=== PATIENT | female | born 1955 | race African-American/Black ===

== ENCOUNTER 2016-10-27 20:13 | Emergency (ER) | payer OTHER ==
[2016-10-27 20:29] VITALS: BP 99/58; PULSE 91; TEMP 97.7; BMI 18.1
[2016-10-27] MEDS ORDERED: guaiFENesin/CODEINE 10 ML UNIT-DOSE CUPS PO ONE (21:45)
[2016-10-27] MEDS ORDERED: guaiFENesin/CODEINE 5 ML UNIT-DOSE CUPS PO ONE (21:50)
--- NOTE | 2016-10-27 21:52 | PDOC ---
History of Present Illness - General Chief Complaint: Cold Symptoms Stated Complaint: COUGH/HEADACHE Time Seen by Provider: 10/27/16 21:32 History Source: Patient - History of Present Illness Timing/Duration: reports: other Associated Symptoms: reports: cough, headache. denies: chest pain/soreness, dizziness, earache, facial pain, fever/chills, lightheadedness, muscle aches, nasal congestion, nasal drainage, sore throat, wheezing Past History - Past Medical History Allergies/Adverse Reactions: Allergies Allergy/AdvReac Type Severity Reaction Status Date / Time Penicillins Allergy Unknown Swelling Verified 10/27/16 20:25 [facility] AdvReac Uncoded 10/27/16 20:25 Home Medications: Ambulatory Orders Ritonavir [Norvir] 100 mg PO DAILY 02/09/16 Albuterol 0.083% Nebulizer Olivia [Ventolin 0.083% Nebulizer Soln -] 1 amp NEB Q4H PRN #120 amp 02/12/16 Nebulizer/Compressor [Innospire Deluxe Caitlyn Neb] 1 each MC Q4H #1 each Loratadine [Claritin -] 10 mg PO DAILY #30 tablet 02/14/16 Beclomethasone Dipropionate [Qvar] 1 puff IH BID #1 aer.w.adap 02/26/16 Clotrimazole [Mycelex -] 10 mg PO 5XD #70 [place]ia [place] carmen 02/26/16 Guaifenesin Dm [Robitussin Dm -] 10 ml PO Q4H PRN #120 cup 02/26/16 Inhaler, Assist Devices [Space Chamber Plus] 1 each MC PRN #1 spacer 02/26/16 Diphenhydramine HCl [Benadryl -] 25 mg PO Q6H #20 capsule 03/11/16 Abacavir Sulfate/Lamivudine [Epzicom Tablet] 1 tablet PO DAILY #30 tablet Darunavir Ethanolate [Prezista -] 800 mg PO DAILY #30 tablet 06/26/16 Lactose-Reduced Food [Ensure Liquid] 237 ml PO BID #60 liquid 06/26/16 Ritonavir [Norvir -] 100 mg PO DAILY #30 tab 06/26/16 Tenofovir Disoproxil Fumarate [Viread] 150 mg PO DAILY #30 tablet 06/26/16 Valacyclovir HCl [Valtrex -] 500 mg PO DAILY #30 tablet 06/26/16 Olanzapine [Zyprexa] 5 mg PO DAILY #30 tablet MDD 1 07/24/16 Zolpidem Tartrate [Ambien] 10 mg PO HS #30 tablet MDD 1 07/24/16 Cyproheptadine [Periactin -] 4 mg PO HS #30 tablet 09/26/16 Guaifenesin Dm [Robitussin Dm] 10 ml PO Q4H #1 bottle 09/26/16 Albuterol Sulfate Inhaler - [Ventolin HFA Inhaler -] 1 - 2 inh PO Q4H #1 inhaler 10/27/16 Guaifenesin AC [Robitussin AC -] 5 ml PO Q4H #473 ml MDD 40ml 10/27/16 Ibuprofen [Motrin -] 800 mg PO Q6H #30 tablet 10/27/16 Anemia: Yes Asthma: No Cancer: No Cardiac Disorders: No CVA: No COPD: Yes CHF: No Dementia: No Diabetes: No GI Disorders: Yes (ANOREXIA,ESOPHAGEAL PROBLEM) Disorders: No HTN: Yes Hypercholesterolemia: No HIV: Yes Liver Disease: No Psychiatric Problems: Yes (ANXIETY) Seizures: No Thyroid Disease: No Other medical history: anorexia - Surgical History Abdominal Surgery: Yes (EXPLORATORY) Appendectomy: No Cardiac Surgery: No Cholecystectomy: No Lung Surgery: No Neurologic Surgery: No Orthopedic Surgery: No - Psycho/Social/Smoking Cessation Hx Anxiety: No Suicidal Ideation: No Smoking Status: No Smoking History: Current some day smoker Have you smoked in the past 12 months: Yes Number of Cigarettes Smoked Daily: 1 If you are a former smoker, when did you quit?: Approx. 2 weeks ago. Cigars Per Day: 0 Information on smoking cessation initiated: No 'Breaking Loose' booklet given: 08/06/15 Hx Alcohol Use: No Drug/Substance Use Hx: No Substance Use Type: None Hx Substance Use Treatment: No Respiratory Specific PMHX - Complaint Specific PMHX Pneumonia: No Review of Systems - Review of Systems Constitutional: No: Chills, Fever HEENTM: No: Blurred Vision, Ear Pain, Throat Pain Respiratory: Yes: Cough. No: Shortness of Breath, Wheezing Cardiac (ROS): No: Chest Pain Neurological: Yes: Headache. No: Dizziness *Physical Exam - Vital Signs Last Vital Signs Temp Pulse Resp BP Pulse Ox 97.7 F 91 H 20 99/58 97 10/27/16 20:27 10/27/16 20:27 10/27/16 20:27 10/27/16 20:27 10/27/16 20:27 - Physical Exam Comments: 10/27/16 21:51 chronically ill appearing, thin female General Appearance: Yes: Appropriately Dressed. No: Apparent Distress HEENT: positive: EOMI, Normal Voice. negative: Scleral Icterus (R), Scleral Icterus (L) Neck: positive: Supple. negative: Lymphadenopathy (R), Lymphadenopathy (L) Respiratory/Chest: positive: Lungs Clear, Normal Breath Sounds. negative: Respiratory Distress, Wheezing Cardiovascular: positive: Regular Rate, S1, S2 Integumentary: positive: Dry, Warm Neurologic: positive: Fully Oriented, Alert, Normal Mood/Affect, Motor Strength 5/5 ED Treatment Course - RADIOLOGY Radiology Studies Ordered: Category Date Time Status HEAD CT WITHOUT CONTRAST [CT] Stat CT Scan 10/27/16 21:45 Ordered Medical Decision Making - Medical Decision Making 10/27/16 21:47 61-year-old female, current every day smoker, COPD, HIV/AIDS, non-compliant with antiretroviral therapy, does not remember her last CD4/viral load, anemia, hypertension, pneumonia, sepsis, presenting with cough. Patient reports productive cough 6 weeks. Denies hemoptysis, wheezing, shortness of breath, fever or chills. States she was seen in the ED at [facility] for same several weeks ago and had negative chest x-ray. States symptoms persist but has not taken anything. States that some point she developed severe headache which is now improving. No dizziness, blurry vision, nausea or vomiting. See exam Cough Neg CXR weeks ago VSS w/ clear chest/lungs Possibly viral but given hx, will rpt CXR today -antitussive in ED [place] Improving now Possibly related to cough but given immunocompromised state, will scan head r/o space occupying lesion No e/o meningismus -pain control in ED 10/27/16 21:52 10/27/16 22:47 CT and CXR negative. pt stable for discharge w/ rxs and PMD f/u *DC/Admit/Observation/Transfer Diagnosis at time of Disposition: Cough Headache Qualifiers: Headache type: unspecified Headache chronicity pattern: acute headache Intractability: not intractable Qualified Code(s): R51 - Headache - Discharge Dispostion Disposition: HOME Condition at time of disposition: Improved - Prescriptions Prescriptions: Ibuprofen [Motrin -] 800 mg PO Q6H #30 tablet Guaifenesin AC [Robitussin AC -] 5 ml PO Q4H #473 ml MDD 40ml Albuterol Sulfate Inhaler - [Ventolin HFA Inhaler -] 1 - 2 inh PO Q4H #1 inhaler - Referrals Referrals: Jamila Ivey MD [Primary Care Provider] - - Patient Instructions Printed Discharge Instructions: DI for Viral Upper Respiratory Infection -- Adult Additional Instructions: Take medications as directed and follow-up with your PMD
== END 2016-10-27 22:56 | disposition home or self-care (01) ==
LOC: JERFT 20:13
DX: J06.9 Acute upper respiratory infection, unspecified (principal); B97.89 Other viral agents as the cause of diseases classified elsewhere; R51 Headache; F17.210 Nicotine dependence, cigarettes, uncomplicated; R63.0 Anorexia; Z68.1 Body mass index [BMI] 19.9 or less, adult; J44.9 Chronic obstructive pulmonary disease, unspecified; I10 Essential (primary) hypertension; Z21 Asymptomatic human immunodeficiency virus [HIV] infection status; F41.9 Anxiety disorder, unspecified
CPT/HCPCS: 70450-TC; 71020-TC; 99281-25

== ENCOUNTER 2017-04-18 12:10 | Emergency (ER) | payer OTHER ==
[2017-04-18 12:17] VITALS: BP 107/78; PULSE 116; TEMP 98.1; BMI 16.0
--- NOTE | 2017-04-18 12:39 | PDOC ---
Attending Attestation - Resident Resident Name: Bossman Paez - HPI HPI: 04/18/17 15:33 Pt presents to the ED complaining of worsening of her subacute atraumatic shoulder and neck pain. Recent negative xray. 04/18/17 16:01 - Physicial Exam PE: 04/18/17 15:46 No deformity, full passive ROM with minimal pain, tenderness over the trapezius muscle. - Medical Decision Making 04/18/17 16:00 Pain resolved with IV valium. Patient is now awake with minimal pain. Will discharge home. Patient already has follow up with orthopedics and pain management.
[2017-04-18] MEDS ORDERED: diazePAM CARPU-JECT 10 MG/2 ML DISP.SYRIN IVPUSH ONE (12:46)
--- NOTE | 2017-04-18 12:46 | PDOC ---
History of Present Illness - General Chief Complaint: Pain Stated Complaint: RT SHOULDER PAIN Time Seen by Provider: 04/18/17 12:31 - History of Present Illness Initial Comments: 04/18/17 12:58 Ms. Monroe is a 61 yo f with a significant past medical history of HIV, Annorexia, COPD who presents to the emergency department with a several week history of severe shoulder pain (R). She has previously been seen by her PCP and a neurologist for this problem. She was instructed to make an appointment with orthopedics for f/u as well but has not made the appt yet. The patient denies chest pain, shortness of breath, headache and dizziness. Denies fever, chills, nausea, vomit, diarrhea and constipation. Denies dysuria, frequency, urgency and hematuria. Allergies: Penicillins Past surgical history: Tonsillectomy, cyst removal from breast/ovary, and prior Social history: Occasional EtOH and tobacco use PMD - Jamila Ivey 04/18/17 13:04 Past History - Past Medical History Allergies/Adverse Reactions: Allergies Allergy/AdvReac Type Severity Reaction Status Date / Time Penicillins Allergy Unknown Swelling Verified 04/18/17 12:14 [facility] AdvReac Uncoded 04/18/17 12:14 Home Medications: Ambulatory Orders Nebulizer/Compressor [Innospire [place] Caitlyn Neb] 1 each MC Q4H #1 each Cyproheptadine [Periactin -] 4 mg PO HS #30 tablet 09/26/16 Nystatin Oral Suspension - [Nystatin Oral Susp 088558 Units/5 ML -] 500,000 units PO Q6HPO #1 bottle 12/08/16 Valacyclovir HCl [Valtrex -] 500 mg PO BID tablet 12/08/16 Albuterol Sulfate Inhaler - [Ventolin HFA Inhaler -] 1 - 2 inh PO Q4H #1 inhaler 02/12/17 Abacavir Sulfate/Lamivudine [Epzicom Tablet] 1 tablet PO DAILY #30 tablet Atovaquone 1,500 mg PO DAILY #300 ml 04/16/17 Darunavir Ethanolate [Prezista -] 800 mg PO DAILY #30 tablet 04/16/17 Lactobacillus Acidophilus [Bacid -] 1 tab PO BID #28 tab 04/16/17 Lactose-Reduced Food [Ensure Original] 237 ml PO TID #90 liquid 04/16/17 Lorazepam 1 mg PO BID #30 tablet MDD 2 04/16/17 Mirtazapine [Remeron -] 15 mg PO DAILY #30 tablet 04/16/17 Olanzapine [Zyprexa] 5 mg PO DAILY #30 tablet MDD 1 04/16/17 Ritonavir [Norvir -] 100 mg PO DAILY #30 tab 04/16/17 Tenofovir Disoproxil Fumarate [Viread -] 300 mg NR DAILY #30 tablet 04/16/17 Anemia: Yes COPD: Yes Diabetes: No GI Disorders: Yes (ANOREXIA,ESOPHAGEAL PROBLEM) HTN: Yes HIV: Yes Liver Disease: No Psychiatric Problems: Yes (ANXIETY) - Surgical History Abdominal Surgery: Yes (EXPLORATORY) - Immunization History Immunization Up to Date: Yes - Psycho/Social/Smoking Cessation Hx Anxiety: No Suicidal Ideation: No Smoking Status: No Smoking History: Current some day smoker Have you smoked in the past 12 months: Yes Number of Cigarettes Smoked Daily: 2 If you are a former smoker, when did you quit?: 2 months ago Cigars Per Day: 0 Information on smoking cessation initiated: No 'Breaking Loose' booklet given: 08/06/15 Hx Alcohol Use: No Drug/Substance Use Hx: No Substance Use Type: None Hx Substance Use Treatment: No Review of Systems - Review of Systems Comments:: 04/18/17 12:59 GENERAL/CONSTITUTIONAL: No fever or chills. No weakness. HEAD, EYES, EARS, NOSE AND THROAT: No change in vision. No ear pain or discharge. No sore throat. CARDIOVASCULAR: No chest pain or shortness of breath RESPIRATORY: No cough, wheezing, or hemoptysis. GASTROINTESTINAL: No nausea, vomiting, diarrhea or constipation. GENITOURINARY: No dysuria, frequency, or change in urination. MUSCULOSKELETAL: +Severe pain at R shoulder with movement. SKIN: No rash NEUROLOGIC: No headache, vertigo, loss of consciousness, or change in strength/ sensation. ENDOCRINE: No increased thirst. No abnormal weight change HEMATOLOGIC/LYMPHATIC: No anemia, easy bleeding, or history of blood clots. ALLERGIC/IMMUNOLOGIC: No hives or skin allergy. *Physical Exam - Vital Signs Last Vital Signs Temp Pulse Resp BP Pulse Ox 98.1 F 116 H 18 107/78 100 04/18/17 12:15 04/18/17 12:15 04/18/17 12:15 04/18/17 12:15 04/18/17 12:15 - Physical Exam Comments: 04/18/17 12:59 GENERAL: Awake, alert, and fully oriented, in no acute distress HEAD: No signs of trauma, normocephalic, atraumatic EYES: PERRLA, EOMI, sclera anicteric, conjunctiva clear ENT: Auricles normal inspection, hearing grossly normal, nares patent, oropharynx clear without exudates. Moist mucosa NECK: Normal ROM, supple, no lymphadenopathy, JVD, or masses LUNGS: No distress, speaks full sentences, clear to auscultation bilaterally HEART: Regular rate and rhythm, normal S1 and S2, no murmurs, rubs or gallops, peripheral pulses normal and equal bilaterally. ABDOMEN: Soft, nontender, normoactive bowel sounds. No guarding, no rebound. No masses EXTREMITIES: +Exam limited by pain. Patient would not allow for full range of motion exam. No evidence of trauma. NEUROLOGICAL: Cranial nerves II through XII grossly intact. Normal speech, normal gait, no focal sensorimotor deficits SKIN: Warm, Dry, normal turgor, no rashes or lesions noted. ED Treatment Course - LABORATORY CBC & Chemistry Diagram: 04/18/17 12:49 04/18/17 12:49 Medical Decision Making - Medical Decision Making 04/18/17 13:18 Patient presenting w/ anxiety and pain. Would not allow full exam but has previously had x-ray showing no fracture or abnormality (brought x-ray report in with her). Given 5mg IV valium for pain/anxiety control. 04/18/17 15:26 Patient took several hour nap after valium and reports pain is now gone. Will d/ c to home for outpatient f/u care. *DC/Admit/Observation/Transfer Diagnosis at time of Disposition: Back pain Qualifiers: Back pain location: back pain in other location Chronicity: chronic Qualified Code(s): M54.9 - Dorsalgia, unspecified - Discharge Dispostion Disposition: HOME - Referrals Referrals: Talha Baca MD [Staff Physician] - - Patient Instructions Additional Instructions: Please follow-up with orthopedic surgeon for management of your shoulder pain. Return to ER if any exacerbation of pain, fever, or other concerning symptoms. - Attestations Physician Attestion: 04/18/17 15:24 I, Dr. Bossman Paez, attest that this document has been prepared under my direction and personally reviewed by me in its entirety. I further attest, that it accurately reflects all work, treatment, procedures and medical decision -making performed by me.
[2017-04-18] MEDS ORDERED: diazePAM CARPU-JECT 10 MG/2 ML DISP.SYRIN ONE (13:23)
[2017-04-18 13:52] LABS: MCH 27.7 pg (25.7-33.7); MCHC 32.8 g/dl (32.0-36.0); MEAN CELL VOLUME 84.4 fl (80-96); MEAN PLT VOLUME 8.4 fl (7.5-11.1); PLATELET COUNT 239 K/MM3 (134-434); RDW 15.5 % (11.6-15.6); WHITE BLOOD COUNT 3.9 K/mm3 (4.0-10.0)
[2017-04-18 14:14] LABS: ALBUMIN 3.9 g/dl (3.4-5.0); ANION GAP 11 (8-16); CALCIUM 8.9 mg/dL (8.5-10.1); CO2 25 mmol/L (21-32); CREATININE 1.1 mg/dL (0.55-1.02); GLUCOSE,RANDOM 83 mg/dL (74-106); SGOT/AST 40 U/L (15-37); SGPT/ALT 77 U/L (12-78)
[2017-04-18 14:16] LABS: ALK PHOS 81 U/L (45-117); BILIRUBIN,TOTAL 0.9 mg/dL (0.2-1.0); TOT PROT 8.4 g/dl (6.4-8.2)
[2017-04-18 15:33] LABS: PLATELET ESTIMATE ADEQUATE (NORMAL)
== END 2017-04-18 15:53 | disposition home or self-care (01) ==
LOC: JER 12:10
PROC: 3E033NZ Introduction of Analgesics, Hypnotics, Sedatives into Peripheral Vein, Percutaneous Approach (ICD-10-PCS; principal; 2017-04-18)
DX: M54.9 Dorsalgia, unspecified (principal); F17.210 Nicotine dependence, cigarettes, uncomplicated
CPT/HCPCS: 36415; 80053; 85025; 99282-25

== ENCOUNTER 2017-06-01 08:45 | Inpatient (IN) | payer OTHER ==
[2017-06-01] MEDS ORDERED: DEXTROSE 5%-0.45% SALINE 1,000 ML IV SCH (09:30)
--- NOTE | 2017-06-01 10:01 | PDOC ---
History of Present Illness - General Chief Complaint: Respiratory Stated Complaint: SOB Time Seen by Provider: 06/01/17 09:00 History Source: Patient - History of Present Illness Timing/Duration: other Associated Symptoms: reports: cough, shortness of breath. denies: chest pain, nausea/vomiting Past History - Past Medical History Allergies/Adverse Reactions: Allergies Allergy/AdvReac Type Severity Reaction Status Date / Time Penicillins Allergy Unknown Swelling Verified 06/01/17 09:17 [facility] AdvReac Uncoded 06/01/17 09:17 Home Medications: Ambulatory Orders Cyproheptadine [Periactin -] 4 mg PO HS #30 tablet 09/26/16 Nystatin Oral Suspension - [Nystatin Oral Susp 747483 Units/5 ML -] 500,000 units PO Q6HPO #1 bottle 12/08/16 Valacyclovir HCl [Valtrex -] 500 mg PO BID tablet 12/08/16 Albuterol Sulfate Inhaler - [Ventolin HFA Inhaler -] 1 - 2 inh PO Q4H #1 inhaler 02/12/17 Abacavir Sulfate/Lamivudine [Epzicom Tablet] 1 tablet PO DAILY #30 tablet Atovaquone 1,500 mg PO DAILY #300 ml 04/16/17 Darunavir Ethanolate [Prezista -] 800 mg PO DAILY #30 tablet 04/16/17 Lactobacillus Acidophilus [Bacid -] 1 tab PO BID #28 tab 04/16/17 Lactose-Reduced Food [Ensure Original] 237 ml PO TID #90 liquid 04/16/17 Lorazepam 1 mg PO BID #30 tablet MDD 2 04/16/17 Mirtazapine [Remeron -] 15 mg PO DAILY #30 tablet 04/16/17 Olanzapine [Zyprexa] 5 mg PO DAILY #30 tablet MDD 1 04/16/17 Ritonavir [Norvir -] 100 mg PO DAILY #30 tab 04/16/17 Tenofovir Disoproxil Fumarate [Viread -] 300 mg NR DAILY #30 tablet 04/16/17 Anemia: Yes COPD: Yes Diabetes: No GI Disorders: Yes (ANOREXIA,ESOPHAGEAL PROBLEM) HTN: Yes Liver Disease: No Psychiatric Problems: Yes (ANXIETY) - Surgical History Abdominal Surgery: Yes (EXPLORATORY) - Immunization History Immunization Up to Date: Yes - Suicide/Smoking/Psychosocial Hx Smoking Status: No Smoking History: Never smoked Have you smoked in the past 12 months: Yes Number of Cigarettes Smoked Daily: 2 If you are a former smoker, when did you quit?: 2 months ago Cigars Per Day: 0 Information on smoking cessation initiated: No 'Breaking Loose' booklet given: 08/06/15 Hx Alcohol Use: No Drug/Substance Use Hx: No Substance Use Type: None Hx Substance Use Treatment: No Review of Systems - Review of Systems Constitutional: Yes: Weakness. No: Chills, Fever Respiratory: Yes: Cough, Shortness of Breath. No: Wheezing Cardiac (ROS): No: Chest Pain, Palpitations ABD/GI: No: Nausea, Vomiting, Abdominal cramping *Physical Exam - Vital Signs Last Vital Signs Temp Pulse Resp BP Pulse Ox 99.4 F 102 H 24 102/95 100 06/01/17 08:45 06/01/17 08:45 06/01/17 08:45 06/01/17 08:45 06/01/17 08:45 - Physical Exam Comments: 06/01/17 10:02 cachetic, chronically ill apearing female General Appearance: Yes: Appropriately Dressed HEENT: positive: Normal Voice Neck: positive: Supple Respiratory/Chest: positive: Lungs Clear, Normal Breath Sounds. negative: Respiratory Distress, Wheezing Cardiovascular: positive: S1, S2, Tachycardia Gastrointestinal/Abdominal: positive: Soft. negative: Tender Integumentary: positive: Dry, Warm Neurologic: positive: Fully Oriented, Alert, Normal Mood/Affect ED Treatment Course - LABORATORY CBC & Chemistry Diagram: 06/01/17 10:53 06/01/17 10:53 Medical Decision Making - Medical Decision Making 06/01/17 09:25 62 yo F, h/o HIV/AIDs, non-compliant w/ meds, CD4 81 in 2015, unknown VL, COPD, not on oxygen, lifelong anorexia nervosa, f/u w/ psych, here w/ multiple complaints including worsening sob x 2 weeks and states she's unable to speak in full sentences. Does not feel like her COPD per pt. Does have a cough but no wheezing, f/c. States she has not eaten in approximately one week but does drink Ensure frequently which causes her diarrhea. Complaining of profound weakness at this time. Patient also complaining of multiple stressors at home including recent of mother and states sister currently in ICU after being hit by a car See exam SOB ?COPD vs PNA, less likely ACS as no CP, unlikely PE -ekg -cxr -labs Dehydration M/l combination of HIV and anorexia -IVF -labs 06/01/17 10:03 06/01/17 11:56 06/01/17 11:56 06/01/17 12:18 L hilar infiltrate as per radiology. Will treat w/ levaquin as pen allergic. CXR not c/w PCP, LDH pending. Will admit at this time 06/01/17 12:32 06/01/17 13:26 06/01/17 13:38 Case d/w Dr Contreras and pt admitted *DC/Admit/Observation/Transfer Diagnosis at time of Disposition: Dehydration Pneumonia Qualifiers: Pneumonia type: due to unspecified organism Laterality: unspecified laterality Lung location: unspecified part of lung Qualified Code(s): J18.9 - Pneumonia, unspecified organism - Discharge Dispostion Condition at time of disposition: Fair Admit: Yes
[2017-06-01] MEDS ORDERED: LIDOCAINE HCL 1%, 10 MG/ML (50 mL VIAL) SQ ONE (10:12)
[2017-06-01] MEDS ORDERED: LIDOCAINE HCL/PF 1% SDV 5ML VIAL ONE (10:33)
--- NOTE | 2017-06-01 10:53 | EKG ---
Test Reason : Blood Pressure : / mmHG Vent. Rate : 103 BPM Atrial Rate : 103 BPM P-R Int : 148 ms QRS Dur : 076 ms QT Int : 350 ms P-R-T Axes : 076 085 086 degrees QTc Int : 458 ms SINUS TACHYCARDIA OTHERWISE NORMAL ECG WHEN COMPARED WITH ECG OF 27-NOV-2016 18:00, NONSPECIFIC T WAVE ABNORMALITY NO LONGER EVIDENT IN ANTERIOR LEADS Confirmed by ROBY ARRINGTON MD ([id number]) on 06/01/2017 10:52:35 AM Referred By: Confirmed By:ROBY ARRINGTON MD
[2017-06-01 11:03] LABS: BASOPHIL 0.7 % (0-2.0); MCH 27.2 pg (25.7-33.7); MCHC 32.9 g/dl (32.0-36.0); MEAN CELL VOLUME 82.8 fl (80-96); MEAN PLT VOLUME 8.4 fl (7.5-11.1); NEUTROPHILS 73.4 % (42.8-82.8); PLATELET COUNT 217 K/MM3 (134-434)
[2017-06-01 11:25] LABS: ALBUMIN 3.2 g/dl (3.4-5.0); ANION GAP 6 (8-16); BILIRUBIN,TOTAL 0.6 mg/dL (0.2-1.0); CALCIUM 8.5 mg/dL (8.5-10.1); CO2 28 mmol/L (21-32); GLUCOSE,RANDOM 79 mg/dL (74-106); SGOT/AST 36 U/L (15-37); SGPT/ALT 21 U/L (12-78)
[2017-06-01 11:26] LABS: ALK PHOS 58 U/L (45-117); CPK 37 IU/L (26-192); TROPONIN I < 0.02 ng/ml (0.00-0.05)
[2017-06-01 11:45] LABS: INR 1.07 (0.82-1.09); PROTHROMBIN TIME (PATIENT) 11.8 SEC (9.98-11.88)
[2017-06-01] MEDS ORDERED: LEVOFLOXACIN 750 MG IVPB 150 ML IVPB ONE ×2 (12:31→16:30)
[2017-06-01] MEDS ORDERED: LIDOCAINE HCL 1%, 10 MG/ML (20ML VIAL) ONE (12:37)
[2017-06-01] MEDS ORDERED: cefTRIAXone 1 GM/50 ML BAG (PRE-DOCKED) IVPB SCH (16:30)
--- NOTE | 2017-06-01 16:43 | PN ---
Progress Note (short form) - Note Progress Note: ID consult dictated seen in ED 62 year old female with HIV/AIDS by ernie- last cd4 count of 81, history of anorexia since childhood as well history of cryptosporidium as well, last admitted in November with chronic cough and abnl lfts- sputum with MAC no TB and abnl LFTs- liver biopsy c/w drug induced hepatitis and blood culture negative for MAC- she resumed meds after discharge home adherance with meds is at best intermittent recently lost her mother and her sister was in the ICU (hit by car) she has been crying daily and has not eaten sold food in 5 days- drinks water stopped ensure too last time she weighed her self was 2 weeks ago she was 102 pounds no diarrhea +chills +cough no hemoptysis labs notable for elevated LDH cxray with left perihilar infiltrate AIDS Pneumonia anorexia suggest blood cultures chest ct no contrast r/o PCP rocephin -tolerates cephalosporins although remote history of pen allergy mepron 750 bid legionella urinary antigen sputum culture psychiatry consult Problem List - Problems (1) Pneumonia Code(s): J18.9 - PNEUMONIA, UNSPECIFIED ORGANISM Qualifiers: Pneumonia type: due to unspecified organism Laterality: unspecified laterality Lung location: unspecified part of lung Qualified Code(s): J18.9 - Pneumonia, unspecified organism (2) Anorexia nervosa Code(s): F50.00 - ANOREXIA NERVOSA, UNSPECIFIED (3) AIDS Code(s): B20 - HUMAN IMMUNODEFICIENCY VIRUS [HIV] DISEASE
[2017-06-01] MEDS ORDERED: CEFTRIAXONE 1 GM in DEXTROSE 5%-WATER - 50 ML IVPB SCH (16:45)
--- NOTE | 2017-06-01 18:04 | HP ---
CHIEF COMPLAINT: cough PCP: Dr. Ivey HISTORY OF PRESENT ILLNESS: 62 year old femalw with a past medical history of HIV/AIDS, hx of crytosporidium , COPD, herpes, depression, anorexia, presents to the emergency room with worsening shortness of breath and productive cough with yellow/green non bloody sputum production (filling half cup per day). Patient states that her symptoms started about five days ago, she could not breath any longer which prompted her to come to the ER. She denies fever, chills, sore throat , n, v, abdominal pain , changes in bowel or bladder. Ms. Monroe follows up at [facility] for HIV/ AID, she has not been fully compliant with her medications lately. Her last documented CD4 was 69 (04/23). She has suffered a loss of her sister recently and has been depressed. Patient also states that she has not eaten in five days. Last hospital admission to [facility] was 11/2016 for cough and transaminitis. Work up was negative for TB, blood culture negative for MAC, (MAC in sputum). Liver biopsy indicated drug induced hepatitis. In the ER patient patient was tachypniec, tachycardic, temp 99.4. CXR showing left hilar infiltrate vs left middle lobe mass. LD elevated >700. She was started on rocephin. Recent Travel: no PAST MEDICAL HISTORY: HIV/AIDS, Anorexia, Depression, Herpes, cryptosporidium, COPD PAST SURGICAL HISTORY: Social History: Smoking:former smoker, started at 14 ; quit 5 months ago; number of daily cigs vary Alcohol:no Drugs: no Family History: Allergies Penicillins Allergy (Unknown, Verified 06/01/17 09:17) Swelling MAYONAISE Adverse Reaction (Uncoded 06/01/17 09:17) HOME MEDICATIONS: Home Medications Medication Instructions Recorded Cyproheptadine [Periactin -] 4 mg PO HS #30 tablet 09/26/16 Nystatin Oral Suspension - 500,000 units PO Q6HPO #1 bottle 12/08/16 [Nystatin Oral Susp 921935 Units/5 ML -] Valacyclovir HCl [Valtrex -] 500 mg PO BID tablet 12/08/16 Albuterol Sulfate Inhaler - 1 - 2 inh PO Q4H #1 inhaler 02/12/17 [Ventolin HFA Inhaler -] Abacavir Sulfate/Lamivudine 1 tablet PO DAILY #30 tablet 04/16/17 [Epzicom Tablet] Atovaquone 1,500 mg PO DAILY #300 ml 04/16/17 Darunavir Ethanolate [Prezista -] 800 mg PO DAILY #30 tablet 04/16/17 Lactobacillus Acidophilus [Bacid -] 1 tab PO BID #28 tab 04/16/17 Lactose-Reduced Food [Ensure 237 ml PO TID #90 liquid 04/16/17 Original] Lorazepam 1 mg PO BID #30 tablet MDD 2 04/16/17 Mirtazapine [Remeron -] 15 mg PO DAILY #30 tablet 04/16/17 Olanzapine [Zyprexa] 5 mg PO DAILY #30 tablet MDD 1 04/16/17 Ritonavir [Norvir -] 100 mg PO DAILY #30 tab 04/16/17 Tenofovir Disoproxil Fumarate 300 mg NR DAILY #30 tablet 04/16/17 [Viread -] REVIEW OF SYSTEMS CONSTITUTIONAL: Positive:generalized weakness, malaise, loss of appetite, weight change Absent: fever, chills, diaphoresis, HEENT: Absent: rhinorrhea, nasal congestion, throat pain, throat swelling, difficulty swallowing, mouth swelling, ear pain, eye pain, visual changes CARDIOVASCULAR: Absent: chest pain, syncope, palpitations, irregular heart rate, lightheadedness , peripheral edema RESPIRATORY: Positive:cough, shortness of breath, dyspnea with exertion, Absent: orthopnea, wheezing, stridor, hemoptysis GASTROINTESTINAL: Absent: abdominal pain, abdominal distension, nausea, vomiting, diarrhea, constipation, melena, hematochezia GENITOURINARY: Absent: dysuria, frequency, urgency, hesitancy, hematuria, flank pain, genital pain MUSCULOSKELETAL: Absent: myalgia, arthralgia, joint swelling, back pain, neck pain SKIN: Absent: rash, itching, pallor HEMATOLOGIC/IMMUNOLOGIC: Absent: easy bleeding, easy bruising, lymphadenopathy, frequent infections ENDOCRINE: Absent: unexplained weight gain, unexplained weight loss, heat intolerance, cold intolerance NEUROLOGIC: Absent: headache, focal weakness or paresthesias, dizziness, unsteady gait, seizure, mental status changes, bladder or bowel incontinence PSYCHIATRIC: Positive: depression Absent: anxiety, suicidal or homicidal ideation, hallucinations. PHYSICAL EXAMINATION Vital Signs - 24 hr 06/01/17 06/01/17 14:10 14:58 Temperature 98.3 F Pulse Rate [ 87 86 Apical] Respiratory 18 18 Rate Blood Pressure 98/68 100/62 [Left] O2 Sat by Pulse 98 98 Oximetry (%) GENERAL: Fraile, Awake, alert, and fully oriented, sitting up in bed on @L NC, short of breath with talking HEAD: Normal with no signs of trauma. EYES: Pupils equal, round and reactive to light, extraocular movements intact, sclera anicteric, conjunctiva clear. No lid lag. EARS, NOSE, THROAT: Ears normal, nares patent, oropharynx clear without exudates. Moist mucous membranes. NECK: Normal range of motion, supple without lymphadenopathy, JVD, or masses. LUNGS: Breath sounds equal, + crackles middle and lower left lobe, does no0t clear with cough HEART: Regular rate and rhythm, normal S1 and S2 without murmur, rub or gallop. ABDOMEN: Soft, nontender, not distended, normoactive bowel sounds, no guarding, no rebound, no masses. No hepatomegaly or splenomegaly. MUSCULOSKELETAL: Normal range of motion at all joints. No bony deformities or tenderness. No CVA tenderness. UPPER EXTREMITIES: 2+ pulses, warm, well-perfused. No cyanosis. No clubbing. No peripheral edema. LOWER EXTREMITIES: 2+ pulses, warm, well-perfused. No calf tenderness. No peripheral edema. NEUROLOGICAL: Cranial nerves II-XII intact. Normal speech. Normal gait. PSYCHIATRIC: Cooperative. Good eye contact. Appropriate mood and affect. SKIN: Warm, dry, normal turgor, no rashes or lesions noted, normal capillary refill. ASSESSMENT/PLAN: This is a 62 year old female with a past medical history of HIV/AIDS, non compliant with medications, presents with cough and shortness of breath, admitted for pneumonia. Will also treat prophylactically for PCP due to LDH and low CD4. Chest CT to rule out other etiology including lung mass. #Community acquired pneumonia; r/o PCP: -possible sepsis; admission RR> 22 and systolic <100; will get lactic acid -obtain IV access -IVF -start rocephin -mepron for PCP prophylaxis -CXR showing hilar vs mass; CT scan -ID consulted -consider pulmonary consult #HIV/AIDS: -Continue all HIV home meds after patient has tolerated a regular diet #COPD: -cont 2L NC keep o2 >88 -duonebs prn #normocytic anemia: -iron studies -baseline H/H #elevated lipase, most likely medication induced; trend #Anorexia: -regular diet; cont ensure -nutrition consult -cont zyprexia to assist with appetite #Depression: -cont zyprexia and remeron Problem List - Problem (1) Pneumonia Code(s): J18.9 - PNEUMONIA, UNSPECIFIED ORGANISM Qualifiers: Pneumonia type: due to unspecified organism Laterality: unspecified laterality Lung location: unspecified part of lung Qualified Code(s): J18.9 - Pneumonia, unspecified organism (2) Anemia Code(s): D64.9 - ANEMIA, UNSPECIFIED Qualifiers: Other causes of anemia: chronic disease, other (3) Cough Code(s): R05 - COUGH (4) Herpes Code(s): B00.9 - HERPESVIRAL INFECTION, UNSPECIFIED (5) AIDS Code(s): B20 - HUMAN IMMUNODEFICIENCY VIRUS [HIV] DISEASE (6) Anorexia nervosa Code(s): F50.00 - ANOREXIA NERVOSA, UNSPECIFIED Visit type - Emergency Visit Emergency Visit: Yes ED Registration Date: 06/01/17 Care time: The patient presented to the Emergency Department on the above date and was hospitalized for further evaluation of their emergent condition. - New Patient This patient is new to me today: Yes Date on this admission: 06/01/17 - Critical Care Critical Care patient: No
[2017-06-01 19:01] VITALS: BMI 13.6
[2017-06-01] MEDS ORDERED: FLU VACCINE QUAD 60 MCG/0.5 ML (MDV 17-18) IM ONE (19:01)
[2017-06-01 19:02] LABS: URINE APPEARANCE SLCLOUDY; URINE BILIRUBIN NEGATIVE (NEGATIVE); URINE BLOOD NEGATIVE (NEGATIVE); URINE COLOR DKYELLOW; URINE GLUCOSE (UA) NEGATIVE (NEGATIVE); URINE KETONE TRACE (NEGATIVE); URINE NITRITE NEGATIVE (NEGATIVE); URINE UROBILINOGEN NEGATIVE mg/dL (0.2-1.0)
[2017-06-01 19:05] LABS: URINE LEUK ESTERASE 2+ (NEGATIVE); URINE PROTEIN 1+ (NEGATIVE)
[2017-06-01 19:12] LABS: GRANULAR CASTS 1 /lpf; URINE BACTERIA RARE /hpf (NONE SEEN); URINE MUCUS RARE; URINE RBC 2 /hpf (0-3); URINE WBC 30 /hpf (3-5)
[2017-06-01] MEDS ORDERED: THIAMINE HCL 100 MG TABLET (FP) PO ONE ×2 (19:19→22:00)
[2017-06-01] MEDS ORDERED: ALBUTEROL SO4 2.5/IPRATROPIUM 0.5 INH SOL 3 ML VIAL.NEB. NEB PRN (19:25)
--- NOTE | 2017-06-01 19:37 | PN ---
Teaching Attending Note Name of Resident: Mynor Ortega ATTENDING PHYSICIAN STATEMENT I saw and evaluated the patient. I reviewed the resident's note and discussed the case with the resident. I agree with the resident's findings and plan as documented. SUBJECTIVE: complains of cough x 2-3 weeks , which has gotten worse, with fever and chils. no sputum production . LUQ pain with cough only. no sick contact. intermittently compliant with her meds OBJECTIVE: NAD, MMM, thin, AAOx3 ad pleasant CV : RRR, no MRG Lungs: crackles at L middle and lower lung lopez Ext: no edema , or erythema . no rash Abd : soft, mildly tender LUQ , no rebound tenderness or guarding , NL BS . 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 She was found to have L sided PNA 1- CAP with sepsis : - cont ceftriaxone - atovaquone - appreciate Dr. tacos Granados. CT of chest - follow blood cx and sputum cx -LDH elevated . follwo CT results - IVF D5NS . give thiamine and chck phos before starting D5NS to avoid refeedig sx 2- Normocytic anemia : previously had evidence of ACD with very elevated ferritin liver Bx was neg for hemochromatosis - repeat iron studies , B12 , folat 3- AIDs: cont meds 4- HLOC
--- NOTE | 2017-06-01 20:02 | HP ---
CHIEF COMPLAINT: Worsening SOB x 2 weeks PCP: Dr. Ivey HISTORY OF PRESENT ILLNESS: 62F w/ hx of HIV/AIDS (non-adherent on HAART therapy, last CD4 of 61 on 04/16, unknown viral load), anorexia nervosa, and COPD presenting with 2 weeks of worsening SOB. Pt reports that she has SOB at baseline, but it began worsening about 2 weeks ago, present at rest. She also endorses a productive cough with thick, yellow/green sputum w/ an associated sore throat and left lower rib pain upon coughing. In addition, she endorses subjective fevers, chills, diaphoresis , generalized weakness leading to an unsteady gait, and decreased PO intake. She denies any preceding viral symptoms, wheezing, chest pain, abdominal pain, n /v/d/c, and dysuria. She states that she has a good appetite, but she only likes ensure, and she has had problems getting it shipped to her apartment. ER course was notable for: (1) tachycardia and tachypnea meeting criteria for sepsis (2) LDH of 704 (3) CXR showing a L hilar infiltrate Recent Travel: PAST MEDICAL HISTORY: HIV/AIDS Anorexia Nervosa Anemia COPD Depression Anxiety PAST SURGICAL HISTORY: tonsillectomy breast cyst excision-benign x 1 Social History: Smoking: denies Alcohol: denies Drugs: denies Family History: Allergies Penicillins Allergy (Unknown, Verified 06/01/17 09:17) Swelling MAYONAISE Adverse Reaction (Uncoded 06/01/17 09:17) HOME MEDICATIONS: Home Medications Medication Instructions Recorded Cyproheptadine [Periactin -] 4 mg PO HS #30 tablet 09/26/16 Nystatin Oral Suspension - 500,000 units PO Q6HPO #1 bottle 12/08/16 [Nystatin Oral Susp 868268 Units/5 ML -] Valacyclovir HCl [Valtrex -] 500 mg PO BID tablet 12/08/16 Albuterol Sulfate Inhaler - 1 - 2 inh PO Q4H #1 inhaler 02/12/17 [Ventolin HFA Inhaler -] Abacavir Sulfate/Lamivudine 1 tablet PO DAILY #30 tablet 04/16/17 [Epzicom Tablet] Atovaquone 1,500 mg PO DAILY #300 ml 04/16/17 Darunavir Ethanolate [Prezista -] 800 mg PO DAILY #30 tablet 04/16/17 Lactobacillus Acidophilus [Bacid -] 1 tab PO BID #28 tab 04/16/17 Lactose-Reduced Food [Ensure 237 ml PO TID #90 liquid 04/16/17 Original] Lorazepam 1 mg PO BID #30 tablet MDD 2 04/16/17 Mirtazapine [Remeron -] 15 mg PO DAILY #30 tablet 04/16/17 Olanzapine [Zyprexa] 5 mg PO DAILY #30 tablet MDD 1 04/16/17 Ritonavir [Norvir -] 100 mg PO DAILY #30 tab 04/16/17 Tenofovir Disoproxil Fumarate 300 mg NR DAILY #30 tablet 04/16/17 [Viread -] REVIEW OF SYSTEMS CONSTITUTIONAL: Absent: malaise, loss of appetite, weight change Present: fever, chills, diaphoresis, generalized weakness HEENT: Absent: rhinorrhea, nasal congestion, throat swelling, difficulty swallowing, mouth swelling, ear pain, eye pain, visual changes Present: throat pain CARDIOVASCULAR: Absent: chest pain, syncope, palpitations, irregular heart rate, lightheadedness , peripheral edema RESPIRATORY: Absent: orthopnea, wheezing, stridor, hemoptysis Present: cough, shortness of breath, dyspnea with exertion, GASTROINTESTINAL: Absent: abdominal pain, abdominal distension, nausea, vomiting, diarrhea, constipation, melena, hematochezia GENITOURINARY: Absent: dysuria, frequency, urgency, hesitancy, hematuria, flank pain, genital pain MUSCULOSKELETAL: Absent: myalgia, arthralgia, joint swelling, back pain, neck pain SKIN: Absent: rash, itching, pallor HEMATOLOGIC/IMMUNOLOGIC: Absent: easy bleeding, easy bruising, lymphadenopathy, frequent infections ENDOCRINE: Absent: unexplained weight gain, unexplained weight loss, heat intolerance, cold intolerance NEUROLOGIC: Absent: headache, focal weakness or paresthesias, dizziness, seizure, mental status changes, bladder or bowel incontinence Present: unsteady gait PSYCHIATRIC: Absent: suicidal or homicidal ideation, hallucinations. Present: anxiety, depression PHYSICAL EXAMINATION Vital Signs - 24 hr 06/01/17 06/01/17 06/01/17 14:10 14:58 18:57 Temperature 98.3 F 97.8 F Pulse Rate 87 Pulse Rate [ 87 86 65 Apical] Respiratory 18 18 18 Rate Blood Pressure 98/68 Blood Pressure 98/68 100/62 103/54 [Left] O2 Sat by Pulse 98 98 98 Oximetry (%) GENERAL: middle aged female, emaciated, pleasant, awake, alert, and fully oriented, in no acute distress, coughing. HEAD: Normal with no signs of trauma. EYES: Pupils equal, round and reactive to light, extraocular movements intact, sclera anicteric, conjunctiva clear. No lid lag. EARS, NOSE, THROAT: no thrush NECK: Normal range of motion, supple without lymphadenopathy, JVD, or masses. LUNGS: decreased breath sounds b/l, no wheezing, rales, or rhonchi appreciated HEART: Regular rate and rhythm, normal S1 and S2 without murmur, rub or gallop. ABDOMEN: soft, minimally tender in LUQ upon palpation, ND, no organomegaly MUSCULOSKELETAL: Normal range of motion at all joints. No bony deformities or tenderness. No CVA tenderness. UPPER EXTREMITIES: 2+ pulses, warm, well-perfused. No cyanosis. No clubbing. No peripheral edema. LOWER EXTREMITIES: 2+ pulses, warm, well-perfused. No calf tenderness. No peripheral edema. NEUROLOGICAL: Cranial nerves II-XII intact. Normal speech. gait not observed SKIN: Warm, dry, normal turgor, no rashes or lesions noted, normal capillary refill. Laboratory Tests 06/01/17 06/01/17 06/01/17 10:53 10:53 10:53 WBC 4.0 RBC 3.58 L Hgb 9.7 L D Hct 29.6 L MCV 82.8 MCH 27.2 MCHC 32.9 RDW 14.0 Plt Count 217 MPV 8.4 Neutrophils % 73.4 D Lymphocytes % 7.4 L D Monocytes % 18.5 H Eosinophils % 0.0 D Basophils % 0.7 PT with INR 11.80 INR 1.07 Sodium 134 L Potassium 4.0 Chloride 100 Carbon Dioxide 28 Anion Gap 6 L BUN 16 Creatinine 1.0 Creat Clearance w eGFR 56.37 Random Glucose 79 Calcium 8.5 Total Bilirubin 0.6 D AST 36 ALT 21 D Alkaline Phosphatase 58 D LD Total Creatine Kinase 37 Troponin I < 0.02 Total Protein 8.0 Albumin 3.2 L Lipase 446 H Urine Color Urine Appearance Urine pH Urine Protein Urine Glucose (UA) Urine Ketones Urine Blood Urine Nitrite Urine Bilirubin Urine Urobilinogen Urine RBC Urine WBC Ur Epithelial Cells Urine Bacteria Granular Casts Urine Mucus Blood Type Antibody Screen 06/01/17 06/01/17 06/01/17 10:54 12:35 13:00 WBC RBC Hgb Hct MCV MCH MCHC RDW Plt Count MPV Neutrophils % Lymphocytes % Monocytes % Eosinophils % Basophils % PT with INR INR Sodium Potassium Chloride Carbon Dioxide Anion Gap BUN Creatinine Creat Clearance w eGFR Random Glucose Calcium Total Bilirubin AST ALT Alkaline Phosphatase LD Total 704 H D Cancelled Creatine Kinase Troponin I Total Protein Albumin Lipase Urine Color Urine Appearance Urine pH Urine Protein Urine Glucose (UA) Urine Ketones Urine Blood Urine Nitrite Urine Bilirubin Urine Urobilinogen Urine RBC Urine WBC Ur Epithelial Cells Urine Bacteria Granular Casts Urine Mucus Blood Type O POSITIVE Antibody Screen Negative 06/01/17 18:38 WBC RBC Hgb Hct MCV MCH MCHC RDW Plt Count MPV Neutrophils % Lymphocytes % Monocytes % Eosinophils % Basophils % PT with INR INR Sodium Potassium Chloride Carbon Dioxide Anion Gap BUN Creatinine Creat Clearance w eGFR Random Glucose Calcium Total Bilirubin AST ALT Alkaline Phosphatase LD Total Creatine Kinase Troponin I Total Protein Albumin Lipase Urine Color Dkyellow Urine Appearance Slcloudy Urine pH 5.0 Urine Protein 1+ H Urine Glucose (UA) Negative Urine Ketones Trace H Urine Blood Negative Urine Nitrite Negative Urine Bilirubin Negative Urine Urobilinogen Negative Urine RBC 2 Urine WBC 30 Ur Epithelial Cells Rare Urine Bacteria Rare Granular Casts 1 Urine Mucus Rare Blood Type Antibody Screen CXR: L hilar infiltrate w/ possible consolidation vs. mass in posterior left mid lung ASSESSMENT/PLAN: 62F w/ hx of HIV/AIDS (non-adherent on HAART therapy, last CD4 of 61 on 04/16, unknown viral load), anorexia nervosa, and COPD who presented with 2 weeks of worsening SOB, productive cough, fevers, chills, and weakness, found to have tachypnea, tachycardia, an elevated LDH of 704, and a CXR showing a left hilar infiltrate, admitted for sepsis likely 2/2 CAP. #Sepsis- tachycardia, tachypnea -likely 2/2 CAP. less likely PCP as CXR does not show b/l ground glass opacities -ID on board- Dr. Ivey, appreciated recs -started rocephin, mepron 750mg BID, O2 via NC, duonebs q4h PRN. Administered one dose of thiamine 200mg -f/u CT chest w/o contrast to rule out PCP and clarify consolidation vs. mass in posterior left mid lung -f/u Bcx, Urine legionella -f/u lactic acid -start D5/NS at 50cc/hr if Mg and Ph are wnl #Anorexia Nervosa -regular diet, Ensure -peritoneal dialysis registered nurse consult #AIDS -restart HAART therapy once tolerating regular diet #Anemia -f/u iron studies, B12, folate #Depression/Anxiety -continue home remeron and zyprexa #FEN/PPx -start D5/NS at 50cc/hr if Mg and Ph are wnl -wnl -regular diet -no GI ppx indicated -lovenox 40 Mynor Ortega MD PGY1 Visit type - Emergency Visit Emergency Visit: Yes ED Registration Date: 06/01/17 Care time: The patient presented to the Emergency Department on the above date and was hospitalized for further evaluation of their emergent condition. - New Patient This patient is new to me today: Yes Date on this admission: 06/01/17 - Critical Care Critical Care patient: No
[2017-06-01] MEDS: MIRTAZAPINE 15 MG TABLET (FP) PO SCH (22:03)
[2017-06-01] MEDS: ATOVAQUONE 750 MG/5 ML (UNIT-DOSE PACKAGING) PO SCH (22:03)
[2017-06-01] MEDS: OLANZapine 5 MG TABLET PO SCH (22:12)
[2017-06-01 22:39] LABS: MAGNESIUM 2.4 mg/dL (1.8-2.4); PHOSPHOROUS 2.7 mg/dL (2.5-4.9)
[2017-06-01] MEDS ORDERED: cefTRIAXone SODIUM 1 GM VIAL ONE (22:53)
[2017-06-01] MEDS ORDERED: DEXTROSE 5%-WATER - 50 ML IVPB ONE (22:53)
[2017-06-01] MEDS: CEFTRIAXONE 1 GM in DEXTROSE 5%-WATER - 50 ML IVPB SCH (23:06)
[2017-06-01] MEDS ORDERED: DEXTROSE 5%-NORMAL SALINE 1,000 ML IV SCH (23:45)
[2017-06-02 07:28] LABS: MCH 27.2 pg (25.7-33.7); MCHC 32.5 g/dl (32.0-36.0); MEAN CELL VOLUME 83.5 fl (80-96); MEAN PLT VOLUME 8.5 fl (7.5-11.1); PLATELET COUNT 205 K/MM3 (134-434); RDW 14.1 % (11.6-15.6); WHITE BLOOD COUNT 3.9 K/mm3 (4.0-10.0)
[2017-06-02 08:46] LABS: CALCIUM 8.2 mg/dL (8.5-10.1); CO2 26 mmol/L (21-32); CREATININE 0.8 mg/dL (0.55-1.02); GLUCOSE,RANDOM 100 mg/dL (74-106); MAGNESIUM 2.3 mg/dL (1.8-2.4); PHOSPHOROUS 3.4 mg/dL (2.5-4.9)
[2017-06-02] MEDS ORDERED: PT OWN MED DRAWER 7, Y5N ONE ×6 (08:54→18:15)
[2017-06-02 09:02] LABS: TOTAL CELLS COUNTED 100
--- NOTE | 2017-06-02 09:11 | CONS ---
INFECTIOUS DISEASE CONSULTATION DATE OF CONSULTATION: 06/01/2017 REQUESTING PHYSICIAN: The hospitalist service. HISTORY OF PRESENT ILLNESS: This is a 62-year-old woman I know well from clinic as she has been in intermittent care with me. She is followed at the [facility]. She has a history of HIV, AIDS by T cell (last CD4 count of 81), history of anorexia nervosa since childhood. She has a history of cryptosporidium as well. She was last admitted in November for a prolonged admission with chronic cough and abnormal LFTs. She was in respiratory isolation. Sputums grew MAC. There was no TB. She had abnormal LFTs and had a liver biopsy consistent with drug-induced hepatitis. Blood cultures were negative for MAC at that time as well as the liver cultures as well. She resumed medications after discharge home. Her adherence with medications is , at best, intermittent. I last saw her in April. At which point, she weighed 114 pounds. She was adherent with her medicine, complaining of right shoulder pain which has subsequently resolved. She was to follow up in 2 weeks to have her markers drawn. She did not return. Apparently, she lost her mother who was quite elderly, but it was a very sudden passing away. She became very depressed. As well, her sister was hit by a car. She has been crying daily and has not eaten any solid food in 5 days. She drinks water. She stopped her Ensure as well. Last time she weighed herself was 2 weeks ago, and she was 102 pounds at that time. She has no diarrhea. She has no thrush. She notes chills. Does not know if she has any fever. She has a productive cough. No hemoptysis. ALLERGIES: She is allergic to PENICILLIN but tolerates cephalosporins. PAST MEDICAL HISTORY: Notable for anemia, COPD, hypertension, anorexia. She has a history of blood transfusions in the past. She has had a , tonsillectomy. She had an abnormal Pap smear as well and has had a LEEP procedure in the past. FAMILY HISTORY: Her father from prostate cancer, and her mother is recently . She was in a half-way. MEDICATIONS AT HOME: Include atovaquone 5 mg daily which she has not been taking, Bacid 1 tablet b.i.d., ensure, Epzicom 1 tablet daily, Norvir 1 tablet daily, Prezista 1 tablet daily, Valtrex 500 mg daily, and Viread 300 mg daily. She is also taking Ambien and Remeron which are given to her by the psychiatrist. REVIEW OF SYSTEMS: She reports that she has been crying every day. Her review of systems is notable for the fact that she has cough. No hemoptysis. She has had chills. Does not know if she has had fever. She is not eating; has not had any solid food in 5 days. She denies diarrhea, she denies dysuria, and she has not had any herpes outbreaks. PHYSICAL EXAMINATION: Vital Signs: Her T-max is 99.4. Current temperature is 98.3. Pulse of 86, blood pressure 100/62, respiratory rate is 18, saturating 98% on 2 L. HEENT: She is normocephalic. Her eyes are anicteric. Neck: Supple. Lungs: Bilateral rhonchi. Heart: Regular rate and rhythm. Abdomen: Soft, nontender. Extremities: Without edema. Skin: She has no rash. LABORATORY DATA: White count is 4000. Hemoglobin is 9.7. Platelets are 217. Her INR is 1. BUN is 16 and creatinine 1. Her LFTs are normal. LDH is 704. 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 Labs are notable for an elevated LDH. A chest x-ray has a left perihilar infiltrate. I would suggest we obtain blood cultures, chest CT, no contrast, rule out PCP. Treat her with Rocephin. She tolerates cephalosporins, though she does have a remote history of PENICILLIN allergy. Would add Mepron 750 b.i.d. for PCP. Would obtain a legionella, urine culture, and sputum culture. Would obtain a psychiatry consult as well. Given the recent workup in November for TB, I do not think we need to repeat that at this time. Her problems include pneumonia, acquired immunodeficiency syndrome, and anorexia. Further recommendations to follow. I discussed her management with the admitting resident, . GERDA NEGRO M.D. [id number] [facility] LONG ISLANDVenecai
[2017-06-02 09:42] LABS: ANION GAP 11 (8-16)
[2017-06-02] MEDS ORDERED: cefTRIAXone SODIUM 1 GM VIAL ONE (10:18)
[2017-06-02] MEDS ORDERED: DEXTROSE 5%-WATER - 50 ML IVPB ONE (10:18)
[2017-06-02] MEDS: CEFTRIAXONE 1 GM in DEXTROSE 5%-WATER - 50 ML IVPB SCH (10:22)
[2017-06-02] MEDS: ATOVAQUONE 750 MG/5 ML (UNIT-DOSE PACKAGING) PO SCH ×2 (10:23→18:27)
[2017-06-02] MEDS: ENOXAPARIN NA (PORCINE) 40 MG/0.4 ML DISP.SYRIN SQ SCH (10:24)
[2017-06-02] MEDS: DEXTROSE 5%-NORMAL SALINE 1,000 ML IV SCH ×2 (11:37→14:54)
--- NOTE | 2017-06-02 12:41 | PN ---
Progress Note (short form) - Note Progress Note: ate some fruit and bread still some cough but less Vital Signs Period Temp Pulse Resp BP Sys/Inman Pulse Ox Last 24 Hr 97.8 F-100.2 F 65-103 18-20 96-120/51-68 98-100 cor-rrr lungs clear abd soft,nt ext no edema CBC, BMP 06/02/17 06:00 06/02/17 06:00 Microbiology 06/02/17 10:30 Nasopharyngeal Swab Influenza Types A,B Antigen (JUST[place]) - Final 06/02/17 10:30 Nasopharyngeal Swab - Final blood cultures/sputum culture pending chest ct -LLL pneumonia a/p LLL pneumonia- continue rocephin, add doxycycline for atypical pneumonia, f/u cultures, f/u urinary antigens chest ct not typical for PCP, continue mepron for PCP prophylaxis Aids- wishes to resume meds- will resume in am if tolerating pos well anorexia- continue IVF, consider psych eval Problem List - Problems (1) Pneumonia Code(s): J18.9 - PNEUMONIA, UNSPECIFIED ORGANISM Qualifiers: Pneumonia type: due to unspecified organism Laterality: unspecified laterality Lung location: unspecified part of lung Qualified Code(s): J18.9 - Pneumonia, unspecified organism (2) Anorexia nervosa Code(s): F50.00 - ANOREXIA NERVOSA, UNSPECIFIED (3) AIDS Code(s): B20 - HUMAN IMMUNODEFICIENCY VIRUS [HIV] DISEASE
--- NOTE | 2017-06-02 13:36 | PN ---
Teaching Attending Note Name of Resident: Mynor Ortega ATTENDING PHYSICIAN STATEMENT I saw and evaluated the patient. I reviewed the resident's note and discussed the case with the resident. I agree with the resident's findings and plan as documented. SUBJECTIVE: low grade fever , has no abd pain , nO CP , SOB has improved , cont to have cough OBJECTIVE: NAD, MMM, thin, AAOx3 ad pleasant CV : RRR, no MRG Lungs: crackles at L middle and lower lung lopez Ext: no edema , or erythema . no rash Abd : soft, No TTP , no rebound tenderness or guarding , NL BS . 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 She was found to have L sided PNA 1- CAP with sepsis : Ct chest with LLL infiltrate. - cont ceftriaxone - doxy added - cont Atovaquone - cont IVF 2- Normocytic anemia : previously had evidence of ACD with very elevated ferritin liver Bx was neg for hemochromatosis - iron studies pending 3- AIDs: cont meds 4- AIDS : Resume meds per Dr. Ivey OC
[2017-06-02] MEDS ORDERED: PATIENT'S OWN MEDICATION (NON-FORMULARY) (Abacavir Sulfate/Lamivudine [Epzicom Tablet] 1 T PO SCH (13:45)
[2017-06-02] MEDS ORDERED: DARUNAVIR ETHANOLATE 800 MG TAB PO SCH (13:45)
[2017-06-02] MEDS ORDERED: TENOFOVIR DISOPROXIL FUMARATE 300 MG TABLET NR SCH (13:45)
[2017-06-02] MEDS ORDERED: RITONAVIR 100 MG TABLET PO SCH (13:45)
[2017-06-02] MEDS ORDERED: valACYclovir HCL 500 MG TABLET (FP) PO SCH (13:45)
[2017-06-02 14:07] LABS: FERRITIN 3094.439 ng/ml (6.9-282.5)
[2017-06-02] MEDS: OLANZapine 5 MG TABLET PO SCH (14:31)
[2017-06-02 15:07] LABS: URINE APPEARANCE SLCLOUDY; URINE BILIRUBIN NEGATIVE (NEGATIVE); URINE BLOOD NEGATIVE (NEGATIVE); URINE COLOR YELLOW; URINE GLUCOSE (UA) NEGATIVE (NEGATIVE); URINE KETONE NEGATIVE (NEGATIVE); URINE NITRITE NEGATIVE (NEGATIVE); URINE PROTEIN NEGATIVE (NEGATIVE); URINE UROBILINOGEN NEGATIVE mg/dL (0.2-1.0)
[2017-06-02 15:25] LABS: URINE LEUK ESTERASE 1+ (NEGATIVE)
[2017-06-02 15:27] LABS: GRANULAR CASTS 3 /lpf; URINE MUCUS RARE; URINE RBC 1 /hpf (0-3); URINE WBC 17 /hpf (3-5)
--- NOTE | 2017-06-02 15:31 | PN ---
Physical Exam: SUBJECTIVE: Patient seen and examined. No acute events overnight. Pt reports that breathing has improved, but still endorses a cough. She also had an episode of diarrhea which she attributes to the Ensure that she received in the hospital. She denies chest pain, abdominal pain, n/v/c, and dysuria. OBJECTIVE: Vital Signs Period Temp Pulse Resp BP Sys/Inman Pulse Ox Last 24 Hr 97.8 F-100.2 F 65-103 16-20 96-120/51-64 98-100 GENERAL: middle aged female, emaciated, pleasant, awake, alert, and fully oriented, in no acute distress, coughing. HEAD: Normal with no signs of trauma. EYES: Pupils equal, round and reactive to light, extraocular movements intact, sclera anicteric, conjunctiva clear. No lid lag. EARS, NOSE, THROAT: no thrush, dry mucous membranes NECK: Normal range of motion, supple without lymphadenopathy, JVD, or masses. LUNGS: decreased breath sounds b/l, no wheezing, rales, or rhonchi appreciated HEART: Regular rate and rhythm, normal S1 and S2 without murmur, rub or gallop. ABDOMEN: soft, NT, ND, no organomegaly MUSCULOSKELETAL: Normal range of motion at all joints. No bony deformities or tenderness. No CVA tenderness. UPPER EXTREMITIES: 2+ pulses, warm, well-perfused. No cyanosis. No clubbing. No peripheral edema. LOWER EXTREMITIES: 2+ pulses, warm, well-perfused. No calf tenderness. No peripheral edema. NEUROLOGICAL: Cranial nerves II-XII intact. Normal speech. gait not observed SKIN: Warm, dry, normal turgor, no rashes or lesions noted, normal capillary refill. Laboratory Results - last 24 hr 06/01/17 06/01/17 06/01/17 18:38 21:45 21:45 WBC RBC Hgb Hct MCV MCH MCHC RDW Plt Count MPV Total Counted Neutrophils % Neutrophils % (Manual) Band Neuts % (Manual) Lymphocytes % Lymphocytes % (Manual) Monocytes % (Manual) Sodium Potassium Chloride Carbon Dioxide Anion Gap BUN Creatinine Random Glucose Lactic Acid 0.3 L Calcium Phosphorus 2.7 D Magnesium 2.4 Ferritin Vitamin B12 Serum Folate Urine Color Dkyellow Urine Appearance Slcloudy Urine pH 5.0 Ur Specific [place] 1.020 Urine Protein 1+ H Urine Glucose (UA) Negative Urine Ketones Trace H Urine Blood Negative Urine Nitrite Negative Urine Bilirubin Negative Urine Urobilinogen Negative Urine RBC 2 Urine WBC 30 Ur Epithelial Cells Rare Urine Bacteria Rare Granular Casts 1 Urine Mucus Rare 06/02/17 06/02/17 06/02/17 06:00 06:00 06:00 WBC 3.9 L RBC 3.59 L Hgb 9.7 L Hct 29.9 L MCV 83.5 MCH 27.2 MCHC 32.5 RDW 14.1 Plt Count 205 MPV 8.5 Total Counted 100 Neutrophils % No Result Required. Neutrophils % (Manual) 76 Band Neuts % (Manual) 1 Lymphocytes % No Result Required. Lymphocytes % (Manual) 5 L Monocytes % (Manual) 18 H* Sodium 137 Potassium 3.9 Chloride 100 Carbon Dioxide 26 Anion Gap 11 BUN 13 Creatinine 0.8 Random Glucose 100 D Lactic Acid Calcium 8.2 L Phosphorus 3.4 D Magnesium 2.3 Ferritin 3094.439 H Vitamin B12 581 Serum Folate 24 H Urine Color Urine Appearance Urine pH Ur Specific [place] Urine Protein Urine Glucose (UA) Urine Ketones Urine Blood Urine Nitrite Urine Bilirubin Urine Urobilinogen Urine RBC Urine WBC Ur Epithelial Cells Urine Bacteria Granular Casts Urine Mucus 06/02/17 14:00 WBC RBC Hgb Hct MCV MCH MCHC RDW Plt Count MPV Total Counted Neutrophils % Neutrophils % (Manual) Band Neuts % (Manual) Lymphocytes % Lymphocytes % (Manual) Monocytes % (Manual) Sodium Potassium Chloride Carbon Dioxide Anion Gap BUN Creatinine Random Glucose Lactic Acid Calcium Phosphorus Magnesium Ferritin Vitamin B12 Serum Folate Urine Color Yellow Urine Appearance Slcloudy Urine pH 6.0 Ur Specific [place] Urine Protein Negative Urine Glucose (UA) Negative Urine Ketones Negative Urine Blood Negative Urine Nitrite Negative Urine Bilirubin Negative Urine Urobilinogen Negative Urine RBC Urine WBC Ur Epithelial Cells Urine Bacteria Granular Casts Urine Mucus Active Medications Generic Name Dose Route Start Last Admin Trade Name Freq PRN Reason Stop Dose Admin Albuterol/Ipratropium 1 amp 06/01/17 19:25 Duoneb - NEB Q4H PRN SHORTNESS OF BREATH Atovaquone 750 mg 06/01/17 17:30 06/02/17 10:23 Mepron - PO 750 mg BIDWM SHERI Administration Doxycycline Hyclate 100 mg 06/02/17 18:00 Vibramycin - PO BID@1000,1800 [facility] Enoxaparin Sodium 40 mg 06/02/17 10:00 06/02/17 10:24 Lovenox - SQ 40 mg DAILY SHERI Administration Ceftriaxone Sodium 1 gm/ 50 mls @ 100 mls/hr 06/01/17 23:00 06/02/17 10:22 Dextrose IVPB 100 mls/hr DAILY SHERI Administration Dextrose/Sodium Chloride 1,000 mls @ 72 mls/hr 06/02/17 10:58 06/02/17 14:54 D5-Ns - IV 72 mls/hr ASDIR SHERI Administration Mirtazapine 15 mg 06/01/17 20:30 06/01/17 22:03 Remeron - PO 15 mg HS SHERI Administration Olanzapine 5 mg 06/01/17 20:30 06/02/17 14:31 Zyprexa - PO 5 mg DAILY SHERI Administration CT Chest: Interval consolidation in superior segment of LLL consistent with PNA ASSESSMENT/PLAN: 62F w/ hx of HIV/AIDS (non-adherent on HAART therapy, last CD4 of 61 on 04/16, unknown viral load), anorexia nervosa, and COPD who presented with 2 weeks of worsening SOB, productive cough, fevers, chills, and weakness, found to have tachypnea, tachycardia, an elevated LDH of 704, and a CXR showing a left hilar infiltrate, admitted for sepsis likely 2/2 CAP, being treated with rocephin, mepron, and doxycyline. #Sepsis- tachycardia, tachypnea -likely 2/2 CAP. less likely PCP -ID on board- Dr. Ivey, appreciated recs -continue rocephin, mepron 750mg BID, O2 via NC, duonebs q4h PRN. Administered one dose of thiamine 200mg -started doxycycline 100mg BID -CT Chest: Interval consolidation in superior segment of LLL consistent with PNA -f/u Bcx, sputum cx, Urine legionella #Diarrhea -likely due to abx, continue to monitor. If persistent, order stool cx and c. diff. #Anorexia Nervosa -regular diet, Ensure -registered nurse practitioner consult, f/u recs #AIDS -restart HAART therapy tomorrow morning once tolerating regular diet #Anemia -Ferritin of 3094 (trending up), f/u remainder of iron studies -B12 of 581; folate of 24 #Depression/Anxiety -continue home remeron and zyprexa #FEN/PPx -D5/NS at 72cc/hr -wnl -regular diet and ensure -no GI ppx indicated -lovenox 40 and SCDs Mynor Ortega MD PGY1 Visit type - Emergency Visit Emergency Visit: Yes ED Registration Date: 06/01/17 Care time: The patient presented to the Emergency Department on the above date and was hospitalized for further evaluation of their emergent condition. - New Patient This patient is new to me today: No - Critical Care Critical Care patient: No
[2017-06-02] MEDS: DOXYCYCLINE HYCLATE 100 MG CAPSULE PO SCH (18:23)
[2017-06-02] MEDS: TENOFOVIR DISOPROXIL FUMARATE 300 MG TABLET PO SCH (18:47)
[2017-06-02] MEDS: DARUNAVIR ETHANOLATE 800 MG TAB PO SCH (18:50)
[2017-06-02] MEDS: valACYclovir HCL 500 MG TABLET (FP) PO SCH (18:51)
[2017-06-02] MEDS: ABACAVIR SULFATE 300 MG TABLET PO SCH (20:01)
[2017-06-02] MEDS: RITONAVIR 100 MG TABLET PO SCH (20:01)
[2017-06-02] MEDS: MIRTAZAPINE 15 MG TABLET (FP) PO SCH (21:05)
[2017-06-03] MEDS: DEXTROSE 5%-NORMAL SALINE 1,000 ML IV SCH ×2 (04:55→18:40)
[2017-06-03] MEDS ORDERED: guaiFENesin 200 MG/10 ML 10 ML UNIT-DOSE CUPS PO ONE (05:53)
[2017-06-03 06:11] LABS: TRANSFERRIN 115 mg/dL (200-370)
[2017-06-03 08:07] LABS: SERUM IRON 23 ug/dL (27-139); TOTAL IRON BINDING CAPACITY 139 ug/dL (250-450); UIBC 116 ug/dL (118-369)
--- NOTE | 2017-06-03 08:51 | PN ---
Teaching Attending Note Name of Resident: Mynor Ortega ATTENDING PHYSICIAN STATEMENT I saw and evaluated the patient. I reviewed the resident's note and discussed the case with the resident. I agree with the resident's findings and plan as documented. SUBJECTIVE: Patient feels weak, would like to go to rehab. positive for coughing. OBJECTIVE: Vital Signs Temperature 98.8 F 06/03/17 05:53 Pulse Rate 94 H 06/03/17 05:53 Respiratory Rate 18 06/03/17 05:53 Blood Pressure 95/53 06/03/17 05:53 O2 Sat by Pulse Oximetry (%) 100 06/02/17 21:00 CBCD WBC 3.9 K/mm3 (4.0-10.0) L 06/02/17 06:00 RBC 3.59 M/mm3 (3.60-5.2) L 06/02/17 06:00 Hgb 9.7 GM/dL (10.7-15.3) L 06/02/17 06:00 Hct 29.9 % (32.4-45.2) L 06/02/17 06:00 MCV 83.5 fl (80-96) 06/02/17 06:00 MCHC 32.5 g/dl (32.0-36.0) 06/02/17 06:00 RDW 14.1 % (11.6-15.6) 06/02/17 06:00 Plt Count 205 K/MM3 (134-434) 06/02/17 06:00 MPV 8.5 fl (7.5-11.1) 06/02/17 06:00 CMP Sodium 137 mmol/L (136-145) 06/02/17 06:00 Potassium 3.9 mmol/L (3.5-5.1) 06/02/17 06:00 Chloride 100 mmol/L (98-107) 06/02/17 06:00 Carbon Dioxide 26 mmol/L (21-32) 06/02/17 06:00 Anion Gap 11 (8-16) 06/02/17 06:00 BUN 13 mg/dL (7-18) 06/02/17 06:00 Creatinine 0.8 mg/dL (0.55-1.02) 06/02/17 06:00 Creat Clearance w eGFR 56.37 (>60) 06/01/17 10:53 Random Glucose 100 mg/dL (74-106) D 06/02/17 06:00 Calcium 8.2 mg/dL (8.5-10.1) L 06/02/17 06:00 Total Bilirubin 0.6 mg/dL (0.2-1.0) D 06/01/17 10:53 AST 36 U/L (15-37) 06/01/17 10:53 ALT 21 U/L (12-78) D 06/01/17 10:53 Alkaline Phosphatase 58 U/L (45-117) D 06/01/17 10:53 Total Protein 8.0 g/dl (6.4-8.2) 06/01/17 10:53 Albumin 3.2 g/dl (3.4-5.0) L 06/01/17 10:53 CARDIAC ENZYMES Creatine Kinase 37 IU/L (26-192) 06/01/17 10:53 Troponin I < 0.02 ng/ml (0.00-0.05) 06/01/17 10:53 Current Medications Generic Name Dose Route Start Last Admin Trade Name Freq PRN Reason Stop Dose Admin Abacavir Sulfate 300 mg 06/02/17 17:30 06/02/17 20:01 Ziagen - PO 300 mg DAILY SHERI Administration Albuterol/Ipratropium 1 amp 06/01/17 19:25 Duoneb - NEB Q4H PRN SHORTNESS OF BREATH Atovaquone 750 mg 06/01/17 17:30 06/02/17 18:27 Mepron - PO 750 mg BIDWM SHERI Administration Darunavir 800 mg 06/02/17 17:30 06/02/17 18:50 Prezista - PO 800 mg DAILY SHERI Administration Doxycycline Hyclate 100 mg 06/02/17 18:00 06/02/17 18:23 Vibramycin - PO 100 mg BID@1000,1800 SHERI Administration Enoxaparin Sodium 40 mg 06/02/17 10:00 06/02/17 10:24 Lovenox - SQ 40 mg DAILY SHERI Administration Ceftriaxone Sodium 1 gm/ 50 mls @ 100 mls/hr 06/01/17 23:00 06/02/17 10:22 Dextrose IVPB 100 mls/hr DAILY SHERI Administration Dextrose/Sodium Chloride 1,000 mls @ 72 mls/hr 06/02/17 10:58 06/03/17 04:55 D5-Ns - IV 72 mls/hr ASDIR SHERI Administration Lamivudine 300 mg 06/02/17 18:56 Epivir - PO DAILY SHERI Mirtazapine 15 mg 06/01/17 20:30 06/02/17 21:05 Remeron - PO 15 mg HS SHERI Administration Olanzapine 5 mg 06/01/17 20:30 06/02/17 14:31 Zyprexa - PO 5 mg DAILY SHERI Administration Ritonavir 100 mg 06/02/17 17:30 06/02/17 20:01 Norvir - PO 100 mg DAILY SHERI Administration Tenofovir Disoproxil Fumarate 300 mg 06/02/17 17:30 06/02/17 18:47 Viread - PO 300 mg DAILY@0800 SHERI Administration Valacyclovir HCl 500 mg 06/02/17 17:30 06/02/17 18:51 Valtrex - PO 500 mg DAILY SHERI Administration Home Medications Medication Instructions Recorded Cyproheptadine [Periactin -] 4 mg PO HS #30 tablet 09/26/16 Nystatin Oral Suspension - 500,000 units PO Q6HPO #1 bottle 12/08/16 [Nystatin Oral Susp 030122 Units/5 ML -] Valacyclovir HCl [Valtrex -] 500 mg PO BID tablet 12/08/16 Albuterol Sulfate Inhaler - 1 - 2 inh PO Q4H #1 inhaler 02/12/17 [Ventolin HFA Inhaler -] Abacavir Sulfate/Lamivudine 1 tablet PO DAILY #30 tablet 04/16/17 [Epzicom Tablet] Atovaquone 1,500 mg PO DAILY #300 ml 04/16/17 Darunavir Ethanolate [Prezista -] 800 mg PO DAILY #30 tablet 04/16/17 Lactobacillus Acidophilus [Bacid -] 1 tab PO BID #28 tab 04/16/17 Lactose-Reduced Food [Ensure 237 ml PO TID #90 liquid 04/16/17 Original] Lorazepam 1 mg PO BID #30 tablet MDD 2 04/16/17 Mirtazapine [Remeron -] 15 mg PO DAILY #30 tablet 04/16/17 Olanzapine [Zyprexa] 5 mg PO DAILY #30 tablet MDD 1 04/16/17 Ritonavir [Norvir -] 100 mg PO DAILY #30 tab 04/16/17 Tenofovir Disoproxil Fumarate 300 mg NR DAILY #30 tablet 04/16/17 [Viread -] PE: per resident's note Ct chest with LLL infiltrate. 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 She was found to have L sided PNA. #Acute LLL pneumonia with sepsis : on iv ceftriaxone, doxycyline, Mepron continue as per ID # Aids: continue meds. as per ID. # Normocytic anemia :with elevated ferritin ; liver Bx was neg for hemochromatosis # Hx of ESBL in the sputum on isolation DVT Px: Lovenox sq
[2017-06-03 08:57] LABS: MCH 26.7 pg (25.7-33.7); MEAN CELL VOLUME 83.6 fl (80-96); MEAN PLT VOLUME 8.1 fl (7.5-11.1); PLATELET COUNT 184 K/MM3 (134-434); RDW 14.1 % (11.6-15.6); WHITE BLOOD COUNT 2.3 K/mm3 (4.0-10.0)
[2017-06-03] MEDS ORDERED: PT OWN MED DRAWER 7, Y5N ONE ×2 (09:38→18:19)
[2017-06-03] MEDS ORDERED: cefTRIAXone SODIUM 1 GM VIAL ONE (09:39)
[2017-06-03] MEDS ORDERED: DEXTROSE 5%-WATER - 50 ML IVPB ONE (09:39)
[2017-06-03] MEDS: ENOXAPARIN NA (PORCINE) 40 MG/0.4 ML DISP.SYRIN SQ SCH (09:51)
[2017-06-03] MEDS: DOXYCYCLINE HYCLATE 100 MG CAPSULE PO SCH ×2 (09:52→18:40)
[2017-06-03] MEDS: CEFTRIAXONE 1 GM in DEXTROSE 5%-WATER - 50 ML IVPB SCH (09:52)
[2017-06-03] MEDS: ATOVAQUONE 750 MG/5 ML (UNIT-DOSE PACKAGING) PO SCH ×2 (09:52→18:40)
[2017-06-03] MEDS: RITONAVIR 100 MG TABLET PO SCH (09:52)
[2017-06-03] MEDS: TENOFOVIR DISOPROXIL FUMARATE 300 MG TABLET PO SCH (09:53)
[2017-06-03] MEDS: valACYclovir HCL 500 MG TABLET (FP) PO SCH (09:53)
[2017-06-03] MEDS: ABACAVIR SULFATE 300 MG TABLET PO SCH (09:53)
[2017-06-03] MEDS: lamiVUDine 150 MG TABLET PO SCH (09:54)
[2017-06-03] MEDS: OLANZapine 5 MG TABLET PO SCH (09:54)
[2017-06-03] MEDS: DARUNAVIR ETHANOLATE 800 MG TAB PO SCH (09:54)
[2017-06-03] MEDS ORDERED: valACYclovir HCL 500 MG TABLET (FP) PO SCH (10:00)
[2017-06-03 10:22] LABS: BASOPHIL (MANUAL) 1 % (0-2.0); PLATELET ESTIMATE ADEQUATE (NORMAL); TOTAL CELLS COUNTED 100
--- NOTE | 2017-06-03 14:32 | PN ---
Progress Note (short form) - Note Progress Note: intermittent cough eating now Vital Signs Period Temp Pulse Resp BP Sys/[place]man Pulse Ox Last 24 Hr 98.2 F-100.0 F 89-103 16-18 95-116/53-68 100 cor-rrr lungs bilateral rhonchi abd soft,nt ext no edema CBC, BMP 06/03/17 08:30 06/02/17 06:00 Microbiology 06/02/17 08:30 Sputum - Expectorated Sputum Culture - Preliminary NORMAL RESPIRATORY MILANA 06/01/17 21:45 Blood - Peripheral Venous Blood Culture - Preliminary NO GROWTH OBTAINED AFTER 24 HOURS, INCUBATION TO CONTINUE FOR 4 DAYS. 06/01/17 21:45 Blood - Peripheral Venous Blood Culture - Preliminary NO GROWTH OBTAINED AFTER 24 HOURS, INCUBATION TO CONTINUE FOR 4 DAYS. 06/02/17 14:00 Urine For Antigen Detection Legionella Antigen - Final 06/02/17 14:00 Urine For Antigen Detection Streptococcus pneumoniae Antigen (M - Final 06/02/17 10:30 Nasopharyngeal Swab Influenza Types A,B Antigen ([place]) - Final 06/02/17 10:30 Nasopharyngeal Swab - Final chest ct -LLL pneumonia a/p LLL pneumonia- continue rocephin,and doxycycline for atypical pneumonia, f/u cultures, f/u urinary antigens chest ct not typical for PCP, continue mepron for PCP prophylaxis Aids- on meds anorexia- starting to eat Problem List - Problems (1) Pneumonia Code(s): J18.9 - PNEUMONIA, UNSPECIFIED ORGANISM Qualifiers: Pneumonia type: due to unspecified organism Laterality: unspecified laterality Lung location: unspecified part of lung Qualified Code(s): J18.9 - Pneumonia, unspecified organism (2) Anorexia nervosa Code(s): F50.00 - ANOREXIA NERVOSA, UNSPECIFIED (3) AIDS Code(s): B20 - HUMAN IMMUNODEFICIENCY VIRUS [HIV] DISEASE
--- NOTE | 2017-06-03 16:53 | PN ---
Physical Exam: SUBJECTIVE: Patient seen and examined. Overnight, pt complained of cough, was given cough suppressant with minimal improvement. This am, pt states that breathing is better, but cough is causing her some costochondral chest pain. The sputum is still yellow-green. She denies any more episodes of diarrhea. OBJECTIVE: Vital Signs Period Temp Pulse Resp BP Sys/Inman Pulse Ox Last 24 Hr 98.4 F-100.0 F 84-103 16-18 95-116/50-68 100 GENERAL: middle aged female, emaciated, pleasant, awake, alert, and fully oriented, in no acute distress, coughing. HEAD: Normal with no signs of trauma. EYES: Pupils equal, round and reactive to light, extraocular movements intact, sclera anicteric, conjunctiva clear. No lid lag. EARS, NOSE, THROAT: no thrush NECK: Normal range of motion, supple without lymphadenopathy, JVD, or masses. LUNGS: decreased breath sounds b/l, no wheezing, rales, or rhonchi appreciated HEART: Regular rate and rhythm, normal S1 and S2 without murmur, rub or gallop. ABDOMEN: soft, NT, ND, no organomegaly MUSCULOSKELETAL: Normal range of motion at all joints. No bony deformities or tenderness. No CVA tenderness. UPPER EXTREMITIES: 2+ pulses, warm, well-perfused. No cyanosis. No clubbing. No peripheral edema. LOWER EXTREMITIES: 2+ pulses, warm, well-perfused. No calf tenderness. No peripheral edema. NEUROLOGICAL: Cranial nerves II-XII intact. Normal speech. gait not observed SKIN: Warm, dry, normal turgor, no rashes or lesions noted, normal capillary refill. Laboratory Results - last 24 hr 06/02/17 06/02/17 06/03/17 06:00 14:00 08:30 WBC 2.3 L D RBC 2.99 L Hgb 8.0 L D Hct 25.0 L D MCV 83.6 MCH 26.7 MCHC 32.0 RDW 14.1 Plt Count 184 MPV 8.1 Total Counted 100 Neutrophils % No Result Required. Neutrophils % (Manual) 77 Lymphocytes % No Result Required. Lymphocytes % (Manual) 10 D Monocytes % (Manual) 12 H Basophils % (Manual) 1 Platelet Estimate Adequate Iron 23 L TIBC 139 L Iron Saturation 17 Transferrin 115 L Urine Color Yellow Urine Appearance Slcloudy Urine pH 6.0 Ur Specific [place] 1.010 Urine Protein Negative Urine Glucose (UA) Negative Urine Ketones Negative Urine Blood Negative Urine Nitrite Negative Urine Bilirubin Negative Urine Urobilinogen Negative Urine RBC 1 Urine WBC 17 Ur Epithelial Cells Rare Granular Casts 3 Urine Mucus Rare Active Medications Generic Name Dose Route Start Last Admin Trade Name Freq PRN Reason Stop Dose Admin Abacavir Sulfate 300 mg 06/02/17 17:30 06/03/17 09:53 Ziagen - PO 300 mg DAILY SHERI Administration Albuterol/Ipratropium 1 amp 06/01/17 19:25 Duoneb - NEB Q4H PRN SHORTNESS OF BREATH Atovaquone 750 mg 06/01/17 17:30 06/03/17 09:52 Mepron - PO 750 mg BIDWM SHERI Administration Darunavir 800 mg 06/02/17 17:30 06/03/17 09:54 Prezista - PO 800 mg DAILY SHERI Administration Doxycycline Hyclate 100 mg 06/02/17 18:00 06/03/17 09:52 Vibramycin - PO 100 mg BID@1000,1800 SHERI Administration Enoxaparin Sodium 40 mg 06/02/17 10:00 06/03/17 09:51 Lovenox - SQ 40 mg DAILY SHERI Administration Ceftriaxone Sodium 1 gm/ 50 mls @ 100 mls/hr 06/01/17 23:00 06/03/17 09:52 Dextrose IVPB 100 mls/hr DAILY SHERI Administration Dextrose/Sodium Chloride 1,000 mls @ 72 mls/hr 06/02/17 10:58 06/03/17 04:55 D5-Ns - IV 72 mls/hr ASDIR SHERI Administration Lamivudine 300 mg 06/02/17 18:56 06/03/17 09:54 Epivir - PO 300 mg DAILY SHERI Administration Mirtazapine 15 mg 06/01/17 20:30 06/02/17 21:05 Remeron - PO 15 mg HS SHERI Administration Olanzapine 5 mg 06/01/17 20:30 06/03/17 09:54 Zyprexa - PO 5 mg DAILY SHERI Administration Ritonavir 100 mg 06/02/17 17:30 06/03/17 09:52 Norvir - PO 100 mg DAILY SHERI Administration Tenofovir Disoproxil Fumarate 300 mg 06/02/17 17:30 06/03/17 09:53 Viread - PO 300 mg DAILY@0800 SHERI Administration Valacyclovir HCl 500 mg 06/02/17 17:30 06/03/17 09:53 Valtrex - PO 500 mg DAILY SHERI Administration ASSESSMENT/PLAN: 62F w/ hx of HIV/AIDS (non-adherent on HAART therapy, last CD4 of 61 on 04/16, unknown viral load), anorexia nervosa, and COPD who presented with 2 weeks of worsening SOB, productive cough, fevers, chills, and weakness, found to have tachypnea, tachycardia, an elevated LDH of 704, and a CXR showing a left hilar infiltrate, admitted for sepsis likely 2/2 CAP, being treated with rocephin, mepron, and doxycyline. #Sepsis- tachycardia, tachypnea -likely 2/2 CAP. less likely PCP -CT Chest: Interval consolidation in superior segment of LLL consistent with PNA -ID on board- Dr. Ivey, appreciated recs -continue rocephin, mepron 750mg BID, O2 via NC, duonebs q4h PRN, and doxycycline 100mg BID -Urine legionella and strep pneumo Ag: negative -Sputum cx: prelim result of normal respiratory celena -f/u Bcx, currently no growth to date #Diarrhea -one episode in hospital, none today -possibly due to abx, continue to monitor. If persistent, order stool cx and c. diff. #Anorexia Nervosa -regular diet, Ensure -registered associate consult, recs appreciated #AIDS -HAART therapy restarted this am #Anemia -Ferritin of 3094 (trending up), f/u remainder of iron studies -B12 of 581; folate of 24 #Depression/Anxiety -continue home remeron and zyprexa #FEN/PPx -D5/NS at 72cc/hr -wnl -regular diet and ensure -no GI ppx indicated -lovenox 40 and SCDs Mynor Ortega MD PGY1 Visit type - Emergency Visit Emergency Visit: Yes ED Registration Date: 06/01/17 Care time: The patient presented to the Emergency Department on the above date and was hospitalized for further evaluation of their emergent condition. - New Patient This patient is new to me today: No - Critical Care Critical Care patient: No
[2017-06-03] MEDS: MIRTAZAPINE 15 MG TABLET (FP) PO SCH (21:17)
[2017-06-04 07:52] LABS: MEAN CELL VOLUME 84.5 fl (80-96); MEAN PLT VOLUME 8.2 fl (7.5-11.1); PLATELET COUNT 219 K/MM3 (134-434); RDW 14.2 % (11.6-15.6); WHITE BLOOD COUNT 2.4 K/mm3 (4.0-10.0)
--- NOTE | 2017-06-04 08:38 | PN ---
Progress Note, Physician Chief Complaint: ID Ceftriaxone Doxycycline Mepron bid Couph improved - Current Medication List Current Medications: Active Medications Abacavir Sulfate (Ziagen -) 300 mg PO DAILY [facility] Last Admin: 06/03/17 09:53 Dose: 300 mg Albuterol/Ipratropium (Duoneb -) 1 amp NEB Q4H PRN PRN Reason: SHORTNESS OF BREATH Last Admin: 06/03/17 21:30 Dose: 1 amp Atovaquone (Mepron -) 750 mg PO BIDWM [facility] Last Admin: 06/03/17 18:40 Dose: 750 mg Darunavir (Prezista -) 800 mg PO DAILY [facility] Last Admin: 06/03/17 09:54 Dose: 800 mg Doxycycline Hyclate (Vibramycin -) 100 mg PO BID@1000,1800 [facility] Last Admin: 06/03/17 18:40 Dose: 100 mg Enoxaparin Sodium (Lovenox -) 40 mg SQ DAILY [facility] Last Admin: 06/03/17 09:51 Dose: 40 mg Ceftriaxone Sodium 1 gm/ (Dextrose) 50 mls @ 100 mls/hr IVPB DAILY [facility] Last Admin: 06/03/17 09:52 Dose: 100 mls/hr Dextrose/Sodium Chloride (D5-Ns -) 1,000 mls @ 72 mls/hr IV ASDIR [facility] Last Admin: 06/03/17 18:40 Dose: 72 mls/hr Lamivudine (Epivir -) 300 mg PO DAILY [facility] Last Admin: 06/03/17 09:54 Dose: 300 mg Mirtazapine (Remeron -) 15 mg PO HS [facility] Last Admin: 06/03/17 21:17 Dose: 15 mg Olanzapine (Zyprexa -) 5 mg PO DAILY [facility] Last Admin: 06/03/17 09:54 Dose: 5 mg Ritonavir (Norvir -) 100 mg PO DAILY [facility] Last Admin: 06/03/17 09:52 Dose: 100 mg Tenofovir Disoproxil Fumarate (Viread -) 300 mg PO DAILY@0800 [facility] Last Admin: 06/03/17 09:53 Dose: 300 mg Valacyclovir HCl (Valtrex -) 500 mg PO DAILY [facility] Last Admin: 06/03/17 09:53 Dose: 500 mg - Objective Vital Signs: Vital Signs Temperature 98.1 F 06/04/17 06:00 Pulse Rate 88 06/04/17 06:00 Respiratory Rate 18 06/04/17 06:00 Blood Pressure 98/64 06/04/17 06:00 O2 Sat by Pulse Oximetry (%) 100 06/03/17 21:00 Cardiovascular: Yes: S1, S2 Respiratory: Yes: WNL, Regular, CTA Bilaterally Gastrointestinal: Yes: Soft Labs: CBC, BMP 06/04/17 06:30 06/02/17 06:00 INR, PTT INR 1.07 (0.82-1.09) 06/01/17 10:53 Assessment/Plan Laboratory Tests 06/04/17 06:30 WBC 2.4 L Hgb 8.6 L Plt Count 219 Assessment AIDS with PNA unspecified History of STEW ? PCP Plan Continue current therapy Add chemo Elias MD
[2017-06-04] MEDS ORDERED: PT OWN MED DRAWER 7, Y5N ONE ×2 (09:46→18:21)
[2017-06-04] MEDS ORDERED: cefTRIAXone SODIUM 1 GM VIAL ONE (09:46)
[2017-06-04] MEDS ORDERED: DEXTROSE 5%-WATER - 50 ML IVPB ONE (09:46)
[2017-06-04] MEDS: CEFTRIAXONE 1 GM in DEXTROSE 5%-WATER - 50 ML IVPB SCH (09:55)
[2017-06-04] MEDS: DARUNAVIR ETHANOLATE 800 MG TAB PO SCH (09:56)
[2017-06-04] MEDS: ABACAVIR SULFATE 300 MG TABLET PO SCH (09:57)
[2017-06-04] MEDS: ENOXAPARIN NA (PORCINE) 40 MG/0.4 ML DISP.SYRIN SQ SCH (09:57)
[2017-06-04] MEDS: RITONAVIR 100 MG TABLET PO SCH (09:57)
[2017-06-04] MEDS: ATOVAQUONE 750 MG/5 ML (UNIT-DOSE PACKAGING) PO SCH ×2 (09:57→18:27)
[2017-06-04] MEDS: TENOFOVIR DISOPROXIL FUMARATE 300 MG TABLET PO SCH (09:57)
[2017-06-04] MEDS: valACYclovir HCL 500 MG TABLET (FP) PO SCH (09:57)
[2017-06-04] MEDS: lamiVUDine 150 MG TABLET PO SCH (09:58)
[2017-06-04] MEDS: DEXTROSE 5%-NORMAL SALINE 1,000 ML IV SCH ×3 (09:58→23:58)
[2017-06-04] MEDS: OLANZapine 5 MG TABLET PO SCH (09:58)
[2017-06-04 10:01] LABS: PLATELET ESTIMATE ADEQUATE (NORMAL); TOTAL CELLS COUNTED 100
[2017-06-04] MEDS: FLUCONAZOLE 100 MG TABLET (UD) PO SCH (11:23)
[2017-06-04] MEDS: DOXYCYCLINE HYCLATE 100 MG CAPSULE PO SCH ×2 (11:23→18:27)
[2017-06-04] MEDS: NYSTATIN 500,000 UNITS/5 ML SUSPENSION PO SCH ×3 (11:23→23:54)
[2017-06-04] MEDS: guaiFENesin 600 MG TABLET.ER (FP) PO SCH ×2 (11:23→22:38)
--- NOTE | 2017-06-04 15:04 | PN ---
Physical Exam: SUBJECTIVE: Patient seen and examined. Pt complaining of cough and odynophagia. Denies any further episodes of diarrhea. No change in SOB. OBJECTIVE: Vital Signs Period Temp Pulse Resp BP Sys/Inman Pulse Ox Last 24 Hr 97.7 F-98.8 F 82-95 16-20 95-120/50-65 100 GENERAL: middle aged female, emaciated, pleasant, awake, alert, and fully oriented, in no acute distress, coughing. HEAD: Normal with no signs of trauma. EYES: Pupils equal, round and reactive to light, extraocular movements intact, sclera anicteric, conjunctiva clear. No lid lag. EARS, NOSE, THROAT: thrush present posterior cheeks and tonsils NECK: Normal range of motion, supple without lymphadenopathy, JVD, or masses. LUNGS: rales over LLL HEART: Regular rate and rhythm, normal S1 and S2 without murmur, rub or gallop. ABDOMEN: soft, NT, ND, no organomegaly MUSCULOSKELETAL: Normal range of motion at all joints. No bony deformities or tenderness. No CVA tenderness. UPPER EXTREMITIES: 2+ pulses, warm, well-perfused. No cyanosis. No clubbing. No peripheral edema. LOWER EXTREMITIES: 2+ pulses, warm, well-perfused. No calf tenderness. No peripheral edema. NEUROLOGICAL: Cranial nerves II-XII intact. Normal speech. gait not observed SKIN: Warm, dry, normal turgor, no rashes or lesions noted, normal capillary refill. Laboratory Results - last 24 hr 06/04/17 06:30 WBC 2.4 L RBC 3.16 L Hgb 8.6 L Hct 26.8 L MCV 84.5 MCH 27.0 MCHC 32.0 RDW 14.2 Plt Count 219 MPV 8.2 Total Counted 100 Neutrophils % No Result Required. Neutrophils % (Manual) 69 Band Neuts % (Manual) 1 Lymphocytes % No Result Required. Lymphocytes % (Manual) 10 Monocytes % (Manual) 20 H* Platelet Estimate Adequate Active Medications Generic Name Dose Route Start Last Admin Trade Name Freq PRN Reason Stop Dose Admin Abacavir Sulfate 300 mg 06/02/17 17:30 06/04/17 09:57 Ziagen - PO 300 mg DAILY SHERI Administration Albuterol/Ipratropium 1 amp 06/01/17 19:25 06/03/17 21:30 Duoneb - NEB 1 amp Q4H PRN Administration SHORTNESS OF BREATH Atovaquone 750 mg 06/01/17 17:30 06/04/17 09:57 Mepron - PO 750 mg BIDWM SHERI Administration Darunavir 800 mg 06/02/17 17:30 06/04/17 09:56 Prezista - PO 800 mg DAILY SHERI Administration Doxycycline Hyclate 100 mg 06/04/17 10:00 06/04/17 11:23 Vibramycin - PO 100 mg BID@1000,1800 SHERI Administration Enoxaparin Sodium 40 mg 06/02/17 10:00 06/04/17 09:57 Lovenox - SQ 40 mg DAILY SHERI Administration Fluconazole 100 mg 06/04/17 10:00 06/04/17 11:23 Diflucan - PO 100 mg DAILY SHERI Administration Guaifenesin 1,200 mg 06/04/17 10:45 06/04/17 11:23 Mucinex - PO 1,200 mg BID SHERI Administration Ceftriaxone Sodium 1 gm/ 50 mls @ 100 mls/hr 06/01/17 23:00 06/04/17 09:55 Dextrose IVPB 100 mls/hr DAILY SHERI Administration Dextrose/Sodium Chloride 1,000 mls @ 72 mls/hr 06/02/17 10:58 06/04/17 11:23 D5-Ns - IV Not Given ASDIR SHERI Lamivudine 300 mg 06/02/17 18:56 06/04/17 09:58 Epivir - PO 300 mg DAILY SHERI Administration Mirtazapine 15 mg 06/01/17 20:30 06/03/17 21:17 Remeron - PO 15 mg HS SHERI Administration Nystatin 500,000 units 06/04/17 12:00 06/04/17 11:23 Nystatin Oral Suspension - PO 500,000 units Q6HPO SHERI Administration Olanzapine 5 mg 06/01/17 20:30 06/04/17 09:58 Zyprexa - PO 5 mg DAILY SHERI Administration Ritonavir 100 mg 06/02/17 17:30 06/04/17 09:57 Norvir - PO 100 mg DAILY SHERI Administration Tenofovir Disoproxil Fumarate 300 mg 06/02/17 17:30 06/04/17 09:57 Viread - PO 300 mg DAILY@0800 SHERI Administration Valacyclovir HCl 500 mg 06/02/17 17:30 09/28/17 09:57 Valtrex - PO 500 mg DAILY SHERI Administration ASSESSMENT/PLAN: 62F w/ hx of HIV/AIDS (non-adherent on HAART therapy, last CD4 of 62 on 04/16, unknown viral load), anorexia nervosa, and COPD who presented with 2 weeks of worsening SOB, productive cough, fevers, chills, and weakness, found to have tachypnea, tachycardia, an elevated LDH of 704, and a CXR showing a left hilar infiltrate, admitted for sepsis likely 2/2 CAP, being treated with rocephin, mepron, and doxycyline. #Sepsis- tachycardia, tachypnea -likely 2/2 CAP. less likely PCP -CT Chest: Interval consolidation in superior segment of LLL consistent with PNA -ID on board- Dr. Ivey, appreciated recs -continue rocephin, mepron 750mg BID, O2 via NC, duonebs q4h PRN, and doxycycline 100mg BID -Sputum cx: prelim result of normal respiratory celena -Bcx, currently no growth to date #Odynophagia- likely 2/2 thrush -started diflucan #cough -started guaifenesin #Anorexia Nervosa/ severe protein malnutrition -regular diet, Ensure -registered clinical dietitian consult, recs appreciated #AIDS -continue HAART therapy #Anemia -Ferritin of 3094 (trending up), f/u remainder of iron studies -B12 of 581; folate of 24 #Depression/Anxiety -continue home remeron and zyprexa #FEN/PPx -D5/NS at 72cc/hr -wnl -regular diet and ensure -no GI ppx indicated -lovenox 40 and SCDs #Dispo -pending acceptance to SNF -per ID, to be discharged on levaquin 500mg x 7 days in addition to mepron Mynor Ortega MD PGY1 Visit type - Emergency Visit Emergency Visit: Yes ED Registration Date: 06/01/17 Care time: The patient presented to the Emergency Department on the above date and was hospitalized for further evaluation of their emergent condition. - New Patient This patient is new to me today: No - Critical Care Critical Care patient: No
--- NOTE | 2017-06-04 19:52 | PN ---
Teaching Attending Note Name of Resident: Mynor Ortega ATTENDING PHYSICIAN STATEMENT I saw and evaluated the patient. I reviewed the resident's note and discussed the case with the resident. I agree with the resident's findings and plan as documented. SUBJECTIVE: Patient feels better but continues to feel weak. OBJECTIVE: Vital Signs Temperature 98.4 F 06/04/17 17:38 Pulse Rate 83 06/04/17 17:38 Respiratory Rate 18 06/04/17 17:38 Blood Pressure 105/67 06/04/17 17:38 O2 Sat by Pulse Oximetry (%) 99 06/04/17 09:00 CBCD WBC 2.4 K/mm3 (4.0-10.0) L 06/04/17 06:30 RBC 3.16 M/mm3 (3.60-5.2) L 06/04/17 06:30 Hgb 8.6 GM/dL (10.7-15.3) L 06/04/17 06:30 Hct 26.8 % (32.4-45.2) L 06/04/17 06:30 MCV 84.5 fl (80-96) 06/04/17 06:30 MCHC 32.0 g/dl (32.0-36.0) 06/04/17 06:30 RDW 14.2 % (11.6-15.6) 06/04/17 06:30 Plt Count 219 K/MM3 (134-434) 06/04/17 06:30 MPV 8.2 fl (7.5-11.1) 06/04/17 06:30 CMP Sodium 137 mmol/L (136-145) 06/02/17 06:00 Potassium 3.9 mmol/L (3.5-5.1) 06/02/17 06:00 Chloride 100 mmol/L (98-107) 06/02/17 06:00 Carbon Dioxide 26 mmol/L (21-32) 06/02/17 06:00 Anion Gap 11 (8-16) 06/02/17 06:00 BUN 13 mg/dL (7-18) 06/02/17 06:00 Creatinine 0.8 mg/dL (0.55-1.02) 06/02/17 06:00 Creat Clearance w eGFR 56.37 (>60) 06/01/17 10:53 Random Glucose 100 mg/dL (74-106) D 06/02/17 06:00 Calcium 8.2 mg/dL (8.5-10.1) L 06/02/17 06:00 Total Bilirubin 0.6 mg/dL (0.2-1.0) D 06/01/17 10:53 AST 36 U/L (15-37) 06/01/17 10:53 ALT 21 U/L (12-78) D 06/01/17 10:53 Alkaline Phosphatase 58 U/L (45-117) D 06/01/17 10:53 Total Protein 8.0 g/dl (6.4-8.2) 06/01/17 10:53 Albumin 3.2 g/dl (3.4-5.0) L 06/01/17 10:53 CARDIAC ENZYMES Creatine Kinase 37 IU/L (26-192) 06/01/17 10:53 Troponin I < 0.02 ng/ml (0.00-0.05) 06/01/17 10:53 Current Medications Generic Name Dose Route Start Last Admin Trade Name Freq PRN Reason Stop Dose Admin Abacavir Sulfate 300 mg 06/02/17 17:30 06/04/17 09:57 Ziagen - PO 300 mg DAILY SHERI Administration Albuterol/Ipratropium 1 amp 06/01/17 19:25 06/03/17 21:30 Duoneb - NEB 1 amp Q4H PRN Administration SHORTNESS OF BREATH Atovaquone 750 mg 06/01/17 17:30 06/04/17 18:27 Mepron - PO 750 mg BIDWM SHERI Administration Darunavir 800 mg 06/02/17 17:30 06/04/17 09:56 Prezista - PO 800 mg DAILY SHERI Administration Doxycycline Hyclate 100 mg 06/04/17 10:00 06/04/17 18:27 Vibramycin - PO 100 mg BID@1000,1800 SHERI Administration Enoxaparin Sodium 40 mg 06/02/17 10:00 06/04/17 09:57 Lovenox - SQ 40 mg DAILY SHERI Administration Fluconazole 100 mg 06/04/17 10:00 06/04/17 11:23 Diflucan - PO 100 mg DAILY SHERI Administration Guaifenesin 1,200 mg 06/04/17 10:45 06/04/17 11:23 Mucinex - PO 1,200 mg BID SHERI Administration Ceftriaxone Sodium 1 gm/ 50 mls @ 100 mls/hr 06/01/17 23:00 06/04/17 09:55 Dextrose IVPB 100 mls/hr DAILY SHERI Administration Dextrose/Sodium Chloride 1,000 mls @ 72 mls/hr 06/02/17 10:58 06/04/17 11:23 D5-Ns - IV Not Given ASDIR SHERI Lamivudine 300 mg 06/02/17 18:56 06/04/17 09:58 Epivir - PO 300 mg DAILY SHERI Administration Mirtazapine 15 mg 06/01/17 20:30 06/03/17 21:17 Remeron - PO 15 mg HS SHERI Administration Nystatin 500,000 units 06/04/17 12:00 06/04/17 18:27 Nystatin Oral Suspension - PO 500,000 units Q6HPO SHERI Administration Olanzapine 5 mg 06/01/17 20:30 06/04/17 09:58 Zyprexa - PO 5 mg DAILY SHERI Administration Ritonavir 100 mg 06/02/17 17:30 06/04/17 09:57 Norvir - PO 100 mg DAILY SHERI Administration Tenofovir Disoproxil Fumarate 300 mg 06/02/17 17:30 06/04/17 09:57 Viread - PO 300 mg DAILY@0800 SHERI Administration Valacyclovir HCl 500 mg 06/02/17 17:30 06/04/17 09:57 Valtrex - PO 500 mg DAILY SHERI Administration Home Medications Medication Instructions Recorded Cyproheptadine [Periactin -] 4 mg PO HS #30 tablet 09/26/16 Nystatin Oral Suspension - 500,000 units PO Q6HPO #1 bottle 12/08/16 [Nystatin Oral Susp 399678 Units/5 ML -] Albuterol Sulfate Inhaler - 1 - 2 inh PO Q4H #1 inhaler 02/12/17 [Ventolin HFA Inhaler -] Abacavir Sulfate/Lamivudine 1 tablet PO DAILY #30 tablet 04/16/17 [Epzicom Tablet] Darunavir Ethanolate [Prezista -] 800 mg PO DAILY #30 tablet 04/16/17 Lactobacillus Acidophilus [Bacid -] 1 tab PO BID #28 tab 04/16/17 Lactose-Reduced Food [Ensure 237 ml PO TID #90 liquid 04/16/17 Original] Lorazepam 1 mg PO BID #30 tablet MDD 2 04/16/17 Ritonavir [Norvir -] 100 mg PO DAILY #30 tab 04/16/17 Tenofovir Disoproxil Fumarate 300 mg NR DAILY #30 tablet 04/16/17 [Viread -] Atovaquone 1,500 mg PO BID #300 ml 06/04/17 Fluconazole [Diflucan -] 100 mg PO DAILY #14 tablet 06/04/17 Guaifenesin [Mucinex -] 1,200 mg PO BID PRN #14 tab 06/04/17 Levofloxacin [Levaquin] 500 mg PO DAILY #7 tablet 06/04/17 PE: per resident's note Ct chest with LLL infiltrate. 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 She was found to have L sided PNA. #Acute LLL pneumonia with sepsis : on IV ceftriaxone, doxycyline, Mepron continue current therapy as per ID # Aids: continue meds. as per ID. # Normocytic anemia :with elevated ferritin ; liver Bx was neg for hemochromatosis # Hx of ESBL in the sputum on isolation DVT Px: Lovenox sq possible rehab in am. waiting for placement
[2017-06-04] MEDS: MIRTAZAPINE 15 MG TABLET (FP) PO SCH (22:38)
[2017-06-05] MEDS: NYSTATIN 500,000 UNITS/5 ML SUSPENSION PO SCH ×2 (05:53→12:22)
[2017-06-05] MEDS ORDERED: PT OWN MED DRAWER 7, Y5N ONE (08:31)
--- NOTE | 2017-06-05 08:42 | PN ---
Progress Note, Physician Chief Complaint: ID Still difficult to know if in fact she is improving Still couphing and congested - Current Medication List Current Medications: Active Medications Abacavir Sulfate (Ziagen -) 300 mg PO DAILY [facility] Last Admin: 06/04/17 09:57 Dose: 300 mg Albuterol/Ipratropium (Duoneb -) 1 amp NEB Q4H PRN PRN Reason: SHORTNESS OF BREATH Last Admin: 06/03/17 21:30 Dose: 1 amp Atovaquone (Mepron -) 750 mg PO BIDWM [facility] Last Admin: 06/04/17 18:27 Dose: 750 mg Darunavir (Prezista -) 800 mg PO DAILY [facility] Last Admin: 06/04/17 09:56 Dose: 800 mg Doxycycline Hyclate (Vibramycin -) 100 mg PO BID@1000,1800 [facility] Last Admin: 06/04/17 18:27 Dose: 100 mg Enoxaparin Sodium (Lovenox -) 40 mg SQ DAILY [facility] Last Admin: 06/04/17 09:57 Dose: 40 mg Fluconazole (Diflucan -) 100 mg PO DAILY [facility] Last Admin: 06/04/17 11:23 Dose: 100 mg Guaifenesin (Mucinex -) 1,200 mg PO BID [facility] Last Admin: 06/04/17 22:38 Dose: 1,200 mg Ceftriaxone Sodium 1 gm/ (Dextrose) 50 mls @ 100 mls/hr IVPB DAILY [facility] Last Admin: 06/04/17 09:55 Dose: 100 mls/hr Dextrose/Sodium Chloride (D5-Ns -) 1,000 mls @ 72 mls/hr IV ASDIR [facility] Last Admin: 06/04/17 23:58 Dose: 72 mls/hr Lamivudine (Epivir -) 300 mg PO DAILY [facility] Last Admin: 06/04/17 09:58 Dose: 300 mg Mirtazapine (Remeron -) 15 mg PO HS [facility] Last Admin: 06/04/17 22:38 Dose: 15 mg Nystatin (Nystatin Oral Suspension -) 500,000 units PO Q6HPO [facility] Last Admin: 06/05/17 05:53 Dose: 500,000 units Olanzapine (Zyprexa -) 5 mg PO DAILY [facility] Last Admin: 06/04/17 09:58 Dose: 5 mg Ritonavir (Norvir -) 100 mg PO DAILY [facility] Last Admin: 06/04/17 09:57 Dose: 100 mg Tenofovir Disoproxil Fumarate (Viread -) 300 mg PO DAILY@0800 [facility] Last Admin: 06/04/17 09:57 Dose: 300 mg Valacyclovir HCl (Valtrex -) 500 mg PO DAILY [facility] Last Admin: 06/04/17 09:57 Dose: 500 mg - Objective Vital Signs: Vital Signs Temperature 97.4 F L 06/05/17 05:00 Pulse Rate 62 06/05/17 05:00 Respiratory Rate 18 06/05/17 05:00 Blood Pressure 101/59 06/05/17 05:00 O2 Sat by Pulse Oximetry (%) 98 06/04/17 21:00 Constitutional: Yes: Cachectic, Thin HENT: No: Thrush Cardiovascular: Yes: Regular Rate and Rhythm, S1, S2. No: Murmur Respiratory: Yes: WNL, Regular, CTA Bilaterally, Rhonchi, Other (OCc wheezing) Labs: CBC, BMP 06/04/17 06:30 06/02/17 06:00 INR, PTT INR 1.07 (0.82-1.09) 06/01/17 10:53 Problem List - Problems (1) Pneumonia Code(s): J18.9 - PNEUMONIA, UNSPECIFIED ORGANISM Qualifiers: Pneumonia type: due to unspecified organism Laterality: unspecified laterality Lung location: unspecified part of lung Qualified Code(s): J18.9 - Pneumonia, unspecified organism (2) AIDS Code(s): B20 - HUMAN IMMUNODEFICIENCY VIRUS [HIV] DISEASE (3) COPD exacerbation Code(s): J44.1 - CHRONIC OBSTRUCTIVE PULMONARY DISEASE W (ACUTE) EXACERBATION Assessment/Plan Microbiology 06/02/17 14:00 Urine For Antigen Detection Legionella Antigen - Final 06/02/17 14:00 Urine For Antigen Detection Streptococcus pneumoniae Antigen (M - Final 06/02/17 10:30 Nasopharyngeal Swab Influenza Types A,B Antigen ([place]) - Final 06/02/17 10:30 Nasopharyngeal Swab - Final 06/02/17 08:30 Sputum - Expectorated Gram Stain - Final 06/02/17 08:30 Sputum - Expectorated Sputum Culture - Final NORMAL RESPIRATORY MILANA 06/01/17 21:45 Blood - Peripheral Venous Blood Culture - Preliminary NO GROWTH OBTAINED AFTER 72 HOURS, INCUBATION TO CONTINUE FOR 2 DAYS. 06/01/17 21:45 Blood - Peripheral Venous Blood Culture - Preliminary NO GROWTH OBTAINED AFTER 72 HOURS, INCUBATION TO CONTINUE FOR 2 DAYS. Laboratory Tests 06/01/17 06/01/17 06/02/17 10:53 12:35 06:00 WBC Hgb Hct Plt Count Neutrophils % (Manual) Band Neuts % (Manual) Lymphocytes % (Manual) Monocytes % (Manual) BUN 13 Creatinine 0.8 Total Bilirubin 0.6 D AST 36 ALT 21 D Alkaline Phosphatase 58 D LD Total 704 H D 06/04/17 06:30 WBC 2.4 L Hgb 8.6 L Hct 26.8 L Plt Count 219 Neutrophils % (Manual) 69 Band Neuts % (Manual) 1 Lymphocytes % (Manual) 10 Monocytes % (Manual) 20 H* BUN Creatinine Total Bilirubin AST ALT Alkaline Phosphatase LD Total Assessment AIDS HIV wasting low T cells History of STEW Pneumonia unspecified Elevated LDH ? COPD former heavy smoker Plan Chest xray today prior to discharge Might need bronchoscopy Short course steroids O2 sat off O2 Jada FIELDS
[2017-06-05] MEDS: TENOFOVIR DISOPROXIL FUMARATE 300 MG TABLET PO SCH (08:44)
[2017-06-05] MEDS: ATOVAQUONE 750 MG/5 ML (UNIT-DOSE PACKAGING) PO SCH (08:44)
[2017-06-05] MEDS ORDERED: cefTRIAXone SODIUM 1 GM VIAL ONE (10:07)
[2017-06-05] MEDS ORDERED: DEXTROSE 5%-WATER - 50 ML IVPB ONE (10:08)
[2017-06-05] MEDS: RITONAVIR 100 MG TABLET PO SCH (10:26)
[2017-06-05] MEDS: guaiFENesin 600 MG TABLET.ER (FP) PO SCH (10:26)
[2017-06-05] MEDS: OLANZapine 5 MG TABLET PO SCH (10:26)
[2017-06-05] MEDS: FLUCONAZOLE 100 MG TABLET (UD) PO SCH (10:26)
[2017-06-05] MEDS: valACYclovir HCL 500 MG TABLET (FP) PO SCH (10:27)
[2017-06-05] MEDS: CEFTRIAXONE 1 GM in DEXTROSE 5%-WATER - 50 ML IVPB SCH (10:27)
[2017-06-05] MEDS: DARUNAVIR ETHANOLATE 800 MG TAB PO SCH (10:28)
[2017-06-05] MEDS: ABACAVIR SULFATE 300 MG TABLET PO SCH (10:28)
[2017-06-05] MEDS: ENOXAPARIN NA (PORCINE) 40 MG/0.4 ML DISP.SYRIN SQ SCH (10:28)
[2017-06-05] MEDS: lamiVUDine 150 MG TABLET PO SCH (10:29)
[2017-06-05 12:04] VITALS: BP 98/60; PULSE 68; TEMP 97.8
--- NOTE | 2017-06-05 14:46 | DS ---
Physical Exam: SUBJECTIVE: Patient seen and examined. No acute events overnight. Pt reports that her cough is decreasing, and her odynophagia has improved. OBJECTIVE: Vital Signs Period Temp Pulse Resp BP Sys/[place] Pulse Ox Last 24 Hr 97.2 F-98.6 F 62-84 18-18 97-105/58-68 98 PHYSICAL EXAM GENERAL: The patient is awake, alert, and fully oriented, in no acute distress. HEAD: Normal with no signs of trauma. EYES: PERRL, extraocular movements intact, sclera anicteric, conjunctiva clear. ENT: thrush still present on back of cheeks NECK: Trachea midline, full range of motion, supple. LUNGS: decreased rales over LLL HEART: Regular rate and rhythm, S1, S2 without murmur, rub or gallop. ABDOMEN: Soft, nontender, nondistended, normoactive bowel sounds, no guarding, no rebound, no hepatosplenomegaly, no masses. EXTREMITIES: 2+ pulses, warm, well-perfused, no edema. NEUROLOGICAL: Cranial nerves II through XII grossly intact. Normal speech, gait not observed. PSYCH: Normal mood, normal affect. SKIN: Warm, dry, normal turgor, no rashes or lesions noted. LABS Laboratory Tests 06/01/17 06/01/17 06/01/17 10:53 10:53 10:53 WBC 4.0 RBC 3.58 L Hgb 9.7 L D Hct 29.6 L MCV 82.8 MCH 27.2 MCHC 32.9 RDW 14.0 Plt Count 217 MPV 8.4 Total Counted Neutrophils % 73.4 D Neutrophils % (Manual) Band Neuts % (Manual) Lymphocytes % 7.4 L D Lymphocytes % (Manual) Monocytes % 18.5 H Monocytes % (Manual) Eosinophils % 0.0 D Basophils % 0.7 Basophils % (Manual) Platelet Estimate PT with INR 11.80 INR 1.07 Sodium 134 L Potassium 4.0 Chloride 100 Carbon Dioxide 28 Anion Gap 6 L BUN 16 Creatinine 1.0 Creat Clearance w eGFR 56.37 Random Glucose 79 Lactic Acid Calcium 8.5 Phosphorus Magnesium Iron TIBC Iron Saturation Transferrin Ferritin Total Bilirubin 0.6 D AST 36 ALT 21 D Alkaline Phosphatase 58 D LD Total Creatine Kinase 37 Troponin I < 0.02 Total Protein 8.0 Albumin 3.2 L Lipase 446 H Vitamin B12 Serum Folate Urine Color Urine Appearance Urine pH Ur Specific [place] Urine Protein Urine Glucose (UA) Urine Ketones Urine Blood Urine Nitrite Urine Bilirubin Urine Urobilinogen Urine RBC Urine WBC Ur Epithelial Cells Urine Bacteria Granular Casts Urine Mucus Blood Type Antibody Screen 06/01/17 06/01/17 06/01/17 10:54 12:35 13:00 WBC RBC Hgb Hct MCV MCH MCHC RDW Plt Count MPV Total Counted Neutrophils % Neutrophils % (Manual) Band Neuts % (Manual) Lymphocytes % Lymphocytes % (Manual) Monocytes % Monocytes % (Manual) Eosinophils % Basophils % Basophils % (Manual) Platelet Estimate PT with INR INR Sodium Potassium Chloride Carbon Dioxide Anion Gap BUN Creatinine Creat Clearance w eGFR Random Glucose Lactic Acid Calcium Phosphorus Magnesium Iron TIBC Iron Saturation Transferrin Ferritin Total Bilirubin AST ALT Alkaline Phosphatase LD Total 704 H D Cancelled Creatine Kinase Troponin I Total Protein Albumin Lipase Vitamin B12 Serum Folate Urine Color Urine Appearance Urine pH Ur Specific [place] Urine Protein Urine Glucose (UA) Urine Ketones Urine Blood Urine Nitrite Urine Bilirubin Urine Urobilinogen Urine RBC Urine WBC Ur Epithelial Cells Urine Bacteria Granular Casts Urine Mucus Blood Type O POSITIVE Antibody Screen Negative 06/01/17 06/01/17 06/01/17 18:38 21:45 21:45 WBC RBC Hgb Hct MCV MCH MCHC RDW Plt Count MPV Total Counted Neutrophils % Neutrophils % (Manual) Band Neuts % (Manual) Lymphocytes % Lymphocytes % (Manual) Monocytes % Monocytes % (Manual) Eosinophils % Basophils % Basophils % (Manual) Platelet Estimate PT with INR INR Sodium Potassium Chloride Carbon Dioxide Anion Gap BUN Creatinine Creat Clearance w eGFR Random Glucose Lactic Acid 0.3 L Calcium Phosphorus 2.7 D Magnesium 2.4 Iron TIBC Iron Saturation Transferrin Ferritin Total Bilirubin AST ALT Alkaline Phosphatase LD Total Creatine Kinase Troponin I Total Protein Albumin Lipase Vitamin B12 Serum Folate Urine Color Dkyellow Urine Appearance Slcloudy Urine pH 5.0 Ur Specific [place] 1.020 Urine Protein 1+ H Urine Glucose (UA) Negative Urine Ketones Trace H Urine Blood Negative Urine Nitrite Negative Urine Bilirubin Negative Urine Urobilinogen Negative Urine RBC 2 Urine WBC 30 Ur Epithelial Cells Rare Urine Bacteria Rare Granular Casts 1 Urine Mucus Rare Blood Type Antibody Screen 06/02/17 06/02/17 06/02/17 06:00 06:00 06:00 WBC 3.9 L RBC 3.59 L Hgb 9.7 L Hct 29.9 L MCV 83.5 MCH 27.2 MCHC 32.5 RDW 14.1 Plt Count 205 MPV 8.5 Total Counted 100 Neutrophils % No Result Required. Neutrophils % (Manual) 76 Band Neuts % (Manual) 1 Lymphocytes % No Result Required. Lymphocytes % (Manual) 5 L Monocytes % Monocytes % (Manual) 18 H* Eosinophils % Basophils % Basophils % (Manual) Platelet Estimate PT with INR INR Sodium 137 Potassium 3.9 Chloride 100 Carbon Dioxide 26 Anion Gap 11 BUN 13 Creatinine 0.8 Creat Clearance w eGFR Random Glucose 100 D Lactic Acid Calcium 8.2 L Phosphorus 3.4 D Magnesium 2.3 Iron 23 L TIBC 139 L Iron Saturation 17 Transferrin 115 L Ferritin Total Bilirubin AST ALT Alkaline Phosphatase LD Total Creatine Kinase Troponin I Total Protein Albumin Lipase Vitamin B12 Serum Folate 24 H Urine Color Urine Appearance Urine pH Ur Specific [place] Urine Protein Urine Glucose (UA) Urine Ketones Urine Blood Urine Nitrite Urine Bilirubin Urine Urobilinogen Urine RBC Urine WBC Ur Epithelial Cells Urine Bacteria Granular Casts Urine Mucus Blood Type Antibody Screen 06/02/17 06/02/17 06/03/17 06:00 14:00 08:30 WBC 2.3 L D RBC 2.99 L Hgb 8.0 L D Hct 25.0 L D MCV 83.6 MCH 26.7 MCHC 32.0 RDW 14.1 Plt Count 184 MPV 8.1 Total Counted 100 Neutrophils % No Result Required. Neutrophils % (Manual) 77 Band Neuts % (Manual) Lymphocytes % No Result Required. Lymphocytes % (Manual) 10 D Monocytes % Monocytes % (Manual) 12 H Eosinophils % Basophils % Basophils % (Manual) 1 Platelet Estimate Adequate PT with INR INR Sodium Potassium Chloride Carbon Dioxide Anion Gap BUN Creatinine Creat Clearance w eGFR Random Glucose Lactic Acid Calcium Phosphorus Magnesium Iron TIBC Iron Saturation Transferrin Ferritin 3094.439 H Total Bilirubin AST ALT Alkaline Phosphatase LD Total Creatine Kinase Troponin I Total Protein Albumin Lipase Vitamin B12 581 Serum Folate Urine Color Yellow Urine Appearance Slcloudy Urine pH 6.0 Ur Specific [place] 1.010 Urine Protein Negative Urine Glucose (UA) Negative Urine Ketones Negative Urine Blood Negative Urine Nitrite Negative Urine Bilirubin Negative Urine Urobilinogen Negative Urine RBC 1 Urine WBC 17 Ur Epithelial Cells Rare Urine Bacteria Granular Casts 3 Urine Mucus Rare Blood Type Antibody Screen 06/04/17 06:30 WBC 2.4 L RBC 3.16 L Hgb 8.6 L Hct 26.8 L MCV 84.5 MCH 27.0 MCHC 32.0 RDW 14.2 Plt Count 219 MPV 8.2 Total Counted 100 Neutrophils % No Result Required. Neutrophils % (Manual) 69 Band Neuts % (Manual) 1 Lymphocytes % No Result Required. Lymphocytes % (Manual) 10 Monocytes % Monocytes % (Manual) 20 H* Eosinophils % Basophils % Basophils % (Manual) Platelet Estimate Adequate PT with INR INR Sodium Potassium Chloride Carbon Dioxide Anion Gap BUN Creatinine Creat Clearance w eGFR Random Glucose Lactic Acid Calcium Phosphorus Magnesium Iron TIBC Iron Saturation Transferrin Ferritin Total Bilirubin AST ALT Alkaline Phosphatase LD Total Creatine Kinase Troponin I Total Protein Albumin Lipase Vitamin B12 Serum Folate Urine Color Urine Appearance Urine pH Ur Specific [place] Urine Protein Urine Glucose (UA) Urine Ketones Urine Blood Urine Nitrite Urine Bilirubin Urine Urobilinogen Urine RBC Urine WBC Ur Epithelial Cells Urine Bacteria Granular Casts Urine Mucus Blood Type Antibody Screen CXR on admission: L hilar infiltrate CT chest: interval consolidation in superior segment of LLL consistent w/ PNA HOSPITAL COURSE: Date of Admission:06/01/17 Date of Discharge: 06/05/17 62F w/ hx of HIV/AIDS (last CD4 count of 61 on 04/16, non-adherent to medication regimen), anemia, anorexia nervosa, COPD, anxiety, and depression who presented with worsening SOB and productive cough for 2 weeks, found to have a LLL consolidation on imaging and an elevated LDH, admitted for CAP PNA. She was seen by ID and treated with ceftriaxone, mepron, and doxycycline with a good response. Her home HIV medications were restarted. In the hospital, she was found to have thrush, and was given diflucan w/ relief. Today, pt has improving cough, CXR showing resolving PNA, is afebrile with no leukocytosis, and is stable for discharge to [facility] to finish an antibiotic regimen of levaquin and mepron. Minutes to complete discharge: 38 Discharge Summary Reason For Visit: PNEUMONIA Condition: Stable - Instructions Diet, Activity, Other Instructions: You presented to the hospital with shortness of breath and a productive cough, and you were found to have a pneumonia. You were treated with antibiotics. 1. Follow up with Dr. Ivey within one week to ensure resolution of symptoms. 2. Make sure to continue the course of antibiotics and complete it, or the infection might not be completely eradicated. If you develop any new, worsening, or concerning symptoms such as shortness of breath or chest pain, return to the ED. Referrals: Jamila Ivey MD [Staff Physician] - [facility] - Home Medications Comprehensive Discharge Medication List: Ambulatory Orders Cyproheptadine [Periactin -] 4 mg PO HS #30 tablet 09/26/16 Nystatin Oral Suspension - [Nystatin Oral Susp 405341 Units/5 ML -] 500,000 units PO Q6HPO #1 bottle 12/08/16 Albuterol Sulfate Inhaler - [Ventolin HFA Inhaler -] 1 - 2 inh PO Q4H #1 inhaler 02/12/17 Abacavir Sulfate/Lamivudine [Epzicom Tablet] 1 tablet PO DAILY #30 tablet Darunavir Ethanolate [Prezista -] 800 mg PO DAILY #30 tablet 04/16/17 Lactobacillus Acidophilus [Bacid -] 1 tab PO BID #28 tab 04/16/17 Lactose-Reduced Food [Ensure Original] 237 ml PO TID #90 liquid 04/16/17 Lorazepam 1 mg PO BID #30 tablet MDD 2 04/16/17 Ritonavir [Norvir -] 100 mg PO DAILY #30 tab 04/16/17 Tenofovir Disoproxil Fumarate [Viread -] 300 mg NR DAILY #30 tablet 04/16/17 Atovaquone 1,500 mg PO BID #300 ml 06/04/17 Fluconazole [Diflucan -] 100 mg PO DAILY #14 tablet 06/04/17 Guaifenesin [Mucinex -] 1,200 mg PO BID PRN #14 tab 06/04/17 Levofloxacin [Levaquin] 500 mg PO DAILY #7 tablet 06/04/17 This patient is new to me today: No Emergency Visit: Yes ED Registration Date: 06/01/17 Care time: The patient presented to the Emergency Department on the above date and was hospitalized for further evaluation of their emergent condition. Critical Care patient: No - Discharge Referral Referred to [facility] Med P.C.: No
--- NOTE | 2017-06-05 16:14 | PN ---
Teaching Attending Note Name of Resident: Mynor Ortega ATTENDING PHYSICIAN STATEMENT I saw and evaluated the patient. I reviewed the resident's note and discussed the case with the resident. I agree with the resident's findings and plan as documented. SUBJECTIVE: Patient is feeling better today. continues to cough though. OBJECTIVE: Vital Signs Temperature 97.8 F 06/05/17 09:00 Pulse Rate 68 06/05/17 09:00 Respiratory Rate 18 06/05/17 09:00 Blood Pressure 98/60 06/05/17 09:00 O2 Sat by Pulse Oximetry (%) 98 06/04/17 21:00 CBCD WBC 2.4 K/mm3 (4.0-10.0) L 06/04/17 06:30 RBC 3.16 M/mm3 (3.60-5.2) L 06/04/17 06:30 Hgb 8.6 GM/dL (10.7-15.3) L 06/04/17 06:30 Hct 26.8 % (32.4-45.2) L 06/04/17 06:30 MCV 84.5 fl (80-96) 06/04/17 06:30 MCHC 32.0 g/dl (32.0-36.0) 06/04/17 06:30 RDW 14.2 % (11.6-15.6) 06/04/17 06:30 Plt Count 219 K/MM3 (134-434) 06/04/17 06:30 MPV 8.2 fl (7.5-11.1) 06/04/17 06:30 CMP Sodium 137 mmol/L (136-145) 06/02/17 06:00 Potassium 3.9 mmol/L (3.5-5.1) 06/02/17 06:00 Chloride 100 mmol/L (98-107) 06/02/17 06:00 Carbon Dioxide 26 mmol/L (21-32) 06/02/17 06:00 Anion Gap 11 (8-16) 06/02/17 06:00 BUN 13 mg/dL (7-18) 06/02/17 06:00 Creatinine 0.8 mg/dL (0.55-1.02) 06/02/17 06:00 Creat Clearance w eGFR 56.37 (>60) 06/01/17 10:53 Random Glucose 100 mg/dL (74-106) D 06/02/17 06:00 Calcium 8.2 mg/dL (8.5-10.1) L 06/02/17 06:00 Total Bilirubin 0.6 mg/dL (0.2-1.0) D 06/01/17 10:53 AST 36 U/L (15-37) 06/01/17 10:53 ALT 21 U/L (12-78) D 06/01/17 10:53 Alkaline Phosphatase 58 U/L (45-117) D 06/01/17 10:53 Total Protein 8.0 g/dl (6.4-8.2) 06/01/17 10:53 Albumin 3.2 g/dl (3.4-5.0) L 06/01/17 10:53 CARDIAC ENZYMES Creatine Kinase 37 IU/L (26-192) 06/01/17 10:53 Troponin I < 0.02 ng/ml (0.00-0.05) 06/01/17 10:53 Home Medications Medication Instructions Recorded Cyproheptadine [Periactin -] 4 mg PO HS #30 tablet 09/26/16 Nystatin Oral Suspension - 500,000 units PO Q6HPO #1 bottle 12/08/16 [Nystatin Oral Susp 492874 Units/5 ML -] Albuterol Sulfate Inhaler - 1 - 2 inh PO Q4H #1 inhaler 02/12/17 [Ventolin HFA Inhaler -] Abacavir Sulfate/Lamivudine 1 tablet PO DAILY #30 tablet 04/16/17 [Epzicom Tablet] Darunavir Ethanolate [Prezista -] 800 mg PO DAILY #30 tablet 04/16/17 Lactobacillus Acidophilus [Bacid -] 1 tab PO BID #28 tab 04/16/17 Lactose-Reduced Food [Ensure 237 ml PO TID #90 liquid 04/16/17 Original] Lorazepam 1 mg PO BID #30 tablet MDD 2 04/16/17 Ritonavir [Norvir -] 100 mg PO DAILY #30 tab 04/16/17 Tenofovir Disoproxil Fumarate 300 mg NR DAILY #30 tablet 04/16/17 [Viread -] Atovaquone 1,500 mg PO BID #300 ml 06/04/17 Fluconazole [Diflucan -] 100 mg PO DAILY #14 tablet 06/04/17 Guaifenesin [Mucinex -] 1,200 mg PO BID PRN #14 tab 06/04/17 Levofloxacin [Levaquin] 500 mg PO DAILY #7 tablet 06/04/17 PE: per resident's note Ct chest with LLL infiltrate. repeat CXR improving infltrate ASSESSMENT AND PLAN: 61 y/o lady with AIDS, anorexia nervosa , PTSD, positive MAC in sputum 12/22, ESBL in sputum 12/22 , who presented with fever /chills/ cough . She was found to have L sided PNA. #Acute LLL pneumonia , s/p sepsis : will discharge the patient to rehab on Levaquin x 7 more days as per ID . s/p IV ceftriaxone, doxycyline, Mepron. Repeat cxr improved. # Oral thrush on Diflucan continue 100mg po daily continue # Aids: continue meds. as per IDs recommendation # Normocytic anemia :with elevated ferritin ; liver Bx was neg for hemochromatosis # Hx of ESBL in the sputum on isolation discharge to Rehab.
== END 2017-06-05 13:51 | DRG 974 ==
LOC: JER 08:45 → JERBED 13:36 → J8W 21:31
PROVIDERS: ADMIT Internal Medicine; ATTEND Internal Medicine
DX: B20 Human immunodeficiency virus [HIV] disease (principal); A41.9 Sepsis, unspecified organism; E43 Unspecified severe protein-calorie malnutrition; J18.9 Pneumonia, unspecified organism; Z68.1 Body mass index [BMI] 19.9 or less, adult; F50.00 Anorexia nervosa, unspecified; A07.2 Cryptosporidiosis; K52.1 Toxic gastroenteritis and colitis; B37.0 Candidal stomatitis; R13.19 Other dysphagia; D64.9 Anemia, unspecified; J44.9 Chronic obstructive pulmonary disease, unspecified; I10 Essential (primary) hypertension; F41.8 Other specified anxiety disorders; E86.0 Dehydration; R05 Cough; T36.8X5A Adverse effect of other systemic antibiotics, initial encounter; Y92.89 Other specified places as the place of occurrence of the external cause; Z87.891 Personal history of nicotine dependence
CPT/HCPCS: 36415; 71010-TC; 71020-TC; 71250-TC; 80048; 80053; 81003; 81015; 82607; 82728; 82746; 83540; 83550; 83605; 83615; 83690; 83735; 84100; 84466; 84484; 85025; 85610; 86850; 86900; 86901; 87040; 87070; 87205; 87804; 87899; 90688; 93005; 93010; 94640; 97116-GP; 99284-25; G0008

== ENCOUNTER 2017-08-13 13:23 | Emergency (ER) | payer OTHER ==
[2017-08-13 13:31] VITALS: BMI 23.0
[2017-08-13] MEDS ORDERED: traMADol HCL 50 MG TABLET PO ONE (15:16)
--- NOTE | 2017-08-13 15:25 | PDOC ---
History of Present Illness - History of Present Illness Initial Comments: 08/13/17 15:58 The patient is a 62 year old female, with a significant past medical history of HIV, Anorexia, Anemia, COPD, hypertension, who presents to the emergency department with progressive pain to right foot, ankle and calf for about a week with new onset of swelling to her right ankle and calf last night. The patient was sent by the [facility] for rule out DVT and cellulitis. The patient reports the swelling is somewhat better today compared to yesterday because there is less swelling over the top of her foot. She reports the pain as 7/10, shooting up her right lateral leg to her right knee. She reportedly took Tylenol with minimal relief. The patient denies chest pain, shortness of breath, headache and dizziness. Denies fever, chills, nausea, vomit, diarrhea and constipation. Denies dysuria, frequency, urgency and hematuria. Allergies: Penicillins Past surgical history: Tonsillectomy, cyst removal from breast/ovary, and prior Social history: Occasional EtOH and tobacco use PMD - Jamila Ivey <Hermelinda Truong - Last Filed: 08/13/17 17:13> <Lamont Garces - Last Filed: 08/13/17 17:46> - General Chief Complaint: Edema Stated Complaint: R/O DVT Time Seen by Provider: 08/13/17 13:36 Past History <Hermelinda Truong - Last Filed: 08/13/17 17:13> - Past Medical History Anemia: Yes COPD: No Diabetes: No GI Disorders: Yes (ANOREXIA,ESOPHAGEAL PROBLEM) HTN: Yes Liver Disease: No Psychiatric Problems: Yes (ANXIETY) - Surgical History Abdominal Surgery: Yes (EXPLORATORY) - Immunization History Immunization Up to Date: Yes - Suicide/Smoking/Psychosocial Hx Smoking Status: No Smoking History: Former smoker Have you smoked in the past 12 months: No Number of Cigarettes Smoked Daily: 2 If you are a former smoker, when did you quit?: 2 months ago Cigars Per Day: 0 Information on smoking cessation initiated: No 'Breaking Loose' booklet given: 08/06/15 Hx Alcohol Use: No Drug/Substance Use Hx: No Substance Use Type: None Hx Substance Use Treatment: No <Lamont Garces - Last Filed: 08/13/17 17:46> - Past Medical History Allergies/Adverse Reactions: Allergies Allergy/AdvReac Type Severity Reaction Status Date / Time Penicillins Allergy Unknown Swelling Verified 08/13/17 13:28 [facility] AdvReac Uncoded 08/13/17 13:28 Home Medications: Ambulatory Orders Abacavir Sulfate/Lamivudine [Epzicom Tablet] 1 tablet PO DAILY #30 tablet Darunavir Ethanolate [Prezista -] 800 mg PO DAILY #30 tablet 04/16/17 Lactose-Reduced Food [Ensure Original] 237 ml PO TID #90 liquid 04/16/17 Ritonavir [Norvir -] 100 mg PO DAILY #30 tab 04/16/17 Tenofovir Disoproxil Fumarate [Viread -] 300 mg NR DAILY #30 tablet 04/16/17 Atovaquone 1,500 mg PO BID #300 ml 06/04/17 Albuterol Sulfate Inhaler - [Ventolin HFA Inhaler -] 1 - 2 inh PO Q4H #1 inhaler 08/06/17 Cyproheptadine [Periactin -] 4 mg PO HS #30 tablet 08/06/17 Mirtazapine [Remeron -] 15 mg PO DAILY #30 tablet 08/06/17 Olanzapine [Zyprexa] 2.5 mg PO HS #30 tablet 08/06/17 Zolpidem Tartrate [Ambien] 10 mg PO HS #30 tablet MDD 1 08/06/17 Cephalexin Monohydrate [Keflex -] 500 mg PO Q6H #28 capsule 08/13/17 Tramadol HCl [Ultram -] 50 mg PO Q8H PRN #6 tablet MDD 3 08/13/17 Review of Systems - Review of Systems Constitutional: No: Chills, Fever Respiratory: No: Cough, Shortness of Breath Cardiac (ROS): Yes: Edema. No: Chest Pain, Palpitations Musculoskeletal: Yes: Muscle Pain. No: Joint Pain All Other Systems: Reviewed and Negative <Lamont Garces - Last Filed: 08/13/17 17:46> *Physical Exam - Vital Signs Last Vital Signs Temp Pulse Resp BP Pulse Ox 98.5 F 89 20 102/73 99 08/13/17 13:29 08/13/17 13:29 08/13/17 13:29 08/13/17 13:29 08/13/17 13:29 - Physical Exam Comments: 08/13/17 15:58 GENERAL: The patient is awake, alert, and fully oriented, in no acute distress. HEAD: Normal with no signs of trauma. EYES: Pupils equal, round and reactive to light, extraocular movements intact, sclera anicteric, conjunctiva clear with no pallor. ENT: Ears normal, nares patent, oropharynx clear without exudates. Moist mucous membranes. NECK: Normal range of motion, supple without lymphadenopathy, JVD, or masses. LUNGS: Breath sounds equal, clear to auscultation bilaterally. No wheeze/ crackles. HEART: Regular rate and rhythm, normal S1 and S2 without murmur or rub. ABDOMEN: Soft/nontender/nondistended. BS wnl. No guarding or rebound. No palpable masses. No hepatosplenomegaly. EXTREMITIES: (+) RLE: sts with rubor and ttp, no calf stiffness or cords. NVI without joint effusion, FROM knee/ankle/toes. 2+ distal pulse. LLE also with slight rubor but no ttp or swelling. Remainder of extremities have Normal range of motion, no edema. No clubbing or cyanosis. No cords, erythema, or tenderness. NEUROLOGICAL: Cranial nerves II through XII grossly intact. Normal speech, normal gait. PSYCH: Normal mood, normal affect. SKIN: Warm, Dry, normal turgor, no rashes or lesions noted. <Hermelinda Truong - Last Filed: 08/13/17 17:13> - Vital Signs Last Vital Signs Temp Pulse Resp BP Pulse Ox 98.5 F 89 20 102/73 99 08/13/17 13:29 08/13/17 13:29 08/13/17 13:29 08/13/17 13:29 08/13/17 13:29 <Lamont Garces - Last Filed: 08/13/17 17:46> ED Treatment Course - LABORATORY CBC & Chemistry Diagram: 08/13/17 15:17 08/13/17 15:17 - ADDITIONAL ORDERS Additional order review: 08/13/17 15:17 RBC 3.47 L MCV 87.0 MCHC 33.6 RDW 14.7 MPV 7.6 Neutrophils % 45.3 D Lymphocytes % 38.8 D Monocytes % 13.6 H Eosinophils % 1.7 D Basophils % 0.6 - RADIOLOGY Radiograph Interpretation: EXAM#: TYPE/EXAM: RESULT: [id number] US/DUPLEX VASCUL US-1 LEG Right leg swelling rule out DVT Right lower extremity Doppler venous ultrasound. Grayscale, pulsed Doppler and color Doppler interrogation of the right lower extremity deep venous system was performed. The right common femoral vein, superficial femoral vein, popliteal and posterior tibial vein were identified with a normal phasic waveform, adequate compressibility and adequate response to augmentation. Visualized portion of the greater saphenous and deep femoral vein are patent No Barkley's cyst is identified in the popliteal fossa. Impression: There is no evidence of deep venous thromboses in the right lower extremity. Reported By: Sagrario Esquivel MD 08/13/17 1612 <Hermelinda Truong - Last Filed: 08/13/17 17:13> - LABORATORY CBC & Chemistry Diagram: 08/13/17 15:17 08/13/17 15:17 - RADIOLOGY Radiology Studies Ordered: Category Date Time Status DUPLEX VASCUL US-1 LEG [US] Stat Ultrasound 08/13/17 14:53 Ordered <Lamont Garces - Last Filed: 08/13/17 17:46> Medical Decision Making - Medical Decision Making 08/13/17 16:40 Dr. Ivey was paged via phone answering service requesting a call back for doctor to doctor consult <Hermelinda Truong - Last Filed: 08/13/17 17:13> - Medical Decision Making 08/13/17 15:17 A portion of this note was documented by scribe services under my direction. I have reviewed the details of the note, within reason, and agree with the documentation with the following case summary and management plan written by me. 62-year-old female history of HIV with T-cell count of 61 sent from [facility] complaining of right lower leg pain and swelling since last night. Seen by Dr. Ivey, concern for DVT versus cellulitis. No fevers or chills, no history of DVT, note the symptoms, no recent immobilization or travel. VSS, afrebrile RLE: sts with some rubor and ttp, no calf stiffness or cords. NVI without joint effusion, FROM knee/ankle/toes. 2+ distal pulse. LLE also with slight rubor but no ttp or swelling 62y/o F HIV with swelling and erythema to RLE, dvt v. cellulitis. no PE sxs. labs RLE doppler Pain control reassess, dispo with Dr. Ivey 08/13/17 16:29 no leukocytosis, chem at baseline, no DVT on doppler. 08/13/17 17:[address] Ivey, agrees with d/c plan. Recommend changing from ceftin to keflex (despite pcn allergy, pt has always tolerated cephalosporins well), elevation, f/u in office early next week. Also recommended foot xray, which was ordered and appears normal on my preliminary review. will proceed with d/c plan as outlined with Dr. Ivey. Pt understands return criteria. <Lamont Garces - Last Filed: 08/13/17 17:46> *DC/Admit/Observation/Transfer - Attestations Scribe Attestion: 08/13/17 15:59 Documentation prepared by Hermelinda Truong, acting as medical technologist chemistry for Lamont Garces MD, <Hermelinda Truong - Last Filed: 08/13/17 17:13> <Lamont Garces - Last Filed: 08/13/17 17:46> Diagnosis at time of Disposition: Swelling of right lower extremity Cellulitis Qualifiers: Site of cellulitis: extremity Site of cellulitis of extremity: lower extremity Laterality: right Qualified Code(s): L03.115 - Cellulitis of right lower limb - Discharge Dispostion Disposition: HOME Condition at time of disposition: Stable - Prescriptions Prescriptions: Cephalexin Monohydrate [Keflex -] 500 mg PO Q6H #28 capsule Tramadol HCl [Ultram -] 50 mg PO Q8H PRN #6 tablet MDD 3 PRN Reason: Pain - Referrals Referrals: Jamila Ivey MD [Primary Care Provider] - - Patient Instructions Printed Discharge Instructions: DI for Cellulitis -- Adult Additional Instructions: Activity as tolerated. Stay hydrated. Tylenol 1000 mg every 8 hours as needed for pain. Elevate the affected areas for 20 minutes every 3-4 hours to reduce swelling. Take Tramadol as needed for severe pain. Blood tests and an ultrasound showed no abnormalities and no clot in the veins. The swelling is probably from an infection. We spoke to Dr. Ivey: the plan is to STOP Ceftin and START Keflex (cephalexin), which was prescribed. Continue your other medications as previously prescribed by your physician. You should follow up with Dr. Ivey as soon as possible regarding today's emergency department visit. CALL the office tomorrow, they will follow up with you at that time and likely arrange for a revisit in the office. Return to the emergency department for any new or concerning symptoms, particularly severe swelling or discoloration, intolerable pain, fever/chills, numbness or weakness. - Post Discharge Activity
[2017-08-13 15:37] LABS: BASOPHIL 0.6 % (0-2.0); EOSINOPHIL 1.7 % (0-4.5); MCH 29.2 pg (25.7-33.7); MCHC 33.6 g/dl (32.0-36.0); MEAN PLT VOLUME 7.6 fl (7.5-11.1); NEUTROPHILS 45.3 % (42.8-82.8); PLATELET COUNT 236 K/MM3 (134-434); RDW 14.7 % (11.6-15.6); WHITE BLOOD COUNT 4.6 K/mm3 (4.0-10.0)
[2017-08-13 15:48] LABS: INR 0.99 (0.82-1.09); PROTHROMBIN TIME (PATIENT) 11.2 SEC (9.98-11.88)
[2017-08-13 15:51] LABS: ACTIVATED PTT 30.3 SECONDS (26.9-34.4)
[2017-08-13] MEDS ORDERED: traMADol HCL 50 MG TABLET ONE (15:53)
[2017-08-13 16:01] LABS: ALBUMIN 3.1 g/dl (3.4-5.0); ALK PHOS 119 U/L (45-117); ANION GAP 6 (8-16); BILIRUBIN,TOTAL 0.2 mg/dL (0.2-1.0); CALCIUM 8.9 mg/dL (8.5-10.1); CO2 28 mmol/L (21-32); CREATININE 1.2 mg/dL (0.55-1.02); GLUCOSE,RANDOM 136 mg/dL (74-106); SGOT/AST 30 U/L (15-37); SGPT/ALT 39 U/L (12-78); TOT PROT 7.7 g/dl (6.4-8.2)
[2017-08-13] MEDS ORDERED: CEPHALEXIN MONOHYDRATE 500 MG CAPSULE (UD) PO ONE (17:50)
[2017-08-13] MEDS ORDERED: CEPHALEXIN MONOHYDRATE 250 MG CAPSULE (FP) ONE (17:57)
[2017-08-13 18:05] VITALS: BP 112/82; PULSE 97; TEMP 97.9
== END 2017-08-13 18:05 | disposition home or self-care (01) ==
LOC: JER 13:23
DX: L03.115 Cellulitis of right lower limb (principal); I10 Essential (primary) hypertension; J44.9 Chronic obstructive pulmonary disease, unspecified; Z21 Asymptomatic human immunodeficiency virus [HIV] infection status
CPT/HCPCS: 36415; 73630-TC-RT; 80053; 85025; 85610; 85730; 93971-TC; 99283-25

== ENCOUNTER 2017-09-25 06:29 | Day surgery (SDC) | payer OTHER ==
--- NOTE | 2017-09-23 15:52 | HP ---
[facility] - Chief Complaint Chief Complaint: 62 year old patienr is here to evaluate post menopausal bleeding and high grade cervical lesion. History of Present Illness: This patient recently had postmenopausal bleeding and a sonogram was not conclusive in making a diagnosis and therefore the patient will undergo a D/C with hysteroscopy as well as a LEEP because a recent pap and cervical biopsies revealed a high grade lesion of the cervix uteri. History Source: Patient Limitations to Obtaining History: No Limitations - Past Medical History Allergies/Adverse Reactions: Allergies Allergy/AdvReac Type Severity Reaction Status Date / Time Penicillins Allergy Unknown Swelling Verified 08/13/17 13:28 [facility] AdvReac Uncoded 08/13/17 13:28 [employer]: Yes: Peripheral Neuropathy. No: Alzheimer's, CVA, Dementia, Migraine, Multiple Sclerosis, Parkinson's, Seizure, Syncope, TIA, Vertigo, Other Cardiovascular: No: AFIB, Aneurysm, Aortic Insufficiency, Aortic Stenosis, CAD, CHF, Deep Vein Thrombosis, HTN, Hyperlipdemia, SC, Mitral Insufficiency, Mitral Stenosis, Murmur, Pulmonary Hypertension, Other Pulmonary: Yes: COPD, Pneumonia Gastrointestinal: Yes: Other (Meredith Esophagitis from EGD 06/19/14). No: Ascites, Cancer, Constipation, Crohn's Disease, Diverticulitis, Diverticulosis, Esophageal Varices, Gastritis, GERD, GI Bleed, Hemorrhoids, Hiatal Hernia, Inflamatory Bowel Disease, Irritable Bowel Disease, Pancreatitis, Peptic Ulcer Disease, Ulcerative Colitis Hepatobiliary: No: Cirrhosis, Cholelithiasis, Cholecystitis, Choledocholithiasis , Hepatitis A, Hepatitis B, Hepatitis C, Other Renal/: No: Renal Failure, Renal Inusuff, BPH, Cancer, Hematuria, Hemodialysis , Neurogenic Bladder, Renal Calculi, UTI, Other ...LMP: 01/04/15 ...: No ...: 3 ...Para: 2 Heme/Onc: Yes: Anemia Infectious Disease: Yes: AIDS, HIV, STD's Musculoskeletal: No: Bursitis, Chronic low back pain, Hemiparesis, Hemiplegia, Osteoarthritis, Paraplegia, Other Rheumatology: No: Fibromyalgia, Gout, Lupus, Rheumatoid Arthritis, Sarcoidosis, Vasculitis, Other ENT: No: Allergic Rhinitis, Sinusitis, Other Endocrine: No: Garrard's Disease, [place]'s Disease, Diabetes Insipidus, Diabetes Mellitus, Hyperparathyroidism, Hyperthyroidism, Hypothyroidism, Osteopenia, SIADH, Other Dermatology: No: Basal Cell, Cellulitis, Eczema, Melanoma, Psoriasis, Squamous Cell, Other Additional Medical History: Neuropathy of the feet. anorexia. breast cyst removed. ovarian cyst removed. c/s for twins - Current Medications Current Medications: Home Medications Medication Instructions Recorded Abacavir Sulfate/Lamivudine 1 tablet PO DAILY #30 tablet 08/20/17 [Epzicom Tablet] Albuterol Sulfate Inhaler - 1 - 2 inh PO Q4H #1 inhaler 08/20/17 [Ventolin HFA Inhaler -] Darunavir Ethanolate [Prezista -] 800 mg PO DAILY #30 tablet 08/20/17 Ritonavir [Norvir -] 100 mg PO DAILY #30 tab 08/20/17 Tenofovir Disoproxil Fumarate 300 mg NR DAILY #30 tablet 08/20/17 [Viread -] Cholecalciferol (Vitamin D3) 1,000 unit PO DAILY #30 tab 09/17/17 [Vitamin D3 -] Gabapentin 300 mg PO TID 09/17/17 Tiotropium [place] [Spiriva] PO DAILY 09/17/17 Valacyclovir HCl [Valtrex] 500 mg PO DAILY 09/17/17 Mirtazapine [Remeron -] 15 mg PO DAILY #30 tablet 09/23/17 Olanzapine [Zyprexa] 2.5 mg PO HS #30 tablet 09/23/17 Zolpidem Tartrate [Ambien] 10 mg PO HS #30 tablet MDD 1 09/23/17 [place] Physical Exam - Physical Examination General Appearance: Well Nourished, Well Developed, Alert & Oriented x3 ENT: Clear, No Discharge, No masses Lung: Clear to auscultation Heart: Regular rate & rhythm, Normal S1, Normal S2 Breasts: Soft, Non-Tender, No masses bilaterally Abdomen: Soft, No tenderness, No CVA Extremities: No edema, No tenderness/swelling Pelvic Exam: Within normal limits External Genitalia, Within normal limits Vagina, Within normal limits Cervix, Within normal limits Uterus, Within normal limits [facility] Neurological: Intact, Alert, Oriented Satellite Impression/Plan - Impression/Plan Impression: postmenopausal bleeding. high grade cervical lesion Operative Procedure: Leep. D/C with hysteroscopy Date to be Performed: 09/25/17
[2017-09-24 08:54] VITALS: BMI 23.7
[~2017-09-25 06:29] MED LIST: FERRIC SUBSULFATE 500 ML BOTTLE TP ONE
[2017-09-25 06:58] VITALS: TEMP 97.6
[2017-09-25] MEDS ORDERED: LIDOCAINE HCL/PF 2% SDV 5ML VIAL ONE (07:45)
[2017-09-25] MEDS ORDERED: MIDAZOLAM HCL 2 MG/2 ML SINGLE DOSE VIAL ONE (07:45)
[2017-09-25] MEDS ORDERED: PROPOFOL 20 ML ONE ×2 (07:45)
[2017-09-25] MEDS ORDERED: CLINDAMYCIN PHOSPHATE 600 MG/4 ML VIAL IVPB ONE (08:06)
[2017-09-25] MEDS ORDERED: IODINE/POTASSIUM IODIDE 5%/10% 14 ML BOTTLE NR ONE (08:09)
[2017-09-25] MEDS ORDERED: FERRIC SUBSULFATE 500 ML BOTTLE TP ONE (08:32)
[2017-09-25] MEDS ORDERED: ONDANSETRON 4 MG/2 ML VIAL IVPUSH PRN (08:52)
[2017-09-25] MEDS ORDERED: ACETAMINOPHEN 500 MG TABLET (FP) PO PRN (08:52)
[2017-09-25] MEDS ORDERED: oxyCODONE HCL 5 MG TABLET PO PRN (08:52)
[2017-09-25] MEDS ORDERED: LACTATED RINGERS SOLUTION 1,000 ML IV SCH (09:00)
--- NOTE | 2017-09-25 09:23 | OP ---
DATE OF OPERATION: 09/25/2017 PREOPERATIVE DIAGNOSIS: Postmenopausal bleeding and high-grade lesion of cervix of uterus. POSTOPERATIVE DIAGNOSIS: Postmenopausal bleeding, high-grade lesion of the cervix of the uterus and atrophy of the vaginal and endometrial tissue. OPERATIVE PROCEDURE: Dilation and curettage, endocervical curettage, hysteroscopy, and also loop electrosurgical excision procedure cone biopsy. SURGEON: Talha Jones MD ANESTHESIA: Jo Mccormack MD ESTIMATED BLOOD LOSS: 10 mL. DESCRIPTION OF PROCEDURE: The patient was brought to the operating room, placed in the supine position, given anesthesia by the anesthesiologist, placed in the supine position and then the lithotomy position, prepped and draped in the usual manner. A colposcopy was carried out and the transformation zone was not noted on the cervix. After this was accomplished, the anterior lip of the cervix was grasped with a tenaculum and the uterus was sounded to 2 inches. The cervix was then dilated to allow hysteroscopy. Hysteroscopy was performed and the endometrium appeared atrophic. There were no lesions noted in the endometrial cavity. This was followed by a D&C using a small curet, and the D&C also included an ECC (endocervical curettage). After that was accomplished, the LEEP was then carried out using a 1 x 2 loop at [address] for cautery and cutting. Several swipes of the cervical tissue were removed and sent to Pathology along with the endocervical and endometrial tissue. Hemostasis was achieved using a 5-mm ball electrode. The patient was also noted to have a vaginal tear on the right wall of the vagina which was cauterized as well using the 5-mm electrode. Hemostasis was achieved by using this electrode. The patient was noted to have atrophic vaginal tissue. She was also noted to have a small cystocele. The procedure was then ended by reassuring that there was good hemostasis from the LEEP and from the vaginal right wall bleeding. The hemostasis was achieved with the cautery instrument. After the patient was stable, with good hemostasis, she was transferred to the recovery room in good condition. TALHA JONES M.D. CARLOS/[id number]
[2017-09-25] MEDS ORDERED: ACETAMINOPHEN 325 MG TABLET (FP) ONE (11:36)
[2017-09-25 12:23] VITALS: BP 112/70; PULSE 72
--- NOTE | 2017-09-30 16:31 | PATH ---
Surgical Pathology Report Patient Name: ANIKA ALLEN [facility]. Rec. #: [id number] /Age/Gender: 1955 (Age: 62) / F Account: [id number] Location: [facility] SURGICAL Taken: 09/25/2017 Received: 09/25/2017 Reported: 09/30/2017 Physicians: Benjamín Jones M.D. Specimen(s) Received A: ENDOCERVICAL CURETTINGS AND ENDOMETRIAL CURETTINGS B: CERVIX LEEP CONE BIOPSY Clinical History Postmenopausal bleeding, high grade lesion of cervix Final Diagnosis A. ENDOCERVICAL AND ENDOMETRIAL CURETTINGS, DILATATION AND CURETTAGE: SCANT FRAGMENTS OF DYSPLASTIC SQUAMOUS EPITHELIUM, SEE COMMENT. ATROPHIC ENDOMETRIUM. BENIGN ENDOCERVICAL TISSUE. B. CERVIX, LOOPELECTROSURGICAL EXCISIONPROCEDURE/CONE BIOPSY: CERVICAL SQUAMOUS MUCOSA WITH LOW GRADE SQUAMOUS INTRAEPITHELIAL LESION (LSIL). LSIL FOCALLY EXTENDS TO INKED SURGICAL MARGINS. FOCAL CHRONIC INFLAMMATION, AND PRIOR BIOPSY CHANGES PRESENT. TRANSFORMATION ZONE: ABSENT. Comment: Part A, The fragments are unoriented and detached limiting grading of dysplasia. However, low-grade dysplasia (LSIL) is favored. Part B, Immunohistochemical stains performed at [place], [place] ([id number]) and interpreted at [facility] for p16 shows weak focal staining. Proliferative marker, [id number] was utilized to evaluate this case. Findings discussed with Dr. Jones. Electronically Signed Aleksandra Guzman M.D. Gross Description A. Received in formalin labeled "endocervical and endometrial curettings," is a 0.5 x 0.3 x 0.1 cm aggregate of lackey red soft tissue fragments. The formalin is filtered and the specimen is entirely submitted in one cassette. B. Received in formalin labeled "cervix LEEP cone biopsy," are 6 lackey, irregular, unoriented portions tissue ranging from 0.6 x 0.4 x 0.2 cm to 2.1 x 1.2 x 0.3 cm. Some of the portions display lackey mucosa. The specimens are inked blue, serially sectioned and entirely submitted in 4 cassettes DL09/25/2017 saudi09/25/2017
== END 2017-09-25 12:23 | disposition home or self-care (01) ==
LOC: JASU-SURG 06:29
PROVIDERS: ATTEND Obstetrics & Gynecology
PROC: 0UBC8ZX Excision of Cervix, Via Natural or Artificial Opening Endoscopic, Diagnostic (ICD-10-PCS; principal; 2017-09-25 07:30)
DX: N95.0 Postmenopausal bleeding (principal); N89.3 Dysplasia of vagina, unspecified; N87.0 Mild cervical dysplasia
CPT/HCPCS: 94760

== ENCOUNTER 2017-12-03 09:38 | Emergency (ER) | payer OTHER ==
[2017-12-03 09:50] VITALS: BMI 23.7
[2017-12-03] MEDS ORDERED: methylPREDNISolone NA SUCC 125 MG/2 ML VIAL IVPB ONE (10:43)
[2017-12-03] MEDS ORDERED: ALBUTEROL SO4 2.5/IPRATROPIUM 0.5 INH SOL 3 ML VIAL.NEB. NEB ONE ×2 (10:46→10:57)
--- NOTE | 2017-12-03 10:52 | PDOC ---
History of Present Illness - General Chief Complaint: Shortness of Breath Stated Complaint: WHEEZING, BODY CRAMPS Time Seen by Provider: 12/03/17 10:13 History Source: Patient Exam Limitations: No Limitations - History of Present Illness Initial Comments: 12/03/17 10:39 62-year-old female with history of HIV, asthma, COPD, and neuropathy presents to the ED with complaints of wheezing intimately for the past few weeks associated with a nonproductive cough unrelieved with inhalers. Patient denies fever, chills chest pain, or palpitations. Patient does state also has had some cramping to her lower extremities for the past 4 days in her calves causing her difficulty ambulating. Patient also states has had bouts of diarrhea for the past 2 days despite taking her medication as prescribed. Patient denies abdominal pain, weakness, urinary complaints, or rash. Timing/Duration: getting worse Severity: moderate Associated Symptoms: reports: other Past History - Travel Traveled outside of the country in the last 30 days: No - Past Medical History Allergies/Adverse Reactions: Allergies Allergy/AdvReac Type Severity Reaction Status Date / Time Penicillins Allergy Unknown Swelling Verified 12/03/17 09:46 MAYONAISE AdvReac Uncoded 12/03/17 09:46 Home Medications: Ambulatory Orders Albuterol Sulfate Inhaler - [Ventolin HFA Inhaler -] 1 - 2 inh PO Q4H #1 inhaler 08/20/17 Cholecalciferol (Vitamin D3) [Vitamin D3 -] 1,000 unit PO DAILY #30 tab Gabapentin 300 mg PO TID 09/17/17 Tiotropium Pooler [Spiriva] 1 puff PO DAILY 09/17/17 Abacavir Sulfate/Lamivudine [Epzicom Tablet] 1 tablet PO DAILY #30 tablet Darunavir Ethanolate [Prezista -] 800 mg PO DAILY #30 tablet 10/29/17 Ritonavir [Norvir -] 100 mg PO DAILY #30 tab 10/29/17 Tenofovir Disoproxil Fumarate [Viread -] 300 mg PO DAILY #30 tablet 10/29/17 Valacyclovir HCl [Valtrex] 500 mg PO DAILY #30 tablet 10/29/17 Mirtazapine [Remeron -] 15 mg PO DAILY #30 tablet 11/05/17 Olanzapine [Zyprexa] 2.5 mg PO HS #30 tablet 11/05/17 Zolpidem Tartrate [Ambien] 5 mg PO HS #30 tablet MDD 1 11/05/17 predniSONE [Deltasone -] 40 mg PO DAILY #6 tablet 12/03/17 Anemia: Yes Asthma: No Cancer: No Cardiac Disorders: No CVA: No COPD: Yes CHF: No Dementia: No Diabetes: No GI Disorders: Yes (GERD) Disorders: No HTN: Yes Hypercholesterolemia: No Liver Disease: No Psychiatric Problems: Yes (ANXIETY) Seizures: No Other medical history: ANOREXIA - Surgical History Abdominal Surgery: Yes (EXPLORATORY) - Immunization History Immunization Up to Date: Yes - Suicide/Smoking/Psychosocial Hx Smoking Status: No Smoking History: Current some day smoker Have you smoked in the past 12 months: Yes Number of Cigarettes Smoked Daily: 2 If you are a former smoker, when did you quit?: 2 months ago Cigars Per Day: 0 Information on smoking cessation initiated: No 'Breaking Loose' booklet given: 08/06/15 Hx Alcohol Use: No Drug/Substance Use Hx: No Substance Use Type: None Hx Substance Use Treatment: No Patient Lives Alone: No Review of Systems - Review of Systems Able to Perform ROS?: Yes Constitutional: No: Symptoms Reported HEENTM: No: Symptoms Reported Respiratory: Yes: Cough, Wheezing Cardiac (ROS): No: Symptoms Reported ABD/GI: Yes: Diarrhea. No: Poor Appetite, Poor Fluid Intake : No: Symptoms Reported Musculoskeletal: Yes: Muscle Pain (bilateral calves) Hematologic/Lymphatic: Yes: See HPI *Physical Exam - Vital Signs Last Vital Signs Temp Pulse Resp BP Pulse Ox 97.8 F 108 H 20 135/96 98 12/03/17 09:46 12/03/17 09:46 12/03/17 09:46 12/03/17 09:46 12/03/17 09:46 - Physical Exam General Appearance: Yes: Nourished, Appropriately Dressed. No: Apparent Distress HEENT: positive: TMs Normal, Pharynx Normal. negative: Pale Conjunctivae Neck: positive: Normal Thyroid, Supple Respiratory/Chest: positive: Wheezing (expiratory bilateral). negative: Respiratory Distress, Accessory Muscle Use Cardiovascular: positive: Regular Rhythm, Tachycardia. negative: Murmur Gastrointestinal/Abdominal: positive: Soft. negative: Tenderness Extremity: positive: Normal Capillary Refill, Normal Inspection, Normal Range of Motion, Tender (mild tenderness to bilateral calves. negative Homans). negative: Pedal Edema, Swelling Integumentary: positive: Normal Color, Warm, Moist Neurologic: positive: Motor Strength 5/5 ( ambulatory) ED Treatment Course - LABORATORY CBC & Chemistry Diagram: 12/03/17 10:50 12/03/17 13:10 - RADIOLOGY Radiology Studies Ordered: Category Date Time Status CHEST X-RAY PORTABLE* [RAD] Stat Radiology 12/03/17 10:20 Ordered Medical Decision Making - Medical Decision Making 12/03/17 12:50 Patient here for evaluation of intermittent wheezing for the past few weeks unrelieved with spur removal which she takes for COPD. Patient also complaining of bilateral calf pain which she describes a cramping sensation. Patient also discloses episodic diarrhea for the past few days. Patient on exam had no acute findings for wheezing on expiration bilateral and slightly tachycardic at 106. Patient ordered for Solu-Medrol, DuoNeb 4, chest x-ray, labs and duplex of bilateral lower extremity secondary to history and clinical exam. 12/03/17 12:47 Chest x-ray shows no acute pathology. Patient states wheezing subsided after receiving the DuoNeb. Patient awaiting ultrasound. 12/03/17 13:50 Vascular duplex shows no evidence of deep venous thrombosis in both lower extremity. Small Barkley's cyst in the right and left popliteal fossa is noted. Chemistry redrawn secondary to hemolyzation 12/03/17 13:52 Laboratory Tests 10/29/17 12/03/17 12/03/17 10:00 10:50 13:10 WBC 8.0 D Hgb 13.4 D Hct 39.4 MCV 88.7 RDW 15.9 H Plt Count 353 D MPV 8.2 Neutrophils % 53.5 Sodium 137 134 L Potassium 4.0 Chloride 97 L Carbon Dioxide 20 L Anion Gap 17 H BUN 25 H Creatinine 1.2 H Random Glucose 121 H Magnesium 2.6 H Total Bilirubin 0.5 D AST 37 ALT 44 Alkaline Phosphatase 195 H Total Protein 9.5 H Electrolyte imbalance likely due to diarrhea and poor by mouth intake. Patient ordered for 1 L fluid. 12/03/17 16:43 Patient's lung exam clear to auscultation. Patient states feeling much better. Patient will be discharged home. We'll call patient with urine results. 12/03/17 17:27 Laboratory Tests 12/03/17 16:13 Urine Protein 1+ H Urine Glucose (UA) Negative Urine Ketones 1+ H Urine Blood 1+ H Urine Nitrite Negative Urine Bilirubin Negative Urine Urobilinogen Negative Ur Leukocyte Esterase Trace Urine WBC (Auto) 8 Urine RBC (Auto) None Ur Epithelial Cells Rare Granular Casts 10 Selected Entries 12/03/17 12/03/17 14:13 14:14 Temperature 98.8 F Pulse Rate [ 103 H Radial] Respiratory 18 Rate Blood Pressure 123/79 [Left Arm] O2 Sat by Pulse 98 Oximetry (%) *DC/Admit/Observation/Transfer Diagnosis at time of Disposition: Asthma exacerbation - Discharge Dispostion Disposition: HOME Condition at time of disposition: Good - Prescriptions Prescriptions: predniSONE [Deltasone -] 40 mg PO DAILY #6 tablet - Referrals Referrals: Jamila Ivey MD [Primary Care Provider] - - Patient Instructions Printed Discharge Instructions: DI for Asthma -- Adult Additional Instructions: Please take prednisone as prescribed for the next 3 days starting tomorrow. Please use your inhalers as needed for wheezing. Please drink plenty of fluids and rest. Please also follow-up with your primary care physician or return to ED if symptoms worsen. - Post Discharge Activity
[2017-12-03] MEDS: ALBUTEROL SO4 2.5/IPRATROPIUM 0.5 INH SOL 3 ML VIAL.NEB. NEB SCH ×4 (10:54→11:38)
[2017-12-03] MEDS ORDERED: methylPREDNISolone NA SUCC 125 MG/2 ML VIAL ONE (10:57)
[2017-12-03 11:04] LABS: BASO % 1.1 % (0-2.0); EOS % 0.3 % (0-4.5); HEMATOCRIT 39.4 % (32.4-45.2); HEMOGLOBIN 13.4 GM/dL (10.7-15.3); LYMPH % 34.6 % (8-40); MCH 30.1 pg (25.7-33.7); MEAN CELL VOLUME 88.7 fl (80-96); MEAN PLT VOLUME 8.2 fl (7.5-11.1); MONO % 10.5 % (3.8-10.2); NEUT % 53.5 % (42.8-82.8); PLATELET COUNT 353 K/MM3 (134-434); RBC 4.44 M/mm3 (3.60-5.2); RDW 15.9 % (11.6-15.6)
[2017-12-03 13:49] LABS: ALBUMIN 4.2 g/dl (3.4-5.0); ALK PHOS 195 U/L (45-117); ANION GAP 17 (8-16); BILIRUBIN,TOTAL 0.5 mg/dL (0.2-1.0); BLOOD UREA NITROGEN 25 mg/dL (7-18); CALCIUM 9.1 mg/dL (8.5-10.1); CHLORIDE 97 mmol/L (98-107); CO2 20 mmol/L (21-32); CREATININE 1.2 mg/dL (0.55-1.02); GLUCOSE,RANDOM 121 mg/dL (74-106); MAGNESIUM 2.6 mg/dL (1.8-2.4); SGOT/AST 37 U/L (15-37); SGPT/ALT 44 U/L (12-78); SODIUM 134 mmol/L (136-145); TOT PROT 9.5 g/dl (6.4-8.2)
[2017-12-03] MEDS ORDERED: SODIUM CHLORIDE 1,000 ML IV STA (13:51)
--- NOTE | 2017-12-03 14:12 | EKG ---
Test Reason : Blood Pressure : / mmHG Vent. Rate : 093 BPM Atrial Rate : 093 BPM P-R Int : 154 ms QRS Dur : 076 ms QT Int : 368 ms P-R-T Axes : 064 064 071 degrees QTc Int : 457 ms NORMAL SINUS RHYTHM POSSIBLE LEFT ATRIAL ENLARGEMENT BORDERLINE ECG WHEN COMPARED WITH ECG OF 17-SEP-2017 11:10, NO SIGNIFICANT CHANGE WAS FOUND Confirmed by ISMAEL STRATTON MD ([id number]) on 12/03/2017 2:12:18 PM Referred By: Confirmed By:ISMAEL STRATTON MD
[2017-12-03 14:14] VITALS: BP 123/79; PULSE 103
[2017-12-03 14:15] VITALS: TEMP 98.8
[2017-12-03 16:48] LABS: URINE APPEARANCE CLEAR; URINE BILIRUBIN NEGATIVE (<2.0 mg/dL); URINE BLOOD 1+ (NEGATIVE); URINE COLOR YELLOW; URINE GLUCOSE (UA) NEGATIVE (NEGATIVE); URINE KETONE 1+ (NEGATIVE); URINE LEUK ESTERASE TRACE (NEGATIVE); URINE NITRITE NEGATIVE (NEGATIVE); URINE UROBILINOGEN NEGATIVE mg/dL (0.2-1.0)
[2017-12-03 17:01] LABS: URINE PROTEIN 1+ (NEGATIVE)
[2017-12-03 17:03] LABS: EPI CELLS RARE /HPF (FEW); GRANULAR CASTS 10 /lpf; URINE MUCUS RARE
== END 2017-12-03 16:50 | disposition home or self-care (01) ==
LOC: JER 09:38
PROC: 3E0F7GC Introduction of Other Therapeutic Substance into Respiratory Tract, Via Natural or Artificial Opening (ICD-10-PCS; principal; 2017-12-03)
DX: J45.909 Unspecified asthma, uncomplicated (principal); R25.2 Cramp and spasm; M79.1 Myalgia; R19.7 Diarrhea, unspecified; J44.9 Chronic obstructive pulmonary disease, unspecified; G62.9 Polyneuropathy, unspecified; K21.9 Gastro-esophageal reflux disease without esophagitis; Z87.891 Personal history of nicotine dependence; Z21 Asymptomatic human immunodeficiency virus [HIV] infection status
CPT/HCPCS: 36415; 71045-TC-FY; 80053; 81003; 81015; 83735; 85025; 93005; 93010; 93970-TC; 99284-25; J7030

== ENCOUNTER 2017-12-15 13:50 | Inpatient (IN) | payer OTHER ==
[2017-12-15] MEDS ORDERED: ONDANSETRON 4 MG/2 ML VIAL IVPUSH ONE (15:20)
[2017-12-15] MEDS ORDERED: SODIUM CHLORIDE 1,000 ML IV STA ×2 (15:20→16:37)
--- NOTE | 2017-12-15 15:21 | PDOC ---
History of Present Illness - General Chief Complaint: Vomiting/Diarrhea Stated Complaint: NAUSEA/DIARRHEA Time Seen by Provider: 12/15/17 15:09 - History of Present Illness Initial Comments: 12/15/17 15:29 The patient is a 62 year old female with a history of HIV (CD4 224), HTN, HLD who presents for evaluation of nausea, vomiting, and diarrhea. The patient reports a 4 day history of nausea, diarrhea, and multiple episodes of non- bilious, non-bloody vomiting. She reports continued symptoms as well as associated lightheadedness and generalized weakness prompting her presentation to the ED for evaluation. She reports some subjective fevers at home, but otherwise denies fevers, chills, SOB, chest pain, abdominal pain, or changes with urination. Past History - Past Medical History Allergies/Adverse Reactions: Allergies Allergy/AdvReac Type Severity Reaction Status Date / Time Penicillins Allergy Unknown Swelling Verified 12/15/17 13:55 MAYONAISE AdvReac Uncoded 12/15/17 13:55 Home Medications: Ambulatory Orders Albuterol Sulfate Inhaler - [Ventolin HFA Inhaler -] 1 - 2 inh PO Q4H #1 inhaler 08/20/17 Cholecalciferol (Vitamin D3) [Vitamin D3 -] 1,000 unit PO DAILY #30 tab Abacavir Sulfate/Lamivudine [Epzicom Tablet] 1 tablet PO DAILY #30 tablet Darunavir Ethanolate [Prezista -] 800 mg PO DAILY #30 tablet 10/29/17 Ritonavir [Norvir -] 100 mg PO DAILY #30 tab 10/29/17 Tenofovir Disoproxil Fumarate [Viread -] 300 mg PO DAILY #30 tablet 10/29/17 Valacyclovir HCl [Valtrex] 500 mg PO DAILY #30 tablet 10/29/17 Mirtazapine [Remeron -] 15 mg PO DAILY #30 tablet 11/05/17 Olanzapine [Zyprexa] 2.5 mg PO HS #30 tablet 11/05/17 Zolpidem Tartrate [Ambien] 5 mg PO HS #30 tablet MDD 1 11/05/17 Fluticasone/Vilanterol [Breo Ellipta 100-25 Mcg INH] 1 each IH 12/16/17 Anemia: Yes Asthma: No Cancer: No Cardiac Disorders: No CVA: No COPD: Yes CHF: No DVT: No Dementia: No Diabetes: No GI Disorders: Yes (GERD) Disorders: No HTN: Yes Hypercholesterolemia: No Liver Disease: No Psychiatric Problems: Yes (ANXIETY) Seizures: No - Surgical History Abdominal Surgery: Yes (EXPLORATORY) - Immunization History Immunization Up to Date: Yes - Suicide/Smoking/Psychosocial Hx Smoking Status: No Smoking History: Never smoked Have you smoked in the past 12 months: Yes Number of Cigarettes Smoked Daily: 2 If you are a former smoker, when did you quit?: 2 months ago Cigars Per Day: 0 Information on smoking cessation initiated: No 'Breaking Loose' booklet given: 12/15/17 Hx Alcohol Use: No Drug/Substance Use Hx: No Substance Use Type: None Hx Substance Use Treatment: No Review of Systems - Review of Systems Comments:: 12/15/17 15:32 Constitutional: Chills, Fatigue. No fevers, malaise HEENT: No Rhinorrhea, nasal congestion, visual changes Cardiovascular: Lightheadedness. No chest pain, syncope, palpitations, Respiratory: No Cough, SOB, Hemoptysis, Gastrointestinal: Nausea, Vomiting, Diarrhea. No Abdominal pain, Constipation, Melena Genitourinary: No Dysuria, Frequency, Urgency, Hesitancy, Hematuria, Flank pain Musculoskeletal: No Myalgia, arthralgia Skin: No rashes, itching, bruising, pallor Neurologic: No Headache, Dizziness, Numbness, Weakness, or Tingling Psychiatric: No Hallucinations. No SI or HI *Physical Exam - Vital Signs Last Vital Signs Temp Pulse Resp BP Pulse Ox 97.9 F 102 H 18 95/76 98 12/15/17 13:53 12/15/17 13:53 12/15/17 13:53 12/15/17 13:53 12/15/17 13:53 - Physical Exam Comments: 12/15/17 15:33 General Appearance: Nourished. No Apparent Distress HEENT: EOMI, JOHNNA. No Pharyngeal Erythema, Tonsillar Exudate, Tonsillar Erythema Neck: No Cervical Lymphadenopathy Respiratory/Chest: Lungs Clear, Normal Breath Sounds. No Crackles, Rales, Rhonchi, Wheezing Cardiovascular: Regular Rhythm, Regular Rate. No Murmur, Gallops, Rubs Gastrointestinal/Abdominal: Normal Bowel Sounds, Soft. No Guarding, Rebound, Tenderness Musculoskeletal: No CVA Tenderness Extremity: Normal Capillary Refill Integumentary: Normal Color, Dry, Warm Neurologic: Fully Oriented, Alert, Normal Mood/Affect, Normal Response, ED Treatment Course - LABORATORY CBC & Chemistry Diagram: 12/17/17 07:20 12/17/17 07:20 Medical Decision Making - Medical Decision Making 12/15/17 15:33 The patient is a 62 year old female with a history of HIV (CD4 224), HTN, HLD who presents for evaluation of nausea, vomiting, and diarrhea. Differential includes but is not limited to: Gastroenteritis, Pancreatitis, Bacterial Diarrheal illness, infectious, metabolic derangement. The patient's last CD4 count was 224. Most severe diarrheal illnesses associated with AIDS occur under CD4 counts of 180 making us less concerned given the patient's last CD4 count. However we will discuss the case with Dr. Ivey with ID for further guidance. We will also obtain a cbc, cmp, lipase, mg, phos, ua to evaluate further for possible etiologies. We will treat in the meantime with iv fluids, zofran and continue to monitor and reassess. 12/15/17 19:49 CBC demonstrated a wbc of 1.9. We discussed the case with Dr. Ivey who is concerned for a bacterial gastroenteritis and is recommending admission for stool cultures and iv antibiotics for further management given her leukopenia and symptoms. We will treat the patient with ceftriaxone and flagyl here in the ED and continue to maintain iv fluid hydration. We discussed the case with the hospitalist team who accepted the patient for admission. *DC/Admit/Observation/Transfer Diagnosis at time of Disposition: Leukopenia Qualifiers: Leukopenia type: unspecified Qualified Code(s): D72.819 - Decreased white blood cell count, unspecified Diarrhea Qualifiers: Diarrhea type: unspecified type Qualified Code(s): R19.7 - Diarrhea, unspecified Vomiting Qualifiers: Vomiting type: unspecified Vomiting Intractability: unspecified Nausea presence : unspecified Qualified Code(s): R11.10 - Vomiting, unspecified - Discharge Dispostion Condition at time of disposition: Stable Admit: Yes - Referrals - Patient Instructions - Post Discharge Activity
[2017-12-15 16:22] LABS: HEMATOCRIT 41.2 % (32.4-45.2); HEMOGLOBIN 13.6 GM/dL (10.7-15.3); MCH 29.3 pg (25.7-33.7); MCHC 33.1 g/dl (32.0-36.0); MEAN CELL VOLUME 88.6 fl (80-96); MEAN PLT VOLUME 9.1 fl (7.5-11.1); RBC 4.65 M/mm3 (3.60-5.2); RDW 15.4 % (11.6-15.6)
[2017-12-15] MEDS ORDERED: ONDANSETRON 4 MG/2 ML VIAL ONE (16:39)
[2017-12-15] MEDS ORDERED: CEFTRIAXONE 1 GM in DEXTROSE 5%-WATER - 100 ML IVPB ONE (16:57)
--- NOTE | 2017-12-15 17:04 | PDOC ---
Attending Attestation - Resident Resident Name: Bear Hoskins - ED Attending Attestation I have performed the following: I have examined & evaluated the patient, The case was reviewed & discussed with the resident, I agree w/resident's findings & plan, Exceptions are as noted - HPI HPI: 12/15/17 16:59 62-year-old female with history of hypertension, hyperlipidemia, HIV with undetectable viral load reported CD4 count greater than 500 presents with nausea , vomiting and diarrhea for 5 days. Patient denies sick contacts. Does report that she recently traveled from [place]. Denies bad food. Stated no abdominal pain or fevers report occasional chills. Stated she's been unable to take her HIV medications because of nausea. Stated that she has had numerous loose stools and nausea. - Physicial Exam PE: 12/15/17 16:59 GENERAL: Awake, alert, and fully oriented, in no acute distress. Dry mucous membranes. HEAD: No signs of trauma EYES: PERRLA, EOMI, sclera anicteric, conjunctiva clear ENT: Auricles normal inspection, hearing grossly elliot NECK: Normal ROM, supple LUNGS: Breath sounds equal, clear to auscultation bilaterally. No wheezes, and no crackles HEART: Regular rate and rhythm, normal S1 and S2, no murmurs, rubs or gallops ABDOMEN: Soft, nontender. No guarding, no rebound. No masses EXTREMITIES: Normal range of motion, no edema. No clubbing or cyanosis. No cords, erythema, or tenderness NEUROLOGICAL: Cranial nerves II through XII grossly intact. Normal speech, normal gait SKIN: Warm, Dry, normal turgor, no rashes or lesions noted. - Medical Decision Making 12/15/17 17:00 Vital Signs Temp Pulse Resp BP Pulse Ox 97.9 F 102 H 18 95/76 98 12/15/17 13:53 12/15/17 13:53 12/15/17 13:53 12/15/17 13:53 12/15/17 13:53 CBC, BMP 12/15/17 15:46 Pt noted with WBC 1.9 with gastroenteritis. Given hx of HIV, case discussed with Dr. Ivey. She recommends admission, IVF, and IV antibiotics. Cultures and admission. Heart Score/ECG Review #1 ECG reviewed & interpreted by me at: 19:00 12/15/17 18:56 NSR 90, no std/mikki, normal axis, normal intervals, QTC 455 msec
[2017-12-15] MEDS ORDERED: cefTRIAXone SODIUM 1 GM VIAL ONE (17:35)
[2017-12-15] MEDS ORDERED: CEFTRIAXONE 1 GM/50 ML BAG ONE (17:37)
[2017-12-15 19:34] LABS: PHOSPHOROUS 3.2 mg/dL (2.5-4.9)
[2017-12-15 19:38] LABS: ALBUMIN 2.6 g/dl (3.4-5.0); ALK PHOS 95 U/L (45-117); ANION GAP 9 (8-16); BILIRUBIN,TOTAL 0.1 mg/dL (0.2-1.0); BLOOD UREA NITROGEN 23 mg/dL (7-18); CHLORIDE 106 mmol/L (98-107); CO2 23 mmol/L (21-32); CREATININE 1.3 mg/dL (0.55-1.02); GLUCOSE,RANDOM 88 mg/dL (74-106); POTASSIUM 3.4 mmol/L (3.5-5.1); SGOT/AST 150 U/L (15-37); SGPT/ALT 82 U/L (12-78); SODIUM 138 mmol/L (136-145); TOT PROT 6.2 g/dl (6.4-8.2)
[2017-12-15 19:40] LABS: LIPASE 545 U/L (73-393)
[2017-12-15 19:42] LABS: CALCIUM 6.9 mg/dL (8.5-10.1)
[2017-12-15 19:52] LABS: SMUDGE CELLS FEW
[2017-12-15 19:53] LABS: PLATELET ESTIMATE ADEQUATE
[2017-12-15 19:55] LABS: PLATELET COUNT 147 K/MM3 (134-434)
[2017-12-15 19:56] LABS: WHITE BLOOD COUNT 1.9 K/mm3 (4.0-10.0)
[2017-12-15 21:29] LABS: URINE APPEARANCE CLOUDY; URINE BILIRUBIN NEGATIVE (<2.0 mg/dL); URINE BLOOD 2+ (NEGATIVE); URINE COLOR YELLOW; URINE GLUCOSE (UA) NEGATIVE (NEGATIVE); URINE KETONE TRACE (NEGATIVE); URINE NITRITE NEGATIVE (NEGATIVE); URINE UROBILINOGEN NEGATIVE mg/dL (0.2-1.0)
[2017-12-15 21:43] LABS: URINE LEUK ESTERASE 3+ (NEGATIVE); URINE PROTEIN 3+ (NEGATIVE)
[2017-12-15 21:44] LABS: EPI CELLS FEW /HPF (FEW); URINE BACTERIA FEW /hpf (NONE SEEN); URINE MUCUS RARE
--- NOTE | 2017-12-15 22:37 | PN ---
Teaching Attending Note Name of Resident: Martinez Rivas ATTENDING PHYSICIAN STATEMENT I saw and evaluated the patient. I reviewed the resident's note and discussed the case with the resident. I agree with the resident's findings and plan as documented. SUBJECTIVE: 62 F with pmhx. of HIV (CD 4 224), HTN, HLD, HIV who presents with nausea, vomiting, diarrhea. States this began 4 days ago. Notes she has had some subjective fevers at home. No chest pain, pressure, or shortness of breath. States her nausea, vomiting and diarrhea has now resolved. No chest pain or pressure. Notes she has not been on any recent antibiotics and denies any sick contacts. OBJECTIVE: Physical: VS: Vital Signs Period Temp Pulse Resp BP Sys/Inman Pulse Ox Last 24 Hr 97.9 F 102 18 95/76 98 GEN: NAD, Resting in bed, AA0X3 HEENT: NCAT, PERRL, Throat without erythema or exudates CARD: RRR S1, S2 RESP: CTAB ABD: BSx4, SOFT, Non-distended and non- tender to palpation EXT: - C/C/E CBCD WBC 1.9 K/mm3 (4.0-10.0) L* D 12/15/17 15:46 RBC 4.65 M/mm3 (3.60-5.2) 12/15/17 15:46 Hgb 13.6 GM/dL (10.7-15.3) 12/15/17 15:46 Hct 41.2 % (32.4-45.2) 12/15/17 15:46 MCV 88.6 fl (80-96) 12/15/17 15:46 MCHC 33.1 g/dl (32.0-36.0) 12/15/17 15:46 RDW 15.4 % (11.6-15.6) 12/15/17 15:46 Plt Count 147 K/MM3 (134-434) D 12/15/17 15:46 MPV 9.1 fl (7.5-11.1) D 12/15/17 15:46 CMP Sodium 138 mmol/L (136-145) 12/15/17 18:35 Potassium 3.4 mmol/L (3.5-5.1) L 12/15/17 18:35 Chloride 106 mmol/L (98-107) 12/15/17 18:35 Carbon Dioxide 23 mmol/L (21-32) 12/15/17 18:35 Anion Gap 9 (8-16) 12/15/17 18:35 BUN 23 mg/dL (7-18) H 12/15/17 18:35 Creatinine 1.3 mg/dL (0.55-1.02) H 12/15/17 18:35 Creat Clearance w eGFR 41.64 (>60) 12/15/17 18:35 Random Glucose 88 mg/dL (74-106) 12/15/17 18:35 Calcium 6.9 mg/dL (8.5-10.1) L* 12/15/17 18:35 Total Bilirubin 0.1 mg/dL (0.2-1.0) L D 12/15/17 18:35 AST 150 U/L (15-37) H 12/15/17 18:35 ALT 82 U/L (12-78) H 12/15/17 18:35 Alkaline Phosphatase 95 U/L (45-117) 12/15/17 18:35 Total Protein 6.2 g/dl (6.4-8.2) L 12/15/17 18:35 Albumin 2.6 g/dl (3.4-5.0) L 12/15/17 18:35 anc 817 CC 8.02 ASSESSMENT AND PLAN: 62 F with pmhx. of HIV, HTN, HLD, who presents with vomiting and diarrhea, found to be septic 1.) Sepsis - Most likely due to gastroenteritis/UTI? - Panc cx - Levaquin/Flagyl - If worsening abdominal sx- Suggest Ct abd - IVF - Repeat LA 2.) Transaminitis/Elevated - Hepatitis Panel - Hold HARRT - Possibly medication induces - Hepatic US - Trend 3.) Hypocalcemia - CC 8.02 4.) Hypokalemia - Replete - Check Mg2+ 5.) Neutropenia - Most likely due to infection - Monitor - Percautions 6.) HIV - Hold HAART for now 7.) Dvt Ppx - Scds Place in Obs med-sx
[2017-12-15] MEDS: ACETAMINOPHEN 325 MG TABLET (FP) PO PRN (22:58)
[2017-12-15] MEDS: SODIUM CHLORIDE 1,000 ML IV SCH (23:05)
[2017-12-15] MEDS: GABAPENTIN 300 MG CAPSULE (FP) PO SCH (23:06)
[2017-12-16] MEDS ORDERED: ZOLPIDEM TARTRATE 5 MG TABLET PO PRN ×2 (00:54→22:00)
--- NOTE | 2017-12-16 01:53 | HP ---
CHIEF COMPLAINT: nausea, diarrhea HISTORY OF PRESENT ILLNESS: Patient is a 62 yo F with pmhx of HIV, HTN, HLD, Neuropathy, presented to the ED because of nausea and nonbilious, non bloody diarrhea with chills for the last 4 days. She also complains of lightheadedness and weakness which she says from poor oral intake this past week. She has been off her HIV meds since Thursday because of nausea. She said her last CD4 count in the office was over 500. Patient recently traveled to [place] last month. Patient denies SOB, Ches pain, abdominal pain, dysuria, sick contacts, and fevers. ER course was notable for: (1) 1gm Ceftriaxone, Flagyl (2) IV fluids 2 L NS Bolus Recent Travel: [place] PAST MEDICAL HISTORY: per HPI PAST SURGICAL HISTORY: n/a Social History: Smoking: former smoker quit 1 year ago Alcohol: denies Drugs: denies Family History: Allergies Penicillins Allergy (Unknown, Verified 12/15/17 13:55) Swelling MAYONAISE Adverse Reaction (Uncoded 12/15/17 13:55) HOME MEDICATIONS: Home Medications Medication Instructions Recorded Albuterol Sulfate Inhaler - 1 - 2 inh PO Q4H #1 inhaler 08/20/17 [Ventolin HFA Inhaler -] Cholecalciferol (Vitamin D3) 1,000 unit PO DAILY #30 tab 09/17/17 [Vitamin D3 -] Gabapentin 300 mg PO TID 09/17/17 Tiotropium [place] [Spiriva] 1 puff PO DAILY 09/17/17 Abacavir Sulfate/Lamivudine 1 tablet PO DAILY #30 tablet 10/29/17 [Epzicom Tablet] Darunavir Ethanolate [Prezista -] 800 mg PO DAILY #30 tablet 10/29/17 Ritonavir [Norvir -] 100 mg PO DAILY #30 tab 10/29/17 Tenofovir Disoproxil Fumarate 300 mg PO DAILY #30 tablet 10/29/17 [Viread -] Valacyclovir HCl [Valtrex] 500 mg PO DAILY #30 tablet 10/29/17 Mirtazapine [Remeron -] 15 mg PO DAILY #30 tablet 11/05/17 Olanzapine [Zyprexa] 2.5 mg PO HS #30 tablet 11/05/17 Zolpidem Tartrate [Ambien] 5 mg PO HS #30 tablet MDD 1 11/05/17 REVIEW OF SYSTEMS CONSTITUTIONAL: chills, generalized weakness, loss of appetite Absent: fever, diaphoresis, malaise, weight change HEENT: Absent: rhinorrhea, nasal congestion, throat pain, throat swelling, difficulty swallowing, mouth swelling, ear pain, eye pain, visual changes CARDIOVASCULAR: Absent: chest pain, syncope, palpitations, irregular heart rate, lightheadedness , peripheral edema RESPIRATORY: Absent: cough, shortness of breath, dyspnea with exertion, orthopnea, wheezing, stridor, hemoptysis GASTROINTESTINAL: nausea, vomiting Absent: abdominal pain, abdominal distension, diarrhea, constipation, melena, hematochezia GENITOURINARY: Absent: dysuria, frequency, urgency, hesitancy, hematuria, flank pain, genital pain MUSCULOSKELETAL: Absent: myalgia, arthralgia, joint swelling, back pain, neck pain SKIN: Absent: rash, itching, pallor HEMATOLOGIC/IMMUNOLOGIC: Absent: easy bleeding, easy bruising, lymphadenopathy, frequent infections ENDOCRINE: Absent: unexplained weight gain, unexplained weight loss, heat intolerance, cold intolerance NEUROLOGIC: Absent: headache, focal weakness or paresthesias, dizziness, unsteady gait, seizure, mental status changes, bladder or bowel incontinence PSYCHIATRIC: Absent: anxiety, depression, suicidal or homicidal ideation, hallucinations. PHYSICAL EXAMINATION Vital Signs - 24 hr 12/15/17 13:53 Temperature 97.9 F Pulse Rate 102 H Respiratory 18 Rate Blood Pressure 95/76 O2 Sat by Pulse 98 Oximetry (%) GENERAL: Awake, alert, and fully oriented, in no acute distress. HEAD: Normal with no signs of trauma. EYES: Pupils equal, round and reactive to light, extraocular movements intact, sclera anicteric, conjunctiva clear. EARS, NOSE, THROAT: Ears normal, nares patent, oropharynx clear without exudates. Moist mucous membranes. NECK: Normal range of motion, supple without lymphadenopathy, JVD, or masses. LUNGS: Breath sounds equal, clear to auscultation bilaterally. No wheezes, and no crackles. HEART: Regular rate and rhythm, normal S1 and S2 without murmur, rub or gallop. ABDOMEN: Soft, nontender, not distended, normoactive bowel sounds, no guarding, no rebound, no masses. UPPER EXTREMITIES: 2+ pulses, warm, well-perfused. No cyanosis. No clubbing. No peripheral edema. LOWER EXTREMITIES: 2+ pulses, warm, well-perfused. No calf tenderness. No peripheral edema. PSYCHIATRIC: Cooperative. Good eye contact. Appropriate mood and affect. SKIN: Warm, dry, normal turgor, no rashes or lesions noted, normal capillary refill. Laboratory Results - last 24 hr 12/15/17 12/15/17 12/15/17 15:46 15:46 15:46 WBC 1.9 L* D RBC 4.65 Hgb 13.6 Hct 41.2 MCV 88.6 MCH 29.3 MCHC 33.1 RDW 15.4 Plt Count 147 D MPV 9.1 D Neutrophils % No Result Required. Neutrophils % (Manual) 29.0 L D Band Neutrophils % 14.0 Lymphocytes % No Result Required. Lymphocytes % (Manual) 43.0 H D Monocytes % (Manual) 14 H Smudge Cells Few Platelet Estimate Adequate Platelet Comment No clumping noted Sodium Cancelled Potassium Cancelled Chloride Cancelled Carbon Dioxide Cancelled Anion Gap Cancelled BUN Cancelled Creatinine Cancelled Creat Clearance w eGFR Cancelled Random Glucose Cancelled Lactic Acid Calcium Cancelled Phosphorus Cancelled Magnesium Cancelled Total Bilirubin Cancelled AST Cancelled ALT Cancelled Alkaline Phosphatase Cancelled Total Protein Cancelled Albumin Cancelled Lipase Cancelled Urine Color Urine Appearance Urine pH Ur Specific [place] Urine Protein Urine Glucose (UA) Urine Ketones Urine Blood Urine Nitrite Urine Bilirubin Urine Urobilinogen Ur Leukocyte Esterase Urine WBC (Auto) Urine RBC (Auto) Ur Epithelial Cells Urine Bacteria Urine Mucus 12/15/17 12/15/17 12/15/17 18:35 18:35 20:30 WBC RBC Hgb Hct MCV MCH MCHC RDW Plt Count MPV Neutrophils % Neutrophils % (Manual) Band Neutrophils % Lymphocytes % Lymphocytes % (Manual) Monocytes % (Manual) Smudge Cells Platelet Estimate Platelet Comment Sodium 138 Potassium 3.4 L Chloride 106 Carbon Dioxide 23 Anion Gap 9 BUN 23 H Creatinine 1.3 H Creat Clearance w eGFR 41.64 Random Glucose 88 Lactic Acid 1.1 Calcium 6.9 L* Phosphorus 3.2 Magnesium 2.0 Total Bilirubin 0.1 L D AST 150 H ALT 82 H Alkaline Phosphatase 95 Total Protein 6.2 L Albumin 2.6 L Lipase 545 H Urine Color Urine Appearance Urine pH Ur Specific [place] Urine Protein Urine Glucose (UA) Urine Ketones Urine Blood Urine Nitrite Urine Bilirubin Urine Urobilinogen Ur Leukocyte Esterase Urine WBC (Auto) Urine RBC (Auto) Ur Epithelial Cells Urine Bacteria Urine Mucus 12/15/17 21:15 WBC RBC Hgb Hct MCV MCH MCHC RDW Plt Count MPV Neutrophils % Neutrophils % (Manual) Band Neutrophils % Lymphocytes % Lymphocytes % (Manual) Monocytes % (Manual) Smudge Cells Platelet Estimate Platelet Comment Sodium Potassium Chloride Carbon Dioxide Anion Gap BUN Creatinine Creat Clearance w eGFR Random Glucose Lactic Acid Calcium Phosphorus Magnesium Total Bilirubin AST ALT Alkaline Phosphatase Total Protein Albumin Lipase Urine Color Yellow Urine Appearance Cloudy Urine pH 5.0 Ur Specific [place] 1.017 Urine Protein 3+ H D Urine Glucose (UA) Negative Urine Ketones Trace H Urine Blood 2+ H Urine Nitrite Negative Urine Bilirubin Negative Urine Urobilinogen Negative Ur Leukocyte Esterase 3+ H Urine WBC (Auto) 93 Urine RBC (Auto) 3 Ur Epithelial Cells Few Urine Bacteria Few Urine Mucus Rare ASSESSMENT/PLAN: 62 yo F with pmhx of HIV, HTN, HLD, Neuropathy, presented to the ED because of nausea and nonbilious, non bloody diarrhea with chills. #Sepsis likely secondary to Gastroenteritis/UTI? -afebrile, leukopenic, tachy on admission -Follow up Bcx,Ucx -stool wbc, culture, O&P -Positive U/A, asymptomatic. -Cont. Ceftriaxone/Flagyl -Iv fluids NS @ 100 ml/hour -ID consulted: Dr. Ivey #Transaminitis -Hep Panel -HAART held, possibly medication induced -Liver U/S -FU am labs #FELIZ -likely prerenal. -IV fluids -avoid nephrotoxins -monitor #Neutropenia -likely due to infection -neutropenic precautions #Hypocalcemia -Corrected Ca 8 -FU am labs #HIV -held HAART meds #FEN -NS @ 100ml/hour -replete as needed -clear Liquid diet #DVT PPx -EA Obs Visit type - Emergency Visit Emergency Visit: Yes ED Registration Date: 12/15/17 Care time: The patient presented to the Emergency Department on the above date and was hospitalized for further evaluation of their emergent condition. - New Patient This patient is new to me today: Yes Date on this admission: 12/16/17 - Critical Care Critical Care patient: No Hospitalist Screening - Colonoscopy Questionnaire Colonoscopy Questionnaire: Colonoscopy Questionnaire - Patient: 50 - 75 years old and never had a screening colonoscopy: Unknown History of colon or rectal polyps, or CA: Unknown History of IBD, Crohn's disease or UC: Unknown History of abdominal radiation therapy as a child: Unknown - Relative: 1 with colon or rectal CA, or polyps at age 60 or younger: Unknown Colon or rectal CA diagnosed at age 45 or younger: Unknown Multiple relatives with colon or rectal CA: Unknown - Outcome: Screening Result: Negative Screen
[2017-12-16 06:22] LABS: HEMATOCRIT 34.4 % (32.4-45.2); HEMOGLOBIN 11.3 GM/dL (10.7-15.3); MCH 29.5 pg (25.7-33.7); MEAN CELL VOLUME 89.3 fl (80-96); MEAN PLT VOLUME 8.7 fl (7.5-11.1); PLATELET COUNT 110 K/MM3 (134-434); RBC 3.85 M/mm3 (3.60-5.2); RDW 15.7 % (11.6-15.6)
[2017-12-16] MEDS: GABAPENTIN 300 MG CAPSULE (FP) PO SCH ×2 (06:38→14:27)
[2017-12-16 06:49] LABS: ALBUMIN 2.8 g/dl (3.4-5.0); ANION GAP 9 (8-16); BLOOD UREA NITROGEN 15 mg/dL (7-18); CALCIUM 7.6 mg/dL (8.5-10.1); CHLORIDE 109 mmol/L (98-107); CO2 26 mmol/L (21-32); GLUCOSE,RANDOM 87 mg/dL (74-106); MAGNESIUM 2.2 mg/dL (1.8-2.4); PHOSPHOROUS 3.1 mg/dL (2.5-4.9); POTASSIUM 3.6 mmol/L (3.5-5.1); SGOT/AST 141 U/L (15-37); SGPT/ALT 77 U/L (12-78); SODIUM 144 mmol/L (136-145)
[2017-12-16 06:51] LABS: ALK PHOS 98 U/L (45-117); BILIRUBIN,TOTAL 0.2 mg/dL (0.2-1.0); CREATININE 1.2 mg/dL (0.55-1.02); TOT PROT 6.6 g/dl (6.4-8.2)
[2017-12-16 07:07] LABS: WHITE BLOOD COUNT 1.3 K/mm3 (4.0-10.0)
--- NOTE | 2017-12-16 07:53 | PN ---
Physical Exam: SUBJECTIVE: Patient seen and examined by me this AM - complaining of ab pain in epigastrium and LLQ. Endorses subjective chills, diarrhea, N/V and decreased PO intake over last 3-4 days. Recent travel to [place], but no sick contact. Endorsing proximal leg weakness, difficulty ambulating; multiple bouts of NB diarrhea overnight OBJECTIVE: Vital Signs Intake & Output 12/13/17 12/14/17 12/15/17 12/16/17 23:59 23:59 23:59 23:59 Weight 66.25 kg Period Temp Pulse Resp BP Sys/[place] Pulse Ox Last 24 Hr 97.2 F-97.9 F 80-102 16-20 92-108/54-80 98-99 GENERAL: NAD, A&Ox3 HEAD: Normal with no signs of trauma. EYES: PERRL, extraocular movements intact, sclera anicteric, conjunctiva clear. No ptosis. ENT: Ears normal, nares patent, oropharynx clear without exudates, moist mucous membranes. LUNGS: Breath sounds equal, clear to auscultation bilaterally, no wheezes, no crackles, no accessory muscle use. HEART: Regular rate and rhythm, S1, S2 without murmur, rub or gallop. ABDOMEN: TTP in epigastrium, LLQ. Soft, nondistended, normoactive bowel sounds, occasionaly voluntary guarding, no rebound, no hepatosplenomegaly, no masses. EXTREMITIES: 2+ pulses, warm, well-perfused, no edema. NEUROLOGICAL: Cranial nerves II through XII grossly intact. Normal speech, gait not observed. 2/5 strength on hip flexion BL. All other motor function and sensation intact BL. Can ambulate without support. PSYCH: Normal mood, normal affect. Laboratory Results - last 24 hr CBC, BMP 12/16/17 06:05 12/16/17 06:05 12/15/17 12/15/17 12/15/17 15:46 15:46 15:46 WBC 1.9 L* D RBC 4.65 Hgb 13.6 Hct 41.2 MCV 88.6 MCH 29.3 MCHC 33.1 RDW 15.4 Plt Count 147 D MPV 9.1 D Neutrophils % No Result Required. Neutrophils % (Manual) 29.0 L D Band Neutrophils % 14.0 Lymphocytes % No Result Required. Lymphocytes % (Manual) 43.0 H D Monocytes % (Manual) 14 H Smudge Cells Few Platelet Estimate Adequate Platelet Comment No clumping noted Sodium Cancelled Potassium Cancelled Chloride Cancelled Carbon Dioxide Cancelled Anion Gap Cancelled BUN Cancelled Creatinine Cancelled Creat Clearance w eGFR Cancelled Random Glucose Cancelled Lactic Acid Calcium Cancelled Phosphorus Cancelled Magnesium Cancelled Total Bilirubin Cancelled AST Cancelled ALT Cancelled Alkaline Phosphatase Cancelled Total Protein Cancelled Albumin Cancelled Lipase Cancelled Urine Color Urine Appearance Urine pH Ur Specific [place] Urine Protein Urine Glucose (UA) Urine Ketones Urine Blood Urine Nitrite Urine Bilirubin Urine Urobilinogen Ur Leukocyte Esterase Urine WBC (Auto) Urine RBC (Auto) Ur Epithelial Cells Urine Bacteria Urine Mucus 12/15/17 12/15/17 12/15/17 18:35 18:35 20:30 WBC RBC Hgb Hct MCV MCH MCHC RDW Plt Count MPV Neutrophils % Neutrophils % (Manual) Band Neutrophils % Lymphocytes % Lymphocytes % (Manual) Monocytes % (Manual) Smudge Cells Platelet Estimate Platelet Comment Sodium 138 Potassium 3.4 L Chloride 106 Carbon Dioxide 23 Anion Gap 9 BUN 23 H Creatinine 1.3 H Creat Clearance w eGFR 41.64 Random Glucose 88 Lactic Acid 1.1 Calcium 6.9 L* Phosphorus 3.2 Magnesium 2.0 Total Bilirubin 0.1 L D AST 150 H ALT 82 H Alkaline Phosphatase 95 Total Protein 6.2 L Albumin 2.6 L Lipase 545 H Urine Color Urine Appearance Urine pH Ur Specific [place] Urine Protein Urine Glucose (UA) Urine Ketones Urine Blood Urine Nitrite Urine Bilirubin Urine Urobilinogen Ur Leukocyte Esterase Urine WBC (Auto) Urine RBC (Auto) Ur Epithelial Cells Urine Bacteria Urine Mucus 12/15/17 12/16/17 12/16/17 21:15 06:05 06:05 WBC 1.3 L* D RBC 3.85 Hgb 11.3 D Hct 34.4 D MCV 89.3 MCH 29.5 MCHC 33.0 RDW 15.7 H Plt Count 110 L D MPV 8.7 Neutrophils % No Result Required. Neutrophils % (Manual) Band Neutrophils % Lymphocytes % No Result Required. Lymphocytes % (Manual) Monocytes % (Manual) Smudge Cells Platelet Estimate Platelet Comment Sodium 144 Potassium 3.6 Chloride 109 H Carbon Dioxide 26 Anion Gap 9 BUN 15 Creatinine 1.2 H Creat Clearance w eGFR 45.67 Random Glucose 87 Lactic Acid Calcium 7.6 L Phosphorus 3.1 Magnesium 2.2 Total Bilirubin 0.2 D AST 141 H ALT 77 Alkaline Phosphatase 98 Total Protein 6.6 Albumin 2.8 L Lipase Urine Color Yellow Urine Appearance Cloudy Urine pH 5.0 Ur Specific [place] 1.017 Urine Protein 3+ H D Urine Glucose (UA) Negative Urine Ketones Trace H Urine Blood 2+ H Urine Nitrite Negative Urine Bilirubin Negative Urine Urobilinogen Negative Ur Leukocyte Esterase 3+ H Urine WBC (Auto) 93 Urine RBC (Auto) 3 Ur Epithelial Cells Few Urine Bacteria Few Urine Mucus Rare Active Medications Generic Name Dose Route Start Last Admin Trade Name Freq PRN Reason Stop Dose Admin Acetaminophen 650 mg 12/15/17 22:35 12/15/17 22:58 Tylenol - PO 650 mg Q6H PRN Administration PAIN Cholecalciferol 1,000 unit 12/16/17 10:00 Vitamin D3 - PO DAILY SHERI Gabapentin 300 mg 12/15/17 23:00 12/16/17 06:38 Neurontin - PO 300 mg TID SHERI Administration Sodium Chloride 1,000 mls @ 100 mls/hr 12/15/17 22:45 12/15/17 23:05 Normal Saline - IV 100 mls/hr ASDIR SHERI Administration Ceftriaxone Sodium 1 gm/ 50 mls @ 100 mls/hr 12/16/17 10:00 Dextrose IVPB DAILY SHERI Metronidazole 500 mg in 100 mls @ 100 mls/hr 12/16/17 02:30 12/16/17 02:44 Flagyl 500mg Premixed Ivpb - IVPB 100 mls/hr Q8H-IV SHERI Administration Mirtazapine 15 mg 12/16/17 22:00 Remeron - PO HS SHERI Olanzapine 2.5 mg 12/16/17 22:00 Zyprexa - PO HS SHERI Valacyclovir HCl 500 mg 12/16/17 10:00 Valtrex - PO DAILY SHERI Zolpidem Tartrate 5 mg 12/16/17 00:54 Ambien - PO HS PRN INSOMNIA No micro CXR 12/15 - No acute pathology ASSESSMENT/PLAN: 62 yo F with pmhx of HIV, HTN, HLD, Neuropathy, presented to the ED because of nausea and nonbilious, non bloody diarrhea with chills. #Sepsis likely secondary to Gastroenteritis vs. UTI - afebrile, leukopenic 1.9, tachy on admission -Follow up Bcx, Ucx -stool wbc, culture, O&P. - f/u CMV, crypto, giardia, c diff studies -Positive U/A, asymptomatic -d/c Ceftriaxone/Flagyl given new proximal LE weakness. Started on levaquin -IVFs -ID consulted: Dr. Ivey - Ab/pelvis CT #Proximal LE weakness - started this AM; myopathy vs neuropathy; r/o GBS given diarrheal symptoms - CK elevated at ~400 - Neuro consulted - ESR 40, CRP normal - aldolase pending - Serial neuro exams #Transaminitis - f/u liver u/s -Hep Panel -HAART held - trend LFTs #FELIZ - likely prerenal, secondary to volume depletion -IV fluids -avoid nephrotoxins -monitor #Neutropenia -leukocytes 700; last CD4 500 -neutropenic precautions - consult heme if no improvement #HIV -held HAART meds #FEN -NS @ 100ml/hour -replete as needed -Neutropenic diet #DVT PPx -EA, SCDs Plan discussed with Dr. Bismark Pederson, PGY1 Visit type - Emergency Visit Emergency Visit: Yes ED Registration Date: 12/16/17 Care time: The patient presented to the Emergency Department on the above date and was hospitalized for further evaluation of their emergent condition. - New Patient This patient is new to me today: Yes Date on this admission: 12/17/17 - Critical Care Critical Care patient: No
--- NOTE | 2017-12-16 07:53 | CONSULT ---
Consultation: REQUESTING PROVIDER: CONSULT REQUEST: We have been asked to medically evaluate this patient for nausea, vomiting, diarrhea. HISTORY OF PRESENT ILLNESS: Pt is a 62 y/o F with PMH HIV (states last CD4 count and viral load were "Okay" . Per chart, CD4 250), anorexia nervosa, COPD. Pt has had 4 days of NBNB nausea , watery diarrhea, and chills. She states she has not ingested anything except a little water during this period. She denies sick contacts. She recently travelled to [place] but did not have any unpasteurized dairy. She felt unwell when she arrived back in the [place] with a vomiting illness, which resolved completely prior to the onset of her current symptoms. 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 No CP, SOB. Pt has not taken her HIV meds for 4 days because of nausea. Today, she feels much better than yesterday. She had a BM this morning which was brown and less watery. This afternoon, pt is describing proximal thigh flexion weakness. She has to use her arms to swing her legs over the side of her bed to get up, but states she is able to walk once standing. REVIEW OF SYSTEMS: CONSTITUTIONAL: chills, malaise, loss of appetite Absent: fever, , diaphoresis, generalized weakness,, weight change HEENT: Absent: rhinorrhea, nasal congestion, throat pain, throat swelling, difficulty swallowing, mouth swelling, ear pain, eye pain, visual changes CARDIOVASCULAR: Absent: chest pain, syncope, palpitations, irregular heart rate, lightheadedness , peripheral edema RESPIRATORY: Absent: cough, shortness of breath, dyspnea with exertion, orthopnea, wheezing, stridor, hemoptysis GASTROINTESTINAL:abdominal pain, nausea, vomiting, diarrhea Absent: , abdominal distension, constipation, melena, hematochezia GENITOURINARY: Absent: dysuria, frequency, urgency, hesitancy, hematuria, flank pain, genital pain MUSCULOSKELETAL: Absent: myalgia, arthralgia, joint swelling, back pain, neck pain SKIN: Absent: rash, itching, pallor HEMATOLOGIC/IMMUNOLOGIC: Absent: easy bleeding, easy bruising, lymphadenopathy, frequent infections ENDOCRINE: Absent: unexplained weight gain, unexplained weight loss, heat intolerance, cold intolerance NEUROLOGIC: focal weakness, unsteady gait Absent: headache, paresthesias, dizziness, seizure, mental status changes, bladder or bowel incontinence PSYCHIATRIC: Absent: anxiety, depression, suicidal or homicidal ideation, hallucinations. PHYSICAL EXAMINATION Vital Signs - 24 hr 12/15/17 12/15/17 12/15/17 13:53 14:51 17:49 Temperature 97.9 F Pulse Rate 102 H Pulse Rate [ 87 Left] Respiratory 18 16 Rate Blood Pressure 95/76 107/80 Blood Pressure 100/54 [Right Arm] O2 Sat by Pulse 98 99 Oximetry (%) 12/15/17 12/16/17 22:00 06:53 Temperature 97.2 F L Pulse Rate Pulse Rate [ 84 80 Left] Respiratory 16 20 Rate Blood Pressure Blood Pressure 108/57 92/67 [Right Arm] O2 Sat by Pulse 99 98 Oximetry (%) GENERAL: Awake, alert, and fully oriented, in no acute distress. HEAD: Normal with no signs of trauma. EYES: Pupils equal, round and reactive to light, extraocular movements intact, sclera anicteric, conjunctiva clear. No lid lag. EARS, NOSE, THROAT: oropharynx clear without exudates. Moist mucous membranes. NECK: Normal range of motion, supple without lymphadenopathy, JVD, or masses. LUNGS: Breath sounds equal, clear to auscultation bilaterally. No wheezes, and no crackles. No accessory muscle use. HEART: Regular rate and rhythm, normal S1 and S2 without murmur, rub or gallop. ABDOMEN: Soft, nontender, not distended, hyperactive bowel sounds, no guarding, no rebound, no masses. No hepatomegaly or splenomegaly. MUSCULOSKELETAL: Normal range of motion at all joints. No bony deformities or tenderness. No CVA tenderness. UPPER EXTREMITIES: 2+ pulses, warm, well-perfused. No cyanosis. No clubbing. Cap refill <2 seconds. No peripheral edema. LOWER EXTREMITIES: 2+ pulses, warm, well-perfused. No calf tenderness. No peripheral edema. NEUROLOGICAL: Cranial nerves II-XII intact. Normal speech. Wide based gait. Hip flexion 2/5. PSYCHIATRIC: Cooperative. Good eye contact. Appropriate mood and affect. SKIN: Warm, dry, normal turgor, no rashes or lesions noted. Laboratory Results - last 24 hr 12/15/17 12/15/17 12/15/17 15:46 15:46 15:46 WBC 1.9 L* D RBC 4.65 Hgb 13.6 Hct 41.2 MCV 88.6 MCH 29.3 MCHC 33.1 RDW 15.4 Plt Count 147 D MPV 9.1 D Neutrophils % No Result Required. Neutrophils % (Manual) 29.0 L D Band Neutrophils % 14.0 Lymphocytes % No Result Required. Lymphocytes % (Manual) 43.0 H D Monocytes % (Manual) 14 H Smudge Cells Few Platelet Estimate Adequate Platelet Comment No clumping noted Sodium Cancelled Potassium Cancelled Chloride Cancelled Carbon Dioxide Cancelled Anion Gap Cancelled BUN Cancelled Creatinine Cancelled Creat Clearance w eGFR Cancelled Random Glucose Cancelled Lactic Acid Calcium Cancelled Phosphorus Cancelled Magnesium Cancelled Total Bilirubin Cancelled AST Cancelled ALT Cancelled Alkaline Phosphatase Cancelled Total Protein Cancelled Albumin Cancelled Lipase Cancelled Urine Color Urine Appearance Urine pH Ur Specific [place] Urine Protein Urine Glucose (UA) Urine Ketones Urine Blood Urine Nitrite Urine Bilirubin Urine Urobilinogen Ur Leukocyte Esterase Urine WBC (Auto) Urine RBC (Auto) Ur Epithelial Cells Urine Bacteria Urine Mucus 12/15/17 12/15/17 12/15/17 18:35 18:35 20:30 WBC RBC Hgb Hct MCV MCH MCHC RDW Plt Count MPV Neutrophils % Neutrophils % (Manual) Band Neutrophils % Lymphocytes % Lymphocytes % (Manual) Monocytes % (Manual) Smudge Cells Platelet Estimate Platelet Comment Sodium 138 Potassium 3.4 L Chloride 106 Carbon Dioxide 23 Anion Gap 9 BUN 23 H Creatinine 1.3 H Creat Clearance w eGFR 41.64 Random Glucose 88 Lactic Acid 1.1 Calcium 6.9 L* Phosphorus 3.2 Magnesium 2.0 Total Bilirubin 0.1 L D AST 150 H ALT 82 H Alkaline Phosphatase 95 Total Protein 6.2 L Albumin 2.6 L Lipase 545 H Urine Color Urine Appearance Urine pH Ur Specific [place] Urine Protein Urine Glucose (UA) Urine Ketones Urine Blood Urine Nitrite Urine Bilirubin Urine Urobilinogen Ur Leukocyte Esterase Urine WBC (Auto) Urine RBC (Auto) Ur Epithelial Cells Urine Bacteria Urine Mucus 12/15/17 12/16/17 12/16/17 21:15 06:05 06:05 WBC 1.3 L* D RBC 3.85 Hgb 11.3 D Hct 34.4 D MCV 89.3 MCH 29.5 MCHC 33.0 RDW 15.7 H Plt Count 110 L D MPV 8.7 Neutrophils % No Result Required. Neutrophils % (Manual) Band Neutrophils % Lymphocytes % No Result Required. Lymphocytes % (Manual) Monocytes % (Manual) Smudge Cells Platelet Estimate Platelet Comment Sodium 144 Potassium 3.6 Chloride 109 H Carbon Dioxide 26 Anion Gap 9 BUN 15 Creatinine 1.2 H Creat Clearance w eGFR 45.67 Random Glucose 87 Lactic Acid Calcium 7.6 L Phosphorus 3.1 Magnesium 2.2 Total Bilirubin 0.2 D AST 141 H ALT 77 Alkaline Phosphatase 98 Total Protein 6.6 Albumin 2.8 L Lipase Urine Color Yellow Urine Appearance Cloudy Urine pH 5.0 Ur Specific [place] 1.017 Urine Protein 3+ H D Urine Glucose (UA) Negative Urine Ketones Trace H Urine Blood 2+ H Urine Nitrite Negative Urine Bilirubin Negative Urine Urobilinogen Negative Ur Leukocyte Esterase 3+ H Urine WBC (Auto) 93 Urine RBC (Auto) 3 Ur Epithelial Cells Few Urine Bacteria Few Urine Mucus Rare Active Medications Generic Name Dose Route Start Last Admin Trade Name Freq PRN Reason Stop Dose Admin Acetaminophen 650 mg 12/15/17 22:35 12/15/17 22:58 Tylenol - PO 650 mg Q6H PRN Administration PAIN Cholecalciferol 1,000 unit 12/16/17 10:00 Vitamin D3 - PO DAILY SHERI Gabapentin 300 mg 12/15/17 23:00 12/16/17 06:38 Neurontin - PO 300 mg TID SHERI Administration Sodium Chloride 1,000 mls @ 100 mls/hr 12/15/17 22:45 12/15/17 23:05 Normal Saline - IV 100 mls/hr ASDIR SHERI Administration Ceftriaxone Sodium 1 gm/ 50 mls @ 100 mls/hr 12/16/17 10:00 Dextrose IVPB DAILY SHERI Metronidazole 500 mg in 100 mls @ 100 mls/hr 12/16/17 02:30 12/16/17 02:44 Flagyl 500mg Premixed Ivpb - IVPB 100 mls/hr Q8H-IV SHERI Administration Mirtazapine 15 mg 12/16/17 22:00 Remeron - PO HS SHERI Olanzapine 2.5 mg 12/16/17 22:00 Zyprexa - PO HS SHERI Valacyclovir HCl 500 mg 12/16/17 10:00 Valtrex - PO DAILY SHERI Zolpidem Tartrate 5 mg 12/16/17 00:54 Ambien - PO HS PRN INSOMNIA ASSESSMENT/PLAN: #Gasteroenteritis -4 days duration of n/v/d without improvement -improving on Flagyl, Rocephin, Acyclovir & IV fluids -change to Levaquin -CMV PCR -Giardia/Crypto screen #Weakness -unclear etiology -suggest neuro consult #Neurtopenia -WBC 1.9-> 1.3 (baseline normal) -has been neutropenic in the past Dispo: We will continue to follow the patient. Thank you for this consultative opportunity. Visit type - Emergency Visit Emergency Visit: Yes ED Registration Date: 12/16/17 Care time: The patient presented to the Emergency Department on the above date and was hospitalized for further evaluation of their emergent condition. - New Patient This patient is new to me today: Yes Date on this admission: 12/17/17 - Critical Care Critical Care patient: No
[2017-12-16] MEDS ORDERED: PATIENT'S OWN MEDICATION (NON-FORMULARY) (Abacavir Sulfate/Lamivudine [Epzicom Tablet] 1 T PO SCH (10:00)
[2017-12-16] MEDS ORDERED: TENOFOVIR DISOPROXIL FUMARATE 300 MG TABLET PO SCH (10:00)
[2017-12-16] MEDS ORDERED: RITONAVIR 100 MG TABLET PO SCH (10:00)
[2017-12-16] MEDS ORDERED: ABACAVIR SULFATE 300 MG TABLET PO SCH (10:00)
[2017-12-16] MEDS ORDERED: CEFTRIAXONE 1 GM in DEXTROSE 5%-WATER - 50 ML IVPB SCH (10:00)
[2017-12-16] MEDS ORDERED: lamiVUDine 10 MG/1 ML BULK BOTTLE PO SCH (10:00)
[2017-12-16] MEDS ORDERED: DARUNAVIR ETHANOLATE 800 MG TAB PO SCH (10:00)
[2017-12-16] MEDS: CHOLECALCIFEROL (VITAMIN D3) 1,000 UNIT TABLET (FP) PO SCH (10:55)
[2017-12-16] MEDS: valACYclovir HCL 500 MG TABLET (FP) PO SCH (10:55)
--- NOTE | 2017-12-16 11:05 | EKG ---
Test Reason : Blood Pressure : / mmHG Vent. Rate : 090 BPM Atrial Rate : 090 BPM P-R Int : 192 ms QRS Dur : 074 ms QT Int : 372 ms P-R-T Axes : 072 072 067 degrees QTc Int : 455 ms NORMAL SINUS RHYTHM NORMAL ECG WHEN COMPARED WITH ECG OF 03-DEC-2017 10:54, T WAVE AMPLITUDE HAS DECREASED IN INFERIOR LEADS T WAVE AMPLITUDE HAS DECREASED IN ANTEROLATERAL LEADS Confirmed by MORTEZA FIELDS, DONALD ([id number]) on 12/16/2017 11:05:16 AM Referred By: Confirmed By:DONALD PRO MD
[2017-12-16 11:40] LABS: ANISOCYTOSIS 0; MACROCYTOSIS 0; PLATELET ESTIMATE DECREASED
[2017-12-16] MEDS: SODIUM CHLORIDE 1,000 ML IV SCH ×2 (12:23→23:08)
[2017-12-16] MEDS ORDERED: SODIUM CHLORIDE 1,000 ML IV STA (14:07)
--- NOTE | 2017-12-16 14:29 | PN ---
Teaching Attending Note Name of Resident: Jeff Pederson ATTENDING PHYSICIAN STATEMENT I saw and evaluated the patient. I reviewed the resident's note and discussed the case with the resident. I agree with the resident's findings and plan as documented with exceptions below. SUBJECTIVE: Patient seen and examined. Vague abdominal pain. reports nausea, vomiting and watery diarrhea x 3 days. Decreased PO intake and poor appetite. Positive chills prior to admission. recent travel to [place] but no sick contacts. no recent antibiotics. repors weakness in her thighs and limitation lifting but able to ambulate. OBJECTIVE: Vital Signs Period Temp Pulse Resp BP Sys/[place] Pulse Ox Last 24 Hr 97.2 F 80-87 16-20 92-108/54-80 98-99 Intake & Output 12/13/17 12/14/17 12/15/17 12/16/17 23:59 23:59 23:59 23:59 Weight 146 lb 0.902 oz general: lying in bed in no acute distress Chest: CTAB, no rales or wheezing Abdomen, soft, tenderness in LMQ/LLQ and vague in RMQ/RLQ regions, no voluntary or involuntary guarding or rigidity, positive bowel sounds extremities: no edema, Neuro: AAOx3, facial symmetry, UE power 5/5, LE -decreased flexion bilateral hips, Power at foot 5/5, able to ambulate with support, sensation intact and symmetric to gross touch. Home Medication List Medication Instructions Recorded Confirmed Type Gabapentin 300 mg PO TID 09/17/17 12/15/17 History Tiotropium Whick [Spiriva] 1 puff PO DAILY 09/17/17 12/15/17 History Active Medications Generic Name Dose Route Start Last Admin Trade Name Freq PRN Reason Stop Dose Admin Acetaminophen 650 mg 12/15/17 22:35 12/15/17 22:58 Tylenol - PO 650 mg Q6H PRN Administration PAIN Cholecalciferol 1,000 unit 12/16/17 10:00 12/16/17 10:55 Vitamin D3 - PO 1,000 unit DAILY SHERI Administration Gabapentin 300 mg 12/15/17 23:00 12/16/17 14:27 Neurontin - PO 300 mg TID SHERI Administration Sodium Chloride 1,000 mls @ 100 mls/hr 12/15/17 22:45 12/16/17 12:23 Normal Saline - IV 100 mls/hr ASDIR SHERI Administration Ceftriaxone Sodium 1 gm/ 50 mls @ 100 mls/hr 12/16/17 10:00 12/16/17 12:24 Dextrose IVPB 100 mls/hr DAILY SHERI Administration Metronidazole 500 mg in 100 mls @ 100 mls/hr 12/16/17 02:30 12/16/17 12:04 Flagyl 500mg Premixed Ivpb - IVPB 100 mls/hr Q8H-IV SHERI Administration Sodium Chloride 1,000 mls @ 1,000 mls/hr 12/16/17 14:07 12/16/17 14:26 Normal Saline - IV 12/16/17 15:06 1,000 mls/hr ASDIR STA Administration Mirtazapine 15 mg 12/16/17 22:00 Remeron - PO HS SHERI Olanzapine 2.5 mg 12/16/17 22:00 Zyprexa - PO HS SHERI Valacyclovir HCl 500 mg 12/16/17 10:00 12/16/17 10:55 Valtrex - PO 500 mg DAILY SHERI Administration Zolpidem Tartrate 5 mg 12/16/17 00:54 Ambien - PO HS PRN INSOMNIA Laboratory Results - last 24 hr 12/15/17 12/15/17 12/15/17 15:46 15:46 15:46 WBC 1.9 L* D RBC 4.65 Hgb 13.6 Hct 41.2 MCV 88.6 MCH 29.3 MCHC 33.1 RDW 15.4 Plt Count 147 D MPV 9.1 D Neutrophils % No Result Required. Neutrophils % (Manual) 29.0 L D Band Neutrophils % 14.0 Lymphocytes % No Result Required. Lymphocytes % (Manual) 43.0 H D Monocytes % (Manual) 14 H Eosinophils % (Manual) Basophils % (Manual) Myelocytes % (Man) Promyelocytes % (Man) Blast Cells % (Manual) Nucleated RBC % Metamyelocytes Smudge Cells Few Hypochromia Platelet Estimate Adequate Platelet Comment No clumping noted Polychromasia Poikilocytosis Anisocytosis Microcytosis Macrocytosis ESR Sodium Cancelled Potassium Cancelled Chloride Cancelled Carbon Dioxide Cancelled Anion Gap Cancelled BUN Cancelled Creatinine Cancelled Creat Clearance w eGFR Cancelled Random Glucose Cancelled Lactic Acid Calcium Cancelled Phosphorus Cancelled Magnesium Cancelled Total Bilirubin Cancelled AST Cancelled ALT Cancelled Alkaline Phosphatase Cancelled Creatine Kinase C-Reactive Protein Total Protein Cancelled Albumin Cancelled Lipase Cancelled Urine Color Urine Appearance Urine pH Ur Specific [place] Urine Protein Urine Glucose (UA) Urine Ketones Urine Blood Urine Nitrite Urine Bilirubin Urine Urobilinogen Ur Leukocyte Esterase Urine WBC (Auto) Urine RBC (Auto) Ur Epithelial Cells Urine Bacteria Urine Mucus 12/15/17 12/15/17 12/15/17 18:35 18:35 20:30 WBC RBC Hgb Hct MCV MCH MCHC RDW Plt Count MPV Neutrophils % Neutrophils % (Manual) Band Neutrophils % Lymphocytes % Lymphocytes % (Manual) Monocytes % (Manual) Eosinophils % (Manual) Basophils % (Manual) Myelocytes % (Man) Promyelocytes % (Man) Blast Cells % (Manual) Nucleated RBC % Metamyelocytes Smudge Cells Hypochromia Platelet Estimate Platelet Comment Polychromasia Poikilocytosis Anisocytosis Microcytosis Macrocytosis ESR Sodium 138 Potassium 3.4 L Chloride 106 Carbon Dioxide 23 Anion Gap 9 BUN 23 H Creatinine 1.3 H Creat Clearance w eGFR 41.64 Random Glucose 88 Lactic Acid 1.1 Calcium 6.9 L* Phosphorus 3.2 Magnesium 2.0 Total Bilirubin 0.1 L D AST 150 H ALT 82 H Alkaline Phosphatase 95 Creatine Kinase C-Reactive Protein Total Protein 6.2 L Albumin 2.6 L Lipase 545 H Urine Color Urine Appearance Urine pH Ur Specific [place] Urine Protein Urine Glucose (UA) Urine Ketones Urine Blood Urine Nitrite Urine Bilirubin Urine Urobilinogen Ur Leukocyte Esterase Urine WBC (Auto) Urine RBC (Auto) Ur Epithelial Cells Urine Bacteria Urine Mucus 12/15/17 12/16/17 12/16/17 21:15 06:05 06:05 WBC 1.3 L* D RBC 3.85 Hgb 11.3 D Hct 34.4 D MCV 89.3 MCH 29.5 MCHC 33.0 RDW 15.7 H Plt Count 110 L D MPV 8.7 Neutrophils % No Result Required. Neutrophils % (Manual) 25.8 L Band Neutrophils % 2.0 Lymphocytes % No Result Required. Lymphocytes % (Manual) 53.6 H D Monocytes % (Manual) 17 H* Eosinophils % (Manual) 0.0 Basophils % (Manual) 0.0 Myelocytes % (Man) 0 Promyelocytes % (Man) 0 Blast Cells % (Manual) 0 Nucleated RBC % 0 Metamyelocytes 0 Smudge Cells Hypochromia 0 Platelet Estimate Decreased Platelet Comment Polychromasia 0 Poikilocytosis 0 Anisocytosis 0 Microcytosis 0 Macrocytosis 0 ESR Sodium 144 Potassium 3.6 Chloride 109 H Carbon Dioxide 26 Anion Gap 9 BUN 15 Creatinine 1.2 H Creat Clearance w eGFR 45.67 Random Glucose 87 Lactic Acid Calcium 7.6 L Phosphorus 3.1 Magnesium 2.2 Total Bilirubin 0.2 D AST 141 H ALT 77 Alkaline Phosphatase 98 Creatine Kinase 411 H C-Reactive Protein Total Protein 6.6 Albumin 2.8 L Lipase Urine Color Yellow Urine Appearance Cloudy Urine pH 5.0 Ur Specific [place] 1.017 Urine Protein 3+ H D Urine Glucose (UA) Negative Urine Ketones Trace H Urine Blood 2+ H Urine Nitrite Negative Urine Bilirubin Negative Urine Urobilinogen Negative Ur Leukocyte Esterase 3+ H Urine WBC (Auto) 93 Urine RBC (Auto) 3 Ur Epithelial Cells Few Urine Bacteria Few Urine Mucus Rare 12/16/17 12/16/17 06:05 11:24 WBC RBC Hgb Hct MCV MCH MCHC RDW Plt Count MPV Neutrophils % Neutrophils % (Manual) Band Neutrophils % Lymphocytes % Lymphocytes % (Manual) Monocytes % (Manual) Eosinophils % (Manual) Basophils % (Manual) Myelocytes % (Man) Promyelocytes % (Man) Blast Cells % (Manual) Nucleated RBC % Metamyelocytes Smudge Cells Hypochromia Platelet Estimate Platelet Comment Polychromasia Poikilocytosis Anisocytosis Microcytosis Macrocytosis ESR 40 H Sodium Potassium Chloride Carbon Dioxide Anion Gap BUN Creatinine Creat Clearance w eGFR Random Glucose Lactic Acid Calcium Phosphorus Magnesium Total Bilirubin AST ALT Alkaline Phosphatase Creatine Kinase Cancelled C-Reactive Protein Cancelled Total Protein Albumin Lipase Urine Color Urine Appearance Urine pH Ur Specific [place] Urine Protein Urine Glucose (UA) Urine Ketones Urine Blood Urine Nitrite Urine Bilirubin Urine Urobilinogen Ur Leukocyte Esterase Urine WBC (Auto) Urine RBC (Auto) Ur Epithelial Cells Urine Bacteria Urine Mucus ASSESSMENT AND PLAN: 62 yof with HIV on HAART, HTN, HLD, neuropathy admitted with nausea/vomiting/ diarrhea/abdominal pain, found with leucopenia, abnormal LFTs and now with ? proximal LE muscle weakness. -SIRS with GI symptoms/abnormal LFTs/leucopenia -Nausea/vomiting/diarrhea/abdominal pain, ?gastroenteritis, r/o colitis/ diverticulitis. -Abnormal LFTs, ?Related to above vs HAARt related, no concerns for gall bladder etiology -Leucopenia with severe neutropenia, ?From infection -?Promximal LE muscle weakness -?Lower uncomplicated UTI -HIV on HAART -HTN -HLD -Neuropathy Plan: CT A/AP, ceftriaxone/flagyl. Stool studies including C difficile. Abdominal US noted. clears as tolerated. GI input if fails to improve or pending imaging. Hold HAART, follow up with ID. Neutropenic precautions. Infectious w/u as above. Heme input if fails to improve. Check CPK/ESR/CRP/Aldolase. Neurology input. ?Muscle weakness related to viral process. Able to ambulate with preserved distal muscles power. Neuro checks. olanzapine/mirtazapine/acyclovir per outpatient DVTPPX with SCDs, given downtrending CBC, monitor for now. Dispo pending clinical improvement. PT eval once improved if still weak. Plan discussed with patient in detail, all questions answered.
--- NOTE | 2017-12-16 14:56 | PN ---
Teaching Attending Note Name of Resident: Kingston Hedrick ATTENDING PHYSICIAN STATEMENT I saw and evaluated the patient. I reviewed the resident's note and discussed the case with the resident. I agree with the resident's findings and plan as documented. SUBJECTIVE: vomiting and diarrhea since thursday no fevers nonbloody returned end of November from [place] no unpastuerized foods there no abd pain came last night fevers have resolved started on rocephin and flagyl last night reports that her thighs are weak today, no weakness in her feet or upper extremity OBJECTIVE: Vital Signs Period Temp Pulse Resp BP Sys/[place] Pulse Ox Last 24 Hr 97.2 F 80-87 16-20 92-108/54-67 98-99 cor-rrr lungs clear abd soft,nt ext no edema CBC, BMP 12/16/17 06:05 12/16/17 06:05 blood cultures pending ASSESSMENT AND PLAN: gastroenteritis stool studies just sent-cdiff, wbc and culture would switch to levaquin and d/c rocephin and flagyl maybe flagyl is worsening her neuropathy send cmv pcr add po vancomycin until cdiff is back ?viral with elevated lfts and leukopenia/thrombocytopenia would suggest neurology evaluation for ct scan abd/pelvis as well hiv/aids- tcells above 200 now- hold art until GI symptoms improve anorexia by history Problem List - Problems (1) Acute gastroenteritis Code(s): K52.9 - NONINFECTIVE GASTROENTERITIS AND COLITIS, UNSPECIFIED (2) Leukopenia Code(s): D72.819 - DECREASED WHITE BLOOD CELL COUNT, UNSPECIFIED Qualifiers: Leukopenia type: unspecified Qualified Code(s): D72.819 - Decreased white blood cell count, unspecified (3) HIV (human immunodeficiency virus infection) Code(s): Z21 - ASYMPTOMATIC HUMAN IMMUNODEFICIENCY VIRUS INFECTION STATUS
[2017-12-16 20:45] VITALS: BMI 23.6
[2017-12-16] MEDS ORDERED: MIRTAZAPINE 15 MG TABLET (FP) PO SCH (22:00)
[2017-12-16] MEDS: OLANZapine 2.5 MG TABLET PO SCH (22:59)
[2017-12-16] MEDS: ACETAMINOPHEN 325 MG TABLET (FP) PO PRN (23:07)
--- NOTE | 2017-12-17 05:56 | PN ---
Physical Exam: SUBJECTIVE: Patient seen and examined by me this AM - No overnight events; still with persistent diarrhea, more formed today; Endorsing improving strength in L leg, however states gait is stable; Denies f/c /n/v, cough, SOB, ab pain, back pain, LE edema, new neuro symptoms OBJECTIVE: Vital Signs Intake & Output 12/14/17 12/15/17 12/16/17 12/17/17 23:59 23:59 23:59 23:59 Weight 66.25 kg 76.793 kg Period Temp Pulse Resp BP Sys/Inman Pulse Ox Last 24 Hr 97.2 F-97.4 F 80-93 16-20 92-106/56-67 95-100 GENERAL: Middle aged woman, NAD, A&Ox3 HEAD: Normal with no signs of trauma. EYES: PERRL, extraocular movements intact, sclera anicteric, conjunctiva clear. No ptosis. ENT: Ears normal, nares patent, oropharynx clear without exudates, moist mucous membranes. LUNGS: Breath sounds equal, clear to auscultation bilaterally, no wheezes, no crackles, no accessory muscle use. HEART: Regular rate and rhythm, S1, S2 without murmur, rub or gallop. ABDOMEN: Still with TTP in epigastrium, LLQ, improved. Soft, nondistended, normoactive bowel sounds, voluntary guarding, no rebound, no hepatosplenomegaly , no masses. EXTREMITIES: 2+ pulses, warm, well-perfused, no edema. NEUROLOGICAL: Cranial nerves II through XII grossly intact. Normal speech, gait not observed. 3/5 strength of R hip flexion, 2/5 strength of L hip flexion, 4/5 dorsi/plantarflexion BL. All other motor function and sensation intact BL. Can ambulate without support. PSYCH: Normal mood, normal affect. Laboratory Results - last 24 hr CBC, BMP 12/17/17 07:20 12/16/17 06:05 12/16/17 06:05 12/16/17 12/16/17 12/16/17 06:05 06:05 06:05 WBC 1.3 L* D RBC 3.85 Hgb 11.3 D Hct 34.4 D MCV 89.3 MCH 29.5 MCHC 33.0 RDW 15.7 H Plt Count 110 L D MPV 8.7 Neutrophils % No Result Required. Neutrophils % (Manual) 25.8 L Band Neutrophils % 2.0 Lymphocytes % No Result Required. Lymphocytes % (Manual) 53.6 H D Monocytes % (Manual) 17 H* Eosinophils % (Manual) 0.0 Basophils % (Manual) 0.0 Myelocytes % (Man) 0 Promyelocytes % (Man) 0 Blast Cells % (Manual) 0 Nucleated RBC % 0 Metamyelocytes 0 Hypochromia 0 Platelet Estimate Decreased Polychromasia 0 Poikilocytosis 0 Anisocytosis 0 Microcytosis 0 Macrocytosis 0 ESR Sodium 144 Potassium 3.6 Chloride 109 H Carbon Dioxide 26 Anion Gap 9 BUN 15 Creatinine 1.2 H Creat Clearance w eGFR 45.67 Random Glucose 87 Calcium 7.6 L Phosphorus 3.1 Magnesium 2.2 Total Bilirubin 0.2 D AST 141 H ALT 77 Alkaline Phosphatase 98 Creatine Kinase 411 H Cancelled Creatine Kinase Index 0.4 CK-MB (CK-2) 1.718 C-Reactive Protein < 0.3 Cancelled Total Protein 6.6 Albumin 2.8 L 12/16/17 11:24 WBC RBC Hgb Hct MCV MCH MCHC RDW Plt Count MPV Neutrophils % Neutrophils % (Manual) Band Neutrophils % Lymphocytes % Lymphocytes % (Manual) Monocytes % (Manual) Eosinophils % (Manual) Basophils % (Manual) Myelocytes % (Man) Promyelocytes % (Man) Blast Cells % (Manual) Nucleated RBC % Metamyelocytes Hypochromia Platelet Estimate Polychromasia Poikilocytosis Anisocytosis Microcytosis Macrocytosis ESR 40 H Sodium Potassium Chloride Carbon Dioxide Anion Gap BUN Creatinine Creat Clearance w eGFR Random Glucose Calcium Phosphorus Magnesium Total Bilirubin AST ALT Alkaline Phosphatase Creatine Kinase Creatine Kinase Index CK-MB (CK-2) C-Reactive Protein Total Protein Albumin Active Medications Generic Name Dose Route Start Last Admin Trade Name Freq PRN Reason Stop Dose Admin Acetaminophen 650 mg 12/15/17 22:35 12/16/17 23:07 Tylenol - PO 650 mg Q6H PRN Administration PAIN Cholecalciferol 1,000 unit 12/16/17 10:00 12/16/17 10:55 Vitamin D3 - PO 1,000 unit DAILY SHERI Administration Sodium Chloride 1,000 mls @ 100 mls/hr 12/15/17 22:45 12/16/17 23:08 Normal Saline - IV 100 mls/hr ASDIR SHERI Administration Levofloxacin 750 mg in 150 mls @ 100 mls/hr 12/17/17 10:00 Levaquin 750 Mg Premixed Ivpb - IVPB DAILY SHERI Olanzapine 2.5 mg 12/16/17 22:00 12/16/17 22:59 Zyprexa - PO 2.5 mg HS SHERI Administration Pantoprazole Sodium 40 mg 12/17/17 10:00 Protonix - PO DAILY SHERI Valacyclovir HCl 500 mg 12/16/17 10:00 12/16/17 10:55 Valtrex - PO 500 mg DAILY SHERI Administration Vancomycin HCl 125 mg 12/17/17 06:00 Vancomycin Oral Solution PO Q6HPO SHERI Zolpidem Tartrate 5 mg 12/16/17 00:54 Ambien - PO HS PRN INSOMNIA Microbiology 12/15/17 18:35 Blood - Peripheral Venous Blood Culture - Preliminary NO GROWTH OBTAINED AFTER 24 HOURS, INCUBATION TO CONTINUE FOR 4 DAYS. 12/15/17 18:35 Blood - Peripheral Venous Blood Culture - Preliminary NO GROWTH OBTAINED AFTER 24 HOURS, INCUBATION TO CONTINUE FOR 4 DAYS. CXR 12/15 - No acute pathology Liver U/S 12/16 - IMPRESSION: Mild hepatomegaly with a slightly dense echotexture suggestive of mild fatty infiltration versus hepatocellular disease. Please correlate with liver enzymes. No gallstones are identified. CT ab/pelvis 12/16 - IMPRESSION: Increased fluid content is seen within the length of the colon consistent with the history of diarrheal illness. No CT evidence of acute appendicitis. There is possible mild concentric wall thickening of the length of the second portion of the duodenal sweep could be on the basis of duodenitis (versus being artifactual due to underdistention) . If clinically indicated correlate with endoscopy versus follow-up CT with oral contrast. In comparison to a [address] study interval development of mild focal opacity is seen within the left lower lobe laterally which may be on the basis of atelectasis and/or infiltrate. Correlate clinically. There has been interval resolution of a infiltrate within the left lower lobe posteriorly. ASSESSMENT/PLAN: 62 yo F with pmhx of HIV, HTN, HLD, Neuropathy, presented to the ED because of nausea and nonbilious, non bloody diarrhea with chills. Pt improving with less diarrhea today, full regain of motor function in legs BL. Stool studies pending. #Sepsis likely secondary to Gastroenteritis vs. UTI - afebrile, leukopenic 1.3 today; CT ab/pelvis as noted above - Follow up Bcx, Ucx - f/u stool wbc, culture, O&P. - f/u CMV, crypto, giardia, c diff studies - Positive U/A, asymptomatic - Day 2 levaquin, can be d/c'ed if stool cultures negative - PO vanco d/c'ed per ID recs - IVFs - ID consulted, recs appreciated - Ferritin elevated, likely acute phase reactant #Proximal LE weakness - myopathy vs neuropathy; r/o GBS given diarrheal symptoms ; motor strength much improved today - CK elevated at ~400 - Neuro consulted, awaiting recs - ESR 40, CRP normal - aldolase pending - Serial neuro exams - PT eval #Transaminitis - liver u/s as noted above; - LFTs improving - Hep Panel - HAART held - trend LFTs #FELIZ - likely prerenal, secondary to volume depletion; improved today 1.2 -> 0.9 -IV fluids -avoid nephrotoxins -monitor #Neutropenia -leukocytes 700; last CD4 500 - neutropenic precautions - Heme/onc consulted - consider neupogen? #Hypertriglyceridemia - 374 today - consider full lipid profile #HIV -held HAART meds - continue acyclovir #FEN -NS @ 100ml/hour -replete as needed -Neutropenic diet #DVT PPx -EA, SCDs Plan discussed with Dr. Bismark Pederson, PGY1 Visit type - Emergency Visit Emergency Visit: Yes ED Registration Date: 12/16/17 Care time: The patient presented to the Emergency Department on the above date and was hospitalized for further evaluation of their emergent condition. - New Patient This patient is new to me today: No - Critical Care Critical Care patient: No
[2017-12-17] MEDS: VANCOMYCIN 250 MG/5 ML ORAL SOLUTION PO SCH ×4 (06:43→23:12)
[2017-12-17 08:12] LABS: HEP.C VIRUS AB 0.1 s/co ratio (0.0-0.9)
[2017-12-17 08:22] LABS: BASO % 0.5 % (0-2.0); EOS % 0.7 % (0-4.5); HEMATOCRIT 35.3 % (32.4-45.2); HEMOGLOBIN 11.4 GM/dL (10.7-15.3); LYMPH % 58.1 % (8-40); MCH 28.8 pg (25.7-33.7); MCHC 32.3 g/dl (32.0-36.0); MEAN CELL VOLUME 89.3 fl (80-96); MEAN PLT VOLUME 8.4 fl (7.5-11.1); MONO % 16.1 % (3.8-10.2); NEUT % 24.6 % (42.8-82.8); PLATELET COUNT 112 K/MM3 (134-434); RBC 3.95 M/mm3 (3.60-5.2); RDW 15.6 % (11.6-15.6)
[2017-12-17 08:32] LABS: WHITE BLOOD COUNT 1.3 K/mm3 (4.0-10.0)
--- NOTE | 2017-12-17 08:50 | PN ---
Teaching Attending Note Name of Resident: Jeff Pederson ATTENDING PHYSICIAN STATEMENT I saw and evaluated the patient. I reviewed the resident's note and discussed the case with the resident. I agree with the resident's findings and plan as documented with exceptions below. SUBJECTIVE: Patient seen and examined. Feels better, diarrhea improved. No nausea/vomiting/ fevers. Weakness improved, ambulating to the bathroom OBJECTIVE: Vital Signs Period Temp Pulse Resp BP Sys/Inman Pulse Ox Last 24 Hr 97.4 F-97.6 F 80-93 16-20 97-141/56-65 95-100 Intake & Output 12/14/17 12/15/17 12/16/17 12/17/17 23:59 23:59 23:59 23:59 Intake Total 600 Balance 600 Weight 146 lb 0.902 oz 169 lb 4.8 oz General: ambulating back from bathrom, gait with no concerns Chest: CTAB, no rales or wheezing Abdomen: soft, NT throughout, ND, positive bowel sounds Extremities: no edema Neuro: AAOx3, power right hip 4/5, left hip 4/5, foot 5/5 bilaterally (improved exam). gait normal, ambulating back from bathroom Home Medication List Medication Instructions Recorded Confirmed Type Fluticasone/Vilanterol [Breo 1 each IH 12/16/17 History Ellipta 100-25 Mcg INH] Active Medications Generic Name Dose Route Start Last Admin Trade Name Freq PRN Reason Stop Dose Admin Acetaminophen 650 mg 12/15/17 22:35 12/16/17 23:07 Tylenol - PO 650 mg Q6H PRN Administration PAIN Cholecalciferol 1,000 unit 12/16/17 10:00 12/16/17 10:55 Vitamin D3 - PO 1,000 unit DAILY SHERI Administration Sodium Chloride 1,000 mls @ 100 mls/hr 12/15/17 22:45 12/16/17 23:08 Normal Saline - IV 100 mls/hr ASDIR SHERI Administration Levofloxacin 750 mg in 150 mls @ 100 mls/hr 12/17/17 10:00 Levaquin 750 Mg Premixed Ivpb - IVPB DAILY SHERI Olanzapine 2.5 mg 12/16/17 22:00 12/16/17 22:59 Zyprexa - PO 2.5 mg HS SHERI Administration Pantoprazole Sodium 40 mg 12/17/17 10:00 Protonix - PO DAILY SHERI Valacyclovir HCl 500 mg 12/16/17 10:00 12/16/17 10:55 Valtrex - PO 500 mg DAILY SHERI Administration Vancomycin HCl 125 mg 12/17/17 06:00 12/17/17 06:43 Vancomycin Oral Solution PO 125 mg Q6HPO SHERI Administration Zolpidem Tartrate 5 mg 12/16/17 00:54 Ambien - PO HS PRN INSOMNIA Microbiology 12/15/17 18:35 Blood - Peripheral Venous Blood Culture - Preliminary NO GROWTH OBTAINED AFTER 24 HOURS, INCUBATION TO CONTINUE FOR 4 DAYS. 12/15/17 18:35 Blood - Peripheral Venous Blood Culture - Preliminary NO GROWTH OBTAINED AFTER 24 HOURS, INCUBATION TO CONTINUE FOR 4 DAYS. ASSESSMENT AND PLAN: 62 yof with HIV on HAART, HTN, HLD, neuropathy admitted with nausea/vomiting/ diarrhea/abdominal pain, found with leucopenia, abnormal LFTs and now with ? proximal LE muscle weakness. -SIRS with GI symptoms/abnormal LFTs, ?viral illness -Leucopenia with lymphocytosis/Monocytosis -Nausea/vomiting/diarrhea/abdominal pain, ?gastroenteritis, r/o colitis/ diverticulitis. -Abnormal LFTs, ?Related to above vs HAARt related, no concerns for gall bladder etiology -Leucopenia with severe neutropenia, ?From infection -?Promximal LE muscle weakness -?Lower uncomplicated UTI -HIV on HAART -HTN -HLD -Neuropathy Plan: CT A/P reviewed GI input ID input noted. Levaquin day 2, po vanco day 2, follow up stool studies/c difficile. Clears as tolerated. Persistent leucopenia with predominant lymphocytes/monocytes, Consult hematology. Hold HAART, follow up with ID. CPK/ESR/CRP/Aldolase noted. Follow up Neurology input. ?Muscle weakness related to viral process. exam improved today and ambulating without assist. Continue zyprexa, acyclovir. D/c remeron as discussed with Dr. Ivey to minimize meds and patient not taking. DVTPPX with SCDs, given downtrending CBC, monitor for now. Dispo pending clinical improvement. PT eval once improved if still weak. Plan discussed with patient in detail, all questions answered.
[2017-12-17 08:59] LABS: ALBUMIN 2.7 g/dl (3.4-5.0); ANION GAP 6 (8-16); BILIRUBIN,TOTAL 0.1 mg/dL (0.2-1.0); BLOOD UREA NITROGEN 6 mg/dL (7-18); CALCIUM 7.6 mg/dL (8.5-10.1); CHLORIDE 114 mmol/L (98-107); CO2 25 mmol/L (21-32); CREATININE 0.9 mg/dL (0.55-1.02); GLUCOSE,RANDOM 94 mg/dL (74-106); MAGNESIUM 1.8 mg/dL (1.8-2.4); POTASSIUM 3.7 mmol/L (3.5-5.1); SGOT/AST 108 U/L (15-37); SGPT/ALT 66 U/L (12-78); SODIUM 145 mmol/L (136-145); TOT PROT 6.3 g/dl (6.4-8.2)
[2017-12-17 09:00] LABS: ALK PHOS 89 U/L (45-117); PHOSPHOROUS 2.7 mg/dL (2.5-4.9)
[2017-12-17] MEDS ORDERED: PT OWN MED DRAWER 7, Y5N ONE (09:16)
[2017-12-17] MEDS: PANTOPRAZOLE 40 MG TABLET (FP) PO SCH (09:21)
[2017-12-17] MEDS: CHOLECALCIFEROL (VITAMIN D3) 1,000 UNIT TABLET (FP) PO SCH (09:21)
[2017-12-17] MEDS: valACYclovir HCL 500 MG TABLET (FP) PO SCH (09:21)
[2017-12-17] MEDS: SODIUM CHLORIDE 1,000 ML IV SCH ×3 (09:21→23:10)
[2017-12-17 11:05] LABS: LDH 350 U/L (84-246); TRIGLYCERIDES 374 mg/dL (35-160)
[2017-12-17 11:33] LABS: INR 0.95 (0.82-1.09); PROTHROMBIN TIME (PATIENT) 10.7 SEC (9.98-11.88)
--- NOTE | 2017-12-17 13:31 | MSN ---
Progress Note (SOAP) - Subjective Chief Complaint: diarrhea and nausea History of Present Illness: Uzma Monroe is a 62 year old female with a PMHx of HIV, HTN, hyperlipidemia, and neuropathy who presented with a 4 day hx of nausea w/o vomiting and diarrhea. Patient endorsed lightheadedness and weakness and poor oral intake during this time. Patient had not been taking her HIV meds since the previous week on Thursday due to the nausea. Patient stated she recently travelled to [place]. Patient denied cp, sob, fevers, chills, sick contacts, headaches. Patient was noted to have a WBC of 1.9, AST 150, ALT 82. In the ED, patient was started on Flagyl and ceftriaxone and given 2L of NS bolus. Patient also endorsed leg weakness of her hip flexors and was unable to move her legs. Patient had good knee extension and stated she was able to ambulate well. Patient was admitted and abx changed to Levaquin and Vancomycin as Flagyl has side effects of neuropathy. Patient continued on fluids and is on neutropenic precautions. Abd and pelvic Ct showed increased fluid content within the bowel consistent with diagnosis of diarrhea, mild thickening of the second portion of duodenum. CXr did not show acute changes. Liver US showed mild hepatomegaly with fatty infiltration. Patient was seen and examined at the bedside. Patient stated that her diarrhea improved and she only had 2 episodes this morning which she stated were more formed than her previous stools. Patient stated that she continued to have some weakness in her legs but stated that once she was out of bed she could ambulate well and had good mobility. Patient denied chest pain, sob, abd pain, headaches , blurry vision, double vision, n/v/c, fevers, chills. - Current Medications Current Medications: Active Medications Acetaminophen (Tylenol -) 650 mg PO Q6H PRN PRN Reason: PAIN Last Admin: 12/16/17 23:07 Dose: 650 mg Cholecalciferol (Vitamin D3 -) 1,000 unit PO DAILY [facility] Last Admin: 12/17/17 09:21 Dose: 1,000 unit Sodium Chloride (Normal Saline -) 1,000 mls @ 100 mls/hr IV ASDIR SHERI Last Admin: 12/17/17 09:21 Dose: 100 mls/hr Levofloxacin (Levaquin 750 Mg Premixed Ivpb -) 750 mg in 150 mls @ 100 mls/hr IVPB DAILY [facility] Last Admin: 12/17/17 09:20 Dose: 100 mls/hr Olanzapine (Zyprexa -) 2.5 mg PO HS [facility] Last Admin: 12/16/17 22:59 Dose: 2.5 mg Pantoprazole Sodium (Protonix -) 40 mg PO DAILY [facility] Last Admin: 12/17/17 09:21 Dose: 40 mg Valacyclovir HCl (Valtrex -) 500 mg PO DAILY [facility] Last Admin: 12/17/17 09:21 Dose: 500 mg Vancomycin HCl (Vancomycin Oral Solution) 125 mg PO Q6HPO [facility] Last Admin: 12/17/17 12:03 Dose: 125 mg Zolpidem Tartrate (Ambien -) 5 mg PO HS PRN PRN Reason: INSOMNIA - Objective Vital Signs: Vital Signs Temperature 97.4 F L 12/17/17 08:42 Pulse Rate 89 12/17/17 08:42 Respiratory Rate 20 12/17/17 08:42 Blood Pressure 100/56 12/17/17 08:42 O2 Sat by Pulse Oximetry (%) 95 12/16/17 20:27 Constitutional: Yes: Well Nourished, No Distress, Calm Eyes: Yes: WNL, Conjunctiva Clear, EOM Intact, PERRL HENT: Yes: WNL, Atraumatic, Normocephalic Neck: Yes: WNL, Supple, Trachea Midline Cardiovascular: Yes: WNL, Regular Rate and Rhythm Respiratory: Yes: WNL, Regular, CTA Bilaterally Gastrointestinal: Yes: Normal Bowel Sounds, Soft, Tenderness (mild tenderness in the RUQ and LUQ, no rigidity, no guarding). No: Distention, Tenderness, Rebound ...Rectal Exam: Yes: Deferred Musculoskeletal: Yes: Muscle Pain (right shoulder pain when performing neuromuscular testing) Extremities: Yes: WNL Edema: No Integumentary: Yes: WNL Neurological: Yes: Alert, Oriented, Cran Nerves II-XII Intact, Weakness, Other ( sensation grossly intact to light touch and pinprick. No dysmetria on finger- nose or dysdiadokinesia. Heel to guzman normal on left leg, unable to perform on right leg). No: Facial Droop, Loss of Sensation, Numbness ...Motor Strength: Yes: LUE (5/5 muscle strength), LLE (2/5 muscle strength on hip flexion, 5/5 on knee extension, hip abduction, hip adduction. 4/5 on plantar and dorsiflexion. 2/4 patellar reflex, 1/4 ankle jerk), RUE (5/5 muscle strength), RLE (1/5 muscle strength on hip flexion. 5/5 on knee extension, hip abduction, hip adducton. 4/5 muscle strength on plantar and dorsiflexion. 2/4 patellar reflex, 1/4 on ankle jerk reflex) Psychiatric: Yes: WNL, Alert, Oriented Labs Lab Results: CBC, BMP 12/17/17 07:20 12/17/17 07:20 Problem List - Problems (1) Diarrhea Code(s): R19.7 - DIARRHEA, UNSPECIFIED Qualifiers: Diarrhea type: unspecified type Qualified Code(s): R19.7 - Diarrhea, unspecified (2) Leukopenia Code(s): D72.819 - DECREASED WHITE BLOOD CELL COUNT, UNSPECIFIED Qualifiers: Leukopenia type: unspecified Qualified Code(s): D72.819 - Decreased white blood cell count, unspecified (3) Depression Code(s): F32.9 - MAJOR DEPRESSIVE DISORDER, SINGLE EPISODE, UNSPECIFIED (4) HIV (human immunodeficiency virus infection) Code(s): Z21 - ASYMPTOMATIC HUMAN IMMUNODEFICIENCY VIRUS INFECTION STATUS Assessment/Plan Patient is a 62y/o female with a PMhx of HIV, HTN, hyperlipidemia, neuropathy who presented after a 4 day hx of diarrhea, nausea, lightheadness, weakness and poor oral intake admitted for sepsis secondary to gastroenteritis. Sepsis secondary to Gastroenteritis vs. UTI -afebrile, leukopenic, tachycardic on admission -UA was positive, patient remained asymptomatic -Follow stool wbc, culture, O&P, CMV, crypto, giardia, c diff studies -Follow blood cultures -d/c Ceftriaxone/Flagyl given new proximal LE weakness. Started on levaquin 750 and vancomycin 125 q6h -ID consulted, recs appreciated -Abd/pelvis CT showed increased fluid within the colon consistent with diarrheal illness and mild thickening of the second portion of duodenum -GI consulted, recs appreciated Proximal LE weakness - rule out GBS given diarrheal symptoms - CK elevated at 411 - Neuro consulted, recs appreciated - ESR 40, CRP within normal limits - aldolase pending - Serial neuro exams - Patient improving with greater strength in hip muscles Transaminitis -Liver US showed mild hepatomegaly with fatty infiltrate, no gallstones -Serology negative, HCV, CMV pending -HAART meds held -LFTs trending down, AST 108 ALT 66 on 12/17 Acute Kidney Injury -IV fluids, NS at 100cc/hr -BUN/CRE at 6/0.9 on 12/17 -continue to monitor Neutropenia -leukocytes 700; last CD4 500 -neutropenic precautions -Heme consult, recs appreciated -Granex 300mcg once given as per heme/onc HIV -held HAART meds -valcyclovir continued Insomnia -Ambien 5mg qhs prn Depression -Olanzapine 2.5mg qhs F/E/N -Normal saline 100cc/hour -Neutropenic diet DVT PPx -SCDs Disposition -admitted to med-surg
--- NOTE | 2017-12-17 13:58 | PN ---
Progress Note, Physician Chief Complaint: ID Diarrhea improved NO fever abd pains rash Recent travel to [place] noted - Current Medication List Current Medications: Active Medications Acetaminophen (Tylenol -) 650 mg PO Q6H PRN PRN Reason: PAIN Last Admin: 12/16/17 23:07 Dose: 650 mg Cholecalciferol (Vitamin D3 -) 1,000 unit PO DAILY [facility] Last Admin: 12/17/17 09:21 Dose: 1,000 unit Sodium Chloride (Normal Saline -) 1,000 mls @ 100 mls/hr IV ASDIR [facility] Last Admin: 12/17/17 09:21 Dose: 100 mls/hr Levofloxacin (Levaquin 750 Mg Premixed Ivpb -) 750 mg in 150 mls @ 100 mls/hr IVPB DAILY [facility] Last Admin: 12/17/17 09:20 Dose: 100 mls/hr Olanzapine (Zyprexa -) 2.5 mg PO HS [facility] Last Admin: 12/16/17 22:59 Dose: 2.5 mg Pantoprazole Sodium (Protonix -) 40 mg PO DAILY [facility] Last Admin: 12/17/17 09:21 Dose: 40 mg Valacyclovir HCl (Valtrex -) 500 mg PO DAILY [facility] Last Admin: 12/17/17 09:21 Dose: 500 mg Vancomycin HCl (Vancomycin Oral Solution) 125 mg PO Q6HPO [facility] Last Admin: 12/17/17 12:03 Dose: 125 mg Zolpidem Tartrate (Ambien -) 5 mg PO HS PRN PRN Reason: INSOMNIA - Objective Vital Signs: Vital Signs Temperature 97.4 F L 12/17/17 08:42 Pulse Rate 89 12/17/17 08:42 Respiratory Rate 20 12/17/17 08:42 Blood Pressure 100/56 12/17/17 08:42 O2 Sat by Pulse Oximetry (%) 95 12/16/17 20:27 Constitutional: Yes: No Distress Eyes: Yes: WNL, Conjunctiva Clear HENT: No: Thrush Neck: Yes: WNL, Supple Cardiovascular: Yes: S1, S2 Respiratory: Yes: WNL, Regular, CTA Bilaterally Gastrointestinal: Yes: WNL, Normal Bowel Sounds, Soft. No: Tenderness, Tenderness, Rebound Edema: No Labs: CBC, BMP 12/17/17 07:20 12/17/17 07:20 INR, PTT INR 0.95 (0.82-1.09) 12/17/17 10:57 Assessment/Plan Laboratory Tests 10/29/17 12/17/17 10:00 07:20 WBC 1.3 L* Hgb 11.4 Plt Count 112 L Absolute CD4 [place] 229 L Assessment Gastroenteritis improving Pancytopenia ? viral disease Noro HIV positive doing well Plan Dose of Neupogen ? Hematology consult pending Stop oral vancomycin as I would not expect this to cause pancytopenia Levoflox can be stopped if no enterics ( salmonella) cultured Jada FIELDS
[2017-12-17] MEDS ORDERED: TBO-FILGRASTIM 300 MCG/0.5 ML DISP.SYRINGE SQ ONE (15:00)
--- NOTE | 2017-12-17 15:06 | CONSULT ---
Consult Consult Specialty:: Hematology - History of Present Illness History of Present Illness: 62 yof with HIV on HAART, HTN, HLD, neuropathy admitted with nausea/vomiting/ diarrhea/abdominal pain, found with leucopenia, abnormal LFTs and now with ? proximal LE muscle weakness. hematology consulted for neutropenia. - History Source History Provided By: Patient, Significant Other - Past Medical History SAMPLE TAILOR: Yes: Peripheral Neuropathy. No: Alzheimer's, CVA, Dementia, Migraine, Multiple Sclerosis, Parkinson's, Seizure, Syncope, TIA, Vertigo, Other Pulmonary: Yes: COPD, Pneumonia Gastrointestinal: Yes: Other ([place] Esophagitis from EGD 06/19/14). No: Ascites, Cancer, Constipation, Crohn's Disease, Diverticulitis, Diverticulosis, Esophageal Varices, Gastritis, GERD, GI Bleed, Hemorrhoids, Hiatal Hernia, Inflamatory Bowel Disease, Irritable Bowel Disease, Pancreatitis, Peptic Ulcer Disease, Ulcerative Colitis ...LMP: 01/04/15 Infectious Disease: Yes: AIDS, HIV, STD's Psych: Yes: Other (anorexia) Additional Medical History: Neuropathy of the feet. anorexia. breast cyst removed. ovarian cyst removed. c/s for twins - Past Surgical History Past Surgical History: Yes: Breast Biopsy, , Tonsillectomy - Alcohol/Substance Use Hx Alcohol Use: No History of Substance Use: reports: None - Smoking History Smoking history: Never smoked Have you smoked in the past 12 months: Yes Aproximately how many cigarettes per day: 2 If you are a former smoker, when did you quit?: 2 months ago - Social History Usual Living Arrangement: With Child ADL: Independent Occupation: on disability History of Recent Travel: No Home Medications - Allergies Allergies/Adverse Reactions: Allergies Allergy/AdvReac Type Severity Reaction Status Date / Time Penicillins Allergy Unknown Swelling Verified 12/15/17 13:55 MAYONAISE AdvReac Uncoded 12/15/17 13:55 - Home Medications Home Medications: Ambulatory Orders Albuterol Sulfate Inhaler - [Ventolin HFA Inhaler -] 1 - 2 inh PO Q4H #1 inhaler 08/20/17 Cholecalciferol (Vitamin D3) [Vitamin D3 -] 1,000 unit PO DAILY #30 tab Abacavir Sulfate/Lamivudine [Epzicom Tablet] 1 tablet PO DAILY #30 tablet Darunavir Ethanolate [Prezista -] 800 mg PO DAILY #30 tablet 10/29/17 Ritonavir [Norvir -] 100 mg PO DAILY #30 tab 10/29/17 Tenofovir Disoproxil Fumarate [Viread -] 300 mg PO DAILY #30 tablet 10/29/17 Valacyclovir HCl [Valtrex] 500 mg PO DAILY #30 tablet 10/29/17 Mirtazapine [Remeron -] 15 mg PO DAILY #30 tablet 11/05/17 Olanzapine [Zyprexa] 2.5 mg PO HS #30 tablet 11/05/17 Zolpidem Tartrate [Ambien] 5 mg PO HS #30 tablet MDD 1 11/05/17 Fluticasone/Vilanterol [Breo Ellipta 100-25 Mcg INH] 1 each IH 12/16/17 Family Disease History - Family Disease History Family Disease History: CA: Father ( prostate CA), Other: Mother (alive dementia) Physical Exam Vital Signs: Vital Signs Temperature 97.5 F L 12/17/17 14:58 Pulse Rate 79 12/17/17 14:58 Respiratory Rate 20 12/17/17 14:58 Blood Pressure 107/58 12/17/17 14:58 O2 Sat by Pulse Oximetry (%) 95 12/16/17 20:27 Constitutional: Yes: Well Nourished, No Distress, Calm Eyes: Yes: Conjunctiva Clear HENT: Yes: Atraumatic, Normocephalic Neck: Yes: Supple Cardiovascular: Yes: Regular Rate and Rhythm Respiratory: Yes: Regular, CTA Bilaterally Gastrointestinal: Yes: Normal Bowel Sounds, Soft Extremities: Yes: WNL Edema: No Labs: CBC, BMP 12/17/17 07:20 12/17/17 07:20 Imaging - Results Cat Scan: Report Reviewed Assessment/Plan Neutropenia/Thrombocytopenia likely acute illness related no HLH/ No MAHA /No parasites No Hepatosplenomegaly one dose neupogen, to likely decrease duration of neutropenia
--- NOTE | 2017-12-17 16:56 | CON.NEURO ---
Consult - History of Present Illness History of Present Illness: 62 y/o F with PMH HIV (states last CD4 count and viral load were "Okay". Per chart, CD4 250), anorexia nervosa, COPD. Pt has had 4 days of NBNB nausea, watery diarrhea, and chills. called for LE weakness She denies sick contacts. She recently travelled to [place] but did not have any unpasteurized dairy. She felt unwell when she arrived back in the [place] with a vomiting illness, which resolved completely prior to the onset of her current symptoms. 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 No CP, SOB. Pt has not taken her HIV meds for 4 days because of nausea. feeling better today , able to move legs better - Past Medical History GREETER: Yes: Peripheral Neuropathy. No: Alzheimer's, CVA, Dementia, Migraine, Multiple Sclerosis, Parkinson's, Seizure, Syncope, TIA, Vertigo, Other Pulmonary: Yes: COPD, Pneumonia Gastrointestinal: Yes: Other (Meredith Esophagitis from EGD 06/19/14). No: Ascites, Cancer, Constipation, Crohn's Disease, Diverticulitis, Diverticulosis, Esophageal Varices, Gastritis, GERD, GI Bleed, Hemorrhoids, Hiatal Hernia, Inflamatory Bowel Disease, Irritable Bowel Disease, Pancreatitis, Peptic Ulcer Disease, Ulcerative Colitis ...LMP: 01/04/15 Infectious Disease: Yes: AIDS, HIV, STD's Psych: Yes: Other (anorexia) Additional Medical History: Neuropathy of the feet. anorexia. breast cyst removed. ovarian cyst removed. c/s for twins - Past Surgical History Past Surgical History: Yes: Breast Biopsy, , Tonsillectomy - Alcohol/Substance Use Hx Alcohol Use: No History of Substance Use: reports: None - Smoking History Smoking history: Never smoked Have you smoked in the past 12 months: Yes Aproximately how many cigarettes per day: 2 If you are a former smoker, when did you quit?: 2 months ago - Social History Usual Living Arrangement: With Child ADL: Independent Occupation: on disability History of Recent Travel: No Home Medications - Allergies Allergies/Adverse Reactions: Allergies Allergy/AdvReac Type Severity Reaction Status Date / Time Penicillins Allergy Unknown Swelling Verified 12/15/17 13:55 MAYONAISE AdvReac Uncoded 12/15/17 13:55 - Home Medications Home Medications: Ambulatory Orders Albuterol Sulfate Inhaler - [Ventolin HFA Inhaler -] 1 - 2 inh PO Q4H #1 inhaler 08/20/17 Cholecalciferol (Vitamin D3) [Vitamin D3 -] 1,000 unit PO DAILY #30 tab Abacavir Sulfate/Lamivudine [Epzicom Tablet] 1 tablet PO DAILY #30 tablet Darunavir Ethanolate [Prezista -] 800 mg PO DAILY #30 tablet 10/29/17 Ritonavir [Norvir -] 100 mg PO DAILY #30 tab 10/29/17 Tenofovir Disoproxil Fumarate [Viread -] 300 mg PO DAILY #30 tablet 10/29/17 Valacyclovir HCl [Valtrex] 500 mg PO DAILY #30 tablet 10/29/17 Mirtazapine [Remeron -] 15 mg PO DAILY #30 tablet 11/05/17 Olanzapine [Zyprexa] 2.5 mg PO HS #30 tablet 11/05/17 Zolpidem Tartrate [Ambien] 5 mg PO HS #30 tablet MDD 1 11/05/17 Fluticasone/Vilanterol [Breo Ellipta 100-25 Mcg INH] 1 each IH 12/16/17 Family Disease History - Family Disease History Family Disease History: CA: Father ( prostate CA), Other: Mother (alive dementia) Physical Exam-Neuro Vital Signs: Vital Signs Temperature 97.5 F L 12/17/17 14:58 Pulse Rate 79 12/17/17 14:58 Respiratory Rate 20 12/17/17 14:58 Blood Pressure 107/58 12/17/17 14:58 O2 Sat by Pulse Oximetry (%) 95 12/16/17 20:27 Labs: CBC, BMP 12/17/17 07:20 12/17/17 07:20 INR, PTT INR 0.95 (0.82-1.09) 12/17/17 10:57 - Neuro Exam Level Of Consciousness: Yes: Alert (nonfocal neuro exam, no focal weakness, reflexes symmetric ) Problem List - Problems (1) Weakness generalized Code(s): R53.1 - WEAKNESS (2) Acute gastroenteritis Code(s): K52.9 - NONINFECTIVE GASTROENTERITIS AND COLITIS, UNSPECIFIED (3) Diarrhea Code(s): R19.7 - DIARRHEA, UNSPECIFIED Qualifiers: Diarrhea type: unspecified type Qualified Code(s): R19.7 - Diarrhea, unspecified (4) Vomiting Code(s): R11.10 - VOMITING, UNSPECIFIED Qualifiers: Vomiting type: unspecified Vomiting Intractability: unspecified Nausea presence: unspecified Qualified Code(s): R11.10 - Vomiting, unspecified Assessment/Plan 62 y/o F with PMH HIV (states last CD4 count and viral load were "Okay". Per chart, CD4 250), anorexia nervosa, COPD. Pt has had 4 days of NBNB nausea, watery diarrhea, and chills. called for LE weakness feeling better today , able to move legs better -no signs of a myelopathy, myopathy, or progressive neuropathy or stroke nonfocal exam-likely dehydrated state, no focal neuro deficits neuro sign off Dr Stallings
--- NOTE | 2017-12-17 17:00 | CON.GI ---
Consult Consult Specialty:: GI Reason for Consultation:: diarrhea, abnormal ct findings - History of Present Illness History of Present Illness: chart reviewed, events noted 62F with HIV (CD4 250), COPD, recently returned from [place], admitted with 4 days of poor pointake, weakness, NBNB, nausea, watery diarrhea, and chills, not taken her HIV meds for 4 days because of nausea. Started on Abx, stool and blood infectious studies pending. Clinically improved in the past 2 days. NAD, AAOx3. Comfortable. Pain-free. 2 semi-formed BMs. Denies hematemesis, dysphagia , odynophagia, jaundice, pencil-thin, or ribbon-like stools. Denies melena, hematochezia, weight loss. Last colonoscopy 2-3 years ago normal. 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 No: Alzheimer's, CVA, Dementia, Migraine, Multiple Sclerosis, Parkinson's, Seizure, Syncope, TIA, Vertigo, Other Pulmonary: Yes: COPD, Pneumonia Gastrointestinal: Yes: Other (Meredith Esophagitis from EGD 06/19/14). No: Ascites, Cancer, Constipation, Crohn's Disease, Diverticulitis, Diverticulosis, Esophageal Varices, Gastritis, GERD, GI Bleed, Hemorrhoids, Hiatal Hernia, Inflamatory Bowel Disease, Irritable Bowel Disease, Pancreatitis, Peptic Ulcer Disease, Ulcerative Colitis ...LMP: 01/04/15 Infectious Disease: Yes: AIDS, HIV, STD's Psych: Yes: Other (anorexia) Additional Medical History: Neuropathy of the feet. anorexia. breast cyst removed. ovarian cyst removed. c/s for twins - Past Surgical History Past Surgical History: Yes: Breast Biopsy, , Tonsillectomy - Alcohol/Substance Use Hx Alcohol Use: No History of Substance Use: reports: None - Smoking History Smoking history: Never smoked Have you smoked in the past 12 months: Yes Aproximately how many cigarettes per day: 2 If you are a former smoker, when did you quit?: 2 months ago - Social History Usual Living Arrangement: With Child ADL: Independent Occupation: on disability History of Recent Travel: No Home Medications - Allergies Allergies/Adverse Reactions: Allergies Allergy/AdvReac Type Severity Reaction Status Date / Time Penicillins Allergy Unknown Swelling Verified 12/15/17 13:55 MAYONAISE AdvReac Uncoded 12/15/17 13:55 - Home Medications Home Medications: Ambulatory Orders Albuterol Sulfate Inhaler - [Ventolin HFA Inhaler -] 1 - 2 inh PO Q4H #1 inhaler 08/20/17 Cholecalciferol (Vitamin D3) [Vitamin D3 -] 1,000 unit PO DAILY #30 tab Abacavir Sulfate/Lamivudine [Epzicom Tablet] 1 tablet PO DAILY #30 tablet Darunavir Ethanolate [Prezista -] 800 mg PO DAILY #30 tablet 10/29/17 Ritonavir [Norvir -] 100 mg PO DAILY #30 tab 10/29/17 Tenofovir Disoproxil Fumarate [Viread -] 300 mg PO DAILY #30 tablet 10/29/17 Valacyclovir HCl [Valtrex] 500 mg PO DAILY #30 tablet 10/29/17 Mirtazapine [Remeron -] 15 mg PO DAILY #30 tablet 11/05/17 Olanzapine [Zyprexa] 2.5 mg PO HS #30 tablet 11/05/17 Zolpidem Tartrate [Ambien] 5 mg PO HS #30 tablet MDD 1 11/05/17 Fluticasone/Vilanterol [Breo Ellipta 100-25 Mcg INH] 1 each IH 12/16/17 Family Disease History - Family Disease History Family Disease History: CA: Father ( prostate CA), Other: Mother (alive dementia) Review of Systems Findings/Remarks: as per HPI, H&P Physical Exam-GI Vital Signs: Vital Signs Temperature 97.5 F L 12/17/17 14:58 Pulse Rate 79 12/17/17 14:58 Respiratory Rate 20 12/17/17 14:58 Blood Pressure 107/58 12/17/17 14:58 O2 Sat by Pulse Oximetry (%) 95 12/16/17 20:27 Constitutional: Yes: Well Nourished, No Distress, Calm Eyes: Yes: Conjunctiva Clear HENT: Yes: Atraumatic Neck: Yes: Supple Cardiovascular: Yes: Regular Rate and Rhythm Respiratory: Yes: Regular Gastrointestinal Inspection: No: Ascites, Distention ...Auscultate: Yes: Normoactive Bowel Sounds ...Palpate: Yes: Soft. No: Tenderness Neurological: Yes: Alert, Oriented Labs: CBC, BMP 12/17/17 07:20 12/17/17 07:20 INR, PTT INR 0.95 (0.82-1.09) 12/17/17 10:57 Laboratory Last Values WBC 1.3 K/mm3 (4.0-10.0) L* 12/17/17 07:20 RBC 3.95 M/mm3 (3.60-5.2) 12/17/17 07:20 Hgb 11.4 GM/dL (10.7-15.3) 12/17/17 07:20 Hct 35.3 % (32.4-45.2) 12/17/17 07:20 MCV 89.3 fl (80-96) 12/17/17 07:20 MCH 28.8 pg (25.7-33.7) 12/17/17 07:20 MCHC 32.3 g/dl (32.0-36.0) 12/17/17 07:20 RDW 15.6 % (11.6-15.6) 12/17/17 07:20 Plt Count 112 K/MM3 (134-434) L 12/17/17 07:20 MPV 8.4 fl (7.5-11.1) 12/17/17 07:20 Neutrophils % 24.6 % (42.8-82.8) L D 12/17/17 07:20 Neutrophils % (Manual) 25.8 % (42.8-82.8) L 12/16/17 06:05 Band Neutrophils % 2.0 % 12/16/17 06:05 Lymphocytes % 58.1 % (8-40) H D 12/17/17 07:20 Lymphocytes % (Manual) 53.6 % (8-40) H D 12/16/17 06:05 Monocytes % 16.1 % (3.8-10.2) H 12/17/17 07:20 Monocytes % (Manual) 17 % (3.8-10.2) H* 12/16/17 06:05 Eosinophils % 0.7 % (0-4.5) D 12/17/17 07:20 Eosinophils % (Manual) 0.0 % (0-4.5) 12/16/17 06:05 Basophils % 0.5 % (0-2.0) 12/17/17 07:20 Basophils % (Manual) 0.0 % (0-2.0) 12/16/17 06:05 Myelocytes % (Man) 0 % (0-2) 12/16/17 06:05 Promyelocytes % (Man) 0 % (0-2) 12/16/17 06:05 Blast Cells % (Manual) 0 % (0-0) 12/16/17 06:05 Nucleated RBC % 0 % (0-0) 12/16/17 06:05 Metamyelocytes 0 % (0-2) 12/16/17 06:05 Smudge Cells Few 12/15/17 15:46 Hypochromia 0 12/16/17 06:05 Platelet Estimate Decreased 12/16/17 06:05 Platelet Comment No clumping noted 12/15/17 15:46 Polychromasia 0 12/16/17 06:05 Poikilocytosis 0 12/16/17 06:05 Anisocytosis 0 12/16/17 06:05 Microcytosis 0 12/16/17 06:05 Macrocytosis 0 12/16/17 06:05 ESR 40 mm/hr (0-30) H 12/16/17 11:24 Retic Count 0.24 % (0.5-1.5) L D 12/17/17 07:20 PT with INR 10.70 SEC (9.98-11.88) 12/17/17 10:57 INR 0.95 (0.82-1.09) 12/17/17 10:57 Sodium 145 mmol/L (136-145) 12/17/17 07:20 Potassium 3.7 mmol/L (3.5-5.1) 12/17/17 07:20 Chloride 114 mmol/L (98-107) H 12/17/17 07:20 Carbon Dioxide 25 mmol/L (21-32) 12/17/17 07:20 Anion Gap 6 (8-16) L 12/17/17 07:20 BUN 6 mg/dL (7-18) L 12/17/17 07:20 Creatinine 0.9 mg/dL (0.55-1.02) 12/17/17 07:20 Creat Clearance w eGFR > 60 (>60) 12/17/17 07:20 Random Glucose 94 mg/dL (74-106) 12/17/17 07:20 Lactic Acid 1.1 mmol/L (0.0-2.0) 12/15/17 20:30 Calcium 7.6 mg/dL (8.5-10.1) L 12/17/17 07:20 Phosphorus 2.7 mg/dL (2.5-4.9) 12/17/17 07:20 Magnesium 1.8 mg/dL (1.8-2.4) 12/17/17 07:20 Ferritin 2899.651 ng/ml (6.9-282.5) H 12/17/17 07:20 Total Bilirubin 0.1 mg/dL (0.2-1.0) L D 12/17/17 07:20 AST 108 U/L (15-37) H 12/17/17 07:20 ALT 66 U/L (12-78) 12/17/17 07:20 Alkaline Phosphatase 89 U/L (45-117) 12/17/17 07:20 LD Total 350 U/L (84-246) H 12/17/17 07:20 Creatine Kinase 411 IU/L (26-192) H 12/16/17 06:05 Creatine Kinase Index 0.4 % (0.0-5.0) 12/16/17 06:05 CK-MB (CK-2) 1.718 ng/mL (0.5-3.6) 12/16/17 06:05 C-Reactive Protein < 0.3 MG/DL (0.00-0.3) 12/16/17 06:05 Total Protein 6.3 g/dl (6.4-8.2) L 12/17/17 07:20 Albumin 2.7 g/dl (3.4-5.0) L 12/17/17 07:20 Triglycerides 374 mg/dL (35-160) H 12/17/17 07:20 Lipase 545 U/L (73-393) H 12/15/17 18:35 Aldolase 9.8 U/L (3.3-10.3) 12/16/17 06:05 Urine Color Yellow 12/15/17 21:15 Urine Appearance Cloudy 12/15/17 21:15 Urine pH 5.0 (5.0-8.0) 12/15/17 21:15 Ur Specific Watson 1.017 (1.001-1.035) 12/15/17 21:15 Urine Protein 3+ (NEGATIVE) H D 12/15/17 21:15 Urine Glucose (UA) Negative (NEGATIVE) 12/15/17 21:15 Urine Ketones Trace (NEGATIVE) H 12/15/17 21:15 Urine Blood 2+ (NEGATIVE) H 12/15/17 21:15 Urine Nitrite Negative (NEGATIVE) 12/15/17 21:15 Urine Bilirubin Negative (<2.0 mg/dL) 12/15/17 21:15 Urine Urobilinogen Negative mg/dL (0.2-1.0) 12/15/17 21:15 Ur Leukocyte Esterase 3+ (NEGATIVE) H 12/15/17 21:15 Urine WBC (Auto) 93 /hpf (3-5) 12/15/17 21:15 Urine RBC (Auto) 3 /hpf (0-3) 12/15/17 21:15 Ur Epithelial Cells Few /HPF (FEW) 12/15/17 21:15 Urine Bacteria Few /hpf (NONE SEEN) 12/15/17 21:15 Urine Mucus Rare 12/15/17 21:15 Hepatitis A IgM Ab Negative (Negative) 12/16/17 06:05 Hep Bs Antigen Negative (Negative) 12/16/17 06:05 Hep B Core IgM Ab Negative (Negative) 12/16/17 06:05 Hepatitis C Antibody 0.1 s/co ratio (0.0-0.9) 12/16/17 06:05 Microbiology 12/15/17 14:03 Stool Clostridium difficile Antigen (JUSTINA) - Final 12/15/17 14:03 Stool Clostridium difficile Toxin Assay - Final 12/15/17 18:35 Blood - Peripheral Venous Blood Culture - Preliminary NO GROWTH OBTAINED AFTER 24 HOURS, INCUBATION TO CONTINUE FOR 4 DAYS. 12/15/17 18:35 Blood - Peripheral Venous Blood Culture - Preliminary NO GROWTH OBTAINED AFTER 24 HOURS, INCUBATION TO CONTINUE FOR 4 DAYS. Imaging - Results Cat Scan: Report Reviewed Problem List - Problems (1) Acute gastroenteritis Code(s): K52.9 - NONINFECTIVE GASTROENTERITIS AND COLITIS, UNSPECIFIED Assessment/Plan Acute gastroenteritis ?Viral. Improving. ID assessment noted. Advance diet as tolerated but avoid dairy and high fat diet for now. Will follow. Discussed with the patient
[2017-12-17] MEDS: ACETAMINOPHEN 325 MG TABLET (FP) PO PRN (21:15)
[2017-12-17] MEDS: OLANZapine 2.5 MG TABLET PO SCH (21:15)
--- NOTE | 2017-12-18 06:07 | PN ---
Physical Exam: SUBJECTIVE: Patient seen and examined by me - no overnight events; VSS; OOB w/o assistance; No further episodes of diarrhea overnight; legs with full strength, stable gait today; denies f/c/n/v, [place], chills, cough, sob, ab pain, cp, back pain, LE edema, numbness/weakness in extremities OBJECTIVE: Vital Signs Intake & Output 12/15/17 12/16/17 12/17/17 12/18/17 23:59 23:59 23:59 23:59 Intake Total 2300 1340 Balance 2300 1340 Weight 66.25 kg 76.793 kg Period Temp Pulse Resp BP Sys/Inman Pulse Ox Last 24 Hr 97.4 F-98.4 F 76-89 20-20 100-108/56-68 96 GENERAL: Middle aged woman, NAD, A&Ox3 HEAD: Normal with no signs of trauma. EYES: PERRL, extraocular movements intact, sclera anicteric, conjunctiva clear. No ptosis. ENT: Ears normal, nares patent, oropharynx clear without exudates, moist mucous membranes. LUNGS: Breath sounds equal, clear to auscultation bilaterally, no wheezes, no crackles, no accessory muscle use. HEART: Regular rate and rhythm, S1, S2 without murmur, rub or gallop. ABDOMEN: Slightly distended abdomen, soft, nontender,normoactive bowel sounds, voluntary guarding, no rebound, no hepatosplenomegaly, no masses. EXTREMITIES: 2+ pulses, warm, well-perfused, no edema. NEUROLOGICAL: Cranial nerves II through XII grossly intact. Normal speech, gait not observed. 5/5 strength in all muscle groups, sensation intact diffusely. ambulating well. PSYCH: Normal mood, normal affect. Laboratory Results - last 24 hr CBC, BMP CBC, BMP 12/18/17 07:05 12/17/17 07:20 12/17/17 07:20 12/16/17 12/16/17 12/17/17 06:05 06:05 07:20 WBC 1.3 L* RBC 3.95 Hgb 11.4 Hct 35.3 MCV 89.3 MCH 28.8 MCHC 32.3 RDW 15.6 Plt Count 112 L MPV 8.4 Neutrophils % 24.6 L D Lymphocytes % 58.1 H D Monocytes % 16.1 H Eosinophils % 0.7 D Basophils % 0.5 Retic Count PT with INR INR Sodium Potassium Chloride Carbon Dioxide Anion Gap BUN Creatinine Creat Clearance w eGFR Random Glucose Calcium Phosphorus Magnesium Ferritin Total Bilirubin AST ALT Alkaline Phosphatase LD Total Total Protein Albumin Triglycerides Aldolase 9.8 Hepatitis A IgM Ab Negative Hep Bs Antigen Negative Hep B Core IgM Ab Negative Hepatitis C Antibody 0.1 12/17/17 12/17/17 12/17/17 07:20 07:20 07:20 WBC RBC Hgb Hct MCV MCH MCHC RDW Plt Count MPV Neutrophils % Lymphocytes % Monocytes % Eosinophils % Basophils % Retic Count 0.24 L D PT with INR INR Sodium 145 Potassium 3.7 Chloride 114 H Carbon Dioxide 25 Anion Gap 6 L BUN 6 L Creatinine 0.9 Creat Clearance w eGFR > 60 Random Glucose 94 Calcium 7.6 L Phosphorus 2.7 Magnesium 1.8 Ferritin 2899.651 H Cancelled Total Bilirubin 0.1 L D AST 108 H ALT 66 Alkaline Phosphatase 89 LD Total 350 H Cancelled Total Protein 6.3 L Albumin 2.7 L Triglycerides 374 H Cancelled Aldolase Hepatitis A IgM Ab Hep Bs Antigen Hep B Core IgM Ab Hepatitis C Antibody 12/17/17 10:57 WBC RBC Hgb Hct MCV MCH MCHC RDW Plt Count MPV Neutrophils % Lymphocytes % Monocytes % Eosinophils % Basophils % Retic Count PT with INR 10.70 INR 0.95 Sodium Potassium Chloride Carbon Dioxide Anion Gap BUN Creatinine Creat Clearance w eGFR Random Glucose Calcium Phosphorus Magnesium Ferritin Total Bilirubin AST ALT Alkaline Phosphatase LD Total Total Protein Albumin Triglycerides Aldolase Hepatitis A IgM Ab Hep Bs Antigen Hep B Core IgM Ab Hepatitis C Antibody Active Medications Generic Name Dose Route Start Last Admin Trade Name Mary Kate PRN Reason Stop Dose Admin Acetaminophen 650 mg 12/15/17 22:35 12/17/17 21:15 Tylenol - PO 650 mg Q6H PRN Administration PAIN Cholecalciferol 1,000 unit 12/16/17 10:00 12/17/17 09:21 Vitamin D3 - PO 1,000 unit DAILY SHERI Administration Sodium Chloride 1,000 mls @ 100 mls/hr 12/15/17 22:45 12/17/17 23:10 Normal Saline - IV Not Given ASDIR SHERI Levofloxacin 750 mg in 150 mls @ 100 mls/hr 12/17/17 10:00 12/17/17 09:20 Levaquin 750 Mg Premixed Ivpb - IVPB 100 mls/hr DAILY SHERI Administration Olanzapine 2.5 mg 12/16/17 22:00 12/17/17 21:15 Zyprexa - PO 2.5 mg HS SHERI Administration Pantoprazole Sodium 40 mg 12/17/17 10:00 12/17/17 09:21 Protonix - PO 40 mg DAILY SHERI Administration Valacyclovir HCl 500 mg 12/16/17 10:00 12/17/17 09:21 Valtrex - PO 500 mg DAILY SHERI Administration Vancomycin HCl 125 mg 12/17/17 06:00 12/17/17 23:12 Vancomycin Oral Solution PO 125 mg Q6HPO SHERI Administration Zolpidem Tartrate 5 mg 12/16/17 00:54 12/17/17 21:21 Ambien - PO 5 mg HS PRN Administration INSOMNIA Microbiology 12/15/17 18:35 Blood - Peripheral Venous Blood Culture - Preliminary NO GROWTH OBTAINED AFTER 48 HOURS, INCUBATION TO CONTINUE FOR 3 DAYS. 12/15/17 18:35 Blood - Peripheral Venous Blood Culture - Preliminary NO GROWTH OBTAINED AFTER 48 HOURS, INCUBATION TO CONTINUE FOR 3 DAYS. 12/15/17 14:03 Stool Clostridium difficile Antigen (JUSTINA) - Final 12/15/17 14:03 Stool Clostridium difficile Toxin Assay - Final CXR 12/15 - No acute pathology Liver U/S 12/16 - IMPRESSION: Mild hepatomegaly with a slightly dense echotexture suggestive of mild fatty infiltration versus hepatocellular disease. Please correlate with liver enzymes. No gallstones are identified. CT ab/pelvis 12/16 - IMPRESSION: Increased fluid content is seen within the length of the colon consistent with the history of diarrheal illness. No CT evidence of acute appendicitis. There is possible mild concentric wall thickening of the length of the second portion of the duodenal sweep could be on the basis of duodenitis (versus being artifactual due to underdistention) . If clinically indicated correlate with endoscopy versus follow-up CT with oral contrast. In comparison to a [address] study interval development of mild focal opacity is seen within the left lower lobe laterally which may be on the basis of atelectasis and/or infiltrate. Correlate clinically. There has been interval resolution of a infiltrate within the left lower lobe posteriorly. ASSESSMENT/PLAN: 62 yo F with pmhx of HIV, HTN, HLD, Neuropathy, presented to the ED because of nausea and nonbilious, non bloody diarrhea with chills. Pt improving with less diarrhea today, full regain of motor function in legs BL. Stool studies pending. #Sepsis likely secondary to Gastroenteritis vs. UTI - afebrile, leukopenic 1.3 today; CT ab/pelvis as noted above - Follow up Bcx, Ucx - f/u stool wbc, culture, O&P. - f/u CMV, crypto, giardia, c diff studies - Positive U/A, asymptomatic - Day 2 levaquin, can be d/c'ed if stool cultures negative - PO vanco d/c'ed per ID recs - IVFs - ID consulted, recs appreciated - Ferritin elevated, likely acute phase reactant #Proximal LE weakness - myopathy vs neuropathy; r/o GBS given diarrheal symptoms ; motor strength much improved today - CK elevated at ~400 - Neuro consulted, awaiting recs - ESR 40, CRP normal - aldolase pending - Serial neuro exams - PT eval #Transaminitis - liver u/s as noted above; - LFTs improving - Hep Panel - HAART held - trend LFTs #FELIZ - likely prerenal, secondary to volume depletion; improved today 1.2 -> 0.9 -IV fluids -avoid nephrotoxins -monitor #Neutropenia -leukocytes 700; last CD4 500 - neutropenic precautions - Heme/onc consulted - consider neupogen? #Hypertriglyceridemia - 374 today - consider full lipid profile #HIV -held HAART meds - continue acyclovir #FEN -NS @ 100ml/hour -replete as needed -Neutropenic diet #DVT PPx -EA, SCDs Plan discussed with Dr. Bismark Pederson, PGY1
[2017-12-18] MEDS: VANCOMYCIN 250 MG/5 ML ORAL SOLUTION PO SCH (06:15)
[2017-12-18 08:20] LABS: BASO % 0.3 % (0-2.0); EOS % 0.1 % (0-4.5); HEMATOCRIT 33.1 % (32.4-45.2); HEMOGLOBIN 10.9 GM/dL (10.7-15.3); LYMPH % 13.8 % (8-40); MCH 29.2 pg (25.7-33.7); MCHC 32.9 g/dl (32.0-36.0); MEAN CELL VOLUME 88.9 fl (80-96); MEAN PLT VOLUME 8.7 fl (7.5-11.1); MONO % 4.7 % (3.8-10.2); NEUT % 81.1 % (42.8-82.8); PLATELET COUNT 130 K/MM3 (134-434); RBC 3.73 M/mm3 (3.60-5.2); RDW 15.6 % (11.6-15.6); WHITE BLOOD COUNT 8.1 K/mm3 (4.0-10.0)
[2017-12-18 08:54] LABS: ALBUMIN 2.6 g/dl (3.4-5.0); ANION GAP 8 (8-16); BILIRUBIN,TOTAL 0.3 mg/dL (0.2-1.0); BLOOD UREA NITROGEN 5 mg/dL (7-18); CALCIUM 7.9 mg/dL (8.5-10.1); CHLORIDE 114 mmol/L (98-107); CO2 25 mmol/L (21-32); CREATININE 0.8 mg/dL (0.55-1.02); GLUCOSE,RANDOM 82 mg/dL (74-106); SGPT/ALT 61 U/L (12-78); SODIUM 147 mmol/L (136-145); TOT PROT 6.3 g/dl (6.4-8.2)
[2017-12-18 08:57] LABS: INR 0.96 (0.82-1.09); PROTHROMBIN TIME (PATIENT) 10.9 SEC (9.98-11.88)
[2017-12-18 09:19] LABS: ALK PHOS 76 U/L (45-117)
[2017-12-18 09:21] LABS: LDH 390 U/L (84-246); MAGNESIUM 1.9 mg/dL (1.8-2.4); POTASSIUM 3.8 mmol/L (3.5-5.1); SGOT/AST 99 U/L (15-37)
--- NOTE | 2017-12-18 09:32 | PN ---
Progress Note, Physician History of Present Illness: No events. Had one, lose bm this am. - Current Medication List Current Medications: Active Medications Acetaminophen (Tylenol -) 650 mg PO Q6H PRN PRN Reason: PAIN Last Admin: 12/17/17 21:15 Dose: 650 mg Cholecalciferol (Vitamin D3 -) 1,000 unit PO DAILY [facility] Last Admin: 12/17/17 09:21 Dose: 1,000 unit Sodium Chloride (Normal Saline -) 1,000 mls @ 100 mls/hr IV ASDIR [facility] Last Admin: 12/17/17 23:10 Dose: Not Given Levofloxacin (Levaquin 750 Mg Premixed Ivpb -) 750 mg in 150 mls @ 100 mls/hr IVPB DAILY [facility] Last Admin: 12/17/17 09:20 Dose: 100 mls/hr Olanzapine (Zyprexa -) 2.5 mg PO HS [facility] Last Admin: 12/17/17 21:15 Dose: 2.5 mg Pantoprazole Sodium (Protonix -) 40 mg PO DAILY [facility] Last Admin: 12/17/17 09:21 Dose: 40 mg Valacyclovir HCl (Valtrex -) 500 mg PO DAILY [facility] Last Admin: 12/17/17 09:21 Dose: 500 mg Vancomycin HCl (Vancomycin Oral Solution) 125 mg PO Q6HPO [facility] Last Admin: 12/18/17 06:15 Dose: 125 mg Zolpidem Tartrate (Ambien -) 5 mg PO HS PRN PRN Reason: INSOMNIA Last Admin: 12/17/17 21:21 Dose: 5 mg - Objective Vital Signs: Vital Signs Temperature 97.7 F 12/18/17 06:00 Pulse Rate 83 12/18/17 06:00 Respiratory Rate 20 12/17/17 22:00 Blood Pressure 105/52 12/18/17 06:00 O2 Sat by Pulse Oximetry (%) 96 12/17/17 21:00 Constitutional: Yes: Well Nourished, No Distress, Calm Eyes: Yes: Conjunctiva Clear HENT: Yes: Atraumatic Neck: Yes: Supple Cardiovascular: Yes: Regular Rate and Rhythm Respiratory: Yes: Regular Gastrointestinal: Yes: Normal Bowel Sounds, Soft. No: Ascites, Distention, Melena, Rectal Bleeding, Tenderness, Vomiting Neurological: Yes: Alert, Oriented Labs: CBC, BMP 12/18/17 07:05 12/18/17 07:05 INR, PTT INR 0.96 (0.82-1.09) 12/18/17 07:05 Laboratory Last Values WBC 8.1 K/mm3 (4.0-10.0) D 12/18/17 07:05 RBC 3.73 M/mm3 (3.60-5.2) 12/18/17 07:05 Hgb 10.9 GM/dL (10.7-15.3) 12/18/17 07:05 Hct 33.1 % (32.4-45.2) 12/18/17 07:05 MCV 88.9 fl (80-96) 12/18/17 07:05 MCH 29.2 pg (25.7-33.7) 12/18/17 07:05 MCHC 32.9 g/dl (32.0-36.0) 12/18/17 07:05 RDW 15.6 % (11.6-15.6) 12/18/17 07:05 Plt Count 130 K/MM3 (134-434) L 12/18/17 07:05 MPV 8.7 fl (7.5-11.1) 12/18/17 07:05 Neutrophils % 81.1 % (42.8-82.8) D 12/18/17 07:05 Neutrophils % (Manual) 25.8 % (42.8-82.8) L 12/16/17 06:05 Band Neutrophils % 2.0 % 12/16/17 06:05 Lymphocytes % 13.8 % (8-40) D 12/18/17 07:05 Lymphocytes % (Manual) 53.6 % (8-40) H D 12/16/17 06:05 Monocytes % 4.7 % (3.8-10.2) 12/18/17 07:05 Monocytes % (Manual) 17 % (3.8-10.2) H* 12/16/17 06:05 Eosinophils % 0.1 % (0-4.5) D 12/18/17 07:05 Eosinophils % (Manual) 0.0 % (0-4.5) 12/16/17 06:05 Basophils % 0.3 % (0-2.0) 12/18/17 07:05 Basophils % (Manual) 0.0 % (0-2.0) 12/16/17 06:05 Myelocytes % (Man) 0 % (0-2) 12/16/17 06:05 Promyelocytes % (Man) 0 % (0-2) 12/16/17 06:05 Blast Cells % (Manual) 0 % (0-0) 12/16/17 06:05 Nucleated RBC % 0 % (0-0) 12/16/17 06:05 Metamyelocytes 0 % (0-2) 12/16/17 06:05 Smudge Cells Few 12/15/17 15:46 Hypochromia 0 12/16/17 06:05 Platelet Estimate Decreased 12/16/17 06:05 Platelet Comment No clumping noted 12/15/17 15:46 Polychromasia 0 12/16/17 06:05 Poikilocytosis 0 12/16/17 06:05 Anisocytosis 0 12/16/17 06:05 Microcytosis 0 12/16/17 06:05 Macrocytosis 0 12/16/17 06:05 ESR 40 mm/hr (0-30) H 12/16/17 11:24 Retic Count 0.24 % (0.5-1.5) L D 12/17/17 07:20 PT with INR 10.90 SEC (9.98-11.88) 12/18/17 07:05 INR 0.96 (0.82-1.09) 12/18/17 07:05 Sodium 147 mmol/L (136-145) H 12/18/17 07:05 Potassium 3.8 mmol/L (3.5-5.1) 12/18/17 07:05 Chloride 114 mmol/L (98-107) H 12/18/17 07:05 Carbon Dioxide 25 mmol/L (21-32) 12/18/17 07:05 Anion Gap 8 (8-16) 12/18/17 07:05 BUN 5 mg/dL (7-18) L 12/18/17 07:05 Creatinine 0.8 mg/dL (0.55-1.02) 12/18/17 07:05 Creat Clearance w eGFR > 60 (>60) 12/18/17 07:05 Random Glucose 82 mg/dL (74-106) 12/18/17 07:05 Lactic Acid 1.1 mmol/L (0.0-2.0) 12/15/17 20:30 Calcium 7.9 mg/dL (8.5-10.1) L 12/18/17 07:05 Phosphorus 2.7 mg/dL (2.5-4.9) 12/17/17 07:20 Magnesium 1.9 mg/dL (1.8-2.4) 12/18/17 07:05 Ferritin 2899.651 ng/ml (6.9-282.5) H 12/17/17 07:20 Total Bilirubin 0.3 mg/dL (0.2-1.0) D 12/18/17 07:05 AST 99 U/L (15-37) H 12/18/17 07:05 ALT 61 U/L (12-78) 12/18/17 07:05 Alkaline Phosphatase 76 U/L (45-117) 12/18/17 07:05 LD Total 390 U/L (84-246) H 12/18/17 07:05 Creatine Kinase 411 IU/L (26-192) H 12/16/17 06:05 Creatine Kinase Index 0.4 % (0.0-5.0) 12/16/17 06:05 CK-MB (CK-2) 1.718 ng/mL (0.5-3.6) 12/16/17 06:05 C-Reactive Protein < 0.3 MG/DL (0.00-0.3) 12/16/17 06:05 Total Protein 6.3 g/dl (6.4-8.2) L 12/18/17 07:05 Albumin 2.6 g/dl (3.4-5.0) L 12/18/17 07:05 Triglycerides 374 mg/dL (35-160) H 12/17/17 07:20 Lipase 545 U/L (73-393) H 12/15/17 18:35 Aldolase 9.8 U/L (3.3-10.3) 12/16/17 06:05 Vitamin B12 536 pg/ml (180-914) 12/18/17 07:05 Urine Color Yellow 12/15/17 21:15 Urine Appearance Cloudy 12/15/17 21:15 Urine pH 5.0 (5.0-8.0) 12/15/17 21:15 Ur Specific [place] 1.017 (1.001-1.035) 12/15/17 21:15 Urine Protein 3+ (NEGATIVE) H D 12/15/17 21:15 Urine Glucose (UA) Negative (NEGATIVE) 12/15/17 21:15 Urine Ketones Trace (NEGATIVE) H 12/15/17 21:15 Urine Blood 2+ (NEGATIVE) H 12/15/17 21:15 Urine Nitrite Negative (NEGATIVE) 12/15/17 21:15 Urine Bilirubin Negative (<2.0 mg/dL) 12/15/17 21:15 Urine Urobilinogen Negative mg/dL (0.2-1.0) 12/15/17 21:15 Ur Leukocyte Esterase 3+ (NEGATIVE) H 12/15/17 21:15 Urine WBC (Auto) 93 /hpf (3-5) 12/15/17 21:15 Urine RBC (Auto) 3 /hpf (0-3) 12/15/17 21:15 Ur Epithelial Cells Few /HPF (FEW) 12/15/17 21:15 Urine Bacteria Few /hpf (NONE SEEN) 12/15/17 21:15 Urine Mucus Rare 12/15/17 21:15 Hepatitis A IgM Ab Negative (Negative) 12/16/17 06:05 Hep Bs Antigen Negative (Negative) 12/16/17 06:05 Hep B Core IgM Ab Negative (Negative) 12/16/17 06:05 Hepatitis C Antibody 0.1 s/co ratio (0.0-0.9) 12/16/17 06:05 Microbiology 12/15/17 14:03 Stool Gram Stain - Final 12/15/17 18:35 Blood - Peripheral Venous Blood Culture - Preliminary NO GROWTH OBTAINED AFTER 48 HOURS, INCUBATION TO CONTINUE FOR 3 DAYS. 12/15/17 18:35 Blood - Peripheral Venous Blood Culture - Preliminary NO GROWTH OBTAINED AFTER 48 HOURS, INCUBATION TO CONTINUE FOR 3 DAYS. 12/15/17 14:03 Stool Clostridium difficile Antigen ([facility]) - Final 12/15/17 14:03 Stool Clostridium difficile Toxin Assay - Final Problem List - Problems (1) Acute gastroenteritis Code(s): K52.9 - NONINFECTIVE GASTROENTERITIS AND COLITIS, UNSPECIFIED Assessment/Plan Acute gastroenteritis ?Viral. Improving. ID assessment noted. Advance diet as tolerated but avoid dairy and high fat diet for now. Will continue to follow. Discussed with the patient
[2017-12-18] MEDS: valACYclovir HCL 500 MG TABLET (FP) PO SCH (10:00)
[2017-12-18] MEDS: PANTOPRAZOLE 40 MG TABLET (FP) PO SCH (10:00)
--- NOTE | 2017-12-18 12:46 | PN ---
Progress Note (short form) - Note Progress Note: clinically improved now soft stools tolerating diet no fevers weakness resolved Vital Signs Period Temp Pulse Resp BP Sys/[place]man Pulse Ox Last 24 Hr 97.5 F-98.4 F 76-83 20-20 102-108/52-68 96 cor-rrr lungs clear abd soft,nt ext no edema ambulating well, no upper thigh weakness CBC, BMP 12/18/17 07:05 12/18/17 07:05 Microbiology 12/15/17 14:03 Stool Gram Stain - Final 12/15/17 14:03 Stool Salmonella/Shigella Culture - Preliminary NO ENTERIC PATHOGENS, 24 HOURS, ON PRIMARY PLATES 12/15/17 14:03 Stool Yersinia Culture - Preliminary NO ENTERIC PATHOGENS, 24 HOURS, ON PRIMARY PLATES 12/15/17 14:03 Stool Vibrio Culture - Final NO GROWTH OF VIBRIO SPECIES OBTAINED 12/15/17 14:03 Stool Escherichia coli 0157 Culture - Final NO GROWTH OF E COLI 0157 OBTAINED 12/15/17 18:35 Blood - Peripheral Venous Blood Culture - Preliminary NO GROWTH OBTAINED AFTER 48 HOURS, INCUBATION TO CONTINUE FOR 3 DAYS. 12/15/17 18:35 Blood - Peripheral Venous Blood Culture - Preliminary NO GROWTH OBTAINED AFTER 48 HOURS, INCUBATION TO CONTINUE FOR 3 DAYS. 12/15/17 14:03 Stool Clostridium difficile Antigen ([facility]) - Final 12/15/17 14:03 Stool Clostridium difficile Toxin Assay - Final a/p gastroenteritis to complete 3 days quinolone total can f/u with me next week as outpt instructed to resume HIV meds when she is tolerating her diet please call back if needed
--- NOTE | 2017-12-18 14:08 | PN ---
Teaching Attending Note Name of Resident: Jeff Pederson ATTENDING PHYSICIAN STATEMENT I saw and evaluated the patient. I reviewed the resident's note and discussed the case with the resident. I agree with the resident's findings and plan as documented with exceptions below. SUBJECTIVE: Patient seen and examined. Doing well, no further diarrhea. no fevers/chills, nausea or vomiting. weakness resolved, ambulating well. Tolerating diet well. OBJECTIVE: Vital Signs Period Temp Pulse Resp BP Sys/[place]man Pulse Ox Last 24 Hr 97.5 F-98.4 F 76-83 20-20 102-108/52-68 96 Intake & Output 12/15/17 12/16/17 12/17/17 12/18/17 23:59 23:59 23:59 23:59 Intake Total 2300 1340 Balance 2300 1340 Weight 146 lb 0.902 oz 169 lb 4.8 oz General: ambulating in room in no acute distress Chest: CTAB, no rales or wheezing Abdomen: soft, NT, ND, positive bowel sounds Extremities: no edema LE power 5/5 Home Medication List Medication Instructions Recorded Confirmed Type Fluticasone/Vilanterol [Breo 1 each IH 12/16/17 History Ellipta 100-25 Mcg INH] Active Medications Generic Name Dose Route Start Last Admin Trade Name Freq PRN Reason Stop Dose Admin Acetaminophen 650 mg 12/15/17 22:35 12/17/17 21:15 Tylenol - PO 650 mg Q6H PRN Administration PAIN Cholecalciferol 1,000 unit 12/16/17 10:00 12/17/17 09:21 Vitamin D3 - PO 1,000 unit DAILY [facility] Administration Sodium Chloride 1,000 mls @ 100 mls/hr 12/15/17 22:45 12/17/17 23:10 Normal Saline - IV Not Given ASDIR [facility] Levofloxacin 500 mg 12/19/17 12:15 Levaquin - PO 12/19/17 12:16 ONCE ONE Olanzapine 2.5 mg 12/16/17 22:00 12/17/17 21:15 Zyprexa - PO 2.5 mg HS [facility] Administration Pantoprazole Sodium 40 mg 12/17/17 10:00 12/17/17 09:21 Protonix - PO 40 mg DAILY [facility] Administration Valacyclovir HCl 500 mg 12/16/17 10:00 12/17/17 09:21 Valtrex - PO 500 mg DAILY [facility] Administration Zolpidem Tartrate 5 mg 12/16/17 00:54 12/17/17 21:21 Ambien - PO 5 mg HS PRN Administration INSOMNIA ASSESSMENT AND PLAN: 62 yof with HIV on HAART, HTN, HLD, neuropathy admitted with nausea/vomiting/ diarrhea/abdominal pain, found with leucopenia, abnormal LFTs and now with ? proximal LE muscle weakness. -SIRS with GI symptoms/abnormal LFTs, Likely viral gastroenteritis -Leucopenia with lymphocytosis/Monocytosis, resolved -Nausea/vomiting/diarrhea/abdominal pain, suspect gastroenteritis given self resolution -Abnormal LFTs, ?Related to above vs HAART related, no concerns for gall bladder etiology -Leucopenia with severe neutropenia, ?From infection -?Promximal LE muscle weakness, resolved -?Lower uncomplicated UTI -HIV on HAART -HTN -HLD -Neuropathy Plan: Symptoms resolved. s/p Neupogen, leucopenia resolved. CT A/P reviewed, GI input appreciated. ID input noted. 3 days of levaquin. Stool studies non concerning for a far. Tolerating diet well. HAART resumption outpatient per ID. Continue zyprexa, acyclovir. D/c remeron as discussed with Dr. Ivey to minimize meds and patient not taking. Dispo Ambulating well inhouse. d/c home today after discussion with ID.
--- NOTE | 2017-12-18 14:15 | MSN ---
Progress Note (SOAP) - Subjective Chief Complaint: diarrhea and nausea History of Present Illness: Overnight, patient did not have any acute events. WBC count increased to 8.1. Patient stated that her proximal leg weakness had resolved completely and she did not have any issues with her muscle strength. Patient was seen and examined at the bedside. Patient noted that she had one more bowel movement overnight that was more formed. She denied any further episodes of diarrhea. Patient denied any cp, sob, abd pain, n/v/c, arm/leg pain , headaches, blurry vision, double vision, fevers, chills. - Current Medications Current Medications: Active Medications Acetaminophen (Tylenol -) 650 mg PO Q6H PRN PRN Reason: PAIN Last Admin: 12/17/17 21:15 Dose: 650 mg Cholecalciferol (Vitamin D3 -) 1,000 unit PO DAILY [facility] Last Admin: 12/17/17 09:21 Dose: 1,000 unit Sodium Chloride (Normal Saline -) 1,000 mls @ 100 mls/hr IV ASDIR [facility] Last Admin: 12/17/17 23:10 Dose: Not Given Levofloxacin (Levaquin -) 500 mg PO ONCE ONE Stop: 18 12:16 Olanzapine (Zyprexa -) 2.5 mg PO HS [facility] Last Admin: 12/17/17 21:15 Dose: 2.5 mg Pantoprazole Sodium (Protonix -) 40 mg PO DAILY [facility] Last Admin: 12/17/17 09:21 Dose: 40 mg Valacyclovir HCl (Valtrex -) 500 mg PO DAILY [facility] Last Admin: 12/17/17 09:21 Dose: 500 mg Zolpidem Tartrate (Ambien -) 5 mg PO HS PRN PRN Reason: INSOMNIA Last Admin: 12/17/17 21:21 Dose: 5 mg - Objective Vital Signs: Vital Signs Temperature 97.7 F 12/18/17 06:00 Pulse Rate 83 12/18/17 06:00 Respiratory Rate 20 12/17/17 22:00 Blood Pressure 105/52 12/18/17 06:00 O2 Sat by Pulse Oximetry (%) 96 12/17/17 21:00 Constitutional: Yes: Well Nourished, No Distress, Calm Eyes: Yes: WNL, Conjunctiva Clear, EOM Intact HENT: Yes: WNL, Atraumatic, Normocephalic Neck: Yes: WNL, Supple, Trachea Midline Cardiovascular: Yes: WNL, Regular Rate and Rhythm, S1, S2 Respiratory: Yes: WNL, Regular, CTA Bilaterally Gastrointestinal: Yes: WNL, Normal Bowel Sounds, Soft Musculoskeletal: Yes: WNL Extremities: Yes: WNL Edema: No Integumentary: Yes: WNL Neurological: Yes: WNL, Alert, Oriented ...Motor Strength: Yes: WNL, LUE (5/5 muscle strength), LLE (5/5 muscle strength ), RUE (5/5 muscle strength), RLE (5/5 muscle strength) Psychiatric: Yes: WNL, Alert, Oriented Labs Lab Results: CBC, BMP 12/18/17 07:05 12/18/17 07:05 Problem List - Problems (1) Diarrhea Code(s): R19.7 - DIARRHEA, UNSPECIFIED Qualifiers: Diarrhea type: unspecified type Qualified Code(s): R19.7 - Diarrhea, unspecified (2) Leukopenia Code(s): D72.819 - DECREASED WHITE BLOOD CELL COUNT, UNSPECIFIED Qualifiers: Leukopenia type: unspecified Qualified Code(s): D72.819 - Decreased white blood cell count, unspecified (3) Depression Code(s): F32.9 - MAJOR DEPRESSIVE DISORDER, SINGLE EPISODE, UNSPECIFIED (4) HIV (human immunodeficiency virus infection) Code(s): Z21 - ASYMPTOMATIC HUMAN IMMUNODEFICIENCY VIRUS INFECTION STATUS Assessment/Plan Patient is a 62y/o female with a PMhx of HIV, HTN, hyperlipidemia, neuropathy who presented after a 4 day hx of diarrhea, nausea, lightheadness, weakness and poor oral intake admitted for sepsis secondary to gastroenteritis. Sepsis secondary to Gastroenteritis vs. UTI -afebrile, leukopenic, tachycardic on admission -UA was positive, patient remained asymptomatic -Stool cultures negative -Blood cultures negative -d/c Ceftriaxone/Flagyl given new proximal LE weakness. -Started on levaquin 750 and vancomycin 125 q6h. Vancomycin d/c per ID due to low probability for C diff. -One more dose of Levaquin PO as per ID. -ID consulted, recs appreciated -Abd/pelvis CT showed increased fluid within the colon consistent with diarrheal illness and mild thickening of the second portion of duodenum -GI consulted, recs appreciated. Patient to restart normal diet with limitations to exclude dairy and fatty foods. Proximal LE weakness - rule out GBS given diarrheal symptoms - CK elevated at 411 - Neuro consulted, recs appreciated - ESR 40, CRP within normal limits - aldolase 9.8 within normal limits - Patient improved with normal 5/5 muscle strength throughout Transaminitis -Liver US showed mild hepatomegaly with fatty infiltrate, no gallstones -Serology negative, HCV, CMV pending -HAART meds held -LFTs trending down, AST 108 ALT 66 on 12/17, AST 99 ALT 61 on 12/18 Acute Kidney Injury -IV fluids, NS at 100cc/hr -BUN/CRE at 6/0.9 on 12/17 -continue to monitor Neutropenia -leukocytes 700; last CD4>500 -neutropenic precautions -Heme consult, recs appreciated -Granex 300mcg once given as per heme/onc HIV -held HAART meds -valcyclovir continued -will have outpatient f/u to restart medications Insomnia -Ambien 5mg qhs prn Depression -Olanzapine 2.5mg qhs F/E/N -Normal saline 100cc/hour -Neutropenic diet DVT PPx -SCDs Disposition -stable for discharge home with services
[2017-12-18 14:19] VITALS: BP 107/77; PULSE 88; TEMP 97.6
--- NOTE | 2017-12-18 15:01 | PN ---
Progress Note (short form) - Note Progress Note: feels well today Constitutional: Yes: Well Nourished, No Distress, Calm Eyes: Yes: Conjunctiva Clear HENT: Yes: Atraumatic, Normocephalic Neck: Yes: Supple Cardiovascular: Yes: Regular Rate and Rhythm Respiratory: Yes: Regular Gastrointestinal: Yes: Normal Bowel Sounds, Soft Musculoskeletal: Yes: WNL Extremities: Yes: WNL Edema: No Neurological: Yes: Alert, Oriented Last Vital Signs Temp Pulse Resp BP Pulse Ox 97.6 F 88 20 107/77 96 12/18/17 14:00 12/18/17 14:00 12/18/17 14:00 12/18/17 14:00 12/17/17 21:00 CBC, BMP 12/18/17 07:05 12/18/17 07:05 Current Medications Generic Name Dose Route Start Last Admin Trade Name Freq PRN Reason Stop Dose Admin Acetaminophen 650 mg 12/15/17 22:35 12/17/17 21:15 Tylenol - PO 650 mg Q6H PRN Administration PAIN Cholecalciferol 1,000 unit 12/16/17 10:00 12/17/17 09:21 Vitamin D3 - PO 1,000 unit DAILY [facility] Administration Sodium Chloride 1,000 mls @ 100 mls/hr 12/15/17 22:45 12/17/17 23:10 Normal Saline - IV Not Given ASDIR [facility] Olanzapine 2.5 mg 12/16/17 22:00 12/17/17 21:15 Zyprexa - PO 2.5 mg HS [facility] Administration Pantoprazole Sodium 40 mg 12/17/17 10:00 12/17/17 09:21 Protonix - PO 40 mg DAILY [facility] Administration Valacyclovir HCl 500 mg 12/16/17 10:00 12/17/17 09:21 Valtrex - PO 500 mg DAILY [facility] Administration Zolpidem Tartrate 5 mg 12/16/17 00:54 12/17/17 21:21 Ambien - PO 5 mg HS PRN Administration INSOMNIA Neutropenia/Thrombocytopenia likely acute illness related now improved
--- NOTE | 2017-12-18 16:26 | DS ---
Physical Exam: SUBJECTIVE: Patient seen and examined - no overnight events; VSS; OOB w/o assistance; No further episodes of diarrhea overnight; legs with full strength, stable gait today; denies f/c/n/v, [place], chills, cough, sob, ab pain, cp, back pain, LE edema, numbness/weakness in extremities OBJECTIVE: Vital Signs Intake & Output 12/15/17 12/16/17 12/17/17 12/18/17 23:59 23:59 23:59 23:59 Intake Total 2300 1840 Balance 2300 1840 Weight 66.25 kg 76.793 kg Period Temp Pulse Resp BP Sys/Inman Pulse Ox Last 24 Hr 97.5 F-98.4 F 76-88 20-20 102-108/52-77 96 PHYSICAL EXAM GENERAL: Middle aged woman, NAD, A&Ox3 HEAD: Normal with no signs of trauma. EYES: PERRL, extraocular movements intact, sclera anicteric, conjunctiva clear. No ptosis. ENT: Ears normal, nares patent, oropharynx clear without exudates, moist mucous membranes. LUNGS: Breath sounds equal, clear to auscultation bilaterally, no wheezes, no crackles, no accessory muscle use. HEART: Regular rate and rhythm, S1, S2 without murmur, rub or gallop. ABDOMEN: Slightly distended abdomen, soft, nontender,normoactive bowel sounds, voluntary guarding, no rebound, no hepatosplenomegaly, no masses. EXTREMITIES: 2+ pulses, warm, well-perfused, no edema. NEUROLOGICAL: Cranial nerves II through XII grossly intact. Normal speech, gait not observed. 5/5 strength in all muscle groups, sensation intact diffusely. ambulating well. PSYCH: Normal mood, normal affect. LABS Laboratory Results - last 24 hr CBC, BMP 12/18/17 07:05 12/18/17 07:05 12/16/17 12/16/17 12/18/17 06:05 06:05 07:05 WBC RBC Hgb Hct MCV MCH MCHC RDW Plt Count MPV Neutrophils % Lymphocytes % Monocytes % Eosinophils % Basophils % PT with INR INR Sodium 147 H Potassium 3.8 Chloride 114 H Carbon Dioxide 25 Anion Gap 8 BUN 5 L Creatinine 0.8 Creat Clearance w eGFR > 60 Random Glucose 82 Calcium 7.9 L Magnesium 1.9 Total Bilirubin 0.3 D AST 99 H ALT 61 Alkaline Phosphatase 76 LD Total 390 H Total Protein 6.3 L Albumin 2.6 L Aldolase 9.8 Vitamin B12 536 HCV Quantitation Hcv not detected HCV RNA log copies/mL TNP 12/18/17 12/18/17 07:05 07:05 WBC 8.1 D RBC 3.73 Hgb 10.9 Hct 33.1 MCV 88.9 MCH 29.2 MCHC 32.9 RDW 15.6 Plt Count 130 L MPV 8.7 Neutrophils % 81.1 D Lymphocytes % 13.8 D Monocytes % 4.7 Eosinophils % 0.1 D Basophils % 0.3 PT with INR 10.90 INR 0.96 Sodium Potassium Chloride Carbon Dioxide Anion Gap BUN Creatinine Creat Clearance w eGFR Random Glucose Calcium Magnesium Total Bilirubin AST ALT Alkaline Phosphatase LD Total Total Protein Albumin Aldolase Vitamin B12 HCV Quantitation HCV RNA log copies/mL Microbiology 12/15/17 18:35 Blood - Peripheral Venous Blood Culture - Preliminary NO GROWTH OBTAINED AFTER 48 HOURS, INCUBATION TO CONTINUE FOR 3 DAYS. 12/15/17 18:35 Blood - Peripheral Venous Blood Culture - Preliminary NO GROWTH OBTAINED AFTER 48 HOURS, INCUBATION TO CONTINUE FOR 3 DAYS. 12/15/17 14:03 Stool Clostridium difficile Antigen (JUSTINA) - Final 12/15/17 14:03 Stool Clostridium difficile Toxin Assay - Final CXR 12/15 - No acute pathology Liver U/S 12/16 - IMPRESSION: Mild hepatomegaly with a slightly dense echotexture suggestive of mild fatty infiltration versus hepatocellular disease. Please correlate with liver enzymes. No gallstones are identified. CT ab/pelvis 12/16 - IMPRESSION: Increased fluid content is seen within the length of the colon consistent with the history of diarrheal illness. No CT evidence of acute appendicitis. There is possible mild concentric wall thickening of the length of the second portion of the duodenal sweep could be on the basis of duodenitis (versus being artifactual due to underdistention) . If clinically indicated correlate with endoscopy versus follow-up CT with oral contrast. In comparison to a [address] study interval development of mild focal opacity is seen within the left lower lobe laterally which may be on the basis of atelectasis and/or infiltrate. Correlate clinically. There has been interval resolution of a infiltrate within the left lower lobe posteriorly. Consults: ID - seen by Dr. Uche Neuro - seen by Dr. Stallings [facility] COURSE: Prehospital course: Patient is a 62 yo F with pmhx of HIV, HTN, HLD, Neuropathy, presented to the ED because of nausea and nonbilious, non bloody diarrhea with chills for the last 4 days. She also complains of lightheadedness and weakness which she says from poor oral intake this past week. She has been off her HIV meds since Thursday because of nausea. She said her last CD4 count in the office was over 500. Patient recently traveled to [place] last month. Patient denies SOB, Ches pain, abdominal pain, dysuria, sick contacts, and fevers. ER course was notable for: (1) 1gm Ceftriaxone, Flagyl (2) IV fluids 2 L NS [facility] course: On admission, pt reporting BL proximal leg weakness, in addition to multiple bout of watery, NB diarrhea. Pt afebrile, with stable vitals. Labs on admission notable for leukopenia (wbc 1.2), thrombocytopenia (110) and moderately elevated AST (150) and lipase (545). UA notable for 3+ protein, 2+ blood and 3+ leuk esterase. CXR with no pathology noted. ID consulted. Pancultured. Stool wbc , culture, O&P sent. CMV, cryptosporidium, giardia and c diff studies also sent. Pt initially started on rocephin/flagyl, however converted to levaquin IV , given risk of worsening of neuropathy of prior abx regimen. ESR, CRP and aldolase also sent, with only ESR returning mildly elevated (40). CK slightly elevated 400. Pt placed on neutropenic precautions, continued on IVFs, HIV meds held. Liver U/S ordered given mildly elevated LFTs and CT ab/pelvis ordered, with results noted above. Neuro consulted for proximal LE weakness, however in PM of day 2 of admission, pt with full resolution of LE weakness. Per neuro, likely secondary to dehydration vs. metabolic derangement (hypocalcemia). Hematology also consulted for leukopenia, ordered pt for Granix. GI consulted, suggested likely viral pathology to diarrhea, recommended advancing diet as tolerated. Pt continued to improve symptomatically over course of admission, with resolution of diarrhea on 12/18. Pt cleared for independent ambulation by PT. Pt discharged home with VNS and outpt f/u with PCP Dr. Ivey in one week. Sent out with last dose of levaquin PO on 12/19 to finish 3 day course. No further neurologic work-up was recommended at this time, given resolution of symptoms. Date of Admission:12/16/17 Date of Discharge: 12/18/17 Pt is medically stable and cleared for discharge with outpt f/u with Dr. Ivey in one week. Minutes to complete discharge: 35 Discharge Summary Reason For Visit: DIARRHEA LEUKOPENIA VOMITING DEHYDRATION Current Active Problems Acute gastroenteritis (Acute) Diarrhea (Acute) Vomiting (Acute) Weakness generalized (Acute) Leukopenia (Chronic) Condition: Stable - Instructions Diet, Activity, Other Instructions: During your stay at [facility], you were treated for diarrhea and weakness in your legs. Infectious work-up of your diarrhea suggests a viral gastroenteritis. You diarrhea and leg weakness have since resolved and you are being discharge home with visiting nurse services. Medications: The following medications were started during your stay at [facility]. Please take them as directed below: Levaquin 500mg, take one pill tomorrow (12/19). After this, you have completed the remainder of your antibiotic course. Please continue to take all other medications as previously prescribed. Follow-ups: Please follow-up with your primary care physician in one week for further management of your medications. Please call their office to schedule an appointment. Please follow-up with our infectious disease physician, Dr. Ivey, in one week for further management of your HIV and analysis of your remaining pending cultures. Her contact number has been provided in this packet. Please call her office to make an appointment. Also blood tests including Myeloma studies, CMV DNA PCR, parvovirus, Folate have been pending, please have Dr. Ivey follow up on the results. Please obtain the following lab tests in 3-5 days upon discharge. Please have the results sent to your primary care provider. Complete Blood Count Liver function tests Diet/exercise: You are approved for ambulation without assistance. Please increase your exercise regimen as tolerated. If you note any further weakness or numbness in your legs or worsening unsteadiness in your gait, please return to the hospital. Please return to the hospital if you experience any of the following symptoms: - Worsening, persistent diarrhea - Prolonged fevers/chills - Severe fatigue - Any blood or significant changes in your stool - Any new or concerning symptoms Referrals: Jamila Ivey MD [Primary Care Provider] - 1 Week Disposition: VNS/HOME HEALTH CARE - Home Medications Comprehensive Discharge Medication List: Ambulatory Orders Albuterol Sulfate Inhaler - [Ventolin HFA Inhaler -] 1 - 2 inh PO Q4H #1 inhaler 08/20/17 Cholecalciferol (Vitamin D3) [Vitamin D3 -] 1,000 unit PO DAILY #30 tab Abacavir Sulfate/Lamivudine [Epzicom Tablet] 1 tablet PO DAILY #30 tablet Darunavir Ethanolate [Prezista -] 800 mg PO DAILY #30 tablet 10/29/17 Ritonavir [Norvir -] 100 mg PO DAILY #30 tab 10/29/17 Tenofovir Disoproxil Fumarate [Viread -] 300 mg PO DAILY #30 tablet 10/29/17 Valacyclovir HCl [Valtrex] 500 mg PO DAILY #30 tablet 10/29/17 Mirtazapine [Remeron -] 15 mg PO DAILY #30 tablet 11/05/17 Olanzapine [Zyprexa] 2.5 mg PO HS #30 tablet 11/05/17 Zolpidem Tartrate [Ambien] 5 mg PO HS #30 tablet MDD 1 11/05/17 levoFLOXacin [Levaquin -] 500 mg PO ONCE #1 tablet 12/18/17 This patient is new to me today: No Emergency Visit: Yes ED Registration Date: 12/16/17 Care time: The patient presented to the Emergency Department on the above date and was hospitalized for further evaluation of their emergent condition. Critical Care patient: No - Discharge Referral Referred to [facility] Med P.C.: No
[2017-12-18] MEDS ORDERED: PT OWN MED DRAWER 7, Y5N ONE (16:39)
[2017-12-18] MEDS: CHOLECALCIFEROL (VITAMIN D3) 1,000 UNIT TABLET (FP) PO SCH (16:41)
[2017-12-19 06:06] LABS: SERUM IRON SATURATION 52 % (15-55); TOTAL IRON BINDING CAPACITY 152 ug/dL (250-450); UIBC 73 ug/dL (118-369)
[2017-12-19 16:14] LABS: PARV B19 IGG 2.2 index (0.0-0.8); PARV B19 IGM 0.1 index (0.0-0.8)
--- NOTE | 2017-12-21 11:57 | PATH ---
Surgical Pathology Report Patient Name: ANIKA ALLEN [facility]. Rec. #: [id number] /Age/Gender: 1955 (Age: 62) / F Account: [id number] Location: [address] [place] [address] Taken: 12/18/2017 Received: 12/18/2017 Reported: 12/21/2017 Physicians: Charisse Mckenzie M.D. Specimen(s) Received PERIPHERAL BLOOD Clinical History Pancytopenia, AIDS Final Diagnosis COMPREHENSIVE FLOW PANEL performed and interpreted at [facility] laboratory, [place], [place] ([id number]) shows the following: INTERPRETATION: No atypical flow cytometric findings seen. See [facility] report for details ([id number]). Electronically Signed Aleksandra Guzman M.D. Gross Description Received labelled with the patient's name are 2 green top tubes of peripheral blood which are forwarded to [facility] for ancillary testing. [facility]/12/18/2017 [facility]/12/18/2017
== END 2017-12-18 20:30 | disposition home health service (06) | DRG 391 ==
LOC: JER 13:50 → JERBED 19:59 → OBSVTOIN 12-16 08:35 → J6S 12-16 19:54
PROVIDERS: ADMIT Internal Medicine; ATTEND Hospitalist
DX: A08.4 Viral intestinal infection, unspecified (principal); B20 Human immunodeficiency virus [HIV] disease; N17.9 Acute kidney failure, unspecified; N39.0 Urinary tract infection, site not specified; I10 Essential (primary) hypertension; E78.5 Hyperlipidemia, unspecified; K21.9 Gastro-esophageal reflux disease without esophagitis; J44.9 Chronic obstructive pulmonary disease, unspecified; D72.819 Decreased white blood cell count, unspecified; R19.7 Diarrhea, unspecified; D70.9 Neutropenia, unspecified; E87.6 Hypokalemia; E83.51 Hypocalcemia; R74.0 Nonspecific elevation of levels of transaminase and lactic acid dehydrogenase [LDH]; D69.6 Thrombocytopenia, unspecified; E86.0 Dehydration; R00.0 Tachycardia, unspecified; G47.00 Insomnia, unspecified; F41.8 Other specified anxiety disorders; R63.0 Anorexia; Z68.23 Body mass index [BMI] 23.0-23.9, adult; Z87.891 Personal history of nicotine dependence; Z21 Asymptomatic human immunodeficiency virus [HIV] infection status
CPT/HCPCS: 36415; 71045-TC-FY; 74177-TC; 76705-TC; 80053; 80074; 81003; 81015; 82085; 82550; 82553; 82607; 82728; 82747; 82784; 83540; 83550; 83605; 83615; 83690; 83735; 84100; 84155; 84165; 84478; 85014; 85025; 85044; 85610; 85651; 86140; 86334; 86747; 87040; 87045; 87046; 87086; 87205; 87207; 87324; 87328; 87329; 87449; 87496; 87522; 88300-TC; 93005; 93010; 97116-GP; 97161-GP; 99285-25; G0378; J1447; J7030

== ENCOUNTER 2018-05-18 14:51 | Inpatient (IN) | payer OTHER ==
--- NOTE | 2018-05-18 15:31 | PDOC ---
Rapid Medical Evaluation Time Seen by Provider: 05/18/18 15:24 Medical Evaluation: Allergies Allergy/AdvReac Type Severity Reaction Status Date / Time Penicillins Allergy Unknown Swelling Verified 05/18/18 15:24 MAYONAISE AdvReac Uncoded 05/18/18 15:24 05/18/18 15:25 Pt is a 63 y/o F with PMH of HIV who presents to the ED for fatigue for 2 weeks. Pt states today she feels dizzy and lightheaded. Seen by Dr. Joshi today who recommended coming to the ED Exam: Ambulatory, NAD Orders: Labs, IV insert, ekg Pt to proceed to ED for further evaluation Discharge Disposition - Diagnosis Fatigue - Referrals - Patient Instructions - Post Discharge Activity
[2018-05-18 16:45] LABS: BASO % 0.8 % (0-2.0); EOS % 0.3 % (0-4.5); HEMATOCRIT 32.4 % (32.4-45.2); HEMOGLOBIN 10.5 GM/dL (10.7-15.3); LYMPH % 20.2 % (8-40); MCH 26.4 pg (25.7-33.7); MCHC 32.3 g/dl (32.0-36.0); MEAN CELL VOLUME 81.6 fl (80-96); MEAN PLT VOLUME 9.3 fl (7.5-11.1); MONO % 25.2 % (3.8-10.2); NEUT % 53.5 % (42.8-82.8); PLATELET COUNT 127 K/MM3 (134-434); RBC 3.97 M/mm3 (3.60-5.2); RDW 14.9 % (11.6-15.6)
[2018-05-18] MEDS ORDERED: SODIUM CHLORIDE 1,000 ML IV STA ×2 (16:46→18:51)
[2018-05-18 16:52] LABS: WHITE BLOOD COUNT 1.8 K/mm3 (4.0-10.0)
--- NOTE | 2018-05-18 16:56 | PDOC ---
History of Present Illness - General Chief Complaint: Weakness Stated Complaint: FATIGUE, LOSS OF APPETITE, CHILLS, DIARRHEA Time Seen by Provider: 05/18/18 15:24 - History of Present Illness Initial Comments: 05/18/18 16:59 The patient is a 63 year old female with a significant past medical history of hypertension, hyperlipidemia, asthma, COPD, anemia, anxiety, and HIV who presents to the emergency department with weakness and fatigue for about 3 weeks. The patient reports generalized weakness. Pt states that she has had intermittent diarrhea but denies nausea/vomiting. Denies abdominal pain. Pt admits to anorexia and very poor PO intake for several weeks. She has also neglected to take all of her meds, including her ARVs. Past History - Past Medical History Allergies/Adverse Reactions: Allergies Allergy/AdvReac Type Severity Reaction Status Date / Time Penicillins Allergy Unknown Swelling Verified 05/18/18 15:24 MAYONAISE AdvReac Uncoded 05/18/18 15:24 Home Medications: Ambulatory Orders Albuterol Sulfate Inhaler - [Ventolin HFA Inhaler -] 1 - 2 inh PO Q4H #1 inhaler 08/20/17 Abacavir Sulfate/Lamivudine [Epzicom Tablet] 1 tablet PO DAILY #30 tablet Cholecalciferol (Vitamin D3) [Vitamin D3 -] 1,000 unit PO DAILY #30 tab Darunavir Ethanolate [Prezista -] 800 mg PO DAILY #30 tablet 05/04/18 Ritonavir [Norvir -] 100 mg PO DAILY #30 tab 05/04/18 Tenofovir Disoproxil Fumarate [Viread -] 300 mg PO DAILY #30 tablet 05/04/18 Valacyclovir HCl [Valtrex] 500 mg PO BID #60 tablet 05/04/18 Mirtazapine [Remeron -] 15 mg PO DAILY #30 tablet 05/06/18 Olanzapine [Zyprexa] 2.5 mg PO HS #30 tablet 05/06/18 Zolpidem Tartrate [Ambien] 10 mg PO HS #30 tablet MDD 1 05/06/18 Atovaquone [Mepron -] 750 mg PO BID #210 ml 05/18/18 Anemia: Yes Asthma: No Cancer: No Cardiac Disorders: No CVA: No COPD: No CHF: No DVT: No Dementia: No Diabetes: No GI Disorders: Yes (GERD) Disorders: No HTN: Yes Hypercholesterolemia: No Liver Disease: No Psychiatric Problems: Yes (ANXIETY) Seizures: No - Surgical History Abdominal Surgery: Yes (EXPLORATORY) - Immunization History Immunization Up to Date: Yes - Suicide/Smoking/Psychosocial Hx Smoking Status: No Smoking History: Current some day smoker Have you smoked in the past 12 months: Yes Number of Cigarettes Smoked Daily: 2 If you are a former smoker, when did you quit?: 2 months ago Cigars Per Day: 0 Information on smoking cessation initiated: No 'Breaking Loose' booklet given: 12/15/17 Hx Alcohol Use: No Drug/Substance Use Hx: No Substance Use Type: None Hx Substance Use Treatment: No Review of Systems - Review of Systems Comments:: 05/18/18 17:07 "GENERAL/CONSTITUTIONAL: (+) generalized weakness. No fever HEAD, EYES, EARS, NOSE AND THROAT: No change in vision. No ear pain or discharge. No sore throat. CARDIOVASCULAR: No chest pain RESPIRATORY: No cough, wheezing, or hemoptysis. GASTROINTESTINAL: (+) diarrhea. No vomiting or constipation. GENITOURINARY: No dysuria, frequency, or change in urination. MUSCULOSKELETAL: No joint or muscle swelling or pain. No neck or back pain. SKIN: No rash NEUROLOGIC: No headache, vertigo, loss of consciousness, or change in strength/ sensation. ENDOCRINE: No increased thirst. No abnormal weight change. HEMATOLOGIC/LYMPHATIC: No anemia, easy bleeding, or history of blood clots. ALLERGIC/IMMUNOLOGIC: No hives or skin allergy. " *Physical Exam - Vital Signs Last Vital Signs Temp Pulse Resp BP Pulse Ox 98.6 F 91 H 18 95/57 100 05/18/18 15:24 05/18/18 15:24 05/18/18 15:24 05/18/18 15:24 05/18/18 15:24 - Physical Exam Comments: 05/18/18 17:07 GENERAL: Awake, alert, and fully oriented, in no acute distress. HEAD: No signs of trauma EYES: PERRLA, EOMI, sclera anicteric, conjunctiva clear ENT: Auricles normal inspection, hearing grossly normal, nares patent, oropharynx clear without exudates. Moist mucosa NECK: Nontender, no stepoffs, Normal ROM, supple, no lymphadenopathy, JVD, or masses LUNGS: Breath sounds equal, clear to auscultation bilaterally. No wheezes, and no crackles HEART: Regular rate and rhythm, normal S1 and S2, no murmurs, rubs or gallops ABDOMEN: Soft, nontender, normoactive bowel sounds. No guarding, no rebound. No masses EXTREMITIES: Normal range of motion, no edema. No clubbing or cyanosis. No cords, erythema, or tenderness NEUROLOGICAL: Cranial nerves II through XII intact. 5/5 strength and sensation in all extremities, Normal speech, normal gait, normal cerebellar function SKIN: Warm, Dry, normal turgor, no rashes or lesions noted. ED Treatment Course - LABORATORY CBC & Chemistry Diagram: 05/18/18 16:20 05/18/18 16:20 Medical Decision Making - Medical Decision Making 05/18/18 17:07 63 F with generalized weakness and fatigue in the setting of severe anorexia. Pt cachectic on exam but HD stable. Will evaluate for electrolyte derangements. Will also perform infectious work up as pt is HIV+ not on ARVs. Pt has h/o cryptococcus, will need w/u for opportunistic infections. - Labs, cultures - Stool studies - IVF - Admit 05/18/18 17:43 Labs notable for ANC 1.0 Electrolytes unremarkable. Pt admitted to hospitalist. *DC/Admit/Observation/Transfer Diagnosis at time of Disposition: Fatigue, Neutropenia, HIV (human immunodeficiency virus infection), Anorexia - Discharge Dispostion Decision to Admit order: Yes - Referrals - Patient Instructions - Post Discharge Activity - Attestations Physician Attestion: 05/18/18 17:45 I, Dr. Beka Morrow MD, attest that this document has been prepared under my direction and personally reviewed by me in its entirety. I further attest, that it accurately reflects all work, treatment, procedures and medical decision -making performed by me.
[2018-05-18 17:01] LABS: INR 0.96 (0.83-1.09); PROTHROMBIN TIME (PATIENT) 10.9 SEC (9.7-13.0)
[2018-05-18 17:10] LABS: ALBUMIN 3.3 g/dl (3.4-5.0); ANION GAP 8 MMOL/L (8-16); BLOOD UREA NITROGEN 14 mg/dL (7-18); CHLORIDE 104 mmol/L (98-107); CO2 28 mmol/L (21-32); CREATININE 1.1 mg/dL (0.55-1.02); GLUCOSE,RANDOM 85 mg/dL (74-106); SGPT/ALT 52 U/L (12-78); SODIUM 140 mmol/L (136-145)
[2018-05-18 17:12] LABS: ALK PHOS 102 U/L (45-117); BILIRUBIN,TOTAL 0.3 mg/dL (0.2-1.0); POTASSIUM 4.3 mmol/L (3.5-5.1); SGOT/AST 62 U/L (15-37); TOT PROT 7.7 g/dl (6.4-8.2)
--- NOTE | 2018-05-18 17:59 | PN ---
Teaching Attending Note Name of Resident: Renetta Grady ATTENDING PHYSICIAN STATEMENT I saw and evaluated the patient. I reviewed the resident's note and discussed the case with the resident. I agree with the resident's findings and plan as documented with exceptions below. SUBJECTIVE: 63 yof with PMHx of HIV on HAART (last Cd4 05/04 64), Anorexia nervosa, depression, COPD, prior admission with diarrhea/neutropenia (felt from acute illness), has stopped taking all her meds for last few weeks after reported argument in the family. Has not been eating well, reports some diarrhea every time she eats. Has been followed by Dr. Ivey on 05/04, 05/06, when was agreable to resuming her medications. Seen today with ongoing anorexia, not taking her meds, was sent to the ED. Patient reports having family discord few months ago, has not been eating well, occasionally will have full meals and stopped all ,medications about 4-6 months ago. Reports some diarrhea when she eats, feels its from her intermittent starving. No fevers, cough, dyspnea, abdominal pain, nausea, vomiting, sputum, neck pain, or new concerns. Currently feels well, motivated to eat and take her medications. No SI or HI. OBJECTIVE: Vital Signs Period Temp Pulse Resp BP Sys/Inman Pulse Ox Last 24 Hr 98.6 F 91 18 95/57 100 Intake & Output 05/15/18 05/16/18 05/17/18 05/18/18 23:59 23:59 23:59 23:59 Weight 140 lb GENERAL: Awake, alert, and fully oriented, in no acute distress. HEAD: Normal with no signs of trauma. EYES: Pupils equal, round and reactive to light, extraocular movements intact, sclera anicteric, conjunctiva clear. No lid lag. EARS, NOSE, THROAT: Ears normal, nares patent, oropharynx clear without exudates. mildly dry mucous membrane NECK: Soft, supple, no JVD LUNGS: few bibasilar rales, good air entry bilaterally, no whezing. HEART: S1S2 regular rate rhythm ABDOMEN: Soft, nontender, not distended, normoactive bowel sounds, no guarding, no rebound, no masses. MUSCULOSKELETAL: Normal range of motion at all joints. No bony deformities or tenderness. No CVA tenderness. UPPER EXTREMITIES: 2+ pulses, warm, well-perfused. No cyanosis. No clubbing. No peripheral edema. LOWER EXTREMITIES: 2+ pulses, warm, well-perfused. No calf tenderness. No peripheral edema. NEUROLOGICAL: Cranial nerves II-XII intact. Normal speech. Gait deferred, facial symmetry, speech normal PSYCHIATRIC: Cooperative. Good eye contact. Appropriate mood and affect. SKIN: Warm, dry,decreased skin turgor, no rashes or lesions noted, normal capillary refill. Home Medications Medication Instructions Recorded Albuterol Sulfate Inhaler - 1 - 2 inh PO Q4H #1 inhaler 08/20/17 [Ventolin HFA Inhaler -] Abacavir Sulfate/Lamivudine 1 tablet PO DAILY #30 tablet 05/04/18 [Epzicom Tablet] Cholecalciferol (Vitamin D3) 1,000 unit PO DAILY #30 tab 05/04/18 [Vitamin D3 -] Darunavir Ethanolate [Prezista -] 800 mg PO DAILY #30 tablet 05/04/18 Ritonavir [Norvir -] 100 mg PO DAILY #30 tab 05/04/18 Tenofovir Disoproxil Fumarate 300 mg PO DAILY #30 tablet 05/04/18 [Viread -] Valacyclovir HCl [Valtrex] 500 mg PO BID #60 tablet 05/04/18 Mirtazapine [Remeron -] 15 mg PO DAILY #30 tablet 05/06/18 Olanzapine [Zyprexa] 2.5 mg PO HS #30 tablet 05/06/18 Zolpidem Tartrate [Ambien] 10 mg PO HS #30 tablet MDD 1 05/06/18 Atovaquone [Mepron -] 750 mg PO BID #210 ml 05/18/18 Laboratory Results - last 24 hr 05/18/18 05/18/18 05/18/18 16:20 16:20 16:20 WBC 1.8 L* RBC 3.97 Hgb 10.5 L Hct 32.4 MCV 81.6 MCH 26.4 MCHC 32.3 RDW 14.9 Plt Count 127 L MPV 9.3 Absolute Neuts (auto) 1.0 L Neutrophils % 53.5 D Neutrophils % (Manual) 52.0 Band Neutrophils % 4.0 Lymphocytes % 20.2 D Lymphocytes % (Manual) 30.0 D Monocytes % 25.2 H Monocytes % (Manual) 13 H D Eosinophils % 0.3 Eosinophils % (Manual) 0.0 Basophils % 0.8 Basophils % (Manual) 0.0 Nucleated RBC % 1 H Platelet Estimate Slt decrease Platelet Comment No clumping noted PT with INR 10.90 INR 0.96 Sodium 140 Potassium 4.3 Chloride 104 Carbon Dioxide 28 Anion Gap 8 BUN 14 Creatinine 1.1 H Creat Clearance w eGFR 50.33 Random Glucose 85 Calcium 8.0 L Total Bilirubin 0.3 AST 62 H ALT 52 Alkaline Phosphatase 102 Creatine Kinase Troponin I Total Protein 7.7 Albumin 3.3 L 05/18/18 16:20 WBC RBC Hgb Hct MCV MCH MCHC RDW Plt Count MPV Absolute Neuts (auto) Neutrophils % Neutrophils % (Manual) Band Neutrophils % Lymphocytes % Lymphocytes % (Manual) Monocytes % Monocytes % (Manual) Eosinophils % Eosinophils % (Manual) Basophils % Basophils % (Manual) Nucleated RBC % Platelet Estimate Platelet Comment PT with INR INR Sodium Potassium Chloride Carbon Dioxide Anion Gap BUN Creatinine Creat Clearance w eGFR Random Glucose Calcium Total Bilirubin AST ALT Alkaline Phosphatase Creatine Kinase 92 Troponin I < 0.02 Total Protein Albumin CXR PA/Lateral prelim image review no acute process, await official read ASSESSMENT AND PLAN: 63 yof with PMHx of HIV on HAART (last Cd4 05/04 64), Anorexia nervosa, depression, COPD, prior admission with diarrhea/neutropenia (felt from acute illness), admitted with anorexia, dehydration, stopping all her meds and leucopenia with absolute neutropenia. -Anorexia -Dehydration -Leucopenia with absolute neutropenia, suspect from active HIV virus from stopping her HAART (similar prior history in the setting of non compliance to her HAART) -Diarrhea, suspect refeeding syndrome, similar prior history -HIV -Depression -COPD Plan: Aggressive IVF, nutrition consult. Patient motivated, no active SI/HI. Resume home psych meds. Resume HAART. Continue atovaquone, valcyclovir. Screen for infection, CXR, blood cx, ua/urine cultures and treat accordingly. No focal s/s concerning for infection currently. Hold off on emperic antibiotics currently. Stool studies if recurrent diarrhea. Neutropenic precautions. Trend CBC for now, address G-CSF based on the counts over next 24-[address] Ivey, case discussed in detail, in agreement with plan. dVTPPX heparin PT eval Will likely benefit from short term rehab. Social work consult. Dispo pending clinical improvement. Plan discussed with patient in detail, all questions answered. Patient relays understanding and in agreement. Total admit time 65 min.
[2018-05-18 18:01] LABS: PLATELET ESTIMATE SLT DECREASE
[2018-05-18] MEDS ORDERED: PATIENT'S OWN MEDICATION (NON-FORMULARY) (Abacavir Sulfate/Lamivudine [Epzicom Tablet] 1 T PO SCH (18:42)
[2018-05-18] MEDS ORDERED: ALBUTEROL SO4 8 GM HFA INHALER IH PRN (18:42)
[2018-05-18] MEDS ORDERED: TENOFOVIR DISOPROXIL FUMARATE 300 MG TABLET PO SCH (18:45)
[2018-05-18 19:05] LABS: URINE APPEARANCE CLEAR; URINE BILIRUBIN NEGATIVE (<2.0 mg/dL); URINE COLOR LTYELLOW; URINE GLUCOSE (UA) NEGATIVE (NEGATIVE); URINE KETONE NEGATIVE (NEGATIVE); URINE NITRITE NEGATIVE (NEGATIVE); URINE PROTEIN NEGATIVE (NEGATIVE); URINE UROBILINOGEN NEGATIVE mg/dL (0.2-1.0)
[2018-05-18 19:14] LABS: URINE LEUK ESTERASE 1+ (NEGATIVE)
[2018-05-18 19:16] LABS: EPI CELLS RARE /HPF (FEW); URINE HYALINE CAST 1 /lpf; URINE MUCUS RARE
--- NOTE | 2018-05-18 19:16 | HP ---
CHIEF COMPLAINT:generalized weakness PCP:Dr. Ivey HISTORY OF PRESENT ILLNESS: Patient is a 63 year old female with past medical history of Asthma, COPD, anemia, anxiety and HIV on HAART (since 2004), presented with generalized weakness that started 3 weeks ago. Patient states that she has been progressively feeling weak and fatigued, and had very poor appetite. She reports that she hasn't been taking her medications since about 4 months ago, brought about by problems at home. About this time, she reported to be not eating well, and when she does, she reports some diarrhea. Patient was seen today at Dr. Ivey's office, complaining of dizziness and anorexia. She was noted to be taking her medications, and was sent to the ED. Patient was previously admitted in 12/2017 for sepsis and after which, reported she never took her medications. In 05/04/18, CD4 was 63. Patient denies fevers, cough, dyspnea, abdominal pain, nausea, vomiting, sputum, neck pain. Denies any recent travel or sick contacts. ER course was notable for: (1)WBC 1.8, Hgb 10.5, Plt 127 (2)UA - +1 Leuk est, 1 WBC (3)CXR Recent Travel: denies any recent travel PAST MEDICAL HISTORY: Asthma COPD Anemia Anxiety HIV (2004) PAST SURGICAL HISTORY: Social History: Smokin-6 sticks per week for >40 years Alcohol:occasional EtOH drink Drugs: denies illicit drug use; Used to sniff cocaine - quit 10 years ago Family History: Allergies Penicillins Allergy (Unknown, Verified 05/18/18 15:24) Swelling MAYONAISE Adverse Reaction (Uncoded 05/18/18 15:24) HOME MEDICATIONS: Home Medications Medication Instructions Recorded Albuterol Sulfate Inhaler - 1 - 2 inh PO Q4H #1 inhaler 08/20/17 [Ventolin HFA Inhaler -] Abacavir Sulfate/Lamivudine 1 tablet PO DAILY #30 tablet 05/04/18 [Epzicom Tablet] Cholecalciferol (Vitamin D3) 1,000 unit PO DAILY #30 tab 05/04/18 [Vitamin D3 -] Darunavir Ethanolate [Prezista -] 800 mg PO DAILY #30 tablet 05/04/18 Ritonavir [Norvir -] 100 mg PO DAILY #30 tab 05/04/18 Tenofovir Disoproxil Fumarate 300 mg PO DAILY #30 tablet 05/04/18 [Viread -] Valacyclovir HCl [Valtrex] 500 mg PO BID #60 tablet 05/04/18 Mirtazapine [Remeron -] 15 mg PO DAILY #30 tablet 05/06/18 Olanzapine [Zyprexa] 2.5 mg PO HS #30 tablet 05/06/18 Zolpidem Tartrate [Ambien] 10 mg PO HS #30 tablet MDD 1 05/06/18 Atovaquone [Mepron -] 750 mg PO BID #210 ml 05/18/18 REVIEW OF SYSTEMS CONSTITUTIONAL: generalized weakness, loss of appetite Absent: fever, chills, diaphoresis, malaise, weight change HEENT: Absent: rhinorrhea, nasal congestion, throat pain, throat swelling, difficulty swallowing, mouth swelling, ear pain, eye pain, visual changes CARDIOVASCULAR: Absent: chest pain, syncope, palpitations, irregular heart rate, lightheadedness , peripheral edema RESPIRATORY: Absent: cough, shortness of breath, dyspnea with exertion, orthopnea, wheezing, stridor, hemoptysis GASTROINTESTINAL: diarrhea after eating Absent: abdominal pain, abdominal distension, nausea, vomiting,constipation, melena, hematochezia GENITOURINARY: Absent: dysuria, frequency, urgency, hesitancy, hematuria, flank pain, genital pain MUSCULOSKELETAL: Absent: myalgia, arthralgia, joint swelling, back pain, neck pain SKIN: Absent: rash, itching, pallor HEMATOLOGIC/IMMUNOLOGIC: Absent: easy bleeding, easy bruising, lymphadenopathy, frequent infections ENDOCRINE: Absent: unexplained weight gain, unexplained weight loss, heat intolerance, cold intolerance NEUROLOGIC: Absent: headache, focal weakness or paresthesias, dizziness, unsteady gait, seizure, mental status changes, bladder or bowel incontinence PSYCHIATRIC: Absent: anxiety, depression, suicidal or homicidal ideation, hallucinations. PHYSICAL EXAMINATION Vital Signs - 24 hr 05/18/18 05/18/18 15:24 19:04 Temperature 98.6 F Pulse Rate 91 H Pulse Rate [ 68 Radial] Respiratory 18 18 Rate Blood Pressure 95/57 Blood Pressure 96/66 [Right Arm] O2 Sat by Pulse 100 100 Oximetry (%) GENERAL: Awake, alert, and fully oriented, in no acute distress. HEAD: Normal with no signs of trauma. EYES: PERRLA, EOMI, sclera anicteric, conjunctiva clear. EARS, NOSE, THROAT: Ears normal, nares patent, oropharynx clear without exudates. NECK: Normal range of motion, supple without lymphadenopathy, JVD, or masses. LUNGS: Breath sounds equal, clear to auscultation bilaterally. HEART: Regular rate and rhythm, normal S1 and S2 without murmur, rub or gallop. ABDOMEN: Soft, nontender, not distended, normoactive bowel sounds. MUSCULOSKELETAL: Normal range of motion at all joints. No bony deformities or tenderness. No CVA tenderness. UPPER EXTREMITIES: 2+ pulses, warm, well-perfused. No cyanosis. No clubbing. No peripheral edema. LOWER EXTREMITIES: 2+ pulses, warm, well-perfused. No calf tenderness. No peripheral edema. NEUROLOGICAL: Cranial nerves II-XII intact. Normal speech. Normal gait. PSYCHIATRIC: Cooperative. Good eye contact. Appropriate mood and affect. SKIN: Warm, dry, normal turgor, no rashes or lesions noted, normal capillary refill. Laboratory Results - last 24 hr 05/18/18 05/18/18 05/18/18 16:20 16:20 16:20 WBC 1.8 L* RBC 3.97 Hgb 10.5 L Hct 32.4 MCV 81.6 MCH 26.4 MCHC 32.3 RDW 14.9 Plt Count 127 L MPV 9.3 Absolute Neuts (auto) 1.0 L Neutrophils % 53.5 D Neutrophils % (Manual) 52.0 Band Neutrophils % 4.0 Lymphocytes % 20.2 D Lymphocytes % (Manual) 30.0 D Monocytes % 25.2 H Monocytes % (Manual) 13 H D Eosinophils % 0.3 Eosinophils % (Manual) 0.0 Basophils % 0.8 Basophils % (Manual) 0.0 Nucleated RBC % 1 H Platelet Estimate Slt decrease Platelet Comment No clumping noted PT with INR 10.90 INR 0.96 Sodium 140 Potassium 4.3 Chloride 104 Carbon Dioxide 28 Anion Gap 8 BUN 14 Creatinine 1.1 H Creat Clearance w eGFR 50.33 Random Glucose 85 Calcium 8.0 L Total Bilirubin 0.3 AST 62 H ALT 52 Alkaline Phosphatase 102 Creatine Kinase Troponin I Total Protein 7.7 Albumin 3.3 L 05/18/18 16:20 WBC RBC Hgb Hct MCV MCH MCHC RDW Plt Count MPV Absolute Neuts (auto) Neutrophils % Neutrophils % (Manual) Band Neutrophils % Lymphocytes % Lymphocytes % (Manual) Monocytes % Monocytes % (Manual) Eosinophils % Eosinophils % (Manual) Basophils % Basophils % (Manual) Nucleated RBC % Platelet Estimate Platelet Comment PT with INR INR Sodium Potassium Chloride Carbon Dioxide Anion Gap BUN Creatinine Creat Clearance w eGFR Random Glucose Calcium Total Bilirubin AST ALT Alkaline Phosphatase Creatine Kinase 92 Troponin I < 0.02 Total Protein Albumin CBC, BMP 05/18/18 16:20 ASSESSMENT/PLAN: Patient is a 63 year old female with past medical history of Asthma, COPD, anemia, anxiety and HIV on HAART (since 2004, not taking medications since 4 months ago), presented with generalized weakness and anorexia that started about 3 weeks ago. #Anorexia -patient on Neutropenic diet and dietary nourishment (Ensure) -aggressive IVF hydration -Director Smb Sales consulted. #Dehydration -IV NS @ 100ml/hr #Neutropenia -Neutropenic diet -Neutropenic precautions -CXR and UA done to screen for infection -blood cultures pending -No focal signs of infection -Hold off on empiric antibiotics unless positive with infection. -Will trend CBC #Diarrhea -possibly refeeding syndrome -patient notes diarrhea comes after she eats. -Will order stool culture if with persistent diarrhea #HIV: CD4 (05/04) - 63 -resume HAART. -Dr. Ivey consulted. #Depression -Continue Olanzapine 2.5 mg and Mirtazapine 15mg -Ambien 10mg PRN for insomnia #COPD: not on acute exacerbation -Albuterol inhaler PRN #FEN -IV NS @100ml/hr -electrolytes wnl, routine bmp monitoring -Neutropenic diet; dietary nourishment (Ensure) #Prophylaxis -apply SCDs to both legs -will follow-up with CBC tomorrow #Disposition -admit to med-surg -social work consult. Will benefit from short term rehab. -PT evaluation Visit type - Emergency Visit Emergency Visit: Yes ED Registration Date: 05/18/18 Care time: The patient presented to the Emergency Department on the above date and was hospitalized for further evaluation of their emergent condition. - New Patient This patient is new to me today: Yes Date on this admission: 05/18/18 - Critical Care Critical Care patient: No Hospitalist Screening - Colonoscopy Questionnaire Colonoscopy Questionnaire: Colonoscopy Questionnaire - Patient: 50 - 75 years old and never had a screening colonoscopy: Unknown History of colon or rectal polyps, or CA: Unknown History of IBD, Crohn's disease or UC: Unknown History of abdominal radiation therapy as a child: Unknown - Relative: 1 with colon or rectal CA, or polyps at age 60 or younger: Unknown Colon or rectal CA diagnosed at age 45 or younger: Unknown Multiple relatives with colon or rectal CA: Unknown - Outcome: Screening Result: Negative Screen
[2018-05-18] MEDS: SODIUM CHLORIDE 1,000 ML IV SCH ×2 (19:51→20:59)
[2018-05-18] MEDS: ATOVAQUONE 750 MG/5 ML (UNIT-DOSE PACKAGING) PO SCH (21:00)
[2018-05-18] MEDS: RITONAVIR 100 MG TABLET PO SCH (21:02)
[2018-05-18] MEDS: DARUNAVIR ETHANOLATE 800 MG TAB PO SCH (21:02)
[2018-05-18] MEDS: valACYclovir HCL 500 MG TABLET (FP) PO SCH (21:03)
[2018-05-18] MEDS: OLANZapine 2.5 MG TABLET PO SCH (21:03)
[2018-05-18] MEDS: ABACAVIR SULFATE 300 MG TABLET PO SCH (21:03)
[2018-05-18] MEDS: lamiVUDine 150 MG TABLET PO SCH (21:04)
[2018-05-19] MEDS ORDERED: HEPARIN NA (PORCINE) 5,000 UNITS/ML 1ML VIAL SQ SCH (02:00)
[2018-05-19 07:38] LABS: BASO % 0.7 % (0-2.0); EOS % 0.5 % (0-4.5); HEMATOCRIT 29.7 % (32.4-45.2); HEMOGLOBIN 9.4 GM/dL (10.7-15.3); LYMPH % 35.5 % (8-40); MCH 26.1 pg (25.7-33.7); MCHC 31.7 g/dl (32.0-36.0); MEAN CELL VOLUME 82.2 fl (80-96); MEAN PLT VOLUME 8.8 fl (7.5-11.1); MONO % 36.1 % (3.8-10.2); NEUT % 27.2 % (42.8-82.8); PLATELET COUNT 107 K/MM3 (134-434); RBC 3.62 M/mm3 (3.60-5.2); RDW 14.6 % (11.6-15.6)
[2018-05-19 07:47] LABS: WHITE BLOOD COUNT 1.4 K/mm3 (4.0-10.0)
--- NOTE | 2018-05-19 08:30 | PN ---
Teaching Attending Note Name of Resident: Renetta Grady ATTENDING PHYSICIAN STATEMENT I saw and evaluated the patient. I reviewed the resident's note and discussed the case with the resident. I agree with the resident's findings and plan as documented with exceptions below. SUBJECTIVE: Patient seen and examined. eating better, no diarrhea inhouse. No new complaints. OBJECTIVE: Vital Signs Period Temp Pulse Resp BP Sys/Inman Pulse Ox Last 24 Hr 97.7 F-98.6 F 66-91 18-20 95-111/57-71 99-100 Intake & Output 05/16/18 05/17/18 05/18/18 05/19/18 23:59 23:59 23:59 23:59 Intake Total 240 800 Balance 240 800 Weight 144 lb 3.2 oz General: lying in bed in no acute distress chest: CTAB, no rales or wheezing Abdomen: soft, NT, ND, positive bowel sounds Extremities: no edema Active Medications Abacavir Sulfate (Ziagen -) 600 mg PO DAILY [facility] Last Admin: 05/18/18 21:03 Dose: 600 mg Albuterol Sulfate (Ventolin Hfa Inhaler -) 2 puff IH Q4H PRN PRN Reason: SHORTNESS OF BREATH Atovaquone (Mepron -) 750 mg PO BIDWM [facility] Last Admin: 05/18/18 21:00 Dose: 750 mg Cholecalciferol (Vitamin D3 -) 1,000 unit PO DAILY SHERI Darunavir (Prezista -) 800 mg PO DAILY SHERI Last Admin: 05/18/18 21:02 Dose: 800 mg Sodium Chloride (Normal Saline -) 1,000 mls @ 100 mls/hr IV ASDIR SHERI Last Admin: 05/18/18 20:59 Dose: 100 mls/hr Lamivudine (Epivir -) 300 mg PO DAILY SHERI Last Admin: 05/18/18 21:04 Dose: 300 mg Mirtazapine (Remeron -) 15 mg PO HS SHERI Olanzapine (Zyprexa -) 2.5 mg PO HS [facility] Last Admin: 05/18/18 21:03 Dose: 2.5 mg Ritonavir (Norvir -) 100 mg PO DAILY [facility] Last Admin: 05/18/18 21:02 Dose: 100 mg Tbo-Filgrastim (Granix -) 300 mcg SQ ONCE ONE Stop: 05/19/18 08:30 Valacyclovir HCl (Valtrex -) 500 mg PO BID SHERI Last Admin: 05/18/18 21:03 Dose: 500 mg Zolpidem Tartrate (Ambien -) 10 mg PO HS PRN PRN Reason: INSOMNIA CXr noted ASSESSMENT AND PLAN: 63 yof with PMHx of HIV on HAART (last Cd4 05/04 63), Anorexia nervosa, depression, COPD, prior admission with diarrhea/neutropenia (felt from acute illness), admitted with anorexia, dehydration, stopping all her meds and leucopenia with absolute neutropenia. -Anorexia -Dehydration -Leucopenia with absolute neutropenia, suspect from active HIV virus from stopping her HAART (similar prior history in the setting of non compliance to her HAART) -Diarrhea, suspect refeeding syndrome, similar prior history -HIV -Depression -COPD Plan: IVF, nutrition consult. Patient motivated, no active SI/HI. Continue home psych meds, HAART, atovaquone, valcyclovir. No clinical evidence of infection currently. Granix 300 mg subq x 1. Stool studies if recurrent diarrhea. Neutropenic precautions. Trend CBC. ID consult Dr. Ivey dVTPPX heparin PT eval Will likely benefit from short term rehab. Social work consult. Dispo in 24 hours if no new concerns and continues to improve. Plan discussed with patient in detail, all questions answered. Patient relays understanding and in agreement.
[2018-05-19] MEDS ORDERED: PT OWN MED DRAWER 7, Y5N ONE ×2 (08:33→11:47)
[2018-05-19 08:35] LABS: CHLORIDE 112 mmol/L (98-107); POTASSIUM 4.2 mmol/L (3.5-5.1); SODIUM 145 mmol/L (136-145)
[2018-05-19] MEDS ORDERED: TBO-FILGRASTIM 300 MCG/0.5 ML DISP.SYRINGE SQ ONE (08:45)
[2018-05-19 08:46] LABS: ALBUMIN 2.9 g/dl (3.4-5.0); ALK PHOS 89 U/L (45-117); ANION GAP 6 MMOL/L (8-16); BILIRUBIN,TOTAL 0.4 mg/dL (0.2-1.0); BLOOD UREA NITROGEN 11 mg/dL (7-18); CALCIUM 7.6 mg/dL (8.5-10.1); CO2 27 mmol/L (21-32); GLUCOSE,RANDOM 82 mg/dL (74-106); MAGNESIUM 2.4 mg/dL (1.8-2.4); SGOT/AST 49 U/L (15-37); SGPT/ALT 43 U/L (12-78); TOT PROT 6.8 g/dl (6.4-8.2)
[2018-05-19] MEDS: ATOVAQUONE 750 MG/5 ML (UNIT-DOSE PACKAGING) PO SCH ×2 (09:09→18:23)
[2018-05-19] MEDS: valACYclovir HCL 500 MG TABLET (FP) PO SCH ×2 (09:10→21:32)
[2018-05-19] MEDS: lamiVUDine 150 MG TABLET PO SCH (09:10)
[2018-05-19] MEDS: RITONAVIR 100 MG TABLET PO SCH (09:10)
[2018-05-19] MEDS: ABACAVIR SULFATE 300 MG TABLET PO SCH (09:10)
[2018-05-19] MEDS: DARUNAVIR ETHANOLATE 800 MG TAB PO SCH (09:11)
[2018-05-19] MEDS: CHOLECALCIFEROL (VITAMIN D3) 1,000 UNIT TABLET (FP) PO SCH (10:03)
--- NOTE | 2018-05-19 10:47 | PN ---
Progress Note (short form) - Note Progress Note: ID consult dictated sent from [facility] yesterday still dizzy-requiring assistance to ambulate not eating at all (nothing since admission) no fevers no diarrhea no thrush leukopenia noted- d/w hematology- will send flow cytometry today continue ivf requesting periactin for appetite stimulant add ensure AIDS- noncompliant with meds severe anorexia neutropenia- developing pancytopenia- suspect hiv related, consider heme evaluation check ldh f/u cultures continue IVF continue ensure Problem List - Problems (1) AIDS Code(s): B20 - HUMAN IMMUNODEFICIENCY VIRUS [HIV] DISEASE (2) Anorexia Code(s): R63.0 - ANOREXIA (3) Neutropenia Code(s): D70.9 - NEUTROPENIA, UNSPECIFIED
--- NOTE | 2018-05-19 11:49 | EKG ---
Test Reason : Blood Pressure : / mmHG Vent. Rate : 087 BPM Atrial Rate : 087 BPM P-R Int : 186 ms QRS Dur : 074 ms QT Int : 404 ms P-R-T Axes : 052 060 066 degrees QTc Int : 486 ms NORMAL SINUS RHYTHM NORMAL ECG WHEN COMPARED WITH ECG OF 15-DEC-2017 18:55, NO SIGNIFICANT CHANGE WAS FOUND Confirmed by DONALD PRO MD ([id number]) on 05/19/2018 11:49:42 AM Referred By: Confirmed By:DONALD PRO MD
--- NOTE | 2018-05-19 12:53 | PN ---
Physical Exam: SUBJECTIVE: Patient seen and examined at bedside this morning. She reports not eating all night and this morning. OBJECTIVE: Vital Signs Period Temp Pulse Resp BP Sys/Inman Pulse Ox Last 24 Hr 97.7 F-98.6 F 66-91 18-20 95-111/57-71 99-100 GENERAL: The patient is awake, alert, and fully oriented, lying in bed in no acute distress. HEAD: Normal with no signs of trauma. NECK: Trachea midline, full range of motion, supple. LUNGS: Breath sounds equal, clear to auscultation bilaterally. HEART: Regular rate and rhythm, S1, S2 without murmur, rub or gallop. ABDOMEN: Soft, nontender, nondistended, normoactive bowel sounds. EXTREMITIES: 2+ pulses, warm, well-perfused, no edema. NEUROLOGICAL: Cranial nerves II through XII grossly intact. Normal speech, gait not observed. PSYCH: Appropriate mood and affect. SKIN: Warm, dry, normal turgor, no rashes or lesions noted Laboratory Results - last 24 hr 05/18/18 05/18/18 05/18/18 16:20 16:20 16:20 WBC 1.8 L* RBC 3.97 Hgb 10.5 L Hct 32.4 MCV 81.6 MCH 26.4 MCHC 32.3 RDW 14.9 Plt Count 127 L MPV 9.3 Absolute Neuts (auto) 1.0 L Total Counted Neutrophils % 53.5 D Neutrophils % (Manual) 52.0 Band Neutrophils % 4.0 Lymphocytes % 20.2 D Lymphocytes % (Manual) 30.0 D Monocytes % 25.2 H Monocytes % (Manual) 13 H D Eosinophils % 0.3 Eosinophils % (Manual) 0.0 Basophils % 0.8 Basophils % (Manual) 0.0 Nucleated RBC % 1 H Platelet Estimate Slt decrease Platelet Comment No clumping noted PT with INR 10.90 INR 0.96 Sodium 140 Potassium 4.3 Chloride 104 Carbon Dioxide 28 Anion Gap 8 BUN 14 Creatinine 1.1 H Creat Clearance w eGFR 50.33 Random Glucose 85 Calcium 8.0 L Phosphorus Magnesium Total Bilirubin 0.3 AST 62 H ALT 52 Alkaline Phosphatase 102 Creatine Kinase Troponin I Total Protein 7.7 Albumin 3.3 L Urine Color Urine Appearance Urine pH Ur Specific Cylinder Urine Protein Urine Glucose (UA) Urine Ketones Urine Blood Urine Nitrite Urine Bilirubin Urine Urobilinogen Ur Leukocyte Esterase Urine WBC (Auto) Urine RBC (Auto) Ur Epithelial Cells Hyaline Casts Urine Mucus 05/18/18 05/18/18 05/18/18 16:20 18:55 18:55 WBC RBC Hgb Hct MCV MCH MCHC RDW Plt Count MPV Absolute Neuts (auto) Total Counted Neutrophils % Neutrophils % (Manual) Band Neutrophils % Lymphocytes % Lymphocytes % (Manual) Monocytes % Monocytes % (Manual) Eosinophils % Eosinophils % (Manual) Basophils % Basophils % (Manual) Nucleated RBC % Platelet Estimate Platelet Comment PT with INR INR Sodium Potassium Chloride Carbon Dioxide Anion Gap BUN Creatinine Creat Clearance w eGFR Random Glucose Calcium Phosphorus Magnesium 2.5 H Total Bilirubin AST ALT Alkaline Phosphatase Creatine Kinase 92 Troponin I < 0.02 Total Protein Albumin Urine Color Ltyellow Urine Appearance Clear Urine pH 6.0 Ur Specific Cylinder 1.009 Urine Protein Negative Urine Glucose (UA) Negative Urine Ketones Negative Urine Blood Negative Urine Nitrite Negative Urine Bilirubin Negative Urine Urobilinogen Negative Ur Leukocyte Esterase 1+ H D Urine WBC (Auto) 1 Urine RBC (Auto) None Ur Epithelial Cells Rare Hyaline Casts 1 Urine Mucus Rare 05/18/18 05/19/18 05/19/18 18:55 07:00 07:00 WBC 1.4 L* RBC 3.62 Hgb 9.4 L Hct 29.7 L MCV 82.2 MCH 26.1 MCHC 31.7 L RDW 14.6 Plt Count 107 L MPV 8.8 Absolute Neuts (auto) 0.4 L Total Counted 100 Neutrophils % 27.2 L D Neutrophils % (Manual) 30.0 L Band Neutrophils % 1.0 Lymphocytes % 35.5 D Lymphocytes % (Manual) 40.0 D Monocytes % 36.1 H Monocytes % (Manual) 25 H D Eosinophils % 0.5 Eosinophils % (Manual) 1.0 D Basophils % 0.7 Basophils % (Manual) Nucleated RBC % 0 Platelet Estimate Platelet Comment PT with INR INR Sodium 145 Potassium 4.2 Chloride 112 H Carbon Dioxide 27 Anion Gap 6 L BUN 11 Creatinine 1.0 Creat Clearance w eGFR 56.18 Random Glucose 82 Calcium 7.6 L Phosphorus 2.9 4.0 Magnesium 2.4 Total Bilirubin 0.4 AST 49 H ALT 43 Alkaline Phosphatase 89 D Creatine Kinase Troponin I Total Protein 6.8 Albumin 2.9 L Urine Color Urine Appearance Urine pH Ur Specific Cylinder Urine Protein Urine Glucose (UA) Urine Ketones Urine Blood Urine Nitrite Urine Bilirubin Urine Urobilinogen Ur Leukocyte Esterase Urine WBC (Auto) Urine RBC (Auto) Ur Epithelial Cells Hyaline Casts Urine Mucus CBC, BMP 05/19/18 07:00 05/19/18 07:00 Active Medications Generic Name Dose Route Start Last Admin Trade Name Freq PRN Reason Stop Dose Admin Abacavir Sulfate 600 mg 05/18/18 20:00 05/19/18 09:10 Ziagen - PO 600 mg DAILY SHERI Administration Albuterol Sulfate 2 puff 05/18/18 18:42 Ventolin Hfa Inhaler - IH Q4H PRN SHORTNESS OF BREATH Atovaquone 750 mg 05/18/18 19:00 05/19/18 09:09 Mepron - PO 750 mg BIDWM SHERI Administration Cholecalciferol 1,000 unit 05/19/18 10:00 05/19/18 10:03 Vitamin D3 - PO 1,000 unit DAILY SHERI Administration Darunavir 800 mg 05/18/18 20:00 05/19/18 09:11 Prezista - PO 800 mg DAILY SHERI Administration Sodium Chloride 1,000 mls @ 100 mls/hr 05/18/18 18:52 05/18/18 20:59 Normal Saline - IV 100 mls/hr ASDIR SHERI Administration Lamivudine 300 mg 05/18/18 20:00 05/19/18 09:10 Epivir - PO 300 mg DAILY SHERI Administration Mirtazapine 15 mg 05/19/18 22:00 Remeron - PO HS SHERI Olanzapine 2.5 mg 05/18/18 22:00 05/18/18 21:03 Zyprexa - PO 2.5 mg HS SHERI Administration Ritonavir 100 mg 05/18/18 20:00 05/19/18 09:10 Norvir - PO 100 mg DAILY SHERI Administration Valacyclovir HCl 500 mg 05/18/18 22:00 05/19/18 09:10 Valtrex - PO 500 mg BID SHERI Administration Zolpidem Tartrate 10 mg 05/18/18 22:00 Ambien - PO HS PRN INSOMNIA ASSESSMENT/PLAN: Patient is a 63 year old female with past medical history of Asthma, COPD, anemia, anxiety and HIV on HAART (since 2004, not taking medications since 4 months ago), presented with generalized weakness and anorexia that started about 3 weeks ago. #Anorexia -patient reported not eating all night. -Neutropenic diet and dietary nourishment (Ensure) -aggressive IVF hydration -Potash Flaker consulted. #Dehydration -IV NS @ 100ml/hr #Neutropenia -WBC today 1.4 with ANC of 0.4 -Tbo-Filgrastim (Granix) 300mcg given once. Will monitor CBC. -Neutropenic diet -Neutropenic precautions -CXR and UA done to screen for infection - normal -blood cultures pending -urine and stool cultures pending -No focal signs of infection -Hold off on empiric antibiotics unless positive with infection. -Will trend CBC #Diarrhea -possibly refeeding syndrome -patient notes diarrhea comes after she eats. -Stool culture pending. #HIV: CD4 (05/04) - 64 -resume HAART. -Dr. Ivey consulted. Recommendations appreciated: -Pancytopenia - hematology consulted. Flow cytometry will be sent. -Periactin for appetite stimulation -LDH #Depression -Continue Olanzapine 2.5 mg and Mirtazapine 15mg -Ambien 10mg PRN for insomnia #COPD: not on acute exacerbation -Albuterol inhaler PRN #FEN -IV NS @100ml/hr -electrolytes wnl, routine bmp monitoring -Neutropenic diet; dietary nourishment (Ensure) #Prophylaxis -apply SCDs to both legs -will follow-up with CBC tomorrow #Disposition -admit to med-surg -social work consult. Will benefit from short term rehab. -PT evaluation: patient able to walk 45 feet. Limited by weakness and instability. -PT recommended will be discharged to SNF for further rehab, patient agrees. Visit type - Emergency Visit Emergency Visit: Yes ED Registration Date: 05/18/18 Care time: The patient presented to the Emergency Department on the above date and was hospitalized for further evaluation of their emergent condition. - New Patient This patient is new to me today: Yes Date on this admission: 05/19/18 - Critical Care Critical Care patient: No
[2018-05-19] MEDS: SODIUM CHLORIDE 1,000 ML IV SCH (20:04)
--- NOTE | 2018-05-19 20:18 | CONS ---
DATE OF CONSULTATION: DATE OF DICTATION: 05/19/2018 REQUESTED BY: Hospitalist Service This is a 63-year-old woman who I follow at the [facility]. She has a history of anorexia and HIV disease. She was seen in the clinic yesterday. She came in two weeks ago with complaints of weakness and fatigue. She had been off her medications; she was not eating. She had no vomiting, no abdominal pain. She had intermittent diarrhea when she ate. We made a plan for her to resume her medications. Her labs were checked. She returned yesterday complaining of chronic fatigue and dizziness and overall did not feel well. She had not been eating at all. She was admitted to the hospital for further evaluation. She has diarrhea only when she eats. Usually, after three or four days of not eating, it occurs. It is not bloody. She complains of chronic dizziness and overall fatigue. PAST MEDICAL HISTORY: Notable for asthma, COPD, anemia, anxiety, HIV, including AIDS. Her T-cells were checked at the end of April and were in the 60s. She also has a past history of neuropathy. She is followed by Psychiatry intermittently when she comes to clinic. Her followup has been quite intermittent recently. PAST SURGICAL HISTORY: She has had a workup for abnormal Pap smears and I think she has had a previous D and C. She has had a hysteroscopy and a LEEP procedure with cone biopsy. She is followed by a mc kay machine operator for this. She has had a tonsillectomy as well as section. FAMILY HISTORY: Notable for prostate cancer in her father, who is . Mother with dementia. ALLERGIES: IODINE. CURRENT OUTPATIENT MEDICATIONS: - prezista,norvir viread, epzicom Valtrex. She takes Neurontin p.r.n. She was started on Remeron and Zyprexa by Psychiatry. SOCIAL HISTORY: She sometimes smokes. No substance use. REVIEW OF SYSTEMS: As per HPI. She has no dysuria, no cough, no burning on urination. She has intermittent diarrhea that is non-bloody. It happens only when she eats. PHYSICAL EXAMINATION: GENERAL: She is awake and alert. She is a thin woman in no acute distress. VITALS: She is afebrile. Temperature is 97.8, pulse is 76, blood pressure 100/ 67, respiratory rate 18. Weight is 65 kilos. HEENT: Normocephalic. Eyes are anicteric. She has no thrush. NECK: Supple. LUNGS: Clear to auscultation. HEART: Regular rate and rhythm. ABDOMEN: Soft, nontender. EXTREMITIES: No edema. LABS: White count of 1.4, hemoglobin of 9.4, platelets of 107,000. Chemistries : BUN and creatinine 11 and 1.0, respectively. LFTs are notable for an AST of 49. Most recent T-cells are 63 with a viral load of 649,360. Blood cultures and urine cultures have been sent and are pending. IN SUMMARY: This is a 63-year-old woman with AIDS and severe anorexia, admitted for dehydration. She has leukopenia and is starting to have some elements of pancytopenia, I suspect from her HIV illness. I discussed her case with Hematology. We will send flow cytometry today and continue IVF. She is requesting Periactin for appetite stimulant. We will add Ensure. She has a prior history of cryptosporidium, so we will obtain stools as well. The patient has AIDS with severe anorexia, noncompliant with medications, and neutropenia. We will check an LDH as well. Continue IV fluids. GERDA NEGRO M.D. [id number]
[2018-05-19] MEDS: MIRTAZAPINE 15 MG TABLET (FP) PO SCH (21:32)
[2018-05-19] MEDS: OLANZapine 2.5 MG TABLET PO SCH (21:32)
[2018-05-19] MEDS: ZOLPIDEM TARTRATE 5 MG TABLET PO PRN (22:40)
[2018-05-20] MEDS: SODIUM CHLORIDE 1,000 ML IV SCH (06:31)
--- NOTE | 2018-05-20 07:40 | PN ---
Teaching Attending Note Name of Resident: Renetta Grady ATTENDING PHYSICIAN STATEMENT I saw and evaluated the patient. I reviewed the resident's note and discussed the case with the resident. I agree with the resident's findings and plan as documented with exceptions below. SUBJECTIVE: patient seen and examined, no diarrhea. Tolerating PO. no new complaints. OBJECTIVE: Vital Signs Period Temp Pulse Resp BP Sys/Inman Pulse Ox Last 24 Hr 97.6 F-99.0 F 47-76 12-20 100-149/57-76 Intake & Output 05/17/18 05/18/18 05/19/18 05/20/18 23:59 23:59 23:59 23:59 Intake Total 240 1880 1200 Output Total 750 Balance 240 1130 1200 Weight 144 lb 3.2 oz 144 lb General: sitting in bed in no acute distress Abdomen: soft, NT, ND, positive bowel sounds Active Medications Abacavir Sulfate (Ziagen -) 600 mg PO DAILY [facility] Last Admin: 05/19/18 09:10 Dose: 600 mg Albuterol Sulfate (Ventolin Hfa Inhaler -) 2 puff IH Q4H PRN PRN Reason: SHORTNESS OF BREATH Atovaquone (Mepron -) 750 mg PO BIDWM [facility] Last Admin: 05/19/18 18:23 Dose: 750 mg Cholecalciferol (Vitamin D3 -) 1,000 unit PO DAILY [facility] Last Admin: 05/19/18 10:03 Dose: 1,000 unit Darunavir (Prezista -) 800 mg PO DAILY [facility] Last Admin: 05/19/18 09:11 Dose: 800 mg Heparin Sodium (Porcine) (Heparin -) 5,000 unit SQ TID SHERI Sodium Chloride (Normal Saline -) 1,000 mls @ 100 mls/hr IV ASDIR SHERI Last Admin: 05/20/18 06:31 Dose: 100 mls/hr Lamivudine (Epivir -) 300 mg PO DAILY [facility] Last Admin: 05/19/18 09:10 Dose: 300 mg Mirtazapine (Remeron -) 15 mg PO HS [facility] Last Admin: 05/19/18 21:32 Dose: 15 mg Olanzapine (Zyprexa -) 2.5 mg PO HS [facility] Last Admin: 05/19/18 21:32 Dose: 2.5 mg Ritonavir (Norvir -) 100 mg PO DAILY [facility] Last Admin: 05/19/18 09:10 Dose: 100 mg Valacyclovir HCl (Valtrex -) 500 mg PO BID [facility] Last Admin: 05/19/18 21:32 Dose: 500 mg Zolpidem Tartrate (Ambien -) 10 mg PO HS PRN PRN Reason: INSOMNIA Last Admin: 05/19/18 22:40 Dose: 10 mg Microbiology 05/18/18 21:30 Blood - Peripheral Venous Blood Culture - Preliminary NO GROWTH OBTAINED AFTER 24 HOURS, INCUBATION TO CONTINUE FOR 4 DAYS. 05/18/18 21:00 Blood - Peripheral Venous Blood Culture - Preliminary NO GROWTH OBTAINED AFTER 24 HOURS, INCUBATION TO CONTINUE FOR 4 DAYS. Laboratory Results - last 24 hr 05/19/18 05/20/18 05/20/18 07:00 06:20 06:20 WBC 1.6 L* RBC 4.03 Hgb 10.5 L Hct 33.2 MCV 82.3 MCH 26.0 MCHC 31.5 L RDW 14.5 Plt Count 121 L MPV 8.1 Absolute Neuts (auto) 0.6 L Total Counted 100 Neutrophils % 37.1 L D Neutrophils % (Manual) 30.0 L Band Neutrophils % 1.0 Lymphocytes % 34.8 Lymphocytes % (Manual) 40.0 D Monocytes % 27.1 H Monocytes % (Manual) 25 H D Eosinophils % 0.5 Eosinophils % (Manual) 1.0 D Basophils % 0.5 Nucleated RBC % 0 Sodium 144 Potassium 4.5 Chloride 111 H Carbon Dioxide 28 Anion Gap 5 L BUN 16 Creatinine 0.9 Creat Clearance w eGFR > 60 Random Glucose 91 Calcium 8.1 L Phosphorus 3.9 Magnesium 2.1 Total Bilirubin 0.2 AST 44 H ALT 42 Alkaline Phosphatase 111 D LD Total 239 Total Protein 7.2 Albumin 3.1 L ASSESSMENT AND PLAN: 63 yof with PMHx of HIV on HAART (last Cd4 05/04 63), Anorexia nervosa, depression, COPD, prior admission with diarrhea/neutropenia (felt from acute illness), admitted with anorexia, dehydration, stopping all her meds and leucopenia with absolute neutropenia. -Anorexia -Dehydration -Leucopenia with absolute neutropenia, suspect from active HIV virus from stopping her HAART (similar prior history in the setting of non compliance to her HAART) -Diarrhea, suspect refeeding syndrome, similar prior history -HIV -Depression -COPD Plan: Tolerating diet, Continue ensure. D/c IVF. CBC noted, s/p Granix 300 mcg on 05/18, trend for now. Neutropenic precautions. Patient motivated, no active SI/HI. Continue home psych meds, HAART, atovaquone, valcyclovir. No clinical evidence of infection currently. Stool studies if recurrent diarrhea. ID consult Dr. Ivey appreciated. dVTPPX heparin PT eval Will likely benefit from short term rehab. Social work consult. Dispo in 24 hours if no new concerns and blood counts continue to improve. Plan discussed with patient in detail, all questions answered. Patient relays understanding and in agreement.
[2018-05-20 07:57] LABS: BASO % 0.5 % (0-2.0); EOS % 0.5 % (0-4.5); HEMATOCRIT 33.2 % (32.4-45.2); HEMOGLOBIN 10.5 GM/dL (10.7-15.3); LYMPH % 34.8 % (8-40); MCHC 31.5 g/dl (32.0-36.0); MEAN CELL VOLUME 82.3 fl (80-96); MEAN PLT VOLUME 8.1 fl (7.5-11.1); MONO % 27.1 % (3.8-10.2); NEUT % 37.1 % (42.8-82.8); PLATELET COUNT 121 K/MM3 (134-434); RBC 4.03 M/mm3 (3.60-5.2); RDW 14.5 % (11.6-15.6)
[2018-05-20 08:03] LABS: WHITE BLOOD COUNT 1.6 K/mm3 (4.0-10.0)
[2018-05-20] MEDS ORDERED: PT OWN MED DRAWER 7, Y5N ONE ×3 (09:06→20:30)
[2018-05-20 09:31] LABS: ALBUMIN 3.1 g/dl (3.4-5.0); ALK PHOS 111 U/L (45-117); ANION GAP 5 MMOL/L (8-16); BILIRUBIN,TOTAL 0.2 mg/dL (0.2-1.0); BLOOD UREA NITROGEN 16 mg/dL (7-18); CALCIUM 8.1 mg/dL (8.5-10.1); CHLORIDE 111 mmol/L (98-107); CO2 28 mmol/L (21-32); CREATININE 0.9 mg/dL (0.55-1.02); GLUCOSE,RANDOM 91 mg/dL (74-106); LDH 239 U/L (84-246); MAGNESIUM 2.1 mg/dL (1.8-2.4); PHOSPHOROUS 3.9 mg/dL (2.5-4.9); POTASSIUM 4.5 mmol/L (3.5-5.1); SGOT/AST 44 U/L (15-37); SGPT/ALT 42 U/L (13-61); SODIUM 144 mmol/L (136-145); TOT PROT 7.2 g/dl (6.4-8.2)
[2018-05-20] MEDS: RITONAVIR 100 MG TABLET PO SCH (09:31)
[2018-05-20] MEDS: lamiVUDine 150 MG TABLET PO SCH (09:31)
[2018-05-20] MEDS: valACYclovir HCL 500 MG TABLET (FP) PO SCH ×2 (09:31→20:59)
[2018-05-20] MEDS: ABACAVIR SULFATE 300 MG TABLET PO SCH (09:31)
[2018-05-20] MEDS: ATOVAQUONE 750 MG/5 ML (UNIT-DOSE PACKAGING) PO SCH ×2 (09:31→18:20)
[2018-05-20] MEDS: CHOLECALCIFEROL (VITAMIN D3) 1,000 UNIT TABLET (FP) PO SCH (09:32)
[2018-05-20] MEDS: DARUNAVIR ETHANOLATE 800 MG TAB PO SCH (09:32)
[2018-05-20 12:19] LABS: ANISOCYTOSIS 0; MACROCYTOSIS 0; PLATELET ESTIMATE DECREASED
--- NOTE | 2018-05-20 13:53 | PN ---
Physical Exam: SUBJECTIVE: Patient seen and examined at bedside this morning. No acute events overnight. She has no new complaints. OBJECTIVE: Vital Signs Period Temp Pulse Resp BP Sys/Inman Pulse Ox Last 24 Hr 97.6 F-99.0 F 47-98 12-20 100-149/57-81 GENERAL: The patient is awake, alert, and fully oriented, lying in bed in no acute distress. HEAD: Normal with no signs of trauma. NECK: Trachea midline, full range of motion, supple. LUNGS: Breath sounds equal, clear to auscultation bilaterally. HEART: Regular rate and rhythm, S1, S2 without murmur, rub or gallop. ABDOMEN: Soft, nontender, nondistended, normoactive bowel sounds. EXTREMITIES: 2+ pulses, warm, well-perfused, no edema. NEUROLOGICAL: Cranial nerves II through XII grossly intact. Normal speech, gait not observed. PSYCH: Appropriate mood and affect. SKIN: Warm, dry, normal turgor, no rashes or lesions noted Laboratory Results - last 24 hr 05/20/18 05/20/18 06:20 06:20 WBC 1.6 L* RBC 4.03 Hgb 10.5 L Hct 33.2 MCV 82.3 MCH 26.0 MCHC 31.5 L RDW 14.5 Plt Count 121 L MPV 8.1 Absolute Neuts (auto) 0.6 L Neutrophils % 37.1 L D Neutrophils % (Manual) 42.7 L Band Neutrophils % 0.0 Lymphocytes % 34.8 Lymphocytes % (Manual) 34.1 Monocytes % 27.1 H Monocytes % (Manual) 22 H Eosinophils % 0.5 Eosinophils % (Manual) 0.0 D Basophils % 0.5 Basophils % (Manual) 0.0 Myelocytes % (Man) 0 Promyelocytes % (Man) 0 Blast Cells % (Manual) 0 Nucleated RBC % 0 Metamyelocytes 0 D Hypochromia 0 Platelet Estimate Decreased Polychromasia 0 Poikilocytosis 0 Anisocytosis 0 Microcytosis 0 Macrocytosis 0 Sodium 144 Potassium 4.5 Chloride 111 H Carbon Dioxide 28 Anion Gap 5 L BUN 16 Creatinine 0.9 Creat Clearance w eGFR > 60 Random Glucose 91 Calcium 8.1 L Phosphorus 3.9 Magnesium 2.1 Total Bilirubin 0.2 AST 44 H ALT 42 Alkaline Phosphatase 111 D LD Total 239 Total Protein 7.2 Albumin 3.1 L Active Medications Generic Name Dose Route Start Last Admin Trade Name Freq PRN Reason Stop Dose Admin Abacavir Sulfate 600 mg 05/18/18 20:00 05/20/18 09:31 Ziagen - PO 600 mg DAILY [facility]ERI Administration Albuterol Sulfate 2 puff 05/18/18 18:42 Ventolin Hfa Inhaler - IH Q4H PRN SHORTNESS OF BREATH Atovaquone 750 mg 05/18/18 19:00 05/20/18 09:31 Mepron - PO 750 mg BIDWM SHERI Administration Cholecalciferol 1,000 unit 05/19/18 10:00 05/20/18 09:32 Vitamin D3 - PO 1,000 unit DAILY [facility] Administration Darunavir 800 mg 05/18/18 20:00 05/20/18 09:32 Prezista - PO 800 mg DAILY [facility] Administration Lamivudine 300 mg 05/18/18 20:00 05/20/18 09:31 Epivir - PO 300 mg DAILY [facility] Administration Mirtazapine 15 mg 05/19/18 22:00 05/19/18 21:32 Remeron - PO 15 mg HS SHERI Administration Olanzapine 2.5 mg 05/18/18 22:00 05/19/18 21:32 Zyprexa - PO 2.5 mg HS SHERI Administration Ritonavir 100 mg 05/18/18 20:00 05/20/18 09:31 Norvir - PO 100 mg DAILY [facility] Administration Valacyclovir HCl 500 mg 05/18/18 22:00 05/20/18 09:31 Valtrex - PO 500 mg BID SHERI Administration Zolpidem Tartrate 10 mg 05/18/18 22:00 05/19/18 22:40 Ambien - PO 10 mg HS PRN Administration INSOMNIA ASSESSMENT/PLAN: Patient is a 63 year old female with past medical history of Asthma, COPD, anemia, anxiety and HIV on HAART (since 2004, not taking medications since 4 months ago), presented with generalized weakness and anorexia that started about 3 weeks ago. #Anorexia -patient reported she finished her meals yesterday. -Neutropenic diet and dietary nourishment (Ensure) -[employer] consulted. #Dehydration -IVF discontinued -Encourage increased oral fluid intake. #Neutropenia -WBC today 1.6 from 1.4 yesterday with ANC of 0.6 -Tbo-Filgrastim (Granix) 300mcg given once yesterday. Will monitor CBC. -Neutropenic diet -Neutropenic precautions -CXR and UA done to screen for infection - normal -blood cultures pending -urine and stool cultures pending -No focal signs of infection -Hold off on empiric antibiotics unless positive with infection. -Will trend CBC #Diarrhea -possibly refeeding syndrome -patient notes diarrhea comes after she eats. -She denies diarrhes since admission. -Stool culture pending. #HIV: CD4 (05/04) - 64 -resume HAART. -Dr. Ivey consulted. Recommendations appreciated: -Pancytopenia - hematology consulted. Flow cytometry will be sent. -Periactin for appetite stimulation -LDH #Depression -Continue Olanzapine 2.5 mg and Mirtazapine 15mg -Ambien 10mg PRN for insomnia #COPD: not on acute exacerbation -Albuterol inhaler PRN #FEN -Not on any standing fluids. -electrolytes wnl, routine bmp monitoring -Neutropenic diet; dietary nourishment (Ensure) #Prophylaxis -Heparin 5000 units sq tid #Disposition -admit to med-surg -social work consult. Will benefit from short term rehab. -PT evaluation: patient able to walk 45 feet. Limited by weakness and instability. -PT recommended will be discharged to SNF for further rehab, patient agrees. Visit type - Emergency Visit Emergency Visit: Yes ED Registration Date: 05/18/18 Care time: The patient presented to the Emergency Department on the above date and was hospitalized for further evaluation of their emergent condition. - New Patient This patient is new to me today: Yes Date on this admission: 05/20/18 - Critical Care Critical Care patient: No
[2018-05-20] MEDS ORDERED: HEPARIN NA (PORCINE) 5,000 UNITS/ML 1ML VIAL SQ SCH (14:00)
--- NOTE | 2018-05-20 15:24 | PN ---
Progress Note (short form) - Note Progress Note: feels improved starting to eat no diarrhea Vital Signs Period Temp Pulse Resp BP Sys/Inman Pulse Ox Last 24 Hr 97.6 F-99.0 F 47-98 12-20 108-149/65-81 8 cor-rrr lungs clear abd soft,nt ext no edema CBC, BMP 05/20/18 06:20 05/20/18 06:20 Microbiology 05/18/18 18:55 Urine - Urine Clean Catch Urine Culture - Final Contaminated: Please Repeat 05/18/18 21:30 Blood - Peripheral Venous Blood Culture - Preliminary NO GROWTH OBTAINED AFTER 24 HOURS, INCUBATION TO CONTINUE FOR 4 DAYS. 05/18/18 21:00 Blood - Peripheral Venous Blood Culture - Preliminary NO GROWTH OBTAINED AFTER 24 HOURS, INCUBATION TO CONTINUE FOR 4 DAYS. AIDS- noncompliant with meds severe anorexia neutropenia- suspect hiv related, flow cytometry sent continue art continue ensure consider rehab Problem List - Problems (1) AIDS Code(s): B20 - HUMAN IMMUNODEFICIENCY VIRUS [HIV] DISEASE (2) Anorexia Code(s): R63.0 - ANOREXIA (3) Neutropenia Code(s): D70.9 - NEUTROPENIA, UNSPECIFIED
[2018-05-20] MEDS: HEPARIN NA (PORCINE) 5,000 UNITS/ML 1ML VIAL SQ SCH ×2 (15:26→20:59)
[2018-05-20] MEDS: OLANZapine 2.5 MG TABLET PO SCH (20:59)
[2018-05-20] MEDS: MIRTAZAPINE 15 MG TABLET (FP) PO SCH (20:59)
[2018-05-20] MEDS: ZOLPIDEM TARTRATE 5 MG TABLET PO PRN (21:06)
[2018-05-21] MEDS: HEPARIN NA (PORCINE) 5,000 UNITS/ML 1ML VIAL SQ SCH ×2 (07:46→13:21)
[2018-05-21 08:40] LABS: HEMATOCRIT 34.7 % (32.4-45.2); MCHC 31.7 g/dl (32.0-36.0); MEAN CELL VOLUME 82.1 fl (80-96); MEAN PLT VOLUME 9.6 fl (7.5-11.1); PLATELET COUNT 142 K/MM3 (134-434); RBC 4.22 M/mm3 (3.60-5.2); RDW 14.5 % (11.6-15.6)
[2018-05-21] MEDS ORDERED: PT OWN MED DRAWER 7, Y5N ONE ×2 (08:42→10:36)
[2018-05-21] MEDS: ATOVAQUONE 750 MG/5 ML (UNIT-DOSE PACKAGING) PO SCH (08:49)
[2018-05-21 08:59] LABS: WHITE BLOOD COUNT 1.9 K/mm3 (4.0-10.0)
--- NOTE | 2018-05-21 09:25 | PN ---
Progress Note (short form) - Note Progress Note: feels improved starting to eat no diarrhea Vital Signs Period Temp Pulse Resp BP Sys/Inman Pulse Ox Last 24 Hr 97.4 F-99.0 F 70-98 16-18 80-120/44-81 cor-rrr lungs clear abd soft,nt ext no edema CBC, BMP 05/21/18 08:00 Microbiology 05/18/18 21:30 Blood - Peripheral Venous Blood Culture - Preliminary NO GROWTH OBTAINED AFTER 48 HOURS, INCUBATION TO CONTINUE FOR 3 DAYS. 05/18/18 21:00 Blood - Peripheral Venous Blood Culture - Preliminary NO GROWTH OBTAINED AFTER 48 HOURS, INCUBATION TO CONTINUE FOR 3 DAYS. 05/18/18 18:55 Urine - Urine Clean Catch Urine Culture - Final Contaminated: Please Repeat a/p AIDS- noncompliant with meds severe anorexia neutropenia- suspect hiv related, flow cytometry sent continue art continue ensure consider rehab no objection to transfer to rehab she can f/u at [facility] with me after discharge from the [facility] Problem List - Problems (1) AIDS Code(s): B20 - HUMAN IMMUNODEFICIENCY VIRUS [HIV] DISEASE (2) Anorexia Code(s): R63.0 - ANOREXIA (3) Neutropenia Code(s): D70.9 - NEUTROPENIA, UNSPECIFIED
[2018-05-21] MEDS: ABACAVIR SULFATE 300 MG TABLET PO SCH (10:11)
[2018-05-21] MEDS: CHOLECALCIFEROL (VITAMIN D3) 1,000 UNIT TABLET (FP) PO SCH (10:11)
[2018-05-21] MEDS: lamiVUDine 150 MG TABLET PO SCH (10:11)
[2018-05-21] MEDS: valACYclovir HCL 500 MG TABLET (FP) PO SCH (10:11)
[2018-05-21] MEDS: DARUNAVIR ETHANOLATE 800 MG TAB PO SCH (10:12)
[2018-05-21] MEDS: RITONAVIR 100 MG TABLET PO SCH (10:12)
[2018-05-21 10:21] LABS: ALBUMIN 3.4 g/dl (3.4-5.0); ALK PHOS 111 U/L (45-117); ANION GAP 7 MMOL/L (8-16); BILIRUBIN,TOTAL 0.4 mg/dL (0.2-1.0); BLOOD UREA NITROGEN 21 mg/dL (7-18); CALCIUM 8.6 mg/dL (8.5-10.1); CHLORIDE 106 mmol/L (98-107); CO2 30 mmol/L (21-32); CREATININE 1.1 mg/dL (0.55-1.3); GLUCOSE,RANDOM 86 mg/dL (74-106); MAGNESIUM 2.4 mg/dL (1.8-2.4); POTASSIUM 4.6 mmol/L (3.5-5.1); SGOT/AST 41 U/L (15-37); SGPT/ALT 42 U/L (13-61); SODIUM 143 mmol/L (136-145)
[2018-05-21 11:04] LABS: ANISOCYTOSIS 0; MACROCYTOSIS 0; PLATELET ESTIMATE DECREASED
--- NOTE | 2018-05-21 11:37 | DS ---
Physical Exam: SUBJECTIVE: Patient seen and examined at bedside this morning. No acute events overnight. Patient reports that she is feeling better and has been able to eat. OBJECTIVE: Vital Signs Period Temp Pulse Resp BP Sys/Inman Pulse Ox Last 24 Hr 97.4 F-99.0 F 70-84 18-18 80-118/44-70 PHYSICAL EXAM GENERAL: The patient is awake, alert, and fully oriented, in no acute distress. HEAD: Normal with no signs of trauma. EYES: PERRL, extraocular movements intact, sclera anicteric, conjunctiva clear. ENT: Ears normal, nares patent, oropharynx clear without exudates, moist mucous membranes. NECK: Trachea midline, full range of motion, supple. LUNGS: Breath sounds equal, clear to auscultation bilaterally, no wheezes, no crackles, no accessory muscle use. HEART: Regular rate and rhythm, S1, S2 without murmur, rub or gallop. ABDOMEN: Soft, nontender, nondistended, normoactive bowel sounds, no guarding, no rebound, no hepatosplenomegaly, no masses. EXTREMITIES: 2+ pulses, warm, well-perfused, no edema. NEUROLOGICAL: Cranial nerves II through XII grossly intact. Normal speech, gait not observed. PSYCH: Normal mood, normal affect. SKIN: Warm, dry, normal turgor, no rashes or lesions noted. LABS Laboratory Results - last 24 hr 05/20/18 05/21/18 05/21/18 06:20 08:00 08:00 WBC 1.9 L* RBC 4.22 Hgb 11.0 Hct 34.7 MCV 82.1 MCH 26.0 MCHC 31.7 L RDW 14.5 Plt Count 142 MPV 9.6 D Absolute Neuts (auto) 0.7 L Neutrophils % No Result Required. Neutrophils % (Manual) 42.7 L 48.3 Band Neutrophils % 0.0 0.0 Lymphocytes % No Result Required. Lymphocytes % (Manual) 34.1 34.5 Monocytes % (Manual) 22 H 14 H Eosinophils % (Manual) 0.0 D 0.0 Basophils % (Manual) 0.0 0.0 Myelocytes % (Man) 0 0 Promyelocytes % (Man) 0 0 Blast Cells % (Manual) 0 0 Nucleated RBC % 0 0 Metamyelocytes 0 D 0 Hypochromia 0 0 Platelet Estimate Decreased Decreased Platelet Comment Present Polychromasia 0 0 Poikilocytosis 0 1+ Anisocytosis 0 0 Microcytosis 0 0 Macrocytosis 0 0 Sodium 143 Potassium 4.6 Chloride 106 Carbon Dioxide 30 Anion Gap 7 L BUN 21 H Creatinine 1.1 Creat Clearance w eGFR 50.33 Random Glucose 86 Calcium 8.6 Phosphorus 4.0 Magnesium 2.4 Total Bilirubin 0.4 AST 41 H ALT 42 Alkaline Phosphatase 111 Total Protein 8.0 Albumin 3.4 HOSPITAL COURSE: Date of Admission:05/18/18 Date of Discharge: 05/21/18 Patient is a 63 year old female with past medical history of Asthma, COPD, anemia, anxiety and HIV on HAART (since 2004), presented with generalized weakness that started 3 weeks ago. Patient states that she has been progressively feeling weak and fatigued, and had very poor appetite. She reports that she hasn't been taking her medications since about 4 months ago, brought about by problems at home. About this time, she reported to be not eating well, and when she does, she reports some diarrhea. Patient was seen today at Dr. Ivey's office, complaining of dizziness and anorexia. She was noted to be taking her medications, and was sent to the ED. Patient was previously admitted in 12/2017 for sepsis and after which, reported she never took her medications. In 05/04/18, CD4 was 63. Patient denies fevers, cough, dyspnea, abdominal pain, nausea, vomiting, sputum, neck pain. Denies any recent travel or sick contacts. Patient was admitted for dehydration. She was given IV fluids and put on Neutropenic diet with Ensure. CBC revealed neutropenia. Blood and urine cultures were done and were negative. She was given a medication that would help increase her WBC count. ID and Hematology were consulted. She was put back on her antiviral medications. She reported improvement of her weakness and is able to eat her meals. She will be discharged to SNF for further rehab and regain her strength back with instructions to follow-up with Dr. Ivey at the [facility] after 1 week to discuss flow cytometry report. Minutes to complete discharge: 40 Discharge Summary Reason For Visit: DEHYDRATION Current Active Problems Anorexia (Acute) Fatigue (Acute) Neutropenia (Acute) HIV (human immunodeficiency virus infection) (Chronic) Condition: Improved - Instructions Diet, Activity, Other Instructions: You were admitted because you have been weak and not eating. You have been dehydrated. We gave you IV fluids. We added ensure to your meals which you preferred. Your blood count have been noted to be low. This is because you haven't been taking your medications as prescribed by Dr. Ivey. We also gave you additional medication that would help increase your blood count. You will be discharged to a nursing facility where you can continue with rehab and getting your strength back. Follow up blood test at the SNF: CBC with differential in 23 days with results to Dr. Ivey If you blood counts persistently low, you will need outpatient hematology follow up. Please discuss with Dr. Ivey about the same. Your blood test "Flow Cytometry" has been sent by Dr. Ivey, results of which are currently pending. Please follow up with her for the same. Continue taking all your medications as prescribed. Call 911 or go to the ED if with any worsening weakness, fevers, chills, diarrhea or any new concerns noted. Referrals: Jamila Ivey MD [Staff Physician] - Disposition: RETIREMENT FACILITY - Home Medications Comprehensive Discharge Medication List: Ambulatory Orders Albuterol Sulfate Inhaler - [Ventolin HFA Inhaler -] 1 - 2 inh PO Q4H #1 inhaler 08/20/17 Abacavir Sulfate/Lamivudine [Epzicom Tablet] 1 tablet PO DAILY #30 tablet Cholecalciferol (Vitamin D3) [Vitamin D3 -] 1,000 unit PO DAILY #30 tab Darunavir Ethanolate [Prezista -] 800 mg PO DAILY #30 tablet 05/04/18 Ritonavir [Norvir -] 100 mg PO DAILY #30 tab 05/04/18 Tenofovir Disoproxil Fumarate [Viread -] 300 mg PO DAILY #30 tablet 05/04/18 Valacyclovir HCl [Valtrex] 500 mg PO BID #60 tablet 05/04/18 Mirtazapine [Remeron -] 15 mg PO DAILY #30 tablet 05/06/18 Olanzapine [Zyprexa] 2.5 mg PO HS #30 tablet 05/06/18 Zolpidem Tartrate [Ambien] 10 mg PO HS #30 tablet MDD 1 05/06/18 Atovaquone [Mepron -] 750 mg PO BID #210 ml 05/18/18 This patient is new to me today: Yes Date on this admission: 05/21/18 Emergency Visit: Yes ED Registration Date: 05/18/18 Care time: The patient presented to the Emergency Department on the above date and was hospitalized for further evaluation of their emergent condition. Critical Care patient: No - Discharge Referral Referred to [facility] No
--- NOTE | 2018-05-21 13:14 | PN ---
Teaching Attending Note Name of Resident: Renetta Grady ATTENDING PHYSICIAN STATEMENT I saw and evaluated the patient. I reviewed the resident's note and discussed the case with the resident. I agree with the resident's findings and plan as documented with exceptions below. SUBJECTIVE: Patient seen and examined. no diarrhea. Tolerating diet and ensure well, in better spirits. No other complaints. OBJECTIVE: Vital Signs Period Temp Pulse Resp BP Sys/Inman Pulse Ox Last 24 Hr 97.4 F-99.0 F 70-84 16-18 80-118/44-70 Intake & Output 05/18/18 05/19/18 05/20/18 05/21/18 23:59 23:59 23:59 23:59 Intake Total 240 1880 2580 240 Output Total 750 Balance 240 1130 2580 240 Weight 144 lb 3.2 oz 144 lb General: sitting in bed in no acute distress Abdomen:soft, NT, ND Extremities: no edema Home Medications Medication Instructions Recorded Albuterol Sulfate Inhaler - 1 - 2 inh PO Q4H #1 inhaler 08/20/17 [Ventolin HFA Inhaler -] Abacavir Sulfate/Lamivudine 1 tablet PO DAILY #30 tablet 05/04/18 [Epzicom Tablet] Cholecalciferol (Vitamin D3) 1,000 unit PO DAILY #30 tab 05/04/18 [Vitamin D3 -] Darunavir Ethanolate [Prezista -] 800 mg PO DAILY #30 tablet 05/04/18 Ritonavir [Norvir -] 100 mg PO DAILY #30 tab 05/04/18 Tenofovir Disoproxil Fumarate 300 mg PO DAILY #30 tablet 05/04/18 [Viread -] Valacyclovir HCl [Valtrex] 500 mg PO BID #60 tablet 05/04/18 Mirtazapine [Remeron -] 15 mg PO DAILY #30 tablet 05/06/18 Olanzapine [Zyprexa] 2.5 mg PO HS #30 tablet 05/06/18 Zolpidem Tartrate [Ambien] 10 mg PO HS #30 tablet MDD 1 05/06/18 Atovaquone [Mepron Oral Solution -] 750 mg PO BID #210 ml 05/18/18 Laboratory Results - last 24 hr 05/21/18 05/21/18 08:00 08:00 WBC 1.9 L* RBC 4.22 Hgb 11.0 Hct 34.7 MCV 82.1 MCH 26.0 MCHC 31.7 L RDW 14.5 Plt Count 142 MPV 9.6 D Absolute Neuts (auto) 0.7 L Neutrophils % No Result Required. Neutrophils % (Manual) 48.3 Band Neutrophils % 0.0 Lymphocytes % No Result Required. Lymphocytes % (Manual) 34.5 Monocytes % (Manual) 14 H Eosinophils % (Manual) 0.0 Basophils % (Manual) 0.0 Myelocytes % (Man) 0 Promyelocytes % (Man) 0 Blast Cells % (Manual) 0 Nucleated RBC % 0 Metamyelocytes 0 Hypochromia 0 Platelet Estimate Decreased Platelet Comment Present Polychromasia 0 Poikilocytosis 1+ Anisocytosis 0 Microcytosis 0 Macrocytosis 0 Sodium 143 Potassium 4.6 Chloride 106 Carbon Dioxide 30 Anion Gap 7 L BUN 21 H Creatinine 1.1 Creat Clearance w eGFR 50.33 Random Glucose 86 Calcium 8.6 Phosphorus 4.0 Magnesium 2.4 Total Bilirubin 0.4 AST 41 H ALT 42 Alkaline Phosphatase 111 Total Protein 8.0 Albumin 3.4 ASSESSMENT AND PLAN: 63 yof with PMHx of HIV on HAART (last Cd4 05/04 64), Anorexia nervosa, depression, COPD, prior admission with diarrhea/neutropenia (felt from acute illness), admitted with anorexia, dehydration, stopping all her meds and leucopenia with absolute neutropenia. -Anorexia -Dehydration -Leucopenia with absolute neutropenia, suspect from active HIV virus from stopping her HAART (similar prior history in the setting of non compliance to her HAART) -Diarrhea, suspect refeeding syndrome, similar prior history -HIV -Depression -COPD Plan: tolerating diet well. Asymptomatic. No diarrhea. WBC noted, outpatient CBC monitoring. Discussed with jeannie Yang for dc. Flow cytometry sent, outpatient follow up. D/c to SNF today. Plan discussed with patient in detail, all questions answered. Patient relays understanding and in agreement.
[2018-05-21 14:51] VITALS: BP 92/53; PULSE 77; TEMP 98.4
--- NOTE | 2018-05-25 10:20 | PATH ---
Surgical Pathology Report Patient Name: ANIKA ALLEN Med. Rec. #: [id number] /Age/Gender: 1955 (Age: 63) / F Account: [id number] Location: [facility] MED/SURG Taken: 05/19/2018 Received: 05/19/2018 Reported: 05/25/2018 Physicians: Reba Sofia M.D. Specimen(s) Received PERIPHERAL BLOOD 2 GREEN TOPS Clinical History Leukopenia, pancytopenia, history of HIV Final Diagnosis COMPREHENSIVE FLOW PANEL INTERPRETATION: The monocytic cells are 19% of total events, see comment. Decreased granulocytes. The CD4:CD8 ratio is 0.2:1. There is no evidence of B or T-cell proliferative disorders or increased blasts. COMMENT: Expanded monocytic population was reported in a prior flow cytometric assessment of a peripheral blood sample ([id number], November 2016). The finding is nonspecific. Correlation with relevant clinical and laboratory data is essential. See [facility] report ([id number]) for additional details. Electronically Signed Karthikeyan Rooney M.D. Gross Description Received are 2 green top tubes of blood which are sent to [facility]. /05/19/2018 saudi05/19/2018
== END 2018-05-21 16:25 | DRG 977 ==
LOC: JER 14:51 → JERBED 17:45 → J8W 20:17
PROVIDERS: ADMIT Hospitalist; ATTEND Hospitalist
DX: B20 Human immunodeficiency virus [HIV] disease (principal); R64 Cachexia; F50.00 Anorexia nervosa, unspecified; E86.0 Dehydration; F32.9 Major depressive disorder, single episode, unspecified; I10 Essential (primary) hypertension; E78.5 Hyperlipidemia, unspecified; J44.9 Chronic obstructive pulmonary disease, unspecified; D64.9 Anemia, unspecified; F41.9 Anxiety disorder, unspecified; K21.9 Gastro-esophageal reflux disease without esophagitis; F17.210 Nicotine dependence, cigarettes, uncomplicated; Z68.20 Body mass index [BMI] 20.0-20.9, adult; Z91.14 Patient's other noncompliance with medication regimen; R19.7 Diarrhea, unspecified
CPT/HCPCS: 36415; 71046-TC-FY; 80053; 81003; 81015; 82550; 83615; 83735; 84100; 84484; 85025; 85610; 87040; 87086; 88300-TC; 93005; 93010; 97116-GP; 97161-GP; 99283-25; J1447; J7030

== ENCOUNTER 2018-06-15 11:38 | Inpatient (IN) | payer OTHER ==
--- NOTE | 2018-06-15 12:02 | PDOC ---
History of Present Illness - General Chief Complaint: Lightheaded Stated Complaint: LOW BLOOD PRESSURE Time Seen by Provider: 06/15/18 12:01 History Source: Patient Exam Limitations: No Limitations - History of Present Illness Initial Comments: Pt, with PMH of HIV, HTN, HLD, COPD, anemia, and anorexia, presents from Dr. Ivey's office by EMS, due to hypotension. The pt had BP down to 70s/50s while sitting, and did not improve in Dr. Ivey's office after being observed. The pt states she has been lethargic x1 week, with positional vertigo and cold intolerance, though she did not take her temperature at home. She was discharged from PT/rehab facility last week for anorexia treatment, and was in the facility x3 weeks. She went to the facility after being discharged from [facility] in May for diarrhea and lethargy after non-compliance of her HIV medications. The last CD4 count at [facility] was 63 (April 2018). The pt states she has been taking her medications since her last discharge, and Dr. Ivey stated today that the T cell count increased to over 200. The pt denies any focal complaints at this time, denies nausea/vomiting, diarrhea/constipation, cough, sore throat, abdominal pain, dysuria, hematuria, urinary frequency or urgency, or peripheral swelling. Pt does admit to decreasing PO fluid intake x2 days due to active herpes outbreak and vaginal pain with urinating on open sore. 06/15/18 17:48 Past History - Travel Traveled outside of the country in the last 30 days: No Close contact w/someone who was outside of country & ill: No - Past Medical History Allergies/Adverse Reactions: Allergies Allergy/AdvReac Type Severity Reaction Status Date / Time Penicillins Allergy Unknown Swelling Verified 06/15/18 11:45 MAYONAISE AdvReac Uncoded 06/15/18 11:45 Home Medications: Ambulatory Orders Abacavir Sulfate/Lamivudine [Abacavir-Lamivudine 600-300 mg] 1 each PO DAILY 05/25 Albuterol Sulfate Inhaler - [Ventolin Hfa Inhaler -] 1 - 2 inh PO Q4H 06/15/18 Atovaquone [Mepron Oral Solution -] 750 mg PO ASDIR 06/15/18 Darunavir Ethanolate [Prezista -] 800 mg PO DAILY 06/15/18 Lactobacillus Acidophilus [Probiotic] 0 mg PO DAILY 06/15/18 Mirtazapine 15 mg PO DAILY 06/15/18 Ritonavir 100 mg PO DAILY 06/15/18 Tenofovir Disoproxil Fumarate 300 mg PO DAILY 06/15/18 Valacyclovir HCl [Valtrex -] 500 mg PO BID 06/15/18 Zolpidem Tartrate 10 mg PO HS 06/15/18 Anemia: Yes COPD: Yes DVT: No Diabetes: No GI Disorders: Yes (GERD) HTN: Yes Psychiatric Problems: Yes (ANXIETY) Other medical history: anorexia - Surgical History Abdominal Surgery: Yes (EXPLORATORY) - Immunization History Immunization Up to Date: Yes - Suicide/Smoking/Psychosocial Hx Smoking Status: No Smoking History: Current every day smoker Have you smoked in the past 12 months: Yes Number of Cigarettes Smoked Daily: 10 If you are a former smoker, when did you quit?: 2 months ago Cigars Per Day: 0 Information on smoking cessation initiated: No 'Breaking Loose' booklet given: 12/15/17 Hx Alcohol Use: Yes Drug/Substance Use Hx: No Substance Use Type: None Hx Substance Use Treatment: No Review of Systems - Review of Systems Able to Perform ROS?: Yes Is the patient limited Chilean proficient: No Constitutional: Yes: Chills, Weakness (fatigued and difficulty walking up the stairs x1 week), Weight Stable. No: Diaphoresis, Fever, Loss of Appetite, Night Sweats HEENTM: No: Blurred Vision, Recent change in vision, Throat Pain, Throat Swelling Respiratory: No: Cough, Orthopnea, Shortness of Breath, Wheezing Cardiac (ROS): No: Chest Pain, Edema, Irregular Heart Rate, Lightheadedness, Palpitations, Syncope, Chest Tightness ABD/GI: No: Abdominal Distended, Blood Streaked Bowels, Constipated, Diarrhea, Nausea, Poor Appetite, Poor Fluid Intake, Vomiting, Abdominal cramping : Yes: Burning (vaginal burning with urination due to herpes outbreak), Pain ( vaginal pain, herpes). No: Dysuria, Discharge, Frequency, Hematuria, Urgency Musculoskeletal: Yes: Muscle Weakness (weakness and fatigue with walking up stairs and on exertion). No: Back Pain, Joint Pain Integumentary: No: Bruising, Rash Neurological: Yes: Weakness, Dizziness (positional vertigo with lying back or picking up objects). No: Headache, Numbness, Paresthesia, Seizure, Unsteady Gait, Ataxia Psychiatric: No: Sleep Pattern Change, Change in Appetite Endocrine: Yes: Intolerance to Cold. No: Increased Urine, Change in Weight Hematologic/Lymphatic: Yes: Anemia. No: Blood Clots, Easy Bleeding, Easy Bruising All Other Systems: Reviewed and Negative *Physical Exam - Vital Signs Last Vital Signs Temp Pulse Resp BP Pulse Ox 97.6 F 87 18 103/69 100 06/15/18 11:45 06/15/18 11:45 06/15/18 11:45 06/15/18 11:45 06/15/18 11:45 - Physical Exam General Appearance: Yes: Nourished, Appropriately Dressed, Thin. No: Apparent Distress HEENT: positive: EOMI, JOHNNA, Normal ENT Inspection, Normal Voice, Symmetrical, TMs Normal, Pharynx Normal, Hearing Grossly Normal, Other (dry mucous membranes) . negative: Scleral Icterus (R), Scleral Icterus (L), Pharyngeal Erythema, Tonsillar Exudate, Tonsillar Erythema, Nasal Congestion, Rhinorrhea, Sinus Tenderness, TM Bulging, TM Erythema, Thrush Neck: positive: Trachea midline, Normal Thyroid, Supple. negative: Tender, Rigid, Lymphadenopathy (R), Lymphadenopathy (L) Respiratory/Chest: positive: Decreased Breath Sounds, Rhonchi (coarse breath sounds anteriorly b/l). negative: Chest Tender, Lungs Clear, Normal Breath Sounds, Respiratory Distress, Accessory Muscle Use, Crackles, Wheezing, Dullness Cardiovascular: positive: Regular Rhythm, Regular Rate, S1, S2. negative: Edema , JVD, Murmur Vascular Pulses: Carotid (R): 3+, Carotid (L): 3+ Gastrointestinal/Abdominal: positive: Normal Bowel Sounds, Flat, Soft. negative : Tender, Organomegaly, Pulsatile Mass, Guarding, Rebound, Tenderness Rectal Exam: positive: deferred Lymphatic: negative: Adenopathy, Tenderness Musculoskeletal: positive: Normal Inspection. negative: CVA Tenderness Extremity: positive: Normal Capillary Refill, Normal Inspection, Normal Range of Motion, Pelvis Stable. negative: Tender Integumentary: positive: Normal Color, Dry, Warm. negative: Jaundice, Petechiae , Rash, Ecchymosis Neurologic: positive: appeals manager II-XII NML intact, Fully Oriented, Alert, Normal Mood/ Affect, Normal Response, Motor Strength 5/5. negative: EOM Palsy, Facial Droop , Numbness, Finger to Nose ED Treatment Course - LABORATORY CBC & Chemistry Diagram: 06/15/18 12:24 06/15/18 18:05 Medical Decision Making - Medical Decision Making Pt seen at bedside, also seen by Dr. Garces. Pt was sent by Dr. Ivey's office, due to hypotension. Pt has been lethargic x1 week, with positional vertigo and cold intolerance, was discharged from PT/rehab facility last week for anorexia treatment. Was admitted in May for diarrhea and lethargy. Last CD4 count was 63 (April 2018). Pt denies any focal complaints at this time , denies nausea/vomiting, diarrhea/constipation, cough, sore throat. Pt does admit to decreasing PO fluid intake x2 days due to active herpes outbreak and vaginal pain with urinating on open sore. Work-up for lethargy/vertigo. Ordered CBC, CMP, Mg/Phos (nutritional deficiencies), cardiac profile, ECG, chest x-ray. Providing 1 L NS for fluid resuscitation (possibly hypovolemic due to decreased intake and positional vertigo). Labs sent, pending results. Pt likely to be admitted for further work-up. 06/15/18 13:00 CBC with diff: WBC 2.9, H/H 10.1/31.5, ANC 1.4 (ANC .7 prior visit) 06/15/18 13:07 CMP: K 5.8, Mg 2.6, BUN/Cr at baseline. Trop <.02 ECG was similar to prior, slightly peaked Ts in lateral leads, no QRS widening. Will provide calcium gluconate 1 g, 5 units insulin, and 1 amp D50 to reduce K. Will call for pt admission. 06/15/18 14:[address] Ivey office for admission to determine admitting team. 06/15/18 14:46 Whizzer Hand attempting to reach Dr. Ivey for admission. 06/15/18 15:[address] Ivey, will page admitting team if no response. 06/15/18 15:47 Admitting team seeing pt, placed consult for Dr. Ivey. Pt comfortable and has provided UA sample. 06/15/18 16:25 Chest x-ray clear, no infiltrates. UA showed UTI -- 500 mg Levaquin given to cover (pt penicillin allergic). Pt accepted by admitting team, awaiting bed. 06/15/18 17:06 *DC/Admit/Observation/Transfer Diagnosis at time of Disposition: HIV (human immunodeficiency virus infection), Anorexia nervosa Leukopenia Qualifiers: Leukopenia type: neutropenia Neutropenia type: due to infection Qualified Code( s): D70.3 - Neutropenia due to infection Anemia Qualifiers: Anemia type: unspecified type Qualified Code(s): D64.9 - Anemia, unspecified Fatigue Qualifiers: Fatigue type: unspecified Qualified Code(s): R53.83 - Other fatigue Hypotension Qualifiers: Hypotension type: unspecified hypotension type Qualified Code(s): I95.9 - Hypotension, unspecified - Discharge Dispostion Condition at time of disposition: Stable Decision to Admit order: Yes - Referrals - Patient Instructions - Post Discharge Activity
[2018-06-15] MEDS ORDERED: SODIUM CHLORIDE 1,000 ML IV STA (12:26)
[2018-06-15 13:02] LABS: BASO % 0.6 % (0-2.0); EOS % 0.3 % (0-4.5); HEMATOCRIT 31.5 % (32.4-45.2); HEMOGLOBIN 10.1 GM/dL (10.7-15.3); LYMPH % 28.6 % (8-40); MCHC 32.2 g/dl (32.0-36.0); MEAN CELL VOLUME 84.1 fl (80-96); MEAN PLT VOLUME 8.3 fl (7.5-11.1); MONO % 22.8 % (3.8-10.2); NEUT % 47.7 % (42.8-82.8); PLATELET COUNT 220 K/MM3 (134-434); RBC 3.75 M/mm3 (3.60-5.2); RDW 16.1 % (11.6-15.6); WHITE BLOOD COUNT 2.9 K/mm3 (4.0-10.0)
--- NOTE | 2018-06-15 13:08 | PDOC ---
Attending Attestation - Resident Resident Name: Katherine Matos - ED Attending Attestation I have performed the following: I have examined & evaluated the patient, The case was reviewed & discussed with the resident, I agree w/resident's findings & plan - HPI HPI: 06/15/18 13:05 63-year-old female with history of HIV/AIDS, anemia and anorexia with recent admission about one month ago for generalized weakness and deconditioning in the setting of medication noncompliance, found to be neutropenic at that time and was restarted on medications and discharged to a rehabilitation facility. She was there for 3 weeks and went home about one week ago, where she has had persistent generalized weakness and severe fatigue, had genital herpes outbreak but denies any other focal infectious complaints or cardiopulmonary complaints. She was seen in the [facility] today as follow-up and was noted to be generally weak and hypotensive, referred to the emergency department. - Physicial Exam PE: 06/15/18 13:06 Blood pressure 103/69, vitals are otherwise within normal limits Alert but generally weak appearing, conversant, within Oropharynx is clear, dry mucosa Heart is regular, slight right basilar crackles Abdomen benign Extremities are normal - Medical Decision Making 06/15/18 13:07 63-year-old female with history of HIV/AIDS and recent admission presents with generalized weakness and low blood pressure from [facility], sent for evaluation. Rule out metabolic versus infectious etiology, appears dehydrated. Labs, urinalysis EKG, chest x-ray IV fluids Likely admission Heart Score/ECG Review #1 ECG reviewed & interpreted by me at: 12:39 General ECG Interpretation: Sinus Rhythm, Normal Rate (86), Normal Intervals ( qtc 471), No acute ischemic changes
[2018-06-15 13:13] LABS: INR 0.98 (0.83-1.09); PROTHROMBIN TIME (PATIENT) 11.6 SEC (9.7-13.0)
[2018-06-15 13:16] LABS: ACTIVATED PTT 30.3 SECONDS (25.2-36.5)
[2018-06-15 13:51] LABS: ALBUMIN 3.5 g/dl (3.4-5.0); ALK PHOS 93 U/L (45-117); ANION GAP 0 MMOL/L (8-16); BILIRUBIN,TOTAL 0.4 mg/dL (0.2-1); BLOOD UREA NITROGEN 14 mg/dL (7-18); CALCIUM 9.1 mg/dL (8.5-10.1); CHLORIDE 106 mmol/L (98-107); CO2 29 mmol/L (21-32); CREATININE 1.1 mg/dL (0.55-1.3); GLUCOSE,RANDOM 78 mg/dL (74-106); MAGNESIUM 2.6 mg/dL (1.8-2.4); PHOSPHOROUS 4.8 mg/dL (2.5-4.9); POTASSIUM 5.8 mmol/L (3.5-5.1); SGOT/AST 58 U/L (15-37); SGPT/ALT 31 U/L (13-61); SODIUM 135 mmol/L (136-145); TOT PROT 8.7 g/dl (6.4-8.2)
[2018-06-15] MEDS ORDERED: ACETAMINOPHEN 325 MG TABLET (FP) PO ONE (14:19)
[2018-06-15] MEDS ORDERED: DEXTROSE 50%-WATER - 25 GM/50 ML VIAL IVPUSH ONE (14:35)
[2018-06-15] MEDS ORDERED: CALCIUM GLUCONATE 10% - 1,000 MG/10 ML VIAL IVPUSH ONE (14:35)
[2018-06-15] MEDS ORDERED: INSULIN REGULAR HUMAN 100 UNITS/ML *VIAL IVPUSH ONE (14:36)
[2018-06-15] MEDS ORDERED: ACETAMINOPHEN 325 MG TABLET (FP) ONE (15:45)
[2018-06-15] MEDS ORDERED: CALCIUM GLUCONATE 10% - 1,000 MG/10 ML VIAL ONE (15:46)
[2018-06-15] MEDS ORDERED: DEXTROSE 50%-WATER 25 GM/50 ML DISP.SYRIN ONE (15:46)
[2018-06-15] MEDS ORDERED: INSULIN REGULAR HUMAN 100 UNITS/ML *VIAL ONE (15:46)
[2018-06-15 15:57] LABS: URINE APPEARANCE CLEAR; URINE BILIRUBIN NEGATIVE (<2.0 mg/dL); URINE COLOR LTYELLOW; URINE GLUCOSE (UA) NEGATIVE (NEGATIVE); URINE KETONE NEGATIVE (NEGATIVE); URINE LEUK ESTERASE 2+ (NEGATIVE); URINE NITRITE NEGATIVE (NEGATIVE); URINE PROTEIN NEGATIVE (NEGATIVE); URINE UROBILINOGEN NEGATIVE mg/dL (0.2-1.0)
[2018-06-15 16:52] LABS: EPI CELLS FEW /HPF (FEW)
--- NOTE | 2018-06-15 17:52 | HP ---
Admitting History and Physical - Primary Care Physician PCP: Jamila Balderrama - Admission Chief Complaint: hypotension History of Present Illness: Medical Admitting Resident Note: 63F with history of HIV/AIDs presents to the hospital sent in by Dr. Balderrama for hypotension. Patient has been dizzy and tired for a very long time. She noted decreased food intake but drinks a lot of water. She endorses occasional chills. Per patient Dr. Balderrama checked her BP multiple times and systolic was in the mid 70s-mid 80s. She denies nausea vomiting fever or chest pain. She has been getting more tired and has been having less energy. She endorses gential herpes which she has had outbreaks of for a long time but she is not taking valtrex this time because she doesn't want to take a lot of medications. States her medications are Norvir, Epicom, Viread, Prezista, Zyprexa, remeron, and the patient uses [facility]. SHe was found to have Mild hyperkalemia in the ED. Potassium 5.8 BP 125/86 on my exam negative orthostatics Tired appearing RRR S1 S2 CTAB Soft non tender non distended no edema Dixhallpike maneuver positive on right with a few beats of horizontal nystagmus Negative for orthostatic hypotension Problem list: HIV/AIDs neutropenia Hyperkalemia-likely hemolyzed (reported slightly hemolyzed) genital herpes loss of energy Plan: Place on observation IVF Repeat BMP after 1 liter IVF bolus. ID consult to HAART home meds and to see patient for genital herpes-patient requesting Dr. 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 No: Alzheimer's, CVA, Dementia, Migraine, Multiple Sclerosis, Parkinson's, Seizure, Syncope, TIA, Vertigo, Other Pulmonary: Yes: COPD, Pneumonia Gastrointestinal: Yes: Other (Meredith Esophagitis from EGD 06/19/14). No: Ascites, Cancer, Constipation, Crohn's Disease, Diverticulitis, Diverticulosis, Esophageal Varices, Gastritis, GERD, GI Bleed, Hemorrhoids, Hiatal Hernia, Inflamatory Bowel Disease, Irritable Bowel Disease, Pancreatitis, Peptic Ulcer Disease, Ulcerative Colitis ...LMP: 01/04/15 Heme/Onc: Yes: Anemia Infectious Disease: Yes: AIDS, HIV, STD's Psych: Yes: Other (anorexia) - Past Surgical History Past Surgical History: Yes: Breast Biopsy, , Tonsillectomy - Smoking History Smoking history: Current every day smoker Have you smoked in the past 12 months: Yes Aproximately how many cigarettes per day: 10 If you are a former smoker, when did you quit?: 2 months ago - Alcohol/Substance Use Hx Alcohol Use: Yes History of Substance Use: reports: None - Social History ADL: Independent Occupation: on disability History of Recent Travel: No Home Medications - Allergies Allergies/Adverse Reactions: Allergies Allergy/AdvReac Type Severity Reaction Status Date / Time Penicillins Allergy Unknown Swelling Verified 06/15/18 11:45 [place]ISE AdvReac Uncoded 06/15/18 11:45 - Home Medications Home Medications: Ambulatory Orders Abacavir Sulfate/Lamivudine [Abacavir-Lamivudine 600-300 mg] 1 each PO DAILY 05/25 Albuterol Sulfate Inhaler - [Ventolin Hfa Inhaler -] 1 - 2 inh PO Q4H 06/15/18 Atovaquone [Mepron Oral Solution -] 750 mg PO ASDIR 06/15/18 Darunavir Ethanolate [Prezista -] 800 mg PO DAILY 06/15/18 Lactobacillus Acidophilus [Probiotic] 0 mg PO DAILY 06/15/18 Mirtazapine 15 mg PO DAILY 06/15/18 Ritonavir 100 mg PO DAILY 06/15/18 Tenofovir Disoproxil Fumarate 300 mg PO DAILY 06/15/18 Valacyclovir HCl [Valtrex -] 500 mg PO BID 06/15/18 Zolpidem Tartrate 10 mg PO HS 06/15/18 Family Disease History - Family Disease History Family Disease History: CA: Father ( prostate CA), Other: Mother (alive dementia) Physical Examination Vital Signs: Vital Signs Temperature 97.6 F 06/15/18 11:45 Pulse Rate 86 06/15/18 16:52 Respiratory Rate 16 06/15/18 16:52 Blood Pressure 122/75 06/15/18 16:52 O2 Sat by Pulse Oximetry (%) 99 06/15/18 16:52 Labs: CBC, BMP 06/15/18 12:24 06/15/18 12:24 Visit type - Emergency Visit Emergency Visit: Yes Care time: The patient presented to the Emergency Department on the above date and was hospitalized for further evaluation of their emergent condition. - New Patient This patient is new to me today: Yes Date on this admission: 06/15/18 - Critical Care Critical Care patient: No
--- NOTE | 2018-06-15 17:57 | PN ---
Teaching Attending Note Name of Resident: Nolan Galaviz ATTENDING PHYSICIAN STATEMENT I saw and evaluated the patient. I reviewed the resident's note and discussed the case with the resident. I agree with the resident's findings and plan as documented. SUBJECTIVE: Patient is a 63 y/o AAF with multiple admits; history of issues with HIV, chronic dizziness, etc. Patient actually has no acute complaints when I saw her today in the ER; just chronic dizziness >1 month associated with rotational motion of the room. She denies felicia orthostatic symptoms but admits to aforementioned stereotyped vertiginous sx; denies prior changes, cerebellar signs, etc. Never has been treated for vertigo in the past. She is hemodynamically stable and afebrile. The reason she was sent in was for hypotension but all MAPs >65 in our ER. Negative orthostatic VS. OBJECTIVE: VSS; orthostatics negative Gen: Appears well, awake and alert, NAD HEENT: NC AT EOMI Neuro: (+) R-sided Quan-Halpike, no cerebellar signs, moves all 4 extremities with normal sensorium, CN2-12 grossly intact. GI: Soft, NT ND +BS CV: RRR, no m/g/r Neck: No JVD, trachea midline, moves without tenderness ASSESSMENT AND PLAN: 1) Hypotension: resolved, normal MAPS, continue to monitor. Runs low; hasn't been drinking well so will give 1L NS bolus and observe. 2) Vertigo: (+) R-sided DH, will try meclizine. Can consider Elliot Maneuvers. 3) HIV: Continue home meds, followup with ID Continue all other home meds; please refer to resident note. If BP remain stable and chronic dizziness improved can go ahead and likely DC in AM.
[2018-06-15] MEDS ORDERED: SODIUM CHLORIDE 1,000 ML IV ONE (18:14)
[2018-06-15] MEDS ORDERED: MECLIZINE HCL 25 MG TABLET (FP) PO SCH (18:15)
[2018-06-15] MEDS ORDERED: SODIUM CHLORIDE 1,000 ML IV SCH (18:15)
--- NOTE | 2018-06-15 18:16 | HP ---
CHIEF COMPLAINT:Low blood pressure, generalized weakness PCP: Dr. Ivey HISTORY OF PRESENT ILLNESS: Patient is a 63 year old female with past medical history of Asthma, COPD, anemia, anxiety and HIV on HAART (since 2004), was sent in from [facility] due to low blood pressure. Patient does not know how low her BP was, but as per ED, SBPs was at 70s-80s. Patient was recently admitted for generalized weakness due to anorexia and dehydration. She then went to rehab and stayed there for 3 weeks. Patient left 1 week ago because she does not want to stay there anymore and she has genital herpes that started 4 days ago. Patient reported she had previous episodes of genital herpes, to which she was supposed to be treated prophylactically with Valacyclovir. Patient was not compliant and just takes the medication when she's having the symptoms. Patient reported that since she had the genital lesions, she has not been drinking water to avoid voiding as it causes dysuria. Today, during her follow-up at [facility], she was noted to have low blood pressure and was advised to go to the ED. Otherwise, patient denies fevers, cough, dyspnea, abdominal pain, nausea, vomiting, neck pain. Denies any recent travel or sick contacts. ER course was notable for: (1)HyperK - given Ca gluconate, Insulin and D50 (2)Given 1L NS bolus (3) Recent Travel: denies any recent travel PAST MEDICAL HISTORY: Asthma COPD Anemia Anxiety HIV (2004) PAST SURGICAL HISTORY: Social History: Smokin-6 sticks per week for >40 years Alcohol:occasional EtOH drink Drugs: denies illicit drug use; Used to sniff cocaine - quit 10 years ago Family History: Allergies Penicillins Allergy (Unknown, Verified 05/18/18 15:24) Swelling MAYONAISE Adverse Reaction (Uncoded 05/18/18 15:24) HOME MEDICATIONS: Home Medications Medication Instructions Recorded Abacavir Sulfate/Lamivudine 1 each PO DAILY 06/15/18 [Abacavir-Lamivudine 600-300 mg] Albuterol Sulfate Inhaler - 1 - 2 inh PO Q4H 06/15/18 [Ventolin Hfa Inhaler -] Atovaquone [Mepron Oral Solution -] 750 mg PO ASDIR 06/15/18 Darunavir Ethanolate [Prezista -] 800 mg PO DAILY 06/15/18 Lactobacillus Acidophilus 0 mg PO DAILY 06/15/18 [Probiotic] Mirtazapine 15 mg PO DAILY 06/15/18 Ritonavir 100 mg PO DAILY 06/15/18 Tenofovir Disoproxil Fumarate 300 mg PO DAILY 06/15/18 Valacyclovir HCl [Valtrex -] 500 mg PO BID 06/15/18 Zolpidem Tartrate 10 mg PO HS 06/15/18 REVIEW OF SYSTEMS CONSTITUTIONAL: generalized weakness Absent: fever, chills, diaphoresis, malaise, loss of appetite, weight change HEENT: Absent: rhinorrhea, nasal congestion, throat pain, throat swelling, difficulty swallowing, mouth swelling, ear pain, eye pain, visual changes CARDIOVASCULAR: Absent: chest pain, syncope, palpitations, irregular heart rate, lightheadedness , peripheral edema RESPIRATORY: Absent: cough, shortness of breath, dyspnea with exertion, orthopnea, wheezing, stridor, hemoptysis GASTROINTESTINAL: Absent: abdominal pain, abdominal distension, nausea, vomiting, diarrhea, constipation, melena, hematochezia GENITOURINARY: burning Absent: frequency, urgency, hesitancy, hematuria, flank pain, genital pain MUSCULOSKELETAL: Absent: myalgia, arthralgia, joint swelling, back pain, neck pain SKIN: Absent: rash, itching, pallor HEMATOLOGIC/IMMUNOLOGIC: Absent: easy bleeding, easy bruising, lymphadenopathy, frequent infections ENDOCRINE: Absent: unexplained weight gain, unexplained weight loss, heat intolerance, cold intolerance NEUROLOGIC: Absent: headache, focal weakness or paresthesias, dizziness, unsteady gait, seizure, mental status changes, bladder or bowel incontinence PSYCHIATRIC: Absent: anxiety, depression, suicidal or homicidal ideation, hallucinations. PHYSICAL EXAMINATION Vital Signs - 24 hr 06/15/18 06/15/18 06/15/18 11:45 12:08 15:58 Temperature 97.6 F Pulse Rate 87 Pulse Rate [ 94 H Right Radial] Respiratory 18 20 Rate Blood Pressure 103/69 Blood Pressure 103/72 [Right Arm] O2 Sat by Pulse 100 98 100 Oximetry (%) 06/15/18 06/15/18 16:15 16:52 Temperature Pulse Rate Pulse Rate [ 90 86 Right Radial] Respiratory 16 16 Rate Blood Pressure Blood Pressure 105/75 122/75 [Right Arm] O2 Sat by Pulse 99 99 Oximetry (%) Orthostatics: lying down 111/85, sitting 110/82, standing 97/79 GENERAL: Awake, alert, and fully oriented, in no acute distress. HEAD: Normal with no signs of trauma. EYES: PERRLA, EOMI, sclera anicteric, conjunctiva clear. EARS, NOSE, THROAT: Ears normal, nares patent, oropharynx clear without exudates. NECK: Normal range of motion, supple without lymphadenopathy, JVD, or masses. LUNGS: Breath sounds equal, clear to auscultation bilaterally. HEART: Regular rate and rhythm, normal S1 and S2 without murmur, rub or gallop. ABDOMEN: Soft, nontender, not distended, normoactive bowel sounds. MUSCULOSKELETAL: Normal range of motion at all joints. No bony deformities or tenderness. No CVA tenderness. UPPER EXTREMITIES: 2+ pulses, warm, well-perfused. No cyanosis. No clubbing. No peripheral edema. LOWER EXTREMITIES: 2+ pulses, warm, well-perfused. No calf tenderness. No peripheral edema. NEUROLOGICAL: Cranial nerves II-XII intact. Normal speech. Normal gait. PSYCHIATRIC: Cooperative. Good eye contact. Appropriate mood and affect. SKIN: Warm, dry, normal turgor, no rashes or lesions noted, normal capillary refill. Laboratory Results - last 24 hr 06/15/18 06/15/18 06/15/18 12:24 12:24 12:24 WBC 2.9 L RBC 3.75 Hgb 10.1 L Hct 31.5 L MCV 84.1 MCH 27.0 MCHC 32.2 RDW 16.1 H Plt Count 220 MPV 8.3 Absolute Neuts (auto) 1.4 L Total Counted 100 Neutrophils % 47.7 Neutrophils % (Manual) 47.0 Band Neutrophils % 3.0 Lymphocytes % 28.6 Lymphocytes % (Manual) 31.0 Monocytes % 22.8 H Monocytes % (Manual) 19 H Eosinophils % 0.3 Basophils % 0.6 Nucleated RBC % 0 PT with INR 11.60 INR 0.98 PTT (Actin FS) 30.3 Sodium 135 L Potassium 5.8 H Chloride 106 Carbon Dioxide 29 Anion Gap 0 L BUN 14 Creatinine 1.1 Creat Clearance w eGFR 50.33 Random Glucose 78 Calcium 9.1 Phosphorus 4.8 Magnesium 2.6 H Total Bilirubin 0.4 AST 58 H ALT 31 Alkaline Phosphatase 93 Creatine Kinase 174 Creatine Kinase Index 0.5 CK-MB (CK-2) < 1.0 Troponin I < 0.02 Total Protein 8.7 H Albumin 3.5 Urine Color Urine Appearance Urine pH Ur Specific [place] Urine Protein Urine Glucose (UA) Urine Ketones Urine Blood Urine Nitrite Urine Bilirubin Urine Urobilinogen Ur Leukocyte Esterase Urine WBC (Auto) Urine RBC (Auto) Ur Epithelial Cells 06/15/18 06/15/18 12:24 15:21 WBC RBC Hgb Hct MCV MCH MCHC RDW Plt Count MPV Absolute Neuts (auto) Total Counted Neutrophils % Neutrophils % (Manual) Band Neutrophils % Lymphocytes % Lymphocytes % (Manual) Monocytes % Monocytes % (Manual) Eosinophils % Basophils % Nucleated RBC % PT with INR INR PTT (Actin FS) Sodium Potassium Chloride Carbon Dioxide Anion Gap BUN Creatinine Creat Clearance w eGFR Random Glucose Calcium Phosphorus Magnesium Total Bilirubin AST ALT Alkaline Phosphatase Creatine Kinase Cancelled Creatine Kinase Index CK-MB (CK-2) Troponin I Cancelled Total Protein Albumin Urine Color Ltyellow Urine Appearance Clear Urine pH 6.0 Ur Specific [place] 1.015 Urine Protein Negative Urine Glucose (UA) Negative Urine Ketones Negative Urine Blood Negative Urine Nitrite Negative Urine Bilirubin Negative Urine Urobilinogen Negative Ur Leukocyte Esterase 2+ H Urine WBC (Auto) 15 Urine RBC (Auto) 16 Ur Epithelial Cells Few ASSESSMENT/PLAN: Patient is a 63 year old female with past medical history of Asthma, COPD, anemia, anxiety and HIV on HAART (since 2004), was sent in from [facility] due to low blood pressure. #Low blood pressure: likely 2/2 to dehydration -BP now is stable at 110/80 -Orthostatics done: lying down 111/85, sitting 110/82, standing 97/79 -IV fluid bolus given at the ED -IV NS @100ml/hr x1L and monitor -Meclizine 25mg q6h STA x24h for positional vertigo #Hyperkalemia: K 5.8 -may be inaccurate, blood slightly hemolyzed -Repeat K stat done - 4.5 -Ca gluconate, Insulin/D50 given at the ED -will monitor K #HIV on HAART -Continue HAART tx -ID (Dr. Ivey) consulted. #Genital Herpes -Continue Acyclovir -Dr. Ivey consulted. #Neutropenia -Neutropenic diet -CXR and UA done to screen for infection -urine cultures pending -Will trend CBC #FEN -IV NS @100ml/hr x1L -routine bmp monitoring -neutropenic diet #Prophylaxis -Heparin 5000 unit sq tid #Disposition -admit to obs Visit type - Emergency Visit Emergency Visit: Yes ED Registration Date: 06/15/18 Care time: The patient presented to the Emergency Department on the above date and was hospitalized for further evaluation of their emergent condition. - New Patient This patient is new to me today: Yes Date on this admission: 06/16/18 - Critical Care Critical Care patient: No
[2018-06-15 18:46] LABS: ANION GAP 6 MMOL/L (8-16); BLOOD UREA NITROGEN 16 mg/dL (7-18); CALCIUM 8.7 mg/dL (8.5-10.1); CHLORIDE 109 mmol/L (98-107); CO2 27 mmol/L (21-32); GLUCOSE,RANDOM 89 mg/dL (74-106); POTASSIUM 4.5 mmol/L (3.5-5.1); SODIUM 142 mmol/L (136-145)
[2018-06-15] MEDS: ATOVAQUONE 750 MG/5 ML SUSPENSION PO SCH (21:00)
[2018-06-15] MEDS ORDERED: ZOLPIDEM TARTRATE 5 MG TABLET PO PRN (22:00)
[2018-06-15] MEDS ORDERED: MIRTAZAPINE 15 MG TABLET (FP) PO SCH (22:00)
[2018-06-15] MEDS ORDERED: valACYclovir HCL 500 MG TABLET (FP) ONE (22:36)
[2018-06-15] MEDS ORDERED: MIRTAZAPINE 15 MG TABLET (FP) ONE (22:36)
[2018-06-15] MEDS: valACYclovir HCL 500 MG TABLET (FP) PO SCH (22:40)
[2018-06-16 01:03] VITALS: BMI 20.8
[2018-06-16] MEDS: MECLIZINE HCL 25 MG TABLET (FP) PO SCH ×3 (01:35→11:52)
[2018-06-16] MEDS: HEPARIN NA (PORCINE) 5,000 UNITS/ML 1ML VIAL SQ SCH ×2 (06:47→14:38)
[2018-06-16 07:32] LABS: BASO % 0.4 % (0-2.0); EOS % 0.4 % (0-4.5); HEMATOCRIT 28.9 % (32.4-45.2); HEMOGLOBIN 9.3 GM/dL (10.7-15.3); LYMPH % 31.3 % (8-40); MCH 26.9 pg (25.7-33.7); MCHC 32.1 g/dl (32.0-36.0); MEAN CELL VOLUME 83.9 fl (80-96); MEAN PLT VOLUME 7.9 fl (7.5-11.1); MONO % 23.4 % (3.8-10.2); NEUT % 44.5 % (42.8-82.8); PLATELET COUNT 198 K/MM3 (134-434); RBC 3.45 M/mm3 (3.60-5.2); RDW 15.9 % (11.6-15.6); WHITE BLOOD COUNT 2.1 K/mm3 (4.0-10.0)
[2018-06-16] MEDS ORDERED: PT OWN MED DRAWER 7, Y5N ONE ×2 (07:49→09:14)
[2018-06-16 07:59] LABS: ALK PHOS 89 U/L (45-117); ANION GAP 4 MMOL/L (8-16); BILIRUBIN,TOTAL 0.2 mg/dL (0.2-1); BLOOD UREA NITROGEN 14 mg/dL (7-18); CALCIUM 8.4 mg/dL (8.5-10.1); CHLORIDE 111 mmol/L (98-107); CO2 27 mmol/L (21-32); CREATININE 0.9 mg/dL (0.55-1.3); GLUCOSE,RANDOM 89 mg/dL (74-106); MAGNESIUM 2.4 mg/dL (1.8-2.4); PHOSPHOROUS 5.1 mg/dL (2.5-4.9); POTASSIUM 4.4 mmol/L (3.5-5.1); SGOT/AST 29 U/L (15-37); SGPT/ALT 24 U/L (13-61); SODIUM 142 mmol/L (136-145); TOT PROT 7.4 g/dl (6.4-8.2)
[2018-06-16] MEDS ORDERED: SODIUM CHLORIDE 1,000 ML IV SCH (08:45)
[2018-06-16] MEDS: ATOVAQUONE 750 MG/5 ML SUSPENSION PO SCH (09:23)
[2018-06-16] MEDS: valACYclovir HCL 500 MG TABLET (FP) PO SCH (09:26)
--- NOTE | 2018-06-16 09:54 | EKG ---
Test Reason : Blood Pressure : / mmHG Vent. Rate : 086 BPM Atrial Rate : 086 BPM P-R Int : 164 ms QRS Dur : 080 ms QT Int : 394 ms P-R-T Axes : 056 068 071 degrees QTc Int : 471 ms POOR DATA QUALITY, INTERPRETATION MAY BE ADVERSELY AFFECTED NORMAL SINUS RHYTHM NORMAL ECG WHEN COMPARED WITH ECG OF 18-MAY-2018 16:27, NO SIGNIFICANT CHANGE WAS FOUND Confirmed by MORTEZA FIELDS, DONALD ([id number]) on 06/16/2018 9:54:45 AM Referred By: Confirmed By:DONALD PRO MD
[2018-06-16] MEDS ORDERED: PATIENT'S OWN MEDICATION (NON-FORMULARY) (Abacavir Sulfate/Lamivudine [Abacavir-Lamivudine PO SCH (10:00)
[2018-06-16] MEDS ORDERED: DARUNAVIR ETHANOLATE 800 MG TAB PO SCH (10:00)
[2018-06-16] MEDS ORDERED: lamiVUDine 150 MG TABLET PO SCH (10:00)
[2018-06-16] MEDS ORDERED: ABACAVIR SULFATE 300 MG TABLET PO SCH (10:00)
[2018-06-16] MEDS ORDERED: RITONAVIR 100 MG TABLET PO SCH (10:00)
[2018-06-16] MEDS ORDERED: LACTOBACILLUS ACIDOPHILUS 1 TABLET PO SCH (10:00)
[2018-06-16] MEDS ORDERED: TENOFOVIR DISOPROXIL FUMARATE 300 MG TABLET PO SCH (10:00)
[2018-06-16 11:26] LABS: ANISOCYTOSIS 3+; MACROCYTOSIS 0; OVALOCYTE 1+; PLATELET ESTIMATE NORMAL; TARGET CELLS 1+
--- NOTE | 2018-06-16 11:28 | CON.ID ---
Consult Consult Specialty:: infectious disease Referred by:: [facility] Reason for Consultation:: HIV - History of Present Illness Chief Complaint: lightheadedness History of Present Illness: 63 yo female with aids/anorexia seen in clinic yesterday complained of lightheadedness and was found to have low bp- sbp as low as 75, also chills she had been drinking less fluids due to an ongoing Herpes outbreak-was having localized pain with urination in ED noted to be hyperkalemic as well now reports lightheadedness has resolved eating well no diarrhea no fevers currently has been taking her ART cd4 now over 200! viralload improved but not yet suppressed recent toothache resolved with clindamycin - History Source History Provided By: Patient, Medical Record Limitations to Obtaining History: No Limitations - Past Medical History [employer]: Yes: Peripheral Neuropathy. No: Alzheimer's, CVA, Dementia, Migraine, Multiple Sclerosis, Parkinson's, Seizure, Syncope, TIA, Vertigo, Other Pulmonary: Yes: COPD, Pneumonia Gastrointestinal: Yes: Other (Meredith Esophagitis from EGD 06/19/14). No: Ascites, Cancer, Constipation, Crohn's Disease, Diverticulitis, Diverticulosis, Esophageal Varices, Gastritis, GERD, GI Bleed, Hemorrhoids, Hiatal Hernia, Inflamatory Bowel Disease, Irritable Bowel Disease, Pancreatitis, Peptic Ulcer Disease, Ulcerative Colitis ...LMP: 01/04/15 Infectious Disease: Yes: AIDS, HIV, STD's Psych: Yes: Other (anorexia) Additional Medical History: Neuropathy of the feet. anorexia. breast cyst removed. ovarian cyst removed. c/s for twins - Past Surgical History Past Surgical History: Yes: Breast Biopsy, , Tonsillectomy - Alcohol/Substance Use Hx Alcohol Use: Yes History of Substance Use: reports: None - Smoking History Smoking history: Current every day smoker Have you smoked in the past 12 months: Yes Aproximately how many cigarettes per day: 10 If you are a former smoker, when did you quit?: 2 months ago - Social History Usual Living Arrangement: With Child ADL: Independent Occupation: on disability History of Recent Travel: No Home Medications - Allergies Allergies/Adverse Reactions: Allergies Allergy/AdvReac Type Severity Reaction Status Date / Time Penicillins Allergy Unknown Swelling Verified 06/15/18 11:45 MAYONAISE AdvReac Uncoded 06/15/18 11:45 - Home Medications Home Medications: Ambulatory Orders Abacavir Sulfate/Lamivudine [Abacavir-Lamivudine 600-300 mg] 1 each PO DAILY 05/25 Albuterol Sulfate Inhaler - [Ventolin Hfa Inhaler -] 1 - 2 inh PO Q4H 06/15/18 Atovaquone [Mepron Oral Solution -] 750 mg PO ASDIR 06/15/18 Darunavir Ethanolate [Prezista -] 800 mg PO DAILY 06/15/18 Lactobacillus Acidophilus [Probiotic] 0 mg PO DAILY 06/15/18 Mirtazapine 15 mg PO DAILY 06/15/18 Ritonavir 100 mg PO DAILY 06/15/18 Tenofovir Disoproxil Fumarate 300 mg PO DAILY 06/15/18 Valacyclovir HCl [Valtrex -] 500 mg PO BID 06/15/18 Zolpidem Tartrate 10 mg PO HS 06/15/18 Family Disease History - Family Disease History Family Disease History: CA: Father ( prostate CA), Other: Mother (alive dementia) Review of Systems - Review of Systems Constitutional: reports: Chills Eyes: reports: No Symptoms HENT: reports: No Symptoms. denies: Difficult Swallowing Neck: reports: No Symptoms Cardiovascular: reports: No Symptoms. denies: Chest Pain Respiratory: denies: Cough Gastrointestinal: reports: No Symptoms. denies: Abdominal Pain Genitourinary: reports: No Symptoms Physical Exam Vital Signs: Vital Signs Temperature 97.9 F 06/16/18 06:23 Pulse Rate 69 06/16/18 06:23 Respiratory Rate 20 06/16/18 06:23 Blood Pressure 94/54 L 06/16/18 06:23 O2 Sat by Pulse Oximetry (%) 97 06/16/18 06:00 Constitutional: Yes: Well Nourished, No Distress, Calm Eyes: Yes: Conjunctiva Clear HENT: Yes: Atraumatic, Normocephalic. No: Thrush, Tonsillar Exudate Neck: Yes: Supple, Trachea Midline Cardiovascular: Yes: Regular Rate and Rhythm Respiratory: Yes: Regular, CTA Bilaterally Gastrointestinal: Yes: Normal Bowel Sounds, Soft ...Rectal Exam: Yes: WNL Musculoskeletal: Yes: WNL Extremities: Yes: WNL Edema: No Psychiatric: Yes: Alert, Oriented Labs: CBC, BMP 06/16/18 06:30 06/16/18 06:30 Imaging - Results Chest X-ray: Report Reviewed, Image Reviewed Problem List - Problems (1) Hypotension Assessment/Plan: improved, ?dehydration if she feels well with ambulation can f/u in clinic Code(s): I95.9 - HYPOTENSION, UNSPECIFIED Qualifiers: Hypotension type: unspecified hypotension type (2) AIDS Assessment/Plan: continue ART Code(s): B20 - HUMAN IMMUNODEFICIENCY VIRUS [HIV] DISEASE
--- NOTE | 2018-06-16 14:58 | PN ---
Teaching Attending Note Name of Resident: Renetta Grady ATTENDING PHYSICIAN STATEMENT I saw and evaluated the patient. I reviewed the resident's note and discussed the case with the resident. I agree with the resident's findings and plan as documented with exceptions below. SUBJECTIVE: Patient seen and examined. no further dizziness, feels better. OBJECTIVE: Vital Signs Period Temp Pulse Resp BP Sys/[place] Pulse Ox Last 24 Hr 97.9 F-98.6 F 67-80 16-20 91-120/54-91 97-98 Intake & Output 06/13/18 06/14/18 06/15/18 06/16/18 23:59 23:59 23:59 23:59 Intake Total 475 Balance 475 Weight 149 lb 4 oz General: sitting in bed in no acute distress Chest: CTAB, no rales or wheezing Abdomen:soft, obese, NT Extremities: no edema Laboratory Results - last 24 hr 06/15/18 06/16/18 06/16/18 18:05 06:30 06:30 WBC 2.1 L RBC 3.45 L Hgb 9.3 L Hct 28.9 L MCV 83.9 MCH 26.9 MCHC 32.1 RDW 15.9 H Plt Count 198 MPV 7.9 Absolute Neuts (auto) 1.0 L Neutrophils % 44.5 Neutrophils % (Manual) 45.7 Band Neutrophils % 0.0 Lymphocytes % 31.3 Lymphocytes % (Manual) 31.9 Monocytes % 23.4 H Monocytes % (Manual) 16 H Eosinophils % 0.4 Eosinophils % (Manual) 0.0 Basophils % 0.4 Basophils % (Manual) 1.1 D Myelocytes % (Man) 0 Promyelocytes % (Man) 0 Blast Cells % (Manual) 0 Nucleated RBC % 0 Metamyelocytes 0 Hypochromia 0 Platelet Estimate Normal Polychromasia 0 Poikilocytosis 1+ Anisocytosis 3+ Microcytosis 3+ Macrocytosis 0 Target Cells 1+ Ovalocytes 1+ Sodium 142 142 Potassium 4.5 4.4 Chloride 109 H 111 H Carbon Dioxide 27 27 Anion Gap 6 L 4 L BUN 16 14 Creatinine 1.0 0.9 Creat Clearance w eGFR 56.18 > 60 Random Glucose 89 89 Calcium 8.7 8.4 L Phosphorus 5.1 H Magnesium 2.4 Total Bilirubin 0.2 AST 29 ALT 24 Alkaline Phosphatase 89 Total Protein 7.4 Albumin 3.0 L ASSESSMENT AND PLAN: 63 yof with HIV on HAART, chronic dizziness admitted with hypotension -Hypotension, likely hypovolumia -Acute on chronic dizziness from above -Chronic Leucopenia/Neutropenia -HIV On HAART Plan: BP improved. Patient asymptomatic. Discussed with Dr. Ivey. Ok for dc. Seen by PT. Patient wants to be discharged home with services. Discussed with social work, services arranged. D/c home with services. Plan discussed with patient in detail, all questions answered.
[2018-06-16 15:13] VITALS: BP 114/71; PULSE 80; TEMP 98.5
--- NOTE | 2018-06-16 15:58 | DS ---
Physical Exam: SUBJECTIVE: Patient seen and examined at bedside this morning. No acute events overnight. Patient remained hemodynamically stable and has no new complaints. OBJECTIVE: Vital Signs Period Temp Pulse Resp BP Sys/[place] Pulse Ox Last 24 Hr 97.9 F-98.6 F 67-94 16-20 91-122/54-91 97-100 PHYSICAL EXAM GENERAL: Awake, alert, and fully oriented, in no acute distress. HEAD: Normal with no signs of trauma. EYES: PERRLA, EOMI, sclera anicteric, conjunctiva clear. EARS, NOSE, THROAT: Ears normal, nares patent, oropharynx clear without exudates. NECK: Normal range of motion, supple without lymphadenopathy, JVD, or masses. LUNGS: Breath sounds equal, clear to auscultation bilaterally. HEART: Regular rate and rhythm, normal S1 and S2 without murmur, rub or gallop. ABDOMEN: Soft, nontender, not distended, normoactive bowel sounds. MUSCULOSKELETAL: Normal range of motion at all joints. No bony deformities or tenderness. No CVA tenderness. UPPER EXTREMITIES: 2+ pulses, warm, well-perfused. No cyanosis. No clubbing. No peripheral edema. LOWER EXTREMITIES: 2+ pulses, warm, well-perfused. No calf tenderness. No peripheral edema. NEUROLOGICAL: Cranial nerves II-XII intact. Normal speech. Normal gait. PSYCHIATRIC: Cooperative. Good eye contact. Appropriate mood and affect. SKIN: Warm, dry, normal turgor, no rashes or lesions noted, normal capillary refill. LABS Laboratory Results - last 24 hr 06/15/18 06/15/18 06/16/18 15:21 18:05 06:30 WBC 2.1 L RBC 3.45 L Hgb 9.3 L Hct 28.9 L MCV 83.9 MCH 26.9 MCHC 32.1 RDW 15.9 H Plt Count 198 MPV 7.9 Absolute Neuts (auto) 1.0 L Neutrophils % 44.5 Neutrophils % (Manual) 45.7 Band Neutrophils % 0.0 Lymphocytes % 31.3 Lymphocytes % (Manual) 31.9 Monocytes % 23.4 H Monocytes % (Manual) 16 H Eosinophils % 0.4 Eosinophils % (Manual) 0.0 Basophils % 0.4 Basophils % (Manual) 1.1 D Myelocytes % (Man) 0 Promyelocytes % (Man) 0 Blast Cells % (Manual) 0 Nucleated RBC % 0 Metamyelocytes 0 Hypochromia 0 Platelet Estimate Normal Polychromasia 0 Poikilocytosis 1+ Anisocytosis 3+ Microcytosis 3+ Macrocytosis 0 Target Cells 1+ Ovalocytes 1+ Sodium 142 Potassium 4.5 Chloride 109 H Carbon Dioxide 27 Anion Gap 6 L BUN 16 Creatinine 1.0 Creat Clearance w eGFR 56.18 Random Glucose 89 Calcium 8.7 Phosphorus Magnesium Total Bilirubin AST ALT Alkaline Phosphatase Total Protein Albumin Urine Color Ltyellow Urine Appearance Clear Urine pH 6.0 Ur Specific [place] 1.015 Urine Protein Negative Urine Glucose (UA) Negative Urine Ketones Negative Urine Blood Negative Urine Nitrite Negative Urine Bilirubin Negative Urine Urobilinogen Negative Ur Leukocyte Esterase 2+ H Urine WBC (Auto) 15 Urine RBC (Auto) 16 Ur Epithelial Cells Few 06/16/18 06:30 WBC RBC Hgb Hct MCV MCH MCHC RDW Plt Count MPV Absolute Neuts (auto) Neutrophils % Neutrophils % (Manual) Band Neutrophils % Lymphocytes % Lymphocytes % (Manual) Monocytes % Monocytes % (Manual) Eosinophils % Eosinophils % (Manual) Basophils % Basophils % (Manual) Myelocytes % (Man) Promyelocytes % (Man) Blast Cells % (Manual) Nucleated RBC % Metamyelocytes Hypochromia Platelet Estimate Polychromasia Poikilocytosis Anisocytosis Microcytosis Macrocytosis Target Cells Ovalocytes Sodium 142 Potassium 4.4 Chloride 111 H Carbon Dioxide 27 Anion Gap 4 L BUN 14 Creatinine 0.9 Creat Clearance w eGFR > 60 Random Glucose 89 Calcium 8.4 L Phosphorus 5.1 H Magnesium 2.4 Total Bilirubin 0.2 AST 29 ALT 24 Alkaline Phosphatase 89 Total Protein 7.4 Albumin 3.0 L Urine Color Urine Appearance Urine pH Ur Specific [place] Urine Protein Urine Glucose (UA) Urine Ketones Urine Blood Urine Nitrite Urine Bilirubin Urine Urobilinogen Ur Leukocyte Esterase Urine WBC (Auto) Urine RBC (Auto) Ur Epithelial Cells Imaging CXR - 2 views of the chest reveal clear lungs, normal mediastinum and sharp angles. The bones and soft tissues are intact. Since 05/18/18, there is no change of an adverse nature. HOSPITAL COURSE: Date of Admission:06/15/18 Date of Discharge: 06/16/18 Patient is a 63 year old female with past medical history of Asthma, COPD, anemia, anxiety and HIV on HAART (since 2004), was sent in from [facility] due to low blood pressure, likely secondary to dehydration and poor oral intake. Patient was started on IV fluids. She was also noted to be hyperkalemic and was given Ca gluconate and Insulin/D50. Patient remained hemodynamically stable overnight, with no hypotensive episodes and was discharged home with instructions to follow-up at the [facility] and to drink plenty of water. Minutes to complete discharge: 40 Discharge Summary Reason For Visit: ANOREXIA NERVOSA/HIV/LEUKOPENIA/WEAKNESS Condition: Stable - Instructions Diet, Activity, Other Instructions: You were admitted because you were noted to have low blood pressure during your follow-up at the [facility]. This is probably due to dehydration, because you were not drinking enough water as it causes pain when voiding because of the herpes. You were given IV fluids and your blood pressure improved. You also came in with genital herpes. As instructed by Dr. Ivey, please continue taking the Valtrex even when you don't have the symptoms. Follow-up at the [facility] with Dr. Ivey within 1 week. Drink plenty of water and have a healthy diet. Avoid sudden postural changes in 1 week. Please have follow up Blood work (CBC) with Dr. Ivey in 1 week. Continue all your medications as prescribed. Call 911 or go to the ED if with any worsening fevers, chills, shortness of breath, palpitations, dizziness or any new concerns noted. Referrals: Jamila Ivey MD [Primary Care Provider] - Disposition: VNS/HOME HEALTH CARE - Home Medications Comprehensive Discharge Medication List: Ambulatory Orders Abacavir Sulfate/Lamivudine [Abacavir-Lamivudine 600-300 mg] 1 each PO DAILY 05/25 Albuterol Sulfate Inhaler - [Ventolin HFA Inhaler -] 1 - 2 inh PO Q4H 06/15/18 Atovaquone [Mepron Oral Solution -] 750 mg PO ASDIR 06/15/18 Darunavir Ethanolate [Prezista -] 800 mg PO DAILY 06/15/18 Lactobacillus Acidophilus [Probiotic] 0 mg PO DAILY 06/15/18 Mirtazapine 15 mg PO DAILY 06/15/18 Ritonavir 100 mg PO DAILY 06/15/18 Tenofovir Disoproxil Fumarate 300 mg PO DAILY 06/15/18 Valacyclovir HCl [Valtrex -] 500 mg PO BID 06/15/18 Zolpidem Tartrate 10 mg PO HS 06/15/18 This patient is new to me today: Yes Date on this admission: 06/18/18 Emergency Visit: Yes ED Registration Date: 06/15/18 Care time: The patient presented to the Emergency Department on the above date and was hospitalized for further evaluation of their emergent condition. Critical Care patient: No - Discharge Referral Referred to [facility] No
== END 2018-06-16 15:44 | disposition home health service (06) | DRG 977 ==
LOC: JER 11:38 → JERBED 15:12 → J8W 23:54
PROVIDERS: ADMIT Internal Medicine; ATTEND Hospitalist
DX: D70.3 Neutropenia due to infection (principal); B20 Human immunodeficiency virus [HIV] disease; F50.00 Anorexia nervosa, unspecified; I95.9 Hypotension, unspecified; E78.5 Hyperlipidemia, unspecified; J44.9 Chronic obstructive pulmonary disease, unspecified; D64.9 Anemia, unspecified; I10 Essential (primary) hypertension; Z68.20 Body mass index [BMI] 20.0-20.9, adult; F17.210 Nicotine dependence, cigarettes, uncomplicated; R53.83 Other fatigue; A60.00 Herpesviral infection of urogenital system, unspecified; E87.5 Hyperkalemia; R42 Dizziness and giddiness; F41.9 Anxiety disorder, unspecified; E86.0 Dehydration; E86.1 Hypovolemia
CPT/HCPCS: 36415; 71046-TC-FY; 80048; 80053; 81003; 81015; 82550; 82553; 83735; 84100; 84484; 85025; 85610; 85730; 87086; 93005; 93010; 97116-GP; 97161-GP; 99285-25; J7030

== ENCOUNTER 2018-07-30 11:06 | Inpatient (IN) | payer OTHER ==
[2018-07-30] MEDS ORDERED: SODIUM CHLORIDE 1,800 ML IV ONE (11:40)
--- NOTE | 2018-07-30 11:59 | PDOC ---
*Physical Exam - Vital Signs Last Vital Signs Temp Pulse Resp BP Pulse Ox 97.7 F 92 H 18 96/58 L 100 07/30/18 11:13 07/30/18 11:13 07/30/18 11:13 07/30/18 11:13 07/30/18 11:13 ED Treatment Course - LABORATORY CBC & Chemistry Diagram: 08/03/18 06:00 08/03/18 06:00 Medical Decision Making - Medical Decision Making 07/30/18 11:54 H/o HIV (CD4 252) Generalized weakness Recent admission for dehydration but has not improved Decreased po intake (+) diarrhea (BRB with wiping, also melena) (+) cough (prductive of yellow phlegm) (+) fevers (+) back pain Sepsis order set ordered 07/30/18 12:21 Twelve-lead EKG was performed and reviewed by me. There is normal sinus rhythm with a normal rate. The axis is normal. The intervals are normal. There are no ST or T wave abnormalities. Impression: Normal twelve-lead EKG 07/30/18 12:56 CXR - nml Laboratory Tests 07/30/18 07/30/18 12:03 12:08 VBG pH 7.37 POC VBG pCO2 47.4 POC VBG pO2 27.6 L Mixed VBG HCO3 26.8 H Influenza A (Rapid) Negative Influenza B (Rapid) Negative Pt reports weakness Seen by Dr Ivey Will place on observation *DC/Admit/Observation/Transfer Diagnosis at time of Disposition: Generalized weakness - Discharge Dispostion Condition at time of disposition: Stable - Referrals - Patient Instructions - Post Discharge Activity
--- NOTE | 2018-07-30 12:04 | PDOC ---
History of Present Illness - General Chief Complaint: Pain Stated Complaint: Cold Symptoms Time Seen by Provider: 07/30/18 11:15 History Source: Patient Exam Limitations: No Limitations - History of Present Illness Initial Comments: 63 y/o F hx of anemia, anorexia, COPD, HTN, herpes, HIV (on HAART since 2004) presents with generalized weakness x 2.5 weeks. Mentions loss of appetite and not eating or drinking much for the past few weeks. Also having persistent diarrhea with occasional BRBPR (only noted when wiping); has also noted melena in the past week (is currently not on Iron). Also mentions having productive cough with yellow-green phlegm along with subjective fever (did not check her temperature). Has nausea but denies vomiting due to poor PO intake. Patient was recently discharged on 06/2018 for hypotension (believed to be due to dehydration); patient states she just never felt like she got any better after her recent discharge. Denies rhinorrhea, nasal congestion, sore throat, sob, cp , abd pain, vomiting, urinary complaints. Denies sick contacts. 07/30/18 12:01 Past History - Past Medical History Allergies/Adverse Reactions: Allergies Allergy/AdvReac Type Severity Reaction Status Date / Time Penicillins Allergy Unknown Swelling Verified 07/30/18 11:07 MAYONAISE AdvReac Uncoded 07/30/18 11:07 Home Medications: Ambulatory Orders Abacavir Sulfate/Lamivudine [Abacavir-Lamivudine 600-300 mg] 1 each PO DAILY 05/25 Albuterol Sulfate Inhaler - [Ventolin HFA Inhaler -] 1 - 2 inh PO Q4H 06/15/18 Atovaquone [Mepron Oral Solution -] 750 mg PO ASDIR 06/15/18 Darunavir Ethanolate [Prezista -] 800 mg PO DAILY 06/15/18 Lactobacillus Acidophilus [Probiotic] 0 mg PO DAILY 06/15/18 Mirtazapine 15 mg PO DAILY 06/15/18 Ritonavir 100 mg PO DAILY 06/15/18 Tenofovir Disoproxil Fumarate 300 mg PO DAILY 06/15/18 Valacyclovir HCl [Valtrex -] 500 mg PO BID 06/15/18 Zolpidem Tartrate 10 mg PO HS 06/15/18 Anemia: Yes Asthma: No Cancer: No Cardiac Disorders: No CVA: No COPD: Yes CHF: No DVT: No Dementia: No Diabetes: No GI Disorders: Yes (GERD) Disorders: No HTN: Yes Hypercholesterolemia: No Liver Disease: No Psychiatric Problems: Yes (ANXIETY) Seizures: No - Surgical History Abdominal Surgery: Yes (EXPLORATORY) - Immunization History Immunization Up to Date: Yes - Suicide/Smoking/Psychosocial Hx Smoking Status: No Smoking History: Unknown if ever smoked Have you smoked in the past 12 months: Yes Number of Cigarettes Smoked Daily: 10 If you are a former smoker, when did you quit?: 2 months ago Cigars Per Day: 0 'Breaking Loose' booklet given: 12/15/17 Hx Alcohol Use: Yes Drug/Substance Use Hx: No Substance Use Type: None Hx Substance Use Treatment: No Review of Systems - Review of Systems Comments:: See HPI 07/30/18 12:07 *Physical Exam - Vital Signs Last Vital Signs Temp Pulse Resp BP Pulse Ox 97.7 F 92 H 18 96/58 L 100 07/30/18 11:13 07/30/18 11:13 07/30/18 11:13 07/30/18 11:13 07/30/18 11:13 - Physical Exam General Appearance: Yes: Thin. No: Apparent Distress HEENT: positive: JOHNNA. negative: Muffled/Hoarse voice, Pharyngeal Erythema, Tonsillar Exudate, Tonsillar Erythema, Nasal Congestion, Rhinorrhea, Thrush Respiratory/Chest: positive: Lungs Clear, Normal Breath Sounds. negative: Respiratory Distress, Accessory Muscle Use, Labored Respiration Cardiovascular: positive: Regular Rhythm, Regular Rate, S1, S2. negative: Murmur Gastrointestinal/Abdominal: positive: Tender (Mild TTP along epigastric site), Flat. negative: Distended, Guarding, Rebound, Mass Rectal Exam: positive: other (+Hemorrhoids noted (not thrombosed, not bleeding) , +skin sore along rectal site (no lesions noted), unable to perform guaiac given patient uncomfortable from skin sore site) Extremity: positive: Normal Inspection. 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 negative: Facial Droop, Confused, Disoriented ED Treatment Course - LABORATORY CBC & Chemistry Diagram: 07/30/18 12:08 07/30/18 12:08 - RADIOLOGY Radiology Studies Ordered: Category Date Time Status CHEST X-RAY PORTABLE* [RAD] Stat Radiology 07/30/18 11:40 Ordered Medical Decision Making - Medical Decision Making 63 y/o F hx of anemia, anorexia, COPD, HTN, herpes, HIV (on HAART since 2004) presents with subjective fever, generalized weakness, cough, diarrhea, BRBPR, melena and poor PO intake for past 2-3 weeks. Patient's rectal temp was 99.1. Unable to perform guaiac. Unable to find any recent colonoscopy reports. Given immunosuppressed, sepsis set was ordered. Patient started on 1 L NS IVF bolus. Will get labs, UA, EKG, CXR, influenza swab, stool culture, urine culture, C. diff culture, blood culture, type and screen. Patient likely to be admitted. 07/30/18 12:09 Patient's labs unremarkable Abnormal Lab Results 07/30/18 07/30/18 07/30/18 12:08 12:08 12:08 WBC 2.2 L Absolute Neuts (auto) 1.2 L Monocytes % 19.6 H POC VBG pO2 27.6 L Mixed VBG HCO3 26.8 H Calcium 8.3 L AST 133 H ALT 72 H Total Protein 9.0 H Urine Protein Urine Blood Ur Leukocyte Esterase 07/30/18 14:00 WBC Absolute Neuts (auto) Monocytes % POC VBG pO2 Mixed VBG HCO3 Calcium AST ALT Total Protein Urine Protein 1+ H Urine Blood 1+ H Ur Leukocyte Esterase 2+ H WBC is 2.2, ANC is 1.2 Electrolytes are normal, EKG unremarkable with no ischemic changes Slightly elevated AST noted CXR and UA negative Patient is tolerating liquids here and no episode of diarrhea noted while in ED Case discussed with patient's ID, Dr. Jamila Ivey - endorses patient with poor follow-up as outpatient Patient admitted as observation under Dr. Yarbrough 07/30/18 15:26 07/30/18 15:29 *DC/Admit/Observation/Transfer Diagnosis at time of Disposition: Generalized weakness - Discharge Dispostion Condition at time of disposition: Stable Decision to Admit order: Yes - Referrals Referrals: Jamila Ivey MD [Primary Care Provider] - - Patient Instructions - Post Discharge Activity
[2018-07-30 12:23] LABS: VENOUS PC02 47.4 mmHg (38-52); VENOUS PH 7.37 (7.32-7.42); VENOUS PO2 27.6 mmHg (28-48)
[2018-07-30 13:10] LABS: BASO % 0.8 % (0-2.0); EOS % 0.2 % (0-4.5); HEMATOCRIT 34.4 % (32.4-45.2); LYMPH % 24.6 % (8-40); MCH 26.5 pg (25.7-33.7); MCHC 32.1 g/dl (32.0-36.0); MEAN CELL VOLUME 82.5 fl (80-96); MEAN PLT VOLUME 9.5 fl (7.5-11.1); MONO % 19.6 % (3.8-10.2); NEUT % 54.8 % (42.8-82.8); PLATELET COUNT 119 K/MM3 (134-434); RBC 4.17 M/mm3 (3.60-5.2); RDW 14.2 % (11.6-15.6); WHITE BLOOD COUNT 2.2 K/mm3 (4.0-10.0)
[2018-07-30 13:29] LABS: ALBUMIN 3.7 g/dl (3.4-5.0); ALK PHOS 93 U/L (45-117); ANION GAP 10 MMOL/L (8-16); BILIRUBIN,TOTAL 0.4 mg/dL (0.2-1); BLOOD UREA NITROGEN 13 mg/dL (7-18); CALCIUM 8.3 mg/dL (8.5-10.1); CHLORIDE 103 mmol/L (98-107); CO2 25 mmol/L (21-32); CREATININE 1.2 mg/dL (0.55-1.3); GLUCOSE,RANDOM 88 mg/dL (74-106); POTASSIUM 4.3 mmol/L (3.5-5.1); SGOT/AST 133 U/L (15-37); SGPT/ALT 72 U/L (13-61); SODIUM 138 mmol/L (136-145)
[2018-07-30 13:56] LABS: MAGNESIUM 2.2 mg/dL (1.8-2.4)
[2018-07-30 14:32] LABS: URINE APPEARANCE SLCLOUDY; URINE BILIRUBIN NEGATIVE (<2.0 mg/dL); URINE COLOR YELLOW; URINE GLUCOSE (UA) NEGATIVE (NEGATIVE); URINE KETONE NEGATIVE (NEGATIVE); URINE LEUK ESTERASE 2+ (NEGATIVE); URINE NITRITE NEGATIVE (NEGATIVE); URINE PROTEIN 1+ (NEGATIVE); URINE UROBILINOGEN NEGATIVE mg/dL (0.2-1.0)
[2018-07-30 15:14] LABS: EPI CELLS RARE /HPF (FEW); URINE HYALINE CAST 15 /lpf; URINE MUCUS RARE
--- NOTE | 2018-07-30 16:16 | CON.ID ---
Consult Consult Specialty:: infectious disease Referred by:: ER - dr moreno Reason for Consultation:: HIV positive - History of Present Illness Chief Complaint: not eating for one week due to diarrhea, +blood in stools History of Present Illness: 63 yo female who comes to [facility] history of aids, anorexia nervosa- reports doing poorly for last several weeks. Stopped her HIV meds 3 weeks ago because the meds were making her feel sick had fevers that stopped several days ago +diarrhea every time she eats- +blood in her stools so she stopped eating one week ago has been getting progressively weaker +low back pain no headache, no trouble swallowing no rash last cd4 and viral load from 06/01- 6579 viral load, cd4 252 - History Source History Provided By: Patient - Past Medical History SHOP DIRECTOR: Yes: Peripheral Neuropathy. No: Alzheimer's, CVA, Dementia, Migraine, Multiple Sclerosis, Parkinson's, Seizure, Syncope, TIA, Vertigo, Other Pulmonary: Yes: COPD, Pneumonia Gastrointestinal: Yes: Other (Meredith Esophagitis from EGD 06/19/14). No: Ascites, Cancer, Constipation, Crohn's Disease, Diverticulitis, Diverticulosis, Esophageal Varices, Gastritis, GERD, GI Bleed, Hemorrhoids, Hiatal Hernia, Inflamatory Bowel Disease, Irritable Bowel Disease, Pancreatitis, Peptic Ulcer Disease, Ulcerative Colitis ...LMP: 01/04/15 Infectious Disease: Yes: AIDS, HIV, STD's Psych: Yes: Other (anorexia) Additional Medical History: Neuropathy of the feet. anorexia. breast cyst removed. ovarian cyst removed. c/s for twins - Past Surgical History Past Surgical History: Yes: Breast Biopsy, , Tonsillectomy - Alcohol/Substance Use Hx Alcohol Use: Yes History of Substance Use: reports: None - Smoking History Smoking history: Former smoker Have you smoked in the past 12 months: Yes Aproximately how many cigarettes per day: 10 If you are a former smoker, when did you quit?: 2 months ago - Social History Usual Living Arrangement: With Child ADL: Independent Occupation: on disability History of Recent Travel: Yes ([place] 07/13 to 07/18) Home Medications - Allergies Allergies/Adverse Reactions: Allergies Allergy/AdvReac Type Severity Reaction Status Date / Time Penicillins Allergy Unknown Swelling Verified 07/30/18 11:07 MAYONAISE AdvReac Uncoded 07/30/18 11:07 - Home Medications Home Medications: Ambulatory Orders Abacavir Sulfate/Lamivudine [Abacavir-Lamivudine 600-300 mg] 1 each PO DAILY 05/25 Albuterol Sulfate Inhaler - [Ventolin HFA Inhaler -] 1 - 2 inh PO Q4H 06/15/18 Atovaquone [Mepron Oral Solution -] 750 mg PO ASDIR 06/15/18 Darunavir Ethanolate [Prezista -] 800 mg PO DAILY 06/15/18 Lactobacillus Acidophilus [Probiotic] 0 mg PO DAILY 06/15/18 Mirtazapine 15 mg PO DAILY 06/15/18 Ritonavir 100 mg PO DAILY 06/15/18 Tenofovir Disoproxil Fumarate 300 mg PO DAILY 06/15/18 Valacyclovir HCl [Valtrex -] 500 mg PO BID 06/15/18 Zolpidem Tartrate 10 mg PO HS 06/15/18 Family Disease History - Family Disease History Family Disease History: CA: Father ( prostate CA), Other: Mother (alive dementia) Review of Systems - Review of Systems Constitutional: reports: Lethargy, Loss of Appetite, Unintentional Wgt. Loss, Weakness Eyes: reports: No Symptoms HENT: reports: No Symptoms. denies: Difficult Swallowing Neck: reports: No Symptoms Cardiovascular: reports: No Symptoms. denies: Chest Pain Respiratory: denies: Cough, SOB Gastrointestinal: reports: Diarrhea, Rectal Bleeding. denies: Abdominal Pain Genitourinary: reports: No Symptoms Psychiatric: reports: Depression (denies suicidal ideation) Physical Exam Vital Signs: Vital Signs Temperature 99.1 F 07/30/18 12:16 Pulse Rate 92 H 07/30/18 12:16 Respiratory Rate 18 07/30/18 12:16 Blood Pressure 96/58 L 07/30/18 12:16 O2 Sat by Pulse Oximetry (%) 100 07/30/18 11:13 Constitutional: Yes: Thin HENT: Yes: Atraumatic, Normocephalic, Other (dry oral mucosa). No: Thrush Neck: Yes: Supple Cardiovascular: Yes: Regular Rate and Rhythm Respiratory: Yes: CTA Bilaterally Gastrointestinal: Yes: Normal Bowel Sounds, Soft. No: Tenderness, Epigastrium ...Rectal Exam: Yes: Deferred Extremities: Yes: WNL Edema: No Integumentary: Yes: WNL Neurological: Yes: Alert, Oriented Psychiatric: Yes: Alert, Oriented Labs: CBC, BMP 07/30/18 12:08 07/30/18 12:08 blood/urine culture pending Imaging - Results Chest X-ray: Report Reviewed, Image Reviewed Problem List - Problems (1) Acute gastroenteritis Code(s): K52.9 - NONINFECTIVE GASTROENTERITIS AND COLITIS, UNSPECIFIED (2) Weakness Code(s): R53.1 - WEAKNESS (3) AIDS Code(s): B20 - HUMAN IMMUNODEFICIENCY VIRUS [HIV] DISEASE (4) Dehydration Code(s): E86.0 - DEHYDRATION (5) Blood in stool Code(s): K92.1 - MELENA (6) Anorexia nervosa Code(s): F50.00 - ANOREXIA NERVOSA, UNSPECIFIED Assessment/Plan Hold HIV meds for now-she has not taken for three weeks continue hydration stool for wbc, culture and cryptosporidium (prior history) stool cdiff stool occult blood and anemia/GI work up as needed history of anorexia nervosa
[2018-07-30] MEDS ORDERED: ATOVAQUONE 750 MG PO SCH (16:45)
[2018-07-30] MEDS ORDERED: DEXTROSE 5%-0.45% SALINE 1,000 ML IV SCH (16:45)
[2018-07-30 16:53] LABS: ANISOCYTOSIS 0; MACROCYTOSIS 0; PLATELET ESTIMATE DECREASED
[2018-07-30 19:24] VITALS: BMI 18.8
--- NOTE | 2018-07-30 19:32 | HP ---
CHIEF COMPLAINT: Weakness, loss of appetite, diarrhea PCP: Dr. Ivey HISTORY OF PRESENT ILLNESS: 63 year old female with a PMH significant for HIV (on HAART since 2004), HTN, COPD, Anemia, anorexia, and herpes presented to the ED with several weeks of diarrhea occasional BRBPR (only noted when wiping), loss of appetite, nausea, productie cough withe yellow phlegm and weakness for the past several weeks. She noticed her stool occasionally being dark in color over the past week (not currently on Fe) Patient was recently admitted to [facility] last month for hypotension secondary to dehydration. Denies dizziness, syncope, seizures, SOB , chest pain, palpitations. Upon admission to the ED, rectal temp was 99.1. Work-up was unremarkable: Labs, UA, EKG, CXR. Patient was given a bolus of 1 L NS and temperature returned to normal. Patient reports feeling much better after having received the fluid. Recent Travel: No PAST MEDICAL HISTORY: HIV (on HAART since 2004) HTN COPD Anemia anorexia Herpes PAST SURGICAL HISTORY: Breast biopsy Tonsillectomy LEEP D/c with hysteroscopy Social History: Smokin-6 cigarettes/week for more than 40 years Alcohol: Occasional Drugs: Prior inhaled cocaine use, quite 10 years ago Family History: Father: Prostate Ca, Mother: Dementia Allergies Penicillins Allergy (Unknown, Verified 07/30/18 11:07) Swelling MAYONAISE Adverse Reaction (Uncoded 07/30/18 11:07) HOME MEDICATIONS: Home Medications Medication Instructions Recorded Abacavir Sulfate/Lamivudine 1 each PO DAILY 06/15/18 [Abacavir-Lamivudine 600-300 mg] Albuterol Sulfate Inhaler - 1 - 2 inh PO Q4H 06/15/18 [Ventolin HFA Inhaler -] Atovaquone [Mepron Oral Solution -] 750 mg PO ASDIR 06/15/18 Darunavir Ethanolate [Prezista -] 800 mg PO DAILY 06/15/18 Lactobacillus Acidophilus 0 mg PO DAILY 06/15/18 [Probiotic] Mirtazapine 15 mg PO DAILY 06/15/18 Ritonavir 100 mg PO DAILY 06/15/18 Tenofovir Disoproxil Fumarate 300 mg PO DAILY 06/15/18 Valacyclovir HCl [Valtrex -] 500 mg PO BID 06/15/18 Zolpidem Tartrate 10 mg PO HS 06/15/18 REVIEW OF SYSTEMS CONSTITUTIONAL: Absent: fever, chills, diaphoresis, generalized weakness, malaise, loss of appetite, weight change HEENT: Absent: rhinorrhea, nasal congestion, throat pain, throat swelling, difficulty swallowing, mouth swelling, ear pain, eye pain, visual changes CARDIOVASCULAR: Absent: chest pain, syncope, palpitations, irregular heart rate, lightheadedness , peripheral edema RESPIRATORY: Absent: cough, shortness of breath, dyspnea with exertion, orthopnea, wheezing, stridor, hemoptysis GASTROINTESTINAL: Absent: abdominal pain, abdominal distension, nausea, vomiting, diarrhea, constipation, melena, hematochezia GENITOURINARY: Absent: dysuria, frequency, urgency, hesitancy, hematuria, flank pain, genital pain MUSCULOSKELETAL: Absent: myalgia, arthralgia, joint swelling, back pain, neck pain SKIN: Absent: rash, itching, pallor HEMATOLOGIC/IMMUNOLOGIC: Absent: easy bleeding, easy bruising, lymphadenopathy, frequent infections ENDOCRINE: Absent: unexplained weight gain, unexplained weight loss, heat intolerance, cold intolerance NEUROLOGIC: Absent: headache, focal weakness or paresthesias, dizziness, unsteady gait, seizure, mental status changes, bladder or bowel incontinence PSYCHIATRIC: Absent: anxiety, depression, suicidal or homicidal ideation, hallucinations. PHYSICAL EXAMINATION Vital Signs - 24 hr 07/30/18 07/30/18 07/30/18 11:13 12:16 16:27 Temperature 97.7 F 99.1 F 97.3 F L Pulse Rate 92 H 92 H Pulse Rate [ 72 Right Radial] Respiratory 18 18 Rate Blood Pressure 96/58 L 96/58 L Blood Pressure 96/70 [Right Arm] O2 Sat by Pulse 100 100 Oximetry (%) 07/30/18 18:00 Temperature 98.5 F Pulse Rate 84 Pulse Rate [ Right Radial] Respiratory 18 Rate Blood Pressure 112/74 Blood Pressure [Right Arm] O2 Sat by Pulse 100 Oximetry (%) GENERAL: Awake, alert, and fully oriented, in no acute distress. HEAD: Normal with no signs of trauma. EYES: Pupils equal, round and reactive to light, extraocular movements intact, sclera anicteric, conjunctiva clear. No lid lag. EARS, NOSE, THROAT: Ears normal, nares patent, oropharynx clear without exudates. Moist mucous membranes. NECK: Normal range of motion, supple without lymphadenopathy, JVD, or masses. LUNGS: Breath sounds equal, clear to auscultation bilaterally. No wheezes, and no crackles. No accessory muscle use. HEART: Regular rate and rhythm, normal S1 and S2 without murmur, rub or gallop. ABDOMEN: Soft, nontender, not distended, normoactive bowel sounds, no guarding, no rebound, no masses. No hepatomegaly or splenomegaly. MUSCULOSKELETAL: Normal range of motion at all joints. No bony deformities or tenderness. No CVA tenderness. UPPER EXTREMITIES: 2+ pulses, warm, well-perfused. No cyanosis. No clubbing. No peripheral edema. LOWER EXTREMITIES: 2+ pulses, warm, well-perfused. No calf tenderness. No peripheral edema. NEUROLOGICAL: Cranial nerves II-XII intact. Normal speech. Normal gait. PSYCHIATRIC: Cooperative. Good eye contact. Appropriate mood and affect. SKIN: Warm, dry, normal turgor, no rashes or lesions noted, normal capillary refill. Laboratory Results - last 24 hr 07/30/18 07/30/18 07/30/18 12:03 12:08 12:08 WBC 2.2 L RBC 4.17 Hgb 11.0 Hct 34.4 MCV 82.5 MCH 26.5 MCHC 32.1 RDW 14.2 D Plt Count 119 L D MPV 9.5 D Absolute Neuts (auto) 1.2 L Neutrophils % 54.8 D Neutrophils % (Manual) 47.5 Band Neutrophils % 5.0 Lymphocytes % 24.6 Lymphocytes % (Manual) 18.2 D Monocytes % 19.6 H Monocytes % (Manual) 19 H Eosinophils % 0.2 D Eosinophils % (Manual) 0.0 Basophils % 0.8 Basophils % (Manual) 0.0 Myelocytes % (Man) 0 Promyelocytes % (Man) 0 Blast Cells % (Manual) 0 Nucleated RBC % 0 Metamyelocytes 0 Hypochromia 0 Platelet Estimate Decreased Polychromasia 0 Poikilocytosis 0 Anisocytosis 0 Microcytosis 0 Macrocytosis 0 PT with INR Cancelled INR Cancelled PTT (Actin FS) Cancelled VBG pH POC VBG pCO2 POC VBG pO2 Mixed VBG HCO3 Sodium Potassium Chloride Carbon Dioxide Anion Gap BUN Creatinine Creat Clearance w eGFR Random Glucose Lactic Acid Calcium Magnesium Total Bilirubin AST ALT Alkaline Phosphatase Troponin I Total Protein Albumin Urine Color Urine Appearance Urine pH Ur Specific [place] Urine Protein Urine Glucose (UA) Urine Ketones Urine Blood Urine Nitrite Urine Bilirubin Urine Urobilinogen Ur Leukocyte Esterase Urine WBC (Auto) Urine RBC (Auto) Ur Epithelial Cells Hyaline Casts Urine Mucus Influenza A (Rapid) Negative Influenza B (Rapid) Negative Blood Type Antibody Screen 07/30/18 07/30/18 07/30/18 12:08 12:08 12:08 WBC RBC Hgb Hct MCV MCH MCHC RDW Plt Count MPV Absolute Neuts (auto) Neutrophils % Neutrophils % (Manual) Band Neutrophils % Lymphocytes % Lymphocytes % (Manual) Monocytes % Monocytes % (Manual) Eosinophils % Eosinophils % (Manual) Basophils % Basophils % (Manual) Myelocytes % (Man) Promyelocytes % (Man) Blast Cells % (Manual) Nucleated RBC % Metamyelocytes Hypochromia Platelet Estimate Polychromasia Poikilocytosis Anisocytosis Microcytosis Macrocytosis PT with INR INR PTT (Actin FS) VBG pH 7.37 POC VBG pCO2 47.4 POC VBG pO2 27.6 L Mixed VBG HCO3 26.8 H Sodium 138 Potassium 4.3 Chloride 103 Carbon Dioxide 25 Anion Gap 10 BUN 13 Creatinine 1.2 Creat Clearance w eGFR 45.52 Random Glucose 88 Lactic Acid Calcium 8.3 L Magnesium 2.2 Total Bilirubin 0.4 AST 133 H ALT 72 H Alkaline Phosphatase 93 Troponin I < 0.02 Total Protein 9.0 H Albumin 3.7 Urine Color Urine Appearance Urine pH Ur Specific [place] Urine Protein Urine Glucose (UA) Urine Ketones Urine Blood Urine Nitrite Urine Bilirubin Urine Urobilinogen Ur Leukocyte Esterase Urine WBC (Auto) Urine RBC (Auto) Ur Epithelial Cells Hyaline Casts Urine Mucus Influenza A (Rapid) Influenza B (Rapid) Blood Type O POSITIVE Antibody Screen Negative 07/30/18 07/30/18 12:30 14:00 WBC RBC Hgb Hct MCV MCH MCHC RDW Plt Count MPV Absolute Neuts (auto) Neutrophils % Neutrophils % (Manual) Band Neutrophils % Lymphocytes % Lymphocytes % (Manual) Monocytes % Monocytes % (Manual) Eosinophils % Eosinophils % (Manual) Basophils % Basophils % (Manual) Myelocytes % (Man) Promyelocytes % (Man) Blast Cells % (Manual) Nucleated RBC % Metamyelocytes Hypochromia Platelet Estimate Polychromasia Poikilocytosis Anisocytosis Microcytosis Macrocytosis PT with INR INR PTT (Actin FS) VBG pH POC VBG pCO2 POC VBG pO2 Mixed VBG HCO3 Sodium Potassium Chloride Carbon Dioxide Anion Gap BUN Creatinine Creat Clearance w eGFR Random Glucose Lactic Acid 1.8 Calcium Magnesium Total Bilirubin AST ALT Alkaline Phosphatase Troponin I Total Protein Albumin Urine Color Yellow Urine Appearance Slcloudy Urine pH 6.0 Ur Specific [place] 1.020 Urine Protein 1+ H Urine Glucose (UA) Negative Urine Ketones Negative Urine Blood 1+ H Urine Nitrite Negative Urine Bilirubin Negative Urine Urobilinogen Negative Ur Leukocyte Esterase 2+ H Urine WBC (Auto) 6 Urine RBC (Auto) 1 Ur Epithelial Cells Rare Hyaline Casts 15 Urine Mucus Rare Influenza A (Rapid) Influenza B (Rapid) Blood Type Antibody Screen Imaging CXR: no acute pathology 12 lead ECG: NSR, no ST or T wave abnormalities ASSESSMENT/PLAN: 63 year old female with a PMH significant for HIV (on HAART since 2004), HTN, COPD, Anemia, anorexia, and herpes presented to the ED with several weeks of diarrhea occasional BRBPR (only noted when wiping), loss of appetite, and weakness for the past several weeks. Upon admission to the ED, temperature was 99.1. She was given IV fluids and placed on observation for further GI work up. Gastritis - Stool culture and cryptosporidium pending - C-Dif PCR pending Blood in Stool - H&H stable; 11.0/34.4, monitor - FOB pending HIV - Followed by Dr. Ivey - Hold HIV medications for now as she has not taken in 3 weeks. Loss of appetite - Continue Remeron 15 mg PO QHS Lower Back Pain - Chronic - Patient reports 03/16 pain - Tramadol 50 mg q4h PRN Insomnia - Ambien 10 mg PO QHS PRN FEN - PO intake adequate - Replete as indicated - Regular diet FULL Code Visit type - Emergency Visit Emergency Visit: Yes ED Registration Date: 07/30/18 Care time: The patient presented to the Emergency Department on the above date and was hospitalized for further evaluation of their emergent condition. - New Patient This patient is new to me today: Yes Date on this admission: 07/30/18 - Critical Care Critical Care patient: No
[2018-07-30] MEDS ORDERED: valACYclovir HCL 500 MG TABLET (FP) PO SCH (22:00)
[2018-07-30] MEDS: ZOLPIDEM TARTRATE 5 MG TABLET PO PRN (22:47)
[2018-07-30] MEDS: traMADol HCL 50 MG TABLET PO PRN (22:48)
[2018-07-30] MEDS: MIRTAZAPINE 15 MG TABLET (FP) PO SCH (22:49)
[2018-07-31] MEDS ORDERED: ATOVAQUONE 750 MG/5 ML SUSPENSION PO SCH (08:00)
[2018-07-31 09:04] LABS: HEMATOCRIT 28.5 % (32.4-45.2); HEMOGLOBIN 9.7 GM/dL (10.7-15.3); MCH 27.9 pg (25.7-33.7); MCHC 33.9 g/dl (32.0-36.0); MEAN CELL VOLUME 82.2 fl (80-96); MEAN PLT VOLUME 8.8 fl (7.5-11.1); PLATELET COUNT 109 K/MM3 (134-434); RBC 3.46 M/mm3 (3.60-5.2); RDW 14.5 % (11.6-15.6)
[2018-07-31 09:07] LABS: INR 0.95 (0.83-1.09); PROTHROMBIN TIME (PATIENT) 11.2 SEC (9.7-13.0)
[2018-07-31 09:09] LABS: ACTIVATED PTT 31.1 SECONDS (25.2-36.5); WHITE BLOOD COUNT 1.6 K/mm3 (4.0-10.0)
[2018-07-31 09:27] LABS: ANION GAP 8 MMOL/L (8-16); BLOOD UREA NITROGEN 13 mg/dL (7-18); CALCIUM 8.1 mg/dL (8.5-10.1); CHLORIDE 109 mmol/L (98-107); CO2 26 mmol/L (21-32); CREATININE 0.9 mg/dL (0.55-1.3); GLUCOSE,RANDOM 79 mg/dL (74-106); MAGNESIUM 2.1 mg/dL (1.8-2.4); SODIUM 143 mmol/L (136-145)
[2018-07-31] MEDS ORDERED: PATIENT'S OWN MEDICATION (NON-FORMULARY) (Abacavir Sulfate/Lamivudine [Abacavir-Lamivudine PO SCH (10:00)
[2018-07-31] MEDS ORDERED: TENOFOVIR DISOPROXIL FUMARATE 300 MG TABLET PO SCH (10:00)
[2018-07-31] MEDS ORDERED: DARUNAVIR ETHANOLATE 800 MG TAB PO SCH (10:00)
[2018-07-31] MEDS ORDERED: RITONAVIR 100 MG TABLET PO SCH (10:00)
[2018-07-31] MEDS ORDERED: ABACAVIR SULFATE 300 MG TABLET PO SCH (10:00)
--- NOTE | 2018-07-31 12:05 | EKG ---
Test Reason : Blood Pressure : / mmHG Vent. Rate : 080 BPM Atrial Rate : 080 BPM P-R Int : 166 ms QRS Dur : 082 ms QT Int : 400 ms P-R-T Axes : 061 074 076 degrees QTc Int : 461 ms NORMAL SINUS RHYTHM ST ELEVATIONS IN EARLY REPOLARIZATION PATTERN (NORMAL VARIANT) WHEN COMPARED WITH ECG OF 15-JUN-2018 12:39, NO SIGNIFICANT CHANGE WAS FOUND Confirmed by LORELEI MO MD ([id number]) on 07/31/2018 12:05:27 PM Referred By: Confirmed By:LORELEI MO MD
[2018-07-31 17:56] LABS: HEMATOCRIT 28.2 % (32.4-45.2); HEMOGLOBIN 9.6 GM/dL (10.7-15.3); MCH 27.9 pg (25.7-33.7); MCHC 34.1 g/dl (32.0-36.0); MEAN PLT VOLUME 9.1 fl (7.5-11.1); PLATELET COUNT 112 K/MM3 (134-434); RBC 3.44 M/mm3 (3.60-5.2); RDW 14.8 % (11.6-15.6); WHITE BLOOD COUNT 2.2 K/mm3 (4.0-10.0)
--- NOTE | 2018-07-31 19:53 | PN ---
Physical Exam: SUBJECTIVE: Patient seen and examined, reports she is feeling better than yesterday. She reports she has been eating well. Has not had any diarrhea since admission. OBJECTIVE: Vital Signs Period Temp Pulse Resp BP Sys/Inman Pulse Ox Last 24 Hr 98 F-98.3 F 76-87 18-18 97-110/64-74 99-99 GENERAL: Thin, awake, alert, and fully oriented, in no acute distress. HEAD: Normal with no signs of trauma. EYES: Pupils equal, round and reactive to light, extraocular movements intact, sclera anicteric, conjunctiva clear. No lid lag. EARS, NOSE, THROAT: Ears normal, nares patent, oropharynx clear without exudates. Moist mucous membranes. NECK: Normal range of motion, supple without lymphadenopathy, JVD, or masses. LUNGS: Breath sounds equal, clear to auscultation bilaterally. No wheezes, and no crackles. No accessory muscle use. HEART: Regular rate and rhythm, normal S1 and S2 without murmur, rub or gallop. ABDOMEN: Soft, nontender, not distended, normoactive bowel sounds, no guarding, no rebound, no masses. No hepatomegaly or splenomegaly. MUSCULOSKELETAL: Normal range of motion at all joints. No bony deformities or tenderness. No CVA tenderness. UPPER EXTREMITIES: 2+ pulses, warm, well-perfused. No cyanosis. No clubbing. No peripheral edema. LOWER EXTREMITIES: 2+ pulses, warm, well-perfused. No calf tenderness. No peripheral edema. NEUROLOGICAL: No facial droop, normal speech. Normal gait. PSYCHIATRIC: Cooperative. Good eye contact. Appropriate mood and affect. SKIN: Generalized dryness and scaliness Laboratory Results - last 24 hr 07/31/18 07/31/18 07/31/18 07:40 07:40 07:40 WBC 1.6 L* RBC 3.46 L Hgb 9.7 L Hct 28.5 L D MCV 82.2 MCH 27.9 MCHC 33.9 RDW 14.5 Plt Count 109 L MPV 8.8 PT with INR 11.20 INR 0.95 PTT (Actin FS) 31.1 Sodium 143 Potassium 4.0 Chloride 109 H Carbon Dioxide 26 Anion Gap 8 BUN 13 Creatinine 0.9 Creat Clearance w eGFR > 60 Random Glucose 79 Calcium 8.1 L Magnesium 2.1 Creatine Kinase 60 07/31/18 17:36 WBC 2.2 L RBC 3.44 L Hgb 9.6 L Hct 28.2 L MCV 82.0 MCH 27.9 MCHC 34.1 RDW 14.8 Plt Count 112 L MPV 9.1 PT with INR INR PTT (Actin FS) Sodium Potassium Chloride Carbon Dioxide Anion Gap BUN Creatinine Creat Clearance w eGFR Random Glucose Calcium Magnesium Creatine Kinase Active Medications Generic Name Dose Route Start Last Admin Trade Name Freq PRN Reason Stop Dose Admin Abacavir Sulfate 600 mg 07/31/18 10:00 Ziagen - PO DAILY COUNT INCLUDES THE [facility] Atovaquone 750 mg 07/31/18 08:00 Mepron - PO BIDWM SHERI Darunavir 800 mg 07/31/18 10:00 Prezista - PO DAILY SHERI Lamivudine 300 mg 07/31/18 10:00 Epivir - PO DAILY SHERI Mirtazapine 15 mg 07/30/18 22:00 07/30/18 22:49 Remeron - PO 15 mg HS SHERI Administration Ritonavir 100 mg 07/31/18 10:00 Norvir - PO DAILY COUNT INCLUDES THE [facility] Tenofovir Disoproxil Fumarate 300 mg 07/31/18 10:00 Viread - PO DAILY SHERI Tramadol HCl 50 mg 07/30/18 18:44 07/30/18 22:48 Ultram - PO 50 mg Q4H PRN Administration PAIN LEVEL 6-10 Valacyclovir HCl 500 mg 07/30/18 22:00 07/30/18 22:49 Valtrex - PO 500 mg BID SHERI Administration Zolpidem Tartrate 10 mg 07/30/18 22:00 07/30/18 22:47 Ambien - PO 10 mg HS PRN Administration INSOMNIA Imaging CXR: no acute pathology 12 lead ECG: NSR, no ST or T wave abnormalities ASSESSMENT/PLAN: 63 year old female with a PMH significant for HIV (on HAART since 2004), HTN, COPD, Anemia, anorexia, and herpes presented to the ED with several weeks of diarrhea occasional BRBPR (only noted when wiping), loss of appetite, and weakness for the past several weeks. Upon admission to the ED, temperature was 99.1. She was given IV fluids and placed on observation for further GI work up. Gastritis - No episodes of diarrhea since admission - Stool culture and cryptosporidium pending - C-Dif PCR pending Leukopenia - WBC 1.6 -> 2.2 - Placed on neutropenic precautions then d/shavon once improved - Monitor CBC Blood in Stool - H&H stable; 11.0/34.4 ->9.6/28.2 - FOB pending HIV - Followed by Dr. Ivey - Hold HIV medications for now as she has not taken in 3 weeks. Loss of appetite - Continue Remeron 15 mg PO QHS Lower Back Pain - Chronic - Patient reports 03/16 pain - Tramadol 50 mg q4h PRN Insomnia - Ambien 10 mg PO QHS PRN FEN - PO intake adequate - Replete as indicated - Regular diet FULL Code Visit type - Emergency Visit Emergency Visit: No - New Patient This patient is new to me today: No - Critical Care Critical Care patient: No
[2018-07-31] MEDS: traMADol HCL 50 MG TABLET PO PRN (21:19)
[2018-07-31] MEDS: MIRTAZAPINE 15 MG TABLET (FP) PO SCH (21:19)
[2018-07-31] MEDS: ZOLPIDEM TARTRATE 5 MG TABLET PO PRN (21:19)
[2018-08-01] MEDS ORDERED: PT OWN MED DRAWER 7, Y5N ONE ×2 (06:43→21:21)
[2018-08-01 08:41] LABS: HEMOGLOBIN 9.5 GM/dL (10.7-15.3); MCH 26.2 pg (25.7-33.7); MCHC 31.6 g/dl (32.0-36.0); PLATELET COUNT 119 K/MM3 (134-434); RBC 3.62 M/mm3 (3.60-5.2); RDW 14.9 % (11.6-15.6)
[2018-08-01 08:47] LABS: WHITE BLOOD COUNT 1.9 K/mm3 (4.0-10.0)
[2018-08-01 09:14] LABS: ANION GAP 8 MMOL/L (8-16); BLOOD UREA NITROGEN 12 mg/dL (7-18); CALCIUM 7.8 mg/dL (8.5-10.1); CHLORIDE 104 mmol/L (98-107); CO2 28 mmol/L (21-32); CREATININE 0.9 mg/dL (0.55-1.3); GLUCOSE,RANDOM 82 mg/dL (74-106); POTASSIUM 4.3 mmol/L (3.5-5.1); SODIUM 140 mmol/L (136-145)
--- NOTE | 2018-08-01 13:21 | DS ---
Physical Exam: SUBJECTIVE: Patient seen and examined, she reports she is feeling much better, she has been eating well. Spoke with patient's ID specialist Dr. Ivey who cleared patient for d/c. Patient instructed to call the [facility] for an appointment to be seen this week. OBJECTIVE: Vital Signs Period Temp Pulse Resp BP Sys/Inman Pulse Ox Last 24 Hr 98 F-98.4 F 76-88 17-18 105-110/67-74 99-99 PHYSICAL EXAM GENERAL: Thin, awake, alert, and fully oriented, in no acute distress. HEAD: Normal with no signs of trauma. EYES: Pupils equal, round and reactive to light, extraocular movements intact, sclera anicteric, conjunctiva clear. No lid lag. EARS, NOSE, THROAT: Ears normal, nares patent, oropharynx clear without exudates. Moist mucous membranes. NECK: Normal range of motion, supple without lymphadenopathy, JVD, or masses. LUNGS: Breath sounds equal, clear to auscultation bilaterally. No wheezes, and no crackles. No accessory muscle use. HEART: Regular rate and rhythm, normal S1 and S2 without murmur, rub or gallop. ABDOMEN: Soft, nontender, not distended, normoactive bowel sounds, no guarding, no rebound, no masses. No hepatomegaly or splenomegaly. MUSCULOSKELETAL: Normal range of motion at all joints. No bony deformities or tenderness. No CVA tenderness. UPPER EXTREMITIES: 2+ pulses, warm, well-perfused. No cyanosis. No clubbing. No peripheral edema. LOWER EXTREMITIES: 2+ pulses, warm, well-perfused. No calf tenderness. No peripheral edema. NEUROLOGICAL: No facial droop, normal speech. Normal gait. PSYCHIATRIC: Cooperative. Good eye contact. Appropriate mood and affect. SKIN: Generalized dryness and scaliness LABS Laboratory Results - last 24 hr 07/31/18 08/01/18 08/01/18 17:36 07:20 07:20 WBC 2.2 L 1.9 L* RBC 3.44 L 3.62 Hgb 9.6 L 9.5 L Hct 28.2 L 30.0 L MCV 82.0 83.0 MCH 27.9 26.2 MCHC 34.1 31.6 L RDW 14.8 14.9 Plt Count 112 L 119 L MPV 9.1 8.0 D Sodium 140 Potassium 4.3 Chloride 104 Carbon Dioxide 28 Anion Gap 8 BUN 12 Creatinine 0.9 Creat Clearance w eGFR > 60 Random Glucose 82 Calcium 7.8 L HOSPITAL COURSE: Date of Admission:07/30/18 Date of Discharge: 08/01/18 Imaging CXR: no acute pathology 12 lead ECG: NSR, no ST or T wave abnormalities 63 year old female with a PMH significant for HIV (on HAART since 2004), HTN, COPD, Anemia, anorexia, and herpes presented to the ED with several weeks of diarrhea occasional BRBPR (only noted when wiping), loss of appetite, and weakness for the past several weeks. Upon admission to the ED, temperature was 99.1. She was given IV fluids and placed on observation for further GI work up. Gastritis - No episodes of diarrhea or BM since admission - Unable to obtain stool specimen for culture. Leukopenia - WBC 1.6 -> 2.2 ->1.9 - Placed on neutropenic precautions then d/shavon once improved - Preliminary blood culture negative, UC negative Blood in Stool - H&H stable; 11.0/34.4 ->9.6/28.2 -> 9.5/30 HIV - Held HIV medications as she has not taken in 3 weeks. - Followed by Dr. Ivey who says for now, she will leave it up to the patient if she wants to restart as patient reported the medications were making her sick. Loss of appetite - Continue Remeron 15 mg PO QHS Lower Back Pain - Chronic - Treated with Tramadol 50 mg q4h PRN effective for pain control Insomnia - Ambien 10 mg PO QHS PRN FULL Code Minutes to complete discharge: 25 Discharge Summary Reason For Visit: WEAKNESS Current Active Problems Blood in stool (Acute) Weakness (Acute) Condition: Stable - Instructions Diet, Activity, Other Instructions: Ms. Monroe, You were admitted to [facility] from 07/30/18 - 08/01/18, you were treated for dehydration with IV fluids. Please continue your home medications, including your HIV medications if you feel you can tolerate them. Please call the [facility] at [phone] to make an appointment to be seen by Dr. Ivey this week. Please return to the emergency department with any new or worsening symptoms or concerns. Please follow up with your primary care physician within 72 hours. Dominga Islas @ [facility] [phone] Referrals: Jamila Ivey MD [Primary Care Provider] - Disposition: HOME - Home Medications Comprehensive Discharge Medication List: Ambulatory Orders Abacavir Sulfate/Lamivudine [Abacavir-Lamivudine 600-300 mg] 1 each PO DAILY 05/25 Albuterol Sulfate Inhaler - [Ventolin HFA Inhaler -] 1 - 2 inh PO Q4H 06/15/18 Atovaquone [Mepron Oral Solution -] 750 mg PO ASDIR 06/15/18 Darunavir Ethanolate [Prezista -] 800 mg PO DAILY 06/15/18 Lactobacillus Acidophilus [Probiotic] 0 mg PO DAILY 06/15/18 Mirtazapine 15 mg PO DAILY 06/15/18 Ritonavir 100 mg PO DAILY 06/15/18 Tenofovir Disoproxil Fumarate 300 mg PO DAILY 06/15/18 Valacyclovir HCl [Valtrex -] 500 mg PO BID 06/15/18 Zolpidem Tartrate 10 mg PO HS 06/15/18 Abacavir Sulfate [Ziagen -] 600 mg PO DAILY tablet 08/01/18 Lamivudine [Epivir -] 300 mg PO DAILY tablet 08/01/18
[2018-08-01] MEDS ORDERED: SODIUM CHLORIDE 1,000 ML IV STA (15:36)
--- NOTE | 2018-08-01 18:08 | PN ---
Physical Exam: SUBJECTIVE: Patient seen and examined. Patient reports having a first BM since admission which was not loose and not dark in color. Set to be d/shavon today but had an episode of tachycardia (120, BP 129/73) STAT EKG normal. Given 1 L bolus of fluid. Upon re-assessment, pulse down to 101. Pt. then reported feeling light -headed and dizzy, when she got up to brush her teeth. Will stay one more night. OBJECTIVE: Vital Signs Period Temp Pulse Resp BP Sys/Inman Pulse Ox Last 24 Hr 98.1 F-98.4 F 76-120 17-20 105-129/67-73 99-99 GENERAL: Thin, awake, alert, and fully oriented, in no acute distress. HEAD: Normal with no signs of trauma. EYES: Pupils equal, round and reactive to light, extraocular movements intact, sclera anicteric, conjunctiva clear. No lid lag. EARS, NOSE, THROAT: Ears normal, nares patent, oropharynx clear without exudates. Moist mucous membranes. NECK: Normal range of motion, supple without lymphadenopathy, JVD, or masses. LUNGS: Breath sounds equal, clear to auscultation bilaterally. No wheezes, and no crackles. No accessory muscle use. HEART: Regular rate and rhythm, normal S1 and S2 without murmur, rub or gallop. ABDOMEN: Soft, nontender, not distended, normoactive bowel sounds, no guarding, no rebound, no masses. No hepatomegaly or splenomegaly. MUSCULOSKELETAL: Normal range of motion at all joints. No bony deformities or tenderness. No CVA tenderness. UPPER EXTREMITIES: 2+ pulses, warm, well-perfused. No cyanosis. No clubbing. No peripheral edema. LOWER EXTREMITIES: 2+ pulses, warm, well-perfused. No calf tenderness. No peripheral edema. NEUROLOGICAL: No facial droop, normal speech. Normal gait. PSYCHIATRIC: Cooperative. Good eye contact. Appropriate mood and affect. SKIN: Generalized dryness and scaliness Laboratory Results - last 24 hr 08/01/18 08/01/18 07:20 07:20 WBC 1.9 L* RBC 3.62 Hgb 9.5 L Hct 30.0 L MCV 83.0 MCH 26.2 MCHC 31.6 L RDW 14.9 Plt Count 119 L MPV 8.0 D Sodium 140 Potassium 4.3 Chloride 104 Carbon Dioxide 28 Anion Gap 8 BUN 12 Creatinine 0.9 Creat Clearance w eGFR > 60 Random Glucose 82 Calcium 7.8 L Active Medications Generic Name Dose Route Start Last Admin Trade Name Freq PRN Reason Stop Dose Admin Abacavir Sulfate 600 mg 07/31/18 10:00 Ziagen - PO DAILY [facility] Atovaquone 750 mg 07/31/18 08:00 Mepron - PO BIDWM [facility] Darunavir 800 mg 07/31/18 10:00 Prezista - PO DAILY [facility] Lamivudine 300 mg 07/31/18 10:00 Epivir - PO DAILY SHERI Mirtazapine 15 mg 07/30/18 22:00 07/31/18 21:19 Remeron - PO 15 mg HS SHERI Administration Ritonavir 100 mg 07/31/18 10:00 Norvir - PO DAILY SHERI Tenofovir Disoproxil Fumarate 300 mg 07/31/18 10:00 Viread - PO DAILY SHERI Tramadol HCl 50 mg 07/30/18 18:44 07/31/18 21:19 Ultram - PO 50 mg Q4H PRN Administration PAIN LEVEL 6-10 Valacyclovir HCl 500 mg 07/30/18 22:00 07/30/18 22:49 Valtrex - PO 500 mg BID SHERI Administration Zolpidem Tartrate 10 mg 07/30/18 22:00 07/31/18 21:19 Ambien - PO 10 mg HS PRN Administration INSOMNIA Imaging CXR: no acute pathology 12 lead ECG: NSR, no ST or T wave abnormalities ASSESSMENT/PLAN: 63 year old female with a PMH significant for HIV (on HAART since 2004), HTN, COPD, Anemia, anorexia, and herpes presented to the ED with several weeks of diarrhea occasional BRBPR (only noted when wiping), loss of appetite, and weakness for the past several weeks. Upon admission to the ED, temperature was 99.1. She was given IV fluids and placed on observation for further GI work up. Gastritis - Resolved - No episodes of diarrhea since admission - Regular BM today Leukopenia - WBC 1.6 -> 2.2 ->1.9 - Likely a result of being off HAART for several weeks - Placed on neutropenic precautions then d/shavon once improved - Preliminary blood culture negative, UC negative Blood in Stool - H&H stable; 11.0/34.4 ->9.6/28.2 -> 9.5/30 HIV - Held HIV medications as she has not taken in 3 weeks. - Followed by Dr. Ivey who says for now, she will leave it up to the patient if she wants to restart as patient reported the medications were making her sick. - Patient to f/u with Dr. Ivey this week as OP. Loss of appetite - Continue Remeron 15 mg PO QHS Lower Back Pain - Chronic - Treated with Tramadol 50 mg q4h PRN effective for pain control Insomnia - Ambien 10 mg PO QHS PRN Prophylaxis - DVT: OOB FEN - PO intake adequate - Replete as indicated - Regular diet DISP: Will d/c tomorrow to home if stable. FULL Code Visit type - Emergency Visit Emergency Visit: No - New Patient This patient is new to me today: No - Critical Care Critical Care patient: No
[2018-08-01] MEDS: MIRTAZAPINE 15 MG TABLET (FP) PO SCH (21:24)
[2018-08-01] MEDS: traMADol HCL 50 MG TABLET PO PRN (21:24)
[2018-08-01] MEDS: ZOLPIDEM TARTRATE 5 MG TABLET PO PRN (21:25)
[2018-08-02 07:18] LABS: HEMATOCRIT 28.8 % (32.4-45.2); HEMOGLOBIN 9.2 GM/dL (10.7-15.3); MCH 26.4 pg (25.7-33.7); MCHC 31.9 g/dl (32.0-36.0); PLATELET COUNT 112 K/MM3 (134-434); RBC 3.48 M/mm3 (3.60-5.2); RDW 14.6 % (11.6-15.6)
[2018-08-02 07:55] LABS: ANION GAP 6 MMOL/L (8-16); BLOOD UREA NITROGEN 10 mg/dL (7-18); CALCIUM 8.1 mg/dL (8.5-10.1); CHLORIDE 104 mmol/L (98-107); CO2 29 mmol/L (21-32); CREATININE 0.8 mg/dL (0.55-1.3); GLUCOSE,RANDOM 84 mg/dL (74-106); MAGNESIUM 2.1 mg/dL (1.8-2.4); POTASSIUM 4.2 mmol/L (3.5-5.1); SODIUM 140 mmol/L (136-145)
[2018-08-02 08:00] LABS: WHITE BLOOD COUNT 1.4 K/mm3 (4.0-10.0)
--- NOTE | 2018-08-02 10:58 | EKG ---
Test Reason : Blood Pressure : / mmHG Vent. Rate : 095 BPM Atrial Rate : 095 BPM P-R Int : 164 ms QRS Dur : 076 ms QT Int : 356 ms P-R-T Axes : 077 078 078 degrees QTc Int : 447 ms NORMAL SINUS RHYTHM NORMAL ECG WHEN COMPARED WITH ECG OF 30-JUL-2018 12:12, NO SIGNIFICANT CHANGE WAS FOUND Confirmed by RADHA CHIU MD ([id number]) on 08/02/2018 10:57:25 AM Referred By: Gilberto ROE Confirmed By:RADHA CHIU MD
[2018-08-02] MEDS ORDERED: DARUNAVIR ETHANOLATE 100 MG/ML BULK BOTTLE PO SCH (12:30)
--- NOTE | 2018-08-02 12:39 | PN ---
Progress Note (short form) - Note Progress Note: discharge postponed yesterday-episode of dizziness no fevers no diarrhea no abdominal pain eating lunch Vital Signs Period Temp Pulse Resp BP Sys/Inman Pulse Ox Last 24 Hr 97.9 F-99.3 F 69-120 17-20 90-129/60-73 98-99 cor-rrr lungs clear abd soft,nt ext no edema CBC, BMP 08/02/18 06:30 08/02/18 06:30 Microbiology 07/30/18 12:00 Blood - Peripheral Venous Blood Culture - Preliminary NO GROWTH OBTAINED AFTER 72 HOURS, INCUBATION TO CONTINUE FOR 2 DAYS. 07/30/18 11:51 Blood - Peripheral Venous Blood Culture - Preliminary NO GROWTH OBTAINED AFTER 72 HOURS, INCUBATION TO CONTINUE FOR 2 DAYS. 07/30/18 14:00 Urine - Urine Clean Catch Urine Culture - Final a/p clinically improved she is ready to resume her HIV meds leukopenia is secondary to her HIV will d/w hematology whether she would benefit from Neupogen have asked her to avoid fresh vegetables and fruits until her wbc count improves continue to observe in hospital today hopefully home tomorrow with close outpt f/u at the [facility] [phone] we will discuss alternative meds then- unfortunately she has significant resistance Problem List - Problems (1) Acute gastroenteritis Code(s): K52.9 - NONINFECTIVE GASTROENTERITIS AND COLITIS, UNSPECIFIED (2) Weakness Code(s): R53.1 - WEAKNESS (3) AIDS Code(s): B20 - HUMAN IMMUNODEFICIENCY VIRUS [HIV] DISEASE (4) Dehydration Code(s): E86.0 - DEHYDRATION (5) Blood in stool Code(s): K92.1 - MELENA (6) Anorexia nervosa Code(s): F50.00 - ANOREXIA NERVOSA, UNSPECIFIED
[2018-08-02] MEDS: RITONAVIR 100 MG TABLET PO SCH (15:56)
[2018-08-02] MEDS: TENOFOVIR DISOPROXIL FUMARATE 300 MG TABLET PO SCH (15:57)
[2018-08-02] MEDS: ABACAVIR SULFATE 300 MG TABLET PO SCH (17:52)
--- NOTE | 2018-08-02 18:57 | PN ---
Progress Note, Physician Chief Complaint: Pt reports feeling weak today. Her WBC have downtrended to 1.4. She has been placed on neutropenic precautions. Case reviewed with Dr. Ivey who is her outpt ID specialist. Patient had self d/shavon her ART therapy due to N/V. She has yet to restart meds and as discussed with Dr. Ivey pt will start meds today and be evaluated for d/c home tomorrow/ - Current Medication List Current Medications: Active Medications Abacavir Sulfate (Ziagen -) 600 mg PO DAILY [facility] Last Admin: 08/02/18 17:52 Dose: 600 mg Darunavir (Prezista) 800 mg PO DAILY [facility] Last Admin: 08/02/18 17:52 Dose: 800 mg Lamivudine (Epivir -) 300 mg PO DAILY [facility] Mirtazapine (Remeron -) 15 mg PO HS [facility] Last Admin: 08/01/18 21:24 Dose: 15 mg Ritonavir (Norvir -) 100 mg PO DAILY [facility] Last Admin: 08/02/18 15:56 Dose: 100 mg Tenofovir Disoproxil Fumarate (Viread -) 300 mg PO DAILY [facility] Last Admin: 08/02/18 15:57 Dose: 300 mg Tramadol HCl (Ultram -) 50 mg PO Q4H PRN PRN Reason: PAIN LEVEL 6-10 Last Admin: 08/01/18 21:24 Dose: 50 mg Valacyclovir HCl (Valtrex -) 500 mg PO BID [facility] Zolpidem Tartrate (Ambien -) 10 mg PO HS PRN PRN Reason: INSOMNIA Last Admin: 08/01/18 21:25 Dose: 10 mg - Objective Vital Signs: Vital Signs Temperature 98.6 F 08/02/18 14:46 Pulse Rate 80 08/02/18 14:46 Respiratory Rate 18 08/02/18 16:00 Blood Pressure 98/62 08/02/18 14:46 O2 Sat by Pulse Oximetry (%) 98 08/02/18 16:00 Constitutional: Yes: Well Nourished, No Distress Eyes: Yes: Conjunctiva Clear HENT: Yes: Atraumatic, Normocephalic Neck: Yes: Supple Cardiovascular: Yes: Regular Rate and Rhythm Respiratory: Yes: Regular Gastrointestinal: Yes: Normal Bowel Sounds, Soft Musculoskeletal: Yes: WNL Extremities: Yes: WNL Edema: No Peripheral Pulses WNL: Yes Peripheral Pulses: Left Radial: 2+, Right Radial: 2+, Left Doralis Pedis: 2+, Right Dorsalis Pedis: 2+ Integumentary: Yes: WNL Neurological: Yes: Alert, Oriented ...Motor Strength: WNL Psychiatric: Yes: Alert, Oriented Labs: CBC, BMP 08/02/18 06:30 08/02/18 06:30 INR, PTT INR 0.95 (0.83-1.09) 07/31/18 07:40 Problem List - Problems (1) Insomnia disorder Assessment/Plan: ambien 10mg qhs sleep hygiene measures stressed Code(s): G47.00 - INSOMNIA, UNSPECIFIED (2) Weakness Assessment/Plan: reg diet Code(s): R53.1 - WEAKNESS (3) AIDS Assessment/Plan: restart HIV regimen today -prezista/epivir/norvir -viread 300mg daily PPX: mepron f/u with output ID Dr. Ivey upon discharge Code(s): B20 - HUMAN IMMUNODEFICIENCY VIRUS [HIV] DISEASE (4) Depression Assessment/Plan: continue remeron 15mg daily Code(s): F32.9 - MAJOR DEPRESSIVE DISORDER, SINGLE EPISODE, UNSPECIFIED (5) Prophylactic measure Assessment/Plan: OOB to chair Ambulate daily Code(s): Z29.9 - ENCOUNTER FOR PROPHYLACTIC MEASURES, UNSPECIFIED Impression/Plan Impression/Plan: DISPO: D/c in AM if pt stable and tolerates restarting ART. Full code Visit type - Emergency Visit Emergency Visit: Yes ED Registration Date: 07/30/18 Care time: The patient presented to the Emergency Department on the above date and was hospitalized for further evaluation of their emergent condition. - New Patient This patient is new to me today: Yes Date on this admission: 08/02/18 - Critical Care Critical Care patient: No - Discharge Referral Referred to [facility] Med [facility].C[facility] No
--- NOTE | 2018-08-02 20:24 | CONSULT ---
Consultation: REQUESTING PROVIDER: Esperanza Harry CONSULT REQUEST FOR HEMATOLOGY/ONCOLOGY: We have been asked to medically evaluate this patient for Pancytopenia. HISTORY OF PRESENT ILLNESS: Patient is a 63 year old female with a PMHx of HIV (on HAART), HTN, COPD, Anorexia, who presented to the ED for several weeks of diarrhea with bright red blood when wiping, as well as loss of appetite due to nausea and vomiting. Patient reports she stopped taking her HAART medication due to the worsening nausea and vomiting for the past three weeks. In the ED patient was found to have leukopenic with a WBC of 2.2 and today she was found to have a a level of 1.6. Patient placed on neutropenic precautions and started back on her HAART medications. We were consulted for the ongoing leukopenic and now pancytopenia. Patient otherwise denies any chest pain, palpitations, shortness of breath, headaches, dysuria, hematuria. PMHx: HIV (on HAART since 2004) HTN COPD Anemia anorexia Herpes PSHx: Breast biopsy Tonsillectomy LEEP D/c with hysteroscopy Social Hx: Smokin-6 cigarettes/week for more than 40 years Alcohol: Occasional Drugs: Prior inhaled cocaine use, quite 10 years ago Family Hx Father: Prostate Ca, Mother: Dementia REVIEW OF SYSTEMS: CONSTITUTIONAL: generalized weakness Absent: fever, chills, diaphoresis, malaise, loss of appetite, weight change HEENT: Absent: rhinorrhea, nasal congestion, throat pain, throat swelling, difficulty swallowing, mouth swelling, ear pain, eye pain, visual changes CARDIOVASCULAR: Absent: chest pain, syncope, palpitations, irregular heart rate, lightheadedness , peripheral edema RESPIRATORY: Absent: cough, shortness of breath, dyspnea with exertion, orthopnea, wheezing, stridor, hemoptysis GASTROINTESTINAL: nausea, vomiting, diarrhea Absent: abdominal pain, abdominal distension, constipation, melena, hematochezia GENITOURINARY: Absent: dysuria, frequency, urgency, hesitancy, hematuria, flank pain, genital pain MUSCULOSKELETAL: Absent: myalgia, arthralgia, joint swelling, back pain, neck pain SKIN: Absent: rash, itching, pallor HEMATOLOGIC/IMMUNOLOGIC: Absent: easy bleeding, easy bruising, lymphadenopathy, frequent infections ENDOCRINE: Absent: unexplained weight gain, unexplained weight loss, heat intolerance, cold intolerance NEUROLOGIC: Absent: headache, focal weakness or paresthesias, dizziness, unsteady gait, seizure, mental status changes, bladder or bowel incontinence PSYCHIATRIC: Absent: anxiety, depression, suicidal or homicidal ideation, hallucinations. PHYSICAL EXAMINATION Vital Signs - 24 hr 08/01/18 08/02/18 08/02/18 21:00 00:00 05:00 Temperature 99.3 F 97.9 F Pulse Rate 80 69 Respiratory 17 18 Rate Blood Pressure 114/67 90/60 O2 Sat by Pulse 98 Oximetry (%) 08/02/18 08/02/18 08/02/18 08:00 09:00 14:46 Temperature 98 F 98.6 F Pulse Rate 99 H 80 Respiratory 18 18 18 Rate Blood Pressure 110/68 98/62 O2 Sat by Pulse 98 Oximetry (%) 08/02/18 08/02/18 16:00 18:00 Temperature 98.4 F Pulse Rate 76 Respiratory 18 18 Rate Blood Pressure 103/68 O2 Sat by Pulse 98 Oximetry (%) GENERAL: Awake, alert, and fully oriented, in no acute distress. HEAD: Normal with no signs of trauma. EYES: Pupils equal, round and reactive to light, extraocular movements intact, sclera anicteric, conjunctiva clear. EARS, NOSE, THROAT: Oropharynx clear without exudates. Moist mucous membranes. NECK:(-) lymphadenopathy, JVD, or masses. LUNGS: CTA bilaterally. No accessory muscle use. HEART: RRR, normal S1 and S2 without murmur, rub or gallop. ABDOMEN: Soft, nontender, not distended, normoactive bowel sounds, no guarding, no rebound, no masses. No hepatomegaly or splenomegaly. BREASTS: EXTREMITIES: 2+ pulses, warm, well-perfused. No calf tenderness. No peripheral edema. NEUROLOGICAL: No facial droop. Normal speech. Normal gait. PSYCHIATRIC: Cooperative. Good eye contact. Appropriate mood and affect. SKIN: Warm, dry, normal turgor, no rashes or lesions noted. Laboratory Results - last 24 hr 08/02/18 08/02/18 06:30 06:30 WBC 1.4 L* RBC 3.48 L Hgb 9.2 L Hct 28.8 L MCV 83.0 MCH 26.4 MCHC 31.9 L RDW 14.6 Plt Count 112 L MPV 9.0 D Sodium 140 Potassium 4.2 Chloride 104 Carbon Dioxide 29 Anion Gap 6 L BUN 10 Creatinine 0.8 Creat Clearance w eGFR > 60 Random Glucose 84 Calcium 8.1 L Magnesium 2.1 Active Medications Generic Name Dose Route Start Last Admin Trade Name Freq PRN Reason Stop Dose Admin Abacavir Sulfate 600 mg 08/02/18 12:30 08/02/18 17:52 Ziagen - PO 600 mg DAILY SHERI Administration Darunavir 800 mg 08/02/18 12:30 08/02/18 17:52 Prezista PO 800 mg DAILY SHERI Administration Lamivudine 300 mg 08/03/18 10:00 Epivir - PO DAILY SHERI Mirtazapine 15 mg 07/30/18 22:00 08/01/18 21:24 Remeron - PO 15 mg HS SHERI Administration Ritonavir 100 mg 08/02/18 14:00 08/02/18 15:56 Norvir - PO 100 mg DAILY SHERI Administration Tenofovir Disoproxil Fumarate 300 mg 08/02/18 14:00 08/02/18 15:57 Viread - PO 300 mg DAILY SHERI Administration Tramadol HCl 50 mg 07/30/18 18:44 08/01/18 21:24 Ultram - PO 50 mg Q4H PRN Administration PAIN LEVEL 6-10 Valacyclovir HCl 500 mg 08/02/18 22:00 Valtrex - PO BID SHERI Zolpidem Tartrate 10 mg 07/30/18 22:00 08/01/18 21:25 Ambien - PO 10 mg HS PRN Administration INSOMNIA ASSESSMENT/PLAN: Patient is a 63 year old female who presented for several weeks of diarrhea, nausea, vomiting, anorexia after stopping her HAART medication three weeks ago. Patient was found to be Pancytopenic and consult placed for evaluation Problem List: Leukopenia Pancytopenia Diarrhea Anorexia HIV HTN COPD Anemia anorexia Herpes PLAN: -Patient with history of HIV/AIDS and stopped HAART medication for three weeks, now has diarrhea, likely infectious causing leukopenia. Patient now has pancytopenia. -Will send flow, B12, folate and then a dose of neupogen in the morning. -Monitor CBC Dispo: We will continue to follow the patient. Thank you for this consultative opportunity. Visit type - Emergency Visit Emergency Visit: Yes ED Registration Date: 08/03/18 Care time: The patient presented to the Emergency Department on the above date and was hospitalized for further evaluation of their emergent condition. - New Patient This patient is new to me today: Yes Date on this admission: 08/03/18 - Critical Care Critical Care patient: No
[2018-08-02] MEDS: valACYclovir HCL 500 MG TABLET (FP) PO SCH (21:27)
[2018-08-02] MEDS: MIRTAZAPINE 15 MG TABLET (FP) PO SCH (21:27)
[2018-08-02] MEDS: ZOLPIDEM TARTRATE 5 MG TABLET PO PRN (21:35)
[2018-08-02] MEDS: traMADol HCL 50 MG TABLET PO PRN (21:35)
--- NOTE | 2018-08-02 23:15 | PN ---
Teaching Attending Note Name of Resident: Katt Rivas ATTENDING PHYSICIAN STATEMENT I saw and evaluated the patient. I reviewed the resident's note and discussed the case with the resident. I agree with the resident's findings and plan as documented. ASSESSMENT AND PLAN: 63 y/o patient with HIV/AIDS, comes in with sweats, fevers ,diarrhea,. Leukopenia --? due to advanced AIDS/OIS will check cultures/B!2/folate/TSH/LDH/flow ? CT scans ? check CMV PCR ? AFB/fungal cx Growth factor support --may need neupogen 2/3 times per week
[2018-08-03 07:02] LABS: INR 1.03 (0.83-1.09); PROTHROMBIN TIME (PATIENT) 12.1 SEC (9.7-13.0)
[2018-08-03 07:04] LABS: BASO % 0.4 % (0-2.0); EOS % 0.4 % (0-4.5); HEMATOCRIT 28.5 % (32.4-45.2); HEMOGLOBIN 9.2 GM/dL (10.7-15.3); LYMPH % 25.3 % (8-40); MCH 26.5 pg (25.7-33.7); MCHC 32.4 g/dl (32.0-36.0); MEAN PLT VOLUME 9.2 fl (7.5-11.1); MONO % 29.2 % (3.8-10.2); NEUT % 44.7 % (42.8-82.8); PLATELET COUNT 129 K/MM3 (134-434); RBC 3.47 M/mm3 (3.60-5.2); RDW 14.5 % (11.6-15.6)
[2018-08-03 07:22] LABS: ALK PHOS 89 U/L (45-117); ANION GAP 6 MMOL/L (8-16); BILIRUBIN,TOTAL 0.4 mg/dL (0.2-1); BLOOD UREA NITROGEN 12 mg/dL (7-18); CHLORIDE 99 mmol/L (98-107); CO2 31 mmol/L (21-32); CREATININE 0.8 mg/dL (0.55-1.3); GLUCOSE,RANDOM 86 mg/dL (74-106); POTASSIUM 4.3 mmol/L (3.5-5.1); SGOT/AST 52 U/L (15-37); SGPT/ALT 42 U/L (13-61); SODIUM 135 mmol/L (136-145); TOT PROT 7.2 g/dl (6.4-8.2)
[2018-08-03 08:15] LABS: LDH 213 U/L (84-246); URIC ACID 4.5 mg/dL (2.6-7.2)
[2018-08-03 08:36] LABS: WHITE BLOOD COUNT 1.6 K/mm3 (4.0-10.0)
[2018-08-03] MEDS: valACYclovir HCL 500 MG TABLET (FP) PO SCH ×2 (09:23→22:24)
[2018-08-03] MEDS: TENOFOVIR DISOPROXIL FUMARATE 300 MG TABLET PO SCH (09:23)
[2018-08-03] MEDS: ABACAVIR SULFATE 300 MG TABLET PO SCH (09:24)
[2018-08-03] MEDS: RITONAVIR 100 MG TABLET PO SCH (09:24)
[2018-08-03] MEDS: lamiVUDine 150 MG TABLET PO SCH (09:24)
[2018-08-03] MEDS: DARUNAVIR ETHANOLATE 800 MG TAB PO SCH (09:25)
[2018-08-03] MEDS ORDERED: TBO-FILGRASTIM 300 MCG/0.5 ML DISP.SYRINGE SQ ONE (10:00)
--- NOTE | 2018-08-03 12:05 | PN ---
Physical Exam: SUBJECTIVE: Patient seen and examined OBJECTIVE: Vital Signs Period Temp Pulse Resp BP Sys/Inman Pulse Ox Last 24 Hr 98.1 F-98.6 F 68-94 18-18 94-107/60-68 98-98 GENERAL: The patient is awake, alert, and fully oriented, in no acute distress. HEAD: Normal with no signs of trauma. EYES: PERRL, extraocular movements intact, sclera anicteric, conjunctiva clear. No ptosis. ENT: Ears normal, nares patent, oropharynx clear without exudates, moist mucous membranes. NECK: Trachea midline, full range of motion, supple. LUNGS: Breath sounds equal, clear to auscultation bilaterally, no wheezes, no crackles, no accessory muscle use. HEART: Regular rate and rhythm, S1, S2 without murmur, rub or gallop. ABDOMEN: Soft, nontender, nondistended, normoactive bowel sounds, no guarding, no rebound, no hepatosplenomegaly, no masses. EXTREMITIES: 2+ pulses, warm, well-perfused, no edema. NEUROLOGICAL: Cranial nerves II through XII grossly intact. Normal speech, gait not observed. PSYCH: Normal mood, normal affect. SKIN: Warm, dry, normal turgor, no rashes or lesions noted Laboratory Results - last 24 hr 08/03/18 08/03/18 08/03/18 06:00 06:00 06:00 WBC 1.6 L* RBC 3.47 L Hgb 9.2 L Hct 28.5 L MCV 82.0 MCH 26.5 MCHC 32.4 RDW 14.5 Plt Count 129 L MPV 9.2 Absolute Neuts (auto) 0.7 L Total Counted 100 Neutrophils % 44.7 Neutrophils % (Manual) 43.0 Band Neutrophils % 4.0 Lymphocytes % 25.3 Lymphocytes % (Manual) 26.0 D Monocytes % 29.2 H Monocytes % (Manual) 26 H Eosinophils % 0.4 D Basophils % 0.4 Nucleated RBC % 0 Metamyelocytes 1 D PT with INR 12.10 INR 1.03 Sodium 135 L Potassium 4.3 Chloride 99 Carbon Dioxide 31 Anion Gap 6 L BUN 12 Creatinine 0.8 Creat Clearance w eGFR > 60 Random Glucose 86 Uric Acid 4.5 Calcium 8.0 L Total Bilirubin 0.4 AST 52 H ALT 42 Alkaline Phosphatase 89 LD Total 213 Total Protein 7.2 Albumin 3.0 L Vitamin B12 465 Active Medications Generic Name Dose Route Start Last Admin Trade Name Mary Kate PRN Reason Stop Dose Admin Abacavir Sulfate 600 mg 08/02/18 12:30 08/03/18 09:24 Ziagen - PO 600 mg DAILY SHERI Administration Darunavir 800 mg 08/03/18 10:00 08/03/18 09:25 Prezista - PO 800 mg DAILY SHERI Administration Lamivudine 300 mg 08/03/18 10:00 08/03/18 09:24 Epivir - PO 300 mg DAILY SHERI Administration Mirtazapine 15 mg 07/30/18 22:00 08/02/18 21:27 Remeron - PO 15 mg HS SHERI Administration Ritonavir 100 mg 08/02/18 14:00 08/03/18 09:24 Norvir - PO 100 mg DAILY SHERI Administration Tenofovir Disoproxil Fumarate 300 mg 08/02/18 14:00 08/03/18 09:23 Viread - PO 300 mg DAILY SHERI Administration Tramadol HCl 50 mg 07/30/18 18:44 08/02/18 21:35 Ultram - PO 50 mg Q4H PRN Administration PAIN LEVEL 6-10 Valacyclovir HCl 500 mg 08/02/18 22:00 08/03/18 09:23 Valtrex - PO 500 mg BID SHERI Administration Zolpidem Tartrate 10 mg 07/30/18 22:00 08/02/18 21:35 Ambien - PO 10 mg HS PRN Administration INSOMNIA ASSESSMENT/PLAN:
[2018-08-03] MEDS ORDERED: SODIUM CHLORIDE 500 ML IV STA (14:46)
--- NOTE | 2018-08-03 15:20 | PN ---
Progress Note (short form) - Note Progress Note: PROGRESS NOTE FOR HEMATOLOGY/ONCOLOGY Patient seen and examined by me at bedside Reports had a couple of episodes of loose nonbloody stool Also states she feels dry and dehydrated Otherwise, denies any fever, chills, nausea, vomiting, abdominal pain, chest pain, palpitations, shortness of breath Vital Signs Temperature 98 F 08/03/18 14:24 Pulse Rate 86 08/03/18 14:24 Respiratory Rate 20 08/03/18 14:24 Blood Pressure 93/62 08/03/18 14:24 O2 Sat by Pulse Oximetry (%) 98 08/03/18 08:00 PHYSICAL EXAMINATION: GENERAL: Awake, alert, and fully oriented, in no acute distress. HEAD: Normal with no signs of trauma. EYES: Pupils equal, round and reactive to light, extraocular movements intact, sclera anicteric, conjunctiva clear. ENT: Dry mucous membranes. Oral thrush NECK:(-) lymphadenopathy, JVD, or masses. LUNGS: CTA bilaterally. No accessory muscle use. HEART: RRR, normal S1 and S2 without murmur, rub or gallop. ABDOMEN: Soft, nontender, not distended, normoactive bowel sounds, no guarding, no rebound, no masses. No hepatomegaly or splenomegaly. BREASTS: No masses, discoloration, dimpling or retraction. EXTREMITIES: No peripheral edema. NEUROLOGICAL: No facial droop. Normal speech. Normal gait. PSYCHIATRIC: Cooperative. Good eye contact. Appropriate mood and affect. SKIN: Warm, dry, normal turgor, no rashes or lesions noted. Laboratory Tests 08/03/18 06:00 08/03/18 06:00 08/03/18 08/03/18 08/03/18 06:00 06:00 06:00 Absolute Neuts (auto) 0.7 L PT with INR 12.10 INR 1.03 Uric Acid 4.5 AST 52 H ALT 42 Total Protein 7.2 Albumin 3.0 L Vitamin B12 465 ASSESSMENT/PLAN: Patient is a 63 year old female who presented for several weeks of diarrhea, nausea, vomiting, anorexia after stopping her HAART medication three weeks ago. Patient was found to be Pancytopenic and consult placed for evaluation Problem List: Leukopenia Pancytopenia Diarrhea Anorexia HIV HTN COPD Anemia anorexia Herpes PLAN: -Patient with history of HIV/AIDS and stopped HAART medication for three weeks, now has diarrhea, likely infectious causing leukopenia. Patient now has pancytopenia. -Will check Flow results, B12 wnl, folate pending, uric acid pending -slight Improvement in WBC today but labs were drawn before Granix was given. Will continue to monitor CBC with possible Granix given 1-2 times a week.
--- NOTE | 2018-08-03 15:22 | DS ---
Physical Exam: SUBJECTIVE: Patient seen and examined OBJECTIVE: wbc improved slightly, now 1.6. given granix today. will need to see hematology outpatient. platelets 129, improving patient given 500cc bolus ns, feels dehydrated. encouraged PO intake ambien can cause dizziness, medication has been discontinued PT evaluation -> walked only 10 feet, unsteady gait Vital Signs Period Temp Pulse Resp BP Sys/Inman Pulse Ox Last 24 Hr 98 F-98.6 F 68-98 18-20 93-107/60-68 98-98 PHYSICAL EXAM GENERAL: The patient is awake, alert, and fully oriented, in no acute distress. HEAD: Normal with no signs of trauma. EYES: PERRL, extraocular movements intact, sclera anicteric, conjunctiva clear. ENT: Ears normal, nares patent, oropharynx clear without exudates, moist mucous membranes. NECK: Trachea midline, full range of motion, supple. LUNGS: Breath sounds equal, clear to auscultation bilaterally, no wheezes, no crackles, no accessory muscle use. HEART: Regular rate and rhythm ABDOMEN: Soft, nontender, nondistended, normoactive bowel sounds, no guarding EXTREMITIES: no edema. NEUROLOGICAL: Normal speech, gait not observed. PSYCH: Normal mood, normal affect. SKIN: Warm, dry, normal turgor, no rashes or lesions noted. LABS Laboratory Results - last 24 hr 08/03/18 08/03/18 08/03/18 06:00 06:00 06:00 WBC 1.6 L* RBC 3.47 L Hgb 9.2 L Hct 28.5 L MCV 82.0 MCH 26.5 MCHC 32.4 RDW 14.5 Plt Count 129 L MPV 9.2 Absolute Neuts (auto) 0.7 L Total Counted 100 Neutrophils % 44.7 Neutrophils % (Manual) 43.0 Band Neutrophils % 4.0 Lymphocytes % 25.3 Lymphocytes % (Manual) 26.0 D Monocytes % 29.2 H Monocytes % (Manual) 26 H Eosinophils % 0.4 D Basophils % 0.4 Nucleated RBC % 0 Metamyelocytes 1 D PT with INR 12.10 INR 1.03 Sodium 135 L Potassium 4.3 Chloride 99 Carbon Dioxide 31 Anion Gap 6 L BUN 12 Creatinine 0.8 Creat Clearance w eGFR > 60 Random Glucose 86 Uric Acid 4.5 Calcium 8.0 L Total Bilirubin 0.4 AST 52 H ALT 42 Alkaline Phosphatase 89 LD Total 213 Total Protein 7.2 Albumin 3.0 L Vitamin B12 465 HOSPITAL COURSE: Date of Admission:07/30/18 Date of Discharge: 08/04/18 ASSESSMENT/PLAN: Patient is a 63 year old female with a PMH significant for HIV (on HAART since 2004), HTN, COPD, Anemia, anorexia, and herpes presented to the ED with several weeks of diarrhea occasional BRBPR (only noted when wiping), loss of appetite, and weakness for the past several weeks. Upon admission to the ED, temperature was 99.1. She was given IV fluids and placed on observation. GI: Gastritis, resolved. no further episodes of diarrhea, no nausea or vomiting. tolerating diet. Hematology: Leukopenia. Secondary to being off her HIV meds for several weeks. Given Granix today. WBC 1.6. Patient to follow up outpatient. hmg/hct stable. no further reports of gi bleed. ID: HIV On HAART therapy, to continue outpatient. Neuro: Reports of dizziness with ambulation. stop ambien 10mg. If has insomnia. can give melatonin. fen start on ivf monitor electrolytes low salt diet neutropenic precautions. Patient was up for discharge home today under observation status. However, she is unable to ambulate more than 10 feet with close stand by assistance. Has fallen at home in the past. Patient candidate for STR. SW made aware. full code. Minutes to complete discharge: 60 Discharge Summary Reason For Visit: WEAKNESS Current Active Problems Blood in stool (Acute) Insomnia disorder (Acute) Prophylactic measure (Acute) Weakness (Acute) Condition: Stable - Instructions Diet, Activity, Other Instructions: Ms. Monroe, Andrew were admitted to [facility] from 07/30/18 - 08/03/18, you were treated for dehydration with IV fluids. Your WBC was noted to be low and we have given you a dose of Granix on 08/03/18 that may help increase your WBC. You will need to follow up with Dr. Day ( is manager) within 1 week after discharge for repeat lab work. Please continue to hydrate with at least 8 - 10 glasses of water per day. Please continue your home medications, including your HIV medications if you feel you can tolerate them. Please call the [facility] at [phone] to make an appointment to be seen by Dr. Ivey this week. Please return to the emergency department with any new or worsening symptoms or concerns. Please follow up with your primary care physician within 72 hours. Lucia Stubbs [facility] @ [facility] [phone] Referrals: Jamila Ivey MD [Primary Care Provider] - - Home Medications Comprehensive Discharge Medication List: Ambulatory Orders Abacavir Sulfate/Lamivudine [Abacavir-Lamivudine 600-300 mg] 1 each PO DAILY 05/25 Albuterol Sulfate Inhaler - [Ventolin HFA Inhaler -] 1 - 2 inh PO Q4H 06/15/18 Atovaquone [Mepron Oral Solution -] 750 mg PO ASDIR 06/15/18 Darunavir Ethanolate [Prezista -] 800 mg PO DAILY 06/15/18 Lactobacillus Acidophilus [Probiotic] 0 mg PO DAILY 06/15/18 Mirtazapine 15 mg PO DAILY 06/15/18 Ritonavir 100 mg PO DAILY 06/15/18 Tenofovir Disoproxil Fumarate 300 mg PO DAILY 06/15/18 Valacyclovir HCl [Valtrex -] 500 mg PO BID 06/15/18 Zolpidem Tartrate 10 mg PO HS 06/15/18 Abacavir Sulfate [Ziagen -] 600 mg PO DAILY tablet 08/01/18 Lamivudine [Epivir -] 300 mg PO DAILY tablet 08/01/18 This patient is new to me today: Yes Date on this admission: 08/03/18 Emergency Visit: Yes ED Registration Date: 08/03/18 Care time: The patient presented to the Emergency Department on the above date and was hospitalized for further evaluation of their emergent condition. Critical Care patient: No - Discharge Referral Referred to [facility] No
[2018-08-03] MEDS ORDERED: SODIUM CHLORIDE 1,000 ML IV SCH (16:00)
[2018-08-03] MEDS: NYSTATIN 500,000 UNITS/5 ML SUSPENSION PO SCH ×2 (17:46→23:33)
[2018-08-03] MEDS: traMADol HCL 50 MG TABLET PO PRN (22:24)
[2018-08-03] MEDS: MIRTAZAPINE 15 MG TABLET (FP) PO SCH (22:24)
[2018-08-04] MEDS: NYSTATIN 500,000 UNITS/5 ML SUSPENSION PO SCH ×2 (06:16→14:05)
[2018-08-04] MEDS ORDERED: PT OWN MED DRAWER 7, Y5N ONE (09:04)
[2018-08-04] MEDS: DARUNAVIR ETHANOLATE 800 MG TAB PO SCH (09:24)
[2018-08-04] MEDS: ABACAVIR SULFATE 300 MG TABLET PO SCH (09:24)
[2018-08-04] MEDS: valACYclovir HCL 500 MG TABLET (FP) PO SCH (09:24)
[2018-08-04] MEDS: TENOFOVIR DISOPROXIL FUMARATE 300 MG TABLET PO SCH (09:25)
[2018-08-04] MEDS: lamiVUDine 150 MG TABLET PO SCH (09:25)
[2018-08-04] MEDS: RITONAVIR 100 MG TABLET PO SCH (09:25)
[2018-08-04 10:07] LABS: ALBUMIN 2.9 g/dl (3.4-5.0); ALK PHOS 89 U/L (45-117); ANION GAP 6 MMOL/L (8-16); BILIRUBIN,TOTAL 0.4 mg/dL (0.2-1); BLOOD UREA NITROGEN 11 mg/dL (7-18); CALCIUM 7.9 mg/dL (8.5-10.1); CHLORIDE 106 mmol/L (98-107); CO2 30 mmol/L (21-32); CREATININE 0.9 mg/dL (0.55-1.3); GLUCOSE,RANDOM 84 mg/dL (74-106); POTASSIUM 4.3 mmol/L (3.5-5.1); SGOT/AST 42 U/L (15-37); SGPT/ALT 39 U/L (13-61); SODIUM 141 mmol/L (136-145)
[2018-08-04 12:03] LABS: BASO % 0.2 % (0-2.0); EOS % 0.1 % (0-4.5); HEMATOCRIT 28.1 % (32.4-45.2); HEMOGLOBIN 8.7 GM/dL (10.7-15.3); LYMPH % 5.5 % (8-40); MEAN CELL VOLUME 83.8 fl (80-96); MEAN PLT VOLUME 9.7 fl (7.5-11.1); MONO % 10.1 % (3.8-10.2); NEUT % 84.1 % (42.8-82.8); PLATELET COUNT 121 K/MM3 (134-434); RBC 3.36 M/mm3 (3.60-5.2); RDW 14.6 % (11.6-15.6); WHITE BLOOD COUNT 14.5 K/mm3 (4.0-10.0)
[2018-08-04 13:38] VITALS: BP 96/51; PULSE 88; TEMP 98.5
[2018-08-04 14:11] LABS: URINE APPEARANCE CLEAR; URINE BILIRUBIN NEGATIVE (<2.0 mg/dL); URINE COLOR STRAW; URINE GLUCOSE (UA) NEGATIVE (NEGATIVE); URINE KETONE NEGATIVE (NEGATIVE); URINE LEUK ESTERASE 1+ (NEGATIVE); URINE NITRITE NEGATIVE (NEGATIVE); URINE PROTEIN NEGATIVE (NEGATIVE); URINE UROBILINOGEN NEGATIVE mg/dL (0.2-1.0)
[2018-08-04 14:14] LABS: EPI CELLS RARE /HPF (FEW)
--- NOTE | 2018-08-04 15:03 | PN ---
Physical Exam: SUBJECTIVE: Patient seen and examined at the bedside. was able to ambulate further with PT today. discharge home with walker. OBJECTIVE: wbc improved given granix 08/03 will need to see hematology outpatient. 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 Vital Signs Period Temp Pulse Resp BP Sys/Inman Pulse Ox Last 24 Hr 98.3 F-99.3 F 70-88 18-20 91-117/51-60 98-98 GENERAL: The patient is awake, alert, and fully oriented, in no acute distress, cachectic. HEAD: Normal with no signs of trauma. EYES: PERRL, extraocular movements intact, sclera anicteric, conjunctiva clear. ENT: Ears normal, nares patent, oropharynx clear without exudates, moist mucous membranes. NECK: Trachea midline, full range of motion, supple. LUNGS: Breath sounds equal, clear to auscultation bilaterally, no wheezes, no crackles, no accessory muscle use. HEART: Regular rate and rhythm ABDOMEN: Soft, nontender, nondistended, normoactive bowel sounds, no guarding EXTREMITIES: no edema. NEUROLOGICAL: Normal speech, gait not observed. PSYCH: Normal mood, normal affect. SKIN: Warm, dry, normal turgor, no rashes or lesions noted. Laboratory Results - last 24 hr 08/04/18 08/04/18 08/04/18 06:15 09:05 09:05 WBC 14.5 H RBC 3.36 L Hgb 8.7 L Hct 28.1 L MCV 83.8 MCH 26.0 MCHC 31.0 L RDW 14.6 Plt Count 121 L MPV 9.7 Absolute Neuts (auto) 12.2 H Neutrophils % 84.1 H D Lymphocytes % 5.5 L D Monocytes % 10.1 Eosinophils % 0.1 Basophils % 0.2 Nucleated RBC % 0 Sodium 141 Potassium 4.3 Chloride 106 Carbon Dioxide 30 Anion Gap 6 L BUN 11 Creatinine 0.9 Creat Clearance w eGFR > 60 Random Glucose 84 Calcium 7.9 L Total Bilirubin 0.4 AST 42 H ALT 39 Alkaline Phosphatase 89 Total Protein 7.0 Albumin 2.9 L Urine Color Straw Urine Appearance Clear Urine pH 6.0 Ur Specific [place] 1.006 L Urine Protein Negative Urine Glucose (UA) Negative Urine Ketones Negative Urine Blood Negative Urine Nitrite Negative Urine Bilirubin Negative Urine Urobilinogen Negative Ur Leukocyte Esterase 1+ H Urine WBC (Auto) 3 Urine RBC (Auto) 1 Ur Epithelial Cells Rare Active Medications Generic Name Dose Route Start Last Admin Trade Name Mary Kate PRN Reason Stop Dose Admin Abacavir Sulfate 600 mg 08/02/18 12:30 08/04/18 09:24 Ziagen - PO 600 mg DAILY SHERI Administration Darunavir 800 mg 08/03/18 10:00 08/04/18 09:24 Prezista - PO 800 mg DAILY SHERI Administration Sodium Chloride 1,000 mls @ 75 mls/hr 08/03/18 16:00 08/03/18 17:48 Normal Saline - IV 75 mls/hr ASDIR SHERI Administration Lamivudine 300 mg 08/03/18 10:00 08/04/18 09:25 Epivir - PO 300 mg DAILY SHERI Administration Mirtazapine 15 mg 07/30/18 22:00 08/03/18 22:24 Remeron - PO 15 mg HS SHERI Administration Nystatin 500,000 units 08/03/18 18:00 08/04/18 14:05 Nystatin Oral Suspension - PO Not Given Q6HPO SHERI Ritonavir 100 mg 08/02/18 14:00 08/04/18 09:25 Norvir - PO 100 mg DAILY SHERI Administration Tenofovir Disoproxil Fumarate 300 mg 08/02/18 14:00 08/04/18 09:25 Viread - PO 300 mg DAILY SHERI Administration Tramadol HCl 50 mg 07/30/18 18:44 08/03/18 22:24 Ultram - PO 50 mg Q4H PRN Administration PAIN LEVEL 6-10 Valacyclovir HCl 500 mg 08/02/18 22:00 08/04/18 09:24 Valtrex - PO 500 mg BID SHERI Administration ASSESSMENT/PLAN: Patient is a 63 year old female with a PMH significant for HIV (on HAART since 2004), HTN, COPD, Anemia, anorexia, and herpes presented to the ED with several weeks of diarrhea occasional BRBPR (only noted when wiping), loss of appetite, and weakness for the past several weeks. Upon admission to the ED, temperature was 99.1. She was given IV fluids and placed on observation. GI: Gastritis, resolved. no further episodes of diarrhea, no nausea or vomiting. tolerating diet. Hematology: Leukopenia. Secondary to being off her HIV meds for several weeks. Given Granix 08/03/18, wbc 14 Patient to follow up outpatient. hmg/hct stable. no further reports of gi bleed. ID: HIV On HAART therapy, to continue outpatient. Neuro: Reports of dizziness with ambulation. ambulation improved today, pt walked 50 feet. pt to be discharged home with RW. Visit type - Emergency Visit Emergency Visit: Yes ED Registration Date: 08/03/18 Care time: The patient presented to the Emergency Department on the above date and was hospitalized for further evaluation of their emergent condition. - New Patient This patient is new to me today: No - Critical Care Critical Care patient: No - Discharge Referral Referred to [facility] Med [facility].: No
--- NOTE | 2018-08-04 17:05 | PATH ---
Surgical Pathology Report Patient Name: ANIKA ALLEN Med. Rec. #: [id number] /Age/Gender: 1955 (Age: 63) / F Account: [id number] [facility] Taken: 08/03/2018 Received: 08/03/2018 Reported: 08/04/2018 Physicians: Barb Gill M.D. Specimen(s) Received 2 GREEN TOP TUBES Clinical History HIV positive, leukopenia Final Diagnosis COMPREHENSIVE FLOW PANEL performed and interpreted at [facility] laboratory, [place], [place] ([id number]) shows the following: INTERPRETATION: The monocytic cells are 18% of total events. There is no evidence of B or T-cell proliferative disorders or increased blasts. The CD4:CD8 ratio is 0.3:1. See comment. Comment: The findings do not differ significantly from those described in the prior flow cytometric assessment of a peripheral blood sample on record ([id number], 05/2018). See [facility] report ([id number]) for additional details. Electronically Signed Aleksandra Guzman M.D. Gross Description Received are 2 green top tubes of peripheral blood which are sent to [facility]. DL/08/03/2018 saudi08/03/2018
== END 2018-08-04 17:52 | disposition home or self-care (01) | DRG 808 ==
LOC: JER 11:06 → JERBED 15:30 → INTOOBSV 15:30 → UNDOADMOB 15:30 → JERBED 16:41 → J5S 17:30 → J7W 08-02 22:44 → OBSVTOIN 08-03 16:07
PROVIDERS: ADMIT Internal Medicine; ATTEND Nurse Practitioner Family
DX: D61.818 Other pancytopenia (principal); E43 Unspecified severe protein-calorie malnutrition; B20 Human immunodeficiency virus [HIV] disease; F50.00 Anorexia nervosa, unspecified; K62.5 Hemorrhage of anus and rectum; R64 Cachexia; Z68.1 Body mass index [BMI] 19.9 or less, adult; E86.0 Dehydration; D64.9 Anemia, unspecified; J44.9 Chronic obstructive pulmonary disease, unspecified; I10 Essential (primary) hypertension; Z88.0 Allergy status to penicillin; K52.9 Noninfective gastroenteritis and colitis, unspecified; K29.60 Other gastritis without bleeding; G47.00 Insomnia, unspecified; M54.5 Low back pain; F32.9 Major depressive disorder, single episode, unspecified
CPT/HCPCS: 36415; 71045-TC-FY; 80048; 80053; 81003; 81015; 82550; 82607; 82747; 82803; 83605; 83615; 83735; 84484; 84550; 85014; 85025; 85027; 85610; 85730; 86850; 86900; 86901; 87040; 87086; 87804; 88300-TC; 93005; 93010; 97116-GP; 97162-GP; 99283-25; G0378; J1447; J7030

== ENCOUNTER 2018-09-29 13:14 | Inpatient (IN) | payer OTHER ==
--- NOTE | 2018-09-29 13:30 | PDOC ---
Rapid Medical Evaluation Chief Complaint: Weakness Time Seen by Provider: 09/29/18 13:25 Medical Evaluation: Allergies Allergy/AdvReac Type Severity Reaction Status Date / Time Penicillins Allergy Unknown Swelling Verified 09/29/18 13:24 MAYONAISE AdvReac Uncoded 09/29/18 13:24 09/29/18 13:27 I performed a brief in-person evaluation of this patient. Chief complaint is: Fever, weakness, productive cough, hx HIV Pertinent physical exam findings include: BP 89/54, HR 107 + lorena I have ordered the following: Septic workup Patient will proceed to the ED for further evaluation. Discharge Disposition - Diagnosis Sepsis Qualifiers: Sepsis type: sepsis due to unspecified organism Qualified Code(s): A41.9 - Sepsis, unspecified organism - Referrals - Patient Instructions - Post Discharge Activity
[2018-09-29] MEDS ORDERED: SODIUM CHLORIDE 1,769 ML IV ONE (13:31)
--- NOTE | 2018-09-29 14:11 | PDOC ---
History of Present Illness - General Chief Complaint: Weakness Stated Complaint: WEAKNESS Time Seen by Provider: 09/29/18 13:25 - History of Present Illness Initial Comments: The pt is a 63F w/ a history of HIV/HSV w/ intermittent compliance, COPD, HTN, previous shingles, anorexia, and chronic anemia who presents for evaluation of fevers/chills (Tm 100.6), productive cough, and generalized weakness that has been worsening over the last two weeks. She reports having 2 weeks of waxing/ waning generalized malaise/myalgias that have been overall worsening for 2 weeks. She endorses an associated intemittently productive cough. She also reports concern over polyuria but dark urine. She denies ECHEVERRIA, vision changes, chest pain, current SOB, abdominal pain, N/V/C/D , dysuria, or hematuria. Reports that she has been taking her anti-virals for the last 4 days consistently and she is trying to improve her compliance. 09/29/18 14:10 Past History - Past Medical History Allergies/Adverse Reactions: Allergies Allergy/AdvReac Type Severity Reaction Status Date / Time Penicillins Allergy Severe Swelling Verified 09/29/18 15:28 MAYONAISE AdvReac Uncoded 09/29/18 13:24 Home Medications: Ambulatory Orders Tenofovir Disoproxil Fumarate 300 mg PO DAILY 06/15/18 Abacavir Sulfate/Lamivudine [Abacavir-Lamivudine 600-300 mg] 1 each PO DAILY # 30 tablet 08/17/18 Albuterol Sulfate Inhaler - [Ventolin HFA Inhaler -] 1 - 2 inh PO Q4H #1 inhaler 08/17/18 Darunavir Ethanolate [Prezista -] 800 mg PO DAILY #30 tablet 08/17/18 Lactobacillus Acidophilus [Probiotic] 0 mg PO DAILY #30 capsule 08/17/18 Ritonavir 100 mg PO DAILY #30 tablet 08/17/18 Tenofovir Disoproxil Fumarate [Viread] 300 mg PO DAILY #30 tablet 08/17/18 Valacyclovir HCl [Valtrex -] 500 mg PO BID #60 tablet 08/17/18 Atovaquone [Mepron -] 750 mg PO DAILY@0800 09/29/18 Anemia: Yes Asthma: No Cancer: No Cardiac Disorders: No CVA: No COPD: Yes CHF: No DVT: No Dementia: No Diabetes: No GI Disorders: Yes (GERD, ANOREXIA, LAST EGD 2013) Disorders: No HTN: Yes Hypercholesterolemia: No Liver Disease: No Psychiatric Problems: Yes (ANXIETY) Seizures: No Other medical history: anorexia,neuropathy - Surgical History Abdominal Surgery: Yes (EXPLORATORY) - Immunization History Immunization Up to Date: Yes - Suicide/Smoking/Psychosocial Hx Smoking Status: No Smoking History: Current some day smoker Have you smoked in the past 12 months: Yes Number of Cigarettes Smoked Daily: 2 If you are a former smoker, when did you quit?: 2 months ago Cigars Per Day: 0 Information on smoking cessation initiated: No 'Breaking Loose' booklet given: 12/15/17 Hx Alcohol Use: No Drug/Substance Use Hx: No Substance Use Type: None Hx Substance Use Treatment: No Review of Systems - Review of Systems Able to Perform ROS?: Yes Comments:: GENERAL/CONSTITUTIONAL: +fevers/generalized weakness HEAD, EYES, EARS, NOSE AND THROAT: No change in vision. No ear pain or discharge. No sore throat CARDIOVASCULAR: No chest pain RESPIRATORY: +cough; denies hemoptysis GASTROINTESTINAL: +intermittent diarrhea associated w/ increased PO intake after anorexic periods; No nausea, vomiting, constipation GENITOURINARY: No dysuria or hematuria MUSCULOSKELETAL: No joint or muscle swelling or pain. No neck or back pain SKIN: No rash NEUROLOGIC: No headache, vertigo, loss of consciousness, or change in strength/ sensation ENDOCRINE: No increased thirst. No abnormal weight change HEMATOLOGIC/LYMPHATIC: No anemia, easy bleeding, or history of blood clots ALLERGIC/IMMUNOLOGIC: No hives or skin allergy 09/29/18 14:25 Is the patient limited Mohawk proficient: No *Physical Exam - Vital Signs Last Vital Signs Temp Pulse Resp BP Pulse Ox 99.3 F 107 H 20 89/54 L 100 09/29/18 13:25 09/29/18 13:25 09/29/18 13:25 09/29/18 13:25 09/29/18 13:25 - Physical Exam Comments: GENERAL: Awake, alert, and fully oriented, in no acute distress HEAD: No signs of trauma, normocephalic, atraumatic EYES: PERRLA, EOMI, sclera anicteric, conjunctiva clear ENT: Hearing grossly normal, nares patent, oropharynx clear without exudates. Moist mucosa LUNGS: No distress, speaks full sentences, clear to auscultation bilaterally HEART: Tachycarida w/ regular rhythm, normal S1 and S2, no murmurs appreciated, peripheral pulses normal and equal bilaterally ABDOMEN: Soft, nontender, normoactive bowel sounds. No guarding, no rebound EXTREMITIES : Normal inspection, Normal range of motion, no edema. No clubbing or cyanosis NEUROLOGICAL: Cranial nerves II through XII grossly intact. Normal speech, normal gait, no focal sensorimotor deficits SKIN: Warm, Dry, normal turgor 09/29/18 14:26 Moderate Sedation - Procedure Monitoring Vital Signs: Procedure Monitoring Vital Signs Temperature 99.3 F 09/29/18 13:25 Pulse Rate 107 H 09/29/18 13:25 Respiratory Rate 20 09/29/18 13:25 Blood Pressure 89/54 L 09/29/18 13:25 O2 Sat by Pulse Oximetry (%) 100 09/29/18 13:25 ED Treatment Course - LABORATORY CBC & Chemistry Diagram: 09/29/18 14:00 09/29/18 16:50 Medical Decision Making - Medical Decision Making The pt is a 63F w/ a history of HIV/HSV (w/ intermittent compliance), COPD, HTN , anorexia, and chronic anemia who presents for evaluation of 2 wks of fevers/ malaise, generalized myalgias, and intermittent productive cough. Pt received flu vaccine this year. ED Course CMP, CBC, Lactate, VBG, Blood/Urine Cx, UA, CD4 counts, rapid influenza ECG CXR 2L NS bolus and will continue IVF for sepsis/hypotension/resuscitation 09/29/18 14:26 Rapid flu neg ECG w/ sinus tachycardia, HR 105; Prolonged QTc 544 09/29/18 14:33 Patient w/o acedemia/alkalemia Remainder of labs pending 09/29/18 15:24 Lactate 2.2 -Continue IVF 09/29/18 15:45 CMP reported as hemolyzed by lab, redrawn and sent myself 09/29/18 17:03 ID consulted -Doxycycline, Ceftriaxone, and Acyclovir given CXR w/o evidence of consolidation, PNX, effusion Repeat lactate pending Lytes wnl WBC 2.3 Dispo: Admit 09/29/18 20:11 *DC/Admit/Observation/Transfer Diagnosis at time of Disposition: Fever and chills, Cough Sepsis Qualifiers: Sepsis type: sepsis due to unspecified organism Qualified Code(s): A41.9 - Sepsis, unspecified organism HIV (human immunodeficiency virus infection) Qualifiers: HIV symptom status: unspecified Qualified Code(s): B20 - Human immunodeficiency virus [HIV] disease - Discharge Dispostion Condition at time of disposition: Fair Decision to Admit order: Yes - Referrals - Patient Instructions - Post Discharge Activity
[2018-09-29 14:29] LABS: VENOUS PC02 52.1 mmHg (38-52); VENOUS PH 7.34 (7.32-7.42); VENOUS PO2 24.5 mmHg (28-48)
--- NOTE | 2018-09-29 15:19 | EKG ---
Test Reason : Blood Pressure : / mmHG Vent. Rate : 105 BPM Atrial Rate : 105 BPM P-R Int : 146 ms QRS Dur : 074 ms QT Int : 412 ms P-R-T Axes : 065 085 086 degrees QTc Int : 544 ms POOR DATA QUALITY, INTERPRETATION MAY BE ADVERSELY AFFECTED SINUS TACHYCARDIA PROLONGED QT ABNORMAL ECG WHEN COMPARED WITH ECG OF 01-AUG-2018 15:16, QT HAS LENGTHENED Confirmed by MORTEZA FIELDS, DONALD ([id number]) on 09/29/2018 3:18:34 PM Referred By: Confirmed By:DONALD PRO MD
[2018-09-29 15:29] LABS: BASO % 0.7 % (0-2.0); EOS % 0.2 % (0-4.5); HEMATOCRIT 34.8 % (32.4-45.2); HEMOGLOBIN 11.4 GM/dL (10.7-15.3); LYMPH % 16.9 % (8-40); MCH 27.6 pg (25.7-33.7); MCHC 32.8 g/dl (32.0-36.0); MEAN CELL VOLUME 84.1 fl (80-96); MEAN PLT VOLUME 8.5 fl (7.5-11.1); MONO % 18.6 % (3.8-10.2); NEUT % 63.6 % (42.8-82.8); PLATELET COUNT 149 K/MM3 (134-434); RBC 4.14 M/mm3 (3.60-5.2); RDW 15.4 % (11.6-15.6); WHITE BLOOD COUNT 2.3 K/mm3 (4.0-10.0)
[2018-09-29] MEDS ORDERED: ACETAMINOPHEN 1000 MG/100 ML VIAL (NON FORMULARY) IVPB ONE (15:36)
[2018-09-29] MEDS ORDERED: SODIUM CHLORIDE 1,000 ML IV SCH (15:45)
--- NOTE | 2018-09-29 15:46 | PDOC ---
Attending Attestation - Resident Resident Name: IvanBro ceron - ED Attending Attestation I have performed the following: I have examined & evaluated the patient, The case was reviewed & discussed with the resident, I agree w/resident's findings & plan, Exceptions are as noted - HPI HPI: 09/29/18 15:55 63 F with h/o HIV (noncompliant with meds, unknown CD4/viral load), COPD, HTN, shingles, anorexia, anemia, presenting to ED with fevers, cough, and malaise. Pt states that it started about 2 weeks ago. She endorses fevers with Tmax 100.6 at home. Also states that she has had generalized weakness and body aches. Reports cough. Denies CP/SOB. Denies N/V/D/abdominal pain. Pt notes that she started taking her ARVs 4 days ago but had not been taking them consistently prior to that. - Physicial Exam PE: 09/29/18 16:00 Agree with resident exam - Medical Decision Making 09/29/18 16:01 63 F with fevers, malaise, cough. Noncompliant with ARVs. Last CD4 was approx 250. Will evaluate for sepsis. - Labs, LDH, lactate - cultures - CXR, UA - IVF, abx
[2018-09-29] MEDS ORDERED: ACETAMINOPHEN INJECTION 100 ML IVPB ONE (15:56)
[2018-09-29 17:30] LABS: ALBUMIN 3.1 g/dl (3.4-5.0); ALK PHOS 89 U/L (45-117); ANION GAP 7 MMOL/L (8-16); BILIRUBIN,TOTAL 0.4 mg/dL (0.2-1); BLOOD UREA NITROGEN 11 mg/dL (7-18); CALCIUM 7.5 mg/dL (8.5-10.1); CHLORIDE 106 mmol/L (98-107); CO2 27 mmol/L (21-32); CREATININE 1.1 mg/dL (0.55-1.3); GLUCOSE,RANDOM 106 mg/dL (74-106); POTASSIUM 3.6 mmol/L (3.5-5.1); SGOT/AST 95 U/L (15-37); SGPT/ALT 64 U/L (13-61); SODIUM 141 mmol/L (136-145); TOT PROT 7.6 g/dl (6.4-8.2)
--- NOTE | 2018-09-29 18:23 | HP ---
<Patsy Garvin - Last Filed: 11/11/18 10:40> CHIEF COMPLAINT: " Weak and tired" PCP: Dr. Ivey HISTORY OF PRESENT ILLNESS: Patient is a 63 year old female came in to the ED with the chief complaint of " feeling weak and tired" x few weeks. As per the patient, her symptoms got worse since 2 days hence came in to the ED for further evaluation and treatment. Patient reports she has had productive cough, greenish-yellowish phlegm for the past few weeks. Denies fever, chills, rigors, sweating, shortness of breath, palpitations, abdominal pain, nausea or vomiting. No urinary symptoms. Reports that since the arrival to the ED, has had 3 episodes of diarrhoea, watery, non fowl smelling. In the ED, while talking to her, patient dozed off > 10 times, arousable but very lethargic, answered to questions appropriately. Patient was recently seen by Dr. Ivey at her clinic on 08/17/18 for left sided chest pain after a fall. Patient reports that she had a mechanical fall while cleaning the house. Her last CD4 count in 08/24 was above 200. Patient was admitted at [facility] from 07/30/18-08/04/18 for Diarrhoea ER course was notable for: (1) Febrile 100.4, tachycardic 110, hypotensive 89/54 mmHg, Neutropenia 2.3, lactic acid 2.2 (2) CXR: No acute pathology. EKG: Sinus tachycardia, Qtc 544 (3) IV NS, IV Doxycycline 100mg Recent Travel: Visited [place] in Jul, 2018 for vacation PAST MEDICAL HISTORY: Asthma; COPD; Anemia; Anxiety; HIV (2004), non compliance PAST SURGICAL HISTORY: Tonsillectomy and C-sec Social History: Smoking: Used to smoke 5-6 cigarettes per week for >40 years, quit since 2 months Alcohol: Occasional EtOH drink Drugs: Used to sniff cocaine - quit 10 years ago Family History: Non contributory Allergies Penicillins Allergy (Severe, Verified 09/29/18 15:28) Swelling MAYONAISE Adverse Reaction (Uncoded 09/29/18 13:24) HOME MEDICATIONS: Home Medications Medication Instructions Recorded Tenofovir Disoproxil Fumarate 300 mg PO DAILY 06/15/18 Abacavir Sulfate/Lamivudine 1 each PO DAILY #30 tablet 08/17/18 [Abacavir-Lamivudine 600-300 mg] Albuterol Sulfate Inhaler - 1 - 2 inh PO Q4H #1 inhaler 08/17/18 [Ventolin HFA Inhaler -] Darunavir Ethanolate [Prezista -] 800 mg PO DAILY #30 tablet 08/17/18 Lactobacillus Acidophilus 0 mg PO DAILY #30 capsule 08/17/18 [Probiotic] Ritonavir 100 mg PO DAILY #30 tablet 08/17/18 Tenofovir Disoproxil Fumarate 300 mg PO DAILY #30 tablet 08/17/18 [Viread] Valacyclovir HCl [Valtrex -] 500 mg PO BID #60 tablet 08/17/18 REVIEW OF SYSTEMS CONSTITUTIONAL: Absent: fever, chills, diaphoresis, generalized weakness, malaise, loss of appetite, weight change HEENT: Absent: rhinorrhea, nasal congestion, throat pain, throat swelling, difficulty swallowing, mouth swelling, ear pain, eye pain, visual changes CARDIOVASCULAR: Absent: chest pain, syncope, palpitations, irregular heart rate, lightheadedness , peripheral edema RESPIRATORY: Present: cough, Absent: shortness of breath, dyspnea with exertion, orthopnea, wheezing, stridor , hemoptysis GASTROINTESTINAL: Absent: abdominal pain, abdominal distension, nausea, vomiting, diarrhea, constipation, melena, hematochezia GENITOURINARY: Absent: dysuria, frequency, urgency, hesitancy, hematuria, flank pain, genital pain MUSCULOSKELETAL: Absent: myalgia, arthralgia, joint swelling, back pain, neck pain SKIN: Absent: rash, itching, pallor HEMATOLOGIC/IMMUNOLOGIC: Absent: easy bleeding, easy bruising, lymphadenopathy, frequent infections ENDOCRINE: Absent: unexplained weight gain, unexplained weight loss, heat intolerance, cold intolerance NEUROLOGIC: Absent: headache, focal weakness or paresthesias, dizziness, unsteady gait, seizure, mental status changes, bladder or bowel incontinence PSYCHIATRIC: Absent: anxiety, depression, suicidal or homicidal ideation, hallucinations. PHYSICAL EXAMINATION Vital Signs - 24 hr 09/29/18 09/29/18 09/29/18 13:25 13:31 14:33 Temperature 99.3 F 100.4 F H Pulse Rate 107 H Pulse Rate [ 100 H Left] Respiratory 20 17 Rate Blood Pressure 89/54 L Blood Pressure 102/68 [Right Arm] O2 Sat by Pulse 100 100 Oximetry (%) 09/29/18 14:38 Temperature Pulse Rate Pulse Rate [ Left] Respiratory Rate Blood Pressure Blood Pressure [Right Arm] O2 Sat by Pulse 100 Oximetry (%) GENERAL: Middle aged female, lying in bed comfortably, lethargic, drowsy but arousable, fully oriented, in no acute distress. EYES: EOM intact, no pallor or icterus. NECK: Supple, no JVD. LUNGS: B/L minimal crackles, no wheeze. HEART: Regular rate and rhythm, normal S1 and S2 without murmur, rub or gallop. ABDOMEN: Soft, nontender, no organomegaly. UPPER EXTREMITIES: 2+ pulses, warm, well-perfused. No cyanosis. No clubbing. No peripheral edema. LOWER EXTREMITIES: 2+ pulses, warm, well-perfused. No calf tenderness. No peripheral edema. NEUROLOGICAL: No facial droop. Normal speech. Gait not observed. PSYCHIATRIC: Cooperative. Good eye contact. Appropriate mood and affect. SKIN: Warm, dry, normal turgor, no rashes or lesions noted, normal capillary refill. Laboratory Results - last 24 hr 09/29/18 09/29/18 09/29/18 13:30 14:00 14:18 WBC 2.3 L RBC 4.14 Hgb 11.4 Hct 34.8 MCV 84.1 MCH 27.6 MCHC 32.8 RDW 15.4 Plt Count 149 D MPV 8.5 Absolute Neuts (auto) 1.4 L Neutrophils % 63.6 Lymphocytes % 16.9 Monocytes % 18.6 H Eosinophils % 0.2 D Basophils % 0.7 Nucleated RBC % 0 VBG pH 7.34 POC VBG pCO2 52.1 H POC VBG pO2 24.5 L Mixed VBG HCO3 27.5 H Sodium Potassium Chloride Carbon Dioxide Anion Gap BUN Creatinine Creat Clearance w eGFR Random Glucose Lactic Acid Calcium Total Bilirubin AST ALT Alkaline Phosphatase LD Total Total Protein Albumin Influenza A (Rapid) Negative Influenza B (Rapid) Negative 09/29/18 09/29/18 09/29/18 14:20 14:20 16:50 WBC RBC Hgb Hct MCV MCH MCHC RDW Plt Count MPV Absolute Neuts (auto) Neutrophils % Lymphocytes % Monocytes % Eosinophils % Basophils % Nucleated RBC % VBG pH POC VBG pCO2 POC VBG pO2 Mixed VBG HCO3 Sodium Cancelled Potassium Cancelled Chloride Cancelled Carbon Dioxide Cancelled Anion Gap Cancelled BUN Cancelled Creatinine Cancelled Creat Clearance w eGFR Cancelled Random Glucose Cancelled Lactic Acid 2.2 H* Calcium Cancelled Total Bilirubin Cancelled AST Cancelled ALT Cancelled Alkaline Phosphatase Cancelled LD Total Cancelled 235 Total Protein Cancelled Albumin Cancelled Influenza A (Rapid) Influenza B (Rapid) 09/29/18 16:50 WBC RBC Hgb Hct MCV MCH MCHC RDW Plt Count MPV Absolute Neuts (auto) Neutrophils % Lymphocytes % Monocytes % Eosinophils % Basophils % Nucleated RBC % VBG pH POC VBG pCO2 POC VBG pO2 Mixed VBG HCO3 Sodium 141 Potassium 3.6 Chloride 106 Carbon Dioxide 27 Anion Gap 7 L BUN 11 Creatinine 1.1 Creat Clearance w eGFR 50.33 Random Glucose 106 Lactic Acid Calcium 7.5 L Total Bilirubin 0.4 AST 95 H ALT 64 H Alkaline Phosphatase 89 LD Total Total Protein 7.6 Albumin 3.1 L Influenza A (Rapid) Influenza B (Rapid) Abacavir Sulfate/Lamivudine [Abacavir-Lamivudine 600-300 mg] 1 each PO DAILY 05/25 Albuterol Sulfate Inhaler - [Ventolin HFA Inhaler -] 1 - 2 inh PO Q4H 06/15/18 Atovaquone [Mepron Oral Solution -] 750 mg PO ASDIR 06/15/18 Darunavir Ethanolate [Prezista -] 800 mg PO DAILY 06/15/18 Lactobacillus Acidophilus [Probiotic] 0 mg PO DAILY 06/15/18 Ritonavir 100 mg PO DAILY 06/15/18 Tenofovir Disoproxil Fumarate 300 mg PO DAILY 06/15/18 Valacyclovir HCl [Valtrex -] 500 mg PO BID 06/15/18 ASSESSMENT/PLAN: Patient is a 63 year old female with PMHx of Asthma; COPD; Anemia; Anxiety; HIV (2004), non compliance came in to the ED with the chief complaint of " feeling weak and tired" x few weeks. # SIRS- unknown etiology pt c/o lethargy, productive cough. R/O Pneumonia, other HIV opportunistic infections Febrile 100.4, tachycardic 110, hypotensive 89/54 mmHg, Neutropenia 2.3, lactic acid 2.2--> pending Flu negative, cxr negative Admit to Med-surg.Inpatient IV NS @ 100 mls/hr IV Doxycyline 100mg BID (cannot give Qtc prolonging agents; patient allergic to penicillins so abx choice is limited) Blood cultures/urine cultures pending Trend lactic acid. Abdomen/Pelvis CT stat Dr. Ivey consult requested. # Neutropenia WBC 2.3, was given neupogen last admission. It could be from sepsis vs HAART therapy Repeat in AM # Diarrhoea 3 episodes today. Start Bacid Stool cultures, stool ova, parasites, crypto,giardia ordered # Transaminitis Could be from HAART therapy. Abdomen/Pelvis CT stat # HIV on HAART therapy CD4 count in 08/24 was above 200 Continue Abacavir Sulfate/Lamivudine [Abacavir-Lamivudine 600-300 mg; Tenofovir ; Valtrex; Ritonavir; Prezista CD4 count ordered # Hx of Polysubstance abuse. Urine tox ordered. # Protein calorie malnutrition BMI 16, encourage PO intake # FEN IV NS @ 100mls/hr Electrolytes WNL Regular diet # Prophylaxis For DVT: Heparin 5000 IU sq TID For GI: Not indicated # COde Status: FUll Code # Dispo: Admit to Med/Surg. Duration of stay unknown. Illness, Investigation and Plan of care explained to the patient. She verbalized understanding. Case discussed with Dr. Zayas. Visit type - Emergency Visit Emergency Visit: Yes ED Registration Date: 09/29/18 Care time: The patient presented to the Emergency Department on the above date and was hospitalized for further evaluation of their emergent condition. - New Patient This patient is new to me today: Yes Date on this admission: 09/29/18 - Critical Care Critical Care patient: No <Ortiz Zayas - Last Filed: 11/15/18 21:26> Seen and examined; agree with the above aside from what is supplemented by myself in my own documentation. Reviewed all roberts parts of history and exam with resident team and verified independently.
[2018-09-29] MEDS ORDERED: ACYCLOVIR INJECTION 500 MG in DEXTROSE 5%-WATER - 100 ML IVPB ONE (18:28)
[2018-09-29] MEDS: SODIUM CHLORIDE 1,000 ML IV SCH (18:31)
[2018-09-29] MEDS ORDERED: CEFTRIAXONE 2,000 MG in DEXTROSE 5%-WATER - 50 ML IVPB ONE (18:43)
[2018-09-29] MEDS ORDERED: AZITHROMYCIN 250 MG TABLET PO ONE (18:43)
[2018-09-29] MEDS ORDERED: ALBUTEROL SO4 8 GM HFA INHALER IH PRN (19:03)
[2018-09-29] MEDS ORDERED: DOXYCYCLINE HYCLATE 100 MG VIAL ONE (19:40)
--- NOTE | 2018-09-29 19:40 | PN ---
Teaching Attending Note Name of Resident: Patsy Garvin ATTENDING PHYSICIAN STATEMENT I saw and evaluated the patient. I reviewed the resident's note and discussed the case with the resident. I agree with the resident's findings and plan as documented. SUBJECTIVE: Seen and examined with resident; please refer to their note for further historical information. Patient is known to me from prior admits. She is a 63 y/o AAF presenting to the ER with a CC of malaise/weakness and diarrhea for 1 day; she has been noncompliant with her HAART up until several days ago and recently restarted prior to the diarrheal sx starting. Watery, nonbloody. No felicia abdominal pain. She is febrile and her BP is at baseline which runs chronically low. HR was initally 100. Dr. Pena was called and recommended empiric abx therapy. UA and repeat lactate still pending. Monitoring on the floor. 10 sys ROS done and negative aside from HPI PMH and PSH reviewed FH asked and nonocontributory Social history reviewed Medication list reviewed; pending reconciliation OBJECTIVE: VS, labs, imaging reveiwed NAD, AAO, resting in bed NC AT EOMI PERRLA NT ND somewhat increased BS RRR s1/2 no mgr Lungs CTAB w/ sym exp CN2-12 wnl, no fnd. Negative meningeal signs Normal mood, appropriate affect Labs reviewed; WBC 2.3 with ANC of 1.4; CD4 and viral load pending. Reviewed old CD4 counts; 252 in 05/2018 and >200 in august per the patient. 2.2 LA initially. AST/ALT 95/64 Alb 3.1 UA pending negative flu ASSESSMENT AND PLAN: Patient presents for weakness and 1 day of diarrhea after restarting their HAART medication; she is found to have tachycardia and [id number]-et-vytuxpdd positive lactate to 2.2; she is completely hemodynamically stable at this point with no obvious source for infection with abdominal imaging and stool studies pending. 1) Acute weakness/malaise -Consulting PT; could be related to HIV, medications, underlying occult process , etc. -Hydrated; continue with IVF overnight and treat with empiric abx, continue home meds, address diarrhea, etc. 2) HIV on HAART with intermittent compliance -ID consulted; continue HAART while inpatient. -Checking CD4 and viral load 3) Acute Diarrhea -Followup imaging, stool studies. Empiric abx per ID. -If negative stool studies can give PRN lomotil 4) Positive lactate -Only 2.2 which is easily explained by diarrhea; recheck. 5) SIRS+ on presentation to ER -Completely resolved at this juncture aside from fevers -No obvious source at this point but CT and UA still pending -Can be from diarrhea causing fluid depletion, meds, or occult infection. Check ESR/CRP, followup cultures, on empiric abx per ID 6) Transaminitis -Check hepatitis pannel, FU abd imaging, trend CMP -Consider relation to recently restarted HAART; some agents have been shown in case reports to cause transient LFT elevations. 7) Leukopenia -Noted at 2.3; has been an issue with her in the past. Trend CBC and consider heme consultation in the AM. -Given Granix in the past and has been seen here by Dr. Day
[2018-09-29 20:15] LABS: BASO % 1.1 % (0-2.0); EOS % 0.1 % (0-4.5); HEMOGLOBIN 8.5 GM/dL (10.7-15.3); LYMPH % 15.9 % (8-40); MCH 27.5 pg (25.7-33.7); MCHC 32.8 g/dl (32.0-36.0); MEAN CELL VOLUME 83.8 fl (80-96); MEAN PLT VOLUME 8.9 fl (7.5-11.1); MONO % 25.3 % (3.8-10.2); NEUT % 57.6 % (42.8-82.8); PLATELET COUNT 135 K/MM3 (134-434); RDW 15.2 % (11.6-15.6); WHITE BLOOD COUNT 2.2 K/mm3 (4.0-10.0)
[2018-09-29 20:32] LABS: INR 0.98 (0.83-1.09); PROTHROMBIN TIME (PATIENT) 11.6 SEC (9.7-13.0)
[2018-09-29 20:35] LABS: ACTIVATED PTT 27.5 SECONDS (25.2-36.5)
[2018-09-29] MEDS: DOXYCYCLINE INJECTION 100 MG in DEXTROSE 5%-WATER - 100 ML IVPB SCH (21:10)
[2018-09-29] MEDS ORDERED: DOXYCYCLINE INJECTION 100 MG in DEXTROSE 5%-WATER - 100 ML IVPB SCH (22:00)
[2018-09-29 23:31] LABS: PLATELET ESTIMATE ADEQUATE
[2018-09-30] MEDS: HEPARIN NA (PORCINE) 5,000 UNITS/ML 1ML VIAL SQ SCH ×4 (01:58→22:01)
[2018-09-30] MEDS: valACYclovir HCL 500 MG TABLET (FP) PO SCH ×3 (01:58→22:00)
[2018-09-30 07:47] LABS: BASO % 0.4 % (0-2.0); EOS % 0.1 % (0-4.5); HEMATOCRIT 27.4 % (32.4-45.2); MCH 27.5 pg (25.7-33.7); MCHC 32.7 g/dl (32.0-36.0); MEAN PLT VOLUME 9.2 fl (7.5-11.1); MONO % 32.9 % (3.8-10.2); NEUT % 40.6 % (42.8-82.8); PLATELET COUNT 134 K/MM3 (134-434); RBC 3.27 M/mm3 (3.60-5.2); RDW 15.2 % (11.6-15.6)
[2018-09-30] MEDS ORDERED: ATOVAQUONE 750 MG PO SCH (08:00)
[2018-09-30 08:15] LABS: WHITE BLOOD COUNT 1.4 K/mm3 (4.0-10.0)
[2018-09-30 08:19] LABS: ALBUMIN 2.9 g/dl (3.4-5.0); ALK PHOS 84 U/L (45-117); ANION GAP 6 MMOL/L (8-16); BILIRUBIN,TOTAL 0.3 mg/dL (0.2-1); BLOOD UREA NITROGEN 8 mg/dL (7-18); CALCIUM 7.2 mg/dL (8.5-10.1); CHLORIDE 110 mmol/L (98-107); CO2 27 mmol/L (21-32); GLUCOSE,RANDOM 79 mg/dL (74-106); MAGNESIUM 2.2 mg/dL (1.8-2.4); PHOSPHOROUS 2.9 mg/dL (2.5-4.9); SGOT/AST 74 U/L (15-37); SGPT/ALT 57 U/L (13-61); SODIUM 143 mmol/L (136-145)
[2018-09-30] MEDS ORDERED: PT OWN MED DRAWER 7, Y5N ONE ×3 (08:53→21:36)
[2018-09-30] MEDS ORDERED: PATIENT'S OWN MEDICATION (NON-FORMULARY) (Abacavir Sulfate/Lamivudine [Abacavir-Lamivudine PO SCH (10:00)
[2018-09-30] MEDS: RITONAVIR 100 MG TABLET PO SCH (10:23)
[2018-09-30] MEDS: lamiVUDine 150 MG TABLET PO SCH (10:23)
[2018-09-30] MEDS: ABACAVIR SULFATE 300 MG TABLET PO SCH (10:23)
[2018-09-30] MEDS: DARUNAVIR ETHANOLATE 800 MG TAB PO SCH (10:25)
[2018-09-30] MEDS: LACTOBACILLUS ACIDOPHILUS 1 TABLET PO SCH (10:29)
[2018-09-30] MEDS: TENOFOVIR DISOPROXIL FUMARATE 300 MG TABLET PO SCH (12:19)
[2018-09-30] MEDS: DOXYCYCLINE INJECTION 100 MG in DEXTROSE 5%-WATER - 100 ML IVPB SCH ×2 (12:20→22:00)
--- NOTE | 2018-09-30 13:40 | PN ---
Teaching Attending Note Name of Resident: Arley Alcaraz ATTENDING PHYSICIAN STATEMENT I saw and evaluated the patient. I reviewed the resident's note and discussed the case with the resident. I agree with the resident's findings and plan as documented. SUBJECTIVE: OBJECTIVE: Vital Signs Period Temp Pulse Resp BP Sys/Inman Pulse Ox Last 24 Hr 98.3 F 80-100 17-20 94-102/62-68 98-100 Laboratory Results - last 24 hr 09/29/18 09/29/18 09/29/18 13:30 14:00 14:18 WBC 2.3 L RBC 4.14 Hgb 11.4 Hct 34.8 MCV 84.1 MCH 27.6 MCHC 32.8 RDW 15.4 Plt Count 149 D MPV 8.5 Absolute Neuts (auto) 1.4 L Neutrophils % 63.6 Neutrophils % (Manual) Band Neutrophils % Lymphocytes % 16.9 Lymphocytes % (Manual) Monocytes % 18.6 H Monocytes % (Manual) Eosinophils % 0.2 D Eosinophils % (Manual) Basophils % 0.7 Basophils % (Manual) Nucleated RBC % 0 Platelet Estimate PT with INR INR PTT (Actin FS) VBG pH 7.34 POC VBG pCO2 52.1 H POC VBG pO2 24.5 L Mixed VBG HCO3 27.5 H Sodium Potassium Chloride Carbon Dioxide Anion Gap BUN Creatinine Creat Clearance w eGFR Random Glucose Lactic Acid Calcium Phosphorus Magnesium Total Bilirubin AST ALT Alkaline Phosphatase LD Total C-Reactive Protein Total Protein Albumin Influenza A (Rapid) Negative Influenza B (Rapid) Negative 09/29/18 09/29/18 09/29/18 14:20 14:20 16:50 WBC RBC Hgb Hct MCV MCH MCHC RDW Plt Count MPV Absolute Neuts (auto) Neutrophils % Neutrophils % (Manual) Band Neutrophils % Lymphocytes % Lymphocytes % (Manual) Monocytes % Monocytes % (Manual) Eosinophils % Eosinophils % (Manual) Basophils % Basophils % (Manual) Nucleated RBC % Platelet Estimate PT with INR INR PTT (Actin FS) VBG pH POC VBG pCO2 POC VBG pO2 Mixed VBG HCO3 Sodium Cancelled Potassium Cancelled Chloride Cancelled Carbon Dioxide Cancelled Anion Gap Cancelled BUN Cancelled Creatinine Cancelled Creat Clearance w eGFR Cancelled Random Glucose Cancelled Lactic Acid 2.2 H* Calcium Cancelled Phosphorus Magnesium Total Bilirubin Cancelled AST Cancelled ALT Cancelled Alkaline Phosphatase Cancelled LD Total Cancelled 235 C-Reactive Protein Total Protein Cancelled Albumin Cancelled Influenza A (Rapid) Influenza B (Rapid) 09/29/18 09/29/18 09/29/18 16:50 19:14 20:00 WBC 2.2 L RBC 3.10 L Hgb 8.5 L Hct 26.0 L D MCV 83.8 MCH 27.5 MCHC 32.8 RDW 15.2 Plt Count 135 MPV 8.9 Absolute Neuts (auto) 1.2 L Neutrophils % 57.6 Neutrophils % (Manual) 54.0 Band Neutrophils % 9.0 Lymphocytes % 15.9 Lymphocytes % (Manual) 24.0 Monocytes % 25.3 H Monocytes % (Manual) 11 H Eosinophils % 0.1 Eosinophils % (Manual) 0.0 Basophils % 1.1 Basophils % (Manual) 0.0 Nucleated RBC % 0 Platelet Estimate Adequate PT with INR INR PTT (Actin FS) VBG pH POC VBG pCO2 POC VBG pO2 Mixed VBG HCO3 Sodium 141 Potassium 3.6 Chloride 106 Carbon Dioxide 27 Anion Gap 7 L BUN 11 Creatinine 1.1 Creat Clearance w eGFR 50.33 Random Glucose 106 Lactic Acid 0.8 Calcium 7.5 L Phosphorus Magnesium Total Bilirubin 0.4 AST 95 H ALT 64 H Alkaline Phosphatase 89 LD Total C-Reactive Protein 0.8 H Total Protein 7.6 Albumin 3.1 L Influenza A (Rapid) Influenza B (Rapid) 09/29/18 09/30/18 09/30/18 20:00 05:20 05:20 WBC 1.4 L* RBC 3.27 L Hgb 9.0 L Hct 27.4 L MCV 84.0 MCH 27.5 MCHC 32.7 RDW 15.2 Plt Count 134 MPV 9.2 Absolute Neuts (auto) 0.6 L Neutrophils % 40.6 L D Neutrophils % (Manual) Band Neutrophils % Lymphocytes % 26.0 D Lymphocytes % (Manual) Monocytes % 32.9 H Monocytes % (Manual) Eosinophils % 0.1 Eosinophils % (Manual) Basophils % 0.4 Basophils % (Manual) Nucleated RBC % 1 H Platelet Estimate PT with INR 11.60 INR 0.98 PTT (Actin FS) 27.5 VBG pH POC VBG pCO2 POC VBG pO2 Mixed VBG HCO3 Sodium 143 Potassium 4.0 Chloride 110 H Carbon Dioxide 27 Anion Gap 6 L BUN 8 Creatinine 1.0 Creat Clearance w eGFR 56.18 Random Glucose 79 Lactic Acid Calcium 7.2 L Phosphorus 2.9 Magnesium 2.2 Total Bilirubin 0.3 AST 74 H ALT 57 Alkaline Phosphatase 84 LD Total C-Reactive Protein Total Protein 7.0 Albumin 2.9 L Influenza A (Rapid) Influenza B (Rapid) Current Medications Generic Name Dose Route Start Last Admin Trade Name Freq PRN Reason Stop Dose Admin Abacavir Sulfate 600 mg 09/30/18 10:00 09/30/18 10:23 Ziagen - PO 600 mg DAILY SHERI Administration Albuterol Sulfate 2 puff 09/29/18 19:03 Ventolin Hfa Inhaler - IH Q4H PRN WHEEZING Darunavir 800 mg 09/30/18 10:00 09/30/18 10:25 Prezista - PO 800 mg DAILY SHERI Administration Heparin Sodium (Porcine) 5,000 unit 09/29/18 22:00 09/30/18 07:50 Heparin - SQ Not Given TID SHERI Sodium Chloride 1,000 mls @ 100 mls/hr 09/29/18 18:30 09/29/18 18:31 Normal Saline - IV 100 mls/hr ASDIR SHERI Administration Doxycycline Hyclate 100 mg/ 100 mls @ 100 mls/hr 09/29/18 19:00 09/30/18 12: 20 Dextrose IVPB 100 mls/hr BID SHERI Administration Lactobacillus Acidophilus 1 tab 09/30/18 10:00 09/30/18 10:29 Bacid - PO 1 tab DAILY SHERI Administration Lamivudine 300 mg 09/30/18 10:00 09/30/18 10:23 Epivir - PO 300 mg DAILY SHERI Administration Ritonavir 100 mg 09/30/18 10:00 09/30/18 10:23 Norvir - PO 100 mg DAILY SHERI Administration Tenofovir Disoproxil Fumarate 300 mg 09/30/18 08:00 09/30/18 12:19 Viread - PO 300 mg DAILY@0800 SHERI Administration Valacyclovir HCl 500 mg 09/29/18 22:00 09/30/18 10:24 Valtrex - PO 500 mg BID SHERI Administration ASSESSMENT AND PLAN:
--- NOTE | 2018-09-30 15:35 | PN ---
Physical Exam: SUBJECTIVE: Patient seen and examined at bedside this morning. She endorses generalized weakness, however denies diarrhea overnight. She is tolerating diet without abdominal pain, nausea, vomiting. She denies subjective fevers, or chills. OBJECTIVE: Vital Signs Period Temp Pulse Resp BP Sys/Inman Pulse Ox Last 24 Hr 98.3 F-98.7 F 80-85 18-20 94-116/62-66 98-100 GENERAL: The patient is awake, alert, and fully oriented, in no acute distress. HEAD: Normocephalic, atraumatic. EYES: PERRL, extraocular movements intact, sclera anicteric. ENT: Oropharynx clear without exudates, dry mucous membranes. NECK: Supple without lymphadenopathy, or JVD LUNGS: Good inspiratory effort, clear to auscultation bilaterally. No wheezing, no crackles appreciated. Patient is not using accessory muscles of respiration. HEART: Regular rate and rhythm. S1, S2 auscultated without murmur, rub or gallop. ABDOMEN: Soft, nontender to light and deep palpation X4 quadrants. Normoactive bowel sounds X4 quadrants. No guarding no rebound tenderness. No hepatomegaly palpated. EXTREMITIES: 2+ radial and dorsalis pedis pulses B/L. Warm, well-perfused, no edema bilateral lower extremities. NEUROLOGICAL: Cranial nerves II through XII grossly intact. Normal speech. PSYCH: Normal mood, normal affect upon my encounter today. SKIN: Warm, dry. Laboratory Results - last 24 hr 09/29/18 09/29/18 09/29/18 14:00 14:20 14:20 WBC 2.3 L RBC 4.14 Hgb 11.4 Hct 34.8 MCV 84.1 MCH 27.6 MCHC 32.8 RDW 15.4 Plt Count 149 D MPV 8.5 Absolute Neuts (auto) 1.4 L Total Counted Neutrophils % 63.6 Neutrophils % (Manual) Band Neutrophils % Lymphocytes % 16.9 Lymphocytes % (Manual) Monocytes % 18.6 H Monocytes % (Manual) Eosinophils % 0.2 D Eosinophils % (Manual) Basophils % 0.7 Basophils % (Manual) Nucleated RBC % 0 Hypochromia Platelet Estimate ESR PT with INR INR PTT (Actin FS) Sodium Cancelled Potassium Cancelled Chloride Cancelled Carbon Dioxide Cancelled Anion Gap Cancelled BUN Cancelled Creatinine Cancelled Creat Clearance w eGFR Cancelled Random Glucose Cancelled Lactic Acid 2.2 H* Calcium Cancelled Phosphorus Magnesium Total Bilirubin Cancelled AST Cancelled ALT Cancelled Alkaline Phosphatase Cancelled LD Total Cancelled C-Reactive Protein Total Protein Cancelled Albumin Cancelled 09/29/18 09/29/18 09/29/18 16:50 16:50 19:14 WBC RBC Hgb Hct MCV MCH MCHC RDW Plt Count MPV Absolute Neuts (auto) Total Counted Neutrophils % Neutrophils % (Manual) Band Neutrophils % Lymphocytes % Lymphocytes % (Manual) Monocytes % Monocytes % (Manual) Eosinophils % Eosinophils % (Manual) Basophils % Basophils % (Manual) Nucleated RBC % Hypochromia Platelet Estimate ESR PT with INR INR PTT (Actin FS) Sodium 141 Potassium 3.6 Chloride 106 Carbon Dioxide 27 Anion Gap 7 L BUN 11 Creatinine 1.1 Creat Clearance w eGFR 50.33 Random Glucose 106 Lactic Acid 0.8 Calcium 7.5 L Phosphorus Magnesium Total Bilirubin 0.4 AST 95 H ALT 64 H Alkaline Phosphatase 89 LD Total 235 C-Reactive Protein 0.8 H Total Protein 7.6 Albumin 3.1 L 09/29/18 09/29/18 09/30/18 20:00 20:00 05:20 WBC 2.2 L 1.4 L* RBC 3.10 L 3.27 L Hgb 8.5 L 9.0 L Hct 26.0 L D 27.4 L MCV 83.8 84.0 MCH 27.5 27.5 MCHC 32.8 32.7 RDW 15.2 15.2 Plt Count 135 134 MPV 8.9 9.2 Absolute Neuts (auto) 1.2 L 0.6 L Total Counted 100 Neutrophils % 57.6 40.6 L D Neutrophils % (Manual) 54.0 47.0 Band Neutrophils % 9.0 0.0 Lymphocytes % 15.9 26.0 D Lymphocytes % (Manual) 24.0 32.0 Monocytes % 25.3 H 32.9 H Monocytes % (Manual) 11 H 21 H* Eosinophils % 0.1 0.1 Eosinophils % (Manual) 0.0 0.0 Basophils % 1.1 0.4 Basophils % (Manual) 0.0 0.0 Nucleated RBC % 0 1 H Hypochromia 1+ Platelet Estimate Adequate ESR PT with INR 11.60 INR 0.98 PTT (Actin FS) 27.5 Sodium Potassium Chloride Carbon Dioxide Anion Gap BUN Creatinine Creat Clearance w eGFR Random Glucose Lactic Acid Calcium Phosphorus Magnesium Total Bilirubin AST ALT Alkaline Phosphatase LD Total C-Reactive Protein Total Protein Albumin 09/30/18 09/30/18 05:20 12:55 WBC RBC Hgb Hct MCV MCH MCHC RDW Plt Count MPV Absolute Neuts (auto) Total Counted Neutrophils % Neutrophils % (Manual) Band Neutrophils % Lymphocytes % Lymphocytes % (Manual) Monocytes % Monocytes % (Manual) Eosinophils % Eosinophils % (Manual) Basophils % Basophils % (Manual) Nucleated RBC % Hypochromia Platelet Estimate ESR 50 H PT with INR INR PTT (Actin FS) Sodium 143 Potassium 4.0 Chloride 110 H Carbon Dioxide 27 Anion Gap 6 L BUN 8 Creatinine 1.0 Creat Clearance w eGFR 56.18 Random Glucose 79 Lactic Acid Calcium 7.2 L Phosphorus 2.9 Magnesium 2.2 Total Bilirubin 0.3 AST 74 H ALT 57 Alkaline Phosphatase 84 LD Total C-Reactive Protein Total Protein 7.0 Albumin 2.9 L Active Medications Generic Name Dose Route Start Last Admin Trade Name Freq PRN Reason Stop Dose Admin Abacavir Sulfate 600 mg 09/30/18 10:00 09/30/18 10:23 Ziagen - PO 600 mg DAILY SHERI Administration Albuterol Sulfate 2 puff 09/29/18 19:03 Ventolin Hfa Inhaler - IH Q4H PRN WHEEZING Darunavir 800 mg 09/30/18 10:00 09/30/18 10:25 Prezista - PO 800 mg DAILY SHERI Administration Heparin Sodium (Porcine) 5,000 unit 09/29/18 22:00 09/30/18 14:57 Heparin - SQ 5,000 unit TID SHERI Administration Sodium Chloride 1,000 mls @ 100 mls/hr 09/29/18 18:30 09/29/18 18:31 Normal Saline - IV 100 mls/hr ASDIR SHERI Administration Doxycycline Hyclate 100 mg/ 100 mls @ 100 mls/hr 09/29/18 19:00 09/30/18 12: 20 Dextrose IVPB 100 mls/hr BID SHERI Administration Lactobacillus Acidophilus 1 tab 09/30/18 10:00 09/30/18 10:29 Bacid - PO 1 tab DAILY SHERI Administration Lamivudine 300 mg 09/30/18 10:00 09/30/18 10:23 Epivir - PO 300 mg DAILY SHERI Administration Ritonavir 100 mg 09/30/18 10:00 09/30/18 10:23 Norvir - PO 100 mg DAILY SHERI Administration Tenofovir Disoproxil Fumarate 300 mg 09/30/18 08:00 09/30/18 12:19 Viread - PO 300 mg DAILY@0800 SHERI Administration Valacyclovir HCl 500 mg 09/29/18 22:00 09/30/18 10:24 Valtrex - PO 500 mg BID SHERI Administration ASSESSMENT/PLAN: Patient is a 63 year old female with history of HIV (poorly compliant with HAART ) presents with complaint of generalized weakness and diarrhea for two days prior to admission. Gastroenteritis -Diarrhea, and malaise likely secondary to viral vs. bacterial gastroenteritis. However given her history of HIV with poor HAART compliance, must consider opportunistic infections. -CT abdomen, pelvis shows no acute pathology. -Lactic acid 2.2 -> 0.8 with IV hydration -Influenza swab negative -Doxycycline 100mg IV BID -Bacid 1 tab daily -Follow stool culture -Stool for ova and parasites -Cryptococcus, Giardia antigen -Stool lactoferrin -ID consult (Dr. Ivey) HIV -Poorly compliant with HAART therapy. Will reinstate HAART medications. -Abacavir 600mg PO daily -Lamivudine 300mg PO daily -Tenofovir 300mg PO daily -Ritonavir 100mg PO daily -Darunavir 800md PO daily -Valaciclovir 500mg PO BID -ID consult (Dr. Ivey) Transaminitis -Improving. AST 74, ALT 57, Alkaline phosphatase 84 -CT abdomen, pelvis shows no acute pathology. -Will follow CMP Neutropenia -WBC 1.4 today. Baseline approx 2-3 -May be secondary to HAART therapy. Patient received Neupogen during prior admission. -Hematology consult (Dr. Gill) History of polysubstance abuse -Follow urine toxicology FEN -IV normal saline at 100mL/ hour -Follow CMP -Regular diet Prophylaxis -Heparin 5000u subq TID Disposition -Continue care in medical- surgical floor. Visit type - Emergency Visit Emergency Visit: Yes ED Registration Date: 09/29/18 Care time: The patient presented to the Emergency Department on the above date and was hospitalized for further evaluation of their emergent condition. - New Patient This patient is new to me today: Yes Date on this admission: 09/30/18 - Critical Care Critical Care patient: No - Discharge Referral Referred to [facility] Med [facility] No
--- NOTE | 2018-09-30 16:18 | CONSULT ---
Consult Consult Specialty:: Hematology and Oncology Referred by:: Dr. Payne Reason for Consultation:: Neutropenia - History of Present Illness History of Present Illness: 63 yo F h/o HIV on HAART but poor compliance, asthma, COPD, Anemia, Anxiety admitted to the hospital for diarrhea and weakness. Patient endorses 5 episodes of diarrhea and feeling weak after restarting HAART medications. CT abd was unremarkable during admission. Now patient is having neutropenia which resembles last hospital course. She's been chronically and intermittently neutropenic. Also endorses subjective fever. Denies chest pain, shortness of breath, headache, abd pain, n/v. 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 No: Alzheimer's, CVA, Dementia, Migraine, Multiple Sclerosis, Parkinson's, Seizure, Syncope, TIA, Vertigo, Other Pulmonary: Yes: COPD, Pneumonia Gastrointestinal: Yes: Other ([place]eredith Esophagitis from EGD 06/19/14). No: Ascites, Cancer, Constipation, Crohn's Disease, Diverticulitis, Diverticulosis, Esophageal Varices, Gastritis, GERD, GI Bleed, Hemorrhoids, Hiatal Hernia, Inflamatory Bowel Disease, Irritable Bowel Disease, Pancreatitis, Peptic Ulcer Disease, Ulcerative Colitis ...LMP: 01/04/15 Infectious Disease: Yes: AIDS, HIV, STD's Psych: Yes: Other (anorexia) Additional Medical History: Neuropathy of the feet. anorexia. breast cyst removed. ovarian cyst removed. c/s for twins - Past Surgical History Past Surgical History: Yes: Breast Biopsy, , Tonsillectomy - Alcohol/Substance Use Hx Alcohol Use: No History of Substance Use: reports: None - Smoking History Smoking history: Current some day smoker Have you smoked in the past 12 months: Yes Aproximately how many cigarettes per day: 2 If you are a former smoker, when did you quit?: 2 months ago - Social History Usual Living Arrangement: With Child ADL: Independent Occupation: on disability History of Recent Travel: Yes ([place] 07[place]13 to 07/18) Home Medications - Allergies Allergies/Adverse Reactions: Allergies Allergy/AdvReac Type Severity Reaction Status Date / Time Penicillins Allergy Severe Swelling Verified 09/29/18 15:28 [place] AdvReac Uncoded 09/29/18 13:24 - Home Medications Home Medications: Ambulatory Orders Tenofovir Disoproxil Fumarate 300 mg PO DAILY 06/15/18 Abacavir Sulfate/Lamivudine [Abacavir-Lamivudine 600-300 mg] 1 each PO DAILY # 30 tablet 08/17/18 Albuterol Sulfate Inhaler - [Ventolin HFA Inhaler -] 1 - 2 inh PO Q4H #1 inhaler 08/17/18 Darunavir Ethanolate [Prezista -] 800 mg PO DAILY #30 tablet 08/17/18 Lactobacillus Acidophilus [Probiotic] 0 mg PO DAILY #30 capsule 08/17/18 Ritonavir 100 mg PO DAILY #30 tablet 08/17/18 Tenofovir Disoproxil Fumarate [Viread] 300 mg PO DAILY #30 tablet 08/17/18 Valacyclovir HCl [Valtrex -] 500 mg PO BID #60 tablet 08/17/18 Atovaquone [Mepron -] 750 mg PO DAILY@0800 09/29/18 Family Disease History - Family Disease History Family Disease History: CA: Father ( prostate CA), Other: Mother (alive dementia) Review of Systems - Review of Systems Constitutional: reports: Fever, Lethargy, Loss of Appetite, Weakness Cardiovascular: denies: Chest Pain, Shortness of Breath Gastrointestinal: reports: Diarrhea. denies: Abdominal Pain, Constipation Neurological: reports: No Symptoms Physical Exam Vital Signs: Vital Signs Temperature 98.7 F 09/30/18 14:25 Pulse Rate 80 09/30/18 14:25 Respiratory Rate 18 09/30/18 14:25 Blood Pressure 116/63 09/30/18 14:25 O2 Sat by Pulse Oximetry (%) 98 09/30/18 04:30 Constitutional: Yes: No Distress, Calm, Thin Eyes: Yes: Conjunctiva Clear, EOM Intact Cardiovascular: Yes: Regular Rate and Rhythm, S1, S2. No: Murmur Respiratory: Yes: CTA Bilaterally Gastrointestinal: Yes: Normal Bowel Sounds, Soft. No: Tenderness Edema: No Neurological: Yes: Alert, Oriented Labs: CBC, BMP 09/30/18 05:20 09/30/18 05:20 Imaging - Results Cat Scan: Report Reviewed Assessment/Plan 63 yo F h/o HIV on HAART but poor compliance, asthma, COPD, Anemia, Anxiety admitted to the hospital for diarrhea and weakness now being evaluated for recurrent leukopenia leukopenia and anemia - anc = 560 - sent flow, B12, folate during last admission and neupogen x1 - will send flow, fish and cytogenetics again, and then neupogen x 1 - cont. monitor cbc Hugo Corrales PGY3 Visit type - Emergency Visit Emergency Visit: No - New Patient This patient is new to me today: Yes Date on this admission: 09/30/18 - Critical Care Critical Care patient: No
[2018-09-30 16:24] LABS: URINE APPEARANCE CLEAR; URINE BILIRUBIN NEGATIVE (<2.0 mg/dL); URINE COLOR LTYELLOW; URINE GLUCOSE (UA) NEGATIVE (NEGATIVE); URINE KETONE NEGATIVE (NEGATIVE); URINE LEUK ESTERASE 2+ (NEGATIVE); URINE NITRITE NEGATIVE (NEGATIVE); URINE PROTEIN NEGATIVE (NEGATIVE); URINE UROBILINOGEN NEGATIVE mg/dL (0.2-1.0)
[2018-09-30 16:33] LABS: EPI CELLS FEW /HPF (FEW)
[2018-09-30 16:44] LABS: METHADONE, UR NEGATIVE ng/ml (CUTOFF=300); OPIATES, URI NEGATIVE ng/ml (CUTOFF=300); PHENCYCLIDINE,URINE NEGATIVE ng/ml (CUTOFF=25); URINE AMPHETAMINES NEGATIVE ng/ml (CUTOFF=500); URINE BARBITURATES NEGATIVE ng/ml (CUTOFF=200); URINE BENZODIAZEPINES NEGATIVE ng/ml (CUTOFF=200)
[2018-09-30 16:47] LABS: COCAINE, UR POSITIVE ng/ml (CUTOFF=300)
[2018-09-30] MEDS: SODIUM CHLORIDE 1,000 ML IV SCH ×2 (18:42→19:04)
--- NOTE | 2018-09-30 20:11 | PN ---
Teaching Attending Note Name of Resident: Hugo Corrales ATTENDING PHYSICIAN STATEMENT I saw and evaluated the patient. I reviewed the resident's note and discussed the case with the resident. I agree with the resident's findings and plan as documented. ASSESSMENT AND PLAN: 63 yo F h/o HIV on HAART but poor compliance, asthma, COPD, Anemia, Anxiety admitted to the hospital for diarrhea and weakness now being evaluated for recurrent leukopenia . CD4 65 leukopenia : advanced HIV check AFB/fungal cx check LDH Anemia: chronic disease check retic count
[2018-10-01] MEDS: HEPARIN NA (PORCINE) 5,000 UNITS/ML 1ML VIAL SQ SCH ×3 (06:04→22:09)
[2018-10-01] MEDS: SODIUM CHLORIDE 1,000 ML IV SCH ×2 (06:04→17:18)
[2018-10-01 07:58] LABS: HEMATOCRIT 26.1 % (32.4-45.2); HEMOGLOBIN 8.8 GM/dL (10.7-15.3); MCH 28.8 pg (25.7-33.7); MCHC 33.8 g/dl (32.0-36.0); MEAN CELL VOLUME 85.2 fl (80-96); MEAN PLT VOLUME 8.8 fl (7.5-11.1); PLATELET COUNT 110 K/MM3 (134-434); RBC 3.07 M/mm3 (3.60-5.2); RDW 15.2 % (11.6-15.6)
[2018-10-01 08:20] LABS: WHITE BLOOD COUNT 1.3 K/mm3 (4.0-10.0)
[2018-10-01 08:53] LABS: ALBUMIN 2.7 g/dl (3.4-5.0); ALK PHOS 88 U/L (45-117); ANION GAP 6 MMOL/L (8-16); BILIRUBIN,TOTAL 0.3 mg/dL (0.2-1); BLOOD UREA NITROGEN 6 mg/dL (7-18); CHLORIDE 114 mmol/L (98-107); CO2 25 mmol/L (21-32); CREATININE 0.9 mg/dL (0.55-1.3); GLUCOSE,RANDOM 79 mg/dL (74-106); POTASSIUM 3.9 mmol/L (3.5-5.1); SGOT/AST 103 U/L (15-37); SGPT/ALT 71 U/L (13-61); SODIUM 144 mmol/L (136-145); TOT PROT 6.6 g/dl (6.4-8.2)
[2018-10-01] MEDS ORDERED: PT OWN MED DRAWER 7, Y5N ONE ×2 (09:33→22:07)
[2018-10-01] MEDS: ABACAVIR SULFATE 300 MG TABLET PO SCH (09:55)
[2018-10-01] MEDS: LACTOBACILLUS ACIDOPHILUS 1 TABLET PO SCH (09:55)
[2018-10-01] MEDS: lamiVUDine 150 MG TABLET PO SCH (09:56)
[2018-10-01] MEDS: RITONAVIR 100 MG TABLET PO SCH (09:56)
[2018-10-01] MEDS: valACYclovir HCL 500 MG TABLET (FP) PO SCH ×2 (09:56→22:10)
[2018-10-01] MEDS: DARUNAVIR ETHANOLATE 800 MG TAB PO SCH (09:57)
[2018-10-01] MEDS: TENOFOVIR DISOPROXIL FUMARATE 300 MG TABLET PO SCH (09:57)
[2018-10-01] MEDS: DOXYCYCLINE INJECTION 100 MG in DEXTROSE 5%-WATER - 100 ML IVPB SCH (09:57)
--- NOTE | 2018-10-01 11:10 | PN ---
Physical Exam: SUBJECTIVE: Patient seen and examined at bedside this morning. She endorses one loosely formed, soft bowel movement overnight without melena, or hematochezia. She is tolerating diet without abdominal pain, nausea, vomiting. She denies subjective fevers, or chills. OBJECTIVE: Vital Signs Period Temp Pulse Resp BP Sys/Inman Pulse Ox Last 24 Hr 97.9 F-98.7 F 66-80 18-20 106-126/62-83 95 GENERAL: The patient is awake, alert, and fully oriented, in no acute distress. HEAD: Normocephalic, atraumatic. EYES: PERRL, extraocular movements intact, sclera anicteric. ENT: Oropharynx clear without exudates, dry mucous membranes. NECK: Supple without lymphadenopathy, or JVD LUNGS: Good inspiratory effort, clear to auscultation bilaterally. No wheezing, no crackles appreciated. Patient is not using accessory muscles of respiration. HEART: Regular rate and rhythm. S1, S2 auscultated without murmur, rub or gallop. ABDOMEN: Soft, nontender to light and deep palpation X4 quadrants. Normoactive bowel sounds X4 quadrants. No guarding no rebound tenderness. No hepatomegaly palpated. EXTREMITIES: 2+ radial and dorsalis pedis pulses B/L. Warm, well-perfused, no edema bilateral lower extremities. NEUROLOGICAL: Cranial nerves II through XII grossly intact. Normal speech. PSYCH: Normal mood, normal affect upon my encounter today. SKIN: Warm, dry. Laboratory Results - last 24 hr 09/29/18 09/30/18 09/30/18 20:00 05:20 12:30 WBC 2.1 L RBC Hgb Hct MCV MCH MCHC RDW Plt Count MPV Absolute Lymphs (auto) 0.5 L Total Counted 100 Neutrophils % (Manual) 47.0 Band Neutrophils % 0.0 Lymphocytes % (Manual) 32.0 Monocytes % (Manual) 21 H* Eosinophils % (Manual) 0.0 Basophils % (Manual) 0.0 Lymphocytes 21 Nucleated RBCs TNP Hypochromia 1+ ESR Sodium Potassium Chloride Carbon Dioxide Anion Gap BUN Creatinine Creat Clearance w eGFR Random Glucose Calcium Total Bilirubin AST ALT Alkaline Phosphatase Total Protein Albumin Urine Color Ltyellow Urine Appearance Clear Urine pH 6.0 Ur Specific [place] 1.013 Urine Protein Negative Urine Glucose (UA) Negative Urine Ketones Negative Urine Blood Negative Urine Nitrite Negative Urine Bilirubin Negative Urine Urobilinogen Negative Ur Leukocyte Esterase 2+ H Urine WBC (Auto) 18 Urine RBC (Auto) 1 Ur Epithelial Cells Few Opiates Screen Methadone Screen Barbiturate Screen Phencyclidine Screen Ur Amphetamines Screen MDMA (Ecstasy) Screen Benzodiazepines Screen Cocaine Screen U Marijuana (THC) Screen Absolute CD3 Count 312 L % CD3+ Lymphocytes 62.4 Absolute CD4 [place] 65 L % CD4+ Lymphocyte 13.0 L CD4/CD8 Ratio 0.31 L % CD8+ Lymphocyte 42.5 H Absolute CD8 Count 213 09/30/18 09/30/18 10/01/18 12:30 12:55 06:45 WBC 1.3 L* RBC 3.07 L Hgb 8.8 L Hct 26.1 L MCV 85.2 MCH 28.8 MCHC 33.8 RDW 15.2 Plt Count 110 L MPV 8.8 Absolute Lymphs (auto) Total Counted Neutrophils % (Manual) Band Neutrophils % Lymphocytes % (Manual) Monocytes % (Manual) Eosinophils % (Manual) Basophils % (Manual) Lymphocytes Nucleated RBCs Hypochromia ESR 50 H Sodium Potassium Chloride Carbon Dioxide Anion Gap BUN Creatinine Creat Clearance w eGFR Random Glucose Calcium Total Bilirubin AST ALT Alkaline Phosphatase Total Protein Albumin Urine Color Urine Appearance Urine pH Ur Specific [place] Urine Protein Urine Glucose (UA) Urine Ketones Urine Blood Urine Nitrite Urine Bilirubin Urine Urobilinogen Ur Leukocyte Esterase Urine WBC (Auto) Urine RBC (Auto) Ur Epithelial Cells Opiates Screen Negative Methadone Screen Negative Barbiturate Screen Negative Phencyclidine Screen Negative Ur Amphetamines Screen Negative MDMA (Ecstasy) Screen Negative Benzodiazepines Screen Negative Cocaine Screen Positive A* U Marijuana (THC) Screen Negative Absolute CD3 Count % CD3+ Lymphocytes Absolute CD4 [place] % CD4+ Lymphocyte CD4/CD8 Ratio % CD8+ Lymphocyte Absolute CD8 Count 10/01/18 06:45 WBC RBC Hgb Hct MCV MCH MCHC RDW Plt Count MPV Absolute Lymphs (auto) Total Counted Neutrophils % (Manual) Band Neutrophils % Lymphocytes % (Manual) Monocytes % (Manual) Eosinophils % (Manual) Basophils % (Manual) Lymphocytes Nucleated RBCs Hypochromia ESR Sodium 144 Potassium 3.9 Chloride 114 H Carbon Dioxide 25 Anion Gap 6 L BUN 6 L Creatinine 0.9 Creat Clearance w eGFR > 60 Random Glucose 79 Calcium 7.0 L Total Bilirubin 0.3 AST 103 H ALT 71 H Alkaline Phosphatase 88 Total Protein 6.6 Albumin 2.7 L Urine Color Urine Appearance Urine pH Ur Specific [place] Urine Protein Urine Glucose (UA) Urine Ketones Urine Blood Urine Nitrite Urine Bilirubin Urine Urobilinogen Ur Leukocyte Esterase Urine WBC (Auto) Urine RBC (Auto) Ur Epithelial Cells Opiates Screen Methadone Screen Barbiturate Screen Phencyclidine Screen Ur Amphetamines Screen MDMA (Ecstasy) Screen Benzodiazepines Screen Cocaine Screen U Marijuana (THC) Screen Absolute CD3 Count % CD3+ Lymphocytes Absolute CD4 [place] % CD4+ Lymphocyte CD4/CD8 Ratio % CD8+ Lymphocyte Absolute CD8 Count Active Medications Generic Name Dose Route Start Last Admin Trade Name Freq PRN Reason Stop Dose Admin Abacavir Sulfate 600 mg 09/30/18 10:00 10/01/18 09:55 Ziagen - PO 600 mg DAILY SHERI Administration Albuterol Sulfate 2 puff 09/29/18 19:03 Ventolin Hfa Inhaler - IH Q4H PRN WHEEZING Darunavir 800 mg 09/30/18 10:00 10/01/18 09:57 Prezista - PO 800 mg DAILY SHERI Administration Heparin Sodium (Porcine) 5,000 unit 09/29/18 22:00 10/01/18 06:04 Heparin - SQ Not Given TID SHERI Sodium Chloride 1,000 mls @ 100 mls/hr 09/29/18 18:30 10/01/18 06:04 Normal Saline - IV 100 mls/hr ASDIR SHERI Administration Doxycycline Hyclate 100 mg/ 100 mls @ 100 mls/hr 09/29/18 19:00 10/01/18 09: 57 Dextrose IVPB 100 mls/hr BID SHERI Administration Lactobacillus Acidophilus 1 tab 09/30/18 10:00 10/01/18 09:55 Bacid - PO 1 tab DAILY SHERI Administration Lamivudine 300 mg 09/30/18 10:00 10/01/18 09:56 Epivir - PO 300 mg DAILY SHERI Administration Ritonavir 100 mg 09/30/18 10:00 10/01/18 09:56 Norvir - PO 100 mg DAILY SHERI Administration Tenofovir Disoproxil Fumarate 300 mg 09/30/18 08:00 10/01/18 09:57 Viread - PO 300 mg DAILY@0800 SHERI Administration Valacyclovir HCl 500 mg 09/29/18 22:00 10/01/18 09:56 Valtrex - PO 500 mg BID SHERI Administration ASSESSMENT/PLAN: Patient is a 63 year old female with history of HIV (poorly compliant with HAART ) presents with complaint of generalized weakness and diarrhea for two days prior to admission. Gastroenteritis -Diarrhea, and malaise likely secondary to viral vs. bacterial gastroenteritis. However given her history of HIV with poor HAART compliance, must consider opportunistic infections. -CT abdomen, pelvis shows no acute pathology. -Lactic acid 2.2 -> 0.8 with IV hydration -Influenza swab negative -Doxycycline discontinued with ID recommendation -Begin Atovaquone 1500mg PO daily -Bacid 1 tab daily -Stool presumptive negative for Cryptosporidium, and Giardia antigen -Stool negative for C. difficile -Follow stool culture -Stool for ova and parasites -Stool for Norovirus -Follow Rotvirus Ag, Isospora -Follow stool Lactoferrin -ID consult (Dr. Pena) appreciated. HIV -Poorly compliant with home HAART therapy. Will reinstate HAART medications. -Abacavir 600mg PO daily -Lamivudine 300mg PO daily -Tenofovir 300mg PO daily -Ritonavir 100mg PO daily -Darunavir 800md PO daily -Valaciclovir 500mg PO BID -ID consult (Dr. Pena) appreciated. Transaminitis -AST 103, ALT 71, Alkaline phosphatase 88. No Abdominal tenderness upon exam. -CT abdomen, pelvis shows no acute pathology. -Will follow CMP Neutropenia -WBC 1.3 today. Baseline approx 2-3 -May be secondary to HAART therapy. -Hematology consult (Dr. Gill) appreciated. -Patient received Granix 300mcg IV today. -Follow CMP History of polysubstance abuse -Urine toxicology positive for Cocaine -Counselled patient regarding drug abstinence -Monitor for signs of withdrawal FEN -IV normal saline at 100mL/ hour -Follow CMP -Regular diet Prophylaxis -Heparin 5000u subq TID Disposition -Continue care in medical- surgical floor. Visit type - Emergency Visit Emergency Visit: Yes ED Registration Date: 09/29/18 Care time: The patient presented to the Emergency Department on the above date and was hospitalized for further evaluation of their emergent condition. - New Patient This patient is new to me today: No - Critical Care Critical Care patient: No - Discharge Referral Referred to [facility] Med P.C.: No
[2018-10-01] MEDS ORDERED: TBO-FILGRASTIM 480 MCG/0.8 ML DISP.SYRIN SQ ONE (14:17)
[2018-10-01] MEDS ORDERED: TBO-FILGRASTIM 300 MCG/0.5 ML DISP.SYRINGE SQ ONE (14:44)
--- NOTE | 2018-10-01 14:49 | PN ---
Progress Note, Physician History of Present Illness: patient seen and examined at bedside. still having diarrhea. no other acute event. - Current Medication List Current Medications: Active Medications Abacavir Sulfate (Ziagen -) 600 mg PO DAILY [facility] Last Admin: 10/01/18 09:55 Dose: 600 mg Albuterol Sulfate (Ventolin Hfa Inhaler -) 2 puff IH Q4H PRN PRN Reason: WHEEZING Darunavir (Prezista -) 800 mg PO DAILY [facility] Last Admin: 10/01/18 09:57 Dose: 800 mg Heparin Sodium (Porcine) (Heparin -) 5,000 unit SQ TID [facility] Last Admin: 10/01/18 13:05 Dose: Not Given Sodium Chloride (Normal Saline -) 1,000 mls @ 100 mls/hr IV ASDIR [facility] Last Admin: 10/01/18 06:04 Dose: 100 mls/hr Doxycycline Hyclate 100 mg/ (Dextrose) 100 mls @ 100 mls/hr IVPB BID [facility] Last Admin: 10/01/18 09:57 Dose: 100 mls/hr Lactobacillus Acidophilus (Bacid -) 1 tab PO DAILY [facility] Last Admin: 10/01/18 09:55 Dose: 1 tab Lamivudine (Epivir -) 300 mg PO DAILY [facility] Last Admin: 10/01/18 09:56 Dose: 300 mg Ritonavir (Norvir -) 100 mg PO DAILY [facility] Last Admin: 10/01/18 09:56 Dose: 100 mg Tbo-Filgrastim (Granix -) 300 mcg SQ ONCE ONE Stop: 10/01/18 14:45 Tenofovir Disoproxil Fumarate (Viread -) 300 mg PO DAILY@0800 [facility] Last Admin: 10/01/18 09:57 Dose: 300 mg Valacyclovir HCl (Valtrex -) 500 mg PO BID [facility] Last Admin: 10/01/18 09:56 Dose: 500 mg - Objective Vital Signs: Vital Signs Temperature 98.2 F 10/01/18 09:27 Pulse Rate 66 10/01/18 09:27 Respiratory Rate 20 10/01/18 09:27 Blood Pressure 126/62 10/01/18 09:27 O2 Sat by Pulse Oximetry (%) 98 10/01/18 09:00 Constitutional: Yes: No Distress, Calm, Thin HENT: Yes: Atraumatic, Normocephalic Cardiovascular: Yes: Regular Rate and Rhythm, S1, S2. No: Murmur Respiratory: Yes: CTA Bilaterally Gastrointestinal: Yes: Normal Bowel Sounds, Soft. No: Tenderness Edema: No Neurological: Yes: Alert, Oriented Labs: CBC, BMP 10/01/18 06:45 10/01/18 06:45 INR, PTT INR 0.98 (0.83-1.09) 09/29/18 20:00 Impression/Plan Impression/Plan: 63 yo F h/o HIV on HAART but poor compliance, asthma, COPD, Anemia, Anxiety admitted to the hospital for diarrhea and weakness now being evaluated for recurrent leukopenia leukopenia and anemia - afrebile - gave granix 300mcg once - labs pending - cont. to monitor cbc w/ diff Hugo Corrales PGY3 Visit type - Emergency Visit Emergency Visit: No - New Patient This patient is new to me today: No - Critical Care Critical Care patient: No - Discharge Referral Referred to [facility] Med P.C.: No
[2018-10-01 14:59] VITALS: BMI 18.6
--- NOTE | 2018-10-01 15:09 | PN ---
Progress Note (short form) - Note Progress Note: ID CONSULT DICTATED DIARRHEA R/O ENTERIC PATHOGENS PANCYTOPENIA ? INFILTRATIVE MARROW DISEASE (DMAC, LYMPHOMA) AIDS CD4 66 AWAIT STOOL STUDIES IN ADDITION TO SPECIMENS SENT OBTAIN O&P, ISOSPORA, AFB (MAC),NOROVIRUS, ROTAVIRUS D/C ANTIBIOTICS ART PCP/MAC PROPHYLAXIS
--- NOTE | 2018-10-01 16:08 | PN ---
Teaching Attending Note Name of Resident: Arley Alcaraz ATTENDING PHYSICIAN STATEMENT I saw and evaluated the patient. I reviewed the resident's note and discussed the case with the resident. I agree with the resident's findings and plan as documented. SUBJECTIVE: OBJECTIVE: Vital Signs Period Temp Pulse Resp BP Sys/Inman Pulse Ox Last 24 Hr 97.9 F-98.3 F 66-80 18-20 106-126/59-83 95-98 Laboratory Results - last 24 hr 09/29/18 09/30/18 09/30/18 20:00 12:30 12:30 WBC 2.1 L RBC Hgb Hct MCV MCH MCHC RDW Plt Count MPV Absolute Lymphs (auto) 0.5 L Lymphocytes 21 Nucleated RBCs TNP Sodium Potassium Chloride Carbon Dioxide Anion Gap BUN Creatinine Creat Clearance w eGFR Random Glucose Calcium Total Bilirubin AST ALT Alkaline Phosphatase Total Protein Albumin Urine Color Ltyellow Urine Appearance Clear Urine pH 6.0 Ur Specific [place] 1.013 Urine Protein Negative Urine Glucose (UA) Negative Urine Ketones Negative Urine Blood Negative Urine Nitrite Negative Urine Bilirubin Negative Urine Urobilinogen Negative Ur Leukocyte Esterase 2+ H Urine WBC (Auto) 18 Urine RBC (Auto) 1 Ur Epithelial Cells Few Opiates Screen Negative Methadone Screen Negative Barbiturate Screen Negative Phencyclidine Screen Negative Ur Amphetamines Screen Negative MDMA (Ecstasy) Screen Negative Benzodiazepines Screen Negative Cocaine Screen Positive A* U Marijuana (THC) Screen Negative Absolute CD3 Count 312 L % CD3+ Lymphocytes 62.4 Absolute CD4 [place] 65 L % CD4+ Lymphocyte 13.0 L CD4/CD8 Ratio 0.31 L % CD8+ Lymphocyte 42.5 H Absolute CD8 Count 213 10/01/18 10/01/18 06:45 06:45 WBC 1.3 L* RBC 3.07 L Hgb 8.8 L Hct 26.1 L MCV 85.2 MCH 28.8 MCHC 33.8 RDW 15.2 Plt Count 110 L MPV 8.8 Absolute Lymphs (auto) Lymphocytes Nucleated RBCs Sodium 144 Potassium 3.9 Chloride 114 H Carbon Dioxide 25 Anion Gap 6 L BUN 6 L Creatinine 0.9 Creat Clearance w eGFR > 60 Random Glucose 79 Calcium 7.0 L Total Bilirubin 0.3 AST 103 H ALT 71 H Alkaline Phosphatase 88 Total Protein 6.6 Albumin 2.7 L Urine Color Urine Appearance Urine pH Ur Specific [place] Urine Protein Urine Glucose (UA) Urine Ketones Urine Blood Urine Nitrite Urine Bilirubin Urine Urobilinogen Ur Leukocyte Esterase Urine WBC (Auto) Urine RBC (Auto) Ur Epithelial Cells Opiates Screen Methadone Screen Barbiturate Screen Phencyclidine Screen Ur Amphetamines Screen MDMA (Ecstasy) Screen Benzodiazepines Screen Cocaine Screen U Marijuana (THC) Screen Absolute CD3 Count % CD3+ Lymphocytes Absolute CD4 [place] % CD4+ Lymphocyte CD4/CD8 Ratio % CD8+ Lymphocyte Absolute CD8 Count Current Medications Generic Name Dose Route Start Last Admin Trade Name Freq PRN Reason Stop Dose Admin Abacavir Sulfate 600 mg 09/30/18 10:00 10/01/18 09:55 Ziagen - PO 600 mg DAILY SHERI Administration Albuterol Sulfate 2 puff 09/29/18 19:03 Ventolin Hfa Inhaler - IH Q4H PRN WHEEZING Atovaquone 1,500 mg 10/02/18 08:00 Mepron - PO DAILY@0800 [facility] Darunavir 800 mg 09/30/18 10:00 10/01/18 09:57 Prezista - PO 800 mg DAILY SHERI Administration Heparin Sodium (Porcine) 5,000 unit 09/29/18 22:00 10/01/18 13:05 Heparin - SQ Not Given TID [facility] Sodium Chloride 1,000 mls @ 100 mls/hr 09/29/18 18:30 10/01/18 06:04 Normal Saline - IV 100 mls/hr ASDIR SHERI Administration Lactobacillus Acidophilus 1 tab 09/30/18 10:00 10/01/18 09:55 Bacid - PO 1 tab DAILY SHERI Administration Lamivudine 300 mg 09/30/18 10:00 10/01/18 09:56 Epivir - PO 300 mg DAILY SHERI Administration Ritonavir 100 mg 09/30/18 10:00 10/01/18 09:56 Norvir - PO 100 mg DAILY SHERI Administration Tenofovir Disoproxil Fumarate 300 mg 09/30/18 08:00 10/01/18 09:57 Viread - PO 300 mg DAILY@0800 [facility] Administration Valacyclovir HCl 500 mg 09/29/18 22:00 10/01/18 09:56 Valtrex - PO 500 mg BID SHERI Administration ASSESSMENT AND PLAN:
--- NOTE | 2018-10-01 16:38 | CONS ---
DATE OF CONSULTATION: DATE OF DICTATION: 10/01/2018 HISTORY OF PRESENT ILLNESS: The patient is a 63-year-old female with a history of acquired immunodeficiency syndrome, evaluated for diarrhea, pancytopenia and low-grade fever. The patient attends the [facility]. She has had adherence issues in the past with both medications and clinic followup visits. She reports that over the past two months, she has had progressively worsening generalized weakness, malaise, low-grade fever, intermittent chills and cough. Her symptoms worsened over the two days prior to admission, prompting her visit to the emergency room. In the emergency room, the patient was noted to be febrile, hypotensive and tachycardic. An influenza swab was negative. She complained of non-bloody diarrhea and some abdominal discomfort. A CT scan of the abdomen and pelvis was negative for acute pathology. Her course has been significant for pancytopenia for which she is being evaluated by Hematology. She was empirically treated with antibiotics because of the neutropenia and fever. Her temperatures have remained down and blood cultures are negative. Preliminarily, stool studies, including Clostridium difficile, cryptosporidium and Giardia, are negative. Stool culture is pending. PAST MEDICAL HISTORY: Positive for acquired immunodeficiency syndrome. She has had adherence issues with anti-retroviral therapy. Her most recent viral load from May 2018 was 6580. Her most recent T-cell count from September 2018 was 65. Her past medical history also includes COPD, hypertension and asthma. PAST SURGICAL HISTORY: Status post section. ALLERGIES: PENICILLIN; the patient reports swelling and rash. MEDICATIONS: Epzicom, REZISTA, Norvir, Viread, Valtrex and Mepron. SOCIAL HISTORY: Former smoker. LABORATORY DATA: White count 1.2, absolute neutrophil count approximately 600, hematocrit 26.1, platelet count 110, creatinine 0.9. Liver enzymes: Total bilirubin 0.3, alkaline phosphatase 88, AST 103, ALT 71. A chest x-ray is negative. A urinalysis shows 18 white cells. PHYSICAL EXAMINATION: General: The patient is thin. She is not acutely toxic appearing. Vital Signs: Temperature 98.2, T-max 100.4, blood pressure 126/62, pulse 66 and regular, respirations 20 per minute. HEENT:: Sclerae anicteric. Oropharynx negative. Neck: Supple. Heart: Heart sounds S1, S2. Lungs: Clear. Abdomen: Soft and nontender. Extremities: Negative for edema. IMPRESSION: 1. Diarrhea; rule out enteric pathogens. 2. Pancytopenia, likely on the basis of HIV/AIDS; rule out infiltrative marrow disease (disseminated MAC, lymphoma). 3. Acquired immunodeficiency syndrome with a history of poor adherence. PLAN: 1. Await stool studies. In addition to specimens already sent, will obtain stool for ova and parasites, Isospora, AFB (MAC), norovirus and rotavirus. Would discontinue antibiotics. Continue antiretroviral therapy. 2. Resume PCP and MAC prophylaxis. The patient has received Mepron in the past for her PCP prophylaxis. 3. Hematology evaluation. JONO ROSEN M.D. [id number]
[2018-10-01] MEDS ORDERED: IBUPROFEN 400 MG TABLET (FP) PO PRN (17:08)
--- NOTE | 2018-10-02 00:45 | PN ---
Progress Note (short form) - Note Progress Note: Patient seen and examined Denies any complaints Last Vital Signs Temp Pulse Resp BP Pulse Ox 97.9 F 78 18 124/75 98 10/02/18 09:00 10/02/18 09:00 10/02/18 09:00 10/02/18 09:00 10/01/18 21:00 Cor: RSR, No murmurs, No gallops Lungs: Clear to P&A Abd: Soft, Normal bowel sounds, No organomegaly Ext:No significant edema Labs/MEds reviewed A/P 63 y/o patient with HIV, admitted with diarrhea Leukopenia: suspect marrow failure from advanced AIDS check AFB/fungal cultures Check LDH Growth factor support
[2018-10-02] MEDS: SODIUM CHLORIDE 1,000 ML IV SCH (04:53)
[2018-10-02] MEDS: HEPARIN NA (PORCINE) 5,000 UNITS/ML 1ML VIAL SQ SCH ×3 (05:55→21:39)
[2018-10-02 07:34] LABS: HEMATOCRIT 26.8 % (32.4-45.2); HEMOGLOBIN 9.2 GM/dL (10.7-15.3); MCH 28.6 pg (25.7-33.7); MCHC 34.4 g/dl (32.0-36.0); MEAN CELL VOLUME 83.3 fl (80-96); MEAN PLT VOLUME 8.6 fl (7.5-11.1); PLATELET COUNT 119 K/MM3 (134-434); RBC 3.22 M/mm3 (3.60-5.2); RDW 15.1 % (11.6-15.6)
[2018-10-02 08:05] LABS: ALBUMIN 2.9 g/dl (3.4-5.0); ALK PHOS 96 U/L (45-117); ANION GAP 5 MMOL/L (8-16); BILIRUBIN,TOTAL 0.3 mg/dL (0.2-1); BLOOD UREA NITROGEN 6 mg/dL (7-18); CALCIUM 7.6 mg/dL (8.5-10.1); CHLORIDE 112 mmol/L (98-107); CO2 27 mmol/L (21-32); CREATININE 0.9 mg/dL (0.55-1.3); GLUCOSE,RANDOM 87 mg/dL (74-106); POTASSIUM 3.6 mmol/L (3.5-5.1); SGOT/AST 84 U/L (15-37); SGPT/ALT 76 U/L (13-61); SODIUM 144 mmol/L (136-145); TOT PROT 7.1 g/dl (6.4-8.2)
[2018-10-02] MEDS ORDERED: PT OWN MED DRAWER 7, Y5N ONE (08:07)
[2018-10-02] MEDS: ATOVAQUONE 750 MG/5 ML (UNIT-DOSE PACKAGING) PO SCH (08:47)
[2018-10-02] MEDS: ABACAVIR SULFATE 300 MG TABLET PO SCH (10:03)
[2018-10-02] MEDS: lamiVUDine 150 MG TABLET PO SCH (10:03)
[2018-10-02] MEDS: RITONAVIR 100 MG TABLET PO SCH (10:03)
[2018-10-02] MEDS: LACTOBACILLUS ACIDOPHILUS 1 TABLET PO SCH (10:04)
[2018-10-02] MEDS: TENOFOVIR DISOPROXIL FUMARATE 300 MG TABLET PO SCH (10:04)
[2018-10-02] MEDS: DARUNAVIR ETHANOLATE 800 MG TAB PO SCH (10:04)
[2018-10-02] MEDS: valACYclovir HCL 500 MG TABLET (FP) PO SCH ×2 (10:05→21:39)
--- NOTE | 2018-10-02 14:42 | PN ---
Physical Exam: SUBJECTIVE: Patient seen and examined OBJECTIVE: Vital Signs Period Temp Pulse Resp BP Sys/Inman Pulse Ox Last 24 Hr 97.6 F-98.3 F 70-78 18-20 109-128/59-94 98 GENERAL: The patient is awake, alert, and fully oriented, in no acute distress. HEAD: Normal with no signs of trauma. EYES: PERRL, extraocular movements intact, sclera anicteric, conjunctiva clear. No ptosis. ENT: Ears normal, nares patent, oropharynx clear without exudates, moist mucous membranes. NECK: Trachea midline, full range of motion, supple. LUNGS: Breath sounds equal, clear to auscultation bilaterally, no wheezes, no crackles, no accessory muscle use. HEART: Regular rate and rhythm, S1, S2 without murmur, rub or gallop. ABDOMEN: Soft, nontender, nondistended, normoactive bowel sounds, no guarding, no rebound, no hepatosplenomegaly, no masses. EXTREMITIES: 2+ pulses, warm, well-perfused, no edema. NEUROLOGICAL: Cranial nerves II through XII grossly intact. Normal speech, gait not observed. PSYCH: Normal mood, normal affect. SKIN: Warm, dry, normal turgor, no rashes or lesions noted Laboratory Results - last 24 hr 10/02/18 10/02/18 06:00 06:00 WBC 11.0 H RBC 3.22 L Hgb 9.2 L Hct 26.8 L MCV 83.3 MCH 28.6 MCHC 34.4 RDW 15.1 Plt Count 119 L MPV 8.6 Sodium 144 Potassium 3.6 Chloride 112 H Carbon Dioxide 27 Anion Gap 5 L BUN 6 L Creatinine 0.9 Creat Clearance w eGFR > 60 Random Glucose 87 Calcium 7.6 L Total Bilirubin 0.3 AST 84 H ALT 76 H Alkaline Phosphatase 96 Total Protein 7.1 Albumin 2.9 L Active Medications Generic Name Dose Route Start Last Admin Trade Name Freq PRN Reason Stop Dose Admin Abacavir Sulfate 600 mg 09/30/18 10:00 10/02/18 10:03 Ziagen - PO 600 mg DAILY SHERI Administration Albuterol Sulfate 2 puff 09/29/18 19:03 Ventolin Hfa Inhaler - IH Q4H PRN WHEEZING Atovaquone 1,500 mg 10/02/18 08:00 10/02/18 08:47 Mepron - PO 1,500 mg DAILY@0800 SHERI Administration Darunavir 800 mg 09/30/18 10:00 10/02/18 10:04 Prezista - PO 800 mg DAILY SHERI Administration Heparin Sodium (Porcine) 5,000 unit 09/29/18 22:00 10/02/18 05:55 Heparin - SQ Not Given TID [facility] Sodium Chloride 1,000 mls @ 100 mls/hr 09/29/18 18:30 10/02/18 04:53 Normal Saline - IV 100 mls/hr ASDIR SHERI Administration Ibuprofen 400 mg 10/01/18 17:08 Motrin - PO ONCE PRN PAIN LEVEL 6-10 Lactobacillus Acidophilus 1 tab 09/30/18 10:00 10/02/18 10:04 Bacid - PO 1 tab DAILY SHERI Administration Lamivudine 300 mg 09/30/18 10:00 10/02/18 10:03 Epivir - PO 300 mg DAILY SHERI Administration Ritonavir 100 mg 09/30/18 10:00 10/02/18 10:03 Norvir - PO 100 mg DAILY SHERI Administration Tenofovir Disoproxil Fumarate 300 mg 09/30/18 08:00 10/02/18 10:04 Viread - PO 300 mg DAILY@0800 [facility] Administration Valacyclovir HCl 500 mg 09/29/18 22:00 10/02/18 10:05 Valtrex - PO 500 mg BID SHERI Administration ASSESSMENT/PLAN:
[2018-10-03] MEDS: HEPARIN NA (PORCINE) 5,000 UNITS/ML 1ML VIAL SQ SCH ×3 (05:18→21:13)
[2018-10-03 07:00] LABS: BASO % 0.3 % (0-2.0); HEMATOCRIT 27.7 % (32.4-45.2); HEMOGLOBIN 9.4 GM/dL (10.7-15.3); LYMPH % 6.7 % (8-40); MCH 28.3 pg (25.7-33.7); MCHC 33.9 g/dl (32.0-36.0); MEAN CELL VOLUME 83.5 fl (80-96); MONO % 7.1 % (3.8-10.2); NEUT % 85.9 % (42.8-82.8); PLATELET COUNT 138 K/MM3 (134-434); RBC 3.32 M/mm3 (3.60-5.2); WHITE BLOOD COUNT 12.4 K/mm3 (4.0-10.0)
[2018-10-03 07:16] LABS: ALBUMIN 3.1 g/dl (3.4-5.0); ALK PHOS 102 U/L (45-117); ANION GAP 6 MMOL/L (8-16); BILIRUBIN,TOTAL 0.2 mg/dL (0.2-1); BLOOD UREA NITROGEN 10 mg/dL (7-18); CALCIUM 7.7 mg/dL (8.5-10.1); CHLORIDE 110 mmol/L (98-107); CO2 27 mmol/L (21-32); CREATININE 0.9 mg/dL (0.55-1.3); GLUCOSE,RANDOM 73 mg/dL (74-106); LDH 236 U/L (84-246); POTASSIUM 3.6 mmol/L (3.5-5.1); SGOT/AST 61 U/L (15-37); SGPT/ALT 65 U/L (13-61); SODIUM 143 mmol/L (136-145); TOT PROT 7.5 g/dl (6.4-8.2); URIC ACID 4.4 mg/dL (2.6-7.2)
[2018-10-03] MEDS ORDERED: PT OWN MED DRAWER 7, Y5N ONE ×2 (08:44→17:48)
[2018-10-03] MEDS: ATOVAQUONE 750 MG/5 ML (UNIT-DOSE PACKAGING) PO SCH (08:48)
--- NOTE | 2018-10-03 10:11 | PN ---
Physical Exam: SUBJECTIVE: Patient seen and examined. No acute events overnight. Offers no complaints. Says she wants to go home. OBJECTIVE: Vital Signs Period Temp Pulse Resp BP Sys/Inman Pulse Ox Last 24 Hr 97.8 F-98.2 F 65-88 18-18 94-130/59-91 GENERAL: The patient is awake, alert, and fully oriented, in no acute distress. HEAD: Normocephalic, atraumatic. EYES: PERRL, extraocular movements intact, sclera anicteric. ENT: Oropharynx clear without exudates, dry mucous membranes. NECK: Supple without lymphadenopathy, or JVD LUNGS: Good inspiratory effort, clear to auscultation bilaterally. No wheezing, no crackles appreciated. Patient is not using accessory muscles of respiration. HEART: Regular rate and rhythm. S1, S2 auscultated without murmur, rub or gallop. ABDOMEN: soft, nontender, ND EXTREMITIES: 2+ radial and dorsalis pedis pulses B/L. Warm, well-perfused, no edema bilateral lower extremities. NEUROLOGICAL: Cranial nerves II through XII grossly intact. Normal speech. PSYCH: Normal mood, normal affect upon my encounter today. Laboratory Results - last 24 hr 10/03/18 10/03/18 10/03/18 06:00 06:00 06:00 WBC 12.4 H RBC 3.32 L Hgb 9.4 L Hct 27.7 L MCV 83.5 MCH 28.3 MCHC 33.9 RDW 15.0 Plt Count 138 MPV 8.0 Absolute Neuts (auto) 10.7 H Neutrophils % 85.9 H D Lymphocytes % 6.7 L D Monocytes % 7.1 Eosinophils % 0.0 D Basophils % 0.3 Nucleated RBC % 0 ESR 52 H Sodium 143 Potassium 3.6 Chloride 110 H Carbon Dioxide 27 Anion Gap 6 L BUN 10 Creatinine 0.9 Creat Clearance w eGFR > 60 Random Glucose 73 L Uric Acid 4.4 Calcium 7.7 L Total Bilirubin 0.2 AST 61 H ALT 65 H Alkaline Phosphatase 102 LD Total 236 C-Reactive Protein < 0.3 Total Protein 7.5 Albumin 3.1 L Active Medications Generic Name Dose Route Start Last Admin Trade Name Freq PRN Reason Stop Dose Admin Abacavir Sulfate 600 mg 09/30/18 10:00 10/02/18 10:03 Ziagen - PO 600 mg DAILY SHERI Administration Albuterol Sulfate 2 puff 09/29/18 19:03 Ventolin Hfa Inhaler - IH Q4H PRN WHEEZING Atovaquone 1,500 mg 10/02/18 08:00 10/03/18 08:48 Mepron - PO 1,500 mg DAILY@0800 SHERI Administration Darunavir 800 mg 09/30/18 10:00 10/02/18 10:04 Prezista - PO 800 mg DAILY SHERI Administration Heparin Sodium (Porcine) 5,000 unit 09/29/18 22:00 10/03/18 05:18 Heparin - SQ Not Given TID SHERI Ibuprofen 400 mg 10/01/18 17:08 Motrin - PO ONCE PRN PAIN LEVEL 6-10 Lactobacillus Acidophilus 1 tab 09/30/18 10:00 10/02/18 10:04 Bacid - PO 1 tab DAILY SHERI Administration Lamivudine 300 mg 09/30/18 10:00 10/02/18 10:03 Epivir - PO 300 mg DAILY SHERI Administration Ritonavir 100 mg 09/30/18 10:00 10/02/18 10:03 Norvir - PO 100 mg DAILY SHERI Administration Tenofovir Disoproxil Fumarate 300 mg 09/30/18 08:00 10/02/18 10:04 Viread - PO 300 mg DAILY@0800 SHERI Administration Valacyclovir HCl 500 mg 09/29/18 22:00 10/02/18 21:39 Valtrex - PO 500 mg BID SHERI Administration ASSESSMENT/PLAN: Patient is a 63 year old female with history of HIV (poorly compliant with HAART ) presents with complaint of generalized weakness and diarrhea for two days prior to admission. #Gastroenteritis -Diarrhea, and malaise likely secondary to viral vs. bacterial gastroenteritis. However given her history of HIV with poor HAART compliance, must consider opportunistic infections. -CT abdomen, pelvis shows no acute pathology. -Influenza swab negative -Doxycycline discontinued with ID recommendation -Atovaquone 1500mg PO daily -Bacid 1 tab daily -Stool presumptive negative for Cryptosporidium, and Giardia antigen -Follow stool culture -Stool for ova and parasites -Stool for Norovirus -Follow Rotvirus Ag, Isospora -Follow stool Lactoferrin -ID consult (Dr. Pena) appreciated. #HIV -Poorly compliant with home HAART therapy. Cont. HAART medications. -Abacavir 600mg PO daily -Lamivudine 300mg PO daily -Tenofovir 300mg PO daily -Ritonavir 100mg PO daily -Darunavir 800md PO daily -Valaciclovir 500mg PO BID -ID consult (Dr. Pena) appreciated. #Transaminitis -improving -No Abdominal tenderness upon exam. -CT abdomen, pelvis shows no acute pathology. -Will follow CMP #Neutropenia -improved -WBC 12.4 -May be secondary to HAART therapy. -Hematology consult (Dr. Gill) appreciated. -Patient received Granix 300mcg IV -Follow CMP #History of polysubstance abuse -Urine toxicology positive for Cocaine -Counselled patient regarding drug abstinence -Monitor for signs of withdrawal #FEN -No iv fluids -Follow CMP -Regular diet #Prophylaxis -Heparin 5000u subq TID #Disposition -Continue care in medical- surgical floor. Visit type - Emergency Visit Emergency Visit: Yes ED Registration Date: 09/29/18 Care time: The patient presented to the Emergency Department on the above date and was hospitalized for further evaluation of their emergent condition. - New Patient This patient is new to me today: Yes Date on this admission: 10/03/18 - Critical Care Critical Care patient: No
[2018-10-03] MEDS: LACTOBACILLUS ACIDOPHILUS 1 TABLET PO SCH (10:34)
[2018-10-03] MEDS: ABACAVIR SULFATE 300 MG TABLET PO SCH (10:35)
[2018-10-03] MEDS: valACYclovir HCL 500 MG TABLET (FP) PO SCH ×2 (10:35→21:12)
[2018-10-03] MEDS: RITONAVIR 100 MG TABLET PO SCH (10:35)
[2018-10-03] MEDS: lamiVUDine 150 MG TABLET PO SCH (10:35)
[2018-10-03] MEDS: DARUNAVIR ETHANOLATE 800 MG TAB PO SCH (10:36)
[2018-10-03] MEDS: PROCHLORPERAZINE MALEATE 5 MG TABLET PO PRN (12:29)
[2018-10-03] MEDS: TENOFOVIR DISOPROXIL FUMARATE 300 MG TABLET PO SCH ×2 (15:37→17:49)
--- NOTE | 2018-10-03 17:39 | PN ---
Teaching Attending Note Name of Resident: Martinez Rivas ATTENDING PHYSICIAN STATEMENT I saw and evaluated the patient. I reviewed the resident's note and discussed the case with the resident. I agree with the resident's findings and plan as documented. SUBJECTIVE: OBJECTIVE: Vital Signs Period Temp Pulse Resp BP Sys/Inman Pulse Ox Last 24 Hr 97.8 F-98.2 F 65-81 18-18 94-130/59-91 98 Laboratory Results - last 24 hr 10/03/18 10/03/18 10/03/18 06:00 06:00 06:00 WBC 12.4 H RBC 3.32 L Hgb 9.4 L Hct 27.7 L MCV 83.5 MCH 28.3 MCHC 33.9 RDW 15.0 Plt Count 138 MPV 8.0 Absolute Neuts (auto) 10.7 H Neutrophils % 85.9 H D Lymphocytes % 6.7 L D Monocytes % 7.1 Eosinophils % 0.0 D Basophils % 0.3 Nucleated RBC % 0 ESR 52 H Sodium 143 Potassium 3.6 Chloride 110 H Carbon Dioxide 27 Anion Gap 6 L BUN 10 Creatinine 0.9 Creat Clearance w eGFR > 60 Random Glucose 73 L Uric Acid 4.4 Calcium 7.7 L Total Bilirubin 0.2 AST 61 H ALT 65 H Alkaline Phosphatase 102 LD Total 236 C-Reactive Protein < 0.3 Total Protein 7.5 Albumin 3.1 L Current Medications Generic Name Dose Route Start Last Admin Trade Name Freq PRN Reason Stop Dose Admin Abacavir Sulfate 600 mg 09/30/18 10:00 10/03/18 10:35 Ziagen - PO 600 mg DAILY SHERI Administration Albuterol Sulfate 2 puff 09/29/18 19:03 Ventolin Hfa Inhaler - IH Q4H PRN WHEEZING Atovaquone 1,500 mg 10/02/18 08:00 10/03/18 08:48 Mepron - PO 1,500 mg DAILY@0800 SHERI Administration Darunavir 800 mg 09/30/18 10:00 10/03/18 10:36 Prezista - PO 800 mg DAILY SHERI Administration Heparin Sodium (Porcine) 5,000 unit 09/29/18 22:00 10/03/18 15:37 Heparin - SQ Not Given TID SHERI Ibuprofen 400 mg 10/01/18 17:08 Motrin - PO ONCE PRN PAIN LEVEL 6-10 Lactobacillus Acidophilus 1 tab 09/30/18 10:00 10/03/18 10:34 Bacid - PO 1 tab DAILY SHERI Administration Lamivudine 300 mg 09/30/18 10:00 10/03/18 10:35 Epivir - PO 300 mg DAILY SHERI Administration Prochlorperazine Maleate 5 mg 10/03/18 11:50 10/03/18 12:29 Compazine - PO 5 mg Q4H PRN Administration NAUSEA AND/OR VOMITING Ritonavir 100 mg 09/30/18 10:00 10/03/18 10:35 Norvir - PO 100 mg DAILY SHERI Administration Tenofovir Disoproxil Fumarate 300 mg 09/30/18 08:00 10/03/18 15:37 Viread - PO Not Given DAILY@0800 [facility] Valacyclovir HCl 500 mg 09/29/18 22:00 10/03/18 10:35 Valtrex - PO 500 mg BID SHERI Administration ASSESSMENT AND PLAN:
[2018-10-04] MEDS: HEPARIN NA (PORCINE) 5,000 UNITS/ML 1ML VIAL SQ SCH ×2 (05:07→14:24)
[2018-10-04] MEDS ORDERED: PT OWN MED DRAWER 7, Y5N ONE ×3 (07:48→09:53)
[2018-10-04 08:26] LABS: ALBUMIN 3.4 g/dl (3.4-5.0); ALK PHOS 110 U/L (45-117); ANION GAP 6 MMOL/L (8-16); BILIRUBIN,TOTAL 0.3 mg/dL (0.2-1); BLOOD UREA NITROGEN 12 mg/dL (7-18); CALCIUM 8.4 mg/dL (8.5-10.1); CHLORIDE 107 mmol/L (98-107); CO2 28 mmol/L (21-32); CREATININE 0.9 mg/dL (0.55-1.3); GLUCOSE,RANDOM 85 mg/dL (74-106); POTASSIUM 3.9 mmol/L (3.5-5.1); SGOT/AST 55 U/L (15-37); SGPT/ALT 63 U/L (13-61); SODIUM 142 mmol/L (136-145); TOT PROT 8.2 g/dl (6.4-8.2)
--- NOTE | 2018-10-04 08:26 | PN ---
Teaching Attending Note Name of Resident: Arley Alcaraz ATTENDING PHYSICIAN STATEMENT I saw and evaluated the patient. I reviewed the resident's note and discussed the case with the resident. I agree with the resident's findings and plan as documented. 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 MEDS: Active Medications Abacavir Sulfate (Ziagen -) 600 mg PO DAILY [facility] Last Admin: 10/03/18 10:35 Dose: 600 mg Albuterol Sulfate (Ventolin Hfa Inhaler -) 2 puff IH Q4H PRN PRN Reason: WHEEZING Atovaquone (Mepron -) 1,500 mg PO DAILY@0800 [facility] Last Admin: 10/03/18 08:48 Dose: 1,500 mg Darunavir (Prezista -) 800 mg PO DAILY [facility] Last Admin: 10/03/18 10:36 Dose: 800 mg Heparin Sodium (Porcine) (Heparin -) 5,000 unit SQ TID [facility] Last Admin: 10/04/18 05:07 Dose: Not Given Ibuprofen (Motrin -) 400 mg PO ONCE PRN PRN Reason: PAIN LEVEL 6-10 Lactobacillus Acidophilus (Bacid -) 1 tab PO DAILY [facility] Last Admin: 10/03/18 10:34 Dose: 1 tab Lamivudine (Epivir -) 300 mg PO DAILY [facility] Last Admin: 10/03/18 10:35 Dose: 300 mg Prochlorperazine Maleate (Compazine -) 5 mg PO Q4H PRN PRN Reason: NAUSEA AND/OR VOMITING Last Admin: 10/03/18 12:29 Dose: 5 mg Ritonavir (Norvir -) 100 mg PO DAILY [facility] Last Admin: 10/03/18 10:35 Dose: 100 mg Tenofovir Disoproxil Fumarate (Viread -) 300 mg PO DAILY@0800 [facility] Last Admin: 10/03/18 17:49 Dose: 300 mg Valacyclovir HCl (Valtrex -) 500 mg PO BID [facility] Last Admin: 10/03/18 21:12 Dose: 500 mg Plan; Cont current meds F/U CBC if ID agrees can be Dc Home. Problem List - Problems (1) Diarrhea Code(s): R19.7 - DIARRHEA, UNSPECIFIED Qualifiers: Diarrhea type: unspecified type Qualified Code(s): R19.7 - Diarrhea, unspecified (2) AIDS Code(s): B20 - HUMAN IMMUNODEFICIENCY VIRUS [HIV] DISEASE (3) Sepsis Code(s): A41.9 - SEPSIS, UNSPECIFIED ORGANISM Qualifiers: Sepsis type: sepsis due to unspecified organism Qualified Code(s): A41.9 - Sepsis, unspecified organism (4) Asthma exacerbation Code(s): J45.901 - UNSPECIFIED ASTHMA WITH (ACUTE) EXACERBATION (5) Dehydration Code(s): E86.0 - DEHYDRATION
[2018-10-04 08:28] LABS: BASO % 0.3 % (0-2.0); EOS % 0.1 % (0-4.5); HEMATOCRIT 29.2 % (32.4-45.2); LYMPH % 9.9 % (8-40); MCH 28.6 pg (25.7-33.7); MCHC 34.3 g/dl (32.0-36.0); MEAN CELL VOLUME 83.3 fl (80-96); MEAN PLT VOLUME 8.7 fl (7.5-11.1); MONO % 8.8 % (3.8-10.2); NEUT % 80.9 % (42.8-82.8); PLATELET COUNT 156 K/MM3 (134-434); RBC 3.51 M/mm3 (3.60-5.2); RDW 15.2 % (11.6-15.6); WHITE BLOOD COUNT 8.4 K/mm3 (4.0-10.0)
[2018-10-04] MEDS: ATOVAQUONE 750 MG/5 ML (UNIT-DOSE PACKAGING) PO SCH (08:37)
[2018-10-04] MEDS: TENOFOVIR DISOPROXIL FUMARATE 300 MG TABLET PO SCH (08:37)
[2018-10-04] MEDS: ABACAVIR SULFATE 300 MG TABLET PO SCH (10:14)
[2018-10-04] MEDS: DARUNAVIR ETHANOLATE 800 MG TAB PO SCH (10:14)
[2018-10-04] MEDS: valACYclovir HCL 500 MG TABLET (FP) PO SCH (10:14)
[2018-10-04] MEDS: PROCHLORPERAZINE MALEATE 5 MG TABLET PO PRN (10:14)
[2018-10-04] MEDS: lamiVUDine 150 MG TABLET PO SCH (10:14)
[2018-10-04] MEDS: RITONAVIR 100 MG TABLET PO SCH (10:14)
[2018-10-04] MEDS: LACTOBACILLUS ACIDOPHILUS 1 TABLET PO SCH (10:25)
--- NOTE | 2018-10-04 13:19 | PN ---
Teaching Attending Note Name of Resident: Arley Alcaraz ATTENDING PHYSICIAN STATEMENT I saw and evaluated the patient. I reviewed the resident's note and discussed the case with the resident. I agree with the resident's findings and plan as documented. 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 CBC, BMP 10/04/18 07:10 10/04/18 07:10 Active Medications Abacavir Sulfate (Ziagen -) 600 mg PO DAILY [facility] Last Admin: 10/04/18 10:14 Dose: 600 mg Albuterol Sulfate (Ventolin Hfa Inhaler -) 2 puff IH Q4H PRN PRN Reason: WHEEZING Atovaquone (Mepron -) 1,500 mg PO DAILY@0800 [facility] Last Admin: 10/04/18 08:37 Dose: 1,500 mg Darunavir (Prezista -) 800 mg PO DAILY [facility] Last Admin: 10/04/18 10:14 Dose: 800 mg Heparin Sodium (Porcine) (Heparin -) 5,000 unit SQ TID [facility] Last Admin: 10/04/18 05:07 Dose: Not Given Ibuprofen (Motrin -) 400 mg PO ONCE PRN PRN Reason: PAIN LEVEL 6-10 Lactobacillus Acidophilus (Bacid -) 1 tab PO DAILY [facility] Last Admin: 10/04/18 10:25 Dose: 1 tab Lamivudine (Epivir -) 300 mg PO DAILY [facility] Last Admin: 10/04/18 10:14 Dose: 300 mg Prochlorperazine Maleate (Compazine -) 5 mg PO Q4H PRN PRN Reason: NAUSEA AND/OR VOMITING Last Admin: 10/04/18 10:14 Dose: 5 mg Ritonavir (Norvir -) 100 mg PO DAILY [facility] Last Admin: 10/04/18 10:14 Dose: 100 mg Tenofovir Disoproxil Fumarate (Viread -) 300 mg PO DAILY@0800 [facility] Last Admin: 10/04/18 08:37 Dose: 300 mg Valacyclovir HCl (Valtrex -) 500 mg PO BID [facility] Last Admin: 10/04/18 10:14 Dose: 500 mg ASSESSMENT AND PLAN:
--- NOTE | 2018-10-04 15:06 | DS ---
Physical Exam: SUBJECTIVE: Patient seen and examined at bedside this morning. She denies diarrhea, melena, or hematochezia overnight. She is tolerating diet without abdominal pain, nausea, vomiting. She denies subjective fevers, or chills. OBJECTIVE: Vital Signs Period Temp Pulse Resp BP Sys/Inman Pulse Ox Last 24 Hr 98 F-98.2 F 66-71 18-18 107-108/67-72 PHYSICAL EXAM GENERAL: The patient is awake, alert, and fully oriented, in no acute distress. HEAD: Normocephalic, atraumatic. EYES: PERRL, extraocular movements intact, sclera anicteric. ENT: Oropharynx clear without exudates, dry mucous membranes. NECK: Supple without lymphadenopathy, or JVD LUNGS: Good inspiratory effort, clear to auscultation bilaterally. No wheezing, no crackles appreciated. Patient is not using accessory muscles of respiration. HEART: Regular rate and rhythm. S1, S2 auscultated without murmur, rub or gallop. ABDOMEN: Soft, nontender to light and deep palpation X4 quadrants. Normoactive bowel sounds X4 quadrants. No guarding no rebound tenderness. No hepatomegaly palpated. EXTREMITIES: 2+ radial and dorsalis pedis pulses B/L. Warm, well-perfused, no edema bilateral lower extremities. NEUROLOGICAL: Cranial nerves II through XII grossly intact. Normal speech. PSYCH: Normal mood, normal affect upon my encounter today. SKIN: Warm, dry. LABS Laboratory Results - last 24 hr 10/04/18 10/04/18 07:10 07:10 WBC 8.4 RBC 3.51 L Hgb 10.0 L Hct 29.2 L MCV 83.3 MCH 28.6 MCHC 34.3 RDW 15.2 Plt Count 156 MPV 8.7 Absolute Neuts (auto) 6.8 Neutrophils % 80.9 Lymphocytes % 9.9 D Monocytes % 8.8 Eosinophils % 0.1 D Basophils % 0.3 Nucleated RBC % 0 Sodium 142 Potassium 3.9 Chloride 107 Carbon Dioxide 28 Anion Gap 6 L BUN 12 Creatinine 0.9 Creat Clearance w eGFR > 60 Random Glucose 85 Calcium 8.4 L Total Bilirubin 0.3 AST 55 H ALT 63 H Alkaline Phosphatase 110 Total Protein 8.2 Albumin 3.4 HOSPITAL COURSE: Date of Admission:09/29/18 Date of Discharge: 10/04/18 Patient is a 63 year old female with history of HIV (poorly compliant with HAART ) presents with complaint of generalized weakness and diarrhea for two days prior to admission. CT abdomen, pelvis shows no acute pathology. Patient had lactic acidosis of 2.2 that resolved to 0.8 with IV fluid hydration. Influenza swab negative. Patient was evaluated by infectious disease consult, and reinstated on HAART. Patient was started on Atovaquone, monitored off antibiotics. Stool cultures negative. Diarrhea resolved spontaneously. Neutropenia (chronic) was evaluated by hematology, and patient received Granix. Patient tolerated diet without abdominal pain, nausea, vomiting. Patient was discharged home to continue with HAART valacycolir, atovaquone, and bacid with follow up with primary care physician, and infectious disease. Minutes to complete discharge: 45 Discharge Summary Reason For Visit: FEVER,HIV,SEPSIS,COPD Current Active Problems Cough (Acute) Fever and chills (Acute) Sepsis (Acute) HIV (human immunodeficiency virus infection) (Chronic) Condition: Stable - Instructions Diet, Activity, Other Instructions: You were admitted to hospital with diarrhea. You were evaluated by the infectious disease physician, and treated with antibiotics and antiparasitic medication. You are being discharged home. Continue taking your home medications as directed: Abacavir 600mg daily Lamivudine 300mg dialy Darunavir 800mg daily Ritonavir 100mg daily Tenofovir 300mg daily Valacyclovir 500mg every 12 hours Albuterol inhaler 2 puffs every 4 hours as needed Lactobacillus 1 tablet daily You will begin taking Atovaquone 1500mg daily Follow up with your primary care physician within two- three days of discharge. Follow up with infectious disease physician Dr. Ivey within one week of discharge. Return to the nearest emergency department if you experience worsening symptoms , fevers, chills, shortness of breath, chest pain, palpitations, abdominal pain , nausea, vomiting, diarrhea, blood with bowel movements, dark tarry black stools. Referrals: Jamila Ivey MD [Staff Physician] - Disposition: HOME - Home Medications Comprehensive Discharge Medication List: Ambulatory Orders Albuterol Sulfate Inhaler - [Ventolin HFA Inhaler -] 1 - 2 inh PO Q4H #1 inhaler 08/17/18 Darunavir Ethanolate [Prezista -] 800 mg PO DAILY #30 tablet 08/17/18 Ritonavir 100 mg PO DAILY #30 tablet 08/17/18 Tenofovir Disoproxil Fumarate [Viread -] 300 mg PO DAILY #30 tablet 08/17/18 Valacyclovir HCl [Valtrex -] 500 mg PO BID #60 tablet 08/17/18 Abacavir Sulfate [Ziagen -] 600 mg PO DAILY 30 Days #30 tablet 10/04/18 Atovaquone [Mepron Oral Solution -] 1,500 mg PO DAILY@0800 30 Days #60 ud Lactobacillus Acidophilus [Bacid -] 1 tab PO DAILY 28 Days #28 tab 10/04/18 Lamivudine [Epivir -] 300 mg PO DAILY 30 Days #30 tablet 10/04/18 This patient is new to me today: No Emergency Visit: Yes ED Registration Date: 09/29/18 Care time: The patient presented to the Emergency Department on the above date and was hospitalized for further evaluation of their emergent condition. Critical Care patient: No - Discharge Referral Referred to [facility] Med P.C.: No
[2018-10-04 15:29] VITALS: BP 139/76; PULSE 62; TEMP 97.3
--- NOTE | 2018-10-06 13:00 | PATH ---
Surgical Pathology Report Patient Name: ANIKA ALLEN [facility]. Rec. #: [id number] /Age/Gender: 1955 (Age: 63) / F Account: [id number] Location: [address] [place] [address] Taken: 10/01/2018 Received: 10/04/2018 Reported: 10/06/2018 Physicians: Inderjit Ye M.D. PHYSICIAN EMERGENCY DEPT Specimen(s) Received PERIPHERAL BLOOD IN 4 GREEN 1 LAVENDER TOP TUBES Clinical History Pancytopenia Final Diagnosis COMPREHENSIVE FLOW PANEL performed and interpreted at [place], [place] ([id number]) shows the following: INTERPRETATION: THE MONOCYTIC CELLS ARE 30% OF TOTAL EVENTS, SEE COMMENT. THERE IS NO EVIDENCE OF B OR T-CELL PROLIFERATIVE DISORDERS. NO INCREASE OF MYELOBLASTS. THE CD4:CD8 RATIO IS 0.2:1, SEE COMMENT. Comment: Compared to the prior flow cytometric assessment of a peripheral blood sample on record ([id number], July 2018) the size of the monocytic population is increased and CD4:CD8 ratio is slightly decreased. Correlation with relevant clinical and laboratory data is essential. See [facility] report ([id number]) for additional details. Electronically Signed Karthikeyan Rooney M.D. Addendum Reported: 10/06/2018 Addendum Diagnosis MYELODYSPLASIA FISH PANEL performed and interpreted at [place], [place] ([id number]) shows the following: INTERPRETATION: No evidence of deletion 5q or monosomy 5 is present. No evidence of deletion 7q or monosomy 7 is present. No evidence of trisomy 8 (+8) is present. No evidence of deletion 13q14.2 is present. No evidence of rearrangement of 11q23. No evidence of a deletion of the p53 (17p13) locus. No evidence of deletion 20q12 is present See [facility] report ([id number]) for additional details. Karthikeyan Rooney M.D. Addendum Reported: 10/08/2018 Addendum Diagnosis CYTOGENETIC KARYOTYPE ANALYSIS performed and interpreted at [facility] ([id number]) shows the following: RESULTS: Tissue Culture Failure INTERPRETATION: This unstimulated peripheral blood specimen did not produce any analyzable metaphase cells and, therefore, chromosome analysis is not possible. A bone marrow aspirate, when clinically appropriate, is recommended. See [facility] report for additional details ([id number]). Karthikeyan Rooney M.D. Gross Description Received are 4 green top tubes and 1 lavender top tube of blood which are sent to [facility]. 10/04/2018 saudi10/04/2018
== END 2018-10-04 17:05 | disposition home or self-care (01) | DRG 975 ==
LOC: JER 13:14 → JERBED 14:38 → J5S 09-30 03:30
PROVIDERS: ADMIT Internal Medicine; ATTEND Internal Medicine
DX: A41.9 Sepsis, unspecified organism (principal); E46 Unspecified protein-calorie malnutrition; B20 Human immunodeficiency virus [HIV] disease; Z68.1 Body mass index [BMI] 19.9 or less, adult; E87.2 Acidosis; J44.9 Chronic obstructive pulmonary disease, unspecified; I10 Essential (primary) hypertension; Z91.14 Patient's other noncompliance with medication regimen; F41.9 Anxiety disorder, unspecified; Z88.0 Allergy status to penicillin; R74.0 Nonspecific elevation of levels of transaminase and lactic acid dehydrogenase [LDH]; D72.819 Decreased white blood cell count, unspecified; K52.9 Noninfective gastroenteritis and colitis, unspecified; D63.8 Anemia in other chronic diseases classified elsewhere; F14.10 Cocaine abuse, uncomplicated; E86.0 Dehydration
CPT/HCPCS: 36415; 71045-TC-FY; 74176-TC; 80053; 80307; 81003; 81015; 82803; 83605; 83615; 83631; 83735; 84100; 84550; 85025; 85027; 85610; 85651; 85730; 86140; 86359; 86360; 87040; 87045; 87046; 87086; 87102; 87116; 87177; 87186; 87205; 87207; 87209; 87210; 87324; 87328; 87329; 87425; 87449; 87798; 87804; 88300-TC; 93005; 93010; 99285-25; J0131; J1447; J1644; J7030

== ENCOUNTER 2018-12-03 13:27 | Inpatient (IN) | payer OTHER ==
[2018-12-03] MEDS ORDERED: SODIUM CHLORIDE IV ONE (14:24)
[2018-12-03] MEDS ORDERED: LIDOCAINE VISCOUS 2% ORAL/TOP 20 ML UNIT-DOSE CUP MM ONE (14:53)
--- NOTE | 2018-12-03 14:54 | PDOC ---
History of Present Illness - History of Present Illness Initial Comments: 12/03/18 15:37 The patient is a 63 year old female, with a significant PMH of COPD, HIV/AIDS - CD4 count 69 (non compliant with HAART), adilia stomatitis, chronic leukopenia/ transaminitis who presents to the emergency department from [facility] for evaluation of progressively worsening 2 weeks of sore throat and one day of hemoptysis. The patient states she has been experiencing severe throat pain a/w odynophagia, difficulty swallowing pills. The patient reports a headache and dizziness. She notes history of an endoscopy last year at [facility] where she was diagnosed with reflux. Denies fever, chills, chest pain, SOB, palpitation, weakness, N, V, D, abdominal pain, bladder and bowel problems, leg swelling, No sick contacts or travel. Noncompliant with HAART therapy. Allergies: None Past Medical History: COPD, HIV/AIDS - CD4 count 69 (non compliant with medication), adilia stomatitis Social history: Lives with family. No tobacco, ETOH or drug use. Surgical history: colposcopy/D&C ID: [id number] <Anna Kent - Last Filed: 12/03/18 15:47> - General History Source: Patient Exam Limitations: No Limitations <Marcela Cano - Last Filed: 12/03/18 17:16> - General Chief Complaint: Hemoptysis Stated Complaint: SORE THROAT,COUGHING BLOOD Time Seen by Provider: 12/03/18 14:26 Past History <Anna Kent - Last Filed: 12/03/18 15:47> - Past Medical History Anemia: Yes Asthma: No Cancer: No Cardiac Disorders: No CVA: No COPD: No CHF: No DVT: No Dementia: No Diabetes: No GI Disorders: Yes (GERD, ANOREXIA, LAST EGD 2013) Disorders: No HTN: Yes Hypercholesterolemia: No Liver Disease: No Psychiatric Problems: Yes (ANXIETY) Seizures: No - Surgical History Abdominal Surgery: Yes (EXPLORATORY) - Immunization History Immunization Up to Date: Yes - Suicide/Smoking/Psychosocial Hx Smoking Status: No Smoking History: Former smoker Have you smoked in the past 12 months: No Number of Cigarettes Smoked Daily: 2 If you are a former smoker, when did you quit?: 2 months ago Cigars Per Day: 0 Information on smoking cessation initiated: No 'Breaking Loose' booklet given: 12/15/17 Hx Alcohol Use: No Drug/Substance Use Hx: No Substance Use Type: None Hx Substance Use Treatment: No <Marcela Cano - Last Filed: 12/03/18 17:16> - Past Medical History Allergies/Adverse Reactions: Allergies Allergy/AdvReac Type Severity Reaction Status Date / Time Penicillins Allergy Severe Swelling Verified 12/03/18 14:45 MAYONAISE AdvReac Uncoded 12/03/18 14:36 Home Medications: Ambulatory Orders Albuterol Sulfate Inhaler - [Ventolin HFA Inhaler -] 1 - 2 inh PO Q4H #1 inhaler 08/17/18 Darunavir Ethanolate [Prezista -] 800 mg PO DAILY #30 tablet 08/17/18 Ritonavir 100 mg PO DAILY #30 tablet 08/17/18 Tenofovir Disoproxil Fumarate [Viread -] 300 mg PO DAILY #30 tablet 08/17/18 Valacyclovir HCl [Valtrex -] 500 mg PO BID #60 tablet 08/17/18 Abacavir Sulfate [Ziagen -] 600 mg PO DAILY 30 Days #30 tablet 10/04/18 Atovaquone [Mepron Oral Solution -] 1,500 mg PO DAILY@0800 30 Days #60 ud Lactobacillus Acidophilus [Bacid -] 1 tab PO DAILY 28 Days #28 tab 10/04/18 Lamivudine [Epivir -] 300 mg PO DAILY 30 Days #30 tablet 10/04/18 Review of Systems - Review of Systems Comments:: 12/03/18 15:38 GENERAL/CONSTITUTIONAL: No fever or chills. No weakness. no sweats. HEAD, EYES, EARS, NOSE AND THROAT: (+)sore throat. +Odynophagia, No change in vision or hearing. No ear pain or eye discharge. CARDIOVASCULAR: No chest pain or palpitations, syncope or edema. RESPIRATORY: No SOB, cough, wheezing, (+)hemoptysis. GASTROINTESTINAL No nausea/vomiting. No diarrhea or constipation. No bloody stools. GENITOURINARY: No hematuria, dysuria, frequency, urgency or other changes. MUSCULOSKELETAL: No joint or muscle swelling or pain. No decreased range of motion. No neck or back pain. SKIN: No rash or changes in skin color or lesions. No wounds. NEUROLOGIC: (+)headache and dizziness. alert and oriented appropriately No loss of consciousness, or change in strength/sensation. HEMATOLOGIC/LYMPHATIC: No anemia, easy bruising/bleeding, or history of blood clots. No swollen lymph nodes ALLERGIC/IMMUNOLOGIC: No allergies PSYCH: no anxiety/depression All other systems reviewed and negative, or as documented in HPI. <Anna Kent - Last Filed: 12/03/18 15:47> *Physical Exam - Vital Signs Last Vital Signs Temp Pulse Resp BP Pulse Ox 98.4 F 94 H 18 104/66 97 12/03/18 13:57 12/03/18 13:57 12/03/18 13:57 12/03/18 13:57 12/03/18 13:57 - Physical Exam Comments: 12/03/18 15:38 General: Well appearing, awake and alert, NAD. HEENT: NCAT, PERRL, EOMI, clear conjunctiva, anicteric, dry membranes, clear oropharynx, no oral lesions.. Normal phonation, no thrush, uvula midline Neck: neck supple, FROM Resp: CTAB, normal and even respirations, no respiratory distress CVS: RRR, no murmurs, 2+ peripheral pulses throughout, no peripheral edema Abdomen: soft, NTND, no rebound or guarding. No CVAT. Back: nontender, normal inspection and ROM MSK: no edema, ACEVES x4, ROM intact. No clubbing or cyanosis. normal bulk and tone. Neuro: alert, oriented appropriately; no focal neurologic deficits Skin: warm and well perfused, cap refill <2 sec, normal color, no rash on body <Anna Kent - Last Filed: 12/03/18 15:47> - Vital Signs Last Vital Signs Temp Pulse Resp BP Pulse Ox 98.4 F 94 H 18 104/66 97 12/03/18 13:57 12/03/18 13:57 12/03/18 13:57 12/03/18 13:57 12/03/18 13:57 <Marcela Cano - Last Filed: 12/03/18 17:16> Heart Score/ECG Review #1 ECG reviewed & interpreted by me at: 15:10 General ECG Interpretation: Sinus Rhythm, Normal Rate Compared to previous ECG there are: No significant change 12/03/18 15:45 EKG normal sinus rhythm at 86 bpm, no interval abnormalities, narrow QRS, ST and T wave segments and morphology normal. <Marcela Cano - Last Filed: 12/03/18 17:16> ED Treatment Course - LABORATORY CBC & Chemistry Diagram: 12/03/18 14:55 12/03/18 14:55 - Medications Given in the ED: ED Medications Discontinued Medications Generic Name Dose Route Start Last Admin Trade Name Freq PRN Reason Stop Dose Admin Lidocaine HCl 20 ml 12/03/18 14:53 12/03/18 15:03 Xylocaine 2% Viscous Oral - MM 12/03/18 14:54 20 ml ONCE ONE Administration <DonteAnna - Last Filed: 12/03/18 15:47> - LABORATORY CBC & Chemistry Diagram: 12/03/18 14:55 12/03/18 14:55 - RADIOLOGY Radiology Studies Ordered: Category Date Time Status CHEST X-RAY PORTABLE* [RAD] Stat Radiology 12/03/18 14:24 Ordered Chest X-Ray Result: No Infiltrates, Effusion <Marcela Cano - Last Filed: 12/03/18 17:16> Medical Decision Making - Medical Decision Making 12/03/18 15:41 I, Marcela Cano MD, attest that this document has been prepared under my direction and personally reviewed by me in its entirety. I further attest, that it accurately reflects all work, treatment, procedures and medical decision -making performed by me. See HPI for details Vital signs reviewed, wnl. dDx esophagitis, thrush, dehydration, stricture, infection. Prior notes reviewed, including admissions, discharges and consultations. laboratory results and imaging reviewed, basic labs and lytes wnl, notable for chronic leukopenia and neutropenia. glucose borderline, given fluids with dextrose for supplementation. lactate normal VBG and coags normal. UA_pending CXR_no mass, infiltrate or effusion EKG normal sinus rhythm at 86 bpm, no interval abnormalities, narrow QRS, ST and T wave segments and morphology normal. ED course: no fevers, no systemic sx - however, risk of opportunistic infection , will broadly workup - viscous lidocaine, no relief. maalox in case of reflux sx no e/o oral thrush on exam, will need EGD to eval for esophagitis and delineation of sx. ID cs with Dr Ivey, admitting for further workup admit to medicine for medical management, GI/ID eval, likely scope to eval for source of bleeding, such as esophagitis given AIDS/immunocompromised state. neutropenia precautions bed needed. 12/03/18 17:15 12/03/18 17:16 <Marcela Cano - Last Filed: 12/03/18 17:16> *DC/Admit/Observation/Transfer - Attestations Scribe Attestion: 12/03/18 15:38 Documentation prepared by Anna Kent, acting as medical office specialist for Marcela Cano MD. <Anna Kent - Last Filed: 12/03/18 15:47> - Discharge Dispostion Decision to Admit order: Yes Decision to Admit order Date/Time: 12/03/18 16:19 Decision to Admit Order Category Date Time Status Decision to Admit to Hospital Routine Admission 12/03/18 15:46 Active <Marcela Cano - Last Filed: 12/03/18 17:16> Diagnosis at time of Disposition: HIV (human immunodeficiency virus infection), Odynophagia, Hemoptysis - Discharge Dispostion Condition at time of disposition: Guarded
[2018-12-03] MEDS ORDERED: LIDOCAINE VISCOUS 2% ORAL/TOP 20 ML UNIT-DOSE CUP ONE (14:58)
[2018-12-03] MEDS ORDERED: ACETAMINOPHEN 1000 MG/100 ML VIAL (NON FORMULARY) IVPB ONE (15:33)
[2018-12-03] MEDS ORDERED: MAG HYDROX/AL HYDROX/SIMETH 30 ML UNIT-DOSE CUP PO ONE (15:33)
[2018-12-03 15:40] LABS: VENOUS PC02 56.5 mmHg (41-51); VENOUS PH 7.33 (7.31-7.41); VENOUS PO2 23.1 mmHg (30-40)
[2018-12-03 15:48] LABS: BASO % 0.5 % (0-2.0); HEMATOCRIT 32.9 % (32.4-45.2); HEMOGLOBIN 10.5 GM/dL (10.7-15.3); MCH 27.4 pg (25.7-33.7); MCHC 31.9 g/dl (32.0-36.0); MEAN CELL VOLUME 85.8 fl (80-96); MEAN PLT VOLUME 8.9 fl (7.5-11.1); MONO % 17.9 % (3.8-10.2); NEUT % 55.6 % (42.8-82.8); PLATELET COUNT 224 K/MM3 (134-434); RBC 3.84 M/mm3 (3.60-5.2); RDW 14.8 % (11.6-15.6); WHITE BLOOD COUNT 2.2 K/mm3 (4.0-10.0)
[2018-12-03] MEDS ORDERED: ACETAMINOPHEN INJECTION 100 ML IVPB ONE ×2 (16:05→16:07)
[2018-12-03] MEDS ORDERED: MAG HYDROX/AL HYDROX/SIMETH 30 ML UNIT-DOSE CUP ONE (16:06)
[2018-12-03 16:10] LABS: PROTHROMBIN TIME (PATIENT) 11.8 SEC (9.7-13.0)
[2018-12-03 16:13] LABS: ACTIVATED PTT 34.3 SECONDS (25.2-36.5)
[2018-12-03 16:14] LABS: ALBUMIN 3.6 g/dl (3.4-5.0); ALK PHOS 90 U/L (45-117); ANION GAP 8 MMOL/L (8-16); BILIRUBIN,TOTAL 0.2 mg/dL (0.2-1); BLOOD UREA NITROGEN 13 mg/dL (7-18); CALCIUM 8.1 mg/dL (8.5-10.1); CHLORIDE 102 mmol/L (98-107); CO2 28 mmol/L (21-32); CREATININE 1.1 mg/dL (0.55-1.3); GLUCOSE,RANDOM 73 mg/dL (74-106); POTASSIUM 4.3 mmol/L (3.5-5.1); SGOT/AST 32 U/L (15-37); SGPT/ALT 20 U/L (13-61); SODIUM 138 mmol/L (136-145)
--- NOTE | 2018-12-03 17:17 | PN ---
Teaching Attending Note Name of Resident: Stan Rodriguez ATTENDING PHYSICIAN STATEMENT I saw and evaluated the patient. I reviewed the resident's note and discussed the case with the resident. I agree with the resident's findings and plan as documented. SUBJECTIVE: The patient is a 63 yo female with PMHx of COPD, Anorexia and HIV/AIDS (last CD4 in ) with hx of esophageal candidiasis and GERD who was sent to the ED from the [facility] after she had 4 witnessed episodes of hemoptysis. The patient is c/o having 2 week history of throat pain, cough and odynophagia, and sore throat. OBJECTIVE: Vital Signs Temperature 98.4 F 12/03/18 13:57 Pulse Rate 94 H 12/03/18 13:57 Respiratory Rate 18 12/03/18 13:57 Blood Pressure 104/66 12/03/18 13:57 O2 Sat by Pulse Oximetry (%) 97 12/03/18 13:57 GENERAL: The patient is awake, alert, and fully oriented, in no acute distress. HEAD: Normal with no signs of trauma. EYES: PERRL, extraocular movements intact, bacterial conjunctivitis L>R . purulent discharge of left eye ENT: Ears normal, oropharynx clear without exudates, moist mucous membranes. NECK: Trachea midline, full range of motion, supple. LUNGS: Breath sounds equal, clear to auscultation bilaterally, no wheezes, no crackles, no accessory muscle use. HEART: Regular rate and rhythm, S1, S2 without murmur, rub or gallop. ABDOMEN: Soft, nontender, nondistended, normoactive bowel sounds, no guarding, no rebound, no hepatosplenomegaly, no masses. EXTREMITIES: 2+ pulses, warm, well-perfused, no edema. NEUROLOGICAL: Cranial nerves II through XII grossly intact. Normal speech, gait not observed. PSYCH: Normal mood, normal affect. SKIN: Warm, dry, normal turgor, no rashes or lesions noted CBCD WBC 2.2 K/mm3 (4.0-10.0) L 12/03/18 14:55 RBC 3.84 M/mm3 (3.60-5.2) 12/03/18 14:55 Hgb 10.5 GM/dL (10.7-15.3) L 12/03/18 14:55 Hct 32.9 % (32.4-45.2) 12/03/18 14:55 MCV 85.8 fl (80-96) 12/03/18 14:55 MCHC 31.9 g/dl (32.0-36.0) L 12/03/18 14:55 RDW 14.8 % (11.6-15.6) 12/03/18 14:55 Plt Count 224 K/MM3 (134-434) D 12/03/18 14:55 MPV 8.9 fl (7.5-11.1) 12/03/18 14:55 Sodium 138 mmol/L (136-145) 12/03/18 14:55 Potassium 4.3 mmol/L (3.5-5.1) 12/03/18 14:55 Chloride 102 mmol/L (98-107) 12/03/18 14:55 Carbon Dioxide 28 mmol/L (21-32) 12/03/18 14:55 Anion Gap 8 MMOL/L (8-16) 12/03/18 14:55 BUN 13 mg/dL (7-18) 12/03/18 14:55 Creatinine 1.1 mg/dL (0.55-1.3) 12/03/18 14:55 Creat Clearance w eGFR 50.33 (>60) 12/03/18 14:55 Random Glucose 73 mg/dL (74-106) L 12/03/18 14:55 Calcium 8.1 mg/dL (8.5-10.1) L 12/03/18 14:55 Total Bilirubin 0.2 mg/dL (0.2-1) 12/03/18 14:55 AST 32 U/L (15-37) 12/03/18 14:55 ALT 20 U/L (13-61) 12/03/18 14:55 Alkaline Phosphatase 90 U/L (45-117) 12/03/18 14:55 Total Protein 9.0 g/dl (6.4-8.2) H 12/03/18 14:55 Albumin 3.6 g/dl (3.4-5.0) 12/03/18 14:55 Home Medications Medication Instructions Recorded Albuterol Sulfate Inhaler - 1 - 2 inh PO Q4H #1 inhaler 08/17/18 [Ventolin HFA Inhaler -] Darunavir Ethanolate [Prezista -] 800 mg PO DAILY #30 tablet 08/17/18 Ritonavir 100 mg PO DAILY #30 tablet 08/17/18 Tenofovir Disoproxil Fumarate 300 mg PO DAILY #30 tablet 08/17/18 [Viread -] Valacyclovir HCl [Valtrex -] 500 mg PO BID #60 tablet 08/17/18 Abacavir Sulfate [Ziagen -] 600 mg PO DAILY 30 Days #30 tablet 10/04/18 Atovaquone [Mepron Oral Solution -] 1,500 mg PO DAILY@0800 30 Days #60 10/04/18 ud Lactobacillus Acidophilus [Bacid -] 1 tab PO DAILY 28 Days #28 tab 10/04/18 Lamivudine [Epivir -] 300 mg PO DAILY 30 Days #30 tablet 10/04/18 CXR: no acute pathology ASSESSMENT AND PLAN: The patient is a 63 yo female with PMHx of COPD, Anorexia and HIV/AIDS (last CD4 in ) , esophageal candidiasis and GERD who was sent to the ED from the [facility] after she had 4 witnessed episodes of hemoptysis. # HIV/Aids with complications :throat pain and odynophagia due to esophageal candidiasis: sary start the patient on Nystatin swish and swallow, diflucan oral Id and GI consult. will restart HAART therapy as per ID. #Bacterial conjunctivitis: on ofloxacin 1 drop ou QID # Hemoptysis: Flu swab, rapid step test, urine for legionella ,URI PCR panel #Neutropenia: ANC 1200; mild neutropenia; neutropenic precautions, neutropenic diet DVT Px: Lovenox 40mg SQ daily
[2018-12-03 17:49] LABS: EPI CELLS 2.2 /HPF (0-5); URINE APPEARANCE CLEAR; URINE BACTERIA 45.7 /hpf (NEGATIVE); URINE BILIRUBIN NEGATIVE (NEGATIVE); URINE CASTS 0 /hpf (0-8); URINE COLOR YELLOW; URINE GLUCOSE (UA) NEGATIVE (NEGATIVE); URINE KETONE NEGATIVE (NEGATIVE); URINE LEUK ESTERASE TRACE (NEGATIVE); URINE NITRITE NEGATIVE (NEGATIVE); URINE PROTEIN NEGATIVE (NEGATIVE); URINE RBC 2 /hpf (0-4); URINE UROBILINOGEN 0.2 mg/dL (0.2-1.0); URINE WBC 3 /hpf (0-5)
[2018-12-03] MEDS: DEXTROSE 5%-NORMAL SALINE 1,000 ML IV SCH (17:50)
--- NOTE | 2018-12-03 18:33 | HP ---
CHIEF COMPLAINT: Esophageal pain, Hemoptysis PCP: Dr. Ivey HISTORY OF PRESENT ILLNESS: The patient is a 63 yo f w/ PMH COPD, Anorexia and HIV/AIDS (last CD4 in ) as well as candidiasis stomatitis as well as esophageal candidiasis and GERD who was sent into the ED from the [facility] after she had 4 witnessed episodes of hemoptysis. The patient endorses a 2 week history of throat pain, cough and odynophagia. The patient states that her cough was intermittently productive of yellow sputum. The patient has been nonadherent with her HAART medication and lost to follow up at the [facility]. On interview, the patient' s only complaint was throat pain. Patient denies fevers, chills, chest pain, abdominal pain, diarrhea or vomiting. Patient has one sick child at home with a vial infection. ER course was notable for: (1) viscous lidocaine (2) mylanta (3) tylenol IV Recent Travel: none PAST MEDICAL HISTORY: see HPI PAST SURGICAL HISTORY: none Social History: Smoking: previously smoked 2 cigs per day, quit 2 months ago Alcohol: denies Drugs: denies Family History: non-contributory Allergies Penicillins Allergy (Severe, Verified 12/03/18 14:45) Swelling MAYONAISE Adverse Reaction (Uncoded 12/03/18 14:36) HOME MEDICATIONS: Home Medications Medication Instructions Recorded Albuterol Sulfate Inhaler - 1 - 2 inh PO Q4H #1 inhaler 08/17/18 [Ventolin HFA Inhaler -] Darunavir Ethanolate [Prezista -] 800 mg PO DAILY #30 tablet 08/17/18 Ritonavir 100 mg PO DAILY #30 tablet 08/17/18 Tenofovir Disoproxil Fumarate 300 mg PO DAILY #30 tablet 08/17/18 [Viread -] Valacyclovir HCl [Valtrex -] 500 mg PO BID #60 tablet 08/17/18 Abacavir Sulfate [Ziagen -] 600 mg PO DAILY 30 Days #30 tablet 10/04/18 Atovaquone [Mepron Oral Solution -] 1,500 mg PO DAILY@0800 30 Days #60 10/04/18 ud Lactobacillus Acidophilus [Bacid -] 1 tab PO DAILY 28 Days #28 tab 10/04/18 Lamivudine [Epivir -] 300 mg PO DAILY 30 Days #30 tablet 10/04/18 REVIEW OF SYSTEMS CONSTITUTIONAL: Absent: fever, chills, diaphoresis, generalized weakness, malaise, loss of appetite, weight change HEENT: Absent: rhinorrhea, nasal congestion, throat pain, throat swelling, mouth swelling, ear pain, eye pain, visual changes CARDIOVASCULAR: Absent: chest pain, syncope, palpitations, irregular heart rate, lightheadedness , peripheral edema RESPIRATORY: Absent: cough, shortness of breath, dyspnea with exertion, orthopnea, wheezing, stridor GASTROINTESTINAL: Absent: abdominal pain, abdominal distension, nausea, vomiting, diarrhea, constipation, melena, hematochezia GENITOURINARY: Absent: dysuria, frequency, urgency, hesitancy, hematuria, flank pain, genital pain MUSCULOSKELETAL: Absent: myalgia, arthralgia, joint swelling, back pain, neck pain SKIN: Absent: rash, itching, pallor HEMATOLOGIC/IMMUNOLOGIC: Absent: easy bleeding, easy bruising, lymphadenopathy, frequent infections ENDOCRINE: Absent: unexplained weight gain, unexplained weight loss, heat intolerance, cold intolerance NEUROLOGIC: Absent: headache, focal weakness or paresthesias, dizziness, unsteady gait, seizure, mental status changes, bladder or bowel incontinence PSYCHIATRIC: Absent: anxiety, depression, suicidal or homicidal ideation, hallucinations. PHYSICAL EXAMINATION Vital Signs - 24 hr 12/03/18 12/03/18 13:57 17:43 Temperature 98.4 F Pulse Rate 94 H Pulse Rate [ 84 Apical] Respiratory 18 18 Rate Blood Pressure 104/66 Blood Pressure 132/92 [Left Arm] O2 Sat by Pulse 97 100 Oximetry (%) GENERAL: Awake, alert, and fully oriented, in no acute distress. HEAD: Normal with no signs of trauma. EYES: Pupils equal, round and reactive to light, extraocular movements intact, sclera anicteric, No lid lag. There is purulent drainage at the medial and lateral canthus of the left eye as well as left sided conjunctiva injection. NOSE, THROAT: Ears normal, nares patent, oropharynx clear without exudates. Moist mucous membranes. no oral thrush seen. No erythema seen in the posterior pharynx NECK: Normal range of motion, supple without lymphadenopathy, JVD, or masses. LUNGS: Breath sounds equal, clear to auscultation bilaterally. No wheezes, and no crackles. No accessory muscle use. HEART: Regular rate and rhythm, normal S1 and S2 without murmur, rub or gallop. ABDOMEN: Soft, nontender, not distended, normoactive bowel sounds, no guarding, no rebound, no masses. No hepatomegaly or splenomegaly. LOWER EXTREMITIES: 2+ pulses, warm, well-perfused. No calf tenderness. No peripheral edema. NEUROLOGICAL: Cranial nerves II-X intact. Normal speech. PSYCHIATRIC: Cooperative. Good eye contact. Appropriate mood and affect. SKIN: Warm, dry, normal turgor, no rashes or lesions noted, normal capillary refill. Laboratory Results - last 24 hr 12/03/18 12/03/18 12/03/18 14:55 14:55 14:55 WBC 2.2 L RBC 3.84 Hgb 10.5 L Hct 32.9 MCV 85.8 MCH 27.4 MCHC 31.9 L RDW 14.8 Plt Count 224 D MPV 8.9 Absolute Neuts (auto) 1.2 L Neutrophils % 55.6 D Lymphocytes % 26.0 D Monocytes % 17.9 H D Eosinophils % 0.0 D Basophils % 0.5 Nucleated RBC % 0 PT with INR 11.80 INR 1.00 PTT (Actin FS) 34.3 VBG pH 7.33 POC VBG pCO2 56.5 H POC VBG pO2 23.1 L VBG HCO3 29.1 H VBG O2 Sat (Slime) 29.3 L VBG Base Excess 2.5 H Sodium Potassium Chloride Carbon Dioxide Anion Gap BUN Creatinine Creat Clearance w eGFR Random Glucose Lactic Acid Calcium Total Bilirubin AST ALT Alkaline Phosphatase Total Protein Albumin Urine Color Urine Appearance Urine pH Ur Specific Mammoth Urine Protein Urine Glucose (UA) Urine Ketones Urine Blood Urine Nitrite Urine Bilirubin Urine Urobilinogen Ur Leukocyte Esterase Urine WBC (Auto) Urine RBC (Auto) Urine Casts (Auto) U Epithel Cells (Auto) Urine Bacteria (Auto) 12/03/18 12/03/18 12/03/18 14:55 14:55 17:30 WBC RBC Hgb Hct MCV MCH MCHC RDW Plt Count MPV Absolute Neuts (auto) Neutrophils % Lymphocytes % Monocytes % Eosinophils % Basophils % Nucleated RBC % PT with INR INR PTT (Actin FS) VBG pH POC VBG pCO2 POC VBG pO2 VBG HCO3 VBG O2 Sat (Slime) VBG Base Excess Sodium 138 Potassium 4.3 Chloride 102 Carbon Dioxide 28 Anion Gap 8 BUN 13 Creatinine 1.1 Creat Clearance w eGFR 50.33 Random Glucose 73 L Lactic Acid 1.6 Calcium 8.1 L Total Bilirubin 0.2 AST 32 ALT 20 Alkaline Phosphatase 90 Total Protein 9.0 H Albumin 3.6 Urine Color Yellow Urine Appearance Clear Urine pH 7.0 Ur Specific Mammoth 1.009 L Urine Protein Negative Urine Glucose (UA) Negative Urine Ketones Negative Urine Blood Negative Urine Nitrite Negative Urine Bilirubin Negative Urine Urobilinogen 0.2 Ur Leukocyte Esterase Trace Urine WBC (Auto) 3 Urine RBC (Auto) 2 Urine Casts (Auto) 0 U Epithel Cells (Auto) 2.2 Urine Bacteria (Auto) 45.7 ASSESSMENT/PLAN: The patient is a 63 yo f w/ PMH COPD, Anorexia and HIV/AIDS (last CD4 in ) as well as candidiasis stomatitis as well as esophageal candidiasis and GERD who was sent into the ED from the [facility] after she had 4 witnessed episodes of hemoptysis. #Throat pain and odynophagia 2/2 esophagitis, eitology unclear -With patient's intermittent medication compliance and low CD4 count, CMV and candidial esophagitis must be ruled out -hempotysis may also be caused by chronic cough 2/2 viral infection -will treat empirically with Nystatin swish and swallow as well as PO diflucan -GI consult for EGD -Flu swab, rapid step test -urine for legionella -URI PCR panel #Bacterial conjunctivitis -purulence and injection seen on exam -ofloxacin 1 drop OS QID #HIV/AIDS -case discussed w/ Dr. Ivey. -will restart HAART therapy; patient amenable to restarting treatment -stressed the importance of medication adherence to the patient #Neutropenia -ANC 1200; mild neutropenia -chronic process for the patient -neutropenic precautions #FEN -no fluids indicated -lytes WNL -full liquid diet at the request of the patient #prophy -Lovenox 40mg SQ daily #Dispo -observe on med surg -neutropenic precautions -f/u w/ GI for EGD -Home medications verified with the [facility] Visit type - Emergency Visit Emergency Visit: Yes ED Registration Date: 12/03/18 Care time: The patient presented to the Emergency Department on the above date and was hospitalized for further evaluation of their emergent condition. - New Patient This patient is new to me today: Yes Date on this admission: 12/03/18 - Critical Care Critical Care patient: No
[2018-12-03] MEDS ORDERED: FLUCONAZOLE 100 MG TABLET (UD) PO ONE (18:45)
[2018-12-03] MEDS ORDERED: ALBUTEROL SO4 8 GM HFA INHALER IH PRN (19:01)
[2018-12-03] MEDS ORDERED: ACETAMINOPHEN 325 MG TABLET (FP) PO PRN (19:05)
[2018-12-03] MEDS: LACTOBACILLUS ACIDOPHILUS 1 TABLET PO SCH (20:54)
[2018-12-03] MEDS: RITONAVIR 100 MG TABLET PO SCH (20:55)
[2018-12-03] MEDS: lamiVUDine 150 MG TABLET PO SCH (20:55)
[2018-12-03] MEDS: DARUNAVIR ETHANOLATE 800 MG TAB PO SCH (20:56)
[2018-12-03] MEDS: TENOFOVIR DISOPROXIL FUMARATE 300 MG TABLET PO SCH (20:56)
[2018-12-03] MEDS: ABACAVIR SULFATE 300 MG TABLET PO SCH (20:56)
[2018-12-03] MEDS: LIDOCAINE VISCOUS 2% ORAL/TOP 20 ML UNIT-DOSE CUP MM PRN (21:02)
[2018-12-03] MEDS: HEPARIN NA (PORCINE) 5,000 UNITS/ML 1ML VIAL SQ SCH (21:16)
[2018-12-03] MEDS: OFLOXACIN 0.3% OPHTHALMIC SOLUTION 5 ML BOTTLE OU SCH (21:18)
[2018-12-03] MEDS ORDERED: PT OWN MED DRAWER 7, Y5N ONE (21:55)
[2018-12-03] MEDS ORDERED: OFLOXACIN 0.3% OPHTHALMIC SOLUTION 5 ML BOTTLE OS SCH (22:00)
[2018-12-04] MEDS: NYSTATIN 500,000 UNITS/5 ML SUSPENSION PO SCH ×4 (00:41→18:02)
[2018-12-04] MEDS: HEPARIN NA (PORCINE) 5,000 UNITS/ML 1ML VIAL SQ SCH (05:51)
[2018-12-04 07:32] LABS: BASO % 0.4 % (0-2.0); EOS % 0.1 % (0-4.5); HEMATOCRIT 28.8 % (32.4-45.2); HEMOGLOBIN 9.3 GM/dL (10.7-15.3); LYMPH % 35.4 % (8-40); MCH 27.8 pg (25.7-33.7); MCHC 32.3 g/dl (32.0-36.0); MEAN PLT VOLUME 8.7 fl (7.5-11.1); MONO % 23.9 % (3.8-10.2); NEUT % 40.2 % (42.8-82.8); PLATELET COUNT 180 K/MM3 (134-434); RBC 3.35 M/mm3 (3.60-5.2); RDW 14.6 % (11.6-15.6)
[2018-12-04 07:44] LABS: INR 0.97 (0.83-1.09); PROTHROMBIN TIME (PATIENT) 11.5 SEC (9.7-13.0)
[2018-12-04 07:46] LABS: ACTIVATED PTT 34.1 SECONDS (25.2-36.5)
[2018-12-04 07:58] LABS: WHITE BLOOD COUNT 1.8 K/mm3 (4.0-10.0)
[2018-12-04 08:13] LABS: ALBUMIN 2.8 g/dl (3.4-5.0); ALK PHOS 75 U/L (45-117); ANION GAP 6 MMOL/L (8-16); BILIRUBIN,TOTAL 0.2 mg/dL (0.2-1); BLOOD UREA NITROGEN 9 mg/dL (7-18); CALCIUM 7.5 mg/dL (8.5-10.1); CHLORIDE 112 mmol/L (98-107); CO2 26 mmol/L (21-32); CREATININE 0.9 mg/dL (0.55-1.3); GLUCOSE,RANDOM 84 mg/dL (74-106); MAGNESIUM 2.3 mg/dL (1.8-2.4); POTASSIUM 4.4 mmol/L (3.5-5.1); SGOT/AST 25 U/L (15-37); SGPT/ALT 17 U/L (13-61); SODIUM 144 mmol/L (136-145); TOT PROT 7.2 g/dl (6.4-8.2)
[2018-12-04] MEDS ORDERED: PT OWN MED DRAWER 7, Y5N ONE ×3 (09:24→17:57)
[2018-12-04] MEDS: ACETAMINOPHEN 325 MG TABLET (FP) PO PRN (09:27)
[2018-12-04] MEDS: LACTOBACILLUS ACIDOPHILUS 1 TABLET PO SCH (09:28)
[2018-12-04] MEDS: FLUCONAZOLE 100 MG TABLET (UD) PO SCH (09:28)
[2018-12-04] MEDS: OFLOXACIN 0.3% OPHTHALMIC SOLUTION 5 ML BOTTLE OU SCH ×4 (09:29→21:49)
[2018-12-04] MEDS: ABACAVIR SULFATE 300 MG TABLET PO SCH (09:30)
[2018-12-04] MEDS: lamiVUDine 150 MG TABLET PO SCH (09:30)
[2018-12-04] MEDS: LIDOCAINE VISCOUS 2% ORAL/TOP 20 ML UNIT-DOSE CUP MM PRN (09:31)
[2018-12-04] MEDS: RITONAVIR 100 MG TABLET PO SCH (09:31)
[2018-12-04] MEDS: TENOFOVIR DISOPROXIL FUMARATE 300 MG TABLET PO SCH (09:32)
[2018-12-04] MEDS: DARUNAVIR ETHANOLATE 800 MG TAB PO SCH (09:32)
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
[2018-12-04] MEDS ORDERED: ENOXAPARIN NA (PORCINE) 40 MG/0.4 ML DISP.SYRIN SQ SCH (10:00)
[2018-12-04] MEDS ORDERED: PROCHLORPERAZINE MALEATE 5 MG TABLET PO ONE (11:45)
[2018-12-04] MEDS ORDERED: ONDANSETRON 4 MG TABLET PO PRN (12:10)
--- NOTE | 2018-12-04 13:03 | PN ---
Teaching Attending Note Name of Resident: Evans Clement ATTENDING PHYSICIAN STATEMENT I saw and evaluated the patient. I reviewed the resident's note and discussed the case with the resident. I agree with the resident's findings and plan as documented. SUBJECTIVE: Patient is feeling better , less throat pain on swallowing. OBJECTIVE: Vital Signs Temperature 98.1 F 12/04/18 06:52 Pulse Rate 78 12/04/18 06:52 Respiratory Rate 20 12/04/18 06:52 Blood Pressure 102/63 12/04/18 06:52 O2 Sat by Pulse Oximetry (%) 100 12/03/18 17:43 GENERAL: A&Ox3, no acute distress EYES: PERRLA, EOMI ENT: Moist mucus membranes, no oral thrush. NECK: No JVD LUNGS: CTA, no wheezes HEART: RRR, no murmurs ABDOMEN: Soft, nontender, BS present MUSCULOSKELETAL: No CVA Tenderness EXTREMITIES: 2+ pulses, no edema. NEUROLOGICAL: Cranial nerves II-XII intact. CBCD WBC 1.8 K/mm3 (4.0-10.0) L* 12/04/18 06:00 RBC 3.35 M/mm3 (3.60-5.2) L 12/04/18 06:00 Hgb 9.3 GM/dL (10.7-15.3) L 12/04/18 06:00 Hct 28.8 % (32.4-45.2) L 12/04/18 06:00 MCV 86.0 fl (80-96) 12/04/18 06:00 MCHC 32.3 g/dl (32.0-36.0) 12/04/18 06:00 RDW 14.6 % (11.6-15.6) 12/04/18 06:00 Plt Count 180 K/MM3 (134-434) 12/04/18 06:00 MPV 8.7 fl (7.5-11.1) 12/04/18 06:00 CMP Sodium 144 mmol/L (136-145) 12/04/18 06:00 Potassium 4.4 mmol/L (3.5-5.1) 12/04/18 06:00 Chloride 112 mmol/L (98-107) H 12/04/18 06:00 Carbon Dioxide 26 mmol/L (21-32) 12/04/18 06:00 Anion Gap 6 MMOL/L (8-16) L 12/04/18 06:00 BUN 9 mg/dL (7-18) 12/04/18 06:00 Creatinine 0.9 mg/dL (0.55-1.3) 12/04/18 06:00 Creat Clearance w eGFR 63.44 (>60) 12/04/18 06:00 Random Glucose 84 mg/dL (74-106) 12/04/18 06:00 Calcium 7.5 mg/dL (8.5-10.1) L 12/04/18 06:00 Total Bilirubin 0.2 mg/dL (0.2-1) 12/04/18 06:00 AST 25 U/L (15-37) 12/04/18 06:00 ALT 17 U/L (13-61) 12/04/18 06:00 Alkaline Phosphatase 75 U/L (45-117) 12/04/18 06:00 Total Protein 7.2 g/dl (6.4-8.2) 12/04/18 06:00 Albumin 2.8 g/dl (3.4-5.0) L 12/04/18 06:00 Current Medications Generic Name Dose Route Start Last Admin Trade Name Freq PRN Reason Stop Dose Admin Abacavir Sulfate 600 mg 12/03/18 19:30 12/04/18 09:30 Ziagen - PO 600 mg DAILY SHERI Administration Acetaminophen 650 mg 12/03/18 19:04 12/04/18 09:27 Tylenol - PO 650 mg Q6H PRN Administration FEVER Acetaminophen 650 mg 12/03/18 19:05 Tylenol - PO Q6H PRN PAIN LEVEL 1-5 Albuterol Sulfate 2 puff 12/03/18 19:01 Ventolin Hfa Inhaler - IH Q4H PRN SHORTNESS OF BREATH Darunavir 800 mg 12/03/18 19:30 12/04/18 09:32 Prezista - PO 800 mg DAILY SHERI Administration Enoxaparin Sodium 40 mg 12/04/18 10:00 12/04/18 09:27 Lovenox - SQ 40 mg DAILY SHERI Administration Fluconazole 200 mg 12/04/18 10:00 12/04/18 09:28 Diflucan - PO 200 mg DAILY SHERI Administration Dextrose/Sodium Chloride 1,000 mls @ 100 mls/hr 12/03/18 17:30 12/03/18 17:50 D5-Ns - IV 100 mls/hr ASDIR SHERI Administration Lactobacillus Acidophilus 1 tab 12/03/18 19:15 12/04/18 09:28 Bacid - PO 1 tab DAILY SHERI Administration Lamivudine 300 mg 12/03/18 19:30 12/04/18 09:30 Epivir - PO 300 mg DAILY SHERI Administration Lidocaine HCl 20 ml 12/03/18 19:00 12/04/18 09:31 Xylocaine 2% Viscous Oral - MM 20 ml Q6H PRN Administration SORE THROAT Nystatin 500,000 units 12/04/18 00:00 12/04/18 12:56 Nystatin Oral Suspension - PO 500,000 units Q6HPO SHERI Administration Ofloxacin 1 drop 12/03/18 19:44 12/04/18 09:29 Ocuflox 0.3% Eye Drops - OU 1 drop QID SHERI Administration Ondansetron HCl 4 mg 12/04/18 12:10 12/04/18 12:22 Zofran - PO 4 mg Q8H PRN Administration NAUSEA Ritonavir 100 mg 12/03/18 19:30 12/04/18 09:31 Norvir - PO 100 mg DAILY SHERI Administration Tenofovir Disoproxil Fumarate 300 mg 12/03/18 19:30 12/04/18 09:32 Viread - PO 300 mg DAILY SHERI Administration Home Medications Medication Instructions Recorded Albuterol Sulfate Inhaler - 1 - 2 inh PO Q4H #1 inhaler 08/17/18 [Ventolin HFA Inhaler -] Darunavir Ethanolate [Prezista -] 800 mg PO DAILY #30 tablet 08/17/18 Ritonavir 100 mg PO DAILY #30 tablet 08/17/18 Tenofovir Disoproxil Fumarate 300 mg PO DAILY #30 tablet 08/17/18 [Viread -] Valacyclovir HCl [Valtrex -] 500 mg PO BID #60 tablet 08/17/18 Abacavir Sulfate [Ziagen -] 600 mg PO DAILY 30 Days #30 tablet 10/04/18 Atovaquone [Mepron Oral Solution -] 1,500 mg PO DAILY@0800 30 Days #60 10/04/18 ud Lactobacillus Acidophilus [Bacid -] 1 tab PO DAILY 28 Days #28 tab 10/04/18 Lamivudine [Epivir -] 300 mg PO DAILY 30 Days #30 tablet 10/04/18 CXR: no acute pathology ASSESSMENT AND PLAN: The patient is a 63 yo female with PMHx of COPD, Anorexia and HIV/AIDS (last CD4 in ) , esophageal candidiasis and GERD who was sent to the ED from the [facility] after she had 4 witnessed episodes of hemoptysis. # HIV/Aids with complications :throat pain and odynophagia due to esophageal candidiasis: continue Nystatin swish and swallow, Diflucan oral ID and GI consult. On HAART therapy as per ID. #Bacterial conjunctivitis: improving on ofloxacin 1 drop ou QID # Hemoptysis: r/o TB , quateferon and TB isolation was ordered. AFB ordered #Neutropenia: neutropenic precautions, neutropenic diet DVT Px: Lovenox 40mg SQ daily
--- NOTE | 2018-12-04 13:22 | CON.GI ---
Consult Consult Specialty:: GI - History of Present Illness History of Present Illness: 63 y/o F with history of AIDS was transferred from the [facility] after 4 episodes of hemoptysis and throat pain. She denies nausea, vomiting, dysphagia and odynophagia. 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 No: Alzheimer's, CVA, Dementia, Migraine, Multiple Sclerosis, Parkinson's, Seizure, Syncope, TIA, Vertigo, Other Pulmonary: Yes: COPD, Pneumonia Gastrointestinal: Yes: Other (Meredith Esophagitis from EGD 06/19/14). No: Ascites, Cancer, Constipation, Crohn's Disease, Diverticulitis, Diverticulosis, Esophageal Varices, Gastritis, GERD, GI Bleed, Hemorrhoids, Hiatal Hernia, Inflamatory Bowel Disease, Irritable Bowel Disease, Pancreatitis, Peptic Ulcer Disease, Ulcerative Colitis ...LMP: 01/04/15 Infectious Disease: Yes: AIDS, HIV, STD's Psych: Yes: Other (anorexia) Additional Medical History: Neuropathy of the feet. anorexia. breast cyst removed. ovarian cyst removed. c/s for twins - Past Surgical History Past Surgical History: Yes: Breast Biopsy, , Tonsillectomy - Alcohol/Substance Use Hx Alcohol Use: No History of Substance Use: reports: None - Smoking History Smoking history: Former smoker Have you smoked in the past 12 months: No Aproximately how many cigarettes per day: 2 If you are a former smoker, when did you quit?: 2 months ago - Social History Usual Living Arrangement: With Child ADL: Independent Occupation: on disability History of Recent Travel: Yes ([place] 07/13 to 07/18) Home Medications - Allergies Allergies/Adverse Reactions: Allergies Allergy/AdvReac Type Severity Reaction Status Date / Time Penicillins Allergy Severe Swelling Verified 12/03/18 14:45 MAYONAISE AdvReac Uncoded 12/03/18 14:36 - Home Medications Home Medications: Ambulatory Orders Albuterol Sulfate Inhaler - [Ventolin HFA Inhaler -] 1 - 2 inh PO Q4H #1 inhaler 08/17/18 Darunavir Ethanolate [Prezista -] 800 mg PO DAILY #30 tablet 08/17/18 Ritonavir 100 mg PO DAILY #30 tablet 08/17/18 Tenofovir Disoproxil Fumarate [Viread -] 300 mg PO DAILY #30 tablet 08/17/18 Valacyclovir HCl [Valtrex -] 500 mg PO BID #60 tablet 08/17/18 Abacavir Sulfate [Ziagen -] 600 mg PO DAILY 30 Days #30 tablet 10/04/18 Atovaquone [Mepron Oral Solution -] 1,500 mg PO DAILY@0800 30 Days #60 ud Lactobacillus Acidophilus [Bacid -] 1 tab PO DAILY 28 Days #28 tab 10/04/18 Lamivudine [Epivir -] 300 mg PO DAILY 30 Days #30 tablet 10/04/18 Family Disease History - Family Disease History Family Disease History: CA: Father ( prostate CA), Other: Mother (alive dementia) Physical Exam-GI Vital Signs: Vital Signs Temperature 98.1 F 12/04/18 06:52 Pulse Rate 78 12/04/18 06:52 Respiratory Rate 20 12/04/18 06:52 Blood Pressure 102/63 12/04/18 06:52 O2 Sat by Pulse Oximetry (%) 100 12/03/18 17:43 Constitutional: Yes: Cachectic Eyes: Yes: Conjunctiva Clear HENT: Yes: Atraumatic Neck: Yes: Supple Cardiovascular: Yes: Regular Rate and Rhythm Respiratory: Yes: CTA Bilaterally ...Auscultate: Yes: Normoactive Bowel Sounds ...Palpate: Yes: Soft. No: Firm/Rigid, Guarding, Hepatomegaly, Mass, Pulsatile Mass, Splenomegaly, Tenderness Labs: CBC, BMP 12/04/18 06:00 INR, PTT INR 0.97 (0.83-1.09) 12/04/18 06:00 Problem List - Problems (1) Throat pain Assessment/Plan: R> consider ENT consult no need for repeat EGD at this time in the absence of dysphagia and odynophagia please recall as necessary Code(s): R07.0 - PAIN IN THROAT
[2018-12-04 13:41] LABS: ANISOCYTOSIS 2+; MACROCYTOSIS 0; PLATELET ESTIMATE NORMAL
--- NOTE | 2018-12-04 16:07 | PN ---
Progress Note (short form) - Note Progress Note: ID consult dictated imp/reccd hemopotysis 2 weeks sore throat started having hemoptysis yesterday no fevers cxray clear advanced aids- not taking ART as outpt afb isolation sputum afb -3 afb naat quantiferon chest ct ent evaluation aids- resume ART has not returned to the [facility] for f/u anorexia ?left breast mass- she received a certified letter from [facility] urging f/u of left breast mass- she has not gone for f/u d/w hospitalist Problem List - Problems (1) Hemoptysis Code(s): R04.2 - HEMOPTYSIS (2) Throat pain Code(s): R07.0 - PAIN IN THROAT (3) AIDS Code(s): B20 - HUMAN IMMUNODEFICIENCY VIRUS [HIV] DISEASE (4) Breast mass seen on mammogram Code(s): N63.0 - UNSPECIFIED LUMP IN UNSPECIFIED BREAST
[2018-12-04] MEDS: DEXTROSE 5%-NORMAL SALINE 1,000 ML IV SCH (18:04)
--- NOTE | 2018-12-04 19:58 | CONS ---
DATE OF CONSULTATION: DATE OF DICTATION: 12/04/2018 CONSULTATION REQUESTED BY: Hospitalist Service HISTORY OF PRESENT ILLNESS: The patient is a 63-year-old woman I know well from the [facility]. She goes there for intermittent followup. I have known her for many, many years. I have not seen her in clinic in several months. She was last hospitalized in September 2018 and did not return for any followup until yesterday, when she came to the clinic and saw the nurse practitioner complaining of two weeks of sore throat and some hemoptysis. She was referred to the ER. She has not been adherent to her HIV medications. Her last T-cells in the clinic were 65. She denies any fevers or chills. She has had some discomfort in her upper neck and throat while eating. She does not describe any mid-sternal discomfort. She did note that yesterday and this morning, when she coughs, she has sputum mixed with bright red blood. She had an episode today as well when she blew her nose and had blood. PAST MEDICAL HISTORY: Notable for AIDS. Most recent T-cell count was 65. She has COPD, hypertension, asthma, anorexia. 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 For this, she has received Neupogen p.r.n. in the past. She has a history of peripheral neuropathy. PAST SURGICAL HISTORY: She has had a breast biopsy, a section and a tonsillectomy. 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 SOCIAL HISTORY: She is a former smoker but still smokes intermittently. She lives independently. She has an aide. No recent travel. FAMILY HISTORY: Noncontributory. ALLERGIES: PENICILLIN (causes swelling). HOME MEDICATIONS: Atovaquone, Prezista, Norvir, Viread, Valtrex and Epzicom. REVIEW OF SYSTEMS: She denies any diarrhea or thrush. She notes that her sore throat is somewhat improved this morning. She denies any fevers or chills. PHYSICAL EXAMINATION: General: She is awake and alert, in no acute distress. She is a thin woman, resting comfortably. Vital Signs: She is afebrile with stable vital signs. Temperature 98.1, pulse 73, blood pressure 91/58, respiratory rate 18, weight 63 kg. HEENT: Normocephalic. Her eyes are anicteric. Neck: Supple. She has no thrush or cervical adenopathy. Lungs: Diminished breath sounds at the bases. Heart: Regular rate and rhythm. Abdomen: Soft, nontender. Extremities: No edema. She has no rash. LABORATORY DATA: Notable for a white count of 1.8, hemoglobin 9.3, platelets 180. BUN 9, creatinine 0.9. LFTs are normal. A urinalysis is negative. She had a throat culture done that is pending. Rapid strep is negative. She had an influenza screen that was negative. Blood cultures are negative at 24 hours. In summary, this is a lady with AIDS who is noncompliant with her HIV regimen with hemoptysis that is fairly acute. Would recommend AFB isolation, sputum AFBs, QuantiFERON and a chest CT. Would ask ENT to evaluate, given the two-week history of chronic throat pain. Regarding her AIDS, she can resume her ART. She has not returned to the [facility] for followup after her last discharge. Of note, she mentioned that she had had a mammogram at and received certified mail from them urging her to follow up as there is a question of a left breast mass. She has not followed up to date. GERDA NEGRO M.D. [id number]
[2018-12-05] MEDS: DEXTROSE 5%-NORMAL SALINE 1,000 ML IV SCH ×3 (01:22→21:38)
[2018-12-05] MEDS: NYSTATIN 500,000 UNITS/5 ML SUSPENSION PO SCH ×5 (06:06→23:21)
[2018-12-05] MEDS ORDERED: PT OWN MED DRAWER 7, Y5N ONE ×3 (08:56→16:42)
[2018-12-05] MEDS: LACTOBACILLUS ACIDOPHILUS 1 TABLET PO SCH (09:04)
[2018-12-05] MEDS: FLUCONAZOLE 100 MG TABLET (UD) PO SCH (09:04)
[2018-12-05] MEDS: TENOFOVIR DISOPROXIL FUMARATE 300 MG TABLET PO SCH (09:05)
[2018-12-05] MEDS: ABACAVIR SULFATE 300 MG TABLET PO SCH (09:06)
[2018-12-05] MEDS: RITONAVIR 100 MG TABLET PO SCH (09:06)
[2018-12-05] MEDS: DARUNAVIR ETHANOLATE 800 MG TAB PO SCH (09:06)
[2018-12-05] MEDS: OFLOXACIN 0.3% OPHTHALMIC SOLUTION 5 ML BOTTLE OU SCH ×4 (09:07→21:39)
[2018-12-05] MEDS: lamiVUDine 150 MG TABLET PO SCH (09:07)
[2018-12-05 09:30] LABS: HEMATOCRIT 30.6 % (32.4-45.2); HEMOGLOBIN 9.6 GM/dL (10.7-15.3); MCH 26.6 pg (25.7-33.7); MCHC 31.2 g/dl (32.0-36.0); MEAN CELL VOLUME 85.2 fl (80-96); MEAN PLT VOLUME 8.4 fl (7.5-11.1); PLATELET COUNT 196 K/MM3 (134-434); RBC 3.59 M/mm3 (3.60-5.2); RDW 14.9 % (11.6-15.6); WHITE BLOOD COUNT 2.1 K/mm3 (4.0-10.0)
[2018-12-05 10:05] LABS: ANION GAP 5 MMOL/L (8-16); BLOOD UREA NITROGEN 11 mg/dL (7-18); CALCIUM 7.7 mg/dL (8.5-10.1); CHLORIDE 110 mmol/L (98-107); CO2 27 mmol/L (21-32); CREATININE 0.9 mg/dL (0.55-1.3); GLUCOSE,RANDOM 87 mg/dL (74-106); POTASSIUM 4.3 mmol/L (3.5-5.1); SODIUM 142 mmol/L (136-145)
[2018-12-05 11:22] VITALS: BMI 19.5
[2018-12-05 13:37] LABS: RETICULOCYTES 0.45 % (0.5-1.5)
[2018-12-05] MEDS: BENZOCAINE/MENTH/CETYLPYRD CL 1 EACH LOZENGE MM PRN (14:40)
--- NOTE | 2018-12-05 15:00 | PN ---
Progress Note (short form) - Note Progress Note: Patient is feeling better with no acute distress. sore throat is improving, c/o nasal dryness. Vital Signs Temperature 98.3 F 12/05/18 06:00 Pulse Rate 86 12/05/18 06:00 Respiratory Rate 20 12/05/18 06:00 Blood Pressure 108/75 12/05/18 06:00 O2 Sat by Pulse Oximetry (%) 100 12/04/18 17:00 GENERAL: A&Ox3, no acute distress EYES: PERRLA, EOMI ENT: Moist mucus membranes, tongue is smooth. NECK: No JVD LUNGS: CTA, no wheezes HEART: RRR, no murmurs ABDOMEN: Soft, nontender, BS present MUSCULOSKELETAL: No CVA Tenderness EXTREMITIES: 2+ pulses, no edema. NEUROLOGICAL: Cranial nerves II-XII intact. CBCD WBC 2.1 K/mm3 (4.0-10.0) L 12/05/18 08:45 RBC 3.59 M/mm3 (3.60-5.2) L 12/05/18 08:45 Hgb 9.6 GM/dL (10.7-15.3) L 12/05/18 08:45 Hct 30.6 % (32.4-45.2) L 12/05/18 08:45 MCV 85.2 fl (80-96) 12/05/18 08:45 MCHC 31.2 g/dl (32.0-36.0) L 12/05/18 08:45 RDW 14.9 % (11.6-15.6) 12/05/18 08:45 Plt Count 196 K/MM3 (134-434) 12/05/18 08:45 MPV 8.4 fl (7.5-11.1) 12/05/18 08:45 CMP Sodium 142 mmol/L (136-145) 12/05/18 08:45 Potassium 4.3 mmol/L (3.5-5.1) 12/05/18 08:45 Chloride 110 mmol/L (98-107) H 12/05/18 08:45 Carbon Dioxide 27 mmol/L (21-32) 12/05/18 08:45 Anion Gap 5 MMOL/L (8-16) L 12/05/18 08:45 BUN 11 mg/dL (7-18) 12/05/18 08:45 Creatinine 0.9 mg/dL (0.55-1.3) 12/05/18 08:45 Creat Clearance w eGFR 63.44 (>60) 12/05/18 08:45 Random Glucose 87 mg/dL (74-106) 12/05/18 08:45 Calcium 7.7 mg/dL (8.5-10.1) L 12/05/18 08:45 Total Bilirubin 0.2 mg/dL (0.2-1) 12/04/18 06:00 AST 25 U/L (15-37) 12/04/18 06:00 ALT 17 U/L (13-61) 12/04/18 06:00 Alkaline Phosphatase 75 U/L (45-117) 12/04/18 06:00 Total Protein 7.2 g/dl (6.4-8.2) 12/04/18 06:00 Albumin 2.8 g/dl (3.4-5.0) L 12/04/18 06:00 Current Medications Generic Name Dose Route Start Last Admin Trade Name Freq PRN Reason Stop Dose Admin Abacavir Sulfate 600 mg 12/03/18 19:30 12/05/18 09:06 Ziagen - PO 600 mg DAILY SHERI Administration Acetaminophen 650 mg 12/03/18 19:04 12/04/18 09:27 Tylenol - PO 650 mg Q6H PRN Administration FEVER Acetaminophen 650 mg 12/03/18 19:05 Tylenol - PO Q6H PRN PAIN LEVEL 1-5 Albuterol Sulfate 2 puff 12/03/18 19:01 Ventolin Hfa Inhaler - IH Q4H PRN SHORTNESS OF BREATH Benzocaine/Menthol 1 each 12/05/18 14:19 12/05/18 14:40 Cepacol Lozenge - MM 1 each Q4H PRN Administration SORE THROAT Darunavir 800 mg 12/03/18 19:30 12/05/18 09:06 Prezista - PO 800 mg DAILY SHERI Administration Fluconazole 200 mg 12/04/18 10:00 12/05/18 09:04 Diflucan - PO 200 mg DAILY SHERI Administration Dextrose/Sodium Chloride 1,000 mls @ 100 mls/hr 12/03/18 17:30 12/05/18 09:21 D5-Ns - IV 100 mls/hr ASDIR SHERI Administration Lactobacillus Acidophilus 1 tab 12/03/18 19:15 12/05/18 09:04 Bacid - PO 1 tab DAILY SHERI Administration Lamivudine 300 mg 12/03/18 19:30 12/05/18 09:07 Epivir - PO 300 mg DAILY SHERI Administration Lidocaine HCl 20 ml 12/03/18 19:00 12/04/18 09:31 Xylocaine 2% Viscous Oral - MM 20 ml Q6H PRN Administration SORE THROAT Nystatin 500,000 units 12/04/18 00:00 12/05/18 13:10 Nystatin Oral Suspension - PO 500,000 units Q6HPO SHERI Administration Ofloxacin 1 drop 12/03/18 19:44 12/05/18 13:55 Ocuflox 0.3% Eye Drops - OU 1 drop QID SHERI Administration Ondansetron HCl 4 mg 12/04/18 12:10 12/04/18 12:22 Zofran - PO 4 mg Q8H PRN Administration NAUSEA Ritonavir 100 mg 12/03/18 19:30 12/05/18 09:06 Norvir - PO 100 mg DAILY SHERI Administration Tenofovir Disoproxil Fumarate 300 mg 12/03/18 19:30 12/05/18 09:05 Viread - PO 300 mg DAILY SHERI Administration Valacyclovir HCl 500 mg 12/05/18 22:00 Valtrex - PO BID SHERI Valacyclovir HCl 1,000 mg 12/05/18 14:58 Valtrex - PO 12/05/18 14:59 ONCE ONE Home Medications Medication Instructions Recorded Albuterol Sulfate Inhaler - 1 - 2 inh PO Q4H #1 inhaler 08/17/18 [Ventolin HFA Inhaler -] Darunavir Ethanolate [Prezista -] 800 mg PO DAILY #30 tablet 08/17/18 Ritonavir 100 mg PO DAILY #30 tablet 08/17/18 Tenofovir Disoproxil Fumarate 300 mg PO DAILY #30 tablet 08/17/18 [Viread -] Valacyclovir HCl [Valtrex -] 500 mg PO BID #60 tablet 08/17/18 Abacavir Sulfate [Ziagen -] 600 mg PO DAILY 30 Days #30 tablet 10/04/18 Atovaquone [Mepron Oral Solution -] 1,500 mg PO DAILY@0800 30 Days #60 10/04/18 ud Lactobacillus Acidophilus [Bacid -] 1 tab PO DAILY 28 Days #28 tab 10/04/18 Lamivudine [Epivir -] 300 mg PO DAILY 30 Days #30 tablet 10/04/18 CXR: no acute pathology Microbiology 12/03/18 14:55 Blood - Peripheral Venous Blood Culture - Preliminary NO GROWTH OBTAINED AFTER 48 HOURS, INCUBATION TO CONTINUE FOR 3 DAYS. 12/03/18 14:55 Blood - Peripheral Venous Blood Culture - Preliminary NO GROWTH OBTAINED AFTER 48 HOURS, INCUBATION TO CONTINUE FOR 3 DAYS. 12/05/18 09:28 Sputum - Expectorated Direct Acid Fast Bacilli Smear - Final 12/04/18 16:00 Sputum - Expectorated Direct Acid Fast Bacilli Smear - Final 12/04/18 12:00 Sputum - Expectorated Gram Stain - Final 12/04/18 12:00 Sputum - Expectorated Sputum Culture - Preliminary Pending Organism 12/04/18 03:35 Throat Throat Culture - Final NO BETA HEMOLYTIC STREPTOCOCCI ISOLATED 12/03/18 17:30 Urine - Urine Clean Catch Urine Culture - Final NO GROWTH OBTAINED 12/04/18 12:00 Urine For Antigen Detection Legionella Antigen - Final 12/04/18 12:00 Urine For Antigen Detection Streptococcus pneumoniae Antigen (M - Final ASSESSMENT AND PLAN: The patient is a 63 yo female with PMHx of COPD, Anorexia and HIV/AIDS (last CD4 in ) , esophageal candidiasis and GERD who was [facility] to the ED from [facility] after she had 4 witnessed episodes of hemoptysis. # Advanced Aids with complications :throat pain and odynophagia IMPROVING due to POSSIBLE esophageal candidiasis: will continue the patient, Nystatin swish and swallow, diflucan oral. Hemoptysis is improving, patient is not sure whether it is from her dried up bloody nose or actually having hemoptysis. Will get ENT to evaluate the patient. Id and GI consult appreciated. on ART therapy as per ID. #Bacterial conjunctivitis: on ofloxacin 1 drop Ou QID # Hemoptysis: improved, patient is on isolation for possible TB, afib isolation , sputum afb x3, afb naat, interferon orderd , follow the result, no chest CT since CXr is negative. #Neutropenia: ANC 1200; mild neutropenia; neutropenic precautions, neutropenic diet Follow up as an outpatient with the [facility]. DVT Px: Lovenox will dc since having hemoptysis Visit type - Emergency Visit Emergency Visit: Yes ED Registration Date: 12/06/18 Care time: The patient presented to the Emergency Department on the above date and was hospitalized for further evaluation of their emergent condition. - New Patient This patient is new to me today: No - Critical Care Critical Care patient: No - Discharge Referral Referred to [facility] Med P.C.: No
--- NOTE | 2018-12-05 15:13 | PN ---
Progress Note (short form) - Note Progress Note: intermittent hemoptysis persists no fevers Vital Signs Period Temp Pulse Resp BP Sys/Inman Pulse Ox Last 24 Hr 98.0 F-98.3 F 74-86 18-20 106-130/67-78 100 cor-rrr lungs clear abd soft,nt ext no edema CBC, BMP 12/05/18 08:45 12/05/18 08:45 Microbiology 12/05/18 09:28 Sputum - Expectorated Direct Acid Fast Bacilli Smear - Final 12/04/18 16:00 Sputum - Expectorated Direct Acid Fast Bacilli Smear - Final 12/04/18 12:00 Sputum - Expectorated Gram Stain - Final 12/04/18 12:00 Sputum - Expectorated Sputum Culture - Preliminary Pending Organism 12/04/18 03:35 Throat Throat Culture - Final NO BETA HEMOLYTIC STREPTOCOCCI ISOLATED 12/03/18 17:30 Urine - Urine Clean Catch Urine Culture - Final NO GROWTH OBTAINED 12/03/18 14:55 Blood - Peripheral Venous Blood Culture - Preliminary NO GROWTH OBTAINED AFTER 24 HOURS, INCUBATION TO CONTINUE FOR 4 DAYS. 12/03/18 14:55 Blood - Peripheral Venous Blood Culture - Preliminary NO GROWTH OBTAINED AFTER 24 HOURS, INCUBATION TO CONTINUE FOR 4 DAYS. 12/04/18 12:00 Urine For Antigen Detection Legionella Antigen - Final 12/04/18 12:00 Urine For Antigen Detection Streptococcus pneumoniae Antigen (M - Final imp/reccd hemopotysis 2 weeks sore throat started having hemoptysis yesterday no fevers cxray clear advanced aids- not taking ART as outpt afb isolation sputum afb -3 afb naat quantiferon will hold chest ct as cxray is clear ent evaluation aids- resume ART has not returned to the [facility] for f/u anorexia ?left breast mass- she received a certified letter from [employer] urging f/u of left breast mass- she has not gone for f/u -plans to f[facility] discharge obtain 3rd sputum afb today Problem List - Problems (1) Hemoptysis Code(s): R04.2 - HEMOPTYSIS (2) Throat pain Code(s): R07.0 - PAIN IN THROAT (3) AIDS Code(s): B20 - HUMAN IMMUNODEFICIENCY VIRUS [HIV] DISEASE (4) Breast mass seen on mammogram Code(s): N63.0 - UNSPECIFIED LUMP IN UNSPECIFIED BREAST
[2018-12-05] MEDS ORDERED: valACYclovir HCL 500 MG TABLET (FP) PO ONE (15:30)
[2018-12-05] MEDS: LIDOCAINE VISCOUS 2% ORAL/TOP 20 ML UNIT-DOSE CUP MM PRN (16:45)
[2018-12-05] MEDS: ACETAMINOPHEN 325 MG TABLET (FP) PO PRN (16:45)
[2018-12-05] MEDS: valACYclovir HCL 500 MG TABLET (FP) PO SCH (21:37)
[2018-12-06 06:09] LABS: SERUM IRON SATURATION 33 % (15-55); TOTAL IRON BINDING CAPACITY 183 ug/dL (250-450); UIBC 123 ug/dL (118-369)
[2018-12-06] MEDS: NYSTATIN 500,000 UNITS/5 ML SUSPENSION PO SCH ×3 (06:16→17:25)
[2018-12-06] MEDS ORDERED: PT OWN MED DRAWER 7, Y5N ONE ×4 (10:14→21:38)
[2018-12-06] MEDS: FLUCONAZOLE 100 MG TABLET (UD) PO SCH (10:16)
[2018-12-06] MEDS: LACTOBACILLUS ACIDOPHILUS 1 TABLET PO SCH (10:16)
[2018-12-06] MEDS: DARUNAVIR ETHANOLATE 800 MG TAB PO SCH (10:16)
[2018-12-06] MEDS: RITONAVIR 100 MG TABLET PO SCH (10:17)
[2018-12-06] MEDS: valACYclovir HCL 500 MG TABLET (FP) PO SCH ×2 (10:19→21:47)
[2018-12-06] MEDS: lamiVUDine 150 MG TABLET PO SCH (10:19)
[2018-12-06] MEDS: ABACAVIR SULFATE 300 MG TABLET PO SCH (10:20)
--- NOTE | 2018-12-06 10:20 | EKG ---
Test Reason : Blood Pressure : / mmHG Vent. Rate : 076 BPM Atrial Rate : 076 BPM P-R Int : 182 ms QRS Dur : 088 ms QT Int : 414 ms P-R-T Axes : 067 070 073 degrees QTc Int : 465 ms NORMAL SINUS RHYTHM LIKELY NORMAL ECG WHEN COMPARED WITH ECG OF 03-DEC-2018 15:07, NO SIGNIFICANT CHANGE WAS FOUND Confirmed by RADHA CHIU MD ([id number]) on 12/06/2018 10:20:41 AM Referred By: Confirmed By:RADHA CHIU MD
[2018-12-06] MEDS: TENOFOVIR DISOPROXIL FUMARATE 300 MG TABLET PO SCH (10:22)
[2018-12-06 10:27] LABS: BASO % 0.5 % (0-2.0); EOS % 0.2 % (0-4.5); HEMATOCRIT 32.6 % (32.4-45.2); HEMOGLOBIN 10.1 GM/dL (10.7-15.3); LYMPH % 30.7 % (8-40); MCH 26.6 pg (25.7-33.7); MCHC 31.1 g/dl (32.0-36.0); MEAN CELL VOLUME 85.5 fl (80-96); MEAN PLT VOLUME 8.3 fl (7.5-11.1); MONO % 11.8 % (3.8-10.2); NEUT % 56.8 % (42.8-82.8); PLATELET COUNT 220 K/MM3 (134-434); RBC 3.81 M/mm3 (3.60-5.2)
[2018-12-06] MEDS: OFLOXACIN 0.3% OPHTHALMIC SOLUTION 5 ML BOTTLE OU SCH ×4 (10:32→21:47)
--- NOTE | 2018-12-06 10:59 | EKG ---
Test Reason : Blood Pressure : / mmHG Vent. Rate : 086 BPM Atrial Rate : 086 BPM P-R Int : 170 ms QRS Dur : 072 ms QT Int : 384 ms P-R-T Axes : 052 061 069 degrees QTc Int : 459 ms NORMAL SINUS RHYTHM NORMAL ECG WHEN COMPARED WITH ECG OF 29-SEP-2018 13:53, QT HAS SHORTENED Confirmed by RADHA CHIU MD ([id number]) on 12/06/2018 10:59:33 AM Referred By: Confirmed By:RADHA CHIU MD
--- NOTE | 2018-12-06 12:55 | PN ---
Physical Exam: SUBJECTIVE: Patient seen and examined at bedside. No acute events overnight. Resting in bed comfortably. OBJECTIVE: Vital Signs Period Temp Pulse Resp BP Sys/Inman Pulse Ox Last 24 Hr 98.1 F-98.8 F 76-96 18-20 109-141/60-73 100-100 GENERAL: NAD HEAD: Normal with no signs of trauma. EYES: Sclera Clear ENT: Ears normal, nares patent, oropharynx clear without exudates, moist mucous membranes. NECK: Trachea midline, full range of motion, supple. LUNGS: CTA b/l HEART: RRR nl S1S2 ABDOMEN: soft NDNT EXTREMITIES: No CCE NEUROLOGICAL: Cranial nerves II through XII grossly intact. PSYCH: Normal mood, normal affect. SKIN: No rashes or lesions appreciated Laboratory Results - last 24 hr 12/04/18 12/05/18 12/05/18 10:30 08:45 08:45 WBC 2.5 L RBC Hgb Hct MCV MCH MCHC RDW Plt Count MPV Absolute Neuts (auto) Absolute Lymphs (auto) 0.7 Neutrophils % Lymphocytes % Monocytes % Eosinophils % Basophils % Nucleated RBC % Lymphocytes 25 Nucleated RBCs TNP Retic Count 0.45 L D Iron 60 TIBC 183 L Iron Saturation 33 Absolute CD3 Count 459 L % CD3+ Lymphocytes 65.5 Absolute CD4 [place] 80 L % CD4+ Lymphocyte 11.4 L CD4/CD8 Ratio 0.23 L % CD8+ Lymphocyte 49.4 H Absolute CD8 Count 346 12/06/18 09:25 WBC 2.0 L RBC 3.81 Hgb 10.1 L Hct 32.6 MCV 85.5 MCH 26.6 MCHC 31.1 L RDW 15.0 Plt Count 220 MPV 8.3 Absolute Neuts (auto) 1.1 L Absolute Lymphs (auto) Neutrophils % 56.8 D Lymphocytes % 30.7 Monocytes % 11.8 H Eosinophils % 0.2 D Basophils % 0.5 Nucleated RBC % 0 Lymphocytes Nucleated RBCs Retic Count Iron TIBC Iron Saturation Absolute CD3 Count % CD3+ Lymphocytes Absolute CD4 [place] % CD4+ Lymphocyte CD4/CD8 Ratio % CD8+ Lymphocyte Absolute CD8 Count Active Medications Generic Name Dose Route Start Last Admin Trade Name Freq PRN Reason Stop Dose Admin Abacavir Sulfate 600 mg 12/03/18 19:30 12/06/18 10:20 Ziagen - PO 600 mg DAILY SHERI Administration Acetaminophen 650 mg 12/03/18 19:04 12/05/18 16:45 Tylenol - PO 650 mg Q6H PRN Administration FEVER Acetaminophen 650 mg 12/03/18 19:05 Tylenol - PO Q6H PRN PAIN LEVEL 1-5 Albuterol Sulfate 2 puff 12/03/18 19:01 Ventolin Hfa Inhaler - IH Q4H PRN SHORTNESS OF BREATH Benzocaine/Menthol 1 each 12/05/18 14:19 12/05/18 14:40 Cepacol Lozenge - MM 1 each Q4H PRN Administration SORE THROAT Darunavir 800 mg 12/03/18 19:30 12/06/18 10:16 Prezista - PO 800 mg DAILY SHERI Administration Fluconazole 200 mg 12/04/18 10:00 12/06/18 10:16 Diflucan - PO 200 mg DAILY SHERI Administration Dextrose/Sodium Chloride 1,000 mls @ 100 mls/hr 12/03/18 17:30 12/05/18 21:38 D5-Ns - IV 100 mls/hr ASDIR SHERI Administration Lactobacillus Acidophilus 1 tab 12/03/18 19:15 12/06/18 10:16 Bacid - PO 1 tab DAILY SHERI Administration Lamivudine 300 mg 12/03/18 19:30 12/06/18 10:19 Epivir - PO 300 mg DAILY SHERI Administration Lidocaine HCl 20 ml 12/03/18 19:00 12/05/18 16:45 Xylocaine 2% Viscous Oral - MM 20 ml Q6H PRN Administration SORE THROAT Nystatin 500,000 units 12/04/18 00:00 12/06/18 06:16 Nystatin Oral Suspension - PO 500,000 units Q6HPO SHERI Administration Ofloxacin 1 drop 12/03/18 19:44 12/06/18 10:32 Ocuflox 0.3% Eye Drops - OU 1 drop QID SHERI Administration Ondansetron HCl 4 mg 12/04/18 12:10 12/04/18 12:22 Zofran - PO 4 mg Q8H PRN Administration NAUSEA Ritonavir 100 mg 12/03/18 19:30 12/06/18 10:17 Norvir - PO 100 mg DAILY SHERI Administration Tenofovir Disoproxil Fumarate 300 mg 12/03/18 19:30 12/06/18 10:22 Viread - PO 300 mg DAILY SHERI Administration Valacyclovir HCl 500 mg 12/05/18 22:00 12/06/18 10:19 Valtrex - PO 500 mg BID SHERI Administration ASSESSMENT/PLAN: The patient is a 63 yo f w/ PMH COPD, Anorexia and HIV/AIDS (last CD4 in ) as well as candidiasis stomatitis as well as esophageal candidiasis and GERD who was sent into the ED from the [facility] after she had 4 witnessed episodes of hemoptysis. #Throat pain and odynophagia 2/2 Esophageal candidiasis -will treat empirically with Nystatin swish and swallow as well as PO diflucan -GI on board Dr Hoyos---> no need for EGD at this juncture. ENT eval recommended - rapid step test negative -Infuenza negative, third sputum afb sent today #Bacterial conjunctivitis -ofloxacin 1 drop OS QID #HIV/AIDS - HAART therapy #Neutropenia -ANC 1.1 -neutropenic precautions #FEN -no fluids indicated -lytes WNL -full liquid diet at the request of the patient #prophy -Lovenox 40mg SQ daily #Dispo -med surg - Visit type - Emergency Visit Emergency Visit: Yes ED Registration Date: 12/06/18 Care time: The patient presented to the Emergency Department on the above date and was hospitalized for further evaluation of their emergent condition. - New Patient This patient is new to me today: Yes Date on this admission: 12/06/18 - Critical Care Critical Care patient: No - Discharge Referral Referred to [facility] Med P.C.: No
[2018-12-06 14:20] LABS: ANISOCYTOSIS 2+; MACROCYTOSIS 0; OVALOCYTE 1+; PLATELET ESTIMATE NORMAL; TEAR DROP CELLS 1+
--- NOTE | 2018-12-06 14:38 | PN ---
Progress Note (short form) - Note Progress Note: intermittent hemoptysis resolved no fevers Vital Signs Period Temp Pulse Resp BP Sys/Inman Pulse Ox Last 24 Hr 98.1 F-98.8 F 76-96 18-20 109-141/60-73 100-100 no thrush cor-rrr lungs clear abd soft,nt ext no edema CBC, BMP 12/06/18 09:25 12/05/18 08:45 Microbiology 12/04/18 12:00 Sputum - Expectorated Gram Stain - Final 12/04/18 12:00 Sputum - Expectorated Sputum Culture - Preliminary Pending Organism Pending Organism#2 12/05/18 09:28 Sputum - Expectorated AFB Smear Concentration - Preliminary 12/05/18 09:28 Sputum - Expectorated Direct Acid Fast Bacilli Smear - Final 12/05/18 09:28 Sputum - Expectorated Mycobacterial Culture - Preliminary 12/04/18 16:00 Sputum - Expectorated AFB Smear Concentration - Preliminary 12/04/18 16:00 Sputum - Expectorated Direct Acid Fast Bacilli Smear - Final 12/04/18 16:00 Sputum - Expectorated Mycobacterial Culture - Preliminary 12/03/18 14:55 Blood - Peripheral Venous Blood Culture - Preliminary NO GROWTH OBTAINED AFTER 48 HOURS, INCUBATION TO CONTINUE FOR 3 DAYS. 12/03/18 14:55 Blood - Peripheral Venous Blood Culture - Preliminary NO GROWTH OBTAINED AFTER 48 HOURS, INCUBATION TO CONTINUE FOR 3 DAYS. 12/04/18 03:35 Throat Throat Culture - Final NO BETA HEMOLYTIC STREPTOCOCCI ISOLATED 12/03/18 17:30 Urine - Urine Clean Catch Urine Culture - Final NO GROWTH OBTAINED 12/04/18 12:00 Urine For Antigen Detection Legionella Antigen - Final 12/04/18 12:00 Urine For Antigen Detection Streptococcus pneumoniae Antigen (M - Final imp/reccd hemopotysis 2 weeks sore throat started having hemoptysis yesterday no fevers cxray clear advanced aids- not taking ART as outpt afb isolation sputum afb -3 afb naat quantiferon will hold chest ct as cxray is clear ent evaluation aids- resume ART has not returned to the [facility] for f/u anorexia ?left breast mass- she received a certified letter from [employer] urging f/u of left breast mass- she has not gone for f/u -plans to f/u with [facility] after discharge third sputum afb sent today awaiting ent evaluation hopefully home in am will call TB lab for results in am Problem List - Problems (1) Hemoptysis Code(s): R04.2 - HEMOPTYSIS (2) Throat pain Code(s): R07.0 - PAIN IN THROAT (3) AIDS Code(s): B20 - HUMAN IMMUNODEFICIENCY VIRUS [HIV] DISEASE (4) Breast mass seen on mammogram Code(s): N63.0 - UNSPECIFIED LUMP IN UNSPECIFIED BREAST
[2018-12-06] MEDS: BENZOCAINE/MENTH/CETYLPYRD CL 1 EACH LOZENGE MM PRN (15:20)
[2018-12-06] MEDS: LIDOCAINE VISCOUS 2% ORAL/TOP 20 ML UNIT-DOSE CUP MM PRN (17:25)
[2018-12-06] MEDS: ACETAMINOPHEN 325 MG TABLET (FP) PO PRN (19:15)
--- NOTE | 2018-12-06 21:09 | PN ---
Teaching Attending Note Name of Resident: Kingston Valadez ATTENDING PHYSICIAN STATEMENT I saw and evaluated the patient. I reviewed the resident's note and discussed the case with the resident. I agree with the resident's findings and plan as documented. SUBJECTIVE: Patient is feeling better, no further hemoptysis , sore throat is improving, no fever or chills. OBJECTIVE: Vital Signs Temperature 98.0 F 12/06/18 17:32 Pulse Rate 82 12/06/18 17:32 Respiratory Rate 18 12/06/18 17:32 Blood Pressure 118/77 12/06/18 17:32 O2 Sat by Pulse Oximetry (%) 100 12/06/18 17:00 GENERAL: A&Ox3, no acute distress EYES: PERRLA, EOMI ENT: Moist mucus membranes, smooth tongue NECK: No JVD LUNGS: CTA, no wheezes HEART: RRR, no murmurs ABDOMEN: Soft, nontender, BS present EXTREMITIES: 2+ pulses, no edema. NEUROLOGICAL: Cranial nerves II-XII intact. CBCD WBC 2.0 K/mm3 (4.0-10.0) L 12/06/18 09:25 RBC 3.81 M/mm3 (3.60-5.2) 12/06/18 09:25 Hgb 10.1 GM/dL (10.7-15.3) L 12/06/18 09:25 Hct 32.6 % (32.4-45.2) 12/06/18 09:25 MCV 85.5 fl (80-96) 12/06/18 09:25 MCHC 31.1 g/dl (32.0-36.0) L 12/06/18 09:25 RDW 15.0 % (11.6-15.6) 12/06/18 09:25 Plt Count 220 K/MM3 (134-434) 12/06/18 09:25 MPV 8.3 fl (7.5-11.1) 12/06/18 09:25 CMP Sodium 142 mmol/L (136-145) 12/05/18 08:45 Potassium 4.3 mmol/L (3.5-5.1) 12/05/18 08:45 Chloride 110 mmol/L (98-107) H 12/05/18 08:45 Carbon Dioxide 27 mmol/L (21-32) 12/05/18 08:45 Anion Gap 5 MMOL/L (8-16) L 12/05/18 08:45 BUN 11 mg/dL (7-18) 12/05/18 08:45 Creatinine 0.9 mg/dL (0.55-1.3) 12/05/18 08:45 Creat Clearance w eGFR 63.44 (>60) 12/05/18 08:45 Random Glucose 87 mg/dL (74-106) 12/05/18 08:45 Calcium 7.7 mg/dL (8.5-10.1) L 12/05/18 08:45 Total Bilirubin 0.2 mg/dL (0.2-1) 12/04/18 06:00 AST 25 U/L (15-37) 12/04/18 06:00 ALT 17 U/L (13-61) 12/04/18 06:00 Alkaline Phosphatase 75 U/L (45-117) 12/04/18 06:00 Total Protein 7.2 g/dl (6.4-8.2) 12/04/18 06:00 Albumin 2.8 g/dl (3.4-5.0) L 12/04/18 06:00 Current Medications Generic Name Dose Route Start Last Admin Trade Name Freq PRN Reason Stop Dose Admin Abacavir Sulfate 600 mg 12/03/18 19:30 12/06/18 10:20 Ziagen - PO 600 mg DAILY SHERI Administration Acetaminophen 650 mg 12/03/18 19:04 12/06/18 19:15 Tylenol - PO 650 mg Q6H PRN Administration FEVER Acetaminophen 650 mg 12/03/18 19:05 Tylenol - PO Q6H PRN PAIN LEVEL 1-5 Albuterol Sulfate 2 puff 12/03/18 19:01 Ventolin Hfa Inhaler - IH Q4H PRN SHORTNESS OF BREATH Benzocaine/Menthol 1 each 12/05/18 14:19 12/06/18 15:20 Cepacol Lozenge - MM 1 each Q4H PRN Administration SORE THROAT Darunavir 800 mg 12/03/18 19:30 12/06/18 10:16 Prezista - PO 800 mg DAILY SHERI Administration Fluconazole 200 mg 12/04/18 10:00 12/06/18 10:16 Diflucan - PO 200 mg DAILY SHERI Administration Dextrose/Sodium Chloride 1,000 mls @ 100 mls/hr 12/03/18 17:30 12/05/18 21:38 D5-Ns - IV 100 mls/hr ASDIR SHERI Administration Lactobacillus Acidophilus 1 tab 12/03/18 19:15 12/06/18 10:16 Bacid - PO 1 tab DAILY SEHRI Administration Lamivudine 300 mg 12/03/18 19:30 12/06/18 10:19 Epivir - PO 300 mg DAILY SHERI Administration Lidocaine HCl 20 ml 12/03/18 19:00 12/06/18 17:25 Xylocaine 2% Viscous Oral - MM 20 ml Q6H PRN Administration SORE THROAT Nystatin 500,000 units 12/04/18 00:00 12/06/18 17:25 Nystatin Oral Suspension - PO 500,000 units Q6HPO SHERI Administration Ofloxacin 1 drop 12/03/18 19:44 12/06/18 17:27 Ocuflox 0.3% Eye Drops - OU 1 drop QID SHERI Administration Ondansetron HCl 4 mg 12/04/18 12:10 12/04/18 12:22 Zofran - PO 4 mg Q8H PRN Administration NAUSEA Ritonavir 100 mg 12/03/18 19:30 12/06/18 10:17 Norvir - PO 100 mg DAILY SHERI Administration Tenofovir Disoproxil Fumarate 300 mg 12/03/18 19:30 12/06/18 10:22 Viread - PO 300 mg DAILY SHERI Administration Valacyclovir HCl 500 mg 12/05/18 22:00 12/06/18 10:19 Valtrex - PO 500 mg BID SHERI Administration Home Medications Medication Instructions Recorded Albuterol Sulfate Inhaler - 1 - 2 inh PO Q4H #1 inhaler 08/17/18 [Ventolin HFA Inhaler -] Darunavir Ethanolate [Prezista -] 800 mg PO DAILY #30 tablet 08/17/18 Ritonavir 100 mg PO DAILY #30 tablet 08/17/18 Tenofovir Disoproxil Fumarate 300 mg PO DAILY #30 tablet 08/17/18 [Viread -] Valacyclovir HCl [Valtrex -] 500 mg PO BID #60 tablet 08/17/18 Abacavir Sulfate [Ziagen -] 600 mg PO DAILY 30 Days #30 tablet 10/04/18 Atovaquone [Mepron Oral Solution -] 1,500 mg PO DAILY@0800 30 Days #60 10/04/18 ud Lactobacillus Acidophilus [Bacid -] 1 tab PO DAILY 28 Days #28 tab 10/04/18 Lamivudine [Epivir -] 300 mg PO DAILY 30 Days #30 tablet 10/04/18 CXR: no acute pathology Microbiology 12/03/18 14:55 Blood - Peripheral Venous Blood Culture - Preliminary NO GROWTH OBTAINED AFTER 48 HOURS, INCUBATION TO CONTINUE FOR 3 DAYS. 12/03/18 14:55 Blood - Peripheral Venous Blood Culture - Preliminary NO GROWTH OBTAINED AFTER 48 HOURS, INCUBATION TO CONTINUE FOR 3 DAYS. 12/05/18 09:28 Sputum - Expectorated Direct Acid Fast Bacilli Smear - Final 12/04/18 16:00 Sputum - Expectorated Direct Acid Fast Bacilli Smear - Final 12/04/18 12:00 Sputum - Expectorated Gram Stain - Final 12/04/18 12:00 Sputum - Expectorated Sputum Culture - Preliminary Pending Organism 12/04/18 03:35 Throat Throat Culture - Final NO BETA HEMOLYTIC STREPTOCOCCI ISOLATED 12/03/18 17:30 Urine - Urine Clean Catch Urine Culture - Final NO GROWTH OBTAINED 12/04/18 12:00 Urine For Antigen Detection Legionella Antigen - Final 12/04/18 12:00 Urine For Antigen Detection Streptococcus pneumoniae Antigen (M - Final Laboratory Tests 11/27/16 11/27/16 11/28/16 12:50 12:50 06:30 WBC 2.0 L D 1.6 L RBC Hgb 9.6 L 8.0 L D Hct 30.3 L 25.2 L D Retic Count Hemoglobin A Hemoglobin A2 Hemoglobin C Hemoglobin S Haptoglobin INR PTT (Actin FS) Fibrinogen Iron TIBC Iron Saturation Erythropoietin Ferritin GGT AST 442 H D ALT 245 H D Alkaline Phosphatase 140 H D LD Total Creatine Kinase Vitamin C Folate Folate Hemolysate Vitamin B12 Serum Folate Serum Copper Absolute CD3 Count Absolute CD4 [place] % CD4+ Lymphocyte CD4/CD8 Ratio % CD3+ Lymphocytes % CD8+ Lymphocyte Absolute CD8 Count Hepatitis A IgM Ab Hep A IgM Ab Confirm Hepatitis A Ab Total Hep Bs Antigen Hep Bs Antibody Hep B Core Total Ab Influenza A (Rapid) Influenza B (Rapid) Group A Strep Rapid TB Test (QFT) Mitogen TB Test (QFT) Antigen TB Test (QFT) Hemochromatosis Results 11/28/16 11/28/16 11/28/16 06:30 06:30 08:10 WBC RBC Hgb Hct Retic Count Hemoglobin A Hemoglobin A2 Hemoglobin C Hemoglobin S Haptoglobin INR PTT (Actin FS) Fibrinogen Iron TIBC Iron Saturation Erythropoietin Ferritin GGT AST 335 H D ALT 188 H D Alkaline Phosphatase 122 H LD Total Creatine Kinase Vitamin C Folate Folate Hemolysate Vitamin B12 Serum Folate Serum Copper Absolute CD3 Count Absolute CD4 [place] % CD4+ Lymphocyte CD4/CD8 Ratio % CD3+ Lymphocytes % CD8+ Lymphocyte Absolute CD8 Count Hepatitis A IgM Ab Negative Hep A IgM Ab Confirm Negative Hepatitis A Ab Total Positive H Hep Bs Antigen Negative Negative Hep Bs Antibody Non reactive Hep B Core Total Ab Negative Influenza A (Rapid) Influenza B (Rapid) Group A Strep Rapid TB Test (QFT) Mitogen TB Test (QFT) Antigen TB Test (QFT) Hemochromatosis Results 11/28/16 11/28/16 11/29/16 08:10 08:10 06:00 WBC 1.6 L* RBC Hgb 7.7 L Hct 24.7 L Retic Count Hemoglobin A Hemoglobin A2 Hemoglobin C Hemoglobin S Haptoglobin INR PTT (Actin FS) Fibrinogen Iron TIBC Iron Saturation Erythropoietin Ferritin GGT AST 330 H ALT 185 H Alkaline Phosphatase 112 LD Total 325 H D Creatine Kinase Vitamin C Folate Folate Hemolysate Vitamin B12 Serum Folate Serum Copper Absolute CD3 Count Absolute CD4 [place] % CD4+ Lymphocyte CD4/CD8 Ratio % CD3+ Lymphocytes % CD8+ Lymphocyte Absolute CD8 Count Hepatitis A IgM Ab Hep A IgM Ab Confirm Hepatitis A Ab Total Hep Bs Antigen Hep Bs Antibody Hep B Core Total Ab Influenza A (Rapid) Influenza B (Rapid) Group A Strep Rapid TB Test (QFT) Mitogen TB Test (QFT) Antigen TB Test (QFT) Hemochromatosis Results 11/29/16 11/30/16 11/30/16 06:00 08:30 08:30 WBC 1.8 L* RBC Hgb 8.1 L Hct 25.6 L Retic Count Hemoglobin A Hemoglobin A2 Hemoglobin C Hemoglobin S Haptoglobin INR PTT (Actin FS) Fibrinogen Iron TIBC Iron Saturation Erythropoietin Ferritin GGT AST 292 H 324 H ALT 172 H 207 H D Alkaline Phosphatase 128 H 167 H D LD Total Creatine Kinase Vitamin C Folate Folate Hemolysate Vitamin B12 Serum Folate Serum Copper Absolute CD3 Count Absolute CD4 [place] % CD4+ Lymphocyte CD4/CD8 Ratio % CD3+ Lymphocytes % CD8+ Lymphocyte Absolute CD8 Count Hepatitis A IgM Ab Hep A IgM Ab Confirm Hepatitis A Ab Total Hep Bs Antigen Hep Bs Antibody Hep B Core Total Ab Influenza A (Rapid) Influenza B (Rapid) Group A Strep Rapid TB Test (QFT) Mitogen TB Test (QFT) Antigen TB Test (QFT) Hemochromatosis Results 12/01/16 12/01/16 12/01/16 06:30 06:30 10:00 WBC 2.1 L RBC Hgb 8.4 L Hct 26.2 L Retic Count Hemoglobin A Hemoglobin A2 Hemoglobin C Hemoglobin S Haptoglobin INR PTT (Actin FS) Fibrinogen Iron TIBC Iron Saturation Erythropoietin Ferritin GGT AST 320 H ALT 224 H Alkaline Phosphatase 162 H LD Total Creatine Kinase Vitamin C Folate Folate Hemolysate Vitamin B12 Serum Folate Serum Copper Absolute CD3 Count 322 L Absolute CD4 [place] 81 L % CD4+ Lymphocyte 16.2 L CD4/CD8 Ratio 0.36 L % CD3+ Lymphocytes % CD8+ Lymphocyte 44.6 H Absolute CD8 Count Hepatitis A IgM Ab Hep A IgM Ab Confirm Hepatitis A Ab Total Hep Bs Antigen Hep Bs Antibody Hep B Core Total Ab Influenza A (Rapid) Influenza B (Rapid) Group A Strep Rapid TB Test (QFT) Mitogen TB Test (QFT) Antigen TB Test (QFT) Hemochromatosis Results 12/02/16 12/02/16 12/02/16 06:30 06:30 06:30 WBC 2.4 L RBC Hgb 8.0 L Hct 25.4 L Retic Count Hemoglobin A Hemoglobin A2 Hemoglobin C Hemoglobin S Haptoglobin INR PTT (Actin FS) Fibrinogen Iron 197 H TIBC 242 L Iron Saturation 81 H Erythropoietin Ferritin GGT AST 301 H ALT 231 H Alkaline Phosphatase 142 H LD Total Creatine Kinase Vitamin C Folate Folate Hemolysate Vitamin B12 Serum Folate Serum Copper Absolute CD3 Count Absolute CD4 [place] % CD4+ Lymphocyte CD4/CD8 Ratio % CD3+ Lymphocytes % CD8+ Lymphocyte Absolute CD8 Count Hepatitis A IgM Ab Hep A IgM Ab Confirm Hepatitis A Ab Total Hep Bs Antigen Hep Bs Antibody Hep B Core Total Ab Influenza A (Rapid) Influenza B (Rapid) Group A Strep Rapid TB Test (QFT) Mitogen TB Test (QFT) Antigen TB Test (QFT) Hemochromatosis Results 12/02/16 12/02/16 12/02/16 06:30 06:30 06:30 WBC RBC Hgb Hct Retic Count 1.51 H D Hemoglobin A Hemoglobin A2 Hemoglobin C Hemoglobin S Haptoglobin INR PTT (Actin FS) Fibrinogen Iron TIBC Iron Saturation Erythropoietin Ferritin 1450.419 H GGT AST ALT Alkaline Phosphatase LD Total Creatine Kinase Vitamin C Folate 1063 Folate Hemolysate 271.0 Vitamin B12 Serum Folate Serum Copper Absolute CD3 Count Absolute CD4 [place] % CD4+ Lymphocyte CD4/CD8 Ratio % CD3+ Lymphocytes % CD8+ Lymphocyte Absolute CD8 Count Hepatitis A IgM Ab Hep A IgM Ab Confirm Hepatitis A Ab Total Hep Bs Antigen Hep Bs Antibody Hep B Core Total Ab Influenza A (Rapid) Influenza B (Rapid) Group A Strep Rapid TB Test (QFT) Mitogen TB Test (QFT) Antigen TB Test (QFT) Hemochromatosis Results 12/02/16 12/02/16 12/03/16 06:30 06:30 06:00 WBC 3.0 L RBC 3.20 L Hgb 8.3 L Hct 26.1 L Retic Count Hemoglobin A 97.5 Hemoglobin A2 2.5 Hemoglobin C 0 Hemoglobin S 0 Haptoglobin 84 INR 0.92 PTT (Actin FS) 31.9 Fibrinogen 249.0 Iron TIBC Iron Saturation Erythropoietin Ferritin GGT AST ALT Alkaline Phosphatase LD Total Creatine Kinase Vitamin C Folate Folate Hemolysate Vitamin B12 Serum Folate Serum Copper Absolute CD3 Count Absolute CD4 [place] % CD4+ Lymphocyte CD4/CD8 Ratio % CD3+ Lymphocytes % CD8+ Lymphocyte Absolute CD8 Count Hepatitis A IgM Ab Hep A IgM Ab Confirm Hepatitis A Ab Total Hep Bs Antigen Hep Bs Antibody Hep B Core Total Ab Influenza A (Rapid) Influenza B (Rapid) Group A Strep Rapid TB Test (QFT) Mitogen TB Test (QFT) Antigen TB Test (QFT) Hemochromatosis Results 12/03/16 12/04/16 12/04/16 06:00 06:30 06:30 WBC RBC Hgb Hct Retic Count Hemoglobin A Hemoglobin A2 Hemoglobin C Hemoglobin S Haptoglobin INR PTT (Actin FS) Fibrinogen Iron TIBC Iron Saturation Erythropoietin Ferritin GGT 265 H AST 293 H 289 H ALT 255 H 260 H Alkaline Phosphatase 139 H 140 H LD Total Creatine Kinase Vitamin C Folate Folate Hemolysate Vitamin B12 Serum Folate Serum Copper Absolute CD3 Count Absolute CD4 [place] % CD4+ Lymphocyte CD4/CD8 Ratio % CD3+ Lymphocytes % CD8+ Lymphocyte Absolute CD8 Count Hepatitis A IgM Ab Hep A IgM Ab Confirm Hepatitis A Ab Total Hep Bs Antigen Hep Bs Antibody Hep B Core Total Ab Influenza A (Rapid) Influenza B (Rapid) Group A Strep Rapid TB Test (QFT) Mitogen TB Test (QFT) Antigen TB Test (QFT) Hemochromatosis Results 12/04/16 12/04/16 12/04/16 06:30 06:30 06:30 WBC RBC Hgb Hct Retic Count Hemoglobin A Hemoglobin A2 Hemoglobin C Hemoglobin S Haptoglobin INR PTT (Actin FS) Fibrinogen Iron TIBC Iron Saturation Erythropoietin Ferritin GGT AST ALT Alkaline Phosphatase LD Total Creatine Kinase 20 L Vitamin C Pending Folate Folate Hemolysate Vitamin B12 Serum Folate Serum Copper Pending Absolute CD3 Count Absolute CD4 [place] % CD4+ Lymphocyte CD4/CD8 Ratio % CD3+ Lymphocytes % CD8+ Lymphocyte Absolute CD8 Count Hepatitis A IgM Ab Hep A IgM Ab Confirm Hepatitis A Ab Total Hep Bs Antigen Hep Bs Antibody Hep B Core Total Ab Influenza A (Rapid) Influenza B (Rapid) Group A Strep Rapid TB Test (QFT) Mitogen TB Test (QFT) Antigen TB Test (QFT) Hemochromatosis Results 12/04/16 12/04/16 12/05/16 06:30 08:00 06:05 WBC RBC Hgb Hct Retic Count Hemoglobin A Hemoglobin A2 Hemoglobin C Hemoglobin S Haptoglobin INR PTT (Actin FS) Fibrinogen Iron TIBC Iron Saturation Erythropoietin 21.5 H Ferritin GGT AST 251 H ALT 240 H Alkaline Phosphatase 145 H LD Total Creatine Kinase Vitamin C Folate Folate Hemolysate Vitamin B12 Serum Folate Serum Copper Absolute CD3 Count Absolute CD4 [place] % CD4+ Lymphocyte CD4/CD8 Ratio % CD3+ Lymphocytes % CD8+ Lymphocyte Absolute CD8 Count Hepatitis A IgM Ab Hep A IgM Ab Confirm Hepatitis A Ab Total Hep Bs Antigen Hep Bs Antibody Hep B Core Total Ab Influenza A (Rapid) Influenza B (Rapid) Group A Strep Rapid TB Test (QFT) Mitogen TB Test (QFT) Antigen TB Test (QFT) Hemochromatosis Results Pending 12/06/16 12/04/18 12/04/18 06:00 02:45 09:50 WBC RBC Hgb Hct Retic Count Hemoglobin A Hemoglobin A2 Hemoglobin C Hemoglobin S Haptoglobin INR PTT (Actin FS) Fibrinogen Iron TIBC Iron Saturation Erythropoietin Ferritin GGT AST 200 H D ALT 209 H Alkaline Phosphatase 145 H LD Total Creatine Kinase Vitamin C Folate Folate Hemolysate Vitamin B12 Serum Folate Serum Copper Absolute CD3 Count Absolute CD4 [place] % CD4+ Lymphocyte CD4/CD8 Ratio % CD3+ Lymphocytes % CD8+ Lymphocyte Absolute CD8 Count Hepatitis A IgM Ab Hep A IgM Ab Confirm Hepatitis A Ab Total Hep Bs Antigen Hep Bs Antibody Hep B Core Total Ab Influenza A (Rapid) Negative Influenza B (Rapid) Negative Group A Strep Rapid Negative TB Test (QFT) Mitogen TB Test (QFT) Antigen TB Test (QFT) Hemochromatosis Results 12/04/18 12/05/18 12/05/18 10:30 08:45 08:45 WBC RBC Hgb Hct Retic Count Hemoglobin A Hemoglobin A2 Hemoglobin C Hemoglobin S Haptoglobin INR PTT (Actin FS) Fibrinogen Iron TIBC Iron Saturation Erythropoietin Ferritin GGT AST ALT Alkaline Phosphatase LD Total Creatine Kinase Vitamin C Folate Folate Hemolysate Vitamin B12 303 Serum Folate 10 Serum Copper Absolute CD3 Count 459 L Absolute CD4 [place] 80 L % CD4+ Lymphocyte 11.4 L CD4/CD8 Ratio % CD3+ Lymphocytes 65.5 % CD8+ Lymphocyte 49.4 H Absolute CD8 Count 346 Hepatitis A IgM Ab Hep A IgM Ab Confirm Hepatitis A Ab Total Hep Bs Antigen Hep Bs Antibody Hep B Core Total Ab Influenza A (Rapid) Influenza B (Rapid) Group A Strep Rapid TB Test (QFT) Mitogen 6.03 TB Test (QFT) Antigen 0.02 TB Test (QFT) Negative Hemochromatosis Results ASSESSMENT AND PLAN: The patient is a 63 yo female with PMHx of COPD, Anorexia and HIV/AIDS (last CD4 in ) , esophageal candidiasis and GERD who was sent to the ED from the [facility] after she had 4 witnessed episodes of hemoptysis. # HIV with complications with CD4 count of 80 ; sore throat and odynophagia improving will continue Nystatin swish and swallow, diflucan oral 200mg po continue Id consult appreciated. waiting for ENT recomendation. continue her HIV meds. as per ID. #Bacterial conjunctivitis: on ofloxacin 1 drop OS QID # Hemoptysis: TB was rulled out , by TB quanteferon and sputum AFB/pcr #Neutropenia: improving DVT Px: Lovenox 40mg SQ daily
[2018-12-07] MEDS: NYSTATIN 500,000 UNITS/5 ML SUSPENSION PO SCH ×4 (05:54→18:32)
[2018-12-07] MEDS ORDERED: PT OWN MED DRAWER 7, Y5N ONE ×2 (06:35→09:50)
[2018-12-07 07:02] LABS: HEMATOCRIT 29.6 % (32.4-45.2); HEMOGLOBIN 9.6 GM/dL (10.7-15.3); MCH 27.8 pg (25.7-33.7); MCHC 32.6 g/dl (32.0-36.0); MEAN CELL VOLUME 85.2 fl (80-96); MEAN PLT VOLUME 8.8 fl (7.5-11.1); PLATELET COUNT 227 K/MM3 (134-434); RBC 3.47 M/mm3 (3.60-5.2); RDW 14.6 % (11.6-15.6); WHITE BLOOD COUNT 2.4 K/mm3 (4.0-10.0)
[2018-12-07 07:43] LABS: ANION GAP 5 MMOL/L (8-16); BLOOD UREA NITROGEN 15 mg/dL (7-18); CALCIUM 8.6 mg/dL (8.5-10.1); CHLORIDE 108 mmol/L (98-107); CO2 26 mmol/L (21-32); CREATININE 0.8 mg/dL (0.55-1.3); GLUCOSE,RANDOM 88 mg/dL (74-106); MAGNESIUM 2.4 mg/dL (1.8-2.4); PHOSPHOROUS 3.7 mg/dL (2.5-4.9); POTASSIUM 4.3 mmol/L (3.5-5.1); SODIUM 140 mmol/L (136-145)
--- NOTE | 2018-12-07 08:52 | PN ---
Teaching Attending Note Name of Resident: Kingston Valadez ATTENDING PHYSICIAN STATEMENT I saw and evaluated the patient. I reviewed the resident's note and discussed the case with the resident. I agree with the resident's findings and plan as documented. SUBJECTIVE: OBJECTIVE: Vital Signs Temperature 97.4 F L 12/07/18 06:00 Pulse Rate 64 12/07/18 06:00 Respiratory Rate 20 12/07/18 06:00 Blood Pressure 97/63 12/07/18 06:00 O2 Sat by Pulse Oximetry (%) 100 12/07/18 01:00 GENERAL: A&Ox3, no acute distress EYES: PERRLA, EOMI ENT: Moist mucus membranes NECK: No JVD LUNGS: CTA, no wheezes HEART: RRR, no murmurs ABDOMEN: Soft, nontender, BS present MUSCULOSKELETAL: No CVA Tenderness EXTREMITIES: 2+ pulses, no edema. NEUROLOGICAL: Cranial nerves II-XII intact. CBCD WBC 2.4 K/mm3 (4.0-10.0) L 12/07/18 06:00 RBC 3.47 M/mm3 (3.60-5.2) L 12/07/18 06:00 Hgb 9.6 GM/dL (10.7-15.3) L 12/07/18 06:00 Hct 29.6 % (32.4-45.2) L 12/07/18 06:00 MCV 85.2 fl (80-96) 12/07/18 06:00 MCHC 32.6 g/dl (32.0-36.0) 12/07/18 06:00 RDW 14.6 % (11.6-15.6) 12/07/18 06:00 Plt Count 227 K/MM3 (134-434) 12/07/18 06:00 MPV 8.8 fl (7.5-11.1) 12/07/18 06:00 CMP Sodium 140 mmol/L (136-145) 12/07/18 06:00 Potassium 4.3 mmol/L (3.5-5.1) 12/07/18 06:00 Chloride 108 mmol/L (98-107) H 12/07/18 06:00 Carbon Dioxide 26 mmol/L (21-32) 12/07/18 06:00 Anion Gap 5 MMOL/L (8-16) L 12/07/18 06:00 BUN 15 mg/dL (7-18) 12/07/18 06:00 Creatinine 0.8 mg/dL (0.55-1.3) 12/07/18 06:00 Creat Clearance w eGFR 72.68 (>60) 12/07/18 06:00 Random Glucose 88 mg/dL (74-106) 12/07/18 06:00 Calcium 8.6 mg/dL (8.5-10.1) 12/07/18 06:00 Total Bilirubin 0.2 mg/dL (0.2-1) 12/04/18 06:00 AST 25 U/L (15-37) 12/04/18 06:00 ALT 17 U/L (13-61) 12/04/18 06:00 Alkaline Phosphatase 75 U/L (45-117) 12/04/18 06:00 Total Protein 7.2 g/dl (6.4-8.2) 12/04/18 06:00 Albumin 2.8 g/dl (3.4-5.0) L 12/04/18 06:00 Current Medications Generic Name Dose Route Start Last Admin Trade Name Freq PRN Reason Stop Dose Admin Abacavir Sulfate 600 mg 12/03/18 19:30 12/06/18 10:20 Ziagen - PO 600 mg DAILY SHERI Administration Acetaminophen 650 mg 12/03/18 19:04 12/06/18 19:15 Tylenol - PO 650 mg Q6H PRN Administration FEVER Acetaminophen 650 mg 12/03/18 19:05 Tylenol - PO Q6H PRN PAIN LEVEL 1-5 Albuterol Sulfate 2 puff 12/03/18 19:01 Ventolin Hfa Inhaler - IH Q4H PRN SHORTNESS OF BREATH Benzocaine/Menthol 1 each 12/05/18 14:19 12/06/18 15:20 Cepacol Lozenge - MM 1 each Q4H PRN Administration SORE THROAT Darunavir 800 mg 12/03/18 19:30 12/06/18 10:16 Prezista - PO 800 mg DAILY SHERI Administration Fluconazole 200 mg 12/04/18 10:00 12/06/18 10:16 Diflucan - PO 200 mg DAILY SHERI Administration Dextrose/Sodium Chloride 1,000 mls @ 100 mls/hr 12/03/18 17:30 12/05/18 21:38 D5-Ns - IV 100 mls/hr ASDIR SHERI Administration Lactobacillus Acidophilus 1 tab 12/03/18 19:15 12/06/18 10:16 Bacid - PO 1 tab DAILY SHERI Administration Lamivudine 300 mg 12/03/18 19:30 12/06/18 10:19 Epivir - PO 300 mg DAILY SHERI Administration Lidocaine HCl 20 ml 12/03/18 19:00 12/06/18 17:25 Xylocaine 2% Viscous Oral - MM 20 ml Q6H PRN Administration SORE THROAT Nystatin 500,000 units 12/04/18 00:00 12/07/18 05:54 Nystatin Oral Suspension - PO 500,000 units Q6HPO SHERI Administration Ofloxacin 1 drop 12/03/18 19:44 12/06/18 21:47 Ocuflox 0.3% Eye Drops - OU 1 drop QID SHERI Administration Ondansetron HCl 4 mg 12/04/18 12:10 12/04/18 12:22 Zofran - PO 4 mg Q8H PRN Administration NAUSEA Ritonavir 100 mg 12/03/18 19:30 12/06/18 10:17 Norvir - PO 100 mg DAILY SHERI Administration Tenofovir Disoproxil Fumarate 300 mg 12/03/18 19:30 12/06/18 10:22 Viread - PO 300 mg DAILY SHERI Administration Valacyclovir HCl 500 mg 12/05/18 22:00 12/06/18 21:47 Valtrex - PO 500 mg BID SHERI Administration Home Medications Medication Instructions Recorded Albuterol Sulfate Inhaler - 1 - 2 inh PO Q4H #1 inhaler 08/17/18 [Ventolin HFA Inhaler -] Darunavir Ethanolate [Prezista -] 800 mg PO DAILY #30 tablet 08/17/18 Ritonavir 100 mg PO DAILY #30 tablet 08/17/18 Tenofovir Disoproxil Fumarate 300 mg PO DAILY #30 tablet 08/17/18 [Viread -] Valacyclovir HCl [Valtrex -] 500 mg PO BID #60 tablet 08/17/18 Abacavir Sulfate [Ziagen -] 600 mg PO DAILY 30 Days #30 tablet 10/04/18 Atovaquone [Mepron Oral Solution -] 1,500 mg PO DAILY@0800 30 Days #60 10/04/18 ud Lactobacillus Acidophilus [Bacid -] 1 tab PO DAILY 28 Days #28 tab 10/04/18 Lamivudine [Epivir -] 300 mg PO DAILY 30 Days #30 tablet 10/04/18 Microbiology 12/05/18 09:28 Sputum - Expectorated AFB Smear Concentration - Preliminary 12/05/18 09:28 Sputum - Expectorated Direct Acid Fast Bacilli Smear - Final 12/05/18 09:28 Sputum - Expectorated Mycobacterial Culture - Preliminary 12/04/18 16:00 Sputum - Expectorated AFB Smear Concentration - Preliminary 12/04/18 16:00 Sputum - Expectorated Direct Acid Fast Bacilli Smear - Final 12/04/18 16:00 Sputum - Expectorated Mycobacterial Culture - Preliminary 12/06/18 09:10 Sputum - Expectorated AFB Smear Concentration - Preliminary 12/06/18 09:10 Sputum - Expectorated Mycobacterial Culture - Preliminary 12/03/18 14:55 Blood - Peripheral Venous Blood Culture - Preliminary NO GROWTH OBTAINED AFTER 72 HOURS, INCUBATION TO CONTINUE FOR 2 DAYS. 12/03/18 14:55 Blood - Peripheral Venous Blood Culture - Preliminary NO GROWTH OBTAINED AFTER 72 HOURS, INCUBATION TO CONTINUE FOR 2 DAYS. 12/04/18 12:00 Sputum - Expectorated Gram Stain - Final 12/04/18 12:00 Sputum - Expectorated Sputum Culture - Preliminary Beta Hem Streptococcus Group G Pending Organism#2 12/04/18 03:35 Throat Throat Culture - Final NO BETA HEMOLYTIC STREPTOCOCCI ISOLATED 12/03/18 17:30 Urine - Urine Clean Catch Urine Culture - Final NO GROWTH OBTAINED 12/04/18 12:00 Urine For Antigen Detection Legionella Antigen - Final 12/04/18 12:00 Urine For Antigen Detection Streptococcus pneumoniae Antigen (M - Final ASSESSMENT AND PLAN: The patient is a 63 yo female with PMHx of COPD, Anorexia and HIV/AIDS (last CD4 in ) , esophageal candidiasis and GERD who was [facility] after she had 4 witnessed episodes of hemoptysis. # Aids with CD4 80 , as per ID to start the patient on Bactrim DS every other day for PCP Px. throat pain and odynophagia improving will continue Nystatin swish and swallow, diflucan oral 200mg x 7 more days , will continue ART regimen continue as per ID. #Bacterial conjunctivitis: on ofloxacin 1 drop Ou QID continue 2 more days # Hemoptysis; no further hemoptysis. TB is ruled out by AFB Patient can be discharged home, follow up wit ID at home clinic, follow with ENT as an outpatient for scop, with GI for possible EGD.
[2018-12-07] MEDS: LACTOBACILLUS ACIDOPHILUS 1 TABLET PO SCH (09:51)
[2018-12-07] MEDS: FLUCONAZOLE 100 MG TABLET (UD) PO SCH (09:51)
[2018-12-07] MEDS: valACYclovir HCL 500 MG TABLET (FP) PO SCH (09:52)
[2018-12-07] MEDS: ABACAVIR SULFATE 300 MG TABLET PO SCH (09:52)
[2018-12-07] MEDS: DARUNAVIR ETHANOLATE 800 MG TAB PO SCH (09:53)
[2018-12-07] MEDS: RITONAVIR 100 MG TABLET PO SCH (09:53)
[2018-12-07] MEDS: TENOFOVIR DISOPROXIL FUMARATE 300 MG TABLET PO SCH (09:53)
[2018-12-07] MEDS: lamiVUDine 150 MG TABLET PO SCH (09:54)
[2018-12-07] MEDS: OFLOXACIN 0.3% OPHTHALMIC SOLUTION 5 ML BOTTLE OU SCH ×3 (09:56→18:32)
[2018-12-07 12:06] LABS: ANISOCYTOSIS 1+; MACROCYTOSIS 0; OVALOCYTE 1+; PLATELET ESTIMATE NORMAL
--- NOTE | 2018-12-07 15:54 | PN ---
Progress Note (short form) - Note Progress Note: no further hemoptysis feels well still with throat discomfort but less Vital Signs Period Temp Pulse Resp BP Sys/Inman Pulse Ox Last 24 Hr 97.4 F-98.8 F 64-82 18-20 94-118/52-77 100-100 cor-rrr lungs clear abd soft,nt ext no edema CBC, BMP 12/07/18 06:00 12/07/18 06:00 Microbiology 12/03/18 14:55 Blood - Peripheral Venous Blood Culture - Preliminary NO GROWTH OBTAINED AFTER 96 HOURS, INCUBATION TO CONTINUE FOR 1 DAYS. 12/03/18 14:55 Blood - Peripheral Venous Blood Culture - Preliminary NO GROWTH OBTAINED AFTER 96 HOURS, INCUBATION TO CONTINUE FOR 1 DAYS. 12/04/18 16:00 Sputum - Expectorated AFB Smear Concentration - Final 12/04/18 16:00 Sputum - Expectorated Direct Acid Fast Bacilli Smear - Final 12/04/18 16:00 Sputum - Expectorated Mycobacterial Culture - Preliminary 12/05/18 09:28 Sputum - Expectorated AFB Smear Concentration - Final 12/05/18 09:28 Sputum - Expectorated Direct Acid Fast Bacilli Smear - Final 12/05/18 09:28 Sputum - Expectorated Mycobacterial Culture - Preliminary 12/04/18 12:00 Sputum - Expectorated Gram Stain - Final 12/04/18 12:00 Sputum - Expectorated Sputum Culture - Preliminary Beta Hem Streptococcus Group G Pending Organism#2 12/06/18 09:10 Sputum - Expectorated AFB Smear Concentration - Preliminary 12/06/18 09:10 Sputum - Expectorated Direct Acid Fast Bacilli Smear - Final 12/06/18 09:10 Sputum - Expectorated Mycobacterial Culture - Preliminary 12/04/18 03:35 Throat Throat Culture - Final NO BETA HEMOLYTIC STREPTOCOCCI ISOLATED 12/03/18 17:30 Urine - Urine Clean Catch Urine Culture - Final NO GROWTH OBTAINED 12/04/18 12:00 Urine For Antigen Detection Legionella Antigen - Final 12/04/18 12:00 Urine For Antigen Detection Streptococcus pneumoniae Antigen (M - Final imp/reccd hemoptysis resolved still with hoarse/sore throat- ent eval pending d/c afb isolation-2 sputum afp and pcr are negative likelhood tb low with clear cxray continue diflucan aids- resume ART has not returned to the [facility] for f/u anorexia ?left breast mass- she received a certified letter from [facility] urging f/u of left breast mass- she has not gone for f/u -plans to f/u with [facility] after discharge Problem List - Problems (1) Hemoptysis Code(s): R04.2 - HEMOPTYSIS (2) Throat pain Code(s): R07.0 - PAIN IN THROAT (3) AIDS Code(s): B20 - HUMAN IMMUNODEFICIENCY VIRUS [HIV] DISEASE (4) Breast mass seen on mammogram Code(s): N63.0 - UNSPECIFIED LUMP IN UNSPECIFIED BREAST
[2018-12-07] MEDS: BENZOCAINE/MENTH/CETYLPYRD CL 1 EACH LOZENGE MM PRN (16:45)
[2018-12-07] MEDS ORDERED: SULFAMETHOXAZOLE/TRIMETHOPRIM 800MG/160MG D.S. TABLET PO ONE (16:45)
[2018-12-07 17:05] VITALS: BP 111/63; PULSE 75; TEMP 98.1
--- NOTE | 2018-12-07 17:14 | DS ---
Physical Exam: SUBJECTIVE: Patient seen and examined at bedside. No acute events overnight. OBJECTIVE: Vital Signs Period Temp Pulse Resp BP Sys/Inman Pulse Ox Last 24 Hr 97.4 F-98.8 F 64-82 18-20 94-118/52-77 100-100 PHYSICAL EXAM GENERAL: No acute distress. Pleasant HEAD: Normal with no signs of trauma. EYES: Sclera Clear ENT: No oral thrush appreciated NECK: Trachea midline, full range of motion, supple. LUNGS: CTAB HEART: RRR nl S1S2 ABDOMEN: soft NDNT EXTREMITIES: No CCE NEUROLOGICAL: Cranial nerves II through XII grossly intact. PSYCH: Normal mood, normal affect. SKIN: No rashes or lesions appreciated LABS Laboratory Results - last 24 hr 12/05/18 12/07/18 12/07/18 08:45 06:00 06:00 WBC 2.4 L RBC 3.47 L Hgb 9.6 L Hct 29.6 L MCV 85.2 MCH 27.8 MCHC 32.6 RDW 14.6 Plt Count 227 MPV 8.8 Neutrophils % (Manual) 43.7 Band Neutrophils % 0.0 Lymphocytes % (Manual) 35.0 D Monocytes % (Manual) 19 H D Eosinophils % (Manual) 0.0 Basophils % (Manual) 0.0 Myelocytes % (Man) 0 Promyelocytes % (Man) 0 Blast Cells % (Manual) 0 D Nucleated RBC % 2 H Metamyelocytes 0 Hypochromia 0 Platelet Estimate Normal Polychromasia 1+ Poikilocytosis 1+ Anisocytosis 1+ Microcytosis 1+ Macrocytosis 0 Ovalocytes 1+ Sodium 140 Potassium 4.3 Chloride 108 H Carbon Dioxide 26 Anion Gap 5 L BUN 15 Creatinine 0.8 Creat Clearance w eGFR 72.68 Random Glucose 88 Calcium 8.6 Phosphorus 3.7 Magnesium 2.4 TB Test (QFT) Nil 0.02 TB Test (QFT) Mitogen 6.03 TB Test (QFT) Antigen 0.02 TB Test (QFT) Negative TB Positive Criteria HOSPITAL COURSE: Date of Admission:12/06/18 The patient is a 63 y/o female with PMHx of COPD, Anorexia and HIV/AIDS (last CD4 in ) with hx of esophageal candidiasis and GERD who was sent to [facility] from the [facility] after she had 4 witnessed episodes of hemoptysis. Ptwas placed on Nystatin swish and swallow as well as diflucan. Pt was also restarted on her HAART therapy as she had been noncompliant. Pt was placed on Epivir, Norvir, Prezista, Viread, an Ziagen. Pt was also noted to have purulent drainage at the medial and lateral canthus of her left eye; pt was subsequently placed on ofloxacin eye OS. Flu swab, rapid step test were both negative. Pt was aso noted to be neutropenic with an ANC of 1200; neutropenic precautions were started. Pt's sputum was tested 3 times for AFB which was negative. Quantiferon was also negative GI evaluated pt who did not recommend an EGD for pt as there was absence of dysphagia and odynophagia. ENT consult was recommended. Pt was DC'ed before ENT arrived (pt was given an ENT referral). Pt was discharged back on her HAART therapy as well as Bactrim DS to be taken every other day in addition to Diflucan once a day for 7 more days. Date of Discharge: 12/07/18 Minutes to complete discharge: 35 Discharge Summary Reason For Visit: SWALLOWING PAINFUL, HIV,DEHYDRATION Current Active Problems AIDS (Acute) Breast mass seen on mammogram (Acute) Hemoptysis (Acute) Odynophagia (Acute) Throat pain (Acute) HIV (human immunodeficiency virus infection) (Chronic) Condition: Improved - Instructions Diet, Activity, Other Instructions: You presented to the hospital due to coughing up blood as well as having a very painful throat. This is likely related to your immune system being low. Please follow up with Dr Ivey this week at the [facility]. It is very important for you to routinely follow up with [facility] so that you may be properly treated for your HIV. Please follow up with the ENT doctor (Ear, Nose, and Throat) this week. A referral has been provided for you in your discharge papers. Please take your HIV medication as prescribed. This is very important so that your immunity stays strong and you are able to fight infections. It is important to take your medications all the time as stopping them can cause resistant strains. 1) Ziagen 600 mg DAILY 2) Prezista 800 mg DAILY 3) Ritonovir 100 mg DAILY 4) Viread 300 mg daily Please take the following medications below as prescribed: Diflucan 200 mg DAILY for 1 week. Bactrim DS every other day to help prevent from a lung infection since your immune system is compromised due to your disease. Please follow up with [facility] for your left Breast mass. Please return to the Emergency Department immediately if you begin to experience chest pain, shortness of breath, nausea/vomiting, fever/chills, or any other abnormal symptoms. Referrals: Jamila Ivey MD [Staff Physician] - 1 Week Alec You MD [Staff Physician] - 1 Week Evans Lopez MD [Staff Physician] - 1 Week Disposition: HOME - Home Medications Comprehensive Discharge Medication List: Ambulatory Orders Albuterol Sulfate Inhaler - [Ventolin HFA Inhaler -] 1 - 2 inh PO Q4H #1 inhaler 08/17/18 Lactobacillus Acidophilus [Bacid -] 1 tab PO DAILY 28 Days #28 tab 10/04/18 Lamivudine [Epivir -] 300 mg PO DAILY 30 Days #30 tablet 10/04/18 Abacavir Sulfate [Ziagen -] 600 mg PO DAILY 30 Days #30 tablet 12/07/18 Benzocaine/Menthol [Cepacol Sore Throat Lozenge] 1 each MM Q6H PRN #20 lozenge 12/07/18 Darunavir Ethanolate [Prezista -] 800 mg PO DAILY #30 tablet 12/07/18 Fluconazole [Diflucan -] 200 mg PO DAILY #7 tablet 12/07/18 Ritonavir 100 mg PO DAILY #30 tablet 12/07/18 Sulfamethoxazole/Trimethoprim [Bactrim Ds -] 1 tab PO Q48H #15 tablet 12/07/18 Tenofovir Disoproxil Fumarate [Viread -] 300 mg PO DAILY #30 tablet 12/07/18 Valacyclovir HCl [Valtrex -] 500 mg PO BID #14 tablet 12/07/18 This patient is new to me today: No Emergency Visit: Yes ED Registration Date: 12/06/18 Care time: The patient presented to the Emergency Department on the above date and was hospitalized for further evaluation of their emergent condition. Critical Care patient: No - Discharge Referral Referred to [facility] Med P.C.: No
== END 2018-12-07 19:27 | disposition home or self-care (01) | DRG 975 ==
LOC: JER 13:27 → JERBED 15:46 → J8W 18:33 → OBSVTOIN 12-06 09:19
PROVIDERS: ADMIT Internal Medicine; ATTEND Internal Medicine
DX: B37.81 Candidal esophagitis (principal); R04.2 Hemoptysis; B20 Human immunodeficiency virus [HIV] disease; Z68.1 Body mass index [BMI] 19.9 or less, adult; R64 Cachexia; J02.9 Acute pharyngitis, unspecified; J44.9 Chronic obstructive pulmonary disease, unspecified; D70.9 Neutropenia, unspecified; H10.89 Other conjunctivitis; R63.0 Anorexia; K21.0 Gastro-esophageal reflux disease with esophagitis; D64.9 Anemia, unspecified; E86.0 Dehydration; N63.0 Unspecified lump in unspecified breast; G62.89 Other specified polyneuropathies; Z87.891 Personal history of nicotine dependence; Z91.14 Patient's other noncompliance with medication regimen; Z88.0 Allergy status to penicillin
CPT/HCPCS: 36415; 71045-TC-FY; 80048; 80053; 81003; 82607; 82728; 82746; 82803; 83540; 83550; 83605; 83735; 84100; 85025; 85027; 85044; 85610; 85730; 86359; 86360; 86480; 87040; 87070; 87086; 87116; 87205; 87206; 87556; 87804; 87880; 87899; 93005; 93010; 99285-25; G0378; J0131; J1644; J7030

== ENCOUNTER 2019-03-30 10:24 | Inpatient (IN) | payer OTHER | END 2019-04-02 17:09 | LOC: JER 10:24 → JERBED 12:28 → J8W 19:38 ==

== ENCOUNTER 2019-07-25 09:38 | Inpatient (IN) | payer OTHER ==
--- NOTE | 2019-07-25 09:46 | PDOC ---
Attending Attestation - Resident Resident Name: EribertoKrystle - ED Attending Attestation I have performed the following: I have examined & evaluated the patient, The case was reviewed & discussed with the resident, I agree w/resident's findings & plan, Exceptions are as noted - HPI HPI: 07/25/19 10:41 64yo female with cough/congestion/sob. Pt sent from the [facility] for evaluation of sob. Pt states she recently was dc from the rehab center after completing physical therapy. States she has been at home and over the weekend had increasing sob. Pt denies fevers, but c/o chills. Pt with conversational dyspnea and sob despite 3 duonebs and continous albuterol. Pt denies cp/abd pain /n/v/d. No dysuria. Pt denies all other complaints. - Physicial Exam PE: 07/25/19 10:42 Gen: aaox3, conversational dyspnea, tachypnea, tachy lungs: coarse bs b/l, diffuse wheezing, tachypnea heart: +s1s2 tachy abd: soft, nt/nd +bs ext: no c/c/e, no edema - Critical Care Time Total Critical Care Time: 60 Critical Care Statement: The care of this patient involved high complexity decision making to prevent further life threatening deterioration of the patient 's condition and/or to evaluate & treat vital organ system(s) failure or risk of failure. - Medical Decision Making 07/25/19 10:43 a/p: 64yo female with increasing sob/wheezing -hx of copd/asthma -pt with diffuse wheezing on exam -will give continuous neb, solumedrol, mag -xray shows early infiltrate to lower lobe -will send cultures, labs, ekg, abx -will monitor and reassess -pt will need admission- from [facility], admits to [facility] 07/25/19 12:21 no elevated wbc trop neg flu neg pt with asthma/copd exacerbation and early infiltrate will admit to [facility]- microblog sent 07/25/19 14:05 resident discussed the case with [facility] who accepts pt to service flu neg Heart Score/ECG Review - ECG Intrepretation Comment:: 07/25/19 10:46 sinus tach at 111, incomplete rbbb, q waves septally - new ekg changes from prior ekg November 2018, no acute st/t wave findings
[2019-07-25 09:53] VITALS: BMI 28.5
[2019-07-25] MEDS ORDERED: SODIUM CHLORIDE 0.9% 1000 ML INFUS.BAG IV ONE (09:56)
[2019-07-25] MEDS ORDERED: methylPREDNISolone NA SUCC 125 MG/2 ML VIAL IVPB ONE (09:56)
[2019-07-25] MEDS ORDERED: MAGNESIUM SULF 50% (8.12 MEQ/2 ML-1 GM VIAL) IVPB ONE (09:57)
--- NOTE | 2019-07-25 10:06 | PDOC ---
History of Present Illness - General Chief Complaint: Shortness of Breath Stated Complaint: Shortness of Breath Time Seen by Provider: 07/25/19 09:46 - History of Present Illness Initial Comments: Uzma Monroe is a 64yo woman with a PMH of HIV (CD4 392, viral load 990), COPD who presents from the [facility] with shortness of breath and wheezing since Thursday and tachycardia to 122 today in clinic. Ms Monroe states that she started to feel very short of breath on Thursday. She has been using her albuterol inhaler every 2 hours without improvement. She also used 4x nebulizer treatments at home that she got from a neighbor, also without improvement. She denies any nasal congestion, rhinorrhea, or fever but does endorse a productive cough for several days. Past History - Past Medical History Allergies/Adverse Reactions: Allergies Allergy/AdvReac Type Severity Reaction Status Date / Time Penicillins Allergy Severe Swelling Verified 07/25/19 09:53 [place] AdvReac Uncoded 07/25/19 09:53 Home Medications: Ambulatory Orders Lactobacillus Acidophilus [Bacid -] 1 tab PO DAILY 28 Days #28 tab 10/04/18 Albuterol Sulfate Inhaler - [Ventolin HFA Inhaler -] 1 - 2 inh PO Q4H PRN #1 inhaler 04/02/19 Abacavir Sulfate/Lamivudine [Abacavir-Lamivudine 600-300 mg] 1 each PO DAILY # 30 tablet 07/07/19 Darunavir Ethanolate [Prezista -] 800 mg PO DAILY #30 tablet 07/07/19 Ritonavir 100 mg PO DAILY #30 tablet 07/07/19 Fluticasone/Salmeterol [Airduo Respiclick 113-14 Mcg] IN BID 07/12/19 Pravastatin Sodium 10 mg PO DAILY 07/12/19 Valacyclovir HCl [Valtrex] 500 mg PO BID 07/12/19 Budesonide/Formeterol Fumarate [SYMBICORT 80/4.5mcg -] 2 inh PO BID #1 cannister 07/21/19 Mirtazapine 15 mg PO HS #30 tablet 07/21/19 Zolpidem Tartrate [Ambien] 5 mg PO HS #30 tablet MDD 1 07/21/19 Anemia: Yes Asthma: Yes Cancer: No Cardiac Disorders: No CVA: No COPD: Yes CHF: No DVT: No Dementia: No Diabetes: No GI Disorders: Yes (GERD, ANOREXIA, LAST EGD 2013) Disorders: No HTN: (low BP) Hypercholesterolemia: No Liver Disease: No Psychiatric Problems: Yes (ANXIETY) Seizures: No - Surgical History Abdominal Surgery: Yes (EXPLORATORY) - Immunization History Immunization Up to Date: Yes - Psycho Social/Smoking Cessation Hx Smoking Status: No Smoking History: Never smoked Have you smoked in the past 12 months: No Number of Cigarettes Smoked Daily: 2 If you are a former smoker, when did you quit?: 2 months ago Cigars Per Day: 0 Information on smoking cessation initiated: No 'Breaking Loose' booklet given: 12/15/17 Hx Alcohol Use: No Drug/Substance Use Hx: No Substance Use Type: None Hx Substance Use Treatment: No Review of Systems - Review of Systems Comments:: General: No fevers, no chills, no weight or appetite change, no malaise HEENT: No changes in vision, no changes in hearing, no congestion, no sore throat CV: No chest pain, no palpitations, no LE edema Pulm: See HPI GI: No nausea or vomiting, no change in bowel habits, no melena : No frequency, no urgency, no dysuria Musc: No back pain, no joint swelling, no recent injury Skin: No rash, no lesions, no erythema Endo: No excessive thirst, no heat/cold intolerance Heme: No unusual bruising or bleeding, no swollen glands Neuro: No syncope, no numbness/tingling, no focal weakness Vasc: No claudication Psych: No recent change in mood, no SI or HI *Physical Exam - Vital Signs Last Vital Signs Temp Pulse Resp BP Pulse Ox 97.6 F 122 H 24 H 125/85 100 07/25/19 09:40 07/25/19 09:40 07/25/19 09:40 07/25/19 09:40 07/25/19 09:40 - Physical Exam Comments: General: In mild distress HEENT: Atraumatic, PERRL, EOMI, MMM, voice normal, no rhinorrhea Cards: Tachycardic, regular, no murmur appreciated Pulm: Diffuse wheezing bilaterally Abd: Soft, nontender, nondistended Ext: Atraumatic. No LE edema. ROM intact. WWP Skin: Normal color, no rashes or lesions Neuro: A&Ox3, CN grossly intact, normal speech, motor/sensory grossly intact and symmetric Psych: Mood appropriate to situation ED Treatment Course - LABORATORY CBC & Chemistry Diagram: 07/25/19 11:15 07/25/19 11:15 Medical Decision Making - Critical Care Time Total Critical Care Time (minutes): 60 Critical Care Statement: The care of this patient involved high complexity decision making to prevent further life threatening deterioration of the patient 's condition and/or to evaluate & treat vital organ system(s) failure or risk of failure. - Medical Decision Making 07/25/19 10:06 Uzma Monroe is a 64yo woman with a PMH of HIV (CD4 392, viral load 990), COPD who presents from the [facility] with shortness of breath and wheezing since Thursday and tachycardia to 122 today in clinic. She reports using her albuterol at home every 2 hours as well as several nebulizer treatments without improvement. - Most likely COPD exacerbation, influenza, less likely pneumonia as she has not had fever. Has HIV but CD4 nearly 400, should not be at risk for opportunistic infections - 4x duonebs given prior to being seen, continued diffuse wheezing though sats are 100% currently on RA - Additional continuous albuterol nebs - CBC, CMP, VBG, coags, CXR, trop, EKG, influenza 07/25/19 11:39 - Difficult IV placement; IV placed under ultrasound-guidance by Dr Campoverde and Labs sent - EKG w/ sinus tach, HR 111, normal MT and QRS, long QTc at 110, incomplete RBBB , no t-wave or ST changes appreciated 07/25/19 12:18 - CBC, CMP, VBG without concerning abnormalities - Trop pending - Flu negative - Plan to admit for additional management given continued wheezing, new EKG changes. Microblog to be sent when trop resulted 07/25/19 12:21 - Trop negative - Microblog sent 07/25/19 13:27 - Sign out given to FRANCESCA Myers. Will admit to telemetry on Dr Cheney's service Discussed with Dr Nasreen Wei PGY2 Discharge - Discharge Information Problems reviewed: Yes Clinical Impression/Diagnosis: COPD exacerbation Condition: Stable - Follow up/Referral - Patient Discharge Instructions - Post Discharge Activity
[2019-07-25] MEDS ORDERED: methylPREDNISolone NA SUCC 125 MG/2 ML VIAL ONE (10:12)
[2019-07-25] MEDS ORDERED: MAGNESIUM 1GM/D5W - 1 GM/100 ML IVPB IVPB ONE (10:13)
[2019-07-25] MEDS ORDERED: ALBUTEROL SO4 0.083% IH SOL 2.5 MG/3 ML VIAL.NEB. NEB ONE (10:27)
[2019-07-25] MEDS: ALBUTEROL SO4 0.083% IH SOL 2.5 MG/3 ML VIAL.NEB. NEB SCH ×4 (10:34→17:58)
[2019-07-25 11:03] LABS: VENOUS PC02 47.4 mmHg (38-52); VENOUS PH 7.34 (7.31-7.41)
[2019-07-25 11:04] LABS: VENOUS PO2 < 49 mmHg (28-48)
[2019-07-25 11:41] LABS: BASO % 0.5 % (0-2.0); EOS % 0.9 % (0-4.5); HEMATOCRIT 34.8 % (32.4-45.2); HEMOGLOBIN 11.4 GM/dL (10.7-15.3); LYMPH % 21.6 % (8-40); MCH 31.7 pg (25.7-33.7); MCHC 32.8 g/dl (32.0-36.0); MEAN CELL VOLUME 96.6 fl (80-96); MEAN PLT VOLUME 7.7 fl (7.5-11.1); MONO % 13.6 % (3.8-10.2); NEUT % 63.4 % (42.8-82.8); PLATELET COUNT 221 K/MM3 (134-434); RDW 14.1 % (11.6-15.6); WHITE BLOOD COUNT 5.8 K/mm3 (4.0-10.0)
[2019-07-25 12:10] LABS: ALBUMIN 3.4 g/dl (3.4-5.0); BILIRUBIN,TOTAL 0.3 mg/dL (0.2-1); BLOOD UREA NITROGEN 9.9 mg/dL (7-18); CALCIUM 8.9 mg/dL (8.5-10.1); CREATININE 1.1 mg/dL (0.55-1.3); MAGNESIUM 2.4 mg/dL (1.8-2.4); N-TERMINAL BNP 59.5 pg/ml (5-125); POTASSIUM 4.4 mmol/L (3.5-5.1); TOT PROT 8.4 g/dl (6.4-8.2)
[2019-07-25 12:35] LABS: MACROCYTOSIS 1+; PLATELET ESTIMATE NORMAL
--- NOTE | 2019-07-25 16:56 | HP ---
CHIEF COMPLAINT: cant breathe, dyspnea on exertion PCP: Dr. Ivey HISTORY OF PRESENT ILLNESS: Patient is a 64 year old female with a significant past medical history of HIV ( follows at the [facility] with Dr. Ivey), anorexia and COPD. Patient presents to the ED today from the [facility] with shortness of breath and wheezing since Thursday and tachycardia to 122 today in clinic. She has not been feeling well for a few days and borrowed her friends inhaler without relief. She also used her albuterol at home every 2 hours and no improvement. She denies any nasal congestion, rhinorrhea, or fever but does endorse a productive cough for several days. She states she is compliant with her HIV medications but was unable to recall the dosing/name of the medications. In the ED she was treated with duonebs x 4, was given levaquin 750mg x 1 dose and she states she felt slightly better so long as she did not ambulate. If she ambulates, the shortness of breath returns. She reports receiving her flu shot on . Patient reports that she was recently at [facility] for apx 3 months for weakness. She reports that she became so anorexic and had to go to rehab as she had poor ambulatory status. She gained apx 110 lbs after being in rehab and was noted to have elevated K levels and was following with nephrology (Dr. Perez) as an outpatient. ER course was notable for: (1) duonebs x 4 (2) chest xray with weak inspiration, increased markings of the bases with early atelectasis or infiltrates. (3) flu negative Recent Travel: none PAST MEDICAL HISTORY: PAST SURGICAL HISTORY: Social History: Smokin cigarettes per day Alcohol: none Drugs: none Allergies Penicillins Allergy (Severe, Verified 07/25/19 09:53) Swelling MAYONAISE Adverse Reaction (Uncoded 07/25/19 09:53) HOME MEDICATIONS: Home Medications Medication Instructions Recorded Lactobacillus Acidophilus [Bacid -] 1 tab PO DAILY 28 Days #28 tab 10/04/18 Albuterol Sulfate Inhaler - 1 - 2 inh PO Q4H PRN #1 inhaler 04/02/19 [Ventolin HFA Inhaler -] Abacavir Sulfate/Lamivudine 1 each PO DAILY #30 tablet 07/07/19 [Abacavir-Lamivudine 600-300 mg] Darunavir Ethanolate [Prezista -] 800 mg PO DAILY #30 tablet 07/07/19 Ritonavir 100 mg PO DAILY #30 tablet 07/07/19 Fluticasone/Salmeterol [Airduo IN BID 07/12/19 Respiclick 113-14 Mcg] Pravastatin Sodium 10 mg PO DAILY 07/12/19 Valacyclovir HCl [Valtrex] 500 mg PO BID 07/12/19 Budesonide/Formeterol Fumarate 2 inh PO BID #1 cannister 07/21/19 [SYMBICORT 80/4.5mcg -] Mirtazapine 15 mg PO HS #30 tablet 07/21/19 Zolpidem Tartrate [Ambien] 5 mg PO HS #30 tablet MDD 1 07/21/19 PHYSICAL EXAMINATION Vital Signs - 24 hr 07/25/19 09:40 Temperature 97.6 F Pulse Rate 122 H Respiratory 24 H Rate Blood Pressure 125/85 O2 Sat by Pulse 100 Oximetry (%) GENERAL: Awake, alert, and fully oriented, mild respiratory distress HEAD: Normal with no signs of trauma. EYES: Pupils equal, round and reactive to light, extraocular movements intact, sclera anicteric, conjunctiva clear. No lid lag. EARS, NOSE, THROAT: Ears normal, nares patent, oropharynx clear without exudates. Moist mucous membranes. NECK: Normal range of motion, supple without lymphadenopathy, JVD, or masses. LUNGS: scattered wheezing bilaterally HEART: Regular rate and rhythm ABDOMEN: Soft, nontender, mildly distended MUSCULOSKELETAL: No CVA tenderness. UPPER EXTREMITIES: No clubbing. No peripheral edema. LOWER EXTREMITIES: No peripheral edema. NEUROLOGICAL: Normal speech. PSYCHIATRIC: Cooperative. Good eye contact. Appropriate mood and affect. SKIN: Warm, dry, normal turgor, no rashes or lesions noted, normal capillary refill. Laboratory Results - last 24 hr 07/25/19 07/25/19 07/25/19 10:58 11:15 11:15 WBC RBC Hgb Hct MCV MCH MCHC RDW Plt Count MPV Absolute Neuts (auto) Neutrophils % Neutrophils % (Manual) Band Neutrophils % Lymphocytes % Lymphocytes % (Manual) Monocytes % Monocytes % (Manual) Eosinophils % Eosinophils % (Manual) Basophils % Basophils % (Manual) Myelocytes % (Man) Promyelocytes % (Man) Blast Cells % (Manual) Nucleated RBC % Metamyelocytes Platelet Estimate Macrocytosis PT with INR Cancelled INR Cancelled PTT (Actin FS) Cancelled VBG pH 7.34 POC VBG pCO2 47.4 POC VBG pO2 < 49 H VBG HCO3 24.9 VBG O2 Sat (Slime) 58.1 L VBG Base Excess -0.6 Sodium Potassium Chloride Carbon Dioxide Anion Gap BUN Creatinine Est GFR (CKD-EPI)AfAm Est GFR (CKD-EPI)NonAf Random Glucose Calcium Magnesium Total Bilirubin AST ALT Alkaline Phosphatase Creatine Kinase 277 H Creatine Kinase Index 0.3 CK-MB (CK-2) 1.0 Troponin I < 0.02 B-Natriuretic Peptide Total Protein Albumin Influenza A (Rapid) Influenza B (Rapid) 07/25/19 07/25/19 07/25/19 11:15 11:15 11:30 WBC 5.8 RBC 3.60 Hgb 11.4 Hct 34.8 MCV 96.6 H MCH 31.7 MCHC 32.8 RDW 14.1 Plt Count 221 D MPV 7.7 Absolute Neuts (auto) 3.6 Neutrophils % 63.4 Neutrophils % (Manual) 58.2 Band Neutrophils % 0.0 Lymphocytes % 21.6 D Lymphocytes % (Manual) 12.3 D Monocytes % 13.6 H Monocytes % (Manual) 10 Eosinophils % 0.9 Eosinophils % (Manual) 2.0 D Basophils % 0.5 Basophils % (Manual) 1.0 D Myelocytes % (Man) 1 D Promyelocytes % (Man) 0 Blast Cells % (Manual) 3 H D Nucleated RBC % 0 Metamyelocytes 0 Platelet Estimate Normal Macrocytosis 1+ PT with INR INR PTT (Actin FS) VBG pH POC VBG pCO2 POC VBG pO2 VBG HCO3 VBG O2 Sat (Slime) VBG Base Excess Sodium 141 Potassium 4.4 Chloride 109 H Carbon Dioxide 25 Anion Gap 8 BUN 9.9 Creatinine 1.1 Est GFR (CKD-EPI)AfAm 61.88 Est GFR (CKD-EPI)NonAf 53.39 Random Glucose 97 Calcium 8.9 Magnesium 2.4 Total Bilirubin 0.3 AST 38 H ALT 34 Alkaline Phosphatase 78 Creatine Kinase Creatine Kinase Index CK-MB (CK-2) Troponin I B-Natriuretic Peptide 59.5 Total Protein 8.4 H Albumin 3.4 Influenza A (Rapid) Negative Influenza B (Rapid) Negative ASSESSMENT/PLAN: Family Medical History Family History: Denies Problem List - Problem (1) Acute exacerbation of COPD with asthma Assessment/Plan: Received multiple duonebs in the ED, magnesium and solumedrol 125mg x 1. still with wheezing and shortness of breath at rest. denies chest pain. will trend troponins EKG w/ sinus tach, HR 111, prolonged qtc and incomplete RBBB monitor on tele for acute shortness of breath for continuous pulse ox monitoring schedule duonebs, place on 2 liters of nasal cannula. send for chest cta, will doppler lower ext. urine toxicology pulmonary consulted Code(s): J44.1 - CHRONIC OBSTRUCTIVE PULMONARY DISEASE W (ACUTE) EXACERBATION; J45.901 - UNSPECIFIED ASTHMA WITH (ACUTE) EXACERBATION (2) COPD exacerbation Assessment/Plan: see above Code(s): J44.1 - CHRONIC OBSTRUCTIVE PULMONARY DISEASE W (ACUTE) EXACERBATION (3) Tachycardia Assessment/Plan: monitor on tele. new rbbb on ekg repeat ekg in a.m. Code(s): R00.0 - TACHYCARDIA, UNSPECIFIED (4) Fatigue Assessment/Plan: physical therapy once breathing more stable. Code(s): R53.83 - OTHER FATIGUE Qualifiers: Fatigue type: unspecified Qualified Code(s): R53.83 - Other fatigue (5) Anorexia nervosa without bulimia Assessment/Plan: dietary consult. patient reports weight gain of 110 lbs in 2 months. she was to follow up with endocrinology as an outpatient. Code(s): F50.00 - ANOREXIA NERVOSA, UNSPECIFIED (6) HIV (human immunodeficiency virus infection) Assessment/Plan: continue home medications ID consulted. viral load 990 on 07/07/19 labs Code(s): Z21 - ASYMPTOMATIC HUMAN IMMUNODEFICIENCY VIRUS INFECTION STATUS Qualifiers: HIV symptom status: symptomatic Qualified Code(s): B20 - Human immunodeficiency virus [HIV] disease (7) Prophylactic measure Assessment/Plan: fen tolerating po monitor electrolytes dietary consult low salt diet full code Code(s): Z29.9 - ENCOUNTER FOR PROPHYLACTIC MEASURES, UNSPECIFIED Visit type - Emergency Visit Emergency Visit: Yes ED Registration Date: 07/25/19 Care time: The patient presented to the Emergency Department on the above date and was hospitalized for further evaluation of their emergent condition. - New Patient This patient is new to me today: Yes Date on this admission: 07/25/19 - Critical Care Critical Care patient: No
[2019-07-25] MEDS: ALBUTEROL SO4 2.5/IPRATROPIUM 0.5 INH SOL 3 ML VIAL.NEB. NEB SCH (20:28)
[2019-07-26] MEDS ORDERED: ACETAMINOPHEN 325 MG TABLET (FP) ONE (00:26)
[2019-07-26] MEDS: BUDESONIDE/FORMETEROL FUMARATE 80/4.5 mcg INHALER IH SCH ×3 (00:56→21:14)
[2019-07-26] MEDS: ACETAMINOPHEN 325 MG TABLET (FP) PO PRN ×2 (00:57→16:04)
[2019-07-26] MEDS ORDERED: methylPREDNISolone NA SUCC 40 MG/1 ML VIAL ONE ×2 (03:15→15:13)
[2019-07-26] MEDS: methylPREDNISolone NA SUCC 40 MG/1 ML VIAL IVPUSH SCH ×4 (03:34→21:13)
[2019-07-26] MEDS ORDERED: ALBUTEROL SO4 2.5/IPRATROPIUM 0.5 INH SOL 3 ML VIAL.NEB. NEB ONE (08:40)
--- NOTE | 2019-07-26 09:05 | PN ---
Progress Note, Physician Chief Complaint: States her breathing is better but still is wheezing History of Present Illness: Patient is a 64 year old female with a significant past medical history of HIV ( follows at the [facility] with Dr. Ivey), anorexia and COPD. Patient presents to the ED today from the [facility] with shortness of breath and wheezing since Thursday and tachycardia to 122 today in clinic. She has not been feeling well for a few days and borrowed her friends inhaler without relief. She also used her albuterol at home every 2 hours and no improvement. She denies any nasal congestion, rhinorrhea, or fever but does endorse a productive cough for several days. She states she is compliant with her HIV medications but was unable to recall the dosing/name of the medications. In the ED she was treated with duonebs x 4, was given levaquin 750mg x 1 dose and she states she felt slightly better so long as she did not ambulate. If she ambulates, the shortness of breath returns. She reports receiving her flu shot on . Patient reports that she was recently at [facility] for apx 3 months for weakness. She reports that she became so anorexic and had to go to rehab as she had poor ambulatory status. She gained apx 110 lbs after being in rehab and was noted to have elevated K levels and was following with nephrology (Dr. Perez) as an outpatient. - Current Medication List Current Medications: Active Medications Abacavir Sulfate (Ziagen -) 600 mg PO DAILY [facility] Acetaminophen (Tylenol -) 650 mg PO Q6H PRN PRN Reason: PAIN LEVEL 1-5 Last Admin: 07/26/19 00:57 Dose: 650 mg Albuterol/Ipratropium (Duoneb -) 1 amp NEB RQID [facility] Last Admin: 07/25/19 20:28 Dose: 1 amp Atorvastatin Calcium (Lipitor -) 10 mg PO HS [facility] Budesonide/Formoterol Fumarate (Symbicort 80/4.5mcg -) 2 puff IH BID [facility] Last Admin: 07/26/19 00:56 Dose: 2 puff Darunavir (Prezista -) 800 mg PO DAILY [facility] Lamivudine (Epivir -) 300 mg PO DAILY [facility] Methylprednisolone Sodium Succinate (Solu-Medrol -) 40 mg IVPUSH Q8H-IV [facility]ERI Last Admin: 07/26/19 03:34 Dose: 40 mg Ritonavir (Norvir -) 100 mg PO DAILY [facility] Zolpidem Tartrate (Ambien -) 5 mg PO HS PRN PRN Reason: INSOMNIA - Objective Vital Signs: Vital Signs Temperature 97.9 F 07/25/19 20:35 Pulse Rate 115 H 07/25/19 20:35 Respiratory Rate 22 H 07/25/19 20:35 Blood Pressure 138/90 07/25/19 20:35 O2 Sat by Pulse Oximetry (%) 97 07/25/19 20:35 Constitutional: Yes: Well Nourished, No Distress, Calm Eyes: Yes: WNL, Conjunctiva Clear HENT: Yes: WNL, Atraumatic, Normocephalic Neck: Yes: WNL, Supple, Trachea Midline Cardiovascular: Yes: WNL, Regular Rate and Rhythm Respiratory: Yes: Regular, CTA Bilaterally, Poor Air Entry, Wheezes (to upper airway scattered BL) ...Rectal Exam: Yes: WNL Genitourinary: Yes: WNL Breast(s): Yes: WNL Musculoskeletal: Yes: WNL Extremities: Yes: WNL Edema: No Peripheral Pulses WNL: Yes Peripheral Pulses: Left Radial: 2+, Right Radial: 2+, Left Doralis Pedis: 2+, Right Dorsalis Pedis: 2+, Left Femoral: 2+, Right Femoral: 2+ Integumentary: Yes: WNL Neurological: Yes: WNL, Alert, Oriented ...Motor Strength: WNL Psychiatric: Yes: WNL Labs: CBC, BMP 07/25/19 11:15 07/25/19 11:15 INR, PTT INR Cancelled 07/25/19 11:15 - ....Imaging Cat Scan: Report Reviewed (CTA: no PE) Ultrasound: Report Reviewed (Dopplers: no DVt) Other: Report Reviewed (TTE:nml LV fx, trace TR) Problem List - Problems (1) HIV (human immunodeficiency virus infection) Assessment/Plan: appreciate Heme consultation continue HIV meds Code(s): B20 - HUMAN IMMUNODEFICIENCY VIRUS [HIV] DISEASE (2) Acute exacerbation of COPD with asthma Assessment/Plan: improved with Inhaled BD and steroids c/w duonebs c/w solumedrol 40mg IV q6h appreciate pulmolary consultation PFTs as outpt Supplemental OS to maintain SPO2 >92 smoking cessation counseling Code(s): J44.1 - CHRONIC OBSTRUCTIVE PULMONARY DISEASE W (ACUTE) EXACERBATION; J45.901 - UNSPECIFIED ASTHMA WITH (ACUTE) EXACERBATION (3) Tachycardia Assessment/Plan: HR 110s TTE without acute findings continue to monitor tele monitoring Code(s): R00.0 - TACHYCARDIA, UNSPECIFIED (4) Fatigue Assessment/Plan: chronic fatique PT requested fall precautions Code(s): R53.83 - OTHER FATIGUE Qualifiers: Fatigue type: unspecified Qualified Code(s): R53.83 - Other fatigue (5) Prophylactic measure Assessment/Plan: FEN IVF regular diet montior electrolytes DVT heparin sq Dispo tele monitoring full code discharge planning Code(s): Z29.9 - ENCOUNTER FOR PROPHYLACTIC MEASURES, UNSPECIFIED (6) Anorexia Assessment/Plan: states she had a 100lb weight gain in last year transition advisor request Code(s): R63.0 - ANOREXIA Visit type - Emergency Visit Emergency Visit: Yes ED Registration Date: 07/25/19 Care time: The patient presented to the Emergency Department on the above date and was hospitalized for further evaluation of their emergent condition. - New Patient This patient is new to me today: Yes Date on this admission: 07/26/19 - Critical Care Critical Care patient: No - Discharge Referral Referred to [facility] No
[2019-07-26] MEDS ORDERED: PATIENT'S OWN MEDICATION (NON-FORMULARY) (Abacavir Sulfate/Lamivudine [Abacavir-Lamivudine PO SCH (10:00)
[2019-07-26] MEDS: ABACAVIR SULFATE 300 MG TABLET PO SCH (10:00)
[2019-07-26] MEDS: DARUNAVIR ETHANOLATE 800 MG TAB PO SCH (10:08)
[2019-07-26] MEDS: lamiVUDine 150 MG TABLET PO SCH (10:08)
[2019-07-26] MEDS: RITONAVIR 100 MG TABLET PO SCH (10:08)
--- NOTE | 2019-07-26 10:44 | EKG ---
Test Reason : Blood Pressure : / mmHG Vent. Rate : 111 BPM Atrial Rate : 111 BPM P-R Int : 164 ms QRS Dur : 110 ms QT Int : 358 ms P-R-T Axes : 056 077 033 degrees QTc Int : 486 ms SINUS TACHYCARDIA INCOMPLETE RIGHT BUNDLE BRANCH BLOCK SEPTAL INFARCT (CITED ON OR BEFORE 25-JUL-2019) ABNORMAL ECG Confirmed by MD HOMAR, KAYLYNN ([id number]) on 07/26/2019 10:43:35 AM Referred By: Confirmed By:KAYLYNN GRAF MD
[2019-07-26 12:55] LABS: BASO % 0.4 % (0-2.0); HEMATOCRIT 34.3 % (32.4-45.2); HEMOGLOBIN 11.1 GM/dL (10.7-15.3); LYMPH % 18.5 % (8-40); MCH 31.4 pg (25.7-33.7); MCHC 32.5 g/dl (32.0-36.0); MEAN CELL VOLUME 96.7 fl (80-96); MEAN PLT VOLUME 7.7 fl (7.5-11.1); MONO % 6.4 % (3.8-10.2); NEUT % 74.7 % (42.8-82.8); PLATELET COUNT 244 K/MM3 (134-434); RBC 3.54 M/mm3 (3.60-5.2); RDW 14.2 % (11.6-15.6); WHITE BLOOD COUNT 11.8 K/mm3 (4.0-10.0)
--- NOTE | 2019-07-26 13:30 | PN ---
Progress Note (short form) - Note Progress Note: PULMONARY CONSULTATION DICTATED 07/26/19 IMP DYSPNEA COPD EXACERBATION HIV H/O ANOREXIA SMOKER PLAN IV STEROIDS INHALED BRONCHODILATORS O2 ABX PFTS OUTPATIENT SMOKING CESSATION COUNSELED Problem List - Problems (1) COPD exacerbation Code(s): J44.1 - CHRONIC OBSTRUCTIVE PULMONARY DISEASE W (ACUTE) EXACERBATION (2) HIV (human immunodeficiency virus infection) Code(s): B20 - HUMAN IMMUNODEFICIENCY VIRUS [HIV] DISEASE (3) Anorexia Code(s): R63.0 - ANOREXIA (4) Weight gain Code(s): R63.5 - ABNORMAL WEIGHT GAIN
[2019-07-26 13:33] LABS: ALBUMIN 3.3 g/dl (3.4-5.0); BILIRUBIN,TOTAL 0.2 mg/dL (0.2-1); BLOOD UREA NITROGEN 13.4 mg/dL (7-18); CREATININE 1.1 mg/dL (0.55-1.3); MAGNESIUM 2.4 mg/dL (1.8-2.4); POTASSIUM 4.3 mmol/L (3.5-5.1); TOT PROT 8.6 g/dl (6.4-8.2)
--- NOTE | 2019-07-26 14:50 | CONS ---
PULMONARY CONSULTATION DATE OF CONSULTATION: 07/26/2019 REFERRING PHYSICIAN: Nurse rachael Sauceda. HISTORY OF PRESENT ILLNESS: The patient is a 64-year-old female with past medical history of COPD, tobacco abuse, currently still smoking 2 cigarettes a day, anorexia, HIV, currently followed at [facility], admitted to [facility] on July 25 with complaint of a 2-day history of increasing shortness of breath, cough, bronchospasm, and tachycardia. Patient states that on Thursday, she started developing shortness of breath and wheezing. She denied any fever. Did have some chills. Has a cough which is nonproductive. Apparently, she used her albuterol at home every 2 hours without improvement. She went to the [facility], yesterday ; at which time, she was advised to go to the emergency room. In the ER, she was treated with DuoNeb x4 and Levaquin. She also underwent a CTA of the chest which revealed no evidence of pulmonary emboli, no evidence of acute infiltrates. Patient denies any recent travel. There is no history of occupational exposure to chemicals or fumes. Of note, as stated before, she has a history of COPD, as well as a history of anorexia and she was treated for approximately 6 months. Recently, she has weight gain and she attributes shortness of breath secondary to excessive weight gain. PAST MEDICAL HISTORY: Again includes HIV, COPD, history of anorexia. SOCIAL HISTORY: No occupational exposures. Positive tobacco use. No IVDA. No history of substance abuse. REVIEW OF SYSTEMS: Positive shortness of breath. Positive cough. Positive wheezing. No chest pain. No palpitations. Positive chills. No fever. Positive weight gain of 80 pounds and no lower extremity edema. CURRENT MEDICATIONS: Include Solu-Medrol of 40 q.8, Symbicort 80-4.5, Tylenol, Ziagen, Prezista, Epivir, Norvir, Ambien, DuoNeb, and Lipitor. PHYSICAL EXAMINATION: General: The patient is a well-developed, well-nourished female, awake, alert, currently in no acute distress. Vital Signs: She is currently afebrile. Her blood pressure is 125/72, respiratory rate is 20, O2 saturation is 95% on room air. HEENT: Exam is normocephalic, atraumatic. Neck: Supple. Heart: Regular S1 and S2. Chest: Scattered bilateral wheezes. Abdomen: Soft. Bowel sounds are positive. Extremities: No cyanosis or edema. LABORATORIES: WBC is 11.8, hemoglobin 11.1, hematocrit 34.3, with a platelet count of 244,000. Venous blood gas: 7.34, PCO2 of 47, a PO2 of less than 49, a bicarbonate of 24, and a saturation of 58. Chemistry: BUN is 9, creatinine 1.1. CK is 277. Protein is 8.4. Hemoglobin A1c is 6.4. Chest CT: No infiltrates and no effusions; bibasilar atelectatic changes. IMPRESSION: 1. Dyspnea, secondary to chronic obstructive pulmonary disease with acute exacerbation. 2. History of human immunodeficiency virus. Currently on retroviral therapy. 3. History of anorexia. Treated for 3 months. Currently with significant weight gain. 4. History of tobacco abuse. PLAN: IV steroids. Inhaled bronchodilators. Supplemental O2. Antibiotic therapy. Outpatient PFTs. Smoking-cessation counseled. JOE BELLA M.D. [id number] MTDD
[2019-07-26] MEDS: ALBUTEROL SO4 2.5/IPRATROPIUM 0.5 INH SOL 3 ML VIAL.NEB. NEB SCH ×3 (15:06→21:20)
--- NOTE | 2019-07-26 15:13 | PN ---
Progress Note (short form) - Note Progress Note: ID consult dictated imp/reccd copd exacerbation bronchitis hiv recent weight gain penicillin allergy continue HIV meds add doxycyline for bronchitis steroids nebs per pulmonary I saw her on -plan was for outpt PFTs
--- NOTE | 2019-07-26 16:22 | CONS ---
INFECTIOUS DISEASE CONSULTATION DATE OF CONSULTATION: DATE OF DICTATION: 07/26/2019 REQUESTED BY: The hospitalist service. HISTORY OF PRESENT ILLNESS: This is a 64-year-old woman with HIV that I follow at the [facility]. She was hospitalized in March from the to the . At that time, she had not been taking her medications. She had severe weight loss, leukopenia, and had T cells of 24. She was sent for rehab to a facility in [facility]. I then saw her next on June 23 when the detention sent her to see me in the clinic. At that time, she had had a significant weight gain of 40 kg during that period. She had initially been on Megace and Ensure which were subsequently stopped. She had developed kalemia, as well. She was on Bactrim for PCP prophylaxis. She saw Cardiology and had a normal EKG. She saw Nephrology, and ID, as well as Pulmonary. She had multiple tests there, including a CT of her chest, abdomen, and pelvis that really was not remarkable. 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 So, when I saw her then, we stopped her Bactrim, after getting T cells back that were over 200. After discharge the following week home, she was referred to Renal who subsequently stopped her hydrochlorothiazide and bicarbonate. I saw her on the in clinic; at which time, she was feeling well. We made plans for her to have outpatient PFTs, as she had some mild dyspnea. We asked her to stay off non-steroidals and were planning to refer her to Pain for chronic back pain. As well, she was going to be seen by Endocrine for her weight gain. She did note that when she was at the SNF, she had been visiting the bakery frequently. Otherwise, she was feeling well. She had been on AirDuo RespiClick at the detention and was running out and was switched to Symbicort, also because the AirDuo RespiClick has a drug interaction with her HIV medications. Over the course of the weekend, she developed a nonproductive cough, wheezing, and shortness of breath that started on Thursday. She used her inhaler. She was not able to use her nebulizer. She used her neighbor's nebulizer, but she did not have any medicine for her machine. She stayed home for the weekend. Yesterday, she presented to the clinic; at which time, she was referred to the emergency room. She denies any fevers, but reports she may have had some chills. Since arrival in the hospital, she was noted to have diffuse wheezing, was given steroids and nebulizers. She had a chest CTA that revealed no evidence of PE, no mediastinal masses or lymphadenopathy, the heart was not enlarged, and she had bibasilar atelectasis. The prior report from the detention had revealed a ground-glass opacity that is not reported on the current study. She had duplex of her legs done, as well, that showed no evidence of DVT. She was given one dose of Levaquin, last night. She received influenza vaccine, as well, last week, when I saw her in clinic. This morning, she reports feeling markedly improved; though, she continues to wheeze. There is no recent travel history. She has no sick contacts. PAST MEDICAL HISTORY: Notable for HIV. She has a history of anorexia and COPD. She has had this recent severe weight gain. 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 She has a remote history of C difficile. ALLERGIES: She is allergic to PENICILLIN, as well. SOCIAL HISTORY: She lives with her children here in [place]. She is currently not working. Regarding her smoking status, she apparently smokes 2 cigarettes a day. MEDICATIONS: Include mirtazapine, Valtrex, pravastatin, Symbicort, Ambien, ritonavir, darunavir, and Epzicom. REVIEW OF SYSTEMS: She denies any nausea, vomiting. Reports feeling improved. PHYSICAL EXAMINATION: Vital Signs: Her temperature is 98, pulse is 114, blood pressure is 114/54, respiratory rate is 21. She is saturating 95% on room air. HEENT: She is normocephalic. Her eyes are anicteric. Neck: Supple. Lungs: Have diffuse wheezing throughout. Heart: Regular rate and rhythm. Abdomen: Soft and nontender. Extremities: Without edema. LABORATORY DATA: White count is 11.8, hemoglobin 11.1, platelets are 244. BUN is 13 and creatinine 1.1 with normal LFTs. Urinalysis is notable for 5 white cells. Her T cells are 392 with a viral load of 990. Influenza screen done in the emergency room is negative. Blood cultures after 24 hours are negative. IMAGING: CAT scan findings are as stated. In summary, this is a 64-year-old woman with COPD exacerbation, possible bronchitis, HIV, recent weight gain, in the setting of PENICILLIN allergy. Would continue her HIV medicines. Will add doxycycline for bronchitis, steroids and nebulizers per Pulmonary with plans for outpatient PFTs and Pulmonary followup as an outpatient. Further recommendations to follow. Inderjit ANTONIO/[id number]
--- NOTE | 2019-07-26 17:14 | ECHO ---
Version: 1 Name: ANIKA ALLEN Exam: Adult Echocardiogram Study Date: 07/26/2019, 11:43 AM Age: 64 Years MMode/2D Measurements & Calculations IVSd: 1.14 cm LVIDs: 2.38 cm LVIDd: 3.4 cm LVPWd: 1.36 cm ACS: 1.83 cm Ao root diam: 3.0 cm LVOT diam: 1.94 cm LA dimension: 3.5 cm Doppler Measurements & Calculations MV E max mukesh: 87.1 cm/sec Med E/e': 5.4 MV A max mukesh: 95.3 cm/sec Med Peak E' Mukesh: 16.0 cm/sec MV E/A: 0.91 Lat E/e': 7.4 Lat Peak E' Mukesh: 11.7 cm/sec MR max P.7 mmHg Ao max P.9 mmHg MOOKIE(I,D): 2.34 cm Ao mean P.8 mmHg LV V1 mean: 98.4 cm/sec Ao V2 max: 172.5 cm/sec LV V1 mean P.3 mmHg Left Ventricle Mild LVH. Normal LV function. EF 58%. Right Ventricle The right ventricle is grossly normal size. The right ventricular systolic function is normal. Atria Normal left and right atrial size and function. Mitral Valve The mitral valve is grossly normal. Tricuspid Valve The tricuspid valve is not well visualized, but is grossly normal. There is trace tricuspid regurgit ation. Aortic Valve The aortic valve is normal in structure and function. Pulmonic Valve The pulmonic valve leaflets are thin and pliable; valve motion is normal. Great Vessels The aortic root is normal size. Pericardium/Pleura There is no pericardial effusion. Summary Statements Mild LVH. Normal LV function. EF 58%. The right ventricle is grossly normal size. The right ventricular systolic function is normal. Normal left and right atrial size and function. The mitral valve is grossly normal. The tricuspid valve is not well visualized, but is grossly normal. There is trace tricuspid regurgitation. The aortic valve is normal in structure and function. The pulmonic valve leaflets are thin and pliable; valve motion is normal. The aortic root is normal size. There is no pericardial effusion. MD Bear Orozco 07/26/2019, 5:13 PM Ordering Physician: Osvaldo Klein Performed By: Cee Rm
[2019-07-26 20:27] LABS: COCAINE, UR NEGATIVE ng/ml (CUTOFF=300); METHADONE, UR NEGATIVE ng/ml (CUTOFF=300); OPIATES, URI NEGATIVE ng/ml (CUTOFF=300); PHENCYCLIDINE,URINE NEGATIVE ng/ml (CUTOFF=25); URINE AMPHETAMINES NEGATIVE ng/ml (CUTOFF=500); URINE BARBITURATES NEGATIVE ng/ml (CUTOFF=200); URINE BENZODIAZEPINES NEGATIVE ng/ml (CUTOFF=200)
[2019-07-26] MEDS ORDERED: PT OWN MED DRAWER 7, Y5N ONE (21:09)
[2019-07-26] MEDS: ATORVASTATIN CA 10 MG TABLET (FP) PO SCH (21:13)
[2019-07-26] MEDS: ZOLPIDEM TARTRATE 5 MG TABLET PO PRN (21:13)
[2019-07-26] MEDS ORDERED: DOXYCYCLINE INJECTION 100 MG in DEXTROSE 5%-WATER - 100 ML IVPB SCH (22:00)
[2019-07-26] MEDS ORDERED: DOXYCYCLINE HYCLATE 100 MG VIAL ONE (22:25)
[2019-07-26] MEDS ORDERED: DEXTROSE 5%-WATER 100 ML IVPB ONE (22:25)
[2019-07-26] MEDS: MIRTAZAPINE 15 MG TABLET (FP) PO SCH (22:33)
[2019-07-26] MEDS: DOXYCYCLINE INJECTION 100 MG in DEXTROSE 5%-WATER 100 ML IVPB SCH (22:33)
[2019-07-27] MEDS: methylPREDNISolone NA SUCC 40 MG/1 ML VIAL IVPUSH SCH ×4 (02:43→21:38)
--- NOTE | 2019-07-27 08:26 | PN ---
Progress Note, Physician Chief Complaint: States her breathing is better but still with expiratory wheezing History of Present Illness: Patient is a 64 year old female with a significant past medical history of HIV ( follows at the [facility] with Dr. Ivey), anorexia and COPD. Patient presents to the ED today from the [facility] with shortness of breath and wheezing since Thursday and tachycardia to 122 today in clinic. She has not been feeling well for a few days and borrowed her friends inhaler without relief. She also used her albuterol at home every 2 hours and no improvement. She denies any nasal congestion, rhinorrhea, or fever but does endorse a productive cough for several days. She states she is compliant with her HIV medications but was unable to recall the dosing/name of the medications. In the ED she was treated with duonebs x 4, was given levaquin 750mg x 1 dose and she states she felt slightly better so long as she did not ambulate. If she ambulates, the shortness of breath returns. She reports receiving her flu shot on . Patient reports that she was recently at [facility] for apx 3 months for weakness. She reports that she became so anorexic and had to go to rehab as she had poor ambulatory status. She gained apx 110 lbs after being in rehab and was noted to have elevated K levels and was following with nephrology (Dr. Perez) as an outpatient. - Current Medication List Current Medications: Active Medications Abacavir Sulfate (Ziagen -) 600 mg PO DAILY [facility] Last Admin: 07/26/19 10:00 Dose: 600 mg Acetaminophen (Tylenol -) 650 mg PO Q6H PRN PRN Reason: PAIN LEVEL 1-5 Last Admin: 07/26/19 16:04 Dose: 650 mg Albuterol/Ipratropium (Duoneb -) 1 amp NEB RQID [facility] Last Admin: 07/26/19 21:20 Dose: 1 amp Atorvastatin Calcium (Lipitor -) 10 mg PO HS [facility] Last Admin: 07/26/19 21:13 Dose: 10 mg Budesonide/Formoterol Fumarate (Symbicort 80/4.5mcg -) 2 puff IH BID [facility] Last Admin: 07/26/19 21:14 Dose: 2 puff Darunavir (Prezista -) 800 mg PO DAILY [facility] Last Admin: 07/26/19 10:08 Dose: 800 mg Doxycycline Hyclate 100 mg/ (Dextrose) 100 mls @ 100 mls/hr IVPB BID [facility] Last Admin: 07/26/19 22:33 Dose: 100 mls/hr Lamivudine (Epivir -) 300 mg PO DAILY [facility] Last Admin: 07/26/19 10:08 Dose: 300 mg Methylprednisolone Sodium Succinate (Solu-Medrol -) 40 mg IVPUSH Q6H-IV [facility] Last Admin: 07/27/19 02:43 Dose: 40 mg Mirtazapine (Remeron -) 15 mg PO HS [facility] Last Admin: 07/26/19 22:33 Dose: 15 mg Ritonavir (Norvir -) 100 mg PO DAILY [facility] Last Admin: 07/26/19 10:08 Dose: 100 mg Zolpidem Tartrate (Ambien -) 5 mg PO HS PRN PRN Reason: INSOMNIA Last Admin: 07/26/19 21:13 Dose: 5 mg - Objective Vital Signs: Vital Signs Temperature 98.0 F 07/27/19 06:00 Pulse Rate 90 07/27/19 06:00 Respiratory Rate 18 07/27/19 06:00 Blood Pressure 133/78 07/27/19 06:00 O2 Sat by Pulse Oximetry (%) 98 07/26/19 21:00 Additional Findings/Remarks: Constitutional: Yes: Well Nourished, No Distress, Calm Eyes: Yes: WNL, Conjunctiva Clear HENT: Yes: WNL, Atraumatic, Normocephalic Neck: Yes: WNL, Supple, Trachea Midline Cardiovascular: Yes: WNL, Regular Rate and Rhythm Respiratory: Yes: Regular, CTA Bilaterally, Poor Air Entry, expiratory wheezes L >R ...Rectal Exam: Yes: WNL Genitourinary: Yes: WNL Breast(s): Yes: WNL Musculoskeletal: Yes: WNL Extremities: Yes: WNL Edema: No Peripheral Pulses WNL: Yes Peripheral Pulses: Left Radial: 2+, Right Radial: 2+, Left Doralis Pedis: 2+, Right Dorsalis Pedis: 2+, Left Femoral: 2+, Right Femoral: 2+ Integumentary: Yes: WNL Neurological: Yes: WNL, Alert, Oriented ...Motor Strength: WNL Psychiatric: Yes: WNL Labs: CBC, BMP 07/26/19 12:20 07/26/19 06:00 INR, PTT INR Cancelled 07/25/19 11:15 - ....Imaging Chest X-ray: Image Reviewed Problem List - Problems (1) HIV (human immunodeficiency virus infection) Assessment/Plan: appreciate Heme consultation continue HIV meds-antivirals Code(s): B20 - HUMAN IMMUNODEFICIENCY VIRUS [HIV] DISEASE (2) Acute exacerbation of COPD with asthma Assessment/Plan: cont to improve with Inhaled BD and steroids c/w duonebs-consider changing to xopenex (mild tachycardia) will speak with Pulm since mediations is restricted c/w solumedrol 40mg IV q6h appreciate pulmolary consultation PFTs as outpt Supplemental OS to maintain SPO2 >92, not needed overnight smoking cessation counseling Code(s): J44.1 - CHRONIC OBSTRUCTIVE PULMONARY DISEASE W (ACUTE) EXACERBATION; J45.901 - UNSPECIFIED ASTHMA WITH (ACUTE) EXACERBATION (3) Tachycardia Assessment/Plan: HR 90's TTE without acute findings continue to monitor tele monitoring Code(s): R00.0 - TACHYCARDIA, UNSPECIFIED (4) Fatigue Assessment/Plan: chronic fatique PT requested fall precautions Code(s): R53.83 - OTHER FATIGUE Qualifiers: Fatigue type: unspecified Qualified Code(s): R53.83 - Other fatigue (5) Prophylactic measure Assessment/Plan: FEN adequate PO intake regular diet monitor electrolytes DVT heparin sq Dispo tele monitoring full code discharge planning Code(s): Z29.9 - ENCOUNTER FOR PROPHYLACTIC MEASURES, UNSPECIFIED (6) Anorexia Assessment/Plan: 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 - New Patient This patient is new to me today: No - Critical Care Critical Care patient: No - Discharge Referral Referred to [facility] No
[2019-07-27] MEDS ORDERED: DOXYCYCLINE HYCLATE 100 MG VIAL ONE ×2 (10:26→21:17)
[2019-07-27] MEDS ORDERED: DEXTROSE 5%-WATER 100 ML IVPB ONE ×2 (10:26→21:18)
[2019-07-27] MEDS ORDERED: PT OWN MED DRAWER 7, Y5N ONE ×3 (10:27→20:00)
[2019-07-27] MEDS: DOXYCYCLINE INJECTION 100 MG in DEXTROSE 5%-WATER 100 ML IVPB SCH ×2 (10:45→21:26)
[2019-07-27] MEDS: BUDESONIDE/FORMETEROL FUMARATE 80/4.5 mcg INHALER IH SCH ×2 (10:50→21:29)
[2019-07-27] MEDS: ACETAMINOPHEN 325 MG TABLET (FP) PO PRN ×2 (11:00→16:40)
[2019-07-27] MEDS: DARUNAVIR ETHANOLATE 800 MG TAB PO SCH (11:26)
[2019-07-27] MEDS: RITONAVIR 100 MG TABLET PO SCH (11:26)
[2019-07-27] MEDS: lamiVUDine 150 MG TABLET PO SCH (11:27)
[2019-07-27 11:55] LABS: BASO % 0.4 % (0-2.0); HEMATOCRIT 31.3 % (32.4-45.2); HEMOGLOBIN 10.1 GM/dL (10.7-15.3); LYMPH % 17.2 % (8-40); MCH 30.7 pg (25.7-33.7); MCHC 32.1 g/dl (32.0-36.0); MEAN CELL VOLUME 95.7 fl (80-96); MEAN PLT VOLUME 7.4 fl (7.5-11.1); MONO % 5.9 % (3.8-10.2); NEUT % 76.5 % (42.8-82.8); PLATELET COUNT 254 K/MM3 (134-434); RBC 3.27 M/mm3 (3.60-5.2); RDW 14.3 % (11.6-15.6); WHITE BLOOD COUNT 12.1 K/mm3 (4.0-10.0)
--- NOTE | 2019-07-27 12:11 | PN ---
Progress Note, Physician History of Present Illness: pulmonary alert,less dyspneic,+ cough - Current Medication List Current Medications: Active Medications Abacavir Sulfate (Ziagen -) 600 mg PO DAILY [facility] Last Admin: 07/26/19 10:00 Dose: 600 mg Acetaminophen (Tylenol -) 650 mg PO Q6H PRN PRN Reason: PAIN LEVEL 1-5 Last Admin: 07/27/19 11:00 Dose: 650 mg Albuterol/Ipratropium (Duoneb -) 1 amp NEB RQID [facility] Last Admin: 07/26/19 21:20 Dose: 1 amp Atorvastatin Calcium (Lipitor -) 10 mg PO HS [facility] Last Admin: 07/26/19 21:13 Dose: 10 mg Budesonide/Formoterol Fumarate (Symbicort 80/4.5mcg -) 2 puff IH BID [facility] Last Admin: 07/27/19 10:50 Dose: 2 puff Darunavir (Prezista -) 800 mg PO DAILY [facility] Last Admin: 07/27/19 11:26 Dose: 800 mg Doxycycline Hyclate 100 mg/ (Dextrose) 100 mls @ 100 mls/hr IVPB BID [facility] Last Admin: 07/27/19 10:45 Dose: 100 mls/hr Lamivudine (Epivir -) 300 mg PO DAILY [facility] Last Admin: 07/27/19 11:27 Dose: 300 mg Methylprednisolone Sodium Succinate (Solu-Medrol -) 40 mg IVPUSH Q6H-IV [facility] Last Admin: 07/27/19 10:44 Dose: 40 mg Mirtazapine (Remeron -) 15 mg PO HS [facility] Last Admin: 07/26/19 22:33 Dose: 15 mg Ritonavir (Norvir -) 100 mg PO DAILY [facility] Last Admin: 07/27/19 11:26 Dose: 100 mg Zolpidem Tartrate (Ambien -) 5 mg PO HS PRN PRN Reason: INSOMNIA Last Admin: 07/26/19 21:13 Dose: 5 mg - Objective Vital Signs: Vital Signs Temperature 97.9 F 07/27/19 11:03 Pulse Rate 90 07/27/19 11:03 Respiratory Rate 18 07/27/19 11:03 Blood Pressure 130/95 07/27/19 11:03 O2 Sat by Pulse Oximetry (%) 98 07/26/19 21:00 Constitutional: Yes: Well Nourished, Calm Eyes: Yes: WNL HENT: Yes: WNL Neck: Yes: WNL Cardiovascular: Yes: Regular Rate and Rhythm, S1, S2 Respiratory: Yes: Wheezes (mitzy wheezes) Gastrointestinal: Yes: Normal Bowel Sounds, Soft Extremities: Yes: WNL Edema: No Labs: CBC, BMP 07/27/19 11:35 INR, PTT INR Cancelled 07/25/19 11:15 Problem List - Problems (1) COPD exacerbation Code(s): J44.1 - CHRONIC OBSTRUCTIVE PULMONARY DISEASE W (ACUTE) EXACERBATION (2) HIV (human immunodeficiency virus infection) Code(s): B20 - HUMAN IMMUNODEFICIENCY VIRUS [HIV] DISEASE (3) Anorexia Code(s): R63.0 - ANOREXIA (4) Weight gain Code(s): R63.5 - ABNORMAL WEIGHT GAIN Assessment/Plan IMP DYSPNEA IMPROVING COPD EXACERBATION IMPROVING HIV H/O ANOREXIA SMOKER PLAN IV STEROIDS SAME DOSE INHALED BRONCHODILATORS O2 ABX PFTS OUTPATIENT SMOKING CESSATION COUNSELED Problem List - Problems (1) COPD exacerbation Code(s): J44.1 - CHRONIC OBSTRUCTIVE PULMONARY DISEASE W (ACUTE) EXACERBATION (2) HIV (human immunodeficiency virus infection) Code(s): B20 - HUMAN IMMUNODEFICIENCY VIRUS [HIV] DISEASE (3) Anorexia Code(s): R63.0 - ANOREXIA (4) Weight gain Code(s): R63.5 - ABNORMAL WEIGHT GAIN
[2019-07-27 12:21] LABS: BILIRUBIN,TOTAL 0.2 mg/dL (0.2-1); BLOOD UREA NITROGEN 19.8 mg/dL (7-18); CALCIUM 8.4 mg/dL (8.5-10.1); CREATININE 1.2 mg/dL (0.55-1.3); MAGNESIUM 2.5 mg/dL (1.8-2.4); TOT PROT 7.5 g/dl (6.4-8.2)
[2019-07-27] MEDS ORDERED: LEVALBUTEROL HCL 0.31 MG/3 ML VIAL.NEB IH SCH (14:00)
[2019-07-27] MEDS: ABACAVIR SULFATE 300 MG TABLET PO SCH (16:33)
[2019-07-27] MEDS: LEVALBUTEROL HCL 0.31 MG/3 ML VIAL.NEB IH SCH ×2 (16:35→20:05)
[2019-07-27] MEDS ORDERED: methylPREDNISolone NA SUCC 125 MG/2 ML VIAL IVPUSH ONE (18:30)
[2019-07-27] MEDS ORDERED: guaiFENesin/D-METHORPHAN HB 10 ML UNIT-DOSE CUPS PO PRN (18:30)
[2019-07-27] MEDS ORDERED: SODIUM CHLORIDE FOR INHALATION 3 ML VIAL.NEB IH PRN (18:31)
[2019-07-27] MEDS: MIRTAZAPINE 15 MG TABLET (FP) PO SCH (21:27)
[2019-07-27] MEDS: ATORVASTATIN CA 10 MG TABLET (FP) PO SCH (21:29)
[2019-07-27] MEDS: ZOLPIDEM TARTRATE 5 MG TABLET PO PRN (21:32)
[2019-07-28] MEDS: methylPREDNISolone NA SUCC 40 MG/1 ML VIAL IVPUSH SCH ×4 (02:23→21:13)
[2019-07-28] MEDS ORDERED: PT OWN MED DRAWER 7, Y5N ONE ×3 (05:34→13:34)
[2019-07-28 07:40] LABS: HEMATOCRIT 30.8 % (32.4-45.2); HEMOGLOBIN 10.1 GM/dL (10.7-15.3); LYMPH % 14.4 % (8-40); MCH 31.3 pg (25.7-33.7); MCHC 32.8 g/dl (32.0-36.0); MEAN CELL VOLUME 95.7 fl (80-96); MEAN PLT VOLUME 7.5 fl (7.5-11.1); NEUT % 78.8 % (42.8-82.8); PLATELET COUNT 246 K/MM3 (134-434); RBC 3.22 M/mm3 (3.60-5.2); WHITE BLOOD COUNT 12.1 K/mm3 (4.0-10.0)
[2019-07-28 07:41] LABS: BASO % 0.3 % (0-2.0); MONO % 6.5 % (3.8-10.2)
[2019-07-28] MEDS: LEVALBUTEROL HCL 0.31 MG/3 ML VIAL.NEB IH SCH ×3 (08:00→20:26)
[2019-07-28 08:33] LABS: ALBUMIN 2.8 g/dl (3.4-5.0); BILIRUBIN,TOTAL 1.1 mg/dL (0.2-1); BLOOD UREA NITROGEN 22.3 mg/dL (7-18); CALCIUM 8.3 mg/dL (8.5-10.1); CREATININE 1.1 mg/dL (0.55-1.3); MAGNESIUM 2.2 mg/dL (1.8-2.4); POTASSIUM 3.9 mmol/L (3.5-5.1); TOT PROT 7.2 g/dl (6.4-8.2)
[2019-07-28] MEDS ORDERED: DEXTROSE 5%-WATER 100 ML IVPB ONE ×2 (09:00→21:09)
[2019-07-28] MEDS ORDERED: DOXYCYCLINE HYCLATE 100 MG VIAL ONE ×2 (09:00→21:09)
[2019-07-28 09:02] LABS: ANISOCYTOSIS 0; MACROCYTOSIS 0; PLATELET ESTIMATE NORMAL
[2019-07-28] MEDS: ABACAVIR SULFATE 300 MG TABLET PO SCH (09:13)
[2019-07-28] MEDS: DARUNAVIR ETHANOLATE 800 MG TAB PO SCH (09:13)
[2019-07-28] MEDS: RITONAVIR 100 MG TABLET PO SCH (09:13)
[2019-07-28] MEDS: BUDESONIDE/FORMETEROL FUMARATE 80/4.5 mcg INHALER IH SCH ×2 (09:14→21:14)
[2019-07-28] MEDS: DOXYCYCLINE INJECTION 100 MG in DEXTROSE 5%-WATER 100 ML IVPB SCH ×2 (09:14→21:13)
--- NOTE | 2019-07-28 09:16 | PN ---
Physical Exam: SUBJECTIVE: Patient seen and examined at the bedside. still short of breath at rest with conversational dyspnea. on 2 liters. feels weak. OBJECTIVE: +conversational dyspnea, scattered wheezing, on 2 liters of nc. still feels weak and not improved states she was having shortness of breath even 1 month prior to admission negative for PE repeat trop Patient is a 64 year old female with a significant past medical history of HIV ( follows at the [facility] with Dr. Ivey), anorexia and COPD. Patient presents to the ED today from the [facility] with shortness of breath and wheezing since Thursday and tachycardia to 122 today in clinic. She has not been feeling well for a few days and borrowed her friends inhaler without relief. She also used her albuterol at home every 2 hours and no improvement. She denies any nasal congestion, rhinorrhea, or fever but does endorse a productive cough for several days. She states she is compliant with her HIV medications but was unable to recall the dosing/name of the medications. In the ED she was treated with duonebs x 4, was given levaquin 750mg x 1 dose and she states she felt slightly better so long as she did not ambulate. If she ambulates, the shortness of breath returns. She reports receiving her flu shot on . Patient reports that she was recently at [facility] for apx 3 months for weakness. She reports that she became so anorexic and had to go to rehab as she had poor ambulatory status. She gained apx 110 lbs after being in rehab and was noted to have elevated K levels and was following with nephrology (Dr. Perez) as an outpatient. Vital Signs Period Temp Pulse Resp BP Sys/Inman Pulse Ox Last 24 Hr 97.5 F-98.4 F 90-116 18-19 127-154/86-97 98-98 GENERAL: The patient is awake, alert, and fully oriented, in mild respiratory distress. HEAD: Normal with no signs of trauma. EYES: PERRL, extraocular movements intact, sclera anicteric, conjunctiva clear. No ptosis. ENT: Ears normal, nares patent, oropharynx clear without exudates, moist mucous membranes. NECK: Trachea midline, full range of motion, supple. LUNGS: scattered wheezing, diminished at bases. bibasalar atelectasis on imaging. will order incentive spirometer HEART: tachycardia. LBBB on ekg, episosdes of vtach on monitor. will consult cardiology ABDOMEN: Soft, nontender, nondistended, normoactive bowel sounds, no guarding, no rebound, no hepatosplenomegaly, no masses. EXTREMITIES: no edema. NEUROLOGICAL: Normal speech, gait not observed. PSYCH: Normal mood, normal affect. SKIN: Warm, dry, normal turgor, no rashes or lesions noted Laboratory Results - last 24 hr 07/27/19 07/27/19 07/28/19 11:35 11:35 06:25 WBC 12.1 H 12.1 H RBC 3.27 L 3.22 L Hgb 10.1 L 10.1 L Hct 31.3 L 30.8 L MCV 95.7 95.7 MCH 30.7 31.3 MCHC 32.1 32.8 RDW 14.3 14.0 Plt Count 254 246 MPV 7.4 L 7.5 Absolute Neuts (auto) 9.2 H 9.5 H Neutrophils % 76.5 78.8 Lymphocytes % 17.2 14.4 Monocytes % 5.9 6.5 Eosinophils % 0.0 0.0 Basophils % 0.4 0.3 Nucleated RBC % 0 0 Sodium 141 Potassium 4.0 Chloride 110 H Carbon Dioxide 21 Anion Gap 10 BUN 19.8 H Creatinine 1.2 Est GFR (CKD-EPI)AfAm 55.70 Est GFR (CKD-EPI)NonAf 48.06 Random Glucose 212 H Calcium 8.4 L Magnesium 2.5 H Total Bilirubin 0.2 AST 17 ALT 29 Alkaline Phosphatase 77 Total Protein 7.5 Albumin 3.0 L 07/28/19 06:25 WBC RBC Hgb Hct MCV MCH MCHC RDW Plt Count MPV Absolute Neuts (auto) Neutrophils % Lymphocytes % Monocytes % Eosinophils % Basophils % Nucleated RBC % Sodium 140 Potassium 3.9 Chloride 110 H Carbon Dioxide 23 Anion Gap 7 L BUN 22.3 H Creatinine 1.1 Est GFR (CKD-EPI)AfAm 61.88 Est GFR (CKD-EPI)NonAf 53.39 Random Glucose 163 H Calcium 8.3 L Magnesium 2.2 Total Bilirubin 1.1 H AST 24 ALT 46 Alkaline Phosphatase 83 Total Protein 7.2 Albumin 2.8 L Active Medications Generic Name Dose Route Start Last Admin Trade Name Freq PRN Reason Stop Dose Admin Abacavir Sulfate 600 mg 07/26/19 10:00 07/27/19 16:33 Ziagen - PO 600 mg DAILY [facility] Administration Acetaminophen 650 mg 07/25/19 23:05 07/27/19 16:40 Tylenol - PO 650 mg Q6H PRN Administration PAIN LEVEL 1-5 Atorvastatin Calcium 10 mg 07/26/19 22:00 07/27/19 21:29 Lipitor - PO 10 mg HS [facility] Administration Budesonide/Formoterol Fumarate 2 puff 07/25/19 22:00 07/27/19 21:29 Symbicort 80/4.5mcg - IH 2 puff BID [facility] Administration Darunavir 800 mg 07/26/19 10:00 07/27/19 11:26 Prezista - PO 800 mg DAILY [facility] Administration Guaifenesin 10 ml 07/27/19 18:30 Robitussin Dm - PO Q6H PRN COUGH Doxycycline Hyclate 100 mg/ 100 mls @ 100 mls/hr 07/26/19 22:00 07/27/19 21: 26 Dextrose IVPB 100 mls/hr BID [facility] Administration Insulin Aspart 1 vial 07/28/19 11:00 Novolog Vial Sliding Scale - SQ ACHS [facility] Protocol Lamivudine 300 mg 07/26/19 10:00 07/27/19 11:27 Epivir - PO 300 mg DAILY [facility] Administration Levalbuterol HCl 0.31 mg 07/27/19 14:00 07/28/19 08:00 Xopenex IH 0.31 mg RTID [facility] Administration Methylprednisolone Sodium Succinate 40 mg 07/26/19 15:00 07/28/19 02:23 Solu-Medrol - IVPUSH 40 mg Q6H-IV [facility] Administration Mirtazapine 15 mg 07/26/19 22:00 07/27/19 21:27 Remeron - PO 15 mg HS [facility] Administration Ritonavir 100 mg 07/26/19 10:00 07/27/19 11:26 Norvir - PO 100 mg DAILY [facility] Administration Sodium Chloride 3 ml 07/27/19 18:31 Normal Saline For Inhalation - IH Q6H PRN WHEEZING Zolpidem Tartrate 5 mg 07/25/19 18:34 07/27/19 21:32 Ambien - PO 5 mg HS PRN Administration INSOMNIA ASSESSMENT/PLAN: Problem List - Problems (1) Acute exacerbation of COPD with asthma Assessment/Plan: Received multiple duonebs in the ED, magnesium and solumedrol 125mg x 1. still with wheezing and shortness of breath at rest. denies chest pain. EKG w/ sinus tach, HR 111, prolonged qtc and incomplete RBBB, possible vtach? monitor on tele for acute shortness of breath for continuous pulse ox monitoring on schedule duonebs, on 2 liters of nasal cannula, not home oxygen dependent. CTA negative for PE pulmonary consulted and following Code(s): J44.1 - CHRONIC OBSTRUCTIVE PULMONARY DISEASE W (ACUTE) EXACERBATION; J45.901 - UNSPECIFIED ASTHMA WITH (ACUTE) EXACERBATION (2) COPD exacerbation Assessment/Plan: see above Code(s): J44.1 - CHRONIC OBSTRUCTIVE PULMONARY DISEASE W (ACUTE) EXACERBATION (3) Tachycardia Assessment/Plan: monitor on tele. new rbbb on ekg Code(s): R00.0 - TACHYCARDIA, UNSPECIFIED (4) Fatigue Assessment/Plan: physical therapy once breathing more stable. Code(s): R53.83 - OTHER FATIGUE Qualifiers: Fatigue type: unspecified Qualified Code(s): R53.83 - Other fatigue (5) Anorexia nervosa without bulimia Assessment/Plan: dietary consult. patient reports weight gain of 110 lbs in 2 months. she was to follow up with endocrinology as an outpatient. Code(s): F50.00 - ANOREXIA NERVOSA, UNSPECIFIED (6) HIV (human immunodeficiency virus infection) Assessment/Plan: continue home medications ID consulted. viral load 990 on 07/07/19 labs Code(s): Z21 - ASYMPTOMATIC HUMAN IMMUNODEFICIENCY VIRUS INFECTION STATUS Qualifiers: HIV symptom status: symptomatic Qualified Code(s): B20 - Human immunodeficiency virus [HIV] disease (7) Prophylactic measure Assessment/Plan: fen tolerating po monitor electrolytes dietary consult low salt diet full code Code(s): Z29.9 - ENCOUNTER FOR PROPHYLACTIC MEASURES, UNSPECIFIED Visit type - Emergency Visit Emergency Visit: Yes ED Registration Date: 07/25/19 Care time: The patient presented to the Emergency Department on the above date and was hospitalized for further evaluation of their emergent condition. - New Patient This patient is new to me today: No - Critical Care Critical Care patient: No - Discharge Referral Referred to [facility] No
[2019-07-28] MEDS: lamiVUDine 150 MG TABLET PO SCH (10:32)
--- NOTE | 2019-07-28 10:44 | PN ---
Progress Note, Physician History of Present Illness: pulmonary alert,feeling better,less congested. - Current Medication List Current Medications: Active Medications Abacavir Sulfate (Ziagen -) 600 mg PO DAILY [facility] Last Admin: 07/28/19 09:13 Dose: 600 mg Acetaminophen (Tylenol -) 650 mg PO Q6H PRN PRN Reason: PAIN LEVEL 1-5 Last Admin: 07/27/19 16:40 Dose: 650 mg Atorvastatin Calcium (Lipitor -) 10 mg PO HS [facility] Last Admin: 07/27/19 21:29 Dose: 10 mg Budesonide/Formoterol Fumarate (Symbicort 80/4.5mcg -) 2 puff IH BID [facility] Last Admin: 07/28/19 09:14 Dose: 2 puff Darunavir (Prezista -) 800 mg PO DAILY [facility] Last Admin: 07/28/19 09:13 Dose: 800 mg Guaifenesin (Robitussin Dm -) 10 ml PO Q6H PRN PRN Reason: COUGH Doxycycline Hyclate 100 mg/ (Dextrose) 100 mls @ 100 mls/hr IVPB BID [facility] Last Admin: 07/28/19 09:14 Dose: 100 mls/hr Insulin Aspart (Novolog Vial Sliding Scale -) 1 vial SQ ACHS [facility]; Protocol Lamivudine (Epivir -) 300 mg PO DAILY [facility] Last Admin: 07/28/19 10:32 Dose: 300 mg Levalbuterol HCl (Xopenex) 0.31 mg IH RTID [facility] Last Admin: 07/28/19 08:00 Dose: 0.31 mg Methylprednisolone Sodium Succinate (Solu-Medrol -) 40 mg IVPUSH Q6H-IV [facility] Last Admin: 07/28/19 09:11 Dose: 40 mg Mirtazapine (Remeron -) 15 mg PO HS [facility] Last Admin: 07/27/19 21:27 Dose: 15 mg Ritonavir (Norvir -) 100 mg PO DAILY [facility] Last Admin: 07/28/19 09:13 Dose: 100 mg Sodium Chloride (Normal Saline For Inhalation -) 3 ml IH Q6H PRN PRN Reason: WHEEZING Zolpidem Tartrate (Ambien -) 5 mg PO HS PRN PRN Reason: INSOMNIA Last Admin: 07/27/19 21:32 Dose: 5 mg - Objective Vital Signs: Vital Signs Temperature 97.5 F L 07/28/19 09:07 Pulse Rate 108 H 07/28/19 09:07 Respiratory Rate 19 07/28/19 09:07 Blood Pressure 154/97 07/28/19 09:07 O2 Sat by Pulse Oximetry (%) 98 07/27/19 21:00 Constitutional: Yes: Well Nourished, Calm Eyes: Yes: WNL HENT: Yes: Nasal Congestion Neck: Yes: WNL Cardiovascular: Yes: Regular Rate and Rhythm, S1, S2 Respiratory: Yes: Wheezes (scattered mitzy wheezes) Gastrointestinal: Yes: Normal Bowel Sounds, Soft Extremities: Yes: WNL Edema: No Labs: CBC, BMP 07/28/19 06:25 07/28/19 06:25 INR, PTT INR Cancelled 07/25/19 11:15 Problem List - Problems (1) COPD exacerbation Code(s): J44.1 - CHRONIC OBSTRUCTIVE PULMONARY DISEASE W (ACUTE) EXACERBATION (2) HIV (human immunodeficiency virus infection) Code(s): B20 - HUMAN IMMUNODEFICIENCY VIRUS [HIV] DISEASE (3) Anorexia Code(s): R63.0 - ANOREXIA (4) Weight gain Code(s): R63.5 - ABNORMAL WEIGHT GAIN Assessment/Plan IMP DYSPNEA IMPROVING COPD EXACERBATION IMPROVING HIV H/O ANOREXIA SMOKER PLAN IV STEROIDS SAME DOSE ,START TAPER IN AM INHALED BRONCHODILATORS O2 ABX PFTS OUTPATIENT SMOKING CESSATION COUNSELED Problem List - Problems (1) COPD exacerbation Code(s): J44.1 - CHRONIC OBSTRUCTIVE PULMONARY DISEASE W (ACUTE) EXACERBATION (2) HIV (human immunodeficiency virus infection) Code(s): B20 - HUMAN IMMUNODEFICIENCY VIRUS [HIV] DISEASE (3) Anorexia Code(s): R63.0 - ANOREXIA (4) Weight gain Code(s): R63.5 - ABNORMAL WEIGHT GAIN
--- NOTE | 2019-07-28 12:05 | CON.CARD ---
Cardiology Consult (text) - Consultation Consultation Note: cc: sob hpi: 64 f hx copd, hiv here with sob. Past few days with sob, cough, wheeze, feels like usual copd. No cp palps dizzy loc pnd orthopnea le edema. Getting treated for copd. pmh: per hpi psh: nc social: +smoking fam: no premature cad, scd ros: per hpi; all others nl meds: Home Medications Medication Instructions Recorded Lactobacillus Acidophilus [Bacid -] 1 tab PO DAILY 28 Days #28 tab 10/04/18 Albuterol Sulfate Inhaler - 1 - 2 inh PO Q4H PRN #1 inhaler 04/02/19 [Ventolin HFA Inhaler -] Abacavir Sulfate/Lamivudine 1 each PO DAILY #30 tablet 07/07/19 [Abacavir-Lamivudine 600-300 mg] Darunavir Ethanolate [Prezista -] 800 mg PO DAILY #30 tablet 07/07/19 Ritonavir 100 mg PO DAILY #30 tablet 07/07/19 Fluticasone/Salmeterol [Airduo 1 puff IN BID 07/12/19 Respiclick 113-14 Mcg] Pravastatin Sodium 10 mg PO DAILY 07/12/19 Budesonide/Formeterol Fumarate 2 inh PO BID #1 cannister 07/21/19 [SYMBICORT 80/4.5mcg -] Mirtazapine 15 mg PO HS #30 tablet 07/21/19 Zolpidem Tartrate [Ambien] 5 mg PO HS #30 tablet MDD 1 07/21/19 Mirtazapine 15 mg PO HS 07/25/19 Valacyclovir HCl [Valtrex] 500 mg PO BID 07/25/19 pe: Vital Signs Period Temp Pulse Resp BP Sys/Inman Pulse Ox Last 24 Hr 97.5 F-98.4 F 95-116 18- 127-154/86-97 97-98 nad no jvd rrr s1s2 no mrg bl exp wheeze, nl eff aao3 no le e/c/c abd nt nd pos bs no jaundice diaphoresis pos dp pt no carotid bruits Laboratory Last Values WBC 12.1 K/mm3 (4.0-10.0) H 07/28/19 06:25 RBC 3.22 M/mm3 (3.60-5.2) L 07/28/19 06:25 Hgb 10.1 GM/dL (10.7-15.3) L 07/28/19 06:25 Hct 30.8 % (32.4-45.2) L 07/28/19 06:25 MCV 95.7 fl (80-96) 07/28/19 06:25 MCH 31.3 pg (25.7-33.7) 07/28/19 06:25 MCHC 32.8 g/dl (32.0-36.0) 07/28/19 06:25 RDW 14.0 % (11.6-15.6) 07/28/19 06:25 Plt Count 246 K/MM3 (134-434) 07/28/19 06:25 MPV 7.5 fl (7.5-11.1) 07/28/19 06:25 Absolute Neuts (auto) 9.5 K/mm3 (1.5-8.0) H 07/28/19 06:25 Neutrophils % 78.8 % (42.8-82.8) 07/28/19 06:25 Neutrophils % (Manual) 84.0 % (42.8-82.8) H 07/28/19 06:25 Band Neutrophils % 0.0 % 07/28/19 06:25 Lymphocytes % 14.4 % (8-40) 07/28/19 06:25 Lymphocytes % (Manual) 10.0 % (8-40) 07/28/19 06:25 Monocytes % 6.5 % (3.8-10.2) 07/28/19 06:25 Monocytes % (Manual) 2 % (3.8-10.2) L 07/28/19 06:25 Eosinophils % 0.0 % (0-4.5) 07/28/19 06:25 Eosinophils % (Manual) 0.0 % (0-4.5) D 07/28/19 06:25 Basophils % 0.3 % (0-2.0) 07/28/19 06:25 Basophils % (Manual) 0.0 % (0-2.0) 07/28/19 06:25 Myelocytes % (Man) 0 % (0-2) D 07/28/19 06:25 Promyelocytes % (Man) 0 % (0-2) 07/28/19 06:25 Blast Cells % (Manual) 0 % (0-0) D 07/28/19 06:25 Nucleated RBC % 0 % (0-0) 07/28/19 06:25 Metamyelocytes 0 % (0-2) 07/28/19 06:25 Hypochromia 0 07/28/19 06:25 Platelet Estimate Normal 07/28/19 06:25 Polychromasia 1+ 07/28/19 06:25 Poikilocytosis 0 07/28/19 06:25 Anisocytosis 0 07/28/19 06:25 Microcytosis 0 07/28/19 06:25 Macrocytosis 0 07/28/19 06:25 PT with INR Cancelled 07/25/19 11:15 INR Cancelled 07/25/19 11:15 PTT (Actin FS) Cancelled 07/25/19 11:15 VBG pH 7.34 (7.31-7.41) 07/25/19 10:58 POC VBG pCO2 47.4 mmHg (38-52) 07/25/19 10:58 POC VBG pO2 < 49 mmHg (28-48) H 07/25/19 10:58 VBG HCO3 24.9 mmol/L (23-29) 07/25/19 10:58 VBG O2 Sat (Slime) 58.1 % (70-80) L 07/25/19 10:58 VBG Base Excess -0.6 meq/l (-2-2) 07/25/19 10:58 Sodium 140 mmol/L (136-145) 07/28/19 06:25 Potassium 3.9 mmol/L (3.5-5.1) 07/28/19 06:25 Chloride 110 mmol/L (98-107) H 07/28/19 06:25 Carbon Dioxide 23 mmol/L (21-32) 07/28/19 06:25 Anion Gap 7 MMOL/L (8-16) L 07/28/19 06:25 BUN 22.3 mg/dL (7-18) H 07/28/19 06:25 Creatinine 1.1 mg/dL (0.55-1.3) 07/28/19 06:25 Est GFR (CKD-EPI)AfAm 61.88 07/28/19 06:25 Est GFR (CKD-EPI)NonAf 53.39 07/28/19 06:25 Random Glucose 163 mg/dL (74-106) H 07/28/19 06:25 Hemoglobin A1c % 6.4 % (4.2-6.3) H 07/26/19 12:14 Calcium 8.3 mg/dL (8.5-10.1) L 07/28/19 06:25 Magnesium 2.2 mg/dL (1.8-2.4) 07/28/19 06:25 Total Bilirubin 1.1 mg/dL (0.2-1) H 07/28/19 06:25 AST 24 U/L (15-37) 07/28/19 06:25 ALT 46 U/L (13-61) 07/28/19 06:25 Alkaline Phosphatase 83 U/L (45-117) 07/28/19 06:25 Creatine Kinase 277 U/L (26-192) H 07/25/19 11:15 Creatine Kinase Index 0.3 % (0.0-5.0) 07/25/19 11:15 CK-MB (CK-2) 1.0 ng/mL (0.5-3.6) 07/25/19 11:15 Troponin I < 0.02 ng/ml (0.00-0.05) 07/26/19 12:20 B-Natriuretic Peptide 59.5 pg/ml (5-125) 07/25/19 11:15 Total Protein 7.2 g/dl (6.4-8.2) 07/28/19 06:25 Albumin 2.8 g/dl (3.4-5.0) L 07/28/19 06:25 Triglycerides 81 mg/dL (0-150) 07/26/19 06:00 Cholesterol 157 mg/dL (50-200) 07/26/19 06:00 Total LDL Cholesterol 80 mg/dL (5-100) 07/26/19 06:00 HDL Cholesterol 58 mg/dL (40-60) 07/26/19 06:00 Opiates Screen Negative ng/ml (IZDUBQ=236) 07/26/19 18: Methadone Screen Negative ng/ml (YQRSVL=069) 07/26/19 18:19 Barbiturate Screen Negative ng/ml (LSJVHV=831) 07/26/19 18:19 Phencyclidine Screen Negative ng/ml (CUTOFF=25) 07/26/19 18:19 Ur Amphetamines Screen Negative ng/ml (DSYSOJ=442) 07/26/19 18:19 MDMA (Ecstasy) Screen Negative ng/ml (BLXBYO=285) 07/26/19 18:19 Benzodiazepines Screen Negative ng/ml (PMTFIU=651) 07/26/19 18:19 Cocaine Screen Negative ng/ml (IKLJFZ=562) 07/26/19 18:19 U Marijuana (THC) Screen Negative ng/ml (CUTOFF=50) 07/26/19 18:19 Influenza A (Rapid) Negative (Negative) 07/25/19 11:30 Influenza B (Rapid) Negative (Negative) 07/25/19 11:30 cta chest: no pe, no chf tele: sr/ sinus tachy, artifact ecg: sr, nl intervals, IRBBB, no st changes echo 07/2019: mild lvf, nl lvef, nl rv, no sig valve path a/p: 64 f hx copd, hiv here with sob. sob, copd: -still wheezing, cont treatment per pulm -echo unremarkable -no signs acs sinus tachy: -likely 2/2 to pulm issues -echo benign ?vt: -tele reviewed, artifact present, no vt/vf abnl ecg: -ecg with IRBBB. echo benign. no signs of acute cardiac issues. likely IRBBB related to acute pulm dz.
[2019-07-28] MEDS: INSULIN SLIDING SCALE (NOVOLOG) 1 VIAL SQ SCH ×3 (12:09→22:04)
[2019-07-28] MEDS ORDERED: LEVALBUTEROL HCL 0.63 MG/3 ML VIAL.NEB. IH ONE (14:05)
--- NOTE | 2019-07-28 16:03 | PN ---
Progress Note (short form) - Note Progress Note: becomes tachycardic with walking still wheezing Vital Signs Period Temp Pulse Resp BP Sys/Inman Pulse Ox Last 24 Hr 97.5 F-98.4 F 95-113 - 143-154/86-97 97-98 cor-rrr llungs bilateral wheezing abd soft,nt ext no edema CBC, BMP 07/28/19 06:25 07/28/19 06:25 Microbiology 07/25/19 11:15 Blood - Peripheral Venous Blood Culture - Preliminary NO GROWTH OBTAINED AFTER 72 HOURS, INCUBATION TO CONTINUE FOR 2 DAYS. 07/25/19 11:15 Blood - Peripheral Venous Blood Culture - Preliminary NO GROWTH OBTAINED AFTER 72 HOURS, INCUBATION TO CONTINUE FOR 2 DAYS. 07/26/19 18:19 Urine - Urine Clean Catch Urine Culture - Final NO GROWTH OBTAINED imp/reccd copd exacerbation bronchitis hiv recent weight gain glucose intolerance on steroids penicillin allergy continue HIV meds continue doxycycline- change to po check RSV steroids nebs per pulmonary
[2019-07-28] MEDS: PANTOPRAZOLE 40 MG TABLET (FP) PO SCH (17:07)
[2019-07-28] MEDS: MIRTAZAPINE 15 MG TABLET (FP) PO SCH (21:13)
[2019-07-28] MEDS: ATORVASTATIN CA 10 MG TABLET (FP) PO SCH (21:13)
[2019-07-28] MEDS: ZOLPIDEM TARTRATE 5 MG TABLET PO PRN (22:04)
[2019-07-29] MEDS: methylPREDNISolone NA SUCC 40 MG/1 ML VIAL IVPUSH SCH ×4 (02:16→21:52)
[2019-07-29 06:47] LABS: BASO % 0.1 % (0-2.0); HEMATOCRIT 30.3 % (32.4-45.2); LYMPH % 15.1 % (8-40); MCH 31.4 pg (25.7-33.7); MCHC 33.1 g/dl (32.0-36.0); MEAN PLT VOLUME 7.6 fl (7.5-11.1); MONO % 8.1 % (3.8-10.2); NEUT % 76.7 % (42.8-82.8); PLATELET COUNT 250 K/MM3 (134-434); RBC 3.19 M/mm3 (3.60-5.2); RDW 13.9 % (11.6-15.6); WHITE BLOOD COUNT 12.2 K/mm3 (4.0-10.0)
[2019-07-29] MEDS ORDERED: MAG HYDROX/AL HYDROX/SIMETH 30 ML UNIT-DOSE CUP PO ONE (06:59)
[2019-07-29] MEDS: INSULIN SLIDING SCALE (NOVOLOG) 1 VIAL SQ SCH ×4 (07:06→21:53)
[2019-07-29 07:31] LABS: ALBUMIN 2.8 g/dl (3.4-5.0); BILIRUBIN,TOTAL 0.4 mg/dL (0.2-1); BLOOD UREA NITROGEN 24.3 mg/dL (7-18); CALCIUM 8.2 mg/dL (8.5-10.1); CREATININE 1.2 mg/dL (0.55-1.3); MAGNESIUM 2.3 mg/dL (1.8-2.4); POTASSIUM 3.9 mmol/L (3.5-5.1); TOT PROT 6.9 g/dl (6.4-8.2)
[2019-07-29] MEDS: LEVALBUTEROL HCL 0.31 MG/3 ML VIAL.NEB IH SCH ×4 (08:20→20:47)
[2019-07-29] MEDS ORDERED: DOXYCYCLINE HYCLATE 100 MG VIAL ONE (09:31)
[2019-07-29] MEDS ORDERED: DEXTROSE 5%-WATER 100 ML IVPB ONE (09:31)
[2019-07-29] MEDS: DARUNAVIR ETHANOLATE 800 MG TAB PO SCH (09:40)
[2019-07-29] MEDS: lamiVUDine 150 MG TABLET PO SCH (09:40)
[2019-07-29] MEDS: RITONAVIR 100 MG TABLET PO SCH (09:40)
[2019-07-29] MEDS: BUDESONIDE/FORMETEROL FUMARATE 80/4.5 mcg INHALER IH SCH (09:41)
[2019-07-29] MEDS: PANTOPRAZOLE 40 MG TABLET (FP) PO SCH (09:41)
[2019-07-29] MEDS: ABACAVIR SULFATE 300 MG TABLET PO SCH (09:43)
--- NOTE | 2019-07-29 10:17 | PN ---
Progress Note, Physician Chief Complaint: TELE: Sinus tach NO CP , SOB at baseline, no change No palps - Current Medication List Current Medications: Active Medications Abacavir Sulfate (Ziagen -) 600 mg PO DAILY [facility] Last Admin: 07/29/19 09:43 Dose: 600 mg Acetaminophen (Tylenol -) 650 mg PO Q6H PRN PRN Reason: PAIN LEVEL 1-5 Last Admin: 07/27/19 16:40 Dose: 650 mg Atorvastatin Calcium (Lipitor -) 10 mg PO HS [facility] Last Admin: 07/28/19 21:13 Dose: 10 mg Budesonide/Formoterol Fumarate (Symbicort 80/4.5mcg -) 2 puff IH BID [facility] Last Admin: 07/29/19 09:41 Dose: 2 puff Darunavir (Prezista -) 800 mg PO DAILY [facility] Last Admin: 07/29/19 09:40 Dose: 800 mg Guaifenesin (Robitussin Dm -) 10 ml PO Q6H PRN PRN Reason: COUGH Doxycycline Hyclate 100 mg/ (Dextrose) 100 mls @ 100 mls/hr IVPB BID [facility] Last Admin: 07/28/19 21:13 Dose: 100 mls/hr Insulin Aspart (Novolog Vial Sliding Scale -) 1 vial SQ ACHS [facility]; Protocol Last Admin: 07/29/19 07:06 Dose: Not Given Lamivudine (Epivir -) 300 mg PO DAILY [facility] Last Admin: 07/29/19 09:40 Dose: 300 mg Levalbuterol HCl (Xopenex) 0.31 mg IH RTID [facility] Last Admin: 07/29/19 08:20 Dose: 0.31 mg Methylprednisolone Sodium Succinate (Solu-Medrol -) 40 mg IVPUSH Q6H-IV SHERI Last Admin: 07/29/19 08:33 Dose: 40 mg Mirtazapine (Remeron -) 15 mg PO HS [facility] Last Admin: 07/28/19 21:13 Dose: 15 mg Pantoprazole Sodium (Protonix -) 40 mg PO DAILY [facility] Last Admin: 07/29/19 09:41 Dose: 40 mg Ritonavir (Norvir -) 100 mg PO DAILY [facility] Last Admin: 07/29/19 09:40 Dose: 100 mg Sodium Chloride (Normal Saline For Inhalation -) 3 ml IH Q6H PRN PRN Reason: WHEEZING Zolpidem Tartrate (Ambien -) 5 mg PO HS PRN PRN Reason: INSOMNIA Last Admin: 07/28/19 22:04 Dose: 5 mg - Objective Vital Signs: Vital Signs Temperature 97.7 F 07/29/19 10:00 Pulse Rate 88 07/29/19 10:00 Respiratory Rate 07/29/19 10:00 Blood Pressure 150/76 07/29/19 10:00 O2 Sat by Pulse Oximetry (%) 96 07/28/19 21:00 Constitutional: Yes: No Distress Cardiovascular: Yes: Regular Rate and Rhythm, Tachycardia Respiratory: Yes: Other (mild expiratory wheezing) Gastrointestinal: Yes: Soft Edema: No Neurological: Yes: Alert, Oriented Labs: CBC, BMP 07/29/19 05:35 07/29/19 05:35 INR, PTT INR Cancelled 07/25/19 11:15 - ....Imaging EKG: Image Reviewed Assessment/Plan cta chest: no pe, no chf tele: sr/ sinus tachy, artifact ecg: sr, nl intervals, IRBBB, no st changes echo 07/2019: mild lvf, nl lvef, nl rv, no sig valve path a/p: 64 f hx copd, hiv here with sob. sob, copd: -still wheezing, cont treatment per pulm -echo unremarkable -no signs acs sinus tachy: -likely 2/2 to pulm issues, steroids. -echo benign, CTA negative. -Check TSH ?vt: -tele reviewed, artifact present, no vt/vf abnl ecg: -ecg with IRBBB. echo benign. no signs of acute cardiac issues. likely IRBBB related to acute pulm dz.
[2019-07-29 10:41] LABS: ANISOCYTOSIS 0; MACROCYTOSIS 0; PLATELET ESTIMATE NORMAL
[2019-07-29] MEDS: DOXYCYCLINE INJECTION 100 MG in DEXTROSE 5%-WATER 100 ML IVPB SCH (11:41)
[2019-07-29] MEDS ORDERED: MAG HYDROX/AL HYDROX/SIMETH 30 ML UNIT-DOSE CUP PO PRN (12:13)
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
--- NOTE | 2019-07-29 13:04 | PN ---
Progress Note, Physician History of Present Illness: PULMONARY ALERT,STILL CONGESTED ,COUGH NON-PRODUCTIVE,+ TACHYCARDIC WITH MIN EXERTION - Current Medication List Current Medications: Active Medications Abacavir Sulfate (Ziagen -) 600 mg PO DAILY [facility] Last Admin: 07/29/19 09:43 Dose: 600 mg Acetaminophen (Tylenol -) 650 mg PO Q6H PRN PRN Reason: PAIN LEVEL 1-5 Last Admin: 07/27/19 16:40 Dose: 650 mg Al Hydroxide/Mg Hydroxide (Mylanta Oral Suspension -) 30 ml PO Q6H PRN PRN Reason: DYSPEPSIA Last Admin: 07/29/19 12:47 Dose: 30 ml Atorvastatin Calcium (Lipitor -) 10 mg PO HS [facility] Last Admin: 07/28/19 21:13 Dose: 10 mg Budesonide/Formoterol Fumarate (Symbicort 80/4.5mcg -) 2 puff IH BID [facility] Last Admin: 07/29/19 09:41 Dose: 2 puff Darunavir (Prezista -) 800 mg PO DAILY [facility] Last Admin: 07/29/19 09:40 Dose: 800 mg Guaifenesin (Robitussin Dm -) 10 ml PO Q6H PRN PRN Reason: COUGH Doxycycline Hyclate 100 mg/ (Dextrose) 100 mls @ 100 mls/hr IVPB BID [facility] Last Admin: 07/29/19 11:41 Dose: 100 mls/hr Insulin Aspart (Novolog Vial Sliding Scale -) 1 vial SQ ACHS [facility]; Protocol Last Admin: 07/29/19 12:03 Dose: 6 unit Lamivudine (Epivir -) 300 mg PO DAILY [facility] Last Admin: 07/29/19 09:40 Dose: 300 mg Levalbuterol HCl (Xopenex) 0.31 mg IH RTID [facility] Last Admin: 07/29/19 08:20 Dose: 0.31 mg Methylprednisolone Sodium Succinate (Solu-Medrol -) 40 mg IVPUSH Q6H-IV [facility] Last Admin: 07/29/19 08:33 Dose: 40 mg Mirtazapine (Remeron -) 15 mg PO HS [facility] Last Admin: 07/28/19 21:13 Dose: 15 mg Pantoprazole Sodium (Protonix -) 40 mg PO DAILY [facility] Last Admin: 07/29/19 09:41 Dose: 40 mg Ritonavir (Norvir -) 100 mg PO DAILY [facility] Last Admin: 07/29/19 09:40 Dose: 100 mg Sodium Chloride (Normal Saline For Inhalation -) 3 ml IH Q6H PRN PRN Reason: WHEEZING Zolpidem Tartrate (Ambien -) 5 mg PO HS PRN PRN Reason: INSOMNIA Last Admin: 07/28/19 22:04 Dose: 5 mg - Objective Vital Signs: Vital Signs Temperature 97.7 F 07/29/19 10:00 Pulse Rate 88 07/29/19 10:00 Respiratory Rate 07/29/19 10:00 Blood Pressure 150/76 07/29/19 10:00 O2 Sat by Pulse Oximetry (%) 96 07/28/19 21:00 Constitutional: Yes: Well Nourished, Calm Eyes: Yes: WNL HENT: Yes: WNL Neck: Yes: WNL Cardiovascular: Yes: Regular Rate and Rhythm, S1, S2 Respiratory: Yes: Rhonchi, Wheezes (BILATERAL WHEEZES AND RHONCHI) Gastrointestinal: Yes: Normal Bowel Sounds, Soft Extremities: Yes: WNL Edema: No Labs: CBC, BMP 07/29/19 05:35 07/29/19 05:35 INR, PTT INR Cancelled 07/25/19 11:15 Problem List - Problems (1) COPD exacerbation Code(s): J44.1 - CHRONIC OBSTRUCTIVE PULMONARY DISEASE W (ACUTE) EXACERBATION (2) HIV (human immunodeficiency virus infection) Code(s): B20 - HUMAN IMMUNODEFICIENCY VIRUS [HIV] DISEASE (3) Anorexia Code(s): R63.0 - ANOREXIA (4) Weight gain Code(s): R63.5 - ABNORMAL WEIGHT GAIN Assessment/Plan IMP DYSPNEA IMPROVING COPD EXACERBATION IMPROVING HIV H/O ANOREXIA SMOKER PLAN IV STEROIDS SAME DOSE INHALED BRONCHODILATORS XOPENEX O2 ABX PFTS OUTPATIENT SMOKING CESSATION COUNSELED Problem List - Problems (1) COPD exacerbation Code(s): J44.1 - CHRONIC OBSTRUCTIVE PULMONARY DISEASE W (ACUTE) EXACERBATION (2) HIV (human immunodeficiency virus infection) Code(s): B20 - HUMAN IMMUNODEFICIENCY VIRUS [HIV] DISEASE (3) Anorexia Code(s): R63.0 - ANOREXIA (4) Weight gain Code(s): R63.5 - ABNORMAL WEIGHT GAIN
--- NOTE | 2019-07-29 15:09 | PN ---
Progress Note (short form) - Note Progress Note: becomes tachycardic with walking still wheezing still coughing Vital Signs Period Temp Pulse Resp BP Sys/Inman Pulse Ox Last 24 Hr 97.7 F-98.3 F 88-117 18-20 136-160/76-109 96-97 cor-rrr lungs bilateral rhoncho and wheezing abd soft,nt ext no edema CBC, BMP 07/29/19 05:35 07/29/19 05:35 Microbiology 07/25/19 11:15 Blood - Peripheral Venous Blood Culture - Preliminary NO GROWTH OBTAINED AFTER 96 HOURS, INCUBATION TO CONTINUE FOR 1 DAYS. 07/25/19 11:15 Blood - Peripheral Venous Blood Culture - Preliminary NO GROWTH OBTAINED AFTER 96 HOURS, INCUBATION TO CONTINUE FOR 1 DAYS. 07/26/19 18:19 Urine - Urine Clean Catch Urine Culture - Final NO GROWTH OBTAINED imp/reccd copd exacerbation bronchitis hiv recent weight gain glucose intolerance on steroids tachycardia- d/w pulmonary, switched to xopenex today penicillin allergy continue HIV meds continue doxycycline- change to po check RSV steroids nebs per pulmonary
[2019-07-29] MEDS: amLODIPine BESYLATE 2.5 MG TABLET (FP) PO SCH (15:32)
[2019-07-29] MEDS: TIOTROPIUM BROMIDE 2.5 MCG (SPIRIVA) RESPIMAT INHALER IH SCH (17:16)
[2019-07-29] MEDS: DOXYCYCLINE HYCLATE 100 MG CAPSULE PO SCH (17:17)
[2019-07-29] MEDS: ALBUTEROL SO4 0.083% IH SOL 2.5 MG/3 ML VIAL.NEB. NEB PRN (20:41)
[2019-07-29] MEDS: ZOLPIDEM TARTRATE 5 MG TABLET PO PRN (21:53)
[2019-07-29] MEDS: ATORVASTATIN CA 10 MG TABLET (FP) PO SCH (21:53)
[2019-07-29] MEDS: INSULIN (LEVEMIR) 100 UNITS/ML UNITS SQ SCH (21:53)
[2019-07-29] MEDS: MIRTAZAPINE 15 MG TABLET (FP) PO SCH (21:54)
[2019-07-30] MEDS: methylPREDNISolone NA SUCC 40 MG/1 ML VIAL IVPUSH SCH ×4 (02:42→22:16)
[2019-07-30] MEDS: INSULIN SLIDING SCALE (NOVOLOG) 1 VIAL SQ SCH ×4 (06:47→22:16)
[2019-07-30 07:44] LABS: BASO % 0.3 % (0-2.0); HEMATOCRIT 30.8 % (32.4-45.2); HEMOGLOBIN 10.2 GM/dL (10.7-15.3); LYMPH % 15.8 % (8-40); MCH 31.4 pg (25.7-33.7); MCHC 33.2 g/dl (32.0-36.0); MEAN CELL VOLUME 94.6 fl (80-96); MEAN PLT VOLUME 7.6 fl (7.5-11.1); MONO % 9.2 % (3.8-10.2); NEUT % 74.7 % (42.8-82.8); PLATELET COUNT 249 K/MM3 (134-434); RBC 3.25 M/mm3 (3.60-5.2); RDW 13.8 % (11.6-15.6); WHITE BLOOD COUNT 11.4 K/mm3 (4.0-10.0)
[2019-07-30] MEDS: ALBUTEROL SO4 0.083% IH SOL 2.5 MG/3 ML VIAL.NEB. NEB PRN (08:00)
[2019-07-30 08:12] LABS: ALBUMIN 2.8 g/dl (3.4-5.0); BILIRUBIN,TOTAL 0.5 mg/dL (0.2-1); BLOOD UREA NITROGEN 25.4 mg/dL (7-18); CALCIUM 8.1 mg/dL (8.5-10.1); CREATININE 1.1 mg/dL (0.55-1.3); MAGNESIUM 2.5 mg/dL (1.8-2.4); TOT PROT 6.9 g/dl (6.4-8.2)
[2019-07-30] MEDS: LEVALBUTEROL HCL 0.31 MG/3 ML VIAL.NEB IH SCH (08:45)
[2019-07-30] MEDS ORDERED: PT OWN MED DRAWER 7, Y5N ONE (09:15)
[2019-07-30] MEDS: lamiVUDine 150 MG TABLET PO SCH (09:34)
[2019-07-30] MEDS: PANTOPRAZOLE 40 MG TABLET (FP) PO SCH (09:34)
[2019-07-30] MEDS: DOXYCYCLINE HYCLATE 100 MG CAPSULE PO SCH ×2 (09:34→17:09)
[2019-07-30] MEDS: amLODIPine BESYLATE 2.5 MG TABLET (FP) PO SCH (09:34)
[2019-07-30] MEDS: TIOTROPIUM BROMIDE 2.5 MCG (SPIRIVA) RESPIMAT INHALER IH SCH (09:35)
[2019-07-30] MEDS: RITONAVIR 100 MG TABLET PO SCH (09:35)
[2019-07-30] MEDS: ABACAVIR SULFATE 300 MG TABLET PO SCH (09:36)
[2019-07-30] MEDS: DARUNAVIR ETHANOLATE 800 MG TAB PO SCH (09:36)
[2019-07-30 09:56] LABS: ANISOCYTOSIS 1+; MACROCYTOSIS 0; PLATELET ESTIMATE NORMAL
--- NOTE | 2019-07-30 12:39 | PN ---
Progress Note (short form) - Note Progress Note: s: no chest pain, palps, dizziness, dyspnea Current Medications Abacavir Sulfate (Ziagen -) 600 mg PO DAILY [facility] Last Admin: 07/30/19 09:36 Dose: 600 mg Acetaminophen (Tylenol -) 650 mg PO Q6H PRN PRN Reason: PAIN LEVEL 1-5 Last Admin: 07/27/19 16:40 Dose: 650 mg Al Hydroxide/Mg Hydroxide (Mylanta Oral Suspension -) 30 ml PO Q6H PRN PRN Reason: DYSPEPSIA Last Admin: 07/29/19 12:47 Dose: 30 ml Albuterol Sulfate (Ventolin 0.083% Nebulizer Soln -) 1 amp NEB Q4H PRN PRN Reason: SHORT OF BREATH/WHEEZING Last Admin: 07/30/19 08:00 Dose: 1 amp Amlodipine Besylate (Norvasc -) 2.5 mg PO DAILY [facility] Last Admin: 07/30/19 09:34 Dose: 2.5 mg Atorvastatin Calcium (Lipitor -) 10 mg PO [facility] Last Admin: 07/29/19 21:53 Dose: 10 mg Darunavir (Prezista -) 800 mg PO DAILY [facility] Last Admin: 07/30/19 09:36 Dose: 800 mg Doxycycline Hyclate (Vibramycin -) 100 mg PO BID@1000,1800 [facility] Last Admin: 07/30/19 09:34 Dose: 100 mg Guaifenesin (Robitussin Dm -) 10 ml PO Q6H PRN PRN Reason: COUGH Insulin Aspart (Novolog Vial Sliding Scale -) 1 vial SQ [facility]; Protocol Last Admin: 07/30/19 11:54 Dose: 2 unit Insulin Detemir (Levemir Vial) 5 units SQ [facility] Last Admin: 07/29/19 21:53 Dose: 5 units Lamivudine (Epivir -) 300 mg PO DAILY [facility] Last Admin: 07/30/19 09:34 Dose: 300 mg Levalbuterol HCl (Xopenex) 0.31 mg IH RTID [facility] Last Admin: 07/30/19 08:45 Dose: Not Given Methylprednisolone Sodium Succinate (Solu-Medrol -) 40 mg IVPUSH Q6H-IV [facility] Last Admin: 07/30/19 09:34 Dose: 40 mg Mirtazapine (Remeron -) 15 mg PO HS [facility] Last Admin: 07/29/19 21:54 Dose: 15 mg Pantoprazole Sodium (Protonix -) 40 mg PO DAILY [facility] Last Admin: 07/30/19 09:34 Dose: 40 mg Ritonavir (Norvir -) 100 mg PO DAILY [facility] Last Admin: 07/30/19 09:35 Dose: 100 mg Sodium Chloride (Normal Saline For Inhalation -) 3 ml IH Q6H PRN PRN Reason: WHEEZING Tiotropium [place] (Spiriva Respimat) 2 puff IH DAILY [facility] Last Admin: 07/30/19 09:35 Dose: 2 puff Zolpidem Tartrate (Ambien -) 5 mg PO HS PRN PRN Reason: INSOMNIA Last Admin: 07/29/19 21:53 Dose: 5 mg Vital Signs Period Temp Pulse Resp BP Sys/[place] Pulse Ox Last 24 Hr 97.9 F-98.3 F 84-120 18-20 123-170/82-109 92 Constitutional: Yes: No Distress Cardiovascular: Yes: Regular Rate and Rhythm, Tachycardia Respiratory: Yes: Other (diffuse expiratory wheezes) Gastrointestinal: Yes: Soft Edema: No Neurological: Yes: Alert, Oriented no jaundice, diaphoresis not agitated - ....Imaging EKG: Image Reviewed Assessment/Plan cta chest: no pe, no chf tele: sr/ sinus tachy, artifact ecg: sr, nl intervals, IRBBB, no st changes echo 07/2019: mild lvf, nl lvef, nl rv, no sig valve path a/p: 64 f hx copd, hiv here with sob. sob, copd: -still wheezing, cont treatment per pulm -echo unremarkable -no signs acs sinus tachy: -likely 2/2 to pulm issues, steroids. -echo benign, CTA negative - tsh 0.06 - check free T4 ?vt: -tele reviewed, artifact present, no vt/vf abnl ecg: -ecg with IRBBB. echo benign. no signs of acute cardiac issues. likely IRBBB related to acute pulm dz.
--- NOTE | 2019-07-30 13:23 | PN ---
Progress Note (short form) - Note Progress Note: PULMONARY Still short of breath, cough, chest tightness, wheezing. Vital Signs Period Temp Pulse Resp BP Sys/[place] Pulse Ox Last 24 Hr 97.9 F-98.3 F 84-120 18-20 123-170/82-109 92 Gen: tachypneic with speaking Heart: RRR Lung: bilateral rhonchi, wheezes Abd: soft, nontender Ext: no edema CBC, BMP 07/30/19 06:25 07/30/19 06:25 Active Medications Abacavir Sulfate (Ziagen -) 600 mg PO DAILY [facility] Last Admin: 07/30/19 09:36 Dose: 600 mg Acetaminophen (Tylenol -) 650 mg PO Q6H PRN PRN Reason: PAIN LEVEL 1-5 Last Admin: 07/27/19 16:40 Dose: 650 mg Al Hydroxide/Mg Hydroxide (Mylanta Oral Suspension -) 30 ml PO Q6H PRN PRN Reason: DYSPEPSIA Last Admin: 07/29/19 12:47 Dose: 30 ml Albuterol Sulfate (Ventolin 0.083% Nebulizer Soln -) 1 amp NEB Q4H PRN PRN Reason: SHORT OF BREATH/WHEEZING Last Admin: 07/30/19 08:00 Dose: 1 amp Amlodipine Besylate (Norvasc -) 2.5 mg PO DAILY [facility] Last Admin: 07/30/19 09:34 Dose: 2.5 mg Atorvastatin Calcium (Lipitor -) 10 mg PO HS [facility] Last Admin: 07/29/19 21:53 Dose: 10 mg Darunavir (Prezista -) 800 mg PO DAILY [facility] Last Admin: 07/30/19 09:36 Dose: 800 mg Doxycycline Hyclate (Vibramycin -) 100 mg PO BID@1000,1800 [facility] Last Admin: 07/30/19 09:34 Dose: 100 mg Guaifenesin (Robitussin Dm -) 10 ml PO Q6H PRN PRN Reason: COUGH Insulin Aspart (Novolog Vial Sliding Scale -) 1 vial SQ ACHS [facility]; Protocol Last Admin: 07/30/19 11:54 Dose: 2 unit Insulin Detemir (Levemir Vial) 5 units SQ HS [facility] Last Admin: 07/29/19 21:53 Dose: 5 units Lamivudine (Epivir -) 300 mg PO DAILY [facility] Last Admin: 07/30/19 09:34 Dose: 300 mg Levalbuterol HCl (Xopenex) 0.31 mg IH RTID [facility] Last Admin: 07/30/19 08:45 Dose: Not Given Methylprednisolone Sodium Succinate (Solu-Medrol -) 40 mg IVPUSH Q6H-IV [facility] Last Admin: 07/30/19 09:34 Dose: 40 mg Mirtazapine (Remeron -) 15 mg PO HS [facility] Last Admin: 07/29/19 21:54 Dose: 15 mg Pantoprazole Sodium (Protonix -) 40 mg PO DAILY [facility] Last Admin: 07/30/19 09:34 Dose: 40 mg Ritonavir (Norvir -) 100 mg PO DAILY [facility] Last Admin: 07/30/19 09:35 Dose: 100 mg Sodium Chloride (Normal Saline For Inhalation -) 3 ml IH Q6H PRN PRN Reason: WHEEZING Tiotropium [place] (Spiriva Respimat) 2 puff IH DAILY [facility] Last Admin: 07/30/19 09:35 Dose: 2 puff Zolpidem Tartrate (Ambien -) 5 mg PO HS PRN PRN Reason: INSOMNIA Last Admin: 07/29/19 21:53 Dose: 5 mg A/P Acute COPD Exacerbation Acute Bronchitis HIV Smoker - will increase medrol to 60mg q6h - inhaled bronchodilators standing and PRN - O2 to keep SpO2 >90% - antibiotics - DVT prophylaxis
[2019-07-30] MEDS: LEVALBUTEROL HCL 0.63 MG/3 ML VIAL.NEB. IH SCH ×3 (15:29→20:23)
--- NOTE | 2019-07-30 16:17 | PN ---
Physical Exam: SUBJECTIVE: Patient seen and examined. She says she is still wheezing but she feels less SOB. OBJECTIVE: Vital Signs Period Temp Pulse Resp BP Sys/[place] Pulse Ox Last 24 Hr 98.2 F-98.4 F 84-129 18-20 123-170/80-105 92-96 GENERAL: The patient is awake, alert, and fully oriented, in no acute distress. LUNGS: Breath sounds equal, bilateral rhonchi and wheezes, no crackles, no accessory muscle use. HEART: Regular rhythm, S1, S2, tachycardic without murmur, rub or gallop. ABDOMEN: Soft, nontender, nondistended, normoactive bowel sounds, no guarding, no rebound, no hepatosplenomegaly, no masses. EXTREMITIES: 2+ pulses, warm, well-perfused, no edema. Laboratory Results - last 24 hr 07/29/19 07/29/19 07/29/19 14:30 17:17 21:51 WBC RBC Hgb Hct MCV MCH MCHC RDW Plt Count MPV Absolute Neuts (auto) Neutrophils % Neutrophils % (Manual) Band Neutrophils % Lymphocytes % Lymphocytes % (Manual) Monocytes % Monocytes % (Manual) Eosinophils % Eosinophils % (Manual) Basophils % Basophils % (Manual) Myelocytes % (Man) Promyelocytes % (Man) Blast Cells % (Manual) Nucleated RBC % Metamyelocytes Hypochromia Platelet Estimate Polychromasia Poikilocytosis Anisocytosis Microcytosis Macrocytosis Sodium Potassium Chloride Carbon Dioxide Anion Gap BUN Creatinine Est GFR (CKD-EPI)AfAm Est GFR (CKD-EPI)NonAf POC Glucometer 190 294 Random Glucose Calcium Magnesium Total Bilirubin AST ALT Alkaline Phosphatase Total Protein Albumin TSH RSV Rapid Negative 07/30/19 07/30/19 07/30/19 06:25 06:25 06:36 WBC 11.4 H RBC 3.25 L Hgb 10.2 L Hct 30.8 L MCV 94.6 MCH 31.4 MCHC 33.2 RDW 13.8 Plt Count 249 MPV 7.6 Absolute Neuts (auto) 8.5 H Neutrophils % 74.7 Neutrophils % (Manual) 60.2 Band Neutrophils % 0.0 Lymphocytes % 15.8 Lymphocytes % (Manual) 18.4 D Monocytes % 9.2 Monocytes % (Manual) 9 D Eosinophils % 0.0 Eosinophils % (Manual) 3.0 D Basophils % 0.3 Basophils % (Manual) 0.0 Myelocytes % (Man) 2 D Promyelocytes % (Man) 0 Blast Cells % (Manual) 0 Nucleated RBC % 2 H Metamyelocytes 3 H Hypochromia 0 Platelet Estimate Normal Polychromasia 1+ Poikilocytosis 0 Anisocytosis 1+ Microcytosis 1+ Macrocytosis 0 Sodium 140 Potassium 4.0 Chloride 108 H Carbon Dioxide 26 Anion Gap 6 L BUN 25.4 H Creatinine 1.1 Est GFR (CKD-EPI)AfAm 61.88 Est GFR (CKD-EPI)NonAf 53.39 POC Glucometer 155 Random Glucose 150 H Calcium 8.1 L Magnesium 2.5 H Total Bilirubin 0.5 AST 23 ALT 66 H Alkaline Phosphatase 75 Total Protein 6.9 Albumin 2.8 L TSH 0.06 L RSV Rapid 07/30/19 11:49 WBC RBC Hgb Hct MCV MCH MCHC RDW Plt Count MPV Absolute Neuts (auto) Neutrophils % Neutrophils % (Manual) Band Neutrophils % Lymphocytes % Lymphocytes % (Manual) Monocytes % Monocytes % (Manual) Eosinophils % Eosinophils % (Manual) Basophils % Basophils % (Manual) Myelocytes % (Man) Promyelocytes % (Man) Blast Cells % (Manual) Nucleated RBC % Metamyelocytes Hypochromia Platelet Estimate Polychromasia Poikilocytosis Anisocytosis Microcytosis Macrocytosis Sodium Potassium Chloride Carbon Dioxide Anion Gap BUN Creatinine Est GFR (CKD-EPI)AfAm Est GFR (CKD-EPI)NonAf POC Glucometer 191 Random Glucose Calcium Magnesium Total Bilirubin AST ALT Alkaline Phosphatase Total Protein Albumin TSH RSV Rapid Active Medications Generic Name Dose Route Start Last Admin Trade Name Freq PRN Reason Stop Dose Admin Abacavir Sulfate 600 mg 07/26/19 10:00 07/30/19 09:36 Ziagen - PO 600 mg DAILY [facility] Administration Acetaminophen 650 mg 07/25/19 23:05 07/27/19 16:40 Tylenol - PO 650 mg Q6H PRN Administration PAIN LEVEL 1-5 Al Hydroxide/Mg Hydroxide 30 ml 07/29/19 12:13 07/29/19 12:47 Mylanta Oral Suspension - PO 30 ml Q6H PRN Administration DYSPEPSIA Albuterol Sulfate 1 amp 07/29/19 13:05 07/30/19 08:00 Ventolin 0.083% Nebulizer Soln - NEB 1 amp Q4H PRN Administration SHORT OF BREATH/WHEEZING Amlodipine Besylate 2.5 mg 07/29/19 15:30 07/30/19 09:34 Norvasc - PO 2.5 mg DAILY [facility] Administration Atorvastatin Calcium 10 mg 07/26/19 22:00 07/29/19 21:53 Lipitor - PO 10 mg HS [facility] Administration Budesonide/Formoterol Fumarate 2 puff 07/30/19 13:30 Symbicort 160/4.5mcg - IH BID [facility] Darunavir 800 mg 07/26/19 10:00 07/30/19 09:36 Prezista - PO 800 mg DAILY [facility] Administration Doxycycline Hyclate 100 mg 07/29/19 18:00 07/30/19 09:34 Vibramycin - PO 100 mg BID@1000,1800 [facility] Administration Guaifenesin 10 ml 07/27/19 18:30 Robitussin Dm - PO Q6H PRN COUGH Insulin Aspart 1 vial 07/28/19 11:00 07/30/19 11:54 Novolog Vial Sliding Scale - SQ 2 unit ACHS [facility] Administration Protocol Insulin Detemir 5 units 07/29/19 22:00 07/29/19 21:53 Levemir Vial SQ 5 units HS [facility] Administration Lamivudine 300 mg 07/26/19 10:00 07/30/19 09:34 Epivir - PO 300 mg DAILY [facility] Administration Levalbuterol HCl 0.63 mg 07/30/19 13:30 07/30/19 15:29 Xopenex IH 0.63 mg RTID [facility] Administration Methylprednisolone Sodium Succinate 60 mg 07/30/19 13:23 07/30/19 14:34 Solu-Medrol - IVPUSH 60 mg Q6H-IV [facility] Administration Mirtazapine 15 mg 07/26/19 22:00 07/29/19 21:54 Remeron - PO 15 mg HS [facility] Administration Pantoprazole Sodium 40 mg 07/28/19 16:30 07/30/19 09:34 Protonix - PO 40 mg DAILY [facility] Administration Ritonavir 100 mg 07/26/19 10:00 07/30/19 09:35 Norvir - PO 100 mg DAILY [facility] Administration Sodium Chloride 3 ml 07/27/19 18:31 Normal Saline For Inhalation - IH Q6H PRN WHEEZING Tiotropium [place] 2 puff 07/29/19 13:15 07/30/19 09:35 Spiriva Respimat IH 2 puff DAILY [facility] Administration Zolpidem Tartrate 5 mg 07/28/19 21:26 07/29/19 21:53 Ambien - PO 5 mg HS PRN Administration INSOMNIA ASSESSMENT/PLAN: This is a 64 year old woman with a history of HIV, anorexia, COPD who presented to the ED from the [facility] with shortness of breath. 1. Acute exacerbation of COPD secondary to acute bronchitis - SoluMedrol increased and Xopenex started - Continue Symbicort, Spiriva, albuterol as needed, doxycycline - Oxygen to maintain saturation >90% 2. Hypertension - Continue Norvasc 3. Anorexia nervosa 4. HIV - Continue Prezista, Epivir, Norvir, Ziagen Visit type - Emergency Visit Emergency Visit: Yes ED Registration Date: 07/25/19 Care time: The patient presented to the Emergency Department on the above date and was hospitalized for further evaluation of their emergent condition. - New Patient This patient is new to me today: Yes Date on this admission: 07/30/19 - Critical Care Critical Care patient: No - Discharge Referral Referred to [facility] Med [facility] No
[2019-07-30] MEDS: BUDESONIDE/FORMETEROL FUMARATE 160/4.5 mcg INHALER IH SCH ×2 (17:09→22:17)
[2019-07-30] MEDS: MIRTAZAPINE 15 MG TABLET (FP) PO SCH (22:16)
[2019-07-30] MEDS: ZOLPIDEM TARTRATE 5 MG TABLET PO PRN (22:16)
[2019-07-30] MEDS: ATORVASTATIN CA 10 MG TABLET (FP) PO SCH (22:16)
[2019-07-30] MEDS: INSULIN (LEVEMIR) 100 UNITS/ML UNITS SQ SCH (22:16)
[2019-07-30] MEDS: ACETAMINOPHEN 325 MG TABLET (FP) PO PRN (23:25)
[2019-07-31] MEDS: methylPREDNISolone NA SUCC 40 MG/1 ML VIAL IVPUSH SCH ×4 (03:53→22:12)
[2019-07-31] MEDS: ACETAMINOPHEN 325 MG TABLET (FP) PO PRN ×2 (05:41→23:37)
[2019-07-31] MEDS: INSULIN SLIDING SCALE (NOVOLOG) 1 VIAL SQ SCH ×4 (06:00→22:15)
[2019-07-31 07:52] LABS: BASO % 0.3 % (0-2.0); HEMATOCRIT 29.7 % (32.4-45.2); HEMOGLOBIN 9.9 GM/dL (10.7-15.3); LYMPH % 15.3 % (8-40); MCH 31.7 pg (25.7-33.7); MCHC 33.1 g/dl (32.0-36.0); MEAN CELL VOLUME 95.7 fl (80-96); MEAN PLT VOLUME 7.5 fl (7.5-11.1); MONO % 7.8 % (3.8-10.2); NEUT % 76.6 % (42.8-82.8); PLATELET COUNT 249 K/MM3 (134-434); RBC 3.11 M/mm3 (3.60-5.2); RDW 13.7 % (11.6-15.6); WHITE BLOOD COUNT 9.8 K/mm3 (4.0-10.0)
[2019-07-31] MEDS: LEVALBUTEROL HCL 0.63 MG/3 ML VIAL.NEB. IH SCH ×3 (08:10→19:47)
[2019-07-31 08:17] LABS: ALBUMIN 2.7 g/dl (3.4-5.0); BILIRUBIN,TOTAL 0.4 mg/dL (0.2-1); BLOOD UREA NITROGEN 30.2 mg/dL (7-18); CALCIUM 8.2 mg/dL (8.5-10.1); CREATININE 1.3 mg/dL (0.55-1.3); MAGNESIUM 2.3 mg/dL (1.8-2.4); POTASSIUM 3.9 mmol/L (3.5-5.1); TOT PROT 6.7 g/dl (6.4-8.2)
[2019-07-31] MEDS ORDERED: PT OWN MED DRAWER 7, Y5N ONE ×2 (09:09→10:43)
[2019-07-31 09:30] LABS: MACROCYTOSIS 1+; PLATELET ESTIMATE NORMAL
[2019-07-31] MEDS: amLODIPine BESYLATE 2.5 MG TABLET (FP) PO SCH (09:56)
[2019-07-31] MEDS: PANTOPRAZOLE 40 MG TABLET (FP) PO SCH (09:56)
[2019-07-31] MEDS: DOXYCYCLINE HYCLATE 100 MG CAPSULE PO SCH ×2 (09:56→17:08)
[2019-07-31] MEDS: TIOTROPIUM BROMIDE 2.5 MCG (SPIRIVA) RESPIMAT INHALER IH SCH (09:57)
[2019-07-31] MEDS: BUDESONIDE/FORMETEROL FUMARATE 160/4.5 mcg INHALER IH SCH ×2 (09:57→22:16)
[2019-07-31] MEDS: RITONAVIR 100 MG TABLET PO SCH (10:44)
[2019-07-31] MEDS: lamiVUDine 150 MG TABLET PO SCH (10:44)
[2019-07-31] MEDS: ABACAVIR SULFATE 300 MG TABLET PO SCH (10:44)
[2019-07-31] MEDS: DARUNAVIR ETHANOLATE 800 MG TAB PO SCH (10:45)
--- NOTE | 2019-07-31 11:45 | PN ---
Progress Note (short form) - Note Progress Note: s: no chest pain, palps, dizziness. feels tired, more short of breath today Current Medications Abacavir Sulfate (Ziagen -) 600 mg PO DAILY [facility] Last Admin: 07/31/19 10:44 Dose: 600 mg Acetaminophen (Tylenol -) 650 mg PO Q6H PRN PRN Reason: PAIN LEVEL 1-5 Last Admin: 07/31/19 05:41 Dose: 650 mg Al Hydroxide/Mg Hydroxide (Mylanta Oral Suspension -) 30 ml PO Q6H PRN PRN Reason: DYSPEPSIA Last Admin: 07/29/19 12:47 Dose: 30 ml Albuterol Sulfate (Ventolin 0.083% Nebulizer Soln -) 1 amp NEB Q4H PRN PRN Reason: SHORT OF BREATH/WHEEZING Last Admin: 07/30/19 08:00 Dose: 1 amp Amlodipine Besylate (Norvasc -) 2.5 mg PO DAILY [facility] Last Admin: 07/31/19 09:56 Dose: 2.5 mg Atorvastatin Calcium (Lipitor -) 10 mg PO HS [facility] Last Admin: 07/30/19 22:16 Dose: 10 mg Budesonide/Formoterol Fumarate (Symbicort 160/4.5mcg -) 2 puff IH BID [facility] Last Admin: 07/31/19 09:57 Dose: 2 puff Darunavir (Prezista -) 800 mg PO DAILY [facility] Last Admin: 07/31/19 10:45 Dose: 800 mg Doxycycline Hyclate (Vibramycin -) 100 mg PO BID@1000,1800 [facility] Last Admin: 07/31/19 09:56 Dose: 100 mg Guaifenesin (Robitussin Dm -) 10 ml PO Q6H PRN PRN Reason: COUGH Insulin Aspart (Novolog Vial Sliding Scale -) 1 vial SQ [facility]; Protocol Last Admin: 07/31/19 11:32 Dose: 4 unit Insulin Detemir (Levemir Vial) 5 units SQ HS [facility] Last Admin: 07/30/19 22:16 Dose: 5 units Lamivudine (Epivir -) 300 mg PO DAILY [facility] Last Admin: 07/31/19 10:44 Dose: 300 mg Levalbuterol HCl (Xopenex) 0.63 mg IH RTID [facility] Last Admin: 07/31/19 08:10 Dose: 0.63 mg Methylprednisolone Sodium Succinate (Solu-Medrol -) 60 mg IVPUSH Q6H-IV [facility] Last Admin: 07/31/19 10:34 Dose: 60 mg Mirtazapine (Remeron -) 15 mg PO HS [facility] Last Admin: 07/30/19 22:16 Dose: 15 mg Pantoprazole Sodium (Protonix -) 40 mg PO DAILY [facility] Last Admin: 07/31/19 09:56 Dose: 40 mg Ritonavir (Norvir -) 100 mg PO DAILY [facility] Last Admin: 07/31/19 10:44 Dose: 100 mg Sodium Chloride (Normal Saline For Inhalation -) 3 ml IH Q6H PRN PRN Reason: WHEEZING Tiotropium [place] (Spiriva Respimat) 2 puff IH DAILY [facility] Last Admin: 07/31/19 09:57 Dose: 2 puff Zolpidem Tartrate (Ambien -) 5 mg PO HS PRN PRN Reason: INSOMNIA Last Admin: 07/30/19 22:16 Dose: 5 mg Vital Signs Period Temp Pulse Resp BP Sys/[place] Pulse Ox Last 24 Hr 97.6 F-98.4 F 98-129 18-20 132-157/80-107 94-95 Constitutional: Yes: No Distress Cardiovascular: Yes: Regular Rate and Rhythm, Tachycardia Respiratory: Yes: Other (diffuse expiratory wheezes) Gastrointestinal: Yes: Soft Edema: trace edema Neurological: Yes: Alert, Oriented no jaundice, diaphoresis not agitated - ....Imaging EKG: Image Reviewed Assessment/Plan cta chest: no pe, no chf tele: sr/ sinus tachy, artifact ecg: sr, nl intervals, IRBBB, no st changes echo 07/2019: mild lvf, nl lvef, nl rv, no sig valve path a/p: 64 f hx copd, hiv here with sob. sob, copd: -still wheezing, cont treatment per pulm -echo unremarkable -no signs acs sinus tachy: -likely 2/2 to pulm issues, steroids -echo benign, CTA negative ?vt: -tele reviewed, artifact present, no vt/vf abnl ecg: -ecg with IRBBB. echo benign. no signs of acute cardiac issues. likely IRBBB related to acute pulm dz.
--- NOTE | 2019-07-31 13:37 | PN ---
Progress Note (short form) - Note Progress Note: PULMONARY Still short of breath, cough, chest tightness, wheezing but slightly better than yesterday. Vital Signs Period Temp Pulse Resp BP Sys/[place] Pulse Ox Last 24 Hr 97.6 F-98.4 F 98-129 18-20 132-162/80-107 94-95 Gen: less tachypneic with speaking Heart: RRR Lung: bilateral rhonchi, wheezes Abd: soft, nontender Ext: no edema CBC, BMP 07/31/19 06:20 07/31/19 06:20 Active Medications Abacavir Sulfate (Ziagen -) 600 mg PO DAILY [facility] Last Admin: 07/31/19 10:44 Dose: 600 mg Acetaminophen (Tylenol -) 650 mg PO Q6H PRN PRN Reason: PAIN LEVEL 1-5 Last Admin: 07/31/19 05:41 Dose: 650 mg Al Hydroxide/Mg Hydroxide (Mylanta Oral Suspension -) 30 ml PO Q6H PRN PRN Reason: DYSPEPSIA Last Admin: 07/29/19 12:47 Dose: 30 ml Albuterol Sulfate (Ventolin 0.083% Nebulizer Soln -) 1 amp NEB Q4H PRN PRN Reason: SHORT OF BREATH/WHEEZING Last Admin: 07/30/19 08:00 Dose: 1 amp Amlodipine Besylate (Norvasc -) 2.5 mg PO DAILY [facility] Last Admin: 07/31/19 09:56 Dose: 2.5 mg Atorvastatin Calcium (Lipitor -) 10 mg PO HS [facility] Last Admin: 07/30/19 22:16 Dose: 10 mg Budesonide/Formoterol Fumarate (Symbicort 160/4.5mcg -) 2 puff IH BID [facility] Last Admin: 07/31/19 09:57 Dose: 2 puff Darunavir (Prezista -) 800 mg PO DAILY [facility] Last Admin: 07/31/19 10:45 Dose: 800 mg Doxycycline Hyclate (Vibramycin -) 100 mg PO BID@1000,1800 [facility] Last Admin: 07/31/19 09:56 Dose: 100 mg Guaifenesin (Robitussin Dm -) 10 ml PO Q6H PRN PRN Reason: COUGH Insulin Aspart (Novolog Vial Sliding Scale -) 1 vial SQ ACHS [facility]; Protocol Last Admin: 07/31/19 11:32 Dose: 4 unit Insulin Detemir (Levemir Vial) 5 units SQ HS [facility] Last Admin: 07/30/19 22:16 Dose: 5 units Lamivudine (Epivir -) 300 mg PO DAILY [facility] Last Admin: 07/31/19 10:44 Dose: 300 mg Levalbuterol HCl (Xopenex) 0.63 mg IH RTID [facility] Last Admin: 07/31/19 08:10 Dose: 0.63 mg Methylprednisolone Sodium Succinate (Solu-Medrol -) 60 mg IVPUSH Q6H-IV [facility] Last Admin: 07/31/19 10:34 Dose: 60 mg Mirtazapine (Remeron -) 15 mg PO HS [facility] Last Admin: 07/30/19 22:16 Dose: 15 mg Pantoprazole Sodium (Protonix -) 40 mg PO DAILY [facility] Last Admin: 07/31/19 09:56 Dose: 40 mg Ritonavir (Norvir -) 100 mg PO DAILY [facility] Last Admin: 07/31/19 10:44 Dose: 100 mg Sodium Chloride (Normal Saline For Inhalation -) 3 ml IH Q6H PRN PRN Reason: WHEEZING Tiotropium [place] (Spiriva Respimat) 2 puff IH DAILY [facility] Last Admin: 07/31/19 09:57 Dose: 2 puff Zolpidem Tartrate (Ambien -) 5 mg PO HS PRN PRN Reason: INSOMNIA Last Admin: 07/30/19 22:16 Dose: 5 mg A/P Acute COPD Exacerbation Acute Bronchitis HIV Smoker - continue medrol 60mg q6h - inhaled bronchodilators standing and PRN - O2 to keep SpO2 >90% - antibiotics - DVT prophylaxis
--- NOTE | 2019-07-31 13:40 | PN ---
Physical Exam: SUBJECTIVE: Patient seen and examined. She feels like her breathing is improving. She says her ankles are now swollen. She denies ankle/calf pain. OBJECTIVE: Vital Signs Period Temp Pulse Resp BP Sys/Inman Pulse Ox Last 24 Hr 97.6 F-98.4 F 98-129 18-20 132-162/80-107 94-95 GENERAL: The patient is awake, alert, and fully oriented, in no acute distress. LUNGS: Breath sounds equal, bilateral wheezes, no crackles, no accessory muscle use. HEART: Regular rhythm, S1, S2, tachycardic without murmur, rub or gallop. ABDOMEN: Soft, nontender, nondistended, normoactive bowel sounds, no guarding, no rebound, no hepatosplenomegaly, no masses. EXTREMITIES: 2+ pulses, warm, well-perfused, trace edema of both ankles, no calf tenderness. Laboratory Results - last 24 hr 07/30/19 07/30/19 07/31/19 17:07 22:14 05:02 WBC RBC Hgb Hct MCV MCH MCHC RDW Plt Count MPV Absolute Neuts (auto) Neutrophils % Neutrophils % (Manual) Band Neutrophils % Lymphocytes % Lymphocytes % (Manual) Monocytes % Monocytes % (Manual) Eosinophils % Eosinophils % (Manual) Basophils % Basophils % (Manual) Myelocytes % (Man) Promyelocytes % (Man) Blast Cells % (Manual) Nucleated RBC % Metamyelocytes Platelet Estimate Polychromasia Macrocytosis Sodium Potassium Chloride Carbon Dioxide Anion Gap BUN Creatinine Est GFR (CKD-EPI)AfAm Est GFR (CKD-EPI)NonAf POC Glucometer 230 320 170 Random Glucose Calcium Magnesium Total Bilirubin AST ALT Alkaline Phosphatase Total Protein Albumin Free T4 07/31/19 07/31/19 07/31/19 06:20 06:20 11:00 WBC 9.8 RBC 3.11 L Hgb 9.9 L Hct 29.7 L MCV 95.7 MCH 31.7 MCHC 33.1 RDW 13.7 Plt Count 249 MPV 7.5 Absolute Neuts (auto) 7.5 Neutrophils % 76.6 Neutrophils % (Manual) 70.5 Band Neutrophils % 2.1 Lymphocytes % 15.3 Lymphocytes % (Manual) 12.6 D Monocytes % 7.8 Monocytes % (Manual) 8 Eosinophils % 0.0 Eosinophils % (Manual) 0.0 D Basophils % 0.3 Basophils % (Manual) 0.0 Myelocytes % (Man) 3 H D Promyelocytes % (Man) 0 Blast Cells % (Manual) 0 Nucleated RBC % 3 H Metamyelocytes 0 D Platelet Estimate Normal Polychromasia 1+ Macrocytosis 1+ Sodium 141 Potassium 3.9 Chloride 107 Carbon Dioxide 25 Anion Gap 9 BUN 30.2 H Creatinine 1.3 Est GFR (CKD-EPI)AfAm 50.56 Est GFR (CKD-EPI)NonAf 43.62 POC Glucometer 247 Random Glucose 152 H Calcium 8.2 L Magnesium 2.3 Total Bilirubin 0.4 AST 43 H ALT 110 H Alkaline Phosphatase 78 Total Protein 6.7 Albumin 2.7 L Free T4 0.81 Active Medications Generic Name Dose Route Start Last Admin Trade Name Freq PRN Reason Stop Dose Admin Abacavir Sulfate 600 mg 07/26/19 10:00 07/31/19 10:44 Ziagen - PO 600 mg DAILY SHERI Administration Acetaminophen 650 mg 07/25/19 23:05 07/31/19 05:41 Tylenol - PO 650 mg Q6H PRN Administration PAIN LEVEL 1-5 Al Hydroxide/Mg Hydroxide 30 ml 07/29/19 12:13 07/29/19 12:47 Mylanta Oral Suspension - PO 30 ml Q6H PRN Administration DYSPEPSIA Albuterol Sulfate 1 amp 07/29/19 13:05 07/30/19 08:00 Ventolin 0.083% Nebulizer Soln - NEB 1 amp Q4H PRN Administration SHORT OF BREATH/WHEEZING Amlodipine Besylate 2.5 mg 07/29/19 15:30 07/31/19 09:56 Norvasc - PO 2.5 mg DAILY SHERI Administration Atorvastatin Calcium 10 mg 07/26/19 22:00 07/30/19 22:16 Lipitor - PO 10 mg HS SHERI Administration Budesonide/Formoterol Fumarate 2 puff 07/30/19 13:30 07/31/19 09:57 Symbicort 160/4.5mcg - IH 2 puff BID SHERI Administration Darunavir 800 mg 07/26/19 10:00 07/31/19 10:45 Prezista - PO 800 mg DAILY SHERI Administration Doxycycline Hyclate 100 mg 07/29/19 18:00 07/31/19 09:56 Vibramycin - PO 100 mg BID@1000,1800 SHERI Administration Guaifenesin 10 ml 07/27/19 18:30 Robitussin Dm - PO Q6H PRN COUGH Insulin Aspart 1 vial 07/28/19 11:00 07/31/19 11:32 Novolog Vial Sliding Scale - SQ 4 unit ACHS SHERI Administration Protocol Insulin Detemir 5 units 07/29/19 22:00 07/30/19 22:16 Levemir Vial SQ 5 units HS SHERI Administration Lamivudine 300 mg 07/26/19 10:00 07/31/19 10:44 Epivir - PO 300 mg DAILY SHERI Administration Levalbuterol HCl 0.63 mg 07/30/19 13:30 07/31/19 08:10 Xopenex IH 0.63 mg RTID SHERI Administration Methylprednisolone Sodium Succinate 60 mg 07/30/19 13:23 07/31/19 10:34 Solu-Medrol - IVPUSH 60 mg Q6H-IV SHERI Administration Mirtazapine 15 mg 07/26/19 22:00 07/30/19 22:16 Remeron - PO 15 mg HS SHERI Administration Pantoprazole Sodium 40 mg 07/28/19 16:30 07/31/19 09:56 Protonix - PO 40 mg DAILY SHERI Administration Ritonavir 100 mg 07/26/19 10:00 07/31/19 10:44 Norvir - PO 100 mg DAILY SHERI Administration Sodium Chloride 3 ml 07/27/19 18:31 Normal Saline For Inhalation - IH Q6H PRN WHEEZING Tiotropium [place] 2 puff 07/29/19 13:15 07/31/19 09:57 Spiriva Respimat IH 2 puff DAILY SHERI Administration Zolpidem Tartrate 5 mg 07/28/19 21:26 07/30/19 22:16 Ambien - PO 5 mg HS PRN Administration INSOMNIA ASSESSMENT/PLAN: This is a 64 year old woman with a history of HIV, anorexia, COPD who presented to the ED from the [facility] with shortness of breath. 1. Acute exacerbation of COPD secondary to acute bronchitis - Continue SoluMedrol at same dose - Continue Symbicort, Spiriva, Xopenex, albuterol as needed, doxycycline - Oxygen to maintain saturation >90% 2. Hypertension - Continue Norvasc 3. Anorexia nervosa 4. HIV - Continue Prezista, Epivir, Norvir, Ziagen 5. Ankle swelling - Possible secondary to Norvasc, steroids - Patient does not want imaging at this time Visit type - Emergency Visit Emergency Visit: Yes ED Registration Date: 07/25/19 Care time: The patient presented to the Emergency Department on the above date and was hospitalized for further evaluation of their emergent condition. - New Patient This patient is new to me today: No - Critical Care Critical Care patient: No - Discharge Referral Referred to [facility] Med P.C.: No
[2019-07-31] MEDS: MIRTAZAPINE 15 MG TABLET (FP) PO SCH (22:11)
[2019-07-31] MEDS: ZOLPIDEM TARTRATE 5 MG TABLET PO PRN (22:11)
[2019-07-31] MEDS: ATORVASTATIN CA 10 MG TABLET (FP) PO SCH (22:11)
[2019-07-31] MEDS: INSULIN (LEVEMIR) 100 UNITS/ML UNITS SQ SCH (22:15)
[2019-08-01] MEDS ORDERED: traMADol HCL 50 MG TABLET PO ONE (00:56)
[2019-08-01] MEDS: methylPREDNISolone NA SUCC 40 MG/1 ML VIAL IVPUSH SCH ×4 (04:00→21:07)
[2019-08-01] MEDS: INSULIN SLIDING SCALE (NOVOLOG) 1 VIAL SQ SCH ×4 (06:37→21:08)
[2019-08-01] MEDS: LEVALBUTEROL HCL 0.63 MG/3 ML VIAL.NEB. IH SCH ×3 (07:35→20:28)
[2019-08-01 07:38] LABS: BASO % 0.3 % (0-2.0); HEMATOCRIT 33.4 % (32.4-45.2); HEMOGLOBIN 11.2 GM/dL (10.7-15.3); LYMPH % 11.9 % (8-40); MCHC 33.6 g/dl (32.0-36.0); MEAN CELL VOLUME 95.2 fl (80-96); MEAN PLT VOLUME 7.5 fl (7.5-11.1); MONO % 6.8 % (3.8-10.2); PLATELET COUNT 284 K/MM3 (134-434); RBC 3.51 M/mm3 (3.60-5.2); WHITE BLOOD COUNT 10.5 K/mm3 (4.0-10.0)
[2019-08-01 08:02] LABS: ALBUMIN 3.2 g/dl (3.4-5.0); BILIRUBIN,TOTAL 0.6 mg/dL (0.2-1); BLOOD UREA NITROGEN 27.3 mg/dL (7-18); CREATININE 1.3 mg/dL (0.55-1.3); MAGNESIUM 2.5 mg/dL (1.8-2.4); POTASSIUM 3.7 mmol/L (3.5-5.1); TOT PROT 7.4 g/dl (6.4-8.2)
--- NOTE | 2019-08-01 08:56 | PN ---
Physical Exam: SUBJECTIVE: Patient seen and examined. She complains of leg swelling. OBJECTIVE: Vital Signs Period Temp Pulse Resp BP Sys/Inman Pulse Ox Last 24 Hr 97.6 F-98.4 F 110-123 18-20 150-173/88-100 98 GENERAL: The patient is awake, alert, and fully oriented, in no acute distress. LUNGS: Breath sounds equal, few wheezes, no crackles, no accessory muscle use. HEART: Regular rhythm, S1, S2, tachycardic without murmur, rub or gallop. ABDOMEN: Soft, nontender, nondistended, normoactive bowel sounds, no guarding, no rebound, no hepatosplenomegaly, no masses. EXTREMITIES: 2+ pulses, warm, well-perfused, bilateral trace pedal edema extending to just above ankles. Laboratory Results - last 24 hr 07/31/19 07/31/19 07/31/19 06:20 11:00 16:47 WBC RBC Hgb Hct MCV MCH MCHC RDW Plt Count MPV Absolute Neuts (auto) Neutrophils % Neutrophils % (Manual) 70.5 Band Neutrophils % 2.1 Lymphocytes % Lymphocytes % (Manual) 12.6 D Monocytes % Monocytes % (Manual) 8 Eosinophils % Eosinophils % (Manual) 0.0 D Basophils % Basophils % (Manual) 0.0 Myelocytes % (Man) 3 H D Promyelocytes % (Man) 0 Blast Cells % (Manual) 0 Nucleated RBC % Metamyelocytes 0 D Platelet Estimate Normal Polychromasia 1+ Macrocytosis 1+ Sodium Potassium Chloride Carbon Dioxide Anion Gap BUN Creatinine Est GFR (CKD-EPI)AfAm Est GFR (CKD-EPI)NonAf POC Glucometer 247 328 Random Glucose Calcium Magnesium Total Bilirubin AST ALT Alkaline Phosphatase Total Protein Albumin 07/31/19 08/01/19 08/01/19 22:10 06:15 06:15 WBC 10.5 H RBC 3.51 L Hgb 11.2 Hct 33.4 MCV 95.2 MCH 32.0 MCHC 33.6 RDW 14.0 Plt Count 284 MPV 7.5 Absolute Neuts (auto) 8.5 H Neutrophils % 81.0 Neutrophils % (Manual) Band Neutrophils % Lymphocytes % 11.9 D Lymphocytes % (Manual) Monocytes % 6.8 Monocytes % (Manual) Eosinophils % 0.0 Eosinophils % (Manual) Basophils % 0.3 Basophils % (Manual) Myelocytes % (Man) Promyelocytes % (Man) Blast Cells % (Manual) Nucleated RBC % 3 H Metamyelocytes Platelet Estimate Polychromasia Macrocytosis Sodium 138 Potassium 3.7 Chloride 104 Carbon Dioxide 26 Anion Gap 8 BUN 27.3 H Creatinine 1.3 Est GFR (CKD-EPI)AfAm 50.56 Est GFR (CKD-EPI)NonAf 43.62 POC Glucometer 282 Random Glucose 181 H Calcium 8.0 L Magnesium 2.5 H Total Bilirubin 0.6 AST 69 H ALT 179 H Alkaline Phosphatase 100 Total Protein 7.4 Albumin 3.2 L 08/01/19 06:18 WBC RBC Hgb Hct MCV MCH MCHC RDW Plt Count MPV Absolute Neuts (auto) Neutrophils % Neutrophils % (Manual) Band Neutrophils % Lymphocytes % Lymphocytes % (Manual) Monocytes % Monocytes % (Manual) Eosinophils % Eosinophils % (Manual) Basophils % Basophils % (Manual) Myelocytes % (Man) Promyelocytes % (Man) Blast Cells % (Manual) Nucleated RBC % Metamyelocytes Platelet Estimate Polychromasia Macrocytosis Sodium Potassium Chloride Carbon Dioxide Anion Gap BUN Creatinine Est GFR (CKD-EPI)AfAm Est GFR (CKD-EPI)NonAf POC Glucometer 176 Random Glucose Calcium Magnesium Total Bilirubin AST ALT Alkaline Phosphatase Total Protein Albumin Active Medications Generic Name Dose Route Start Last Admin Trade Name Freq PRN Reason Stop Dose Admin Abacavir Sulfate 600 mg 07/26/19 10:00 07/31/19 10:44 Ziagen - PO 600 mg DAILY SHERI Administration Acetaminophen 650 mg 07/25/19 23:05 07/31/19 23:37 Tylenol - PO 650 mg Q6H PRN Administration PAIN LEVEL 1-5 Al Hydroxide/Mg Hydroxide 30 ml 07/29/19 12:13 07/29/19 12:47 Mylanta Oral Suspension - PO 30 ml Q6H PRN Administration DYSPEPSIA Albuterol Sulfate 1 amp 07/29/19 13:05 07/30/19 08:00 Ventolin 0.083% Nebulizer Soln - NEB 1 amp Q4H PRN Administration SHORT OF BREATH/WHEEZING Amlodipine Besylate 2.5 mg 07/29/19 15:30 07/31/19 09:56 Norvasc - PO 2.5 mg DAILY SHERI Administration Atorvastatin Calcium 10 mg 07/26/19 22:00 07/31/19 22:11 Lipitor - PO 10 mg HS SHERI Administration Budesonide/Formoterol Fumarate 2 puff 07/30/19 13:30 07/31/19 22:16 Symbicort 160/4.5mcg - IH 2 puff BID SHERI Administration Darunavir 800 mg 07/26/19 10:00 07/31/19 10:45 Prezista - PO 800 mg DAILY SHERI Administration Doxycycline Hyclate 100 mg 07/29/19 18:00 07/31/19 17:08 Vibramycin - PO 100 mg BID@1000,1800 SHERI Administration Guaifenesin 10 ml 07/27/19 18:30 Robitussin Dm - PO Q6H PRN COUGH Insulin Aspart 1 vial 07/28/19 11:00 08/01/19 06:37 Novolog Vial Sliding Scale - SQ 2 unit ACHS SHERI Administration Protocol Insulin Detemir 10 units 07/31/19 22:00 07/31/19 22:15 Levemir Vial SQ 10 units HS SHERI Administration Lamivudine 300 mg 07/26/19 10:00 07/31/19 10:44 Epivir - PO 300 mg DAILY SHERI Administration Levalbuterol HCl 0.63 mg 07/30/19 13:30 08/01/19 07:35 Xopenex IH 0.63 mg RTID SHERI Administration Methylprednisolone Sodium Succinate 60 mg 07/30/19 13:23 08/01/19 04:00 Solu-Medrol - IVPUSH 60 mg Q6H-IV SHERI Administration Mirtazapine 15 mg 07/26/19 22:00 07/31/19 22:11 Remeron - PO 15 mg HS SHERI Administration Pantoprazole Sodium 40 mg 07/28/19 16:30 07/31/19 09:56 Protonix - PO 40 mg DAILY SHERI Administration Ritonavir 100 mg 07/26/19 10:00 07/31/19 10:44 Norvir - PO 100 mg DAILY SHERI Administration Sodium Chloride 3 ml 07/27/19 18:31 Normal Saline For Inhalation - IH Q6H PRN WHEEZING Tiotropium [place] 2 puff 07/29/19 13:15 07/31/19 09:57 Spiriva Respimat IH 2 puff DAILY SHERI Administration Zolpidem Tartrate 5 mg 07/28/19 21:26 07/31/19 22:11 Ambien - PO 5 mg HS PRN Administration INSOMNIA ASSESSMENT/PLAN: This is a 64 year old woman with a history of HIV, anorexia, COPD who presented to the ED from the [facility] with shortness of breath. 1. Acute exacerbation of COPD secondary to acute bronchitis - Continue SoluMedrol, Symbicort, Spiriva, Xopenex, albuterol as needed, doxycycline - Oxygen to maintain saturation >90% 2. Pre-diabetes with steroid-induced hyperglycemia - HbA1c 6.4 - Continue Levemir, Novolog sliding scale 3. Hypertension - Continue Norvasc 4. Anorexia nervosa 5. HIV - Continue Prezista, Epivir, Norvir, Ziagen 6. Pedal edema - Possible secondary to Norvasc, steroids - Venous dopplers negative 07/26 and she does not want to have them repeated at this time Visit type - Emergency Visit Emergency Visit: Yes ED Registration Date: 07/25/19 Care time: The patient presented to the Emergency Department on the above date and was hospitalized for further evaluation of their emergent condition. - New Patient This patient is new to me today: No - Critical Care Critical Care patient: No - Discharge Referral Referred to [facility] Med P.C.: No
[2019-08-01] MEDS ORDERED: PT OWN MED DRAWER 7, Y5N ONE ×2 (09:04→17:20)
[2019-08-01] MEDS: amLODIPine BESYLATE 2.5 MG TABLET (FP) PO SCH (09:10)
[2019-08-01] MEDS: lamiVUDine 150 MG TABLET PO SCH (09:10)
[2019-08-01] MEDS: DARUNAVIR ETHANOLATE 800 MG TAB PO SCH (09:10)
[2019-08-01] MEDS: DOXYCYCLINE HYCLATE 100 MG CAPSULE PO SCH ×2 (09:10→17:04)
[2019-08-01] MEDS: PANTOPRAZOLE 40 MG TABLET (FP) PO SCH (09:10)
[2019-08-01] MEDS: RITONAVIR 100 MG TABLET PO SCH (09:10)
[2019-08-01] MEDS: TIOTROPIUM BROMIDE 2.5 MCG (SPIRIVA) RESPIMAT INHALER IH SCH (09:11)
[2019-08-01] MEDS: BUDESONIDE/FORMETEROL FUMARATE 160/4.5 mcg INHALER IH SCH ×2 (09:11→21:07)
[2019-08-01] MEDS: ABACAVIR SULFATE 300 MG TABLET PO SCH (09:11)
--- NOTE | 2019-08-01 09:24 | PN ---
Progress Note, Physician Chief Complaint: sob History of Present Illness: sob only slightly improved feet swollen, uncomfortable. no cp, palp, syncope - Current Medication List Current Medications: Active Medications Abacavir Sulfate (Ziagen -) 600 mg PO DAILY [facility] Last Admin: 08/01/19 09:11 Dose: 600 mg Acetaminophen (Tylenol -) 650 mg PO Q6H PRN PRN Reason: PAIN LEVEL 1-5 Last Admin: 07/31/19 23:37 Dose: 650 mg Al Hydroxide/Mg Hydroxide (Mylanta Oral Suspension -) 30 ml PO Q6H PRN PRN Reason: DYSPEPSIA Last Admin: 07/29/19 12:47 Dose: 30 ml Albuterol Sulfate (Ventolin 0.083% Nebulizer Soln -) 1 amp NEB Q4H PRN PRN Reason: SHORT OF BREATH/WHEEZING Last Admin: 07/30/19 08:00 Dose: 1 amp Amlodipine Besylate (Norvasc -) 2.5 mg PO DAILY [facility] Last Admin: 08/01/19 09:10 Dose: 2.5 mg Atorvastatin Calcium (Lipitor -) 10 mg PO HS [facility] Last Admin: 07/31/19 22:11 Dose: 10 mg Budesonide/Formoterol Fumarate (Symbicort 160/4.5mcg -) 2 puff IH BID [facility] Last Admin: 08/01/19 09:11 Dose: 2 puff Darunavir (Prezista -) 800 mg PO DAILY [facility] Last Admin: 08/01/19 09:10 Dose: 800 mg Doxycycline Hyclate (Vibramycin -) 100 mg PO BID@1000,1800 [facility] Last Admin: 08/01/19 09:10 Dose: 100 mg Guaifenesin (Robitussin Dm -) 10 ml PO Q6H PRN PRN Reason: COUGH Insulin Aspart (Novolog Vial Sliding Scale -) 1 vial SQ ACHS [facility]; Protocol Last Admin: 08/01/19 06:37 Dose: 2 unit Insulin Detemir (Levemir Vial) 10 units SQ HS [facility] Last Admin: 07/31/19 22:15 Dose: 10 units Lamivudine (Epivir -) 300 mg PO DAILY [facility] Last Admin: 08/01/19 09:10 Dose: 300 mg Levalbuterol HCl (Xopenex) 0.63 mg IH RTID [facility] Last Admin: 08/01/19 07:35 Dose: 0.63 mg Methylprednisolone Sodium Succinate (Solu-Medrol -) 60 mg IVPUSH Q6H-IV SHERI Last Admin: 08/01/19 09:07 Dose: 60 mg Mirtazapine (Remeron -) 15 mg PO HS [facility] Last Admin: 07/31/19 22:11 Dose: 15 mg Pantoprazole Sodium (Protonix -) 40 mg PO DAILY [facility] Last Admin: 08/01/19 09:10 Dose: 40 mg Ritonavir (Norvir -) 100 mg PO DAILY [facility] Last Admin: 08/01/19 09:10 Dose: 100 mg Sodium Chloride (Normal Saline For Inhalation -) 3 ml IH Q6H PRN PRN Reason: WHEEZING Tiotropium [place] (Spiriva Respimat) 2 puff IH DAILY [facility] Last Admin: 08/01/19 09:11 Dose: 2 puff Zolpidem Tartrate (Ambien -) 5 mg PO HS PRN PRN Reason: INSOMNIA Last Admin: 07/31/19 22:11 Dose: 5 mg - Objective Vital Signs: Vital Signs Temperature 97.5 F L 08/01/19 09:06 Pulse Rate 111 H 08/01/19 09:06 Respiratory Rate 19 08/01/19 09:06 Blood Pressure 143/86 08/01/19 09:06 O2 Sat by Pulse Oximetry (%) 98 07/31/19 21:00 Constitutional: Yes: Well Nourished, No Distress, Calm Cardiovascular: Yes: Regular Rate and Rhythm, S1, S2. No: Gallop, Murmur Respiratory: Yes: Regular, Wheezes (R > L lung). No: Accessory Muscle Use, Rales Extremities: No: Cold Edema: Yes (1+ ankles) Neurological: Yes: Alert, Oriented Psychiatric: No: Agitated Labs: CBC, BMP 08/01/19 06:15 08/01/19 06:15 INR, PTT INR Cancelled 07/25/19 11:15 Assessment/Plan cta chest: no pe, no chf tele: sr/ sinus tachy, artifact ecg: sr, nl intervals, IRBBB, no st changes echo 07/2019: mild lvf, nl lvef, nl rv, no sig valve path a/p: 64 f hx copd, hiv here with sob. sob, copd: -still wheezing, cont treatment per pulm -echo unremarkable -no signs acs pedal edema: -sec to steroids -start po lasix while on steroids sinus tachy: -likely 2/2 to pulm issues, steroids +/- b-agonists -echo benign, CTA negative abnl ecg: -ecg with IRBBB. echo benign. no signs of acute cardiac issues. likely IRBBB related to acute pulm dz D/C TELE
[2019-08-01 11:29] LABS: ANISOCYTOSIS 1+; MACROCYTOSIS 1+; PLATELET ESTIMATE NORMAL
--- NOTE | 2019-08-01 11:32 | PN ---
Progress Note (short form) - Note Progress Note: OOB to chair. Still with congested cough, chest tightness, and wheezing. Mild improvement from yesterday. No acute events overnight. Intake & Output 07/29/19 07/30/19 07/31/19 08/01/19 23:59 23:59 23:59 23:59 Intake Total 087 236 1658 120 Output Total 100 Balance 691 484 7194 120 Last Vital Signs Temp Pulse Resp BP Pulse Ox 97.5 F L 111 H 19 143/86 97 08/01/19 09:06 08/01/19 09:06 08/01/19 09:06 08/01/19 09:06 08/01/19 09:00 Active Medications Abacavir Sulfate (Ziagen -) 600 mg PO DAILY [facility] Last Admin: 08/01/19 09:11 Dose: 600 mg Acetaminophen (Tylenol -) 650 mg PO Q6H PRN PRN Reason: PAIN LEVEL 1-5 Last Admin: 07/31/19 23:37 Dose: 650 mg Al Hydroxide/Mg Hydroxide (Mylanta Oral Suspension -) 30 ml PO Q6H PRN PRN Reason: DYSPEPSIA Last Admin: 07/29/19 12:47 Dose: 30 ml Albuterol Sulfate (Ventolin 0.083% Nebulizer Soln -) 1 amp NEB Q4H PRN PRN Reason: SHORT OF BREATH/WHEEZING Last Admin: 07/30/19 08:00 Dose: 1 amp Amlodipine Besylate (Norvasc -) 2.5 mg PO DAILY [facility] Last Admin: 08/01/19 09:10 Dose: 2.5 mg Atorvastatin Calcium (Lipitor -) 10 mg PO HS [facility] Last Admin: 07/31/19 22:11 Dose: 10 mg Budesonide/Formoterol Fumarate (Symbicort 160/4.5mcg -) 2 puff IH BID [facility] Last Admin: 08/01/19 09:11 Dose: 2 puff Darunavir (Prezista -) 800 mg PO DAILY [facility] Last Admin: 08/01/19 09:10 Dose: 800 mg Doxycycline Hyclate (Vibramycin -) 100 mg PO BID@1000,1800 [facility] Last Admin: 08/01/19 09:10 Dose: 100 mg Guaifenesin (Robitussin Dm -) 10 ml PO Q6H PRN PRN Reason: COUGH Insulin Aspart (Novolog Vial Sliding Scale -) 1 vial SQ [facility]; Protocol Last Admin: 08/01/19 06:37 Dose: 2 unit Insulin Detemir (Levemir Vial) 10 units SQ HS [facility] Last Admin: 07/31/19 22:15 Dose: 10 units Lamivudine (Epivir -) 300 mg PO DAILY [facility] Last Admin: 08/01/19 09:10 Dose: 300 mg Levalbuterol HCl (Xopenex) 0.63 mg IH RTID [facility] Last Admin: 08/01/19 07:35 Dose: 0.63 mg Methylprednisolone Sodium Succinate (Solu-Medrol -) 60 mg IVPUSH Q6H-IV [facility] Last Admin: 08/01/19 09:07 Dose: 60 mg Mirtazapine (Remeron -) 15 mg PO HS [facility] Last Admin: 07/31/19 22:11 Dose: 15 mg Pantoprazole Sodium (Protonix -) 40 mg PO DAILY [facility] Last Admin: 08/01/19 09:10 Dose: 40 mg Ritonavir (Norvir -) 100 mg PO DAILY [facility] Last Admin: 08/01/19 09:10 Dose: 100 mg Sodium Chloride (Normal Saline For Inhalation -) 3 ml IH Q6H PRN PRN Reason: WHEEZING Tiotropium [place] (Spiriva Respimat) 2 puff IH DAILY [facility] Last Admin: 08/01/19 09:11 Dose: 2 puff Zolpidem Tartrate (Ambien -) 5 mg PO HS PRN PRN Reason: INSOMNIA Last Admin: 07/31/19 22:11 Dose: 5 mg Gen: Awake and alert, mildly tachypneic with speaking Heart: RRR Lung: bilateral rhonchi, wheezes Abd: soft, nontender Ext: no edema Laboratory Results - last 24 hr 07/31/19 07/31/19 08/01/19 16:47 22:10 06:15 WBC 10.5 H RBC 3.51 L Hgb 11.2 Hct 33.4 MCV 95.2 MCH 32.0 MCHC 33.6 RDW 14.0 Plt Count 284 MPV 7.5 Absolute Neuts (auto) 8.5 H Neutrophils % 81.0 Lymphocytes % 11.9 D Monocytes % 6.8 Eosinophils % 0.0 Basophils % 0.3 Nucleated RBC % 3 H Sodium Potassium Chloride Carbon Dioxide Anion Gap BUN Creatinine Est GFR (CKD-EPI)AfAm Est GFR (CKD-EPI)NonAf POC Glucometer 328 282 Random Glucose Calcium Magnesium Total Bilirubin AST ALT Alkaline Phosphatase Total Protein Albumin 08/01/19 08/01/19 06:15 06:18 WBC RBC Hgb Hct MCV MCH MCHC RDW Plt Count MPV Absolute Neuts (auto) Neutrophils % Lymphocytes % Monocytes % Eosinophils % Basophils % Nucleated RBC % Sodium 138 Potassium 3.7 Chloride 104 Carbon Dioxide 26 Anion Gap 8 BUN 27.3 H Creatinine 1.3 Est GFR (CKD-EPI)AfAm 50.56 Est GFR (CKD-EPI)NonAf 43.62 POC Glucometer 176 Random Glucose 181 H Calcium 8.0 L Magnesium 2.5 H Total Bilirubin 0.6 AST 69 H ALT 179 H Alkaline Phosphatase 100 Total Protein 7.4 Albumin 3.2 L A/P Acute COPD Exacerbation Acute Bronchitis HIV Smoker - continue medrol 60mg q6h - inhaled bronchodilators standing and PRN - O2 to keep SpO2 >90% - antibiotics - DVT prophylaxis Dr Brandon
[2019-08-01] MEDS: ACETAMINOPHEN 325 MG TABLET (FP) PO PRN ×2 (11:49→20:36)
[2019-08-01] MEDS: FUROSEMIDE 40 MG TABLET (FP) PO SCH (13:05)
[2019-08-01] MEDS: ATORVASTATIN CA 10 MG TABLET (FP) PO SCH (21:07)
[2019-08-01] MEDS: MIRTAZAPINE 15 MG TABLET (FP) PO SCH (21:07)
[2019-08-01] MEDS: ZOLPIDEM TARTRATE 5 MG TABLET PO PRN (21:07)
[2019-08-01] MEDS: INSULIN (LEVEMIR) 100 UNITS/ML UNITS SQ SCH (21:11)
[2019-08-02] MEDS: methylPREDNISolone NA SUCC 40 MG/1 ML VIAL IVPUSH SCH ×3 (03:04→22:14)
[2019-08-02] MEDS: INSULIN SLIDING SCALE (NOVOLOG) 1 VIAL SQ SCH ×4 (06:21→23:27)
[2019-08-02 07:10] LABS: BASO % 0.2 % (0-2.0); HEMOGLOBIN 10.1 GM/dL (10.7-15.3); LYMPH % 10.8 % (8-40); MCH 32.7 pg (25.7-33.7); MCHC 33.8 g/dl (32.0-36.0); MEAN CELL VOLUME 96.6 fl (80-96); MEAN PLT VOLUME 7.7 fl (7.5-11.1); MONO % 6.7 % (3.8-10.2); NEUT % 82.3 % (42.8-82.8); PLATELET COUNT 236 K/MM3 (134-434); RDW 14.2 % (11.6-15.6); WHITE BLOOD COUNT 8.6 K/mm3 (4.0-10.0)
[2019-08-02 07:36] LABS: ALBUMIN 2.8 g/dl (3.4-5.0); BILIRUBIN,TOTAL 0.6 mg/dL (0.2-1); BLOOD UREA NITROGEN 31.1 mg/dL (7-18); CALCIUM 7.9 mg/dL (8.5-10.1); CREATININE 1.3 mg/dL (0.55-1.3); MAGNESIUM 2.3 mg/dL (1.8-2.4); POTASSIUM 3.5 mmol/L (3.5-5.1); TOT PROT 6.8 g/dl (6.4-8.2)
[2019-08-02] MEDS: LEVALBUTEROL HCL 0.63 MG/3 ML VIAL.NEB. IH SCH ×3 (08:20→20:50)
[2019-08-02] MEDS: amLODIPine BESYLATE 2.5 MG TABLET (FP) PO SCH (09:44)
[2019-08-02] MEDS: FUROSEMIDE 40 MG TABLET (FP) PO SCH (09:44)
[2019-08-02] MEDS: DOXYCYCLINE HYCLATE 100 MG CAPSULE PO SCH ×2 (09:44→17:24)
[2019-08-02] MEDS: PANTOPRAZOLE 40 MG TABLET (FP) PO SCH (09:44)
[2019-08-02] MEDS: RITONAVIR 100 MG TABLET PO SCH (09:46)
[2019-08-02] MEDS: DARUNAVIR ETHANOLATE 800 MG TAB PO SCH (09:47)
[2019-08-02] MEDS: lamiVUDine 150 MG TABLET PO SCH (09:47)
[2019-08-02] MEDS: TIOTROPIUM BROMIDE 2.5 MCG (SPIRIVA) RESPIMAT INHALER IH SCH (09:48)
[2019-08-02] MEDS: BUDESONIDE/FORMETEROL FUMARATE 160/4.5 mcg INHALER IH SCH ×2 (09:49→23:29)
[2019-08-02 10:16] LABS: MACROCYTOSIS 1+; PLATELET ESTIMATE NORMAL
[2019-08-02] MEDS: ABACAVIR SULFATE 300 MG TABLET PO SCH (10:21)
[2019-08-02] MEDS: ACETAMINOPHEN 325 MG TABLET (FP) PO PRN (10:21)
--- NOTE | 2019-08-02 12:48 | PN ---
Progress Note, Physician History of Present Illness: PULMONARY ALERT,FEELING BETTER,LESS CONGESTED,LESS COUGH,+ C/O RLE DISCOMFORT - Current Medication List Current Medications: Active Medications Abacavir Sulfate (Ziagen -) 600 mg PO DAILY [facility] Last Admin: 08/02/19 10:21 Dose: 600 mg Acetaminophen (Tylenol -) 650 mg PO Q6H PRN PRN Reason: PAIN LEVEL 1-5 Last Admin: 08/02/19 10:21 Dose: 650 mg Al Hydroxide/Mg Hydroxide (Mylanta Oral Suspension -) 30 ml PO Q6H PRN PRN Reason: DYSPEPSIA Last Admin: 07/29/19 12:47 Dose: 30 ml Albuterol Sulfate (Ventolin 0.083% Nebulizer Soln -) 1 amp NEB Q4H PRN PRN Reason: SHORT OF BREATH/WHEEZING Last Admin: 07/30/19 08:00 Dose: 1 amp Amlodipine Besylate (Norvasc -) 2.5 mg PO DAILY [facility] Last Admin: 08/02/19 09:44 Dose: 2.5 mg Atorvastatin Calcium (Lipitor -) 10 mg PO HS [facility] Last Admin: 08/01/19 21:07 Dose: 10 mg Budesonide/Formoterol Fumarate (Symbicort 160/4.5mcg -) 2 puff IH BID [facility] Last Admin: 08/02/19 09:49 Dose: 2 puff Darunavir (Prezista -) 800 mg PO DAILY [facility] Last Admin: 08/02/19 09:47 Dose: 800 mg Doxycycline Hyclate (Vibramycin -) 100 mg PO BID@1000,1800 [facility] Last Admin: 08/02/19 09:44 Dose: 100 mg Furosemide (Lasix -) 40 mg PO DAILY [facility] Last Admin: 08/02/19 09:44 Dose: 40 mg Guaifenesin (Robitussin Dm -) 10 ml PO Q6H PRN PRN Reason: COUGH Last Admin: 08/02/19 03:05 Dose: 10 ml Insulin Aspart (Novolog Vial Sliding Scale -) 1 vial SQ [facility]; Protocol Last Admin: 08/02/19 11:32 Dose: 6 units Insulin Detemir (Levemir Vial) 10 units SQ [facility] Last Admin: 08/01/19 21:11 Dose: 10 units Lamivudine (Epivir -) 300 mg PO DAILY [facility] Last Admin: 08/02/19 09:47 Dose: 300 mg Levalbuterol HCl (Xopenex) 0.63 mg IH RTID [facility] Last Admin: 08/02/19 08:20 Dose: 0.63 mg Methylprednisolone Sodium Succinate (Solu-Medrol -) 60 mg IVPUSH Q6H-IV [facility] Last Admin: 08/02/19 09:43 Dose: 60 mg Mirtazapine (Remeron -) 15 mg PO HS [facility] Last Admin: 08/01/19 21:07 Dose: 15 mg Pantoprazole Sodium (Protonix -) 40 mg PO DAILY [facility] Last Admin: 08/02/19 09:44 Dose: 40 mg Ritonavir (Norvir -) 100 mg PO DAILY [facility] Last Admin: 08/02/19 09:46 Dose: 100 mg Sodium Chloride (Normal Saline For Inhalation -) 3 ml IH Q6H PRN PRN Reason: WHEEZING Tiotropium [place] (Spiriva Respimat) 2 puff IH DAILY [facility] Last Admin: 08/02/19 09:48 Dose: 2 puff Zolpidem Tartrate (Ambien -) 5 mg PO HS PRN PRN Reason: INSOMNIA Last Admin: 08/01/19 21:07 Dose: 5 mg - Objective Vital Signs: Vital Signs Temperature 98.0 F 08/02/19 06:00 Pulse Rate 109 H 08/02/19 08:26 Respiratory Rate 18 08/02/19 08:26 Blood Pressure 167/97 08/02/19 08:26 O2 Sat by Pulse Oximetry (%) 95 08/02/19 09:00 Constitutional: Yes: Well Nourished, Calm Eyes: Yes: WNL HENT: Yes: WNL Neck: Yes: WNL Cardiovascular: Yes: Regular Rate and Rhythm, S1, S2 Respiratory: Yes: Wheezes (FEW WHEEZES) Gastrointestinal: Yes: Normal Bowel Sounds, Soft Extremities: Yes: WNL Edema: Yes (R>L) Labs: CBC, BMP 08/02/19 05:35 08/02/19 05:35 INR, PTT INR Cancelled 07/25/19 11:15 Problem List - Problems (1) COPD exacerbation Code(s): J44.1 - CHRONIC OBSTRUCTIVE PULMONARY DISEASE W (ACUTE) EXACERBATION (2) HIV (human immunodeficiency virus infection) Code(s): B20 - HUMAN IMMUNODEFICIENCY VIRUS [HIV] DISEASE (3) Anorexia Code(s): R63.0 - ANOREXIA (4) Weight gain Code(s): R63.5 - ABNORMAL WEIGHT GAIN Assessment/Plan IMP DYSPNEA IMPROVING COPD EXACERBATION IMPROVING HIV H/O ANOREXIA SMOKER PLAN IV STEROIDS TAPER INHALED BRONCHODILATORS XOPENEX O2 ABX PFTS OUTPATIENT SMOKING CESSATION COUNSELED DUPLEX LOWER EXT Problem List - Problems (1) COPD exacerbation Code(s): J44.1 - CHRONIC OBSTRUCTIVE PULMONARY DISEASE W (ACUTE) EXACERBATION (2) HIV (human immunodeficiency virus infection) Code(s): B20 - HUMAN IMMUNODEFICIENCY VIRUS [HIV] DISEASE (3) Anorexia Code(s): R63.0 - ANOREXIA (4) Weight gain Code(s): R63.5 - ABNORMAL WEIGHT GAIN
--- NOTE | 2019-08-02 12:56 | PN ---
Progress Note (short form) - Note Progress Note: s: worsening edema, not much urine output to PO lasix. No chest pain, palps, dyspnea. cough improving Current Medications Abacavir Sulfate (Ziagen -) 600 mg PO DAILY [facility] Last Admin: 08/02/19 10:21 Dose: 600 mg Acetaminophen (Tylenol -) 650 mg PO Q6H PRN PRN Reason: PAIN LEVEL 1-5 Last Admin: 08/02/19 10:21 Dose: 650 mg Al Hydroxide/Mg Hydroxide (Mylanta Oral Suspension -) 30 ml PO Q6H PRN PRN Reason: DYSPEPSIA Last Admin: 07/29/19 12:47 Dose: 30 ml Albuterol Sulfate (Ventolin 0.083% Nebulizer Soln -) 1 amp NEB Q4H PRN PRN Reason: SHORT OF BREATH/WHEEZING Last Admin: 07/30/19 08:00 Dose: 1 amp Amlodipine Besylate (Norvasc -) 2.5 mg PO DAILY [facility] Last Admin: 08/02/19 09:44 Dose: 2.5 mg Atorvastatin Calcium (Lipitor -) 10 mg PO HS [facility] Last Admin: 08/01/19 21:07 Dose: 10 mg Budesonide/Formoterol Fumarate (Symbicort 160/4.5mcg -) 2 puff IH BID [facility] Last Admin: 08/02/19 09:49 Dose: 2 puff Darunavir (Prezista -) 800 mg PO DAILY [facility] Last Admin: 08/02/19 09:47 Dose: 800 mg Doxycycline Hyclate (Vibramycin -) 100 mg PO BID@1000,1800 [facility] Last Admin: 08/02/19 09:44 Dose: 100 mg Furosemide (Lasix Injection -) 40 mg IVPUSH DAILY [facility] Guaifenesin (Robitussin Dm -) 10 ml PO Q6H PRN PRN Reason: COUGH Last Admin: 08/02/19 03:05 Dose: 10 ml Insulin Aspart (Novolog Vial Sliding Scale -) 1 vial SQ [facility]; Protocol Last Admin: 08/02/19 11:32 Dose: 6 units Insulin Detemir (Levemir Vial) 10 units SQ [facility] Last Admin: 08/01/19 21:11 Dose: 10 units Lamivudine (Epivir -) 300 mg PO DAILY [facility] Last Admin: 08/02/19 09:47 Dose: 300 mg Levalbuterol HCl (Xopenex) 0.63 mg IH RTID [facility] Last Admin: 08/02/19 08:20 Dose: 0.63 mg Methylprednisolone Sodium Succinate (Solu-Medrol -) 60 mg IVPUSH Q8H-IV [facility] Mirtazapine (Remeron -) 15 mg PO HS [facility] Last Admin: 08/01/19 21:07 Dose: 15 mg Pantoprazole Sodium (Protonix -) 40 mg PO DAILY [facility] Last Admin: 08/02/19 09:44 Dose: 40 mg Ritonavir (Norvir -) 100 mg PO DAILY [facility] Last Admin: 08/02/19 09:46 Dose: 100 mg Sodium Chloride (Normal Saline For Inhalation -) 3 ml IH Q6H PRN PRN Reason: WHEEZING Tiotropium [place] (Spiriva Respimat) 2 puff IH DAILY [facility] Last Admin: 08/02/19 09:48 Dose: 2 puff Zolpidem Tartrate (Ambien -) 5 mg PO HS PRN PRN Reason: INSOMNIA Last Admin: 08/01/19 21:07 Dose: 5 mg Vital Signs Period Temp Pulse Resp BP Sys/[place] Pulse Ox Last 24 Hr 98.0 F-98.2 F 98-117 18-20 136-168/88-99 95-96 Constitutional: Yes: Well Nourished, No Distress, Calm Cardiovascular: Yes: Regular Rate and Rhythm, S1, S2. No: Gallop, Murmur Respiratory: Yes: Regular, Wheezes (R > L lung). No: Accessory Muscle Use, Rales Extremities: No: Cold Edema: Yes (1+ ankles) Neurological: Yes: Alert, Oriented Psychiatric: No: Agitated Assessment/Plan cta chest: no pe, no chf ecg: sr, nl intervals, IRBBB, no st changes echo 07/2019: mild lvf, nl lvef, nl rv, no sig valve path a/p: 64 f hx copd, hiv here with sob. sob, copd: -still wheezing, cont treatment per pulm -echo unremarkable -no signs acs pedal edema: -sec to steroids -worsening today, not increased urine output with PO lasix - start IV lasix 40 mg daily for now sinus tachy: -likely 2/2 to pulm issues, steroids +/- b-agonists -echo benign, CTA negative abnl ecg: -ecg with IRBBB. echo benign. no signs of acute cardiac issues. likely IRBBB related to acute pulm dz
[2019-08-02] MEDS: FUROSEMIDE 40 MG/4 ML INJECTABLE VIAL IVPUSH SCH (13:59)
--- NOTE | 2019-08-02 15:22 | PN ---
Physical Exam: SUBJECTIVE: Patient seen and examined at the bedside. tolerating room air. no distress. OBJECTIVE: Patient is a 64 year old female with a significant past medical history of HIV ( follows at the [facility] with Dr. Ivey), anorexia and COPD. Patient presents to the ED today from the [facility] with shortness of breath. wheezing and tachycardia since Thursday. She has not been feeling well for a few days and short of breath despite home inhalers. Patient reports that she was recently at [facility] for apx 3 months for weakness. She reports that she became so anorexic and had to go to rehab as she had poor ambulatory status. She gained apx 110 lbs after being in rehab and was noted to have elevated K levels and was following with nephrology (Dr. Perez) as an outpatient. will decrease solumedrol. Vital Signs Period Temp Pulse Resp BP Sys/[place] Pulse Ox Last 24 Hr 97.9 F-98.2 F 98-117 16-20 136-168/85-99 95-96 GENERAL: The patient is awake, alert, and fully oriented, oxygen stable on room air. HEAD: Normal with no signs of trauma. EYES: PERRL, extraocular movements intact, sclera anicteric, conjunctiva clear. No ptosis. ENT: Ears normal, nares patent, oropharynx clear without exudates, moist mucous membranes. NECK: Trachea midline, full range of motion, supple. LUNGS: scattered wheezing, diminished at bases. bibasalar atelectasis on imaging. ordered incentive spirometer HEART: tachycardia ABDOMEN: Soft, nontender, nondistended, normoactive bowel sounds, no guarding, no rebound, no hepatosplenomegaly, no masses. EXTREMITIES: no edema. NEUROLOGICAL: Normal speech, gait not observed. PSYCH: Normal mood, normal affect. SKIN: Warm, dry, normal turgor, no rashes or lesions noted Laboratory Results - last 24 hr 08/01/19 08/01/19 08/02/19 17:02 20:34 05:35 WBC 8.6 RBC 3.10 L Hgb 10.1 L Hct 30.0 L MCV 96.6 H MCH 32.7 MCHC 33.8 RDW 14.2 Plt Count 236 MPV 7.7 Absolute Neuts (auto) 7.1 Neutrophils % 82.3 Neutrophils % (Manual) 80.8 Band Neutrophils % 3.0 Lymphocytes % 10.8 Lymphocytes % (Manual) 4.0 L D Monocytes % 6.7 Monocytes % (Manual) 5 Eosinophils % 0.0 Eosinophils % (Manual) 0.0 Basophils % 0.2 Basophils % (Manual) 0.0 Myelocytes % (Man) 0 D Promyelocytes % (Man) 0 Blast Cells % (Manual) 0 Nucleated RBC % 2 H Metamyelocytes 0 D Platelet Estimate Normal Polychromasia 1+ Macrocytosis 1+ Sodium Potassium Chloride Carbon Dioxide Anion Gap BUN Creatinine Est GFR (CKD-EPI)AfAm Est GFR (CKD-EPI)NonAf POC Glucometer 176 273 Random Glucose Calcium Magnesium Total Bilirubin AST ALT Alkaline Phosphatase Total Protein Albumin 08/02/19 08/02/19 08/02/19 05:35 05:35 11:29 WBC RBC Hgb Hct MCV MCH MCHC RDW Plt Count MPV Absolute Neuts (auto) Neutrophils % Neutrophils % (Manual) Band Neutrophils % Lymphocytes % Lymphocytes % (Manual) Monocytes % Monocytes % (Manual) Eosinophils % Eosinophils % (Manual) Basophils % Basophils % (Manual) Myelocytes % (Man) Promyelocytes % (Man) Blast Cells % (Manual) Nucleated RBC % Metamyelocytes Platelet Estimate Polychromasia Macrocytosis Sodium 137 Potassium 3.5 Chloride 99 Carbon Dioxide 30 Anion Gap 8 BUN 31.1 H Creatinine 1.3 Est GFR (CKD-EPI)AfAm 50.56 Est GFR (CKD-EPI)NonAf 43.62 POC Glucometer 207 252 Random Glucose 188 H Calcium 7.9 L Magnesium 2.3 Total Bilirubin 0.6 AST 67 H ALT 201 H Alkaline Phosphatase 84 Total Protein 6.8 Albumin 2.8 L Active Medications Generic Name Dose Route Start Last Admin Trade Name Freq PRN Reason Stop Dose Admin Abacavir Sulfate 600 mg 07/26/19 10:00 08/02/19 10:21 Ziagen - PO 600 mg DAILY [facility] Administration Acetaminophen 650 mg 07/25/19 23:05 08/02/19 10:21 Tylenol - PO 650 mg Q6H PRN Administration PAIN LEVEL 1-5 Al Hydroxide/Mg Hydroxide 30 ml 07/29/19 12:13 07/29/19 12:47 Mylanta Oral Suspension - PO 30 ml Q6H PRN Administration DYSPEPSIA Albuterol Sulfate 1 amp 07/29/19 13:05 07/30/19 08:00 Ventolin 0.083% Nebulizer Soln - NEB 1 amp Q4H PRN Administration SHORT OF BREATH/WHEEZING Amlodipine Besylate 2.5 mg 07/29/19 15:30 08/02/19 09:44 Norvasc - PO 2.5 mg DAILY [facility] Administration Atorvastatin Calcium 10 mg 07/26/19 22:00 08/01/19 21:07 Lipitor - PO 10 mg HS [facility] Administration Budesonide/Formoterol Fumarate 2 puff 07/30/19 13:30 08/02/19 09:49 Symbicort 160/4.5mcg - IH 2 puff BID [facility] Administration Darunavir 800 mg 07/26/19 10:00 08/02/19 09:47 Prezista - PO 800 mg DAILY [facility] Administration Doxycycline Hyclate 100 mg 07/29/19 18:00 08/02/19 09:44 Vibramycin - PO 100 mg BID@1000,1800 [facility] Administration Furosemide 40 mg 08/02/19 13:00 08/02/19 13:59 Lasix Injection - IVPUSH 40 mg DAILY [facility] Administration Guaifenesin 10 ml 07/27/19 18:30 08/02/19 03:05 Robitussin Dm - PO 10 ml Q6H PRN Administration COUGH Insulin Aspart 1 vial 07/28/19 11:00 08/02/19 11:32 Novolog Vial Sliding Scale - SQ 6 units ACHS [facility] Administration Protocol Insulin Detemir 10 units 07/31/19 22:00 08/01/19 21:11 Levemir Vial SQ 10 units HS [facility] Administration Lamivudine 300 mg 07/26/19 10:00 08/02/19 09:47 Epivir - PO 300 mg DAILY [facility] Administration Levalbuterol HCl 0.63 mg 07/30/19 13:30 08/02/19 15:14 Xopenex IH 0.63 mg RTID [facility] Administration Methylprednisolone Sodium Succinate 40 mg 08/02/19 22:00 Solu-Medrol - IVPUSH BID [facility] Mirtazapine 15 mg 07/26/19 22:00 08/01/19 21:07 Remeron - PO 15 mg HS [facility] Administration Pantoprazole Sodium 40 mg 07/28/19 16:30 08/02/19 09:44 Protonix - PO 40 mg DAILY [facility] Administration Ritonavir 100 mg 07/26/19 10:00 08/02/19 09:46 Norvir - PO 100 mg DAILY [facility] Administration Sodium Chloride 3 ml 07/27/19 18:31 Normal Saline For Inhalation - IH Q6H PRN WHEEZING Tiotropium [place] 2 puff 07/29/19 13:15 08/02/19 09:48 Spiriva Respimat IH 2 puff DAILY [facility] Administration Zolpidem Tartrate 5 mg 07/28/19 21:26 08/01/19 21:07 Ambien - PO 5 mg HS PRN Administration INSOMNIA ASSESSMENT/PLAN: Problem List - Problems (1) Acute exacerbation of COPD with asthma Assessment/Plan: improved, tolerating room air. no acute distress will decrease solumedrol to 40mg bid dosing and monitor Code(s): J44.1 - CHRONIC OBSTRUCTIVE PULMONARY DISEASE W (ACUTE) EXACERBATION; J45.901 - UNSPECIFIED ASTHMA WITH (ACUTE) EXACERBATION (2) COPD exacerbation Assessment/Plan: see above Code(s): J44.1 - CHRONIC OBSTRUCTIVE PULMONARY DISEASE W (ACUTE) EXACERBATION (3) Hypertension Assessment/Plan: stable Code(s): I10 - ESSENTIAL (PRIMARY) HYPERTENSION (4) Tachycardia Assessment/Plan: monitor on tele. new rbbb on ekg Code(s): R00.0 - TACHYCARDIA, UNSPECIFIED (5) Fatigue Assessment/Plan: physical therapy once breathing more stable. Code(s): R53.83 - OTHER FATIGUE Qualifiers: Fatigue type: unspecified Qualified Code(s): R53.83 - Other fatigue (6) Anorexia nervosa without bulimia Assessment/Plan: dietary consult. patient reports weight gain of 110 lbs in 2 months. she was to follow up with endocrinology as an outpatient. Code(s): F50.00 - ANOREXIA NERVOSA, UNSPECIFIED (7) HIV (human immunodeficiency virus infection) Code(s): Z21 - ASYMPTOMATIC HUMAN IMMUNODEFICIENCY VIRUS INFECTION STATUS Qualifiers: HIV symptom status: symptomatic Qualified Code(s): B20 - Human immunodeficiency virus [HIV] disease (8) Prophylactic measure Assessment/Plan: fen tolerating po monitor electrolytes dietary consult low salt diet full code Code(s): Z29.9 - ENCOUNTER FOR PROPHYLACTIC MEASURES, UNSPECIFIED (9) Hyperglycemia Assessment/Plan: a1c 6.4%, borderline. elevated BGMS in the setting of steriod therapy. start on novolog ss to maintain bgms < 180 fasting. on levemir also Code(s): R73.9 - HYPERGLYCEMIA, UNSPECIFIED Visit type - Emergency Visit Emergency Visit: Yes ED Registration Date: 07/25/19 Care time: The patient presented to the Emergency Department on the above date and was hospitalized for further evaluation of their emergent condition. - New Patient This patient is new to me today: No - Critical Care Critical Care patient: No - Discharge Referral Referred to [facility] No
[2019-08-02] MEDS ORDERED: traMADol HCL 50 MG TABLET PO ONE (17:45)
[2019-08-02] MEDS ORDERED: methylPREDNISolone NA SUCC 40 MG/1 ML VIAL IVPUSH SCH (18:00)
[2019-08-02] MEDS ORDERED: NYSTATIN 500,000 UNITS/5 ML SUSPENSION PO ONE (20:51)
[2019-08-02] MEDS: MIRTAZAPINE 15 MG TABLET (FP) PO SCH (22:13)
[2019-08-02] MEDS: ATORVASTATIN CA 10 MG TABLET (FP) PO SCH (22:13)
[2019-08-02] MEDS: ZOLPIDEM TARTRATE 5 MG TABLET PO PRN (22:21)
[2019-08-02] MEDS: INSULIN (LEVEMIR) 100 UNITS/ML UNITS SQ SCH (23:28)
[2019-08-03] MEDS: INSULIN SLIDING SCALE (NOVOLOG) 1 VIAL SQ SCH ×3 (06:32→17:16)
[2019-08-03 06:47] LABS: BASO % 0.1 % (0-2.0); HEMATOCRIT 32.1 % (32.4-45.2); HEMOGLOBIN 10.8 GM/dL (10.7-15.3); LYMPH % 9.3 % (8-40); MCH 32.2 pg (25.7-33.7); MCHC 33.6 g/dl (32.0-36.0); MEAN CELL VOLUME 95.9 fl (80-96); MEAN PLT VOLUME 7.6 fl (7.5-11.1); MONO % 7.6 % (3.8-10.2); RBC 3.35 M/mm3 (3.60-5.2); RDW 14.3 % (11.6-15.6); WHITE BLOOD COUNT 9.6 K/mm3 (4.0-10.0)
[2019-08-03 07:16] LABS: BILIRUBIN,TOTAL 0.8 mg/dL (0.2-1); BLOOD UREA NITROGEN 32.3 mg/dL (7-18); CALCIUM 8.1 mg/dL (8.5-10.1); CREATININE 1.3 mg/dL (0.55-1.3); MAGNESIUM 2.3 mg/dL (1.8-2.4); POTASSIUM 3.5 mmol/L (3.5-5.1)
[2019-08-03] MEDS: NYSTATIN 500,000 UNITS/5 ML SUSPENSION PO SCH ×3 (07:57→17:16)
[2019-08-03] MEDS: ALBUTEROL SO4 0.083% IH SOL 2.5 MG/3 ML VIAL.NEB. NEB PRN (08:00)
[2019-08-03] MEDS: LEVALBUTEROL HCL 0.63 MG/3 ML VIAL.NEB. IH SCH ×2 (08:00→14:00)
[2019-08-03] MEDS ORDERED: PT OWN MED DRAWER 7, Y5N ONE (09:47)
[2019-08-03] MEDS ORDERED: NYSTATIN 500,000 UNITS/5 ML SUSPENSION PO SCH (10:00)
[2019-08-03 10:07] VITALS: TEMP 98.2
[2019-08-03] MEDS: FUROSEMIDE 40 MG/4 ML INJECTABLE VIAL IVPUSH SCH (10:08)
[2019-08-03] MEDS: methylPREDNISolone NA SUCC 40 MG/1 ML VIAL IVPUSH SCH (10:08)
[2019-08-03] MEDS: amLODIPine BESYLATE 2.5 MG TABLET (FP) PO SCH (10:08)
[2019-08-03] MEDS: lamiVUDine 150 MG TABLET PO SCH (10:08)
[2019-08-03] MEDS: PANTOPRAZOLE 40 MG TABLET (FP) PO SCH (10:08)
[2019-08-03] MEDS: DOXYCYCLINE HYCLATE 100 MG CAPSULE PO SCH ×2 (10:08→17:16)
[2019-08-03] MEDS: BUDESONIDE/FORMETEROL FUMARATE 160/4.5 mcg INHALER IH SCH (10:09)
[2019-08-03] MEDS: DARUNAVIR ETHANOLATE 800 MG TAB PO SCH (10:09)
[2019-08-03] MEDS: TIOTROPIUM BROMIDE 2.5 MCG (SPIRIVA) RESPIMAT INHALER IH SCH (10:09)
[2019-08-03] MEDS: RITONAVIR 100 MG TABLET PO SCH (10:09)
[2019-08-03] MEDS: ABACAVIR SULFATE 300 MG TABLET PO SCH (10:10)
--- NOTE | 2019-08-03 11:07 | PN ---
Progress Note (short form) - Note Progress Note: s: edema improving with IV lasix. No chest pain, palps, dyspnea. walked today without sob Current Medications Abacavir Sulfate (Ziagen -) 600 mg PO DAILY [facility] Last Admin: 08/03/19 10:10 Dose: 600 mg Acetaminophen (Tylenol -) 650 mg PO Q6H PRN PRN Reason: PAIN LEVEL 1-5 Last Admin: 08/02/19 10:21 Dose: 650 mg Al Hydroxide/Mg Hydroxide (Mylanta Oral Suspension -) 30 ml PO Q6H PRN PRN Reason: DYSPEPSIA Last Admin: 07/29/19 12:47 Dose: 30 ml Albuterol Sulfate (Ventolin 0.083% Nebulizer Soln -) 1 amp NEB Q4H PRN PRN Reason: SHORT OF BREATH/WHEEZING Last Admin: 08/03/19 08:00 Dose: 1 amp Amlodipine Besylate (Norvasc -) 2.5 mg PO DAILY [facility] Last Admin: 08/03/19 10:08 Dose: 2.5 mg Budesonide/Formoterol Fumarate (Symbicort 160/4.5mcg -) 2 puff IH BID [facility] Last Admin: 08/03/19 10:09 Dose: 2 puff Darunavir (Prezista -) 800 mg PO DAILY [facility] Last Admin: 08/03/19 10:09 Dose: 800 mg Doxycycline Hyclate (Vibramycin -) 100 mg PO BID@1000,1800 [facility] Last Admin: 08/03/19 10:08 Dose: 100 mg Furosemide (Lasix Injection -) 40 mg IVPUSH DAILY [facility] Last Admin: 08/03/19 10:08 Dose: 40 mg Guaifenesin (Robitussin Dm -) 10 ml PO Q6H PRN PRN Reason: COUGH Last Admin: 08/02/19 03:05 Dose: 10 ml Insulin Aspart (Novolog Vial Sliding Scale -) 1 vial SQ ACHS [facility]; Protocol Last Admin: 08/03/19 06:32 Dose: 2 units Insulin Detemir (Levemir Vial) 10 units SQ HS [facility] Last Admin: 08/02/19 23:28 Dose: 10 units Lamivudine (Epivir -) 300 mg PO DAILY [facility] Last Admin: 08/03/19 10:08 Dose: 300 mg Levalbuterol HCl (Xopenex) 0.63 mg IH RTID [facility] Last Admin: 08/03/19 08:00 Dose: Not Given Methylprednisolone Sodium Succinate (Solu-Medrol -) 40 mg IVPUSH BID [facility] Last Admin: 08/03/19 10:08 Dose: 40 mg Mirtazapine (Remeron -) 15 mg PO HS [facility] Last Admin: 08/02/19 22:13 Dose: 15 mg Nystatin (Nystatin Oral Suspension -) 500,000 units PO Q6HPO [facility] Last Admin: 08/03/19 07:57 Dose: Not Given Pantoprazole Sodium (Protonix -) 40 mg PO DAILY [facility] Last Admin: 08/03/19 10:08 Dose: 40 mg Ritonavir (Norvir -) 100 mg PO DAILY [facility] Last Admin: 08/03/19 10:09 Dose: 100 mg Sodium Chloride (Normal Saline For Inhalation -) 3 ml IH Q6H PRN PRN Reason: WHEEZING Tiotropium [place] (Spiriva Respimat) 2 puff IH DAILY [facility] Last Admin: 08/03/19 10:09 Dose: 2 puff Zolpidem Tartrate (Ambien -) 5 mg PO HS PRN PRN Reason: INSOMNIA Last Admin: 08/02/19 22:21 Dose: 5 mg Vital Signs Period Temp Pulse Resp BP Sys/[place] Pulse Ox Last 24 Hr 97.9 F-98.7 F 96-122 16-19 124-161/75-98 93-95 Constitutional: Yes: Well Nourished, No Distress, Calm Cardiovascular: Yes: Regular Rate and Rhythm, S1, S2. No: Gallop, Murmur Respiratory: Yes: Regular, CTAB No: Accessory Muscle Use, Rales Extremities: No: Cold Edema: Yes (1+ pedal) Neurological: Yes: Alert, Oriented Psychiatric: No: Agitated no jaundice, diaphoresis Assessment/Plan cta chest: no pe, no chf ecg: sr, nl intervals, IRBBB, no st changes echo 07/2019: mild lvf, nl lvef, nl rv, no sig valve path a/p: 64 f hx copd, hiv here with sob. sob, copd: -still wheezing, cont treatment per pulm -echo unremarkable -no signs acs pedal edema: -sec to steroids -improving with IV lasix - can change to PO lasix on dc - advised leg elevation, low salt diet and compression stockings sinus tachy: -likely 2/2 to pulm issues, steroids +/- b-agonists -echo benign, CTA negative abnl ecg: -ecg with IRBBB. echo benign. no signs of acute cardiac issues. likely IRBBB related to acute pulm dz
--- NOTE | 2019-08-03 11:09 | PN ---
Progress Note, Physician History of Present Illness: pulmonary alert,comfortable,-resp distress - Current Medication List Current Medications: Active Medications Abacavir Sulfate (Ziagen -) 600 mg PO DAILY [facility] Last Admin: 08/03/19 10:10 Dose: 600 mg Acetaminophen (Tylenol -) 650 mg PO Q6H PRN PRN Reason: PAIN LEVEL 1-5 Last Admin: 08/02/19 10:21 Dose: 650 mg Al Hydroxide/Mg Hydroxide (Mylanta Oral Suspension -) 30 ml PO Q6H PRN PRN Reason: DYSPEPSIA Last Admin: 07/29/19 12:47 Dose: 30 ml Albuterol Sulfate (Ventolin 0.083% Nebulizer Soln -) 1 amp NEB Q4H PRN PRN Reason: SHORT OF BREATH/WHEEZING Last Admin: 08/03/19 08:00 Dose: 1 amp Amlodipine Besylate (Norvasc -) 2.5 mg PO DAILY [facility] Last Admin: 08/03/19 10:08 Dose: 2.5 mg Budesonide/Formoterol Fumarate (Symbicort 160/4.5mcg -) 2 puff IH BID [facility] Last Admin: 08/03/19 10:09 Dose: 2 puff Darunavir (Prezista -) 800 mg PO DAILY [facility] Last Admin: 08/03/19 10:09 Dose: 800 mg Doxycycline Hyclate (Vibramycin -) 100 mg PO BID@1000,1800 [facility] Last Admin: 08/03/19 10:08 Dose: 100 mg Furosemide (Lasix Injection -) 40 mg IVPUSH DAILY [facility] Last Admin: 08/03/19 10:08 Dose: 40 mg Guaifenesin (Robitussin Dm -) 10 ml PO Q6H PRN PRN Reason: COUGH Last Admin: 08/02/19 03:05 Dose: 10 ml Insulin Aspart (Novolog Vial Sliding Scale -) 1 vial SQ ACHS [facility]; Protocol Last Admin: 08/03/19 06:32 Dose: 2 units Insulin Detemir (Levemir Vial) 10 units SQ HS [facility] Last Admin: 08/02/19 23:28 Dose: 10 units Lamivudine (Epivir -) 300 mg PO DAILY [facility] Last Admin: 08/03/19 10:08 Dose: 300 mg Levalbuterol HCl (Xopenex) 0.63 mg IH RTID [facility] Last Admin: 08/03/19 08:00 Dose: Not Given Methylprednisolone Sodium Succinate (Solu-Medrol -) 40 mg IVPUSH BID [facility] Last Admin: 08/03/19 10:08 Dose: 40 mg Mirtazapine (Remeron -) 15 mg PO HS [facility] Last Admin: 08/02/19 22:13 Dose: 15 mg Nystatin (Nystatin Oral Suspension -) 500,000 units PO Q6HPO [facility] Last Admin: 08/03/19 07:57 Dose: Not Given Pantoprazole Sodium (Protonix -) 40 mg PO DAILY [facility] Last Admin: 08/03/19 10:08 Dose: 40 mg Ritonavir (Norvir -) 100 mg PO DAILY [facility] Last Admin: 08/03/19 10:09 Dose: 100 mg Sodium Chloride (Normal Saline For Inhalation -) 3 ml IH Q6H PRN PRN Reason: WHEEZING Tiotropium [place] (Spiriva Respimat) 2 puff IH DAILY [facility] Last Admin: 08/03/19 10:09 Dose: 2 puff Zolpidem Tartrate (Ambien -) 5 mg PO HS PRN PRN Reason: INSOMNIA Last Admin: 08/02/19 22:21 Dose: 5 mg - Objective Vital Signs: Vital Signs Temperature 98.2 F 08/03/19 10:06 Pulse Rate 120 H 08/03/19 10:14 Respiratory Rate 08/03/19 10:06 Blood Pressure 161/75 08/03/19 10:06 O2 Sat by Pulse Oximetry (%) 93 L 08/03/19 10:14 Constitutional: Yes: Well Nourished, Calm Eyes: Yes: WNL HENT: Yes: WNL Neck: Yes: WNL Cardiovascular: Yes: Regular Rate and Rhythm, S1, S2 Respiratory: Yes: CTA Bilaterally Gastrointestinal: Yes: Normal Bowel Sounds, Soft Extremities: Yes: WNL Edema: Yes Labs: CBC, BMP 08/03/19 05:35 08/03/19 05:35 INR, PTT INR Cancelled 07/25/19 11:15 Problem List - Problems (1) COPD exacerbation Code(s): J44.1 - CHRONIC OBSTRUCTIVE PULMONARY DISEASE W (ACUTE) EXACERBATION (2) HIV (human immunodeficiency virus infection) Code(s): B20 - HUMAN IMMUNODEFICIENCY VIRUS [HIV] DISEASE (3) Anorexia Code(s): R63.0 - ANOREXIA (4) Weight gain Code(s): R63.5 - ABNORMAL WEIGHT GAIN Assessment/Plan IMP DYSPNEA IMPROVING COPD EXACERBATION IMPROVING HIV H/O ANOREXIA SMOKER PLAN PREDNISONE 60 MG PO DAILY WITH TAPER OUTPATIENT OV 2 WEEKS INHALED BRONCHODILATORS XOPENEX O2 ABX as per ID PFTS OUTPATIENT SMOKING CESSATION COUNSELED Problem List - Problems (1) COPD exacerbation Code(s): J44.1 - CHRONIC OBSTRUCTIVE PULMONARY DISEASE W (ACUTE) EXACERBATION (2) HIV (human immunodeficiency virus infection) Code(s): B20 - HUMAN IMMUNODEFICIENCY VIRUS [HIV] DISEASE (3) Anorexia Code(s): R63.0 - ANOREXIA (4) Weight gain Code(s): R63.5 - ABNORMAL WEIGHT GAIN
[2019-08-03 11:57] LABS: ANISOCYTOSIS 1+; MACROCYTOSIS 0; PLATELET ESTIMATE NORMAL
[2019-08-03] MEDS: MAG HYDROX/ALH/SMC/DPHA/LIDO 240 ML MOUTHWASH MM SCH ×2 (14:43→17:16)
[2019-08-03 14:52] VITALS: BP 135/102; PULSE 111
--- NOTE | 2019-08-03 16:37 | DS ---
Physical Exam: SUBJECTIVE: Patient seen and examined OBJECTIVE: Vital Signs Period Temp Pulse Resp BP Sys/Inman Pulse Ox Last 24 Hr 98 F-98.7 F 96-122 17-19 124-161/75-102 93-96 PHYSICAL EXAM GENERAL: The patient is awake, alert, and fully oriented, in no acute distress. HEAD: Normal with no signs of trauma. EYES: PERRL, extraocular movements intact, sclera anicteric, conjunctiva clear. ENT: Ears normal, nares patent, oropharynx clear without exudates, moist mucous membranes. NECK: Trachea midline, full range of motion, supple. LUNGS: Breath sounds equal, clear to auscultation bilaterally, no wheezes, no crackles, no accessory muscle use. HEART: Regular rate and rhythm, S1, S2 without murmur, rub or gallop. ABDOMEN: Soft, nontender, nondistended, normoactive bowel sounds, no guarding, no rebound, no hepatosplenomegaly, no masses. EXTREMITIES: 2+ pulses, warm, well-perfused, no edema. NEUROLOGICAL: Cranial nerves II through XII grossly intact. Normal speech, gait not observed. PSYCH: Normal mood, normal affect. SKIN: Warm, dry, normal turgor, no rashes or lesions noted. LABS Laboratory Results - last 24 hr 08/02/19 08/02/19 08/03/19 17:26 23:16 05:35 WBC 9.6 RBC 3.35 L Hgb 10.8 Hct 32.1 L MCV 95.9 MCH 32.2 MCHC 33.6 RDW 14.3 Plt Count MPV 7.6 Absolute Neuts (auto) 8.0 Neutrophils % 83.0 H Neutrophils % (Manual) 83.9 H Band Neutrophils % 1.0 Lymphocytes % 9.3 Lymphocytes % (Manual) 10.1 D Monocytes % 7.6 Monocytes % (Manual) 3 L Eosinophils % 0.0 Eosinophils % (Manual) 0.0 Basophils % 0.1 Basophils % (Manual) 0.0 Myelocytes % (Man) 0 Promyelocytes % (Man) 0 Blast Cells % (Manual) 0 Nucleated RBC % 2 H Metamyelocytes 2 D Hypochromia 0 Platelet Estimate Normal Platelet Comment Present Polychromasia 0 Poikilocytosis 0 Anisocytosis 1+ Microcytosis 1+ Macrocytosis 0 Sodium Potassium Chloride Carbon Dioxide Anion Gap BUN Creatinine Est GFR (CKD-EPI)AfAm Est GFR (CKD-EPI)NonAf POC Glucometer 201 243 Random Glucose Calcium Magnesium Total Bilirubin AST ALT Alkaline Phosphatase Total Protein Albumin 08/03/19 08/03/19 08/03/19 05:35 05:43 11:48 WBC RBC Hgb Hct MCV MCH MCHC RDW Plt Count MPV Absolute Neuts (auto) Neutrophils % Neutrophils % (Manual) Band Neutrophils % Lymphocytes % Lymphocytes % (Manual) Monocytes % Monocytes % (Manual) Eosinophils % Eosinophils % (Manual) Basophils % Basophils % (Manual) Myelocytes % (Man) Promyelocytes % (Man) Blast Cells % (Manual) Nucleated RBC % Metamyelocytes Hypochromia Platelet Estimate Platelet Comment Polychromasia Poikilocytosis Anisocytosis Microcytosis Macrocytosis Sodium 137 Potassium 3.5 Chloride 95 L Carbon Dioxide 32 Anion Gap 10 BUN 32.3 H Creatinine 1.3 Est GFR (CKD-EPI)AfAm 50.56 Est GFR (CKD-EPI)NonAf 43.62 POC Glucometer 168 241 Random Glucose 171 H Calcium 8.1 L Magnesium 2.3 Total Bilirubin 0.8 AST 48 H ALT 195 H Alkaline Phosphatase 82 Total Protein 7.0 Albumin 3.0 L 08/03/19 14:44 WBC RBC Hgb Hct MCV MCH MCHC RDW Plt Count MPV Absolute Neuts (auto) Neutrophils % Neutrophils % (Manual) Band Neutrophils % Lymphocytes % Lymphocytes % (Manual) Monocytes % Monocytes % (Manual) Eosinophils % Eosinophils % (Manual) Basophils % Basophils % (Manual) Myelocytes % (Man) Promyelocytes % (Man) Blast Cells % (Manual) Nucleated RBC % Metamyelocytes Hypochromia Platelet Estimate Platelet Comment Polychromasia Poikilocytosis Anisocytosis Microcytosis Macrocytosis Sodium Potassium Chloride Carbon Dioxide Anion Gap BUN Creatinine Est GFR (CKD-EPI)AfAm Est GFR (CKD-EPI)NonAf POC Glucometer 139 Random Glucose Calcium Magnesium Total Bilirubin AST ALT Alkaline Phosphatase Total Protein Albumin HOSPITAL COURSE: Date of Admission:07/25/19 Date of Discharge: 08/03/19 Discharge Summary Problems reviewed: Yes Reason For Visit: OBSTRUCTIVE CHRONIC BRONCHITTIS W EXACERBATION Current Active Problems COPD exacerbation (Acute) HIV (human immunodeficiency virus infection) (Acute) Hyperglycemia (Acute) Hypertension (Acute) Prophylactic measure (Acute) Condition: Improved - Instructions Diet, Activity, Other Instructions: Mrs Monroe: You were admitted for acute exacerbation of COPD and you were treated with Iv steriods. We will be sending you home on Prednisone. Here are our recommendations: Date: Dose: 08/04/2019 Prednisone 60mg at 8am 08/05/2019 Prednisone 40mg at 8am 08/06/2019 Prednisone 40mg at 8am 08/07/2019 Prednisone 30mg at 8am 08/08/2019 Prednisone 30mg at 8am 08/09/2019 Prednisone 20mg at 8am 08/10/2019 Prednisone 10mg at 8am, this is your last dose While you are on prednisone, please take Protonix 40mg once per day to help your stomach tolerate the Prednisone. You were noted to have a hemaglobin A1c at 6.4%. This puts you at risk for developing diabetes. The best way to prevent this is through excercise and some weight loss (gradually). You can also have your hemaglobin A1c levels evaluated as an outpatient. You also developed elevated liver enzymes, therefore we stopped your Lipitor and Doxycycline. Please have these AST/ALT levels repeated with your primary care doctor to assure that they are improving. We have done a liver ultrasound which shows that your have mild hepatomegaly with fatty infiltration of the liver an a small lesion. You will need follow up and we will refer to you a GI specialist so that you can follow up as an outpatient. thank you for allowing us to care for you. Please call [facility] for an appointment next Thursday. Referrals: Vikram Crouch MD [Staff Physician] - Jamila Ivey MD [Primary Care Provider] - George Toro DO [Staff Physician] - Disposition: HOME - Home Medications Comprehensive Discharge Medication List: Ambulatory Orders Lactobacillus Acidophilus [Bacid -] 1 tab PO DAILY 28 Days #28 tab 10/04/18 Albuterol Sulfate Inhaler - [Ventolin HFA Inhaler -] 1 - 2 inh PO Q4H PRN #1 inhaler 04/02/19 Abacavir Sulfate/Lamivudine [Abacavir-Lamivudine 600-300 mg] 1 each PO DAILY # 30 tablet 07/07/19 Darunavir Ethanolate [Prezista -] 800 mg PO DAILY #30 tablet 07/07/19 Ritonavir 100 mg PO DAILY #30 tablet 07/07/19 Fluticasone/Salmeterol [Airduo Respiclick 113-14 Mcg] 1 puff IN BID 07/12/19 Pravastatin Sodium 10 mg PO DAILY 07/12/19 Budesonide/Formeterol Fumarate [SYMBICORT 80/4.5mcg -] 2 inh PO BID #1 cannister 07/21/19 Mirtazapine 15 mg PO HS #30 tablet 07/21/19 Zolpidem Tartrate [Ambien] 5 mg PO HS #30 tablet MDD 1 07/21/19 Mirtazapine 15 mg PO HS 07/25/19 Valacyclovir HCl [Valtrex] 500 mg PO BID 07/25/19 Problem List - Problems (1) Acute exacerbation of COPD with asthma Code(s): J44.1 - CHRONIC OBSTRUCTIVE PULMONARY DISEASE W (ACUTE) EXACERBATION; J45.901 - UNSPECIFIED ASTHMA WITH (ACUTE) EXACERBATION (2) COPD exacerbation Code(s): J44.1 - CHRONIC OBSTRUCTIVE PULMONARY DISEASE W (ACUTE) EXACERBATION (3) Hypertension Code(s): I10 - ESSENTIAL (PRIMARY) HYPERTENSION (4) Tachycardia Code(s): R00.0 - TACHYCARDIA, UNSPECIFIED (5) Fatigue Code(s): R53.83 - OTHER FATIGUE Qualifiers: Fatigue type: unspecified Qualified Code(s): R53.83 - Other fatigue (6) Anorexia nervosa without bulimia Code(s): F50.00 - ANOREXIA NERVOSA, UNSPECIFIED (7) HIV (human immunodeficiency virus infection) Code(s): Z21 - ASYMPTOMATIC HUMAN IMMUNODEFICIENCY VIRUS INFECTION STATUS Qualifiers: HIV symptom status: symptomatic Qualified Code(s): B20 - Human immunodeficiency virus [HIV] disease (8) Prophylactic measure Code(s): Z29.9 - ENCOUNTER FOR PROPHYLACTIC MEASURES, UNSPECIFIED (9) Hyperglycemia Code(s): R73.9 - HYPERGLYCEMIA, UNSPECIFIED - Discharge Referral Referred to [facility] No
== END 2019-08-03 18:28 | disposition home or self-care (01) | DRG 191 ==
LOC: JER 09:38 → JERBED 11:08 → J4S 07-26 15:30
PROVIDERS: ADMIT Internal Medicine; ATTEND Nurse Practitioner Family
DX: J44.1 Chronic obstructive pulmonary disease with (acute) exacerbation (principal); F50.00 Anorexia nervosa, unspecified; J45.901 Unspecified asthma with (acute) exacerbation; J98.11 Atelectasis; I45.10 Unspecified right bundle-branch block; K21.9 Gastro-esophageal reflux disease without esophagitis; Z68.28 Body mass index [BMI] 28.0-28.9, adult; D64.9 Anemia, unspecified; F41.9 Anxiety disorder, unspecified; R00.0 Tachycardia, unspecified; R53.83 Other fatigue; R63.5 Abnormal weight gain; E74.39 Other disorders of intestinal carbohydrate absorption; I10 Essential (primary) hypertension; F17.210 Nicotine dependence, cigarettes, uncomplicated; R94.31 Abnormal electrocardiogram [ECG] [EKG]; J44.0 Chronic obstructive pulmonary disease with (acute) lower respiratory infection; M25.473 Effusion, unspecified ankle; R73.03 Prediabetes; Z88.0 Allergy status to penicillin; Z21 Asymptomatic human immunodeficiency virus [HIV] infection status
CPT/HCPCS: 36415; 71045-TC-FY; 71275-TC; 76705-TC; 80053; 80061; 80307; 82550; 82553; 82803; 82962; 83036; 83721; 83735; 83880; 84439; 84443; 84484; 85025; 87040; 87086; 87804; 87807; 93005; 93010; 93306-TC; 93970-TC; 94640; 94761; 97116-GP; 97162-GP; 99285-25; G0463-25; J7030

== ENCOUNTER 2019-09-09 13:26 | Inpatient (IN) | payer OTHER ==
[2019-09-09] MEDS ORDERED: SODIUM CHLORIDE 2,694 ML IV ONE (13:44)
--- NOTE | 2019-09-09 14:19 | PDOC ---
History of Present Illness - General Chief Complaint: SIRS, Suspected/Possible Stated Complaint: DIARRHEA Time Seen by Provider: 09/09/19 13:42 History Source: Patient Exam Limitations: No Limitations - History of Present Illness Initial Comments: 09/09/19 14:16 64y F with PMH of HIV (on HAART), COPD, HTN, HLD, HSV presenting to ED for weakness, diarrhea, and sob x2 days. She states that she started to feel weak after she attended [employer] 3d ago. She says she has been having a dry cough and watery diarrhea. She says she is going to the bathroom >10 times per day. Denies bloody or foul smelling stools, recent antibiotic use. She endorses chills and headache. Denies chest pain, fever, abdominal pain, vomiting, body aches, muscle aches, new rashes, sore throat. Most recent CD4 392 06/2019. PMD: Uche PMH: see hpi Meds: see med rec Allergies: PCN Social: denies Past History - Past Medical History Allergies/Adverse Reactions: Allergies Allergy/AdvReac Type Severity Reaction Status Date / Time Penicillins Allergy Severe Swelling Verified 09/09/19 13:32 MAYONAISE AdvReac Uncoded 09/09/19 13:32 Home Medications: Ambulatory Orders Lactobacillus Acidophilus [Bacid -] 1 tab PO DAILY 28 Days #28 tab 10/04/18 Albuterol Sulfate Inhaler - [Ventolin HFA Inhaler -] 1 - 2 inh PO Q4H PRN #1 inhaler 04/02/19 Mirtazapine 15 mg PO HS #30 tablet 07/21/19 Zolpidem Tartrate [Ambien] 5 mg PO HS #30 tablet MDD 1 07/21/19 Albuterol 0.083% Nebulizer Olivia [Ventolin 0.083% Nebulizer Soln -] 1 neb NEB Q6H PRN #120 vial 08/05/19 Valacyclovir HCl [Valtrex] 500 mg PO BID #14 tablet 08/05/19 Budesonide/Formeterol Fumarate [SYMBICORT 80/4.5mcg -] 2 inh PO BID #1 cannister 08/09/19 Levalbuterol HCl [Xopenex] 0.63 mg IH QID #4 box 08/09/19 Levalbuterol Tartrate [Xopenex Hfa] 15 gm IH QID #1 hfa.aer.ad 08/09/19 Nystatin Cream [Mycostatin Cream -] 1 applic TP BID #1 applic 08/09/19 Nystatin Oral Suspension - [Nystatin Oral Susp 693057 Units/5 ML -] 5 ml PO Q6H #200 cup 08/09/19 Levalbuterol HCl 0.63 mg IH QID #2 box 08/12/19 Levalbuterol Tartrate [Levalbuterol Tartrate Hfa] 15 gm IH QID #1 inhaler Tiotropium [place] [Spiriva Respimat] 4 gm IH DAILY #1 mist.inhal 08/18/19 Valacyclovir HCl [Valtrex -] 1,000 mg PO BID #14 tablet 08/18/19 Valacyclovir HCl [Valtrex -] 1,000 mg PO BID #28 tablet 08/23/19 Acetaminophen [Tylenol] 650 mg PO Q6H PRN #100 tablet 08/30/19 Blood Pressure Test Kit [Blood Pressure Kit] 1 each MC BID #1 kit 08/30/19 Gabapentin [Neurontin -] 300 mg PO HS #30 capsule 08/30/19 Abacavir Sulfate/Lamivudine [Abacavir-Lamivudine 600-300 mg] 1 each PO DAILY # 30 tablet 09/06/19 Darunavir Ethanolate [Prezista -] 800 mg PO DAILY #30 tablet 09/06/19 Furosemide [Lasix -] 20 mg PO DAILY #30 tablet 09/06/19 Pravastatin Sodium 10 mg PO DAILY #30 tablet 09/06/19 Ritonavir 100 mg PO DAILY #30 tablet 09/06/19 Anemia: Yes Asthma: Yes Cancer: No Cardiac Disorders: No CVA: No COPD: No CHF: No DVT: No Dementia: No Diabetes: No GI Disorders: Yes (GERD, ANOREXIA, LAST EGD 2013) Disorders: No HTN: (low BP) Hypercholesterolemia: No Liver Disease: No Psychiatric Problems: Yes (ANXIETY) Seizures: No - Surgical History Abdominal Surgery: Yes (EXPLORATORY) - Immunization History Immunization Up to Date: Yes - Psycho Social/Smoking Cessation Hx Smoking Status: No Smoking History: Unknown if ever smoked Have you smoked in the past 12 months: No Number of Cigarettes Smoked Daily: 2 If you are a former smoker, when did you quit?: 2 months ago Cigars Per Day: 0 'Breaking Loose' booklet given: 12/15/17 Hx Alcohol Use: No Drug/Substance Use Hx: No Substance Use Type: None Hx Substance Use Treatment: No Review of Systems - Review of Systems Constitutional: Yes: See HPI HEENTM: No: Symptoms Reported Respiratory: Yes: See HPI Cardiac (ROS): No: Symptoms Reported ABD/GI: Yes: See HPI : No: Symptoms Reported Musculoskeletal: Yes: See HPI Integumentary: No: Symptoms Reported Neurological: No: Symptoms reported *Physical Exam - Vital Signs Last Vital Signs Temp Pulse Resp BP Pulse Ox 98.4 F 127 H 26 H 91/55 L 92 L 09/09/19 13:34 09/09/19 13:34 09/09/19 13:34 09/09/19 13:34 09/09/19 13:34 - Physical Exam General Appearance: Yes: Nourished, Appropriately Dressed, Mild Distress HEENT: positive: EOMI, JOHNNA, Pharynx Normal. negative: Pharyngeal Erythema, Tonsillar Exudate, Tonsillar Erythema, Thrush Neck: positive: Trachea midline, Supple. negative: Lymphadenopathy (R), Lymphadenopathy (L) Respiratory/Chest: positive: Lungs Clear, Normal Breath Sounds, Rapid RR, Wheezing. negative: Chest Tender, Crackles, Rales, Rhonchi, Stridor Cardiovascular: positive: S1, S2, Tachycardia. negative: Edema, JVD, Murmur Vascular Pulses: Dorsalis-Pedis (R): 2+, Doralis-Pedis (L): 2+ Gastrointestinal/Abdominal: positive: Normal Bowel Sounds, Soft. negative: Tender Musculoskeletal: negative: CVA Tenderness, Vertebral Tenderness Extremity: positive: Normal Capillary Refill. negative: Pedal Edema, Swelling, Calf Tenderness Integumentary: positive: Normal Color, Dry, Warm Neurologic: positive: chief of police II-XII NML intact, Fully Oriented, Alert, Normal Mood/ Affect, Normal Response, Motor Strength /5 ED Treatment Course - LABORATORY CBC & Chemistry Diagram: 09/09/19 14:30 09/09/19 14:30 - RADIOLOGY Radiology Studies Ordered: Category Date Time Status CHEST X-RAY PORTABLE* [RAD] Stat Radiology 09/09/19 13:44 Ordered Medical Decision Making - Medical Decision Making 09/09/19 16:38 64yF presenting for diarrhea, chills and weakness, sob. vitals: tachycardic, needing supplemental o2, refusing rectal temp. ddx includes but not limited to flu, cdiff, infectious diarrhea, ekg: sinus tachycardia at 117 bpm. no mikki or depressions. qtc 504. cxr: no infiltrates or consolidations per my read. labs show hyponatremia, hypokalemia and elevated bun/cr likely 2/2 dehydration. will give KCl getting vanc and rocephin per Dr. Uche Dunham for tachypnea and low o2 saturation. cbc wnl. will admit for dehydration, feliz, sob Discharge - Discharge Information Problems reviewed: Yes Clinical Impression/Diagnosis: Flu, Dehydration, FELIZ (acute kidney injury) Condition: Stable - Admission Yes - Follow up/Referral - Patient Discharge Instructions - Post Discharge Activity
[2019-09-09 14:39] LABS: VENOUS BASE EXCESS -4.4 meq/l (-2-2); VENOUS PC02 37.1 mmHg (38-52); VENOUS PH 7.35 (7.31-7.41)
[2019-09-09] MEDS ORDERED: VANCOMYCIN 1 GM in D5W (PRE-DOCKED) 1,000 MG/250 ML IVPB ONE (14:39)
[2019-09-09 14:40] LABS: VENOUS PO2 < 49 mmHg (28-48)
[2019-09-09] MEDS ORDERED: VANCOMYCIN 1 GRAM (PRE-DOCKED) 1,000 MG/250 ML BAG IVPB ONE (14:44)
[2019-09-09 14:58] LABS: ALBUMIN 3.9 g/dl (3.4-5.0); BILIRUBIN,TOTAL 0.2 mg/dL (0.2-1); BLOOD UREA NITROGEN 24.6 mg/dL (7-18); CALCIUM 8.6 mg/dL (8.5-10.1); CREATININE 1.9 mg/dL (0.55-1.3); TOT PROT 8.6 g/dl (6.4-8.2)
[2019-09-09 14:59] LABS: BASO % 0.5 % (0-2.0); EOS % 0.1 % (0-4.5); HEMATOCRIT 38.5 % (32.4-45.2); HEMOGLOBIN 12.5 GM/dL (10.7-15.3); LYMPH % 26.5 % (8-40); MCHC 32.5 g/dl (32.0-36.0); MEAN CELL VOLUME 92.5 fl (80-96); MEAN PLT VOLUME 8.1 fl (7.5-11.1); MONO % 17.4 % (3.8-10.2); NEUT % 55.5 % (42.8-82.8); PLATELET COUNT 217 K/MM3 (134-434); RBC 4.17 M/mm3 (3.60-5.2); RDW 15.4 % (11.6-15.6); WHITE BLOOD COUNT 4.8 K/mm3 (4.0-10.0)
[2019-09-09] MEDS ORDERED: CEFTRIAXONE 1 GM in DEXTROSE 5%-WATER - 100 ML IVPB ONE (15:01)
[2019-09-09] MEDS ORDERED: POTASSIUM CHLORIDE TABS 20 MEQ TABLET.ER (FP) PO ONE ×2 (15:05→16:32)
[2019-09-09] MEDS ORDERED: ALBUTEROL SO4 2.5/IPRATROPIUM 0.5 INH SOL 3 ML VIAL.NEB. NEB ONE ×2 (16:07→16:31)
[2019-09-09] MEDS ORDERED: CEFTRIAXONE 1 GM/50 ML BAG ONE (16:32)
[2019-09-09] MEDS ORDERED: SODIUM CHLORIDE 1,000 ML IV SCH ×2 (17:15→17:20)
[2019-09-09] MEDS ORDERED: OSELTAMIVIR PHOSPHATE 75 MG CAPSULE PO SCH (17:18)
--- NOTE | 2019-09-09 17:29 | HP ---
Hospitalist Medicine Admission 64 y/o F with PMH HIV (on HAART, CD4 390 06/2019), COPD (not on home 02), HTN, HLD, HSV, who presents to the ED c/o weakness and diarrhea that has been occurring over the last three days. Per pt, she went to buddhism before her sx began, and only had eaten grapes. Has had 7-8 loose, watery BM's daily since then. During this time, has endorsed feeling very weak and without an appetite. Is nauseated, but has not vomited, and also has had subjective chills. In the ED , she was started on ceftriaxone and vanco per ID recs; pt follows with Dr. Ivey at the [facility]. Also received bolus of 2L NS. Denies overt SOB, however pt is "unable to really determine" these symptoms. PMH: as above PsxH: tonsillectomy, cyst removal - breast, ovary, meds: as in chart, per pt has not had changes in meds since last visit; endorses still on valtrex 1g BID allergies: NKDA FH: denies SH: lives in [place] with family. smokes "few cigarettes" /day, denies drug or alcohol use. Allergies Penicillins Allergy (Severe, Verified 09/09/19 13:32) Swelling MAYONAISE Adverse Reaction (Uncoded 09/09/19 13:32) HOME MEDICATIONS: Home Medications Medication Instructions Recorded Lactobacillus Acidophilus [Bacid -] 1 tab PO DAILY 28 Days #28 tab 10/04/18 Albuterol Sulfate Inhaler - 1 - 2 inh PO Q4H PRN #1 inhaler 04/02/19 [Ventolin HFA Inhaler -] Mirtazapine 15 mg PO HS #30 tablet 07/21/19 Zolpidem Tartrate [Ambien] 5 mg PO HS #30 tablet MDD 1 07/21/19 Albuterol 0.083% Nebulizer Olivia 1 neb NEB Q6H PRN #120 vial 08/05/19 [Ventolin 0.083% Nebulizer Soln -] Valacyclovir HCl [Valtrex] 500 mg PO BID #14 tablet 08/05/19 Budesonide/Formeterol Fumarate 2 inh PO BID #1 cannister 08/09/19 [SYMBICORT 80/4.5mcg -] Levalbuterol HCl [Xopenex] 0.63 mg IH QID #4 box 08/09/19 Levalbuterol Tartrate [Xopenex Hfa] 15 gm IH QID #1 hfa.aer.ad 08/09/19 Nystatin Cream [Mycostatin Cream -] 1 applic TP BID #1 applic 08/09/19 Nystatin Oral Suspension - 5 ml PO Q6H #200 cup 08/09/19 [Nystatin Oral Susp 910123 Units/5 ML -] Levalbuterol HCl 0.63 mg IH QID #2 box 08/12/19 Levalbuterol Tartrate 15 gm IH QID #1 inhaler 08/12/19 [Levalbuterol Tartrate Hfa] Tiotropium [place] [Spiriva 4 gm IH DAILY #1 mist.inhal 08/18/19 Respimat] Valacyclovir HCl [Valtrex -] 1,000 mg PO BID #14 tablet 08/18/19 Valacyclovir HCl [Valtrex -] 1,000 mg PO BID #28 tablet 08/23/19 Acetaminophen [Tylenol] 650 mg PO Q6H PRN #100 tablet 08/30/19 Blood Pressure Test Kit [Blood 1 each MC BID #1 kit 08/30/19 Pressure Kit] Gabapentin [Neurontin -] 300 mg PO HS #30 capsule 08/30/19 Abacavir Sulfate/Lamivudine 1 each PO DAILY #30 tablet 09/06/19 [Abacavir-Lamivudine 600-300 mg] Darunavir Ethanolate [Prezista -] 800 mg PO DAILY #30 tablet 09/06/19 Furosemide [Lasix -] 20 mg PO DAILY #30 tablet 09/06/19 Pravastatin Sodium 10 mg PO DAILY #30 tablet 09/06/19 Ritonavir 100 mg PO DAILY #30 tablet 09/06/19 PHYSICAL EXAMINATION Vital Signs - 24 hr 09/09/19 09/09/19 09/09/19 13:34 14:40 14:41 Temperature 98.4 F Pulse Rate 127 H Pulse Rate [ 119 H Apical] Respiratory 26 H 18 Rate Blood Pressure 91/55 L Blood Pressure 102/66 [Right Arm] O2 Sat by Pulse 92 L 89 L 98 Oximetry (%) general: pleasant. resting in bed, in NAD. heent: NCAT, PERRLA, dry MM neck: supple cardio: S1, S2 RRR. no r/m/g pulm: +few wheezes. no accessory m usage abdomen: soft, nontender, nondistended LE: trace edema. 2+ pulses neuro: Safety Net Maker 2-12 grossly intact Laboratory Results - last 24 hr 09/09/19 09/09/19 09/09/19 14:30 14:30 14:30 WBC 4.8 RBC 4.17 Hgb 12.5 Hct 38.5 D MCV 92.5 D MCH 30.0 D MCHC 32.5 RDW 15.4 Plt Count 217 D MPV 8.1 Absolute Neuts (auto) 2.7 Neutrophils % 55.5 D Lymphocytes % 26.5 D Monocytes % 17.4 H Eosinophils % 0.1 D Basophils % 0.5 Nucleated RBC % 0 VBG pH POC VBG pCO2 POC VBG pO2 VBG HCO3 VBG O2 Sat (Slime) VBG Base Excess Sodium 132 L Potassium 3.0 L Chloride 100 Carbon Dioxide 20 L Anion Gap 12 BUN 24.6 H Creatinine 1.9 H Est GFR (CKD-EPI)AfAm 31.96 Est GFR (CKD-EPI)NonAf 27.57 Random Glucose 83 Lactic Acid Calcium 8.6 Total Bilirubin 0.2 AST 108 H ALT 76 H Alkaline Phosphatase 100 Troponin I < 0.02 Total Protein 8.6 H Albumin 3.9 09/09/19 09/09/19 14:30 16:03 Lactic Acid 1.3 Influenza A (Rapid) Positive A Influenza B (Rapid) Negative Imaging CXR: without evidence acute abnormality, does not appear to have any effusion or infiltrate. f/u official report EKG: +sinus tach, 117bpm rate. qtc 504ms ASSESSMENT/PLAN: 64 y/o F with PMH HIV (on HAART, CD4 390 06/2019), COPD (not on home 02), HTN, HLD, HSV, who presents to the ED c/o weakness and diarrhea that has been occurring over the last three days. #infectious vs. inflammatory diarrhea -possible also 2/2 flu, as pt fluA+ -f/u stool cx (salmonella, shigella), blood cx -will give gentle IVF, as pt dry -will not send for c. diff as pt not febrile, without white count - however immunocompromised -will c/w vanc, ceftriaxone per ID recs. d/w ED -ID: Dr. Ivey #FluA+ -recent development of sx 2-3 days -will start on tamiflu 30 mg BID (based on cr clearance) x 5 day course (Day1) -c/w IVF, supportive care -iso precautions -caution w/antiemetics as prolonged qtc can give tigan if needed #hx HIV (on HAART, CD4 390 06/2019) -c/w darunavir, ritonavir, abacavir/lamivudine -ID: Dr. Ivey #LE edema -hold lasix for now, as pt dry -can restart tomorrow if vol status improves #COPD -does not currently appear to be in exacerbation -c/w nebs q6h PRN (d/t tachycardia; though possible 2/2 vol depletion) -c/w symbicort -NC 02 as needed, wean to 02 sat> 90% #HSV -still w/ genital lesions -c/w valtrex 1g BID. was to c/w 500mg BID once resolved #FELIZ -likely pre-renal, 2/2 dehydration -c/w gentle IVF; IV NS 75 cc/hr -c/t trend #F/E/N IV NS 75 cc/hr coninue to follow lytes na controlled/ low cholesterol diet #PPX DVT: SCD's #Dispo admit to med-surg Visit type - Emergency Visit Emergency Visit: Yes ED Registration Date: 09/09/19 Care time: The patient presented to the Emergency Department on the above date and was hospitalized for further evaluation of their emergent condition. - New Patient This patient is new to me today: Yes Date on this admission: 09/09/19 - Critical Care Critical Care patient: No
--- NOTE | 2019-09-09 17:48 | PDOC ---
Documentation entered by Bear Veras SCRIBE, acting as scribe for Bella Ybarra MD. Bella Ybarra MD: This documentation has been prepared by the Rito cerda Daniel, SCRIBE, under my direction and personally reviewed by me in its entirety. I confirm that the documentation accurately reflects all work, treatment, procedures, and medical decision making performed by me. Attending Attestation - Resident Resident Name: LoretaLarisa - ED Attending Attestation I have performed the following: I have examined & evaluated the patient, The case was reviewed & discussed with the resident, I agree w/resident's findings & plan, Exceptions are as noted - HPI HPI: 09/09/19 14:34 The patient is a 64 year old female with a past medical history of HIV/AIDS on HAART therapy (most recent CD4 392, reports HAART compliance), COPD, HTN, HLD, and recurrent herpes here today for evaluation of diarrhea and generalized weakness. The patient reports that she has had 3 days of generalized weakness, diarrhea, dry cough, shortness of breath, and chills. She states that she has had more than 10 episodes of non bloody non bilious diarrhea per day. She reports seeing Dr. Ivey the day before her symptoms started and that she felt fine then. Patient denies headache, lightheadedness, stiff neck, focal weakness/numbness. Denies fever. Denies chest pain. Denies nausea, vomiting, abdominal pain. Allergies: penicillins, mayonnaise - Physicial Exam PE: 09/09/19 14:34 Agree with resident exam - Medical Decision Making 09/09/19 17:46 64-year-old female with a history of HIV/AIDS presents the emergency department with diarrhea, weakness, chills, found to be tachycardic, hypotensive, hypoxic and tachypneic. Patient refused a rectal temperature. Septic work-up initiated. Also flu swab was obtained. Patient is possibly tachycardic and hypotensive due to diarrheal illness. She is also flu positive. Patient has been covered empirically with vancomycin and ceftriaxone per Dr. Ivey's recommendation. Patient admitted for further management.
[2019-09-09 18:53] VITALS: BMI 28.0
[2019-09-09] MEDS: OSELTAMIVIR PHOSPHATE 30 MG CAPSULE PO SCH ×2 (19:07→21:42)
[2019-09-09] MEDS ORDERED: valACYclovir HCL 500 MG TABLET (FP) ONE (21:11)
[2019-09-09] MEDS ORDERED: PT OWN MED DRAWER 7, Y5N ONE (21:12)
[2019-09-09] MEDS: ATORVASTATIN CA 10 MG TABLET (FP) PO SCH (21:42)
[2019-09-09] MEDS: MIRTAZAPINE 15 MG TABLET (FP) PO SCH (21:42)
[2019-09-09] MEDS: GABAPENTIN 300 MG CAPSULE PO SCH (21:42)
[2019-09-09] MEDS: valACYclovir HCL 1000 MG TABLET PO SCH (21:43)
[2019-09-09] MEDS: BUDESONIDE/FORMETEROL FUMARATE 80/4.5 mcg INHALER IH SCH (22:26)
--- NOTE | 2019-09-09 22:59 | PN ---
Teaching Attending Note Name of Resident: Gina Marion ATTENDING PHYSICIAN STATEMENT I saw and evaluated the patient. I reviewed the resident's note and discussed the case with the resident. I agree with the resident's findings and plan as documented. 64 y/o F with PMH HIV (on HAART, CD4 390 06/2019), COPD (not on home ), HTN, HLD, HSV, who presents to the ED c/o weakness and diarrhea that has been occurring over the last three days. Patient endorses 7-8 watery BMs per day, resulting in generalized malaise, fatigue and chills. Patient endorses h/o PCP being treated years ago, also had bouts of diarrhea in the past. Currently feels chills, denies CP, LOC, syncope. Endorses cough with some SOB for the past 3-4 days. PE VSS GA AAox3, mild distress, speaks in full sentences HEENT NC/AT, EOMI, no JVD, no oral thrush Chest coarse BS b/l, no accessory muscle use CVS S1, S2+, sinus tachycardia Abd Soft, mildly distended, hyperactive BS+, no guarding Ext No LE edema, no calf tenderness Vital Signs - 24 hr 09/09/19 09/09/19 09/09/19 13:34 14:40 14:41 Temperature 98.4 F Pulse Rate 127 H Pulse Rate [ 119 H Apical] Respiratory 26 H 18 Rate Blood Pressure 91/55 L Blood Pressure 102/66 [Right Arm] O2 Sat by Pulse 92 L 89 L 98 Oximetry (%) 09/09/19 09/09/19 09/09/19 17:51 18:44 18:56 Temperature 98.1 F 9.3 F L Pulse Rate 110 H Pulse Rate [ 111 H Apical] Respiratory 18 22 H Rate Blood Pressure 118/46 L Blood Pressure 115/59 L [Right Arm] O2 Sat by Pulse 100 97 Oximetry (%) 09/09/19 19:50 Temperature 100.2 F H Pulse Rate 122 H Pulse Rate [ Apical] Respiratory 22 H Rate Blood Pressure 124/74 Blood Pressure [Right Arm] O2 Sat by Pulse Oximetry (%) A/P: 64 F h/o HIV on HAART, last CD4 390, COPD, HTN, HLD, HSV presents with severe bouts of diarrhea associated with SOB and dry cough. Persistent diarrhea Likely infectious in origin Send stool WBC, culture, ova/parasites, Crypto/Giardia IgG Aggressive IV hydration, replete electrolytes aggressively ID consult: Dr Ivey FELIZ Likely prerenal from intravascular volume depletion from diarrhea Aggressive IVF, correct electrolytes, trend renal function and chem Hold nephrotoxins, consider holding acyclovir in setting of FELIZ until CRE improves, no signs of acute HSV outbreak HIV on HAART Mild transaminitis, with AST>ALT, ?Etoh history Trend LFTs, resume HAART if LFTs continue to rise DC HAART and consult ID Send new absolute CD4 count, HIV viral load, send LDH as patient has dry cough, increased interstitial markings on CXR, ?PCP PNA, although unlikely in setting of CD4 >200 ID consult: Dr Ivey COPD Not in acute exacerbation Cont. NC O2 to titrate O2 >90% HTN Resume home BP meds as tolerated HLD Hold statin for now in view of transaminitis DVT ppx: Lovenox SC FEN: IVF, chem daily, clear diet as tolerated
[2019-09-10] MEDS: ACETAMINOPHEN 325 MG TABLET (FP) PO PRN (04:06)
[2019-09-10 08:05] LABS: BASO % 0.6 % (0-2.0); EOS % 0.1 % (0-4.5); HEMATOCRIT 33.4 % (32.4-45.2); HEMOGLOBIN 10.8 GM/dL (10.7-15.3); LYMPH % 26.1 % (8-40); MCHC 32.2 g/dl (32.0-36.0); MEAN CELL VOLUME 93.1 fl (80-96); MEAN PLT VOLUME 8.4 fl (7.5-11.1); MONO % 10.3 % (3.8-10.2); NEUT % 62.9 % (42.8-82.8); PLATELET COUNT 187 K/MM3 (134-434); RBC 3.58 M/mm3 (3.60-5.2); RDW 15.6 % (11.6-15.6); WHITE BLOOD COUNT 4.7 K/mm3 (4.0-10.0)
[2019-09-10 08:23] LABS: BLOOD UREA NITROGEN 17.4 mg/dL (7-18); CALCIUM 7.8 mg/dL (8.5-10.1); CREATININE 1.3 mg/dL (0.55-1.3); MAGNESIUM 2.2 mg/dL (1.8-2.4); PHOSPHOROUS 3.9 mg/dL (2.5-4.9); POTASSIUM 3.3 mmol/L (3.5-5.1)
[2019-09-10 08:27] LABS: ALBUMIN 2.9 g/dl (3.4-5.0); BILIRUBIN,DIRECT 0.1 mg/dL (0.0-0.2); BILIRUBIN,TOTAL 0.4 mg/dL (0.2-1); TOT PROT 6.8 g/dl (6.4-8.2)
[2019-09-10] MEDS ORDERED: valACYclovir HCL 500 MG TABLET (FP) ONE (09:26)
[2019-09-10] MEDS ORDERED: PT OWN MED DRAWER 7, Y5N ONE ×3 (09:27→10:20)
[2019-09-10] MEDS: OSELTAMIVIR PHOSPHATE 30 MG CAPSULE PO SCH ×2 (09:29→22:27)
[2019-09-10] MEDS: LACTOBACILLUS ACIDOPHILUS 1 TABLET PO SCH (09:29)
[2019-09-10] MEDS: valACYclovir HCL 1000 MG TABLET PO SCH (09:30)
[2019-09-10] MEDS: BUDESONIDE/FORMETEROL FUMARATE 80/4.5 mcg INHALER IH SCH ×2 (09:31→21:31)
[2019-09-10] MEDS ORDERED: PATIENT'S OWN MEDICATION (NON-FORMULARY) (Abacavir Sulfate/Lamivudine [Abacavir-Lamivudine PO SCH (10:00)
[2019-09-10] MEDS ORDERED: POTASSIUM CHLORIDE TABS 20 MEQ TABLET.ER (FP) PO SCH (10:00)
[2019-09-10] MEDS ORDERED: valACYclovir HCL 500 MG TABLET (FP) PO SCH ×2 (10:19→10:30)
[2019-09-10] MEDS: RITONAVIR 100 MG TABLET PO SCH (10:29)
[2019-09-10] MEDS: lamiVUDine 150 MG TABLET PO SCH (10:29)
[2019-09-10] MEDS: ABACAVIR SULFATE 300 MG TABLET PO SCH (10:30)
[2019-09-10] MEDS: DARUNAVIR ETHANOLATE 800 MG TAB PO SCH (10:30)
[2019-09-10] MEDS ORDERED: KCL 10 MEQ IVPB 10 MEQ/100 ML INFUS.BAG IVPB SCH ×2 (11:30→22:00)
[2019-09-10] MEDS ORDERED: CEFTRIAXONE 1,000 MG in DEXTROSE 5%-WATER - 50 ML IVPB SCH (15:00)
[2019-09-10] MEDS ORDERED: CEFTRIAXONE 1 GM in DEXTROSE 5%-WATER - 50 ML IVPB SCH ×2 (15:02→15:07)
[2019-09-10] MEDS ORDERED: DEXTROSE 5%-WATER - 50 ML IVPB ONE (15:27)
[2019-09-10] MEDS ORDERED: cefTRIAXone SODIUM 1 GM VIAL ONE (15:27)
[2019-09-10] MEDS: CEFTRIAXONE 1 GM in DEXTROSE 5%-WATER - 50 ML IVPB SCH (15:34)
[2019-09-10] MEDS: ALBUTEROL SO4 0.083% IH SOL 2.5 MG/3 ML VIAL.NEB. NEB PRN ×2 (15:48→21:15)
[2019-09-10] MEDS ORDERED: SODIUM CHLORIDE 0.9% 1000 ML INFUS.BAG IV SCH (16:35)
[2019-09-10] MEDS: SODIUM CHLORIDE 1,000 ML IV SCH (18:36)
--- NOTE | 2019-09-10 19:59 | PN ---
Physical Exam: 64 y/o F with PMH HIV (on HAART, CD4 390 06/2019), COPD (not on home ), HTN, HLD, HSV, presents with multiple bouts of secretory diarrhea and URI. Patient found to be Flu +. Awaiting ID evaluation. No new fevers, endorses diarrhea still there but has lessened slightly. PE VSS GA AAox3, comfortable, speaks in full sentences HEENT NC/AT, EOMI, no JVD, no oral thrush Chest coarse BS b/l, no accessory muscle use CVS S1, S2+, NSR Abd Soft, mildly distended, hyperactive BS+, no guarding Ext No LE edema, no calf tenderness A/P: 64 F h/o HIV on HAART, last CD4 390, COPD, HTN, HLD, HSV presents with severe bouts of diarrhea associated with SOB and dry cough. Persistent diarrhea Likely infectious in origin Send stool WBC, culture, ova/parasites, Crypto/Giardia IgG (negative), C. Diff neg. Aggressive IV hydration, replete electrolytes aggressively ID consult: Dr Ivey FELIZ Likely prerenal from intravascular volume depletion from diarrhea Aggressive IVF, correct electrolytes, trend renal function and chem Hold nephrotoxins, consider holding acyclovir in setting of FELIZ until CRE improves HIV on HAART Mild transaminitis, with AST>ALT, ?Etoh history Trend LFTs, resume HAART if LFTs continue to rise DC HAART and consult ID Will Send new absolute CD4 count, HIV viral load, send LDH as patient has dry cough, increased interstitial markings on CXR, ?PCP PNA, although unlikely in setting of CD4 >200 ID consult: Dr Ivey COPD Not in acute exacerbation Cont. NC O2 to titrate O2 >90% HTN Resume home BP meds as tolerated HLD Hold statin for now in view of transaminitis DVT ppx: Lovenox SC FEN: IVF, chem daily, clear diet as tolerated Visit type - Emergency Visit Emergency Visit: Yes ED Registration Date: 09/09/19 Care time: The patient presented to the Emergency Department on the above date and was hospitalized for further evaluation of their emergent condition. - New Patient This patient is new to me today: No - Critical Care Critical Care patient: No - Discharge Referral Referred to [facility] Med P.C.: No
[2019-09-10] MEDS: valACYclovir HCL 500 MG TABLET (FP) PO SCH (21:23)
[2019-09-10] MEDS: ATORVASTATIN CA 10 MG TABLET (FP) PO SCH (21:24)
[2019-09-10] MEDS: GABAPENTIN 300 MG CAPSULE PO SCH (21:24)
[2019-09-10] MEDS: MIRTAZAPINE 15 MG TABLET (FP) PO SCH (21:24)
[2019-09-10] MEDS ORDERED: POTASSIUM CHLORIDE TABS 20 MEQ TABLET.ER (FP) PO ONE (22:00)
[2019-09-10] MEDS ORDERED: POTASSIUM CHLORIDE 20 MEQ PREMIX IVPB 100 ML IVPB SCH (22:00)
--- NOTE | 2019-09-10 23:23 | EKG ---
Test Reason : Blood Pressure : / mmHG Vent. Rate : 117 BPM Atrial Rate : 117 BPM P-R Int : 152 ms QRS Dur : 086 ms QT Int : 362 ms P-R-T Axes : 071 076 068 degrees QTc Int : 504 ms SINUS TACHYCARDIA POSSIBLE LEFT ATRIAL ENLARGEMENT BORDERLINE ECG WHEN COMPARED WITH ECG OF 25-JUL-2019 10:15, INCOMPLETE RIGHT BUNDLE BRANCH BLOCK IS NO LONGER PRESENT Confirmed by RADHA CHIU MD ([id number]) on 09/10/2019 11:22:28 PM Referred By: Confirmed By:RADHA CHIU MD
--- NOTE | 2019-09-10 23:53 | PN ---
Progress Note (short form) - Note Progress Note: ID CONSULT DICTATED ACUTE INFLUENZA ACUTE GASTROENTERITIS DEHYDRATION AIDS TAMIFLU DROPLET PRECAUTIONS STOOL STUDIES HYDRATION CONTINUE EMPIRIC ANTIBIOTICS ART
[2019-09-11 09:21] LABS: BASO % 0.3 % (0-2.0); EOS % 0.7 % (0-4.5); HEMATOCRIT 33.9 % (32.4-45.2); LYMPH % 38.9 % (8-40); MCH 30.1 pg (25.7-33.7); MCHC 32.4 g/dl (32.0-36.0); MEAN PLT VOLUME 8.3 fl (7.5-11.1); MONO % 11.5 % (3.8-10.2); NEUT % 48.6 % (42.8-82.8); PLATELET COUNT 182 K/MM3 (134-434); RBC 3.65 M/mm3 (3.60-5.2); RDW 15.5 % (11.6-15.6)
[2019-09-11 09:27] LABS: BILIRUBIN,DIRECT 0.1 mg/dL (0.0-0.2); BILIRUBIN,TOTAL 0.2 mg/dL (0.2-1); BLOOD UREA NITROGEN 10.6 mg/dL (7-18); CALCIUM 8.3 mg/dL (8.5-10.1); CREATININE 1.1 mg/dL (0.55-1.3); POTASSIUM 3.7 mmol/L (3.5-5.1)
[2019-09-11] MEDS ORDERED: SODIUM CHLORIDE 0.9% 1000 ML INFUS.BAG IV SCH ×2 (10:00)
[2019-09-11] MEDS ORDERED: PT OWN MED DRAWER 7, Y5N ONE (10:32)
[2019-09-11] MEDS ORDERED: DEXTROSE 5%-WATER - 50 ML IVPB ONE (10:32)
[2019-09-11] MEDS ORDERED: cefTRIAXone SODIUM 1 GM VIAL ONE (10:32)
[2019-09-11] MEDS: ENOXAPARIN NA (PORCINE) 40 MG/0.4 ML DISP.SYRIN SQ SCH (10:38)
[2019-09-11] MEDS: valACYclovir HCL 500 MG TABLET (FP) PO SCH ×2 (10:39→21:39)
[2019-09-11] MEDS: LACTOBACILLUS ACIDOPHILUS 1 TABLET PO SCH (10:39)
[2019-09-11] MEDS: OSELTAMIVIR PHOSPHATE 30 MG CAPSULE PO SCH ×2 (10:40→21:39)
[2019-09-11] MEDS: lamiVUDine 150 MG TABLET PO SCH (10:40)
[2019-09-11] MEDS: RITONAVIR 100 MG TABLET PO SCH (10:41)
[2019-09-11] MEDS: DARUNAVIR ETHANOLATE 800 MG TAB PO SCH (10:41)
[2019-09-11] MEDS: ABACAVIR SULFATE 300 MG TABLET PO SCH (10:42)
[2019-09-11] MEDS: CEFTRIAXONE 1 GM in DEXTROSE 5%-WATER - 50 ML IVPB SCH (10:42)
[2019-09-11] MEDS: BUDESONIDE/FORMETEROL FUMARATE 80/4.5 mcg INHALER IH SCH ×2 (10:48→21:40)
[2019-09-11] MEDS: ALBUTEROL SO4 0.083% IH SOL 2.5 MG/3 ML VIAL.NEB. NEB PRN ×2 (11:36→19:06)
[2019-09-11] MEDS: KCL 10 MEQ IVPB 10 MEQ/100 ML INFUS.BAG IVPB SCH (11:37)
--- NOTE | 2019-09-11 19:45 | PN ---
Progress Note, Physician History of Present Illness: AWAKE, WEAK APPEARING IN BED C/O CONTINUED DIARRHEA, GENERALIZED WEAKNESS N0 C/O ABDOMINAL PAIN NO FEVERCHILLS - Current Medication List Current Medications: Active Medications Abacavir Sulfate (Ziagen -) 600 mg PO DAILY [facility] Last Admin: 09/11/19 10:42 Dose: 600 mg Acetaminophen (Tylenol -) 650 mg PO Q6H PRN PRN Reason: FEVER Last Admin: 09/10/19 04:06 Dose: 650 mg Albuterol Sulfate (Ventolin 0.083% Nebulizer Soln -) 1 amp NEB Q6H PRN PRN Reason: WHEEZING Last Admin: 09/11/19 19:06 Dose: 1 amp Atorvastatin Calcium (Lipitor -) 10 mg PO [facility] Last Admin: 09/10/19 21:24 Dose: 10 mg Budesonide/Formoterol Fumarate (Symbicort 80/4.5mcg -) 2 puff IH BID [facility] Last Admin: 09/11/19 10:48 Dose: 2 puff Darunavir (Prezista -) 800 mg PO DAILY [facility] Last Admin: 09/11/19 10:41 Dose: 800 mg Enoxaparin Sodium (Lovenox -) 40 mg SQ DAILY [facility] Last Admin: 09/11/19 10:38 Dose: 40 mg Gabapentin (Neurontin -) 300 mg PO [facility] Last Admin: 09/10/19 21:24 Dose: 300 mg Vancomycin HCl 1,250 mg/ (Dextrose) 250 mls @ 250 mls/2 hr IVPB Q24H [facility]; Protocol Ceftriaxone Sodium 1 gm/ (Dextrose) 50 mls @ 100 mls/hr IVPB DAILY [facility] Last Admin: 09/11/19 10:42 Dose: 100 mls/hr Sodium Chloride (Normal Saline -) 1,000 mls @ 75 mls/hr IV ASDIR [facility] Last Admin: 09/10/19 18:36 Dose: 75 mls/hr Lactobacillus Acidophilus (Bacid -) 1 tab PO DAILY [facility] Last Admin: 09/11/19 10:39 Dose: 1 tab Lamivudine (Epivir -) 300 mg PO DAILY [facility] Last Admin: 09/11/19 10:40 Dose: 300 mg Mirtazapine (Remeron -) 15 mg PO [facility] Last Admin: 09/10/19 21:24 Dose: 15 mg Oseltamivir Phosphate (Tamiflu -) 30 mg PO BID [facility] Stop: 09/14/19 17:44 Last Admin: 09/11/19 10:40 Dose: 30 mg Ritonavir (Norvir -) 100 mg PO DAILY [facility] Last Admin: 09/11/19 10:41 Dose: 100 mg Valacyclovir HCl (Valtrex -) 1,000 mg PO BID [facility] Last Admin: 09/11/19 10:39 Dose: 1,000 mg Zolpidem Tartrate (Ambien -) 5 mg PO PRN PRN Reason: INSOMNIA - Objective Vital Signs: Vital Signs Temperature 98.3 F 09/11/19 17:45 Pulse Rate 103 H 09/11/19 17:45 Respiratory Rate 20 09/11/19 17:45 Blood Pressure 116/74 09/11/19 17:45 O2 Sat by Pulse Oximetry (%) 98 09/11/19 10:00 Constitutional: Yes: No Distress Cardiovascular: Yes: Regular Rate and Rhythm, S1, S2 Respiratory: Yes: Wheezes Gastrointestinal: Yes: Normal Bowel Sounds, Soft Edema: No Labs: CBC, BMP 09/11/19 08:32 09/11/19 08:32 Assessment/Plan ACUTE INFLUENZA A ACUTE GASTROENTERITIS DEHYDRATION AIDS BC, STOOL STUDIES (-) D/C ANTIBIOTICS CONTINUE TAMIFLU
[2019-09-11] MEDS: SODIUM CHLORIDE 1,000 ML IV SCH (19:51)
[2019-09-11] MEDS: ACETAMINOPHEN 325 MG TABLET (FP) PO PRN (19:59)
--- NOTE | 2019-09-11 20:21 | PN ---
Physical Exam: 64 y/o F with PMH HIV (on HAART, CD4 390 06/2019), COPD (not on home 02), HTN, HLD, HSV, presents with multiple bouts of secretory diarrhea and URI. Patient found to be Flu +. Awaiting ID evaluation. No new fevers, endorses diarrhea, no abd. pain, WBC count stable. PE VSS GA AAox3, comfortable, speaks in full sentences HEENT NC/AT, EOMI, no JVD, no oral thrush Chest coarse BS b/l, no accessory muscle use CVS S1, S2+, NSR Abd Soft, mildly distended, hyperactive BS+, no guarding Ext No LE edema, no calf tenderness Vital Signs - 24 hr 09/10/19 09/10/19 09/11/19 21:00 22:00 07:06 Temperature 98.9 F 97.8 F Pulse Rate 110 H 102 H Respiratory 20 20 20 Rate Blood Pressure 106/62 108/55 L O2 Sat by Pulse 97 97 Oximetry (%) 09/11/19 09/11/19 09/11/19 09:00 10:00 14:04 Temperature 98 F 98.3 F Pulse Rate 72 92 H Respiratory 20 18 Rate Blood Pressure 125/76 118/68 O2 Sat by Pulse 98 98 Oximetry (%) 09/11/19 17:45 Temperature 98.3 F Pulse Rate 103 H Respiratory 20 Rate Blood Pressure 116/74 O2 Sat by Pulse Oximetry (%) Laboratory Results - last 24 hr 09/11/19 09/11/19 08:32 08:32 WBC 3.0 L RBC 3.65 Hgb 11.0 Hct 33.9 MCV 93.0 MCH 30.1 MCHC 32.4 RDW 15.5 Plt Count 182 MPV 8.3 Absolute Neuts (auto) 1.5 Neutrophils % 48.6 D Lymphocytes % 38.9 D Monocytes % 11.5 H Eosinophils % 0.7 D Basophils % 0.3 Nucleated RBC % 0 Sodium 141 Potassium 3.7 Chloride 112 H Carbon Dioxide 20 L Anion Gap 10 BUN 10.6 Creatinine 1.1 Est GFR (CKD-EPI)AfAm 61.88 Est GFR (CKD-EPI)NonAf 53.39 Random Glucose 106 Calcium 8.3 L Total Bilirubin 0.2 Direct Bilirubin 0.1 AST 62 H ALT 50 Alkaline Phosphatase 70 Total Protein 7.0 Albumin 3.0 L TSH 3.20 Microbiology 09/09/19 14:17 Blood - Peripheral Venous Blood Culture - Preliminary NO GROWTH OBTAINED AFTER 48 HOURS, INCUBATION TO CONTINUE FOR 3 DAYS. 09/09/19 14:17 Blood - Peripheral Venous Blood Culture - Preliminary NO GROWTH OBTAINED AFTER 48 HOURS, INCUBATION TO CONTINUE FOR 3 DAYS. 09/09/19 15:28 Stool Salmonella/Shigella Culture - Preliminary NO ENTERIC PATHOGENS, 24 HOURS, ON PRIMARY PLATES 09/09/19 15:28 Stool Yersinia Culture - Preliminary NO ENTERIC PATHOGENS, 24 HOURS, ON PRIMARY PLATES 09/09/19 15:28 Stool Vibrio Culture - Final NO GROWTH OF VIBRIO SPECIES OBTAINED 09/09/19 15:28 Stool Escherichia coli 0157 Culture - Final NO GROWTH OF E COLI 0157 OBTAINED 09/10/19 05:43 Stool Gram Stain - Final 09/10/19 05:43 Stool Clostridioides difficile Antigen - Final 09/10/19 05:43 Stool Clostridioides difficile Toxin Assay - Final 09/10/19 05:43 Stool Cryptosporidium Antigen - Final 09/10/19 05:43 Stool Giardia Antigen (JUSTINA) - Final Current Medications Generic Name Dose Route Start Last Admin Trade Name Freq PRN Reason Stop Dose Admin Abacavir Sulfate 600 mg 09/10/19 10:00 09/11/19 10:42 Ziagen - PO 600 mg DAILY [facility] Administration Acetaminophen 650 mg 09/10/19 02:45 09/11/19 19:59 Tylenol - PO 650 mg Q6H PRN Administration FEVER Albuterol Sulfate 1 amp 09/09/19 17:02 09/11/19 19:06 Ventolin 0.083% Nebulizer Soln - NEB 1 amp Q6H PRN Administration WHEEZING Atorvastatin Calcium 10 mg 09/09/19 22:00 09/10/19 21:24 Lipitor - PO 10 mg HS [facility] Administration Budesonide/Formoterol Fumarate 2 puff 09/09/19 22:00 09/11/19 10:48 Symbicort 80/4.5mcg - IH 2 puff BID [facility] Administration Cholestyramine Resin 4 gm 09/11/19 20:15 Questran Packet - PO BID [facility] Darunavir 800 mg 09/10/19 10:00 09/11/19 10:41 Prezista - PO 800 mg DAILY [facility] Administration Enoxaparin Sodium 40 mg 09/11/19 10:00 09/11/19 10:38 Lovenox - SQ 40 mg DAILY [facility] Administration Gabapentin 300 mg 09/09/19 22:00 09/10/19 21:24 Neurontin - PO 300 mg HS [facility] Administration Sodium Chloride 1,000 mls @ 75 mls/hr 09/10/19 16:45 09/11/19 19:51 Normal Saline - IV Not Given ASDIR [facility] Lactobacillus Acidophilus 1 tab 09/10/19 10:00 09/11/19 10:39 Bacid - PO 1 tab DAILY [facility] Administration Lamivudine 300 mg 09/10/19 10:00 09/11/19 10:40 Epivir - PO 300 mg DAILY [facility] Administration Mirtazapine 15 mg 09/09/19 22:00 09/10/19 21:24 Remeron - PO 15 mg HS [facility] Administration Oseltamivir Phosphate 30 mg 09/09/19 17:45 09/11/19 10:40 Tamiflu - PO 09/14/19 17:44 30 mg BID [facility] Administration Ritonavir 100 mg 09/10/19 10:00 09/11/19 10:41 Norvir - PO 100 mg DAILY [facility] Administration Valacyclovir HCl 1,000 mg 09/10/19 22:00 09/11/19 10:39 Valtrex - PO 1,000 mg BID [facility] Administration Zolpidem Tartrate 5 mg 09/09/19 17:02 Ambien - PO HS PRN INSOMNIA A/P: 64 F h/o HIV on HAART, last CD4 390, COPD, HTN, HLD, HSV presents with severe bouts of diarrhea associated with SOB and dry cough. Persistent diarrhea Stool workup negative for growth, neg. C. Diff. Aggressive IV hydration, replete electrolytes aggressively Will cont. Lactobacillus and try cholestyramine/sucrose 4g packet BID to bind to diarrhea and form it and decreased severity ID consult: Dr Ivey FELIZ Likely prerenal from intravascular volume depletion from diarrhea Aggressive IVF, correct electrolytes, trend renal function and chem Hold nephrotoxins, consider holding acyclovir in setting of FELIZ until CRE improves HIV on HAART Mild transaminitis, improving awaiting absolute CD4 count, HIV viral load ID consult: Dr Ivey COPD Not in acute exacerbation Cont. NC O2 to titrate O2 >90% HTN Resume home BP meds as tolerated HLD Hold statin for now in view of transaminitis DVT ppx: Lovenox SC FEN: IVF, chem daily, clear diet as tolerated Visit type - Emergency Visit Emergency Visit: Yes ED Registration Date: 09/09/19 Care time: The patient presented to the Emergency Department on the above date and was hospitalized for further evaluation of their emergent condition. - New Patient This patient is new to me today: No - Critical Care Critical Care patient: No - Discharge Referral Referred to [facility] Med P.C.: No
[2019-09-11] MEDS: CHOLESTYRAMINE/SUCROSE 4 GM PACKET PO SCH ×2 (21:23→21:39)
[2019-09-11] MEDS: ATORVASTATIN CA 10 MG TABLET (FP) PO SCH (21:39)
[2019-09-11] MEDS: GABAPENTIN 300 MG CAPSULE PO SCH (21:39)
[2019-09-11] MEDS: MIRTAZAPINE 15 MG TABLET (FP) PO SCH (21:39)
[2019-09-12] MEDS: ALBUTEROL SO4 0.083% IH SOL 2.5 MG/3 ML VIAL.NEB. NEB PRN ×4 (01:22→21:16)
[2019-09-12] MEDS: SODIUM CHLORIDE 1,000 ML IV SCH (05:37)
[2019-09-12] MEDS: VANCOMYCIN HCL 1,250 MG in DEXTROSE 5%-WATER - 250 ML IVPB SCH (07:10)
[2019-09-12 08:20] LABS: BASO % 0.3 % (0-2.0); EOS % 0.9 % (0-4.5); HEMATOCRIT 31.6 % (32.4-45.2); HEMOGLOBIN 10.3 GM/dL (10.7-15.3); LYMPH % 55.1 % (8-40); MCH 30.1 pg (25.7-33.7); MCHC 32.5 g/dl (32.0-36.0); MEAN CELL VOLUME 92.4 fl (80-96); MEAN PLT VOLUME 8.3 fl (7.5-11.1); MONO % 17.3 % (3.8-10.2); NEUT % 26.4 % (42.8-82.8); PLATELET COUNT 196 K/MM3 (134-434); RBC 3.42 M/mm3 (3.60-5.2); RDW 15.8 % (11.6-15.6); WHITE BLOOD COUNT 2.4 K/mm3 (4.0-10.0)
[2019-09-12 08:25] LABS: BLOOD UREA NITROGEN 4.2 mg/dL (7-18); CALCIUM 8.4 mg/dL (8.5-10.1); CREATININE 0.9 mg/dL (0.55-1.3); POTASSIUM 3.3 mmol/L (3.5-5.1)
[2019-09-12] MEDS ORDERED: PT OWN MED DRAWER 7, Y5N ONE ×2 (09:30→21:09)
[2019-09-12] MEDS: LACTOBACILLUS ACIDOPHILUS 1 TABLET PO SCH (09:36)
[2019-09-12] MEDS: valACYclovir HCL 500 MG TABLET (FP) PO SCH ×2 (09:36→21:56)
[2019-09-12] MEDS: DARUNAVIR ETHANOLATE 800 MG TAB PO SCH (09:37)
[2019-09-12] MEDS: lamiVUDine 150 MG TABLET PO SCH (09:38)
[2019-09-12] MEDS: RITONAVIR 100 MG TABLET PO SCH (09:38)
[2019-09-12] MEDS: ENOXAPARIN NA (PORCINE) 40 MG/0.4 ML DISP.SYRIN SQ SCH (09:38)
[2019-09-12] MEDS: CHOLESTYRAMINE/SUCROSE 4 GM PACKET PO SCH ×2 (09:39→21:56)
[2019-09-12] MEDS: BUDESONIDE/FORMETEROL FUMARATE 80/4.5 mcg INHALER IH SCH ×2 (09:41→21:57)
[2019-09-12] MEDS: OSELTAMIVIR PHOSPHATE 30 MG CAPSULE PO SCH ×2 (09:48→21:56)
[2019-09-12] MEDS: ABACAVIR SULFATE 300 MG TABLET PO SCH (09:49)
[2019-09-12] MEDS: ACETAMINOPHEN 325 MG TABLET (FP) PO PRN (09:53)
[2019-09-12] MEDS ORDERED: POTASSIUM CHLORIDE TABS 20 MEQ TABLET.ER (FP) PO ONE (11:30)
[2019-09-12] MEDS ORDERED: predniSONE 20 MG TABLET (UD) PO ONE (11:30)
--- NOTE | 2019-09-12 12:27 | CONS ---
INFECTIOUS DISEASE CONSULTATION DATE OF CONSULTATION: 09/10/2019 HISTORY: The patient is a 64-year-old female with a history of acquired immunodeficiency syndrome evaluated for acute gastroenteritis and influenza A. She was admitted to the hospital on September 09, 2019, with complaints of generalized weakness, dyspnea, dry cough, chills for approximately 3 days prior to admission. She was evaluated in the emergency room where a rapid influenza swab was performed and was performed for influenza A. She was admitted to the floor. Patient denies any chest pain. No high-grade fever. She denies any ill contacts. She was unaware of anybody with influenza in her family or outside the home. Her diarrhea is reported as multiple episodes, approximately 10 per day, consisting of nonbloody, loose stool. She denies any severe abdominal pain, nausea, or vomiting. PAST MEDICAL HISTORY: Positive for acquired immunodeficiency syndrome. She is status post on antiretroviral therapy. Her last CD4 lymphocyte count was 392. Past medical history also includes COPD, hypertension, hyperlipidemia. PAST SURGICAL HISTORY: Status post tonsillectomy, section. ALLERGIES: PENICILLIN. MEDICATIONS: Include Ziagen, Lipitor, Questran, Prezista, Lovenox, Neurontin, Epivir, Remeron, Tamiflu, Valtrex, Norvir. SOCIAL HISTORY: Positive for tobacco use. SYSTEMS REVIEW: Neurologic: No loss of consciousness, seizure activity, or focal weakness. Cardiac: Negative chest pain or palpitations. Respiratory: As per HPI. Gastrointestinal: As per HPI. Genitourinary: Negative for urinary tract infection. LABORATORY DATA: White count 4.7, hematocrit 33.4, platelets 187, BUN 17, creatinine 1.3. PHYSICAL EXAMINATION: General: On exam, she is weak appearing in bed. Vital Signs: Temperature 98.5, blood pressure 99/64, pulse 100 regular, respirations 20 per minute. HEENT: Sclerae anicteric. Heart: Sounds S1, S2. Lungs: Bilateral rhonchi and scattered wheezing. Abdomen: Soft. Mild, diffuse tenderness. No rebound or rigidity. Extremities: Negative for edema. IMPRESSION: 1. Acute influenza A. 2. Acute gastroenteritis. 3. Dehydration/azotemia. 4. Acquired immunodeficiency syndrome. PLAN: Obtain stool studies. Patient has been empirically started on vancomycin and ceftriaxone. Continue these antibiotics pending cultures. Continue Tamiflu. Influenza isolation. IV fluid hydration. Antiretroviral therapy. Thank you for the kind referral. JONO ROSEN M.D. [id number]
--- NOTE | 2019-09-12 13:11 | PN ---
Progress Note (short form) - Note Progress Note: Hospitalist Medicine C/o mild wheezes. This afternoon, w/ diarrhea Vitals 09/12/19 10:00 Temperature 98.4 F Pulse Rate 109 H Respiratory 20 Rate Blood Pressure 121/61 Physical Exam general: pleasant. resting in bed, in NAD. heent: NCAT, PERRLA, moist MM neck: supple cardio: S1, S2 RRR. no r/m/g pulm: +scattered wheezes. no accessory m usage abdomen: soft, nontender, nondistended LE: 2+ pulses, no edema neuro: [employer] 2-12 grossly intact Laboratory Tests 09/09/19 09/12/19 09/12/19 16:03 07:30 07:30 WBC 2.4 L Hgb 10.3 L Hct 31.6 L Plt Count 196 Sodium 143 Potassium 3.3 L Chloride 115 H Carbon Dioxide 22 Anion Gap 6 L BUN 4.2 L Creatinine 0.9 Calcium 8.4 L Influenza A (Rapid) Positive A Microbiology 09/10/19 05:43 Stool Gram Stain - Final 09/10/19 05:43 Stool Cryptosporidium Antigen - Final 09/10/19 05:43 Stool Giardia Antigen (JUSTINA) - Final 09/10/19 05:43 Stool Clostridioides difficile Antigen - Final 09/10/19 05:43 Stool Clostridioides difficile Toxin Assay - Final 09/09/19 15:28 Stool Escherichia coli 0157 Culture - Final NO GROWTH OF CAMPYLOBACTER SPECIES OBTAINED NO GROWTH OF YERSINIA SPECIES OBTAINED NO GROWTH OF VIBRIO SPECIES OBTAINED NO GROWTH OF E COLI 0157 OBTAINED 09/09/19 15:28 Stool Salmonella/Shigella Culture - Preliminary 09/09/19 15:28 Stool Non Lactose Fermenting Gnb 09/09/19 14:17 Blood - Peripheral Venous Blood Culture - Preliminary NO GROWTH OBTAINED AFTER 48 HOURS, INCUBATION TO CONTINUE FOR 3 DAYS. 09/09/19 14:17 Blood - Peripheral Venous Blood Culture - Preliminary NO GROWTH OBTAINED AFTER 48 HOURS, INCUBATION TO CONTINUE FOR 3 DAYS. Imaging CXR: without evidence acute abnormality, does not appear to have any effusion or infiltrate. f/u official report EKG: +sinus tach, 117bpm rate. qtc 504ms ASSESSMENT/PLAN: 64 y/o F with PMH HIV (on HAART, CD4 390 06/2019), COPD (not on home ), HTN, HLD, HSV, who presents to the ED c/o weakness and diarrhea that has been occurring over the last three days. #infectious vs. inflammatory diarrhea -possible also 2/2 flu, as pt fluA+ -prelim stool cx (+) r/o shigella, salmonella -await final stool cx result -c. diff (-) -off abx -ID: Dr. Ivey #FluA+ -on tamiflu 30 mg BID (based on cr clearance) x 5 day course (to finish 09/14) -c/w IVF, supportive care -iso precautions -caution w/antiemetics as prolonged qtc can give tigan if needed #hx HIV (on HAART, CD4 390 06/2019) -c/w darunavir, ritonavir, abacavir/lamivudine -ID: Dr. Ivey #LE edema -hold lasix for now, as pt dry -can restart if vol status improves #COPD -w/ wheezing will give pred 40mg (Day1), to continue -will send home on pred taper -c/w symbicort, ventolin nebs changed to q4h PRN. tachy improved #HSV -still w/ genital lesions -c/w valtrex 1g BID. was to c/w 500mg BID once resolved #FELIZ - resolved #F/E/N IV NS 75 cc/hr coninue to follow lytes na controlled/ low cholesterol diet #PPX DVT: SCD's #Dispo monitoring on med-surg follow stool studies still w/diarrhea for pre and post as well
--- NOTE | 2019-09-12 14:14 | PN ---
Progress Note (short form) - Note Progress Note: continued diarrhea-nonbloody, no abdominal pain no fevers wheezing feels lousy Vital Signs Period Temp Pulse Resp BP Sys/Inman Pulse Ox Last 24 Hr 97.9 F-98.4 F 103-129 20-20 116-127/61-74 95-98 cor-rrr lungs bilateral wheezing abd soft,nt ext no edema CBC, BMP 09/12/19 07:30 09/12/19 07:30 Microbiology 09/09/19 15:28 Stool Salmonella/Shigella Culture - Preliminary Non Lactose Fermenting Gnb 09/09/19 15:28 Stool Campylobacter Culture - Final NO GROWTH OF CAMPYLOBACTER SPECIES OBTAINED 09/09/19 15:28 Stool Yersinia Culture - Final NO GROWTH OF YERSINIA SPECIES OBTAINED 09/09/19 15:28 Stool Vibrio Culture - Final NO GROWTH OF VIBRIO SPECIES OBTAINED 09/09/19 15:28 Stool Escherichia coli 0157 Culture - Final NO GROWTH OF E COLI 0157 OBTAINED 09/09/19 14:17 Blood - Peripheral Venous Blood Culture - Preliminary NO GROWTH OBTAINED AFTER 48 HOURS, INCUBATION TO CONTINUE FOR 3 DAYS. 09/09/19 14:17 Blood - Peripheral Venous Blood Culture - Preliminary NO GROWTH OBTAINED AFTER 48 HOURS, INCUBATION TO CONTINUE FOR 3 DAYS. 09/10/19 05:43 Stool Gram Stain - Final 09/10/19 05:43 Stool Clostridioides difficile Antigen - Final 09/10/19 05:43 Stool Clostridioides difficile Toxin Assay - Final 09/10/19 05:43 Stool Cryptosporidium Antigen - Final 09/10/19 05:43 Stool Giardia Antigen (JUSTINA) - Final a/p influenza A- on tamiflu gastroenteritis- persistent, continue IVF f/w stool studies hiv- continue art genital HSV- continue valtrex
--- NOTE | 2019-09-12 16:00 | PN ---
Teaching Attending Note Name of Resident: Gina Marion ATTENDING PHYSICIAN STATEMENT I saw and evaluated the patient. I reviewed the resident's note and discussed the case with the resident. I agree with the resident's findings and plan as documented. SUBJECTIVE: Patient continues to have diarrhea. OBJECTIVE: Vital Signs Period Temp Pulse Resp BP Sys/Inman Pulse Ox Last 24 Hr 97.4 F-98.4 F 103-129 20-20 116-127/61-75 95-98 HEART: S1S2, tachycardic LUNGS: Scattered wheezes ABDOMEN: Soft, non-distended, non-tender, normal BS EXTREMITIES: No edema Laboratory Results - last 24 hr 09/10/19 09/12/19 09/12/19 05:43 07:30 07:30 WBC 2.4 L RBC 3.42 L Hgb 10.3 L Hct 31.6 L MCV 92.4 MCH 30.1 MCHC 32.5 RDW 15.8 H Plt Count 196 MPV 8.3 Absolute Neuts (auto) 0.6 L Neutrophils % 26.4 L D Lymphocytes % 55.1 H D Monocytes % 17.3 H Eosinophils % 0.9 Basophils % 0.3 Nucleated RBC % 0 Sodium 143 Potassium 3.3 L Chloride 115 H Carbon Dioxide 22 Anion Gap 6 L BUN 4.2 L Creatinine 0.9 Est GFR (CKD-EPI)AfAm 78.87 Est GFR (CKD-EPI)NonAf 68.05 Random Glucose 100 Calcium 8.4 L Stool Weight TNP Stool Fat, Quant TNP Current Medications Generic Name Dose Route Start Last Admin Trade Name Freq PRN Reason Stop Dose Admin Abacavir Sulfate 600 mg 09/10/19 10:00 09/12/19 09:49 Ziagen - PO 600 mg DAILY SHERI Administration Acetaminophen 650 mg 09/10/19 02:45 09/12/19 09:53 Tylenol - PO 650 mg Q6H PRN Administration FEVER Albuterol Sulfate 1 amp 09/12/19 10:42 09/12/19 12:11 Ventolin 0.083% Nebulizer Soln - NEB 1 amp Q4H PRN Administration WHEEZING Atorvastatin Calcium 10 mg 09/09/19 22:00 09/11/19 21:39 Lipitor - PO 10 mg HS SHERI Administration Budesonide/Formoterol Fumarate 2 puff 09/09/19 22:00 09/12/19 09:41 Symbicort 80/4.5mcg - IH 2 puff BID SHERI Administration Cholestyramine Resin 4 gm 09/11/19 20:15 09/12/19 09:39 Questran Packet - PO 4 gm BID SHERI Administration Darunavir 800 mg 09/10/19 10:00 09/12/19 09:37 Prezista - PO 800 mg DAILY SHERI Administration Enoxaparin Sodium 40 mg 09/11/19 10:00 09/12/19 09:38 Lovenox - SQ 40 mg DAILY SHERI Administration Gabapentin 300 mg 09/09/19 22:00 09/11/19 21:39 Neurontin - PO 300 mg HS SHERI Administration Sodium Chloride 1,000 mls @ 75 mls/hr 09/10/19 16:45 09/12/19 05:37 Normal Saline - IV 75 mls/hr ASDIR SHERI Administration Lactobacillus Acidophilus 1 tab 09/10/19 10:00 09/12/19 09:36 Bacid - PO 1 tab DAILY SHERI Administration Lamivudine 300 mg 09/10/19 10:00 09/12/19 09:38 Epivir - PO 300 mg DAILY SHERI Administration Mirtazapine 15 mg 09/09/19 22:00 09/11/19 21:39 Remeron - PO 15 mg HS SHERI Administration Oseltamivir Phosphate 30 mg 09/09/19 17:45 09/12/19 09:48 Tamiflu - PO 09/14/19 17:44 30 mg BID SHERI Administration Prednisone 40 mg 09/13/19 10:00 Deltasone - PO DAILY SHERI Ritonavir 100 mg 09/10/19 10:00 09/12/19 09:38 Norvir - PO 100 mg DAILY SHERI Administration Valacyclovir HCl 1,000 mg 09/10/19 22:00 09/12/19 09:36 Valtrex - PO 1,000 mg BID SHERI Administration Zolpidem Tartrate 5 mg 09/09/19 17:02 Ambien - PO HS PRN INSOMNIA ASSESSMENT AND PLAN: This is a 64 year old woman with a history of HTN, hyperlipidemia, COPD, HIV, HSV, who presented to the ED with weakness and diarrhea. 1. Infectious gastroenteritis - Stool culture growing gram neg rods - follow up identification - Continue IV fluid 2. Influenza A - Continue Tamiflu (day 3) 3. HIV - Continue Epivir, Prezista, Ziagen, Norvir 4. Acute exacerbation of COPD secondary - Prednisone started - Continue Symbicort 5. HSV - Continue Valtrex 6. Acute kidney injury - Resolved 7. Hypokalemia - Resolved 8. HTN 9. Hyperlipidemia - Continue Questran
[2019-09-12] MEDS: ATORVASTATIN CA 10 MG TABLET (FP) PO SCH (21:55)
[2019-09-12] MEDS: GABAPENTIN 300 MG CAPSULE PO SCH (21:56)
[2019-09-12] MEDS: MIRTAZAPINE 15 MG TABLET (FP) PO SCH (21:56)
[2019-09-12] MEDS: ZOLPIDEM TARTRATE 5 MG TABLET PO PRN (21:56)
[2019-09-13] MEDS: ALBUTEROL SO4 0.083% IH SOL 2.5 MG/3 ML VIAL.NEB. NEB PRN ×3 (07:57→15:23)
[2019-09-13 07:58] LABS: BASO % 0.3 % (0-2.0); HEMATOCRIT 30.4 % (32.4-45.2); LYMPH % 49.1 % (8-40); MEAN CELL VOLUME 91.1 fl (80-96); MEAN PLT VOLUME 8.2 fl (7.5-11.1); MONO % 17.7 % (3.8-10.2); NEUT % 32.9 % (42.8-82.8); PLATELET COUNT 226 K/MM3 (134-434); RBC 3.34 M/mm3 (3.60-5.2); RDW 15.6 % (11.6-15.6); WHITE BLOOD COUNT 3.6 K/mm3 (4.0-10.0)
[2019-09-13] MEDS: SODIUM CHLORIDE 1,000 ML IV SCH ×2 (08:13→17:01)
[2019-09-13 08:18] LABS: BLOOD UREA NITROGEN 8.7 mg/dL (7-18); CALCIUM 8.8 mg/dL (8.5-10.1); CREATININE 0.8 mg/dL (0.55-1.3); MAGNESIUM 1.9 mg/dL (1.8-2.4); PHOSPHOROUS 2.2 mg/dL (2.5-4.9); POTASSIUM 3.6 mmol/L (3.5-5.1)
[2019-09-13] MEDS ORDERED: predniSONE 20 MG TABLET (UD) PO SCH (10:00)
[2019-09-13] MEDS: valACYclovir HCL 500 MG TABLET (FP) PO SCH ×2 (11:36→22:07)
[2019-09-13] MEDS: DARUNAVIR ETHANOLATE 800 MG TAB PO SCH (11:36)
[2019-09-13] MEDS: lamiVUDine 150 MG TABLET PO SCH (11:37)
[2019-09-13] MEDS: LACTOBACILLUS ACIDOPHILUS 1 TABLET PO SCH (11:38)
[2019-09-13] MEDS: RITONAVIR 100 MG TABLET PO SCH (11:39)
[2019-09-13] MEDS: ENOXAPARIN NA (PORCINE) 40 MG/0.4 ML DISP.SYRIN SQ SCH (11:39)
[2019-09-13] MEDS: CHOLESTYRAMINE/SUCROSE 4 GM PACKET PO SCH ×2 (11:39→22:06)
[2019-09-13] MEDS: BUDESONIDE/FORMETEROL FUMARATE 80/4.5 mcg INHALER IH SCH ×2 (11:40→22:07)
[2019-09-13] MEDS: ABACAVIR SULFATE 300 MG TABLET PO SCH (11:41)
--- NOTE | 2019-09-13 14:10 | PN ---
Teaching Attending Note Name of Resident: Gina Marion ATTENDING PHYSICIAN STATEMENT I saw and evaluated the patient. I reviewed the resident's note and discussed the case with the resident. I agree with the resident's findings and plan as documented. SUBJECTIVE: OBJECTIVE: Vital Signs Period Temp Pulse Resp BP Sys/[place]man Pulse Ox Last 24 Hr 97.6 F-98.3 F 85-111 18-20 135-159/83-93 96-98 Laboratory Results - last 24 hr 09/10/19 09/13/19 09/13/19 20:55 07:15 07:15 WBC 4.5 3.6 L RBC 3.34 L Hgb 10.0 L Hct 30.4 L MCV 91.1 MCH 30.0 MCHC 33.0 RDW 15.6 Plt Count 226 MPV 8.2 Absolute Neuts (auto) 1.2 L Absolute Lymphs (auto) 1.9 Neutrophils % 32.9 L D Lymphocytes % 49.1 H Monocytes % 17.7 H Eosinophils % 0.0 D Basophils % 0.3 Nucleated RBC % 0 Lymphocytes 42 Nucleated RBCs TNP Sodium 143 Potassium 3.6 Chloride 113 H Carbon Dioxide 23 Anion Gap 7 L BUN 8.7 Creatinine 0.8 Est GFR (CKD-EPI)AfAm 90.94 Est GFR (CKD-EPI)NonAf 78.46 Random Glucose 108 H Calcium 8.8 Phosphorus 2.2 L Magnesium 1.9 Absolute CD3 Count 1267 % CD3+ Lymphocytes 66.7 Absolute CD4 [place] 238 L % CD4+ Lymphocyte 12.5 L CD4/CD8 Ratio 0.25 L % CD8+ Lymphocyte 49.2 H Absolute CD8 Count 935 H Current Medications Generic Name Dose Route Start Last Admin Trade Name Freq PRN Reason Stop Dose Admin Abacavir Sulfate 600 mg 09/10/19 10:00 09/13/19 11:41 Ziagen - PO 600 mg DAILY SHERI Administration Acetaminophen 650 mg 09/10/19 02:45 09/12/19 09:53 Tylenol - PO 650 mg Q6H PRN Administration FEVER Albuterol Sulfate 1 amp 09/12/19 10:42 09/13/19 11:58 Ventolin 0.083% Nebulizer Soln - NEB 1 amp Q4H PRN Administration WHEEZING Atorvastatin Calcium 10 mg 09/09/19 22:00 09/12/19 21:55 Lipitor - PO 10 mg HS SHERI Administration Budesonide/Formoterol Fumarate 2 puff 09/09/19 22:00 09/13/19 11:40 Symbicort 80/4.5mcg - IH 2 puff BID SHERI Administration Cholestyramine Resin 4 gm 09/11/19 20:15 09/13/19 11:39 Questran Packet - PO 4 gm BID SHERI Administration Darunavir 800 mg 09/10/19 10:00 09/13/19 11:36 Prezista - PO 800 mg DAILY SHERI Administration Enoxaparin Sodium 40 mg 09/11/19 10:00 09/13/19 11:39 Lovenox - SQ Not Given DAILY SHERI Gabapentin 300 mg 09/09/19 22:00 09/12/19 21:56 Neurontin - PO 300 mg HS SHERI Administration Sodium Chloride 1,000 mls @ 75 mls/hr 09/10/19 16:45 09/13/19 08:13 Normal Saline - IV Not Given ASDIR SHERI Lactobacillus Acidophilus 1 tab 09/10/19 10:00 09/13/19 11:38 Bacid - PO 1 tab DAILY SHERI Administration Lamivudine 300 mg 09/10/19 10:00 09/13/19 11:37 Epivir - PO 300 mg DAILY SHERI Administration Mirtazapine 15 mg 09/09/19 22:00 09/12/19 21:56 Remeron - PO 15 mg HS SHERI Administration Oseltamivir Phosphate 30 mg 09/09/19 17:45 09/12/19 21:56 Tamiflu - PO 09/14/19 17:44 30 mg BID SHERI Administration Prednisone 40 mg 09/13/19 10:00 09/13/19 11:35 Deltasone - PO 40 mg DAILY SHERI Administration Ritonavir 100 mg 09/10/19 10:00 09/13/19 11:39 Norvir - PO 100 mg DAILY SHERI Administration Valacyclovir HCl 1,000 mg 09/10/19 22:00 09/13/19 11:36 Valtrex - PO 1,000 mg BID SHERI Administration Zolpidem Tartrate 5 mg 09/09/19 17:02 09/12/19 21:56 Ambien - PO 5 mg HS PRN Administration INSOMNIA ASSESSMENT AND PLAN:
[2019-09-13] MEDS ORDERED: PT OWN MED DRAWER 7, Y5N ONE ×4 (14:29→21:17)
[2019-09-13] MEDS: OSELTAMIVIR PHOSPHATE 30 MG CAPSULE PO SCH ×2 (14:35→22:07)
--- NOTE | 2019-09-13 15:00 | PN ---
Progress Note (short form) - Note Progress Note: diarrhea resolved continues to wheeze Vital Signs Period Temp Pulse Resp BP Sys/Inman Pulse Ox Last 24 Hr 97.6 F-98.3 F 85-114 18-20 121-159/72-93 96-98 cor-rrr lungs -wheezing bilaterally abd-soft, nt ext no edema CBC, BMP 09/13/19 07:15 09/13/19 07:15 Microbiology 09/09/19 14:17 Blood - Peripheral Venous Blood Culture - Preliminary NO GROWTH OBTAINED AFTER 96 HOURS, INCUBATION TO CONTINUE FOR 1 DAYS. 09/09/19 14:17 Blood - Peripheral Venous Blood Culture - Preliminary NO GROWTH OBTAINED AFTER 96 HOURS, INCUBATION TO CONTINUE FOR 1 DAYS. 09/09/19 15:28 Stool Salmonella/Shigella Culture - Final NO GROWTH OF SALMONELLA OR SHIGELLA SPECIES OBTAINED 09/09/19 15:28 Stool Campylobacter Culture - Final NO GROWTH OF CAMPYLOBACTER SPECIES OBTAINED 09/09/19 15:28 Stool Yersinia Culture - Final NO GROWTH OF YERSINIA SPECIES OBTAINED 09/09/19 15:28 Stool Vibrio Culture - Final NO GROWTH OF VIBRIO SPECIES OBTAINED 09/09/19 15:28 Stool Escherichia coli 0157 Culture - Final NO GROWTH OF E COLI 0157 OBTAINED 09/10/19 05:43 Stool Gram Stain - Final 09/10/19 05:43 Stool Clostridioides difficile Antigen - Final 09/10/19 05:43 Stool Clostridioides difficile Toxin Assay - Final 09/10/19 05:43 Stool Cryptosporidium Antigen - Final 09/10/19 05:43 Stool Giardia Antigen (JUSTINA) - Final a/p wheeizing- persistent, on prednisone and nebs influenza A- on tamiflu gastroenteritis- resolved stool studies are negative hiv- continue art genital HSV- continue valtrex
[2019-09-13] MEDS ORDERED: LEVALBUTEROL HCL 0.31 MG/3 ML VIAL.NEB IH SCH (15:33)
[2019-09-13] MEDS ORDERED: methylPREDNISolone NA SUCC 40 MG/1 ML VIAL IVPUSH ONE (15:33)
--- NOTE | 2019-09-13 16:53 | PN ---
Progress Note (short form) - Note Progress Note: Hospitalist Medicine Wants to go home. Diarrhea has resolved, however with persistent wheezing. Per pt, Xopenex has worked well for her in the past. Will give stat medrol 40mg IVP x 1. Vitals 09/13/19 14:00 Temperature 97.9 F Pulse Rate 114 H Respiratory 20 Rate Blood Pressure 121/72 Physical Exam general: pleasant. resting in bed, in NAD. heent: NCAT, PERRLA, moist MM neck: supple cardio: S1, S2 RRR. no r/m/g pulm: +wheezing. no accessory m usage, however w/ HERMAN abdomen: soft, nontender, nondistended LE: 2+ pulses, no edema neuro: Magnetic Doctor 2-12 grossly intact Laboratory Tests 09/13/19 09/13/19 07:15 07:15 WBC 3.6 L Hgb 10.0 L Hct 30.4 L Plt Count 226 Sodium 143 Potassium 3.6 Chloride 113 H Carbon Dioxide 23 Anion Gap 7 L BUN 8.7 Creatinine 0.8 Random Glucose 108 H Calcium 8.8 Phosphorus 2.2 L Magnesium 1.9 Microbiology 09/10/19 05:43 Stool Gram Stain - Final 09/10/19 05:43 Stool Cryptosporidium Antigen - Final 09/10/19 05:43 Stool Giardia Antigen (JUSTINA) - Final 09/10/19 05:43 Stool Clostridioides difficile Antigen - Final 09/10/19 05:43 Stool Clostridioides difficile Toxin Assay - Final 09/09/19 15:28 Stool Salmonella/Shigella Culture - Final 09/09/19 15:28 Stool Escherichia coli 0157 Culture - Final NO GROWTH OF SALMONELLA OR SHIGELLA SPECIES OBTAINED NO GROWTH OF CAMPYLOBACTER SPECIES OBTAINED NO GROWTH OF YERSINIA SPECIES OBTAINED NO GROWTH OF VIBRIO SPECIES OBTAINED NO GROWTH OF E COLI 0157 OBTAINED 09/09/19 14:17 Blood - Peripheral Venous Blood Culture - Preliminary NO GROWTH OBTAINED AFTER 96 HOURS, INCUBATION TO CONTINUE FOR 1 DAYS. 09/09/19 14:17 Blood - Peripheral Venous Blood Culture - Preliminary NO GROWTH OBTAINED AFTER 96 HOURS, INCUBATION TO CONTINUE FOR 1 DAYS. Imaging 09/09/19: CXR: without evidence acute abnormality, does not appear to have any effusion or infiltrate. f/u official report 09/09/19: EKG: +sinus tach, 117bpm rate. qtc 504ms 09/13/19: CXR: slight crowding of markings at R base but no sign of fluid overload ASSESSMENT/PLAN: 64 y/o F with PMH HIV (on HAART, CD4 390 06/2019), COPD (not on home ), HTN, HLD, HSV, who presents to the ED c/o weakness and diarrhea that has been occurring over the last three days. #COPD exacerbation -started on medrol 40mg IVPB q8h, xopenex, atrovent -Pulm: Dr. Brandon #FluA+ -on tamiflu 30 mg BID (based on cr clearance) x 5 day course (to finish 09/14) -c/w IVF, supportive care -iso precautions -caution w/antiemetics as prolonged qtc can give tigan if needed #infectious vs. inflammatory diarrhea - resolved -possible also 2/2 flu, as pt fluA+ -stool cx(-); d/w microbio lab. -c. diff (-) -off abx -ID: Dr. Ivey #hx HIV (on HAART, CD4 390 06/2019) -c/w darunavir, ritonavir, abacavir/lamivudine -ID: Dr. Ivey #LE edema -hold lasix for now, as pt dry -can restart if vol status improves #HSV -still w/ genital lesions -c/w valtrex 1g BID. was to c/w 500mg BID once resolved #FELIZ - resolved #F/E/N IV NS 75 cc/hr continue to follow lytes na controlled/ low cholesterol diet #PPX DVT: SCD's #Dispo monitoring on med-surg qualified for home
--- NOTE | 2019-09-13 16:54 | CON.PULM ---
Consult Consult Specialty:: PULM/CCM Referred by:: Hospitalist Reason for Consultation:: SOB - History of Present Illness Chief Complaint: SOB History of Present Illness: 64 F, active smoker (admits to a "few" a day), HIV (on HAART, CD4 390 06/2019), COPD (not O2 dependent), HTN, HLD, and HSV. Admitted via the ER due to weakness and diarrhea for the last three days. No travel history or sick contacts. No hemoptysis of night sweats. There is no history consistent with OSAS. Found to be Influenza (+). CXR: no acute process - History Source History Provided By: Patient Limitations to Obtaining History: No Limitations - Past Medical History ROVING WINDER: Yes: Peripheral Neuropathy. No: Alzheimer's, CVA, Dementia, Migraine, Multiple Sclerosis, Parkinson's, Seizure, Syncope, TIA, Vertigo, Other Pulmonary: Yes: Bronchitis, COPD, O2 Dependent, Pneumonia. No: Asthma, Cancer, Previously Intubated, Pulmonary Embolus, Pulmonary Fibrosis, Sleep Apnea Gastrointestinal: Yes: Other ([place] Esophagitis from EGD 06/19/14). No: Ascites, Cancer, Constipation, Crohn's Disease, Diverticulitis, Diverticulosis, Esophageal Varices, Gastritis, GERD, GI Bleed, Hemorrhoids, Hiatal Hernia, Inflamatory Bowel Disease, Irritable Bowel Disease, Pancreatitis, Peptic Ulcer Disease, Ulcerative Colitis ...LMP: 01/04/15 ...: No Infectious Disease: Yes: AIDS, HIV, STD's Psych: Yes: Other (anorexia) Additional Medical History: Neuropathy of the feet. anorexia. breast cyst removed. ovarian cyst removed. c/s for twins - Past Surgical History Past Surgical History: Yes: Breast Biopsy, , Tonsillectomy - Alcohol/Substance Use Hx Alcohol Use: No History of Substance Use: reports: None - Smoking History Smoking history: Unknown if ever smoked Have you smoked in the past 12 months: No Aproximately how many cigarettes per day: 2 If you are a former smoker, when did you quit?: 2 months ago - Social History Usual Living Arrangement: With Child ADL: Independent Occupation: on disability History of Recent Travel: Yes ([place] 07/13 to 07/18) Home Medications - Allergies Allergies/Adverse Reactions: Allergies Allergy/AdvReac Type Severity Reaction Status Date / Time Penicillins Allergy Severe Swelling Verified 09/09/19 13:32 [place]ISE AdvReac Uncoded 09/09/19 13:32 - Home Medications Home Medications: Ambulatory Orders Lactobacillus Acidophilus [Bacid -] 1 tab PO DAILY 28 Days #28 tab 10/04/18 Albuterol Sulfate Inhaler - [Ventolin HFA Inhaler -] 1 - 2 inh PO Q4H PRN #1 inhaler 04/02/19 Mirtazapine 15 mg PO HS #30 tablet 07/21/19 Zolpidem Tartrate [Ambien] 5 mg PO HS #30 tablet MDD 1 07/21/19 Albuterol 0.083% Nebulizer [place] [Ventolin 0.083% Nebulizer Soln -] 1 neb NEB Q6H PRN #120 vial 08/05/19 Budesonide/Formeterol Fumarate [SYMBICORT 80/4.5mcg -] 2 inh PO BID #1 cannister 08/09/19 Levalbuterol HCl [Xopenex] 0.63 mg IH QID #4 box 08/09/19 Nystatin Cream [Mycostatin Cream -] 1 applic TP BID #1 applic 08/09/19 Nystatin Oral Suspension - [Nystatin Oral Susp 037022 Units/5 ML -] 5 ml PO Q6H #200 cup 08/09/19 Levalbuterol Tartrate [Levalbuterol Tartrate Hfa] 15 gm IH QID #1 inhaler Tiotropium [place] [Spiriva Respimat] 4 gm IH DAILY #1 mist.inhal 08/18/19 Valacyclovir HCl [Valtrex -] 1,000 mg PO BID #28 tablet 08/23/19 Acetaminophen [Tylenol] 650 mg PO Q6H PRN #100 tablet 08/30/19 Gabapentin [Neurontin -] 300 mg PO HS #30 capsule 08/30/19 Abacavir Sulfate/Lamivudine [Abacavir-Lamivudine 600-300 mg] 1 each PO DAILY # 30 tablet 09/06/19 Darunavir Ethanolate [Prezista -] 800 mg PO DAILY #30 tablet 09/06/19 Furosemide [Lasix -] 20 mg PO DAILY #30 tablet 09/06/19 Pravastatin Sodium 10 mg PO DAILY #30 tablet 09/06/19 Ritonavir 100 mg PO DAILY #30 tablet 09/06/19 Oseltamivir Phosphate [Tamiflu -] 30 mg PO BID #3 capsule 09/13/19 Pantoprazole Sodium [Protonix] 40 mg PO DAILY #30 tablet. 09/13/19 Prednisone 10 mg PO ASDIR #23 tab.ds.pk 09/13/19 Review of Systems - Review of Systems Constitutional: reports: Fever, Lethargy, Malaise. denies: Chills, Night Sweats , Unintentional Wgt. Loss Eyes: reports: No Symptoms HENT: reports: No Symptoms Neck: reports: No Symptoms Cardiovascular: reports: Shortness of Breath. denies: Chest Pain, Edema, Palpitations Respiratory: reports: Cough, SOB, SOB on Exertion, Wheezing. denies: Exercise Intolerance, Hemoptysis, Orthopnea, PND, Snoring Gastrointestinal: reports: Diarrhea, Nausea. denies: Rectal Bleeding, Vomiting Blood Genitourinary: reports: No Symptoms Breasts: reports: No Symptoms Reported Musculoskeletal: reports: No Symptoms Integumentary: reports: No Symptoms Neurological: reports: No Symptoms Endocrine: reports: No Symptoms Hematology/Lymphatic: reports: No Symptoms Psychiatric: reports: No Symptoms Physical Exam Vital Sings: Vital Signs Temperature 97.9 F 09/13/19 14:00 Pulse Rate 114 H 09/13/19 14:00 Respiratory Rate 09/13/19 14:00 Blood Pressure 121/72 09/13/19 14:00 O2 Sat by Pulse Oximetry (%) 98 09/12/19 22:00 Constitutional: Yes: Mild Distress Eyes: Yes: Conjunctiva Clear, EOM Intact HENT: Yes: Atraumatic, Normocephalic Neck: Yes: Trachea Midline Cardiovascular: Yes: Regular Rate and Rhythm Respiratory: Yes: Cough, Diminished, Poor Air Entry, Rhonchi, SOB, SOB on Exertion, Tachypnea, Wheezes. No: Accessory Muscle Use, Rales, Stridor ...Inspection: Yes: WNL ...Clubbing: No Gastrointestinal: Yes: Normal Bowel Sounds, Soft Renal/: Yes: WNL Musculoskeletal: Yes: WNL Extremities: Yes: WNL Edema: No Peripheral Pulses WNL: Yes Integumentary: Yes: WNL Neurological: Yes: WNL, Alert, Oriented ...Motor Strength: WNL Psychiatric: Yes: WNL, Alert, Oriented Labs: CBC, BMP 09/13/19 07:15 09/13/19 07:15 Imaging - Results Chest X-ray: Report Reviewed, Image Reviewed Problem List - Problems (1) Flu Code(s): J11.1 - FLU DUE TO UNIDENTIFIED INFLUENZA VIRUS W OTH RESP MANIFEST (2) Acute gastroenteritis Code(s): K52.9 - NONINFECTIVE GASTROENTERITIS AND COLITIS, UNSPECIFIED (3) COPD exacerbation Code(s): J44.1 - CHRONIC OBSTRUCTIVE PULMONARY DISEASE W (ACUTE) EXACERBATION (4) Cough Code(s): R05 - COUGH (5) Hypertension Code(s): I10 - ESSENTIAL (PRIMARY) HYPERTENSION (6) Neuropathy Code(s): G62.9 - POLYNEUROPATHY, UNSPECIFIED (7) HIV (human immunodeficiency virus infection) Code(s): Z21 - ASYMPTOMATIC HUMAN IMMUNODEFICIENCY VIRUS INFECTION STATUS Qualifiers: HIV symptom status: symptomatic Qualified Code(s): B20 - Human immunodeficiency virus [HIV] disease (8) Nicotine dependence Code(s): F17.200 - NICOTINE DEPENDENCE, UNSPECIFIED, UNCOMPLICATED Assessment/Plan Change to IV Medrol Xopenex with Atrovent ordered Atrovent PRN O2 as needed Smoking cessation discussed PFTs once stable as an outpatient Yearly LDCT Chest (Had a CTA 07/26: no nodules/masses) VTE prophylaxis Tamiflu Will follow Thank you. Dr Brandon
--- NOTE | 2019-09-13 17:39 | PN ---
Teaching Attending Note Name of Resident: Gina Marion ATTENDING PHYSICIAN STATEMENT I saw and evaluated the patient. I reviewed the resident's note and discussed the case with the resident. I agree with the resident's findings and plan as documented. SUBJECTIVE: Diarrhea improved. She now feels like she is wheezing. OBJECTIVE: Vital Signs Period Temp Pulse Resp BP Sys/[place] Pulse Ox Last 24 Hr 97.6 F-98.3 F 85-114 18-20 121-159/72-92 95-98 HEART: S1S2, RRR LUNGS: Diffuse wheezes ABDOMEN: Soft, non-distended, non-tender, normal BS EXTREMITIES: No edema Laboratory Results - last 24 hr 09/13/19 09/13/19 07:15 07:15 WBC 3.6 L RBC 3.34 L Hgb 10.0 L Hct 30.4 L MCV 91.1 MCH 30.0 MCHC 33.0 RDW 15.6 Plt Count 226 MPV 8.2 Absolute Neuts (auto) 1.2 L Neutrophils % 32.9 L D Lymphocytes % 49.1 H Monocytes % 17.7 H Eosinophils % 0.0 D Basophils % 0.3 Nucleated RBC % 0 Sodium 143 Potassium 3.6 Chloride 113 H Carbon Dioxide 23 Anion Gap 7 L BUN 8.7 Creatinine 0.8 Est GFR (CKD-EPI)AfAm 90.94 Est GFR (CKD-EPI)NonAf 78.46 Random Glucose 108 H Calcium 8.8 Phosphorus 2.2 L Magnesium 1.9 Current Medications Generic Name Dose Route Start Last Admin Trade Name Freq PRN Reason Stop Dose Admin Abacavir Sulfate 600 mg 09/10/19 10:00 09/13/19 11:41 Ziagen - PO 600 mg DAILY SHERI Administration Acetaminophen 650 mg 09/10/19 02:45 09/12/19 09:53 Tylenol - PO 650 mg Q6H PRN Administration FEVER Atorvastatin Calcium 10 mg 09/09/19 22:00 09/12/19 21:55 Lipitor - PO 10 mg HS SHERI Administration Budesonide/Formoterol Fumarate 2 puff 09/09/19 22:00 09/13/19 11:40 Symbicort 80/4.5mcg - IH 2 puff BID SHERI Administration Cholestyramine Resin 4 gm 09/11/19 20:15 09/13/19 11:39 Questran Packet - PO 4 gm BID SHERI Administration Darunavir 800 mg 09/10/19 10:00 09/13/19 11:36 Prezista - PO 800 mg DAILY SHERI Administration Enoxaparin Sodium 40 mg 09/11/19 10:00 09/13/19 11:39 Lovenox - SQ Not Given DAILY SHERI Gabapentin 300 mg 09/09/19 22:00 09/12/19 21:56 Neurontin - PO 300 mg HS SHERI Administration Sodium Chloride 1,000 mls @ 75 mls/hr 09/10/19 16:45 09/13/19 17:01 Normal Saline - IV Not Given ASDIR SHERI Ipratropium [place] 1 amp 09/13/19 20:00 Atrovent 0.02% Nebulizer - NEB RTID SHERI Ipratropium [place] 1 amp 09/13/19 16:50 Atrovent 0.02% Nebulizer - NEB Q4H PRN WHEEZING Lactobacillus Acidophilus 1 tab 09/10/19 10:00 09/13/19 11:38 Bacid - PO 1 tab DAILY SHERI Administration Lamivudine 300 mg 09/10/19 10:00 09/13/19 11:37 Epivir - PO 300 mg DAILY SHERI Administration Levalbuterol HCl 0.31 mg 09/13/19 20:00 Xopenex IH RTID SHERI Methylprednisolone Sodium Succinate 40 mg 09/13/19 18:00 Solu-Medrol - IVPUSH Q8H-IV SHERI Mirtazapine 15 mg 09/09/19 22:00 09/12/19 21:56 Remeron - PO 15 mg HS SHERI Administration Oseltamivir Phosphate 30 mg 09/09/19 17:45 09/13/19 14:35 Tamiflu - PO 09/14/19 17:44 30 mg BID SHERI Administration Ritonavir 100 mg 09/10/19 10:00 09/13/19 11:39 Norvir - PO 100 mg DAILY SHERI Administration Valacyclovir HCl 1,000 mg 09/10/19 22:00 09/13/19 11:36 Valtrex - PO 1,000 mg BID SHERI Administration Zolpidem Tartrate 5 mg 09/09/19 17:02 09/12/19 21:56 Ambien - PO 5 mg HS PRN Administration INSOMNIA ASSESSMENT AND PLAN: This is a 64 year old woman with a history of HTN, hyperlipidemia, COPD, HIV, HSV, who presented to the ED with weakness and diarrhea. 1. Infectious gastroenteritis - Stool culture negative - Diarrhea improved 2. Influenza A - Continue Tamiflu (day 4/5) 3. HIV - Continue Epivir, Prezista, Ziagen, Norvir 4. Acute exacerbation of COPD - Prednisone changed to SoluMedrol - Xopenex, Atrovent - Continue Symbicort 5. HSV - Continue Valtrex 6. Acute kidney injury - Resolved 7. Hypokalemia - Resolved 8. HTN 9. Hyperlipidemia - Continue Questran
[2019-09-13] MEDS: IPRATROPIUM BR 0.02% 0.5 MG/2.5 ML VIAL.NEB. NEB PRN (17:55)
[2019-09-13] MEDS: methylPREDNISolone NA SUCC 40 MG/1 ML VIAL IVPUSH SCH (18:41)
[2019-09-13] MEDS: LEVALBUTEROL HCL 0.31 MG/3 ML VIAL.NEB IH SCH (20:30)
[2019-09-13] MEDS: IPRATROPIUM BR 0.02% 0.5 MG/2.5 ML VIAL.NEB. NEB SCH (20:30)
[2019-09-13] MEDS: ATORVASTATIN CA 10 MG TABLET (FP) PO SCH (22:06)
[2019-09-13] MEDS: GABAPENTIN 300 MG CAPSULE PO SCH (22:06)
[2019-09-13] MEDS: MIRTAZAPINE 15 MG TABLET (FP) PO SCH (22:06)
[2019-09-14] MEDS: methylPREDNISolone NA SUCC 40 MG/1 ML VIAL IVPUSH SCH ×3 (02:24→18:35)
[2019-09-14] MEDS: LEVALBUTEROL HCL 0.31 MG/3 ML VIAL.NEB IH SCH ×3 (07:35→20:24)
[2019-09-14] MEDS: IPRATROPIUM BR 0.02% 0.5 MG/2.5 ML VIAL.NEB. NEB SCH ×3 (07:35→20:23)
[2019-09-14] MEDS ORDERED: LEVALBUTEROL HCL 0.31 MG/3 ML VIAL.NEB IH SCH (08:00)
--- NOTE | 2019-09-14 08:11 | PN ---
Progress Note (short form) - Note Progress Note: Feels much better today. Less SOB. No acute events overnight. Intake & Output 09/11/19 09/12/19 09/13/19 09/14/19 23:59 23:59 23:59 23:59 Intake Total 1750 1100 300 0 Balance 1750 1100 300 0 Last Vital Signs Temp Pulse Resp BP Pulse Ox 97.6 F 93 H 20 137/92 96 09/14/19 06:12 09/14/19 06:12 09/14/19 06:12 09/14/19 06:12 09/13/19 22:00 Active Medications Abacavir Sulfate (Ziagen -) 600 mg PO DAILY [facility] Last Admin: 09/13/19 11:41 Dose: 600 mg Acetaminophen (Tylenol -) 650 mg PO Q6H PRN PRN Reason: FEVER Last Admin: 09/12/19 09:53 Dose: 650 mg Atorvastatin Calcium (Lipitor -) 10 mg PO [facility] Last Admin: 09/13/19 22:06 Dose: 10 mg Budesonide/Formoterol Fumarate (Symbicort 80/4.5mcg -) 2 puff IH BID [facility] Last Admin: 09/13/19 22:07 Dose: 2 puff Cholestyramine Resin (Questran Packet -) 4 gm PO BID [facility] Last Admin: 09/13/19 22:06 Dose: 4 gm Darunavir (Prezista -) 800 mg PO DAILY [facility] Last Admin: 09/13/19 11:36 Dose: 800 mg Enoxaparin Sodium (Lovenox -) 40 mg SQ DAILY [facility] Last Admin: 09/13/19 11:39 Dose: Not Given Gabapentin (Neurontin -) 300 mg PO HS [facility] Last Admin: 09/13/19 22:06 Dose: 300 mg Sodium Chloride (Normal Saline -) 1,000 mls @ 75 mls/hr IV ASDIR [facility] Last Admin: 09/13/19 17:01 Dose: Not Given Ipratropium [place] (Atrovent 0.02% Nebulizer -) 1 amp NEB RTID [facility] Last Admin: 09/13/19 20:30 Dose: 1 amp Ipratropium [place] (Atrovent 0.02% Nebulizer -) 1 amp NEB Q4H PRN PRN Reason: WHEEZING Last Admin: 09/13/19 17:55 Dose: 1 amp Lactobacillus Acidophilus (Bacid -) 1 tab PO DAILY [facility] Last Admin: 09/13/19 11:38 Dose: 1 tab Lamivudine (Epivir -) 300 mg PO DAILY [facility] Last Admin: 09/13/19 11:37 Dose: 300 mg Levalbuterol HCl (Xopenex) 0.31 mg IH RTID [facility] Last Admin: 09/13/19 20:30 Dose: 0.31 mg Methylprednisolone Sodium Succinate (Solu-Medrol -) 40 mg IVPUSH Q8H-IV [facility] Last Admin: 09/14/19 02:24 Dose: 40 mg Mirtazapine (Remeron -) 15 mg PO HS [facility] Last Admin: 09/13/19 22:06 Dose: 15 mg Oseltamivir Phosphate (Tamiflu -) 30 mg PO BID [facility] Stop: 09/14/19 17:44 Last Admin: 09/13/19 22:07 Dose: 30 mg Ritonavir (Norvir -) 100 mg PO DAILY [facility] Last Admin: 09/13/19 11:39 Dose: 100 mg Valacyclovir HCl (Valtrex -) 1,000 mg PO BID [facility] Last Admin: 09/13/19 22:07 Dose: 1,000 mg Zolpidem Tartrate (Ambien -) 5 mg PO HS PRN PRN Reason: INSOMNIA Last Admin: 09/12/19 21:56 Dose: 5 mg Constitutional: Yes: NAD Eyes: Yes: Conjunctiva Clear, EOM Intact HENT: Yes: Atraumatic, Normocephalic Neck: Yes: Trachea Midline Cardiovascular: Yes: Regular Rate and Rhythm Respiratory: Yes: Cough, Diminished, Rhonchi, Less wheezes. No: Accessory Muscle Use, Rales, Stridor ...Inspection: Yes: WNL ...Clubbing: No Gastrointestinal: Yes: Normal Bowel Sounds, Soft Renal/: Yes: WNL Musculoskeletal: Yes: WNL Extremities: Yes: WNL Edema: No Peripheral Pulses WNL: Yes Integumentary: Yes: WNL Neurological: Yes: WNL, Alert, Oriented ...Motor Strength: WNL Psychiatric: Yes: WNL, Alert, Oriented Labs: Laboratory Results - last 24 hr 09/10/19 09/13/19 09/13/19 05:45 07:15 07:15 WBC 3.6 L RBC 3.34 L Hgb 10.0 L Hct 30.4 L MCV 91.1 MCH 30.0 MCHC 33.0 RDW 15.6 Plt Count 226 MPV 8.2 Absolute Neuts (auto) 1.2 L Neutrophils % 32.9 L D Lymphocytes % 49.1 H Monocytes % 17.7 H Eosinophils % 0.0 D Basophils % 0.3 Nucleated RBC % 0 Sodium 143 Potassium 3.6 Chloride 113 H Carbon Dioxide 23 Anion Gap 7 L BUN 8.7 Creatinine 0.8 Est GFR (CKD-EPI)AfAm 90.94 Est GFR (CKD-EPI)NonAf 78.46 Random Glucose 108 H Calcium 8.8 Phosphorus 2.2 L Magnesium 1.9 Stool O & P Wet [place] O & P Permanent Slide Final report Problem List - Problems (1) Flu Code(s): J11.1 - FLU DUE TO UNIDENTIFIED INFLUENZA VIRUS W OTH RESP MANIFEST (2) Acute gastroenteritis Code(s): K52.9 - NONINFECTIVE GASTROENTERITIS AND COLITIS, UNSPECIFIED (3) COPD exacerbation Code(s): J44.1 - CHRONIC OBSTRUCTIVE PULMONARY DISEASE W (ACUTE) EXACERBATION (4) Cough Code(s): R05 - COUGH (5) Hypertension Code(s): I10 - ESSENTIAL (PRIMARY) HYPERTENSION (6) Neuropathy Code(s): G62.9 - POLYNEUROPATHY, UNSPECIFIED (7) HIV (human immunodeficiency virus infection) Code(s): Z21 - ASYMPTOMATIC HUMAN IMMUNODEFICIENCY VIRUS INFECTION STATUS Qualifiers: HIV symptom status: symptomatic Qualified Code(s): B20 - Human immunodeficiency virus [HIV] disease (8) Nicotine dependence Code(s): F17.200 - NICOTINE DEPENDENCE, UNSPECIFIED, UNCOMPLICATED Assessment/Plan Medrol Xopenex with Atrovent Atrovent PRN O2 as needed Smoking cessation discussed PFTs once stable as an outpatient Yearly LDCT Chest (Had a CTA 07/26: no nodules/masses) VTE prophylaxis Tamiflu If clinically stable/improved later in the day, there is a potential to change to PO therapy Dr Brandon Problem List - Problems (1) Flu Code(s): J11.1 - FLU DUE TO UNIDENTIFIED INFLUENZA VIRUS W OTH RESP MANIFEST (2) Acute gastroenteritis Code(s): K52.9 - NONINFECTIVE GASTROENTERITIS AND COLITIS, UNSPECIFIED (3) COPD exacerbation Code(s): J44.1 - CHRONIC OBSTRUCTIVE PULMONARY DISEASE W (ACUTE) EXACERBATION (4) Cough Code(s): R05 - COUGH (5) Hypertension Code(s): I10 - ESSENTIAL (PRIMARY) HYPERTENSION (6) Neuropathy Code(s): G62.9 - POLYNEUROPATHY, UNSPECIFIED (7) HIV (human immunodeficiency virus infection) Code(s): Z21 - ASYMPTOMATIC HUMAN IMMUNODEFICIENCY VIRUS INFECTION STATUS Qualifiers: HIV symptom status: symptomatic Qualified Code(s): B20 - Human immunodeficiency virus [HIV] disease (8) Nicotine dependence Code(s): F17.200 - NICOTINE DEPENDENCE, UNSPECIFIED, UNCOMPLICATED
[2019-09-14 08:23] LABS: BASO % 0.4 % (0-2.0); HEMATOCRIT 32.8 % (32.4-45.2); HEMOGLOBIN 10.7 GM/dL (10.7-15.3); LYMPH % 29.8 % (8-40); MCH 30.1 pg (25.7-33.7); MCHC 32.7 g/dl (32.0-36.0); MEAN CELL VOLUME 92.1 fl (80-96); MEAN PLT VOLUME 8.3 fl (7.5-11.1); MONO % 5.8 % (3.8-10.2); PLATELET COUNT 282 K/MM3 (134-434); RBC 3.56 M/mm3 (3.60-5.2); RDW 15.7 % (11.6-15.6); WHITE BLOOD COUNT 4.5 K/mm3 (4.0-10.0)
[2019-09-14 09:20] LABS: BLOOD UREA NITROGEN 11.9 mg/dL (7-18); CALCIUM 8.8 mg/dL (8.5-10.1); MAGNESIUM 2.2 mg/dL (1.8-2.4); PHOSPHOROUS 2.9 mg/dL (2.5-4.9); POTASSIUM 4.3 mmol/L (3.5-5.1)
[2019-09-14] MEDS ORDERED: PT OWN MED DRAWER 7, Y5N ONE (09:22)
--- NOTE | 2019-09-14 11:06 | PN ---
Progress Note (short form) - Note Progress Note: diarrhea resolved wheezing imroved Vital Signs Vital Signs Period Temp Pulse Resp BP Sys/Inman Pulse Ox Last 24 Hr 97.6 F-97.9 F 93-114 20-20 121-144/72-97 96-98 cor-rrr lungs scattered wheeze bilaterally abd soft,nt ext no edema CBC, BMP 09/14/19 07:45 09/14/19 07:45 Microbiology 09/09/19 14:17 Blood - Peripheral Venous Blood Culture - Preliminary NO GROWTH OBTAINED AFTER 96 HOURS, INCUBATION TO CONTINUE FOR 1 DAYS. 09/09/19 14:17 Blood - Peripheral Venous Blood Culture - Preliminary NO GROWTH OBTAINED AFTER 96 HOURS, INCUBATION TO CONTINUE FOR 1 DAYS. 09/09/19 15:28 Stool Salmonella/Shigella Culture - Final NO GROWTH OF SALMONELLA OR SHIGELLA SPECIES OBTAINED 09/09/19 15:28 Stool Campylobacter Culture - Final NO GROWTH OF CAMPYLOBACTER SPECIES OBTAINED 09/09/19 15:28 Stool Yersinia Culture - Final NO GROWTH OF YERSINIA SPECIES OBTAINED 09/09/19 15:28 Stool Vibrio Culture - Final NO GROWTH OF VIBRIO SPECIES OBTAINED 09/09/19 15:28 Stool Escherichia coli 0157 Culture - Final NO GROWTH OF E COLI 0157 OBTAINED 09/10/19 05:43 Stool Gram Stain - Final 09/10/19 05:43 Stool Clostridioides difficile Antigen - Final 09/10/19 05:43 Stool Clostridioides difficile Toxin Assay - Final 09/10/19 05:43 Stool Cryptosporidium Antigen - Final 09/10/19 05:43 Stool Giardia Antigen (JUSTINA) - Final a/p wheeizing- on medrol and nebs, insurance will not cover xopenex- clinic is trying to obtain influenza A- has completed tamiflu, will d/c gastroenteritis- resolved stool studies are negative hiv- continue art genital HSV- continue valtrex d/c per pulmonary she can f[facility]u [facility] with me
[2019-09-14] MEDS: DARUNAVIR ETHANOLATE 800 MG TAB PO SCH (11:14)
[2019-09-14] MEDS: LACTOBACILLUS ACIDOPHILUS 1 TABLET PO SCH (11:14)
[2019-09-14] MEDS: lamiVUDine 150 MG TABLET PO SCH (11:15)
[2019-09-14] MEDS: ENOXAPARIN NA (PORCINE) 40 MG/0.4 ML DISP.SYRIN SQ SCH (11:15)
[2019-09-14] MEDS: CHOLESTYRAMINE/SUCROSE 4 GM PACKET PO SCH ×2 (11:16→22:17)
[2019-09-14] MEDS: RITONAVIR 100 MG TABLET PO SCH (11:16)
[2019-09-14] MEDS: valACYclovir HCL 500 MG TABLET (FP) PO SCH ×2 (11:16→22:16)
[2019-09-14] MEDS: BUDESONIDE/FORMETEROL FUMARATE 80/4.5 mcg INHALER IH SCH ×2 (11:17→22:14)
[2019-09-14] MEDS: ABACAVIR SULFATE 300 MG TABLET PO SCH (11:17)
[2019-09-14] MEDS: OSELTAMIVIR PHOSPHATE 30 MG CAPSULE PO SCH (11:29)
--- NOTE | 2019-09-14 11:36 | PN ---
Teaching Attending Note Name of Resident: Gina Marion ATTENDING PHYSICIAN STATEMENT I saw and evaluated the patient. I reviewed the resident's note and discussed the case with the resident. I agree with the resident's findings and plan as documented. SUBJECTIVE: Patient feels that her breathing is improving. OBJECTIVE: Vital Signs Period Temp Pulse Resp BP Sys/Inman Pulse Ox Last 24 Hr 97.6 F-98.0 F 93-114 20-20 121-153/72-97 96-98 HEART: S1S2, RRR LUNGS: Scattered rhonchi and wheezes ABDOMEN: Soft, non-tender, non-distended, normal BS EXTREMITIES: No edema Laboratory Results - last 24 hr 09/10/19 09/14/19 09/14/19 05:45 07:45 07:45 WBC 4.5 RBC 3.56 L Hgb 10.7 Hct 32.8 MCV 92.1 MCH 30.1 MCHC 32.7 RDW 15.7 H Plt Count 282 D MPV 8.3 Absolute Neuts (auto) 2.9 Neutrophils % 64.0 D Lymphocytes % 29.8 D Monocytes % 5.8 Eosinophils % 0.0 Basophils % 0.4 Nucleated RBC % 0 Sodium 142 Potassium 4.3 Chloride 112 H Carbon Dioxide 20 L Anion Gap 11 BUN 11.9 Creatinine 1.0 Est GFR (CKD-EPI)AfAm 69.44 Est GFR (CKD-EPI)NonAf 59.91 Random Glucose 139 H Calcium 8.8 Phosphorus 2.9 Magnesium 2.2 Stool O & P Wet [place] O & P Permanent Slide Final report Current Medications Generic Name Dose Route Start Last Admin Trade Name Freq PRN Reason Stop Dose Admin Abacavir Sulfate 600 mg 09/10/19 10:00 09/14/19 11:17 Ziagen - PO 600 mg DAILY [facility] Administration Acetaminophen 650 mg 09/10/19 02:45 09/12/19 09:53 Tylenol - PO 650 mg Q6H PRN Administration FEVER Atorvastatin Calcium 10 mg 09/09/19 22:00 09/13/19 22:06 Lipitor - PO 10 mg HS [facility] Administration Budesonide/Formoterol Fumarate 2 puff 09/09/19 22:00 09/14/19 11:17 Symbicort 80/4.5mcg - IH 2 puff BID [facility] Administration Cholestyramine Resin 4 gm 09/11/19 20:15 09/14/19 11:16 Questran Packet - PO 4 gm BID [facility] Administration Darunavir 800 mg 09/10/19 10:00 09/14/19 11:14 Prezista - PO 800 mg DAILY [facility] Administration Enoxaparin Sodium 40 mg 09/11/19 10:00 09/14/19 11:15 Lovenox - SQ Not Given DAILY [facility] Gabapentin 300 mg 09/09/19 22:00 09/13/19 22:06 Neurontin - PO 300 mg HS [facility] Administration Sodium Chloride 1,000 mls @ 75 mls/hr 09/10/19 16:45 09/13/19 17:01 Normal Saline - IV Not Given ASDIR [facility] Ipratropium [place] 1 amp 09/13/19 20:00 09/14/19 07:35 Atrovent 0.02% Nebulizer - NEB 1 amp RTID [facility] Administration Ipratropium [place] 1 amp 09/13/19 16:50 09/13/19 17:55 Atrovent 0.02% Nebulizer - NEB 1 amp Q4H PRN Administration WHEEZING Lactobacillus Acidophilus 1 tab 09/10/19 10:00 09/14/19 11:14 Bacid - PO 1 tab DAILY [facility] Administration Lamivudine 300 mg 09/10/19 10:00 09/14/19 11:15 Epivir - PO 300 mg DAILY [facility] Administration Levalbuterol HCl 0.31 mg 09/13/19 20:00 09/14/19 07:35 Xopenex IH 0.31 mg RTID [facility] Administration Methylprednisolone Sodium Succinate 40 mg 09/13/19 18:00 09/14/19 11:14 Solu-Medrol - IVPUSH 40 mg Q8H-IV [facility] Administration Mirtazapine 15 mg 09/09/19 22:00 09/13/19 22:06 Remeron - PO 15 mg HS [facility] Administration Ritonavir 100 mg 09/10/19 10:00 09/14/19 11:16 Norvir - PO 100 mg DAILY [facility] Administration Valacyclovir HCl 1,000 mg 09/10/19 22:00 09/14/19 11:16 Valtrex - PO 1,000 mg BID [facility] Administration Zolpidem Tartrate 5 mg 09/09/19 17:02 09/12/19 21:56 Ambien - PO 5 mg HS PRN Administration INSOMNIA ASSESSMENT AND PLAN: This is a 64 year old woman with a history of HTN, hyperlipidemia, COPD, HIV, HSV, who presented to the ED with weakness and diarrhea. 1. Infectious gastroenteritis - Resolved - Likely viral - Stool culture negative 2. Influenza A - Completed 5 days of Tamiflu 3. HIV - Continue Epivir, Prezista, Ziagen, Norvir 4. Acute exacerbation of COPD - Continue SoluMedrol, Symbicort, Xopenex, Atrovent 5. HSV - Continue Valtrex 6. Acute kidney injury - Resolved 7. Hypokalemia - Resolved 8. HTN 9. Hyperlipidemia
--- NOTE | 2019-09-14 12:05 | PN ---
Progress Note (short form) - Note Progress Note: Hospitalist Medicine Feels as if her breathing has improved. No more diarrhea. Vitals 09/14/19 10:00 Temperature 98.0 F Pulse Rate 114 H Respiratory 20 Rate Blood Pressure 153/96 Physical Exam general: pleasant. resting in bed, in NAD. heent: NCAT, PERRLA, moist MM neck: supple cardio: S1, S2 RRR. no r/m/g pulm: +few wheezes. however improved. no accessory m usage abdomen: soft, nontender, nondistended LE: 2+ pulses, no edema neuro: J2Ee Java Developer 2-12 grossly intact Laboratory Tests 09/14/19 09/14/19 07:45 07:45 WBC 4.5 Hgb 10.7 Hct 32.8 Plt Count 282 D Sodium 142 Potassium 4.3 Chloride 112 H Carbon Dioxide 20 L Anion Gap 11 BUN 11.9 Creatinine 1.0 Random Glucose 139 H Calcium 8.8 Phosphorus 2.9 Magnesium 2.2 Microbiology 09/10/19 05:43 Stool Gram Stain - Final 09/10/19 05:43 Stool Cryptosporidium Antigen - Final 09/10/19 05:43 Stool Giardia Antigen (JUSTINA) - Final 09/10/19 05:43 Stool Clostridioides difficile Antigen - Final 09/10/19 05:43 Stool Clostridioides difficile Toxin Assay - Final 09/09/19 15:28 Stool Salmonella/Shigella Culture - Final 09/09/19 15:28 Stool Escherichia coli 0157 Culture - Final NO GROWTH OF SALMONELLA OR SHIGELLA SPECIES OBTAINED NO GROWTH OF CAMPYLOBACTER SPECIES OBTAINED NO GROWTH OF YERSINIA SPECIES OBTAINED NO GROWTH OF VIBRIO SPECIES OBTAINED NO GROWTH OF E COLI 0157 OBTAINED 09/09/19 14:17 Blood - Peripheral Venous Blood Culture - Preliminary NO GROWTH OBTAINED AFTER 96 HOURS, INCUBATION TO CONTINUE FOR 1 DAYS. 09/09/19 14:17 Blood - Peripheral Venous Blood Culture - Preliminary NO GROWTH OBTAINED AFTER 96 HOURS, INCUBATION TO CONTINUE FOR 1 DAYS. Imaging 09/09/19: CXR: without evidence acute abnormality, does not appear to have any effusion or infiltrate. f/u official report 09/09/19: EKG: +sinus tach, 117bpm rate. qtc 504ms 09/13/19: CXR: slight crowding of markings at R base but no sign of fluid overload ASSESSMENT/PLAN: 64 y/o F with PMH HIV (on HAART, CD4 390 06/2019), COPD (not on home 02), HTN, HLD, HSV, who presents to the ED c/o weakness and diarrhea that has been occurring over the last three days. #COPD exacerbation -started on medrol 40mg IVPB q8h, xopenex, atrovent -may be able to taper to prednisone PO if sx improved later today -Pulm: Dr. Brandon #FluA+ -completed 5 day course tamiflu 30mg BID -c/w IVF, supportive care -iso precautions -caution w/antiemetics as prolonged qtc can give tigan if needed #infectious vs. inflammatory diarrhea - resolved -possible also 2/2 flu, as pt fluA+ -stool cx(-); d/w microbio lab. -c. diff (-) -off abx -ID: Dr. Ivey; will f/u with as outpatient #hx HIV (on HAART, CD4 390 06/2019) -c/w darunavir, ritonavir, abacavir/lamivudine -ID: Dr. Ivey #LE edema -hold lasix for now, as pt dry -can restart if vol status improves #HSV -still w/ genital lesions -c/w valtrex 1g BID. was to c/w 500mg BID once resolved #FELIZ - resolved #F/E/N IV NS 75 cc/hr continue to follow lytes na controlled/ low cholesterol diet #PPX DVT: SCD's #Dispo monitoring on med-surg may be able to d/c on pred taper if improved later in day
[2019-09-14] MEDS ORDERED: LEVALBUTEROL HCL 0.63 MG/3 ML VIAL.NEB. IH ONE ×2 (15:03→20:14)
[2019-09-14] MEDS: SODIUM CHLORIDE 1,000 ML IV SCH (18:35)
[2019-09-14] MEDS: ZOLPIDEM TARTRATE 5 MG TABLET PO PRN (22:16)
[2019-09-14] MEDS: GABAPENTIN 300 MG CAPSULE PO SCH (22:16)
[2019-09-14] MEDS: MIRTAZAPINE 15 MG TABLET (FP) PO SCH (22:16)
[2019-09-14] MEDS: ATORVASTATIN CA 10 MG TABLET (FP) PO SCH (22:16)
[2019-09-14] MEDS: ACETAMINOPHEN 325 MG TABLET (FP) PO PRN (22:17)
[2019-09-15] MEDS: methylPREDNISolone NA SUCC 40 MG/1 ML VIAL IVPUSH SCH ×3 (01:51→18:00)
[2019-09-15] MEDS: IPRATROPIUM BR 0.02% 0.5 MG/2.5 ML VIAL.NEB. NEB SCH ×3 (08:13→19:55)
[2019-09-15] MEDS: LEVALBUTEROL HCL 0.31 MG/3 ML VIAL.NEB IH SCH ×3 (08:14→19:55)
--- NOTE | 2019-09-15 08:33 | PN ---
Progress Note (short form) - Note Progress Note: Reports feeling better but appears more dyspneic today. Audible wheeze although she just received a BD TX. No acute events overnight. Intake & Output 09/12/19 09/13/19 09/14/19 09/15/19 23:59 23:59 23:59 23:59 Intake Total 1100 300 400 0 Balance 1100 300 400 0 Last Vital Signs Temp Pulse Resp BP Pulse Ox 97.7 F 92 H 20 134/84 96 09/15/19 06:21 09/15/19 06:21 09/15/19 06:21 09/15/19 06:21 09/14/19 09:00 Active Medications Abacavir Sulfate (Ziagen -) 600 mg PO DAILY [facility] Last Admin: 09/14/19 11:17 Dose: 600 mg Atorvastatin Calcium (Lipitor -) 10 mg PO [facility] Last Admin: 09/14/19 22:16 Dose: 10 mg Budesonide/Formoterol Fumarate (Symbicort 80/4.5mcg -) 2 puff IH BID [facility] Last Admin: 09/14/19 22:14 Dose: 2 puff Cholestyramine Resin (Questran Packet -) 4 gm PO BID [facility] Last Admin: 09/14/19 22:17 Dose: Not Given Darunavir (Prezista -) 800 mg PO DAILY [facility] Last Admin: 09/14/19 11:14 Dose: 800 mg Enoxaparin Sodium (Lovenox -) 40 mg SQ DAILY [facility] Last Admin: 09/14/19 11:15 Dose: Not Given Gabapentin (Neurontin -) 300 mg PO [facility] Last Admin: 09/14/19 22:16 Dose: 300 mg Sodium Chloride (Normal Saline -) 1,000 mls @ 75 mls/hr IV ASDIR [facility] Last Admin: 09/14/19 18:35 Dose: Not Given Ipratropium [place] (Atrovent 0.02% Nebulizer -) 1 amp NEB RTID [facility] Last Admin: 09/15/19 08:13 Dose: 1 amp Ipratropium [place] (Atrovent 0.02% Nebulizer -) 1 amp NEB Q4H PRN PRN Reason: WHEEZING Last Admin: 09/13/19 17:55 Dose: 1 amp Lactobacillus Acidophilus (Bacid -) 1 tab PO DAILY [facility] Last Admin: 09/14/19 11:14 Dose: 1 tab Lamivudine (Epivir -) 300 mg PO DAILY [facility] Last Admin: 09/14/19 11:15 Dose: 300 mg Levalbuterol HCl (Xopenex) 0.31 mg IH RTID [facility] Last Admin: 09/15/19 08:14 Dose: 0.31 mg Methylprednisolone Sodium Succinate (Solu-Medrol -) 40 mg IVPUSH Q8H-IV [facility] Last Admin: 09/15/19 01:51 Dose: 40 mg Mirtazapine (Remeron -) 15 mg PO HS [facility] Last Admin: 09/14/19 22:16 Dose: 15 mg Ritonavir (Norvir -) 100 mg PO DAILY [facility] Last Admin: 09/14/19 11:16 Dose: 100 mg Valacyclovir HCl (Valtrex -) 1,000 mg PO BID [facility] Last Admin: 09/14/19 22:16 Dose: 1,000 mg Constitutional: Yes: NAD Eyes: Yes: Conjunctiva Clear, EOM Intact HENT: Yes: Atraumatic, Normocephalic Neck: Yes: Trachea Midline Cardiovascular: Yes: Regular Rate and Rhythm Respiratory: Yes: Cough, Diminished, Rhonchi, Bilateral expiratory wheezes. No : Accessory Muscle Use, Rales, Stridor ...Inspection: Yes: WNL ...Clubbing: No Gastrointestinal: Yes: Normal Bowel Sounds, Soft Renal/: Yes: WNL Musculoskeletal: Yes: WNL Extremities: Yes: WNL Edema: No Peripheral Pulses WNL: Yes Integumentary: Yes: WNL Neurological: Yes: WNL, Alert, Oriented ...Motor Strength: WNL Psychiatric: Yes: WNL, Alert, Oriented Labs: Laboratory Results - last 24 hr 09/11/19 09/14/19 08:32 07:45 Sodium 142 Potassium 4.3 Chloride 112 H Carbon Dioxide 20 L Anion Gap 11 BUN 11.9 Creatinine 1.0 Est GFR (CKD-EPI)AfAm 69.44 Est GFR (CKD-EPI)NonAf 59.91 Random Glucose 139 H Calcium 8.8 Phosphorus 2.9 Magnesium 2.2 HIV-1 RNA (PCR) 96630 HIV-1 RNA (PCR) log10 4.178 Problem List - Problems (1) Flu Code(s): J11.1 - FLU DUE TO UNIDENTIFIED INFLUENZA VIRUS W OTH RESP MANIFEST (2) Acute gastroenteritis Code(s): K52.9 - NONINFECTIVE GASTROENTERITIS AND COLITIS, UNSPECIFIED (3) COPD exacerbation Code(s): J44.1 - CHRONIC OBSTRUCTIVE PULMONARY DISEASE W (ACUTE) EXACERBATION (4) Cough Code(s): R05 - COUGH (5) Hypertension Code(s): I10 - ESSENTIAL (PRIMARY) HYPERTENSION (6) Neuropathy Code(s): G62.9 - POLYNEUROPATHY, UNSPECIFIED (7) HIV (human immunodeficiency virus infection) Code(s): Z21 - ASYMPTOMATIC HUMAN IMMUNODEFICIENCY VIRUS INFECTION STATUS Qualifiers: HIV symptom status: symptomatic Qualified Code(s): B20 - Human immunodeficiency virus [HIV] disease (8) Nicotine dependence Code(s): F17.200 - NICOTINE DEPENDENCE, UNSPECIFIED, UNCOMPLICATED Assessment/Plan Would leave Medrol at current dose : Likely needs another 24 hours of IV therapy Xopenex with Atrovent Atrovent PRN O2 as needed Smoking cessation discussed PFTs once stable as an outpatient Yearly LDCT Chest (Had a CTA 07/26: no nodules/masses) VTE prophylaxis Tamiflu Dr Brandon Problem List - Problems (1) Flu Code(s): J11.1 - FLU DUE TO UNIDENTIFIED INFLUENZA VIRUS W OTH RESP MANIFEST (2) Acute gastroenteritis Code(s): K52.9 - NONINFECTIVE GASTROENTERITIS AND COLITIS, UNSPECIFIED (3) COPD exacerbation Code(s): J44.1 - CHRONIC OBSTRUCTIVE PULMONARY DISEASE W (ACUTE) EXACERBATION (4) Cough Code(s): R05 - COUGH (5) Hypertension Code(s): I10 - ESSENTIAL (PRIMARY) HYPERTENSION (6) Neuropathy Code(s): G62.9 - POLYNEUROPATHY, UNSPECIFIED (7) HIV (human immunodeficiency virus infection) Code(s): Z21 - ASYMPTOMATIC HUMAN IMMUNODEFICIENCY VIRUS INFECTION STATUS Qualifiers: HIV symptom status: symptomatic Qualified Code(s): B20 - Human immunodeficiency virus [HIV] disease (8) Nicotine dependence Code(s): F17.200 - NICOTINE DEPENDENCE, UNSPECIFIED, UNCOMPLICATED
[2019-09-15 08:52] LABS: BASO % 0.2 % (0-2.0); HEMATOCRIT 32.5 % (32.4-45.2); HEMOGLOBIN 10.5 GM/dL (10.7-15.3); LYMPH % 18.7 % (8-40); MCH 29.5 pg (25.7-33.7); MCHC 32.2 g/dl (32.0-36.0); MEAN CELL VOLUME 91.6 fl (80-96); MEAN PLT VOLUME 8.2 fl (7.5-11.1); MONO % 8.6 % (3.8-10.2); NEUT % 72.5 % (42.8-82.8); PLATELET COUNT 393 K/MM3 (134-434); RBC 3.55 M/mm3 (3.60-5.2); RDW 15.8 % (11.6-15.6); WHITE BLOOD COUNT 8.3 K/mm3 (4.0-10.0)
[2019-09-15 09:18] LABS: BLOOD UREA NITROGEN 21.2 mg/dL (7-18); CALCIUM 9.1 mg/dL (8.5-10.1); CREATININE 1.1 mg/dL (0.55-1.3); MAGNESIUM 2.4 mg/dL (1.8-2.4)
[2019-09-15] MEDS ORDERED: PT OWN MED DRAWER 7, Y5N ONE (10:00)
[2019-09-15] MEDS: LACTOBACILLUS ACIDOPHILUS 1 TABLET PO SCH (10:03)
[2019-09-15] MEDS: ENOXAPARIN NA (PORCINE) 40 MG/0.4 ML DISP.SYRIN SQ SCH (10:04)
[2019-09-15] MEDS: valACYclovir HCL 500 MG TABLET (FP) PO SCH ×2 (10:04→21:10)
[2019-09-15] MEDS: CHOLESTYRAMINE/SUCROSE 4 GM PACKET PO SCH ×2 (10:05→21:10)
[2019-09-15] MEDS: RITONAVIR 100 MG TABLET PO SCH (10:05)
[2019-09-15] MEDS: DARUNAVIR ETHANOLATE 800 MG TAB PO SCH (10:05)
[2019-09-15] MEDS: lamiVUDine 150 MG TABLET PO SCH (10:05)
[2019-09-15] MEDS: ABACAVIR SULFATE 300 MG TABLET PO SCH (10:06)
[2019-09-15] MEDS: BUDESONIDE/FORMETEROL FUMARATE 80/4.5 mcg INHALER IH SCH ×2 (10:07→21:10)
--- NOTE | 2019-09-15 15:57 | PN ---
Progress Note (short form) - Note Progress Note: Hospitalist Medicine Still w/ wheezing and HERMAN. Reading for book club Vitals 09/15/19 06:21 Temperature 97.7 F Pulse Rate 92 H Respiratory 20 Rate Blood Pressure 134/84 Physical Exam general: pleasant. resting in bed, in NAD. heent: NCAT, PERRLA, moist MM neck: supple cardio: S1, S2 RRR. no r/m/g pulm: +wheezes. however improved. +HERMAN abdomen: soft, nontender, nondistended LE: 2+ pulses, no edema neuro: Proposal Consultant 2-12 grossly intact Laboratory Tests 09/15/19 09/15/19 08:28 08:28 WBC 8.3 Hgb 10.5 L Hct 32.5 Plt Count 393 D Sodium 143 Potassium 4.0 Chloride 113 H Carbon Dioxide 23 Anion Gap 8 BUN 21.2 H Creatinine 1.1 Random Glucose 146 H Microbiology 09/10/19 05:43 Stool Gram Stain - Final 09/10/19 05:43 Stool Cryptosporidium Antigen - Final 09/10/19 05:43 Stool Giardia Antigen (JUSTINA) - Final 09/10/19 05:43 Stool Clostridioides difficile Antigen - Final 09/10/19 05:43 Stool Clostridioides difficile Toxin Assay - Final 09/09/19 15:28 Stool Salmonella/Shigella Culture - Final 09/09/19 15:28 Stool Escherichia coli 0157 Culture - Final NO GROWTH OF SALMONELLA OR SHIGELLA SPECIES OBTAINED NO GROWTH OF CAMPYLOBACTER SPECIES OBTAINED NO GROWTH OF YERSINIA SPECIES OBTAINED NO GROWTH OF VIBRIO SPECIES OBTAINED NO GROWTH OF E COLI 0157 OBTAINED 09/09/19 14:17 Blood - Peripheral Venous Blood Culture - Preliminary NO GROWTH OBTAINED AFTER 96 HOURS, INCUBATION TO CONTINUE FOR 1 DAYS. 09/09/19 14:17 Blood - Peripheral Venous Blood Culture - Preliminary NO GROWTH OBTAINED AFTER 96 HOURS, INCUBATION TO CONTINUE FOR 1 DAYS. Imaging 09/09/19: CXR: without evidence acute abnormality, does not appear to have any effusion or infiltrate. f/u official report 09/09/19: EKG: +sinus tach, 117bpm rate. qtc 504ms 09/13/19: CXR: slight crowding of markings at R base but no sign of fluid overload ASSESSMENT/PLAN: 64 y/o F with PMH HIV (on HAART, CD4 390 06/2019), COPD (not on home 02), HTN, HLD, HSV, who presents to the ED c/o weakness and diarrhea that has been occurring over the last three days. #COPD exacerbation -on medrol 40mg IVPB q8h, xopenex, atrovent -may be able to taper to prednisone PO tomorrow -Pulm: Dr. Brandon #FluA+ -completed 5 day course tamiflu 30mg BID -iso precautions -caution w/antiemetics as prolonged qtc can give tigan if needed #infectious vs. inflammatory diarrhea - resolved -possible also 2/2 flu, as pt fluA+ -stool cx(-); d/w microbio lab. -c. diff (-) -off abx -ID: Dr. Ivey; will f/u with as outpatient #hx HIV (on HAART, CD4 390 06/2019) -c/w darunavir, ritonavir, abacavir/lamivudine -ID: Dr. Ivey #LE edema -hold lasix for now, as pt dry -can restart if vol status improves #HSV -still w/ genital lesions -c/w valtrex 1g BID. was to c/w 500mg BID once resolved #FELIZ - resolved #F/E/N off IVF continue to follow lytes na controlled/ low cholesterol diet #PPX DVT: SCD's #Dispo monitoring on med-surg may be able to d/c on pred taper tomorrow if improved
[2019-09-15] MEDS: SODIUM CHLORIDE 1,000 ML IV SCH (17:53)
--- NOTE | 2019-09-15 19:03 | PN ---
Teaching Attending Note Name of Resident: Gina Marion ATTENDING PHYSICIAN STATEMENT I saw and evaluated the patient. I reviewed the resident's note and discussed the case with the resident. I agree with the resident's findings and plan as documented. SUBJECTIVE: Seen and examined at bedside. feels more sob today, no cp, palps OBJECTIVE: Vital Signs - 24 hr 09/14/19 09/15/19 09/15/19 22:00 06:21 09:00 Temperature 97.6 F 97.7 F Pulse Rate 84 92 H Respiratory 20 20 20 Rate Blood Pressure 146/92 134/84 O2 Sat by Pulse 95 Oximetry (%) 09/15/19 09/15/19 14:00 16:20 Temperature 97.7 F 97.9 F Pulse Rate 107 H 85 Respiratory 20 20 Rate Blood Pressure 144/85 154/93 O2 Sat by Pulse Oximetry (%) PE: GEN: NAD CVS: s1s2, RRR LUNGS: wheezing bilaterally, unlabored ABDOMEN: soft, ntnd, nabs EXT: no edema Current Medications Generic Name Dose Route Start Last Admin Trade Name Freq PRN Reason Stop Dose Admin Abacavir Sulfate 600 mg 09/10/19 10:00 09/15/19 10:06 Ziagen - PO 600 mg DAILY SHERI Administration Atorvastatin Calcium 10 mg 09/09/19 22:00 09/14/19 22:16 Lipitor - PO 10 mg HS SHERI Administration Budesonide/Formoterol Fumarate 2 puff 09/09/19 22:00 09/15/19 10:07 Symbicort 80/4.5mcg - IH 2 puff BID SHERI Administration Cholestyramine Resin 4 gm 09/11/19 20:15 09/15/19 10:05 Questran Packet - PO Not Given BID SHERI Darunavir 800 mg 09/10/19 10:00 09/15/19 10:05 Prezista - PO 800 mg DAILY SHERI Administration Enoxaparin Sodium 40 mg 09/11/19 10:00 09/15/19 10:04 Lovenox - SQ Not Given DAILY SHERI Gabapentin 300 mg 09/09/19 22:00 09/14/19 22:16 Neurontin - PO 300 mg HS SHERI Administration Sodium Chloride 1,000 mls @ 75 mls/hr 09/10/19 16:45 09/15/19 17:53 Normal Saline - IV Not Given ASDIR SHERI Ipratropium [place] 1 amp 09/13/19 20:00 09/15/19 16:27 Atrovent 0.02% Nebulizer - NEB 1 amp RTID SHERI Administration Ipratropium [place] 1 amp 09/13/19 16:50 09/13/19 17:55 Atrovent 0.02% Nebulizer - NEB 1 amp Q4H PRN Administration WHEEZING Lactobacillus Acidophilus 1 tab 09/10/19 10:00 09/15/19 10:03 Bacid - PO 1 tab DAILY SHERI Administration Lamivudine 300 mg 09/10/19 10:00 09/15/19 10:05 Epivir - PO 300 mg DAILY SHERI Administration Levalbuterol HCl 0.31 mg 09/13/19 20:00 09/15/19 16:27 Xopenex IH 0.31 mg RTID SHERI Administration Methylprednisolone Sodium Succinate 40 mg 09/13/19 18:00 09/15/19 18:00 Solu-Medrol - IVPUSH 40 mg Q8H-IV SHERI Administration Mirtazapine 15 mg 09/09/19 22:00 09/14/19 22:16 Remeron - PO 15 mg HS SHERI Administration Ritonavir 100 mg 09/10/19 10:00 09/15/19 10:05 Norvir - PO 100 mg DAILY SHERI Administration Valacyclovir HCl 1,000 mg 09/10/19 22:00 09/15/19 10:04 Valtrex - PO 1,000 mg BID SHERI Administration Laboratory Results - last 24 hr 09/11/19 09/15/19 09/15/19 08:32 08:28 08:28 WBC 8.3 RBC 3.55 L Hgb 10.5 L Hct 32.5 MCV 91.6 MCH 29.5 MCHC 32.2 RDW 15.8 H Plt Count 393 D MPV 8.2 Absolute Neuts (auto) 6.0 Neutrophils % 72.5 Lymphocytes % 18.7 D Monocytes % 8.6 Eosinophils % 0.0 Basophils % 0.2 Nucleated RBC % 0 Sodium 143 Potassium 4.0 Chloride 113 H Carbon Dioxide 23 Anion Gap 8 BUN 21.2 H Creatinine 1.1 Est GFR (CKD-EPI)AfAm 61.88 Est GFR (CKD-EPI)NonAf 53.39 Random Glucose 146 H Calcium 9.1 Phosphorus 3.0 Magnesium 2.4 HIV-1 RNA (PCR) 76940 HIV-1 RNA (PCR) log10 4.178 imaging reports reviewed ASSESSMENT AND PLAN: 64 year old woman with a history of HTN, hyperlipidemia, COPD, HIV, HSV, who presented to the ED with weakness and diarrhea. 1. Infectious gastroenteritis/Influenza A -resolved, completed rx 2. COPD exacerbation -IV steroids, keep on same dose -inhaled nebs -pulm evla appreciated 3. HIV -continue Epivir, Prezista, Ziagen, Norvir 4. HSV, Continue Valtrex 5. HTN 6. Hyperlipidemia
[2019-09-15] MEDS: MIRTAZAPINE 15 MG TABLET (FP) PO SCH (21:10)
[2019-09-15] MEDS: GABAPENTIN 300 MG CAPSULE PO SCH (21:10)
[2019-09-15] MEDS: ATORVASTATIN CA 10 MG TABLET (FP) PO SCH (21:10)
[2019-09-16] MEDS: methylPREDNISolone NA SUCC 40 MG/1 ML VIAL IVPUSH SCH ×3 (02:10→18:17)
[2019-09-16] MEDS ORDERED: PT OWN MED DRAWER 7, Y5N ONE ×3 (08:03→12:28)
[2019-09-16] MEDS: IPRATROPIUM BR 0.02% 0.5 MG/2.5 ML VIAL.NEB. NEB SCH ×3 (08:10→20:32)
[2019-09-16] MEDS: LEVALBUTEROL HCL 0.31 MG/3 ML VIAL.NEB IH SCH ×3 (08:10→20:32)
--- NOTE | 2019-09-16 09:04 | PN ---
Progress Note (short form) - Note Progress Note: PULMONARY WANTS TO SHOWER STILL WHEEZING VSS/AFEBRILE Constitutional: Yes: NAD Eyes: Yes: Conjunctiva Clear, EOM Intact HENT: Yes: Atraumatic, Normocephalic Neck: Yes: Trachea Midline Cardiovascular: Yes: Regular Rate and Rhythm Respiratory: Yes: Cough, Diminished, Rhonchi, Bilateral expiratory wheezes. No : Accessory Muscle Use, Rales, Stridor ...Inspection: Yes: WNL ...Clubbing: No Gastrointestinal: Yes: Normal Bowel Sounds, Soft Renal/: Yes: WNL Musculoskeletal: Yes: WNL Extremities: Yes: WNL Edema: No Peripheral Pulses WNL: Yes Integumentary: Yes: WNL Neurological: Yes: WNL, Alert, Oriented ...Motor Strength: WNL Psychiatric: Yes: WNL, Alert, Oriented Labs: REVIEWED Problem List - Problems (1) Flu Code(s): J11.1 - FLU DUE TO UNIDENTIFIED INFLUENZA VIRUS W OTH RESP MANIFEST (2) Acute gastroenteritis Code(s): K52.9 - NONINFECTIVE GASTROENTERITIS AND COLITIS, UNSPECIFIED (3) COPD exacerbation Code(s): J44.1 - CHRONIC OBSTRUCTIVE PULMONARY DISEASE W (ACUTE) EXACERBATION (4) Cough Code(s): R05 - COUGH (5) Hypertension Code(s): I10 - ESSENTIAL (PRIMARY) HYPERTENSION (6) Neuropathy Code(s): G62.9 - POLYNEUROPATHY, UNSPECIFIED (7) HIV (human immunodeficiency virus infection) Code(s): Z21 - ASYMPTOMATIC HUMAN IMMUNODEFICIENCY VIRUS INFECTION STATUS Qualifiers: HIV symptom status: symptomatic Qualified Code(s): B20 - Human immunodeficiency virus [HIV] disease (8) Nicotine dependence Code(s): F17.200 - NICOTINE DEPENDENCE, UNSPECIFIED, UNCOMPLICATED Assessment/Plan Medrol at current dose Xopenex with Atrovent Atrovent PRN O2 as needed Smoking cessation discussed PFTs once stable as an outpatient Yearly LDCT Chest (Had a CTA 07/26: no nodules/masses) VTE prophylaxis Tamiflu is completed Fred GARCIA MD
[2019-09-16] MEDS: CHOLESTYRAMINE/SUCROSE 4 GM PACKET PO SCH ×2 (10:35→21:14)
[2019-09-16] MEDS: ENOXAPARIN NA (PORCINE) 40 MG/0.4 ML DISP.SYRIN SQ SCH (10:35)
[2019-09-16] MEDS: RITONAVIR 100 MG TABLET PO SCH (10:36)
[2019-09-16] MEDS: lamiVUDine 150 MG TABLET PO SCH (10:36)
[2019-09-16] MEDS: BUDESONIDE/FORMETEROL FUMARATE 80/4.5 mcg INHALER IH SCH ×2 (10:37→21:18)
[2019-09-16] MEDS: ABACAVIR SULFATE 300 MG TABLET PO SCH (10:37)
[2019-09-16] MEDS: LACTOBACILLUS ACIDOPHILUS 1 TABLET PO SCH (10:40)
[2019-09-16] MEDS: valACYclovir HCL 500 MG TABLET (FP) PO SCH ×2 (10:40→21:14)
[2019-09-16] MEDS ORDERED: LIDOCAINE 5% TOPICAL PATCH TP ONE (11:52)
[2019-09-16] MEDS: DARUNAVIR ETHANOLATE 800 MG TAB PO SCH (14:59)
[2019-09-16] MEDS ORDERED: ACETAMINOPHEN 325 MG TABLET (FP) PO ONE (16:21)
--- NOTE | 2019-09-16 17:16 | PN ---
Progress Note (short form) - Note Progress Note: Hospitalist Medicine Still w/ wheezing. [place] in voice, even when she talks. Vitals 09/16/19 15:00 Temperature 98.7 F Pulse Rate 68 Respiratory 18 Rate Blood Pressure 157/98 Physical Exam general: pleasant. resting in bed, in NAD. heent: NCAT, PERRLA, moist MM neck: supple cardio: S1, S2 RRR. no r/m/g pulm: +wheezes. +HERMAN abdomen: soft, nontender, nondistended LE: 2+ pulses, no edema neuro: Hardware Developer 2-12 grossly intact Laboratory Tests 09/15/19 09/15/19 08:28 08:28 WBC 8.3 Hgb 10.5 L Hct 32.5 Plt Count 393 D Sodium 143 Potassium 4.0 Chloride 113 H Carbon Dioxide 23 Anion Gap 8 BUN 21.2 H Creatinine 1.1 Random Glucose 146 H Microbiology 09/10/19 05:43 Stool Gram Stain - Final 09/10/19 05:43 Stool Cryptosporidium Antigen - Final 09/10/19 05:43 Stool Giardia Antigen (JUSTINA) - Final 09/10/19 05:43 Stool Clostridioides difficile Antigen - Final 09/10/19 05:43 Stool Clostridioides difficile Toxin Assay - Final 09/09/19 15:28 Stool Salmonella/Shigella Culture - Final 09/09/19 15:28 Stool Escherichia coli 0157 Culture - Final NO GROWTH OF SALMONELLA OR SHIGELLA SPECIES OBTAINED NO GROWTH OF CAMPYLOBACTER SPECIES OBTAINED NO GROWTH OF YERSINIA SPECIES OBTAINED NO GROWTH OF VIBRIO SPECIES OBTAINED NO GROWTH OF E COLI 0157 OBTAINED 09/09/19 14:17 Blood - Peripheral Venous Blood Culture - Preliminary NO GROWTH OBTAINED AFTER 96 HOURS, INCUBATION TO CONTINUE FOR 1 DAYS. 09/09/19 14:17 Blood - Peripheral Venous Blood Culture - Preliminary NO GROWTH OBTAINED AFTER 96 HOURS, INCUBATION TO CONTINUE FOR 1 DAYS. Imaging 09/09/19: CXR: without evidence acute abnormality, does not appear to have any effusion or infiltrate. f/u official report 09/09/19: EKG: +sinus tach, 117bpm rate. qtc 504ms 09/13/19: CXR: slight crowding of markings at R base but no sign of fluid overload ASSESSMENT/PLAN: 64 y/o F with PMH HIV (on HAART, CD4 390 06/2019), COPD (not on home 02), HTN, HLD, HSV, who presents to the ED c/o weakness and diarrhea that has been occurring over the last three days. #COPD exacerbation -on medrol 40mg IVPB q8h, xopenex, atrovent -may be able to taper to prednisone PO tomorrow, if less wheezing -Pulm: Dr. Zeng #FluA+ -completed 5 day course tamiflu 30mg BID -iso precautions -caution w/antiemetics as prolonged qtc can give tigan if needed #infectious vs. inflammatory diarrhea - resolved -possible also 2/2 flu, as pt fluA+ -stool cx(-); d/w microbio lab. -c. diff (-) -off abx -ID: Dr. Ivey; will f/u with as outpatient #hx HIV (on HAART, CD4 390 06/2019) -c/w darunavir, ritonavir, abacavir/lamivudine -ID: Dr. Ivey #LE edema -hold lasix for now, as pt dry -can restart if vol status improves #HSV -still w/ genital lesions -c/w valtrex 1g BID. was to c/w 500mg BID once resolved #FELIZ - resolved #F/E/N off IVF continue to follow lytes na controlled/ low cholesterol diet #PPX DVT: SCD's #Dispo monitoring on med-surg may be able to d/c on pred taper tomorrow if improved will also need replacement for xopenex on d/c, as not covered by insurance per pt/long auth process <Gina Marion - Last Filed: 09/16/19 17:16> - Note Progress Note: Seen and examined. Please see resident note for further historical information. I personally verified all the roberts historical formation and exam findings. Personally in pretted imaging and diagnostics and reviewed appropriate results. I reviewed all labs and vital signs are per the resident note and EMR as documented. I agree with the above assessment and plan unless supplemented by myself and the following. <Joan Cooper - Last Filed: 09/16/19 17:48>
[2019-09-16] MEDS: SODIUM CHLORIDE 1,000 ML IV SCH (18:17)
[2019-09-16] MEDS: MIRTAZAPINE 15 MG TABLET (FP) PO SCH (21:14)
[2019-09-16] MEDS: GABAPENTIN 300 MG CAPSULE PO SCH (21:15)
[2019-09-16] MEDS: ATORVASTATIN CA 10 MG TABLET (FP) PO SCH (21:15)
[2019-09-16] MEDS ORDERED: LIDOCAINE PATCH REMOVAL MC ONE (22:00)
[2019-09-17] MEDS: methylPREDNISolone NA SUCC 40 MG/1 ML VIAL IVPUSH SCH ×3 (01:25→18:18)
[2019-09-17] MEDS: IPRATROPIUM BR 0.02% 0.5 MG/2.5 ML VIAL.NEB. NEB SCH ×3 (07:43→20:50)
[2019-09-17] MEDS: LEVALBUTEROL HCL 0.31 MG/3 ML VIAL.NEB IH SCH ×3 (07:43→20:50)
[2019-09-17] MEDS ORDERED: PT OWN MED DRAWER 7, Y5N ONE (09:53)
[2019-09-17] MEDS: valACYclovir HCL 500 MG TABLET (FP) PO SCH ×2 (09:54→21:13)
[2019-09-17] MEDS: LACTOBACILLUS ACIDOPHILUS 1 TABLET PO SCH (09:54)
[2019-09-17] MEDS: ENOXAPARIN NA (PORCINE) 40 MG/0.4 ML DISP.SYRIN SQ SCH (09:55)
[2019-09-17] MEDS: lamiVUDine 150 MG TABLET PO SCH (09:56)
[2019-09-17] MEDS: RITONAVIR 100 MG TABLET PO SCH (09:56)
[2019-09-17] MEDS: DARUNAVIR ETHANOLATE 800 MG TAB PO SCH (09:57)
[2019-09-17] MEDS: BUDESONIDE/FORMETEROL FUMARATE 80/4.5 mcg INHALER IH SCH ×2 (09:57→21:38)
[2019-09-17] MEDS: CHOLESTYRAMINE/SUCROSE 4 GM PACKET PO SCH ×2 (09:57→21:27)
[2019-09-17] MEDS: ABACAVIR SULFATE 300 MG TABLET PO SCH (09:59)
[2019-09-17] MEDS: ACETAMINOPHEN 325 MG TABLET (FP) PO PRN (12:06)
[2019-09-17] MEDS: LIDOCAINE 5% TOPICAL PATCH TP SCH (12:07)
--- NOTE | 2019-09-17 14:34 | PN ---
Progress Note (short form) - Note Progress Note: PULMONARY APPEARS STABLE STILL WHEEZING VSS/AFEBRILE Constitutional: Yes: NAD Eyes: Yes: Conjunctiva Clear, EOM Intact HENT: Yes: Atraumatic, Normocephalic Neck: Yes: Trachea Midline Cardiovascular: Yes: Regular Rate and Rhythm Respiratory: Yes: Cough, Diminished, Rhonchi, Bilateral expiratory wheezes. No : Accessory Muscle Use, Rales, Stridor ...Inspection: Yes: WNL ...Clubbing: No Gastrointestinal: Yes: Normal Bowel Sounds, Soft Renal/: Yes: WNL Musculoskeletal: Yes: WNL Extremities: Yes: WNL Edema: No Peripheral Pulses WNL: Yes Integumentary: Yes: WNL Neurological: Yes: WNL, Alert, Oriented ...Motor Strength: WNL Psychiatric: Yes: WNL, Alert, Oriented Labs: REVIEWED Problem List - Problems (1) Flu Code(s): J11.1 - FLU DUE TO UNIDENTIFIED INFLUENZA VIRUS W OTH RESP MANIFEST (2) Acute gastroenteritis Code(s): K52.9 - NONINFECTIVE GASTROENTERITIS AND COLITIS, UNSPECIFIED (3) COPD exacerbation Code(s): J44.1 - CHRONIC OBSTRUCTIVE PULMONARY DISEASE W (ACUTE) EXACERBATION (4) Cough Code(s): R05 - COUGH (5) Hypertension Code(s): I10 - ESSENTIAL (PRIMARY) HYPERTENSION (6) Neuropathy Code(s): G62.9 - POLYNEUROPATHY, UNSPECIFIED (7) HIV (human immunodeficiency virus infection) Code(s): Z21 - ASYMPTOMATIC HUMAN IMMUNODEFICIENCY VIRUS INFECTION STATUS Qualifiers: HIV symptom status: symptomatic Qualified Code(s): B20 - Human immunodeficiency virus [HIV] disease (8) Nicotine dependence Code(s): F17.200 - NICOTINE DEPENDENCE, UNSPECIFIED, UNCOMPLICATED Assessment/Plan Medrol at current dose Xopenex with Atrovent Atrovent PRN O2 as needed Smoking cessation discussed PFTs once stable as an outpatient Yearly LDCT Chest (Had a CTA 07/26: no nodules/masses) VTE prophylaxis Tamiflu is completed Fred GARCIA MD
[2019-09-17] MEDS ORDERED: KETOROLAC TROMETHAMINE 30 MG/1 ML VIAL IVPUSH ONE (15:27)
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
[2019-09-17] MEDS: SODIUM CHLORIDE 1,000 ML IV SCH (18:17)
[2019-09-17] MEDS ORDERED: METHOCARBAMOL 500 MG TABLET PO ONE (20:29)
[2019-09-17] MEDS: MIRTAZAPINE 15 MG TABLET (FP) PO SCH (21:13)
[2019-09-17] MEDS: ATORVASTATIN CA 10 MG TABLET (FP) PO SCH (21:13)
[2019-09-17] MEDS: GABAPENTIN 300 MG CAPSULE PO SCH (21:13)
[2019-09-17] MEDS: LIDOCAINE PATCH REMOVAL MC SCH (21:13)
[2019-09-17] MEDS ORDERED: LISINOPRIL 5 MG TABLET PO ONE (22:29)
[2019-09-18] MEDS: methylPREDNISolone NA SUCC 40 MG/1 ML VIAL IVPUSH SCH ×2 (01:31→09:32)
[2019-09-18] MEDS: IPRATROPIUM BR 0.02% 0.5 MG/2.5 ML VIAL.NEB. NEB SCH ×2 (08:00→14:15)
[2019-09-18] MEDS: LEVALBUTEROL HCL 0.31 MG/3 ML VIAL.NEB IH SCH ×2 (08:00→14:15)
[2019-09-18] MEDS: LACTOBACILLUS ACIDOPHILUS 1 TABLET PO SCH (09:32)
[2019-09-18] MEDS: valACYclovir HCL 500 MG TABLET (FP) PO SCH ×2 (09:32→21:24)
[2019-09-18] MEDS: LIDOCAINE 5% TOPICAL PATCH TP SCH (09:32)
[2019-09-18] MEDS: DARUNAVIR ETHANOLATE 800 MG TAB PO SCH (09:33)
[2019-09-18] MEDS: RITONAVIR 100 MG TABLET PO SCH (09:33)
[2019-09-18] MEDS: ENOXAPARIN NA (PORCINE) 40 MG/0.4 ML DISP.SYRIN SQ SCH (09:33)
[2019-09-18] MEDS: lamiVUDine 150 MG TABLET PO SCH (09:33)
[2019-09-18] MEDS: BUDESONIDE/FORMETEROL FUMARATE 80/4.5 mcg INHALER IH SCH ×2 (09:34→21:26)
[2019-09-18] MEDS: ABACAVIR SULFATE 300 MG TABLET PO SCH (09:34)
[2019-09-18] MEDS: CHOLESTYRAMINE/SUCROSE 4 GM PACKET PO SCH (09:34)
[2019-09-18 11:02] LABS: BLOOD UREA NITROGEN 22.9 mg/dL (7-18); CALCIUM 8.1 mg/dL (8.5-10.1); CREATININE 1.3 mg/dL (0.55-1.3); POTASSIUM 3.5 mmol/L (3.5-5.1)
--- NOTE | 2019-09-18 12:35 | PN ---
Progress Note (short form) - Note Progress Note: PULMONARY APPEARS STABLE STILL WHEEZING/CONGESTED VSS/AFEBRILE Constitutional: Yes: NAD Eyes: Yes: Conjunctiva Clear, EOM Intact HENT: Yes: Atraumatic, Normocephalic Neck: Yes: Trachea Midline Cardiovascular: Yes: Regular Rate and Rhythm Respiratory: Yes: Cough, Diminished, Rhonchi, Bilateral expiratory wheezes. No : Accessory Muscle Use, Rales, Stridor ...Inspection: Yes: WNL ...Clubbing: No Gastrointestinal: Yes: Normal Bowel Sounds, Soft Renal/: Yes: WNL Musculoskeletal: Yes: WNL Extremities: Yes: WNL Edema: No Peripheral Pulses WNL: Yes Integumentary: Yes: WNL Neurological: Yes: WNL, Alert, Oriented ...Motor Strength: WNL Psychiatric: Yes: WNL, Alert, Oriented Labs: REVIEWED Problem List - Problems (1) Flu Code(s): J11.1 - FLU DUE TO UNIDENTIFIED INFLUENZA VIRUS W OTH RESP MANIFEST (2) Acute gastroenteritis Code(s): K52.9 - NONINFECTIVE GASTROENTERITIS AND COLITIS, UNSPECIFIED (3) COPD exacerbation Code(s): J44.1 - CHRONIC OBSTRUCTIVE PULMONARY DISEASE W (ACUTE) EXACERBATION (4) Cough Code(s): R05 - COUGH (5) Hypertension Code(s): I10 - ESSENTIAL (PRIMARY) HYPERTENSION (6) Neuropathy Code(s): G62.9 - POLYNEUROPATHY, UNSPECIFIED (7) HIV (human immunodeficiency virus infection) Code(s): Z21 - ASYMPTOMATIC HUMAN IMMUNODEFICIENCY VIRUS INFECTION STATUS Qualifiers: HIV symptom status: symptomatic Qualified Code(s): B20 - Human immunodeficiency virus [HIV] disease (8) Nicotine dependence Code(s): F17.200 - NICOTINE DEPENDENCE, UNSPECIFIED, UNCOMPLICATED Assessment/Plan Medrol change to prednisone Xopenex with Atrovent Atrovent PRN O2 as needed Smoking cessation discussed PFTs once stable as an outpatient Yearly LDCT Chest (Had a CTA 07/26: no nodules/masses) VTE prophylaxis Tamiflu is completed Fred GARCIA MD
[2019-09-18] MEDS: METHOCARBAMOL 500 MG TABLET PO PRN ×2 (13:09→21:24)
--- NOTE | 2019-09-18 16:29 | PN ---
Progress Note, Physician Chief Complaint: sob History of Present Illness: seen and examined at bedside. feeling a little better. received muscle relaxer last night which helped shoulder pain tremendously. - Current Medication List Current Medications: Active Medications Abacavir Sulfate (Ziagen -) 600 mg PO DAILY [facility] Last Admin: 09/18/19 09:34 Dose: 600 mg Acetaminophen (Tylenol -) 650 mg PO Q4H PRN PRN Reason: PAIN LEVEL 1-5 Last Admin: 09/17/19 12:06 Dose: 650 mg Atorvastatin Calcium (Lipitor -) 10 mg PO HS [facility] Last Admin: 09/17/19 21:13 Dose: 10 mg Budesonide/Formoterol Fumarate (Symbicort 80/4.5mcg -) 2 puff IH BID [facility] Last Admin: 09/18/19 09:34 Dose: 2 puff Cholestyramine Resin (Questran Packet -) 4 gm PO BID [facility] Last Admin: 09/18/19 09:34 Dose: Not Given Darunavir (Prezista -) 800 mg PO DAILY [facility] Last Admin: 09/18/19 09:33 Dose: 800 mg Enoxaparin Sodium (Lovenox -) 40 mg SQ DAILY [facility] Last Admin: 09/18/19 09:33 Dose: Not Given Gabapentin (Neurontin -) 300 mg PO HS [facility] Last Admin: 09/17/19 21:13 Dose: 300 mg Sodium Chloride (Normal Saline -) 1,000 mls @ 75 mls/hr IV ASDIR [facility] Last Admin: 09/17/19 18:17 Dose: Not Given Ipratropium [place] (Atrovent 0.02% Nebulizer -) 1 amp NEB RTID [facility] Last Admin: 09/18/19 08:00 Dose: 1 amp Ipratropium [place] (Atrovent 0.02% Nebulizer -) 1 amp NEB Q4H PRN PRN Reason: WHEEZING Last Admin: 09/13/19 17:55 Dose: 1 amp Lactobacillus Acidophilus (Bacid -) 1 tab PO DAILY [facility] Last Admin: 09/18/19 09:32 Dose: 1 tab Lamivudine (Epivir -) 300 mg PO DAILY [facility] Last Admin: 09/18/19 09:33 Dose: 300 mg Levalbuterol HCl (Xopenex) 0.31 mg IH RTID [facility] Last Admin: 09/18/19 08:00 Dose: 0.31 mg Lidocaine (Lidoderm Patch -) 1 patch TP DAILY [facility] Last Admin: 09/18/19 09:32 Dose: 1 patch Methocarbamol (Robaxin -) 500 mg PO BID PRN PRN Reason: MUSCLE SPASMS Last Admin: 09/18/19 13:09 Dose: 500 mg Mirtazapine (Remeron -) 15 mg PO HS [facility] Last Admin: 09/17/19 21:13 Dose: 15 mg Miscellaneous (Lidoderm Patch Removal) 1 each MC DAILY@2200 [facility] Last Admin: 09/17/19 21:13 Dose: 1 each Prednisone (Deltasone -) 20 mg PO DAILY [facility] Ritonavir (Norvir -) 100 mg PO DAILY [facility] Last Admin: 09/18/19 09:33 Dose: 100 mg Valacyclovir HCl (Valtrex -) 1,000 mg PO BID [facility] Last Admin: 09/18/19 09:32 Dose: 1,000 mg - Objective Vital Signs: Vital Signs Temperature 98.1 F 09/18/19 13:52 Pulse Rate 107 H 09/18/19 13:52 Respiratory Rate 09/18/19 13:52 Blood Pressure 146/83 09/18/19 13:52 O2 Sat by Pulse Oximetry (%) 96 09/18/19 09:00 Constitutional: Yes: Well Nourished, No Distress, Calm Cardiovascular: Yes: WNL, Regular Rate and Rhythm Respiratory: Yes: Wheezes (bilaterally) Gastrointestinal: Yes: WNL, Normal Bowel Sounds, Soft Musculoskeletal: Yes: WNL Extremities: Yes: WNL Edema: No Labs: CBC, BMP 09/15/19 08:28 09/18/19 09:54 Problem List - Problems (1) FELIZ (acute kidney injury) Code(s): N17.9 - ACUTE KIDNEY FAILURE, UNSPECIFIED (2) Dehydration Code(s): E86.0 - DEHYDRATION (3) Acute exacerbation of COPD with asthma Code(s): J44.1 - CHRONIC OBSTRUCTIVE PULMONARY DISEASE W (ACUTE) EXACERBATION; J45.901 - UNSPECIFIED ASTHMA WITH (ACUTE) EXACERBATION (4) COPD exacerbation Code(s): J44.1 - CHRONIC OBSTRUCTIVE PULMONARY DISEASE W (ACUTE) EXACERBATION Assessment/Plan ASSESSMENT AND PLAN: 64 year old woman with a history of HTN, hyperlipidemia, COPD, HIV, HSV, who presented to the ED with weakness and diarrhea. 1. Infectious gastroenteritis/Influenza A -resolved, completed rx 2. COPD exacerbation -IV steroids, transitioned to PO today -inhaled nebs -pulm eval appreciated -DC in AM if feeling better 3. HIV -continue Epivir, Prezista, Ziagen, Norvir 4. HSV, Continue Valtrex 5. HTN 6. HLD 7. Right shoulder pain, lido patch, muscle relaxant with good relief
[2019-09-18] MEDS: predniSONE 20 MG TABLET (UD) PO SCH (17:17)
[2019-09-18] MEDS: ATORVASTATIN CA 10 MG TABLET (FP) PO SCH (21:25)
[2019-09-18] MEDS: GABAPENTIN 300 MG CAPSULE PO SCH (21:25)
[2019-09-18] MEDS: MIRTAZAPINE 15 MG TABLET (FP) PO SCH (21:25)
[2019-09-18] MEDS ORDERED: PT OWN MED DRAWER 7, Y5N ONE (21:27)
[2019-09-19] MEDS: CHOLESTYRAMINE/SUCROSE 4 GM PACKET PO SCH ×3 (01:12→22:10)
[2019-09-19] MEDS ORDERED: PT OWN MED DRAWER 7, Y5N ONE ×2 (09:48→10:02)
[2019-09-19] MEDS: predniSONE 20 MG TABLET (UD) PO SCH (09:51)
[2019-09-19] MEDS: LACTOBACILLUS ACIDOPHILUS 1 TABLET PO SCH (09:51)
[2019-09-19] MEDS: DARUNAVIR ETHANOLATE 800 MG TAB PO SCH (09:53)
[2019-09-19] MEDS: RITONAVIR 100 MG TABLET PO SCH (09:53)
[2019-09-19] MEDS: lamiVUDine 150 MG TABLET PO SCH (09:53)
[2019-09-19] MEDS: valACYclovir HCL 500 MG TABLET (FP) PO SCH ×2 (09:54→22:09)
[2019-09-19] MEDS: BUDESONIDE/FORMETEROL FUMARATE 80/4.5 mcg INHALER IH SCH ×2 (09:55→22:13)
[2019-09-19] MEDS: ABACAVIR SULFATE 300 MG TABLET PO SCH (09:55)
[2019-09-19] MEDS: LIDOCAINE 5% TOPICAL PATCH TP SCH (09:56)
[2019-09-19] MEDS: ENOXAPARIN NA (PORCINE) 40 MG/0.4 ML DISP.SYRIN SQ SCH (09:56)
[2019-09-19] MEDS: METHOCARBAMOL 500 MG TABLET PO PRN ×2 (10:04→22:09)
--- NOTE | 2019-09-19 10:26 | PN ---
Progress Note (short form) - Note Progress Note: PULMONARY Breathing better today, was able to ambulate hallways. Vital Signs Period Temp Pulse Resp BP Sys/Inman Pulse Ox Last 24 Hr 97.2 F-98.2 F 74-107 20-20 146-163/83-100 95 Gen: mildly tachypneic at rest Heart: RRR Lung: scattered wheezes Abd: soft, nontender Ext: no edema CBC, BMP 09/15/19 08:28 09/18/19 09:54 Active Medications Abacavir Sulfate (Ziagen -) 600 mg PO DAILY [facility] Last Admin: 09/19/19 09:55 Dose: 600 mg Acetaminophen (Tylenol -) 650 mg PO Q4H PRN PRN Reason: PAIN LEVEL 1-5 Last Admin: 09/17/19 12:06 Dose: 650 mg Atorvastatin Calcium (Lipitor -) 10 mg PO [facility] Last Admin: 09/18/19 21:25 Dose: 10 mg Budesonide/Formoterol Fumarate (Symbicort 80/4.5mcg -) 2 puff IH BID [facility] Last Admin: 09/19/19 09:55 Dose: 2 puff Cholestyramine Resin (Questran Packet -) 4 gm PO BID [facility] Last Admin: 09/19/19 09:54 Dose: Not Given Darunavir (Prezista -) 800 mg PO DAILY [facility] Last Admin: 09/19/19 09:53 Dose: 800 mg Enoxaparin Sodium (Lovenox -) 40 mg SQ DAILY [facility] Last Admin: 09/19/19 09:56 Dose: Not Given Gabapentin (Neurontin -) 300 mg PO HS [facility] Last Admin: 09/18/19 21:25 Dose: 300 mg Sodium Chloride (Normal Saline -) 1,000 mls @ 75 mls/hr IV ASDIR [facility] Last Admin: 09/17/19 18:17 Dose: Not Given Ipratropium [place] (Atrovent 0.02% Nebulizer -) 1 amp NEB Q4H PRN PRN Reason: WHEEZING Last Admin: 09/13/19 17:55 Dose: 1 amp Lactobacillus Acidophilus (Bacid -) 1 tab PO DAILY [facility] Last Admin: 09/19/19 09:51 Dose: 1 tab Lamivudine (Epivir -) 300 mg PO DAILY [facility] Last Admin: 09/19/19 09:53 Dose: 300 mg Lidocaine (Lidoderm Patch -) 1 patch TP DAILY [facility] Last Admin: 09/19/19 09:56 Dose: 1 patch Methocarbamol (Robaxin -) 500 mg PO BID PRN PRN Reason: MUSCLE SPASMS Last Admin: 09/19/19 10:04 Dose: 500 mg Mirtazapine (Remeron -) 15 mg PO HS [facility] Last Admin: 09/18/19 21:25 Dose: 15 mg Miscellaneous (Lidoderm Patch Removal) 1 each MC DAILY@2200 [facility] Last Admin: 09/17/19 21:13 Dose: 1 each Prednisone (Deltasone -) 20 mg PO DAILY [facility] Last Admin: 09/19/19 09:51 Dose: 20 mg Ritonavir (Norvir -) 100 mg PO DAILY [facility] Last Admin: 09/19/19 09:53 Dose: 100 mg Valacyclovir HCl (Valtrex -) 1,000 mg PO BID [facility] Last Admin: 09/19/19 09:54 Dose: 1,000 mg A/P Influenza A Acute COPD Exacerbation HIV HTN Hyperlipidemia Anemia - prednisone taper - inhaled bronchodilators - O2 to keep SpO2 >90% - DVT prophylaxis
[2019-09-19] MEDS ORDERED: predniSONE 20 MG TABLET (UD) PO SCH (11:14)
[2019-09-19] MEDS: NYSTATIN 500,000 UNITS/5 ML SUSPENSION PO SCH ×2 (12:00→18:03)
--- NOTE | 2019-09-19 16:02 | PN ---
Physical Exam: SUBJECTIVE: Patient seen and examined. She is coughing and becomes very SOB with minimal exertion. OBJECTIVE: Vital Signs Period Temp Pulse Resp BP Sys/Inman Pulse Ox Last 24 Hr 97.2 F-98.2 F 74-107 20-20 148-182/94-100 95 GENERAL: The patient is awake, alert, and fully oriented, in no acute distress at rest but developed moderate respiratory distress when she went from lying to sitting.. LUNGS: Breath sounds equal, diffuse rhonchi, no wheezes, no accessory muscle use. HEART: Regular rate and rhythm, S1, S2 without murmur, rub or gallop. ABDOMEN: Soft, nontender, nondistended, normoactive bowel sounds, no guarding, no rebound, no hepatosplenomegaly, no masses. EXTREMITIES: 2+ pulses, warm, well-perfused, no edema. Active Medications Generic Name Dose Route Start Last Admin Trade Name Freq PRN Reason Stop Dose Admin Abacavir Sulfate 600 mg 09/10/19 10:00 09/19/19 09:55 Ziagen - PO 600 mg DAILY [facility]I Administration Acetaminophen 650 mg 09/17/19 11:47 09/17/19 12:06 Tylenol - PO 650 mg Q4H PRN Administration PAIN LEVEL 1-5 Atorvastatin Calcium 10 mg 09/09/19 22:00 09/18/19 21:25 Lipitor - PO 10 mg HS [facility]I Administration Budesonide/Formoterol Fumarate 2 puff 09/09/19 22:00 09/19/19 09:55 Symbicort 80/4.5mcg - IH 2 puff BID [facility]I Administration Cholestyramine Resin 4 gm 09/11/19 20:15 09/19/19 09:54 Questran Packet - PO Not Given BID SHERI Darunavir 800 mg 09/10/19 10:00 09/19/19 09:53 Prezista - PO 800 mg DAILY [facility] Administration Enoxaparin Sodium 40 mg 09/11/19 10:00 09/19/19 09:56 Lovenox - SQ Not Given DAILY [facility] Gabapentin 300 mg 09/09/19 22:00 09/18/19 21:25 Neurontin - PO 300 mg HS [facility]I Administration Sodium Chloride 1,000 mls @ 75 mls/hr 09/10/19 16:45 09/17/19 18:17 Normal Saline - IV Not Given ASDIR SHERI Ipratropium [place] 1 amp 09/13/19 16:50 09/13/19 17:55 Atrovent 0.02% Nebulizer - NEB 1 amp Q4H PRN Administration WHEEZING Lactobacillus Acidophilus 1 tab 09/10/19 10:00 09/19/19 09:51 Bacid - PO 1 tab DAILY [facility] Administration Lamivudine 300 mg 09/10/19 10:00 09/19/19 09:53 Epivir - PO 300 mg DAILY [facility] Administration Lidocaine 1 patch 09/17/19 12:00 09/19/19 09:56 Lidoderm Patch - TP 1 patch DAILY [facility] Administration Methocarbamol 500 mg 09/18/19 12:33 09/19/19 10:04 Robaxin - PO 500 mg BID PRN Administration MUSCLE SPASMS Mirtazapine 15 mg 09/09/19 22:00 09/18/19 21:25 Remeron - PO 15 mg HS [facility]I Administration Miscellaneous 1 each 09/17/19 22:00 09/17/19 21:13 Lidoderm Patch Removal MC 1 each DAILY@2200 [facility]I Administration Nystatin 500,000 units 09/19/19 12:00 09/19/19 12:00 Nystatin Oral Suspension - PO 500,000 units Q6HPO [facility]I Administration Prednisone 40 mg 09/19/19 11:14 Deltasone - PO DAILY [facility] Ritonavir 100 mg 09/10/19 10:00 09/19/19 09:53 Norvir - PO 100 mg DAILY [facility] Administration Valacyclovir HCl 1,000 mg 09/10/19 22:00 09/19/19 09:54 Valtrex - PO 1,000 mg BID [facility]I Administration ASSESSMENT/PLAN: This is a 64 year old woman with a history of HTN, hyperlipidemia, COPD, HIV, HSV, who presented to the ED with weakness and diarrhea. 1. Acute exacerbation of COPD - Still SOB with minimal exertion - Continue Prednisone, Symbicort - Consider increasing Prednisone or changing to SoluMedrol if no improvement 2. Viral gastroenteritis - Resolved 3. Influenza A - Completed Tamiflu 4. HIV - Continue Epivir, Prezista, Ziagen, Norvir 5. HSV - Continue Valtrex 6. Acute kidney injury - Resolved 7. Hypokalemia - Resolved 8. HTN - On no meds 9. Hyperlipidemia - Continue Lipitor Visit type - Emergency Visit Emergency Visit: Yes ED Registration Date: 09/09/19 Care time: The patient presented to the Emergency Department on the above date and was hospitalized for further evaluation of their emergent condition. - New Patient This patient is new to me today: No - Critical Care Critical Care patient: No - Discharge Referral Referred to [facility] Med [facility] No
[2019-09-19] MEDS: IPRATROPIUM BR 0.02% 0.5 MG/2.5 ML VIAL.NEB. NEB PRN (19:49)
[2019-09-19] MEDS: ACETAMINOPHEN 325 MG TABLET (FP) PO PRN (22:07)
[2019-09-19] MEDS: MIRTAZAPINE 15 MG TABLET (FP) PO SCH (22:08)
[2019-09-19] MEDS: GABAPENTIN 300 MG CAPSULE PO SCH (22:08)
[2019-09-19] MEDS: ATORVASTATIN CA 10 MG TABLET (FP) PO SCH (22:09)
[2019-09-19] MEDS: LIDOCAINE PATCH REMOVAL MC SCH (22:10)
[2019-09-20] MEDS: NYSTATIN 500,000 UNITS/5 ML SUSPENSION PO SCH ×4 (01:05→18:21)
[2019-09-20 08:30] LABS: HEMATOCRIT 32.3 % (32.4-45.2); HEMOGLOBIN 10.7 GM/dL (10.7-15.3); MCH 30.4 pg (25.7-33.7); MCHC 33.2 g/dl (32.0-36.0); MEAN CELL VOLUME 91.7 fl (80-96); MEAN PLT VOLUME 7.5 fl (7.5-11.1); PLATELET COUNT 343 K/MM3 (134-434); RBC 3.53 M/mm3 (3.60-5.2); RDW 15.7 % (11.6-15.6)
[2019-09-20 09:05] LABS: BLOOD UREA NITROGEN 21.6 mg/dL (7-18); CALCIUM 8.1 mg/dL (8.5-10.1); POTASSIUM 3.2 mmol/L (3.5-5.1)
[2019-09-20] MEDS ORDERED: POTASSIUM CHLORIDE TABS 20 MEQ TABLET.ER (FP) PO ONE (09:30)
--- NOTE | 2019-09-20 09:40 | PN ---
Physical Exam: SUBJECTIVE: Patient seen and examined. Appears tachypneic at rest. Says she has worsening of SOB. Hypertensive overnight. Last BP 162/101. HR 128. O2 Sat 95% on Room air. OBJECTIVE: Vital Signs Period Temp Pulse Resp BP Sys/Inman Pulse Ox Last 24 Hr 98 F-98.2 F 86-102 18-20 147-175/89-105 95 GENERAL: tachypneic at rest EYES: PERRL, extraocular movements intact, sclera anicteric, conjunctiva clear ENT: moist mucous membranes. NECK: supple. LUNGS: decreased breath sounds, no wheezing appreciated. HEART: tachycardic, Regular Rate, no murmurs appreciated ABDOMEN: Soft, nontender, nondistended, normoactive bowel sounds EXTREMITIES: 2+ pulses NEUROLOGICAL: Cranial nerves II through XII grossly intact. Laboratory Results - last 24 hr 09/20/19 09/20/19 07:47 07:47 WBC 7.0 RBC 3.53 L Hgb 10.7 Hct 32.3 L MCV 91.7 MCH 30.4 MCHC 33.2 RDW 15.7 H Plt Count 343 MPV 7.5 Sodium 140 Potassium 3.2 L Chloride 103 Carbon Dioxide 31 Anion Gap 6 L BUN 21.6 H Creatinine 1.0 Est GFR (CKD-EPI)AfAm 69.44 Est GFR (CKD-EPI)NonAf 59.91 Random Glucose 120 H Calcium 8.1 L Active Medications Generic Name Dose Route Start Last Admin Trade Name Freq PRN Reason Stop Dose Admin Abacavir Sulfate 600 mg 09/10/19 10:00 09/19/19 09:55 Ziagen - PO 600 mg DAILY [facility] Administration Acetaminophen 650 mg 09/17/19 11:47 09/19/19 22:07 Tylenol - PO 650 mg Q4H PRN Administration PAIN LEVEL 1-5 Albuterol/Ipratropium 1 amp 09/20/19 12:00 Duoneb - NEB RQID [facility] Amlodipine Besylate 5 mg 09/20/19 10:00 Norvasc - PO DAILY [facility] Atorvastatin Calcium 10 mg 09/09/19 22:00 09/19/19 22:09 Lipitor - PO 10 mg HS [facility]I Administration Budesonide/Formoterol Fumarate 2 puff 09/09/19 22:00 09/19/19 22:13 Symbicort 80/4.5mcg - IH 2 puff BID [facility]I Administration Cholestyramine Resin 4 gm 09/11/19 20:15 09/19/19 22:10 Questran Packet - PO Not Given BID [facility]I Darunavir 800 mg 09/10/19 10:00 09/19/19 09:53 Prezista - PO 800 mg DAILY [facility] Administration Enoxaparin Sodium 40 mg 09/11/19 10:00 09/19/19 09:56 Lovenox - SQ Not Given DAILY [facility] Gabapentin 300 mg 09/09/19 22:00 09/19/19 22:08 Neurontin - PO 300 mg HS [facility] Administration Ipratropium [place] 1 amp 09/13/19 16:50 09/19/19 19:49 Atrovent 0.02% Nebulizer - NEB 1 amp Q4H PRN Administration WHEEZING Lactobacillus Acidophilus 1 tab 09/10/19 10:00 09/19/19 09:51 Bacid - PO 1 tab DAILY [facility] Administration Lamivudine 300 mg 09/10/19 10:00 09/19/19 09:53 Epivir - PO 300 mg DAILY [facility] Administration Lidocaine 1 patch 09/17/19 12:00 09/19/19 09:56 Lidoderm Patch - TP 1 patch DAILY [facility] Administration Methocarbamol 500 mg 09/18/19 12:33 09/19/19 22:09 Robaxin - PO 500 mg BID PRN Administration MUSCLE SPASMS Methylprednisolone Sodium Succinate 40 mg 09/20/19 10:00 Solu-Medrol - IVPUSH Q8H-IV [facility] Mirtazapine 15 mg 09/09/19 22:00 09/19/19 22:08 Remeron - PO 15 mg HS [facility]I Administration Miscellaneous 1 each 09/17/19 22:00 09/19/19 22:10 Lidoderm Patch Removal MC 1 each DAILY@2200 [facility] Administration Nystatin 500,000 units 09/19/19 12:00 09/20/19 05:17 Nystatin Oral Suspension - PO 500,000 units Q6HPO [facility]I Administration Ritonavir 100 mg 09/10/19 10:00 09/19/19 09:53 Norvir - PO 100 mg DAILY [facility] Administration Valacyclovir HCl 1,000 mg 09/10/19 22:00 09/19/19 22:09 Valtrex - PO 1,000 mg BID SH[facility]I Administration ASSESSMENT/PLAN: 64 year old woman with a history of HTN, hyperlipidemia, COPD, HIV, HSV, who presented to the ED with weakness and diarrhea. #COPD exacerbation -worsening shortness of breath -restart IV medrol 40mg q8h -make nebs standing q4h, and albuterol prn -pulm eval appreciated #Infectious gastroenteritis/Influenza A -resolved, completed rx #HIV -continue Epivir, Prezista, Ziagen, Norvir #HSV -Continue Valtrex #HTN -start norvasc 5mg #HLD -lipitor 10 #DVT ppx -lovenox 40 #Right shoulder pain -lido patch, muscle relaxant with good relief Visit type - Emergency Visit Emergency Visit: Yes ED Registration Date: 09/09/19 Care time: The patient presented to the Emergency Department on the above date and was hospitalized for further evaluation of their emergent condition. - New Patient This patient is new to me today: Yes Date on this admission: 09/20/19 - Critical Care Critical Care patient: No ATTENDING PHYSICIAN STATEMENT I saw and evaluated the patient. I reviewed the resident's note and discussed the case with the resident. I agree with the resident's findings and plan as documented. SUBJECTIVE: OBJECTIVE: ASSESSMENT AND PLAN:
[2019-09-20] MEDS: LACTOBACILLUS ACIDOPHILUS 1 TABLET PO SCH (10:03)
[2019-09-20] MEDS: valACYclovir HCL 500 MG TABLET (FP) PO SCH ×2 (10:03→21:58)
[2019-09-20] MEDS: amLODIPine BESYLATE 5 MG TABLET (FP) PO SCH (10:03)
[2019-09-20] MEDS: DARUNAVIR ETHANOLATE 800 MG TAB PO SCH (10:04)
[2019-09-20] MEDS: lamiVUDine 150 MG TABLET PO SCH (10:04)
[2019-09-20] MEDS: LIDOCAINE 5% TOPICAL PATCH TP SCH (10:04)
[2019-09-20] MEDS: RITONAVIR 100 MG TABLET PO SCH (10:05)
[2019-09-20] MEDS: CHOLESTYRAMINE/SUCROSE 4 GM PACKET PO SCH ×2 (10:05→21:58)
[2019-09-20] MEDS: ENOXAPARIN NA (PORCINE) 40 MG/0.4 ML DISP.SYRIN SQ SCH (10:06)
[2019-09-20] MEDS: ABACAVIR SULFATE 300 MG TABLET PO SCH (10:06)
[2019-09-20] MEDS: BUDESONIDE/FORMETEROL FUMARATE 80/4.5 mcg INHALER IH SCH ×2 (10:06→21:58)
[2019-09-20] MEDS: METHOCARBAMOL 500 MG TABLET PO PRN ×2 (10:20→22:04)
[2019-09-20] MEDS ORDERED: ALBUTEROL SO4 0.083% IH SOL 2.5 MG/3 ML VIAL.NEB. NEB PRN (10:24)
--- NOTE | 2019-09-20 10:24 | PN ---
Progress Note (short form) - Note Progress Note: PULMONARY Was breathing better until this AM. More short of breath with cough and wheezing. Vital Signs Period Temp Pulse Resp BP Sys/Inman Pulse Ox Last 24 Hr 98 F-98.2 F 86-102 18-20 147-175/89-105 95 Gen: mildly tachypneic at rest Heart: RRR Lung: scattered wheezes Abd: soft, nontender Ext: no edema CBC, BMP 09/20/19 07:47 09/20/19 07:47 Active Medications Abacavir Sulfate (Ziagen -) 600 mg PO DAILY [facility] Last Admin: 09/20/19 10:06 Dose: 600 mg Acetaminophen (Tylenol -) 650 mg PO Q4H PRN PRN Reason: PAIN LEVEL 1-5 Last Admin: 09/19/19 22:07 Dose: 650 mg Albuterol/Ipratropium (Duoneb -) 1 amp NEB RQID [facility] 234 B[facility]S [facility] Amlodipine Besylate (Norvasc -) 5 mg PO DAILY [facility] 234 [facility]S [facility] Last Admin: 09/20/19 10:03 Dose: 5 mg Atorvastatin Calcium (Lipitor -) 10 mg PO [facility] Last Admin: 09/19/19 22:09 Dose: 10 mg Budesonide/Formoterol Fumarate (Symbicort 80/4.5mcg -) 2 puff IH BID [facility] 234 [facility]S [facility] Last Admin: 09/20/19 10:06 Dose: 2 puff Cholestyramine Resin (Questran Packet -) 4 gm PO BID [facility] 234 [facility]S [facility] Last Admin: 09/20/19 10:05 Dose: Not Given Darunavir (Prezista -) 800 mg PO DAILY [facility] Last Admin: 09/20/19 10:04 Dose: 800 mg Enoxaparin Sodium (Lovenox -) 40 mg SQ DAILY [facility] Last Admin: 09/20/19 10:06 Dose: Not Given Gabapentin (Neurontin -) 300 mg PO [facility] Last Admin: 09/19/19 22:08 Dose: 300 mg Ipratropium [place] (Atrovent 0.02% Nebulizer -) 1 amp NEB Q4H PRN PRN Reason: WHEEZING Last Admin: 09/19/19 19:49 Dose: 1 amp Lactobacillus Acidophilus (Bacid -) 1 tab PO DAILY [facility] 234 [facility]S [facility] Last Admin: 09/20/19 10:03 Dose: 1 tab Lamivudine (Epivir -) 300 mg PO DAILY [facility] Last Admin: 09/20/19 10:04 Dose: 300 mg Lidocaine (Lidoderm Patch -) 1 patch TP DAILY [facility] Last Admin: 09/20/19 10:04 Dose: 1 patch Methocarbamol (Robaxin -) 500 mg PO BID PRN PRN Reason: MUSCLE SPASMS Last Admin: 09/20/19 10:20 Dose: 500 mg Methylprednisolone Sodium Succinate (Solu-Medrol -) 40 mg IVPUSH Q8H-IV [facility] Mirtazapine (Remeron -) 15 mg PO HS [facility] 234 [facility]S [facility] Last Admin: 09/19/19 22:08 Dose: 15 mg Miscellaneous (Lidoderm Patch Removal) 1 each MC DAILY@2200 [facility] 234 B[facility]S [facility] Last Admin: 09/19/19 22:10 Dose: 1 each Nystatin (Nystatin Oral Suspension -) 500,000 units PO Q6HPO [facility] 234 BEDS [facility] Last Admin: 09/20/19 05:17 Dose: 500,000 units Ritonavir (Norvir -) 100 mg PO DAILY [facility]S [facility] Last Admin: 09/20/19 10:05 Dose: 100 mg Valacyclovir HCl (Valtrex -) 1,000 mg PO BID [facility]S [facility] Last Admin: 09/20/19 10:03 Dose: 1,000 mg A/P Influenza A Acute COPD Exacerbation HIV HTN Hyperlipidemia Anemia - continue medrol for another day - inhaled bronchodilators standing and PRN - O2 to keep SpO2 >90% - DVT prophylaxis
[2019-09-20] MEDS: methylPREDNISolone NA SUCC 40 MG/1 ML VIAL IVPUSH SCH ×2 (11:22→18:21)
[2019-09-20] MEDS: ALBUTEROL SO4 2.5/IPRATROPIUM 0.5 INH SOL 3 ML VIAL.NEB. NEB SCH ×3 (12:12→20:35)
--- NOTE | 2019-09-20 17:31 | PN ---
Teaching Attending Note Name of Resident: Martinez Rivas ATTENDING PHYSICIAN STATEMENT I saw and evaluated the patient. I reviewed the resident's note and discussed the case with the resident. I agree with the resident's findings and plan as documented. SUBJECTIVE: Seen and examined at bedside, doesn't feel great today, feels more winded. OBJECTIVE: Vital Signs - 24 hr 09/19/19 09/19/19 09/19/19 19:54 21:00 23:03 Temperature 98.1 F Pulse Rate 102 H 97 H Respiratory 18 Rate Blood Pressure 175/105 H 149/89 O2 Sat by Pulse 95 Oximetry (%) 09/20/19 09/20/19 09/20/19 07:13 09:00 10:00 Temperature 98 F 98.1 F Pulse Rate 89 91 H Respiratory 20 20 20 Rate Blood Pressure 147/97 162/101 H O2 Sat by Pulse 96 Oximetry (%) PE: Constitutional: Yes: Well Nourished, No Distress, Calm Cardiovascular: Yes: WNL, Regular Rate and Rhythm Respiratory: Yes: Wheezes (bilaterally) Gastrointestinal: Yes: WNL, Normal Bowel Sounds, Soft Musculoskeletal: Yes: WNL Extremities: Yes: WNL Edema: No Current Medications Abacavir Sulfate (Ziagen -) 600 mg PO DAILY [facility] Last Admin: 09/20/19 10:06 Dose: 600 mg Acetaminophen (Tylenol -) 650 mg PO Q4H PRN PRN Reason: PAIN LEVEL 1-5 Last Admin: 09/19/19 22:07 Dose: 650 mg Albuterol Sulfate (Ventolin 0.083% Nebulizer Soln -) 1 amp NEB Q4H PRN PRN Reason: SHORT OF BREATH/WHEEZING Albuterol/Ipratropium (Duoneb -) 1 amp NEB RQID [facility] Last Admin: 09/20/19 16:34 Dose: 1 amp Amlodipine Besylate (Norvasc -) 5 mg PO DAILY [facility] Last Admin: 09/20/19 10:03 Dose: 5 mg Atorvastatin Calcium (Lipitor -) 10 mg PO HS [facility] Last Admin: 09/19/19 22:09 Dose: 10 mg Budesonide/Formoterol Fumarate (Symbicort 80/4.5mcg -) 2 puff IH BID [facility] Last Admin: 09/20/19 10:06 Dose: 2 puff Cholestyramine Resin (Questran Packet -) 4 gm PO BID [facility] Last Admin: 09/20/19 10:05 Dose: Not Given Darunavir (Prezista -) 800 mg PO DAILY [facility] Last Admin: 09/20/19 10:04 Dose: 800 mg Enoxaparin Sodium (Lovenox -) 40 mg SQ DAILY [facility] Last Admin: 09/20/19 10:06 Dose: Not Given Gabapentin (Neurontin -) 300 mg PO HS [facility] Last Admin: 09/19/19 22:08 Dose: 300 mg Ipratropium [place] (Atrovent 0.02% Nebulizer -) 1 amp NEB Q4H PRN PRN Reason: WHEEZING Last Admin: 09/19/19 19:49 Dose: 1 amp Lactobacillus Acidophilus (Bacid -) 1 tab PO DAILY [facility] Last Admin: 09/20/19 10:03 Dose: 1 tab Lamivudine (Epivir -) 300 mg PO DAILY [facility] Last Admin: 09/20/19 10:04 Dose: 300 mg Lidocaine (Lidoderm Patch -) 1 patch TP DAILY [facility] Last Admin: 09/20/19 10:04 Dose: 1 patch Methocarbamol (Robaxin -) 500 mg PO BID PRN PRN Reason: MUSCLE SPASMS Last Admin: 09/20/19 10:20 Dose: 500 mg Methylprednisolone Sodium Succinate (Solu-Medrol -) 40 mg IVPUSH Q8H-IV [facility] Last Admin: 09/20/19 11:22 Dose: Not Given Mirtazapine (Remeron -) 15 mg PO [facility] Last Admin: 09/19/19 22:08 Dose: 15 mg Miscellaneous (Lidoderm Patch Removal) 1 each MC DAILY@2200 [facility] Last Admin: 09/19/19 22:10 Dose: 1 each Nystatin (Nystatin Oral Suspension -) 500,000 units PO Q6HPO [facility] Last Admin: 09/20/19 11:34 Dose: Not Given Ritonavir (Norvir -) 100 mg PO DAILY [facility] Last Admin: 09/20/19 10:05 Dose: 100 mg Valacyclovir HCl (Valtrex -) 1,000 mg PO BID [facility] Last Admin: 09/20/19 10:03 Dose: 1,000 mg Laboratory Results - last 24 hr 09/20/19 09/20/19 07:47 07:47 WBC 7.0 RBC 3.53 L Hgb 10.7 Hct 32.3 L MCV 91.7 MCH 30.4 MCHC 33.2 RDW 15.7 H Plt Count 343 MPV 7.5 Sodium 140 Potassium 3.2 L Chloride 103 Carbon Dioxide 31 Anion Gap 6 L BUN 21.6 H Creatinine 1.0 Est GFR (CKD-EPI)AfAm 69.44 Est GFR (CKD-EPI)NonAf 59.91 Random Glucose 120 H Calcium 8.1 L all imaging reports reviewed ASSESSMENT AND PLAN: 64 year old woman with a history of HTN, hyperlipidemia, COPD, HIV, HSV, who presented to the ED with weakness and diarrhea. 1. COPD exacerbation -placed back in IV steroids, no improvement -only getting nebs 1-2 times a day, changed to Q6H STANDING with PRN order as well -CXR with slight congestion -check 2decho -pulm eval appreciated 2. Infectious gastroenteritis/Influenza A -resolved, completed rx 3. HIV -continue Epivir, Prezista, Ziagen, Norvir 4. HSV, Continue Valtrex 5. HTN 6. HLD 7. Right shoulder pain, better with muscle relaxant, needs op followup Problem List - Problems (1) FELIZ (acute kidney injury) Code(s): N17.9 - ACUTE KIDNEY FAILURE, UNSPECIFIED (2) Dehydration Code(s): E86.0 - DEHYDRATION (3) Acute exacerbation of COPD with asthma Code(s): J44.1 - CHRONIC OBSTRUCTIVE PULMONARY DISEASE W (ACUTE) EXACERBATION; J45.901 - UNSPECIFIED ASTHMA WITH (ACUTE) EXACERBATION (4) COPD exacerbation Code(s): J44.1 - CHRONIC OBSTRUCTIVE PULMONARY DISEASE W (ACUTE) EXACERBATION
[2019-09-20] MEDS: GABAPENTIN 300 MG CAPSULE PO SCH (21:58)
[2019-09-20] MEDS: LIDOCAINE PATCH REMOVAL MC SCH (21:58)
[2019-09-20] MEDS: MIRTAZAPINE 15 MG TABLET (FP) PO SCH (21:58)
[2019-09-20] MEDS: ATORVASTATIN CA 10 MG TABLET (FP) PO SCH (21:58)
[2019-09-21] MEDS: NYSTATIN 500,000 UNITS/5 ML SUSPENSION PO SCH ×5 (00:39→23:45)
[2019-09-21] MEDS: methylPREDNISolone NA SUCC 40 MG/1 ML VIAL IVPUSH SCH ×3 (01:45→17:23)
[2019-09-21] MEDS: ALBUTEROL SO4 2.5/IPRATROPIUM 0.5 INH SOL 3 ML VIAL.NEB. NEB SCH ×4 (07:30→20:34)
[2019-09-21 07:59] LABS: BASO % 0.2 % (0-2.0); HEMATOCRIT 33.6 % (32.4-45.2); HEMOGLOBIN 11.1 GM/dL (10.7-15.3); LYMPH % 6.6 % (8-40); MCH 30.6 pg (25.7-33.7); MEAN CELL VOLUME 92.6 fl (80-96); MEAN PLT VOLUME 7.9 fl (7.5-11.1); MONO % 2.6 % (3.8-10.2); NEUT % 90.6 % (42.8-82.8); PLATELET COUNT 323 K/MM3 (134-434); RBC 3.63 M/mm3 (3.60-5.2); RDW 15.7 % (11.6-15.6)
[2019-09-21 08:35] LABS: ALBUMIN 2.9 g/dl (3.4-5.0); BILIRUBIN,TOTAL 0.3 mg/dL (0.2-1); BLOOD UREA NITROGEN 22.1 mg/dL (7-18); CREATININE 1.2 mg/dL (0.55-1.3); POTASSIUM 3.9 mmol/L (3.5-5.1); TOT PROT 6.7 g/dl (6.4-8.2)
[2019-09-21] MEDS: lamiVUDine 150 MG TABLET PO SCH (09:36)
[2019-09-21] MEDS: LACTOBACILLUS ACIDOPHILUS 1 TABLET PO SCH (09:36)
[2019-09-21] MEDS: amLODIPine BESYLATE 5 MG TABLET (FP) PO SCH (09:37)
[2019-09-21] MEDS: RITONAVIR 100 MG TABLET PO SCH (09:37)
[2019-09-21] MEDS: CHOLESTYRAMINE/SUCROSE 4 GM PACKET PO SCH ×3 (09:38→21:23)
[2019-09-21] MEDS: DARUNAVIR ETHANOLATE 800 MG TAB PO SCH (09:38)
[2019-09-21] MEDS: valACYclovir HCL 500 MG TABLET (FP) PO SCH ×2 (09:38→21:20)
[2019-09-21] MEDS: ABACAVIR SULFATE 300 MG TABLET PO SCH (09:39)
[2019-09-21] MEDS: BUDESONIDE/FORMETEROL FUMARATE 80/4.5 mcg INHALER IH SCH ×2 (09:39→21:24)
[2019-09-21] MEDS: ENOXAPARIN NA (PORCINE) 40 MG/0.4 ML DISP.SYRIN SQ SCH ×2 (09:41→09:48)
[2019-09-21] MEDS: LIDOCAINE 5% TOPICAL PATCH TP SCH (09:41)
--- NOTE | 2019-09-21 09:50 | PN ---
Progress Note (short form) - Note Progress Note: PULMONARY Breathing better today. Less cough and wheezing. Vital Signs Period Temp Pulse Resp BP Sys/Inman Pulse Ox Last 24 Hr 97.5 F-98.1 F 91-95 18-20 139-162/91-101 95 Gen: less tachypneic Heart: RRR Lung: scattered wheezes Abd: soft, nontender Ext: no edema CBC, BMP 09/21/19 06:48 09/21/19 06:48 Active Medications Abacavir Sulfate (Ziagen -) 600 mg PO DAILY [facility] Last Admin: 09/21/19 09:39 Dose: 600 mg Acetaminophen (Tylenol -) 650 mg PO Q4H PRN PRN Reason: PAIN LEVEL 1-5 Last Admin: 09/19/19 22:07 Dose: 650 mg Albuterol Sulfate (Ventolin 0.083% Nebulizer Soln -) 1 amp NEB Q4H PRN PRN Reason: SHORT OF BREATH/WHEEZING Albuterol/Ipratropium (Duoneb -) 1 amp NEB RQID [facility] Last Admin: 09/21/19 07:30 Dose: 1 amp Amlodipine Besylate (Norvasc -) 5 mg PO DAILY [facility] Last Admin: 09/21/19 09:37 Dose: 5 mg Atorvastatin Calcium (Lipitor -) 10 mg PO [facility] Last Admin: 09/20/19 21:58 Dose: 10 mg Budesonide/Formoterol Fumarate (Symbicort 80/4.5mcg -) 2 puff IH BID [facility] Last Admin: 09/21/19 09:39 Dose: 2 puff Cholestyramine Resin (Questran Packet -) 4 gm PO BID [facility] Last Admin: 09/21/19 09:48 Dose: Not Given Darunavir (Prezista -) 800 mg PO DAILY [facility] Last Admin: 09/21/19 09:38 Dose: 800 mg Enoxaparin Sodium (Lovenox -) 40 mg SQ DAILY [facility] Last Admin: 09/21/19 09:48 Dose: Not Given Gabapentin (Neurontin -) 300 mg PO HS [facility] Last Admin: 09/20/19 21:58 Dose: 300 mg Ipratropium [place] (Atrovent 0.02% Nebulizer -) 1 amp NEB Q4H PRN PRN Reason: WHEEZING Last Admin: 01/13/20 19:49 Dose: 1 amp Lactobacillus Acidophilus (Bacid -) 1 tab PO DAILY [facility] Last Admin: 09/21/19 09:36 Dose: 1 tab Lamivudine (Epivir -) 300 mg PO DAILY [facility] Last Admin: 09/21/19 09:36 Dose: 300 mg Lidocaine (Lidoderm Patch -) 1 patch TP DAILY [facility] Last Admin: 09/21/19 09:41 Dose: 1 patch Methocarbamol (Robaxin -) 500 mg PO BID PRN PRN Reason: MUSCLE SPASMS Last Admin: 09/20/19 22:04 Dose: 500 mg Methylprednisolone Sodium Succinate (Solu-Medrol -) 40 mg IVPUSH Q8H-IV [facility] Last Admin: 09/21/19 09:40 Dose: 40 mg Mirtazapine (Remeron -) 15 mg PO HS [facility] Last Admin: 09/20/19 21:58 Dose: 15 mg Miscellaneous (Lidoderm Patch Removal) 1 each MC DAILY@2200 [facility] Last Admin: 09/20/19 21:58 Dose: 1 each Nystatin (Nystatin Oral Suspension -) 500,000 units PO Q6HPO [facility] Last Admin: 09/21/19 06:36 Dose: 500,000 units Ritonavir (Norvir -) 100 mg PO DAILY [facility] Last Admin: 09/21/19 09:37 Dose: 100 mg Valacyclovir HCl (Valtrex -) 1,000 mg PO BID [facility] Last Admin: 09/21/19 09:38 Dose: 1,000 mg A/P Influenza A Acute COPD Exacerbation HIV HTN Hyperlipidemia Anemia - can change steroids to PO prednisone 40mg daily and slow taper as outpt q5 days - inhaled bronchodilators standing and PRN - O2 to keep SpO2 >90% - DVT prophylaxis - can d/c home from pulmonary standpoint
[2019-09-21] MEDS ORDERED: AZITHROMYCIN IVPB 500 MG/250 ML BAG IVPB ONE (13:42)
--- NOTE | 2019-09-21 13:42 | PN ---
Physical Exam: SUBJECTIVE: Patient seen and examined. Complains she is still sob but feels better compared to yesterday. OBJECTIVE: Vital Signs Period Temp Pulse Resp BP Sys/Inman Pulse Ox Last 24 Hr 97.5 F-98.1 F 91-120 18-20 139-161/91-100 95-97 GENERAL: dyspneic at rest EYES: PERRL, extraocular movements intact, sclera anicteric, conjunctiva clear ENT: moist mucous membranes. NECK: supple. LUNGS: decreased breath sounds, scattered wheezing (less than yesterday) HEART: RRR, no murmurs appreciated ABDOMEN: Soft, nontender, nondistended, normoactive bowel sounds EXTREMITIES: 2+ pulses Laboratory Results - last 24 hr 09/21/19 09/21/19 06:48 06:48 WBC 7.0 RBC 3.63 Hgb 11.1 Hct 33.6 MCV 92.6 MCH 30.6 MCHC 33.0 RDW 15.7 H Plt Count 323 MPV 7.9 Absolute Neuts (auto) 6.3 Neutrophils % 90.6 H Lymphocytes % 6.6 L D Monocytes % 2.6 L Eosinophils % 0.0 Basophils % 0.2 Nucleated RBC % 1 H Sodium 139 Potassium 3.9 Chloride 105 Carbon Dioxide 27 Anion Gap 7 L BUN 22.1 H Creatinine 1.2 Est GFR (CKD-EPI)AfAm 55.70 Est GFR (CKD-EPI)NonAf 48.06 Random Glucose 291 H Calcium 8.0 L Total Bilirubin 0.3 AST 99 H ALT 187 H Alkaline Phosphatase 142 H Total Protein 6.7 Albumin 2.9 L Active Medications Generic Name Dose Route Start Last Admin Trade Name Brianq PRN Reason Stop Dose Admin Abacavir Sulfate 600 mg 09/10/19 10:00 09/21/19 09:39 Ziagen - PO 600 mg DAILY SHERI Administration Acetaminophen 650 mg 09/17/19 11:47 09/19/19 22:07 Tylenol - PO 650 mg Q4H PRN Administration PAIN LEVEL 1-5 Albuterol Sulfate 1 amp 09/20/19 10:24 Ventolin 0.083% Nebulizer Soln - NEB Q4H PRN SHORT OF BREATH/WHEEZING Albuterol/Ipratropium 1 amp 09/20/19 12:00 09/21/19 11:37 Duoneb - NEB 1 amp RQID SHERI Administration Amlodipine Besylate 5 mg 09/20/19 10:00 09/21/19 09:37 Norvasc - PO 5 mg DAILY SHERI Administration Atorvastatin Calcium 10 mg 09/09/19 22:00 09/20/19 21:58 Lipitor - PO 10 mg HS SHERI Administration Budesonide/Formoterol Fumarate 2 puff 09/09/19 22:00 09/21/19 09:39 Symbicort 80/4.5mcg - IH 2 puff BID SHERI Administration Cholestyramine Resin 4 gm 09/11/19 20:15 09/21/19 09:48 Questran Packet - PO Not Given BID SHERI Darunavir 800 mg 09/10/19 10:00 09/21/19 09:38 Prezista - PO 800 mg DAILY SHERI Administration Enoxaparin Sodium 40 mg 09/11/19 10:00 09/21/19 09:48 Lovenox - SQ Not Given DAILY SHERI Gabapentin 300 mg 09/09/19 22:00 09/20/19 21:58 Neurontin - PO 300 mg HS SHERI Administration Ipratropium [place] 1 amp 09/13/19 16:50 09/19/19 19:49 Atrovent 0.02% Nebulizer - NEB 1 amp Q4H PRN Administration WHEEZING Lactobacillus Acidophilus 1 tab 09/10/19 10:00 09/21/19 09:36 Bacid - PO 1 tab DAILY SHERI Administration Lamivudine 300 mg 09/10/19 10:00 09/21/19 09:36 Epivir - PO 300 mg DAILY SHERI Administration Lidocaine 1 patch 09/17/19 12:00 09/21/19 09:41 Lidoderm Patch - TP 1 patch DAILY SHERI Administration Methocarbamol 500 mg 09/18/19 12:33 09/20/19 22:04 Robaxin - PO 500 mg BID PRN Administration MUSCLE SPASMS Methylprednisolone Sodium Succinate 40 mg 09/20/19 10:00 09/21/19 09:40 Solu-Medrol - IVPUSH 40 mg Q8H-IV SHERI Administration Mirtazapine 15 mg 09/09/19 22:00 09/20/19 21:58 Remeron - PO 15 mg HS SHERI Administration Miscellaneous 1 each 09/17/19 22:00 09/20/19 21:58 Lidoderm Patch Removal MC 1 each DAILY@2200 SHERI Administration Nystatin 500,000 units 09/19/19 12:00 09/21/19 11:39 Nystatin Oral Suspension - PO 500,000 units Q6HPO SHERI Administration Ritonavir 100 mg 09/10/19 10:00 09/21/19 09:37 Norvir - PO 100 mg DAILY SHERI Administration Valacyclovir HCl 1,000 mg 09/10/19 22:00 09/21/19 09:38 Valtrex - PO 1,000 mg BID SHERI Administration ASSESSMENT/PLAN: 64 year old woman with a history of HTN, hyperlipidemia, COPD, HIV, HSV, who presented to the ED with weakness and diarrhea. #COPD exacerbation -patient with some improvement this morning . still complains of SOB -cont IV medrol 40mg q8h. Will likely start taper tomorrow -cont nebs standing q4h, and albuterol prn -pulm eval appreciated -start IV azithromycin. #Infectious gastroenteritis/Influenza A -resolved, completed rx #HIV -continue Epivir, Prezista, Ziagen, Norvir #HSV -Continue Valtrex #HTN -start norvasc 5mg #HLD -lipitor 10 #DVT ppx -lovenox 40 #Right shoulder pain -lido patch, muscle relaxant with good relief dispo: likely discharge in the AM. Visit type - Emergency Visit Emergency Visit: Yes ED Registration Date: 09/09/19 Care time: The patient presented to the Emergency Department on the above date and was hospitalized for further evaluation of their emergent condition. - New Patient This patient is new to me today: Yes Date on this admission: 09/21/19 - Critical Care Critical Care patient: No ATTENDING PHYSICIAN STATEMENT I saw and evaluated the patient. I reviewed the resident's note and discussed the case with the resident. I agree with the resident's findings and plan as documented. SUBJECTIVE: OBJECTIVE: ASSESSMENT AND PLAN:
--- NOTE | 2019-09-21 18:48 | PN ---
Teaching Attending Note Name of Resident: Martinez Rivas ATTENDING PHYSICIAN STATEMENT I saw and evaluated the patient. I reviewed the resident's note and discussed the case with the resident. I agree with the resident's findings and plan as documented. SUBJECTIVE: Seen and examined at bedside, feels better although HERMAN remains. Has 33 steps at home OBJECTIVE: Vital Signs - 24 hr 09/20/19 09/20/19 09/21/19 21:00 22:00 06:00 Temperature 98.1 F 98 F Pulse Rate 92 H 95 H Respiratory 18 20 Rate Blood Pressure 150/93 139/95 O2 Sat by Pulse 95 Oximetry (%) 09/21/19 09/21/19 09/21/19 08:20 11:37 13:00 Temperature 98 F 98.5 F Pulse Rate 97 H 120 H 130 H Respiratory 20 20 Rate Blood Pressure 161/100 129/81 O2 Sat by Pulse 97 Oximetry (%) 09/21/19 17:18 Temperature 97.9 F Pulse Rate 109 H Respiratory 20 Rate Blood Pressure 135/82 O2 Sat by Pulse Oximetry (%) PE: Constitutional: Yes: Well Nourished, No Distress, Calm Cardiovascular: Yes: WNL, Regular Rate and Rhythm Respiratory: Yes: Wheezes (bilaterally), labored breathing after speaking Gastrointestinal: Yes: WNL, Normal Bowel Sounds, Soft Musculoskeletal: Yes: WNL Extremities: Yes: WNL Edema: No Current Medications Abacavir Sulfate (Ziagen -) 600 mg PO DAILY [facility] Last Admin: 09/21/19 09:39 Dose: 600 mg Acetaminophen (Tylenol -) 650 mg PO Q4H PRN PRN Reason: PAIN LEVEL 1-5 Last Admin: 09/19/19 22:07 Dose: 650 mg Albuterol Sulfate (Ventolin 0.083% Nebulizer Soln -) 1 amp NEB Q4H PRN PRN Reason: SHORT OF BREATH/WHEEZING Albuterol/Ipratropium (Duoneb -) 1 amp NEB RQID [facility] Last Admin: 09/21/19 16:45 Dose: 1 amp Amlodipine Besylate (Norvasc -) 5 mg PO DAILY [facility] Last Admin: 09/21/19 09:37 Dose: 5 mg Atorvastatin Calcium (Lipitor -) 10 mg PO HS [facility] Last Admin: 09/20/19 21:58 Dose: 10 mg Budesonide/Formoterol Fumarate (Symbicort 80/4.5mcg -) 2 puff IH BID [facility] Last Admin: 09/21/19 09:39 Dose: 2 puff Cholestyramine Resin (Questran Packet -) 4 gm PO BID [facility] Last Admin: 09/21/19 09:48 Dose: Not Given Darunavir (Prezista -) 800 mg PO DAILY [facility] Last Admin: 09/21/19 09:38 Dose: 800 mg Enoxaparin Sodium (Lovenox -) 40 mg SQ DAILY [facility] Last Admin: 09/21/19 09:48 Dose: Not Given Gabapentin (Neurontin -) 300 mg PO HS [facility] Last Admin: 09/20/19 21:58 Dose: 300 mg Lactobacillus Acidophilus (Bacid -) 1 tab PO DAILY [facility] Last Admin: 09/21/19 09:36 Dose: 1 tab Lamivudine (Epivir -) 300 mg PO DAILY [facility] Last Admin: 09/21/19 09:36 Dose: 300 mg Lidocaine (Lidoderm Patch -) 1 patch TP DAILY [facility] Last Admin: 09/21/19 09:41 Dose: 1 patch Methocarbamol (Robaxin -) 500 mg PO BID PRN PRN Reason: MUSCLE SPASMS Last Admin: 09/20/19 22:04 Dose: 500 mg Methylprednisolone Sodium Succinate (Solu-Medrol -) 40 mg IVPUSH Q8H-IV [facility] Last Admin: 09/21/19 17:23 Dose: 40 mg Mirtazapine (Remeron -) 15 mg PO HS [facility] Last Admin: 09/20/19 21:58 Dose: 15 mg Miscellaneous (Lidoderm Patch Removal) 1 each MC DAILY@2200 [facility] Last Admin: 09/20/19 21:58 Dose: 1 each Nystatin (Nystatin Oral Suspension -) 500,000 units PO Q6HPO [facility] Last Admin: 09/21/19 17:24 Dose: 500,000 units Ritonavir (Norvir -) 100 mg PO DAILY [facility] Last Admin: 09/21/19 09:37 Dose: 100 mg Valacyclovir HCl (Valtrex -) 1,000 mg PO BID [facility] Last Admin: 09/21/19 09:38 Dose: 1,000 mg Laboratory Results - last 24 hr 09/21/19 09/21/19 06:48 06:48 WBC 7.0 RBC 3.63 Hgb 11.1 Hct 33.6 MCV 92.6 MCH 30.6 MCHC 33.0 RDW 15.7 H Plt Count 323 MPV 7.9 Absolute Neuts (auto) 6.3 Neutrophils % 90.6 H Lymphocytes % 6.6 L D Monocytes % 2.6 L Eosinophils % 0.0 Basophils % 0.2 Nucleated RBC % 1 H Sodium 139 Potassium 3.9 Chloride 105 Carbon Dioxide 27 Anion Gap 7 L BUN 22.1 H Creatinine 1.2 Est GFR (CKD-EPI)AfAm 55.70 Est GFR (CKD-EPI)NonAf 48.06 Random Glucose 291 H Calcium 8.0 L Total Bilirubin 0.3 AST 99 H ALT 187 H Alkaline Phosphatase 142 H Total Protein 6.7 Albumin 2.9 L ASSESSMENT AND PLAN: 64 year old woman with a history of HTN, hyperlipidemia, COPD, HIV, HSV, who presented to the ED with weakness and diarrhea. 1. COPD exacerbation -would keep on IV steroids -start azithromycin -standing nebs -not ready for DC yet -pulm eval 2. Infectious gastroenteritis/Influenza A -resolved, completed rx 3. HIV -continue Epivir, Prezista, Ziagen, Norvir 4. HSV, Continue Valtrex 5. HTN 6. HLD 7. Right shoulder pain, better with muscle relaxant, needs op followup Problem List - Problems (1) FELIZ (acute kidney injury) Code(s): N17.9 - ACUTE KIDNEY FAILURE, UNSPECIFIED (2) Dehydration Code(s): E86.0 - DEHYDRATION (3) Acute exacerbation of COPD with asthma Code(s): J44.1 - CHRONIC OBSTRUCTIVE PULMONARY DISEASE W (ACUTE) EXACERBATION; J45.901 - UNSPECIFIED ASTHMA WITH (ACUTE) EXACERBATION (4) COPD exacerbation Code(s): J44.1 - CHRONIC OBSTRUCTIVE PULMONARY DISEASE W (ACUTE) EXACERBATION
[2019-09-21] MEDS ORDERED: PT OWN MED DRAWER 7, Y5N ONE (20:48)
[2019-09-21] MEDS: MIRTAZAPINE 15 MG TABLET (FP) PO SCH (21:21)
[2019-09-21] MEDS: GABAPENTIN 300 MG CAPSULE PO SCH (21:21)
[2019-09-21] MEDS: ATORVASTATIN CA 10 MG TABLET (FP) PO SCH (21:21)
[2019-09-21] MEDS: LIDOCAINE PATCH REMOVAL MC SCH (21:23)
[2019-09-22] MEDS: methylPREDNISolone NA SUCC 40 MG/1 ML VIAL IVPUSH SCH ×2 (01:49→10:06)
[2019-09-22] MEDS: NYSTATIN 500,000 UNITS/5 ML SUSPENSION PO SCH ×2 (05:50→12:08)
[2019-09-22] MEDS: ALBUTEROL SO4 2.5/IPRATROPIUM 0.5 INH SOL 3 ML VIAL.NEB. NEB SCH ×2 (07:49→11:43)
--- NOTE | 2019-09-22 09:21 | DS ---
Physical Exam: SUBJECTIVE: SUBJECTIVE: Patient seen and examined. Offers no complaints at this time. Says her breathing today is much better. OBJECTIVE: Vital Signs Period Temp Pulse Resp BP Sys/Inman Pulse Ox Last 24 Hr 97.9 F-98.5 F 77-130 20-20 129-169/81-95 96-97 PHYSICAL EXAM GENERAL: comfortable, sleeping EYES: PERRL, extraocular movements intact, sclera anicteric, conjunctiva clear ENT: moist mucous membranes. NECK: supple. LUNGS: decreased breath sounds, mild wheezing HEART: RRR, no murmurs appreciated ABDOMEN: Soft, nontender, nondistended, normoactive bowel sounds EXTREMITIES: 2+ pulses LABS HOSPITAL COURSE: Date of Admission:09/09/19 64 year old woman with a history of HTN, hyperlipidemia, COPD, HIV, HSV, who presented to the ED with weakness and diarrhea, and developed COPD exacerbation. #COPD exacerbation -improved -was on IV medrol 40mg q8h. -will discharge on 20 day steroid taper. -was treated with nebs standing q4h, and albuterol prn -pulm eval appreciated -started IV azithromycin. Will discharge on doxycycline because of prolonged QTC for 3 more days. #Infectious gastroenteritis/Influenza A -resolved, completed rx #HIV -continue Epivir, Prezista, Ziagen, Norvir #HSV -Continue Valtrex #HTN -start norvasc 5mg #HLD -lipitor 10 Date of Discharge: 09/22/19 Minutes to complete discharge: 35 Discharge Summary Problems reviewed: Yes Reason For Visit: ACUTE KIDNEY INJURY HIV Current Active Problems FELIZ (acute kidney injury) (Acute) Dehydration (Acute) Flu (Acute) Condition: Stable - Instructions Diet, Activity, Other Instructions: You were in the hospital because you had diarrhea. This was likely a viral gastroenteritis (stomach virus), or may have been from your immunocompromised state or the flu. You were managed with IV fluids, medication for the flu, and steroids for your breathing (COPD). You were also treated for COPD. You will be discharged on a 20 day steroid taper. Please make an appointment with your lung doctor after discharge. Medications Please continue the following medications at home: 1. Prednisone taper for your COPD -Take Prednisone 40mg x 5 day -Prednisone 30mg x 5 days -Prednisone 20mg x 5 days -Prednisone 10mg x 5 days 2. Doxycycline (antibiotic) for 4 more days. Take one pill on the day of discharge (09/22) and 2 pills a day for 3 more days. 3. Take protonix 40mg (1 pill) daily while you are on the steroid. (stomach acid suppressant) 4. You may continue your home medications, including valtrex 1 gram twice a day for your genital lesions. This will be changed to 500mg twice a day by your infectious disease doctor, once the lesions have resolved. Follow up appointments Please follow with the following doctors upon your discharge: -your infectious disease doctor, Dr. Ivey - 1 week to discuss your visit -please continue to f/u with your home pulmonary, cardiology, and neurology doctors Referrals: Vikram Crouch MD [Staff Physician] - 1 Week Jamila Ivey MD [Staff Physician] - 1 Week Disposition: HOME - Home Medications Comprehensive Discharge Medication List: Ambulatory Orders Lactobacillus Acidophilus [Bacid -] 1 tab PO DAILY 28 Days #28 tab 10/04/18 Albuterol Sulfate Inhaler - [Ventolin HFA Inhaler -] 1 - 2 inh PO Q4H PRN #1 inhaler 04/02/19 Mirtazapine 15 mg PO HS #30 tablet 07/21/19 Albuterol 0.083% Nebulizer [place] [Ventolin 0.083% Nebulizer Soln -] 1 neb NEB Q6H PRN #120 vial 08/05/19 Budesonide/Formeterol Fumarate [SYMBICORT 80/4.5mcg -] 2 inh PO BID #1 cannister 08/09/19 Levalbuterol HCl [Xopenex] 0.63 mg IH QID #4 box 08/09/19 Nystatin Cream [Mycostatin Cream -] 1 applic TP BID #1 applic 08/09/19 Nystatin Oral Suspension - [Nystatin Oral Susp 937053 Units/5 ML -] 5 ml PO Q6H #200 cup 08/09/19 Levalbuterol Tartrate [Levalbuterol Tartrate Hfa] 15 gm IH QID #1 inhaler Tiotropium [place] [Spiriva Respimat] 4 gm IH DAILY #1 mist.inhal 08/18/19 Valacyclovir HCl [Valtrex -] 1,000 mg PO BID #28 tablet 08/23/19 Acetaminophen [Tylenol] 650 mg PO Q6H PRN #100 tablet 08/30/19 Gabapentin [Neurontin -] 300 mg PO HS #30 capsule 08/30/19 Abacavir Sulfate/Lamivudine [Abacavir-Lamivudine 600-300 mg] 1 each PO DAILY # 30 tablet 09/06/19 Darunavir Ethanolate [Prezista -] 800 mg PO DAILY #30 tablet 09/06/19 Furosemide [Lasix -] 20 mg PO DAILY #30 tablet 09/06/19 Pravastatin Sodium 10 mg PO DAILY #30 tablet 09/06/19 Ritonavir 100 mg PO DAILY #30 tablet 09/06/19 Pantoprazole Sodium [Protonix] 40 mg PO DAILY #30 tablet. 09/13/19 Amlodipine Besylate [Norvasc -] 5 mg PO DAILY #30 tablet 09/22/19 Doxycycline Hyclate 100 mg PO BID #7 capsule 09/22/19 predniSONE [Deltasone -] See Taper PO ASDIR #50 tab 09/22/19 This patient is new to me today: Yes Date on this admission: 09/22/19 Emergency Visit: Yes ED Registration Date: 09/09/19 Care time: The patient presented to the Emergency Department on the above date and was hospitalized for further evaluation of their emergent condition. Critical Care patient: No - Discharge Referral Referred to [facility] No ATTENDING PHYSICIAN STATEMENT I saw and evaluated the patient. I reviewed the resident's note and discussed the case with the resident. I agree with the resident's findings and plan as documented. SUBJECTIVE: OBJECTIVE: ASSESSMENT AND PLAN:
[2019-09-22] MEDS ORDERED: DOXYCYCLINE INJECTION 100 MG in DEXTROSE 5%-WATER - 100 ML IVPB ONE (10:00)
--- NOTE | 2019-09-22 10:03 | PN ---
Progress Note (short form) - Note Progress Note: PULMONARY Breathing continues to improve. Less cough and wheezing. Vital Signs Period Temp Pulse Resp BP Sys/Inman Pulse Ox Last 24 Hr 97.9 F-98.5 F 77-130 20-20 129-169/81-95 96-97 Gen: less tachypneic Heart: RRR Lung: scattered wheezes Abd: soft, nontender Ext: no edema CBC, BMP 09/21/19 06:48 09/21/19 06:48 Active Medications Abacavir Sulfate (Ziagen -) 600 mg PO DAILY [facility] Last Admin: 09/21/19 09:39 Dose: 600 mg Acetaminophen (Tylenol -) 650 mg PO Q4H PRN PRN Reason: PAIN LEVEL 1-5 Last Admin: 09/19/19 22:07 Dose: 650 mg Albuterol Sulfate (Ventolin 0.083% Nebulizer Soln -) 1 amp NEB Q4H PRN PRN Reason: SHORT OF BREATH/WHEEZING Albuterol/Ipratropium (Duoneb -) 1 amp NEB RQID [facility] Last Admin: 09/22/19 07:49 Dose: 1 amp Amlodipine Besylate (Norvasc -) 5 mg PO DAILY [facility] Last Admin: 09/21/19 09:37 Dose: 5 mg Atorvastatin Calcium (Lipitor -) 10 mg PO HS [facility] Last Admin: 09/21/19 21:21 Dose: 10 mg Budesonide/Formoterol Fumarate (Symbicort 80/4.5mcg -) 2 puff IH BID [facility] Last Admin: 09/21/19 21:24 Dose: 2 puff Cholestyramine Resin (Questran Packet -) 4 gm PO BID [facility] Last Admin: 09/21/19 21:23 Dose: Not Given Darunavir (Prezista -) 800 mg PO DAILY [facility] Last Admin: 09/21/19 09:38 Dose: 800 mg Enoxaparin Sodium (Lovenox -) 40 mg SQ DAILY [facility] Last Admin: 09/21/19 09:48 Dose: Not Given Gabapentin (Neurontin -) 300 mg PO HS [facility] Last Admin: 09/21/19 21:21 Dose: 300 mg Doxycycline Hyclate 100 mg/ (Dextrose) 100 mls @ 50 mls/hr IVPB ONCE ONE Stop: 09/22/19 11:59 Lactobacillus Acidophilus (Bacid -) 1 tab PO DAILY [facility] Last Admin: 09/21/19 09:36 Dose: 1 tab Lamivudine (Epivir -) 300 mg PO DAILY [facility] Last Admin: 09/21/19 09:36 Dose: 300 mg Lidocaine (Lidoderm Patch -) 1 patch TP DAILY [facility] Last Admin: 09/21/19 09:41 Dose: 1 patch Methocarbamol (Robaxin -) 500 mg PO BID PRN PRN Reason: MUSCLE SPASMS Last Admin: 09/20/19 22:04 Dose: 500 mg Methylprednisolone Sodium Succinate (Solu-Medrol -) 40 mg IVPUSH Q8H-IV [facility] Last Admin: 09/22/19 01:49 Dose: 40 mg Mirtazapine (Remeron -) 15 mg PO HS [facility] Last Admin: 09/21/19 21:21 Dose: 15 mg Miscellaneous (Lidoderm Patch Removal) 1 each MC DAILY@2200 [facility] Last Admin: 09/21/19 21:23 Dose: 1 each Nystatin (Nystatin Oral Suspension -) 500,000 units PO Q6HPO [facility] Last Admin: 09/22/19 05:50 Dose: 500,000 units Ritonavir (Norvir -) 100 mg PO DAILY [facility] Last Admin: 09/21/19 09:37 Dose: 100 mg Valacyclovir HCl (Valtrex -) 1,000 mg PO BID [facility] Last Admin: 09/21/19 21:20 Dose: 1,000 mg A/P Influenza A Acute COPD Exacerbation HIV HTN Hyperlipidemia Anemia - can change steroids to PO prednisone 40mg daily and slow taper as outpt q5 days - inhaled bronchodilators standing and PRN - O2 to keep SpO2 >90% - DVT prophylaxis - can d/c home from pulmonary standpoint
[2019-09-22] MEDS: LACTOBACILLUS ACIDOPHILUS 1 TABLET PO SCH (10:06)
[2019-09-22] MEDS: LIDOCAINE 5% TOPICAL PATCH TP SCH (10:06)
[2019-09-22] MEDS: valACYclovir HCL 500 MG TABLET (FP) PO SCH (10:06)
[2019-09-22] MEDS: amLODIPine BESYLATE 5 MG TABLET (FP) PO SCH (10:06)
[2019-09-22] MEDS: CHOLESTYRAMINE/SUCROSE 4 GM PACKET PO SCH (10:07)
[2019-09-22] MEDS ORDERED: PT OWN MED DRAWER 7, Y5N ONE ×2 (10:26→10:28)
[2019-09-22] MEDS: lamiVUDine 150 MG TABLET PO SCH (10:31)
[2019-09-22] MEDS: DARUNAVIR ETHANOLATE 800 MG TAB PO SCH (10:31)
[2019-09-22] MEDS: RITONAVIR 100 MG TABLET PO SCH (10:32)
[2019-09-22] MEDS: ENOXAPARIN NA (PORCINE) 40 MG/0.4 ML DISP.SYRIN SQ SCH (10:32)
[2019-09-22] MEDS: ABACAVIR SULFATE 300 MG TABLET PO SCH (10:33)
[2019-09-22] MEDS: BUDESONIDE/FORMETEROL FUMARATE 80/4.5 mcg INHALER IH SCH (10:34)
--- NOTE | 2019-09-22 11:51 | EKG ---
Test Reason : Blood Pressure : / mmHG Vent. Rate : 102 BPM Atrial Rate : 102 BPM P-R Int : 144 ms QRS Dur : 078 ms QT Int : 364 ms P-R-T Axes : 061 051 062 degrees QTc Int : 474 ms SINUS TACHYCARDIA OTHERWISE NORMAL ECG WHEN COMPARED WITH ECG OF 09-SEP-2019 14:06, NO SIGNIFICANT CHANGE WAS FOUND Confirmed by ISMAEL STRATTON MD ([id number]) on 09/22/2019 11:50:30 AM Referred By: Confirmed By:ISMAEL STRATTON MD
[2019-09-22 12:10] VITALS: BP 134/99; PULSE 92; TEMP 98.1
== END 2019-09-22 14:32 | disposition home or self-care (01) | DRG 866 ==
LOC: JER 13:26 → JERBED 15:47 → J8W 18:19
PROVIDERS: ATTEND Internal Medicine
DX: J10.2 Influenza due to other identified influenza virus with gastrointestinal manifestations (principal); N17.9 Acute kidney failure, unspecified; B20 Human immunodeficiency virus [HIV] disease; J44.1 Chronic obstructive pulmonary disease with (acute) exacerbation; I10 Essential (primary) hypertension; E78.5 Hyperlipidemia, unspecified; R00.0 Tachycardia, unspecified; I95.9 Hypotension, unspecified; R09.02 Hypoxemia; D64.9 Anemia, unspecified; M25.511 Pain in right shoulder; G62.9 Polyneuropathy, unspecified; F17.200 Nicotine dependence, unspecified, uncomplicated; E86.0 Dehydration; R19.7 Diarrhea, unspecified; Z88.0 Allergy status to penicillin; E87.6 Hypokalemia; R63.0 Anorexia; Z68.28 Body mass index [BMI] 28.0-28.9, adult
CPT/HCPCS: 36415; 71045-TC-FY; 71046-TC-FY; 80048; 80053; 80076; 82710; 82803; 83605; 83615; 83735; 84100; 84443; 84484; 85025; 85027; 86359; 86360; 87040; 87045; 87046; 87177; 87186; 87205; 87209; 87324; 87328; 87329; 87449; 87536; 87804; 93005; 93010; 94640; 94761; 97116-GP; 97161-GP; 99285-25; G0463-25

== ENCOUNTER 2019-10-16 17:13 | Inpatient (IN) | payer OTHER ==
--- NOTE | 2019-10-16 18:23 | PDOC ---
History of Present Illness - General Chief Complaint: SIRS, Suspected/Possible Stated Complaint: WEAKNES History Source: Patient Exam Limitations: No Limitations - History of Present Illness Initial Comments: 64 year old woman with a history of HTN, hyperlipidemia, COPD (recently admitted for exacerbation), HIV (recent CD4 104; patient endorses taking prophylactic bactrim and current on her HAART), and HSV presents to the emergency department with fever, SOB, and diarrhea for the past 4 days. Per the patient, she was recently admitted for COPD exacerbation. She denies chest pain , but says there is a "lump" in the center of her chest that feels Per the patient, she denies recent sick contacts and recent travels. She was diagnosed with flu A earlier last month. Per the patient, she denies chest pain, vomiting , headaches, visual changes, dysuria, hematuria, hematochezia, and leg pain/ swelling. Endorses nausea. Allergies: PCN Past History - Past Medical History Allergies/Adverse Reactions: Allergies Allergy/AdvReac Type Severity Reaction Status Date / Time Penicillins Allergy Severe Swelling Verified 10/16/19 17:22 SWENGELNAISE AdvReac Uncoded 10/16/19 17:22 Home Medications: Ambulatory Orders Lactobacillus Acidophilus [Bacid -] 1 tab PO DAILY 28 Days #28 tab 10/04/18 Albuterol Sulfate Inhaler - [Ventolin HFA Inhaler -] 1 - 2 inh PO Q4H PRN #1 inhaler 04/02/19 Levalbuterol Tartrate [Levalbuterol Tartrate Hfa] 15 gm IH QID #1 inhaler Tiotropium Struthers [Spiriva Respimat] 4 gm IH DAILY #1 mist.inhal 08/18/19 Valacyclovir HCl [Valtrex -] 1,000 mg PO BID #28 tablet 08/23/19 Abacavir Sulfate/Lamivudine [Abacavir-Lamivudine 600-300 mg] 1 each PO DAILY # 30 tablet 09/06/19 Darunavir Ethanolate [Prezista -] 800 mg PO DAILY #30 tablet 09/06/19 Ritonavir 100 mg PO DAILY #30 tablet 09/06/19 Ergocalciferol (Vitamin D2) [Vitamin D2] 50,000 unit PO WEEKLY #4 capsule Mirtazapine 15 mg PO HS #30 tablet 09/29/19 Vitamin B Complex [B Complex] 1 each PO DAILY #30 tablet 09/29/19 Zolpidem Tartrate [Ambien] 5 mg PO HS PRN #15 tablet MDD 1 09/29/19 Diclofenac Sodium [Voltaren] 100 gm TP BID #1 gel..gram. 10/06/19 Gabapentin 300 mg PO BID #60 capsule 10/06/19 Methocarbamol [Robaxin -] 500 mg PO BID PRN #15 tablet 10/13/19 Oxycodone HCl/Acetaminophen [Endocet 5-325 Tablet] 1 each PO TID PRN #20 tablet MDD 3 10/13/19 Budesonide/Formeterol Fumarate [SYMBICORT 160/4.5mcg -] 2 puff IH BID 30 Days # 1 inhaler 10/27/19 Guaifenesin [Robitussin -] 10 ml PO Q6H PRN #1 cup 10/27/19 Hydrochlorothiazide [Hctz -] 25 mg PO DAILY #30 tablet 10/27/19 Insulin (Novolog 70/30) [Novolog Mix 70/30 Vial -] 20 units SQ BIDAC 30 Days #2 units 10/27/19 Insulin (Novolog) [Novolog -] 10 units SQ ACHS 30 Days #2 units 10/27/19 Insulin Sliding Scale [Novolog Vial Sliding Scale -] 1 vial SQ ACHS 30 Days #1 units 10/27/19 Isopropyl Alcohol [Alcoh-Wipe] 1 each ACHS #120 towelette 10/27/19 Losartan Potassium [Cozaar -] 100 mg PO DAILY #60 tablet 10/27/19 Miscellaneous Medical Supply [Glucometer Device] 1 each SQ ASDIR #1 kit Miscellaneous Medical Supply [Glucometer Test Strips #100] 1 each SQ ASDIR #1 box 10/27/19 Miscellaneous Medical Supply [Lancets] 1 each SQ ASDIR #1 box 10/27/19 Nystatin Oral Suspension - [Nystatin Oral Susp 618229 Units/5 ML -] 500,000 units PO Q6HPO 30 Days #1 cup 10/27/19 Pantoprazole Sodium [Protonix -] 40 mg PO DAILY #30 tablet.ec 10/27/19 Sulfamethoxazole/Trimethoprim [Bactrim DS -] 1 each PO MoWeFr@1000 #30 tablet Syring-Needl,Disp,Insul,0.3 ml [Insulin Syringe] 1 each [facility] #100 disp.syrin 10/27/19 predniSONE [Deltasone -] 10 mg PO ASDIR #18 tab 10/27/19 predniSONE [Deltasone -] 10 mg PO ASDIR #29 tab 10/27/19 Fluconazole [Diflucan -] 100 mg PO DAILY #7 tablet 11/01/19 Anemia: Yes Asthma: Yes Cancer: No Cardiac Disorders: No CVA: No COPD: No CHF: No DVT: No Dementia: No Diabetes: No GI Disorders: Yes (GERD, ANOREXIA, LAST EGD 2013) Disorders: No HTN: No (low BP) Hypercholesterolemia: No Liver Disease: Yes Psychiatric Problems: Yes (ANXIETY) Seizures: No - Surgical History Abdominal Surgery: Yes (EXPLORATORY) - Immunization History Immunization Up to Date: Yes - Psycho Social/Smoking Cessation Hx Smoking Status: No Smoking History: Never smoked Have you smoked in the past 12 months: No Number of Cigarettes Smoked Daily: 2 If you are a former smoker, when did you quit?: 2 months ago Cigars Per Day: 0 'Breaking Loose' booklet given: 12/15/17 Hx Alcohol Use: Yes (rare - social) Drug/Substance Use Hx: Yes ( none x 3 years ) Substance Use Type: Cocaine, Marijuana Hx Substance Use Treatment: Yes (rehab) Review of Systems - Review of Systems Able to Perform ROS?: Yes Constitutional: Yes: Fever, Weakness. No: Chills, Diaphoresis HEENTM: No: Eye Pain, Ear Pain, Nose Pain, Throat Pain, Mouth Pain Respiratory: Yes: Cough, Shortness of Breath. No: Hemoptysis Cardiac (ROS): No: Chest Pain, Lightheadedness, Palpitations, Chest Tightness ABD/GI: Yes: Nausea. No: Constipated, Diarrhea, Rectal Bleeding, Vomiting, Tarry Stools : No: Burning, Dysuria, Hematuria Musculoskeletal: No: Back Pain, Joint Pain, Neck Pain Integumentary: No: Bruising, Erythema, Rash Neurological: No: Headache, Numbness, Tingling, Tremors Psychiatric: No: Change in Appetite Endocrine: No: Unexplained Weight Loss Hematologic/Lymphatic: No: Anemia *Physical Exam - Vital Signs Last Vital Signs Temp Pulse Resp BP Pulse Ox 98.6 F 127 H 24 H 118/56 L 92 L 10/16/19 17:18 10/16/19 17:59 10/16/19 17:59 10/16/19 17:18 10/16/19 17:59 - Physical Exam General Appearance: Yes: Nourished, Appropriately Dressed. No: Apparent Distress, Intoxicated HEENT: positive: EOMI, JOHNNA, Normal Voice, Symmetrical, Other (dry mucous membranes). negative: Pharynx Normal (thrush scant noted on the lateral aspects of the tongue bilaterally.), Pale Conjunctivae, Scleral Icterus (R), Scleral Icterus (L), Muffled/Hoarse voice Neck: positive: Trachea midline, Supple. negative: Tender, Lymphadenopathy (R) , Lymphadenopathy (L) Respiratory/Chest: positive: Decreased Breath Sounds, Wheezing. negative: Chest Tender, Lungs Clear, Normal Breath Sounds, Respiratory Distress, Accessory Muscle Use Cardiovascular: positive: Regular Rhythm, S1, S2, Tachycardia. negative: Systolic Murmur Gastrointestinal/Abdominal: positive: Normal Bowel Sounds, Flat, Soft. negative : Tender, Distended, Guarding, Rebound Musculoskeletal: positive: Normal Inspection. negative: CVA Tenderness, Vertebral Tenderness Extremity: positive: Normal Capillary Refill, Normal Inspection, Normal Range of Motion. negative: Tender, Swelling, Calf Tenderness Integumentary: positive: Normal Color, Dry, Warm. negative: Rash, Swelling, Ecchymosis Neurologic: positive: Fully Oriented, Alert, Normal Mood/Affect ED Treatment Course - LABORATORY CBC & Chemistry Diagram: 10/26/19 07:10 10/26/19 07:10 Medical Decision Making - Medical Decision Making 64 year old woman with a history of HTN, hyperlipidemia, COPD (recently admitted for exacerbation), HIV (recent CD4 104; patient endorses taking prophylactic bactrim and current on her HAART), and HSV presents to the emergency department with fever, SOB, and diarrhea for the past 4 days. Initial vitals: Initial Vital Signs Temp Pulse Resp BP Pulse Ox 98.6 F 136 H 20 118/56 L 95 10/16/19 17:18 10/16/19 17:18 10/16/19 17:18 10/16/19 17:18 10/16/19 17:18 Work up: patient presents to the emergency department with fever, SOB, and diarrhea for the past 4 days. Concerning for influenza B given that the patient had influenza A 2-3 weeks ago. BEcause of the immunosuppressed status with adilia noted in the oropharynx, concerns for sepsis. Laboratory Tests 10/16/19 10/16/19 10/16/19 18:31 18:35 18:35 WBC 5.1 RBC 4.04 Hgb 12.5 Hct 37.8 MCV 93.3 MCH 30.8 MCHC 33.0 RDW 18.0 H Plt Count 186 D MPV 7.8 Absolute Neuts (auto) 3.1 Neutrophils % 61.3 D Neutrophils % (Manual) 61.0 Band Neutrophils % 9.0 Lymphocytes % 21.8 D Lymphocytes % (Manual) 17.0 D Monocytes % 16.0 H D Monocytes % (Manual) 10 D Eosinophils % 0.1 D Eosinophils % (Manual) 0.0 Basophils % 0.8 D Basophils % (Manual) 0.0 Myelocytes % (Man) 1 D Nucleated RBC % 0 Platelet Estimate Adequate PT with INR 12.00 INR 1.02 PTT (Actin FS) 40.4 H VBG pH POC VBG pCO2 POC VBG pO2 VBG HCO3 VBG O2 Sat (Slime) VBG Base Excess Sodium Potassium Chloride Carbon Dioxide Anion Gap BUN Creatinine Est GFR (CKD-EPI)AfAm Est GFR (CKD-EPI)NonAf Random Glucose Lactic Acid Calcium Total Bilirubin AST ALT Alkaline Phosphatase Troponin I < 0.05 Total Protein Albumin Urine Color Urine Appearance Urine pH Ur Specific [place] Urine Protein Urine Glucose (UA) Urine Ketones Urine Blood Urine Nitrite Urine Bilirubin Urine Urobilinogen Ur Leukocyte Esterase Urine WBC (Auto) Urine RBC (Auto) Urine Casts (Auto) U Pathogenic Cast Auto U Epithel Cells (Auto) Urine Bacteria (Auto) Influenza A (Rapid) Influenza B (Rapid) 10/16/19 10/16/19 10/16/19 18:35 18:35 18:35 WBC RBC Hgb Hct MCV MCH MCHC RDW Plt Count MPV Absolute Neuts (auto) Neutrophils % Neutrophils % (Manual) Band Neutrophils % Lymphocytes % Lymphocytes % (Manual) Monocytes % Monocytes % (Manual) Eosinophils % Eosinophils % (Manual) Basophils % Basophils % (Manual) Myelocytes % (Man) Nucleated RBC % Platelet Estimate PT with INR INR PTT (Actin FS) VBG pH 7.38 POC VBG pCO2 41.8 POC VBG pO2 < 49 H VBG HCO3 24.0 VBG O2 Sat (Slime) 63.2 L VBG Base Excess -0.6 Sodium 137 Potassium 3.3 L Chloride 103 Carbon Dioxide 22 Anion Gap 12 BUN 22.3 H Creatinine 1.5 H Est GFR (CKD-EPI)AfAm 42.53 Est GFR (CKD-EPI)NonAf 36.69 Random Glucose 94 Lactic Acid 1.0 Calcium 8.2 L Total Bilirubin 0.4 AST 55 H ALT 67 H Alkaline Phosphatase 114 Troponin I Total Protein 7.4 Albumin 3.4 Urine Color Urine Appearance Urine pH Ur Specific [place] Urine Protein Urine Glucose (UA) Urine Ketones Urine Blood Urine Nitrite Urine Bilirubin Urine Urobilinogen Ur Leukocyte Esterase Urine WBC (Auto) Urine RBC (Auto) Urine Casts (Auto) U Pathogenic Cast Auto U Epithel Cells (Auto) Urine Bacteria (Auto) Influenza A (Rapid) Influenza B (Rapid) 10/16/19 10/16/19 20:45 21:15 WBC RBC Hgb Hct MCV MCH MCHC RDW Plt Count MPV Absolute Neuts (auto) Neutrophils % Neutrophils % (Manual) Band Neutrophils % Lymphocytes % Lymphocytes % (Manual) Monocytes % Monocytes % (Manual) Eosinophils % Eosinophils % (Manual) Basophils % Basophils % (Manual) Myelocytes % (Man) Nucleated RBC % Platelet Estimate PT with INR INR PTT (Actin FS) VBG pH POC VBG pCO2 POC VBG pO2 VBG HCO3 VBG O2 Sat (Slime) VBG Base Excess Sodium Potassium Chloride Carbon Dioxide Anion Gap BUN Creatinine Est GFR (CKD-EPI)AfAm Est GFR (CKD-EPI)NonAf Random Glucose Lactic Acid Calcium Total Bilirubin AST ALT Alkaline Phosphatase Troponin I Total Protein Albumin Urine Color Yellow Urine Appearance Cloudy Urine pH 5.0 Ur Specific [place] 1.020 Urine Protein 1+ H Urine Glucose (UA) Negative Urine Ketones Trace H Urine Blood Negative Urine Nitrite Negative Urine Bilirubin Negative Urine Urobilinogen 0.2 Ur Leukocyte Esterase Negative Urine WBC (Auto) 5 Urine RBC (Auto) 1 Urine Casts (Auto) 28 U Pathogenic Cast Auto None U Epithel Cells (Auto) 9.5 Urine Bacteria (Auto) 35.1 Influenza A (Rapid) Negative Influenza B (Rapid) Positive A Positive influenza B Patient has negative trop CXR within normal limits without acute infiltrate noted negative leukocytosis. noted to have hypokalemia EKG: sinus tachycardia with q waves noted in V1-V2. Patient has no TWI. No ST elevations or depressions Interventions: 30 cc/kg, tylenol, duoneb, dexamethasone, and potassium chloride Patient to be admitted for sepsis secondary to influenza with continued vitals derangement in the setting of immunospressants. Discharge - Discharge Information Problems reviewed: Yes Clinical Impression/Diagnosis: Severe sepsis Disposition: VNS/HOME HEALTH CARE - Follow up/Referral - Patient Discharge Instructions - Post Discharge Activity
[2019-10-16] MEDS ORDERED: SODIUM CHLORIDE 2,722 ML IV ONE (18:24)
[2019-10-16] MEDS ORDERED: ALBUTEROL SO4 2.5/IPRATROPIUM 0.5 INH SOL 3 ML VIAL.NEB. NEB ONE ×4 (18:28→19:51)
[2019-10-16] MEDS ORDERED: ACETAMINOPHEN 1000 MG/100 ML VIAL (NON FORMULARY) IVPB ONE (18:28)
[2019-10-16] MEDS ORDERED: ACETAMINOPHEN INJECTION 100 ML IVPB ONE (18:48)
[2019-10-16 18:58] LABS: BASO % 0.8 % (0-2.0); EOS % 0.1 % (0-4.5); HEMATOCRIT 37.8 % (32.4-45.2); HEMOGLOBIN 12.5 GM/dL (10.7-15.3); LYMPH % 21.8 % (8-40); MCH 30.8 pg (25.7-33.7); MEAN CELL VOLUME 93.3 fl (80-96); MEAN PLT VOLUME 7.8 fl (7.5-11.1); NEUT % 61.3 % (42.8-82.8); PLATELET COUNT 186 K/MM3 (134-434); RBC 4.04 M/mm3 (3.60-5.2); WHITE BLOOD COUNT 5.1 K/mm3 (4.0-10.0)
[2019-10-16 19:00] LABS: VENOUS PC02 41.8 mmHg (38-52); VENOUS PH 7.38 (7.31-7.41)
[2019-10-16 19:02] LABS: VENOUS PO2 < 49 mmHg (28-48)
[2019-10-16 19:05] LABS: INR 1.02 (0.83-1.09)
[2019-10-16 19:07] LABS: ACTIVATED PTT 40.4 SECONDS (25.2-36.5)
[2019-10-16 19:25] LABS: ALBUMIN 3.4 g/dl (3.4-5.0); BILIRUBIN,TOTAL 0.4 mg/dL (0.2-1); BLOOD UREA NITROGEN 22.3 mg/dL (7-18); CALCIUM 8.2 mg/dL (8.5-10.1); CREATININE 1.5 mg/dL (0.55-1.3); POTASSIUM 3.3 mmol/L (3.5-5.1); TOT PROT 7.4 g/dl (6.4-8.2)
[2019-10-16 19:36] LABS: PLATELET ESTIMATE ADEQUATE
--- NOTE | 2019-10-16 19:38 | PDOC ---
Attending Attestation - Resident Resident Name: QuintenOrtiz - ED Attending Attestation I have performed the following: I have examined & evaluated the patient, The case was reviewed & discussed with the resident, I agree w/resident's findings & plan - HPI HPI: 10/16/19 19:43 Pt is HIV+ and she has a cough and cold and diarrhea that has been ongoing. She feels unwell. She was diagnosed with flu a couple weeks ago. Still ill. Cant seem to shake her illness. 10 episodes of diarrhea. She is A+Ox3 and she feels weakness that is generalized - Physicial Exam PE: 10/17/19 01:07 Agree with resident exam Pt has coarse breath sounds bilat. Pt is afebrile Heart RRR abd +gassy no flank pain no rashes - Medical Decision Making 10/17/19 00:44 Pt is Flu B positive. Pt has normal CBC and chem shows BUN/Cr are slightly elevated. K+ is a bit low. Pt is getting hydration and banana bag. She will be admitted to the hospitalists for IV rx and ID consult and for further evaluation. 10/17/19 01:09 Pt admitted; orders are in from the admit team Pt is stable and feeling well.
[2019-10-16] MEDS ORDERED: FOLIC ACID INJECTION - 1 MG, THIAMINE HCL 100 MG, MULTIVIT INJECTION ADULT 10 ML in SOD... IVPB ONE (19:39)
[2019-10-16] MEDS ORDERED: DEXAMETHASONE SOD PHOSPHATE 10 MG/1 ML VIAL IVPUSH ONE (19:46)
[2019-10-16] MEDS ORDERED: DEXAMETHASONE SOD PHOSPHATE 10 MG/1 ML VIAL ONE (19:51)
[2019-10-16] MEDS ORDERED: POTASSIUM CHLORIDE ORAL LIQUID 20 MEQ/15 ML PO ONE (20:56)
[2019-10-16 21:39] LABS: EPI CELLS 9.5 /HPF (0-5/HPF); HYALINE CASTS 28 /lpf (0-8); URINE APPEARANCE CLOUDY; URINE BACTERIA 35.1 /hpf (NEGATIVE); URINE BILIRUBIN NEGATIVE (NEGATIVE); URINE COLOR YELLOW; URINE GLUCOSE (UA) NEGATIVE (NEGATIVE); URINE KETONE TRACE (NEGATIVE); URINE LEUK ESTERASE NEGATIVE (NEGATIVE); URINE NITRITE NEGATIVE (NEGATIVE); URINE PROTEIN 1+ (NEGATIVE); URINE RBC 1 /hpf (0-4); URINE UROBILINOGEN 0.2 mg/dL (0.2-1.0); URINE WBC 5 /hpf (0-5)
[2019-10-16] MEDS ORDERED: POTASSIUM CHLORIDE ORAL LIQUID 20 MEQ/15 ML ONE (21:54)
[2019-10-16] MEDS ORDERED: ALBUTEROL SO4 0.083% IH SOL 2.5 MG/3 ML VIAL.NEB. NEB PRN ×2 (22:52→22:55)
[2019-10-16] MEDS ORDERED: ALBUTEROL SO4 2.5/IPRATROPIUM 0.5 INH SOL 3 ML VIAL.NEB. NEB PRN (22:55)
[2019-10-16] MEDS ORDERED: AZITHROMYCIN IVPB 500 MG/250 ML BAG IVPB ONE (23:02)
[2019-10-16] MEDS ORDERED: OSELTAMIVIR PHOSPHATE 30 MG CAPSULE PO ONE (23:03)
--- NOTE | 2019-10-17 00:13 | HP ---
CHIEF COMPLAINT: shortness of breath PCP: Dr. Ivey HISTORY OF PRESENT ILLNESS: Uzma Monroe is a 64 year old female with a past medical history of HIV ( CD4 104, viral load 70), HTN, HLD, COPD, GERD presents with a 3 day history of generalized weakness. Patient notes that since she has felt generalized weakness, shortness of breath, dyspnea on exertion, nausea, diarrhea (2 episodes daily), chills. She denies sick contacts and notes she is hyperaware of her surroundings when she leaves her house. States that she has a cough that is non-productive but feels like she has phlegm building up in her chest. She notes she was feelings well prior to that and had recently completed a course of prednisone for a previous COPD exacerbation. She denies chest pain, lightheadedness, dizziness, headaches, fevers, focal weakness, numbness, tingling, dysuria, hematuria, frequency, urgency, melena, hematochezia. ER course was notable for: (1) Tmax 100.4, HR 110-127, RR 24, O2 sat 94 on RA (2) K 3.3, CRE 1.5 (baseline 0.9-1.2) (3) Flu B+ (4) CXR with no acute pathology Recent Travel: denies PAST MEDICAL HISTORY: as above PAST SURGICAL HISTORY: tonsillectomy, cyst removal of breast Social History: Smoking: several cigarettes daily Alcohol: denies Drugs: denies Allergies Penicillins Allergy (Severe, Verified 10/16/19 17:22) Swelling MAYONAISE Adverse Reaction (Uncoded 10/16/19 17:22) HOME MEDICATIONS: Home Medications Medication Instructions Recorded Lactobacillus Acidophilus [Bacid -] 1 tab PO DAILY 28 Days #28 tab 10/04/18 Albuterol Sulfate Inhaler - 1 - 2 inh PO Q4H PRN #1 inhaler 04/02/19 [Ventolin HFA Inhaler -] Albuterol 0.083% Nebulizer Olivia 1 neb NEB Q6H PRN #120 vial 08/05/19 [Ventolin 0.083% Nebulizer Soln -] Budesonide/Formeterol Fumarate 2 inh PO BID #1 cannister 08/09/19 [SYMBICORT 80/4.5mcg -] Levalbuterol HCl [Xopenex] 0.63 mg IH QID #4 box 08/09/19 Levalbuterol Tartrate 15 gm IH QID #1 inhaler 08/12/19 [Levalbuterol Tartrate Hfa] Tiotropium Oriental [Spiriva 4 gm IH DAILY #1 mist.inhal 08/18/19 Respimat] Valacyclovir HCl [Valtrex -] 1,000 mg PO BID #28 tablet 08/23/19 Abacavir Sulfate/Lamivudine 1 each PO DAILY #30 tablet 09/06/19 [Abacavir-Lamivudine 600-300 mg] Darunavir Ethanolate [Prezista -] 800 mg PO DAILY #30 tablet 09/06/19 Ritonavir 100 mg PO DAILY #30 tablet 09/06/19 Ergocalciferol (Vitamin D2) 50,000 unit PO WEEKLY #4 capsule 09/29/19 [Vitamin D2] Mirtazapine 15 mg PO HS #30 tablet 09/29/19 Vitamin B Complex [B Complex] 1 each PO DAILY #30 tablet 09/29/19 Zolpidem Tartrate [Ambien] 5 mg PO HS PRN #15 tablet MDD 1 09/29/19 Diclofenac Sodium [Voltaren] 100 gm TP BID #1 gel..gram. 10/06/19 Gabapentin 300 mg PO BID #60 capsule 10/06/19 Losartan Potassium [Cozaar -] 25 mg PO DAILY #30 tablet 10/06/19 Methocarbamol [Robaxin -] 500 mg PO BID PRN #15 tablet 10/13/19 Oxycodone HCl/Acetaminophen 1 each PO TID PRN #20 tablet MDD 3 10/13/19 [Endocet 5-325 Tablet] REVIEW OF SYSTEMS CONSTITUTIONAL: chills, generalized weakness Absent: fever, diaphoresis, malaise, loss of appetite, weight change HEENT: Absent: rhinorrhea, nasal congestion, throat pain, throat swelling, difficulty swallowing, visual changes CARDIOVASCULAR: Absent: chest pain, syncope, palpitations, irregular heart rate, lightheadedness , peripheral edema RESPIRATORY: cough, shortness of breath, dyspnea with exertion Absent: orthopnea, wheezing, stridor, hemoptysis GASTROINTESTINAL: nausea, diarrhea Absent: abdominal pain, abdominal distension, vomiting, constipation, melena, hematochezia GENITOURINARY: Absent: dysuria, frequency, urgency, hesitancy, hematuria, flank pain MUSCULOSKELETAL: Absent: myalgia, arthralgia, joint swelling, back pain, neck pain SKIN: Absent: rash, itching, pallor HEMATOLOGIC/IMMUNOLOGIC: Absent: easy bleeding, easy bruising, lymphadenopathy, frequent infections ENDOCRINE: Absent: unexplained weight gain, unexplained weight loss, heat intolerance, cold intolerance NEUROLOGIC: Absent: headache, focal weakness or paresthesias, dizziness, unsteady gait, seizure, mental status changes PSYCHIATRIC: Absent: anxiety, depression, suicidal or homicidal ideation, hallucinations. PHYSICAL EXAMINATION Vital Signs - 24 hr 10/16/19 10/16/19 10/16/19 17:18 17:59 18:30 Temperature 98.6 F 100.4 F H Pulse Rate 136 H 130 H Pulse Rate [ 127 H Left Radial] Respiratory 20 24 H 24 H Rate Blood Pressure 118/56 L 117/77 Blood Pressure [Left Arm] O2 Sat by Pulse 95 92 L 93 L Oximetry (%) 10/16/19 10/16/19 19:10 21:57 Temperature 98.0 F Pulse Rate Pulse Rate [ 125 H 110 H Left Radial] Respiratory 24 H 20 Rate Blood Pressure Blood Pressure 116/75 [Left Arm] O2 Sat by Pulse 92 L 94 L Oximetry (%) GENERAL: Awake, alert, and fully oriented, in mild acute distress. HEAD: Normal with no signs of trauma. EYES: Pupils equal, round and reactive to light, extraocular movements intact, sclera anicteric, conjunctiva clear. EARS, NOSE, THROAT: Oropharynx clear without exudates. Dry mucous membranes. NECK: Normal range of motion, supple without lymphadenopathy, JVD. Noted fat pads above clavicles. LUNGS: Profound expiratory wheezes. No crackles noted. HEART: Tachycardic rate and regular rhythm, normal S1 and S2 without murmur, rub. ABDOMEN: Soft, nontender, not distended, normoactive bowel sounds, no guarding, no rebound, no masses. MUSCULOSKELETAL: Normal range of motion at all joints. No bony deformities or tenderness. UPPER EXTREMITIES: 2+ pulses, warm, well-perfused. No cyanosis. No clubbing. No peripheral edema. LOWER EXTREMITIES: 2+ pulses, warm, well-perfused. No calf tenderness. No peripheral edema. NEUROLOGICAL: Cranial nerves II-XII intact. 5/5 muscles strength bilaterally upper and lower extremities. PSYCHIATRIC: Cooperative. Good eye contact. Appropriate mood and affect. SKIN: Warm, dry, normal turgor, no rashes or lesions noted, normal capillary refill. Laboratory Results - last 24 hr 10/16/19 10/16/19 10/16/19 18:31 18:35 18:35 WBC 5.1 RBC 4.04 Hgb 12.5 Hct 37.8 MCV 93.3 MCH 30.8 MCHC 33.0 RDW 18.0 H Plt Count 186 D MPV 7.8 Absolute Neuts (auto) 3.1 Neutrophils % 61.3 D Neutrophils % (Manual) 61.0 Band Neutrophils % 9.0 Lymphocytes % 21.8 D Lymphocytes % (Manual) 17.0 D Monocytes % 16.0 H D Monocytes % (Manual) 10 D Eosinophils % 0.1 D Eosinophils % (Manual) 0.0 Basophils % 0.8 D Basophils % (Manual) 0.0 Myelocytes % (Man) 1 D Nucleated RBC % 0 Platelet Estimate Adequate PT with INR 12.00 INR 1.02 PTT (Actin FS) 40.4 H VBG pH POC VBG pCO2 POC VBG pO2 VBG HCO3 VBG O2 Sat (Slime) VBG Base Excess Sodium Potassium Chloride Carbon Dioxide Anion Gap BUN Creatinine Est GFR (CKD-EPI)AfAm Est GFR (CKD-EPI)NonAf Random Glucose Lactic Acid Calcium Total Bilirubin AST ALT Alkaline Phosphatase Troponin I < 0.05 Total Protein Albumin Urine Color Urine Appearance Urine pH Ur Specific [place] Urine Protein Urine Glucose (UA) Urine Ketones Urine Blood Urine Nitrite Urine Bilirubin Urine Urobilinogen Ur Leukocyte Esterase Urine WBC (Auto) Urine RBC (Auto) Urine Casts (Auto) U Pathogenic Cast Auto U Epithel Cells (Auto) Urine Bacteria (Auto) Influenza A (Rapid) Influenza B (Rapid) 10/16/19 10/16/19 10/16/19 18:35 18:35 18:35 WBC RBC Hgb Hct MCV MCH MCHC RDW Plt Count MPV Absolute Neuts (auto) Neutrophils % Neutrophils % (Manual) Band Neutrophils % Lymphocytes % Lymphocytes % (Manual) Monocytes % Monocytes % (Manual) Eosinophils % Eosinophils % (Manual) Basophils % Basophils % (Manual) Myelocytes % (Man) Nucleated RBC % Platelet Estimate PT with INR INR PTT (Actin FS) VBG pH 7.38 POC VBG pCO2 41.8 POC VBG pO2 < 49 H VBG HCO3 24.0 VBG O2 Sat (Slime) 63.2 L VBG Base Excess -0.6 Sodium 137 Potassium 3.3 L Chloride 103 Carbon Dioxide 22 Anion Gap 12 BUN 22.3 H Creatinine 1.5 H Est GFR (CKD-EPI)AfAm 42.53 Est GFR (CKD-EPI)NonAf 36.69 Random Glucose 94 Lactic Acid 1.0 Calcium 8.2 L Total Bilirubin 0.4 AST 55 H ALT 67 H Alkaline Phosphatase 114 Troponin I Total Protein 7.4 Albumin 3.4 Urine Color Urine Appearance Urine pH Ur Specific [place] Urine Protein Urine Glucose (UA) Urine Ketones Urine Blood Urine Nitrite Urine Bilirubin Urine Urobilinogen Ur Leukocyte Esterase Urine WBC (Auto) Urine RBC (Auto) Urine Casts (Auto) U Pathogenic Cast Auto U Epithel Cells (Auto) Urine Bacteria (Auto) Influenza A (Rapid) Influenza B (Rapid) 10/16/19 10/16/19 20:45 21:15 WBC RBC Hgb Hct MCV MCH MCHC RDW Plt Count MPV Absolute Neuts (auto) Neutrophils % Neutrophils % (Manual) Band Neutrophils % Lymphocytes % Lymphocytes % (Manual) Monocytes % Monocytes % (Manual) Eosinophils % Eosinophils % (Manual) Basophils % Basophils % (Manual) Myelocytes % (Man) Nucleated RBC % Platelet Estimate PT with INR INR PTT (Actin FS) VBG pH POC VBG pCO2 POC VBG pO2 VBG HCO3 VBG O2 Sat (Slime) VBG Base Excess Sodium Potassium Chloride Carbon Dioxide Anion Gap BUN Creatinine Est GFR (CKD-EPI)AfAm Est GFR (CKD-EPI)NonAf Random Glucose Lactic Acid Calcium Total Bilirubin AST ALT Alkaline Phosphatase Troponin I Total Protein Albumin Urine Color Yellow Urine Appearance Cloudy Urine pH 5.0 Ur Specific [place] 1.020 Urine Protein 1+ H Urine Glucose (UA) Negative Urine Ketones Trace H Urine Blood Negative Urine Nitrite Negative Urine Bilirubin Negative Urine Urobilinogen 0.2 Ur Leukocyte Esterase Negative Urine WBC (Auto) 5 Urine RBC (Auto) 1 Urine Casts (Auto) 28 U Pathogenic Cast Auto None U Epithel Cells (Auto) 9.5 Urine Bacteria (Auto) 35.1 Influenza A (Rapid) Negative Influenza B (Rapid) Positive A EKG--> sinus tachycardia, age indeterminate septal infarct, QTc 459 ASSESSMENT/PLAN: Uzma Monroe is a 64 year old female with a past medical history of HIV ( CD4 104, viral load 70), HTN, HLD, COPD, GERD admitted for COPD exacerbation secondary to influenza B. COPD Exacerbation to Influenza B - Flu B + - isolation precautions, droplet precautions - duoneb scheduled and albuterol prn - Solumedrol 40mg q8h, given Decadron in ED - Spiriva daily - azithromycin 500mg once and continue azithromycin 250mg daily - Tamiflu 30mg, reduced for renal function - protonix while on steroids - pulmonary consulted - VBG with no acute retention HIV - continue home medications - Bactrim DS MWF - ID consulted FELIZ - CRE 1.5 (baseline 0.9-1.2) - urine lytes and CRE to calculate FeNA HTN - continue home losartan GERD - on Protonix DVT PPx - heparin 5000 units subq tid FEN - NS 2.5L bolus due to septic vitals - continue to monitor electrolytes and replete as necessary, hypokalemia noted and repleted - Sodium controlled diet Dispo - admit to Med-surg Family Medical History Family History: Denies Visit type - Emergency Visit Emergency Visit: Yes ED Registration Date: 10/16/19 Care time: The patient presented to the Emergency Department on the above date and was hospitalized for further evaluation of their emergent condition. - New Patient This patient is new to me today: Yes Date on this admission: 10/17/19 - Critical Care Critical Care patient: No
[2019-10-17] MEDS ORDERED: AZITHROMYCIN IVPB 500 MG/250 ML BAG IVPB ONE ×2 (01:24→10:21)
[2019-10-17] MEDS ORDERED: HEPARIN NA (PORCINE) 5,000 UNITS/ML 1ML VIAL ONE (06:18)
[2019-10-17] MEDS: HEPARIN NA (PORCINE) 5,000 UNITS/ML 1ML VIAL SQ SCH ×3 (06:19→21:55)
[2019-10-17 08:00] LABS: BASO % 0.3 % (0-2.0); HEMOGLOBIN 11.1 GM/dL (10.7-15.3); LYMPH % 13.6 % (8-40); MCH 30.6 pg (25.7-33.7); MCHC 32.8 g/dl (32.0-36.0); MEAN CELL VOLUME 93.2 fl (80-96); MEAN PLT VOLUME 8.1 fl (7.5-11.1); MONO % 5.3 % (3.8-10.2); NEUT % 80.8 % (42.8-82.8); PLATELET COUNT 176 K/MM3 (134-434); RBC 3.64 M/mm3 (3.60-5.2); WHITE BLOOD COUNT 3.3 K/mm3 (4.0-10.0)
[2019-10-17] MEDS: methylPREDNISolone NA SUCC 40 MG/1 ML VIAL IVPUSH SCH ×3 (08:03→23:28)
[2019-10-17 08:04] LABS: BLOOD UREA NITROGEN 18.1 mg/dL (7-18); CALCIUM 8.1 mg/dL (8.5-10.1); CREATININE 0.9 mg/dL (0.55-1.3); MAGNESIUM 2.1 mg/dL (1.8-2.4); POTASSIUM 4.2 mmol/L (3.5-5.1)
[2019-10-17] MEDS ORDERED: methylPREDNISolone NA SUCC 40 MG/1 ML VIAL ONE (08:04)
--- NOTE | 2019-10-17 09:28 | PN ---
Physical Exam: SUBJECTIVE: Patient seen and examined. She says she is feeling a little better. OBJECTIVE: Vital Signs Period Temp Pulse Resp BP Sys/Inman Pulse Ox Last 24 Hr 98.0 F-100.4 F 94-136 18-24 116-118/56-90 91-95 GENERAL: The patient is awake, alert, and fully oriented, in mild respiratory distress. LUNGS: Breath sounds equal, few wheezes bilaterally, no crackles, no accessory muscle use. HEART: Regular rhythm, tachycardic, S1, S2 without murmur, rub or gallop. ABDOMEN: Soft, nontender, nondistended, normoactive bowel sounds, no guarding, no rebound, no hepatosplenomegaly, no masses. EXTREMITIES: 2+ pulses, warm, well-perfused, no edema. Laboratory Results - last 24 hr 10/16/19 10/16/19 10/16/19 18:31 18:35 18:35 WBC 5.1 RBC 4.04 Hgb 12.5 Hct 37.8 MCV 93.3 MCH 30.8 MCHC 33.0 RDW 18.0 H Plt Count 186 D MPV 7.8 Absolute Neuts (auto) 3.1 Neutrophils % 61.3 D Neutrophils % (Manual) 61.0 Band Neutrophils % 9.0 Lymphocytes % 21.8 D Lymphocytes % (Manual) 17.0 D Monocytes % 16.0 H D Monocytes % (Manual) 10 D Eosinophils % 0.1 D Eosinophils % (Manual) 0.0 Basophils % 0.8 D Basophils % (Manual) 0.0 Myelocytes % (Man) 1 D Nucleated RBC % 0 Platelet Estimate Adequate PT with INR 12.00 INR 1.02 PTT (Actin FS) 40.4 H VBG pH POC VBG pCO2 POC VBG pO2 VBG HCO3 VBG O2 Sat (Slime) VBG Base Excess Sodium Potassium Chloride Carbon Dioxide Anion Gap BUN Creatinine Est GFR (CKD-EPI)AfAm Est GFR (CKD-EPI)NonAf Random Glucose Lactic Acid Calcium Magnesium Total Bilirubin AST ALT Alkaline Phosphatase Troponin I < 0.05 Total Protein Albumin Urine Color Urine Appearance Urine pH Ur Specific [place] Urine Protein Urine Glucose (UA) Urine Ketones Urine Blood Urine Nitrite Urine Bilirubin Urine Urobilinogen Ur Leukocyte Esterase Urine WBC (Auto) Urine RBC (Auto) Urine Casts (Auto) U Pathogenic Cast Auto U Epithel Cells (Auto) Urine Bacteria (Auto) Ur Random Creatinine Ur Random Sodium Ur Random Potassium Ur Random Chloride Influenza A (Rapid) Influenza B (Rapid) 10/16/19 10/16/19 10/16/19 18:35 18:35 18:35 WBC RBC Hgb Hct MCV MCH MCHC RDW Plt Count MPV Absolute Neuts (auto) Neutrophils % Neutrophils % (Manual) Band Neutrophils % Lymphocytes % Lymphocytes % (Manual) Monocytes % Monocytes % (Manual) Eosinophils % Eosinophils % (Manual) Basophils % Basophils % (Manual) Myelocytes % (Man) Nucleated RBC % Platelet Estimate PT with INR INR PTT (Actin FS) VBG pH 7.38 POC VBG pCO2 41.8 POC VBG pO2 < 49 H VBG HCO3 24.0 VBG O2 Sat (Slime) 63.2 L VBG Base Excess -0.6 Sodium 137 Potassium 3.3 L Chloride 103 Carbon Dioxide 22 Anion Gap 12 BUN 22.3 H Creatinine 1.5 H Est GFR (CKD-EPI)AfAm 42.53 Est GFR (CKD-EPI)NonAf 36.69 Random Glucose 94 Lactic Acid 1.0 Calcium 8.2 L Magnesium Total Bilirubin 0.4 AST 55 H ALT 67 H Alkaline Phosphatase 114 Troponin I Total Protein 7.4 Albumin 3.4 Urine Color Urine Appearance Urine pH Ur Specific [place] Urine Protein Urine Glucose (UA) Urine Ketones Urine Blood Urine Nitrite Urine Bilirubin Urine Urobilinogen Ur Leukocyte Esterase Urine WBC (Auto) Urine RBC (Auto) Urine Casts (Auto) U Pathogenic Cast Auto U Epithel Cells (Auto) Urine Bacteria (Auto) Ur Random Creatinine Ur Random Sodium Ur Random Potassium Ur Random Chloride Influenza A (Rapid) Influenza B (Rapid) 10/16/19 10/16/19 10/17/19 20:45 21:15 01:20 WBC RBC Hgb Hct MCV MCH MCHC RDW Plt Count MPV Absolute Neuts (auto) Neutrophils % Neutrophils % (Manual) Band Neutrophils % Lymphocytes % Lymphocytes % (Manual) Monocytes % Monocytes % (Manual) Eosinophils % Eosinophils % (Manual) Basophils % Basophils % (Manual) Myelocytes % (Man) Nucleated RBC % Platelet Estimate PT with INR INR PTT (Actin FS) VBG pH POC VBG pCO2 POC VBG pO2 VBG HCO3 VBG O2 Sat (Slime) VBG Base Excess Sodium Potassium Chloride Carbon Dioxide Anion Gap BUN Creatinine Est GFR (CKD-EPI)AfAm Est GFR (CKD-EPI)NonAf Random Glucose Lactic Acid Calcium Magnesium Total Bilirubin AST ALT Alkaline Phosphatase Troponin I Total Protein Albumin Urine Color Yellow Urine Appearance Cloudy Urine pH 5.0 Ur Specific [place] 1.020 Urine Protein 1+ H Urine Glucose (UA) Negative Urine Ketones Trace H Urine Blood Negative Urine Nitrite Negative Urine Bilirubin Negative Urine Urobilinogen 0.2 Ur Leukocyte Esterase Negative Urine WBC (Auto) 5 Urine RBC (Auto) 1 Urine Casts (Auto) 28 U Pathogenic Cast Auto None U Epithel Cells (Auto) 9.5 Urine Bacteria (Auto) 35.1 Ur Random Creatinine Ur Random Sodium 79 Ur Random Potassium 22.0 L Ur Random Chloride 61 L Influenza A (Rapid) Negative Influenza B (Rapid) Positive A 10/17/19 10/17/19 10/17/19 01:20 06:10 06:10 WBC 3.3 L RBC 3.64 Hgb 11.1 Hct 34.0 MCV 93.2 MCH 30.6 MCHC 32.8 RDW 18.0 H Plt Count 176 MPV 8.1 Absolute Neuts (auto) 2.7 Neutrophils % 80.8 D Neutrophils % (Manual) Band Neutrophils % Lymphocytes % 13.6 D Lymphocytes % (Manual) Monocytes % 5.3 Monocytes % (Manual) Eosinophils % 0.0 D Eosinophils % (Manual) Basophils % 0.3 Basophils % (Manual) Myelocytes % (Man) Nucleated RBC % 0 Platelet Estimate PT with INR INR PTT (Actin FS) VBG pH POC VBG pCO2 POC VBG pO2 VBG HCO3 VBG O2 Sat (Slime) VBG Base Excess Sodium 137 Potassium 4.2 Chloride 108 H Carbon Dioxide 20 L Anion Gap 9 BUN 18.1 H Creatinine 0.9 Est GFR (CKD-EPI)AfAm 78.87 Est GFR (CKD-EPI)NonAf 68.05 Random Glucose 198 H Lactic Acid Calcium 8.1 L Magnesium 2.1 Total Bilirubin AST ALT Alkaline Phosphatase Troponin I Total Protein Albumin Urine Color Urine Appearance Urine pH Ur Specific [place] Urine Protein Urine Glucose (UA) Urine Ketones Urine Blood Urine Nitrite Urine Bilirubin Urine Urobilinogen Ur Leukocyte Esterase Urine WBC (Auto) Urine RBC (Auto) Urine Casts (Auto) U Pathogenic Cast Auto U Epithel Cells (Auto) Urine Bacteria (Auto) Ur Random Creatinine 91.0 Ur Random Sodium Ur Random Potassium Ur Random Chloride Influenza A (Rapid) Influenza B (Rapid) Active Medications Generic Name Dose Route Start Last Admin Trade Name Freq PRN Reason Stop Dose Admin Abacavir Sulfate 600 mg 10/17/19 10:00 Ziagen - PO DAILY [facility] Albuterol Sulfate 1 amp 10/16/19 22:55 Ventolin 0.083% Nebulizer Soln - NEB Q2H PRN WHEEZING Albuterol/Ipratropium 1 amp 10/16/19 22:55 Duoneb - NEB Q4H PRN SHORTNESS OF BREATH Darunavir 800 mg 10/17/19 10:00 Prezista - PO DAILY [facility] Gabapentin 300 mg 10/17/19 10:00 Neurontin - PO BID [facility] Heparin Sodium (Porcine) 5,000 unit 10/17/19 06:00 10/17/19 06:19 Heparin - SQ 5,000 unit TID [facility] Administration Azithromycin 250 mg/ Dextrose 250 mls @ 250 mls/hr 10/17/19 10:00 IVPB DAILY [facility] Lactobacillus Acidophilus 1 tab 10/17/19 10:00 Bacid - PO DAILY [facility] Lamivudine 300 mg 10/17/19 10:00 Epivir - PO DAILY [facility] Losartan Potassium 25 mg 10/17/19 10:00 Cozaar - PO DAILY [facility] Methylprednisolone Sodium Succinate 40 mg 10/17/19 08:00 10/17/19 08:03 Solu-Medrol - IVPUSH 40 mg Q8H SHERI Administration Mirtazapine 15 mg 10/17/19 22:00 Remeron - PO HS [facility] Multivitamins 1 each 10/17/19 10:00 Total B With C - PO DAILY [facility] Oseltamivir Phosphate 30 mg 10/17/19 10:00 Tamiflu - PO 10/22/19 09:59 BID [facility] Pantoprazole Sodium 40 mg 10/17/19 10:00 Protonix - PO DAILY [facility] Ritonavir 100 mg 10/17/19 10:00 Norvir - PO DAILY [facility] Tiotropium [place] 2 puff 10/17/19 10:00 Spiriva Respimat IH DAILY [facility] Trimethoprim/Sulfamethoxazole 1 each 10/17/19 10:00 Bactrim Ds - PO MoWeFr@1000 [facility] Valacyclovir HCl 1,000 mg 10/17/19 10:00 Valtrex - PO BID [facility] Zolpidem Tartrate 5 mg 10/16/19 22:52 Ambien - PO HS PRN INSOMNIA ASSESSMENT/PLAN: This is a 64 year old woman with a history of HTN, hyperlipidemia, COPD, HIV, HSV, GERD who presented to the ED with weakness, chills, SOB, nausea, and diarrhea. 1. Acute exacerbation of COPD secondary to influenza B - Continue SoluMedrol, DuoNeb, Tamiflu - Hold Spiriva - Pulmonary consult 2. Acute kidney injury - Improved 3. Hypokalemia - Improved 4. HTN - Continue Cozaar 5. Hyperlipidemia 6. GERD - Continue Protonix 7. HIV - Continue Norvir, Epivir, Ziagen, Prezista 8. HSV - Continue Valtrex Visit type - Emergency Visit Emergency Visit: Yes ED Registration Date: 10/16/19 Care time: The patient presented to the Emergency Department on the above date and was hospitalized for further evaluation of their emergent condition. - New Patient This patient is new to me today: Yes Date on this admission: 10/17/19 - Critical Care Critical Care patient: No - Discharge Referral Referred to [facility] Med P.C.: No
--- NOTE | 2019-10-17 09:35 | EKG ---
Test Reason : Blood Pressure : / mmHG Vent. Rate : 127 BPM Atrial Rate : 127 BPM P-R Int : 144 ms QRS Dur : 072 ms QT Int : 316 ms P-R-T Axes : 061 062 065 degrees QTc Int : 459 ms SINUS TACHYCARDIA POSSIBLE LEFT ATRIAL ENLARGEMENT Consider SEPTAL INFARCT , AGE UNDETERMINED ABNORMAL ECG WHEN COMPARED WITH ECG OF 22-SEP-2019 09:29, SEPTAL INFARCT IS NOW PRESENT Confirmed by Hoang Nance ([id number]) on 10/17/2019 9:34:49 AM Referred By: Confirmed By:Hoang Nance
[2019-10-17] MEDS ORDERED: AZITHROMYCIN IVPB 250 MG in DEXTROSE 5%-WATER - 250 ML IVPB SCH (10:00)
[2019-10-17] MEDS ORDERED: PATIENT'S OWN MEDICATION (NON-FORMULARY) (Abacavir Sulfate/Lamivudine [Abacavir-Lamivudine PO SCH (10:00)
[2019-10-17] MEDS ORDERED: TIOTROPIUM BROMIDE 2.5 MCG (SPIRIVA) RESPIMAT INHALER IH SCH (10:00)
[2019-10-17] MEDS ORDERED: OSELTAMIVIR PHOSPHATE 30 MG CAPSULE PO SCH (10:00)
[2019-10-17] MEDS: RITONAVIR 100 MG TABLET PO SCH (10:18)
[2019-10-17] MEDS: LOSARTAN POTASSIUM 25 MG TABLET PO SCH (10:18)
[2019-10-17] MEDS: LACTOBACILLUS ACIDOPHILUS 1 TABLET PO SCH (10:18)
[2019-10-17] MEDS: PANTOPRAZOLE 40 MG TABLET PO SCH (10:18)
[2019-10-17] MEDS: GABAPENTIN 300 MG CAPSULE PO SCH ×2 (10:18→21:54)
[2019-10-17] MEDS: SULFAMETHOXAZOLE/TRIMETHOPRIM 800MG/160MG D.S. TABLET PO SCH (10:18)
[2019-10-17] MEDS: DARUNAVIR ETHANOLATE 800 MG TAB PO SCH (10:18)
[2019-10-17] MEDS: ABACAVIR SULFATE 300 MG TABLET PO SCH (10:19)
[2019-10-17] MEDS: VITAMIN B COMPLEX W/C COMBO TABLET (FP) PO SCH (10:19)
[2019-10-17] MEDS: valACYclovir HCL 500 MG TABLET (FP) PO SCH ×2 (10:19→21:54)
[2019-10-17] MEDS ORDERED: ALBUTEROL SO4 0.083% IH SOL 2.5 MG/3 ML VIAL.NEB. NEB PRN (10:41)
--- NOTE | 2019-10-17 10:41 | PN ---
Progress Note (short form) - Note Progress Note: ID consult dictated 64 yo female with HIV well known to me I just saw her after discharge from recent admission 09/09 to 09/22 for influenza and asthma- her admission was prolonged due to persist wheezing and she was discharged on a prolonged prednisone taper she was doing well, I saw her in the halls of clinic on Thursday when she came to see pain management she was well on Thursday- went to her grandson's school for the morning in the after noon she took her new meds- for muscle spasm and back pain- she became weak and had chills she could not get out of bed all weekend except to use the bathroom - nonbloody diarrhea profuse and large amounts no change in her respiratory status in ED she is +influenza B Influenza B tamiflu droplet isolation ?copd exacerbation- reports resp status stable- ?need for steroids pulmonary to see feliz due to influenza and diarrhea- improved diarrhea- may be due to influenza but has low tcells so would check stools studies and cdiff (recent antbiotics) 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
[2019-10-17] MEDS: ALBUTEROL SO4 2.5/IPRATROPIUM 0.5 INH SOL 3 ML VIAL.NEB. NEB SCH ×3 (11:59→23:55)
--- NOTE | 2019-10-17 15:17 | CON.PULM ---
Consult Consult Specialty:: PULM/CCM Referred by:: Hospitalist Reason for Consultation:: SOB - History of Present Illness Chief Complaint: SOB History of Present Illness: 64 F, well known to me. COPD due to smoking history. Admitted recently due to Influenza A and AE of COPD. Readmitted due to progressive SOB and wheezing. Found to have Influenza B. No travel history. No specific sick contact. No hemoptysis or night sweats. CXR: No acute process - History Source History Provided By: Patient Limitations to Obtaining History: No Limitations - Past Medical History HAM TRIMMER: Yes: Peripheral Neuropathy. No: Alzheimer's, CVA, Dementia, Migraine, Multiple Sclerosis, Parkinson's, Seizure, Syncope, TIA, Vertigo, Other Pulmonary: Yes: Bronchitis, COPD, O2 Dependent, Pneumonia. No: Asthma, Cancer, Previously Intubated, Pulmonary Embolus, Pulmonary Fibrosis, Sleep Apnea Gastrointestinal: Yes: Other ([place] Esophagitis from EGD 06/19/14). No: Ascites, Cancer, Constipation, Crohn's Disease, Diverticulitis, Diverticulosis, Esophageal Varices, Gastritis, GERD, GI Bleed, Hemorrhoids, Hiatal Hernia, Inflamatory Bowel Disease, Irritable Bowel Disease, Pancreatitis, Peptic Ulcer Disease, Ulcerative Colitis ...LMP: 01/04/15 Infectious Disease: Yes: AIDS, HIV, STD's Psych: Yes: Other (anorexia) Additional Medical History: Neuropathy of the feet. anorexia. breast cyst removed. ovarian cyst removed. c/s for twins - Past Surgical History Past Surgical History: Yes: Breast Biopsy, , Tonsillectomy - Alcohol/Substance Use Hx Alcohol Use: Yes (rare - social) History of Substance Use: reports: None - Smoking History Smoking history: Never smoked Have you smoked in the past 12 months: No Aproximately how many cigarettes per day: 2 If you are a former smoker, when did you quit?: 2 months ago - Social History Usual Living Arrangement: With Child ADL: Independent Occupation: on disability History of Recent Travel: Yes ([place] 07/13 to 07/18) Home Medications - Allergies Allergies/Adverse Reactions: Allergies Allergy/AdvReac Type Severity Reaction Status Date / Time Penicillins Allergy Severe Swelling Verified 10/16/19 17:22 [place] AdvReac Uncoded 10/16/19 17:22 - Home Medications Home Medications: Ambulatory Orders Lactobacillus Acidophilus [Bacid -] 1 tab PO DAILY 28 Days #28 tab 10/04/18 Albuterol Sulfate Inhaler - [Ventolin HFA Inhaler -] 1 - 2 inh PO Q4H PRN #1 inhaler 04/02/19 Albuterol 0.083% Nebulizer Olivia [Ventolin 0.083% Nebulizer Soln -] 1 neb NEB Q6H PRN #120 vial 08/05/19 Budesonide/Formeterol Fumarate [SYMBICORT 80/4.5mcg -] 2 inh PO BID #1 cannister 08/09/19 Levalbuterol HCl [Xopenex] 0.63 mg IH QID #4 box 08/09/19 Levalbuterol Tartrate [Levalbuterol Tartrate Hfa] 15 gm IH QID #1 inhaler Tiotropium [place] [Spiriva Respimat] 4 gm IH DAILY #1 mist.inhal 08/18/19 Valacyclovir HCl [Valtrex -] 1,000 mg PO BID #28 tablet 08/23/19 Abacavir Sulfate/Lamivudine [Abacavir-Lamivudine 600-300 mg] 1 each PO DAILY # 30 tablet 09/06/19 Darunavir Ethanolate [Prezista -] 800 mg PO DAILY #30 tablet 09/06/19 Ritonavir 100 mg PO DAILY #30 tablet 09/06/19 Ergocalciferol (Vitamin D2) [Vitamin D2] 50,000 unit PO WEEKLY #4 capsule Mirtazapine 15 mg PO HS #30 tablet 09/29/19 Vitamin B Complex [B Complex] 1 each PO DAILY #30 tablet 09/29/19 Zolpidem Tartrate [Ambien] 5 mg PO HS PRN #15 tablet MDD 1 09/29/19 Diclofenac Sodium [Voltaren] 100 gm TP BID #1 gel..gram. 10/06/19 Gabapentin 300 mg PO BID #60 capsule 10/06/19 Losartan Potassium [Cozaar -] 25 mg PO DAILY #30 tablet 10/06/19 Methocarbamol [Robaxin -] 500 mg PO BID PRN #15 tablet 10/13/19 Oxycodone HCl/Acetaminophen [Endocet 5-325 Tablet] 1 each PO TID PRN #20 tablet MDD 3 10/13/19 Review of Systems - Review of Systems Constitutional: reports: Malaise. denies: Chills, Fever, Night Sweats, Unintentional Wgt. Loss Eyes: reports: No Symptoms HENT: reports: No Symptoms Neck: reports: No Symptoms Cardiovascular: reports: Shortness of Breath. denies: Chest Pain, Edema, Palpitations Respiratory: reports: Cough, SOB, SOB on Exertion, Wheezing. denies: Snoring Gastrointestinal: reports: No Symptoms Genitourinary: reports: No Symptoms Breasts: reports: No Symptoms Reported Musculoskeletal: reports: Back Pain Integumentary: reports: No Symptoms Neurological: reports: No Symptoms Endocrine: reports: No Symptoms Hematology/Lymphatic: reports: No Symptoms Psychiatric: reports: No Symptoms Physical Exam Vital Sings: Vital Signs Temperature 97.7 F 10/17/19 14:12 Pulse Rate 76 10/17/19 14:12 Respiratory Rate 20 10/17/19 14:12 Blood Pressure 117/84 10/17/19 14:12 O2 Sat by Pulse Oximetry (%) 96 10/17/19 14:12 Constitutional: Yes: No Distress Eyes: Yes: Conjunctiva Clear, EOM Intact HENT: Yes: Atraumatic, Normocephalic Neck: Yes: Supple, Trachea Midline Cardiovascular: Yes: Regular Rate and Rhythm Respiratory: Yes: Cough, Diminished, Rhonchi, SOB, SOB on Exertion, Tachypnea, Wheezes. No: Accessory Muscle Use, Rales, Stridor ...Inspection: Yes: WNL ...Clubbing: No Gastrointestinal: Yes: Normal Bowel Sounds, Soft Renal/: Yes: WNL Musculoskeletal: Yes: WNL Extremities: Yes: WNL Edema: No Peripheral Pulses WNL: Yes Integumentary: Yes: WNL Neurological: Yes: WNL, Alert, Oriented ...Motor Strength: WNL Psychiatric: Yes: WNL, Alert, Oriented Labs: CBC, BMP 10/17/19 06:10 10/17/19 06:10 Imaging - Results Chest X-ray: Report Reviewed, Image Reviewed Problem List - Problems (1) Influenza B Code(s): J10.1 - FLU DUE TO OTH IDENT INFLUENZA VIRUS W OTH RESP MANIFEST (2) AIDS Code(s): B20 - HUMAN IMMUNODEFICIENCY VIRUS [HIV] DISEASE (3) FELIZ (acute kidney injury) Code(s): N17.9 - ACUTE KIDNEY FAILURE, UNSPECIFIED (4) COPD exacerbation Code(s): J44.1 - CHRONIC OBSTRUCTIVE PULMONARY DISEASE W (ACUTE) EXACERBATION (5) Cough Code(s): R05 - COUGH (6) Diarrhea Code(s): R19.7 - DIARRHEA, UNSPECIFIED Qualifiers: Diarrhea type: unspecified type Qualified Code(s): R19.7 - Diarrhea, unspecified (7) Hypertension Code(s): I10 - ESSENTIAL (PRIMARY) HYPERTENSION (8) COPD (chronic obstructive pulmonary disease) Code(s): J44.9 - CHRONIC OBSTRUCTIVE PULMONARY DISEASE, UNSPECIFIED (9) Peripheral neuropathy Code(s): G62.9 - POLYNEUROPATHY, UNSPECIFIED Assessment/Plan Medrol Supplemental O2 as needed Tamiflu BD TX standing and PRN VTE prophylaxis No smoking was counseled Will follow Thank you. Dr Brandon
--- NOTE | 2019-10-17 18:19 | CONS ---
INFECTIOUS DISEASE CONSULTATION DATE OF CONSULTATION: 10/17/2019 HISTORY: This is a 64-year-old woman with HIV who I know well. She was recently in the hospital from September 19- for influenza A and asthma. Her admission was prolonged due to persistent wheezing, and she was discharged on a prolonged prednisone taper. I have seen her twice as an outpatient since then, and she was doing quite well. I saw her in the [place] of the clinic on when she came to see pain management. She was very happy with her visit. On Thursday, she was well. She went to her grandson's school for the morning. In the afternoon, she took her new medications from the pain management doctor for muscle spasm and pain. She became weak and had chills, which she attributed to the new medications. She could not get out of bed all weekend except to use the bathroom. She had some nonbloody, profuse diarrhea in large amounts. She reports to me no real change in her respiratory status. In the ER, she was screened and is influenza B positive. PAST MEDICAL HISTORY: Notable for HIV. 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 Last CD4 was 104 with a viral load of 40. Hypertension newly diagnosed. She has just been started on Cozaar 25 mg daily. Hyperlipidemia for which her pravastatin had been on hold due to elevated LFTs. She has a history of COPD and GERD. 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 She has a history of pneumonia in the past as well as anorexia nervosa. Of note, lately she has had a weight gain of 50 pounds, which is being investigated. She just saw Endocrine. This occurred after she had a prolonged stay at a rehabilitation facility over the summer. ALLERGIES: She is allergic to PENICILLIN. PAST SURGICAL HISTORY: Notable for tonsillectomy and C section. MEDICATIONS: Her medications as an outpatient include Prezcobix, Norvasc, Epzicom. She was started on Bactrim for low T cells. She has been on Valtrex for HSV suppression. She had a recent severe episode of HSV. She has been started on Endocet and Robaxin by pain management. She is on Symbicort as well as Ventolin and Spiriva. FAMILY HISTORY: She lives with her 2 daughters. She is still smoking. No recent substance use. PHYSICAL EXAMINATION: General: She is awake and alert. Vital Signs: Her temperature is 97.7, pulse of 76, blood pressure is 117/84, respiratory rate of 20, saturating 96% on room air. HEENT: She has no thrush. She is normocephalic. Eyes are anicteric. Neck: Supple. Lungs: Diminished breath sounds at the bases. She has bilateral fat pads on either side of her neck. She has scattered rhonchi but no wheezing on exam. Abdomen: Soft, nontender. Extremities: Without edema. DIAGNOSTIC DATA: White count 3.3, hemoglobin 11.1, platelets are 176, BUN 18, creatinine 0.9. Creatinine was 1.5 on admission. AST of 55, ALT of 67. In summary, this is a 64-year-old woman with influenza B. Continue droplet isolation and Tamiflu. Question COPD exacerbation and need for steroids. Pulmonary to see. FELIZ due to influenza and diarrhea improved. Diarrhea may be due to influenza, but she has low T cells, so we will check stool studies and C. difficile. 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 Would continue her ART and Bactrim for PCP prophylaxis. Further recommendations to follow. GERDA NEGRO M.D. [id number]
[2019-10-17] MEDS ORDERED: PT OWN MED DRAWER 7, Y5N ONE (21:47)
[2019-10-17] MEDS: OSELTAMIVIR PHOSPHATE 75 MG CAPSULE PO SCH (21:54)
[2019-10-17] MEDS: MIRTAZAPINE 15 MG TABLET (FP) PO SCH (21:54)
[2019-10-17] MEDS: ZOLPIDEM TARTRATE 5 MG TABLET PO PRN (22:00)
[2019-10-18] MEDS: HEPARIN NA (PORCINE) 5,000 UNITS/ML 1ML VIAL SQ SCH ×3 (06:09→22:38)
[2019-10-18 07:04] LABS: BASO % 0.4 % (0-2.0); HEMATOCRIT 31.7 % (32.4-45.2); HEMOGLOBIN 10.3 GM/dL (10.7-15.3); LYMPH % 12.7 % (8-40); MCH 30.5 pg (25.7-33.7); MCHC 32.5 g/dl (32.0-36.0); MEAN CELL VOLUME 93.8 fl (80-96); MEAN PLT VOLUME 8.6 fl (7.5-11.1); MONO % 8.1 % (3.8-10.2); NEUT % 78.8 % (42.8-82.8); PLATELET COUNT 184 K/MM3 (134-434); RBC 3.38 M/mm3 (3.60-5.2); RDW 17.9 % (11.6-15.6); WHITE BLOOD COUNT 6.6 K/mm3 (4.0-10.0)
[2019-10-18 07:28] LABS: BLOOD UREA NITROGEN 18.6 mg/dL (7-18); CALCIUM 8.1 mg/dL (8.5-10.1); CREATININE 1.3 mg/dL (0.55-1.3)
--- NOTE | 2019-10-18 07:45 | PN ---
Physical Exam: SUBJECTIVE: Patient seen and examined denies any fever but reports chest pain reproducible and associated with cough , reports hoarseness in her voice diarrhea is better and more formed stool , 3 BM today switch valacyclovir to once daily as pt is taking it daily at home OBJECTIVE: Vital Signs Period Temp Pulse Resp BP Sys/Inman Pulse Ox Last 24 Hr 97.7 F-97.9 F 18-108 20-20 117-158/72-87 96-97 GENERAL:AAO3 , IN NAD on droplet isolation HEAD: NC/At EYES: PERRL, extraocular movements intact, ENT: Ears normal, nares patent, oropharynx clear without exudates, moist mucous membranes. NECK: supple. LUNGS: Breath sounds equal, clear to auscultation bilaterally, some wheezes at the bases , no crackles, no accessory muscle use. HEART: sinus tachy , S1, S2 without murmur, rub or gallop. ABDOMEN: obese,Soft, nontender, nondistended, normoactive bowel sounds, EXTREMITIES: 2+ pulses, warm, well-perfused, no edema. NEUROLOGICAL: no focal deficit Laboratory Results - last 24 hr 10/17/19 10/17/19 10/18/19 06:10 06:10 06:28 WBC 3.3 L 6.6 RBC 3.64 3.38 L Hgb 11.1 10.3 L Hct 34.0 31.7 L MCV 93.2 93.8 MCH 30.6 30.5 MCHC 32.8 32.5 RDW 18.0 H 17.9 H Plt Count 176 184 MPV 8.1 8.6 Absolute Neuts (auto) 2.7 5.2 Neutrophils % 80.8 D 78.8 Lymphocytes % 13.6 D 12.7 Monocytes % 5.3 8.1 Eosinophils % 0.0 D 0.0 Basophils % 0.3 0.4 Nucleated RBC % 0 0 Sodium 137 Potassium 4.2 Chloride 108 H Carbon Dioxide 20 L Anion Gap 9 BUN 18.1 H Creatinine 0.9 Est GFR (CKD-EPI)AfAm 78.87 Est GFR (CKD-EPI)NonAf 68.05 Random Glucose 198 H Calcium 8.1 L Magnesium 2.1 10/18/19 06:28 WBC RBC Hgb Hct MCV MCH MCHC RDW Plt Count MPV Absolute Neuts (auto) Neutrophils % Lymphocytes % Monocytes % Eosinophils % Basophils % Nucleated RBC % Sodium 138 Potassium 4.0 Chloride 110 H Carbon Dioxide 19 L Anion Gap 9 BUN 18.6 H Creatinine 1.3 Est GFR (CKD-EPI)AfAm 50.56 Est GFR (CKD-EPI)NonAf 43.62 Random Glucose 289 H Calcium 8.1 L Magnesium Active Medications Generic Name Dose Route Start Last Admin Trade Name Freq PRN Reason Stop Dose Admin Abacavir Sulfate 600 mg 10/17/19 10:00 10/17/19 10:19 Ziagen - PO 600 mg DAILY SHERI Administration Albuterol Sulfate 1 amp 10/17/19 10:41 Ventolin 0.083% Nebulizer Soln - NEB Q4H PRN WHEEZING Albuterol/Ipratropium 1 amp 10/17/19 12:00 10/17/19 23:55 Duoneb - NEB 1 amp QIDR SHERI Administration Darunavir 800 mg 10/17/19 10:00 10/17/19 10:18 Prezista - PO 800 mg DAILY SHERI Administration Gabapentin 300 mg 10/17/19 10:00 10/17/19 21:54 Neurontin - PO 300 mg BID SHERI Administration Heparin Sodium (Porcine) 5,000 unit 10/17/19 06:00 10/18/19 06:09 Heparin - SQ 5,000 unit TID SHERI Administration Lactobacillus Acidophilus 1 tab 10/17/19 10:00 10/17/19 10:18 Bacid - PO 1 tab DAILY SHERI Administration Lamivudine 300 mg 10/17/19 10:00 10/17/19 10:18 Epivir - PO 300 mg DAILY SHERI Administration Losartan Potassium 25 mg 10/17/19 10:00 10/17/19 10:18 Cozaar - PO 25 mg DAILY SHERI Administration Methylprednisolone Sodium Succinate 40 mg 10/17/19 08:00 10/17/19 23:28 Solu-Medrol - IVPUSH 40 mg Q8H SHERI Administration Mirtazapine 15 mg 10/17/19 22:00 10/17/19 21:54 Remeron - PO 15 mg HS SHERI Administration Multivitamins 1 each 10/17/19 10:00 10/17/19 10:19 Total B With C - PO 1 each DAILY SHERI Administration Oseltamivir Phosphate 75 mg 10/17/19 22:00 10/17/19 21:54 Tamiflu - PO 10/22/19 21:59 75 mg BID SHERI Administration Pantoprazole Sodium 40 mg 10/17/19 10:00 10/17/19 10:18 Protonix - PO 40 mg DAILY SHERI Administration Ritonavir 100 mg 10/17/19 10:00 10/17/19 10:18 Norvir - PO 100 mg DAILY SHERI Administration Trimethoprim/Sulfamethoxazole 1 each 10/17/19 10:00 10/17/19 10:18 Bactrim Ds - PO 1 each MoWeFr@1000 SHERI Administration Valacyclovir HCl 1,000 mg 10/17/19 10:00 10/17/19 21:54 Valtrex - PO 1,000 mg BID SHERI Administration Zolpidem Tartrate 5 mg 10/16/19 22:52 10/17/19 22:00 Ambien - PO 5 mg HS PRN Administration INSOMNIA CBC, BMP 10/18/19 06:28 10/18/19 06:28 ASSESSMENT/PLAN: Uzma Monroe is a 64 year old female with a past medical history of HIV ( CD4 104, viral load 70), HTN, HLD, COPD, GERD admitted for COPD exacerbation secondary to influenza B. # Acute COPD Exacerbation 2/2 Influenza B+ * droplet isolation * Tamiflue renal dose * duoneb and labuterol * pulmonary consulted cont steroids Sulomedrol 40 Q 8hr * Spiriva daily * azithromycin 500mg once and continue azithromycin 250mg daily * PPI as on steroids #HIV * continue home medications * Bactrim DS MWF * ID consulted #FELIZ, resolved , likely pre renal * CRE 1.5 (baseline 0.9-1.2) # cough start Robutossin # Hoarsness in her voce due to flue , cont treatment #HTN * continue home losartan #GERD * cont Protonix #DVT PPx * heparin 5000 units subq tid # Sinys tachy cardia due to flue vs albuterol SE , will give one bolus IV NS and TSH in AM FEN * NS 2.5L bolus due to septic vitals, one more bolus due to tachycardia * continue to monitor electrolytes and replete as necessary, hypokalemia noted and repleted * Sodium controlled diet Dispo, tele Visit type - Emergency Visit Emergency Visit: Yes ED Registration Date: 10/16/19 Care time: The patient presented to the Emergency Department on the above date and was hospitalized for further evaluation of their emergent condition. - New Patient This patient is new to me today: Yes Date on this admission: 10/18/19 - Critical Care Critical Care patient: No - Discharge Referral Referred to [facility] Med [facility] No ATTENDING PHYSICIAN STATEMENT I saw and evaluated the patient. I reviewed the resident's note and discussed the case with the resident. I agree with the resident's findings and plan as documented. SUBJECTIVE: OBJECTIVE: ASSESSMENT AND PLAN:
[2019-10-18] MEDS: methylPREDNISolone NA SUCC 40 MG/1 ML VIAL IVPUSH SCH ×3 (08:12→23:26)
[2019-10-18] MEDS: ALBUTEROL SO4 2.5/IPRATROPIUM 0.5 INH SOL 3 ML VIAL.NEB. NEB SCH ×3 (08:35→17:08)
[2019-10-18] MEDS: DARUNAVIR ETHANOLATE 800 MG TAB PO SCH (09:42)
[2019-10-18] MEDS: ABACAVIR SULFATE 300 MG TABLET PO SCH (09:43)
[2019-10-18] MEDS: OSELTAMIVIR PHOSPHATE 75 MG CAPSULE PO SCH ×2 (09:43→22:38)
[2019-10-18] MEDS: VITAMIN B COMPLEX W/C COMBO TABLET (FP) PO SCH (09:43)
[2019-10-18] MEDS: LACTOBACILLUS ACIDOPHILUS 1 TABLET PO SCH (09:44)
[2019-10-18] MEDS: GABAPENTIN 300 MG CAPSULE PO SCH ×2 (09:44→22:37)
[2019-10-18] MEDS: LOSARTAN POTASSIUM 25 MG TABLET PO SCH (09:45)
[2019-10-18] MEDS: PANTOPRAZOLE 40 MG TABLET PO SCH (09:45)
[2019-10-18] MEDS: RITONAVIR 100 MG TABLET PO SCH (09:46)
[2019-10-18] MEDS: valACYclovir HCL 500 MG TABLET (FP) PO SCH (10:06)
--- NOTE | 2019-10-18 12:56 | PN ---
Teaching Attending Note Name of Resident: Kayden Morris ATTENDING PHYSICIAN STATEMENT I saw and evaluated the patient. I reviewed the resident's note and discussed the case with the resident. I agree with the resident's findings and plan as documented. SUBJECTIVE: Patient reports diarrhea is improving. OBJECTIVE: Vital Signs Period Temp Pulse Resp BP Sys/Inman Pulse Ox Last 24 Hr 97.7 F-98.2 F 76-108 16-20 117-158/78-87 96-97 GENERAL: The patient is awake, alert, and fully oriented, in mild respiratory distress. LUNGS: Breath sounds equal, few wheezes bilaterally, no crackles, no accessory muscle use. HEART: Regular rate and rhythm, S1, S2 without murmur, rub or gallop. ABDOMEN: Soft, nontender, nondistended, normoactive bowel sounds, no guarding, no rebound, no hepatosplenomegaly, no masses. EXTREMITIES: 2+ pulses, warm, well-perfused, no edema. Laboratory Results - last 24 hr 10/18/19 10/18/19 06:28 06:28 WBC 6.6 RBC 3.38 L Hgb 10.3 L Hct 31.7 L MCV 93.8 MCH 30.5 MCHC 32.5 RDW 17.9 H Plt Count 184 MPV 8.6 Absolute Neuts (auto) 5.2 Neutrophils % 78.8 Lymphocytes % 12.7 Monocytes % 8.1 Eosinophils % 0.0 Basophils % 0.4 Nucleated RBC % 0 Sodium 138 Potassium 4.0 Chloride 110 H Carbon Dioxide 19 L Anion Gap 9 BUN 18.6 H Creatinine 1.3 Est GFR (CKD-EPI)AfAm 50.56 Est GFR (CKD-EPI)NonAf 43.62 Random Glucose 289 H Calcium 8.1 L Current Medications Generic Name Dose Route Start Last Admin Trade Name Freq PRN Reason Stop Dose Admin Abacavir Sulfate 600 mg 10/17/19 10:00 10/18/19 09:43 Ziagen - PO 600 mg DAILY SHERI Administration Albuterol Sulfate 1 amp 10/17/19 10:41 Ventolin 0.083% Nebulizer Soln - NEB Q4H PRN WHEEZING Albuterol/Ipratropium 1 amp 10/17/19 12:00 10/18/19 12:21 Duoneb - NEB 1 amp QIDR SHERI Administration Darunavir 800 mg 10/17/19 10:00 10/18/19 09:42 Prezista - PO 800 mg DAILY SHERI Administration Gabapentin 300 mg 10/17/19 10:00 10/18/19 09:44 Neurontin - PO 300 mg BID SHERI Administration Heparin Sodium (Porcine) 5,000 unit 10/17/19 06:00 10/18/19 06:09 Heparin - SQ 5,000 unit TID SHERI Administration Lactobacillus Acidophilus 1 tab 10/17/19 10:00 10/18/19 09:44 Bacid - PO 1 tab DAILY SHERI Administration Lamivudine 300 mg 10/17/19 10:00 10/18/19 10:06 Epivir - PO 300 mg DAILY SHERI Administration Losartan Potassium 25 mg 10/17/19 10:00 10/18/19 09:45 Cozaar - PO 25 mg DAILY SHERI Administration Methylprednisolone Sodium Succinate 40 mg 10/17/19 08:00 10/18/19 08:12 Solu-Medrol - IVPUSH 40 mg Q8H SHERI Administration Mirtazapine 15 mg 10/17/19 22:00 10/17/19 21:54 Remeron - PO 15 mg HS SHERI Administration Multivitamins 1 each 10/17/19 10:00 10/18/19 09:43 Total B With C - PO 1 each DAILY SHERI Administration Oseltamivir Phosphate 75 mg 10/17/19 22:00 10/18/19 09:43 Tamiflu - PO 10/22/19 21:59 75 mg BID SHERI Administration Pantoprazole Sodium 40 mg 10/17/19 10:00 10/18/19 09:45 Protonix - PO Not Given DAILY SHERI Ritonavir 100 mg 10/17/19 10:00 10/18/19 09:46 Norvir - PO 100 mg DAILY SHERI Administration Trimethoprim/Sulfamethoxazole 1 each 10/17/19 10:00 10/17/19 10:18 Bactrim Ds - PO 1 each MoWeFr@1000 SHERI Administration Valacyclovir HCl 1,000 mg 10/19/19 10:00 Valtrex - PO DAILY SHERI Zolpidem Tartrate 5 mg 10/16/19 22:52 10/17/19 22:00 Ambien - PO 5 mg HS PRN Administration INSOMNIA ASSESSMENT AND PLAN: This is a 64 year old woman with a history of HTN, hyperlipidemia, COPD, HIV, HSV, GERD who presented to the ED with weakness, chills, SOB, nausea, and diarrhea. 1. Acute exacerbation of COPD secondary to influenza B - Continue SoluMedrol, DuoNeb, Tamiflu - Spiriva held 2. Acute kidney injury - Improved 3. Hypokalemia - Improved 4. HTN - Continue Cozaar 5. Hyperlipidemia 6. GERD - Continue Protonix 7. HIV - Continue Norvir, Epivir, Ziagen, Prezista 8. HSV - Continue Valtrex
--- NOTE | 2019-10-18 13:03 | PN ---
Progress Note, Physician History of Present Illness: pulmonary alert,c/o sob,cough - Current Medication List Current Medications: Active Medications Abacavir Sulfate (Ziagen -) 600 mg PO DAILY [facility] Last Admin: 10/18/19 09:43 Dose: 600 mg Albuterol Sulfate (Ventolin 0.083% Nebulizer Soln -) 1 amp NEB Q4H PRN PRN Reason: WHEEZING Albuterol/Ipratropium (Duoneb -) 1 amp NEB QIDR [facility] Last Admin: 10/18/19 12:21 Dose: 1 amp Darunavir (Prezista -) 800 mg PO DAILY [facility] Last Admin: 10/18/19 09:42 Dose: 800 mg Gabapentin (Neurontin -) 300 mg PO BID [facility] Last Admin: 10/18/19 09:44 Dose: 300 mg Heparin Sodium (Porcine) (Heparin -) 5,000 unit SQ TID [facility] Last Admin: 10/18/19 06:09 Dose: 5,000 unit Lactobacillus Acidophilus (Bacid -) 1 tab PO DAILY [facility] Last Admin: 10/18/19 09:44 Dose: 1 tab Lamivudine (Epivir -) 300 mg PO DAILY [facility] Last Admin: 10/18/19 10:06 Dose: 300 mg Losartan Potassium (Cozaar -) 25 mg PO DAILY [facility] Last Admin: 10/18/19 09:45 Dose: 25 mg Methylprednisolone Sodium Succinate (Solu-Medrol -) 40 mg IVPUSH Q8H [facility] Last Admin: 10/18/19 08:12 Dose: 40 mg Mirtazapine (Remeron -) 15 mg PO HS [facility] Last Admin: 10/17/19 21:54 Dose: 15 mg Multivitamins (Total B With C -) 1 each PO DAILY [facility] Last Admin: 10/18/19 09:43 Dose: 1 each Oseltamivir Phosphate (Tamiflu -) 75 mg PO BID [facility] Stop: 10/22/19 21:59 Last Admin: 10/18/19 09:43 Dose: 75 mg Pantoprazole Sodium (Protonix -) 40 mg PO DAILY [facility] Last Admin: 10/18/19 09:45 Dose: Not Given Ritonavir (Norvir -) 100 mg PO DAILY [facility] Last Admin: 10/18/19 09:46 Dose: 100 mg Trimethoprim/Sulfamethoxazole (Bactrim Ds -) 1 each PO MoWeFr@1000 [facility] Last Admin: 10/17/19 10:18 Dose: 1 each Valacyclovir HCl (Valtrex -) 1,000 mg PO DAILY [facility] Zolpidem Tartrate (Ambien -) 5 mg PO HS PRN PRN Reason: INSOMNIA Last Admin: 10/17/19 22:00 Dose: 5 mg - Objective Vital Signs: Vital Signs Temperature 98.2 F 10/18/19 08:24 Pulse Rate 95 H 10/18/19 08:24 Respiratory Rate 16 10/18/19 08:24 Blood Pressure 119/78 10/18/19 08:24 O2 Sat by Pulse Oximetry (%) 97 10/18/19 10:00 Constitutional: Yes: Well Nourished, Calm Eyes: Yes: WNL HENT: Yes: WNL Neck: Yes: WNL Cardiovascular: Yes: Regular Rate and Rhythm, S1, S2 Respiratory: Yes: Wheezes (bilateral wheezes) Gastrointestinal: Yes: WNL, Normal Bowel Sounds, Soft Extremities: Yes: WNL Edema: No Labs: CBC, BMP 10/18/19 06:28 10/18/19 06:28 INR, PTT INR 1.02 (0.83-1.09) 10/16/19 18:31 Assessment/Plan Problem List - Problems (1) Influenza B Code(s): J10.1 - FLU DUE TO OTH IDENT INFLUENZA VIRUS W OTH RESP MANIFEST (2) AIDS Code(s): B20 - HUMAN IMMUNODEFICIENCY VIRUS [HIV] DISEASE (3) FELIZ (acute kidney injury) Code(s): N17.9 - ACUTE KIDNEY FAILURE, UNSPECIFIED (4) COPD exacerbation Code(s): J44.1 - CHRONIC OBSTRUCTIVE PULMONARY DISEASE W (ACUTE) EXACERBATION (5) Cough Code(s): R05 - COUGH (6) Diarrhea Code(s): R19.7 - DIARRHEA, UNSPECIFIED Qualifiers: Diarrhea type: unspecified type Qualified Code(s): R19.7 - Diarrhea, unspecified (7) Hypertension Code(s): I10 - ESSENTIAL (PRIMARY) HYPERTENSION (8) COPD (chronic obstructive pulmonary disease) Code(s): J44.9 - CHRONIC OBSTRUCTIVE PULMONARY DISEASE, UNSPECIFIED (9) Peripheral neuropathy Code(s): G62.9 - POLYNEUROPATHY, UNSPECIFIED Assessment/Plan Medrol same dose Supplemental O2 as needed Tamiflu BD TX standing and PRN VTE prophylaxis DR BELLA
[2019-10-18] MEDS: guaiFENesin 200 MG/10 ML 10 ML UNIT-DOSE CUPS PO PRN ×2 (16:38→22:39)
[2019-10-18] MEDS ORDERED: ACETAMINOPHEN 1000 MG/100 ML VIAL (NON FORMULARY) IVPB ONE (18:28)
[2019-10-18] MEDS ORDERED: SODIUM CHLORIDE 1,000 ML IV STA (18:28)
[2019-10-18] MEDS ORDERED: PT OWN MED DRAWER 7, Y5N ONE (22:34)
[2019-10-18] MEDS: MIRTAZAPINE 15 MG TABLET (FP) PO SCH (22:37)
[2019-10-18] MEDS: ZOLPIDEM TARTRATE 5 MG TABLET PO PRN (22:37)
[2019-10-19] MEDS: ALBUTEROL SO4 2.5/IPRATROPIUM 0.5 INH SOL 3 ML VIAL.NEB. NEB SCH ×5 (00:17→20:37)
[2019-10-19] MEDS: HEPARIN NA (PORCINE) 5,000 UNITS/ML 1ML VIAL SQ SCH ×3 (07:35→21:51)
[2019-10-19 07:43] LABS: BASO % 0.4 % (0-2.0); HEMATOCRIT 32.1 % (32.4-45.2); HEMOGLOBIN 10.5 GM/dL (10.7-15.3); LYMPH % 9.8 % (8-40); MCH 30.5 pg (25.7-33.7); MCHC 32.6 g/dl (32.0-36.0); MEAN CELL VOLUME 93.5 fl (80-96); MEAN PLT VOLUME 8.2 fl (7.5-11.1); MONO % 7.5 % (3.8-10.2); NEUT % 82.3 % (42.8-82.8); PLATELET COUNT 207 K/MM3 (134-434); RBC 3.43 M/mm3 (3.60-5.2); RDW 18.4 % (11.6-15.6); WHITE BLOOD COUNT 8.3 K/mm3 (4.0-10.0)
[2019-10-19 08:08] LABS: ALBUMIN 3.1 g/dl (3.4-5.0); BILIRUBIN,TOTAL 0.2 mg/dL (0.2-1); BLOOD UREA NITROGEN 17.7 mg/dL (7-18); CALCIUM 8.8 mg/dL (8.5-10.1); CREATININE 1.2 mg/dL (0.55-1.3); POTASSIUM 4.1 mmol/L (3.5-5.1); TOT PROT 7.1 g/dl (6.4-8.2)
[2019-10-19] MEDS ORDERED: PT OWN MED DRAWER 7, Y5N ONE (09:02)
[2019-10-19] MEDS: SULFAMETHOXAZOLE/TRIMETHOPRIM 800MG/160MG D.S. TABLET PO SCH (09:46)
[2019-10-19] MEDS: valACYclovir HCL 500 MG TABLET (FP) PO SCH (09:46)
[2019-10-19] MEDS: RITONAVIR 100 MG TABLET PO SCH (09:47)
[2019-10-19] MEDS: DARUNAVIR ETHANOLATE 800 MG TAB PO SCH (09:47)
[2019-10-19] MEDS: GABAPENTIN 300 MG CAPSULE PO SCH ×2 (09:47→21:51)
[2019-10-19] MEDS: LOSARTAN POTASSIUM 25 MG TABLET PO SCH (09:47)
[2019-10-19] MEDS: LACTOBACILLUS ACIDOPHILUS 1 TABLET PO SCH (09:47)
[2019-10-19] MEDS: ABACAVIR SULFATE 300 MG TABLET PO SCH (09:49)
[2019-10-19] MEDS: VITAMIN B COMPLEX W/C COMBO TABLET (FP) PO SCH (09:49)
[2019-10-19] MEDS: methylPREDNISolone NA SUCC 40 MG/1 ML VIAL IVPUSH SCH ×2 (09:49→17:43)
[2019-10-19] MEDS: OSELTAMIVIR PHOSPHATE 75 MG CAPSULE PO SCH ×2 (09:49→21:51)
[2019-10-19] MEDS: PANTOPRAZOLE 40 MG TABLET PO SCH (09:49)
[2019-10-19] MEDS: guaiFENesin 200 MG/10 ML 10 ML UNIT-DOSE CUPS PO PRN (09:57)
--- NOTE | 2019-10-19 11:21 | PN ---
Progress Note (short form) - Note Progress Note: conitnues to wheeze diarrhea has resolved Vital Signs Period Temp Pulse Resp BP Sys/Inman Pulse Ox Last 24 Hr 96.8 F-98.2 F 78-118 19-20 113-155/67-87 95 cor-rrr lungs bilateral wheeze/rhonchi abd soft,nt ext no edema CBC, BMP 10/19/19 06:12 10/19/19 06:12 Microbiology 10/16/19 18:35 Blood - Peripheral Venous Blood Culture - Preliminary NO GROWTH OBTAINED AFTER 48 HOURS, INCUBATION TO CONTINUE FOR 3 DAYS. 10/16/19 18:31 Blood - Peripheral Venous Blood Culture - Preliminary NO GROWTH OBTAINED AFTER 48 HOURS, INCUBATION TO CONTINUE FOR 3 DAYS. 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- continue art and bactrim for pcp prophylaxis no signs UTI negative UA, 30k colony count - no need to treat Problem List - Problems (1) Influenza B Code(s): J10.1 - FLU DUE TO OTH IDENT INFLUENZA VIRUS W OTH RESP MANIFEST (2) FELIZ (acute kidney injury) Code(s): N17.9 - ACUTE KIDNEY FAILURE, UNSPECIFIED (3) Diarrhea Code(s): R19.7 - DIARRHEA, UNSPECIFIED Qualifiers: Diarrhea type: unspecified type Qualified Code(s): R19.7 - Diarrhea, unspecified (4) AIDS Code(s): B20 - HUMAN IMMUNODEFICIENCY VIRUS [HIV] DISEASE (5) COPD exacerbation Code(s): J44.1 - CHRONIC OBSTRUCTIVE PULMONARY DISEASE W (ACUTE) EXACERBATION
--- NOTE | 2019-10-19 11:32 | PN ---
Progress Note, Physician History of Present Illness: PULMONARY ALERT,STILL CONGESTED,+ COUGH - Current Medication List Current Medications: Active Medications Abacavir Sulfate (Ziagen -) 600 mg PO DAILY [facility] Last Admin: 10/19/19 09:49 Dose: 600 mg Albuterol Sulfate (Ventolin 0.083% Nebulizer Soln -) 1 amp NEB Q4H PRN PRN Reason: WHEEZING Albuterol/Ipratropium (Duoneb -) 1 amp NEB QIDR [facility] Last Admin: 10/19/19 08:00 Dose: 1 amp Darunavir (Prezista -) 800 mg PO DAILY [facility] Last Admin: 10/19/19 09:47 Dose: 800 mg Gabapentin (Neurontin -) 300 mg PO BID [facility] Last Admin: 10/19/19 09:47 Dose: 300 mg Guaifenesin (Robitussin -) 10 ml PO Q6H PRN PRN Reason: COUGH Last Admin: 10/19/19 09:57 Dose: 10 ml Heparin Sodium (Porcine) (Heparin -) 5,000 unit SQ TID [facility] Last Admin: 10/19/19 07:35 Dose: 5,000 unit Lactobacillus Acidophilus (Bacid -) 1 tab PO DAILY [facility] Last Admin: 10/19/19 09:47 Dose: 1 tab Lamivudine (Epivir -) 300 mg PO DAILY [facility] Last Admin: 10/19/19 09:48 Dose: 300 mg Losartan Potassium (Cozaar -) 25 mg PO DAILY [facility] Last Admin: 10/19/19 09:47 Dose: 25 mg Methylprednisolone Sodium Succinate (Solu-Medrol -) 40 mg IVPUSH Q8H [facility] Last Admin: 10/19/19 09:49 Dose: 40 mg Mirtazapine (Remeron -) 15 mg PO HS [facility] Last Admin: 10/18/19 22:37 Dose: 15 mg Multivitamins (Total B With C -) 1 each PO DAILY [facility] Last Admin: 10/19/19 09:49 Dose: 1 each Oseltamivir Phosphate (Tamiflu -) 75 mg PO BID [facility] Stop: 10/22/19 21:59 Last Admin: 10/19/19 09:49 Dose: 75 mg Pantoprazole Sodium (Protonix -) 40 mg PO DAILY [facility] Last Admin: 10/19/19 09:49 Dose: Not Given Ritonavir (Norvir -) 100 mg PO DAILY [facility] Last Admin: 10/19/19 09:47 Dose: 100 mg Trimethoprim/Sulfamethoxazole (Bactrim Ds -) 1 each PO MoWeFr@1000 [facility] Last Admin: 10/19/19 09:46 Dose: 1 each Valacyclovir HCl (Valtrex -) 1,000 mg PO DAILY [facility] Last Admin: 10/19/19 09:46 Dose: 1,000 mg Zolpidem Tartrate (Ambien -) 5 mg PO PRN PRN Reason: INSOMNIA Last Admin: 10/18/19 22:37 Dose: 5 mg - Objective Vital Signs: Vital Signs Temperature 97.6 F 10/19/19 05:30 Pulse Rate 78 10/19/19 05:30 Respiratory Rate 20 10/19/19 05:30 Blood Pressure 123/70 10/19/19 05:30 O2 Sat by Pulse Oximetry (%) 95 10/18/19 21:00 Constitutional: Yes: Well Nourished, Calm Eyes: Yes: WNL HENT: Yes: WNL Neck: Yes: WNL Cardiovascular: Yes: Regular Rate and Rhythm, S1, S2 Respiratory: Yes: Rhonchi, Wheezes Gastrointestinal: Yes: Normal Bowel Sounds, Soft Extremities: Yes: WNL Edema: No Labs: CBC, BMP 10/19/19 06:12 10/19/19 06:12 Assessment/Plan Problem List - Problems (1) Influenza B Code(s): J10.1 - FLU DUE TO OTH IDENT INFLUENZA VIRUS W OTH RESP MANIFEST (2) AIDS Code(s): B20 - HUMAN IMMUNODEFICIENCY VIRUS [HIV] DISEASE (3) FELIZ (acute kidney injury) Code(s): N17.9 - ACUTE KIDNEY FAILURE, UNSPECIFIED (4) COPD exacerbation Code(s): J44.1 - CHRONIC OBSTRUCTIVE PULMONARY DISEASE W (ACUTE) EXACERBATION (5) Cough Code(s): R05 - COUGH (6) Diarrhea Code(s): R19.7 - DIARRHEA, UNSPECIFIED Qualifiers: Diarrhea type: unspecified type Qualified Code(s): R19.7 - Diarrhea, unspecified (7) Hypertension Code(s): I10 - ESSENTIAL (PRIMARY) HYPERTENSION (8) COPD (chronic obstructive pulmonary disease) Code(s): J44.9 - CHRONIC OBSTRUCTIVE PULMONARY DISEASE, UNSPECIFIED (9) Peripheral neuropathy Code(s): G62.9 - POLYNEUROPATHY, UNSPECIFIED Assessment/Plan continue Medrol same dose Supplemental O2 as needed Tamiflu BD TX standing and PRN VTE prophylaxis DR BELLA
--- NOTE | 2019-10-19 12:51 | PN ---
Physical Exam: SUBJECTIVE: Patient seen and examined no acute events over night denies any fever or chills, chest pain is better , still some congestion TSH is low will repeat as out pt after acute phase order t3 , t4 OBJECTIVE: Vital Signs Period Temp Pulse Resp BP Sys/Inman Pulse Ox Last 24 Hr 96.8 F-98.2 F 78-118 19-20 113-155/67-87 95 GENERAL:AAO3 , IN NAD on droplet isolation HEAD: NC/At EYES: PERRL, extraocular movements intact, ENT: Ears normal, nares patent, oropharynx clear without exudates, moist mucous membranes. NECK: supple. LUNGS: Breath sounds equal, clear to auscultation bilaterally, some wheezes at the bases , no crackles, no accessory muscle use. HEART: sinus tachy , S1, S2 without murmur, rub or gallop. ABDOMEN: obese,Soft, nontender, nondistended, normoactive bowel sounds, EXTREMITIES: 2+ pulses, warm, well-perfused, no edema. NEUROLOGICAL: no focal deficit Laboratory Results - last 24 hr 10/19/19 10/19/19 10/19/19 06:12 06:12 06:12 WBC 8.3 RBC 3.43 L Hgb 10.5 L Hct 32.1 L MCV 93.5 MCH 30.5 MCHC 32.6 RDW 18.4 H Plt Count 207 MPV 8.2 Absolute Neuts (auto) 6.8 Neutrophils % 82.3 Lymphocytes % 9.8 D Monocytes % 7.5 Eosinophils % 0.0 Basophils % 0.4 Nucleated RBC % 0 Sodium 141 Potassium 4.1 Chloride 109 H Carbon Dioxide 21 Anion Gap 11 BUN 17.7 Creatinine 1.2 Est GFR (CKD-EPI)AfAm 55.70 Est GFR (CKD-EPI)NonAf 48.06 Random Glucose 262 H Calcium 8.8 Iron 63 TIBC 219 L Iron Saturation 28 Unsaturated IBC 156 L Ferritin 891.9 H Total Bilirubin 0.2 AST 22 ALT 49 Alkaline Phosphatase 93 Total Protein 7.1 Albumin 3.1 L TSH 0.09 L Free T4 10/19/19 11:27 WBC RBC Hgb Hct MCV MCH MCHC RDW Plt Count MPV Absolute Neuts (auto) Neutrophils % Lymphocytes % Monocytes % Eosinophils % Basophils % Nucleated RBC % Sodium Potassium Chloride Carbon Dioxide Anion Gap BUN Creatinine Est GFR (CKD-EPI)AfAm Est GFR (CKD-EPI)NonAf Random Glucose Calcium Iron TIBC Iron Saturation Unsaturated IBC Ferritin Total Bilirubin AST ALT Alkaline Phosphatase Total Protein Albumin TSH Free T4 0.91 Active Medications Generic Name Dose Route Start Last Admin Trade Name Freq PRN Reason Stop Dose Admin Abacavir Sulfate 600 mg 10/17/19 10:00 10/19/19 09:49 Ziagen - PO 600 mg DAILY SHERI Administration Albuterol Sulfate 1 amp 10/17/19 10:41 Ventolin 0.083% Nebulizer Soln - NEB Q4H PRN WHEEZING Albuterol/Ipratropium 1 amp 10/17/19 12:00 10/19/19 08:00 Duoneb - NEB 1 amp QIDR SHERI Administration Darunavir 800 mg 10/17/19 10:00 10/19/19 09:47 Prezista - PO 800 mg DAILY SHERI Administration Gabapentin 300 mg 10/17/19 10:00 10/19/19 09:47 Neurontin - PO 300 mg BID SHERI Administration Guaifenesin 10 ml 10/18/19 16:02 10/19/19 09:57 Robitussin - PO 10 ml Q6H PRN Administration COUGH Heparin Sodium (Porcine) 5,000 unit 10/17/19 06:00 10/19/19 07:35 Heparin - SQ 5,000 unit TID SHERI Administration Lactobacillus Acidophilus 1 tab 10/17/19 10:00 10/19/19 09:47 Bacid - PO 1 tab DAILY SHERI Administration Lamivudine 300 mg 10/17/19 10:00 10/19/19 09:48 Epivir - PO 300 mg DAILY SHERI Administration Losartan Potassium 25 mg 10/17/19 10:00 10/19/19 09:47 Cozaar - PO 25 mg DAILY SHERI Administration Methylprednisolone Sodium Succinate 40 mg 10/17/19 08:00 10/19/19 09:49 Solu-Medrol - IVPUSH 40 mg Q8H SHERI Administration Mirtazapine 15 mg 10/17/19 22:00 10/18/19 22:37 Remeron - PO 15 mg HS SHERI Administration Multivitamins 1 each 10/17/19 10:00 10/19/19 09:49 Total B With C - PO 1 each DAILY SHERI Administration Oseltamivir Phosphate 75 mg 10/17/19 22:00 10/19/19 09:49 Tamiflu - PO 10/22/19 21:59 75 mg BID SHERI Administration Pantoprazole Sodium 40 mg 10/17/19 10:00 10/19/19 09:49 Protonix - PO Not Given DAILY SHERI Ritonavir 100 mg 10/17/19 10:00 10/19/19 09:47 Norvir - PO 100 mg DAILY SHERI Administration Trimethoprim/Sulfamethoxazole 1 each 10/17/19 10:00 10/19/19 09:46 Bactrim Ds - PO 1 each MoWeFr@1000 SHERI Administration Valacyclovir HCl 1,000 mg 10/19/19 10:00 10/19/19 09:46 Valtrex - PO 1,000 mg DAILY SHERI Administration Zolpidem Tartrate 5 mg 10/16/19 22:52 10/18/19 22:37 Ambien - PO 5 mg HS PRN Administration INSOMNIA CBC, BMP 10/19/19 06:12 10/19/19 06:12 ASSESSMENT/PLAN: Uzma Monroe is a 64 year old female with a past medical history of HIV ( CD4 104, viral load 70), HTN, HLD, COPD, GERD admitted for COPD exacerbation secondary to influenza B. # Acute COPD Exacerbation 2/2 Influenza B+ * droplet isolation * Tamiflue renal dose * duoneb and labuterol * pulmonary consulted cont steroids Sulomedrol 40 Q 8hr * Spiriva daily * azithromycin 500mg once and continue azithromycin 250mg daily * PPI as on steroids #HIV * continue home medications * Bactrim DS MWF * ID consulted #FELIZ, resolved , likely pre renal * CRE 1.5 (baseline 0.9-1.2) # cough start Robutossin # Hoarsness in her voice due to flue , cont treatment #HTN * continue home losartan #GERD * cont Protonix # weight gain , pt reports she gain 100 pound during alst year she needs to folow up with endocrinology as out pt. #DVT PPx * heparin 5000 units subq tid # Sinys tachy cardia due to flue vs albuterol SE * TSH low will repeat as out pt after acute phase * Follow Ft3 , Ft4 # UTI : no signs UTI negative UA, 30k colony count - no need to treat per ID #FEN * NS 2.5L bolus due to septic vitals, * continue to monitor electrolytes and replete as necessary, hypokalemia noted and repleted * Sodium controlled diet Dispo, tele Visit type - Emergency Visit Emergency Visit: Yes ED Registration Date: 10/16/19 Care time: The patient presented to the Emergency Department on the above date and was hospitalized for further evaluation of their emergent condition. - New Patient This patient is new to me today: No - Critical Care Critical Care patient: No ATTENDING PHYSICIAN STATEMENT I saw and evaluated the patient. I reviewed the resident's note and discussed the case with the resident. I agree with the resident's findings and plan as documented. SUBJECTIVE: OBJECTIVE: ASSESSMENT AND PLAN:
--- NOTE | 2019-10-19 18:48 | PN ---
Teaching Attending Note Name of Resident: Kayden Morris ATTENDING PHYSICIAN STATEMENT I saw and evaluated the patient. I reviewed the resident's note and discussed the case with the resident. I agree with the resident's findings and plan as documented. SUBJECTIVE: Patient has no complaints. OBJECTIVE: Vital Signs Period Temp Pulse Resp BP Sys/Inman Pulse Ox Last 24 Hr 97.6 F-98.2 F 78-113 20-20 118-137/59-87 95-95 GENERAL: The patient is awake, alert, and fully oriented, in mild respiratory distress. LUNGS: Breath sounds equal, few wheezes bilaterally, no crackles, no accessory muscle use. HEART: Regular rhythm, tachycardic, S1, S2 without murmur, rub or gallop. ABDOMEN: Soft, nontender, nondistended, normoactive bowel sounds, no guarding, no rebound, no hepatosplenomegaly, no masses. EXTREMITIES: 2+ pulses, warm, well-perfused, no edema. Laboratory Results - last 24 hr 10/19/19 10/19/19 10/19/19 06:12 06:12 06:12 WBC 8.3 RBC 3.43 L Hgb 10.5 L Hct 32.1 L MCV 93.5 MCH 30.5 MCHC 32.6 RDW 18.4 H Plt Count 207 MPV 8.2 Absolute Neuts (auto) 6.8 Neutrophils % 82.3 Lymphocytes % 9.8 D Monocytes % 7.5 Eosinophils % 0.0 Basophils % 0.4 Nucleated RBC % 0 Sodium 141 Potassium 4.1 Chloride 109 H Carbon Dioxide 21 Anion Gap 11 BUN 17.7 Creatinine 1.2 Est GFR (CKD-EPI)AfAm 55.70 Est GFR (CKD-EPI)NonAf 48.06 Random Glucose 262 H Calcium 8.8 Iron 63 TIBC 219 L Iron Saturation 28 Unsaturated IBC 156 L Ferritin 891.9 H Total Bilirubin 0.2 AST 22 ALT 49 Alkaline Phosphatase 93 Total Protein 7.1 Albumin 3.1 L TSH 0.09 L Free T4 10/19/19 11:27 WBC RBC Hgb Hct MCV MCH MCHC RDW Plt Count MPV Absolute Neuts (auto) Neutrophils % Lymphocytes % Monocytes % Eosinophils % Basophils % Nucleated RBC % Sodium Potassium Chloride Carbon Dioxide Anion Gap BUN Creatinine Est GFR (CKD-EPI)AfAm Est GFR (CKD-EPI)NonAf Random Glucose Calcium Iron TIBC Iron Saturation Unsaturated IBC Ferritin Total Bilirubin AST ALT Alkaline Phosphatase Total Protein Albumin TSH Free T4 0.91 Current Medications Generic Name Dose Route Start Last Admin Trade Name Freq PRN Reason Stop Dose Admin Abacavir Sulfate 600 mg 10/17/19 10:00 10/19/19 09:49 Ziagen - PO 600 mg DAILY SHERI Administration Albuterol Sulfate 1 amp 10/17/19 10:41 Ventolin 0.083% Nebulizer Soln - NEB Q4H PRN WHEEZING Albuterol/Ipratropium 1 amp 10/19/19 14:08 10/19/19 15:55 Duoneb - NEB 1 amp RQID SHERI Administration Darunavir 800 mg 10/17/19 10:00 10/19/19 09:47 Prezista - PO 800 mg DAILY SHERI Administration Gabapentin 300 mg 10/17/19 10:00 10/19/19 09:47 Neurontin - PO 300 mg BID SHERI Administration Guaifenesin 10 ml 10/18/19 16:02 10/19/19 09:57 Robitussin - PO 10 ml Q6H PRN Administration COUGH Heparin Sodium (Porcine) 5,000 unit 10/17/19 06:00 10/19/19 14:37 Heparin - SQ 5,000 unit TID SHERI Administration Lactobacillus Acidophilus 1 tab 10/17/19 10:00 10/19/19 09:47 Bacid - PO 1 tab DAILY SHERI Administration Lamivudine 300 mg 10/17/19 10:00 10/19/19 09:48 Epivir - PO 300 mg DAILY SHERI Administration Losartan Potassium 25 mg 10/17/19 10:00 10/19/19 09:47 Cozaar - PO 25 mg DAILY SHERI Administration Methylprednisolone Sodium Succinate 40 mg 10/17/19 08:00 10/19/19 17:43 Solu-Medrol - IVPUSH 40 mg Q8H SHERI Administration Mirtazapine 15 mg 10/17/19 22:00 10/18/19 22:37 Remeron - PO 15 mg HS SHERI Administration Multivitamins 1 each 10/17/19 10:00 10/19/19 09:49 Total B With C - PO 1 each DAILY SHERI Administration Oseltamivir Phosphate 75 mg 10/17/19 22:00 10/19/19 09:49 Tamiflu - PO 10/22/19 21:59 75 mg BID SHERI Administration Pantoprazole Sodium 40 mg 10/17/19 10:00 10/19/19 09:49 Protonix - PO Not Given DAILY SHERI Ritonavir 100 mg 10/17/19 10:00 10/19/19 09:47 Norvir - PO 100 mg DAILY SHERI Administration Trimethoprim/Sulfamethoxazole 1 each 10/17/19 10:00 10/19/19 09:46 Bactrim Ds - PO 1 each MoWeFr@1000 SHERI Administration Valacyclovir HCl 1,000 mg 10/19/19 10:00 10/19/19 09:46 Valtrex - PO 1,000 mg DAILY SHERI Administration Zolpidem Tartrate 5 mg 10/16/19 22:52 10/18/19 22:37 Ambien - PO 5 mg HS PRN Administration INSOMNIA ASSESSMENT AND PLAN: This is a 64 year old woman with a history of HTN, hyperlipidemia, COPD, HIV, HSV, GERD who presented to the ED with weakness, chills, SOB, nausea, and diarrhea. 1. Acute exacerbation of COPD secondary to influenza B - Continue SoluMedrol, DuoNeb, Tamiflu - Spiriva held 2. Acute kidney injury - Improved 3. Hypokalemia - Improved 4. HTN - Continue Cozaar 5. Hyperlipidemia 6. GERD - Continue Protonix 7. HIV - Continue Norvir, Epivir, Ziagen, Prezista 8. HSV - Continue Valtrex
[2019-10-19] MEDS: MIRTAZAPINE 15 MG TABLET (FP) PO SCH (21:51)
[2019-10-19] MEDS: ZOLPIDEM TARTRATE 5 MG TABLET PO PRN (21:57)
[2019-10-20] MEDS: methylPREDNISolone NA SUCC 40 MG/1 ML VIAL IVPUSH SCH ×4 (00:27→22:10)
[2019-10-20] MEDS: HEPARIN NA (PORCINE) 5,000 UNITS/ML 1ML VIAL SQ SCH ×3 (06:01→22:10)
--- NOTE | 2019-10-20 06:09 | PN ---
Physical Exam: SUBJECTIVE: Patient seen and examined no acute events over night denies any fever or chills, chest pain is better , still some congestion increase steroids to Q 6hr TSH is low will repeat as out pt after acute phase order Ft3 1.8 , ft4 0.9 will repeat as out pt BGM 400 this MA will start ISS BP was 150 systolic in Am given her BP earlier OBJECTIVE: Vital Signs Period Temp Pulse Resp BP Sys/Inman Pulse Ox Last 24 Hr 97.5 F-98.4 F 79-116 20-20 118-154/59-99 95-95 GENERAL:AAO3 , IN NAD on droplet isolation HEAD: NC/At EYES: PERRL, extraocular movements intact, ENT: Ears normal, nares patent, oropharynx clear without exudates, moist mucous membranes. NECK: supple. LUNGS: Breath sounds equal, clear to auscultation bilaterally, some wheezes at the bases , no crackles, no accessory muscle use. HEART: sinus tachy , S1, S2 without murmur, rub or gallop. ABDOMEN: obese,Soft, nontender, nondistended, normoactive bowel sounds, EXTREMITIES: 2+ pulses, warm, well-perfused, no edema. NEUROLOGICAL: no focal deficit Laboratory Results - last 24 hr 10/19/19 10/19/19 10/19/19 06:12 06:12 06:12 WBC 8.3 RBC 3.43 L Hgb 10.5 L Hct 32.1 L MCV 93.5 MCH 30.5 MCHC 32.6 RDW 18.4 H Plt Count 207 MPV 8.2 Absolute Neuts (auto) 6.8 Neutrophils % 82.3 Lymphocytes % 9.8 D Monocytes % 7.5 Eosinophils % 0.0 Basophils % 0.4 Nucleated RBC % 0 Sodium 141 Potassium 4.1 Chloride 109 H Carbon Dioxide 21 Anion Gap 11 BUN 17.7 Creatinine 1.2 Est GFR (CKD-EPI)AfAm 55.70 Est GFR (CKD-EPI)NonAf 48.06 Random Glucose 262 H Calcium 8.8 Iron 63 TIBC 219 L Iron Saturation 28 Unsaturated IBC 156 L Ferritin 891.9 H Total Bilirubin 0.2 AST 22 ALT 49 Alkaline Phosphatase 93 Total Protein 7.1 Albumin 3.1 L TSH 0.09 L Free T4 10/19/19 11:27 WBC RBC Hgb Hct MCV MCH MCHC RDW Plt Count MPV Absolute Neuts (auto) Neutrophils % Lymphocytes % Monocytes % Eosinophils % Basophils % Nucleated RBC % Sodium Potassium Chloride Carbon Dioxide Anion Gap BUN Creatinine Est GFR (CKD-EPI)AfAm Est GFR (CKD-EPI)NonAf Random Glucose Calcium Iron TIBC Iron Saturation Unsaturated IBC Ferritin Total Bilirubin AST ALT Alkaline Phosphatase Total Protein Albumin TSH Free T4 0.91 Active Medications Generic Name Dose Route Start Last Admin Trade Name Freq PRN Reason Stop Dose Admin Abacavir Sulfate 600 mg 10/17/19 10:00 10/19/19 09:49 Ziagen - PO 600 mg DAILY SHERI Administration Albuterol Sulfate 1 amp 10/17/19 10:41 Ventolin 0.083% Nebulizer Soln - NEB Q4H PRN WHEEZING Albuterol/Ipratropium 1 amp 10/19/19 14:08 10/19/19 20:37 Duoneb - NEB 1 amp RQID SHERI Administration Darunavir 800 mg 10/17/19 10:00 10/19/19 09:47 Prezista - PO 800 mg DAILY SHERI Administration Gabapentin 300 mg 10/17/19 10:00 10/19/19 21:51 Neurontin - PO 300 mg BID SHERI Administration Guaifenesin 10 ml 10/18/19 16:02 10/19/19 09:57 Robitussin - PO 10 ml Q6H PRN Administration COUGH Heparin Sodium (Porcine) 5,000 unit 10/17/19 06:00 10/20/19 06:01 Heparin - SQ 5,000 unit TID SHERI Administration Lactobacillus Acidophilus 1 tab 10/17/19 10:00 10/19/19 09:47 Bacid - PO 1 tab DAILY SHERI Administration Lamivudine 300 mg 10/17/19 10:00 10/19/19 09:48 Epivir - PO 300 mg DAILY SHERI Administration Losartan Potassium 25 mg 10/17/19 10:00 10/19/19 09:47 Cozaar - PO 25 mg DAILY SHERI Administration Methylprednisolone Sodium Succinate 40 mg 10/17/19 08:00 10/20/19 00:27 Solu-Medrol - IVPUSH 40 mg Q8H SHERI Administration Mirtazapine 15 mg 10/17/19 22:00 10/19/19 21:51 Remeron - PO 15 mg HS SHERI Administration Multivitamins 1 each 10/17/19 10:00 10/19/19 09:49 Total B With C - PO 1 each DAILY SHERI Administration Oseltamivir Phosphate 75 mg 10/17/19 22:00 10/19/19 21:51 Tamiflu - PO 10/22/19 21:59 75 mg BID SHERI Administration Pantoprazole Sodium 40 mg 10/17/19 10:00 10/19/19 09:49 Protonix - PO Not Given DAILY SHERI Ritonavir 100 mg 10/17/19 10:00 10/19/19 09:47 Norvir - PO 100 mg DAILY SHERI Administration Trimethoprim/Sulfamethoxazole 1 each 10/17/19 10:00 10/19/19 09:46 Bactrim Ds - PO 1 each MoWeFr@1000 SHERI Administration Valacyclovir HCl 1,000 mg 10/19/19 10:00 10/19/19 09:46 Valtrex - PO 1,000 mg DAILY SHERI Administration Zolpidem Tartrate 5 mg 10/16/19 22:52 10/19/19 21:57 Ambien - PO 5 mg HS PRN Administration INSOMNIA CBC, BMP 10/20/19 06:35 10/20/19 06:35 ASSESSMENT/PLAN: Uzma Monroe is a 64 year old female with a past medical history of HIV ( CD4 104, viral load 70), HTN, HLD, COPD, GERD admitted for COPD exacerbation secondary to influenza B. # sepsis 2/2 influneza B + , improved * cont ghada flue * cont abx prophylaxis # Acute COPD Exacerbation 2/2 Influenza B+ * droplet isolation * Tamiflue renal dose * duoneb and labuterol * pulmonary consulted increase steroids Sulomedrol to 40 Q 6 hr * Spiriva daily * azithromycin 500mg once and continue azithromycin 250mg daily * PPI as on steroids # Hyperglycemia 2/2 steroids use started on ISS and levimer 5 BID * order A1c #HIV * continue home medications * Bactrim DS MWF * ID consulted #FELIZ, resolved , likely pre renal * CRE 1.5 (baseline 0.9-1.2) # cough start Robutossin # Hoarsness in her voice due to flue , cont treatment #HTN * continue home losartan #GERD * cont Protonix # weight gain , pt reports she gain 100 pound during alst year she needs to folow up with endocrinology as out pt. #DVT PPx * heparin 5000 units subq tid # Sinys tachy cardia due to flue vs albuterol SE * TSH low will repeat as out pt after acute phase * Ft3 , Ft4 noted repeat as out pt # UTI : no signs UTI negative UA, 30k colony count - no need to treat per ID #FEN * NS 2.5L bolus due to septic vitals, * continue to monitor electrolytes and replete as necessary, hypokalemia noted and repleted * Sodium controlled diet Dispo, tele Visit type - Emergency Visit Emergency Visit: Yes ED Registration Date: 10/16/19 Care time: The patient presented to the Emergency Department on the above date and was hospitalized for further evaluation of their emergent condition. - New Patient This patient is new to me today: No - Critical Care Critical Care patient: No - Discharge Referral Referred to [facility] Med [facility].C[facility] No ATTENDING PHYSICIAN STATEMENT I saw and evaluated the patient. I reviewed the resident's note and discussed the case with the resident. I agree with the resident's findings and plan as documented. SUBJECTIVE: OBJECTIVE: ASSESSMENT AND PLAN:
[2019-10-20 06:58] LABS: BASO % 0.6 % (0-2.0); HEMATOCRIT 31.5 % (32.4-45.2); HEMOGLOBIN 10.4 GM/dL (10.7-15.3); LYMPH % 13.3 % (8-40); MCH 30.6 pg (25.7-33.7); MEAN CELL VOLUME 92.9 fl (80-96); MEAN PLT VOLUME 8.3 fl (7.5-11.1); MONO % 8.4 % (3.8-10.2); NEUT % 77.7 % (42.8-82.8); PLATELET COUNT 204 K/MM3 (134-434); RBC 3.39 M/mm3 (3.60-5.2); RDW 18.2 % (11.6-15.6); WHITE BLOOD COUNT 8.8 K/mm3 (4.0-10.0)
[2019-10-20 07:43] LABS: BLOOD UREA NITROGEN 24.5 mg/dL (7-18); CALCIUM 8.6 mg/dL (8.5-10.1); CREATININE 1.4 mg/dL (0.55-1.3); POTASSIUM 3.9 mmol/L (3.5-5.1)
[2019-10-20] MEDS: ALBUTEROL SO4 2.5/IPRATROPIUM 0.5 INH SOL 3 ML VIAL.NEB. NEB SCH (08:00)
[2019-10-20] MEDS ORDERED: PT OWN MED DRAWER 7, Y5N ONE ×2 (08:59→21:47)
[2019-10-20] MEDS ORDERED: ALBUTEROL SO4 2.5/IPRATROPIUM 0.5 INH SOL 3 ML VIAL.NEB. NEB PRN (09:41)
[2019-10-20] MEDS ORDERED: Insulin (LOG) Aspart 100 UNITS/ML VIAL SQ ONE (10:20)
[2019-10-20] MEDS ORDERED: INSULIN (LEVEMIR) 100 UNITS/ML UNITS SQ SCH (10:30)
[2019-10-20] MEDS: LACTOBACILLUS ACIDOPHILUS 1 TABLET PO SCH (10:35)
[2019-10-20] MEDS: VITAMIN B COMPLEX W/C COMBO TABLET (FP) PO SCH (10:35)
[2019-10-20] MEDS: OSELTAMIVIR PHOSPHATE 75 MG CAPSULE PO SCH ×2 (10:35→22:07)
[2019-10-20] MEDS: valACYclovir HCL 500 MG TABLET (FP) PO SCH (10:35)
[2019-10-20] MEDS: DARUNAVIR ETHANOLATE 800 MG TAB PO SCH (10:36)
[2019-10-20] MEDS: GABAPENTIN 300 MG CAPSULE PO SCH ×2 (10:36→22:08)
[2019-10-20] MEDS: RITONAVIR 100 MG TABLET PO SCH (10:37)
[2019-10-20] MEDS: LOSARTAN POTASSIUM 25 MG TABLET PO SCH (10:38)
[2019-10-20] MEDS: INSULIN SLIDING SCALE (NOVOLOG) 1 VIAL SQ SCH ×3 (10:39→22:10)
[2019-10-20] MEDS: PANTOPRAZOLE 40 MG TABLET PO SCH (10:39)
--- NOTE | 2019-10-20 11:09 | PN ---
Progress Note, Physician History of Present Illness: PULMONARY ALERT,C/O INCREASED SOB,CONGESTION - Current Medication List Current Medications: Active Medications Abacavir Sulfate (Ziagen -) 600 mg PO DAILY [facility] Last Admin: 10/19/19 09:49 Dose: 600 mg Albuterol/Ipratropium (Duoneb -) 1 amp NEB Q6H PRN PRN Reason: SHORTNESS OF BREATH Darunavir (Prezista -) 800 mg PO DAILY [facility] Last Admin: 10/20/19 10:36 Dose: 800 mg Fluconazole (Diflucan 40mg/Ml Suspension -) 400 mg PO DAILY [facility] Gabapentin (Neurontin -) 300 mg PO BID [facility] Last Admin: 10/20/19 10:36 Dose: 300 mg Guaifenesin (Robitussin -) 10 ml PO Q6H PRN PRN Reason: COUGH Last Admin: 10/19/19 09:57 Dose: 10 ml Heparin Sodium (Porcine) (Heparin -) 5,000 unit SQ TID [facility] Last Admin: 10/20/19 06:01 Dose: 5,000 unit Insulin Aspart (Novolog Vial Sliding Scale -) 1 vial SQ [facility]; Protocol Last Admin: 10/20/19 10:39 Dose: 10 units Insulin Aspart (Novolog) 10 units SQ NOW ONE Stop: 10/20/19 10:21 Insulin Detemir (Levemir Vial) 5 units SQ BID@0700,2200 [facility] Lactobacillus Acidophilus (Bacid -) 1 tab PO DAILY [facility] Last Admin: 10/20/19 10:35 Dose: 1 tab Lamivudine (Epivir -) 300 mg PO DAILY [facility] Last Admin: 10/20/19 10:38 Dose: 300 mg Levalbuterol HCl (Xopenex) 0.63 mg IH Q8H [facility] Losartan Potassium (Cozaar -) 25 mg PO DAILY [facility] Last Admin: 10/20/19 10:38 Dose: Not Given Methylprednisolone Sodium Succinate (Solu-Medrol -) 40 mg IVPUSH Q8H [facility] Last Admin: 10/20/19 10:35 Dose: 40 mg Mirtazapine (Remeron -) 15 mg PO HS [facility] Last Admin: 10/19/19 21:51 Dose: 15 mg Multivitamins (Total B With C -) 1 each PO DAILY [facility] Last Admin: 10/20/19 10:35 Dose: 1 each Oseltamivir Phosphate (Tamiflu -) 75 mg PO BID [facility] Stop: 10/22/19 21:59 Last Admin: 10/20/19 10:35 Dose: 75 mg Pantoprazole Sodium (Protonix -) 40 mg PO DAILY [facility] Last Admin: 10/20/19 10:39 Dose: Not Given Ritonavir (Norvir -) 100 mg PO DAILY [facility] Last Admin: 10/20/19 10:37 Dose: 100 mg Trimethoprim/Sulfamethoxazole (Bactrim Ds -) 1 each PO MoWeFr@1000 [facility] Last Admin: 10/19/19 09:46 Dose: 1 each Valacyclovir HCl (Valtrex -) 1,000 mg PO DAILY [facility] Last Admin: 10/20/19 10:35 Dose: 1,000 mg Zolpidem Tartrate (Ambien -) 5 mg PO HS PRN PRN Reason: INSOMNIA Last Admin: 10/19/19 21:57 Dose: 5 mg - Objective Vital Signs: Vital Signs Temperature 98.1 F 10/20/19 09:08 Pulse Rate 118 H 10/20/19 09:08 Respiratory Rate 18 10/20/19 09:08 Blood Pressure 150/94 10/20/19 09:08 O2 Sat by Pulse Oximetry (%) 95 10/19/19 21:00 Constitutional: Yes: Well Nourished, Calm Eyes: Yes: WNL HENT: Yes: WNL Neck: Yes: WNL Cardiovascular: Yes: Regular Rate and Rhythm, S1, S2 Respiratory: Yes: Rhonchi, Wheezes (BILATERAL WHEEZES AND RHONCHI) Gastrointestinal: Yes: Normal Bowel Sounds, Soft Extremities: Yes: WNL Edema: No Labs: CBC, BMP 10/20/19 06:35 10/20/19 06:35 INR, PTT INR 1.02 (0.83-1.09) 10/16/19 18:31 Assessment/Plan Problem List - Problems (1) Influenza B Code(s): J10.1 - FLU DUE TO OTH IDENT INFLUENZA VIRUS W OTH RESP MANIFEST (2) AIDS Code(s): B20 - HUMAN IMMUNODEFICIENCY VIRUS [HIV] DISEASE (3) FELIZ (acute kidney injury) Code(s): N17.9 - ACUTE KIDNEY FAILURE, UNSPECIFIED (4) COPD exacerbation Code(s): J44.1 - CHRONIC OBSTRUCTIVE PULMONARY DISEASE W (ACUTE) EXACERBATION (5) Cough Code(s): R05 - COUGH (6) Diarrhea Code(s): R19.7 - DIARRHEA, UNSPECIFIED Qualifiers: Diarrhea type: unspecified type Qualified Code(s): R19.7 - Diarrhea, unspecified (7) Hypertension Code(s): I10 - ESSENTIAL (PRIMARY) HYPERTENSION (8) COPD (chronic obstructive pulmonary disease) Code(s): J44.9 - CHRONIC OBSTRUCTIVE PULMONARY DISEASE, UNSPECIFIED (9) Peripheral neuropathy Code(s): G62.9 - POLYNEUROPATHY, UNSPECIFIED Assessment/Plan Increase Medrol to q6 Supplemental O2 as needed Tamiflu BD TX standing and PRN VTE prophylaxis DR BELLA
[2019-10-20] MEDS ORDERED: FLUCONAZOLE 100 MG TABLET (UD) PO SCH (11:15)
[2019-10-20 11:48] LABS: ANISOCYTOSIS 1+; MACROCYTOSIS 0; PLATELET ESTIMATE NORMAL
[2019-10-20] MEDS ORDERED: ALBUTEROL SO4 2.5/IPRATROPIUM 0.5 INH SOL 3 ML VIAL.NEB. NEB SCH (12:00)
[2019-10-20] MEDS: LEVALBUTEROL HCL 0.63 MG/3 ML VIAL.NEB. IH SCH ×2 (12:00→20:40)
[2019-10-20] MEDS: ABACAVIR SULFATE 300 MG TABLET PO SCH (12:50)
--- NOTE | 2019-10-20 14:01 | PN ---
Teaching Attending Note Name of Resident: Kayden Morris ATTENDING PHYSICIAN STATEMENT I saw and evaluated the patient. I reviewed the resident's note and discussed the case with the resident. I agree with the resident's findings and plan as documented. SUBJECTIVE: Patient seen and examined at bedside, still feels chest tightness but speaking in full sentences, Oral thrush on exam. VS otherwise stable. OBJECTIVE: GENERAL:AAox3, speaking in full sentences, occasional cough, NAD HEAD: NC/At EYES: PERRL, extraocular movements intact, ENT: Ears normal, nares patent, MMM, trace oral thrush on tongue edges NECK: supple. LUNGS: end expiratory wheezes bilaterally, moving air b/l HEART: sinus tachy , S1, S2 without murmur, rub or gallop. ABDOMEN: obese,Soft, nontender, nondistended, normoactive bowel sounds, EXTREMITIES: 2+ pulses, warm, well-perfused, no edema. NEUROLOGICAL: no focal deficit Vital Signs - 24 hr 10/19/19 10/19/19 10/19/19 14:13 18:00 21:00 Temperature 98.0 F 98.4 F Pulse Rate 113 H 116 H Respiratory 20 20 Rate Blood Pressure 118/59 L 141/79 O2 Sat by Pulse 95 Oximetry (%) 10/20/19 10/20/19 10/20/19 00:00 06:00 09:08 Temperature 98.1 F 97.5 F L 98.1 F Pulse Rate 106 H 79 118 H Respiratory 20 20 18 Rate Blood Pressure 139/86 154/99 150/94 O2 Sat by Pulse Oximetry (%) Microbiology 10/16/19 18:35 Blood - Peripheral Venous Blood Culture - Preliminary NO GROWTH OBTAINED AFTER 72 HOURS, INCUBATION TO CONTINUE FOR 2 DAYS. 10/16/19 18:31 Blood - Peripheral Venous Blood Culture - Preliminary NO GROWTH OBTAINED AFTER 72 HOURS, INCUBATION TO CONTINUE FOR 2 DAYS. 10/18/19 10:50 Stool Cryptosporidium Antigen - Final 10/18/19 10:50 Stool Giardia Antigen (JUSTINA) - Final 10/16/19 21:15 Urine - Urine Clean Catch Urine Culture - Final Escherichia Coli Laboratory Results - last 24 hr 10/19/19 10/20/19 10/20/19 11:27 06:35 06:35 WBC 8.8 RBC 3.39 L Hgb 10.4 L Hct 31.5 L MCV 92.9 MCH 30.6 MCHC 33.0 RDW 18.2 H Plt Count 204 MPV 8.3 Absolute Neuts (auto) 6.8 Neutrophils % 77.7 Neutrophils % (Manual) 75.5 Band Neutrophils % 5.1 Lymphocytes % 13.3 D Lymphocytes % (Manual) 15.3 Monocytes % 8.4 Monocytes % (Manual) 1 L D Eosinophils % 0.0 Eosinophils % (Manual) 0.0 Basophils % 0.6 Basophils % (Manual) 0.0 Myelocytes % (Man) 0 D Promyelocytes % (Man) 1 D Blast Cells % (Manual) 0 Nucleated RBC % 2 H Metamyelocytes 0 D Hypochromia 0 Platelet Estimate Normal Polychromasia 1+ Poikilocytosis 0 Basophilic Stippling 1+ Anisocytosis 1+ Microcytosis 1+ Macrocytosis 0 Sodium 138 Potassium 3.9 Chloride 107 Carbon Dioxide 21 Anion Gap 10 BUN 24.5 H Creatinine 1.4 H Est GFR (CKD-EPI)AfAm 46.23 Est GFR (CKD-EPI)NonAf 39.89 POC Glucometer Random Glucose 440 H* Calcium 8.6 Free T3 1.8 L Total T3 73.00 10/20/19 09:07 WBC RBC Hgb Hct MCV MCH MCHC RDW Plt Count MPV Absolute Neuts (auto) Neutrophils % Neutrophils % (Manual) Band Neutrophils % Lymphocytes % Lymphocytes % (Manual) Monocytes % Monocytes % (Manual) Eosinophils % Eosinophils % (Manual) Basophils % Basophils % (Manual) Myelocytes % (Man) Promyelocytes % (Man) Blast Cells % (Manual) Nucleated RBC % Metamyelocytes Hypochromia Platelet Estimate Polychromasia Poikilocytosis Basophilic Stippling Anisocytosis Microcytosis Macrocytosis Sodium Potassium Chloride Carbon Dioxide Anion Gap BUN Creatinine Est GFR (CKD-EPI)AfAm Est GFR (CKD-EPI)NonAf POC Glucometer 470 Random Glucose Calcium Free T3 Total T3 Home Medications Medication Instructions Recorded Lactobacillus Acidophilus [Bacid -] 1 tab PO DAILY 28 Days #28 tab 10/04/18 Albuterol Sulfate Inhaler - 1 - 2 inh PO Q4H PRN #1 inhaler 04/02/19 [Ventolin HFA Inhaler -] Albuterol 0.083% Nebulizer Olivia 1 neb NEB Q6H PRN #120 vial 08/05/19 [Ventolin 0.083% Nebulizer Soln -] Budesonide/Formeterol Fumarate 2 inh PO BID #1 cannister 08/09/19 [SYMBICORT 80/4.5mcg -] Levalbuterol HCl [Xopenex] 0.63 mg IH QID #4 box 08/09/19 Levalbuterol Tartrate 15 gm IH QID #1 inhaler 08/12/19 [Levalbuterol Tartrate Hfa] Tiotropium [place] [Spiriva 4 gm IH DAILY #1 mist.inhal 08/18/19 Respimat] Valacyclovir HCl [Valtrex -] 1,000 mg PO BID #28 tablet 08/23/19 Abacavir Sulfate/Lamivudine 1 each PO DAILY #30 tablet 09/06/19 [Abacavir-Lamivudine 600-300 mg] Darunavir Ethanolate [Prezista -] 800 mg PO DAILY #30 tablet 09/06/19 Ritonavir 100 mg PO DAILY #30 tablet 09/06/19 Ergocalciferol (Vitamin D2) 50,000 unit PO WEEKLY #4 capsule 09/29/19 [Vitamin D2] Mirtazapine 15 mg PO HS #30 tablet 09/29/19 Vitamin B Complex [B Complex] 1 each PO DAILY #30 tablet 09/29/19 Zolpidem Tartrate [Ambien] 5 mg PO HS PRN #15 tablet MDD 1 09/29/19 Diclofenac Sodium [Voltaren] 100 gm TP BID #1 gel..gram. 10/06/19 Gabapentin 300 mg PO BID #60 capsule 10/06/19 Losartan Potassium [Cozaar -] 25 mg PO DAILY #30 tablet 10/06/19 Methocarbamol [Robaxin -] 500 mg PO BID PRN #15 tablet 10/13/19 Oxycodone HCl/Acetaminophen 1 each PO TID PRN #20 tablet MDD 3 10/13/19 [Endocet 5-325 Tablet] Current Medications Generic Name Dose Route Start Last Admin Trade Name Freq PRN Reason Stop Dose Admin Abacavir Sulfate 600 mg 10/17/19 10:00 10/20/19 12:50 Ziagen - PO 600 mg DAILY SHERI Administration Albuterol/Ipratropium 1 amp 10/20/19 09:41 Duoneb - NEB Q6H PRN SHORTNESS OF BREATH Darunavir 800 mg 02/10/20 10:00 10/20/19 10:36 Prezista - PO 800 mg DAILY SHERI Administration Gabapentin 300 mg 10/17/19 10:00 10/20/19 10:36 Neurontin - PO 300 mg BID SHERI Administration Guaifenesin 10 ml 10/18/19 16:02 10/19/19 09:57 Robitussin - PO 10 ml Q6H PRN Administration COUGH Heparin Sodium (Porcine) 5,000 unit 10/17/19 06:00 10/20/19 06:01 Heparin - SQ 5,000 unit TID SHERI Administration Insulin Aspart 1 vial 10/20/19 11:00 10/20/19 10:39 Novolog Vial Sliding Scale - SQ 10 units ACHS SHERI Administration Protocol Insulin Detemir 5 units 10/20/19 10:30 10/20/19 12:49 Levemir Vial SQ 5 units BID@0700,2200 SHERI Administration Lactobacillus Acidophilus 1 tab 10/17/19 10:00 10/20/19 10:35 Bacid - PO 1 tab DAILY SHERI Administration Lamivudine 300 mg 10/17/19 10:00 10/20/19 10:38 Epivir - PO 300 mg DAILY SHERI Administration Levalbuterol HCl 0.63 mg 10/20/19 10:15 Xopenex IH Q8H SHERI Losartan Potassium 25 mg 10/17/19 10:00 10/20/19 10:38 Cozaar - PO Not Given DAILY [facility] Methylprednisolone Sodium Succinate 40 mg 10/20/19 15:00 Solu-Medrol - IVPUSH Q6H-IV SHERI Mirtazapine 15 mg 10/17/19 22:00 10/19/19 21:51 Remeron - PO 15 mg HS SHERI Administration Multivitamins 1 each 10/17/19 10:00 10/20/19 10:35 Total B With C - PO 1 each DAILY SHERI Administration Oseltamivir Phosphate 75 mg 10/17/19 22:00 10/20/19 10:35 Tamiflu - PO 10/22/19 21:59 75 mg BID SHERI Administration Pantoprazole Sodium 40 mg 10/17/19 10:00 10/20/19 10:39 Protonix - PO Not Given DAILY SHERI Ritonavir 100 mg 10/17/19 10:00 10/20/19 10:37 Norvir - PO 100 mg DAILY SHERI Administration Trimethoprim/Sulfamethoxazole 1 each 10/17/19 10:00 10/19/19 09:46 Bactrim Ds - PO 1 each MoWeFr@1000 SHERI Administration Valacyclovir HCl 1,000 mg 10/19/19 10:00 10/20/19 10:35 Valtrex - PO 1,000 mg DAILY SHERI Administration Zolpidem Tartrate 5 mg 10/16/19 22:52 10/19/19 21:57 Ambien - PO 5 mg HS PRN Administration INSOMNIA ASSESSMENT AND PLAN: 64 F HIV on HAART, asthma, HTN, HLD, GERD, COPD not on O2, admitted for COPDE and found to have influenza +. Acute COPDE complicated by influenza B+ cont. droplet isolation cont. Tamiflu renal dose change albuterol to Levalbuterol (less tachycardia and patient takes this med at home feels better when using it) increase Solumedrol to 40mg Q6H Finish Z pack Pulmonary consult: Dr Crouch HIV continue home medications Bactrim DS MWF ID consult: Dr Ivey FELIZ resolved , likely pre renal CRE 1.5 (baseline 0.9-1.2) Acute on chronic cough cough suppressants PRN endorses some hoarseness, and some dysphagia, ?oral thrush with esophageal involvement, will consider starting Oral fluconazole HTN cont. BP meds GERD cont. PPI Abnormal TFTs low TSH, low Ft3, low normal FT4, likely 2/2 Euthyroid sick syndrome in view of recent Flu URI with sepsis, treat underlying cause and repeat TFTs in 6-8 weeks DVT ppx: Heparin SC continue tele monitoring
[2019-10-20] MEDS: MIRTAZAPINE 15 MG TABLET (FP) PO SCH (22:07)
[2019-10-20] MEDS: INSULIN (LEVEMIR) 100 UNITS/ML UNITS SQ SCH (22:09)
[2019-10-20] MEDS: ZOLPIDEM TARTRATE 5 MG TABLET PO PRN (22:18)
[2019-10-21] MEDS: methylPREDNISolone NA SUCC 40 MG/1 ML VIAL IVPUSH SCH ×4 (03:20→21:34)
--- NOTE | 2019-10-21 06:23 | PN ---
Physical Exam: SUBJECTIVE: Patient seen and examined no acute events over night denies any fever or chills, chest pain is better , still some congestion increase steroids to Q 6hr TSH is low will repeat as out pt after acute phase order Ft3 1.8 , ft4 0.9 will repeat as out pt BGM 400 this MA will start ISS and increase levemir to 15 bid oral thrush start nystatin OBJECTIVE: Vital Signs Period Temp Pulse Resp BP Sys/[place] Pulse Ox Last 24 Hr 97.3 F-98.4 F 78-118 18-20 144-152/85-100 94-95 GENERAL:AAO3 , IN NAD on droplet isolation HEAD: NC/At EYES: PERRL, extraocular movements intact, ENT: Ears normal, nares patent, oropharynx clear without exudates, moist mucous membranes. NECK: supple. LUNGS: Breath sounds equal, clear to auscultation bilaterally, some wheezes at the bases , no crackles, no accessory muscle use. HEART: sinus tachy , S1, S2 without murmur, rub or gallop. ABDOMEN: obese,Soft, nontender, nondistended, normoactive bowel sounds, EXTREMITIES: 2+ pulses, warm, well-perfused, no edema. NEUROLOGICAL: no focal deficit Laboratory Results - last 24 hr 10/20/19 10/20/19 10/20/19 06:35 06:35 09:07 WBC 8.8 RBC 3.39 L Hgb 10.4 L Hct 31.5 L MCV 92.9 MCH 30.6 MCHC 33.0 RDW 18.2 H Plt Count 204 MPV 8.3 Absolute Neuts (auto) 6.8 Neutrophils % 77.7 Neutrophils % (Manual) 75.5 Band Neutrophils % 5.1 Lymphocytes % 13.3 D Lymphocytes % (Manual) 15.3 Monocytes % 8.4 Monocytes % (Manual) 1 L D Eosinophils % 0.0 Eosinophils % (Manual) 0.0 Basophils % 0.6 Basophils % (Manual) 0.0 Myelocytes % (Man) 0 D Promyelocytes % (Man) 1 D Blast Cells % (Manual) 0 Nucleated RBC % 2 H Metamyelocytes 0 D Hypochromia 0 Platelet Estimate Normal Polychromasia 1+ Poikilocytosis 0 Basophilic Stippling 1+ Anisocytosis 1+ Microcytosis 1+ Macrocytosis 0 Sodium 138 Potassium 3.9 Chloride 107 Carbon Dioxide 21 Anion Gap 10 BUN 24.5 H Creatinine 1.4 H Est GFR (CKD-EPI)AfAm 46.23 Est GFR (CKD-EPI)NonAf 39.89 POC Glucometer 470 Random Glucose 440 H* Calcium 8.6 10/20/19 10/20/19 17:31 22:06 WBC RBC Hgb Hct MCV MCH MCHC RDW Plt Count MPV Absolute Neuts (auto) Neutrophils % Neutrophils % (Manual) Band Neutrophils % Lymphocytes % Lymphocytes % (Manual) Monocytes % Monocytes % (Manual) Eosinophils % Eosinophils % (Manual) Basophils % Basophils % (Manual) Myelocytes % (Man) Promyelocytes % (Man) Blast Cells % (Manual) Nucleated RBC % Metamyelocytes Hypochromia Platelet Estimate Polychromasia Poikilocytosis Basophilic Stippling Anisocytosis Microcytosis Macrocytosis Sodium Potassium Chloride Carbon Dioxide Anion Gap BUN Creatinine Est GFR (CKD-EPI)AfAm Est GFR (CKD-EPI)NonAf POC Glucometer 480 457 Random Glucose Calcium Active Medications Generic Name Dose Route Start Last Admin Trade Name Freq PRN Reason Stop Dose Admin Abacavir Sulfate 600 mg 10/17/19 10:00 10/20/19 12:50 Ziagen - PO 600 mg DAILY SHERI Administration Albuterol/Ipratropium 1 amp 10/20/19 09:41 Duoneb - NEB Q6H PRN SHORTNESS OF BREATH Darunavir 800 mg 10/17/19 10:00 10/20/19 10:36 Prezista - PO 800 mg DAILY SHERI Administration Gabapentin 300 mg 10/17/19 10:00 10/20/19 22:08 Neurontin - PO 300 mg BID SHERI Administration Guaifenesin 10 ml 10/18/19 16:02 10/19/19 09:57 Robitussin - PO 10 ml Q6H PRN Administration COUGH Heparin Sodium (Porcine) 5,000 unit 10/17/19 06:00 10/20/19 22:10 Heparin - SQ 5,000 unit TID SHERI Administration Insulin Aspart 1 vial 10/20/19 11:00 10/20/19 22:10 Novolog Vial Sliding Scale - SQ 10 units ACHS SHERI Administration Protocol Insulin Detemir 10 units 10/20/19 22:00 10/20/19 22:09 Levemir Vial SQ 10 units 0700,2200 SHERI Administration Lactobacillus Acidophilus 1 tab 10/17/19 10:00 10/20/19 10:35 Bacid - PO 1 tab DAILY SHERI Administration Lamivudine 300 mg 10/17/19 10:00 10/20/19 10:38 Epivir - PO 300 mg DAILY SHERI Administration Levalbuterol HCl 0.63 mg 10/20/19 22:54 Xopenex IH RTID SHERI Losartan Potassium 25 mg 10/17/19 10:00 10/20/19 10:38 Cozaar - PO Not Given DAILY SHERI Methylprednisolone Sodium Succinate 40 mg 10/20/19 15:00 10/21/19 03:20 Solu-Medrol - IVPUSH 40 mg Q6H-IV SHERI Administration Mirtazapine 15 mg 10/17/19 22:00 10/20/19 22:07 Remeron - PO 15 mg HS SHERI Administration Multivitamins 1 each 10/17/19 10:00 10/20/19 10:35 Total B With C - PO 1 each DAILY SHERI Administration Oseltamivir Phosphate 75 mg 10/17/19 22:00 10/20/19 22:07 Tamiflu - PO 10/22/19 21:59 75 mg BID SHERI Administration Pantoprazole Sodium 40 mg 10/17/19 10:00 10/20/19 10:39 Protonix - PO Not Given DAILY SHERI Ritonavir 100 mg 10/17/19 10:00 10/20/19 10:37 Norvir - PO 100 mg DAILY SHERI Administration Trimethoprim/Sulfamethoxazole 1 each 10/17/19 10:00 10/19/19 09:46 Bactrim Ds - PO 1 each MoWeFr@1000 SHERI Administration Valacyclovir HCl 1,000 mg 10/19/19 10:00 10/20/19 10:35 Valtrex - PO 1,000 mg DAILY SHERI Administration Zolpidem Tartrate 5 mg 10/16/19 22:52 10/20/19 22:18 Ambien - PO 5 mg HS PRN Administration INSOMNIA CBC, BMP 10/21/19 06:30 10/21/19 06:30 ASSESSMENT/PLAN: Uzma Monroe is a 64 year old female with a past medical history of HIV ( CD4 104, viral load 70), HTN, HLD, COPD, GERD admitted for COPD exacerbation secondary to influenza B. # sepsis 2/2 influneza B + , improved * cont ghada flue * cont abx prophylaxis # Acute COPD Exacerbation 2/2 Influenza B+ * droplet isolation * Tamiflue renal dose * duoneb and labuterol * pulmonary consulted increase steroids Sulomedrol to 40 Q 6 hr * Spiriva daily * azithromycin 500mg once and continue azithromycin 250mg daily * PPI as on steroids # Hyperglycemia 2/2 steroids use started on ISS and levimer 15 BID * order A1c 7.8 * propably has DM and did not know vs induce by steroids use #HIV * continue home medications * Bactrim DS MWF * ID consulted # oral thrush due to steroids vs HIV start Nystatin #FELIZ, resolved , likely pre renal * CRE 1.5 (baseline 0.9-1.2) # cough start Robutossin # Hoarsness in her voice due to flue , cont treatment #HTN * continue home losartan #GERD * cont Protonix # weight gain , pt reports she gain 100 pound during alst year she needs to folow up with endocrinology as out pt. #DVT PPx * heparin 5000 units subq tid # Sinys tachy cardia due to flue vs albuterol SE * TSH low will repeat as out pt after acute phase * Ft3 , Ft4 noted repeat as out pt # UTI : no signs UTI negative UA, 30k colony count - no need to treat per ID #FEN * NS 2.5L bolus due to septic vitals, * continue to monitor electrolytes and replete as necessary, hypokalemia noted and repleted * Sodium controlled diet Visit type - Emergency Visit Emergency Visit: Yes ED Registration Date: 10/16/19 Care time: The patient presented to the Emergency Department on the above date and was hospitalized for further evaluation of their emergent condition. - New Patient This patient is new to me today: No - Critical Care Critical Care patient: No ATTENDING PHYSICIAN STATEMENT I saw and evaluated the patient. I reviewed the resident's note and discussed the case with the resident. I agree with the resident's findings and plan as documented. SUBJECTIVE: OBJECTIVE: ASSESSMENT AND PLAN:
[2019-10-21] MEDS: INSULIN SLIDING SCALE (NOVOLOG) 1 VIAL SQ SCH ×4 (06:39→21:35)
[2019-10-21] MEDS: INSULIN (LEVEMIR) 100 UNITS/ML UNITS SQ SCH (06:40)
[2019-10-21] MEDS: HEPARIN NA (PORCINE) 5,000 UNITS/ML 1ML VIAL SQ SCH ×3 (06:40→21:34)
[2019-10-21] MEDS: LEVALBUTEROL HCL 0.63 MG/3 ML VIAL.NEB. IH SCH ×3 (08:00→21:34)
[2019-10-21 08:11] LABS: BASO % 0.6 % (0-2.0); HEMATOCRIT 31.5 % (32.4-45.2); HEMOGLOBIN 10.3 GM/dL (10.7-15.3); MCH 30.3 pg (25.7-33.7); MCHC 32.9 g/dl (32.0-36.0); MEAN CELL VOLUME 92.3 fl (80-96); MEAN PLT VOLUME 8.5 fl (7.5-11.1); MONO % 6.6 % (3.8-10.2); NEUT % 74.8 % (42.8-82.8); PLATELET COUNT 235 K/MM3 (134-434); RBC 3.41 M/mm3 (3.60-5.2); RDW 18.2 % (11.6-15.6); WHITE BLOOD COUNT 10.5 K/mm3 (4.0-10.0)
[2019-10-21 08:46] LABS: ALBUMIN 3.2 g/dl (3.4-5.0); BILIRUBIN,TOTAL 0.3 mg/dL (0.2-1); BLOOD UREA NITROGEN 25.3 mg/dL (7-18); CALCIUM 8.9 mg/dL (8.5-10.1); CREATININE 1.3 mg/dL (0.55-1.3); POTASSIUM 3.9 mmol/L (3.5-5.1); TOT PROT 7.2 g/dl (6.4-8.2)
[2019-10-21 09:16] LABS: ANISOCYTOSIS 1+; MACROCYTOSIS 0; OVALOCYTE 1+; PLATELET ESTIMATE NORMAL; TOXIC GRANULATION 2+
[2019-10-21] MEDS ORDERED: PT OWN MED DRAWER 7, Y5N ONE ×2 (09:23→21:27)
[2019-10-21] MEDS: PANTOPRAZOLE 40 MG TABLET PO SCH (10:05)
[2019-10-21] MEDS: SULFAMETHOXAZOLE/TRIMETHOPRIM 800MG/160MG D.S. TABLET PO SCH (10:06)
[2019-10-21] MEDS: LOSARTAN POTASSIUM 25 MG TABLET PO SCH (10:06)
[2019-10-21] MEDS: GABAPENTIN 300 MG CAPSULE PO SCH ×2 (10:06→21:34)
[2019-10-21] MEDS: LACTOBACILLUS ACIDOPHILUS 1 TABLET PO SCH (10:06)
[2019-10-21] MEDS: valACYclovir HCL 500 MG TABLET (FP) PO SCH (10:06)
[2019-10-21] MEDS: OSELTAMIVIR PHOSPHATE 75 MG CAPSULE PO SCH ×2 (10:07→21:34)
[2019-10-21] MEDS: ABACAVIR SULFATE 300 MG TABLET PO SCH (10:08)
[2019-10-21] MEDS: VITAMIN B COMPLEX W/C COMBO TABLET (FP) PO SCH (10:08)
[2019-10-21] MEDS: RITONAVIR 100 MG TABLET PO SCH (10:09)
[2019-10-21] MEDS: DARUNAVIR ETHANOLATE 800 MG TAB PO SCH (10:09)
--- NOTE | 2019-10-21 11:33 | PN ---
Progress Note, Physician History of Present Illness: pulmonary alert,no change, c/o sob,congestion - Current Medication List Current Medications: Active Medications Abacavir Sulfate (Ziagen -) 600 mg PO DAILY [facility] Last Admin: 10/21/19 10:08 Dose: 600 mg Albuterol/Ipratropium (Duoneb -) 1 amp NEB Q6H PRN PRN Reason: SHORTNESS OF BREATH Darunavir (Prezista -) 800 mg PO DAILY [facility] Last Admin: 10/21/19 10:09 Dose: 800 mg Gabapentin (Neurontin -) 300 mg PO BID [facility] Last Admin: 10/21/19 10:06 Dose: 300 mg Guaifenesin (Robitussin -) 10 ml PO Q6H PRN PRN Reason: COUGH Last Admin: 10/19/19 09:57 Dose: 10 ml Heparin Sodium (Porcine) (Heparin -) 5,000 unit SQ TID [facility] Last Admin: 10/21/19 06:40 Dose: 5,000 unit Insulin Aspart (Novolog Vial Sliding Scale -) 1 vial SQ [facility]; Protocol Last Admin: 10/21/19 06:39 Dose: 8 units Insulin Detemir (Levemir Vial) 10 units SQ 0700,2200 [facility] Last Admin: 10/21/19 06:40 Dose: 10 units Lactobacillus Acidophilus (Bacid -) 1 tab PO DAILY [facility] Last Admin: 10/21/19 10:06 Dose: 1 tab Lamivudine (Epivir -) 300 mg PO DAILY [facility] Last Admin: 10/21/19 10:13 Dose: 300 mg Levalbuterol HCl (Xopenex) 0.63 mg IH RTID [facility] Last Admin: 10/21/19 08:00 Dose: 0.63 mg Losartan Potassium (Cozaar -) 25 mg PO DAILY [facility] Last Admin: 10/21/19 10:06 Dose: 25 mg Methylprednisolone Sodium Succinate (Solu-Medrol -) 40 mg IVPUSH Q6H-IV [facility] Last Admin: 10/21/19 10:05 Dose: 40 mg Mirtazapine (Remeron -) 15 mg PO HS [facility] Last Admin: 10/20/19 22:07 Dose: 15 mg Multivitamins (Total B With C -) 1 each PO DAILY [facility] Last Admin: 10/21/19 10:08 Dose: 1 each Oseltamivir Phosphate (Tamiflu -) 75 mg PO BID [facility] Stop: 10/22/19 21:59 Last Admin: 10/21/19 10:07 Dose: 75 mg Pantoprazole Sodium (Protonix -) 40 mg PO DAILY [facility] Last Admin: 10/21/19 10:05 Dose: 40 mg Ritonavir (Norvir -) 100 mg PO DAILY [facility] Last Admin: 10/21/19 10:09 Dose: 100 mg Trimethoprim/Sulfamethoxazole (Bactrim Ds -) 1 each PO MoWeFr@1000 [facility] Last Admin: 10/21/19 10:06 Dose: 1 each Valacyclovir HCl (Valtrex -) 1,000 mg PO DAILY [facility] Last Admin: 10/21/19 10:06 Dose: 1,000 mg Zolpidem Tartrate (Ambien -) 5 mg PO PRN PRN Reason: INSOMNIA Last Admin: 10/20/19 22:18 Dose: 5 mg - Objective Vital Signs: Vital Signs Temperature 98.8 F 10/21/19 09:01 Pulse Rate 110 H 10/21/19 09:01 Respiratory Rate 18 10/21/19 09:01 Blood Pressure 174/103 H 10/21/19 09:01 O2 Sat by Pulse Oximetry (%) 94 L 10/20/19 21:00 Constitutional: Yes: Well Nourished, Calm Eyes: Yes: WNL HENT: Yes: WNL Neck: Yes: WNL Cardiovascular: Yes: Regular Rate and Rhythm, S1, S2 Respiratory: Yes: Rhonchi (mitzy wheezes and rhonchi), Wheezes Gastrointestinal: Yes: Normal Bowel Sounds, Soft Extremities: Yes: WNL Edema: No Labs: CBC, BMP 10/21/19 06:30 10/21/19 06:30 Assessment/Plan Problem List - Problems (1) Influenza B Code(s): J10.1 - FLU DUE TO OTH IDENT INFLUENZA VIRUS W OTH RESP MANIFEST (2) AIDS Code(s): B20 - HUMAN IMMUNODEFICIENCY VIRUS [HIV] DISEASE (3) FELIZ (acute kidney injury) Code(s): N17.9 - ACUTE KIDNEY FAILURE, UNSPECIFIED (4) COPD exacerbation Code(s): J44.1 - CHRONIC OBSTRUCTIVE PULMONARY DISEASE W (ACUTE) EXACERBATION (5) Cough Code(s): R05 - COUGH (6) Diarrhea Code(s): R19.7 - DIARRHEA, UNSPECIFIED Qualifiers: Diarrhea type: unspecified type Qualified Code(s): R19.7 - Diarrhea, unspecified (7) Hypertension Code(s): I10 - ESSENTIAL (PRIMARY) HYPERTENSION (8) COPD (chronic obstructive pulmonary disease) Code(s): J44.9 - CHRONIC OBSTRUCTIVE PULMONARY DISEASE, UNSPECIFIED (9) Peripheral neuropathy Code(s): G62.9 - POLYNEUROPATHY, UNSPECIFIED Assessment/Plan continue Medrol to q6 Supplemental O2 as needed Tamiflu BD TX standing and PRN VTE prophylaxis DR BELLA
--- NOTE | 2019-10-21 11:52 | PN ---
Teaching Attending Note Name of Resident: Kayden Morris ATTENDING PHYSICIAN STATEMENT I saw and evaluated the patient. I reviewed the resident's note and discussed the case with the resident. I agree with the resident's findings and plan as documented. SUBJECTIVE: Patient seen and examined at bedside, still feels chest tightness but speaking in full sentences, Oral thrush on exam. VS otherwise stable. OBJECTIVE: GENERAL:AAox3, speaking in full sentences, occasional cough, NAD HEAD: NC/At EYES: PERRL, extraocular movements intact, ENT: Ears normal, nares patent, MMM, clear oral mucosa NECK: supple. LUNGS: still wheezing b/l, moving air b/l, no stridor HEART: NSR, S1, S2 without murmur, rub or gallop. ABDOMEN: obese,Soft, nontender, nondistended, normoactive bowel sounds, EXTREMITIES: 2+ pulses, warm, well-perfused, no edema. NEUROLOGICAL: no focal deficit Vital Signs - 24 hr 10/20/19 10/20/19 10/20/19 14:28 18:00 21:00 Temperature 98.4 F 97.8 F Pulse Rate 114 H 78 Respiratory 20 19 Rate Blood Pressure 151/92 152/98 O2 Sat by Pulse 94 L Oximetry (%) 10/20/19 10/21/19 10/21/19 22:00 00:00 06:00 Temperature 97.3 F L Pulse Rate 96 H 107 H Respiratory 20 20 Rate Blood Pressure 150/100 144/85 150/100 O2 Sat by Pulse Oximetry (%) 10/21/19 09:01 Temperature 98.8 F Pulse Rate 110 H Respiratory 18 Rate Blood Pressure 174/103 H O2 Sat by Pulse Oximetry (%) Microbiology 10/16/19 18:35 Blood - Peripheral Venous Blood Culture - Preliminary NO GROWTH OBTAINED AFTER 96 HOURS, INCUBATION TO CONTINUE FOR 1 DAYS. 10/16/19 18:31 Blood - Peripheral Venous Blood Culture - Preliminary NO GROWTH OBTAINED AFTER 96 HOURS, INCUBATION TO CONTINUE FOR 1 DAYS. 10/18/19 10:50 Stool Cryptosporidium Antigen - Final 10/18/19 10:50 Stool Giardia Antigen (JUSTINA) - Final 10/16/19 21:15 Urine - Urine Clean Catch Urine Culture - Final Escherichia Coli Laboratory Results - last 24 hr 02/13/20 02/13/20 02/13/20 06:35 17:31 22:06 WBC RBC Hgb Hct MCV MCH MCHC RDW Plt Count MPV Absolute Neuts (auto) Neutrophils % Neutrophils % (Manual) 75.5 Band Neutrophils % 5.1 Lymphocytes % Lymphocytes % (Manual) 15.3 Monocytes % Monocytes % (Manual) 1 L D Eosinophils % Eosinophils % (Manual) 0.0 Basophils % Basophils % (Manual) 0.0 Myelocytes % (Man) 0 D Promyelocytes % (Man) 1 D Blast Cells % (Manual) 0 Nucleated RBC % 2 H Metamyelocytes 0 D Hypochromia 0 Toxic Granulation Platelet Estimate Normal Platelet Comment Polychromasia 1+ Poikilocytosis 0 Basophilic Stippling 1+ Anisocytosis 1+ Microcytosis 1+ Macrocytosis 0 Spherocytes Ovalocytes Acanthocytes (Spur) Sodium Potassium Chloride Carbon Dioxide Anion Gap BUN Creatinine Est GFR (CKD-EPI)AfAm Est GFR (CKD-EPI)NonAf POC Glucometer 480 457 Random Glucose Hemoglobin A1c % Calcium Total Bilirubin AST ALT Alkaline Phosphatase Total Protein Albumin 10/21/19 10/21/19 10/21/19 06:30 06:30 06:30 WBC 10.5 H RBC 3.41 L Hgb 10.3 L Hct 31.5 L MCV 92.3 MCH 30.3 MCHC 32.9 RDW 18.2 H Plt Count 235 MPV 8.5 Absolute Neuts (auto) 7.9 Neutrophils % 74.8 Neutrophils % (Manual) 62.3 Band Neutrophils % 4.1 Lymphocytes % 18.0 D Lymphocytes % (Manual) 18.4 D Monocytes % 6.6 Monocytes % (Manual) 2 L D Eosinophils % 0.0 Eosinophils % (Manual) 0.0 Basophils % 0.6 Basophils % (Manual) 0.0 Myelocytes % (Man) 5 H D Promyelocytes % (Man) 2 D Blast Cells % (Manual) 0 Nucleated RBC % 4 H Metamyelocytes 1 D Hypochromia 0 Toxic Granulation 2+ Platelet Estimate Normal Platelet Comment Present Polychromasia 1+ Poikilocytosis 1+ Basophilic Stippling Anisocytosis 1+ Microcytosis 1+ Macrocytosis 0 Spherocytes 1+ Ovalocytes 1+ Acanthocytes (Spur) 1+ Sodium 138 Potassium 3.9 Chloride 106 Carbon Dioxide 24 Anion Gap 8 BUN 25.3 H Creatinine 1.3 Est GFR (CKD-EPI)AfAm 50.56 Est GFR (CKD-EPI)NonAf 43.62 POC Glucometer Random Glucose 339 H Hemoglobin A1c % 7.8 H Calcium 8.9 Total Bilirubin 0.3 AST 26 ALT 59 Alkaline Phosphatase 121 H Total Protein 7.2 Albumin 3.2 L 10/21/19 06:33 WBC RBC Hgb Hct MCV MCH MCHC RDW Plt Count MPV Absolute Neuts (auto) Neutrophils % Neutrophils % (Manual) Band Neutrophils % Lymphocytes % Lymphocytes % (Manual) Monocytes % Monocytes % (Manual) Eosinophils % Eosinophils % (Manual) Basophils % Basophils % (Manual) Myelocytes % (Man) Promyelocytes % (Man) Blast Cells % (Manual) Nucleated RBC % Metamyelocytes Hypochromia Toxic Granulation Platelet Estimate Platelet Comment Polychromasia Poikilocytosis Basophilic Stippling Anisocytosis Microcytosis Macrocytosis Spherocytes Ovalocytes Acanthocytes (Spur) Sodium Potassium Chloride Carbon Dioxide Anion Gap BUN Creatinine Est GFR (CKD-EPI)AfAm Est GFR (CKD-EPI)NonAf POC Glucometer 326 Random Glucose Hemoglobin A1c % Calcium Total Bilirubin AST ALT Alkaline Phosphatase Total Protein Albumin Current Medications Generic Name Dose Route Start Last Admin Trade Name Freq PRN Reason Stop Dose Admin Abacavir Sulfate 600 mg 10/17/19 10:00 10/21/19 10:08 Ziagen - PO 600 mg DAILY SHERI Administration Albuterol/Ipratropium 1 amp 10/20/19 09:41 Duoneb - NEB Q6H PRN SHORTNESS OF BREATH Darunavir 800 mg 10/17/19 10:00 10/21/19 10:09 Prezista - PO 800 mg DAILY SHERI Administration Gabapentin 300 mg 10/17/19 10:00 10/21/19 10:06 Neurontin - PO 300 mg BID SHERI Administration Guaifenesin 10 ml 10/18/19 16:02 10/19/19 09:57 Robitussin - PO 10 ml Q6H PRN Administration COUGH Heparin Sodium (Porcine) 5,000 unit 10/17/19 06:00 10/21/19 06:40 Heparin - SQ 5,000 unit TID SHERI Administration Insulin Aspart 1 vial 10/20/19 11:00 10/21/19 06:39 Novolog Vial Sliding Scale - SQ 8 units ACHS SHERI Administration Protocol Insulin Aspart 10 units 10/21/19 16:30 Novolog Vial SQ ACHS SHERI Protocol Insulin Detemir 15 units 10/21/19 11:47 Levemir Vial SQ 0700,2200 [facility] Lactobacillus Acidophilus 1 tab 10/17/19 10:00 10/21/19 10:06 Bacid - PO 1 tab DAILY SHERI Administration Lamivudine 300 mg 10/17/19 10:00 10/21/19 10:13 Epivir - PO 300 mg DAILY SHERI Administration Levalbuterol HCl 0.63 mg 10/20/19 22:54 10/21/19 08:00 Xopenex IH 0.63 mg RTID SHERI Administration Losartan Potassium 25 mg 10/17/19 10:00 10/21/19 10:06 Cozaar - PO 25 mg DAILY SHERI Administration Methylprednisolone Sodium Succinate 40 mg 10/20/19 15:00 10/21/19 10:05 Solu-Medrol - IVPUSH 40 mg Q6H-IV SHERI Administration Mirtazapine 15 mg 10/17/19 22:00 10/20/19 22:07 Remeron - PO 15 mg HS SHERI Administration Multivitamins 1 each 10/17/19 10:00 10/21/19 10:08 Total B With C - PO 1 each DAILY SHERI Administration Oseltamivir Phosphate 75 mg 10/17/19 22:00 10/21/19 10:07 Tamiflu - PO 10/22/19 21:59 75 mg BID SHERI Administration Pantoprazole Sodium 40 mg 10/17/19 10:00 10/21/19 10:05 Protonix - PO 40 mg DAILY SHERI Administration Ritonavir 100 mg 10/17/19 10:00 10/21/19 10:09 Norvir - PO 100 mg DAILY SHERI Administration Trimethoprim/Sulfamethoxazole 1 each 10/17/19 10:00 10/21/19 10:06 Bactrim Ds - PO 1 each MoWeFr@1000 SHERI Administration Valacyclovir HCl 1,000 mg 10/19/19 10:00 10/21/19 10:06 Valtrex - PO 1,000 mg DAILY SHERI Administration Zolpidem Tartrate 5 mg 10/16/19 22:52 10/20/19 22:18 Ambien - PO 5 mg HS PRN Administration INSOMNIA ASSESSMENT AND PLAN: 64 F HIV on HAART, asthma, HTN, HLD, GERD, COPD not on O2, admitted for COPDE and found to have influenza +. Acute COPDE complicated by influenza B+ cont. droplet isolation cont. Tamiflu renal dose cont. Levalbuterol (less tachycardia and patient takes this med at home feels better when using it) cont. Solumedrol to 40mg Q6H finished course of abx Pulmonary consult: Dr Crouch New onset T2DM A1c 7.8% ISS with premeal and basal insulin Endo consult: Dr Everett HIV continue home medications Bactrim DS MWF ID consult: Dr Ivey FELIZ resolved , likely pre renal CRE 1.5 (baseline 0.9-1.2) Acute on chronic cough improved, Robitussin PRN HTN cont. BP meds GERD cont. PPI Abnormal TFTs low TSH, low Ft3, low normal FT4, likely 2/2 Euthyroid sick syndrome in view of recent Flu URI with sepsis, treat underlying cause and repeat TFTs in 6-8 weeks Endo evaluation DVT ppx: Heparin SC continue tele monitoring
[2019-10-21 14:11] VITALS: BMI 27.7
--- NOTE | 2019-10-21 14:25 | PN ---
Progress Note (short form) - Note Progress Note: conitnues to wheeze diarrhea resolved Vital Signs Period Temp Pulse Resp BP Sys/Inman Pulse Ox Last 24 Hr 97.3 F-98.8 F 78-115 18-20 144-174/85-106 94-95 +thrush cor-rrr lungs bilateral rhonchi and wheeze abd soft,nt ext trace edema CBC, BMP 10/21/19 06:30 10/21/19 06:30 Microbiology 10/16/19 18:35 Blood - Peripheral Venous Blood Culture - Preliminary NO GROWTH OBTAINED AFTER 96 HOURS, INCUBATION TO CONTINUE FOR 1 DAYS. 10/16/19 18:31 Blood - Peripheral Venous Blood Culture - Preliminary NO GROWTH OBTAINED AFTER 96 HOURS, INCUBATION TO CONTINUE FOR 1 DAYS. 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
[2019-10-21] MEDS: INSULIN (NOVOLOG) ASPART 100 UNITS/ML 10ML VIAL SQ SCH ×2 (17:00→21:35)
[2019-10-21] MEDS: NYSTATIN 500,000 UNITS/5 ML SUSPENSION PO SCH ×2 (17:43→23:02)
[2019-10-21] MEDS: ZOLPIDEM TARTRATE 5 MG TABLET PO PRN (21:34)
[2019-10-21] MEDS: MIRTAZAPINE 15 MG TABLET (FP) PO SCH (21:36)
[2019-10-21] MEDS: guaiFENesin 200 MG/10 ML 10 ML UNIT-DOSE CUPS PO PRN (21:36)
[2019-10-21] MEDS ORDERED: INSULIN (LEVEMIR) 100 UNITS/ML UNITS SQ SCH (22:00)
--- NOTE | 2019-10-22 00:53 | CONSULT ---
Consult Consult Specialty:: endocrine Referred by:: Dr.Joseph Peterson Reason for Consultation:: dmt2 - History of Present Illness Chief Complaint: shortness of breath and weight gain History of Present Illness: 64 year old female with a past medical history of HIV (09/29/19 CD4 104, viral load 70), HTN, HLD, COPD, GERD admitted with weakness, shortness of breath, dyspnea on exertion, nausea, diarrhea, chills. She has had dmt2 but pill controlled has had gradual weight gain,over past several months over 40lbs.since then has had worsening shortness of breath and difficulty breathing. - Past Medical History DIRECTOR MEDICAL: Yes: Peripheral Neuropathy. No: Alzheimer's, CVA, Dementia, Migraine, Multiple Sclerosis, Parkinson's, Seizure, Syncope, TIA, Vertigo, Other Pulmonary: Yes: Bronchitis, COPD, O2 Dependent, Pneumonia. No: Asthma, Cancer, Previously Intubated, Pulmonary Embolus, Pulmonary Fibrosis, Sleep Apnea Gastrointestinal: Yes: Other (Meredith Esophagitis from EGD 06/19/14). No: Ascites, Cancer, Constipation, Crohn's Disease, Diverticulitis, Diverticulosis, Esophageal Varices, Gastritis, GERD, GI Bleed, Hemorrhoids, Hiatal Hernia, Inflamatory Bowel Disease, Irritable Bowel Disease, Pancreatitis, Peptic Ulcer Disease, Ulcerative Colitis ...LMP: 01/04/15 Infectious Disease: Yes: AIDS, HIV, STD's Psych: Yes: Other (anorexia) Additional Medical History: Neuropathy of the feet. anorexia. breast cyst removed. ovarian cyst removed. c/s for twins - Past Surgical History Past Surgical History: Yes: Breast Biopsy, , Tonsillectomy - Alcohol/Substance Use Hx Alcohol Use: Yes (rare - social) History of Substance Use: reports: None - Smoking History Smoking history: Former smoker Have you smoked in the past 12 months: No Aproximately how many cigarettes per day: 2 If you are a former smoker, when did you quit?: 2 months ago - Social History Usual Living Arrangement: With Child ADL: Independent Occupation: on disability History of Recent Travel: Yes ([place] 07/13 to 07/18) Home Medications - Allergies Allergies/Adverse Reactions: Allergies Allergy/AdvReac Type Severity Reaction Status Date / Time Penicillins Allergy Severe Swelling Verified 10/16/19 17:22 MAY[place]ISE AdvReac Uncoded 10/16/19 17:22 - Home Medications Home Medications: Ambulatory Orders Lactobacillus Acidophilus [Bacid -] 1 tab PO DAILY 28 Days #28 tab 10/04/18 Albuterol Sulfate Inhaler - [Ventolin HFA Inhaler -] 1 - 2 inh PO Q4H PRN #1 inhaler 04/02/19 Albuterol 0.083% Nebulizer Olivia [Ventolin 0.083% Nebulizer Soln -] 1 neb NEB Q6H PRN #120 vial 08/05/19 Budesonide/Formeterol Fumarate [SYMBICORT 80/4.5mcg -] 2 inh PO BID #1 cannister 08/09/19 Levalbuterol HCl [Xopenex] 0.63 mg IH QID #4 box 08/09/19 Levalbuterol Tartrate [Levalbuterol Tartrate Hfa] 15 gm IH QID #1 inhaler Tiotropium [place] [Spiriva Respimat] 4 gm IH DAILY #1 mist.inhal 08/18/19 Valacyclovir HCl [Valtrex -] 1,000 mg PO BID #28 tablet 08/23/19 Abacavir Sulfate/Lamivudine [Abacavir-Lamivudine 600-300 mg] 1 each PO DAILY # 30 tablet 09/06/19 Darunavir Ethanolate [Prezista -] 800 mg PO DAILY #30 tablet 09/06/19 Ritonavir 100 mg PO DAILY #30 tablet 09/06/19 Ergocalciferol (Vitamin D2) [Vitamin D2] 50,000 unit PO WEEKLY #4 capsule Mirtazapine 15 mg PO HS #30 tablet 09/29/19 Vitamin B Complex [B Complex] 1 each PO DAILY #30 tablet 09/29/19 Zolpidem Tartrate [Ambien] 5 mg PO HS PRN #15 tablet MDD 1 09/29/19 Diclofenac Sodium [Voltaren] 100 gm TP BID #1 gel..gram. 10/06/19 Gabapentin 300 mg PO BID #60 capsule 10/06/19 Losartan Potassium [Cozaar -] 25 mg PO DAILY #30 tablet 10/06/19 Methocarbamol [Robaxin -] 500 mg PO BID PRN #15 tablet 10/13/19 Oxycodone HCl/Acetaminophen [Endocet 5-325 Tablet] 1 each PO TID PRN #20 tablet MDD 3 10/13/19 Review of Systems - Review of Systems Constitutional: reports: Malaise, Weakness Eyes: reports: Blurred Vision HENT: reports: No Symptoms Neck: reports: Lumps, Swollen Glands, Tenderness Respiratory: reports: Cough, Exercise Intolerance, SOB, SOB on Exertion Gastrointestinal: reports: Bloating, Constipation, Nausea Breasts: reports: No Symptoms Reported Musculoskeletal: reports: Joint Swelling, Muscle Pain, Muscle Cramps, Muscle Weakness Neurological: reports: Numbness Endocrine: reports: Unexplained Weight Gain Physical Exam Vital Signs: Vital Signs Temperature 98.0 F 10/21/19 21:00 Pulse Rate 101 H 10/21/19 21:00 Respiratory Rate 20 10/21/19 21:00 Blood Pressure 169/90 10/21/19 21:00 O2 Sat by Pulse Oximetry (%) 94 L 10/21/19 21:00 Constitutional: Yes: Anxious Eyes: Yes: EOM Intact HENT: Yes: Normocephalic Neck: Yes: Trachea Midline Cardiovascular: Yes: Tachycardia Respiratory: Yes: Cough, SOB on Exertion, Tachypnea, Wheezes Gastrointestinal: Yes: Abdomen, Obese ...Rectal Exam: Yes: Deferred Renal/: Yes: WNL Musculoskeletal: Yes: Muscle Weakness Extremities: Yes: WNL Neurological: Yes: Alert, Oriented Labs: CBC, BMP 10/21/19 06:30 10/21/19 06:30 Problem List - Problems (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 Code(s): E11.618 - TYPE 2 DIABETES MELLITUS WITH OTHER DIABETIC ARTHROPATHY (2) AIDS Code(s): B20 - HUMAN IMMUNODEFICIENCY VIRUS [HIV] DISEASE (3) FELIZ (acute kidney injury) Code(s): N17.9 - ACUTE KIDNEY FAILURE, UNSPECIFIED (4) Abnormal LFTs Code(s): R94.5 - ABNORMAL RESULTS OF LIVER FUNCTION STUDIES (5) Acute exacerbation of COPD with asthma Code(s): J44.1 - CHRONIC OBSTRUCTIVE PULMONARY DISEASE W (ACUTE) EXACERBATION; J45.901 - UNSPECIFIED ASTHMA WITH (ACUTE) EXACERBATION (6) Asthma exacerbation Code(s): J45.901 - UNSPECIFIED ASTHMA WITH (ACUTE) EXACERBATION Assessment/Plan Current Active Problems dmtype2 uncontrolled hyperglycemia morbid obesity excarberbation asthma Influenza B (Acute) Abnormal Lab Results 10/21/19 10/21/19 10/21/19 06:30 06:30 06:30 WBC 10.5 H RBC 3.41 L Hgb 10.3 L Hct 31.5 L RDW 18.2 H Monocytes % (Manual) 2 L D Myelocytes % (Man) 5 H D Nucleated RBC % 4 H BUN 25.3 H Random Glucose 339 H Hemoglobin A1c % 7.8 H Alkaline Phosphatase 121 H Albumin 3.2 L Laboratory Results - last 24 hr 10/21/19 10/21/19 10/21/19 06:30 06:30 06:30 WBC 10.5 H RBC 3.41 L Hgb 10.3 L Hct 31.5 L MCV 92.3 MCH 30.3 MCHC 32.9 RDW 18.2 H Plt Count 235 MPV 8.5 Absolute Neuts (auto) 7.9 Neutrophils % 74.8 Neutrophils % (Manual) 62.3 Band Neutrophils % 4.1 Lymphocytes % 18.0 D Lymphocytes % (Manual) 18.4 D Monocytes % 6.6 Monocytes % (Manual) 2 L D Eosinophils % 0.0 Eosinophils % (Manual) 0.0 Basophils % 0.6 Basophils % (Manual) 0.0 Myelocytes % (Man) 5 H D Promyelocytes % (Man) 2 D Blast Cells % (Manual) 0 Nucleated RBC % 4 H Metamyelocytes 1 D Hypochromia 0 Toxic Granulation 2+ Platelet Estimate Normal Platelet Comment Present Polychromasia 1+ Poikilocytosis 1+ Anisocytosis 1+ Microcytosis 1+ Macrocytosis 0 Spherocytes 1+ Ovalocytes 1+ Acanthocytes (Spur) 1+ Sodium 138 Potassium 3.9 Chloride 106 Carbon Dioxide 24 Anion Gap 8 BUN 25.3 H Creatinine 1.3 Est GFR (CKD-EPI)AfAm 50.56 Est GFR (CKD-EPI)NonAf 43.62 POC Glucometer Random Glucose 339 H Hemoglobin A1c % 7.8 H Calcium 8.9 Total Bilirubin 0.3 AST 26 ALT 59 Alkaline Phosphatase 121 H Total Protein 7.2 Albumin 3.2 L 10/21/19 10/21/19 10/21/19 06:33 11:57 16:56 WBC RBC Hgb Hct MCV MCH MCHC RDW Plt Count MPV Absolute Neuts (auto) Neutrophils % Neutrophils % (Manual) Band Neutrophils % Lymphocytes % Lymphocytes % (Manual) Monocytes % Monocytes % (Manual) Eosinophils % Eosinophils % (Manual) Basophils % Basophils % (Manual) Myelocytes % (Man) Promyelocytes % (Man) Blast Cells % (Manual) Nucleated RBC % Metamyelocytes Hypochromia Toxic Granulation Platelet Estimate Platelet Comment Polychromasia Poikilocytosis Anisocytosis Microcytosis Macrocytosis Spherocytes Ovalocytes Acanthocytes (Spur) Sodium Potassium Chloride Carbon Dioxide Anion Gap BUN Creatinine Est GFR (CKD-EPI)AfAm Est GFR (CKD-EPI)NonAf POC Glucometer 326 495 461 Random Glucose Hemoglobin A1c % Calcium Total Bilirubin AST ALT Alkaline Phosphatase Total Protein Albumin 10/21/19 10/21/19 17:35 21:32 WBC RBC Hgb Hct MCV MCH MCHC RDW Plt Count MPV Absolute Neuts (auto) Neutrophils % Neutrophils % (Manual) Band Neutrophils % Lymphocytes % Lymphocytes % (Manual) Monocytes % Monocytes % (Manual) Eosinophils % Eosinophils % (Manual) Basophils % Basophils % (Manual) Myelocytes % (Man) Promyelocytes % (Man) Blast Cells % (Manual) Nucleated RBC % Metamyelocytes Hypochromia Toxic Granulation Platelet Estimate Platelet Comment Polychromasia Poikilocytosis Anisocytosis Microcytosis Macrocytosis Spherocytes Ovalocytes Acanthocytes (Spur) Sodium Potassium Chloride Carbon Dioxide Anion Gap BUN Creatinine Est GFR (CKD-EPI)AfAm Est GFR (CKD-EPI)NonAf POC Glucometer 469 455 Random Glucose Hemoglobin A1c % Calcium Total Bilirubin AST ALT Alkaline Phosphatase Total Protein Albumin Laboratory Tests 10/19/19 10/19/19 10/21/19 06:12 11:27 06:30 Hemoglobin A1c % 7.8 H TSH 0.09 L Free T4 0.91 imp:/plan dm uncontrolled bgm qid novolog novolog 70/30 while on steroid 35 units bid euhtyroid sick vs nodular gland repeat tft when acute illness improves check thyroid sonogram as outpatient
[2019-10-22] MEDS: methylPREDNISolone NA SUCC 40 MG/1 ML VIAL IVPUSH SCH ×4 (02:10→21:59)
[2019-10-22] MEDS: guaiFENesin 200 MG/10 ML 10 ML UNIT-DOSE CUPS PO PRN ×3 (04:55→17:07)
[2019-10-22] MEDS: HEPARIN NA (PORCINE) 5,000 UNITS/ML 1ML VIAL SQ SCH ×3 (06:42→22:08)
[2019-10-22] MEDS: INSULIN (NOVOLOG MIX 70/30) 100 UNITS/ML MDV SQ SCH ×2 (06:43→17:04)
[2019-10-22] MEDS: NYSTATIN 500,000 UNITS/5 ML SUSPENSION PO SCH ×4 (06:43→23:11)
[2019-10-22] MEDS: INSULIN (LEVEMIR) 100 UNITS/ML UNITS SQ SCH ×2 (06:43→23:00)
[2019-10-22] MEDS: INSULIN SLIDING SCALE (NOVOLOG) 1 VIAL SQ SCH ×4 (06:44→23:00)
[2019-10-22] MEDS: INSULIN (NOVOLOG) ASPART 100 UNITS/ML 10ML VIAL SQ SCH ×4 (06:44→23:00)
[2019-10-22 07:04] LABS: BASO % 0.6 % (0-2.0); EOS % 0.1 % (0-4.5); HEMATOCRIT 31.5 % (32.4-45.2); HEMOGLOBIN 10.4 GM/dL (10.7-15.3); MCH 30.9 pg (25.7-33.7); MEAN CELL VOLUME 93.6 fl (80-96); MEAN PLT VOLUME 8.7 fl (7.5-11.1); MONO % 7.8 % (3.8-10.2); NEUT % 76.5 % (42.8-82.8); PLATELET COUNT 272 K/MM3 (134-434); RBC 3.37 M/mm3 (3.60-5.2); RDW 17.7 % (11.6-15.6); WHITE BLOOD COUNT 8.8 K/mm3 (4.0-10.0)
[2019-10-22 07:37] LABS: BLOOD UREA NITROGEN 24.9 mg/dL (7-18); CALCIUM 8.6 mg/dL (8.5-10.1); CREATININE 1.4 mg/dL (0.55-1.3); POTASSIUM 3.9 mmol/L (3.5-5.1)
[2019-10-22] MEDS: LEVALBUTEROL HCL 0.63 MG/3 ML VIAL.NEB. IH SCH ×3 (08:12→20:26)
[2019-10-22] MEDS ORDERED: PT OWN MED DRAWER 7, Y5N ONE (09:55)
--- NOTE | 2019-10-22 10:18 | PN ---
Teaching Attending Note Name of Resident: Renetta Grady ATTENDING PHYSICIAN STATEMENT I saw and evaluated the patient. I reviewed the resident's note and discussed the case with the resident. I agree with the resident's findings and plan as documented. SUBJECTIVE: OBJECTIVE: Vital Signs Temperature 98.0 F 10/21/19 21:00 Pulse Rate 90 10/22/19 06:00 Respiratory Rate 20 10/22/19 06:00 Blood Pressure 148/93 10/22/19 06:00 O2 Sat by Pulse Oximetry (%) 94 L 10/21/19 21:00 Initial Vital Signs Temp Pulse Resp BP Pulse Ox 98.6 F 136 H 20 118/56 L 95 10/16/19 17:18 10/16/19 17:18 10/16/19 17:18 10/16/19 17:18 10/16/19 17:18 GENERAL: The patient is awake, alert, and fully oriented, in no acute distress. HEAD: Normal with no signs of trauma. EYES: PERRL, extraocular movements intact, sclera anicteric, conjunctiva clear. ENT: Ears normal, oropharynx clear without exudates, moist mucous membranes. NECK: Trachea midline, full range of motion, supple. LUNGS: Breath sounds equal, clear to auscultation bilaterally, no wheezes, no crackles, no accessory muscle use. HEART: Regular rate and rhythm, S1, S2 without murmur, rub or gallop. ABDOMEN: Soft, nontender, nondistended, normoactive bowel sounds, no guarding, no rebound, no hepatosplenomegaly, no masses. EXTREMITIES: 2+ pulses, warm, well-perfused, no edema. NEUROLOGICAL: Cranial nerves II through XII grossly intact. Normal speech, gait not observed. PSYCH: Normal mood, normal affect. SKIN: Warm, dry, normal turgor, no rashes or lesions noted CBCD WBC 8.8 K/mm3 (4.0-10.0) 10/22/19 06:30 RBC 3.37 M/mm3 (3.60-5.2) L 10/22/19 06:30 Hgb 10.4 GM/dL (10.7-15.3) L 10/22/19 06:30 Hct 31.5 % (32.4-45.2) L 10/22/19 06:30 MCV 93.6 fl (80-96) 10/22/19 06:30 MCHC 33.0 g/dl (32.0-36.0) 10/22/19 06:30 RDW 17.7 % (11.6-15.6) H 10/22/19 06:30 Plt Count 272 K/MM3 (134-434) 10/22/19 06:30 MPV 8.7 fl (7.5-11.1) 10/22/19 06:30 CMP Sodium 137 mmol/L (136-145) 10/22/19 06:30 Potassium 3.9 mmol/L (3.5-5.1) 10/22/19 06:30 Chloride 105 mmol/L (98-107) 10/22/19 06:30 Carbon Dioxide 23 mmol/L (21-32) 10/22/19 06:30 Anion Gap 9 MMOL/L (8-16) 10/22/19 06:30 BUN 24.9 mg/dL (7-18) H 10/22/19 06:30 Creatinine 1.4 mg/dL (0.55-1.3) H 10/22/19 06:30 Random Glucose 436 mg/dL (74-106) H* 10/22/19 06:30 Calcium 8.6 mg/dL (8.5-10.1) 10/22/19 06:30 Total Bilirubin 0.3 mg/dL (0.2-1) 10/21/19 06:30 AST 26 U/L (15-37) 10/21/19 06:30 ALT 59 U/L (13-61) 10/21/19 06:30 Alkaline Phosphatase 121 U/L (45-117) H 10/21/19 06:30 Total Protein 7.2 g/dl (6.4-8.2) 10/21/19 06:30 Albumin 3.2 g/dl (3.4-5.0) L 10/21/19 06:30 CARDIAC ENZYMES Troponin I < 0.05 ng/ml (0.00-0.05) 10/16/19 18:35 Current Medications Generic Name Dose Route Start Last Admin Trade Name Freq PRN Reason Stop Dose Admin Abacavir Sulfate 600 mg 10/17/19 10:00 10/21/19 10:08 Ziagen - PO 600 mg DAILY SHERI Administration Albuterol/Ipratropium 1 amp 10/20/19 09:41 10/22/19 04:56 Duoneb - NEB 1 amp Q6H PRN Administration SHORTNESS OF BREATH Darunavir 800 mg 10/17/19 10:00 10/21/19 10:09 Prezista - PO 800 mg DAILY SHERI Administration Gabapentin 300 mg 10/17/19 10:00 10/21/19 21:34 Neurontin - PO 300 mg BID SHERI Administration Guaifenesin 10 ml 10/18/19 16:02 10/22/19 04:55 Robitussin - PO 10 ml Q6H PRN Administration COUGH Heparin Sodium (Porcine) 5,000 unit 10/17/19 06:00 10/22/19 06:42 Heparin - SQ Not Given TID SHERI Insulin Aspart 10 units 10/21/19 16:30 10/22/19 06:44 Novolog Vial SQ 10 units ACHS SHERI Administration Insulin Aspart 1 vial 10/22/19 07:00 10/22/19 06:44 Novolog Vial Sliding Scale - SQ 14 units ACHS SHERI Administration Protocol Insulin Aspart 35 units 10/22/19 07:00 10/22/19 06:43 Novolog Mix 70/30 Vial SQ 35 units BIDAC SHERI Administration Insulin Detemir 20 units 10/22/19 07:00 10/22/19 06:43 Levemir Vial SQ 20 units 0700,2200 SHEIR Administration Lactobacillus Acidophilus 1 tab 10/17/19 10:00 10/21/19 10:06 Bacid - PO 1 tab DAILY SHERI Administration Lamivudine 300 mg 10/22/19 10:00 Epivir - PO DAILY SHERI Levalbuterol HCl 0.63 mg 10/20/19 22:54 10/22/19 08:12 Xopenex IH 0.63 mg RTID SHERI Administration Losartan Potassium 25 mg 10/17/19 10:00 10/21/19 10:06 Cozaar - PO 25 mg DAILY SHERI Administration Methylprednisolone Sodium Succinate 40 mg 10/20/19 15:00 10/22/19 02:10 Solu-Medrol - IVPUSH 40 mg Q6H-IV SHERI Administration Mirtazapine 15 mg 10/17/19 22:00 10/21/19 21:36 Remeron - PO 15 mg HS SHERI Administration Multivitamins 1 each 10/17/19 10:00 10/21/19 10:08 Total B With C - PO 1 each DAILY SHERI Administration Nystatin 500,000 units 10/21/19 18:00 10/22/19 06:43 Nystatin Oral Suspension - PO 500,000 units Q6HPO SHERI Administration Oseltamivir Phosphate 75 mg 10/17/19 22:00 10/21/19 21:34 Tamiflu - PO 10/22/19 21:59 75 mg BID SHERI Administration Pantoprazole Sodium 40 mg 10/17/19 10:00 10/21/19 10:05 Protonix - PO 40 mg DAILY SHERI Administration Ritonavir 100 mg 10/17/19 10:00 10/21/19 10:09 Norvir - PO 100 mg DAILY SHERI Administration Trimethoprim/Sulfamethoxazole 1 each 10/17/19 10:00 10/21/19 10:06 Bactrim Ds - PO 1 each MoWeFr@1000 SHERI Administration Valacyclovir HCl 1,000 mg 10/19/19 10:00 10/21/19 10:06 Valtrex - PO 1,000 mg DAILY SHERI Administration Zolpidem Tartrate 5 mg 10/16/19 22:52 10/21/19 21:34 Ambien - PO 5 mg HS PRN Administration INSOMNIA Home Medications Medication Instructions Recorded Lactobacillus Acidophilus [Bacid -] 1 tab PO DAILY 28 Days #28 tab 10/04/18 Albuterol Sulfate Inhaler - 1 - 2 inh PO Q4H PRN #1 inhaler 04/02/19 [Ventolin HFA Inhaler -] Albuterol 0.083% Nebulizer Olivia 1 neb NEB Q6H PRN #120 vial 08/05/19 [Ventolin 0.083% Nebulizer Soln -] Budesonide/Formeterol Fumarate 2 inh PO BID #1 cannister 08/09/19 [SYMBICORT 80/4.5mcg -] Levalbuterol HCl [Xopenex] 0.63 mg IH QID #4 box 08/09/19 Levalbuterol Tartrate 15 gm IH QID #1 inhaler 08/12/19 [Levalbuterol Tartrate Hfa] Tiotropium [place] [Spiriva 4 gm IH DAILY #1 mist.inhal 08/18/19 Respimat] Valacyclovir HCl [Valtrex -] 1,000 mg PO BID #28 tablet 08/23/19 Abacavir Sulfate/Lamivudine 1 each PO DAILY #30 tablet 09/06/19 [Abacavir-Lamivudine 600-300 mg] Darunavir Ethanolate [Prezista -] 800 mg PO DAILY #30 tablet 09/06/19 Ritonavir 100 mg PO DAILY #30 tablet 09/06/19 Ergocalciferol (Vitamin D2) 50,000 unit PO WEEKLY #4 capsule 09/29/19 [Vitamin D2] Mirtazapine 15 mg PO HS #30 tablet 09/29/19 Vitamin B Complex [B Complex] 1 each PO DAILY #30 tablet 09/29/19 Zolpidem Tartrate [Ambien] 5 mg PO HS PRN #15 tablet MDD 1 09/29/19 Diclofenac Sodium [Voltaren] 100 gm TP BID #1 gel..gram. 10/06/19 Gabapentin 300 mg PO BID #60 capsule 10/06/19 Losartan Potassium [Cozaar -] 25 mg PO DAILY #30 tablet 10/06/19 Methocarbamol [Robaxin -] 500 mg PO BID PRN #15 tablet 10/13/19 Oxycodone HCl/Acetaminophen 1 each PO TID PRN #20 tablet MDD 3 10/13/19 [Endocet 5-325 Tablet] ASSESSMENT AND PLAN: 64 F HIV on HAART, asthma, HTN, HLD, GERD, COPD not on O2, admitted for COPDE and found to have influenza B +. Acute COPDE complicated by influenza B+ cont. droplet isolation cont. Tamiflu renal dose cont. Levalbuterol (less tachycardia and patient takes this med at home feels better when using it) cont. Solumedrol to 40mg Q6H finished course of abx Pulmonary consult: Dr Crouch New onset T2DM A1c 7.8% ISS with premeal and basal insulin Endo consult: Dr Everett HIV continue home medications Bactrim DS MWF ID consult: Dr Ivey FELIZ resolved , likely pre renal CRE 1.5 (baseline 0.9-1.2) Acute on chronic cough improved, Robitussin PRN HTN cont. BP meds GERD cont. PPI Abnormal TFTs low TSH, low Ft3, low normal FT4, likely 2/2 Euthyroid sick syndrome in view of recent Flu URI with sepsis, treat underlying cause and repeat TFTs in 6-8 weeks Endo evaluation DVT ppx: Heparin SC
[2019-10-22] MEDS: OSELTAMIVIR PHOSPHATE 75 MG CAPSULE PO SCH (10:22)
[2019-10-22] MEDS: PANTOPRAZOLE 40 MG TABLET PO SCH (10:23)
[2019-10-22] MEDS: GABAPENTIN 300 MG CAPSULE PO SCH ×2 (10:23→22:09)
[2019-10-22] MEDS: LOSARTAN POTASSIUM 25 MG TABLET PO SCH (10:23)
[2019-10-22] MEDS: ABACAVIR SULFATE 300 MG TABLET PO SCH (10:23)
[2019-10-22] MEDS: valACYclovir HCL 500 MG TABLET (FP) PO SCH (10:23)
[2019-10-22] MEDS: LACTOBACILLUS ACIDOPHILUS 1 TABLET PO SCH (10:24)
[2019-10-22] MEDS: lamiVUDine 150 MG TABLET PO SCH (10:24)
[2019-10-22] MEDS: DARUNAVIR ETHANOLATE 800 MG TAB PO SCH (10:24)
[2019-10-22] MEDS: VITAMIN B COMPLEX W/C COMBO TABLET (FP) PO SCH (10:24)
[2019-10-22] MEDS: RITONAVIR 100 MG TABLET PO SCH (10:24)
[2019-10-22 10:25] LABS: ANISOCYTOSIS 2+; MACROCYTOSIS 0; OVALOCYTE 1+; PLATELET ESTIMATE NORMAL; TEAR DROP CELLS 1+
--- NOTE | 2019-10-22 12:12 | PN ---
Progress Note (short form) - Note Progress Note: Still with cough and wheezing. Feels about the same as yesterday. No hmeoptysis. Intake & Output 10/19/19 10/20/19 10/21/19 10/22/19 23:59 23:59 23:59 23:59 Intake Total 4916 482 9053 120 Output Total 4 1 Balance 4724 450 8778 119 Weight 199 lb Last Vital Signs Temp Pulse Resp BP Pulse Ox 98.0 F 114 H 19 147/108 H 94 L 10/22/19 10:18 10/22/19 10:18 10/22/19 10:18 10/22/19 10:18 10/21/19 21:00 Active Medications Abacavir Sulfate (Ziagen -) 600 mg PO DAILY [facility] Last Admin: 10/22/19 10:23 Dose: 600 mg Albuterol/Ipratropium (Duoneb -) 1 amp NEB Q6H PRN PRN Reason: SHORTNESS OF BREATH Last Admin: 10/22/19 04:56 Dose: 1 amp Darunavir (Prezista -) 800 mg PO DAILY [facility] Last Admin: 10/22/19 10:24 Dose: 800 mg Gabapentin (Neurontin -) 300 mg PO BID [facility] Last Admin: 10/22/19 10:23 Dose: 300 mg Guaifenesin (Robitussin -) 10 ml PO Q6H PRN PRN Reason: COUGH Last Admin: 10/22/19 10:25 Dose: 10 ml Heparin Sodium (Porcine) (Heparin -) 5,000 unit SQ TID [facility] Last Admin: 10/22/19 06:42 Dose: Not Given Insulin Aspart (Novolog Vial) 10 units SQ ACHS [facility] Last Admin: 10/22/19 11:53 Dose: 10 units Insulin Aspart (Novolog Vial Sliding Scale -) 1 vial SQ ACHS [facility]; Protocol Last Admin: 10/22/19 11:53 Dose: 9 units Insulin Aspart (Novolog Mix 70/30 Vial) 35 units SQ BIDAC [facility] Last Admin: 10/22/19 06:43 Dose: 35 units Insulin Detemir (Levemir Vial) 20 units SQ 0700,2200 [facility] Last Admin: 10/22/19 06:43 Dose: 20 units Lactobacillus Acidophilus (Bacid -) 1 tab PO DAILY [facility] Last Admin: 10/22/19 10:24 Dose: 1 tab Lamivudine (Epivir -) 300 mg PO DAILY [facility] Last Admin: 10/22/19 10:24 Dose: 300 mg Levalbuterol HCl (Xopenex) 0.63 mg IH RTID [facility] Last Admin: 10/22/19 08:12 Dose: 0.63 mg Losartan Potassium (Cozaar -) 25 mg PO DAILY [facility] Last Admin: 10/22/19 10:23 Dose: 25 mg Methylprednisolone Sodium Succinate (Solu-Medrol -) 40 mg IVPUSH Q6H-IV [facility] Last Admin: 10/22/19 10:23 Dose: 40 mg Mirtazapine (Remeron -) 15 mg PO HS [facility] Last Admin: 10/21/19 21:36 Dose: 15 mg Multivitamins (Total B With C -) 1 each PO DAILY [facility] Last Admin: 10/22/19 10:24 Dose: 1 each Nystatin (Nystatin Oral Suspension -) 500,000 units PO Q6HPO [facility] Last Admin: 10/22/19 11:55 Dose: 500,000 units Oseltamivir Phosphate (Tamiflu -) 75 mg PO BID [facility] Stop: 10/22/19 21:59 Last Admin: 10/22/19 10:22 Dose: 75 mg Pantoprazole Sodium (Protonix -) 40 mg PO DAILY [facility] Last Admin: 10/22/19 10:23 Dose: 40 mg Ritonavir (Norvir -) 100 mg PO DAILY [facility] Last Admin: 10/22/19 10:24 Dose: 100 mg Trimethoprim/Sulfamethoxazole (Bactrim Ds -) 1 each PO MoWeFr@1000 [facility] Last Admin: 10/21/19 10:06 Dose: 1 each Valacyclovir HCl (Valtrex -) 1,000 mg PO DAILY [facility] Last Admin: 10/22/19 10:23 Dose: 1,000 mg Zolpidem Tartrate (Ambien -) 5 mg PO HS PRN PRN Reason: INSOMNIA Last Admin: 10/21/19 21:34 Dose: 5 mg Constitutional: Yes: Mildly tachypneic at rest Eyes: Yes: WNL HENT: Yes: WNL Neck: Yes: WNL Cardiovascular: Yes: Regular Rate and Rhythm, S1, S2 Respiratory: Yes: Bilateral Rhonchi & Expiratory wheeze Gastrointestinal: Yes: Normal Bowel Sounds, Soft Extremities: Yes: WNL Edema: No Labs: Laboratory Results - last 24 hr 10/21/19 10/21/19 10/21/19 16:56 17:35 21:32 WBC RBC Hgb Hct MCV MCH MCHC RDW Plt Count MPV Absolute Neuts (auto) Neutrophils % Neutrophils % (Manual) Band Neutrophils % Lymphocytes % Lymphocytes % (Manual) Monocytes % Monocytes % (Manual) Eosinophils % Eosinophils % (Manual) Basophils % Basophils % (Manual) Myelocytes % (Man) Promyelocytes % (Man) Blast Cells % (Manual) Nucleated RBC % Metamyelocytes Hypochromia Platelet Estimate Platelet Comment Polychromasia Poikilocytosis Anisocytosis Microcytosis Macrocytosis Spherocytes Tear Drop Cells Ovalocytes Sodium Potassium Chloride Carbon Dioxide Anion Gap BUN Creatinine Est GFR (CKD-EPI)AfAm Est GFR (CKD-EPI)NonAf POC Glucometer 461 469 455 Random Glucose Calcium 10/22/19 10/22/19 10/22/19 06:30 06:30 06:36 WBC 8.8 RBC 3.37 L Hgb 10.4 L Hct 31.5 L MCV 93.6 MCH 30.9 MCHC 33.0 RDW 17.7 H Plt Count 272 MPV 8.7 Absolute Neuts (auto) 6.7 Neutrophils % 76.5 Neutrophils % (Manual) 56.1 Band Neutrophils % 3.1 Lymphocytes % 15.0 Lymphocytes % (Manual) 10.2 D Monocytes % 7.8 Monocytes % (Manual) 8 D Eosinophils % 0.1 D Eosinophils % (Manual) 0.0 Basophils % 0.6 Basophils % (Manual) 0.0 Myelocytes % (Man) 5 H Promyelocytes % (Man) 2 Blast Cells % (Manual) 2 H D Nucleated RBC % 8 H Metamyelocytes 6 H D Hypochromia 0 Platelet Estimate Normal Platelet Comment Present Polychromasia 1+ Poikilocytosis 1+ Anisocytosis 2+ Microcytosis 1+ Macrocytosis 0 Spherocytes 1+ Tear Drop Cells 1+ Ovalocytes 1+ Sodium 137 Potassium 3.9 Chloride 105 Carbon Dioxide 23 Anion Gap 9 BUN 24.9 H Creatinine 1.4 H Est GFR (CKD-EPI)AfAm 46.23 Est GFR (CKD-EPI)NonAf 39.89 POC Glucometer 407 Random Glucose 436 H* Calcium 8.6 10/22/19 11:51 WBC RBC Hgb Hct MCV MCH MCHC RDW Plt Count MPV Absolute Neuts (auto) Neutrophils % Neutrophils % (Manual) Band Neutrophils % Lymphocytes % Lymphocytes % (Manual) Monocytes % Monocytes % (Manual) Eosinophils % Eosinophils % (Manual) Basophils % Basophils % (Manual) Myelocytes % (Man) Promyelocytes % (Man) Blast Cells % (Manual) Nucleated RBC % Metamyelocytes Hypochromia Platelet Estimate Platelet Comment Polychromasia Poikilocytosis Anisocytosis Microcytosis Macrocytosis Spherocytes Tear Drop Cells Ovalocytes Sodium Potassium Chloride Carbon Dioxide Anion Gap BUN Creatinine Est GFR (CKD-EPI)AfAm Est GFR (CKD-EPI)NonAf POC Glucometer 341 Random Glucose Calcium Assessment/Plan Problem List - Problems (1) Influenza B Code(s): J10.1 - FLU DUE TO OTH IDENT INFLUENZA VIRUS W OTH RESP MANIFEST (2) AIDS Code(s): B20 - HUMAN IMMUNODEFICIENCY VIRUS [HIV] DISEASE (3) FELIZ (acute kidney injury) Code(s): N17.9 - ACUTE KIDNEY FAILURE, UNSPECIFIED (4) COPD exacerbation Code(s): J44.1 - CHRONIC OBSTRUCTIVE PULMONARY DISEASE W (ACUTE) EXACERBATION (5) Cough Code(s): R05 - COUGH (6) Diarrhea Code(s): R19.7 - DIARRHEA, UNSPECIFIED Qualifiers: Diarrhea type: unspecified type Qualified Code(s): R19.7 - Diarrhea, unspecified (7) Hypertension Code(s): I10 - ESSENTIAL (PRIMARY) HYPERTENSION (8) COPD (chronic obstructive pulmonary disease) Code(s): J44.9 - CHRONIC OBSTRUCTIVE PULMONARY DISEASE, UNSPECIFIED (9) Peripheral neuropathy Code(s): G62.9 - POLYNEUROPATHY, UNSPECIFIED Assessment/Plan Continue Medrol Q6 Supplemental O2 as needed Tamiflu BD TX standing and PRN VTE prophylaxis Glycemic control while on systemic steroids Dr Brandon Problem List - Problems (1) Influenza B Code(s): J10.1 - FLU DUE TO OTH IDENT INFLUENZA VIRUS W OTH RESP MANIFEST (2) AIDS Code(s): B20 - HUMAN IMMUNODEFICIENCY VIRUS [HIV] DISEASE (3) FELIZ (acute kidney injury) Code(s): N17.9 - ACUTE KIDNEY FAILURE, UNSPECIFIED (4) COPD exacerbation Code(s): J44.1 - CHRONIC OBSTRUCTIVE PULMONARY DISEASE W (ACUTE) EXACERBATION (5) Cough Code(s): R05 - COUGH (6) Diarrhea Code(s): R19.7 - DIARRHEA, UNSPECIFIED Qualifiers: Diarrhea type: unspecified type Qualified Code(s): R19.7 - Diarrhea, unspecified (7) Hypertension Code(s): I10 - ESSENTIAL (PRIMARY) HYPERTENSION (8) COPD (chronic obstructive pulmonary disease) Code(s): J44.9 - CHRONIC OBSTRUCTIVE PULMONARY DISEASE, UNSPECIFIED (9) Peripheral neuropathy Code(s): G62.9 - POLYNEUROPATHY, UNSPECIFIED
[2019-10-22] MEDS ORDERED: ALBUTEROL SO4 2.5/IPRATROPIUM 0.5 INH SOL 3 ML VIAL.NEB. NEB PRN ×2 (12:38→12:46)
[2019-10-22] MEDS ORDERED: ALBUTEROL SO4 0.083% IH SOL 2.5 MG/3 ML VIAL.NEB. NEB PRN (12:42)
--- NOTE | 2019-10-22 13:08 | PN ---
<Renetta Grady - Last Filed: 10/22/19 12:34> Physical Exam: SUBJECTIVE: Patient seen and examined at bedside this morning. No acute events overnight. Patient still reports chest tightness and shortness of breath, but speaks in full sentences. On 3L NC. Otherwise, denies any fevers, chills, headache, chest pain, palpitations, abdominal pain, urinary symptoms. OBJECTIVE: Vital Signs Temperature 98.0 F 10/22/19 10:18 Pulse Rate 114 H 10/22/19 10:18 Respiratory Rate 19 10/22/19 10:18 Blood Pressure 147/108 H 10/22/19 10:18 O2 Sat by Pulse Oximetry (%) 94 L 10/21/19 21:00 GENERAL: The patient is awake, alert, and fully oriented, on 3L NC HEAD: Normal with no signs of trauma. EYES: PERRLA, EOMI, sclera anicteric, conjunctiva clear. ENT: +oral thrush, moist mucous membranes. NECK: Trachea midline, full range of motion, supple. LUNGS: good air entry, +scattered wheezing bilaterally HEART: Tachycardic, S1, S2 without murmur, rub or gallop. ABDOMEN: Soft, nontender, nondistended, normoactive bowel sounds. EXTREMITIES: 2+ pulses, warm, well-perfused, no edema. NEUROLOGICAL: Cranial nerves II through XII grossly intact. Normal speech. PSYCH: Normal mood, normal affect. SKIN: Warm, dry, normal turgor. Laboratory Results - last 24 hr 10/21/19 10/21/19 10/21/19 16:56 17:35 21:32 WBC RBC Hgb Hct MCV MCH MCHC RDW Plt Count MPV Absolute Neuts (auto) Neutrophils % Neutrophils % (Manual) Band Neutrophils % Lymphocytes % Lymphocytes % (Manual) Monocytes % Monocytes % (Manual) Eosinophils % Eosinophils % (Manual) Basophils % Basophils % (Manual) Myelocytes % (Man) Promyelocytes % (Man) Blast Cells % (Manual) Nucleated RBC % Metamyelocytes Hypochromia Platelet Estimate Platelet Comment Polychromasia Poikilocytosis Anisocytosis Microcytosis Macrocytosis Spherocytes Tear Drop Cells Ovalocytes Sodium Potassium Chloride Carbon Dioxide Anion Gap BUN Creatinine Est GFR (CKD-EPI)AfAm Est GFR (CKD-EPI)NonAf POC Glucometer 461 469 455 Random Glucose Calcium 10/22/19 10/22/19 10/22/19 06:30 06:30 06:36 WBC 8.8 RBC 3.37 L Hgb 10.4 L Hct 31.5 L MCV 93.6 MCH 30.9 MCHC 33.0 RDW 17.7 H Plt Count 272 MPV 8.7 Absolute Neuts (auto) 6.7 Neutrophils % 76.5 Neutrophils % (Manual) 56.1 Band Neutrophils % 3.1 Lymphocytes % 15.0 Lymphocytes % (Manual) 10.2 D Monocytes % 7.8 Monocytes % (Manual) 8 D Eosinophils % 0.1 D Eosinophils % (Manual) 0.0 Basophils % 0.6 Basophils % (Manual) 0.0 Myelocytes % (Man) 5 H Promyelocytes % (Man) 2 Blast Cells % (Manual) 2 H D Nucleated RBC % 8 H Metamyelocytes 6 H D Hypochromia 0 Platelet Estimate Normal Platelet Comment Present Polychromasia 1+ Poikilocytosis 1+ Anisocytosis 2+ Microcytosis 1+ Macrocytosis 0 Spherocytes 1+ Tear Drop Cells 1+ Ovalocytes 1+ Sodium 137 Potassium 3.9 Chloride 105 Carbon Dioxide 23 Anion Gap 9 BUN 24.9 H Creatinine 1.4 H Est GFR (CKD-EPI)AfAm 46.23 Est GFR (CKD-EPI)NonAf 39.89 POC Glucometer 407 Random Glucose 436 H* Calcium 8.6 10/22/19 11:51 WBC RBC Hgb Hct MCV MCH MCHC RDW Plt Count MPV Absolute Neuts (auto) Neutrophils % Neutrophils % (Manual) Band Neutrophils % Lymphocytes % Lymphocytes % (Manual) Monocytes % Monocytes % (Manual) Eosinophils % Eosinophils % (Manual) Basophils % Basophils % (Manual) Myelocytes % (Man) Promyelocytes % (Man) Blast Cells % (Manual) Nucleated RBC % Metamyelocytes Hypochromia Platelet Estimate Platelet Comment Polychromasia Poikilocytosis Anisocytosis Microcytosis Macrocytosis Spherocytes Tear Drop Cells Ovalocytes Sodium Potassium Chloride Carbon Dioxide Anion Gap BUN Creatinine Est GFR (CKD-EPI)AfAm Est GFR (CKD-EPI)NonAf POC Glucometer 341 Random Glucose Calcium Active Medications Generic Name Dose Route Start Last Admin Trade Name Freq PRN Reason Stop Dose Admin Abacavir Sulfate 600 mg 10/17/19 10:00 10/22/19 10:23 Ziagen - PO 600 mg DAILY SHERI Administration Albuterol/Ipratropium 1 amp 10/20/19 09:41 10/22/19 04:56 Duoneb - NEB 1 amp Q6H PRN Administration SHORTNESS OF BREATH Darunavir 800 mg 10/17/19 10:00 10/22/19 10:24 Prezista - PO 800 mg DAILY SHERI Administration Gabapentin 300 mg 10/17/19 10:00 10/22/19 10:23 Neurontin - PO 300 mg BID SHERI Administration Guaifenesin 10 ml 10/18/19 16:02 10/22/19 10:25 Robitussin - PO 10 ml Q6H PRN Administration COUGH Heparin Sodium (Porcine) 5,000 unit 10/17/19 06:00 10/22/19 06:42 Heparin - SQ Not Given TID SHERI Insulin Aspart 10 units 10/21/19 16:30 10/22/19 11:53 Novolog Vial SQ 10 units ACHS SHERI Administration Insulin Aspart 1 vial 10/22/19 07:00 10/22/19 11:53 Novolog Vial Sliding Scale - SQ 9 units ACHS SHERI Administration Protocol Insulin Aspart 35 units 10/22/19 07:00 10/22/19 06:43 Novolog Mix 70/30 Vial SQ 35 units BIDAC SHERI Administration Insulin Detemir 20 units 10/22/19 07:00 10/22/19 06:43 Levemir Vial SQ 20 units 0700,2200 SHERI Administration Lactobacillus Acidophilus 1 tab 10/17/19 10:00 10/22/19 10:24 Bacid - PO 1 tab DAILY SHERI Administration Lamivudine 300 mg 10/22/19 10:00 10/22/19 10:24 Epivir - PO 300 mg DAILY SHERI Administration Levalbuterol HCl 0.63 mg 10/20/19 22:54 10/22/19 08:12 Xopenex IH 0.63 mg RTID SHERI Administration Losartan Potassium 25 mg 10/17/19 10:00 10/22/19 10:23 Cozaar - PO 25 mg DAILY SHERI Administration Methylprednisolone Sodium Succinate 40 mg 10/20/19 15:00 10/22/19 10:23 Solu-Medrol - IVPUSH 40 mg Q6H-IV SHERI Administration Mirtazapine 15 mg 10/17/19 22:00 10/21/19 21:36 Remeron - PO 15 mg HS SHERI Administration Multivitamins 1 each 10/17/19 10:00 10/22/19 10:24 Total B With C - PO 1 each DAILY SHERI Administration Nystatin 500,000 units 10/21/19 18:00 10/22/19 11:55 Nystatin Oral Suspension - PO 500,000 units Q6HPO SHERI Administration Oseltamivir Phosphate 75 mg 10/17/19 22:00 10/22/19 10:22 Tamiflu - PO 10/22/19 21:59 75 mg BID SHERI Administration Pantoprazole Sodium 40 mg 10/17/19 10:00 10/22/19 10:23 Protonix - PO 40 mg DAILY SHERI Administration Ritonavir 100 mg 10/17/19 10:00 10/22/19 10:24 Norvir - PO 100 mg DAILY SHERI Administration Trimethoprim/Sulfamethoxazole 1 each 10/17/19 10:00 10/21/19 10:06 Bactrim Ds - PO 1 each MoWeFr@1000 SHERI Administration Valacyclovir HCl 1,000 mg 10/19/19 10:00 10/22/19 10:23 Valtrex - PO 1,000 mg DAILY SHERI Administration Zolpidem Tartrate 5 mg 10/16/19 22:52 10/21/19 21:34 Ambien - PO 5 mg HS PRN Administration INSOMNIA ASSESSMENT/PLAN: Patient is a 64 year old female with a past medical history of HIV (09/29/19 CD4 104, viral load 70), HTN, HLD, COPD, GERD admitted for COPD exacerbation secondary to influenza B. #COPD Exacerbation likely 2/2 Influenza B infection - Flu B + - isolation precautions, droplet precautions - continue bronchodilators standing and prn - Continue IV Solumedrol 40mg q6h - Tamiflu 75mg bid for 5 days, last dose today - protonix while on steroids - Robitussin prn for cough - pulmonology (Dr. Brandon) consulted. recommendations appreciated - ID(Dr Ivey) consulted. REcommendations appreciated. #Newly diagnosed T2DM - A1c 7.8% - Endocrinology (Dr. Everett) consulted. Recommendations appreciated. - BGM ACHS - Insulin novolog 70/30 35u BIDAC while on steroids - Insulin Levemir 20u bid - Insulin sliding scale implemented #HIV - continue home medications - Bactrim DS MWF - Valacyclovir 1000mg daily - ID consulted. #FELIZ, stable - likely pre-renal, will continue monitor #HTN - continue home losartan #GERD - on Protonix #Elevated TSH - low TSH, low Ft3, low normal FT4 - likely 2/2 Euthyroid sick syndrome in view of recent Flu URI with sepsis - Endo consulted. Recs appreciated. - repeat tft when acute illness improves - check thyroid sonogram as outpatient #DVT PPx - heparin 5000 units sq tid #FEN - Not on any standing fluids - continue to monitor electrolytes and replete as necessary - Sodium controlled/ diabetic diet #Dispo - tele monitoring - full code Visit type - Emergency Visit Emergency Visit: Yes ED Registration Date: 10/16/19 Care time: The patient presented to the Emergency Department on the above date and was hospitalized for further evaluation of their emergent condition. - New Patient This patient is new to me today: Yes Date on this admission: 10/22/19 - Critical Care Critical Care patient: No ATTENDING PHYSICIAN STATEMENT I saw and evaluated the patient. I reviewed the resident's note and discussed the case with the resident. I agree with the resident's findings and plan as documented. SUBJECTIVE: OBJECTIVE: ASSESSMENT AND PLAN: <Cee Gutierrez - Last Filed: 10/22/19 17:49> Physical Exam: SUBJECTIVE: Patient seen and examined OBJECTIVE: Vital Signs Period Temp Pulse Resp BP Sys/Inman Pulse Ox Last 24 Hr 98.0 F-98.3 F 90-117 19-20 147-169/90-108 94-94 GENERAL: The patient is awake, alert, and fully oriented, in no acute distress. HEAD: Normal with no signs of trauma. EYES: PERRL, extraocular movements intact, sclera anicteric, conjunctiva clear. No ptosis. ENT: Ears normal, nares patent, oropharynx clear without exudates, moist mucous membranes. NECK: Trachea midline, full range of motion, supple. LUNGS: Breath sounds equal, clear to auscultation bilaterally, no wheezes, no crackles, no accessory muscle use. HEART: Regular rate and rhythm, S1, S2 without murmur, rub or gallop. ABDOMEN: Soft, nontender, nondistended, normoactive bowel sounds, no guarding, no rebound, no hepatosplenomegaly, no masses. EXTREMITIES: 2+ pulses, warm, well-perfused, no edema. NEUROLOGICAL: Cranial nerves II through XII grossly intact. Normal speech, gait not observed. PSYCH: Normal mood, normal affect. SKIN: Warm, dry, normal turgor, no rashes or lesions noted Laboratory Results - last 24 hr 10/21/19 10/21/19 10/22/19 17:35 21:32 06:30 WBC 8.8 RBC 3.37 L Hgb 10.4 L Hct 31.5 L MCV 93.6 MCH 30.9 MCHC 33.0 RDW 17.7 H Plt Count 272 MPV 8.7 Absolute Neuts (auto) 6.7 Neutrophils % 76.5 Neutrophils % (Manual) 56.1 Band Neutrophils % 3.1 Lymphocytes % 15.0 Lymphocytes % (Manual) 10.2 D Monocytes % 7.8 Monocytes % (Manual) 8 D Eosinophils % 0.1 D Eosinophils % (Manual) 0.0 Basophils % 0.6 Basophils % (Manual) 0.0 Myelocytes % (Man) 5 H Promyelocytes % (Man) 2 Blast Cells % (Manual) 2 H D Nucleated RBC % 8 H Metamyelocytes 6 H D Hypochromia 0 Platelet Estimate Normal Platelet Comment Present Polychromasia 1+ Poikilocytosis 1+ Anisocytosis 2+ Microcytosis 1+ Macrocytosis 0 Spherocytes 1+ Tear Drop Cells 1+ Ovalocytes 1+ Sodium Potassium Chloride Carbon Dioxide Anion Gap BUN Creatinine Est GFR (CKD-EPI)AfAm Est GFR (CKD-EPI)NonAf POC Glucometer 469 455 Random Glucose Calcium 10/22/19 10/22/19 10/22/19 06:30 06:36 11:51 WBC RBC Hgb Hct MCV MCH MCHC RDW Plt Count MPV Absolute Neuts (auto) Neutrophils % Neutrophils % (Manual) Band Neutrophils % Lymphocytes % Lymphocytes % (Manual) Monocytes % Monocytes % (Manual) Eosinophils % Eosinophils % (Manual) Basophils % Basophils % (Manual) Myelocytes % (Man) Promyelocytes % (Man) Blast Cells % (Manual) Nucleated RBC % Metamyelocytes Hypochromia Platelet Estimate Platelet Comment Polychromasia Poikilocytosis Anisocytosis Microcytosis Macrocytosis Spherocytes Tear Drop Cells Ovalocytes Sodium 137 Potassium 3.9 Chloride 105 Carbon Dioxide 23 Anion Gap 9 BUN 24.9 H Creatinine 1.4 H Est GFR (CKD-EPI)AfAm 46.23 Est GFR (CKD-EPI)NonAf 39.89 POC Glucometer 407 341 Random Glucose 436 H* Calcium 8.6 10/22/19 17:00 WBC RBC Hgb Hct MCV MCH MCHC RDW Plt Count MPV Absolute Neuts (auto) Neutrophils % Neutrophils % (Manual) Band Neutrophils % Lymphocytes % Lymphocytes % (Manual) Monocytes % Monocytes % (Manual) Eosinophils % Eosinophils % (Manual) Basophils % Basophils % (Manual) Myelocytes % (Man) Promyelocytes % (Man) Blast Cells % (Manual) Nucleated RBC % Metamyelocytes Hypochromia Platelet Estimate Platelet Comment Polychromasia Poikilocytosis Anisocytosis Microcytosis Macrocytosis Spherocytes Tear Drop Cells Ovalocytes Sodium Potassium Chloride Carbon Dioxide Anion Gap BUN Creatinine Est GFR (CKD-EPI)AfAm Est GFR (CKD-EPI)NonAf POC Glucometer 362 Random Glucose Calcium Active Medications Generic Name Dose Route Start Last Admin Trade Name Freq PRN Reason Stop Dose Admin Abacavir Sulfate 600 mg 10/17/19 10:00 10/22/19 10:23 Ziagen - PO 600 mg DAILY SHERI Administration Albuterol/Ipratropium 1 amp 10/22/19 12:46 Duoneb - NEB Q6H PRN SHORTNESS OF BREATH Darunavir 800 mg 10/17/19 10:00 10/22/19 10:24 Prezista - PO 800 mg DAILY SHERI Administration Gabapentin 300 mg 10/17/19 10:00 10/22/19 10:23 Neurontin - PO 300 mg BID SHERI Administration Guaifenesin 10 ml 10/18/19 16:02 10/22/19 17:07 Robitussin - PO 10 ml Q6H PRN Administration COUGH Heparin Sodium (Porcine) 5,000 unit 10/17/19 06:00 10/22/19 14:28 Heparin - SQ Not Given TID SHERI Insulin Aspart 10 units 10/21/19 16:30 10/22/19 17:03 Novolog Vial SQ 10 units ACHS SHERI Administration Insulin Aspart 1 vial 10/22/19 07:00 10/22/19 17:03 Novolog Vial Sliding Scale - SQ 12 units ACHS SHERI Administration Protocol Insulin Aspart 35 units 10/22/19 07:00 10/22/19 17:04 Novolog Mix 70/30 Vial SQ 35 units BIDAC SHERI Administration Insulin Detemir 20 units 10/22/19 07:00 10/22/19 06:43 Levemir Vial SQ 20 units 0700,2200 SHERI Administration Lactobacillus Acidophilus 1 tab 10/17/19 10:00 10/22/19 10:24 Bacid - PO 1 tab DAILY SHERI Administration Lamivudine 300 mg 10/22/19 10:00 10/22/19 10:24 Epivir - PO 300 mg DAILY SHERI Administration Levalbuterol HCl 0.63 mg 10/20/19 22:54 10/22/19 14:49 Xopenex IH 0.63 mg RTID SHERI Administration Losartan Potassium 25 mg 10/17/19 10:00 10/22/19 10:23 Cozaar - PO 25 mg DAILY SHERI Administration Methylprednisolone Sodium Succinate 40 mg 10/20/19 15:00 10/22/19 15:18 Solu-Medrol - IVPUSH 40 mg Q6H-IV SHERI Administration Mirtazapine 15 mg 10/17/19 22:00 10/21/19 21:36 Remeron - PO 15 mg HS SHERI Administration Multivitamins 1 each 10/17/19 10:00 10/22/19 10:24 Total B With C - PO 1 each DAILY SHERI Administration Nystatin 500,000 units 10/21/19 18:00 10/22/19 17:03 Nystatin Oral Suspension - PO 500,000 units Q6HPO SHERI Administration Pantoprazole Sodium 40 mg 10/17/19 10:00 10/22/19 10:23 Protonix - PO 40 mg DAILY SHERI Administration Ritonavir 100 mg 10/17/19 10:00 10/22/19 10:24 Norvir - PO 100 mg DAILY SHERI Administration Trimethoprim/Sulfamethoxazole 1 each 10/17/19 10:00 10/21/19 10:06 Bactrim Ds - PO 1 each MoWeFr@1000 SHERI Administration Valacyclovir HCl 1,000 mg 10/19/19 10:00 10/22/19 10:23 Valtrex - PO 1,000 mg DAILY SHERI Administration Zolpidem Tartrate 5 mg 10/16/19 22:52 10/21/19 21:34 Ambien - PO 5 mg HS PRN Administration INSOMNIA ASSESSMENT/PLAN: ATTENDING PHYSICIAN STATEMENT I saw and evaluated the patient. I reviewed the resident's note and discussed the case with the resident. I agree with the resident's findings and plan as documented. SUBJECTIVE:no significant improvement in breathing. states she tried to walk earlier today and became severely dyspnic requiring supplemental oxygen and has not been able to remove since then. denies CP, fever, chills, N/V/C/D OBJECTIVE: Last Vital Signs Temp Pulse Resp BP Pulse Ox 98.3 F 117 H 20 168/97 94 L 10/22/19 14:22 10/22/19 14:22 10/22/19 14:22 10/22/19 14:10/22/19 10:20 General mild distress, tachypnic on movement CV s1 S2 tachycardic Lungs scattered wheezing. poor inspiratory effort ASSESSMENT AND PLAN: 64yo F wtih PMH HIV on HARRT, asthma, HTN, COPD, DM presenting with acute hypoxic respiratory failure due to COPD exacerbation and influenza B 1. Acute hypoxic respiratory failure due to COPD exacerabation and Influenza B- no significant improvement. completes tamiflu course today. cont with steroids at current dosing, medrol 40mg Q6H. will attempt to titrate down over the next 24H. nebs RTC, prn. pulmonary on board. requiring 3L Via nasal cannula to maintain sats >90%. can d/c droplet precautions 2. hyperglycemia- induced by steroids. cont with iss and levemir. should improve with steroid titration. A1c 7.8 3. Anemia of chronic disease- stable 4. FELIZ- liekly fluctating based on medication and fluid status. no further workup needed. monitor. 5. sick euthyroid syndrome- will need repeat TFT once medically stablized. seen by irvin 6. DVT ppx- hep sq rest of plan per resident
[2019-10-22] MEDS ORDERED: ALBUTEROL SO4 2.5/IPRATROPIUM 0.5 INH SOL 3 ML VIAL.NEB. NEB SCH (16:00)
[2019-10-22] MEDS: MIRTAZAPINE 15 MG TABLET (FP) PO SCH (22:09)
[2019-10-22] MEDS ORDERED: METOPROLOL TARTRATE 5 MG/5 ML VIAL IVPUSH ONE (22:33)
[2019-10-22] MEDS: ZOLPIDEM TARTRATE 5 MG TABLET PO PRN (23:11)
[2019-10-23] MEDS: methylPREDNISolone NA SUCC 40 MG/1 ML VIAL IVPUSH SCH ×4 (03:34→22:27)
[2019-10-23] MEDS: NYSTATIN 500,000 UNITS/5 ML SUSPENSION PO SCH ×4 (06:04→23:16)
[2019-10-23] MEDS: INSULIN (LEVEMIR) 100 UNITS/ML UNITS SQ SCH ×2 (06:05→23:15)
[2019-10-23] MEDS: INSULIN (NOVOLOG MIX 70/30) 100 UNITS/ML MDV SQ SCH ×2 (06:06→16:35)
[2019-10-23] MEDS: INSULIN SLIDING SCALE (NOVOLOG) 1 VIAL SQ SCH ×5 (06:07→23:15)
[2019-10-23] MEDS: INSULIN (NOVOLOG) ASPART 100 UNITS/ML 10ML VIAL SQ SCH ×4 (06:07→23:15)
[2019-10-23] MEDS: HEPARIN NA (PORCINE) 5,000 UNITS/ML 1ML VIAL SQ SCH ×3 (06:12→22:27)
[2019-10-23 07:00] LABS: BASO % 1.1 % (0-2.0); EOS % 2.6 % (0-4.5); LYMPH % 44.7 % (8-40); MCH 28.9 pg (25.7-33.7); MCHC 34.2 g/dl (32.0-36.0); MEAN CELL VOLUME 84.6 fl (80-96); MEAN PLT VOLUME 7.7 fl (7.5-11.1); MONO % 12.4 % (3.8-10.2); NEUT % 39.2 % (42.8-82.8); PLATELET COUNT 305 K/MM3 (134-434); RBC 4.49 M/mm3 (3.60-5.2); RDW 13.8 % (11.6-15.6); WHITE BLOOD COUNT 4.5 K/mm3 (4.0-10.0)
[2019-10-23 08:26] LABS: BLOOD UREA NITROGEN 23.4 mg/dL (7-18); CALCIUM 9.3 mg/dL (8.5-10.1); CREATININE 0.8 mg/dL (0.55-1.3); MAGNESIUM 2.3 mg/dL (1.8-2.4); POTASSIUM 4.5 mmol/L (3.5-5.1)
[2019-10-23] MEDS: LEVALBUTEROL HCL 0.63 MG/3 ML VIAL.NEB. IH SCH ×3 (08:26→20:27)
[2019-10-23] MEDS: PANTOPRAZOLE 40 MG TABLET PO SCH (09:25)
[2019-10-23] MEDS: LACTOBACILLUS ACIDOPHILUS 1 TABLET PO SCH (09:25)
[2019-10-23] MEDS: GABAPENTIN 300 MG CAPSULE PO SCH ×2 (09:25→22:27)
[2019-10-23] MEDS: valACYclovir HCL 500 MG TABLET (FP) PO SCH (09:25)
[2019-10-23] MEDS: LOSARTAN POTASSIUM 25 MG TABLET PO SCH (09:26)
[2019-10-23] MEDS: ABACAVIR SULFATE 300 MG TABLET PO SCH (09:30)
[2019-10-23] MEDS: VITAMIN B COMPLEX W/C COMBO TABLET (FP) PO SCH (09:30)
[2019-10-23] MEDS: RITONAVIR 100 MG TABLET PO SCH (09:30)
[2019-10-23] MEDS: lamiVUDine 150 MG TABLET PO SCH (09:30)
[2019-10-23] MEDS: DARUNAVIR ETHANOLATE 800 MG TAB PO SCH (09:31)
[2019-10-23] MEDS: guaiFENesin 200 MG/10 ML 10 ML UNIT-DOSE CUPS PO PRN (09:33)
[2019-10-23] MEDS: LOSARTAN POTASSIUM 50 MG TABLET (FP) PO SCH (09:34)
--- NOTE | 2019-10-23 12:01 | PN ---
Progress Note (short form) - Note Progress Note: Still with cough and wheezing. Feels about the same as yesterday. No hemoptysis. Intake & Output 10/20/19 10/21/19 10/22/19 10/23/19 23:59 23:59 23:59 23:59 Intake Total 360 1940 1145 140 Output Total 4 1 Balance 360 1936 1144 140 Weight 199 lb Last Vital Signs Temp Pulse Resp BP Pulse Ox 98.1 F 111 H 20 182/113 H 96 10/23/19 10:00 10/23/19 10:00 10/23/19 10:00 10/23/19 10:00 10/22/19 22:00 Active Medications Abacavir Sulfate (Ziagen -) 600 mg PO DAILY [facility] Last Admin: 10/23/19 09:30 Dose: 600 mg Albuterol/Ipratropium (Duoneb -) 1 amp NEB Q6H PRN PRN Reason: SHORTNESS OF BREATH Darunavir (Prezista -) 800 mg PO DAILY [facility] Last Admin: 10/23/19 09:31 Dose: 800 mg Gabapentin (Neurontin -) 300 mg PO BID [facility] Last Admin: 10/23/19 09:25 Dose: 300 mg Guaifenesin (Robitussin -) 10 ml PO Q6H PRN PRN Reason: COUGH Last Admin: 10/23/19 09:33 Dose: 10 ml Heparin Sodium (Porcine) (Heparin -) 5,000 unit SQ TID [facility] Last Admin: 10/23/19 06:12 Dose: Not Given Insulin Aspart (Novolog Vial) [address] [facility] Last Admin: 10/23/19 11:40 Dose: 10 units Insulin Aspart (Novolog Vial Sliding Scale -) 1 vial SQ ACHS [facility]; Protocol Last Admin: 10/23/19 11:41 Dose: 9 units Insulin Aspart (Novolog Mix 70/30 Vial) 35 units SQ BIDAC [facility] Last Admin: 10/23/19 06:06 Dose: 35 units Insulin Detemir (Levemir Vial) 20 units SQ 0700,2200 [facility] Last Admin: 10/23/19 06:05 Dose: 20 units Lactobacillus Acidophilus (Bacid -) 1 tab PO DAILY [facility] Last Admin: 10/23/19 09:25 Dose: 1 tab Lamivudine (Epivir -) 300 mg PO DAILY [facility] Last Admin: 10/23/19 09:30 Dose: 300 mg Levalbuterol HCl (Xopenex) 0.63 mg IH RTID [facility] Last Admin: 10/23/19 08:26 Dose: 0.63 mg Losartan Potassium (Cozaar -) 100 mg PO DAILY [facility] Last Admin: 10/23/19 09:34 Dose: 100 mg Methylprednisolone Sodium Succinate (Solu-Medrol -) 40 mg IVPUSH Q6H-IV [facility] Last Admin: 10/23/19 09:25 Dose: 40 mg Mirtazapine (Remeron -) 15 mg PO HS [facility] Last Admin: 10/22/19 22:09 Dose: 15 mg Multivitamins (Total B With C -) 1 each PO DAILY [facility] Last Admin: 10/23/19 09:30 Dose: 1 each Nystatin (Nystatin Oral Suspension -) 500,000 units PO Q6HPO [facility] Last Admin: 10/23/19 06:04 Dose: 500,000 units Pantoprazole Sodium (Protonix -) 40 mg PO DAILY [facility] Last Admin: 10/23/19 09:25 Dose: 40 mg Ritonavir (Norvir -) 100 mg PO DAILY [facility] Last Admin: 10/23/19 09:30 Dose: 100 mg Trimethoprim/Sulfamethoxazole (Bactrim Ds -) 1 each PO MoWeFr@1000 [facility] Last Admin: 10/21/19 10:06 Dose: 1 each Valacyclovir HCl (Valtrex -) 1,000 mg PO DAILY [facility] Last Admin: 10/23/19 09:25 Dose: 1,000 mg Zolpidem Tartrate (Ambien -) 5 mg PO HS PRN PRN Reason: INSOMNIA Last Admin: 10/22/19 23:11 Dose: 5 mg Constitutional: Yes: Mildly tachypneic at rest Eyes: Yes: WNL HENT: Yes: WNL Neck: Yes: WNL Cardiovascular: Yes: Regular Rate and Rhythm, S1, S2 Respiratory: Yes: Bilateral Rhonchi & Expiratory wheeze Gastrointestinal: Yes: Normal Bowel Sounds, Soft Extremities: Yes: WNL Edema: No Labs: Laboratory Results - last 24 hr 10/22/19 10/22/19 10/22/19 17:00 22:02 22:04 WBC RBC Hgb Hct MCV MCH MCHC RDW Plt Count MPV Absolute Neuts (auto) Neutrophils % Lymphocytes % Monocytes % Eosinophils % Basophils % Nucleated RBC % Sodium Potassium Chloride Carbon Dioxide Anion Gap BUN Creatinine Est GFR (CKD-EPI)AfAm Est GFR (CKD-EPI)NonAf POC Glucometer 362 468 481 Random Glucose Calcium Magnesium TSH 10/23/19 10/23/19 10/23/19 06:03 06:30 06:40 WBC 4.5 RBC 4.49 Hgb 13.0 Hct 38.0 D MCV 84.6 D MCH 28.9 MCHC 34.2 RDW 13.8 D Plt Count 305 MPV 7.7 D Absolute Neuts (auto) 1.8 Neutrophils % 39.2 L D Lymphocytes % 44.7 H D Monocytes % 12.4 H Eosinophils % 2.6 D Basophils % 1.1 Nucleated RBC % 0 Sodium 137 Potassium 4.5 Chloride 103 Carbon Dioxide 27 Anion Gap 7 L BUN 23.4 H Creatinine 0.8 Est GFR (CKD-EPI)AfAm 90.94 Est GFR (CKD-EPI)NonAf 78.46 POC Glucometer 334 Random Glucose 129 H Calcium 9.3 Magnesium 2.3 TSH 0.42 10/23/19 11:39 WBC RBC Hgb Hct MCV MCH MCHC RDW Plt Count MPV Absolute Neuts (auto) Neutrophils % Lymphocytes % Monocytes % Eosinophils % Basophils % Nucleated RBC % Sodium Potassium Chloride Carbon Dioxide Anion Gap BUN Creatinine Est GFR (CKD-EPI)AfAm Est GFR (CKD-EPI)NonAf POC Glucometer 315 Random Glucose Calcium Magnesium TSH Assessment/Plan Problem List - Problems (1) Influenza B Code(s): J10.1 - FLU DUE TO OTH IDENT INFLUENZA VIRUS W OTH RESP MANIFEST (2) AIDS Code(s): B20 - HUMAN IMMUNODEFICIENCY VIRUS [HIV] DISEASE (3) FELIZ (acute kidney injury) Code(s): N17.9 - ACUTE KIDNEY FAILURE, UNSPECIFIED (4) COPD exacerbation Code(s): J44.1 - CHRONIC OBSTRUCTIVE PULMONARY DISEASE W (ACUTE) EXACERBATION (5) Cough Code(s): R05 - COUGH (6) Diarrhea Code(s): R19.7 - DIARRHEA, UNSPECIFIED Qualifiers: Diarrhea type: unspecified type Qualified Code(s): R19.7 - Diarrhea, unspecified (7) Hypertension Code(s): I10 - ESSENTIAL (PRIMARY) HYPERTENSION (8) COPD (chronic obstructive pulmonary disease) Code(s): J44.9 - CHRONIC OBSTRUCTIVE PULMONARY DISEASE, UNSPECIFIED (9) Peripheral neuropathy Code(s): G62.9 - POLYNEUROPATHY, UNSPECIFIED Assessment/Plan Continue Medrol Q6 Supplemental O2 as needed Tamiflu BD TX standing and PRN VTE prophylaxis Glycemic control while on systemic steroids Dr Brandon Problem List - Problems (1) Influenza B Code(s): J10.1 - FLU DUE TO OTH IDENT INFLUENZA VIRUS W OTH RESP MANIFEST (2) AIDS Code(s): B20 - HUMAN IMMUNODEFICIENCY VIRUS [HIV] DISEASE (3) FELIZ (acute kidney injury) Code(s): N17.9 - ACUTE KIDNEY FAILURE, UNSPECIFIED (4) COPD exacerbation Code(s): J44.1 - CHRONIC OBSTRUCTIVE PULMONARY DISEASE W (ACUTE) EXACERBATION (5) Cough Code(s): R05 - COUGH (6) Diarrhea Code(s): R19.7 - DIARRHEA, UNSPECIFIED Qualifiers: Diarrhea type: unspecified type Qualified Code(s): R19.7 - Diarrhea, unspecified (7) Hypertension Code(s): I10 - ESSENTIAL (PRIMARY) HYPERTENSION (8) COPD (chronic obstructive pulmonary disease) Code(s): J44.9 - CHRONIC OBSTRUCTIVE PULMONARY DISEASE, UNSPECIFIED (9) Peripheral neuropathy Code(s): G62.9 - POLYNEUROPATHY, UNSPECIFIED
--- NOTE | 2019-10-23 15:03 | PN ---
Progress Note, Physician History of Present Illness: seen and examined at bedside with her 2 brothers and sister in law present. BP uncontrolled despite increasing losartan from 25mg po daily to 100mg. She denies nausea vomiting fever chills chest pain. Still has shortness of breath. - Current Medication List Current Medications: Active Medications Abacavir Sulfate (Ziagen -) 600 mg PO DAILY [facility] Last Admin: 10/23/19 09:30 Dose: 600 mg Albuterol/Ipratropium (Duoneb -) 1 amp NEB Q6H PRN PRN Reason: SHORTNESS OF BREATH Carvedilol (Coreg -) 6.25 mg PO BID [facility] Darunavir (Prezista -) 800 mg PO DAILY [facility] Last Admin: 10/23/19 09:31 Dose: 800 mg Gabapentin (Neurontin -) 300 mg PO BID [facility] Last Admin: 10/23/19 09:25 Dose: 300 mg Guaifenesin (Robitussin -) 10 ml PO Q6H PRN PRN Reason: COUGH Last Admin: 10/23/19 09:33 Dose: 10 ml Heparin Sodium (Porcine) (Heparin -) 5,000 unit SQ TID [facility] Last Admin: 10/23/19 14:23 Dose: Not Given Insulin Aspart (Novolog Vial) 10 units SQ ACHS [facility] Last Admin: 10/23/19 11:40 Dose: 10 units Insulin Aspart (Novolog Vial Sliding Scale -) 1 vial SQ ACHS [facility]; Protocol Last Admin: 10/23/19 11:41 Dose: 9 units Insulin Aspart (Novolog Mix 70/30 Vial) 35 units SQ BIDAC [facility] Last Admin: 10/23/19 06:06 Dose: 35 units Insulin Detemir (Levemir Vial) 20 units SQ 0700,2200 [facility] Last Admin: 10/23/19 06:05 Dose: 20 units Lactobacillus Acidophilus (Bacid -) 1 tab PO DAILY [facility] Last Admin: 10/23/19 09:25 Dose: 1 tab Lamivudine (Epivir -) 300 mg PO DAILY [facility] Last Admin: 10/23/19 09:30 Dose: 300 mg Levalbuterol HCl (Xopenex) 0.63 mg IH RTID [facility] Last Admin: 10/23/19 14:18 Dose: 0.63 mg Losartan Potassium (Cozaar -) 100 mg PO DAILY [facility] Last Admin: 10/23/19 09:34 Dose: 100 mg Methylprednisolone Sodium Succinate (Solu-Medrol -) 40 mg IVPUSH Q6H-IV [facility] Last Admin: 10/23/19 14:23 Dose: 40 mg Mirtazapine (Remeron -) 15 mg PO HS [facility] Last Admin: 10/22/19 22:09 Dose: 15 mg Multivitamins (Total B With C -) 1 each PO DAILY [facility] Last Admin: 10/23/19 09:30 Dose: 1 each Nystatin (Nystatin Oral Suspension -) 500,000 units PO Q6HPO [facility] Last Admin: 10/23/19 12:33 Dose: 500,000 units Pantoprazole Sodium (Protonix -) 40 mg PO DAILY [facility] Last Admin: 10/23/19 09:25 Dose: 40 mg Ritonavir (Norvir -) 100 mg PO DAILY [facility] Last Admin: 10/23/19 09:30 Dose: 100 mg Trimethoprim/Sulfamethoxazole (Bactrim Ds -) 1 each PO MoWeFr@1000 [facility] Last Admin: 10/21/19 10:06 Dose: 1 each Valacyclovir HCl (Valtrex -) 1,000 mg PO DAILY [facility] Last Admin: 10/23/19 09:25 Dose: 1,000 mg Zolpidem Tartrate (Ambien -) 5 mg PO HS PRN PRN Reason: INSOMNIA Last Admin: 10/22/19 23:11 Dose: 5 mg - Objective Vital Signs: Vital Signs Temperature 98.1 F 10/23/19 14:29 Pulse Rate 102 H 10/23/19 14:29 Respiratory Rate 18 10/23/19 14:29 Blood Pressure 156/102 H 10/23/19 14:29 O2 Sat by Pulse Oximetry (%) 97 10/23/19 09:00 Constitutional: Yes: No Distress, Obese Eyes: Yes: Conjunctiva Clear, EOM Intact HENT: Yes: Atraumatic Neck: Yes: Other (Possible lymphadenopathy. difficult to asssess) Cardiovascular: Yes: Tachycardia. No: Murmur Respiratory: Yes: Rhonchi (bilateral), Wheezes (bilateral) Gastrointestinal: Yes: Normal Bowel Sounds, Soft, Abdomen, Obese Edema: Yes Edema: LLE: Trace, RLE: 1+ Neurological: Yes: Alert, Oriented ...Motor Strength: WNL Psychiatric: Yes: Alert, Oriented Labs: CBC, BMP 10/23/19 06:30 10/23/19 06:40 INR, PTT INR 1.02 (0.83-1.09) 10/16/19 18:31 - ....Imaging Chest X-ray: Report Reviewed, Image Reviewed (from admission) Impression/Plan Impression/Plan: Patient is a 64 year old female with a past medical history of HIV (09/29/19 CD4 104, viral load 70), HTN, HLD, COPD, GERD admitted for COPD exacerbation secondary to influenza B. acute respiratory failure secondary to a combination of COPD Exacerbation likely and Influenza B infection. Possible volume overloaded will get CXR droplet precautions continue bronchodilators standing and prn Continue IV Solumedrol 40mg q6h Tamiflu 75mg bid for 5 days protonix while on steroids Robitussin prn for cough pulmonology (Dr. Brandon) consulted. recommendations appreciated ID(Dr Ivey) consulted. Recommendations appreciated. Newly diagnosed T2DM A1c 7.8% Endo consult noted and appreciated continue current regimen of levemir 20 BID and 70/30 35 units BID 10units of novolog standing premeal plus sliding scale HIV continue HAART Bactrim Valtrex ID consult noted and appreciated FELIZ resolved HTN uncontrolled I increased losartan to 100mg this AM from 25mg and still BP remains uncontrolled in the 160s-180s systolic Will add coreg 6.25mg po BID will get CXR to see if patient needs some diuresis GERD continue Protonix Elevated TSH sick euthryoid vs nodular endo consult noted and appreciated Thyroid US as outpt repeat TFTs as outpt once acute illness resolves PPx DVT: heparin 5000 units sq tid GI: Protonix Deconditioning: she is ambulating Visit type - Emergency Visit Emergency Visit: Yes ED Registration Date: 10/16/19 Care time: The patient presented to the Emergency Department on the above date and was hospitalized for further evaluation of their emergent condition. - New Patient This patient is new to me today: Yes Date on this admission: 10/23/19 - Critical Care Critical Care patient: No
[2019-10-23] MEDS ORDERED: CARVEDILOL 6.25 MG TABLET (FP) PO ONE (15:23)
[2019-10-23] MEDS ORDERED: INSULIN SLIDING SCALE (NOVOLOG) 1 VIAL SQ ONE (16:41)
--- NOTE | 2019-10-23 22:21 | PN ---
Progress Note, Physician Chief Complaint: short of breath and coughing - Current Medication List Current Medications: Active Medications Abacavir Sulfate (Ziagen -) 600 mg PO DAILY [facility] Last Admin: 10/23/19 09:30 Dose: 600 mg Albuterol/Ipratropium (Duoneb -) 1 amp NEB Q6H PRN PRN Reason: SHORTNESS OF BREATH Carvedilol (Coreg -) 6.25 mg PO BID [facility] Darunavir (Prezista -) 800 mg PO DAILY [facility] Last Admin: 10/23/19 09:31 Dose: 800 mg Gabapentin (Neurontin -) 300 mg PO BID [facility] Last Admin: 10/23/19 09:25 Dose: 300 mg Guaifenesin (Robitussin -) 10 ml PO Q6H PRN PRN Reason: COUGH Last Admin: 10/23/19 09:33 Dose: 10 ml Heparin Sodium (Porcine) (Heparin -) 5,000 unit SQ TID [facility] Last Admin: 10/23/19 14:23 Dose: Not Given Insulin Aspart (Novolog Vial) 10 units SQ [facility] Last Admin: 10/23/19 16:36 Dose: 10 units Insulin Aspart (Novolog Vial Sliding Scale -) 1 vial SQ [facility]; Protocol Last Admin: 10/23/19 16:37 Dose: 9 units Insulin Aspart (Novolog Mix 70/30 Vial) 45 units SQ BIDAC [facility] Insulin Detemir (Levemir Vial) 20 units SQ 0700,2200 [facility] Last Admin: 10/23/19 06:05 Dose: 20 units Lactobacillus Acidophilus (Bacid -) 1 tab PO DAILY [facility] Last Admin: 10/23/19 09:25 Dose: 1 tab Lamivudine (Epivir -) 300 mg PO DAILY [facility] Last Admin: 10/23/19 09:30 Dose: 300 mg Levalbuterol HCl (Xopenex) 0.63 mg IH RTID [facility] Last Admin: 10/23/19 20:27 Dose: 0.63 mg Losartan Potassium (Cozaar -) 100 mg PO DAILY [facility] Last Admin: 10/23/19 09:34 Dose: 100 mg Methylprednisolone Sodium Succinate (Solu-Medrol -) 40 mg IVPUSH Q6H-IV [facility] Last Admin: 10/23/19 14:23 Dose: 40 mg Mirtazapine (Remeron -) 15 mg PO HS [facility] Last Admin: 10/22/19 22:09 Dose: 15 mg Multivitamins (Total B With C -) 1 each PO DAILY [facility] Last Admin: 10/23/19 09:30 Dose: 1 each Nystatin (Nystatin Oral Suspension -) 500,000 units PO Q6HPO [facility] Last Admin: 10/23/19 17:11 Dose: 500,000 units Pantoprazole Sodium (Protonix -) 40 mg PO DAILY [facility] Last Admin: 10/23/19 09:25 Dose: 40 mg Ritonavir (Norvir -) 100 mg PO DAILY [facility] Last Admin: 10/23/19 09:30 Dose: 100 mg Trimethoprim/Sulfamethoxazole (Bactrim Ds -) 1 each PO MoWeFr@1000 [facility] Last Admin: 10/21/19 10:06 Dose: 1 each Valacyclovir HCl (Valtrex -) 1,000 mg PO DAILY [facility] Last Admin: 10/23/19 09:25 Dose: 1,000 mg Zolpidem Tartrate (Ambien -) 5 mg PO HS PRN PRN Reason: INSOMNIA Last Admin: 10/22/19 23:11 Dose: 5 mg - Objective Vital Signs: Vital Signs Temperature 98.1 F 10/23/19 18:00 Pulse Rate 100 H 10/23/19 18:00 Respiratory Rate 18 10/23/19 18:00 Blood Pressure 180/110 H 10/23/19 18:00 O2 Sat by Pulse Oximetry (%) 96 10/23/19 20:32 Constitutional: Yes: Anxious Eyes: Yes: EOM Intact HENT: Yes: Normocephalic Neck: Yes: Trachea Midline Cardiovascular: Yes: Tachycardia Respiratory: Yes: On Nasal O2, SOB, Tachypnea Gastrointestinal: Yes: Abdomen, Obese ...Rectal Exam: Yes: Deferred Genitourinary: Yes: WNL Musculoskeletal: Yes: WNL Extremities: Yes: WNL Edema: Yes Edema: RLE: 1+ Neurological: Yes: Alert, Oriented Labs: CBC, BMP 10/23/19 06:30 10/23/19 06:40 INR, PTT INR 1.02 (0.83-1.09) 10/16/19 18:31 Problem List - Problems (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 Code(s): E11.618 - TYPE 2 DIABETES MELLITUS WITH OTHER DIABETIC ARTHROPATHY (2) AIDS Code(s): B20 - HUMAN IMMUNODEFICIENCY VIRUS [HIV] DISEASE (3) FELIZ (acute kidney injury) Code(s): N17.9 - ACUTE KIDNEY FAILURE, UNSPECIFIED (4) Abnormal LFTs Code(s): R94.5 - ABNORMAL RESULTS OF LIVER FUNCTION STUDIES (5) Acute exacerbation of COPD with asthma Code(s): J44.1 - CHRONIC OBSTRUCTIVE PULMONARY DISEASE W (ACUTE) EXACERBATION; J45.901 - UNSPECIFIED ASTHMA WITH (ACUTE) EXACERBATION (6) Asthma exacerbation Code(s): J45.901 - UNSPECIFIED ASTHMA WITH (ACUTE) EXACERBATION Assessment/Plan Current Active Problems Influenza B (Acute) Type 2 diabetes mellitus with other diabetic arthropathy (Acute) Laboratory Results - last 24 hr 10/23/19 10/23/19 10/23/19 06:03 06:30 06:40 WBC 4.5 RBC 4.49 Hgb 13.0 Hct 38.0 D MCV 84.6 D MCH 28.9 MCHC 34.2 RDW 13.8 D Plt Count 305 MPV 7.7 D Absolute Neuts (auto) 1.8 Neutrophils % 39.2 L D Lymphocytes % 44.7 H D Monocytes % 12.4 H Eosinophils % 2.6 D Basophils % 1.1 Nucleated RBC % 0 Sodium 137 Potassium 4.5 Chloride 103 Carbon Dioxide 27 Anion Gap 7 L BUN 23.4 H Creatinine 0.8 Est GFR (CKD-EPI)AfAm 90.94 Est GFR (CKD-EPI)NonAf 78.46 POC Glucometer 334 Random Glucose 129 H Calcium 9.3 Magnesium 2.3 TSH 0.42 10/23/19 10/23/19 11:39 16:32 WBC RBC Hgb Hct MCV MCH MCHC RDW Plt Count MPV Absolute Neuts (auto) Neutrophils % Lymphocytes % Monocytes % Eosinophils % Basophils % Nucleated RBC % Sodium Potassium Chloride Carbon Dioxide Anion Gap BUN Creatinine Est GFR (CKD-EPI)AfAm Est GFR (CKD-EPI)NonAf POC Glucometer 315 332 Random Glucose Calcium Magnesium TSH plan: novolog 70/30 bid doses titrate for high sugars when off iv steroid will lower insulin doses
[2019-10-23] MEDS ORDERED: INSULIN SLIDING SCALE (NOVOLOG) 1 VIAL SQ SCH (22:22)
[2019-10-23] MEDS: CARVEDILOL 6.25 MG TABLET (FP) PO SCH (22:26)
[2019-10-23] MEDS: MIRTAZAPINE 15 MG TABLET (FP) PO SCH (22:27)
[2019-10-23] MEDS: ZOLPIDEM TARTRATE 5 MG TABLET PO PRN (23:16)
[2019-10-24] MEDS: methylPREDNISolone NA SUCC 40 MG/1 ML VIAL IVPUSH SCH ×4 (02:23→21:17)
[2019-10-24] MEDS ORDERED: INSULIN (NOVOLOG) ASPART 100 UNITS/ML 10ML VIAL SQ ONE (02:37)
[2019-10-24] MEDS: INSULIN SLIDING SCALE (NOVOLOG) 1 VIAL SQ SCH ×4 (06:47→21:31)
[2019-10-24] MEDS: HEPARIN NA (PORCINE) 5,000 UNITS/ML 1ML VIAL SQ SCH ×3 (06:47→21:20)
[2019-10-24] MEDS: NYSTATIN 500,000 UNITS/5 ML SUSPENSION PO SCH ×3 (06:47→18:02)
[2019-10-24] MEDS: INSULIN (NOVOLOG) ASPART 100 UNITS/ML 10ML VIAL SQ SCH ×4 (06:47→21:19)
[2019-10-24] MEDS: INSULIN (LEVEMIR) 100 UNITS/ML UNITS SQ SCH ×2 (06:48→21:19)
[2019-10-24] MEDS: INSULIN (NOVOLOG MIX 70/30) 100 UNITS/ML MDV SQ SCH ×2 (06:48→16:57)
[2019-10-24 06:51] LABS: BASO % 0.4 % (0-2.0); HEMATOCRIT 34.7 % (32.4-45.2); HEMOGLOBIN 11.1 GM/dL (10.7-15.3); LYMPH % 11.6 % (8-40); MCH 30.4 pg (25.7-33.7); MCHC 32.1 g/dl (32.0-36.0); MEAN CELL VOLUME 94.7 fl (80-96); MEAN PLT VOLUME 8.4 fl (7.5-11.1); PLATELET COUNT 285 K/MM3 (134-434); RBC 3.66 M/mm3 (3.60-5.2); RDW 17.9 % (11.6-15.6); WHITE BLOOD COUNT 13.4 K/mm3 (4.0-10.0)
[2019-10-24 07:23] LABS: BLOOD UREA NITROGEN 23.7 mg/dL (7-18); CALCIUM 8.4 mg/dL (8.5-10.1); CREATININE 1.3 mg/dL (0.55-1.3); POTASSIUM 3.4 mmol/L (3.5-5.1)
--- NOTE | 2019-10-24 07:32 | PN ---
Physical Exam: SUBJECTIVE: Patient seen and examined no acute events over night denies any fever or chills, chest pain is better , still some congestion increase steroids to Q 6hr OBJECTIVE: Vital Signs Period Temp Pulse Resp BP Sys/Inman Pulse Ox Last 24 Hr 97.5 F-98.1 F 85-111 18-20 137-182/88-113 96-97 GENERAL:AAO3 , IN NAD on droplet isolation HEAD: NC/At EYES: PERRL, extraocular movements intact, ENT: Ears normal, nares patent, oropharynx clear without exudates, moist mucous membranes. NECK: supple. LUNGS: Breath sounds equal, clear to auscultation bilaterally, some wheezes at the bases , no crackles, no accessory muscle use. HEART: sinus tachy , S1, S2 without murmur, rub or gallop. ABDOMEN: obese,Soft, nontender, nondistended, normoactive bowel sounds, EXTREMITIES: 2+ pulses, warm, well-perfused, no edema. NEUROLOGICAL: no focal deficit Laboratory Results - last 24 hr 10/23/19 10/23/19 10/23/19 06:40 11:39 16:32 WBC RBC Hgb Hct MCV MCH MCHC RDW Plt Count MPV Absolute Neuts (auto) Neutrophils % Lymphocytes % Monocytes % Eosinophils % Basophils % Nucleated RBC % Sodium 137 Potassium 4.5 Chloride 103 Carbon Dioxide 27 Anion Gap 7 L BUN 23.4 H Creatinine 0.8 Est GFR (CKD-EPI)AfAm 90.94 Est GFR (CKD-EPI)NonAf 78.46 POC Glucometer 315 332 Random Glucose 129 H Calcium 9.3 Magnesium 2.3 TSH 0.42 10/23/19 10/24/19 10/24/19 22:24 02:28 06:00 WBC RBC Hgb Hct MCV MCH MCHC RDW Plt Count MPV Absolute Neuts (auto) Neutrophils % Lymphocytes % Monocytes % Eosinophils % Basophils % Nucleated RBC % Sodium 139 Potassium 3.4 L Chloride 104 Carbon Dioxide 25 Anion Gap 10 BUN 23.7 H Creatinine 1.3 Est GFR (CKD-EPI)AfAm 50.56 Est GFR (CKD-EPI)NonAf 43.62 POC Glucometer 423 400 Random Glucose 356 H Calcium 8.4 L Magnesium TSH 10/24/19 10/24/19 06:04 06:15 WBC 13.4 H RBC 3.66 Hgb 11.1 Hct 34.7 MCV 94.7 D MCH 30.4 MCHC 32.1 RDW 17.9 H Plt Count 285 MPV 8.4 Absolute Neuts (auto) 11.1 H Neutrophils % 83.0 H D Lymphocytes % 11.6 D Monocytes % 5.0 Eosinophils % 0.0 D Basophils % 0.4 Nucleated RBC % 2 H Sodium Potassium Chloride Carbon Dioxide Anion Gap BUN Creatinine Est GFR (CKD-EPI)AfAm Est GFR (CKD-EPI)NonAf POC Glucometer 314 Random Glucose Calcium Magnesium TSH Active Medications Generic Name Dose Route Start Last Admin Trade Name Freq PRN Reason Stop Dose Admin Abacavir Sulfate 600 mg 10/17/19 10:00 10/23/19 09:30 Ziagen - PO 600 mg DAILY [facility] Administration Albuterol/Ipratropium 1 amp 10/22/19 12:46 Duoneb - NEB Q6H PRN SHORTNESS OF BREATH Carvedilol 6.25 mg 10/23/19 22:00 10/23/19 22:26 Coreg - PO 6.25 mg BID [facility] Administration Darunavir 800 mg 10/17/19 10:00 10/23/19 09:31 Prezista - PO 800 mg DAILY [facility] Administration Gabapentin 300 mg 10/17/19 10:00 10/23/19 22:27 Neurontin - PO 300 mg BID [facility] Administration Guaifenesin 10 ml 10/18/19 16:02 10/23/19 09:33 Robitussin - PO 10 ml Q6H PRN Administration COUGH Heparin Sodium (Porcine) 5,000 unit 10/17/19 06:00 10/24/19 06:47 Heparin - SQ Not Given TID [facility] Insulin Aspart 10 units 10/21/19 16:30 10/24/19 06:47 Novolog Vial SQ 10 units ACHS [facility] Administration Insulin Aspart 45 units 10/24/19 07:00 10/24/19 06:48 Novolog Mix 70/30 Vial SQ 45 units BIDAC [facility] Administration Insulin Aspart 1 vial 10/23/19 23:15 10/24/19 06:47 Novolog Vial Sliding Scale - SQ 12 units ACHS [facility] Administration Protocol Insulin Detemir 20 units 10/22/19 07:00 10/24/19 06:48 Levemir Vial SQ 20 units 0700,2200 [facility] Administration Lactobacillus Acidophilus 1 tab 10/17/19 10:00 10/23/19 09:25 Bacid - PO 1 tab DAILY [facility] Administration Lamivudine 300 mg 10/22/19 10:00 10/23/19 09:30 Epivir - PO 300 mg DAILY [facility] Administration Levalbuterol HCl 0.63 mg 10/20/19 22:54 10/23/19 20:27 Xopenex IH 0.63 mg RTID [facility] Administration Losartan Potassium 100 mg 10/23/19 09:27 10/23/19 09:34 Cozaar - PO 100 mg DAILY [facility] Administration Methylprednisolone Sodium Succinate 40 mg 10/20/19 15:00 10/24/19 02:23 Solu-Medrol - IVPUSH 40 mg Q6H-IV [facility] Administration Mirtazapine 15 mg 10/17/19 22:00 10/23/19 22:27 Remeron - PO 15 mg HS [facility] Administration Multivitamins 1 each 10/17/19 10:00 10/23/19 09:30 Total B With C - PO 1 each DAILY [facility] Administration Nystatin 500,000 units 10/21/19 18:00 10/24/19 06:47 Nystatin Oral Suspension - PO 500,000 units Q6HPO [facility] Administration Pantoprazole Sodium 40 mg 10/17/19 10:00 10/23/19 09:25 Protonix - PO 40 mg DAILY [facility] Administration Ritonavir 100 mg 10/17/19 10:00 10/23/19 09:30 Norvir - PO 100 mg DAILY [facility] Administration Trimethoprim/Sulfamethoxazole 1 each 10/17/19 10:00 10/21/19 10:06 Bactrim Ds - PO 1 each MoWeFr@1000 [facility] Administration Valacyclovir HCl 1,000 mg 10/19/19 10:00 10/23/19 09:25 Valtrex - PO 1,000 mg DAILY [facility] Administration Zolpidem Tartrate 5 mg 10/16/19 22:52 10/23/19 23:16 Ambien - PO 5 mg HS PRN Administration INSOMNIA CBC, BMP 10/24/19 06:15 10/24/19 06:00 ASSESSMENT/PLAN: Uzma Monroe is a 64 year old female with a past medical history of HIV ( CD4 104, viral load 70), HTN, HLD, COPD, GERD admitted for COPD exacerbation secondary to influenza B. # sepsis 2/2 influneza B + , improved * cont ghada flue * cont abx prophylaxis # Acute COPD Exacerbation 2/2 Influenza B+ * droplet isolation * Tamiflue renal dose * duoneb and labuterol * pulmonary consulted increase steroids Sulomedrol to 40 Q 6 hr , switch to PO in Am per pulmonary * Spiriva daily * azithromycin 500mg once and continue azithromycin 250mg daily, completed * PPI as on steroids # type 2 DM , newy diagnosed * exacerbated by steroids use started on ISS and levimer 20 BID and novoloh 70/ 30 45 units BID * A1c 7.8 * endo consulted Dr darling #HIV * continue home medications * Bactrim DS MWF * ID consulted # oral thrush due to steroids vs HIV start Nystatin #FELIZ, resolved , likely pre renal * CRE 1.5 (baseline 0.9-1.2) # cough start Robutossin # Hoarsness in her voice due to flue , cont treatment #HTN * increase losartan to 100 mg daily add BB carvedilol 6.25 BID #GERD * cont Protonix # weight gain , pt reports she gain 100 pound during last year she needs to follow up with endocrinology as out pt.R.O curtis syndrome , morning cortisole #DVT PPx * heparin 5000 units subq tid # Sinys tachy cardia due to flue vs albuterol SE started on BB # euthyrid sick syndrome TSH low will repeat as out pt after acute phase * Ft3 , Ft4 noted repeat as out pt * follow up wit us and endocrinology as out pt # UTI : no signs UTI negative UA, 30k colony count - no need to treat per ID #FEN * NS 2.5L bolus due to septic vitals, * continue to monitor electrolytes and replete as necessary, hypokalemia noted and repleted * Sodium controlled diet # Tele monitor Visit type - Emergency Visit Emergency Visit: Yes ED Registration Date: 10/16/19 Care time: The patient presented to the Emergency Department on the above date and was hospitalized for further evaluation of their emergent condition. - New Patient This patient is new to me today: No - Critical Care Critical Care patient: No - Discharge Referral Referred to [facility] Med [facility].C[facility] No ATTENDING PHYSICIAN STATEMENT I saw and evaluated the patient. I reviewed the resident's note and discussed the case with the resident. I agree with the resident's findings and plan as documented. SUBJECTIVE: OBJECTIVE: ASSESSMENT AND PLAN:
[2019-10-24] MEDS: LEVALBUTEROL HCL 0.63 MG/3 ML VIAL.NEB. IH SCH ×3 (08:34→20:33)
[2019-10-24] MEDS ORDERED: PT OWN MED DRAWER 7, Y5N ONE (09:04)
[2019-10-24] MEDS: SULFAMETHOXAZOLE/TRIMETHOPRIM 800MG/160MG D.S. TABLET PO SCH (09:08)
[2019-10-24] MEDS: PANTOPRAZOLE 40 MG TABLET PO SCH (09:09)
[2019-10-24] MEDS: LOSARTAN POTASSIUM 50 MG TABLET (FP) PO SCH (09:09)
[2019-10-24] MEDS: valACYclovir HCL 500 MG TABLET (FP) PO SCH (09:09)
[2019-10-24] MEDS: CARVEDILOL 6.25 MG TABLET (FP) PO SCH ×2 (09:09→21:17)
[2019-10-24] MEDS: LACTOBACILLUS ACIDOPHILUS 1 TABLET PO SCH (09:09)
[2019-10-24] MEDS: GABAPENTIN 300 MG CAPSULE PO SCH ×2 (09:09→21:17)
[2019-10-24] MEDS: lamiVUDine 150 MG TABLET PO SCH (09:10)
[2019-10-24] MEDS: RITONAVIR 100 MG TABLET PO SCH (09:10)
[2019-10-24] MEDS: ABACAVIR SULFATE 300 MG TABLET PO SCH (09:11)
[2019-10-24] MEDS: VITAMIN B COMPLEX W/C COMBO TABLET (FP) PO SCH (09:11)
[2019-10-24] MEDS: DARUNAVIR ETHANOLATE 800 MG TAB PO SCH (09:11)
[2019-10-24 10:30] LABS: ANISOCYTOSIS 2+; MACROCYTOSIS 0; PLATELET ESTIMATE NORMAL
--- NOTE | 2019-10-24 11:22 | PN ---
Progress Note (short form) - Note Progress Note: Still with cough and wheezing but improved. Feels better than yesterday. No hemoptysis. Laboratory Results - last 24 hr 10/23/19 10/23/19 10/23/19 11:39 16:32 22:24 WBC RBC Hgb Hct MCV MCH MCHC RDW Plt Count MPV Absolute Neuts (auto) Neutrophils % Neutrophils % (Manual) Band Neutrophils % Lymphocytes % Lymphocytes % (Manual) Monocytes % Monocytes % (Manual) Eosinophils % Eosinophils % (Manual) Basophils % Basophils % (Manual) Myelocytes % (Man) Promyelocytes % (Man) Blast Cells % (Manual) Nucleated RBC % Metamyelocytes Hypochromia Platelet Estimate Polychromasia Poikilocytosis Anisocytosis Microcytosis Macrocytosis Sodium Potassium Chloride Carbon Dioxide Anion Gap BUN Creatinine Est GFR (CKD-EPI)AfAm Est GFR (CKD-EPI)NonAf POC Glucometer 315 332 423 Random Glucose Calcium 10/24/19 10/24/19 10/24/19 02:28 06:00 06:04 WBC RBC Hgb Hct MCV MCH MCHC RDW Plt Count MPV Absolute Neuts (auto) Neutrophils % Neutrophils % (Manual) Band Neutrophils % Lymphocytes % Lymphocytes % (Manual) Monocytes % Monocytes % (Manual) Eosinophils % Eosinophils % (Manual) Basophils % Basophils % (Manual) Myelocytes % (Man) Promyelocytes % (Man) Blast Cells % (Manual) Nucleated RBC % Metamyelocytes Hypochromia Platelet Estimate Polychromasia Poikilocytosis Anisocytosis Microcytosis Macrocytosis Sodium 139 Potassium 3.4 L Chloride 104 Carbon Dioxide 25 Anion Gap 10 BUN 23.7 H Creatinine 1.3 Est GFR (CKD-EPI)AfAm 50.56 Est GFR (CKD-EPI)NonAf 43.62 POC Glucometer 400 314 Random Glucose 356 H Calcium 8.4 L 10/24/19 06:15 WBC 13.4 H RBC 3.66 Hgb 11.1 Hct 34.7 MCV 94.7 D MCH 30.4 MCHC 32.1 RDW 17.9 H Plt Count 285 MPV 8.4 Absolute Neuts (auto) 11.1 H Neutrophils % 83.0 H D Neutrophils % (Manual) 75.8 Band Neutrophils % 1.1 Lymphocytes % 11.6 D Lymphocytes % (Manual) 10.5 Monocytes % 5.0 Monocytes % (Manual) 4 Eosinophils % 0.0 D Eosinophils % (Manual) 0.0 Basophils % 0.4 Basophils % (Manual) 0.0 Myelocytes % (Man) 0 D Promyelocytes % (Man) 0 D Blast Cells % (Manual) 0 D Nucleated RBC % 2 H Metamyelocytes 8 H D Hypochromia 0 Platelet Estimate Normal Polychromasia 1+ Poikilocytosis 1+ Anisocytosis 2+ Microcytosis 1+ Macrocytosis 0 Sodium Potassium Chloride Carbon Dioxide Anion Gap BUN Creatinine Est GFR (CKD-EPI)AfAm Est GFR (CKD-EPI)NonAf POC Glucometer Random Glucose Calcium Constitutional: Yes: Less tachypneic at rest Eyes: Yes: WNL HENT: Yes: WNL Neck: Yes: WNL Cardiovascular: Yes: Regular Rate and Rhythm, S1, S2 Respiratory: Yes: Bilateral Rhonchi & Expiratory wheeze Gastrointestinal: Yes: Normal Bowel Sounds, Soft Extremities: Yes: WNL Edema: No Labs: Laboratory Results - last 24 hr 10/23/19 10/23/19 10/23/19 11:39 16:32 22:24 WBC RBC Hgb Hct MCV MCH MCHC RDW Plt Count MPV Absolute Neuts (auto) Neutrophils % Neutrophils % (Manual) Band Neutrophils % Lymphocytes % Lymphocytes % (Manual) Monocytes % Monocytes % (Manual) Eosinophils % Eosinophils % (Manual) Basophils % Basophils % (Manual) Myelocytes % (Man) Promyelocytes % (Man) Blast Cells % (Manual) Nucleated RBC % Metamyelocytes Hypochromia Platelet Estimate Polychromasia Poikilocytosis Anisocytosis Microcytosis Macrocytosis Sodium Potassium Chloride Carbon Dioxide Anion Gap BUN Creatinine Est GFR (CKD-EPI)AfAm Est GFR (CKD-EPI)NonAf POC Glucometer 315 332 423 Random Glucose Calcium 10/24/19 10/24/19 10/24/19 02:28 06:00 06:04 WBC RBC Hgb Hct MCV MCH MCHC RDW Plt Count MPV Absolute Neuts (auto) Neutrophils % Neutrophils % (Manual) Band Neutrophils % Lymphocytes % Lymphocytes % (Manual) Monocytes % Monocytes % (Manual) Eosinophils % Eosinophils % (Manual) Basophils % Basophils % (Manual) Myelocytes % (Man) Promyelocytes % (Man) Blast Cells % (Manual) Nucleated RBC % Metamyelocytes Hypochromia Platelet Estimate Polychromasia Poikilocytosis Anisocytosis Microcytosis Macrocytosis Sodium 139 Potassium 3.4 L Chloride 104 Carbon Dioxide 25 Anion Gap 10 BUN 23.7 H Creatinine 1.3 Est GFR (CKD-EPI)AfAm 50.56 Est GFR (CKD-EPI)NonAf 43.62 POC Glucometer 400 314 Random Glucose 356 H Calcium 8.4 L 10/24/19 06:15 WBC 13.4 H RBC 3.66 Hgb 11.1 Hct 34.7 MCV 94.7 D MCH 30.4 MCHC 32.1 RDW 17.9 H Plt Count 285 MPV 8.4 Absolute Neuts (auto) 11.1 H Neutrophils % 83.0 H D Neutrophils % (Manual) 75.8 Band Neutrophils % 1.1 Lymphocytes % 11.6 D Lymphocytes % (Manual) 10.5 Monocytes % 5.0 Monocytes % (Manual) 4 Eosinophils % 0.0 D Eosinophils % (Manual) 0.0 Basophils % 0.4 Basophils % (Manual) 0.0 Myelocytes % (Man) 0 D Promyelocytes % (Man) 0 D Blast Cells % (Manual) 0 D Nucleated RBC % 2 H Metamyelocytes 8 H D Hypochromia 0 Platelet Estimate Normal Polychromasia 1+ Poikilocytosis 1+ Anisocytosis 2+ Microcytosis 1+ Macrocytosis 0 Sodium Potassium Chloride Carbon Dioxide Anion Gap BUN Creatinine Est GFR (CKD-EPI)AfAm Est GFR (CKD-EPI)NonAf POC Glucometer Random Glucose Calcium Assessment/Plan Problem List - Problems (1) Influenza B Code(s): J10.1 - FLU DUE TO OTH IDENT INFLUENZA VIRUS W OTH RESP MANIFEST (2) AIDS Code(s): B20 - HUMAN IMMUNODEFICIENCY VIRUS [HIV] DISEASE (3) FELIZ (acute kidney injury) Code(s): N17.9 - ACUTE KIDNEY FAILURE, UNSPECIFIED (4) COPD exacerbation Code(s): J44.1 - CHRONIC OBSTRUCTIVE PULMONARY DISEASE W (ACUTE) EXACERBATION (5) Cough Code(s): R05 - COUGH (6) Diarrhea Code(s): R19.7 - DIARRHEA, UNSPECIFIED Qualifiers: Diarrhea type: unspecified type Qualified Code(s): R19.7 - Diarrhea, unspecified (7) Hypertension Code(s): I10 - ESSENTIAL (PRIMARY) HYPERTENSION (8) COPD (chronic obstructive pulmonary disease) Code(s): J44.9 - CHRONIC OBSTRUCTIVE PULMONARY DISEASE, UNSPECIFIED (9) Peripheral neuropathy Code(s): G62.9 - POLYNEUROPATHY, UNSPECIFIED Assessment/Plan Continue Medrol Q6: Can likely change to Prednisone in the AM Supplemental O2 as needed Tamiflu BD TX standing and PRN VTE prophylaxis Glycemic control while on systemic steroids Dr Brandon Problem List - Problems (1) Influenza B Code(s): J10.1 - FLU DUE TO OTH IDENT INFLUENZA VIRUS W OTH RESP MANIFEST (2) AIDS Code(s): B20 - HUMAN IMMUNODEFICIENCY VIRUS [HIV] DISEASE (3) FELIZ (acute kidney injury) Code(s): N17.9 - ACUTE KIDNEY FAILURE, UNSPECIFIED (4) COPD exacerbation Code(s): J44.1 - CHRONIC OBSTRUCTIVE PULMONARY DISEASE W (ACUTE) EXACERBATION (5) Cough Code(s): R05 - COUGH (6) Diarrhea Code(s): R19.7 - DIARRHEA, UNSPECIFIED Qualifiers: Diarrhea type: unspecified type Qualified Code(s): R19.7 - Diarrhea, unspecified (7) Hypertension Code(s): I10 - ESSENTIAL (PRIMARY) HYPERTENSION (8) COPD (chronic obstructive pulmonary disease) Code(s): J44.9 - CHRONIC OBSTRUCTIVE PULMONARY DISEASE, UNSPECIFIED (9) Peripheral neuropathy Code(s): G62.9 - POLYNEUROPATHY, UNSPECIFIED
--- NOTE | 2019-10-24 13:31 | PN ---
Teaching Attending Note Name of Resident: Kayden Morris ATTENDING PHYSICIAN STATEMENT I saw and evaluated the patient. I reviewed the resident's note and discussed the case with the resident. I agree with the resident's findings and plan as documented. SUBJECTIVE: Patient seen and examined at bedside, breathing and SOB improved, still wheezing. VS otherwise stable, no fevers. OBJECTIVE: GENERAL:AAox3, speaking in full sentences, NAD, sitting up in bed HEAD: NC/AT, neck supple EYES: PERRL, extraocular movements intact, ENT: Ears normal, nares patent, MMM, clear oral mucosa LUNGS: scattered wheezing but moving air b/l HEART: NSR, S1, S2 without murmur, rub or gallop. ABDOMEN: obese,Soft, nontender, nondistended, normoactive bowel sounds, EXTREMITIES: 2+ pulses, warm, well-perfused, no edema. NEUROLOGICAL: no focal deficit Vital Signs - 24 hr 10/23/19 10/23/19 10/23/19 14:29 18:00 21:00 Temperature 98.1 F 98.1 F Pulse Rate 102 H 100 H Respiratory 18 18 Rate Blood Pressure 156/102 H 180/110 H O2 Sat by Pulse 96 Oximetry (%) 10/24/19 10/24/19 10/24/19 00:00 06:00 09:00 Temperature 97.9 F 97.5 F L Pulse Rate 85 94 H Respiratory 18 18 Rate Blood Pressure 137/93 149/88 O2 Sat by Pulse 97 Oximetry (%) 10/24/19 09:06 Temperature 98 F Pulse Rate 83 Respiratory 18 Rate Blood Pressure 159/98 O2 Sat by Pulse Oximetry (%) Microbiology 10/16/19 18:35 Blood - Peripheral Venous Blood Culture - Final NO GROWTH AFTER 5 DAYS INCUBATION 10/16/19 18:31 Blood - Peripheral Venous Blood Culture - Final NO GROWTH AFTER 5 DAYS INCUBATION 10/18/19 10:50 Stool Cryptosporidium Antigen - Final 10/18/19 10:50 Stool Giardia Antigen (JUSTINA) - Final 10/16/19 21:15 Urine - Urine Clean Catch Urine Culture - Final Escherichia Coli Laboratory Results - last 24 hr 10/23/19 10/23/19 10/24/19 16:32 22:24 02:28 WBC RBC Hgb Hct MCV MCH MCHC RDW Plt Count MPV Absolute Neuts (auto) Neutrophils % Neutrophils % (Manual) Band Neutrophils % Lymphocytes % Lymphocytes % (Manual) Monocytes % Monocytes % (Manual) Eosinophils % Eosinophils % (Manual) Basophils % Basophils % (Manual) Myelocytes % (Man) Promyelocytes % (Man) Blast Cells % (Manual) Nucleated RBC % Metamyelocytes Hypochromia Platelet Estimate Polychromasia Poikilocytosis Anisocytosis Microcytosis Macrocytosis Sodium Potassium Chloride Carbon Dioxide Anion Gap BUN Creatinine Est GFR (CKD-EPI)AfAm Est GFR (CKD-EPI)NonAf POC Glucometer 332 423 400 Random Glucose Calcium 10/24/19 10/24/19 10/24/19 06:00 06:04 06:15 WBC 13.4 H RBC 3.66 Hgb 11.1 Hct 34.7 MCV 94.7 D MCH 30.4 MCHC 32.1 RDW 17.9 H Plt Count 285 MPV 8.4 Absolute Neuts (auto) 11.1 H Neutrophils % 83.0 H D Neutrophils % (Manual) 75.8 Band Neutrophils % 1.1 Lymphocytes % 11.6 D Lymphocytes % (Manual) 10.5 Monocytes % 5.0 Monocytes % (Manual) 4 Eosinophils % 0.0 D Eosinophils % (Manual) 0.0 Basophils % 0.4 Basophils % (Manual) 0.0 Myelocytes % (Man) 0 D Promyelocytes % (Man) 0 D Blast Cells % (Manual) 0 D Nucleated RBC % 2 H Metamyelocytes 8 H D Hypochromia 0 Platelet Estimate Normal Polychromasia 1+ Poikilocytosis 1+ Anisocytosis 2+ Microcytosis 1+ Macrocytosis 0 Sodium 139 Potassium 3.4 L Chloride 104 Carbon Dioxide 25 Anion Gap 10 BUN 23.7 H Creatinine 1.3 Est GFR (CKD-EPI)AfAm 50.56 Est GFR (CKD-EPI)NonAf 43.62 POC Glucometer 314 Random Glucose 356 H Calcium 8.4 L 10/24/19 10/24/19 11:59 13:12 WBC RBC Hgb Hct MCV MCH MCHC RDW Plt Count MPV Absolute Neuts (auto) Neutrophils % Neutrophils % (Manual) Band Neutrophils % Lymphocytes % Lymphocytes % (Manual) Monocytes % Monocytes % (Manual) Eosinophils % Eosinophils % (Manual) Basophils % Basophils % (Manual) Myelocytes % (Man) Promyelocytes % (Man) Blast Cells % (Manual) Nucleated RBC % Metamyelocytes Hypochromia Platelet Estimate Polychromasia Poikilocytosis Anisocytosis Microcytosis Macrocytosis Sodium Potassium Chloride Carbon Dioxide Anion Gap BUN Creatinine Est GFR (CKD-EPI)AfAm Est GFR (CKD-EPI)NonAf POC Glucometer 179 265 Random Glucose Calcium Current Medications Generic Name Dose Route Start Last Admin Trade Name Freq PRN Reason Stop Dose Admin Abacavir Sulfate 600 mg 10/17/19 10:00 10/24/19 09:11 Ziagen - PO 600 mg DAILY SHERI Administration Albuterol/Ipratropium 1 amp 10/22/19 12:46 Duoneb - NEB Q6H PRN SHORTNESS OF BREATH Carvedilol 6.25 mg 10/23/19 22:00 10/24/19 09:09 Coreg - PO 6.25 mg BID SHERI Administration Darunavir 800 mg 10/17/19 10:00 10/24/19 09:11 Prezista - PO 800 mg DAILY SHERI Administration Gabapentin 300 mg 10/17/19 10:00 10/24/19 09:09 Neurontin - PO 300 mg BID SHERI Administration Guaifenesin 10 ml 10/18/19 16:02 10/23/19 09:33 Robitussin - PO 10 ml Q6H PRN Administration COUGH Heparin Sodium (Porcine) 5,000 unit 10/17/19 06:00 10/24/19 13:19 Heparin - SQ Not Given TID SHERI Insulin Aspart 10 units 10/21/19 16:30 10/24/19 12:03 Novolog Vial SQ 10 units ACHS SHERI Administration Insulin Aspart 45 units 10/24/19 07:00 10/24/19 06:48 Novolog Mix 70/30 Vial SQ 45 units BIDAC SHERI Administration Insulin Aspart 1 vial 10/23/19 23:15 10/24/19 13:15 Novolog Vial Sliding Scale - SQ 10 units ACHS SHERI Administration Protocol Insulin Detemir 20 units 10/22/19 07:00 10/24/19 06:48 Levemir Vial SQ 20 units 0700,2200 SHERI Administration Lactobacillus Acidophilus 1 tab 10/17/19 10:00 10/24/19 09:09 Bacid - PO 1 tab DAILY SHERI Administration Lamivudine 300 mg 10/22/19 10:00 10/24/19 09:10 Epivir - PO 300 mg DAILY SHERI Administration Levalbuterol HCl 0.63 mg 10/20/19 22:54 10/24/19 08:34 Xopenex IH 0.63 mg RTID SHERI Administration Losartan Potassium 100 mg 10/23/19 09:27 10/24/19 09:09 Cozaar - PO 100 mg DAILY SHERI Administration Methylprednisolone Sodium Succinate 40 mg 10/20/19 15:00 10/24/19 08:19 Solu-Medrol - IVPUSH 40 mg Q6H-IV SHERI Administration Mirtazapine 15 mg 10/17/19 22:00 10/23/19 22:27 Remeron - PO 15 mg HS SHERI Administration Multivitamins 1 each 10/17/19 10:00 10/24/19 09:11 Total B With C - PO 1 each DAILY SHERI Administration Nystatin 500,000 units 10/21/19 18:00 10/24/19 13:19 Nystatin Oral Suspension - PO 500,000 units Q6HPO SHERI Administration Pantoprazole Sodium 40 mg 10/17/19 10:00 10/24/19 09:09 Protonix - PO 40 mg DAILY SHERI Administration Ritonavir 100 mg 10/17/19 10:00 10/24/19 09:10 Norvir - PO 100 mg DAILY SHERI Administration Trimethoprim/Sulfamethoxazole 1 each 10/17/19 10:00 10/24/19 09:08 Bactrim Ds - PO 1 each MoWeFr@1000 SHERI Administration Valacyclovir HCl 1,000 mg 10/19/19 10:00 10/24/19 09:09 Valtrex - PO 1,000 mg DAILY SHERI Administration Zolpidem Tartrate 5 mg 10/16/19 22:52 10/23/19 23:16 Ambien - PO 5 mg HS PRN Administration INSOMNIA ASSESSMENT AND PLAN: 64 F HIV on HAART, asthma, HTN, HLD, GERD, COPD not on O2, admitted for COPDE and found to have influenza +. Acute COPD/asthma exacerbation complicated by influenza B+ cont. droplet isolation cont. Tamiflu renal dose cont. Levalbuterol (less tachycardia and patient takes this med at home feels better when using it) cont. Solumedrol to 40mg Q6H finished course of abx Pulmonary consult: Dr Crouch New onset T2DM A1c 7.8% 70/30 insulin 35u BID supplement w/ ISS Endo consult appreciated: Dr Everett HIV continue home medications Bactrim DS MWF ID consult: Dr Ivey FELIZ resolved , likely pre renal avoid nephrotoxins Acute on chronic cough improved, Robitussin PRN HTN cont. BP meds GERD cont. PPI Abnormal TFTs euthyroid sick, v.s. nodular thyroid, repeat TFTs after feeling better as outpatient, thyroid US as outpatient Endo consult appreciated: Dr Everett DVT ppx: Heparin SC continue tele monitoring
[2019-10-24] MEDS ORDERED: POTASSIUM CHLORIDE TABS 20 MEQ TABLET.ER (FP) PO ONE (14:42)
[2019-10-24] MEDS: MIRTAZAPINE 15 MG TABLET (FP) PO SCH (21:18)
[2019-10-24] MEDS: ZOLPIDEM TARTRATE 5 MG TABLET PO PRN (21:25)
[2019-10-25] MEDS: NYSTATIN 500,000 UNITS/5 ML SUSPENSION PO SCH ×5 (00:52→23:05)
[2019-10-25] MEDS: methylPREDNISolone NA SUCC 40 MG/1 ML VIAL IVPUSH SCH ×3 (02:57→10:02)
[2019-10-25] MEDS: INSULIN (LEVEMIR) 100 UNITS/ML UNITS SQ SCH ×2 (07:01→21:32)
[2019-10-25] MEDS: HEPARIN NA (PORCINE) 5,000 UNITS/ML 1ML VIAL SQ SCH ×3 (07:01→21:33)
[2019-10-25] MEDS: INSULIN SLIDING SCALE (NOVOLOG) 1 VIAL SQ SCH ×4 (07:02→21:32)
[2019-10-25] MEDS: INSULIN (NOVOLOG) ASPART 100 UNITS/ML 10ML VIAL SQ SCH ×4 (07:03→21:32)
[2019-10-25] MEDS: INSULIN (NOVOLOG MIX 70/30) 100 UNITS/ML MDV SQ SCH ×2 (07:03→17:21)
[2019-10-25] MEDS ORDERED: INSULIN (NOVOLOG MIX 70/30) 100 UNITS/ML MDV SQ ONE (07:14)
[2019-10-25] MEDS ORDERED: INSULIN SLIDING SCALE (NOVOLOG) 1 VIAL SQ ONE (07:15)
[2019-10-25] MEDS: LEVALBUTEROL HCL 0.63 MG/3 ML VIAL.NEB. IH SCH ×3 (07:20→21:00)
--- NOTE | 2019-10-25 07:30 | PN ---
Physical Exam: SUBJECTIVE: Patient seen and examined no acute events over night denies any fever or chills, chest pain is better , add HCTZ 12.5 for BP control switch to prednisone 60 mg po BID folow up echo OBJECTIVE: Vital Signs Period Temp Pulse Resp BP Sys/Inman Pulse Ox Last 24 Hr 95.5 F-98.7 F 83-99 16-18 127-162/71-107 97-97 GENERAL:AAO3 , IN NAD on droplet isolation HEAD: NC/At EYES: PERRL, extraocular movements intact, ENT: Ears normal, nares patent, oropharynx clear without exudates, moist mucous membranes. NECK: supple. LUNGS: Breath sounds equal, clear to auscultation bilaterally, some wheezes at the bases , no crackles, no accessory muscle use. HEART: sinus tachy , S1, S2 without murmur, rub or gallop. ABDOMEN: obese,Soft, nontender, nondistended, normoactive bowel sounds, EXTREMITIES: 2+ pulses, warm, well-perfused, no edema. NEUROLOGICAL: no focal deficit Laboratory Results - last 24 hr 10/24/19 10/24/19 10/24/19 06:15 11:59 13:12 Neutrophils % (Manual) 75.8 Band Neutrophils % 1.1 Lymphocytes % (Manual) 10.5 Monocytes % (Manual) 4 Eosinophils % (Manual) 0.0 Basophils % (Manual) 0.0 Myelocytes % (Man) 0 D Promyelocytes % (Man) 0 D Blast Cells % (Manual) 0 D Metamyelocytes 8 H D Hypochromia 0 Platelet Estimate Normal Polychromasia 1+ Poikilocytosis 1+ Anisocytosis 2+ Microcytosis 1+ Macrocytosis 0 POC Glucometer 179 265 10/24/19 10/24/19 10/25/19 16:56 21:16 05:59 Neutrophils % (Manual) Band Neutrophils % Lymphocytes % (Manual) Monocytes % (Manual) Eosinophils % (Manual) Basophils % (Manual) Myelocytes % (Man) Promyelocytes % (Man) Blast Cells % (Manual) Metamyelocytes Hypochromia Platelet Estimate Polychromasia Poikilocytosis Anisocytosis Microcytosis Macrocytosis POC Glucometer 366 330 379 Active Medications Generic Name Dose Route Start Last Admin Trade Name Freq PRN Reason Stop Dose Admin Abacavir Sulfate 600 mg 10/17/19 10:00 10/24/19 09:11 Ziagen - PO 600 mg DAILY SHERI Administration Albuterol/Ipratropium 1 amp 10/22/19 12:46 Duoneb - NEB Q6H PRN SHORTNESS OF BREATH Carvedilol 6.25 mg 10/23/19 22:00 10/24/19 21:17 Coreg - PO 6.25 mg BID SHERI Administration Darunavir 800 mg 10/17/19 10:00 10/24/19 09:11 Prezista - PO 800 mg DAILY SHERI Administration Gabapentin 300 mg 10/17/19 10:00 10/24/19 21:17 Neurontin - PO 300 mg BID SHERI Administration Guaifenesin 10 ml 10/18/19 16:02 10/23/19 09:33 Robitussin - PO 10 ml Q6H PRN Administration COUGH Heparin Sodium (Porcine) 5,000 unit 10/17/19 06:00 10/25/19 07:01 Heparin - SQ Not Given TID SHERI Insulin Aspart 10 units 10/21/19 16:30 10/25/19 07:03 Novolog Vial SQ 10 units ACHS SHERI Administration Insulin Aspart 45 units 10/24/19 07:00 10/25/19 07:03 Novolog Mix 70/30 Vial SQ 45 units BIDAC SHERI Administration Insulin Aspart 1 vial 10/23/19 23:15 10/25/19 07:02 Novolog Vial Sliding Scale - SQ 15 units ACHS SHERI Administration Protocol Insulin Detemir 20 units 10/22/19 07:00 10/25/19 07:01 Levemir Vial SQ 20 units 0700,2200 SHERI Administration Lactobacillus Acidophilus 1 tab 10/17/19 10:00 10/24/19 09:09 Bacid - PO 1 tab DAILY SHERI Administration Lamivudine 300 mg 10/22/19 10:00 10/24/19 09:10 Epivir - PO 300 mg DAILY SHERI Administration Levalbuterol HCl 0.63 mg 10/20/19 22:54 10/24/19 20:33 Xopenex IH 0.63 mg RTID SHERI Administration Losartan Potassium 100 mg 10/23/19 09:27 10/24/19 09:09 Cozaar - PO 100 mg DAILY SHERI Administration Methylprednisolone Sodium Succinate 40 mg 10/20/19 15:00 10/25/19 02:57 Solu-Medrol - IVPUSH 40 mg Q6H-IV SHERI Administration Mirtazapine 15 mg 10/17/19 22:00 10/24/19 21:18 Remeron - PO 15 mg HS SHERI Administration Multivitamins 1 each 10/17/19 10:00 10/24/19 09:11 Total B With C - PO 1 each DAILY SHERI Administration Nystatin 500,000 units 10/21/19 18:00 10/25/19 07:01 Nystatin Oral Suspension - PO 500,000 units Q6HPO SHERI Administration Pantoprazole Sodium 40 mg 10/17/19 10:00 10/24/19 09:09 Protonix - PO 40 mg DAILY SHERI Administration Ritonavir 100 mg 10/17/19 10:00 10/24/19 09:10 Norvir - PO 100 mg DAILY SHERI Administration Trimethoprim/Sulfamethoxazole 1 each 10/17/19 10:00 10/24/19 09:08 Bactrim Ds - PO 1 each MoWeFr@1000 SHERI Administration Valacyclovir HCl 1,000 mg 10/19/19 10:00 10/24/19 09:09 Valtrex - PO 1,000 mg DAILY SHERI Administration Zolpidem Tartrate 5 mg 10/16/19 22:52 10/24/19 21:25 Ambien - PO 5 mg HS PRN Administration INSOMNIA ASSESSMENT/PLAN: Uzma Monroe is a 64 year old female with a past medical history of HIV ( CD4 104, viral load 70), HTN, HLD, COPD, GERD admitted for COPD exacerbation secondary to influenza B. # sepsis 2/2 influneza B + , improved * cont ghada flue * cont abx prophylaxis # Acute COPD Exacerbation 2/2 Influenza B+ * droplet isolation * Tamiflue renal dose * duoneb and labuterol * pulmonary consulted increase steroids Sulomedrol to 40 Q 6 hr , switch to PO prednisone 60 BID * Spiriva daily * azithromycin 500mg once and continue azithromycin 250mg daily, completed * PPI as on steroids # type 2 DM , newy diagnosed * exacerbated by steroids use started on ISS and levimer 20 BID and novoloh 70/ 30 45 units BID * A1c 7.8 * endo consulted Dr darling #HIV * continue home medications * Bactrim DS MWF * ID consulted # oral thrush due to steroids vs HIV start Nystatin #FELIZ, resolved , likely pre renal * CRE 1.5 (baseline 0.9-1.2) # cough start Robutossin # Hoarsness in her voice due to flue , cont treatment #HTN * increase losartan to 100 mg daily add BB carvedilol 6.25 BID increased to 12.5 add hctz 12.5 by cardiology follow up echo and BNP #GERD * cont Protonix # weight gain , pt reports she gain 100 pound during last year she needs to follow up with endocrinology as out pt.R.O curtis syndrome , morning cortisole #DVT PPx * heparin 5000 units subq tid # Sinys tachy cardia due to flue vs albuterol SE started on BB # euthyrid sick syndrome TSH low will repeat as out pt after acute phase * Ft3 , Ft4 noted repeat as out pt * follow up wit us and endocrinology as out pt # UTI : no signs UTI negative UA, 30k colony count - no need to treat per ID #FEN * NS 2.5L bolus due to septic vitals, * continue to monitor electrolytes and replete as necessary, hypokalemia noted and repleted * Sodium controlled diet # Tele monitor Visit type - Emergency Visit Emergency Visit: Yes ED Registration Date: 10/16/19 Care time: The patient presented to the Emergency Department on the above date and was hospitalized for further evaluation of their emergent condition. - New Patient This patient is new to me today: No - Critical Care Critical Care patient: No - Discharge Referral Referred to [facility] No ATTENDING PHYSICIAN STATEMENT I saw and evaluated the patient. I reviewed the resident's note and discussed the case with the resident. I agree with the resident's findings and plan as documented. SUBJECTIVE: OBJECTIVE: ASSESSMENT AND PLAN:
[2019-10-25 07:42] LABS: BASO % 0.3 % (0-2.0); HEMATOCRIT 34.1 % (32.4-45.2); HEMOGLOBIN 11.1 GM/dL (10.7-15.3); LYMPH % 8.3 % (8-40); MCH 30.5 pg (25.7-33.7); MCHC 32.7 g/dl (32.0-36.0); MEAN CELL VOLUME 93.3 fl (80-96); MEAN PLT VOLUME 8.1 fl (7.5-11.1); MONO % 4.5 % (3.8-10.2); NEUT % 86.9 % (42.8-82.8); PLATELET COUNT 328 K/MM3 (134-434); RBC 3.66 M/mm3 (3.60-5.2); RDW 18.9 % (11.6-15.6); WHITE BLOOD COUNT 15.6 K/mm3 (4.0-10.0)
--- NOTE | 2019-10-25 08:20 | PN ---
Teaching Attending Note Name of Resident: Kayden Morris ATTENDING PHYSICIAN STATEMENT I saw and evaluated the patient. I reviewed the resident's note and discussed the case with the resident. I agree with the resident's findings and plan as documented. SUBJECTIVE: Patient is still complaint of cough and shortness of breath OBJECTIVE: Vital Signs Temperature 97.9 F 10/25/19 06:00 Pulse Rate 97 H 10/25/19 06:00 Respiratory Rate 16 10/25/19 06:00 Blood Pressure 161/100 10/25/19 06:00 O2 Sat by Pulse Oximetry (%) 97 10/24/19 21:00 General: Middle-aged female, comfortable, not in distress HEENT: mucous membranes moist, no anemia, no jaundice, PERRLA, no nystagmus Neck: No JVD, supple, no bruit, thyroid palpably normal, normal carotid pulsations. Chest: Non-tender, bilateral basal rales and wheezes. CVS: S1-S2 regular no murmur/gallop/rub Abdomen: Non-distended, soft, bowel sounds present. 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: AO X3 , no gross motor sensory deficit CBC, BMP 10/25/19 06:05 Active Medications Abacavir Sulfate (Ziagen -) 600 mg PO DAILY [facility] Last Admin: 10/24/19 09:11 Dose: 600 mg Albuterol/Ipratropium (Duoneb -) 1 amp NEB Q6H PRN PRN Reason: SHORTNESS OF BREATH Carvedilol (Coreg -) 6.25 mg PO BID [facility] Last Admin: 10/24/19 21:17 Dose: 6.25 mg Darunavir (Prezista -) 800 mg PO DAILY [facility] Last Admin: 10/24/19 09:11 Dose: 800 mg Gabapentin (Neurontin -) 300 mg PO BID [facility] Last Admin: 10/24/19 21:17 Dose: 300 mg Guaifenesin (Robitussin -) 10 ml PO Q6H PRN PRN Reason: COUGH Last Admin: 10/23/19 09:33 Dose: 10 ml Heparin Sodium (Porcine) (Heparin -) 5,000 unit SQ TID [facility] Last Admin: 10/25/19 07:01 Dose: Not Given Insulin Aspart (Novolog Vial) 10 units SQ ACHS [facility] Last Admin: 10/25/19 07:03 Dose: 10 units Insulin Aspart (Novolog Mix 70/30 Vial) 45 units SQ BIDAC [facility] Last Admin: 10/25/19 07:03 Dose: 45 units Insulin Aspart (Novolog Vial Sliding Scale -) 1 vial SQ ACHS [facility]; Protocol Last Admin: 10/25/19 07:02 Dose: 15 units Insulin Detemir (Levemir Vial) 20 units SQ 0700,2200 [facility] Last Admin: 10/25/19 07:01 Dose: 20 units Lactobacillus Acidophilus (Bacid -) 1 tab PO DAILY [facility] Last Admin: 10/24/19 09:09 Dose: 1 tab Lamivudine (Epivir -) 300 mg PO DAILY [facility] Last Admin: 10/24/19 09:10 Dose: 300 mg Levalbuterol HCl (Xopenex) 0.63 mg IH RTID [facility] Last Admin: 10/24/19 20:33 Dose: 0.63 mg Losartan Potassium (Cozaar -) 100 mg PO DAILY [facility] Last Admin: 10/24/19 09:09 Dose: 100 mg Methylprednisolone Sodium Succinate (Solu-Medrol -) 40 mg IVPUSH Q6H-IV [facility] Last Admin: 10/25/19 02:57 Dose: 40 mg Mirtazapine (Remeron -) 15 mg PO HS [facility] Last Admin: 10/24/19 21:18 Dose: 15 mg Multivitamins (Total B With C -) 1 each PO DAILY [facility] Last Admin: 10/24/19 09:11 Dose: 1 each Nystatin (Nystatin Oral Suspension -) 500,000 units PO Q6HPO [facility] Last Admin: 10/25/19 07:01 Dose: 500,000 units Pantoprazole Sodium (Protonix -) 40 mg PO DAILY [facility] Last Admin: 10/24/19 09:09 Dose: 40 mg Ritonavir (Norvir -) 100 mg PO DAILY [facility] Last Admin: 10/24/19 09:10 Dose: 100 mg Trimethoprim/Sulfamethoxazole (Bactrim Ds -) 1 each PO MoWeFr@1000 [facility] Last Admin: 10/24/19 09:08 Dose: 1 each Valacyclovir HCl (Valtrex -) 1,000 mg PO DAILY [facility] Last Admin: 10/24/19 09:09 Dose: 1,000 mg Zolpidem Tartrate (Ambien -) 5 mg PO HS PRN PRN Reason: INSOMNIA Last Admin: 10/24/19 21:25 Dose: 5 mg ASSESSMENT AND PLAN: 64 years old female history of HIV on Rawls, CD4 count around 3, on suppressive dose of Valtrex, type 2 diabetes mellitus recurrent Influenza a and B infection, asthma/COPD presented with worsening shortness of breath with hypoxia and influenza B infection, initially on IV steroids, uncontrolled diabetes mellitus due to high-dose corticosteroids 2 days switch to p.o. prednisone. Plan: Asthma/COPD exacerbation due to respiratory tract infection. Problem List - Problems (1) Influenza B Assessment/Plan: Completed Tamiflu Problems reviewed: Yes Code(s): J10.1 - FLU DUE TO OTH IDENT INFLUENZA VIRUS W OTH RESP MANIFEST (2) Sepsis Assessment/Plan: Due to influenza infection improved Problems reviewed: Yes Code(s): A41.9 - SEPSIS, UNSPECIFIED ORGANISM (3) AIDS Assessment/Plan: Continue all HIV medication Problems reviewed: Yes Code(s): B20 - HUMAN IMMUNODEFICIENCY VIRUS [HIV] DISEASE (4) Type 2 diabetes mellitus with other diabetic arthropathy Assessment/Plan: Hypoglycemia due to poor IV steroid dose continue Levemir and correction dose insulin, diabetic diet last hemoglobin A1c was 7.6 Problems reviewed: Yes Code(s): E11.618 - TYPE 2 DIABETES MELLITUS WITH OTHER DIABETIC ARTHROPATHY (5) Hypertension Problems reviewed: Yes Code(s): I10 - ESSENTIAL (PRIMARY) HYPERTENSION (6) Depression Assessment/Plan: Continue all home meds Problems reviewed: Yes Code(s): F32.9 - MAJOR DEPRESSIVE DISORDER, SINGLE EPISODE, UNSPECIFIED (7) Acute exacerbation of COPD with asthma Assessment/Plan: We will switch to p.o. prednisone 40 mg twice daily, continue levalbuterol, add on Spiriva, O2 inhalation. Problems reviewed: Yes Code(s): J44.1 - CHRONIC OBSTRUCTIVE PULMONARY DISEASE W (ACUTE) EXACERBATION; J45.901 - UNSPECIFIED ASTHMA WITH (ACUTE) EXACERBATION
[2019-10-25 08:26] LABS: BILIRUBIN,TOTAL 0.3 mg/dL (0.2-1); BLOOD UREA NITROGEN 29.5 mg/dL (7-18); CALCIUM 8.6 mg/dL (8.5-10.1); CREATININE 1.4 mg/dL (0.55-1.3); POTASSIUM 3.8 mmol/L (3.5-5.1); TOT PROT 6.9 g/dl (6.4-8.2)
[2019-10-25] MEDS ORDERED: CARVEDILOL 6.25 MG TABLET (FP) PO SCH (09:06)
[2019-10-25] MEDS ORDERED: PT OWN MED DRAWER 7, Y5N ONE (09:58)
[2019-10-25] MEDS: GABAPENTIN 300 MG CAPSULE PO SCH ×2 (10:09→21:31)
[2019-10-25] MEDS: LACTOBACILLUS ACIDOPHILUS 1 TABLET PO SCH (10:09)
[2019-10-25] MEDS: LOSARTAN POTASSIUM 50 MG TABLET (FP) PO SCH (10:09)
[2019-10-25] MEDS: PANTOPRAZOLE 40 MG TABLET PO SCH (10:09)
[2019-10-25] MEDS: valACYclovir HCL 500 MG TABLET (FP) PO SCH (10:09)
[2019-10-25] MEDS: ABACAVIR SULFATE 300 MG TABLET PO SCH (10:12)
[2019-10-25] MEDS: VITAMIN B COMPLEX W/C COMBO TABLET (FP) PO SCH (10:13)
[2019-10-25] MEDS: lamiVUDine 150 MG TABLET PO SCH (10:13)
[2019-10-25] MEDS: RITONAVIR 100 MG TABLET PO SCH (10:14)
[2019-10-25] MEDS: DARUNAVIR ETHANOLATE 800 MG TAB PO SCH (10:14)
[2019-10-25 10:20] LABS: ANISOCYTOSIS 1+; MACROCYTOSIS 0; PLATELET ESTIMATE NORMAL
--- NOTE | 2019-10-25 12:01 | PN ---
Progress Note, Physician History of Present Illness: pulmonary alert,still congested,+ cough - Current Medication List Current Medications: Active Medications Abacavir Sulfate (Ziagen -) 600 mg PO DAILY [facility] Last Admin: 10/25/19 10:12 Dose: 600 mg Albuterol/Ipratropium (Duoneb -) 1 amp NEB Q6H PRN PRN Reason: SHORTNESS OF BREATH Carvedilol (Coreg -) 12 mg PO BID [facility] Darunavir (Prezista -) 800 mg PO DAILY [facility] Last Admin: 10/25/19 10:14 Dose: 800 mg Gabapentin (Neurontin -) 300 mg PO BID [facility] Last Admin: 10/25/19 10:09 Dose: 300 mg Guaifenesin (Robitussin -) 10 ml PO Q6H PRN PRN Reason: COUGH Last Admin: 10/23/19 09:33 Dose: 10 ml Heparin Sodium (Porcine) (Heparin -) 5,000 unit SQ TID [facility] Last Admin: 10/25/19 07:01 Dose: Not Given Insulin Aspart (Novolog Vial) [address] [facility] Last Admin: 10/25/19 11:56 Dose: 10 units Insulin Aspart (Novolog Mix 70/30 Vial) 45 units SQ BIDAC [facility] Last Admin: 10/25/19 07:03 Dose: 45 units Insulin Aspart (Novolog Vial Sliding Scale -) [address] [facility]; Protocol Last Admin: 10/25/19 11:56 Dose: 16 units Insulin Detemir (Levemir Vial) 20 units SQ 0700,2200 [facility] Last Admin: 10/25/19 07:01 Dose: 20 units Lactobacillus Acidophilus (Bacid -) 1 tab PO DAILY [facility] Last Admin: 10/25/19 10:09 Dose: 1 tab Lamivudine (Epivir -) 300 mg PO DAILY [facility] Last Admin: 10/25/19 10:13 Dose: 300 mg Levalbuterol HCl (Xopenex) 0.63 mg IH RTID [facility] Last Admin: 10/24/19 20:33 Dose: 0.63 mg Losartan Potassium (Cozaar -) 100 mg PO DAILY [facility] Last Admin: 10/25/19 10:09 Dose: 100 mg Methylprednisolone Sodium Succinate (Solu-Medrol -) 40 mg IVPUSH Q6H-IV [facility] Last Admin: 10/25/19 10:02 Dose: 40 mg Mirtazapine (Remeron -) 15 mg PO HS [facility] Last Admin: 10/24/19 21:18 Dose: 15 mg Multivitamins (Total B With C -) 1 each PO DAILY [facility] Last Admin: 10/25/19 10:13 Dose: 1 each Nystatin (Nystatin Oral Suspension -) 500,000 units PO Q6HPO [facility] Last Admin: 10/25/19 11:59 Dose: 500,000 units Pantoprazole Sodium (Protonix -) 40 mg PO DAILY [facility] Last Admin: 10/25/19 10:09 Dose: 40 mg Ritonavir (Norvir -) 100 mg PO DAILY [facility] Last Admin: 10/25/19 10:14 Dose: 100 mg Trimethoprim/Sulfamethoxazole (Bactrim Ds -) 1 each PO MoWeFr@1000 [facility] Last Admin: 10/24/19 09:08 Dose: 1 each Valacyclovir HCl (Valtrex -) 1,000 mg PO DAILY [facility] Last Admin: 10/25/19 10:09 Dose: 1,000 mg Zolpidem Tartrate (Ambien -) 5 mg PO HS PRN PRN Reason: INSOMNIA Last Admin: 10/24/19 21:25 Dose: 5 mg - Objective Vital Signs: Vital Signs Temperature 98.8 F 10/25/19 09:23 Pulse Rate 101 H 10/25/19 09:23 Respiratory Rate 18 10/25/19 09:23 Blood Pressure 154/95 10/25/19 09:23 O2 Sat by Pulse Oximetry (%) 97 10/24/19 21:00 Constitutional: Yes: Well Nourished, Calm Eyes: Yes: WNL HENT: Yes: WNL Neck: Yes: WNL Cardiovascular: Yes: Regular Rate and Rhythm, S1, S2 Respiratory: Yes: Rhonchi, Wheezes (bilateral wheezes and rhonchi) Gastrointestinal: Yes: Normal Bowel Sounds, Soft Extremities: Yes: WNL Edema: No Labs: CBC, BMP 10/25/19 06:05 10/25/19 06:05 INR, PTT INR 1.02 (0.83-1.09) 10/16/19 18:31 Assessment/Plan Problem List - Problems (1) Influenza B Code(s): J10.1 - FLU DUE TO OTH IDENT INFLUENZA VIRUS W OTH RESP MANIFEST (2) AIDS Code(s): B20 - HUMAN IMMUNODEFICIENCY VIRUS [HIV] DISEASE (3) FELIZ (acute kidney injury) Code(s): N17.9 - ACUTE KIDNEY FAILURE, UNSPECIFIED (4) COPD exacerbation Code(s): J44.1 - CHRONIC OBSTRUCTIVE PULMONARY DISEASE W (ACUTE) EXACERBATION (5) Cough Code(s): R05 - COUGH (6) Diarrhea Code(s): R19.7 - DIARRHEA, UNSPECIFIED Qualifiers: Diarrhea type: unspecified type Qualified Code(s): R19.7 - Diarrhea, unspecified (7) Hypertension Code(s): I10 - ESSENTIAL (PRIMARY) HYPERTENSION (8) COPD (chronic obstructive pulmonary disease) Code(s): J44.9 - CHRONIC OBSTRUCTIVE PULMONARY DISEASE, UNSPECIFIED (9) Peripheral neuropathy Code(s): G62.9 - POLYNEUROPATHY, UNSPECIFIED Assessment/Plan Prednisone 60mg bid Supplemental O2 as needed Tamiflu BD TX standing and PRN VTE prophylaxis DR BELLA
[2019-10-25] MEDS ORDERED: predniSONE 20 MG TABLET (UD) PO SCH (13:00)
[2019-10-25] MEDS: CARVEDILOL 12.5 MG TABLET (FP) PO SCH ×2 (13:32→21:31)
[2019-10-25] MEDS: TIOTROPIUM BROMIDE 2.5 MCG (SPIRIVA) RESPIMAT INHALER IH SCH (13:32)
[2019-10-25] MEDS: predniSONE 20 MG TABLET (UD) PO SCH ×2 (13:46→21:32)
--- NOTE | 2019-10-25 15:07 | CON.CARD ---
Consult Consult Specialty:: Cardiology Referred by:: Dr. Morris Reason for Consultation:: HTN management. - History of Present Illness Chief Complaint: Elevated BP History of Present Illness: 64F with HIV, Influenza B, Anorexia, COPD, HTN admitted with Influenza B. We were asked to see her today for assistance with BP control. ROS: Patient states she was recently diagnosed with HTN and while admitted has had elevated BP requiring medication titration. She continues to cough. Denies CP, palps, syncope. + Mild ankle edema. Losartan has been titrated by primary team and Coreg has been increased today. 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 No: Alzheimer's, CVA, Dementia, Migraine, Multiple Sclerosis, Parkinson's, Seizure, Syncope, TIA, Vertigo, Other Cardio/Vascular: Yes: HTN Pulmonary: Yes: Bronchitis, COPD, O2 Dependent, Pneumonia. No: Asthma, Cancer, Previously Intubated, Pulmonary Embolus, Pulmonary Fibrosis, Sleep Apnea Gastrointestinal: Yes: Other (Meredith Esophagitis from EGD 06/19/14). No: Ascites, Cancer, Constipation, Crohn's Disease, Diverticulitis, Diverticulosis, Esophageal Varices, Gastritis, GERD, GI Bleed, Hemorrhoids, Hiatal Hernia, Inflamatory Bowel Disease, Irritable Bowel Disease, Pancreatitis, Peptic Ulcer Disease, Ulcerative Colitis ...LMP: 01/04/15 Infectious Disease: Yes: AIDS, HIV, STD's Psych: Yes: Other (anorexia) Additional Medical History: Neuropathy of the feet. anorexia. breast cyst removed. ovarian cyst removed. c/s for twins - Past Surgical History Past Surgical History: Yes: Breast Biopsy, , Tonsillectomy - Alcohol/Substance Use Hx Alcohol Use: Yes (rare - social) History of Substance Use: reports: None - Smoking History Smoking history: Former smoker Have you smoked in the past 12 months: No Aproximately how many cigarettes per day: 2 If you are a former smoker, when did you quit?: 2 months ago - Social History Usual Living Arrangement: With Child ADL: Independent Occupation: on disability History of Recent Travel: Yes ([place] 07/13 to 07/18) Home Medications - Allergies Allergies/Adverse Reactions: Allergies Allergy/AdvReac Type Severity Reaction Status Date / Time Penicillins Allergy Severe Swelling Verified 10/16/19 17:22 [place]ISE AdvReac Uncoded 10/16/19 17:22 - Home Medications Home Medications: Ambulatory Orders Lactobacillus Acidophilus [Bacid -] 1 tab PO DAILY 28 Days #28 tab 10/04/18 Albuterol Sulfate Inhaler - [Ventolin HFA Inhaler -] 1 - 2 inh PO Q4H PRN #1 inhaler 04/02/19 Albuterol 0.083% Nebulizer Olivia [Ventolin 0.083% Nebulizer Soln -] 1 neb NEB Q6H PRN #120 vial 08/05/19 Budesonide/Formeterol Fumarate [SYMBICORT 80/4.5mcg -] 2 inh PO BID #1 cannister 08/09/19 Levalbuterol HCl [Xopenex] 0.63 mg IH QID #4 box 08/09/19 Levalbuterol Tartrate [Levalbuterol Tartrate Hfa] 15 gm IH QID #1 inhaler Tiotropium Rena Lara [Spiriva Respimat] 4 gm IH DAILY #1 mist.inhal 08/18/19 Valacyclovir HCl [Valtrex -] 1,000 mg PO BID #28 tablet 08/23/19 Abacavir Sulfate/Lamivudine [Abacavir-Lamivudine 600-300 mg] 1 each PO DAILY # 30 tablet 09/06/19 Darunavir Ethanolate [Prezista -] 800 mg PO DAILY #30 tablet 09/06/19 Ritonavir 100 mg PO DAILY #30 tablet 09/06/19 Ergocalciferol (Vitamin D2) [Vitamin D2] 50,000 unit PO WEEKLY #4 capsule Mirtazapine 15 mg PO HS #30 tablet 09/29/19 Vitamin B Complex [B Complex] 1 each PO DAILY #30 tablet 09/29/19 Zolpidem Tartrate [Ambien] 5 mg PO HS PRN #15 tablet MDD 1 09/29/19 Diclofenac Sodium [Voltaren] 100 gm TP BID #1 gel..gram. 10/06/19 Gabapentin 300 mg PO BID #60 capsule 10/06/19 Losartan Potassium [Cozaar -] 25 mg PO DAILY #30 tablet 10/06/19 Methocarbamol [Robaxin -] 500 mg PO BID PRN #15 tablet 10/13/19 Oxycodone HCl/Acetaminophen [Endocet 5-325 Tablet] 1 each PO TID PRN #20 tablet MDD 3 10/13/19 Family Medical History Family History: Unremarkable (non-contributory to this presentation. ) Review of Systems - Review of Systems Constitutional: reports: No Symptoms Cardiovascular: reports: Edema Respiratory: reports: Cough, SOB Gastrointestinal: reports: No Symptoms Genitourinary: reports: No Symptoms Breasts: reports: No Symptoms Reported Musculoskeletal: reports: No Symptoms Integumentary: reports: No Symptoms Neurological: reports: No Symptoms Endocrine: reports: No Symptoms Hematology/Lymphatic: reports: No Symptoms Psychiatric: reports: No Symptoms - Risk Factors Known Risk Factors: Yes: Diabetes Mellitus (Elevated glucose- likely exacerbated by steroids.), Hypertension Vital Signs: Vital Signs Temperature 98.2 F 10/25/19 14:00 Pulse Rate 108 H 10/25/19 14:00 Respiratory Rate 18 10/25/19 14:00 Blood Pressure 182/116 H 10/25/19 14:00 O2 Sat by Pulse Oximetry (%) 97 10/24/19 21:00 Constitutional: Yes: No Distress, Calm Eyes: Yes: Conjunctiva Clear Respiratory: Yes: Rhonchi, Wheezes Gastrointestinal: Yes: Soft (generally soft, nontender. + bowel sounds.) Cardiovascular: Yes: Regular Rate and Rhythm JVD: No Carotid Bruit: No PMI: Non-Displaced Heart Sounds: Yes: S1, S2 (RRR, no murmurs) Edema: Yes Edema: LLE: 1+ (ankle), RLE: 1+ (ankle) Neurological: Yes: Alert, Oriented - Other Data Labs, Other Data: CBC, BMP 10/25/19 06:05 10/25/19 06:05 INR, PTT INR 1.02 (0.83-1.09) 10/16/19 18:31 Sinus tach 127bpm, cannot r/o old septal [facility] Echo: Report Reviewed (July 2019: LVH, normla LVEF, no sig valve dz) Ejection Fraction %: LVEF > or = 40 % Imaging - Results X-ray: Image Reviewed Assessment/Plan IMP: Chronic HTN Chronic hypertensive heart disease/LVH/ diastolic dysfx Influenza B triggering AECOPD COPD HIV REC: 1. HTN: chronic, now probably exacerbated in setting of steroids -Coreg increased today.Cont Losartan and follow renal function daily. -Will d/w Pulmonary re use of mixed alpha/beta agent (Coreg) -Goal BP < 140/90, if remains above goal can add HCTZ 12.5 mg daily 2. AECOPD triggered by Influenza B: -Rx as per primary team and pulmonary -Steroid taper. -Levalbuterol as needed to minimize tachycardia 3. HIV: -As per primary team 4. Edema: secondary to chronic diastolic dysfx/ hypertensive heart disease -Mild fluid retention possibly due to steroids. -Agree with BNP -Steroid taper -May need addition of diuretic (as noted above) if BP trend remains above goal over next 12-24 hours.
[2019-10-25] MEDS: MIRTAZAPINE 15 MG TABLET (FP) PO SCH (21:31)
[2019-10-25] MEDS: ZOLPIDEM TARTRATE 5 MG TABLET PO PRN (21:32)
[2019-10-26] MEDS: HEPARIN NA (PORCINE) 5,000 UNITS/ML 1ML VIAL SQ SCH ×3 (06:48→21:50)
[2019-10-26] MEDS: INSULIN (NOVOLOG) ASPART 100 UNITS/ML 10ML VIAL SQ SCH ×4 (07:13→22:03)
[2019-10-26] MEDS: INSULIN (LEVEMIR) 100 UNITS/ML UNITS SQ SCH (07:13)
[2019-10-26] MEDS: INSULIN SLIDING SCALE (NOVOLOG) 1 VIAL SQ SCH ×6 (07:13→22:03)
[2019-10-26] MEDS: NYSTATIN 500,000 UNITS/5 ML SUSPENSION PO SCH ×4 (07:14→23:35)
[2019-10-26] MEDS: INSULIN (NOVOLOG MIX 70/30) 100 UNITS/ML MDV SQ SCH ×2 (07:14→16:56)
--- NOTE | 2019-10-26 07:22 | PN ---
Physical Exam: SUBJECTIVE: Patient seen and examined no acute events over night denies any fever or chills, chest pain is better , increase HCTZ to 25 daily, dc BB and cont losartan 100 daily switch to prednisone 40 mg po BID walking in the whol way with no dyspnea OBJECTIVE: Vital Signs Period Temp Pulse Resp BP Sys/Inman Pulse Ox Last 24 Hr 97.9 F-98.8 F 92-108 18-20 149-186/95-116 94-95 GENERAL:AAO3 , IN NAD on droplet isolation HEAD: NC/At EYES: PERRL, extraocular movements intact, ENT: Ears normal, nares patent, oropharynx clear without exudates, moist mucous membranes. NECK: supple. LUNGS: Breath sounds equal, clear to auscultation bilaterally, some wheezes at the bases , no crackles, no accessory muscle use. HEART: sinus tachy , S1, S2 without murmur, rub or gallop. ABDOMEN: obese,Soft, nontender, nondistended, normoactive bowel sounds, EXTREMITIES: 2+ pulses, warm, well-perfused, no edema. NEUROLOGICAL: no focal deficit Laboratory Results - last 24 hr 10/25/19 10/25/19 10/25/19 06:05 06:05 11:54 WBC 15.6 H RBC 3.66 Hgb 11.1 Hct 34.1 MCV 93.3 MCH 30.5 MCHC 32.7 RDW 18.9 H Plt Count 328 MPV 8.1 Absolute Neuts (auto) 13.5 H Neutrophils % 86.9 H Neutrophils % (Manual) 78.0 Band Neutrophils % 7.0 Lymphocytes % 8.3 D Lymphocytes % (Manual) 2.0 L D Monocytes % 4.5 Monocytes % (Manual) 2 L Eosinophils % 0.0 Eosinophils % (Manual) 0.0 Basophils % 0.3 Basophils % (Manual) 0.0 Myelocytes % (Man) 5 H D Promyelocytes % (Man) 0 Blast Cells % (Manual) 0 Nucleated RBC % 3 H Metamyelocytes 4 H D Hypochromia 0 Platelet Estimate Normal Platelet Comment Present Polychromasia 1+ Poikilocytosis 0 Anisocytosis 1+ Microcytosis 1+ Macrocytosis 0 Sodium 138 Potassium 3.8 Chloride 103 Carbon Dioxide 28 Anion Gap 7 L BUN 29.5 H Creatinine 1.4 H Est GFR (CKD-EPI)AfAm 46.23 Est GFR (CKD-EPI)NonAf 39.89 POC Glucometer 425 Random Glucose 446 H* Calcium 8.6 Total Bilirubin 0.3 AST 45 H ALT 110 H Alkaline Phosphatase 146 H Total Protein 6.9 Albumin 3.0 L 10/25/19 10/25/19 10/26/19 17:18 21:31 07:12 WBC RBC Hgb Hct MCV MCH MCHC RDW Plt Count MPV Absolute Neuts (auto) Neutrophils % Neutrophils % (Manual) Band Neutrophils % Lymphocytes % Lymphocytes % (Manual) Monocytes % Monocytes % (Manual) Eosinophils % Eosinophils % (Manual) Basophils % Basophils % (Manual) Myelocytes % (Man) Promyelocytes % (Man) Blast Cells % (Manual) Nucleated RBC % Metamyelocytes Hypochromia Platelet Estimate Platelet Comment Polychromasia Poikilocytosis Anisocytosis Microcytosis Macrocytosis Sodium Potassium Chloride Carbon Dioxide Anion Gap BUN Creatinine Est GFR (CKD-EPI)AfAm Est GFR (CKD-EPI)NonAf POC Glucometer 224 385 203 Random Glucose Calcium Total Bilirubin AST ALT Alkaline Phosphatase Total Protein Albumin Active Medications Generic Name Dose Route Start Last Admin Trade Name Freq PRN Reason Stop Dose Admin Abacavir Sulfate 600 mg 10/17/19 10:00 10/25/19 10:12 Ziagen - PO 600 mg DAILY SHERI Administration Albuterol/Ipratropium 1 amp 10/22/19 12:46 Duoneb - NEB Q6H PRN SHORTNESS OF BREATH Carvedilol 12.5 mg 10/25/19 13:00 10/25/19 21:31 Coreg - PO 12.5 mg BID SHERI Administration Darunavir 800 mg 10/17/19 10:00 10/25/19 10:14 Prezista - PO 800 mg DAILY SHERI Administration Gabapentin 300 mg 10/17/19 10:00 10/25/19 21:31 Neurontin - PO 300 mg BID SHERI Administration Guaifenesin 10 ml 10/18/19 16:02 10/23/19 09:33 Robitussin - PO 10 ml Q6H PRN Administration COUGH Heparin Sodium (Porcine) 5,000 unit 10/17/19 06:00 10/26/19 06:48 Heparin - SQ Not Given TID SHERI Insulin Aspart 10 units 10/21/19 16:30 10/26/19 07:13 Novolog Vial SQ 10 units ACHS SHERI Administration Insulin Aspart 45 units 10/24/19 07:00 10/26/19 07:14 Novolog Mix 70/30 Vial SQ 45 units BIDAC SHERI Administration Insulin Aspart 1 vial 10/23/19 23:15 10/26/19 07:13 Novolog Vial Sliding Scale - SQ 9 units ACHS SHERI Administration Protocol Insulin Detemir 20 units 10/22/19 07:00 10/26/19 07:13 Levemir Vial SQ 20 units 0700,2200 SHERI Administration Lactobacillus Acidophilus 1 tab 10/17/19 10:00 10/25/19 10:09 Bacid - PO 1 tab DAILY SHERI Administration Lamivudine 300 mg 10/22/19 10:00 10/25/19 10:13 Epivir - PO 300 mg DAILY SHERI Administration Levalbuterol HCl 0.63 mg 10/20/19 22:54 10/25/19 21:00 Xopenex IH 0.63 mg RTID SHERI Administration Losartan Potassium 100 mg 10/23/19 09:27 10/25/19 10:09 Cozaar - PO 100 mg DAILY SHERI Administration Mirtazapine 15 mg 10/17/19 22:00 10/25/19 21:31 Remeron - PO 15 mg HS SHERI Administration Multivitamins 1 each 10/17/19 10:00 10/25/19 10:13 Total B With C - PO 1 each DAILY SHERI Administration Nystatin 500,000 units 10/21/19 18:00 10/26/19 07:14 Nystatin Oral Suspension - PO 500,000 units Q6HPO SHERI Administration Pantoprazole Sodium 40 mg 10/17/19 10:00 10/25/19 10:09 Protonix - PO 40 mg DAILY SHERI Administration Prednisone 40 mg 10/25/19 13:45 10/25/19 21:32 Deltasone - PO 40 mg BID SHERI Administration Ritonavir 100 mg 10/17/19 10:00 10/25/19 10:14 Norvir - PO 100 mg DAILY SHERI Administration Tiotropium [place] 2 puff 10/25/19 13:00 10/25/19 13:32 Spiriva Respimat IH Not Given DAILY SHERI Trimethoprim/Sulfamethoxazole 1 each 10/17/19 10:00 10/24/19 09:08 Bactrim Ds - PO 1 each MoWeFr@1000 SHERI Administration Valacyclovir HCl 1,000 mg 10/19/19 10:00 10/25/19 10:09 Valtrex - PO 1,000 mg DAILY SHERI Administration CBC, BMP 10/26/19 07:10 10/26/19 07:10 ASSESSMENT/PLAN: Uzma Monroe is a 64 year old female with a past medical history of HIV ( CD4 104, viral load 70), HTN, HLD, COPD, GERD admitted for COPD exacerbation secondary to influenza B. # sepsis 2/2 influneza B + , improved * ccpleted ghada flue * cont abx prophylaxis # Acute COPD Exacerbation 2/2 Influenza B+ * dc droplet isolation * Tamiflue renal dose , completed * duoneb and labuterol * pulmonary consulted increase steroids Sulomedrol to 40 Q 6 hr , switch to PO prednisone 40 BID * Spiriva daily * azithromycin 500mg once and continue azithromycin 250mg daily, completed * PPI as on steroids # type 2 DM , newy diagnosed * exacerbated by steroids use started on ISS and levimer 20 BID and novoloh 70/ 30 45 units BID * A1c 7.8 * endo consulted Dr darling #HIV * continue home medications * Bactrim DS MWF * ID consulted # oral thrush due to steroids vs HIV start Nystatin , resolved #FELIZ, resolved , likely pre renal * CRE 1.5 (baseline 0.9-1.2) # cough start Robutossin # Hoarsness in her voice due to flue , cont treatment #HTN * increase losartan to 100 mg daily add BB carvedilol 6.25 BID increased to 12.5 add hctz 12.5 by cardiology follow up echo and BNP #GERD * cont Protonix # weight gain , pt reports she gain 100 pound during last year she needs to follow up with endocrinology as out pt.R.O curtis syndrome , morning cortisole #DVT PPx * heparin 5000 units subq tid # Sinys tachy cardia due to flue vs albuterol SE started on BB # euthyrid sick syndrome TSH low will repeat as out pt after acute phase * Ft3 , Ft4 noted repeat as out pt * follow up wit us and endocrinology as out pt # UTI : no signs UTI negative UA, 30k colony count - no need to treat per ID #FEN * NS 2.5L bolus due to septic vitals, * continue to monitor electrolytes and replete as necessary, hypokalemia noted and repleted * Sodium controlled diet # Tele monitor dc in AM with close follow up Visit type - Emergency Visit Emergency Visit: Yes ED Registration Date: 10/16/19 Care time: The patient presented to the Emergency Department on the above date and was hospitalized for further evaluation of their emergent condition. - New Patient This patient is new to me today: No - Critical Care Critical Care patient: No - Discharge Referral Referred to [facility] Med P.C[facility] No ATTENDING PHYSICIAN STATEMENT I saw and evaluated the patient. I reviewed the resident's note and discussed the case with the resident. I agree with the resident's findings and plan as documented. SUBJECTIVE: OBJECTIVE: ASSESSMENT AND PLAN:
[2019-10-26] MEDS: LEVALBUTEROL HCL 0.63 MG/3 ML VIAL.NEB. IH SCH ×3 (07:45→20:05)
[2019-10-26 08:06] LABS: BASO % 0.3 % (0-2.0); HEMATOCRIT 34.2 % (32.4-45.2); HEMOGLOBIN 11.2 GM/dL (10.7-15.3); LYMPH % 10.1 % (8-40); MCH 30.4 pg (25.7-33.7); MCHC 32.7 g/dl (32.0-36.0); MEAN CELL VOLUME 93.2 fl (80-96); MEAN PLT VOLUME 8.1 fl (7.5-11.1); NEUT % 85.6 % (42.8-82.8); PLATELET COUNT 312 K/MM3 (134-434); RBC 3.67 M/mm3 (3.60-5.2); RDW 18.2 % (11.6-15.6)
[2019-10-26 08:41] LABS: BILIRUBIN,TOTAL 0.4 mg/dL (0.2-1); CALCIUM 8.8 mg/dL (8.5-10.1); CREATININE 1.2 mg/dL (0.55-1.3); N-TERMINAL BNP 527.2 pg/ml (5-125); POTASSIUM 3.5 mmol/L (3.5-5.1); TOT PROT 7.1 g/dl (6.4-8.2)
--- NOTE | 2019-10-26 09:57 | PN ---
Teaching Attending Note Name of Resident: Kayden Morris ATTENDING PHYSICIAN STATEMENT I saw and evaluated the patient. I reviewed the resident's note and discussed the case with the resident. I agree with the resident's findings and plan as documented. SUBJECTIVE: OBJECTIVE: Vital Signs Temperature 97.9 F 10/26/19 07:30 Pulse Rate 72 10/26/19 07:30 Respiratory Rate 18 10/26/19 07:30 Blood Pressure 167/81 10/26/19 07:30 O2 Sat by Pulse Oximetry (%) 94 L 10/25/19 21:00 General: Middle-aged female, comfortable, not in distress HEENT: mucous membranes moist, no anemia, no jaundice, PERRLA, no nystagmus Neck: No JVD, supple, no bruit, thyroid palpably normal, normal carotid pulsations. Chest: Non-tender, bilateral basal rales and wheezes. CVS: S1-S2 regular no murmur/gallop/rub Abdomen: Non-distended, soft, bowel sounds present. 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 , no gross motor sensory deficit CBC, BMP 10/26/19 07:10 10/26/19 07:10 Active Medications Abacavir Sulfate (Ziagen -) 600 mg PO DAILY ON LICENSE OF [facility] Last Admin: 10/25/19 10:12 Dose: 600 mg Albuterol/Ipratropium (Duoneb -) 1 amp NEB Q6H PRN PRN Reason: SHORTNESS OF BREATH Carvedilol (Coreg -) 12.5 mg PO BID ON LICENSE OF [facility] Last Admin: 10/25/19 21:31 Dose: 12.5 mg Darunavir (Prezista -) 800 mg PO DAILY ON [facility] OF [facility] Last Admin: 10/25/19 10:14 Dose: 800 mg Furosemide (Lasix -) 40 mg PO DAILY ON [facility] OF [facility] Gabapentin (Neurontin -) 300 mg PO BID ON LICENSE OF [facility] Last Admin: 10/25/19 21:31 Dose: 300 mg Guaifenesin (Robitussin -) 10 ml PO Q6H PRN PRN Reason: COUGH Last Admin: 10/23/19 09:33 Dose: 10 ml Heparin Sodium (Porcine) (Heparin -) 5,000 unit SQ TID ON [facility] OF [facility] Last Admin: 10/26/19 06:48 Dose: Not Given Insulin Aspart (Novolog Vial) 10 units SQ ACHS ON [facility] OF [facility] Last Admin: 10/26/19 07:13 Dose: 10 units Insulin Aspart (Novolog Mix 70/30 Vial) 45 units SQ BIDAC ON [facility] OF [facility] Last Admin: 10/26/19 07:14 Dose: 45 units Insulin Aspart (Novolog Vial Sliding Scale -) 1 vial SQ ACHS ON LICENSE OF [facility]; Protocol Last Admin: 10/26/19 07:13 Dose: 9 units Insulin Detemir (Levemir Vial) 20 units SQ 0700,2200 ON [facility] OF [facility] Last Admin: 10/26/19 07:13 Dose: 20 units Lactobacillus Acidophilus (Bacid -) 1 tab PO DAILY ON [facility] Last Admin: 10/25/19 10:09 Dose: 1 tab Lamivudine (Epivir -) 300 mg PO DAILY [facility] Last Admin: 10/25/19 10:13 Dose: 300 mg Levalbuterol HCl (Xopenex) 0.63 mg IH RTID ON [facility] Last Admin: 10/25/19 21:00 Dose: 0.63 mg Losartan Potassium (Cozaar -) 100 mg PO DAILY ON [facility] Last Admin: 10/25/19 10:09 Dose: 100 mg Mirtazapine (Remeron -) 15 mg PO HS ON [facility] Last Admin: 10/25/19 21:31 Dose: 15 mg Multivitamins (Total B With C -) 1 each PO DAILY ON [facility] Last Admin: 10/25/19 10:13 Dose: 1 each Nystatin (Nystatin Oral Suspension -) 500,000 units PO Q6HPO ON [facility] OF [facility] Last Admin: 10/26/19 07:14 Dose: 500,000 units Pantoprazole Sodium (Protonix -) 40 mg PO DAILY ON [facility] Last Admin: 10/25/19 10:09 Dose: 40 mg Prednisone (Deltasone -) 40 mg PO BID ON [facility] Last Admin: 10/25/19 21:32 Dose: 40 mg Ritonavir (Norvir -) 100 mg PO DAILY ON [facility] Last Admin: 10/25/19 10:14 Dose: 100 mg Tiotropium [place] (Spiriva Respimat) 2 puff IH DAILY ON LICENSE OF [facility] Last Admin: 10/25/19 13:32 Dose: Not Given Trimethoprim/Sulfamethoxazole (Bactrim Ds -) 1 each PO MoWeFr@1000 ON [facility] OF [facility] Last Admin: 10/24/19 09:08 Dose: 1 each Valacyclovir HCl (Valtrex -) 1,000 mg PO DAILY ON [facility] Last Admin: 10/25/19 10:09 Dose: 1,000 mg ASSESSMENT AND PLAN:64 years old female history of HIV on [place], CD4 count around 3, on suppressive dose of Valtrex, type 2 diabetes mellitus recurrent Influenza a and B infection, asthma/COPD presented with worsening shortness of breath with hypoxia and influenza B infection, initially on IV steroids, uncontrolled diabetes mellitus due to high-dose corticosteroids 2 days switch to p.o. prednisone 40 mg yesterday. Plan: 1. Reactive airway disease/asthma exacerbation: Patient significantly improved, Currently not on any injectable medication, incentive spirometry Follow-up pulmonary consult recommendations: Add Spiriva and Symbicort, albuterol MDI as needed every 4 hourly prednisone 40 mg twice daily taper by 10 mg every second day 40 mg 40 mg twice daily for 3 days 30 mg twice daily for 3 20 mg daysTwice daily for 3 days 20 mg daily for 3 days 10 mg daily for 3 days 2. Uncontrolled diabetes mellitus, patient comes with hemoglobin 7.8 but severe hypoglycemia due to high-dose prednisone, now trending normal Levemir 30 units at bedtime Correction dose lispro AC as per sliding scale Add metformin 500 mg twice daily Patient can follow-up with [facility] as outpatient 3. Sick thyroid syndrome: Follow-up with [facility] repeat thyroid panel in few weeks 4. Uncontrolled hypertension continue all medication as recommended by cardiology DC Lasix continue hydrochlorothiazide 5. HIV: Continue heart medications Discharge plan discussed patient and resident Problem List - Problems (1) Influenza B Code(s): J10.1 - FLU DUE TO OTH IDENT INFLUENZA VIRUS W OTH RESP MANIFEST (2) Sepsis Code(s): A41.9 - SEPSIS, UNSPECIFIED ORGANISM (3) AIDS Code(s): B20 - HUMAN IMMUNODEFICIENCY VIRUS [HIV] DISEASE (4) Type 2 diabetes mellitus with other diabetic arthropathy Code(s): E11.618 - TYPE 2 DIABETES MELLITUS WITH OTHER DIABETIC ARTHROPATHY (5) Hypertension Code(s): I10 - ESSENTIAL (PRIMARY) HYPERTENSION (6) Depression Code(s): F32.9 - MAJOR DEPRESSIVE DISORDER, SINGLE EPISODE, UNSPECIFIED (7) Acute exacerbation of COPD with asthma Code(s): J44.1 - CHRONIC OBSTRUCTIVE PULMONARY DISEASE W (ACUTE) EXACERBATION; J45.901 - UNSPECIFIED ASTHMA WITH (ACUTE) EXACERBATION
[2019-10-26] MEDS ORDERED: FUROSEMIDE 40 MG TABLET (FP) PO SCH (10:00)
[2019-10-26] MEDS ORDERED: PT OWN MED DRAWER 7, Y5N ONE (10:24)
[2019-10-26] MEDS: SULFAMETHOXAZOLE/TRIMETHOPRIM 800MG/160MG D.S. TABLET PO SCH (10:49)
[2019-10-26] MEDS: VITAMIN B COMPLEX W/C COMBO TABLET (FP) PO SCH (10:49)
[2019-10-26] MEDS: GABAPENTIN 300 MG CAPSULE PO SCH ×2 (10:49→22:04)
[2019-10-26] MEDS: CARVEDILOL 12.5 MG TABLET (FP) PO SCH (10:49)
[2019-10-26] MEDS: valACYclovir HCL 500 MG TABLET (FP) PO SCH (10:49)
[2019-10-26] MEDS: predniSONE 20 MG TABLET (UD) PO SCH ×2 (10:50→22:04)
[2019-10-26] MEDS: ABACAVIR SULFATE 300 MG TABLET PO SCH (10:50)
[2019-10-26] MEDS: PANTOPRAZOLE 40 MG TABLET PO SCH (10:51)
[2019-10-26] MEDS: LACTOBACILLUS ACIDOPHILUS 1 TABLET PO SCH (10:51)
[2019-10-26] MEDS: lamiVUDine 150 MG TABLET PO SCH (10:52)
[2019-10-26] MEDS: LOSARTAN POTASSIUM 50 MG TABLET (FP) PO SCH (10:52)
[2019-10-26] MEDS: RITONAVIR 100 MG TABLET PO SCH (10:53)
[2019-10-26] MEDS: DARUNAVIR ETHANOLATE 800 MG TAB PO SCH (10:53)
--- NOTE | 2019-10-26 11:15 | PN ---
Progress Note, Physician History of Present Illness: pulmonary alert,still congested,less dyspneic on prednisone - Current Medication List Current Medications: Active Medications Abacavir Sulfate (Ziagen -) 600 mg PO DAILY [facility] Last Admin: 10/26/19 10:50 Dose: 600 mg Albuterol/Ipratropium (Duoneb -) 1 amp NEB Q6H PRN PRN Reason: SHORTNESS OF BREATH Carvedilol (Coreg -) 12.5 mg PO BID [facility] Last Admin: 10/26/19 10:49 Dose: 12.5 mg Darunavir (Prezista -) 800 mg PO DAILY [facility] Last Admin: 10/26/19 10:53 Dose: 800 mg Furosemide (Lasix -) 40 mg PO DAILY [facility] Last Admin: 10/26/19 10:50 Dose: 40 mg Gabapentin (Neurontin -) 300 mg PO BID [facility] Last Admin: 10/26/19 10:49 Dose: 300 mg Guaifenesin (Robitussin -) 10 ml PO Q6H PRN PRN Reason: COUGH Last Admin: 10/23/19 09:33 Dose: 10 ml Heparin Sodium (Porcine) (Heparin -) 5,000 unit SQ TID [facility] Last Admin: 10/26/19 06:48 Dose: Not Given Insulin Aspart (Novolog Vial) 10 units SQ [facility] Last Admin: 10/26/19 07:13 Dose: 10 units Insulin Aspart (Novolog Mix 70/30 Vial) 45 units SQ BIDAC [facility] Last Admin: 10/26/19 07:14 Dose: 45 units Insulin Aspart (Novolog Vial Sliding Scale -) 1 vial SQ [facility]; Protocol Last Admin: 10/26/19 07:13 Dose: 9 units Insulin Detemir (Levemir Vial) 20 units SQ 0700,2200 [facility] Last Admin: 10/26/19 07:13 Dose: 20 units Lactobacillus Acidophilus (Bacid -) 1 tab PO DAILY [facility] Last Admin: 10/26/19 10:51 Dose: 1 tab Lamivudine (Epivir -) 300 mg PO DAILY [facility] Last Admin: 10/26/19 10:52 Dose: 300 mg Levalbuterol HCl (Xopenex) 0.63 mg IH RTID [facility] Last Admin: 10/25/19 21:00 Dose: 0.63 mg Losartan Potassium (Cozaar -) 100 mg PO DAILY [facility] Last Admin: 10/26/19 10:52 Dose: 100 mg Mirtazapine (Remeron -) 15 mg PO HS [facility] Last Admin: 10/25/19 21:31 Dose: 15 mg Multivitamins (Total B With C -) 1 each PO DAILY [facility] Last Admin: 10/26/19 10:49 Dose: 1 each Nystatin (Nystatin Oral Suspension -) 500,000 units PO Q6HPO [facility] Last Admin: 10/26/19 07:14 Dose: 500,000 units Pantoprazole Sodium (Protonix -) 40 mg PO DAILY [facility] Last Admin: 10/26/19 10:51 Dose: 40 mg Prednisone (Deltasone -) 40 mg PO BID [facility] Last Admin: 10/26/19 10:50 Dose: 40 mg Ritonavir (Norvir -) 100 mg PO DAILY [facility] Last Admin: 10/26/19 10:53 Dose: 100 mg Tiotropium [place] (Spiriva Respimat) 2 puff IH DAILY [facility] Last Admin: 10/25/19 13:32 Dose: Not Given Trimethoprim/Sulfamethoxazole (Bactrim Ds -) 1 each PO MoWeFr@1000 [facility] Last Admin: 10/26/19 10:49 Dose: 1 each Valacyclovir HCl (Valtrex -) 1,000 mg PO DAILY [facility] Last Admin: 10/26/19 10:49 Dose: 1,000 mg - Objective Vital Signs: Vital Signs Temperature 97.9 F 10/26/19 07:30 Pulse Rate 72 10/26/19 07:30 Respiratory Rate 18 10/26/19 07:30 Blood Pressure 167/81 10/26/19 07:30 O2 Sat by Pulse Oximetry (%) 94 L 10/25/19 21:00 Constitutional: Yes: Well Nourished, Calm Eyes: Yes: WNL HENT: Yes: WNL Neck: Yes: WNL Cardiovascular: Yes: Regular Rate and Rhythm, S1, S2 Respiratory: Yes: Rhonchi (mitzy wheezes and rhonchi), Wheezes Gastrointestinal: Yes: Normal Bowel Sounds, Soft Extremities: Yes: WNL Edema: No Labs: CBC, BMP 10/26/19 07:10 10/26/19 07:10 INR, PTT INR 1.02 (0.83-1.09) 10/16/19 18:31 Assessment/Plan Problem List - Problems (1) Influenza B Code(s): J10.1 - FLU DUE TO OTH IDENT INFLUENZA VIRUS W OTH RESP MANIFEST (2) AIDS Code(s): B20 - HUMAN IMMUNODEFICIENCY VIRUS [HIV] DISEASE (3) FELIZ (acute kidney injury) Code(s): N17.9 - ACUTE KIDNEY FAILURE, UNSPECIFIED (4) COPD exacerbation Code(s): J44.1 - CHRONIC OBSTRUCTIVE PULMONARY DISEASE W (ACUTE) EXACERBATION (5) Cough Code(s): R05 - COUGH (6) Diarrhea Code(s): R19.7 - DIARRHEA, UNSPECIFIED Qualifiers: Diarrhea type: unspecified type Qualified Code(s): R19.7 - Diarrhea, unspecified (7) Hypertension Code(s): I10 - ESSENTIAL (PRIMARY) HYPERTENSION (8) COPD (chronic obstructive pulmonary disease) Code(s): J44.9 - CHRONIC OBSTRUCTIVE PULMONARY DISEASE, UNSPECIFIED (9) Peripheral neuropathy Code(s): G62.9 - POLYNEUROPATHY, UNSPECIFIED Assessment/Plan Prednisone 40mg bid Supplemental O2 as needed inhaled bronchodilators symbicort 160/4.5 bid spriiva 2 inhalations daily VTE prophylaxis DR BELLA
--- NOTE | 2019-10-26 11:39 | PN ---
Progress Note (short form) - Note Progress Note: s: no chest pain, palps, dizziness, dyspnea Current Medications Abacavir Sulfate (Ziagen -) 600 mg PO DAILY [facility] Last Admin: 10/26/19 10:50 Dose: 600 mg Albuterol/Ipratropium (Duoneb -) 1 amp NEB Q6H PRN PRN Reason: SHORTNESS OF BREATH Darunavir (Prezista -) 800 mg PO DAILY [facility] Last Admin: 10/26/19 10:53 Dose: 800 mg Gabapentin (Neurontin -) 300 mg PO BID [facility] Last Admin: 10/26/19 10:49 Dose: 300 mg Guaifenesin (Robitussin -) 10 ml PO Q6H PRN PRN Reason: COUGH Last Admin: 10/23/19 09:33 Dose: 10 ml Heparin Sodium (Porcine) (Heparin -) 5,000 unit SQ TID [facility] Last Admin: 10/26/19 06:48 Dose: Not Given Hydrochlorothiazide (Hctz -) 25 mg PO DAILY [facility] Insulin Aspart (Novolog Vial) 10 units SQ ACHS [facility] Last Admin: 10/26/19 07:13 Dose: 10 units Insulin Aspart (Novolog Mix 70/30 Vial) 45 units SQ BIDAC [facility] Last Admin: 10/26/19 07:14 Dose: 45 units Insulin Aspart (Novolog Vial Sliding Scale -) 1 vial SQ [facility]; Protocol Last Admin: 10/26/19 07:13 Dose: 9 units Insulin Detemir (Levemir Vial) 20 units SQ 0700,2200 [facility] Last Admin: 10/26/19 07:13 Dose: 20 units Lactobacillus Acidophilus (Bacid -) 1 tab PO DAILY [facility] Last Admin: 10/26/19 10:51 Dose: 1 tab Lamivudine (Epivir -) 300 mg PO DAILY [facility] Last Admin: 10/26/19 10:52 Dose: 300 mg Levalbuterol HCl (Xopenex) 0.63 mg IH RTID [facility] Last Admin: 10/25/19 21:00 Dose: 0.63 mg Losartan Potassium (Cozaar -) 100 mg PO DAILY [facility] Last Admin: 10/26/19 10:52 Dose: 100 mg Mirtazapine (Remeron -) 15 mg PO HS [facility] Last Admin: 10/25/19 21:31 Dose: 15 mg Multivitamins (Total B With C -) 1 each PO DAILY [facility] Last Admin: 10/26/19 10:49 Dose: 1 each Nystatin (Nystatin Oral Suspension -) 500,000 units PO Q6HPO [facility] Last Admin: 10/26/19 07:14 Dose: 500,000 units Pantoprazole Sodium (Protonix -) 40 mg PO DAILY [facility] Last Admin: 10/26/19 10:51 Dose: 40 mg Prednisone (Deltasone -) 40 mg PO BID [facility] Last Admin: 10/26/19 10:50 Dose: 40 mg Ritonavir (Norvir -) 100 mg PO DAILY [facility] Last Admin: 10/26/19 10:53 Dose: 100 mg Tiotropium [place] (Spiriva Respimat) 2 puff IH DAILY [facility] Last Admin: 10/25/19 13:32 Dose: Not Given Trimethoprim/Sulfamethoxazole (Bactrim Ds -) 1 each PO MoWeFr@1000 [facility] Last Admin: 10/26/19 10:49 Dose: 1 each Valacyclovir HCl (Valtrex -) 1,000 mg PO DAILY [facility] Last Admin: 10/26/19 10:49 Dose: 1,000 mg Vital Signs Period Temp Pulse Resp BP Sys/[place] Pulse Ox Last 24 Hr 97.9 F-98.2 F 72-108 18-20 149-186/81-116 94 Constitutional: Yes: No Distress, Calm Eyes: Yes: Conjunctiva Clear Respiratory: Yes: Rhonchi, Wheezes Gastrointestinal: Yes: Soft (generally soft, nontender. + bowel sounds.) Cardiovascular: Yes: Regular Rate and Rhythm JVD: No Carotid Bruit: No PMI: Non-Displaced Heart Sounds: Yes: S1, S2 (RRR, no murmurs) Edema: Yes Edema: trace Neurological: Yes: Alert, Oriented Sinus tach 127bpm, cannot r/o old septal KS Echo: Report Reviewed (July 2019: LVH, normla LVEF, no sig valve dz) Ejection Fraction %: LVEF > or = 40 % Imaging - Results X-ray: Image Reviewed Assessment/Plan IMP: Chronic HTN Chronic hypertensive heart disease/LVH/ diastolic dysfx Influenza B triggering AECOPD COPD HIV REC: 1. HTN: chronic, nexacerbated in setting of steroids - cont losartan 100 mg daily - not improving with coreg and as history of COPD with frequent exacerbations, will dc - given she also has intermittent edema on steroids and BP not at goal, dc lasix ( got one dose today) and start HCTZ 25 mg daily starting tomorrow - she has home BP cuff being sent - plan to log BPs and bring to office, goal BP <140/90 2. AECOPD triggered by Influenza B: -Rx as per primary team and pulmonary -Steroid taper. -Levalbuterol as needed to minimize tachycardia 3. HIV: -As per primary team 4. Edema: secondary to chronic diastolic dysfx/ hypertensive heart disease -Mild fluid retention possibly due to steroids. -Agree with BNP -Steroid taper -received PO lasix today, change to HCTZ as above
[2019-10-26] MEDS: TIOTROPIUM BROMIDE 2.5 MCG (SPIRIVA) RESPIMAT INHALER IH SCH (11:53)
[2019-10-26 12:05] LABS: ANISOCYTOSIS 0; MACROCYTOSIS 0; PLATELET ESTIMATE NORMAL
--- NOTE | 2019-10-26 12:28 | ECHO ---
Version: 1 Name: ANIKA ALLEN Exam: Adult Echocardiogram Study Date: 10/26/2019, 9:57 AM Age: 64 Years MMode/2D Measurements & Calculations IVSd: 0.72 cm LVIDs: 3.1 cm LVIDd: 5.5 cm LVPWd: 0.92 cm ACS: 2.08 cm Ao root diam: 2.6 cm LA dimension: 3.3 cm Doppler Measurements & Calculations MV E max mukesh: 64.8 cm/sec Med E/e': 9.9 MV A max mukesh: 105.5 cm/sec Med Peak E' Mukesh: 6.6 cm/sec MV E/A: 0.61 Lat E/e': 8.6 Lat Peak E' Mukesh: 7.6 cm/sec MR max P.4 mmHg Ao max P.2 mmHg Ao mean P.6 mmHg Ao V2 max: 151.3 cm/sec TR max mukesh: 201.8 cm/sec TR max P.5 mmHg Left Ventricle The left ventricular size, thickness and function are normal. Ejection Fraction = 65-70%. The transm itral spectral Doppler flow pattern is suggestive of impaired LV relaxation. Right Ventricle The right ventricle is not well visualized. The right ventricular systolic function is grossly elliot l. Atria Normal left and right atrial size and function. Mitral Valve The mitral valve is normal in structure and function. Tricuspid Valve The tricuspid valve is not well visualized. There is trace tricuspid regurgitation. Right ventricula r systolic pressure is normal. Aortic Valve There is mild aortic valve thickening. No hemodynamically significant valvular aortic stenosis. Great Vessels The aortic root is normal size. Pericardium/Pleura Trivial pericardial effusion not hemodynamically significant. Summary Statements The left ventricular size, thickness and function are normal. Ejection Fraction = 65-70%. The right ventricle is not well visualized. The right ventricular systolic function is grossly elliot l. Normal left and right atrial size and function. There is mild aortic valve thickening. No hemodynamically significant valvular aortic stenosis. The mitral valve is normal in structure and function. Trivial pericardial effusion not hemodynamically significant MD Yessy Shaikh10/26/2019, 12:28 PM Ordering Physician: Kayden Morris Performed By: Vikki Resendez
--- NOTE | 2019-10-26 12:39 | PN ---
Progress Note (short form) - Note Progress Note: conitnues to wheeze sugars are fluctuating concerned about her weight Vital Signs Period Temp Pulse Resp BP Sys/[place] Pulse Ox Last 24 Hr 97.3 F-98.2 F 72-108 18-20 138-186/81-116 93-94 cor-rrr lungs scattered rhonchi, wheeze abd soft,nt ext trace edema CBC, BMP 10/26/19 07:10 10/26/19 07:10 a/p Influenza B has completed tamiflu copd exacerbation- d/w pulmonary- on prednisone, will need slow taper as outpt hyperglycemia due to steroids-needs diabetic teaching and a better insulin schedule that she can follow at home diarrhea- resolved HIV-AIDS by tcells- continue art and bactrim for pcp prophylaxis- nystatin for thrush Problem List - Problems (1) Influenza B Code(s): J10.1 - FLU DUE TO OTH IDENT INFLUENZA VIRUS W OTH RESP MANIFEST (2) FELIZ (acute kidney injury) Code(s): N17.9 - ACUTE KIDNEY FAILURE, UNSPECIFIED (3) Diarrhea Code(s): R19.7 - DIARRHEA, UNSPECIFIED Qualifiers: Diarrhea type: unspecified type Qualified Code(s): R19.7 - Diarrhea, unspecified (4) AIDS Code(s): B20 - HUMAN IMMUNODEFICIENCY VIRUS [HIV] DISEASE (5) COPD exacerbation Code(s): J44.1 - CHRONIC OBSTRUCTIVE PULMONARY DISEASE W (ACUTE) EXACERBATION
[2019-10-26] MEDS: BUDESONIDE/FORMETEROL FUMARATE 160/4.5 mcg INHALER IH SCH ×2 (14:35→22:05)
[2019-10-26] MEDS ORDERED: INSULIN (NOVOLOG MIX 70/30) 100 UNITS/ML MDV SQ SCH (16:30)
[2019-10-26] MEDS ORDERED: ZOLPIDEM TARTRATE 5 MG TABLET PO ONE (21:34)
[2019-10-26] MEDS: MIRTAZAPINE 15 MG TABLET (FP) PO SCH (22:04)
--- NOTE | 2019-10-26 22:59 | PN ---
Progress Note, Physician Chief Complaint: episodes of hyperglycemia likely diet - Current Medication List Current Medications: Active Medications Abacavir Sulfate (Ziagen -) 600 mg PO DAILY [facility] Last Admin: 10/26/19 10:50 Dose: 600 mg Albuterol/Ipratropium (Duoneb -) 1 amp NEB Q6H PRN PRN Reason: SHORTNESS OF BREATH Budesonide/Formoterol Fumarate (Symbicort 160/4.5mcg -) 2 puff IH BID [facility] Last Admin: 10/26/19 22:05 Dose: 2 puff Darunavir (Prezista -) 800 mg PO DAILY [facility] Last Admin: 10/26/19 10:53 Dose: 800 mg Gabapentin (Neurontin -) 300 mg PO BID [facility] Last Admin: 10/26/19 22:04 Dose: 300 mg Guaifenesin (Robitussin -) 10 ml PO Q6H PRN PRN Reason: COUGH Last Admin: 10/23/19 09:33 Dose: 10 ml Heparin Sodium (Porcine) (Heparin -) 5,000 unit SQ TID [facility] Last Admin: 10/26/19 21:50 Dose: Not Given Hydrochlorothiazide (Hctz -) 25 mg PO DAILY [facility] Insulin Aspart (Novolog Vial) 10 units SQ ACHS [facility] Last Admin: 10/26/19 22:03 Dose: 10 units Insulin Aspart (Novolog Vial Sliding Scale -) 1 vial SQ ACHS [facility]; Protocol Last Admin: 10/26/19 22:03 Dose: 8 unit Insulin Aspart (Novolog Mix 70/30 Vial) 15 units SQ BIDAC [facility] Last Admin: 10/26/19 17:03 Dose: 15 units Lactobacillus Acidophilus (Bacid -) 1 tab PO DAILY [facility] Last Admin: 10/26/19 10:51 Dose: 1 tab Lamivudine (Epivir -) 300 mg PO DAILY [facility] Last Admin: 10/26/19 10:52 Dose: 300 mg Levalbuterol HCl (Xopenex) 0.63 mg IH RTID [facility] Last Admin: 10/26/19 20:05 Dose: 0.63 mg Losartan Potassium (Cozaar -) 100 mg PO DAILY [facility] Last Admin: 10/26/19 10:52 Dose: 100 mg Mirtazapine (Remeron -) 15 mg PO HS [facility] Last Admin: 10/26/19 22:04 Dose: 15 mg Multivitamins (Total B With C -) 1 each PO DAILY [facility] Last Admin: 10/26/19 10:49 Dose: 1 each Nystatin (Nystatin Oral Suspension -) 500,000 units PO Q6HPO [facility] Last Admin: 10/26/19 17:05 Dose: 500,000 units Pantoprazole Sodium (Protonix -) 40 mg PO DAILY [facility] Last Admin: 10/26/19 10:51 Dose: 40 mg Prednisone (Deltasone -) 40 mg PO BID [facility] Last Admin: 10/26/19 22:04 Dose: 40 mg Ritonavir (Norvir -) 100 mg PO DAILY [facility] Last Admin: 10/26/19 10:53 Dose: 100 mg Tiotropium [place] (Spiriva Respimat) 2 puff IH DAILY [facility] Last Admin: 10/26/19 11:53 Dose: Not Given Trimethoprim/Sulfamethoxazole (Bactrim Ds -) 1 each PO MoWeFr@1000 [facility] Last Admin: 10/26/19 10:49 Dose: 1 each Valacyclovir HCl (Valtrex -) 1,000 mg PO DAILY [facility] Last Admin: 10/26/19 10:49 Dose: 1,000 mg - Objective Vital Signs: Vital Signs Temperature 98.2 F 10/26/19 18:00 Pulse Rate 82 10/26/19 18:00 Respiratory Rate 18 10/26/19 18:00 Blood Pressure 142/78 10/26/19 18:00 O2 Sat by Pulse Oximetry (%) 93 L 10/26/19 09:00 Constitutional: Yes: Calm Eyes: Yes: EOM Intact HENT: Yes: Normocephalic Neck: Yes: Trachea Midline Cardiovascular: Yes: Regular Rate and Rhythm Respiratory: Yes: CTA Bilaterally Gastrointestinal: Yes: Normal Bowel Sounds ...Rectal Exam: Yes: Deferred Genitourinary: Yes: WNL Musculoskeletal: Yes: WNL Extremities: Yes: WNL Edema: No Neurological: Yes: Alert, Oriented Labs: CBC, BMP 10/26/19 07:10 10/26/19 07:10 INR, PTT INR 1.02 (0.83-1.09) 10/16/19 18:31 Problem List - Problems (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 Code(s): E11.618 - TYPE 2 DIABETES MELLITUS WITH OTHER DIABETIC ARTHROPATHY (2) AIDS Code(s): B20 - HUMAN IMMUNODEFICIENCY VIRUS [HIV] DISEASE (3) FELIZ (acute kidney injury) Code(s): N17.9 - ACUTE KIDNEY FAILURE, UNSPECIFIED (4) Abnormal LFTs Code(s): R94.5 - ABNORMAL RESULTS OF LIVER FUNCTION STUDIES (5) Acute exacerbation of COPD with asthma Code(s): J44.1 - CHRONIC OBSTRUCTIVE PULMONARY DISEASE W (ACUTE) EXACERBATION; J45.901 - UNSPECIFIED ASTHMA WITH (ACUTE) EXACERBATION (6) Asthma exacerbation Code(s): J45.901 - UNSPECIFIED ASTHMA WITH (ACUTE) EXACERBATION Assessment/Plan Current Active Problems Influenza B (Acute) Sepsis (Acute) Type 2 diabetes mellitus with other diabetic arthropathy (Acute) Laboratory Results - last 24 hr 10/26/19 10/26/19 10/26/19 07:10 07:10 07:12 WBC 17.0 H RBC 3.67 Hgb 11.2 Hct 34.2 MCV 93.2 MCH 30.4 MCHC 32.7 RDW 18.2 H Plt Count 312 MPV 8.1 Absolute Neuts (auto) 14.5 H Neutrophils % 85.6 H Neutrophils % (Manual) 76.0 Band Neutrophils % 0.0 Lymphocytes % 10.1 D Lymphocytes % (Manual) 12.0 D Monocytes % 4.0 Monocytes % (Manual) 4 D Eosinophils % 0.0 Eosinophils % (Manual) 0.0 Basophils % 0.3 Basophils % (Manual) 0.0 Myelocytes % (Man) 2 D Promyelocytes % (Man) 0 Blast Cells % (Manual) 0 Nucleated RBC % 2 H Metamyelocytes 3 H D Hypochromia 0 Platelet Estimate Normal Polychromasia 1+ Poikilocytosis 0 Anisocytosis 0 Microcytosis 0 Macrocytosis 0 Sodium 140 Potassium 3.5 Chloride 105 Carbon Dioxide 27 Anion Gap 8 BUN 24.0 H Creatinine 1.2 Est GFR (CKD-EPI)AfAm 55.70 Est GFR (CKD-EPI)NonAf 48.06 POC Glucometer 203 Random Glucose 210 H Calcium 8.8 Total Bilirubin 0.4 AST 32 ALT 105 H Alkaline Phosphatase 136 H B-Natriuretic Peptide 527.2 H Total Protein 7.1 Albumin 3.0 L 10/26/19 10/26/19 10/26/19 11:51 15:51 21:54 WBC RBC Hgb Hct MCV MCH MCHC RDW Plt Count MPV Absolute Neuts (auto) Neutrophils % Neutrophils % (Manual) Band Neutrophils % Lymphocytes % Lymphocytes % (Manual) Monocytes % Monocytes % (Manual) Eosinophils % Eosinophils % (Manual) Basophils % Basophils % (Manual) Myelocytes % (Man) Promyelocytes % (Man) Blast Cells % (Manual) Nucleated RBC % Metamyelocytes Hypochromia Platelet Estimate Polychromasia Poikilocytosis Anisocytosis Microcytosis Macrocytosis Sodium Potassium Chloride Carbon Dioxide Anion Gap BUN Creatinine Est GFR (CKD-EPI)AfAm Est GFR (CKD-EPI)NonAf POC Glucometer 216 149 320 Random Glucose Calcium Total Bilirubin AST ALT Alkaline Phosphatase B-Natriuretic Peptide Total Protein Albumin plan: reduce insulin doses titrate novolog scale and 70/30 bid doses dc levemir
[2019-10-27] MEDS: INSULIN (NOVOLOG) ASPART 100 UNITS/ML 10ML VIAL SQ SCH ×2 (06:55→11:59)
[2019-10-27] MEDS: HEPARIN NA (PORCINE) 5,000 UNITS/ML 1ML VIAL SQ SCH ×2 (06:55→13:10)
[2019-10-27] MEDS: INSULIN SLIDING SCALE (NOVOLOG) 1 VIAL SQ SCH ×2 (06:56→11:55)
[2019-10-27] MEDS ORDERED: INSULIN (NOVOLOG MIX 70/30) 100 UNITS/ML MDV SQ SCH (07:00)
[2019-10-27] MEDS: NYSTATIN 500,000 UNITS/5 ML SUSPENSION PO SCH ×2 (07:01→13:10)
[2019-10-27] MEDS ORDERED: PT OWN MED DRAWER 7, Y5N ONE (08:54)
[2019-10-27] MEDS: LACTOBACILLUS ACIDOPHILUS 1 TABLET PO SCH (09:08)
[2019-10-27] MEDS: LOSARTAN POTASSIUM 50 MG TABLET (FP) PO SCH (09:08)
[2019-10-27] MEDS: predniSONE 20 MG TABLET (UD) PO SCH (09:10)
[2019-10-27] MEDS: lamiVUDine 150 MG TABLET PO SCH (09:11)
[2019-10-27] MEDS: GABAPENTIN 300 MG CAPSULE PO SCH (09:11)
[2019-10-27] MEDS: RITONAVIR 100 MG TABLET PO SCH (09:11)
[2019-10-27] MEDS: VITAMIN B COMPLEX W/C COMBO TABLET (FP) PO SCH (09:12)
[2019-10-27] MEDS: DARUNAVIR ETHANOLATE 800 MG TAB PO SCH (09:12)
[2019-10-27] MEDS: PANTOPRAZOLE 40 MG TABLET PO SCH (09:12)
[2019-10-27] MEDS: valACYclovir HCL 500 MG TABLET (FP) PO SCH (09:12)
[2019-10-27] MEDS: ABACAVIR SULFATE 300 MG TABLET PO SCH (09:12)
[2019-10-27] MEDS: BUDESONIDE/FORMETEROL FUMARATE 160/4.5 mcg INHALER IH SCH (09:13)
[2019-10-27] MEDS: TIOTROPIUM BROMIDE 2.5 MCG (SPIRIVA) RESPIMAT INHALER IH SCH (09:16)
--- NOTE | 2019-10-27 09:39 | PN ---
Teaching Attending Note Name of Resident: Kayden Morris ATTENDING PHYSICIAN STATEMENT I saw and evaluated the patient. I reviewed the resident's note and discussed the case with the resident. I agree with the resident's findings and plan as documented. SUBJECTIVE: Patient feels comfortable less shortness of breath fingersticks are better controlled. OBJECTIVE: Vital Signs Temperature 97.4 F L 10/26/19 21:00 Pulse Rate 114 H 10/26/19 21:00 Respiratory Rate 22 H 10/26/19 21:00 Blood Pressure 159/84 10/26/19 21:00 O2 Sat by Pulse Oximetry (%) 95 10/26/19 21:00 General: Middle-aged female, comfortable, not in distress HEENT: mucous membranes moist, no anemia, no jaundice, PERRLA, no nystagmus Neck: No JVD, supple, no bruit, thyroid palpably normal, normal carotid pulsations. Chest: Non-tender, bilateral basal rales and wheezes. CVS: S1-S2 regular no murmur/gallop/rub Abdomen: Non-distended, soft, bowel sounds present. Extremities: No edema., No calf tenderness, pulses present BARN HAND: AO X3 , no gross motor sensory deficit CBC, BMP 10/26/19 07:10 10/26/19 07:10 Active Medications Abacavir Sulfate (Ziagen -) 600 mg PO DAILY [facility] Last Admin: 10/27/19 09:12 Dose: 600 mg Albuterol/Ipratropium (Duoneb -) 1 amp NEB Q6H PRN PRN Reason: SHORTNESS OF BREATH Budesonide/Formoterol Fumarate (Symbicort 160/4.5mcg -) 2 puff IH BID [facility] Last Admin: 10/27/19 09:13 Dose: 2 puff Darunavir (Prezista -) 800 mg PO DAILY [facility] Last Admin: 10/27/19 09:12 Dose: 800 mg Gabapentin (Neurontin -) 300 mg PO BID [facility] Last Admin: 10/27/19 09:11 Dose: 300 mg Guaifenesin (Robitussin -) 10 ml PO Q6H PRN PRN Reason: COUGH Last Admin: 10/23/19 09:33 Dose: 10 ml Heparin Sodium (Porcine) (Heparin -) 5,000 unit SQ TID [facility] Last Admin: 10/27/19 13:10 Dose: Not Given Hydrochlorothiazide (Hctz -) 25 mg PO DAILY [facility] Last Admin: 10/27/19 09:11 Dose: 25 mg Insulin Aspart (Novolog Vial) 10 units SQ ACHS [facility] Last Admin: 10/27/19 11:59 Dose: 10 units Insulin Aspart (Novolog Vial Sliding Scale -) 1 vial SQ ACHS [facility]; Protocol Last Admin: 10/27/19 11:55 Dose: 10 unit Insulin Aspart (Novolog Mix 70/30 Vial) 20 units SQ BIDAC [facility] Last Admin: 10/27/19 06:56 Dose: 20 units Lactobacillus Acidophilus (Bacid -) 1 tab PO DAILY [facility] Last Admin: 10/27/19 09:08 Dose: 1 tab Lamivudine (Epivir -) 300 mg PO DAILY [facility] Last Admin: 10/27/19 09:11 Dose: 300 mg Levalbuterol HCl (Xopenex) 0.63 mg IH RTID [facility] Last Admin: 10/27/19 13:00 Dose: 0.63 mg Losartan Potassium (Cozaar -) 100 mg PO DAILY [facility] Last Admin: 10/27/19 09:08 Dose: 100 mg Mirtazapine (Remeron -) 15 mg PO HS [facility] Last Admin: 10/26/19 22:04 Dose: 15 mg Multivitamins (Total B With C -) 1 each PO DAILY [facility] Last Admin: 10/27/19 09:12 Dose: 1 each Nystatin (Nystatin Oral Suspension -) 500,000 units PO Q6HPO [facility] Last Admin: 10/27/19 13:10 Dose: 500,000 units Pantoprazole Sodium (Protonix -) 40 mg PO DAILY [facility] Last Admin: 10/27/19 09:12 Dose: 40 mg Prednisone (Deltasone -) 40 mg PO BID [facility] Last Admin: 10/27/19 09:10 Dose: 40 mg Ritonavir (Norvir -) 100 mg PO DAILY [facility] Last Admin: 10/27/19 09:11 Dose: 100 mg Tiotropium [place] (Spiriva Respimat) 2 puff IH DAILY [facility] Last Admin: 10/27/19 09:16 Dose: Not Given Trimethoprim/Sulfamethoxazole (Bactrim Ds -) 1 each PO MoWeFr@1000 [facility] Last Admin: 10/26/19 10:49 Dose: 1 each Valacyclovir HCl (Valtrex -) 1,000 mg PO DAILY [facility] Last Admin: 10/27/19 09:12 Dose: 1,000 mg ASSESSMENT AND PLAN:64 years old female history of HIV on [place], CD4 count around 276 required PCP prophylaxi, on suppressive dose of Valtrex, type 2 diabetes mellitus recurrent Influenza a and B infection, asthma/COPD presented with worsening shortness of breath with hypoxia and influenza B infection, initially on IV steroids, uncontrolled diabetes mellitus due to high-dose corticosteroids 3 days switch to p.o. prednisone . Plan: Optimize glycemic control patient can be discharged home on prednisone taper as discussed earlier, close follow-up with pulmonary endocrinology , and ID clinic Problem List - Problems (1) Influenza B Assessment/Plan: Completed Tamiflu Code(s): J10.1 - FLU DUE TO OTH IDENT INFLUENZA VIRUS W OTH RESP MANIFEST (2) Sepsis Assessment/Plan: Due to influenza infection improved Problems reviewed: Yes Code(s): A41.9 - SEPSIS, UNSPECIFIED ORGANISM (3) AIDS Assessment/Plan: Continue all HIV medication Code(s): B20 - HUMAN IMMUNODEFICIENCY VIRUS [HIV] DISEASE (4) Type 2 diabetes mellitus with other diabetic arthropathy Assessment/Plan: Worsening glycemic control due to high-dose of prednisone, now improving will optimize glycemic control with insulin, patient is educated to insulin and prednisone tapering will have close follow-up with ID clinic, endocrinology and pulmonary clinic patient last hemoglobin A1c was 7.6 Code(s): E11.618 - TYPE 2 DIABETES MELLITUS WITH OTHER DIABETIC ARTHROPATHY (5) Hypertension Assessment/Plan: Better control once extra dose is decreased continue current medications. Problems reviewed: Yes Code(s): I10 - ESSENTIAL (PRIMARY) HYPERTENSION (6) Depression Assessment/Plan: Continue all home meds Code(s): F32.9 - MAJOR DEPRESSIVE DISORDER, SINGLE EPISODE, UNSPECIFIED (7) Acute exacerbation of COPD with asthma Assessment/Plan: We will switch to p.o. Prednisone tapering, continue levalbuterol, continue Symbicort and Spiriva Code(s): J44.1 - CHRONIC OBSTRUCTIVE PULMONARY DISEASE W (ACUTE) EXACERBATION; J45.901 - UNSPECIFIED ASTHMA WITH (ACUTE) EXACERBATION
[2019-10-27] MEDS: LEVALBUTEROL HCL 0.63 MG/3 ML VIAL.NEB. IH SCH ×2 (09:48→13:00)
[2019-10-27] MEDS ORDERED: HYDROCHLOROTHIAZIDE 25 MG TABLET (FP) PO SCH (10:00)
--- NOTE | 2019-10-27 11:04 | PN ---
Progress Note (short form) - Note Progress Note: s: no chest pain, palps, dizziness; sob slowly improving Current Medications Generic Name Dose Route Start Last Admin Trade Name Freq PRN Reason Stop Dose Admin Abacavir Sulfate 600 mg 10/17/19 10:00 10/27/19 09:12 Ziagen - PO 600 mg DAILY [facility] Administration Albuterol/Ipratropium 1 amp 10/22/19 12:46 Duoneb - NEB Q6H PRN SHORTNESS OF BREATH Budesonide/Formoterol Fumarate 2 puff 10/26/19 12:15 10/27/19 09:13 Symbicort 160/4.5mcg - IH 2 puff BID [facility] Administration Darunavir 800 mg 10/17/19 10:00 10/27/19 09:12 Prezista - PO 800 mg DAILY [facility] Administration Gabapentin 300 mg 10/17/19 10:00 10/27/19 09:11 Neurontin - PO 300 mg BID [facility] Administration Guaifenesin 10 ml 10/18/19 16:02 10/23/19 09:33 Robitussin - PO 10 ml Q6H PRN Administration COUGH Heparin Sodium (Porcine) 5,000 unit 10/17/19 06:00 10/27/19 06:55 Heparin - SQ Not Given TID [facility] Hydrochlorothiazide 25 mg 10/27/19 10:00 10/27/19 09:11 Hctz - PO 25 mg DAILY [facility] Administration Insulin Aspart 10 units 10/21/19 16:30 10/27/19 06:55 Novolog Vial SQ 10 units ACHS [facility] Administration Insulin Aspart 1 vial 10/26/19 16:30 10/27/19 06:56 Novolog Vial Sliding Scale - SQ 8 unit ACHS [facility] Administration Protocol Insulin Aspart 20 units 10/27/19 07:00 10/27/19 06:56 Novolog Mix 70/30 Vial SQ 20 units BIDAC [facility] Administration Lactobacillus Acidophilus 1 tab 10/17/19 10:00 10/27/19 09:08 Bacid - PO 1 tab DAILY [facility] Administration Lamivudine 300 mg 10/22/19 10:00 10/27/19 09:11 Epivir - PO 300 mg DAILY [facility] Administration Levalbuterol HCl 0.63 mg 10/20/19 22:54 10/27/19 09:48 Xopenex IH 0.63 mg RTID [facility] Administration Losartan Potassium 100 mg 10/23/19 09:27 10/27/19 09:08 Cozaar - PO 100 mg DAILY [facility] Administration Mirtazapine 15 mg 10/17/19 22:00 10/26/19 22:04 Remeron - PO 15 mg HS [facility] Administration Multivitamins 1 each 10/17/19 10:00 10/27/19 09:12 Total B With C - PO 1 each DAILY [facility] Administration Nystatin 500,000 units 10/21/19 18:00 10/27/19 07:01 Nystatin Oral Suspension - PO Not Given Q6HPO [facility] Pantoprazole Sodium 40 mg 10/17/19 10:00 10/27/19 09:12 Protonix - PO 40 mg DAILY [facility] Administration Prednisone 40 mg 10/25/19 13:45 10/27/19 09:10 Deltasone - PO 40 mg BID [facility] Administration Ritonavir 100 mg 10/17/19 10:00 10/27/19 09:11 Norvir - PO 100 mg DAILY [facility] Administration Tiotropium [place] 2 puff 10/25/19 13:00 10/27/19 09:16 Spiriva Respimat IH Not Given DAILY [facility] Trimethoprim/Sulfamethoxazole 1 each 10/17/19 10:00 10/26/19 10:49 Bactrim Ds - PO 1 each MoWeFr@1000 [facility] Administration Valacyclovir HCl 1,000 mg 10/19/19 10:00 10/27/19 09:12 Valtrex - PO 1,000 mg DAILY [facility] Administration Vital Signs Period Temp Pulse Resp BP Sys/[place] Pulse Ox Last 24 Hr 97.4 F-98.2 F 82-114 18-22 111-159/78-84 95 Constitutional: Yes: No Distress, Calm Eyes: Yes: Conjunctiva Clear Respiratory: Yes: Rhonchi, Wheezes Gastrointestinal: Yes: Soft (generally soft, nontender. + bowel sounds.) Cardiovascular: Yes: Regular Rate and Rhythm JVD: No Carotid Bruit: No PMI: Non-Displaced Heart Sounds: Yes: S1, S2 (RRR, no murmurs) Edema: Yes Edema: trace Neurological: Yes: Alert, Oriented CBC, BMP 10/26/19 07:10 10/26/19 07:10 Sinus tach 127bpm, cannot r/o old septal [facility] Echo: Report Reviewed (July 2019: LVH, normla LVEF, no sig valve dz) Ejection Fraction %: LVEF > or = 40 % Imaging - Results X-ray: Image Reviewed Assessment/Plan IMP: Chronic HTN Chronic hypertensive heart disease/LVH/ diastolic dysfx Influenza B triggering AECOPD COPD HIV REC: 1. HTN: chronic, nexacerbated in setting of steroids - cont losartan 100 mg daily - not improving with coreg and as history of COPD with frequent exacerbations, will dc - given she also has intermittent edema on steroids and BP not at goal, dc'd lasix and started hctz - she has home BP cuff being sent - plan to log BPs and bring to office, goal BP <140/90 2. AECOPD triggered by Influenza B: -Rx as per primary team and pulmonary -Steroid taper. -Levalbuterol as needed to minimize tachycardia 3. HIV: -As per primary team 4. Edema: secondary to chronic diastolic dysfx/ hypertensive heart disease -Mild fluid retention possibly due to steroids. -Agree with BNP -Steroid taper -cont hctz cardiac menezes stable
--- NOTE | 2019-10-27 11:08 | PN ---
Progress Note, Physician History of Present Illness: PULMONARY ALERT,FEELING BETTER,SOB IMPROVING,LESS CONGESTION - Current Medication List Current Medications: Active Medications Abacavir Sulfate (Ziagen -) 600 mg PO DAILY [facility] Last Admin: 10/27/19 09:12 Dose: 600 mg Albuterol/Ipratropium (Duoneb -) 1 amp NEB Q6H PRN PRN Reason: SHORTNESS OF BREATH Budesonide/Formoterol Fumarate (Symbicort 160/4.5mcg -) 2 puff IH BID [facility] Last Admin: 10/27/19 09:13 Dose: 2 puff Darunavir (Prezista -) 800 mg PO DAILY [facility] Last Admin: 10/27/19 09:12 Dose: 800 mg Gabapentin (Neurontin -) 300 mg PO BID [facility] Last Admin: 10/27/19 09:11 Dose: 300 mg Guaifenesin (Robitussin -) 10 ml PO Q6H PRN PRN Reason: COUGH Last Admin: 10/23/19 09:33 Dose: 10 ml Heparin Sodium (Porcine) (Heparin -) 5,000 unit SQ TID [facility] Last Admin: 10/27/19 06:55 Dose: Not Given Hydrochlorothiazide (Hctz -) 25 mg PO DAILY [facility] Last Admin: 10/27/19 09:11 Dose: 25 mg Insulin Aspart (Novolog Vial) 10 units SQ [facility] Last Admin: 10/27/19 06:55 Dose: 10 units Insulin Aspart (Novolog Vial Sliding Scale -) 1 vial SQ ACHS [facility]; Protocol Last Admin: 10/27/19 06:56 Dose: 8 unit Insulin Aspart (Novolog Mix 70/30 Vial) 20 units SQ BIDAC [facility] Last Admin: 10/27/19 06:56 Dose: 20 units Lactobacillus Acidophilus (Bacid -) 1 tab PO DAILY [facility] Last Admin: 10/27/19 09:08 Dose: 1 tab Lamivudine (Epivir -) 300 mg PO DAILY [facility] Last Admin: 10/27/19 09:11 Dose: 300 mg Levalbuterol HCl (Xopenex) 0.63 mg IH RTID [facility] Last Admin: 10/27/19 09:48 Dose: 0.63 mg Losartan Potassium (Cozaar -) 100 mg PO DAILY [facility] Last Admin: 10/27/19 09:08 Dose: 100 mg Mirtazapine (Remeron -) 15 mg PO HS [facility] Last Admin: 10/26/19 22:04 Dose: 15 mg Multivitamins (Total B With C -) 1 each PO DAILY [facility] Last Admin: 10/27/19 09:12 Dose: 1 each Nystatin (Nystatin Oral Suspension -) 500,000 units PO Q6HPO [facility] Last Admin: 10/27/19 07:01 Dose: Not Given Pantoprazole Sodium (Protonix -) 40 mg PO DAILY [facility] Last Admin: 10/27/19 09:12 Dose: 40 mg Prednisone (Deltasone -) 40 mg PO BID [facility] Last Admin: 10/27/19 09:10 Dose: 40 mg Ritonavir (Norvir -) 100 mg PO DAILY [facility] Last Admin: 10/27/19 09:11 Dose: 100 mg Tiotropium [place] (Spiriva Respimat) 2 puff IH DAILY [facility] Last Admin: 10/27/19 09:16 Dose: Not Given Trimethoprim/Sulfamethoxazole (Bactrim Ds -) 1 each PO MoWeFr@1000 [facility] Last Admin: 10/26/19 10:49 Dose: 1 each Valacyclovir HCl (Valtrex -) 1,000 mg PO DAILY [facility] Last Admin: 10/27/19 09:12 Dose: 1,000 mg - Objective Vital Signs: Vital Signs Temperature 98 F 10/27/19 10:00 Pulse Rate 118 H 10/27/19 10:00 Respiratory Rate 20 10/27/19 10:00 Blood Pressure 130/90 10/27/19 10:00 O2 Sat by Pulse Oximetry (%) 95 10/26/19 21:00 Constitutional: Yes: Well Nourished, Calm Eyes: Yes: WNL HENT: Yes: WNL Neck: Yes: WNL Cardiovascular: Yes: Regular Rate and Rhythm, S1, S2 Respiratory: Yes: Wheezes (LESS WHEEZES BILATERALLY) Gastrointestinal: Yes: Normal Bowel Sounds, Soft Extremities: Yes: WNL Edema: No Labs: Assessment/Plan Problem List - Problems (1) Influenza B Code(s): J10.1 - FLU DUE TO OTH IDENT INFLUENZA VIRUS W OTH RESP MANIFEST (2) AIDS Code(s): B20 - HUMAN IMMUNODEFICIENCY VIRUS [HIV] DISEASE (3) FELIZ (acute kidney injury) Code(s): N17.9 - ACUTE KIDNEY FAILURE, UNSPECIFIED (4) COPD exacerbation Code(s): J44.1 - CHRONIC OBSTRUCTIVE PULMONARY DISEASE W (ACUTE) EXACERBATION (5) Cough Code(s): R05 - COUGH (6) Diarrhea Code(s): R19.7 - DIARRHEA, UNSPECIFIED Qualifiers: Diarrhea type: unspecified type Qualified Code(s): R19.7 - Diarrhea, unspecified (7) Hypertension Code(s): I10 - ESSENTIAL (PRIMARY) HYPERTENSION (8) COPD (chronic obstructive pulmonary disease) Code(s): J44.9 - CHRONIC OBSTRUCTIVE PULMONARY DISEASE, UNSPECIFIED (9) Peripheral neuropathy Code(s): G62.9 - POLYNEUROPATHY, UNSPECIFIED Assessment/Plan Prednisone 40mg bid taper as outpatient Supplemental O2 as needed inhaled bronchodilators symbicort 160/4.5 bid spriiva 2 inhalations daily VTE prophylaxis DR BELLA
--- NOTE | 2019-10-27 13:25 | DS ---
Physical Exam: SUBJECTIVE: Patient seen and examined at bed side , breathing improved , stable to dc home with insulin and bp meds and prednisone taper OBJECTIVE: Vital Signs Period Temp Pulse Resp BP Sys/Inman Pulse Ox Last 24 Hr 97.4 F-98.2 F 82-118 18-22 130-159/78-90 94-95 PHYSICAL EXAM GENERAL:AAO3 , IN NAD HEAD: NC/At EYES: PERRL, extraocular movements intact, ENT: Ears normal, nares patent, oropharynx clear without exudates, moist mucous membranes. NECK: supple. LUNGS: Breath sounds equal, clear to auscultation bilaterally, some wheezes at the bases , no crackles, no accessory muscle use. HEART: sinus tachy , S1, S2 without murmur, rub or gallop. ABDOMEN: obese,Soft, nontender, nondistended, normoactive bowel sounds, EXTREMITIES: 2+ pulses, warm, well-perfused, no edema. NEUROLOGICAL: no focal deficit LABS Laboratory Results - last 24 hr 10/25/19 10/26/19 10/26/19 06:05 15:51 21:54 POC Glucometer 149 320 Cortisol AM Sample 7.5 10/27/19 10/27/19 06:54 11:52 POC Glucometer 341 437 Cortisol AM Sample HOSPITAL COURSE: Date of Admission:10/16/19 Date of Discharge: 10/27/19 Uzma Monroe is a 64 year old female with a past medical history of HIV ( CD4 104, viral load 70), HTN, HLD, COPD, GERD admitted for COPD exacerbation secondary to influenza B. # sepsis 2/2 influneza B + , improved * ccpleted ghada flue * cont abx prophylaxis Bactirim for 30 days more # Acute COPD Exacerbation 2/2 Influenza B+ * dc droplet isolation * Tamiflue renal dose , completed * duoneb and labuterol , spiriva and symbicort on DC * pulmonary consulted increase steroids Sulomedrol to 40 Q 6 hr , switch to PO prednisone 40 BID taper to 30 BID for 3 days and then 20 BID for 3 days and then 20 daily for 3 days and then 10 daily for 3 days * Spiriva and symbicort * azithromycin 500mg once and continue azithromycin 250mg daily, completed * PPI as on steroids # type 2 DM , newy diagnosed * exacerbated by steroids use started on ISS and novolog 20 BID and novolog 70 /30 10 ACHS units * A1c 7.8 * endo consulted Dr darling , follow up out pt with dr Guzmán or mumtaz #HIV * continue home medications * Bactrim DS MWF * ID consulted # oral thrush due to steroids vs HIV start Nystatin , resolved #FELIZ, resolved , likely pre renal * CRE 1.5 (baseline 0.9-1.2) # cough start Robutossin # Hoarsness in her voice due to flue , cont treatment #HTN * increase losartan to 100 mg daily [id number] daily b #GERD * cont Protonix # weight gain , pt reports she gain 100 pound during last year she needs to follow up with endocrinology as out pt.R.O curtis syndrome , morning cortisol am normal. #DVT PPx * heparin 5000 units subq tid # Sinys tachy cardia due to flue vs albuterol SE started on BB # euthyrid sick syndrome TSH low will repeat as out pt after acute phase * Ft3 , Ft4 noted repeat as out pt * follow up wit us and endocrinology as out pt # UTI : no signs UTI negative UA, 30k colony count - no need to treat per ID dc in [facility] with close follow up with pulmonary fr PFT and sleep study endocrinology for TFt and DM , cardiology and PMD for hTN, diet eduation and DM edcation with VNS Minutes to complete discharge: 50 Discharge Summary Problems reviewed: Yes Reason For Visit: INFLUENZA DUE TO INFLUENZA VIRUS TYPE B Current Active Problems Thyroid function study abnormality (Acute) COPD (chronic obstructive pulmonary disease) (Chronic) HIV (human immunodeficiency virus infection) (Chronic) Murmur, cardiac (Chronic) Type 2 diabetes mellitus with other diabetic arthropathy (Chronic) Condition: Improved - Instructions Diet, Activity, Other Instructions: you presented to the hospital due to difficutly breathing due to copd and your were found to have influenza B positive , you completed course of tamiflue and antibiotics and your symkptoms has improved You blood sugar was also elevated due to steroids use and you will be send home with Insulin regime please measure your blood sugar in the morning and before each meal and bring records to you primary and endocrinology Ehcedcs97/30 20 units twice daily Novolog 70/30 10 units before each meals and insulin sliding scale as following you blood pressure also was high during hospitalization your losartan increased to 100 mg daily you started on water bill called hydrochlorthiazide 25 mg daily please take it as prescribed please measure your blood pressure daily and bring records to your primary and cardiology visit \ please take prednisone taper as following 40 mg twice daily for 1 more day 30 mg twice daily for 3 20 mg days Twice daily for 3 days 20 mg daily for 3 days 10 mg daily for 3 days Please resume other home meds as before admission your thyroid function was abnormal during hospitalization you need to repeat the thyroids level as out patient after 4 weeks from discharged Please follow up with the following doctors: your primary care physician within one week Dr ivey infectious disease doctor within one week Dr Crouch Pulmonary doctor within [address] Arielle quiñones per your request as endocrinology for diabetes and thyroid and weight gain Dr Tellez cardiology for blood pressure if you develop fever , chills , chest pain , shortness of breath , please return to emergency room Referrals: Vikram Crouch MD [Staff Physician] - 1 Week Francy Bravo MD [Primary Care Provider] - 1 Week Jamila Ivey MD [Staff Physician] - 1 Week Nell Tellez MD [Staff Physician] - 1 Week Clarke Guzmán MD [Staff Physician] - 1 Week Disposition: VNS/HOME HEALTH CARE - Home Medications Comprehensive Discharge Medication List: Ambulatory Orders Lactobacillus Acidophilus [Bacid -] 1 tab PO DAILY 28 Days #28 tab 10/04/18 Albuterol Sulfate Inhaler - [Ventolin HFA Inhaler -] 1 - 2 inh PO Q4H PRN #1 inhaler 04/02/19 Levalbuterol Tartrate [Levalbuterol Tartrate Hfa] 15 gm IH QID #1 inhaler Tiotropium [place] [Spiriva Respimat] 4 gm IH DAILY #1 mist.inhal 08/18/19 Valacyclovir HCl [Valtrex -] 1,000 mg PO BID #28 tablet 08/23/19 Abacavir Sulfate/Lamivudine [Abacavir-Lamivudine 600-300 mg] 1 each PO DAILY # 30 tablet 09/06/19 Darunavir Ethanolate [Prezista -] 800 mg PO DAILY #30 tablet 09/06/19 Ritonavir 100 mg PO DAILY #30 tablet 09/06/19 Ergocalciferol (Vitamin D2) [Vitamin D2] 50,000 unit PO WEEKLY #4 capsule Mirtazapine 15 mg PO HS #30 tablet 09/29/19 Vitamin B Complex [B Complex] 1 each PO DAILY #30 tablet 09/29/19 Zolpidem Tartrate [Ambien] 5 mg PO HS PRN #15 tablet MDD 1 09/29/19 Diclofenac Sodium [Voltaren] 100 gm TP BID #1 gel..gram. 10/06/19 Gabapentin 300 mg PO BID #60 capsule 10/06/19 Methocarbamol [Robaxin -] 500 mg PO BID PRN #15 tablet 10/13/19 Oxycodone HCl/Acetaminophen [Endocet 5-325 Tablet] 1 each PO TID PRN #20 tablet MDD 3 10/13/19 Budesonide/Formeterol Fumarate [SYMBICORT 160/4.5mcg -] 2 puff IH BID 30 Days # 1 inhaler 10/27/19 Guaifenesin [Robitussin -] 10 ml PO Q6H PRN #1 cup 10/27/19 Hydrochlorothiazide [Hctz -] 25 mg PO DAILY #30 tablet 10/27/19 Insulin (Novolog 70/30) [Novolog Mix 70/30 Vial -] 20 units SQ BIDAC 30 Days #2 units 10/27/19 Insulin (Novolog) [Novolog -] 10 units SQ ACHS 30 Days #2 units 10/27/19 Insulin Sliding Scale [Novolog Vial Sliding Scale -] 1 vial SQ ACHS 30 Days #1 units 10/27/19 Losartan Potassium [Cozaar -] 100 mg PO DAILY #60 tablet 10/27/19 Miscellaneous Medical Supply [Glucometer Device] 1 each SQ ASDIR #1 kit Miscellaneous Medical Supply [Glucometer Test Strips #100] 1 each SQ ASDIR #1 box 10/27/19 Miscellaneous Medical Supply [Lancets] 1 each SQ ASDIR #1 box 10/27/19 Nystatin Oral Suspension - [Nystatin Oral Susp 394048 Units/5 ML -] 500,000 units PO Q6HPO 30 Days #1 cup 10/27/19 Pantoprazole Sodium [Protonix -] 40 mg PO DAILY #30 tablet.ec 10/27/19 Sulfamethoxazole/Trimethoprim [Bactrim DS -] 1 each PO MoWeFr@1000 #30 tablet predniSONE [Deltasone -] 10 mg PO ASDIR #18 tab 10/27/19 predniSONE [Deltasone -] 10 mg PO ASDIR #29 tab 10/27/19 This patient is new to me today: No Emergency Visit: Yes ED Registration Date: 10/16/19 Care time: The patient presented to the Emergency Department on the above date and was hospitalized for further evaluation of their emergent condition. Critical Care patient: No - Discharge Referral Referred to [facility] Med P.C.: No ATTENDING PHYSICIAN STATEMENT I saw and evaluated the patient. I reviewed the resident's note and discussed the case with the resident. I agree with the resident's findings and plan as documented. SUBJECTIVE: OBJECTIVE: ASSESSMENT AND PLAN:
[2019-10-27 15:01] VITALS: BP 143/83; PULSE 110; TEMP 98
== END 2019-10-27 15:49 | disposition home health service (06) | DRG 975 ==
LOC: JER 17:13 → JERBED 22:25 → J4S 10-17 20:12
PROVIDERS: ADMIT Internal Medicine; ATTEND Internal Medicine
PROC: 8E0ZXY6 Isolation (ICD-10-PCS; principal; 2019-10-16)
DX: A41.9 Sepsis, unspecified organism (principal); B20 Human immunodeficiency virus [HIV] disease; N17.9 Acute kidney failure, unspecified; J44.1 Chronic obstructive pulmonary disease with (acute) exacerbation; B37.0 Candidal stomatitis; J45.901 Unspecified asthma with (acute) exacerbation; I50.30 Unspecified diastolic (congestive) heart failure; B00.9 Herpesviral infection, unspecified; J10.1 Influenza due to other identified influenza virus with other respiratory manifestations; E87.6 Hypokalemia; E11.65 Type 2 diabetes mellitus with hyperglycemia; E78.5 Hyperlipidemia, unspecified; R19.7 Diarrhea, unspecified; E66.01 Morbid (severe) obesity due to excess calories; Z88.0 Allergy status to penicillin; K21.9 Gastro-esophageal reflux disease without esophagitis; I11.0 Hypertensive heart disease with heart failure; Z68.27 Body mass index [BMI] 27.0-27.9, adult; F32.9 Major depressive disorder, single episode, unspecified; G62.9 Polyneuropathy, unspecified
CPT/HCPCS: 36415; 71045-TC-FY; 80048; 80053; 80307; 81003; 82436; 82533; 82565; 82728; 82803; 82962; 83036; 83540; 83550; 83605; 83735; 83880; 84133; 84300; 84439; 84443; 84480; 84481; 84484; 85025; 85610; 85730; 87040; 87086; 87186; 87328; 87329; 87804; 93005; 93010; 93306-TC; 94640; 97116-GP; 97161-GP; 99285-25; G0463-25; J0131; J1100; J1644; J7030

== ENCOUNTER 2020-04-05 14:26 | Inpatient (IN) | payer OTHER ==
--- NOTE | 2020-04-05 14:45 | PDOC ---
History of Present Illness - General Chief Complaint: Respiratory Stated Complaint: CHILLS/FEVER History Source: Patient Exam Limitations: No Limitations - History of Present Illness Initial Comments: 04/05/20 14:51 64yo F with PMHx of HIV (last CD4 count 254 on 02/14/20, adherent on HAART), HTN, HLD, DM w 1wk fevers (max 102), chills, generalized fatigue, poor PO appetite and 1d diarrhea. No known covid exposure. Denies cough, n/v, chest/ABD pain, dysuria. Past History - Medical History Allergies/Adverse Reactions: Allergies Allergy/AdvReac Type Severity Reaction Status Date / Time Penicillins Allergy Severe Swelling Verified 04/05/20 14:43 [place] AdvReac Uncoded 04/05/20 14:43 Home Medications: Ambulatory Orders Umeclidinium [place] [Incruse Ellipta] 62.5 mcg IH DAILY 01/03/20 Pyridoxine HCl (B-6) [Vitamin B6 -] 25 mg PO BID #56 tablet 01/06/20 Diclofenac Sodium [Voltaren] 100 gm TP TID PRN 01/12/20 Ergocalciferol (Vitamin D2) [Vitamin D2] 2,000 unit PO DAILY #30 tablet 01/12/20 Methocarbamol [Robaxin -] 500 mg PO BID PRN #60 tablet 01/12/20 Vitamin B Complex [B Complex] 1 each PO DAILY #30 tablet 02/14/20 Oxycodone HCl/Acetaminophen [Endocet 5-325 Tablet] 1 each PO BID PRN #60 tablet MDD 2 03/13/20 Abacavir Sulfate/Lamivudine [Abacavir-Lamivudine 600-300 mg] 1 each PO DAILY #30 tablet 03/29/20 Bupropion HCl [Bupropion HCl ER] 200 mg PO AM #30 tab.er.12h 03/29/20 Darunavir Ethanolate [Prezista -] 800 mg PO DAILY #30 tablet 03/29/20 Gabapentin [Neurontin -] 300 mg PO Q12H #60 cap 03/29/20 Ritonavir [Norvir -] 100 mg PO DAILY #30 tab 03/29/20 Valacyclovir HCl [Valtrex -] 500 mg PO BID #60 tablet 03/29/20 Zolpidem Tartrate [Ambien] 10 mg PO HS #30 tablet MDD 1 03/29/20 Anemia: Yes Asthma: Yes Cancer: No Cardiac Disorders: No CVA: No COPD: No CHF: No DVT: No Dementia: No Diabetes: No GI Disorders: Yes (GERD, Anorexia) Disorders: No (H/o abnormal PAP Smear) HTN: No Hypercholesterolemia: No Liver Disease: Yes (Fatty Liver Disease) Psychiatric Problems: Yes (Anxiety, Depression, Insomnia) Seizures: No - Surgical History Abdominal Surgery: Yes (EXPLORATORY) - Immunization History Immunization Up to Date: Yes - Psycho-Social/Smoking History Smoking Status: No Smoking History: Unknown if ever smoked Have you smoked in the past 12 months: Yes Number of Cigarettes Smoked Daily: 0 If you are a former smoker, when did you quit?: 10 months ago Cigars Per Day: 0 'Breaking Loose' booklet given: 12/29/19 Review of Systems - Review of Systems Constitutional: Yes: Chills, Fever HEENTM: No: Eye Pain, Nose Congestion Respiratory: Yes: Cough. No: Shortness of Breath Cardiac (ROS): No: Chest Pain, Palpitations ABD/GI: Yes: Diarrhea. No: Constipated, Nausea, Vomiting : No: Burning, Dysuria Musculoskeletal: No: Back Pain, Joint Pain Integumentary: No: Bruising, Flushing Neurological: No: Headache, Seizure Psychiatric: No: Anxiety, Depression Endocrine: No: Intolerance to Cold, Intolerance to Heat Hematologic/Lymphatic: No: Anemia, Blood Clots *Physical Exam - Vital Signs Last Vital Signs Temp Pulse Resp BP Pulse Ox 100.7 F H 101 H 18 96/63 92 L 04/05/20 14:37 04/05/20 14:37 04/05/20 14:37 04/05/20 14:37 04/05/20 14:37 - Physical Exam General Appearance: Yes: Nourished, Appropriately Dressed, Mild Distress HEENT: positive: EOMI, JOHNNA, Normal Voice, Hearing Grossly Normal. negative: Scleral Icterus (R), Scleral Icterus (L) Respiratory/Chest: positive: Normal Breath Sounds, Crackles (mitzy bases). negative: Chest Tender, Respiratory Distress, Rhonchi, Stridor, Wheezing Cardiovascular: positive: Regular Rhythm, S1, S2, Tachycardia. negative: Murmur Gastrointestinal/Abdominal: positive: Normal Bowel Sounds, Flat, Soft. negative: Tender, Organomegaly Extremity: positive: Delayed Capillary Refill Integumentary: positive: Normal Color, Dry, Warm Neurologic: positive: Fully Oriented, Alert, Normal Mood/Affect, Normal Response, Responsive ED Treatment Course - LABORATORY CBC & Chemistry Diagram: 04/05/20 14:47 04/05/20 14:47 Medical Decision Making - Medical Decision Making 04/05/20 15:05 EKG - sinus rhythm w PAC, RBBB, HR 99, QTc 546, no ST changes CXR - no acute pathology WBC 3.1 (wnl), Cr 1.6 --- 64yo F with PMHx of HIV (last CD4 count 254 on 02/14/20, adherent on HAART), HTN, HLD, DM w 1wk fevers (max 102), chills, generalized fatigue, poor PO appetite and 1d diarrhea. Sepsis likely d/t covid PNA (crackles lungs, leukopenic). Also has FELIZ Cr 1.6 (from 0.8) Given 30mL/kg NS, vanc, meropenem, tylenol Admit m/s acute respiratory failure requiring O2, suspected covid, FELIZ - pending UA PCP [facility]ly [facility] Discharge - Discharge Information Problems reviewed: Yes Clinical Impression/Diagnosis: Suspected COVID-19 virus infection, FELIZ (acute kidney injury) Acute respiratory failure Qualifiers: Respiratory failure complication: hypoxia Qualified Code(s): J96.01 - Acute respiratory failure with hypoxia Condition: Improved - Follow up/Referral - Patient Discharge Instructions - Post Discharge Activity
[2020-04-05] MEDS ORDERED: SODIUM CHLORIDE 2,177 ML IV ONE (15:00)
[2020-04-05] MEDS ORDERED: VANCOMYCIN 1 GM in D5W (PRE-DOCKED) 1,000 MG/250 ML IVPB ONE (15:02)
[2020-04-05] MEDS ORDERED: MEROPENEM 1 GM in DEXTROSE 5%-WATER 100 ML IVPB ONE (15:02)
[2020-04-05] MEDS ORDERED: ACETAMINOPHEN 1000 MG/100 ML VIAL (NON FORMULARY) IVPB ONE (15:06)
[2020-04-05] MEDS ORDERED: ACETAMINOPHEN INJECTION 100 ML IVPB ONE (15:09)
[2020-04-05] MEDS ORDERED: MEROPENEM 1 GM VIAL (RESTRICTED TO ID) IVPB ONE (15:09)
[2020-04-05] MEDS ORDERED: VANCOMYCIN 1 GRAM (PRE-DOCKED) 1,000 MG/250 ML BAG IVPB ONE (15:10)
[2020-04-05 15:40] LABS: BASO % 0.9 % (0-2.0); EOS % 0.1 % (0-4.5); HEMATOCRIT 39.8 % (32.4-45.2); HEMOGLOBIN 12.7 GM/dL (10.7-15.3); LYMPH % 37.9 % (8-40); MCH 26.8 pg (25.7-33.7); MCHC 31.9 g/dl (32.0-36.0); MEAN PLT VOLUME 8.8 fl (7.5-11.1); MONO % 13.6 % (3.8-10.2); NEUT % 47.5 % (42.8-82.8); PLATELET COUNT 201 K/MM3 (134-434); RBC 4.74 M/mm3 (3.60-5.2); RDW 14.4 % (11.6-15.6); WHITE BLOOD COUNT 3.2 K/mm3 (4.0-10.0)
[2020-04-05 15:46] LABS: INR 1.13 (0.83-1.09); PROTHROMBIN TIME (PATIENT) 13.4 SEC (9.7-13.0)
[2020-04-05 15:49] LABS: ACTIVATED PTT 36.1 SECONDS (25.2-36.5)
[2020-04-05 16:20] LABS: ALBUMIN 3.5 g/dl (3.4-5.0); ALK PHOS 79 U/L (45-117); ANION GAP 9 MMOL/L (8-16); BILIRUBIN,TOTAL 0.6 mg/dL (0.2-1); BLOOD UREA NITROGEN 13.8 mg/dL (7-18); CALCIUM 8.3 mg/dL (8.5-10.1); CHLORIDE 98 mmol/L (98-107); CO2 24 mmol/L (21-32); CREATININE 1.6 mg/dL (0.55-1.3); GLUCOSE,RANDOM 78 mg/dL (74-106); LDH 548 U/L (84-246); POTASSIUM 4.2 mmol/L (3.5-5.1); SGOT/AST 79 U/L (15-37); SGPT/ALT 28 U/L (13-61); SODIUM 131 mmol/L (136-145); TOT PROT 8.7 g/dl (6.4-8.2)
[2020-04-05 16:23] LABS: ERYTHROCYTE SEDIMENTATION RATE 81 mm/hr (0-30)
--- NOTE | 2020-04-05 17:52 | PN ---
Teaching Attending Note Name of Resident: Shanice Gao ATTENDING PHYSICIAN STATEMENT I saw and evaluated the patient. I reviewed the resident's note and discussed the case with the resident. I agree with the resident's findings and plan as documented. HPI 61-year-old female with past medical history of HIV CD4 counts 254 adherent on HAART, HTN, HLD, DM who presents to the ED for evaluation of fevers, chills, myalgias, fatigue for the last week. Patient states she started having fevers this weekend. Fevers have been as high as 102.6. She also reports decreased appetite that is chronic but has been worse in the last few days. This morning she began having diarrhea, multiple episodes that were watery and associated with incontinence. The patient has been isolating at home but does have a daughter in her 20s who goes out to work regularly. In the ED, patient noted to have fever of 100.7 with a pulse of 101 and O2 saturation of 92% on room air which improved 100% on 2 L. Labs significant for white count of 3.2, ESR of 81, ferritin of 808, LDH 547, all of which have been at similar levels on previous admissions. Patient also had creatinine of 1.6. Chest x-ray was clear. Patient admitted for rule out COVID and severe sepsis with FELIZ. OBJECTIVE: Last Vital Signs Temp Pulse Resp BP Pulse Ox 100.7 F H 101 H 18 96/63 100 04/05/20 14:37 04/05/20 14:37 04/05/20 14:37 04/05/20 14:37 04/05/20 14:40 PE: Per resident note Labs/Imaging: reviewed ASSESSMENT AND PLAN: 61-year-old female with past medical history of HIV CD4 counts 254 adherent on HAART, HTN, HLD, DM who presents to the ED for evaluation of fevers, chills, myalgias, fatigue for the last week. Patient admitted for rule out COVID and severe sepsis with FELIZ. #Fevers, chills, myalgias, diarrhea, hypoxia Symptoms and labs are consistent with COVID, however, inflammatory markers have been similarly elevated multiple times this year for this patient. Follow-up d-dimer Follow-up COVID tests Hold anticoagulation and steroids for now pending test results Vanco meropenem given in ED Dr. Ivey notified: We will see patient tomorrow Continue meropenem for now Follow-up UA, urine culture, C. difficile, stool studies Oxygen #HIV Continue home HAART Continue valacyclovir ID consulted
--- NOTE | 2020-04-05 18:37 | PDOC ---
Documentation entered by Scott Washington SCRIBE, acting as scribe for Bella Ybarra MD. Bella Ybarra MD: This documentation has been prepared by the zaida, Scott Washington SCRIBE, under my direction and personally reviewed by me in its entirety. I confirm that the documentation accurately reflects all work, treatment, procedures, and medical decision making performed by me. Attending Attestation - Resident Resident Name: Leonardo Kim - ED Attending Attestation I have performed the following: I have examined & evaluated the patient, The case was reviewed & discussed with the resident, I agree w/resident's findings & plan, Exceptions are as noted - HPI HPI: 04/05/20 16:33 The patient is a 64 year old female with a significant past medical history of HIV ( CD4 count 254 on 02/14/20, adherent on HAART), HTN, HLD, and DM who presents to the ED for evaluation of fever that began one week ago (Tmax:102). She endorses chills, fatigue, and decreased appetite associated with these fevers. The patient also notes diarrhea that began yesterday. The patient denies chest/abdominal pain and shortness of breath. Denies nausea, vomiting and/or any GI symptoms. Denies any symptoms. Denies any other sympto ms. Allergies: penicillins, mayonnaise - Physicial Exam PE: 04/05/20 15:08 Agree with resident exam - Medical Decision Making 04/05/20 16:45 64 year old female with a significant past medical history of HIV (CD4 count 254), HTN, HLD, and DM who presents to the ED for evaluation of fever, chills, fatigue, and decreased appetite, and diarrhea. On arrival to the ED, pt is febrile, hypoxic and tachycardic Sepsis w/u initiated CXR read as clear but pt with crackles on exam, also hypoxic requiring 3L NC concerning for PNA vs COVID Pt covered empirically with vanc/lorraine Pt admitted to hospitalist for further mgmt Case discussed in detail with admitting physician including history, physical exam and ancillary studies. Admitting physician has assumed care for the patient, will follow all pending diagnostics and will complete the evaluation and treatment. Discharge - Discharge Information Problems reviewed: Yes Clinical Impression/Diagnosis: Suspected COVID-19 virus infection, FELIZ (acute kidney injury) Acute respiratory failure Qualifiers: Respiratory failure complication: hypoxia Qualified Code(s): J96.01 - Acute respiratory failure with hypoxia Condition: Improved - Follow up/Referral - Patient Discharge Instructions - Post Discharge Activity
[2020-04-05] MEDS ORDERED: DEXAMETHASONE SOD PHOSPHATE 4 MG/1 ML VIAL IM ONE (18:52)
--- NOTE | 2020-04-05 19:07 | HP ---
CHIEF COMPLAINT: fever, chills, fatigue, diarrhea PCP: Dr. Baker- [facility] Dr. Tellez- hydrogen treater Dr. Crouch- pulmnologist HISTORY OF PRESENT ILLNESS: Pt is 64 YO F PMH HTN, DM, HIV (CD4 count 254 on 02/14/20, adherent on HAART) p/w a productive cough beginning 2 weeks ago with yellow sputum; denies blood. The cough has since improved, but then had one week of chills and objective fever (102.7 Fever at home). This morning, the pt had 4 watery, non-bloody BM and was incontinent. Pt endorses chronic loss of appetite with an unintentional loss of 40 lbs within 3 months. However, her appetite has been worse this past week. Denies sick contacts. Denies recent travel, and denies recent travel for the daughter, whom she lives with. The daughter goes out to work though. Reported her symptoms to her physician, Dr. Ivey, who told her to go the ED for her worsening symptoms. Pt had Past admissions for similar symptoms this year for diarrhea, fever, fatigue, generalized. Last colonoscopy was 12-13 yrs ago ER course was notable for: (1) Tmax 100.7F, BP 96/63, PUlse of 101, 92% O2 on admission, but 100% on 2 L NC (2) CRP, ferritin, LDH, ESR elevated (3) Na+ 131, WBC 3.2, AST 79 (4) s/p Vanc, meropenem, 2 L NS, ofirmev (5) CXR: no acute process Recent Travel: denies PAST MEDICAL HISTORY: HTN, HLD, DM, HIV, COPD PAST SURGICAL HISTORY: tonsillectomy, 1 Social History: Smokin cigarettes/day for 50 yrs Alcohol: denies Drugs: denies Allergies Penicillins Allergy (Severe, Verified 04/05/20 14:43) Swelling MAYONAISE Adverse Reaction (Uncoded 04/05/20 14:43) HOME MEDICATIONS: Home Medications Medication Instructions Recorded Umeclidinium [place] [Incruse 62.5 mcg IH DAILY 01/03/20 Ellipta] Pyridoxine HCl (B-6) [Vitamin B6 -] 25 mg PO BID #56 tablet 01/06/20 Diclofenac Sodium [Voltaren] 100 gm TP TID PRN 01/12/20 Ergocalciferol (Vitamin D2) 2,000 unit PO DAILY #30 tablet 01/12/20 [Vitamin D2] Methocarbamol [Robaxin -] 500 mg PO BID PRN #60 tablet 01/12/20 Vitamin B Complex [B Complex] 1 each PO DAILY #30 tablet 02/14/20 Oxycodone HCl/Acetaminophen 1 each PO BID PRN #60 tablet MDD 2 03/13/20 [Endocet 5-325 Tablet] Abacavir Sulfate/Lamivudine 1 each PO DAILY #30 tablet 03/29/20 [Abacavir-Lamivudine 600-300 mg] Bupropion HCl [Bupropion HCl ER] 200 mg PO AM #30 tab.er.12h 03/29/20 Darunavir Ethanolate [Prezista -] 800 mg PO DAILY #30 tablet 03/29/20 Gabapentin [Neurontin -] 300 mg PO Q12H #60 cap 03/29/20 Ritonavir [Norvir -] 100 mg PO DAILY #30 tab 03/29/20 Valacyclovir HCl [Valtrex -] 500 mg PO BID #60 tablet 03/29/20 Zolpidem Tartrate [Ambien] 10 mg PO HS #30 tablet MDD 1 03/29/20 REVIEW OF SYSTEMS CONSTITUTIONAL: loss of appetite, endorses unintentional loss of 40 lbs within 3 months, fever, chills Absent: diaphoresis, generalized weakness, malaise, HEENT: Absent: rhinorrhea, nasal congestion, throat pain, throat swelling, difficulty swallowing, mouth swelling, ear pain, eye pain, visual changes CARDIOVASCULAR: Absent: chest pain, syncope, palpitations, irregular heart rate, lightheadedness, peripheral edema RESPIRATORY: Absent: cough, shortness of breath, dyspnea with exertion, orthopnea, wheezing, stridor, hemoptysis GASTROINTESTINAL:diarrhea Absent: abdominal pain, abdominal distension, nausea, vomiting, constipation, melena, hematochezia GENITOURINARY: Absent: dysuria, frequency, urgency, hesitancy, hematuria, flank pain, genital pain MUSCULOSKELETAL: Absent: myalgia, arthralgia, joint swelling, back pain, neck pain SKIN: Absent: rash, itching, pallor HEMATOLOGIC/IMMUNOLOGIC: Absent: easy bleeding, easy bruising, lymphadenopathy, frequent infections ENDOCRINE: Absent: unexplained weight gain, unexplained weight loss, heat intolerance, cold intolerance NEUROLOGIC: Absent: headache, focal weakness or paresthesias, dizziness, unsteady gait, seizure, mental status changes, bladder incontinence PSYCHIATRIC: Absent: anxiety, depression, suicidal or homicidal ideation, hallucinations. PHYSICAL EXAMINATION Vital Signs - 24 hr 04/05/20 04/05/20 14:37 14:40 Temperature 100.7 F H Pulse Rate 101 H Respiratory 18 Rate Blood Pressure 96/63 O2 Sat by Pulse 92 L 100 Oximetry (%) GENERAL: Awake, alert, and fully oriented, pt was upset to be in the hospital again for symptoms similar to her previous admissions this year HEAD: Normal with no signs of trauma. EYES: Pupils equal, round and reactive to light, extraocular movements intact, No lid lag. EARS, NOSE, THROAT: Ears normal, nares patent, oropharynx clear without exudates. Moist mucous membranes. LUNGS: wheezing diffusely b/l. crackles on L lower lung base. No accessory muscle use. HEART: Regular rate and rhythm, normal S1 and S2 without murmur, rub or gallop. ABDOMEN: Soft, nontender, not distended, normoactive bowel sounds, MUSCULOSKELETAL: Normal range of motion at all joints. No bony deformities or tenderness. No CVA tenderness. UPPER EXTREMITIES: 2+ pulses, warm, well-perfused. No cyanosis. No clubbing. No peripheral edema. LOWER EXTREMITIES: 2+ pulses, warm, well-perfused. No calf tenderness. No peripheral edema. NEUROLOGICAL: Cranial nerves II-XII intact. Normal speech. strength 5/5 b/l UE & LE. Decreased sensation to palpation on Plantar and dorsal aspect of feet. PSYCHIATRIC: Cooperative. Good eye contact. Appropriate mood and affect. Laboratory Results - last 24 hr 04/05/20 04/05/20 04/05/20 14:47 14:47 14:47 WBC 3.2 L RBC 4.74 Hgb 12.7 Hct 39.8 MCV 84.0 MCH 26.8 MCHC 31.9 L RDW 14.4 D Plt Count 201 D MPV 8.8 Absolute Neuts (auto) 1.5 Neutrophils % 47.5 Lymphocytes % 37.9 Monocytes % 13.6 H Eosinophils % 0.1 D Basophils % 0.9 Nucleated RBC % 0 ESR 81 H PT with INR 13.40 H INR 1.13 H PTT (Actin FS) 36.1 Sodium 131 L Potassium 4.2 Chloride 98 Carbon Dioxide 24 Anion Gap 9 BUN 13.8 Creatinine 1.6 H Est GFR (CKD-EPI)AfAm 39.34 Est GFR (CKD-EPI)NonAf 33.94 Random Glucose 78 Lactic Acid Calcium 8.3 L Ferritin 808.5 H Total Bilirubin 0.6 AST 79 H ALT 28 Alkaline Phosphatase 79 LD Total 548 H Troponin I < 0.02 C-Reactive Protein 1.7 H Total Protein 8.7 H Albumin 3.5 04/05/20 14:47 WBC RBC Hgb Hct MCV MCH MCHC RDW Plt Count MPV Absolute Neuts (auto) Neutrophils % Lymphocytes % Monocytes % Eosinophils % Basophils % Nucleated RBC % ESR PT with INR INR PTT (Actin FS) Sodium Potassium Chloride Carbon Dioxide Anion Gap BUN Creatinine Est GFR (CKD-EPI)AfAm Est GFR (CKD-EPI)NonAf Random Glucose Lactic Acid 1.1 Calcium Ferritin Total Bilirubin AST ALT Alkaline Phosphatase LD Total Troponin I C-Reactive Protein Total Protein Albumin CT Chest w/o contrast: trace b/l pleural effusions associated w/ mild bibasilar compressive atelectasis. Mild b/l apical parenchymal scarring unchanged from CT in 01/17/2020 and 07/26/2019. Mild b/l upper lobe centrilobular emphysema seen again. CTAP w/o contrast: similar to CT exam of 12/30/19. Mildly increased fluid within the colon and several mild to distal small bowel loops. Mild colonic diverticulosis. Diffuse fatty infiltration of the liver with resultant hepatomegaly ASSESSMENT/PLAN: Pt is 64 YO F PMH HTN, DM, HIV (CD4 count 254 on 02/14/20, adherent on HAART) p/w fever, chills, generalized weakness, diarrhea. #Sepsis 2/2 unknown etiology -f/u COVID -f/u blood cx -f/u UA -legionella antigen ordered -ordered sputum cx -ID C/s for Dr. Ievy -Chest CT w/o contrast & CTAP w/o contrast ordered -c/w meropenem (renally dosed) -D dimer ordered -6 mg IV ONCE dexamethasone for COPD and/or COVID 19 (audible wheezing on exam) -stool cx, c diff, stool wbc count ordered no IVF. avoid capillary leak syndrome associated with COVID #Acute hypoxic respiratory failure -supplemental O2 -ABG #DM Hgb 7.8 ISS BGM #HIV #COPD #HTN #DVT PPX 30 mg SQ DAILY #FEN -no IVF. avoid capillary leak syndrome associated with COVID -monitor lytes -soft diet #DISPO ED Visit type - Emergency Visit Emergency Visit: Yes ED Registration Date: 04/05/20 Care time: The patient presented to the Emergency Department on the above date and was hospitalized for further evaluation of their emergent condition. - New Patient This patient is new to me today: Yes Date on this admission: 04/05/20 - Critical Care Critical Care patient: No ATTENDING PHYSICIAN STATEMENT I saw and evaluated the patient. I reviewed the resident's note and discussed the case with the resident. I agree with the resident's findings and plan as documented. SUBJECTIVE: OBJECTIVE: ASSESSMENT AND PLAN:
[2020-04-05 19:19] LABS: ARTERIAL BLD GAS O2 SATURATION 57.7 mmHg (95-98); ARTERIAL BLOOD GAS BASE EXCESS -3.6 mmol/L (-2-2)
[2020-04-05 19:21] LABS: ARTERIAL BLOOD GAS PO2 32.3 mmHg (80-100)
[2020-04-05] MEDS ORDERED: DEXAMETHASONE SOD PHOSPHATE 10 MG/1 ML VIAL ONE (20:25)
[2020-04-05] MEDS: INSULIN SLIDING SCALE (NOVOLOG) 1 VIAL SQ SCH (22:46)
[2020-04-06] MEDS: ALBUTEROL SO4 HFA INHALER IH SCH ×4 (00:30→18:27)
[2020-04-06] MEDS ORDERED: MEROPENEM 1 GM VIAL (RESTRICTED TO ID) IVPB ONE ×2 (02:06→11:34)
[2020-04-06] MEDS ORDERED: DEXTROSE 5%-WATER 100 ML IVPB ONE ×2 (02:06→11:34)
[2020-04-06] MEDS: MEROPENEM 1 GM in DEXTROSE 5%-WATER 100 ML IVPB SCH ×3 (02:10→14:54)
[2020-04-06] MEDS: INSULIN SLIDING SCALE (NOVOLOG) 1 VIAL SQ SCH ×4 (07:23→21:59)
[2020-04-06 08:41] LABS: ALBUMIN 3.2 g/dl (3.4-5.0); BILIRUBIN,TOTAL 0.4 mg/dL (0.2-1); BLOOD UREA NITROGEN 13.6 mg/dL (7-18); CALCIUM 8.3 mg/dL (8.5-10.1); CREATININE 1.1 mg/dL (0.55-1.3); MAGNESIUM 2.3 mg/dL (1.8-2.4); PHOSPHOROUS 3.7 mg/dL (2.5-4.9); POTASSIUM 3.5 mmol/L (3.5-5.1)
[2020-04-06 08:55] LABS: BASO % 1.6 % (0-2.0); EOS % 0.1 % (0-4.5); HEMATOCRIT 37.1 % (32.4-45.2); HEMOGLOBIN 11.9 GM/dL (10.7-15.3); MCH 26.8 pg (25.7-33.7); MCHC 32.2 g/dl (32.0-36.0); MEAN CELL VOLUME 83.2 fl (80-96); MEAN PLT VOLUME 8.7 fl (7.5-11.1); MONO % 12.9 % (3.8-10.2); NEUT % 55.4 % (42.8-82.8); PLATELET COUNT 180 K/MM3 (134-434); RBC 4.45 M/mm3 (3.60-5.2); RDW 14.1 % (11.6-15.6)
[2020-04-06 09:10] LABS: WHITE BLOOD COUNT 1.5 K/mm3 (4.0-10.0)
[2020-04-06] MEDS: SODIUM CHLORIDE 1,000 ML IV SCH (11:07)
[2020-04-06] MEDS ORDERED: PT OWN MED DRAWER 7, Y5N ONE ×2 (11:35→15:07)
[2020-04-06 12:03] LABS: ANISOCYTOSIS 0; MACROCYTOSIS 0
[2020-04-06] MEDS: ENOXAPARIN NA (PORCINE) 30 MG/0.3 ML DISP.SYRIN SQ SCH (12:28)
--- NOTE | 2020-04-06 12:57 | EKG ---
Test Reason : Blood Pressure : / mmHG Vent. Rate : 099 BPM Atrial Rate : 099 BPM P-R Int : 174 ms QRS Dur : 126 ms QT Int : 426 ms P-R-T Axes : 058 082 065 degrees QTc Int : 546 ms SINUS RHYTHM WITH PREMATURE ATRIAL COMPLEXES RIGHT BUNDLE BRANCH BLOCK ABNORMAL ECG WHEN COMPARED WITH ECG OF 17-JAN-2020 11:01, PREMATURE ATRIAL COMPLEXES ARE NOW PRESENT RIGHT BUNDLE BRANCH BLOCK IS NOW PRESENT Confirmed by JONO CAPPS MD ([id number]) on 04/06/2020 12:57:38 PM Referred By: Confirmed By:JONO CAPPS MD
--- NOTE | 2020-04-06 13:24 | PN ---
Progress Note (short form) - Note Progress Note: ID consult dictated imp/reccd 64 yo female with HIV admitted with 3 days of fever and chills- started on Thursday developed diarrhea profuse with incontinence yesterday no abdominal pain +cough +HSV outbreak started on Thursday pen allergy ct scans noted fevers diarrhea hsv cough-copd neutropenia HIV covid negative f/u cultures cefepime/flagyl add po valtrex can resume hiv meds resume symbicort and spiriva for copd exacerbation neuropathy- please resume gabapentin f/u cbc and labs renal function improved with hydration she is scheduled for colonoscopy next Thursday with dr Chawla neutropenic precautions d/w hospitalist Problem List - Problems (1) Fever Code(s): R50.9 - FEVER, UNSPECIFIED Qualifiers: Fever type: unspecified Qualified Code(s): R50.9 - Fever, unspecified (2) Diarrhea Code(s): R19.7 - DIARRHEA, UNSPECIFIED Qualifiers: Diarrhea type: unspecified type Qualified Code(s): R19.7 - Diarrhea, unspecified (3) Neutropenia Code(s): D70.9 - NEUTROPENIA, UNSPECIFIED (4) Recurrent genital HSV (herpes simplex virus) infection Code(s): A60.00 - HERPESVIRAL INFECTION OF UROGENITAL SYSTEM, UNSPECIFIED (5) HIV (human immunodeficiency virus infection) Code(s): Z21 - ASYMPTOMATIC HUMAN IMMUNODEFICIENCY VIRUS INFECTION STATUS Qualifiers: HIV symptom status: symptomatic Qualified Code(s): B20 - Human immunodeficiency virus [HIV] disease (6) COPD (chronic obstructive pulmonary disease) Code(s): J44.9 - CHRONIC OBSTRUCTIVE PULMONARY DISEASE, UNSPECIFIED
[2020-04-06 13:33] LABS: PLATELET ESTIMATE ADEQUATE
[2020-04-06] MEDS ORDERED: valACYclovir HCL 1000 MG TABLET PO SCH ×2 (13:45→14:00)
[2020-04-06] MEDS ORDERED: ACYCLOVIR 1000 MG (50MG/ML) VIAL IVPB SCH (13:45)
[2020-04-06] MEDS: BUDESONIDE/FORMETEROL FUMARATE 160/4.5 mcg INHALER IH SCH ×2 (15:16→21:59)
[2020-04-06] MEDS: valACYclovir HCL 500 MG TABLET (FP) PO SCH ×2 (15:16→21:57)
[2020-04-06] MEDS: TIOTROPIUM BROMIDE 2.5 MCG (SPIRIVA) RESPIMAT INHALER IH SCH (15:16)
--- NOTE | 2020-04-06 16:50 | PN ---
Physical Exam: SUBJECTIVE: Patient seen and examined. No complaints. Denies cough & chills. Endorses diarrhea overnight. Fecal incontinence. Denies blood in stool. OBJECTIVE: Vital Signs Period Temp Pulse Resp BP Sys/Inman Pulse Ox Last 24 Hr 98.0 F-98.8 F 78-95 18-18 99-112/65-72 95-100 GENERAL: The patient is awake, alert, and fully oriented, in no acute distress. HEENT: Normal with no signs of trauma. No ptosis. MMM LUNGS: minimal wheezes in upper lobes, no crackles, no accessory muscle use. HEART: Regular rate and rhythm, S1, S2 without murmur, rub or gallop. ABDOMEN: Soft, nontender, nondistended, normoactive bowel sounds, no guarding, no rebound EXTREMITIES: 2+ pulses, warm, well-perfused, no edema. Decreased sensation to palpation on Plantar and dorsal aspect of feet. NEUROLOGICAL: Normal speech, gait not observed. PSYCH: Normal mood, normal affect. Laboratory Results - last 24 hr 04/05/20 04/05/20 04/05/20 14:47 14:47 15:00 WBC RBC Hgb Hct MCV MCH MCHC RDW Plt Count MPV Absolute Neuts (auto) Neutrophils % Neutrophils % (Manual) Band Neutrophils % Lymphocytes % Lymphocytes % (Manual) Monocytes % Monocytes % (Manual) Eosinophils % Eosinophils % (Manual) Basophils % Basophils % (Manual) Myelocytes % (Man) Promyelocytes % (Man) Blast Cells % (Manual) Nucleated RBC % Metamyelocytes Hypochromia Platelet Estimate Polychromasia Poikilocytosis Anisocytosis Microcytosis Macrocytosis D-Dimer 3788 H Anticoagulation Therapy No Result Required. Puncture Site No Result Required. Patient Temperature No Result Required. ABG pH 7.330 L ABG pCO2 43.30 ABG pO2 32.3 L* ABG HCO3 22.3 ABG O2 Sat (Measured) 57.7 L ABG O2 Content No Result Required. ABG Base Excess -3.6 L Abdulaziz Test No Result Required. Patient On Oxygen No Result Required. O2 Delivery Device No Result Required. Oxygen Flow Rate No Result Required. Vent Mode No Result Required. Vent Rate No Result Required. Mechanical Rate No Result Required. PEEP No Result Required. Pressure Support Vent No Result Required. Sodium Potassium Chloride Carbon Dioxide Anion Gap BUN Creatinine Est GFR (CKD-EPI)AfAm Est GFR (CKD-EPI)NonAf POC Glucometer Random Glucose Calcium Phosphorus Magnesium Total Bilirubin AST ALT Alkaline Phosphatase C-Reactive Protein 1.7 H Total Protein Albumin COVID-19 (MONTY) 04/05/20 04/05/20 04/06/20 17:20 22:29 06:49 WBC RBC Hgb Hct MCV MCH MCHC RDW Plt Count MPV Absolute Neuts (auto) Neutrophils % Neutrophils % (Manual) Band Neutrophils % Lymphocytes % Lymphocytes % (Manual) Monocytes % Monocytes % (Manual) Eosinophils % Eosinophils % (Manual) Basophils % Basophils % (Manual) Myelocytes % (Man) Promyelocytes % (Man) Blast Cells % (Manual) Nucleated RBC % Metamyelocytes Hypochromia Platelet Estimate Polychromasia Poikilocytosis Anisocytosis Microcytosis Macrocytosis D-Dimer Anticoagulation Therapy Puncture Site Patient Temperature ABG pH ABG pCO2 ABG pO2 ABG HCO3 ABG O2 Sat (Measured) ABG O2 Content ABG Base Excess Abdulaziz Test Patient On Oxygen O2 Delivery Device Oxygen Flow Rate Vent Mode Vent Rate Mechanical Rate PEEP Pressure Support Vent Sodium Potassium Chloride Carbon Dioxide Anion Gap BUN Creatinine Est GFR (CKD-EPI)AfAm Est GFR (CKD-EPI)NonAf POC Glucometer 95 104 Random Glucose Calcium Phosphorus Magnesium Total Bilirubin AST ALT Alkaline Phosphatase C-Reactive Protein Total Protein Albumin COVID-19 (MONTY) Not detected 04/06/20 04/06/20 07:46 07:46 WBC 1.5 L* RBC 4.45 Hgb 11.9 Hct 37.1 MCV 83.2 MCH 26.8 MCHC 32.2 RDW 14.1 Plt Count 180 MPV 8.7 Absolute Neuts (auto) 0.8 L Neutrophils % 55.4 Neutrophils % (Manual) 60.8 Band Neutrophils % 3.9 Lymphocytes % 30.0 D Lymphocytes % (Manual) 23.5 Monocytes % 12.9 H Monocytes % (Manual) 9 Eosinophils % 0.1 Eosinophils % (Manual) 0.0 Basophils % 1.6 Basophils % (Manual) 0.0 Myelocytes % (Man) 0 Promyelocytes % (Man) 0 Blast Cells % (Manual) 0 Nucleated RBC % 0 Metamyelocytes 0 Hypochromia 0 Platelet Estimate Adequate Polychromasia 0 Poikilocytosis 0 Anisocytosis 0 Microcytosis 0 Macrocytosis 0 D-Dimer Anticoagulation Therapy Puncture Site Patient Temperature ABG pH ABG pCO2 ABG pO2 ABG HCO3 ABG O2 Sat (Measured) ABG O2 Content ABG Base Excess Abdulaziz Test Patient On Oxygen O2 Delivery Device Oxygen Flow Rate Vent Mode Vent Rate Mechanical Rate PEEP Pressure Support Vent Sodium 136 Potassium 3.5 Chloride 105 Carbon Dioxide 24 Anion Gap 7 L BUN 13.6 Creatinine 1.1 Est GFR (CKD-EPI)AfAm 61.88 Est GFR (CKD-EPI)NonAf 53.39 POC Glucometer Random Glucose 101 Calcium 8.3 L Phosphorus 3.7 Magnesium 2.3 Total Bilirubin 0.4 AST 82 H ALT 36 Alkaline Phosphatase 74 C-Reactive Protein Total Protein 8.0 Albumin 3.2 L COVID-19 (MONTY) Active Medications Generic Name Dose Route Start Last Admin Trade Name Freq PRN Reason Stop Dose Admin Abacavir Sulfate 600 mg 04/07/20 10:00 Ziagen - PO DAILY SHERI Albuterol Sulfate 2 puff 04/06/20 00:00 04/06/20 12:38 Ventolin Hfa Inhaler - IH 2 puff Q6HPO SHERI Administration Albuterol/Ipratropium 1 amp 04/06/20 13:32 Duoneb - NEB Q6H PRN SHORTNESS OF BREATH Budesonide/Formoterol Fumarate 2 puff 04/06/20 13:45 04/06/20 15:16 Symbicort 160/4.5mcg - IH 2 puff BID SHERI Administration Darunavir 800 mg 04/07/20 10:00 Prezista - PO DAILY SHERI Enoxaparin Sodium 30 mg 04/06/20 10:00 04/06/20 12:28 Lovenox - SQ Not Given DAILY SHERI Sodium Chloride 1,000 mls @ 125 mls/hr 04/06/20 08:15 04/06/20 11:07 Normal Saline - IV 125 mls/hr ASDIR SHERI Administration Cefepime HCl 1 gm/ Dextrose 50 mls @ 100 mls/hr 04/06/20 18:00 IVPB Q8H-IV SHERI Protocol Metronidazole 500 mg in 100 mls @ 100 mls/hr 04/06/20 14:00 04/06/20 16:22 Flagyl 500mg Premixed Ivpb - IVPB 100 mls/hr Q8H-IV SHERI Administration Insulin Aspart 1 vial 04/05/20 22:00 04/06/20 12:39 Novolog Vial Sliding Scale - SQ Not Given ACHS [facility] Protocol Lamivudine 300 mg 04/07/20 10:00 Epivir - PO DAILY SHERI Ritonavir 100 mg 04/07/20 10:00 Norvir - PO DAILY [facility] Tiotropium [place] 2 puff 04/06/20 13:45 04/06/20 15:16 Spiriva Respimat IH 2 puff DAILY SHERI Administration Valacyclovir HCl 1,000 mg 04/06/20 14:00 04/06/20 15:16 Valtrex - PO 1,000 mg BID SHERI Administration ASSESSMENT/PLAN: Pt is 64 YO F PMH HTN, DM, HIV (CD4 count 254 on 02/14/20, adherent on HAART) p/w fever, chills, generalized weakness, diarrhea. Admitted for sepsis. #Sepsis 2/2 unknown etiology -COVID negative. blood cx negative -f/u UA, sputum cx,influenza A & B, AFB culture/smear -s/p vanc, meropenem in ED -ID c/s appreciated. empiric cefepime 1 gm Q8H & metronidazole 500 mg Q8H -CTA no PE; vascular studies: no DVT -CTAP no contrast: increased fluid within colon. f/u stool culture, stool WBCs, legionella antigen, crypto/giardia antigen, #FELIZ 2/2 dehydration -c/w NS @125 ml/hr -improved. Cr downtrended from 1.6 to 1.1 today #COPD -s/p 6 mg IV ONCE dexamethasone -symbicort BID and spiriva DAILY for copd exacerbation -duoneb Q6H PRN #HIV -c/w neutropenic precautions -ID c/s appreciated. -Lamivudine 300 mg PO Daily -ritnovair 100 mg PO Daily -Darunavir 800 mg PO daily -HSV: c/w Valacyclovir #Neuropathy 300 ng gabapentin PO BID #DM Hgb 7.8 ISS BGM #HTN #DVT PPX 30 mg SQ DAILY (renally dosed) #FEN - NS @125 ml/hr -monitor lytes. Hyponatremia resolved. -neutropenic diet #DISPO maintain med surg Visit type - Emergency Visit Emergency Visit: Yes ED Registration Date: 04/05/20 Care time: The patient presented to the Emergency Department on the above date and was hospitalized for further evaluation of their emergent condition. - New Patient This patient is new to me today: No - Critical Care Critical Care patient: No ATTENDING PHYSICIAN STATEMENT I saw and evaluated the patient. I reviewed the resident's note and discussed the case with the resident. I agree with the resident's findings and plan as documented. SUBJECTIVE: OBJECTIVE: ASSESSMENT AND PLAN:
--- NOTE | 2020-04-06 17:10 | CONS ---
DATE OF CONSULTATION: DATE OF DICTATION: 04/06/2020 INFECTIOUS DISEASE CONSULTATION HISTORY OF PRESENT ILLNESS: This is a 64-year-old woman who I know well from clinic. She has a history of HIV. She most recently in February has had history of intermittent adherence with her medications, has been taking them faithfully recently. Most recent T-cells done in February were 254. She called the clinic on Thursday with complaints of fever. Fever started on Thursday, was high as 102 at home. She had been having chills. She was advised to go to the ER. She also noted a cough. She stayed home. She called the clinic on Thursday. She stayed at home until yesterday afternoon when she developed profuse diarrhea, and she came to the ER. She denies any abdominal pain. She denies any chest pain. She does note she has a cough and occasional wheeze. There is no swelling of her legs, but she notes worsening of her peripheral neuropathy and has been taking gabapentin. In the emergency room she had a CAT scan of her chest, abdomen, and pelvis that showed no acute changes. CAT scan of the abdomen and pelvis was consistent with possible diarrheal illness. She was given vancomycin and meropenem and admitted. She has continued to have profuse diarrhea. She has no vomiting. The diarrhea is not bloody. She has been taking Tylenol at home. Her cough she reports is improving, was worse last week and is now better. She had a COVID test in the ER and it is negative. She just returned from a chest CTA to rule out PE, and it was negative as well. ALLERGIES: She is allergic to PENICILLIN but tolerates cephalosporins. PAST MEDICAL HISTORY: Notable for anorexia for which she has been hospitalized in the past. She has a history as well of COPD. She has had influenza A and B before. She had an unexplained weight gain that resolved. She had gained about 80 pounds, and she has recently lost about 40 or 50 of them. Her past medical history is notable for hypertension which is resolved with weight loss, hyperlipidemia which has improved, diabetes which resolved with stopping steroids, HIV for which she has intermittent adherence, COPD. She has had influenza twice, but influenza A and influenza B this past winter, and her surgical history is notable for tonsillectomy and . She has a history as well of GERD, remote history of cryptosporidium diarrhea. She has a history of pneumonia in the past. She has been on Norvir, Prezista, Epzicom as an outpatient. She uses Symbicort and Spiriva as well, and she is using Neurontin, gabapentin, and Percocet p.r.n. for her leg pain. She is followed by pain management in the clinic. And she was planning to follow up with the neurologist. MEDICATION: Her medications at home include Ambien, vitamin B, Valtrex. She has a history of Ellipta, ritonavir, pyridoxine, oxycodone, Robaxin, Neurontin, vitamin D, Voltaren, Prezista, bupropion and abacavir , Epzicom 1 tablet daily. She has not been taking her HIV medications in the last 2 days. She had a recent admission in January which was also noted for diarrhea, for which this is now her 4th admission. Recent stool workups have all been negative. She was referred to Dr. Ruiz for outpatient evaluation, and she is scheduled for colonoscopy next week. 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 Her stool workup from her last admission in January was unremarkable. SOCIAL HISTORY: She resides with her daughter, who is well. She has no sick contacts. There has been no travel. PHYSICAL EXAMINATION: Vital Signs: Her T-max is 100.7, current temperature is 98.1, pulse of 95, blood pressure 101/71, respiratory rate 18, saturating 98% on room air. HEENT: Normocephalic. Eyes are anicteric. She has no thrush. Neck: Supple. Lungs: Scattered rhonchi. Heart: Regular rate and rhythm. Abdomen: Soft, nontender. Extremities: Without edema. Genitourinary: She has perirectal HSV lesions. CAT scan of the chest shows interval develop of trace bilateral pleural effusions. Mild bilateral apical parenchymal scarring unchanged from February 23. She has got some mild emphysema. CAT scan of the abdomen and pelvis was notable for somewhat increased fluid within the colon and several mid to distal small bowel loops. Her labs are notable for a white count on admission of 3.2, today is 1.5 with an ANC of 800, hemoglobin 11.9, platelets are 180. BUN and creatinine on admission were 13 and 1.6, today are 13 and 1.1. LFTs: AST of 82, otherwise normal. LDH was 548 on admission. CRP of 1.7. Urinalysis is negative. Stool occult blood was not done. COVID PCR was negative. Blood cultures at 24 hours are unremarkable. IMPRESSION: In summary, this is a 64-year-old woman admitted from home with fever, diarrhea, another genital herpes simplex virus outbreak, cough, neutropenia, and human immunodeficiency virus COVID negative. Followup cultures. Would treat her with cefepime and Flagyl, add p.o. Valtrex. Can resume her HIV medicine Norvir, Prezista, Epzicom. Would resume her Symbicort and Spiriva for her COPD exacerbation. As well please resume gabapentin for her neuropathy. Follow up CBC and labs. Her renal function appears to be improving with hydration. Stool studies need to be sent as well. GERDA NEGRO M.D. [id number]
--- NOTE | 2020-04-06 17:23 | PN ---
Teaching Attending Note Name of Resident: David Lopez ATTENDING PHYSICIAN STATEMENT I saw and evaluated the patient. I reviewed the resident's note and discussed the case with the resident. I agree with the resident's findings and plan as documented. SUBJECTIVE: Emotional, tearful, no physical complaints. No further fevers. Cough last week, subsiding now. Diarrhea +. No melena/hematochezia. OBJECTIVE: Tmax 100.7. Hemodynamically Stable. Last Vital Signs Temp Pulse Resp BP Pulse Ox 98.1 F 95 H 18 101/71 98 04/06/20 09:50 04/06/20 09:50 04/06/20 09:50 04/06/20 09:50 04/06/20 09:50 HEENT - Atraumatic, Normocephalic. Heart - S1, S2, RRR Lungs - clear to auscultation Abdomen - soft, non-tender. Bowel Sounds normal. Extremities - no edema, no calf tenderness. Neuro - AAO x 3. Tone/Power normal all extremities. Laboratory Results - last 24 hr 04/05/20 04/05/20 04/05/20 14:47 15:00 17:20 WBC RBC Hgb Hct MCV MCH MCHC RDW Plt Count MPV Absolute Neuts (auto) Neutrophils % Neutrophils % (Manual) Band Neutrophils % Lymphocytes % Lymphocytes % (Manual) Monocytes % Monocytes % (Manual) Eosinophils % Eosinophils % (Manual) Basophils % Basophils % (Manual) Myelocytes % (Man) Promyelocytes % (Man) Blast Cells % (Manual) Nucleated RBC % Metamyelocytes Hypochromia Platelet Estimate Polychromasia Poikilocytosis Anisocytosis Microcytosis Macrocytosis D-Dimer 3788 H Anticoagulation Therapy No Result Required. Puncture Site No Result Required. Patient Temperature No Result Required. ABG pH 7.330 L ABG pCO2 43.30 ABG pO2 32.3 L* ABG HCO3 22.3 ABG O2 Sat (Measured) 57.7 L ABG O2 Content No Result Required. ABG Base Excess -3.6 L Abdulaziz Test No Result Required. Patient On Oxygen No Result Required. O2 Delivery Device No Result Required. Oxygen Flow Rate No Result Required. Vent Mode No Result Required. Vent Rate No Result Required. Mechanical Rate No Result Required. PEEP No Result Required. Pressure Support Vent No Result Required. Sodium Potassium Chloride Carbon Dioxide Anion Gap BUN Creatinine Est GFR (CKD-EPI)AfAm Est GFR (CKD-EPI)NonAf POC Glucometer Random Glucose Calcium Phosphorus Magnesium Total Bilirubin AST ALT Alkaline Phosphatase Total Protein Albumin COVID-19 ([facility]) Not detected 04/05/20 04/06/20 04/06/20 22:29 06:49 07:46 WBC 1.5 L* RBC 4.45 Hgb 11.9 Hct 37.1 MCV 83.2 MCH 26.8 MCHC 32.2 RDW 14.1 Plt Count 180 MPV 8.7 Absolute Neuts (auto) 0.8 L Neutrophils % 55.4 Neutrophils % (Manual) 60.8 Band Neutrophils % 3.9 Lymphocytes % 30.0 D Lymphocytes % (Manual) 23.5 Monocytes % 12.9 H Monocytes % (Manual) 9 Eosinophils % 0.1 Eosinophils % (Manual) 0.0 Basophils % 1.6 Basophils % (Manual) 0.0 Myelocytes % (Man) 0 Promyelocytes % (Man) 0 Blast Cells % (Manual) 0 Nucleated RBC % 0 Metamyelocytes 0 Hypochromia 0 Platelet Estimate Adequate Polychromasia 0 Poikilocytosis 0 Anisocytosis 0 Microcytosis 0 Macrocytosis 0 D-Dimer Anticoagulation Therapy Puncture Site Patient Temperature ABG pH ABG pCO2 ABG pO2 ABG HCO3 ABG O2 Sat (Measured) ABG O2 Content ABG Base Excess Abdulaziz Test Patient On Oxygen O2 Delivery Device Oxygen Flow Rate Vent Mode Vent Rate Mechanical Rate PEEP Pressure Support Vent Sodium Potassium Chloride Carbon Dioxide Anion Gap BUN Creatinine Est GFR (CKD-EPI)AfAm Est GFR (CKD-EPI)NonAf POC Glucometer 95 104 Random Glucose Calcium Phosphorus Magnesium Total Bilirubin AST ALT Alkaline Phosphatase Total Protein Albumin COVID-19 ([facility]) 04/06/20 07:46 WBC RBC Hgb Hct MCV MCH MCHC RDW Plt Count MPV Absolute Neuts (auto) Neutrophils % Neutrophils % (Manual) Band Neutrophils % Lymphocytes % Lymphocytes % (Manual) Monocytes % Monocytes % (Manual) Eosinophils % Eosinophils % (Manual) Basophils % Basophils % (Manual) Myelocytes % (Man) Promyelocytes % (Man) Blast Cells % (Manual) Nucleated RBC % Metamyelocytes Hypochromia Platelet Estimate Polychromasia Poikilocytosis Anisocytosis Microcytosis Macrocytosis D-Dimer Anticoagulation Therapy Puncture Site Patient Temperature ABG pH ABG pCO2 ABG pO2 ABG HCO3 ABG O2 Sat (Measured) ABG O2 Content ABG Base Excess Abdulaziz Test Patient On Oxygen O2 Delivery Device Oxygen Flow Rate Vent Mode Vent Rate Mechanical Rate PEEP Pressure Support Vent Sodium 136 Potassium 3.5 Chloride 105 Carbon Dioxide 24 Anion Gap 7 L BUN 13.6 Creatinine 1.1 Est GFR (CKD-EPI)AfAm 61.88 Est GFR (CKD-EPI)NonAf 53.39 POC Glucometer Random Glucose 101 Calcium 8.3 L Phosphorus 3.7 Magnesium 2.3 Total Bilirubin 0.4 AST 82 H ALT 36 Alkaline Phosphatase 74 Total Protein 8.0 Albumin 3.2 L COVID-19 ([facility]) Current Medications Generic Name Dose Route Start Last Admin Trade Name Freq PRN Reason Stop Dose Admin Abacavir Sulfate 600 mg 04/07/20 10:00 Ziagen - PO DAILY SHERI Albuterol Sulfate 2 puff 04/06/20 00:00 04/06/20 12:38 Ventolin Hfa Inhaler - IH 2 puff Q6HPO SHERI Administration Albuterol/Ipratropium 1 amp 04/06/20 13:32 Duoneb - NEB Q6H PRN SHORTNESS OF BREATH Budesonide/Formoterol Fumarate 2 puff 04/06/20 13:45 04/06/20 15:16 Symbicort 160/4.5mcg - IH 2 puff BID SHERI Administration Darunavir 800 mg 04/07/20 10:00 Prezista - PO DAILY SHERI Enoxaparin Sodium 30 mg 04/06/20 10:00 04/06/20 12:28 Lovenox - SQ Not Given DAILY SHERI Sodium Chloride 1,000 mls @ 125 mls/hr 04/06/20 08:15 04/06/20 11:07 Normal Saline - IV 125 mls/hr ASDIR SHERI Administration Cefepime HCl 1 gm/ Dextrose 50 mls @ 100 mls/hr 04/06/20 18:00 IVPB Q8H-IV SHERI Protocol Metronidazole 500 mg in 100 mls @ 100 mls/hr 04/06/20 14:00 04/06/20 17:15 Flagyl 500mg Premixed Ivpb - IVPB Not Given Q8H-IV SHERI Insulin Aspart 1 vial 04/05/20 22:00 04/06/20 17:04 Novolog Vial Sliding Scale - SQ Not Given ACHS SHERI Protocol Lamivudine 300 mg 04/07/20 10:00 Epivir - PO DAILY SHERI Ritonavir 100 mg 04/07/20 10:00 Norvir - PO DAILY SHERI Tiotropium [place] 2 puff 04/06/20 13:45 04/06/20 15:16 Spiriva Respimat IH 2 puff DAILY SHERI Administration Valacyclovir HCl 1,000 mg 04/06/20 14:00 04/06/20 15:16 Valtrex - PO 1,000 mg BID SHERI Administration Home Medications Medication Instructions Recorded Umeclidinium [place] [Incruse 62.5 mcg IH DAILY 01/03/20 Ellipta] Pyridoxine HCl (B-6) [Vitamin B6 -] 25 mg PO BID #56 tablet 01/06/20 Ergocalciferol (Vitamin D2) 2,000 unit PO DAILY #30 tablet 01/12/20 [Vitamin D2] Vitamin B Complex [B Complex] 1 each PO DAILY #30 tablet 02/14/20 Oxycodone HCl/Acetaminophen 1 each PO BID PRN #60 tablet MDD 2 03/13/20 [Endocet 5-325 Tablet] Abacavir Sulfate/Lamivudine 1 each PO DAILY #30 tablet 03/29/20 [Abacavir-Lamivudine 600-300 mg] Bupropion HCl [Bupropion HCl ER] 200 mg PO AM #30 tab.er.12h 03/29/20 Darunavir Ethanolate [Prezista -] 800 mg PO DAILY #30 tablet 03/29/20 Gabapentin [Neurontin -] 300 mg PO Q12H #60 cap 03/29/20 Ritonavir [Norvir -] 100 mg PO DAILY #30 tab 03/29/20 Valacyclovir HCl [Valtrex -] 500 mg PO BID #60 tablet 03/29/20 Zolpidem Tartrate [Ambien] 10 mg PO HS #30 tablet MDD 1 03/29/20 ASSESSMENT AND PLAN: 61 year old female with history of HIV (last CD4 count 254, on HAART), HTN, HLD, DM 2, presents with fevers, chills, myalgias, fatigue for 1 week, with 1 day history of watery diarrhea. 1. Febrile Illness, etiology unclear with associated Neutropenia CXR/CT Chest - no consolidation Urine Cx requested, not sent. Blood Cx pending COVID PCR negative Flu swab requested Diarrheal illness with dilated fluid filled bowel loops on CT - Stool for Cx and Cdiff requested. Vanco/Meropenem given in ED - currently neutropenic, to continue empiric Cefepime and Flagyl ID following. 2. HIV on HAART - resumed by ID. Hx HSV with current outbreak - on Valacyclovir 3. Elevated DDIMER - appears chronic CTA Chest - no PE Duplex LEs - no DVT. 4. FELIZ sec to dehydration - resolved with IV hydration. 5. Hx Neuropathy - normally on Gabapentin. 6. COPD - resumed on Spiriva and Symbicort with DuoNebs PRN Advised against Prednisone by ID due to prior general adverse effects DVT Px - Lovenox SQ
[2020-04-06] MEDS ORDERED: ACETAMINOPHEN 325 MG TABLET (FP) PO PRN (17:29)
[2020-04-06] MEDS ORDERED: CEFEPIME HCL 1 GM VIAL (RESTRICTED TO ID) ONE (17:40)
[2020-04-06] MEDS ORDERED: DEXTROSE 5%-WATER - 50 ML IVPB ONE (17:41)
[2020-04-06] MEDS ORDERED: oxyCODONE HCL 5 MG TABLET PO PRN (17:45)
[2020-04-06] MEDS: CEFEPIME 1 GM in DEXTROSE 5%-WATER - 50 ML IVPB SCH (18:26)
[2020-04-06] MEDS: PYRIDOXINE HCL (B-6) 50 MG TABLET (FP) PO SCH (21:56)
[2020-04-06] MEDS: VITAMIN B COMPLEX W/C COMBO TABLET (FP) PO SCH (21:57)
[2020-04-06] MEDS: GABAPENTIN 300 MG CAPSULE PO SCH (21:57)
[2020-04-06] MEDS: ZOLPIDEM TARTRATE 5 MG TABLET PO PRN (22:29)
[2020-04-07] MEDS ORDERED: DEXTROSE 5%-WATER - 50 ML IVPB ONE ×3 (00:52→17:06)
[2020-04-07] MEDS ORDERED: CEFEPIME HCL 1 GM VIAL (RESTRICTED TO ID) ONE ×3 (00:52→17:06)
[2020-04-07] MEDS: CEFEPIME 1 GM in DEXTROSE 5%-WATER - 50 ML IVPB SCH ×3 (00:59→17:50)
[2020-04-07] MEDS: ALBUTEROL SO4 HFA INHALER IH SCH ×4 (05:40→17:53)
[2020-04-07] MEDS: INSULIN SLIDING SCALE (NOVOLOG) 1 VIAL SQ SCH ×4 (06:00→21:25)
[2020-04-07 09:33] LABS: BASO % 0.6 % (0-2.0); EOS % 0.3 % (0-4.5); HEMATOCRIT 37.5 % (32.4-45.2); HEMOGLOBIN 12.2 GM/dL (10.7-15.3); LYMPH % 59.3 % (8-40); MCH 27.5 pg (25.7-33.7); MCHC 32.4 g/dl (32.0-36.0); MEAN CELL VOLUME 84.9 fl (80-96); MONO % 9.7 % (3.8-10.2); NEUT % 30.1 % (42.8-82.8); PLATELET COUNT 178 K/MM3 (134-434); RBC 4.42 M/mm3 (3.60-5.2); RDW 14.4 % (11.6-15.6); WHITE BLOOD COUNT 2.1 K/mm3 (4.0-10.0)
[2020-04-07] MEDS ORDERED: PT OWN MED DRAWER 7, Y5N ONE ×2 (09:39→10:06)
[2020-04-07] MEDS: ENOXAPARIN NA (PORCINE) 30 MG/0.3 ML DISP.SYRIN SQ SCH ×2 (09:45→10:00)
[2020-04-07] MEDS: SODIUM CHLORIDE 1,000 ML IV SCH (09:46)
[2020-04-07] MEDS: valACYclovir HCL 500 MG TABLET (FP) PO SCH ×2 (09:48→21:25)
[2020-04-07] MEDS: GABAPENTIN 300 MG CAPSULE PO SCH ×2 (09:48→21:25)
[2020-04-07] MEDS: CHOLECALCIFEROL (VIT D3) 1,000 UNIT (25 MCG) TABLET PO SCH (09:48)
[2020-04-07] MEDS: VITAMIN B COMPLEX W/C COMBO TABLET (FP) PO SCH (09:49)
[2020-04-07] MEDS: PYRIDOXINE HCL (B-6) 50 MG TABLET (FP) PO SCH ×2 (09:50→21:26)
[2020-04-07] MEDS: buPROPion HCL 100 MG TABLET PO SCH (09:50)
[2020-04-07] MEDS: ABACAVIR SULFATE 300 MG TABLET PO SCH (09:50)
[2020-04-07] MEDS: DARUNAVIR ETHANOLATE 800 MG TAB PO SCH (09:53)
[2020-04-07] MEDS: RITONAVIR 100 MG TABLET PO SCH (09:54)
[2020-04-07] MEDS: BUDESONIDE/FORMETEROL FUMARATE 160/4.5 mcg INHALER IH SCH ×2 (10:02→21:21)
[2020-04-07] MEDS: TIOTROPIUM BROMIDE 2.5 MCG (SPIRIVA) RESPIMAT INHALER IH SCH (10:02)
[2020-04-07 10:08] LABS: POTASSIUM 3.4 mmol/L (3.5-5.1)
[2020-04-07 10:24] LABS: ALBUMIN 3.4 g/dl (3.4-5.0); BLOOD UREA NITROGEN 10.9 mg/dL (7-18); CALCIUM 8.6 mg/dL (8.5-10.1); CREATININE 1.1 mg/dL (0.55-1.3); MAGNESIUM 2.3 mg/dL (1.8-2.4); PHOSPHOROUS 2.8 mg/dL (2.5-4.9); TOT PROT 8.1 g/dl (6.4-8.2)
[2020-04-07 10:28] LABS: BILIRUBIN,TOTAL 0.6 mg/dL (0.2-1)
[2020-04-07] MEDS: ALBUTEROL SO4 2.5/IPRATROPIUM 0.5 INH SOL 3 ML VIAL.NEB. NEB PRN (11:38)
[2020-04-07] MEDS ORDERED: POTASSIUM CHLORIDE TABS 20 MEQ TABLET.ER (FP) PO SCH (12:15)
--- NOTE | 2020-04-07 14:07 | PN ---
Teaching Attending Note Name of Resident: Christian Almeida ATTENDING PHYSICIAN STATEMENT I saw and evaluated the patient. I reviewed the resident's note and discussed the case with the resident. I agree with the resident's findings and plan as documented. SUBJECTIVE: Diarrhea overnight and thia AM. Cough +. No melena/hematochezia. No further fever. OBJECTIVE: Fever resolved, Hemodynamically Stable. Last Vital Signs Temp Pulse Resp BP Pulse Ox 97.6 F 66 18 96/54 L 98 04/07/20 09:14 04/07/20 09:14 04/07/20 09:14 04/07/20 09:14 04/07/20 09:14 Heart - S1, S2, RRR Lungs - mild expiratory wheeze Abdomen - soft, non-tender. Bowel Sounds normal. Extremities - no edema, no calf tenderness. Neuro - AAO x 3. Tone/Power normal all extremities. Laboratory Results - last 24 hr 04/07/20 04/07/20 08:37 08:37 WBC 2.1 L RBC 4.42 Hgb 12.2 Hct 37.5 MCV 84.9 MCH 27.5 MCHC 32.4 RDW 14.4 Plt Count 178 MPV 9.0 Absolute Neuts (auto) 0.6 L Neutrophils % 30.1 L D Lymphocytes % 59.3 H D Monocytes % 9.7 Eosinophils % 0.3 D Basophils % 0.6 Nucleated RBC % 0 Sodium 142 Potassium 3.4 L Chloride 110 H Carbon Dioxide 26 Anion Gap 6 L BUN 10.9 Creatinine 1.1 Est GFR (CKD-EPI)AfAm 61.88 Est GFR (CKD-EPI)NonAf 53.39 Random Glucose 109 H Calcium 8.6 Phosphorus 2.8 Magnesium 2.3 Total Bilirubin 0.6 AST 78 H ALT 36 Alkaline Phosphatase 71 Total Protein 8.1 Albumin 3.4 Current Medications Generic Name Dose Route Start Last Admin Trade Name Freq PRN Reason Stop Dose Admin Abacavir Sulfate 600 mg 04/07/20 10:00 04/07/20 09:50 Ziagen - PO 600 mg DAILY SHERI Administration Acetaminophen 325 mg 04/06/20 17:29 Tylenol - PO BID PRN PAIN LEVEL 6-10 Albuterol Sulfate 2 puff 04/06/20 00:00 04/07/20 11:39 Ventolin Hfa Inhaler - IH 2 puff Q6HPO SHERI Administration Albuterol/Ipratropium 1 amp 04/06/20 13:32 04/07/20 11:38 Duoneb - NEB 1 amp Q6H PRN Administration SHORTNESS OF BREATH Budesonide/Formoterol Fumarate 2 puff 04/06/20 13:45 04/07/20 10:02 Symbicort 160/4.5mcg - IH 2 puff BID SHERI Administration Bupropion HCl 200 mg 04/07/20 10:00 04/07/20 09:50 Wellbutrin - PO 200 mg DAILY SHERI Administration Cholecalciferol 2,000 unit 04/07/20 10:00 04/07/20 09:48 Vitamin D3 - PO 2,000 unit DAILY SHERI Administration Darunavir 800 mg 04/07/20 10:00 04/07/20 09:53 Prezista - PO 800 mg DAILY SHERI Administration Enoxaparin Sodium 30 mg 04/06/20 10:00 04/07/20 10:00 Lovenox - SQ Not Given DAILY SHERI Gabapentin 300 mg 04/06/20 22:00 04/07/20 09:48 Neurontin - PO 300 mg BID SHERI Administration Cefepime HCl 1 gm/ Dextrose 50 mls @ 100 mls/hr 04/06/20 18:00 04/07/20 09:55 IVPB 100 mls/hr Q8H-IV SHERI Administration Protocol Metronidazole 500 mg in 100 mls @ 100 mls/hr 04/06/20 14:00 04/07/20 09:45 Flagyl 500mg Premixed Ivpb - IVPB 100 mls/hr Q8H-IV SHERI Administration Insulin Aspart 1 vial 04/05/20 22:00 04/07/20 11:26 Novolog Vial Sliding Scale - SQ Not Given ACHS SHERI Protocol Lamivudine 300 mg 04/07/20 10:00 04/07/20 09:53 Epivir - PO 300 mg DAILY SHERI Administration Multivitamins 1 each 04/06/20 17:30 04/07/20 09:49 Total B With C - PO 1 each DAILY SHERI Administration Oxycodone HCl 5 mg 04/06/20 17:45 Roxicodone - PO BID PRN PAIN LEVEL 6-10 Potassium Chloride 40 meq 04/07/20 12:15 04/07/20 13:24 K-Dur - PO 04/07/20 18:16 Not Given Q6H SHERI Pyridoxine HCl 25 mg 04/06/20 22:00 04/07/20 09:50 Vitamin B6 - PO 25 mg BID SHERI Administration Ritonavir 100 mg 04/07/20 10:00 04/07/20 09:54 Norvir - PO 100 mg DAILY SHERI Administration Tiotropium [place] 2 puff 04/06/20 13:45 04/07/20 10:02 Spiriva Respimat IH 2 puff DAILY SHERI Administration Valacyclovir HCl 1,000 mg 04/06/20 14:00 04/07/20 09:48 Valtrex - PO 1,000 mg BID SHERI Administration Zolpidem Tartrate 10 mg 04/06/20 22:00 04/06/20 22:29 Ambien - PO 10 mg HS PRN Administration INSOMNIA Home Medications Medication Instructions Recorded Umeclidinium [place] [Incruse 62.5 mcg IH DAILY 01/03/20 Ellipta] Pyridoxine HCl (B-6) [Vitamin B6 -] 25 mg PO BID #56 tablet 01/06/20 Ergocalciferol (Vitamin D2) 2,000 unit PO DAILY #30 tablet 01/12/20 [Vitamin D2] Vitamin B Complex [B Complex] 1 each PO DAILY #30 tablet 02/14/20 Oxycodone HCl/Acetaminophen 1 each PO BID PRN #60 tablet MDD 2 03/13/20 [Endocet 5-325 Tablet] Abacavir Sulfate/Lamivudine 1 each PO DAILY #30 tablet 03/29/20 [Abacavir-Lamivudine 600-300 mg] Bupropion HCl [Bupropion HCl ER] 200 mg PO AM #30 tab.er.12h 03/29/20 Darunavir Ethanolate [Prezista -] 800 mg PO DAILY #30 tablet 03/29/20 Gabapentin [Neurontin -] 300 mg PO Q12H #60 cap 03/29/20 Ritonavir [Norvir -] 100 mg PO DAILY #30 tab 03/29/20 Valacyclovir HCl [Valtrex -] 500 mg PO BID #60 tablet 03/29/20 Zolpidem Tartrate [Ambien] 10 mg PO HS #30 tablet MDD 1 03/29/20 ASSESSMENT AND PLAN: 61 year old female with history of HIV (last CD4 count 254, on HAART), HTN, HLD, DM 2, presents with fevers, chills, myalgias, fatigue for 1 week, with 1 day history of watery diarrhea. 1. Febrile Illness, etiology unclear with associated Neutropenia CXR/CT Chest - no consolidation Urine Cx pending Blood Cx negative COVID PCR negative Flu swab requested Diarrheal illness with dilated fluid filled bowel loops on CT - Stool Cdiff negative. Stool giardia/crypto negative. Vanco/Meropenem given in ED - currently neutropenic, to continue empiric Cefepime and Flagyl ID following. 2. HIV on HAART - resumed by ID. Hx HSV with current outbreak - on Valacyclovir 3. Elevated DDIMER - appears chronic CTA Chest - no PE Duplex LEs - no DVT. 4. FELIZ sec to dehydration - resolved with IV hydration. 5. Hx Neuropathy - normally on Gabapentin. 6. COPD - resumed on Spiriva and Symbicort with standing DuoNebs. Advised against Prednisone by ID due to prior general adverse effects 7. Hypokalemia - repleted. DVT Px - Lovenox SQ
[2020-04-07] MEDS ORDERED: TRIMETHOBENZAMIDE HCL 300 MG CAPSULE PO ONE (14:37)
[2020-04-07] MEDS: KCL 10 MEQ IVPB 10 MEQ/100 ML INFUS.BAG IVPB SCH ×2 (15:06→20:26)
--- NOTE | 2020-04-07 18:44 | PN ---
Progress Note, Physician History of Present Illness: C/O DIARRHEA, GENERALIZED WEAKNESS AFEBRILE - Current Medication List Current Medications: Active Medications Abacavir Sulfate (Ziagen -) 600 mg PO DAILY [facility] Last Admin: 04/07/20 09:50 Dose: 600 mg Documented by: Acetaminophen (Tylenol -) 325 mg PO BID PRN PRN Reason: PAIN LEVEL 6-10 Albuterol Sulfate (Ventolin Hfa Inhaler -) 2 puff IH Q6HPO [facility] Last Admin: 04/07/20 17:53 Dose: 2 puff Documented by: Albuterol/Ipratropium (Duoneb -) 1 amp NEB Q6H PRN PRN Reason: SHORTNESS OF BREATH Last Admin: 04/07/20 11:38 Dose: 1 amp Documented by: Budesonide/Formoterol Fumarate (Symbicort 160/4.5mcg -) 2 puff IH BID [facility] Last Admin: 04/07/20 10:02 Dose: 2 puff Documented by: Bupropion HCl (Wellbutrin -) 200 mg PO DAILY [facility] Last Admin: 04/07/20 09:50 Dose: 200 mg Documented by: Cholecalciferol (Vitamin D3 -) 2,000 unit PO DAILY [facility] Last Admin: 04/07/20 09:48 Dose: 2,000 unit Documented by: Darunavir (Prezista -) 800 mg PO DAILY [facility] Last Admin: 04/07/20 09:53 Dose: 800 mg Documented by: Enoxaparin Sodium (Lovenox -) 30 mg SQ DAILY [facility] Last Admin: 04/07/20 10:00 Dose: Not Given Documented by: Gabapentin (Neurontin -) 300 mg PO BID [facility] Last Admin: 04/07/20 09:48 Dose: 300 mg Documented by: Cefepime HCl 1 gm/ Dextrose 50 mls @ 100 mls/hr IVPB Q8H-IV [facility]; Protocol Last Admin: 04/07/20 17:50 Dose: 100 mls/hr Documented by: Metronidazole (Flagyl 500mg Premixed Ivpb -) 500 mg in 100 mls @ 100 mls/hr IVPB Q8H-IV [facility] Last Admin: 04/07/20 18:19 Dose: 100 mls/hr Documented by: Insulin Aspart (Novolog Vial Sliding Scale -) 1 vial SQ ACHS [facility]; Protocol Last Admin: 04/07/20 17:51 Dose: Not Given Documented by: Lamivudine (Epivir -) 300 mg PO DAILY [facility] Last Admin: 04/07/20 09:53 Dose: 300 mg Documented by: Multivitamins (Total B With C -) 1 each PO DAILY [facility] Last Admin: 04/07/20 09:49 Dose: 1 each Documented by: Oxycodone HCl (Roxicodone -) 5 mg PO BID PRN PRN Reason: PAIN LEVEL 6-10 Pyridoxine HCl (Vitamin B6 -) 25 mg PO BID [facility] Last Admin: 04/07/20 09:50 Dose: 25 mg Documented by: Ritonavir (Norvir -) 100 mg PO DAILY [facility] Last Admin: 04/07/20 09:54 Dose: 100 mg Documented by: Tiotropium [place] (Spiriva Respimat) 2 puff IH DAILY [facility] Last Admin: 04/07/20 10:02 Dose: 2 puff Documented by: Valacyclovir HCl (Valtrex -) 1,000 mg PO BID [facility] Last Admin: 04/07/20 09:48 Dose: 1,000 mg Documented by: Zolpidem Tartrate (Ambien -) 10 mg PO HS PRN PRN Reason: INSOMNIA Last Admin: 04/06/20 22:29 Dose: 10 mg Documented by: - Objective Vital Signs: Vital Signs Temperature 97.6 F 04/07/20 09:14 Pulse Rate 66 04/07/20 09:14 Respiratory Rate 18 04/07/20 09:14 Blood Pressure 96/54 L 04/07/20 09:14 O2 Sat by Pulse Oximetry (%) 98 04/07/20 09:14 Constitutional: Yes: No Distress Eyes: Yes: Conjunctiva Clear Cardiovascular: Yes: Regular Rate and Rhythm, S1, S2 Respiratory: Yes: CTA Bilaterally Gastrointestinal: Yes: Normal Bowel Sounds, Soft Labs: CBC, BMP 04/07/20 08:37 04/07/20 08:37 INR, PTT INR 1.13 (0.83-1.09) H 04/05/20 14:47 Assessment/Plan DIARRHEA NEUTROPENIA HIV+ CONTINUE CEFEPIME/FLAGYL
--- NOTE | 2020-04-07 20:06 | PN ---
Physical Exam: SUBJECTIVE: Patient seen and examined O/N: had diarrhea x4 in evening then x2 in AM Denies abd pain, has some nausea and dizziness. Has mild appetite. Denies vomiting. Thinks that she feels better overall from yesterday. Denies pain at her groin from her genital herpes outbreak OBJECTIVE: Vital Signs Period Temp Pulse Resp BP Sys/[place] Pulse Ox Last 24 Hr 97.6 F-98.6 F 60-66 18-20 96-100/54-58 95-98 GENERAL: The patient is awake, alert, and fully oriented, in no acute distress. HEENT: Normal with no signs of trauma. No ptosis. MMM LUNGS: CTABL, no accessory muscle use. HEART: Regular rate and rhythm, S1, S2 without murmur, rub or gallop. ABDOMEN: Soft, nontender, nondistended, normoactive bowel sounds, no guarding, no rebound EXTREMITIES: 2+ pulses, warm, well-perfused, no edema. NEUROLOGICAL: Normal speech, gait not observed. PSYCH: Normal mood, normal affect. Laboratory Results - last 24 hr 04/07/20 04/07/20 08:37 08:37 WBC 2.1 L RBC 4.42 Hgb 12.2 Hct 37.5 MCV 84.9 MCH 27.5 MCHC 32.4 RDW 14.4 Plt Count 178 MPV 9.0 Absolute Neuts (auto) 0.6 L Neutrophils % 30.1 L D Lymphocytes % 59.3 H D Monocytes % 9.7 Eosinophils % 0.3 D Basophils % 0.6 Nucleated RBC % 0 Sodium 142 Potassium 3.4 L Chloride 110 H Carbon Dioxide 26 Anion Gap 6 L BUN 10.9 Creatinine 1.1 Est GFR (CKD-EPI)AfAm 61.88 Est GFR (CKD-EPI)NonAf 53.39 Random Glucose 109 H Calcium 8.6 Phosphorus 2.8 Magnesium 2.3 Total Bilirubin 0.6 AST 78 H ALT 36 Alkaline Phosphatase 71 Total Protein 8.1 Albumin 3.4 Active Medications Generic Name Dose Route Start Last Admin Trade Name Freq PRN Reason Stop Dose Admin Abacavir Sulfate 600 mg 04/07/20 10:00 04/07/20 09:50 Ziagen - PO 600 mg DAILY SHERI Administration Acetaminophen 325 mg 04/06/20 17:29 Tylenol - PO BID PRN PAIN LEVEL 6-10 Albuterol Sulfate 2 puff 04/06/20 00:00 04/07/20 17:53 Ventolin Hfa Inhaler - IH 2 puff Q6HPO SHERI Administration Albuterol/Ipratropium 1 amp 04/06/20 13:32 04/07/20 11:38 Duoneb - NEB 1 amp Q6H PRN Administration SHORTNESS OF BREATH Budesonide/Formoterol Fumarate 2 puff 04/06/20 13:45 04/07/20 10:02 Symbicort 160/4.5mcg - IH 2 puff BID SHERI Administration Bupropion HCl 200 mg 04/07/20 10:00 04/07/20 09:50 Wellbutrin - PO 200 mg DAILY SHERI Administration Cholecalciferol 2,000 unit 04/07/20 10:00 04/07/20 09:48 Vitamin D3 - PO 2,000 unit DAILY SHERI Administration Darunavir 800 mg 04/07/20 10:00 04/07/20 09:53 Prezista - PO 800 mg DAILY SHERI Administration Enoxaparin Sodium 30 mg 04/06/20 10:00 04/07/20 10:00 Lovenox - SQ Not Given DAILY SHERI Gabapentin 300 mg 04/06/20 22:00 04/07/20 09:48 Neurontin - PO 300 mg BID SHERI Administration Cefepime HCl 1 gm/ Dextrose 50 mls @ 100 mls/hr 04/06/20 18:00 04/07/20 17:50 IVPB 100 mls/hr Q8H-IV SHERI Administration Protocol Metronidazole 500 mg in 100 mls @ 100 mls/hr 04/06/20 14:00 04/07/20 18:19 Flagyl 500mg Premixed Ivpb - IVPB 100 mls/hr Q8H-IV SHERI Administration Insulin Aspart 1 vial 04/05/20 22:00 04/07/20 17:51 Novolog Vial Sliding Scale - SQ Not Given ACHS SHERI Protocol Lamivudine 300 mg 04/07/20 10:00 04/07/20 09:53 Epivir - PO 300 mg DAILY SHERI Administration Multivitamins 1 each 04/06/20 17:30 04/07/20 09:49 Total B With C - PO 1 each DAILY SHERI Administration Oxycodone HCl 5 mg 04/06/20 17:45 Roxicodone - PO BID PRN PAIN LEVEL 6-10 Pyridoxine HCl 25 mg 04/06/20 22:00 04/07/20 09:50 Vitamin B6 - PO 25 mg BID SHERI Administration Ritonavir 100 mg 04/07/20 10:00 04/07/20 09:54 Norvir - PO 100 mg DAILY SHERI Administration Tiotropium [place] 2 puff 04/06/20 13:45 04/07/20 10:02 Spiriva Respimat IH 2 puff DAILY SHERI Administration Valacyclovir HCl 1,000 mg 04/06/20 14:00 04/07/20 09:48 Valtrex - PO 1,000 mg BID SHERI Administration Zolpidem Tartrate 10 mg 04/06/20 22:00 04/06/20 22:29 Ambien - PO 10 mg HS PRN Administration INSOMNIA ASSESSMENT/PLAN: 64 YO F PMH HTN, DM, HIV (CD4 count 254 on 02/14/20, adherent on HAART) p/w fever, chills, generalized weakness, diarrhea. On admission, had fever 100.7F, HR 101. Admitted for sepsis. Elevated Ddimer(3788) prompted w/u to r/o PE and DVT. Neg CTA, neg BLE duplex. #Sepsis 2/2 unknown etiology > CTAP no contrast: increased fluid within colon > COVID negative. blood cx negative -f/u UA, sputum cx, stool culture, stool WBCs, legionella antigen, crypto/gi ardia antigen, influenza A & B, AFB culture/smear -ID consulted(Adi): --abx regimen: cefepime 1 gm Q8H & metronidazole 500 mg Q8H #elevated D-dimer --chronic in nature, of unknown etiol ---PE and DVT r/o'd -CTA no PE; -vascular studies: no DVT #FELIZ on CKD 2/2 Hypovolemia from Diarrhea -c/w NS @125 ml/hr -improved. Cr downtrended from 1.6 to 1.1 #COPD -s/p 6 mg IV ONCE dexamethasone -symbicort BID and spiriva DAILY for copd exacerbation -duoneb Q6H PRN #HIV -c/w neutropenic precautions -ID c/s appreciated. -Lamivudine 300 mg PO Daily -ritnovair 100 mg PO Daily -Darunavir 800 mg PO daily #genital herpes outbreak - cw valtrex #Neuropathy 300 ng gabapentin PO BID #DM Hgb 7.8 ISS BGM #DVT PPX 30 mg SQ DAILY (renally dosed) #FEN -no IF -monitor lytes. Hyponatremia resolved. -neutropenic diet #DISPO maintain med surg Visit type - Emergency Visit Emergency Visit: No - New Patient This patient is new to me today: No - Critical Care Critical Care patient: No ATTENDING PHYSICIAN STATEMENT I saw and evaluated the patient. I reviewed the resident's note and discussed the case with the resident. I agree with the resident's findings and plan as documented. SUBJECTIVE: OBJECTIVE: ASSESSMENT AND PLAN:
[2020-04-08] MEDS: KCL 10 MEQ IVPB 10 MEQ/100 ML INFUS.BAG IVPB SCH
[2020-04-08] MEDS ORDERED: CEFEPIME HCL 1 GM VIAL (RESTRICTED TO ID) ONE ×3 (02:41→16:51)
[2020-04-08] MEDS ORDERED: DEXTROSE 5%-WATER - 50 ML IVPB ONE ×3 (02:41→16:52)
[2020-04-08] MEDS: CEFEPIME 1 GM in DEXTROSE 5%-WATER - 50 ML IVPB SCH ×4 (02:58→17:06)
[2020-04-08] MEDS: INSULIN SLIDING SCALE (NOVOLOG) 1 VIAL SQ SCH ×4 (06:39→22:38)
[2020-04-08] MEDS: ALBUTEROL SO4 HFA INHALER IH SCH ×4 (06:48→17:06)
[2020-04-08] MEDS ORDERED: PT OWN MED DRAWER 7, Y5N ONE (08:49)
[2020-04-08] MEDS: ENOXAPARIN NA (PORCINE) 30 MG/0.3 ML DISP.SYRIN SQ SCH (09:10)
[2020-04-08] MEDS: GABAPENTIN 300 MG CAPSULE PO SCH ×2 (09:11→22:53)
[2020-04-08] MEDS: valACYclovir HCL 500 MG TABLET (FP) PO SCH ×2 (09:11→22:53)
[2020-04-08] MEDS: CHOLECALCIFEROL (VIT D3) 1,000 UNIT (25 MCG) TABLET PO SCH (09:11)
[2020-04-08] MEDS: VITAMIN B COMPLEX W/C COMBO TABLET (FP) PO SCH (09:12)
[2020-04-08] MEDS: PYRIDOXINE HCL (B-6) 50 MG TABLET (FP) PO SCH (09:12)
[2020-04-08] MEDS: ABACAVIR SULFATE 300 MG TABLET PO SCH (09:13)
[2020-04-08] MEDS: buPROPion HCL 100 MG TABLET PO SCH (09:13)
[2020-04-08] MEDS: DARUNAVIR ETHANOLATE 800 MG TAB PO SCH (09:14)
[2020-04-08] MEDS: TIOTROPIUM BROMIDE 2.5 MCG (SPIRIVA) RESPIMAT INHALER IH SCH (09:14)
[2020-04-08] MEDS: BUDESONIDE/FORMETEROL FUMARATE 160/4.5 mcg INHALER IH SCH ×2 (09:14→22:53)
[2020-04-08] MEDS: RITONAVIR 100 MG TABLET PO SCH (09:14)
[2020-04-08 10:01] LABS: ALBUMIN 3.2 g/dl (3.4-5.0); BLOOD UREA NITROGEN 7.4 mg/dL (7-18); CALCIUM 8.5 mg/dL (8.5-10.1); MAGNESIUM 2.1 mg/dL (1.8-2.4); POTASSIUM 3.2 mmol/L (3.5-5.1)
[2020-04-08 10:05] LABS: CREATININE 0.9 mg/dL (0.55-1.3); PHOSPHOROUS 2.8 mg/dL (2.5-4.9); TOT PROT 7.5 g/dl (6.4-8.2)
[2020-04-08 10:25] LABS: BILIRUBIN,TOTAL 0.3 mg/dL (0.2-1)
[2020-04-08 13:07] LABS: BASO % 0.5 % (0-2.0); EOS % 0.6 % (0-4.5); HEMOGLOBIN 10.9 GM/dL (10.7-15.3); LYMPH % 48.7 % (8-40); MCHC 32.2 g/dl (32.0-36.0); MEAN PLT VOLUME 8.9 fl (7.5-11.1); MONO % 14.8 % (3.8-10.2); NEUT % 35.4 % (42.8-82.8); PLATELET COUNT 178 K/MM3 (134-434); RBC 4.05 M/mm3 (3.60-5.2); RDW 14.4 % (11.6-15.6); WHITE BLOOD COUNT 2.5 K/mm3 (4.0-10.0)
[2020-04-08 13:44] LABS: ANISOCYTOSIS 1+; PLATELET ESTIMATE NORMAL
--- NOTE | 2020-04-08 14:49 | PN ---
Progress Note (short form) - Note Progress Note: SUBJECTIVE: Diarrhea improving but still loose/frequent. No melena/hematochezia. No further fever. OBJECTIVE: Fever resolved, Hemodynamically Stable. Last Vital Signs Temp Pulse Resp BP Pulse Ox 97.7 F 80 18 103/63 98 04/08/20 14:20 04/08/20 14:20 04/08/20 14:20 04/08/20 14:20 04/08/20 14:20 Heart - S1, S2, RRR Lungs - clear to auscultation. Abdomen - soft, non-tender. Bowel Sounds normal. Extremities - no edema, no calf tenderness. Neuro - AAO x 3. Tone/Power normal all extremities. Laboratory Results - last 24 hr 04/08/20 04/08/20 08:52 12:16 WBC 2.5 L RBC 4.05 Hgb 10.9 Hct 34.0 MCV 84.0 MCH 27.0 MCHC 32.2 RDW 14.4 Plt Count 178 MPV 8.9 Absolute Neuts (auto) 0.9 L Neutrophils % 35.4 L Neutrophils % (Manual) 27.4 L Band Neutrophils % 1.0 Lymphocytes % 48.7 H Lymphocytes % (Manual) 55.8 H D Monocytes % 14.8 H Monocytes % (Manual) 12 H Eosinophils % 0.6 D Eosinophils % (Manual) 2.1 D Basophils % 0.5 Basophils % (Manual) 0.0 Myelocytes % (Man) 0 Promyelocytes % (Man) 0 Blast Cells % (Manual) 0 Nucleated RBC % 0 Metamyelocytes 0 Hypochromia 0 Platelet Estimate Normal Polychromasia 0 Poikilocytosis 0 Anisocytosis 1+ Microcytosis 1+ Sodium 142 Potassium 3.2 L Chloride 112 H Carbon Dioxide 22 Anion Gap 8 BUN 7.4 Creatinine 0.9 Est GFR (CKD-EPI)AfAm 78.87 Est GFR (CKD-EPI)NonAf 68.05 Random Glucose 109 H Calcium 8.5 Phosphorus 2.8 Magnesium 2.1 Total Bilirubin 0.3 AST 59 H ALT 30 Alkaline Phosphatase 63 Total Protein 7.5 Albumin 3.2 L Current Medications Generic Name Dose Route Start Last Admin Trade Name Freq PRN Reason Stop Dose Admin Abacavir Sulfate 600 mg 04/07/20 10:00 04/08/20 09:13 Ziagen - PO 600 mg DAILY SHERI Administration Acetaminophen 325 mg 04/06/20 17:29 Tylenol - PO BID PRN PAIN LEVEL 6-10 Albuterol Sulfate 2 puff 04/06/20 00:00 04/08/20 11:21 Ventolin Hfa Inhaler - IH 2 puff Q6HPO SHERI Administration Albuterol/Ipratropium 1 amp 04/06/20 13:32 04/07/20 11:38 Duoneb - NEB 1 amp Q6H PRN Administration SHORTNESS OF BREATH Budesonide/Formoterol Fumarate 2 puff 04/06/20 13:45 04/08/20 09:14 Symbicort 160/4.5mcg - IH 2 puff BID SHERI Administration Bupropion HCl 200 mg 04/07/20 10:00 04/08/20 09:13 Wellbutrin - PO 200 mg DAILY SHERI Administration Cholecalciferol 2,000 unit 04/07/20 10:00 04/08/20 09:11 Vitamin D3 - PO 2,000 unit DAILY SHERI Administration Darunavir 800 mg 04/07/20 10:00 04/08/20 09:14 Prezista - PO 800 mg DAILY SHERI Administration Enoxaparin Sodium 30 mg 04/06/20 10:00 04/08/20 09:10 Lovenox - SQ Not Given DAILY SHERI Gabapentin 300 mg 04/06/20 22:00 04/08/20 09:11 Neurontin - PO 300 mg BID SHERI Administration Cefepime HCl 1 gm/ Dextrose 50 mls @ 100 mls/hr 04/06/20 18:00 04/08/20 10:46 IVPB 100 mls/hr Q8H-IV SHERI Administration Protocol Metronidazole 500 mg in 100 mls @ 100 mls/hr 04/06/20 14:00 04/08/20 10:46 Flagyl 500mg Premixed Ivpb - IVPB 100 mls/hr Q8H-IV SHERI Administration Insulin Aspart 1 vial 04/05/20 22:00 04/08/20 11:21 Novolog Vial Sliding Scale - SQ Not Given ACHS SHERI Protocol Lamivudine 300 mg 04/07/20 10:00 04/08/20 09:21 Epivir - PO Not Given DAILY SHERI Multivitamins 1 each 04/06/20 17:30 04/08/20 09:12 Total B With C - PO 1 each DAILY SHERI Administration Oxycodone HCl 5 mg 04/06/20 17:45 Roxicodone - PO BID PRN PAIN LEVEL 6-10 Potassium Chloride 40 meq 04/08/20 14:46 K-Dur - PO 04/10/20 14:45 BID SHERI Pyridoxine HCl 25 mg 04/06/20 22:00 04/08/20 09:12 Vitamin B6 - PO 25 mg BID SHERI Administration Ritonavir 100 mg 04/07/20 10:00 04/08/20 09:14 Norvir - PO 100 mg DAILY SHERI Administration Tiotropium [place] 2 puff 04/06/20 13:45 04/08/20 09:14 Spiriva Respimat IH 2 puff DAILY SHERI Administration Valacyclovir HCl 1,000 mg 04/06/20 14:00 04/08/20 09:11 Valtrex - PO 1,000 mg BID SHERI Administration Zolpidem Tartrate 10 mg 04/06/20 22:00 04/06/20 22:29 Ambien - PO 10 mg HS PRN Administration INSOMNIA Home Medications Medication Instructions Recorded Umeclidinium [place] [Incruse 62.5 mcg IH DAILY 01/03/20 Ellipta] Pyridoxine HCl (B-6) [Vitamin B6 -] 25 mg PO BID #56 tablet 01/06/20 Ergocalciferol (Vitamin D2) 2,000 unit PO DAILY #30 tablet 01/12/20 [Vitamin D2] Vitamin B Complex [B Complex] 1 each PO DAILY #30 tablet 02/14/20 Oxycodone HCl/Acetaminophen 1 each PO BID PRN #60 tablet MDD 2 03/13/20 [Endocet 5-325 Tablet] Abacavir Sulfate/Lamivudine 1 each PO DAILY #30 tablet 03/29/20 [Abacavir-Lamivudine 600-300 mg] Bupropion HCl [Bupropion HCl ER] 200 mg PO AM #30 tab.er.12h 03/29/20 Darunavir Ethanolate [Prezista -] 800 mg PO DAILY #30 tablet 03/29/20 Gabapentin [Neurontin -] 300 mg PO Q12H #60 cap 03/29/20 Ritonavir [Norvir -] 100 mg PO DAILY #30 tab 03/29/20 Valacyclovir HCl [Valtrex -] 500 mg PO BID #60 tablet 07/23/20 Zolpidem Tartrate [Ambien] 10 mg PO HS #30 tablet MDD 1 03/29/20 ASSESSMENT AND PLAN: 61 year old female with history of HIV (last CD4 count 254, on HAART), HTN, HLD, DM 2, presents with fevers, chills, myalgias, fatigue for 1 week, with 1 day history of watery diarrhea. 1. Febrile Illness, etiology unclear with associated Neutropenia CXR/CT Chest - no consolidation Urine Cx pending Blood Cx negative COVID PCR negative Flu swab requested Diarrheal illness with dilated fluid filled bowel loops on CT - Stool Cdiff negative. Stool giardia/crypto negative. Vanco/Meropenem given in ED - currently neutropenic, to continue empiric Cefepime and Flagyl pending further ID eval. Neutropenia improving. 2. HIV on HAART - resumed by ID. Hx HSV with current outbreak - on Valacyclovir 3. Elevated DDIMER - appears chronic CTA Chest - no PE Duplex LEs - no DVT. 4. FELIZ sec to dehydration - resolved with IV hydration. 5. Hx Neuropathy - normally on Gabapentin. 6. COPD - resumed on Spiriva and Symbicort with standing DuoNebs. Advised against Prednisone by ID due to prior general adverse effects 7. Hypokalemia - repleted. DVT Px - Lovenox SQ Visit type - Emergency Visit Emergency Visit: Yes ED Registration Date: 04/05/20 Care time: The patient presented to the Emergency Department on the above date and was hospitalized for further evaluation of their emergent condition. - New Patient This patient is new to me today: No - Critical Care Critical Care patient: No - Discharge Referral Referred to [facility] No
[2020-04-08] MEDS: POTASSIUM CHLORIDE TABS 20 MEQ TABLET.ER (FP) PO SCH ×2 (15:01→23:05)
--- NOTE | 2020-04-08 17:47 | PN ---
Progress Note, Physician History of Present Illness: FEELING BETTER TEMPS REMAIN DOWN AFEBRILE DIARRHEA, GENERALIZED WEAKNESS IMPROVED AFEBRILE WBC IMPROVED - Current Medication List Current Medications: Active Medications Abacavir Sulfate (Ziagen -) 600 mg PO DAILY [facility] Last Admin: 04/08/20 09:13 Dose: 600 mg Documented by: Acetaminophen (Tylenol -) 325 mg PO BID PRN PRN Reason: PAIN LEVEL 6-10 Albuterol Sulfate (Ventolin Hfa Inhaler -) 2 puff IH Q6HPO [facility] Last Admin: 04/08/20 17:06 Dose: Not Given Documented by: Albuterol/Ipratropium (Duoneb -) 1 amp NEB Q6H PRN PRN Reason: SHORTNESS OF BREATH Last Admin: 04/07/20 11:38 Dose: 1 amp Documented by: Budesonide/Formoterol Fumarate (Symbicort 160/4.5mcg -) 2 puff IH BID [facility] Last Admin: 04/08/20 09:14 Dose: 2 puff Documented by: Bupropion HCl (Wellbutrin -) 200 mg PO DAILY [facility] Last Admin: 04/08/20 09:13 Dose: 200 mg Documented by: Cholecalciferol (Vitamin D3 -) 2,000 unit PO DAILY [facility] Last Admin: 04/08/20 09:11 Dose: 2,000 unit Documented by: Darunavir (Prezista -) 800 mg PO DAILY [facility] Last Admin: 04/08/20 09:14 Dose: 800 mg Documented by: Enoxaparin Sodium (Lovenox -) 30 mg SQ DAILY [facility] Last Admin: 04/08/20 09:10 Dose: Not Given Documented by: Gabapentin (Neurontin -) 300 mg PO BID [facility] Last Admin: 04/08/20 09:11 Dose: 300 mg Documented by: Cefepime HCl 1 gm/ Dextrose 50 mls @ 100 mls/hr IVPB Q8H-IV [facility]; Protocol Last Admin: 04/08/20 17:06 Dose: 100 mls/hr Documented by: Metronidazole (Flagyl 500mg Premixed Ivpb -) 500 mg in 100 mls @ 100 mls/hr IVPB Q8H-IV [facility] Last Admin: 04/08/20 17:06 Dose: 100 mls/hr Documented by: Insulin Aspart (Novolog Vial Sliding Scale -) 1 vial SQ ACHS [facility]; Protocol Last Admin: 04/08/20 15:29 Dose: Not Given Documented by: Lamivudine (Epivir -) 300 mg PO DAILY [facility] Last Admin: 04/08/20 09:21 Dose: Not Given Documented by: Multivitamins (Total B With C -) 1 each PO DAILY [facility] Last Admin: 04/08/20 09:12 Dose: 1 each Documented by: Oxycodone HCl (Roxicodone -) 5 mg PO BID PRN PRN Reason: PAIN LEVEL 6-10 Potassium Chloride (K-Dur -) 40 meq PO BID [facility] Stop: 04/08/20 22:01 Last Admin: 04/08/20 15:01 Dose: 40 meq Documented by: Pyridoxine HCl (Vitamin B6 -) 25 mg PO BID [facility] Last Admin: 04/08/20 09:12 Dose: 25 mg Documented by: Ritonavir (Norvir -) 100 mg PO DAILY [facility] Last Admin: 04/08/20 09:14 Dose: 100 mg Documented by: Tiotropium [place] (Spiriva Respimat) 2 puff IH DAILY [facility] Last Admin: 04/08/20 09:14 Dose: 2 puff Documented by: Valacyclovir HCl (Valtrex -) 1,000 mg PO BID [facility] Last Admin: 04/08/20 09:11 Dose: 1,000 mg Documented by: Zolpidem Tartrate (Ambien -) 10 mg PO HS PRN PRN Reason: INSOMNIA Last Admin: 04/06/20 22:29 Dose: 10 mg Documented by: - Objective Vital Signs: Vital Signs Temperature 97.7 F 04/08/20 14:20 Pulse Rate 80 04/08/20 14:20 Respiratory Rate 18 04/08/20 14:20 Blood Pressure 103/63 04/08/20 14:20 O2 Sat by Pulse Oximetry (%) 98 04/08/20 14:20 Constitutional: Yes: No Distress Eyes: Yes: Conjunctiva Clear Cardiovascular: Yes: Regular Rate and Rhythm, S1, S2 Respiratory: Yes: CTA Bilaterally Gastrointestinal: Yes: Normal Bowel Sounds, Soft Labs: CBC, BMP 04/08/20 12:16 04/08/20 08:52 INR, PTT INR 1.13 (0.83-1.09) H 04/05/20 14:47 Assessment/Plan DIARRHEA IMPROVED NEUTROPENIA HIV+ CONTINUE CEFEPIME/FLAGYL
[2020-04-08] MEDS: ZOLPIDEM TARTRATE 5 MG TABLET PO PRN (22:53)
[2020-04-08] MEDS: ALBUTEROL SO4 2.5/IPRATROPIUM 0.5 INH SOL 3 ML VIAL.NEB. NEB PRN (23:09)
[2020-04-09] MEDS: PYRIDOXINE HCL (B-6) 50 MG TABLET (FP) PO SCH ×3 (00:07→21:23)
[2020-04-09] MEDS: ALBUTEROL SO4 HFA INHALER IH SCH ×4 (00:07→18:54)
[2020-04-09] MEDS ORDERED: DEXTROSE 5%-WATER - 50 ML IVPB ONE ×2 (03:21→09:12)
[2020-04-09] MEDS ORDERED: CEFEPIME HCL 1 GM VIAL (RESTRICTED TO ID) ONE ×2 (03:21→09:12)
[2020-04-09] MEDS: CEFEPIME 1 GM in DEXTROSE 5%-WATER - 50 ML IVPB SCH ×2 (03:23→09:15)
[2020-04-09] MEDS: INSULIN SLIDING SCALE (NOVOLOG) 1 VIAL SQ SCH ×4 (06:56→21:24)
[2020-04-09] MEDS: valACYclovir HCL 500 MG TABLET (FP) PO SCH ×2 (09:13→21:23)
[2020-04-09] MEDS: GABAPENTIN 300 MG CAPSULE PO SCH ×2 (09:13→21:23)
[2020-04-09] MEDS: ENOXAPARIN NA (PORCINE) 30 MG/0.3 ML DISP.SYRIN SQ SCH (09:16)
[2020-04-09] MEDS: BUDESONIDE/FORMETEROL FUMARATE 160/4.5 mcg INHALER IH SCH ×2 (09:19→21:24)
[2020-04-09] MEDS: TIOTROPIUM BROMIDE 2.5 MCG (SPIRIVA) RESPIMAT INHALER IH SCH (09:19)
[2020-04-09] MEDS ORDERED: PT OWN MED DRAWER 7, Y5N ONE (09:20)
[2020-04-09] MEDS: buPROPion HCL 100 MG TABLET PO SCH (09:21)
[2020-04-09] MEDS: VITAMIN B COMPLEX W/C COMBO TABLET (FP) PO SCH (09:22)
[2020-04-09] MEDS: DARUNAVIR ETHANOLATE 800 MG TAB PO SCH (09:24)
[2020-04-09] MEDS: RITONAVIR 100 MG TABLET PO SCH (09:25)
[2020-04-09] MEDS: CHOLECALCIFEROL (VIT D3) 1,000 UNIT (25 MCG) TABLET PO SCH (09:25)
[2020-04-09] MEDS: ABACAVIR SULFATE 300 MG TABLET PO SCH (09:25)
[2020-04-09] MEDS: ALBUTEROL SO4 2.5/IPRATROPIUM 0.5 INH SOL 3 ML VIAL.NEB. NEB PRN ×2 (09:39→20:52)
[2020-04-09 11:33] LABS: BASO % 0.3 % (0-2.0); EOS % 0.7 % (0-4.5); HEMATOCRIT 33.7 % (32.4-45.2); HEMOGLOBIN 10.8 GM/dL (10.7-15.3); LYMPH % 61.8 % (8-40); MCH 26.9 pg (25.7-33.7); MEAN PLT VOLUME 8.9 fl (7.5-11.1); MONO % 13.3 % (3.8-10.2); NEUT % 23.9 % (42.8-82.8); PLATELET COUNT 182 K/MM3 (134-434); RBC 4.01 M/mm3 (3.60-5.2); RDW 14.8 % (11.6-15.6); WHITE BLOOD COUNT 2.8 K/mm3 (4.0-10.0)
[2020-04-09 12:07] LABS: CALCIUM 8.5 mg/dL (8.5-10.1); CREATININE 0.9 mg/dL (0.55-1.3)
[2020-04-09 12:46] LABS: ANISOCYTOSIS 0; MACROCYTOSIS 0; PLATELET ESTIMATE NORMAL
--- NOTE | 2020-04-09 12:58 | PN ---
Progress Note (short form) - Note Progress Note: explosive diarrhea all over the bathroom this am no fevers since admission cultures are negative still some wheezing Vital Signs Period Temp Pulse Resp BP Sys/[place] Pulse Ox Last 24 Hr 97.3 F-98.0 F 70-78 18-20 100-123/58-85 95-100 cor-rrr llungs scattered wheeze abd soft,nt ext no edema CBC, BMP 04/09/20 10:21 04/09/20 10:21 Microbiology 04/06/20 16:00 Stool Gram Stain - Final 04/06/20 16:00 Stool Salmonella/Shigella Culture - Final NO GROWTH OF SALMONELLA OR SHIGELLA SPECIES OBTAINED 04/06/20 16:00 Stool Campylobacter Culture - Final NO GROWTH OF CAMPYLOBACTER SPECIES OBTAINED 04/06/20 16:00 Stool Yersinia Culture - Final NO GROWTH OF YERSINIA SPECIES OBTAINED 04/06/20 16:00 Stool Vibrio Culture - Final NO GROWTH OF VIBRIO SPECIES OBTAINED 04/06/20 16:00 Stool Escherichia coli 0157 Culture - Final NO GROWTH OF E COLI 0157 OBTAINED 04/06/20 16:00 Stool AFB Smear Concentration - Preliminary 04/06/20 16:00 Stool Mycobacterial Culture - Preliminary 04/05/20 14:47 Blood - Peripheral Venous Blood Culture - Preliminary NO GROWTH OBTAINED AFTER 72 HOURS, INCUBATION TO CONTINUE FOR 2 DAYS. 04/05/20 14:47 Blood - Peripheral Venous Blood Culture - Preliminary NO GROWTH OBTAINED AFTER 72 HOURS, INCUBATION TO CONTINUE FOR 2 DAYS. 04/06/20 17:29 Urine - Urine Clean Catch Urine Culture - Final NO GROWTH OBTAINED 04/05/20 16:00 Stool Clostridioides difficile Antigen - Final 04/05/20 16:00 Stool Clostridioides difficile Toxin Assay - Final 04/06/20 16:00 Stool Cryptosporidium Antigen - Final 04/06/20 16:00 Stool Giardia Antigen ([place]) - Final a/p fevers-resolved, d/c antibiotics diarrhea- persistent, GI eval? hsv-on valtrex cough-copd neutropenia-imrproving HIV-continue art hypokalemia-agreeable to po KCL covid negative neutropenic precautions d/w hospitalist Problem List - Problems (1) Fever Code(s): R50.9 - FEVER, UNSPECIFIED Qualifiers: Fever type: unspecified Qualified Code(s): R50.9 - Fever, unspecified (2) Diarrhea Code(s): R19.7 - DIARRHEA, UNSPECIFIED Qualifiers: Diarrhea type: unspecified type Qualified Code(s): R19.7 - Diarrhea, unspecified (3) Neutropenia Code(s): D70.9 - NEUTROPENIA, UNSPECIFIED (4) Recurrent genital HSV (herpes simplex virus) infection Code(s): A60.00 - HERPESVIRAL INFECTION OF UROGENITAL SYSTEM, UNSPECIFIED (5) HIV (human immunodeficiency virus infection) Code(s): Z21 - ASYMPTOMATIC HUMAN IMMUNODEFICIENCY VIRUS INFECTION STATUS Qualifiers: HIV symptom status: symptomatic Qualified Code(s): B20 - Human immun odeficiency virus [HIV] disease (6) COPD (chronic obstructive pulmonary disease) Code(s): J44.9 - CHRONIC OBSTRUCTIVE PULMONARY DISEASE, UNSPECIFIED
[2020-04-09] MEDS: POTASSIUM CHLORIDE ORAL LIQUID 20 MEQ/15 ML PO SCH ×2 (13:37→21:24)
--- NOTE | 2020-04-09 16:25 | PN ---
Teaching Attending Note Name of Resident: David Lopez ATTENDING PHYSICIAN STATEMENT I saw and evaluated the patient. I reviewed the resident's note and discussed the case with the resident. I agree with the resident's findings and plan as documented. SUBJECTIVE: Explosive Diarrheal epsiode this AM. No abdominal pain/nausea/vomiting/melena/hematochezia. No further fever. OBJECTIVE: Fever resolved, Hemodynamically Stable. Last Vital Signs Temp Pulse Resp BP Pulse Ox 98.3 F 77 20 120/75 100 04/09/20 14:38 04/09/20 14:38 04/09/20 14:38 04/09/20 14:38 04/09/20 10:00 Heart - S1, S2, RRR Lungs - some scattered wheeze. Abdomen - soft, non-tender. Bowel Sounds normal. Extremities - no edema, no calf tenderness. Neuro - AAO x 3. Tone/Power normal all extremities. Laboratory Results - last 24 hr 04/09/20 04/09/20 10:21 10:21 WBC 2.8 L RBC 4.01 Hgb 10.8 Hct 33.7 MCV 84.0 MCH 26.9 MCHC 32.0 RDW 14.8 Plt Count 182 MPV 8.9 Absolute Neuts (auto) 0.7 L Neutrophils % 23.9 L D Neutrophils % (Manual) 29.8 L Band Neutrophils % 3.2 Lymphocytes % 61.8 H D Lymphocytes % (Manual) 44.7 H Monocytes % 13.3 H Monocytes % (Manual) 11 H Eosinophils % 0.7 Eosinophils % (Manual) 0.0 D Basophils % 0.3 Basophils % (Manual) 1.1 D Myelocytes % (Man) 0 Promyelocytes % (Man) 0 Blast Cells % (Manual) 0 Nucleated RBC % 0 Metamyelocytes 0 Hypochromia 0 Platelet Estimate Normal Polychromasia 0 Poikilocytosis 0 Anisocytosis 0 Microcytosis 0 Macrocytosis 0 Sodium 144 Potassium 3.0 L Chloride 112 H Carbon Dioxide 23 Anion Gap 10 BUN 4.0 L Creatinine 0.9 Est GFR (CKD-EPI)AfAm 78.87 Est GFR (CKD-EPI)NonAf 68.05 Random Glucose 108 H Calcium 8.5 Current Medications Generic Name Dose Route Start Last Admin Trade Name Freq PRN Reason Stop Dose Admin Abacavir Sulfate 600 mg 04/07/20 10:00 04/09/20 09:25 Ziagen - PO 600 mg DAILY SHERI Administration Acetaminophen 325 mg 04/06/20 17:29 Tylenol - PO BID PRN PAIN LEVEL 6-10 Albuterol Sulfate 2 puff 04/06/20 00:00 04/09/20 12:46 Ventolin Hfa Inhaler - IH 2 puff Q6HPO SHERI Administration Albuterol/Ipratropium 1 amp 04/06/20 13:32 04/09/20 09:39 Duoneb - NEB 1 amp Q6H PRN Administration SHORTNESS OF BREATH Budesonide/Formoterol Fumarate 2 puff 04/06/20 13:45 04/09/20 09:19 Symbicort 160/4.5mcg - IH 2 puff BID SHERI Administration Bupropion HCl 200 mg 04/07/20 10:00 04/09/20 09:21 Wellbutrin - PO 200 mg DAILY SHERI Administration Cholecalciferol 2,000 unit 04/07/20 10:00 04/09/20 09:25 Vitamin D3 - PO 2,000 unit DAILY SHERI Administration Darunavir 800 mg 04/07/20 10:00 04/09/20 09:24 Prezista - PO 800 mg DAILY SHERI Administration Enoxaparin Sodium 30 mg 04/06/20 10:00 04/09/20 09:16 Lovenox - SQ Not Given DAILY SHERI Gabapentin 300 mg 04/06/20 22:00 04/09/20 09:13 Neurontin - PO 300 mg BID SHERI Administration Insulin Aspart 1 vial 04/05/20 22:00 04/09/20 10:22 Novolog Vial Sliding Scale - SQ Not Given ACHS [facility] Protocol Lamivudine 300 mg 04/07/20 10:00 04/09/20 09:25 Epivir - PO 300 mg DAILY SHERI Administration Multivitamins 1 each 04/06/20 17:30 04/09/20 09:22 Total B With C - PO 1 each DAILY SHERI Administration Oxycodone HCl 5 mg 04/06/20 17:45 Roxicodone - PO BID PRN PAIN LEVEL 6-10 Potassium Chloride 40 meq 04/09/20 13:45 04/09/20 13:37 Potassium Chloride Oral Liquid PO 40 meq BID SHERI Administration Pyridoxine HCl 25 mg 04/06/20 22:00 08/03/20 09:22 Vitamin B6 - PO 25 mg BID SHERI Administration Ritonavir 100 mg 04/07/20 10:00 04/09/20 09:25 Norvir - PO 100 mg DAILY SHERI Administration Tiotropium [place] 2 puff 04/06/20 13:45 04/09/20 09:19 Spiriva Respimat IH 2 puff DAILY SHERI Administration Valacyclovir HCl 1,000 mg 04/06/20 14:00 04/09/20 09:13 Valtrex - PO 1,000 mg BID SHERI Administration Zolpidem Tartrate 10 mg 04/06/20 22:00 04/08/20 22:53 Ambien - PO 10 mg HS PRN Administration INSOMNIA Home Medications Medication Instructions Recorded Umeclidinium [place] [Incruse 62.5 mcg IH DAILY 01/03/20 Ellipta] Pyridoxine HCl (B-6) [Vitamin B6 -] 25 mg PO BID #56 tablet 01/06/20 Ergocalciferol (Vitamin D2) 2,000 unit PO DAILY #30 tablet 01/12/20 [Vitamin D2] Vitamin B Complex [B Complex] 1 each PO DAILY #30 tablet 02/14/20 Oxycodone HCl/Acetaminophen 1 each PO BID PRN #60 tablet MDD 2 03/13/20 [Endocet 5-325 Tablet] Abacavir Sulfate/Lamivudine 1 each PO DAILY #30 tablet 03/29/20 [Abacavir-Lamivudine 600-300 mg] Bupropion HCl [Bupropion HCl ER] 200 mg PO AM #30 tab.er.12h 03/29/20 Darunavir Ethanolate [Prezista -] 800 mg PO DAILY #30 tablet 03/29/20 Gabapentin [Neurontin -] 300 mg PO Q12H #60 cap 03/29/20 Ritonavir [Norvir -] 100 mg PO DAILY #30 tab 03/29/20 Valacyclovir HCl [Valtrex -] 500 mg PO BID #60 tablet 03/29/20 Zolpidem Tartrate [Ambien] 10 mg PO HS #30 tablet MDD 1 03/29/20 Darunavir Ethanolate [Prezista] 800 mg PO DAILY 04/09/20 Methocarbamol [Robaxin -] 500 mg PO BID 04/09/20 ASSESSMENT AND PLAN: 61 year old female with history of HIV (last CD4 count 254, on HAART), HTN, HLD, DM 2, presents with fevers, chills, myalgias, fatigue for 1 week, with 1 day history of watery diarrhea. 1. Febrile Illness, etiology unclear with associated Neutropenia - fever resolved, neutropenia improving. CXR/CT Chest - no consolidation Urine Cx negative Blood Cx negative COVID PCR negative Diarrheal illness with dilated fluid filled bowel loops on CT - Stool Cdiff negative. Stool giardia/crypto negative. Vanco/Meropenem given in ED - currently neutropenic, received 3 days empiric Cefepime and Flagyl - now stopped as per ID.. GI consult for intractable diarrhea. 2. HIV on HAART - resumed by ID. Hx HSV with current outbreak - on Valacyclovir 3. Elevated DDIMER - appears chronic CTA Chest - no PE Duplex LEs - no DVT. 4. FELIZ sec to dehydration - resolved with IV hydration. 5. Hx Neuropathy - normally on Gabapentin. 6. COPD - resumed on Spiriva and Symbicort with standing DuoNebs. Advised against Prednisone by ID due to prior general adverse effects 7. Hypokalemia - recurrent, repleted. DVT Px - Lovenox SQ
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
[2020-04-09] MEDS: ZOLPIDEM TARTRATE 5 MG TABLET PO PRN (21:22)
--- NOTE | 2020-04-09 22:17 | PN ---
Physical Exam: SUBJECTIVE: Patient seen and examined. No complaints. Denies cough & chills. Denies diarrhea overnight. Endorses Fecal incontinence resolved. Explosive Diarrhea in late AM. Denies blood in stool. OBJECTIVE: Vital Signs Period Temp Pulse Resp BP Sys/Inman Pulse Ox Last 24 Hr 97.3 F-98.3 F 70-81 18-20 100-136/58-90 97-100 GENERAL: The patient is awake, alert, and fully oriented, in no acute distress. HEENT: Normal with no signs of trauma. No ptosis. MMM LUNGS: mild wheezing, no crackles, no accessory muscle use. HEART: Regular rate and rhythm, S1, S2 without murmur, rub or gallop. ABDOMEN: Soft, nontender, nondistended, normoactive bowel sounds, no guarding, no rebound EXTREMITIES: 2+ pulses, warm, well-perfused, no edema. Decreased sensation to palpation on Plantar and dorsal aspect of feet. NEUROLOGICAL: Normal speech, gait not observed. PSYCH: Normal mood, normal affect. Laboratory Results - last 24 hr 04/09/20 04/09/20 10:21 10:21 WBC 2.8 L RBC 4.01 Hgb 10.8 Hct 33.7 MCV 84.0 MCH 26.9 MCHC 32.0 RDW 14.8 Plt Count 182 MPV 8.9 Absolute Neuts (auto) 0.7 L Neutrophils % 23.9 L D Neutrophils % (Manual) 29.8 L Band Neutrophils % 3.2 Lymphocytes % 61.8 H D Lymphocytes % (Manual) 44.7 H Monocytes % 13.3 H Monocytes % (Manual) 11 H Eosinophils % 0.7 Eosinophils % (Manual) 0.0 D Basophils % 0.3 Basophils % (Manual) 1.1 D Myelocytes % (Man) 0 Promyelocytes % (Man) 0 Blast Cells % (Manual) 0 Nucleated RBC % 0 Metamyelocytes 0 Hypochromia 0 Platelet Estimate Normal Polychromasia 0 Poikilocytosis 0 Anisocytosis 0 Microcytosis 0 Macrocytosis 0 Sodium 144 Potassium 3.0 L Chloride 112 H Carbon Dioxide 23 Anion Gap 10 BUN 4.0 L Creatinine 0.9 Est GFR (CKD-EPI)AfAm 78.87 Est GFR (CKD-EPI)NonAf 68.05 Random Glucose 108 H Calcium 8.5 Active Medications Generic Name Dose Route Start Last Admin Trade Name Freq PRN Reason Stop Dose Admin Abacavir Sulfate 600 mg 04/07/20 10:00 04/09/20 09:25 Ziagen - PO 600 mg DAILY SHERI Administration Acetaminophen 325 mg 04/06/20 17:29 Tylenol - PO BID PRN PAIN LEVEL 6-10 Albuterol Sulfate 2 puff 04/06/20 00:00 04/09/20 18:54 Ventolin Hfa Inhaler - IH 2 puff Q6HPO SHERI Administration Albuterol/Ipratropium 1 amp 04/06/20 13:32 04/09/20 20:52 Duoneb - NEB 1 amp Q6H PRN Administration SHORTNESS OF BREATH Bisacodyl 20 mg 04/10/20 18:00 Dulcolax - PO 04/10/20 18:01 ONCE ONE Budesonide/Formoterol Fumarate 2 puff 04/06/20 13:45 04/09/20 21:24 Symbicort 160/4.5mcg - IH 2 puff BID SHERI Administration Bupropion HCl 200 mg 04/07/20 10:00 04/09/20 09:21 Wellbutrin - PO 200 mg DAILY SHERI Administration Cholecalciferol 2,000 unit 04/07/20 10:00 04/09/20 09:25 Vitamin D3 - PO 2,000 unit DAILY SHERI Administration Darunavir 800 mg 04/07/20 10:00 04/09/20 09:24 Prezista - PO 800 mg DAILY SHERI Administration Gabapentin 300 mg 04/06/20 22:00 04/09/20 21:23 Neurontin - PO 300 mg BID SHERI Administration Insulin Aspart 1 vial 04/05/20 22:00 04/09/20 21:24 Novolog Vial Sliding Scale - SQ Not Given ACHS [facility] Protocol Lamivudine 300 mg 04/07/20 10:00 04/09/20 09:25 Epivir - PO 300 mg DAILY SHERI Administration Multivitamins 1 each 04/06/20 17:30 04/09/20 09:22 Total B With C - PO 1 each DAILY SHERI Administration Polyethylene Glycol/Electrolytes 4,000 ml 04/10/20 09:00 Golytely Solution - PO 04/10/20 09:01 ONCE ONE Pyridoxine HCl 25 mg 04/06/20 22:00 04/09/20 21:23 Vitamin B6 - PO 25 mg BID SHERI Administration Ritonavir 100 mg 04/07/20 10:00 04/09/20 09:25 Norvir - PO 100 mg DAILY SHERI Administration Tiotropium [place] 2 puff 04/06/20 13:45 04/09/20 09:19 Spiriva Respimat IH 2 puff DAILY SHERI Administration Valacyclovir HCl 1,000 mg 04/06/20 14:00 04/09/20 21:23 Valtrex - PO 1,000 mg BID SHERI Administration ASSESSMENT/PLAN: Pt is 64 YO F PMH HTN, DM, HIV (CD4 count 254 on 02/14/20, adherent on HAART) p/w fever, chills, generalized weakness, diarrhea. Admitted for sepsis. #Sepsis 2/2 unknown etiology -COVID negative. blood cx negative, stool cx negative. crypto/giardia antigen negative -f/u UA, sputum cx,influenza A & Br -s/p vanc, meropenem in ED. d/c cefepime 1 gm Q8H & metronidazole 500 mg Q8H as per ID -CTA no PE; vascular studies: no DVT -CTAP no contrast: increased fluid within colon. legionella antigen, #Diarrhea -GI was consulted for her intractable diarrhea. -GI c/s appreciated. suggested that pt's episodes of N/V explosive diarrhea maybe 2/2 fecal impaction from gabapentin use. Colonoscopy was offered to pt for 04/11 conditional on her WBC & respiratory condition to r/o IBD, malignancy, & opportunistic infection -EGD will be repeated 2/2 PMH kitty's metaplasia on biopsy #FELIZ 2/2 dehydration -Resolved. improved w/ IVF. Cr 1.6 on admission. #COPD -s/p 6 mg IV ONCE dexamethasone -symbicort BID and spiriva DAILY for copd exacerbation -duoneb Q6H PRN #HIV -c/w neutropenic precautions -ID c/s appreciated. -Lamivudine 300 mg PO Daily -ritnovair 100 mg PO Daily -Darunavir 800 mg PO daily -HSV: c/w Valacyclovir #Neuropathy 300 ng gabapentin PO BID #DM Hgb 7.8 ISS BGM #HTN #DVT PPX 30 mg SQ DAILY (renally dosed) #FEN - NS @125 ml/hr -monitor lytes. Hyponatremia resolved. -neutropenic diet #DISPO maintain med surg Visit type - Emergency Visit Emergency Visit: Yes ED Registration Date: 04/05/20 Care time: The patient presented to the Emergency Department on the above date and was hospitalized for further evaluation of their emergent condition. - New Patient This patient is new to me today: No - Critical Care Critical Care patient: No ATTENDING PHYSICIAN STATEMENT I saw and evaluated the patient. I reviewed the resident's note and discussed the case with the resident. I agree with the resident's findings and plan as documented. SUBJECTIVE: OBJECTIVE: ASSESSMENT AND PLAN:
[2020-04-10] MEDS: ALBUTEROL SO4 HFA INHALER IH SCH ×4 (01:00→17:37)
[2020-04-10] MEDS: INSULIN SLIDING SCALE (NOVOLOG) 1 VIAL SQ SCH ×4 (06:02→21:56)
[2020-04-10 08:09] LABS: BASO % 0.6 % (0-2.0); EOS % 1.4 % (0-4.5); HEMATOCRIT 33.2 % (32.4-45.2); HEMOGLOBIN 10.7 GM/dL (10.7-15.3); LYMPH % 65.8 % (8-40); MCH 26.7 pg (25.7-33.7); MCHC 32.2 g/dl (32.0-36.0); MEAN PLT VOLUME 8.8 fl (7.5-11.1); MONO % 15.1 % (3.8-10.2); NEUT % 17.1 % (42.8-82.8); PLATELET COUNT 215 K/MM3 (134-434); RDW 14.8 % (11.6-15.6); WHITE BLOOD COUNT 3.3 K/mm3 (4.0-10.0)
[2020-04-10] MEDS: ALBUTEROL SO4 2.5/IPRATROPIUM 0.5 INH SOL 3 ML VIAL.NEB. NEB PRN ×2 (08:13→14:13)
[2020-04-10 08:36] LABS: ALBUMIN 3.2 g/dl (3.4-5.0); BILIRUBIN,TOTAL 0.4 mg/dL (0.2-1); BLOOD UREA NITROGEN 3.6 mg/dL (7-18); CALCIUM 8.3 mg/dL (8.5-10.1); CREATININE 0.8 mg/dL (0.55-1.3); POTASSIUM 3.8 mmol/L (3.5-5.1); TOT PROT 7.2 g/dl (6.4-8.2)
[2020-04-10] MEDS ORDERED: PEG 3350/NA SULF BICARB CL/KCL 4000 ML SOLN.RECON PO ONE (09:00)
[2020-04-10 10:10] LABS: ANISOCYTOSIS 0; MACROCYTOSIS 0; OVALOCYTE 1+; PLATELET ESTIMATE NORMAL
[2020-04-10] MEDS ORDERED: PT OWN MED DRAWER 7, Y5N ONE (10:23)
[2020-04-10] MEDS: valACYclovir HCL 500 MG TABLET (FP) PO SCH ×2 (10:32→21:31)
[2020-04-10] MEDS: CHOLECALCIFEROL (VIT D3) 1,000 UNIT (25 MCG) TABLET PO SCH (10:32)
[2020-04-10] MEDS: GABAPENTIN 300 MG CAPSULE PO SCH ×2 (10:32→21:31)
[2020-04-10] MEDS: lamiVUDine 150 MG TABLET PO SCH (10:32)
[2020-04-10] MEDS: DARUNAVIR ETHANOLATE 800 MG TAB PO SCH (10:32)
[2020-04-10] MEDS: PYRIDOXINE HCL (B-6) 50 MG TABLET (FP) PO SCH ×2 (10:33→21:31)
[2020-04-10] MEDS: VITAMIN B COMPLEX W/C COMBO TABLET (FP) PO SCH (10:33)
[2020-04-10] MEDS: RITONAVIR 100 MG TABLET PO SCH (10:33)
[2020-04-10] MEDS: buPROPion HCL 100 MG TABLET PO SCH (10:34)
[2020-04-10] MEDS: ABACAVIR SULFATE 300 MG TABLET PO SCH (10:34)
[2020-04-10] MEDS: BUDESONIDE/FORMETEROL FUMARATE 160/4.5 mcg INHALER IH SCH ×2 (10:38→21:33)
[2020-04-10] MEDS: TIOTROPIUM BROMIDE 2.5 MCG (SPIRIVA) RESPIMAT INHALER IH SCH (10:38)
[2020-04-10] MEDS ORDERED: D5-1/2NS+20 MEQ KCL - 20 MEQ/1,000 ML INFUS.BAG IV SCH (12:45)
--- NOTE | 2020-04-10 15:41 | PN ---
Teaching Attending Note Name of Resident: David Lopez ATTENDING PHYSICIAN STATEMENT I saw and evaluated the patient. I reviewed the resident's note and discussed the case with the resident. I agree with the resident's findings and plan as documented. SUBJECTIVE: Over the last 24 hours seen and examined at bedside. Patient has had no diarrhea over the past 24 hours. Hemodynamically stable.Pending colonoscopy tomorrow if medically stable OBJECTIVE: Last Vital Signs Temp Pulse Resp BP Pulse Ox 98.5 F 81 18 120/73 96 04/10/20 14:42 04/10/20 14:42 04/10/20 14:42 04/10/20 14:42 04/10/20 10:00 PE: Per resident note Labs/Imaging; reviewed ASSESSMENT AND PLAN: 61 year old female with history of HIV (last CD4 count 254, on HAART), HTN, HLD, DM 2, presents with fevers, chills, myalgias, fatigue for 1 week, with 1 day history of watery diarrhea. # Febrile Illness, etiology unclear with associated Neutropenia - fever resolved, neutropenia improving. CXR/CT Chest - no consolidation Urine Cx negative Blood Cx negative COVID PCR negative Diarrheal illness with dilated fluid filled bowel loops on CT - Stool Cdiff negative. Stool giardia/crypto negative. Vanco/Meropenem given in ED - received 3 days empiric Cefepime and Flagyl - now stopped as per ID.. GI consult for intractable diarrhea. #Hypernatremia -started on D5 1/2 NS # HIV on HAART - resumed by ID. Hx HSV with current outbreak - on Valacyclovir # Elevated DDIMER - appears chronic CTA Chest - no PE Duplex LEs - no DVT. # FELIZ sec to dehydration - resolved with IV hydration. # Hx Neuropathy - normally on Gabapentin. # COPD - resumed on Spiriva and Symbicort with standing DuoNebs. Advised against Prednisone by ID due to prior general adverse effects # Hypokalemia - recurrent, repleted. DVT Px - Lovenox SQ
--- NOTE | 2020-04-10 16:06 | PN ---
Progress Note (short form) - Note Progress Note: stil with diarrhea Vital Signs Period Temp Pulse Resp BP Sys/Inman Pulse Ox Last 24 Hr 97.5 F-98.5 F 71-93 18-20 114-136/73-90 95-100 cor-rrr lungs decreased bs at bases no wheezing abd soft,nt ext no edema CBC, BMP 04/10/20 06:45 04/10/20 06:45 Microbiology 04/05/20 14:47 Blood - Peripheral Venous Blood Culture - Final NO GROWTH AFTER 5 DAYS INCUBATION 04/05/20 14:47 Blood - Peripheral Venous Blood Culture - Final NO GROWTH AFTER 5 DAYS INCUBATION 04/06/20 16:00 Stool Gram Stain - Final 04/06/20 16:00 Stool Salmonella/Shigella Culture - Final NO GROWTH OF SALMONELLA OR SHIGELLA SPECIES OBTAINED 04/06/20 16:00 Stool Campylobacter Culture - Final NO GROWTH OF CAMPYLOBACTER SPECIES OBTAINED 04/06/20 16:00 Stool Yersinia Culture - Final NO GROWTH OF YERSINIA SPECIES OBTAINED 04/06/20 16:00 Stool Vibrio Culture - Final NO GROWTH OF VIBRIO SPECIES OBTAINED 04/06/20 16:00 Stool Escherichia coli 0157 Culture - Final NO GROWTH OF E COLI 0157 OBTAINED 04/06/20 16:00 Stool AFB Smear Concentration - Preliminary 04/06/20 16:00 Stool Mycobacterial Culture - Preliminary 04/06/20 17:29 Urine - Urine Clean Catch Urine Culture - Final NO GROWTH OBTAINED 04/05/20 16:00 Stool Clostridioides difficile Antigen - Final 04/05/20 16:00 Stool Clostridioides difficile Toxin Assay - Final 04/06/20 16:00 Stool Cryptosporidium Antigen - Final 04/06/20 16:00 Stool Giardia Antigen (JUSTINA) - Final a/p fevers-resolved diarrhea- persistent, endoscopy planned if anc improves over 1000 hsv-on valtrex cough-copd neutropenia-would ask hematology to see -she has had persistent neutropenia for last 6 months -?bone marrow HIV-continue art hypokalemia-agreeable to po KCL as need covid negative neutropenic precautions d/w hospitalist Problem List - Problems (1) Fever Code(s): R50.9 - FEVER, UNSPECIFIED Qualifiers: Fever type: unspecified Qualified Code(s): R50.9 - Fever, unspecified (2) Diarrhea Code(s): R19.7 - DIARRHEA, UNSPECIFIED Qualifiers: Diarrhea type: unspecified type Qualified Code(s): R19.7 - Diarrhea, u nspecified (3) Neutropenia Code(s): D70.9 - NEUTROPENIA, UNSPECIFIED (4) Recurrent genital HSV (herpes simplex virus) infection Code(s): A60.00 - HERPESVIRAL INFECTION OF UROGENITAL SYSTEM, UNSPECIFIED (5) HIV (human immunodeficiency virus infection) Code(s): Z21 - ASYMPTOMATIC HUMAN IMMUNODEFICIENCY VIRUS INFECTION STATUS Qualifiers: HIV symptom status: symptomatic Qualified Code(s): B20 - Human immunodeficiency virus [HIV] disease (6) COPD (chronic obstructive pulmonary disease) Code(s): J44.9 - CHRONIC OBSTRUCTIVE PULMONARY DISEASE, UNSPECIFIED
--- NOTE | 2020-04-10 16:58 | PN ---
Physical Exam: SUBJECTIVE: No overnight events. Patient seen and examined. No diarrhea overnight. Denies N/V. OBJECTIVE: Vital Signs Period Temp Pulse Resp BP Sys/Inman Pulse Ox Last 24 Hr 97.5 F-98.5 F 71-93 18-20 114-136/73-90 95-100 GENERAL: The patient is awake, alert, and fully oriented, in no acute distress. HEENT: Normal with no signs of trauma. No ptosis. MMM LUNGS: mild wheezing, no crackles, no accessory muscle use. HEART: Regular rate and rhythm, S1, S2 without murmur, rub or gallop. ABDOMEN: Soft, nontender, nondistended, normoactive bowel sounds, no guarding, no rebound EXTREMITIES: 2+ pulses, warm, well-perfused, no edema. Decreased sensation to palpation on Plantar and dorsal aspect of feet. NEUROLOGICAL: Normal speech, gait not observed. PSYCH: Normal mood, normal affect. Laboratory Results - last 24 hr 04/10/20 04/10/20 06:45 06:45 WBC 3.3 L RBC 4.00 Hgb 10.7 Hct 33.2 MCV 83.0 MCH 26.7 MCHC 32.2 RDW 14.8 Plt Count 215 MPV 8.8 Absolute Neuts (auto) 0.6 L Neutrophils % 17.1 L D Neutrophils % (Manual) 21.0 L Band Neutrophils % 0.0 Lymphocytes % 65.8 H Lymphocytes % (Manual) 56.0 H D Monocytes % 15.1 H Monocytes % (Manual) 16 H Eosinophils % 1.4 D Eosinophils % (Manual) 1.0 D Basophils % 0.6 Basophils % (Manual) 0.0 Myelocytes % (Man) 0 Promyelocytes % (Man) 0 Blast Cells % (Manual) 1 H D Nucleated RBC % 0 Metamyelocytes 0 Hypochromia 0 Platelet Estimate Normal Polychromasia 0 Poikilocytosis 0 Anisocytosis 0 Microcytosis 0 Macrocytosis 0 Ovalocytes 1+ Sodium 147 H Potassium 3.8 Chloride 116 H Carbon Dioxide 22 Anion Gap 10 BUN 3.6 L Creatinine 0.8 Est GFR (CKD-EPI)AfAm 90.94 Est GFR (CKD-EPI)NonAf 78.46 Random Glucose 89 Calcium 8.3 L Phosphorus 3.0 Magnesium 2.0 Total Bilirubin 0.4 AST 60 H ALT 34 Alkaline Phosphatase 65 Total Protein 7.2 Albumin 3.2 L Active Medications Generic Name Dose Route Start Last Admin Trade Name Freq PRN Reason Stop Dose Admin Abacavir Sulfate 600 mg 04/07/20 10:00 04/10/20 10:34 Ziagen - PO 600 mg DAILY SHERI Administration Acetaminophen 325 mg 04/06/20 17:29 Tylenol - PO BID PRN PAIN LEVEL 6-10 Albuterol Sulfate 2 puff 04/06/20 00:00 04/10/20 12:30 Ventolin Hfa Inhaler - IH 2 puff Q6HPO SHERI Administration Albuterol/Ipratropium 1 amp 04/06/20 13:32 04/10/20 14:13 Duoneb - NEB 1 amp Q6H PRN Administration SHORTNESS OF BREATH Bisacodyl 20 mg 04/12/20 18:00 Dulcolax - PO 04/12/20 18:01 ONCE ONE Budesonide/Formoterol Fumarate 2 puff 04/06/20 13:45 04/10/20 10:38 Symbicort 160/4.5mcg - IH 2 puff BID SHERI Administration Bupropion HCl 200 mg 04/07/20 10:00 04/10/20 10:34 Wellbutrin - PO 200 mg DAILY SHERI Administration Cholecalciferol 2,000 unit 04/07/20 10:00 04/10/20 10:32 Vitamin D3 - PO 2,000 unit DAILY SHERI Administration Darunavir 800 mg 04/07/20 10:00 04/10/20 10:32 Prezista - PO 800 mg DAILY SHERI Administration Gabapentin 300 mg 04/06/20 22:00 04/10/20 10:32 Neurontin - PO 300 mg BID SHERI Administration Potassium Chloride/Dextrose/Sod Cl 20 meq in 1,000 mls @ 100 mls/hr 04/10/20 12:45 04/10/20 14:29 D5-1/2ns+20 Meq Kcl - IV 04/11/20 00:44 100 mls/hr ASDIR SHERI Administration Insulin Aspart 1 vial 04/05/20 22:00 04/10/20 16:54 Novolog Vial Sliding Scale - SQ Not Given ACHS SHERI Protocol Lamivudine 300 mg 04/10/20 10:00 04/10/20 10:32 Epivir - PO 300 mg DAILY SHERI Administration Multivitamins 1 each 04/06/20 17:30 04/10/20 10:33 Total B With C - PO 1 each DAILY SHERI Administration Polyethylene Glycol/Electrolytes 4,000 ml 04/12/20 09:00 Golytely Solution - PO 04/12/20 09:01 ONCE ONE Pyridoxine HCl 25 mg 04/06/20 22:00 04/10/20 10:33 Vitamin B6 - PO 25 mg BID SHERI Administration Ritonavir 100 mg 04/07/20 10:00 04/10/20 10:33 Norvir - PO 100 mg DAILY SHERI Administration Tiotropium [place] 2 puff 04/06/20 13:45 04/10/20 10:38 Spiriva Respimat IH 2 puff DAILY SHERI Administration Valacyclovir HCl 1,000 mg 04/06/20 14:00 04/10/20 10:32 Valtrex - PO 1,000 mg BID SHERI Administration ASSESSMENT/PLAN: Pt is 64 YO F PMH HTN, DM, HIV (CD4 count 254 on 02/14/20, adherent on HAART) p/w fever, chills, generalized weakness, diarrhea. Admitted for sepsis. #Sepsis 2/2 unknown etiology -COVID negative. blood cx negative, stool cx negative. crypto/giardia antigen negative. legionella antigen, -f/u UA, sputum cx,influenza A & Br -s/p vanc, meropenem in ED. s/p cefepime 1 gm Q8H & metronidazole 500 mg Q8H as per ID -CTA no PE; vascular studies: no DVT -CTAP no contrast: increased fluid within colon. #Diarrhea -GI c/s appreciated. intractible diarrhea. suggested that pt's episodes of N/V explosive diarrhea maybe 2/2 fecal impaction from gabapentin use. -Dr. Almeida discussed with GI (Dr. Ruvalcaba) that colonoscopy is planned for inpatient on Thursday04/13/20. 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 improved w/ IVF. Cr 1.6 on admission. -D5 1/2 NS @100 ml/hr for 12 hrs #COPD -s/p 6 mg IV ONCE dexamethasone -symbicort BID and spiriva DAILY for copd exacerbation -duoneb Q6H PRN #HIV -c/w neutropenic precautions -ID c/s appreciated. -Lamivudine 300 mg PO Daily -ritnovair 100 mg PO Daily -Darunavir 800 mg PO daily -HSV: c/w Valacyclovir #Neuropathy 300 ng gabapentin PO BID #DM Hgb 7.8 ISS BGM #HTN #DVT PPX 30 mg SQ DAILY (renally dosed) #FEN -D5 1/2 NS @100 ml/hr for 12 hrs -monitor lytes. Hyponatremia resolved. -neutropenic diet #DISPO maintain med surg Visit type - Emergency Visit Emergency Visit: Yes ED Registration Date: 04/05/20 Care time: The patient presented to the Emergency Department on the above date and was hospitalized for further evaluation of their emergent condition. - New Patient This patient is new to me today: No - Critical Care Critical Care patient: No ATTENDING PHYSICIAN STATEMENT I saw and evaluated the patient. I reviewed the resident's note and discussed the case with the resident. I agree with the resident's findings and plan as documented. SUBJECTIVE: OBJECTIVE: ASSESSMENT AND PLAN:
[2020-04-10] MEDS ORDERED: BISACODYL 5 MG TABLET.DR (FP) PO ONE (18:00)
--- NOTE | 2020-04-10 19:54 | PN.GI ---
GI Progress Note Subjective: GI NOte: Prep for EGD and colonoscopy cancelled due to persistent neutropenia. Have rescheduled for Thursday to allow for adequate recovery. Had only 1 episode of diarrhea but it is described as watery - Objective Vital Signs: Vital Signs Temperature 97.6 F 04/10/20 18:00 Pulse Rate 85 04/10/20 18:00 Respiratory Rate 18 04/10/20 18:00 Blood Pressure 131/94 04/10/20 18:00 O2 Sat by Pulse Oximetry (%) 96 04/10/20 10:00 Laboratory Tests 04/05/20 04/06/20 04/10/20 14:47 07:46 06:45 WBC 3.3 L Neutrophils % (Manual) 21.0 L Ferritin 808.5 H AST 82 H Albumin 04/10/20 06:45 WBC Neutrophils % (Manual) Ferritin AST 60 H Albumin 3.2 L Constitutional: Calm ...Auscultate: Yes: Hypoactive Bowel Sounds ...Palpate: Yes: Soft, Other (nontender) Labs: CBC, BMP 04/10/20 06:45 04/10/20 06:45 INR, PTT INR 1.13 (0.83-1.09) H 04/05/20 14:47 Assessment/Plan Impression: - Paroxysmal episodes of N/V and explosive diarrhea reflect paroxysmal diarrhea due to fecal impaction associated with gabapentin. Opportunistic infections, IBD and malignancy need to be excluded. 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 This will also serve as screening for varices. - Chronic hepatitis with grade 1-2 fibrosis may be a combination of previous regular alcohol usage, DURÁN and DILI - Diverticulosis - Past h/o HP gastritis and candidal esophagitis Plan: -- EGD and colonoscopy postponed until 04/13 if her neutrophil count is adequate. Problem List - Problems (1) Diarrhea Code(s): R19.7 - DIARRHEA, UNSPECIFIED Qualifiers: Diarrhea type: unspecified type Qualified Code(s): R19.7 - Diarrhea, unspecified (2) Weight loss Code(s): R63.4 - ABNORMAL WEIGHT LOSS (3) Chronic hepatitis Code(s): K73.9 - CHRONIC HEPATITIS, UNSPECIFIED (4) Post traumatic stress disorder (PTSD) Code(s): F43.10 - POST-TRAUMATIC STRESS DISORDER, UNSPECIFIED (5) Diverticulosis Code(s): K57.90 - DVRTCLOS OF INTEST, PART UNSP, W/O PERF OR ABSCESS W/O BLEED (6) Fatty liver Code(s): K76.0 - FATTY (CHANGE OF) LIVER, NOT ELSEWHERE CLASSIFIED (7) Fever Code(s): R50.9 - FEVER, UNSPECIFIED Qualifiers: Fever type: unspecified Qualified Code(s): R50.9 - Fever, unspecified (8) GERD (gastroesophageal reflux disease) Code(s): K21.9 - GASTRO-ESOPHAGEAL REFLUX DISEASE WITHOUT ESOPHAGITIS (9) Anorexia nervosa without bulimia Code(s): F50.00 - ANOREXIA NERVOSA, UNSPECIFIED (10) COPD (chronic obstructive pulmonary disease) Code(s): J44.9 - CHRONIC OBSTRUCTIVE PULMONARY DISEASE, UNSPECIFIED (11) HIV (human immunodeficiency virus infection) Code(s): Z21 - ASYMPTOMATIC HUMAN IMMUNODEFICIENCY VIRUS INFECTION STATUS Qualifiers: HIV symptom status: symptomatic Qualified Code(s): B20 - Human immunodeficiency virus [HIV] disease (12) Peripheral neuropathy Code(s): G62.9 - POLYNEUROPATHY, UNSPECIFIED (13) 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
[2020-04-10] MEDS: ZOLPIDEM TARTRATE 5 MG TABLET PO PRN (22:00)
[2020-04-11] MEDS: ALBUTEROL SO4 HFA INHALER IH SCH ×4 (00:45→17:07)
[2020-04-11] MEDS: INSULIN SLIDING SCALE (NOVOLOG) 1 VIAL SQ SCH ×4 (06:06→21:36)
[2020-04-11 07:09] LABS: BASO % 0.6 % (0-2.0); EOS % 1.3 % (0-4.5); HEMATOCRIT 36.2 % (32.4-45.2); HEMOGLOBIN 11.6 GM/dL (10.7-15.3); LYMPH % 60.1 % (8-40); MCH 26.9 pg (25.7-33.7); MCHC 32.2 g/dl (32.0-36.0); MEAN CELL VOLUME 83.7 fl (80-96); MEAN PLT VOLUME 8.3 fl (7.5-11.1); MONO % 15.3 % (3.8-10.2); NEUT % 22.7 % (42.8-82.8); PLATELET COUNT 264 K/MM3 (134-434); RBC 4.32 M/mm3 (3.60-5.2); RDW 14.9 % (11.6-15.6); WHITE BLOOD COUNT 3.5 K/mm3 (4.0-10.0)
[2020-04-11 07:45] LABS: ALBUMIN 3.4 g/dl (3.4-5.0); BILIRUBIN,TOTAL 0.4 mg/dL (0.2-1); BLOOD UREA NITROGEN 4.1 mg/dL (7-18); CALCIUM 8.9 mg/dL (8.5-10.1); CREATININE 0.8 mg/dL (0.55-1.3); MAGNESIUM 2.1 mg/dL (1.8-2.4); PHOSPHOROUS 3.4 mg/dL (2.5-4.9); POTASSIUM 4.1 mmol/L (3.5-5.1); TOT PROT 7.8 g/dl (6.4-8.2)
[2020-04-11] MEDS: ALBUTEROL SO4 2.5/IPRATROPIUM 0.5 INH SOL 3 ML VIAL.NEB. NEB PRN ×2 (08:08→15:04)
[2020-04-11 09:00] LABS: ANISOCYTOSIS 0; MACROCYTOSIS 0; PLATELET ESTIMATE NORMAL
[2020-04-11] MEDS ORDERED: PT OWN MED DRAWER 7, Y5N ONE ×4 (09:11→21:06)
[2020-04-11] MEDS: VITAMIN B COMPLEX W/C COMBO TABLET (FP) PO SCH (09:41)
[2020-04-11] MEDS: buPROPion HCL 100 MG TABLET PO SCH (09:41)
[2020-04-11] MEDS: DARUNAVIR ETHANOLATE 800 MG TAB PO SCH (09:41)
[2020-04-11] MEDS: valACYclovir HCL 500 MG TABLET (FP) PO SCH ×2 (09:41→21:36)
[2020-04-11] MEDS: CHOLECALCIFEROL (VIT D3) 1,000 UNIT (25 MCG) TABLET PO SCH (09:41)
[2020-04-11] MEDS: RITONAVIR 100 MG TABLET PO SCH (09:42)
[2020-04-11] MEDS: GABAPENTIN 300 MG CAPSULE PO SCH ×2 (09:42→21:37)
[2020-04-11] MEDS: PYRIDOXINE HCL (B-6) 50 MG TABLET (FP) PO SCH ×2 (09:42→21:36)
[2020-04-11] MEDS: ABACAVIR SULFATE 300 MG TABLET PO SCH (09:42)
[2020-04-11] MEDS: lamiVUDine 150 MG TABLET PO SCH (09:42)
[2020-04-11] MEDS: TIOTROPIUM BROMIDE 2.5 MCG (SPIRIVA) RESPIMAT INHALER IH SCH (09:45)
[2020-04-11] MEDS: BUDESONIDE/FORMETEROL FUMARATE 160/4.5 mcg INHALER IH SCH ×2 (09:45→22:00)
[2020-04-11 10:13] LABS: TRANSGLUTAMINASE IGA < 2 U/mL (0-3)
--- NOTE | 2020-04-11 10:13 | PN.GI ---
GI Progress Note Subjective: GI NOte: Today her stool had form. Neutrophils almost 800K. COVID 19 negative. Has no new complaints. Wheezing has resolved - Objective Vital Signs: Vital Signs Temperature 98.0 F 04/11/20 05:51 Pulse Rate 76 04/11/20 05:51 Respiratory Rate 18 04/11/20 05:51 Blood Pressure 108/68 04/11/20 05:51 O2 Sat by Pulse Oximetry (%) 97 04/11/20 05:51 Laboratory Tests 04/10/20 09:00 COVID-19 ([facility]) Not detected Microbiology 04/06/20 16:00 Stool Gram Stain - Final 04/06/20 16:00 Stool Escherichia coli 0157 Culture - Final NO GROWTH OF SALMONELLA OR SHIGELLA SPECIES OBTAINED NO GROWTH OF CAMPYLOBACTER SPECIES OBTAINED NO GROWTH OF YERSINIA SPECIES OBTAINED NO GROWTH OF VIBRIO SPECIES OBTAINED NO GROWTH OF E COLI 0157 OBTAINED 04/06/20 16:00 Stool Cryptosporidium Antigen - Final 04/06/20 16:00 Stool Giardia Antigen ([facility]) - Final 04/05/20 16:00 Stool Clostridioides difficile Antigen - Final 04/05/20 16:00 Stool Clostridioides difficile Toxin Assay - Final Constitutional: Calm Eyes: Yes: Conjunctiva Clear Respiratory: Yes: CTA Bilaterally ...Auscultate: Yes: Hypoactive Bowel Sounds ...Palpate: Yes: Soft, Other (nontender) Labs: CBC, BMP 04/11/20 07:00 04/11/20 07:00 INR, PTT INR 1.13 (0.83-1.09) H 04/05/20 14:47 Assessment/Plan Impression: - Paroxysmal episodes of N/V and explosive diarrhea ? paroxysmal diarrhea vs opportunistc organism, IBD and malignancy. 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 This will also serve as screening for varices. 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 Problem List - Problems (1) Diarrhea Code(s): R19.7 - DIARRHEA, UNSPECIFIED Qualifiers: Diarrhea type: unspecified type Qualified Code(s): R19.7 - Diarrhea, unspecified (2) Weight loss Code(s): R63.4 - ABNORMAL WEIGHT LOSS (3) Chronic hepatitis Code(s): K73.9 - CHRONIC HEPATITIS, UNSPECIFIED (4) Post traumatic stress disorder (PTSD) Code(s): F43.10 - POST-TRAUMATIC STRESS DISORDER, UNSPECIFIED (5) Diverticulosis Code(s): K57.90 - DVRTCLOS OF INTEST, PART UNSP, W/O PERF OR ABSCESS W/O BLEED (6) Fatty liver Code(s): K76.0 - FATTY (CHANGE OF) LIVER, NOT ELSEWHERE CLASSIFIED (7) Fever Code(s): R50.9 - FEVER, UNSPECIFIED Qualifiers: Fever type: unspecified Qualified Code(s): R50.9 - Fever, unspecified (8) GERD (gastroesophageal reflux disease) Code(s): K21.9 - GASTRO-ESOPHAGEAL REFLUX DISEASE WITHOUT ESOPHAGITIS (9) Anorexia nervosa without bulimia Code(s): F50.00 - ANOREXIA NERVOSA, UNSPECIFIED (10) COPD (chronic obstructive pulmonary disease) Code(s): J44.9 - CHRONIC OBSTRUCTIVE PULMONARY DISEASE, UNSPECIFIED (11) HIV (human immunodeficiency virus infection) Code(s): Z21 - ASYMPTOMATIC HUMAN IMMUNODEFICIENCY VIRUS INFECTION STATUS Qualifiers: HIV symptom status: symptomatic Qualified Code(s): B20 - Human immunodeficiency virus [HIV] disease (12) Peripheral neuropathy Code(s): G62.9 - POLYNEUROPATHY, UNSPECIFIED (13) 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
--- NOTE | 2020-04-11 11:30 | PN ---
Progress Note (short form) - Note Progress Note: diarrhea improved neuropathy improved concerned about number of pills she is taking Vital Signs Period Temp Pulse Resp BP Sys/Inman Pulse Ox Last 24 Hr 97.6 F-98.5 F 6-85 18-18 108-131/68-94 96-98 cor-rrr lungs scattered wheeze (improved) abd soft,nt ext no edema CBC, BMP 04/11/20 07:00 04/11/20 07:00 Microbiology 04/05/20 14:47 Blood - Peripheral Venous Blood Culture - Final NO GROWTH AFTER 5 DAYS INCUBATION 04/05/20 14:47 Blood - Peripheral Venous Blood Culture - Final NO GROWTH AFTER 5 DAYS INCUBATION 04/06/20 16:00 Stool Gram Stain - Final 04/06/20 16:00 Stool Salmonella/Shigella Culture - Final NO GROWTH OF SALMONELLA OR SHIGELLA SPECIES OBTAINED 04/06/20 16:00 Stool Campylobacter Culture - Final NO GROWTH OF CAMPYLOBACTER SPECIES OBTAINED 04/06/20 16:00 Stool Yersinia Culture - Final NO GROWTH OF YERSINIA SPECIES OBTAINED 04/06/20 16:00 Stool Vibrio Culture - Final NO GROWTH OF VIBRIO SPECIES OBTAINED 04/06/20 16:00 Stool Escherichia coli 0157 Culture - Final NO GROWTH OF E COLI 0157 OBTAINED 04/06/20 16:00 Stool AFB Smear Concentration - Preliminary 04/06/20 16:00 Stool Mycobacterial Culture - Preliminary 04/06/20 17:29 Urine - Urine Clean Catch Urine Culture - Final NO GROWTH OBTAINED 04/05/20 16:00 Stool Clostridioides difficile Antigen - Final 04/05/20 16:00 Stool Clostridioides difficile Toxin Assay - Final 04/06/20 16:00 Stool Cryptosporidium Antigen - Final 04/06/20 16:00 Stool Giardia Antigen ([facility]) - Final a/p fevers-resolved diarrhea- improved today, endoscopy planned if anc improves over 1000 hsv-on valtrex cough-copd neutropenia-no neupogen pending hematology evaluation HIV-continue art hypokalemia-agreeable to po KCL as need covid negative neutropenic precautions medlist reviewed- pillburden due to lack of coformulation of HAART in the hospital Problem List - Problems (1) Fever Code(s): R50.9 - FEVER, UNSPECIFIED Qualifiers: Fever type: unspecified Qualified Code(s): R50.9 - Fever, unspecified (2) Diarrhea Code(s): R19.7 - DIARRHEA, UNSPECIFIED Qualifiers: Diarrhea type: unspecified type Qualified Code(s): R19.7 - Diarrhea, unspecified (3) Neutropenia Code(s): D70.9 - NEUTROPENIA, UNSPECIFIED (4) Recurrent genital HSV (herpes simplex virus) infection Code(s): A60.00 - HERPESVIRAL INFECTION OF UROGENITAL SYSTEM, UNSPECIFIED (5) HIV (human immunodeficiency virus infection) Code(s): Z21 - ASYMPTOMATIC HUMAN IMMUNODEFICIENCY VIRUS INFECTION STATUS Qualifiers: HIV symptom status: symptomatic Qualified Code(s): B20 - Human immunodeficiency virus [HIV] disease (6) COPD (chronic obstructive pulmonary disease) Code(s): J44.9 - CHRONIC OBSTRUCTIVE PULMONARY DISEASE, UNSPECIFIED
--- NOTE | 2020-04-11 12:47 | CONSULT ---
Consultation: REQUESTING PROVIDER: Dr. Chavez CONSULT REQUEST: We have been asked to medically evaluate this patient for Neutropenia. HISTORY OF PRESENT ILLNESS: Pt. is a 64 y.o. F w/ PMHx. of HIV(diagnosed in 2004, CD4:254 02/14/20), HTN, HLD, DM, COPD, GERD( ddx. w/ Nava's Esophagus?), Hx. of Anorexia nervosa, PTSD and Depression presents from home with fever associated with nausea and diarrhea. Pt. states that at home she has been having fevers to 102. Pt. states her diarrhea started on morning prior to admission but has been intermittent for months to years. (Pt. endorses frustration at having the 4th hospitalization in the last 6 months). Pt. states that over the last year she has been adherent to her medication regimen however per chart review did not take her medications for the 2 days prior to admission. Pt. endorses Pap Smear within the last 1.5 years that was ultimately normal, priors had been normal. Pt. states she had a mammogram at the same time (@ [facility]) but is unsure of the results, in the past she had to have bilateral cysts removed. Per chart review last colonoscopy was in 2011 and was limited because of poor bowel prep. Pt. endorses 40 lb. weight loss of over the last 9 months but states last year when she went to a SNF for rehab she gained 100 pounds and developed DM. Since that time Pt. has lost 40 lbs. unintentionally and states that with the weight loss the diabetes went away. Pt. endorses both food and liquid sometimes getting stuck in her throat. Pt. denies blood in her stool or urine, night sweats or vomiting. Pt. quit smoking last year but has smoked 1/4- 1/2 PPD on average for 50 years. Pt. endorses family history of prostate CA in her father, and both brothers. One of her brothers also has Gastric CA as well. REVIEW OF SYSTEMS: As above PHYSICAL EXAMINATION Vital Signs - 24 hr 04/10/20 04/10/20 04/10/20 14:42 18:00 21:00 Temperature 98.5 F 97.6 F Pulse Rate 81 85 Respiratory 18 18 18 Rate Blood Pressure 120/73 131/94 O2 Sat by Pulse 96 Oximetry (%) 04/11/20 04/11/20 05:51 09:00 Temperature 98.0 F 97.7 F Pulse Rate 76 6 L Respiratory 18 18 Rate Blood Pressure 108/68 120/78 O2 Sat by Pulse 97 98 Oximetry (%) GENERAL: Awake, alert, and fully oriented, in no acute distress. HEAD: Normal with no signs of trauma. EYES: Sclera anicteric, conjunctiva clear. EARS, NOSE, THROAT: Moist mucous membranes. LUNGS: Breath sounds equal, clear to auscultation bilaterally. No wheezes. No accessory muscle use. HEART: Regular rate and rhythm, normal S1 and S2 without murmur, rub or gallop. ABDOMEN: Soft, nontender, not distended, normoactive bowel sounds, no guarding, no rebound, no masses. No hepatomegaly or splenomegaly. MUSCULOSKELETAL: Normal range of motion at all joints. No bony deformities or tenderness. No CVA tenderness. UPPER EXTREMITIES: 2+ radial pulses, warm, well-perfused. No peripheral edema. LOWER EXTREMITIES: 2+ dorsal pedal pulses, warm, well-perfused. No calf tenderness. No peripheral edema. NEUROLOGICAL: No focal deficits. Normal speech. Normal gait. PSYCHIATRIC: Cooperative. Good eye contact. Appropriate mood and affect. SKIN: Warm, dry, normal turgor, no rashes or lesions noted. Laboratory Results - last 24 hr 04/10/20 04/10/20 04/11/20 06:45 09:00 07:00 WBC 3.5 L RBC 4.32 Hgb 11.6 Hct 36.2 MCV 83.7 MCH 26.9 MCHC 32.2 RDW 14.9 Plt Count 264 D MPV 8.3 Absolute Neuts (auto) 0.8 L Neutrophils % 22.7 L D Neutrophils % (Manual) 23.5 L Band Neutrophils % 0.0 Lymphocytes % 60.1 H Lymphocytes % (Manual) 53.1 H Monocytes % 15.3 H Monocytes % (Manual) 12 H Eosinophils % 1.3 Eosinophils % (Manual) 0.0 D Basophils % 0.6 Basophils % (Manual) 0.0 Myelocytes % (Man) 0 Promyelocytes % (Man) 0 Blast Cells % (Manual) 0 D Nucleated RBC % 0 Metamyelocytes 0 Hypochromia 0 Platelet Estimate Normal Polychromasia 0 Poikilocytosis 0 Anisocytosis 0 Microcytosis 0 Macrocytosis 0 Sodium Potassium Chloride Carbon Dioxide Anion Gap BUN Creatinine Est GFR (CKD-EPI)AfAm Est GFR (CKD-EPI)NonAf Random Glucose Calcium Phosphorus Magnesium Total Bilirubin AST ALT Alkaline Phosphatase Total Protein Albumin Tiss Transglutamin IgA < 2 COVID-19 ([facility]) Not detected 04/11/20 07:00 WBC RBC Hgb Hct MCV MCH MCHC RDW Plt Count MPV Absolute Neuts (auto) Neutrophils % Neutrophils % (Manual) Band Neutrophils % Lymphocytes % Lymphocytes % (Manual) Monocytes % Monocytes % (Manual) Eosinophils % Eosinophils % (Manual) Basophils % Basophils % (Manual) Myelocytes % (Man) Promyelocytes % (Man) Blast Cells % (Manual) Nucleated RBC % Metamyelocytes Hypochromia Platelet Estimate Polychromasia Poikilocytosis Anisocytosis Microcytosis Macrocytosis Sodium 143 Potassium 4.1 Chloride 112 H Carbon Dioxide 25 Anion Gap 6 L BUN 4.1 L Creatinine 0.8 Est GFR (CKD-EPI)AfAm 90.94 Est GFR (CKD-EPI)NonAf 78.46 Random Glucose 96 Calcium 8.9 Phosphorus 3.4 Magnesium 2.1 Total Bilirubin 0.4 AST 55 H ALT 37 Alkaline Phosphatase 78 Total Protein 7.8 Albumin 3.4 Tiss Transglutamin IgA COVID-19 ([facility]) Active Medications Generic Name Dose Route Start Last Admin Trade Name Freq PRN Reason Stop Dose Admin Abacavir Sulfate 600 mg 04/07/20 10:00 04/11/20 09:42 Ziagen - PO 600 mg DAILY SHERI Administration Acetaminophen 325 mg 04/06/20 17:29 Tylenol - PO BID PRN PAIN LEVEL 6-10 Albuterol Sulfate 2 puff 04/06/20 00:00 04/11/20 11:39 Ventolin Hfa Inhaler - IH 2 puff Q6HPO SHERI Administration Albuterol/Ipratropium 1 amp 04/06/20 13:32 04/11/20 08:08 Duoneb - NEB 1 amp Q6H PRN Administration SHORTNESS OF BREATH Bisacodyl 20 mg 04/12/20 18:00 Dulcolax - PO 04/12/20 18:01 ONCE ONE Budesonide/Formoterol Fumarate 2 puff 04/06/20 13:45 04/11/20 09:45 Symbicort 160/4.5mcg - IH 2 puff BID SHERI Administration Bupropion HCl 200 mg 04/07/20 10:00 04/11/20 09:41 Wellbutrin - PO 200 mg DAILY SHERI Administration Cholecalciferol 2,000 unit 04/07/20 10:00 04/11/20 09:41 Vitamin D3 - PO 2,000 unit DAILY SHERI Administration Darunavir 800 mg 04/07/20 10:00 04/11/20 09:41 Prezista - PO 800 mg DAILY SHERI Administration Gabapentin 300 mg 04/06/20 22:00 04/11/20 09:42 Neurontin - PO 300 mg BID SHERI Administration Insulin Aspart 1 vial 04/05/20 22:00 04/11/20 11:38 Novolog Vial Sliding Scale - SQ Not Given ACHS [facility] Protocol Lamivudine 300 mg 04/10/20 10:00 04/11/20 09:42 Epivir - PO 300 mg DAILY SHERI Administration Multivitamins 1 each 04/06/20 17:30 04/11/20 09:41 Total B With C - PO 1 each DAILY SHERI Administration Polyethylene Glycol/Electrolytes 4,000 ml 04/12/20 09:00 Golytely Solution - PO 04/12/20 09:01 ONCE ONE Pyridoxine HCl 25 mg 04/06/20 22:00 04/11/20 09:42 Vitamin B6 - PO 25 mg BID SHERI Administration Ritonavir 100 mg 04/07/20 10:00 04/11/20 09:42 Norvir - PO 100 mg DAILY SHERI Administration Tiotropium [place] 2 puff 04/06/20 13:45 04/11/20 09:45 Spiriva Respimat IH 2 puff DAILY SHERI Administration Valacyclovir HCl 1,000 mg 04/06/20 14:00 04/11/20 09:41 Valtrex - PO 1,000 mg BID SHERI Administration Zolpidem Tartrate 10 mg 04/10/20 21:41 04/10/20 22:00 Ambien - PO 10 mg HS PRN Administration INSOMNIA ASSESSMENT/PLAN: Pt. is a 64 y.o. F w/ PMHx. of HIV(diagnosed in 2004, CD4:254 02/14/20), HTN, HLD, DM, COPD, GERD( ddx. w/ Nava's Esophagus?), Hx. of Anorexia nervosa, PTSD and Depression presents from home with fever associated with nausea and diarrhea. #Neutropenia On day of admission Pt. was febrile to 100.7 but at that time had ANC of 1,500. The next day ANC dropped to 0.8 and has been around that level since. Pt. was seen in December by Heme/Onc for pancytopenia and was given Neuopogen. At that time Pt. was having a diarrheal illness as well. 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 MAC is known to cause pancytopenia and did have that time during the last hospitalization. Stool studies including AFB have been negative thus far. At this time viral or atypical bacterial oppurtunistic infections are high on the differential as Pt. has had such infections in the past. Malignancy is also possible given family history and weight loss. Will order bone marrow biopsy to evaluate for infiltrating malignancy Will evaluate for Neupogen this admission f/u EGD and colonoscopy results with biopsy Dispo: We will continue to follow the patient. Thank you for this consultative opportunity. Visit type - Emergency Visit Emergency Visit: Yes ED Registration Date: 04/05/20 Care time: The patient presented to the Emergency Department on the above date and was hospitalized for further evaluation of their emergent condition. - New Patient This patient is new to me today: Yes Date on this admission: 04/11/20 - Critical Care Critical Care patient: No ATTENDING PHYSICIAN STATEMENT I saw and evaluated the patient. I reviewed the resident's note and discussed the case with the resident. I agree with the resident's findings and plan as documented. SUBJECTIVE: OBJECTIVE: ASSESSMENT AND PLAN:
--- NOTE | 2020-04-11 15:38 | PN ---
Teaching Attending Note Name of Resident: David Lopez ATTENDING PHYSICIAN STATEMENT I saw and evaluated the patient. I reviewed the resident's note and discussed the case with the resident. I agree with the resident's findings and plan as documented. SUBJECTIVE: Over the last 24 hours seen and examined at bedside. Patient has had no diarrhea over the past 24 hours. Hemodynamically stable.Pending colonoscopy tomorrow if medically stable OBJECTIVE: Last Vital Signs Temp Pulse Resp BP Pulse Ox 98.0 F 87 18 138/84 98 04/11/20 14:54 04/11/20 14:54 04/11/20 14:54 04/11/20 14:54 04/11/20 09:00 PE: Per resident note Labs/Imaging; reviewed ASSESSMENT AND PLAN: 61 year old female with history of HIV (last CD4 count 254, on HAART), HTN, HLD, DM 2, presents with fevers, chills, myalgias, fatigue for 1 week, with 1 day history of watery diarrhea. # Febrile Illness, etiology unclear with associated Neutropenia - fever resolved, neutropenia improving. CXR/CT Chest - no consolidation Urine Cx negative Blood Cx negative COVID PCR negative Diarrheal illness with dilated fluid filled bowel loops on CT - Stool Cdiff negative. Stool giardia/crypto negative. Vanco/Meropenem given in ED - received 3 days empiric Cefepime and Flagyl - now stopped as per ID.. GI consult for intractable diarrhea. #Diarrhea Pt has had multiple episodes this year pending endoscopy/cscope. Currently delayed as pt's ANC <1000 planned for thursday pending increase in ANC #Hypernatremia -started on D5 09/08 NS # HIV on HAART - resumed by ID. Hx HSV with current outbreak - on Valacyclovir # Elevated DDIMER - appears chronic CTA Chest - no PE Duplex LEs - no DVT. # FELIZ sec to dehydration - resolved with IV hydration. # Hx Neuropathy - normally on Gabapentin. # COPD - resumed on Spiriva and Symbicort with standing DuoNebs. Advised against Prednisone by ID due to prior general adverse effects # Hypokalemia - recurrent, repleted. DVT Px - Lovenox SQ
--- NOTE | 2020-04-11 17:35 | PN ---
Physical Exam: SUBJECTIVE: No overnight events. Patient seen and examined. 2 BM that were reported to be "a little watery," but "not explosive diarrhea." Denies cough and SOB. Pt breathing on room air. OBJECTIVE: Vital Signs Period Temp Pulse Resp BP Sys/[place] Pulse Ox Last 24 Hr 97.6 F-98.0 F 6-87 18-18 108-138/68-94 96-98 GENERAL: The patient is awake, alert, and fully oriented, in no acute distress. HEENT: Normal with no signs of trauma. No ptosis. MMM LUNGS: mild wheezing, no crackles, no accessory muscle use. HEART: Regular rate and rhythm, S1, S2 without murmur, rub or gallop. ABDOMEN: Soft, nontender, nondistended, normoactive bowel sounds, no guarding, no rebound EXTREMITIES: 2+ pulses, warm, well-perfused, no edema. Decreased sensation to palpation on Plantar and dorsal aspect of feet. NEUROLOGICAL: Normal speech, gait not observed. PSYCH: Normal mood, normal affect. Laboratory Results - last 24 hr 04/10/20 04/10/20 04/11/20 06:45 09:00 07:00 WBC 3.5 L RBC 4.32 Hgb 11.6 Hct 36.2 MCV 83.7 MCH 26.9 MCHC 32.2 RDW 14.9 Plt Count 264 D MPV 8.3 Absolute Neuts (auto) 0.8 L Neutrophils % 22.7 L D Neutrophils % (Manual) 23.5 L Band Neutrophils % 0.0 Lymphocytes % 60.1 H Lymphocytes % (Manual) 53.1 H Monocytes % 15.3 H Monocytes % (Manual) 12 H Eosinophils % 1.3 Eosinophils % (Manual) 0.0 D Basophils % 0.6 Basophils % (Manual) 0.0 Myelocytes % (Man) 0 Promyelocytes % (Man) 0 Blast Cells % (Manual) 0 D Nucleated RBC % 0 Metamyelocytes 0 Hypochromia 0 Platelet Estimate Normal Polychromasia 0 Poikilocytosis 0 Anisocytosis 0 Microcytosis 0 Macrocytosis 0 Retic Count Sodium Potassium Chloride Carbon Dioxide Anion Gap BUN Creatinine Est GFR (CKD-EPI)AfAm Est GFR (CKD-EPI)NonAf Random Glucose Calcium Phosphorus Magnesium Total Bilirubin AST ALT Alkaline Phosphatase Total Protein Albumin Tiss Transglutamin IgA < 2 COVID-19 ([facility]) Not detected 08/05/20 08/05/20 07:00 07:00 WBC RBC Hgb Hct MCV MCH MCHC RDW Plt Count MPV Absolute Neuts (auto) Neutrophils % Neutrophils % (Manual) Band Neutrophils % Lymphocytes % Lymphocytes % (Manual) Monocytes % Monocytes % (Manual) Eosinophils % Eosinophils % (Manual) Basophils % Basophils % (Manual) Myelocytes % (Man) Promyelocytes % (Man) Blast Cells % (Manual) Nucleated RBC % Metamyelocytes Hypochromia Platelet Estimate Polychromasia Poikilocytosis Anisocytosis Microcytosis Macrocytosis Retic Count 0.84 D Sodium 143 Potassium 4.1 Chloride 112 H Carbon Dioxide 25 Anion Gap 6 L BUN 4.1 L Creatinine 0.8 Est GFR (CKD-EPI)AfAm 90.94 Est GFR (CKD-EPI)NonAf 78.46 Random Glucose 96 Calcium 8.9 Phosphorus 3.4 Magnesium 2.1 Total Bilirubin 0.4 AST 55 H ALT 37 Alkaline Phosphatase 78 Total Protein 7.8 Albumin 3.4 Tiss Transglutamin IgA COVID-19 ([facility]) Active Medications Generic Name Dose Route Start Last Admin Trade Name Freq PRN Reason Stop Dose Admin Abacavir Sulfate 600 mg 04/07/20 10:00 04/11/20 09:42 Ziagen - PO 600 mg DAILY SHERI Administration Acetaminophen 325 mg 04/06/20 17:29 Tylenol - PO BID PRN PAIN LEVEL 6-10 Albuterol Sulfate 2 puff 04/06/20 00:00 04/11/20 17:07 Ventolin Hfa Inhaler - IH 2 puff Q6HPO SHERI Administration Albuterol/Ipratropium 1 amp 04/11/20 14:05 04/11/20 15:04 Duoneb - NEB 1 amp Q6H PRN Administration SHORTNESS OF BREATH Bisacodyl 20 mg 04/12/20 18:00 Dulcolax - PO 04/12/20 18:01 ONCE ONE Budesonide/Formoterol Fumarate 2 puff 04/06/20 13:45 04/11/20 09:45 Symbicort 160/4.5mcg - IH 2 puff BID SHERI Administration Bupropion HCl 200 mg 04/07/20 10:00 04/11/20 09:41 Wellbutrin - PO 200 mg DAILY SHERI Administration Cholecalciferol 2,000 unit 04/07/20 10:00 04/11/20 09:41 Vitamin D3 - PO 2,000 unit DAILY SHERI Administration Darunavir 800 mg 04/07/20 10:00 04/11/20 09:41 Prezista - PO 800 mg DAILY SHERI Administration Gabapentin 300 mg 04/06/20 22:00 04/11/20 09:42 Neurontin - PO 300 mg BID SHERI Administration Insulin Aspart 1 vial 04/05/20 22:00 04/11/20 15:54 Novolog Vial Sliding Scale - SQ Not Given ACHS [facility] Protocol Lamivudine 300 mg 04/10/20 10:00 04/11/20 09:42 Epivir - PO 300 mg DAILY SHERI Administration Multivitamins 1 each 04/06/20 17:30 04/11/20 09:41 Total B With C - PO 1 each DAILY SHERI Administration Polyethylene Glycol/Electrolytes 4,000 ml 04/12/20 09:00 Golytely Solution - PO 04/12/20 09:01 ONCE ONE Pyridoxine HCl 25 mg 04/06/20 22:00 04/11/20 09:42 Vitamin B6 - PO 25 mg BID SHERI Administration Ritonavir 100 mg 04/07/20 10:00 04/11/20 09:42 Norvir - PO 100 mg DAILY SHERI Administration Valacyclovir HCl 1,000 mg 04/06/20 14:00 04/11/20 09:41 Valtrex - PO 1,000 mg BID SHERI Administration Zolpidem Tartrate 10 mg 04/10/20 21:41 04/10/20 22:00 Ambien - PO 10 mg HS PRN Administration INSOMNIA ASSESSMENT/PLAN: Pt is 64 YO F PMH HTN, DM, HIV (CD4 count 254 on 02/14/20, adherent on HAART) p/w fever, chills, generalized weakness, diarrhea. Admitted for sepsis. #Sepsis 2/2 unknown etiology -COVID negative. blood cx negative, stool cx negative. crypto/giardia antigen negative. legionella antigen, -f/u UA, sputum cx,influenza A & Br -s/p vanc, meropenem in ED. s/p cefepime 1 gm Q8H & metronidazole 500 mg Q8H as per ID -CTA no PE; vascular studies: no DVT -CTAP no contrast: increased fluid within colon. #Diarrhea -ID c/s appreciated. GI c/s appreciated. 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 Will order bone biopsy. Will also evaluate for neupogen #FELIZ 2/2 dehydration -Resolved. improved w/ IVF. Cr 1.6 on admission. #COPD -s/p 6 mg IV ONCE dexamethasone -symbicort BID DAILY for copd exacerbation -duoneb Q6H PRN #HIV -c/w neutropenic precautions -ID c/s appreciated. -Lamivudine 300 mg PO Daily -ritnovair 100 mg PO Daily -Darunavir 800 mg PO daily -HSV: c/w Valacyclovir #Neuropathy 300 ng gabapentin PO BID #DM Hgb 7.8 ISS BGM #HTN #DVT PPX 30 mg SQ DAILY (renally dosed) #FEN -no IVF -monitor lytes. Hyponatremia resolved. -neutropenic diet #DISPO maintain med surg Visit type - Emergency Visit Emergency Visit: Yes ED Registration Date: 04/05/20 Care time: The patient presented to the Emergency Department on the above date and was hospitalized for further evaluation of their emergent condition. - New Patient This patient is new to me today: No - Critical Care Critical Care patient: No ATTENDING PHYSICIAN STATEMENT I saw and evaluated the patient. I reviewed the resident's note and discussed the case with the resident. I agree with the resident's findings and plan as documented. SUBJECTIVE: OBJECTIVE: ASSESSMENT AND PLAN:
[2020-04-11 19:07] LABS: TRANSGLUTAMINASE IGG < 2 U/mL (0-5)
--- NOTE | 2020-04-11 19:32 | PN ---
Teaching Attending Note Name of Resident: Mahesh Evans ATTENDING PHYSICIAN STATEMENT I saw and evaluated the patient. I reviewed the resident's note and discussed the case with the resident. I agree with the resident's findings and plan as documented. ASSESSMENT AND PLAN: Pt. is a 64 y.o. F w/ PMHx. of HIV(diagnosed in 2004, CD4:254 02/14/20), HTN, HLD, DM, COPD, GERD( ddx. w/ Nava's Esophagus?), Hx. of Anorexia nervosa, PTSD and Depression presents from home with fever associated with nausea and diarrhea. /similar episodes on several occasions over the last [address] c/a/p w/o contrast --04/05 -- mild emphysema, mild b/l apical scarring, b/l small effusions, diffuse hepatic steatosis, fluid in the colon and distal small bowel loops CTA 04/06 of chect : no pe ANC 0.8/wbc 3.5/plts nl/hgb 11.8/LDH 548/cr/-nl/AST 41/, remainder LFTs nl relative lymphocytosis will schedule bone marrow aspirate/biopsy r/o opportunistic infections, lymphoma will consider neupogen after GI w/u will follow
[2020-04-11] MEDS: ZOLPIDEM TARTRATE 5 MG TABLET PO PRN (21:38)
[2020-04-12] MEDS: ALBUTEROL SO4 HFA INHALER IH SCH ×4 (05:50→17:13)
[2020-04-12] MEDS: INSULIN SLIDING SCALE (NOVOLOG) 1 VIAL SQ SCH ×4 (06:11→23:00)
[2020-04-12] MEDS: ALBUTEROL SO4 2.5/IPRATROPIUM 0.5 INH SOL 3 ML VIAL.NEB. NEB PRN (07:52)
[2020-04-12 08:14] LABS: BASO % 0.3 % (0-2.0); EOS % 1.2 % (0-4.5); HEMOGLOBIN 11.9 GM/dL (10.7-15.3); LYMPH % 53.8 % (8-40); MCH 27.3 pg (25.7-33.7); MCHC 32.1 g/dl (32.0-36.0); MEAN CELL VOLUME 85.3 fl (80-96); MEAN PLT VOLUME 8.6 fl (7.5-11.1); MONO % 17.5 % (3.8-10.2); NEUT % 27.2 % (42.8-82.8); PLATELET COUNT 292 K/MM3 (134-434); RBC 4.34 M/mm3 (3.60-5.2); RDW 14.8 % (11.6-15.6); WHITE BLOOD COUNT 3.8 K/mm3 (4.0-10.0)
[2020-04-12 08:39] LABS: ALBUMIN 3.4 g/dl (3.4-5.0); BILIRUBIN,TOTAL 0.3 mg/dL (0.2-1); BLOOD UREA NITROGEN 5.2 mg/dL (7-18); CALCIUM 8.7 mg/dL (8.5-10.1); CREATININE 0.8 mg/dL (0.55-1.3); MAGNESIUM 2.2 mg/dL (1.8-2.4); PHOSPHOROUS 3.7 mg/dL (2.5-4.9); POTASSIUM 4.1 mmol/L (3.5-5.1); TOT PROT 7.6 g/dl (6.4-8.2)
[2020-04-12] MEDS ORDERED: PEG 3350/NA SULF BICARB CL/KCL 4000 ML SOLN.RECON PO ONE (09:00)
[2020-04-12] MEDS ORDERED: PT OWN MED DRAWER 7, Y5N ONE ×2 (10:55→12:11)
[2020-04-12] MEDS: GABAPENTIN 300 MG CAPSULE PO SCH ×2 (10:58→23:00)
[2020-04-12] MEDS: CHOLECALCIFEROL (VIT D3) 1,000 UNIT (25 MCG) TABLET PO SCH (10:58)
[2020-04-12] MEDS: VITAMIN B COMPLEX W/C COMBO TABLET (FP) PO SCH (10:59)
[2020-04-12] MEDS: valACYclovir HCL 500 MG TABLET (FP) PO SCH ×2 (10:59→23:00)
[2020-04-12] MEDS: PYRIDOXINE HCL (B-6) 50 MG TABLET (FP) PO SCH ×2 (10:59→23:00)
[2020-04-12] MEDS: buPROPion HCL 100 MG TABLET PO SCH (11:00)
[2020-04-12] MEDS: DARUNAVIR ETHANOLATE 800 MG TAB PO SCH (11:05)
[2020-04-12] MEDS: lamiVUDine 150 MG TABLET PO SCH (11:05)
[2020-04-12] MEDS: ABACAVIR SULFATE 300 MG TABLET PO SCH (11:05)
[2020-04-12] MEDS: RITONAVIR 100 MG TABLET PO SCH (11:05)
--- NOTE | 2020-04-12 11:56 | PN ---
Physical Exam: SUBJECTIVE: Patient seen and examined. Pt. states she feels well and denies any acute complaints. No acute events overnight. OBJECTIVE: Vital Signs Period Temp Pulse Resp BP Sys/Inman Pulse Ox Last 24 Hr 97.5 F-98.5 F 80-87 18-18 132-147/79-89 97-98 GENERAL: Awake, alert, and fully oriented, in no acute distress. HEAD: Normal with no signs of trauma. EYES: Sclera anicteric, conjunctiva clear. EARS, NOSE, THROAT: Moist mucous membranes. LUNGS: Faint crackles. No wheezes. No accessory muscle use. HEART: Regular rate and rhythm, normal S1 and S2 without murmur, rub or gallop. MUSCULOSKELETAL: Normal range of motion at all joints. No bony deformities or tenderness. No CVA tenderness. UPPER EXTREMITIES: 2+ radial pulses, warm, well-perfused. No peripheral edema. LOWER EXTREMITIES: 2+ dorsal pedal pulses, warm, well-perfused. No calf tenderness. No peripheral edema. NEUROLOGICAL: No focal deficits. Normal speech. PSYCHIATRIC: Cooperative. Good eye contact. Appropriate mood and affect. SKIN: Warm, dry, normal turgor, no rashes or lesions noted. Laboratory Results - last 24 hr 04/10/20 04/11/20 04/12/20 06:45 07:00 07:20 WBC 3.8 L RBC 4.34 Hgb 11.9 Hct 37.0 MCV 85.3 MCH 27.3 MCHC 32.1 RDW 14.8 Plt Count 292 MPV 8.6 Absolute Neuts (auto) 1.0 L Neutrophils % 27.2 L Lymphocytes % 53.8 H Monocytes % 17.5 H Eosinophils % 1.2 Basophils % 0.3 Nucleated RBC % 0 Retic Count 0.84 D Sodium Potassium Chloride Carbon Dioxide Anion Gap BUN Creatinine Est GFR (CKD-EPI)AfAm Est GFR (CKD-EPI)NonAf Random Glucose Calcium Phosphorus Magnesium Total Bilirubin AST ALT Alkaline Phosphatase Total Protein Albumin Tiss Transglutamin IgG < 2 04/12/20 07:20 WBC RBC Hgb Hct MCV MCH MCHC RDW Plt Count MPV Absolute Neuts (auto) Neutrophils % Lymphocytes % Monocytes % Eosinophils % Basophils % Nucleated RBC % Retic Count Sodium 145 Potassium 4.1 Chloride 115 H Carbon Dioxide 20 L Anion Gap 11 BUN 5.2 L Creatinine 0.8 Est GFR (CKD-EPI)AfAm 90.94 Est GFR (CKD-EPI)NonAf 78.46 Random Glucose 83 Calcium 8.7 Phosphorus 3.7 Magnesium 2.2 Total Bilirubin 0.3 AST 41 H ALT 35 Alkaline Phosphatase 77 Total Protein 7.6 Albumin 3.4 Tiss Transglutamin IgG Active Medications Generic Name Dose Route Start Last Admin Trade Name Freq PRN Reason Stop Dose Admin Abacavir Sulfate 600 mg 04/07/20 10:00 04/12/20 11:05 Ziagen - PO 600 mg DAILY SHERI Administration Acetaminophen 325 mg 04/06/20 17:29 Tylenol - PO BID PRN PAIN LEVEL 6-10 Albuterol Sulfate 2 puff 04/06/20 00:00 04/12/20 05:50 Ventolin Hfa Inhaler - IH Not Given Q6HPO SHERI Albuterol/Ipratropium 1 amp 04/11/20 14:05 04/12/20 07:52 Duoneb - NEB 1 amp Q6H PRN Administration SHORTNESS OF BREATH Bisacodyl 20 mg 04/12/20 18:00 Dulcolax - PO 04/12/20 18:01 ONCE ONE Budesonide/Formoterol Fumarate 2 puff 04/06/20 13:45 04/11/20 22:00 Symbicort 160/4.5mcg - IH 2 puff BID SHERI Administration Bupropion HCl 200 mg 04/07/20 10:00 04/12/20 11:00 Wellbutrin - PO 200 mg DAILY SHERI Administration Cholecalciferol 2,000 unit 04/07/20 10:00 04/12/20 10:58 Vitamin D3 - PO 2,000 unit DAILY SHERI Administration Darunavir 800 mg 04/07/20 10:00 04/12/20 11:05 Prezista - PO 800 mg DAILY SHERI Administration Gabapentin 300 mg 04/06/20 22:00 04/12/20 10:58 Neurontin - PO 300 mg BID SHERI Administration Insulin Aspart 1 vial 04/05/20 22:00 04/12/20 11:27 Novolog Vial Sliding Scale - SQ Not Given ACHS [facility] Protocol Lamivudine 300 mg 04/10/20 10:00 04/12/20 11:05 Epivir - PO 300 mg DAILY SHERI Administration Multivitamins 1 each 04/06/20 17:30 04/12/20 10:59 Total B With C - PO 1 each DAILY SHERI Administration Pyridoxine HCl 25 mg 04/06/20 22:00 04/12/20 10:59 Vitamin B6 - PO 25 mg BID SHERI Administration Ritonavir 100 mg 04/07/20 10:00 04/12/20 11:05 Norvir - PO 100 mg DAILY SHERI Administration Valacyclovir HCl 1,000 mg 04/06/20 14:00 04/12/20 10:59 Valtrex - PO 1,000 mg BID SHERI Administration Zolpidem Tartrate 10 mg 04/10/20 21:41 04/11/20 21:38 Ambien - PO 10 mg HS PRN Administration INSOMNIA ASSESSMENT/PLAN: Pt. is a 64 y.o. F w/ PMHx. of HIV(diagnosed in 2004, CD4:254 02/14/20), HTN, HLD, DM, COPD, GERD( ddx. w/ Nava's Esophagus?), Hx. of Anorexia nervosa, PTSD and Depression presents from home with fever associated with nausea and diarrhea. #Neutropenia On day of admission Pt. was febrile to 100.7 but at that time had ANC of 1,500. The next day ANC dropped to 0.8 and has been around that level since. Pt. was seen in December by Heme/Onc for pancytopenia and was given Neuopogen. At that time Pt. was having a diarrheal illness as well. 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 MAC is known to cause pancytopenia and did have that time during the last hospitalization. Stool studies including AFB have been negative thus far. At this time viral or atypical bacterial oppurtunistic infections are high on the differential as Pt. has had such infections in the past. Malignancy is also possible given family history and weight loss. Will order bone marrow biopsy to evaluate for infiltrating malignancy Will evaluate for Neupogen this admission f/u EGD and colonoscopy results with biopsy Dispo: We will continue to follow the patient. Thank you for this consultative opportunity. ATTENDING PHYSICIAN STATEMENT I saw and evaluated the patient. I reviewed the resident's note and discussed the case with the resident. I agree with the resident's findings and plan as documented. SUBJECTIVE: OBJECTIVE: ASSESSMENT AND PLAN:
[2020-04-12] MEDS: BUDESONIDE/FORMETEROL FUMARATE 160/4.5 mcg INHALER IH SCH ×2 (12:21→23:00)
[2020-04-12] MEDS ORDERED: MAGNESIUM CITRATE 300 ML BOTTLE PO PRN (16:36)
--- NOTE | 2020-04-12 16:49 | PN ---
Teaching Attending Note Name of Resident: David Lopez ATTENDING PHYSICIAN STATEMENT I saw and evaluated the patient. I reviewed the resident's note and discussed the case with the resident. I agree with the resident's findings and plan as documented. SUBJECTIVE: Seen and examined at bedside. Patient in good spirits. Plan for bone marrow biopsy today. ANC is now 1. If hold steady cleared for colonoscopy tomorrow OBJECTIVE: Last Vital Signs Temp Pulse Resp BP Pulse Ox 97.9 F 96 H 15 146/88 98 04/12/20 14:47 04/12/20 15:16 04/12/20 15:16 04/12/20 15:16 04/12/20 15:16 PE: Per resident note Labs/Imaging; reviewed ASSESSMENT AND PLAN: 61 year old female with history of HIV (last CD4 count 254, on HAART), HTN, HLD, DM 2, presents with fevers, chills, myalgias, fatigue for 1 week, with 1 day history of watery diarrhea. # Febrile Illness, etiology unclear with associated Neutropenia - fever resolved, neutropenia improving. CXR/CT Chest - no consolidation Urine Cx negative Blood Cx negative COVID PCR negative Diarrheal illness with dilated fluid filled bowel loops on CT - Stool Cdiff negative. Stool giardia/crypto negative. Vanco/Meropenem given in ED - received 3 days empiric Cefepime and Flagyl - now stopped as per ID.. GI consult for intractable diarrhea. #Neutropenia with elevated lymphocyte percentage -heme on board: appreciate recs -bone marrow biopsy today #Diarrhea Pt has had multiple episodes this year pending endoscopy/cscope. Currently delayed as pt's ANC <1000 planned for thursday pending increase in ANC #Hypernatremia -started on D5 09/08 NS # HIV on HAART - resumed by ID. Hx HSV with current outbreak - on Valacyclovir # Elevated DDIMER - appears chronic CTA Chest - no PE Duplex LEs - no DVT. # FELIZ sec to dehydration - resolved with IV hydration. # Hx Neuropathy - normally on Gabapentin. # COPD - resumed on Spiriva and Symbicort with standing DuoNebs. Advised against Prednisone by ID due to prior general adverse effects # Hypokalemia - recurrent, repleted. DVT Px - Lovenox SQ
[2020-04-12] MEDS ORDERED: BISACODYL 5 MG TABLET.DR (FP) PO ONE (18:00)
--- NOTE | 2020-04-12 18:16 | PN ---
Physical Exam: SUBJECTIVE: No overnight events. Patient seen and examined. Endorses 1 non- watery, non-bloody bowel movement. Endorses feeling better OBJECTIVE: Vital Signs Period Temp Pulse Resp BP Sys/Inman Pulse Ox Last 24 Hr 97.5 F-98 F 71-96 15-18 114-157/73-102 96-100 GENERAL: The patient is awake, alert, and fully oriented, in no acute distress. HEENT: Normal with no signs of trauma. No ptosis. MMM LUNGS: mild wheezing, no crackles, no accessory muscle use. HEART: Regular rate and rhythm, S1, S2 without murmur, rub or gallop. ABDOMEN: Soft, nontender, nondistended, normoactive bowel sounds, no guarding, no rebound EXTREMITIES: 2+ pulses, warm, well-perfused, no edema. Decreased sensation to palpation on Plantar and dorsal aspect of feet. NEUROLOGICAL: Normal speech, gait not observed. PSYCH: Normal mood, normal affect. Laboratory Results - last 24 hr 04/10/20 04/12/20 04/12/20 06:45 07:20 07:20 WBC 3.8 L RBC 4.34 Hgb 11.9 Hct 37.0 MCV 85.3 MCH 27.3 MCHC 32.1 RDW 14.8 Plt Count 292 MPV 8.6 Absolute Neuts (auto) 1.0 L Neutrophils % 27.2 L Lymphocytes % 53.8 H Monocytes % 17.5 H Eosinophils % 1.2 Basophils % 0.3 Nucleated RBC % 0 Sodium 145 Potassium 4.1 Chloride 115 H Carbon Dioxide 20 L Anion Gap 11 BUN 5.2 L Creatinine 0.8 Est GFR (CKD-EPI)AfAm 90.94 Est GFR (CKD-EPI)NonAf 78.46 Random Glucose 83 Calcium 8.7 Phosphorus 3.7 Magnesium 2.2 Total Bilirubin 0.3 AST 41 H ALT 35 Alkaline Phosphatase 77 Total Protein 7.6 Albumin 3.4 Tiss Transglutamin IgG < 2 Active Medications Generic Name Dose Route Start Last Admin Trade Name Freq PRN Reason Stop Dose Admin Abacavir Sulfate 600 mg 04/07/20 10:00 04/12/20 11:05 Ziagen - PO 600 mg DAILY SHERI Administration Acetaminophen 325 mg 04/06/20 17:29 Tylenol - PO BID PRN PAIN LEVEL 6-10 Albuterol Sulfate 2 puff 04/06/20 00:00 04/12/20 17:13 Ventolin Hfa Inhaler - IH 2 puff Q6HPO SHERI Administration Albuterol/Ipratropium 1 amp 04/11/20 14:05 04/12/20 07:52 Duoneb - NEB 1 amp Q6H PRN Administration SHORTNESS OF BREATH Budesonide/Formoterol Fumarate 2 puff 04/06/20 13:45 04/12/20 12:21 Symbicort 160/4.5mcg - IH 2 puff BID SHERI Administration Bupropion HCl 200 mg 04/07/20 10:00 04/12/20 11:00 Wellbutrin - PO 200 mg DAILY SHERI Administration Cholecalciferol 2,000 unit 04/07/20 10:00 04/12/20 10:58 Vitamin D3 - PO 2,000 unit DAILY SHERI Administration Darunavir 800 mg 04/07/20 10:00 04/12/20 11:05 Prezista - PO 800 mg DAILY SHERI Administration Gabapentin 300 mg 04/06/20 22:00 04/12/20 10:58 Neurontin - PO 300 mg BID SHERI Administration Insulin Aspart 1 vial 04/05/20 22:00 04/12/20 16:00 Novolog Vial Sliding Scale - SQ Not Given ACHS [facility]ERI Protocol Lamivudine 300 mg 04/10/20 10:00 04/12/20 11:05 Epivir - PO 300 mg DAILY SHERI Administration Magnesium Citrate 300 ml 04/12/20 16:36 Citroma - PO ONCE PRN CONSTIPATION Multivitamins 1 each 04/06/20 17:30 04/12/20 10:59 Total B With C - PO 1 each DAILY SHERI Administration Pyridoxine HCl 25 mg 04/06/20 22:00 04/12/20 10:59 Vitamin B6 - PO 25 mg BID SHERI Administration Ritonavir 100 mg 04/07/20 10:00 04/12/20 11:05 Norvir - PO 100 mg DAILY SHERI Administration Valacyclovir HCl 1,000 mg 04/06/20 14:00 04/12/20 10:59 Valtrex - PO 1,000 mg BID SHERI Administration Zolpidem Tartrate 10 mg 04/10/20 21:41 04/11/20 21:38 Ambien - PO 10 mg HS PRN Administration INSOMNIA ASSESSMENT/PLAN: Pt is 64 YO F PMH HTN, DM, HIV (CD4 count 254 on 02/14/20, adherent on HAART) p/w fever, chills, generalized weakness, diarrhea. Admitted for sepsis. #Sepsis 2/2 unknown etiology -COVID negative. blood cx negative, stool cx negative. crypto/giardia antigen negative. legionella antigen, -f/u UA, sputum cx,influenza A & Br -s/p vanc, meropenem in ED. s/p cefepime 1 gm Q8H & metronidazole 500 mg Q8H as per ID -CTA no PE; vascular studies: no DVT -CTAP no contrast: increased fluid within colon. #Diarrhea -ID c/s appreciated. GI c/s appreciated. ANC is >1000. Colonoscopy tomorrow. NPO at midnight. 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 Bone biopsy performed today. Will also evaluate for neupogen #FELIZ 2/2 dehydration -Resolved. improved w/ IVF. Cr 1.6 on admission. #COPD -s/p 6 mg IV ONCE dexamethasone -symbicort BID DAILY for copd exacerbation -duoneb Q6H PRN #HIV -c/w neutropenic precautions -ID c/s appreciated. -Lamivudine 300 mg PO Daily -ritnovair 100 mg PO Daily -Darunavir 800 mg PO daily -HSV: c/w Valacyclovir #Neuropathy 300 ng gabapentin PO BID #DM Hgb 7.8 ISS BGM #HTN #DVT PPX 30 mg SQ DAILY (renally dosed) #FEN -no IVF -monitor lytes. Hyponatremia resolved. -NPO at midnight. #DISPO maintain med surg Visit type - Emergency Visit Emergency Visit: Yes ED Registration Date: 04/05/20 Care time: The patient presented to the Emergency Department on the above date and was hospitalized for further evaluation of their emergent condition. - New Patient This patient is new to me today: No - Critical Care Critical Care patient: No ATTENDING PHYSICIAN STATEMENT I saw and evaluated the patient. I reviewed the resident's note and discussed the case with the resident. I agree with the resident's findings and plan as documented. SUBJECTIVE: OBJECTIVE: ASSESSMENT AND PLAN:
--- NOTE | 2020-04-12 19:07 | PN.GI ---
GI Progress Note Subjective: GI NOte: Absolute neutrophil count is over 1K so will proceed with endoscopies if prep can be done. It was delayed by the bone biopsy and the fentanyl will inhibit bowel evacuation. The nausea has passed and Uzma is drinking Golytely as best as she can - Objective Vital Signs: Vital Signs Temperature 97.9 F 04/12/20 14:47 Pulse Rate 96 H 04/12/20 15:16 Respiratory Rate 15 04/12/20 15:16 Blood Pressure 146/88 04/12/20 15:16 O2 Sat by Pulse Oximetry (%) 98 04/12/20 15:16 Constitutional: Calm ...Auscultate: Yes: Normoactive Bowel Sounds ...Palpate: Yes: Soft, Other (nontender) Labs: CBC, BMP 04/12/20 07:20 04/12/20 07:20 INR, PTT INR 1.13 (0.83-1.09) H 04/05/20 14:47 Assessment/Plan Impression: - Paroxysmal episodes of N/V and explosive diarrhea ? paroxysmal diarrhea vs opportunistic organism, IBD and malignancy. 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 This will also serve as screening for varices. - Chronic hepatitis with grade 1-2 fibrosis may be a combination of previous regular alcohol usage, DURÁN and DILI - Diverticulosis - Past h/o HP gastritis and candidal esophagitis Plan: -- Prep in progerss for EGD and colonoscopy tomorrow Problem List - Problems (1) Diarrhea Code(s): R19.7 - DIARRHEA, UNSPECIFIED Qualifiers: Diarrhea type: unspecified type Qualified Code(s): R19.7 - Diarrhea, unspecified (2) Weight loss Code(s): R63.4 - ABNORMAL WEIGHT LOSS (3) Chronic hepatitis Code(s): K73.9 - CHRONIC HEPATITIS, UNSPECIFIED (4) Post traumatic stress disorder (PTSD) Code(s): F43.10 - POST-TRAUMATIC STRESS DISORDER, UNSPECIFIED (5) Diverticulosis Code(s): K57.90 - DVRTCLOS OF INTEST, PART UNSP, W/O PERF OR ABSCESS W/O BLEED (6) Fatty liver Code(s): K76.0 - FATTY (CHANGE OF) LIVER, NOT ELSEWHERE CLASSIFIED (7) Fever Code(s): R50.9 - FEVER, UNSPECIFIED Qualifiers: Fever type: unspecified Qualified Code(s): R50.9 - Fever, unspecified (8) GERD (gastroesophageal reflux disease) Code(s): K21.9 - GASTRO-ESOPHAGEAL REFLUX DISEASE WITHOUT ESOPHAGITIS (9) Anorexia nervosa without bulimia Code(s): F50.00 - ANOREXIA NERVOSA, UNSPECIFIED (10) COPD (chronic obstructive pulmonary disease) Code(s): J44.9 - CHRONIC OBSTRUCTIVE PULMONARY DISEASE, UNSPECIFIED (11) HIV (human immunodeficiency virus infection) Code(s): Z21 - ASYMPTOMATIC HUMAN IMMUNODEFICIENCY VIRUS INFECTION STATUS Qualifiers: HIV symptom status: symptomatic Qualified Code(s): B20 - Human immunodeficiency virus [HIV] disease (12) Peripheral neuropathy Code(s): G62.9 - POLYNEUROPATHY, UNSPECIFIED (13) 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
[2020-04-13] MEDS: ALBUTEROL SO4 HFA INHALER IH SCH ×3 (01:00→14:39)
[2020-04-13] MEDS: INSULIN SLIDING SCALE (NOVOLOG) 1 VIAL SQ SCH ×3 (06:07→16:52)
[2020-04-13 07:42] LABS: BASO % 0.3 % (0-2.0); HEMOGLOBIN 11.1 GM/dL (10.7-15.3); LYMPH % 52.8 % (8-40); MCH 27.5 pg (25.7-33.7); MCHC 32.7 g/dl (32.0-36.0); MEAN CELL VOLUME 84.1 fl (80-96); MEAN PLT VOLUME 8.5 fl (7.5-11.1); MONO % 15.6 % (3.8-10.2); NEUT % 30.3 % (42.8-82.8); PLATELET COUNT 335 K/MM3 (134-434); RBC 4.04 M/mm3 (3.60-5.2); RDW 14.7 % (11.6-15.6); WHITE BLOOD COUNT 4.5 K/mm3 (4.0-10.0)
[2020-04-13 08:00] LABS: ALBUMIN 3.3 g/dl (3.4-5.0); BILIRUBIN,TOTAL 0.7 mg/dL (0.2-1); BLOOD UREA NITROGEN 5.4 mg/dL (7-18); CALCIUM 8.9 mg/dL (8.5-10.1); CREATININE 0.8 mg/dL (0.55-1.3); PHOSPHOROUS 3.5 mg/dL (2.5-4.9); POTASSIUM 3.7 mmol/L (3.5-5.1); TOT PROT 7.3 g/dl (6.4-8.2)
--- NOTE | 2020-04-13 10:10 | PN ---
Physical Exam: SUBJECTIVE: Patient seen and examined. Pt. endorses nausea, vomiting and diarrhea from drinking the golytely. Pt. states she vomited half of whatever she drank. Pt. endorses watery diarrhea that is not clear. Pt. denies any blood in the emesis or stool and denies fevers. OBJECTIVE: Vital Signs Period Temp Pulse Resp BP Sys/Inman Pulse Ox Last 24 Hr 97.6 F-98.7 F 63-121 15-18 104-157/58-102 96-100 GENERAL: Awake, alert, and fully oriented, in no acute distress. HEAD: Normal with no signs of trauma. EYES: Sclera anicteric, conjunctiva clear. EARS, NOSE, THROAT: Moist mucous membranes. LUNGS: Faint crackles. No wheezes. No accessory muscle use. HEART: Regular rate and rhythm, normal S1 and S2 without murmur, rub or gallop. MUSCULOSKELETAL: Normal range of motion at all joints. No bony deformities or tenderness. No CVA tenderness. UPPER EXTREMITIES: 2+ radial pulses, warm, well-perfused. No peripheral edema. LOWER EXTREMITIES: 2+ dorsal pedal pulses, warm, well-perfused. No calf tenderness. No peripheral edema. NEUROLOGICAL: No focal deficits. Normal speech. PSYCHIATRIC: Cooperative. Good eye contact. Appropriate mood and affect. SKIN: Warm, dry, normal turgor, no rashes or lesions noted. Laboratory Results - last 24 hr 04/13/20 04/13/20 06:50 06:50 WBC 4.5 RBC 4.04 Hgb 11.1 Hct 34.0 MCV 84.1 MCH 27.5 MCHC 32.7 RDW 14.7 Plt Count 335 MPV 8.5 Absolute Neuts (auto) 1.4 L Neutrophils % 30.3 L Lymphocytes % 52.8 H Monocytes % 15.6 H Eosinophils % 1.0 Basophils % 0.3 Nucleated RBC % 0 Sodium 143 Potassium 3.7 Chloride 110 H Carbon Dioxide 28 Anion Gap 5 L BUN 5.4 L Creatinine 0.8 Est GFR (CKD-EPI)AfAm 90.94 Est GFR (CKD-EPI)NonAf 78.46 Random Glucose 89 Calcium 8.9 Phosphorus 3.5 Magnesium 2.0 Total Bilirubin 0.7 AST 33 ALT 31 Alkaline Phosphatase 83 Total Protein 7.3 Albumin 3.3 L Active Medications Generic Name Dose Route Start Last Admin Trade Name Freq PRN Reason Stop Dose Admin Abacavir Sulfate 600 mg 04/07/20 10:00 04/12/20 11:05 Ziagen - PO 600 mg DAILY SHERI Administration Acetaminophen 325 mg 04/06/20 17:29 Tylenol - PO BID PRN PAIN LEVEL 6-10 Albuterol Sulfate 2 puff 04/06/20 00:00 04/13/20 06:07 Ventolin Hfa Inhaler - IH Not Given Q6HPO SHERI Albuterol/Ipratropium 1 amp 04/11/20 14:05 04/12/20 07:52 Duoneb - NEB 1 amp Q6H PRN Administration SHORTNESS OF BREATH Budesonide/Formoterol Fumarate 2 puff 04/06/20 13:45 04/12/20 23:00 Symbicort 160/4.5mcg - IH Not Given BID [facility] Bupropion HCl 200 mg 04/07/20 10:00 04/12/20 11:00 Wellbutrin - PO 200 mg DAILY [facility] Administration Cholecalciferol 2,000 unit 04/07/20 10:00 04/12/20 10:58 Vitamin D3 - PO 2,000 unit DAILY [facility] Administration Darunavir 800 mg 04/07/20 10:00 04/12/20 11:05 Prezista - PO 800 mg DAILY [facility] Administration Gabapentin 300 mg 04/06/20 22:00 04/12/20 23:00 Neurontin - PO Not Given BID [facility] Insulin Aspart 1 vial 04/05/20 22:00 04/13/20 06:07 Novolog Vial Sliding Scale - SQ Not Given ACHS [facility] Protocol Lamivudine 300 mg 04/10/20 10:00 04/12/20 11:05 Epivir - PO 300 mg DAILY SHERI Administration Magnesium Citrate 300 ml 04/12/20 16:36 Citroma - PO ONCE PRN CONSTIPATION Multivitamins 1 each 04/06/20 17:30 04/12/20 10:59 Total B With C - PO 1 each DAILY [facility] Administration Pyridoxine HCl 25 mg 04/06/20 22:00 04/12/20 23:00 Vitamin B6 - PO Not Given BID [facility] Ritonavir 100 mg 04/07/20 10:00 04/12/20 11:05 Norvir - PO 100 mg DAILY [facility] Administration Sodium Phosphate 133 ml 04/13/20 10:15 Fleet Adult Rectal Enema - [place] 04/13/20 12:16 Q2H SHERI Valacyclovir HCl 1,000 mg 04/06/20 14:00 04/12/20 23:00 Valtrex - PO Not Given BID SHERI Zolpidem Tartrate 10 mg 04/10/20 21:41 04/11/20 21:38 Ambien - PO 10 mg HS PRN Administration INSOMNIA ASSESSMENT/PLAN: Pt. is a 64 y.o. F w/ PMHx. of HIV(diagnosed in 2004, CD4:254 02/14/20), HTN, HLD, DM, COPD, GERD( ddx. w/ Nava's Esophagus?), Hx. of Anorexia nervosa, PTSD and Depression presents from home with fever associated with nausea and diarrhea. #Neutropenia On day of admission Pt. was febrile to 100.7 but at that time had ANC of 1,500. The next day ANC dropped to 0.8 and has been around that level since. Neutrophil count has since recovered without any intervention, today ANC is 1,400 Pt. was seen in December by Heme/Onc for pancytopenia and was given Neuopogen. At that time Pt. was having a diarrheal illness as well. 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 MAC is known to cause pancytopenia and did have that time during the last hospitalization. Stool studies including AFB have been negative thus far. Malignancy is possible given family history and weight loss. Will order bone marrow biopsy to evaluate for infiltrating malignancy Will evaluate for Neupogen this admission f/u EGD and colonoscopy results with biopsy Dispo: We will continue to follow the patient. Thank you for this consultative opportunity. ATTENDING PHYSICIAN STATEMENT I saw and evaluated the patient. I reviewed the resident's note and discussed the case with the resident. I agree with the resident's findings and plan as documented. SUBJECTIVE: OBJECTIVE: ASSESSMENT AND PLAN:
[2020-04-13 10:50] VITALS: BMI 24.1
[2020-04-13] MEDS: BUDESONIDE/FORMETEROL FUMARATE 160/4.5 mcg INHALER IH SCH (11:00)
[2020-04-13] MEDS: SODIUM PHOSPHATE/NA BIPHOS 133 ML ENEMA RC SCH ×2 (11:00→11:05)
--- NOTE | 2020-04-13 13:58 | PN.GI ---
GI Progress Note Subjective: GI Procedures NOte: Please see scanned EGD and colonoscopy reports. There was no gross evidence of colitis, enteritis, celiac disease, varices or Victor's mucosa. Candidal esophagitis was noted and brushings were taken to confirm this. Two small rectal polyps were removed. I have no GI objections to discharge. - Objective Vital Signs: Vital Signs Temperature 96.7 F L 04/13/20 12:47 Pulse Rate 65 04/13/20 13:51 Respiratory Rate 20 04/13/20 13:51 Blood Pressure 143/83 04/13/20 13:51 O2 Sat by Pulse Oximetry (%) 99 04/13/20 13:51 Labs: CBC, BMP 04/13/20 06:50 04/13/20 06:50 INR, PTT INR 1.13 (0.83-1.09) H 04/05/20 14:47 Problem List - Problems (1) Diarrhea Code(s): R19.7 - DIARRHEA, UNSPECIFIED Qualifiers: Diarrhea type: unspecified type Qualified Code(s): R19.7 - Diarrhea, unspec ified (2) Weight loss Code(s): R63.4 - ABNORMAL WEIGHT LOSS (3) Chronic hepatitis Code(s): K73.9 - CHRONIC HEPATITIS, UNSPECIFIED (4) Post traumatic stress disorder (PTSD) Code(s): F43.10 - POST-TRAUMATIC STRESS DISORDER, UNSPECIFIED (5) Diverticulosis Code(s): K57.90 - DVRTCLOS OF INTEST, PART UNSP, W/O PERF OR ABSCESS W/O BLEED (6) Fatty liver Code(s): K76.0 - FATTY (CHANGE OF) LIVER, NOT ELSEWHERE CLASSIFIED (7) Fever Code(s): R50.9 - FEVER, UNSPECIFIED Qualifiers: Fever type: unspecified Qualified Code(s): R50.9 - Fever, unspecified (8) GERD (gastroesophageal reflux disease) Code(s): K21.9 - GASTRO-ESOPHAGEAL REFLUX DISEASE WITHOUT ESOPHAGITIS (9) Anorexia nervosa without bulimia Code(s): F50.00 - ANOREXIA NERVOSA, UNSPECIFIED (10) COPD (chronic obstructive pulmonary disease) Code(s): J44.9 - CHRONIC OBSTRUCTIVE PULMONARY DISEASE, UNSPECIFIED (11) HIV (human immunodeficiency virus infection) Code(s): Z21 - ASYMPTOMATIC HUMAN IMMUNODEFICIENCY VIRUS INFECTION STATUS Qualifiers: HIV symptom status: symptomatic Qualified Code(s): B20 - Human immu nodeficiency virus [HIV] disease (12) Peripheral neuropathy Code(s): G62.9 - POLYNEUROPATHY, UNSPECIFIED (13) 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
[2020-04-13] MEDS: GABAPENTIN 300 MG CAPSULE PO SCH (14:32)
[2020-04-13] MEDS: lamiVUDine 150 MG TABLET PO SCH (14:32)
[2020-04-13] MEDS: VITAMIN B COMPLEX W/C COMBO TABLET (FP) PO SCH (14:38)
[2020-04-13] MEDS: RITONAVIR 100 MG TABLET PO SCH (14:38)
[2020-04-13] MEDS: DARUNAVIR ETHANOLATE 800 MG TAB PO SCH (14:38)
[2020-04-13] MEDS: valACYclovir HCL 500 MG TABLET (FP) PO SCH (14:39)
[2020-04-13] MEDS: CHOLECALCIFEROL (VIT D3) 1,000 UNIT (25 MCG) TABLET PO SCH (14:39)
[2020-04-13] MEDS: ABACAVIR SULFATE 300 MG TABLET PO SCH (14:39)
[2020-04-13] MEDS: buPROPion HCL 100 MG TABLET PO SCH (14:39)
[2020-04-13] MEDS: PYRIDOXINE HCL (B-6) 50 MG TABLET (FP) PO SCH (14:39)
--- NOTE | 2020-04-13 14:41 | PN ---
Progress Note (short form) - Note Progress Note: s/p endoscopy today adilia esophagitis noted, 2 rectal polyps s/p BM biopsy yesterday Vital Signs Period Temp Pulse Resp BP Sys/Inman Pulse Ox Last 24 Hr 96.7 F-98.7 F 61-121 15-20 104-157/58-102 96-100 cor-rrr lungs clear abd soft,nt ext no edema CBC, BMP 04/13/20 06:50 04/13/20 06:50 Microbiology 04/05/20 14:47 Blood - Peripheral Venous Blood Culture - Final NO GROWTH AFTER 5 DAYS INCUBATION 04/05/20 14:47 Blood - Peripheral Venous Blood Culture - Final NO GROWTH AFTER 5 DAYS INCUBATION 04/06/20 16:00 Stool Gram Stain - Final 04/06/20 16:00 Stool Salmonella/Shigella Culture - Final NO GROWTH OF SALMONELLA OR SHIGELLA SPECIES OBTAINED 04/06/20 16:00 Stool Campylobacter Culture - Final NO GROWTH OF CAMPYLOBACTER SPECIES OBTAINED 04/06/20 16:00 Stool Yersinia Culture - Final NO GROWTH OF YERSINIA SPECIES OBTAINED 04/06/20 16:00 Stool Vibrio Culture - Final NO GROWTH OF VIBRIO SPECIES OBTAINED 04/06/20 16:00 Stool Escherichia coli 0157 Culture - Final NO GROWTH OF E COLI 0157 OBTAINED 04/06/20 16:00 Stool AFB Smear Concentration - Preliminary 04/06/20 16:00 Stool Mycobacterial Culture - Preliminary 04/06/20 17:29 Urine - Urine Clean Catch Urine Culture - Final NO GROWTH OBTAINED 04/05/20 16:00 Stool Clostridioides difficile Antigen - Final 04/05/20 16:00 Stool Clostridioides difficile Toxin Assay - Final 04/06/20 16:00 Stool Cryptosporidium Antigen - Final 04/06/20 16:00 Stool Giardia Antigen (JUSTINA) - Final a/p s/p endoscopy- start diflucan for adilia esophagitis 200 mg today then 100 mg po daily for 10 days will d/w GI hsv-continue valtrex 500 bid for suppression copd- continue inhalers neutropenia-resolved, s/p bm biopsy HIV-continue art covid negative no objection to d/c home today can f/u with me in one week at the [facility] Problem List - Problems (1) Fever Code(s): R50.9 - FEVER, UNSPECIFIED Qualifiers: Fever type: unspecified Qualified Code(s): R50.9 - Fever, unspecified (2) Diarrhea Code(s): R19.7 - DIARRHEA, UNSPECIFIED Qualifiers: Diarrhea type: unspecified type Qualified Code(s): R19.7 - Diarrhea, unspecified (3) Neutropenia Code(s): D70.9 - NEUTROPENIA, UNSPECIFIED (4) Recurrent genital HSV (herpes simplex virus) infection Code(s): A60.00 - HERPESVIRAL INFECTION OF UROGENITAL SYSTEM, UNSPECIFIED (5) HIV (human immunodeficiency virus infection) Code(s): Z21 - ASYMPTOMATIC HUMAN IMMUNODEFICIENCY VIRUS INFECTION STATUS Qualifiers: HIV symptom status: symptomatic Qualified Code(s): B20 - Human immunodeficiency virus [HIV] disease (6) COPD (chronic obstructive pulmonary disease) Code(s): J44.9 - CHRONIC OBSTRUCTIVE PULMONARY DISEASE, UNSPECIFIED
[2020-04-13 15:22] VITALS: BP 145/102; PULSE 78; TEMP 97.5
--- NOTE | 2020-04-14 12:30 | DS ---
Physical Exam: SUBJECTIVE: No overnight events. Patient seen and examined. Endorses 1 non- watery, non-bloody bowel movement. Endorses feeling better OBJECTIVE: Vital Signs Period Temp Pulse Resp BP Sys/Inman Pulse Ox Last 24 Hr 96.7 F-97.5 F 61-78 16-20 136-145/79-102 95-100 PHYSICAL EXAM GENERAL: The patient is awake, alert, and fully oriented, in no acute distress. HEENT: Normal with no signs of trauma. No ptosis. MMM LUNGS: mild wheezing, no crackles, no accessory muscle use. HEART: Regular rate and rhythm, S1, S2 without murmur, rub or gallop. ABDOMEN: Soft, nontender, nondistended, normoactive bowel sounds, no guarding, no rebound EXTREMITIES: 2+ pulses, warm, well-perfused, no edema. Decreased sensation to palpation on Plantar and dorsal aspect of feet. NEUROLOGICAL: Normal speech, gait not observed. PSYCH: Normal mood, normal affect.. LABS Laboratory Last Values WBC 4.5 K/mm3 (4.0-10.0) 04/13/20 06:50 RBC 4.04 M/mm3 (3.60-5.2) 04/13/20 06:50 Hgb 11.1 GM/dL (10.7-15.3) 04/13/20 06:50 Hct 34.0 % (32.4-45.2) 04/13/20 06:50 MCV 84.1 fl (80-96) 04/13/20 06:50 MCH 27.5 pg (25.7-33.7) 04/13/20 06:50 MCHC 32.7 g/dl (32.0-36.0) 04/13/20 06:50 RDW 14.7 % (11.6-15.6) 04/13/20 06:50 Plt Count 335 K/MM3 (134-434) 04/13/20 06:50 MPV 8.5 fl (7.5-11.1) 04/13/20 06:50 Absolute Neuts (auto) 1.4 K/mm3 (1.5-8.0) L 04/13/20 06:50 Neutrophils % 30.3 % (42.8-82.8) L 04/13/20 06:50 Neutrophils % (Manual) 23.5 % (42.8-82.8) L 04/11/20 07:00 Band Neutrophils % 0.0 % 04/11/20 07:00 Lymphocytes % 52.8 % (8-40) H 04/13/20 06:50 Lymphocytes % (Manual) 53.1 % (8-40) H 04/11/20 07:00 Monocytes % 15.6 % (3.8-10.2) H 04/13/20 06:50 Monocytes % (Manual) 12 % (3.8-10.2) H 04/11/20 07:00 Eosinophils % 1.0 % (0-4.5) 04/13/20 06:50 Eosinophils % (Manual) 0.0 % (0-4.5) D 04/11/20 07:00 Basophils % 0.3 % (0-2.0) 04/13/20 06:50 Basophils % (Manual) 0.0 % (0-2.0) 04/11/20 07:00 Myelocytes % (Man) 0 % (0-2) 04/11/20 07:00 Promyelocytes % (Man) 0 % (0-2) 04/11/20 07:00 Blast Cells % (Manual) 0 % (0-0) D 04/11/20 07:00 Nucleated RBC % 0 % (0-0) 04/13/20 06:50 Metamyelocytes 0 % (0-2) 04/11/20 07:00 Hypochromia 0 04/11/20 07:00 Platelet Estimate Normal 04/11/20 07:00 Polychromasia 0 04/11/20 07:00 Poikilocytosis 0 04/11/20 07:00 Anisocytosis 0 04/11/20 07:00 Microcytosis 0 04/11/20 07:00 Macrocytosis 0 04/11/20 07:00 Ovalocytes 1+ 04/10/20 06:45 ESR 81 mm/hr (0-30) H 04/05/20 14:47 Retic Count 0.84 % (0.5-1.5) D 04/11/20 07:00 PT with INR 13.40 SEC (9.7-13.0) H 04/05/20 14:47 INR 1.13 (0.83-1.09) H 04/05/20 14:47 PTT (Actin FS) 36.1 SECONDS (25.2-36.5) 04/05/20 14:47 D-Dimer 3788 ng/ml (0-500) H 04/05/20 15:00 Anticoagulation Therapy No Result Required. 04/05/20 14:47 Puncture Site No Result Required. 04/05/20 14:47 Patient Temperature No Result Required. 04/05/20 14:47 ABG pH 7.330 (7.350-7.450) L 04/05/20 14:47 ABG pCO2 43.30 mmHg (35-45) 04/05/20 14:47 ABG pO2 32.3 mmHg (80-100) L* 04/05/20 14:47 ABG HCO3 22.3 mmol/L (22-27) 04/05/20 14:47 ABG O2 Sat (Measured) 57.7 mmHg (95-98) L 04/05/20 14:47 ABG O2 Content No Result Required. 04/05/20 14:47 ABG Base Excess -3.6 mmol/L (-2-2) L 04/05/20 14:47 Abdulaziz Test No Result Required. 04/05/20 14:47 Patient On Oxygen No Result Required. 04/05/20 14:47 O2 Delivery Device No Result Required. 04/05/20 14:47 Oxygen Flow Rate No Result Required. 04/05/20 14:47 Vent Mode No Result Required. 04/05/20 14:47 Vent Rate No Result Required. 04/05/20 14:47 Mechanical Rate No Result Required. 04/05/20 14:47 PEEP No Result Required. 04/05/20 14:47 Pressure Support Vent No Result Required. 04/05/20 14:47 Sodium 143 mmol/L (136-145) 04/13/20 06:50 Potassium 3.7 mmol/L (3.5-5.1) 04/13/20 06:50 Chloride 110 mmol/L (98-107) H 04/13/20 06:50 Carbon Dioxide 28 mmol/L (21-32) 04/13/20 06:50 Anion Gap 5 MMOL/L (8-16) L 04/13/20 06:50 BUN 5.4 mg/dL (7-18) L 04/13/20 06:50 Creatinine 0.8 mg/dL (0.55-1.3) 04/13/20 06:50 Est GFR (CKD-EPI)AfAm 90.94 04/13/20 06:50 Est GFR (CKD-EPI)NonAf 78.46 04/13/20 06:50 POC Glucometer 104 UNITS (80-120) 04/06/20 06:49 Random Glucose 89 mg/dL (74-106) 04/13/20 06:50 Lactic Acid 1.1 mmol/L (0.4-2.0) 04/05/20 14:47 Calcium 8.9 mg/dL (8.5-10.1) 04/13/20 06:50 Phosphorus 3.5 mg/dL (2.5-4.9) 04/13/20 06:50 Magnesium 2.0 mg/dL (1.8-2.4) 04/13/20 06:50 Ferritin 808.5 ng/ml (8-388) H 04/05/20 14:47 Total Bilirubin 0.7 mg/dL (0.2-1) 04/13/20 06:50 AST 33 U/L (15-37) 04/13/20 06:50 ALT 31 U/L (13-61) 04/13/20 06:50 Alkaline Phosphatase 83 U/L (45-117) 04/13/20 06:50 LD Total 548 U/L (84-246) H 04/05/20 14:47 Troponin I < 0.02 ng/ml (0.00-0.05) 04/05/20 14:47 C-Reactive Protein 1.7 MG/DL (0.00-0.3) H 04/05/20 14:47 Total Protein 7.3 g/dl (6.4-8.2) 04/13/20 06:50 Albumin 3.3 g/dl (3.4-5.0) L 04/13/20 06:50 Tiss Transglutamin IgG < 2 U/mL (0-5) 04/10/20 06:45 Tiss Transglutamin IgA < 2 U/mL (0-3) 04/10/20 06:45 COVID-19 ([facility]ONTY) Not detected (Not Detected) 04/10/20 09:00 HOSPITAL COURSE: Pt is 64 YO F PMH HTN, DM, HIV (CD4 count 254 on 02/14/20, adherent on HAART) p/w fever, chills, generalized weakness, diarrhea. Admitted for sepsis 2/2 unknown etiology. -COVID negative. blood cx negative, stool cx negative. Negative for crypto/giardia antigen negative. legionella antigen. S/p vanc, meropenem in ED. Given cefepime 1 gm Q8H & metronidazole 500 mg Q8H. CTA no PE; vascular studies: no DVT. CTAP no contrast: increased fluid within colon. Pt underwent colonoscopy and was advised to follow-up pathology results outpt. CBC w/ diff showed increased lymphocyte percentage, resulting in bone biopsy being performed. Pt's symptoms improved. Stable for discharge. Date of Admission:04/05/20 Date of Discharge: 04/14/20 Minutes to complete discharge: 43 Discharge Summary Problems reviewed: Yes Reason For Visit: ACUTE KIDNEY INJURY SUSPECTED COVID ACUTE RESP PAULY Condition: Stable - Instructions Diet, Activity, Other Instructions: You came in with fever, chills, generalized weakness, diarrhea. You were found to be negative for COVID. Culture of your blood and stool were negative for bacteria or other signs of infection. Imaging of your abdomen showed increased fluid within your colon. You underwent a colonoscopy and an endoscopy to evaluate your upper and lower intestines. There is a possible fungal infection in your esophagus. You will be given anti-fungal medication for this. Two polyps were removed from your rectum. There was no obvious source of your diarrhea. It could be that you had stool impaction, with liquid stool flowing around the impaction. Please follow-up with your marketing and outreach coordinator for the pathology results. You were found to have decreased white blood cells. However, a particular type of white blood cell called lymphocytes were found to be elevated. You underwent a bone biopsy for further evaluation. You white blood cell count improved. Please follow-up with your oncologist for results of the bone biopsy. Your symptoms of diarrhea improved. You were determined to be stable for discharge. MEDICATIONS: -Please START taking: --Miralax 17g, daily --Fluconazole[DIFLUCAN]: --take 200mg(2tablets) on the first day --take 100 mg once a day for the next ten days --Ventolin[Albuterol] neubilizer treatments, take 1 ampule every 4-5hours as needed for wheezing, chest tightness. Please continue with other home medications as prescribed. Please maintain a high fiber diet FOLLOW-UP Please follow-up with your primary care physician, Dr. Ivey, in one week at the [facility] to discuss this recent hospitalization and for general health maintenance. Please call the office on Thursday(04/16/20) to arrange an appointment. Please follow-up with you marketing and outreach coordinator, Dr. Ruvalcaba, to discuss the pathology results of your colonoscopy & endoscopy. Please follow-up with your oncologist, Dr. Barb Gill,to discuss your bone biopsy results. ADDITIONAL INFORMATION Please call 911 or come directly to the emergency department if you experience shortness of breath, unusual bleeding, loss of alertness/awareness, loss of function, chest pain, unusual headache, vision change, difficulty speaking, numbness, tingling, or any alarming symptoms. Referrals: Jamila Ivey MD [Primary Care Provider] - Ras Ruvalcaba MD [Staff Physician] - Barb Gill MD [Staff Physician] - Disposition: HOME - Home Medications Comprehensive Discharge Medication List: Ambulatory Orders Umeclidinium [place] [Incruse Ellipta] 62.5 mcg IH DAILY 01/03/20 Pyridoxine HCl (B-6) [Vitamin B6 -] 25 mg PO BID #56 tablet 01/06/20 Ergocalciferol (Vitamin D2) [Vitamin D2] 2,000 unit PO DAILY #30 tablet 01/12/20 Vitamin B Complex [B Complex] 1 each PO DAILY #30 tablet 02/14/20 Oxycodone HCl/Acetaminophen [Endocet 5-325 Tablet] 1 each PO BID PRN #60 tablet MDD 2 03/13/20 Abacavir Sulfate/Lamivudine [Abacavir-Lamivudine 600-300 mg] 1 each PO DAILY #30 tablet 03/29/20 Bupropion HCl [Bupropion HCl ER] 200 mg PO AM #30 tab.er.12h 03/29/20 Darunavir Ethanolate [Prezista -] 800 mg PO DAILY #30 tablet 03/29/20 Gabapentin [Neurontin -] 300 mg PO Q12H #60 cap 03/29/20 Ritonavir [Norvir -] 100 mg PO DAILY #30 tab 03/29/20 Valacyclovir HCl [Valtrex -] 500 mg PO BID #60 tablet 03/29/20 Zolpidem Tartrate [Ambien] 10 mg PO HS #30 tablet MDD 1 03/29/20 Darunavir Ethanolate [Prezista] 800 mg PO DAILY 04/09/20 Albuterol 0.083% Nebulizer Olivia [Ventolin 0.083% Nebulizer Soln -] 1 neb NEB Q6H PRN #30 vial 04/13/20 Fluconazole [Diflucan -] 100 mg PO DAILY #12 tablet 04/13/20 Polyethylene Glycol 3350 [Miralax (For Bowel Prep) -] 17 gm PO DAILY #2 bottle 04/13/20 This patient is new to me today: No Emergency Visit: Yes ED Registration Date: 04/05/20 Care time: The patient presented to the Emergency Department on the above date and was hospitalized for further evaluation of their emergent condition. Critical Care patient: No - Discharge Referral Referred to [facility] Med P.C.: No ATTENDING PHYSICIAN STATEMENT I saw and evaluated the patient. I reviewed the resident's note and discussed the case with the resident. I agree with the resident's findings and plan as documented. SUBJECTIVE: OBJECTIVE: ASSESSMENT AND PLAN:
--- NOTE | 2020-04-16 17:10 | PATH ---
Cytology Non-Gynecological Report Patient Name: ANIKA ALLEN Med. Rec. #: [id number] /Age/Gender: 1955 (Age: 64) / F Account: [id number] Location: [address] [place] [address]/[facility] Taken: 04/13/2020 Received: 04/13/2020 Reported: 04/16/2020 Physicians: Agustin Chavez M.D. Specimen(s) Received ESOPHAGEAL BRUSHING Clinical History Meredith esophagitis Final Diagnosis ESOPHAGEAL BRUSHING FOR CYTOLOGY: SATISFACTORY FOR EVALUATION. SQUAMOUS CELLS WITH ACUTE INFLAMMATION AND REACTIVE CELLULAR CHANGES. MEREDITH SPECIES. SCATTERED SQUAMOUS CELLS WITH REACTIVE CELLULAR CHANGES NOTED. NEUTROPHILS PRESENT. FUNGAL FORMS MORPHOLOGICALLY CONSISTENT WITH MEREDITH SPECIES PRESENT. Comment: See concurrent biopsy ([id number]). Electronically Signed Aleksandra Guzman M.D. Gross Description Received one slide fixed in 95% alcohol which was Pap stained
--- NOTE | 2020-04-16 17:33 | PATH ---
Surgical Pathology Report Patient Name: ANIKA ALLEN [facility]. Rec. #: [id number] /Age/Gender: 1955 (Age: 64) / F Account: [id number] Location: [address] [place] [address]/[facility] Taken: 04/13/2020 Received: 04/13/2020 Reported: 04/16/2020 Physicians: Inderjit Rodarte M.D. Specimen(s) Received A: SECOND PORTION DUODENUM AND DUODENAL BULB B: ANTRUM C: GE JUNCTION D: CECUM E: ILEUM F: SIGMOID G: RECTAL POLYP Clinical History Surveillance varices, history of Nava's surveillance, colon screening, unexplained diarrhea rule out colitis Final Diagnosis A. DUODENUM, SECOND PORTION AND DUODENAL BULB, BIOPSY: DUODENAL MUCOSA WITH MILD CHRONIC DUODENITIS AND PRESERVED VILLOUS ARCHITECTURE. B. STOMACH, ANTRUM, BIOPSY: GASTRIC ANTRAL MUCOSA WITH SEVERE CHRONIC ACTIVE GASTRITIS. IMMUNOHISTOCHEMICAL STAIN FOR H. PYLORI IS POSITIVE (MANY). C. GE JUNCTION, BIOPSY: SQUAMOUS MUCOSA WITH CHANGES OF MILD REFLUX TYPE ESOPHAGITIS. NO COLUMNAR MUCOSA, INTESTINAL METAPLASIA, OR DYSPLASIA IDENTIFIED. D. CECUM, BIOPSY: COLONIC MUCOSA WITH SMALL LYMPHOID AGGREGATES. E. ILEUM, BIOPSY: SMALL BOWEL MUCOSA WITHOUT SIGNIFICANT PATHOLOGIC FINDINGS. F. SIGMOID, BIOPSY: COLONIC MUCOSA WITH SMALL LYMPHOID AGGREGATE AND MILD LAMINA PROPRIA HEMORRHAGE. G. RECTAL POLYP, BIOPSY: HYPERPLASTIC POLYP. Comment: See concurrent esophageal brushing cytology ([id number]). Positive and negative controls (internal if applicable) show appropriate results. Electronically Signed Aleksandra Guzman M.D. Gross Description A. Received in formalin, labeled "biopsy second portion of duodenum and duodenal bulb" are 3 lackey, irregular portions of soft tissue ranging from 0.4-0.6 cm. in greatest dimension. The specimens are submitted in toto in one cassette. B. Received in formalin, labeled "biopsy antrum" are 3 lackey, irregular portions of soft tissue averaging 0.2 cm. in greatest dimension. The specimens are submitted in toto in one cassette. C. Received in formalin, labeled "biopsy GE junction" are 2 lackey, irregular portions of soft tissue averaging 0.5 cm. in greatest dimension. The specimens are submitted in toto in one cassette. D. Received in formalin, labeled "biopsy cecum" are 2 lackey, irregular portions of soft tissue measuring 0.3 and 0.5 cm. in greatest dimension. The specimens are submitted in toto in one cassette. E. Received in formalin, labeled "biopsy ileum" are 3 lackey, irregular portions of soft tissue ranging from 0.3-0.5 cm. in greatest dimension. The specimens are submitted in toto in one cassette. F. Received in formalin, labeled "biopsy sigmoid" are 2 lackey, irregular portions of soft tissue measuring 0.2 and 1.1 cm. in greatest dimension. The specimens are submitted in toto in one cassette. G. Received in formalin, labeled "biopsy rectal polyp" are 2 lackey, irregular portions of soft tissue measuring 0.2 and 0.3 cm. in greatest dimension. The specimens are submitted in toto in one cassette. 04/13/2020 [facility]04/13/2020
--- NOTE | 2020-04-23 17:36 | PATH ---
Surgical Pathology Report Patient Name: ANIKA ALLEN [facility]. Rec. #: [id number] /Age/Gender: 1955 (Age: 64) / F Account: [id number] Location: [address] [place] [address] Taken: 04/12/2020 Received: 04/12/2020 Reported: 04/24/2020 Physicians: Inderjit Gamez MD Specimen(s) Received A: BONE MARROW BIOPSY B: BONE MARROW CLOT C: BONE MARROW ASPIRATION SMEARS D: BONE MARROW BLOOD Clinical History Neutropenia, Eval for infiltrating malignancy HIV, Leukopenia, FUO Rule out lymphoma, rule out STEW, Fungal/mycobacterial Final Diagnosis A-D. BONE MARROW, CORE, CLOT, ASPIRATE, SMEARS, BIOPSY: NORMOCELLULAR MARROW WITH MATURING TRILINEAGE HEMATOPOIESIS. NO EVIDENCE OF AN INVOLVEMENT BY LYMPHOMA AND GRANULOMA. SPECIAL STAINS FOR AFB AND GMS ARE NEGATIVE PLASMA CELLS (<5%) ARE POLYTYPIC. NORMAL KARYOTYPIC ANALYSIS. COMMENT: Flow cytometry does not show evidence for an increased blast population, abnormal myeloid maturation, lymphoproliferative disorder or a plasma cell dyscrasia. Correlation with relevant clinical and laboratory findings is recommended. This case was sent to Dr. Molly Pickering from [facility], [place], [place] ([id number]) the diagnosis above reflects her opinion. FLOW CYTOMETRY ANALYSIS performed and interpreted at [facility] ([id number]) shows the following: INTERPRETATION: In the sample analyzed, there is no evidence for abnormal myeloid maturation or an increased blast population. There is no evidence for a lymphoproliferative disorder or plasma cell dyscrasia. CHROMOSOME ANALYSIS performed and interpreted at [facility], [place], [place] (Specimen #: [id number]) shows the following: RESULTS: 46, XX [20] Female karyotype See [facility] report for additional details. Electronically Signed Aleksandra Guzman M.D. Gross Description A. Received in formalin labeled "bone marrow biopsy," is a 0.5 cm in length x 0.1 cm in diameter lackey, cylindrical portion of bone. The specimen is submitted in toto in one cassette, following decalcification. B. Received in formalin labeled "bone marrow biopsy," is a 2.7 x 2.6 x 0.3 cm aggregate of red-brown blood clot. The formalin is filtered and the specimen is entirely submitted in one cassette. C. Received are 10 bone marrow aspiration smear slides. D. Received are 2 green top tubes and 2 lavender top tubes of blood which are sent to [facility]. 04/13/2020 [facility]04/13/2020
== END 2020-04-13 18:42 | disposition home or self-care (01) | DRG 682 ==
LOC: JER 14:26 → JERBED 17:33 → J6S 22:15
PROVIDERS: ADMIT Internal Medicine; ATTEND Internal Medicine
PROC: 07DR3ZX Extraction of Iliac Bone Marrow, Percutaneous Approach, Diagnostic (ICD-10-PCS; principal; 2020-04-12)
PROC: 0DBP8ZX Excision of Rectum, Via Natural or Artificial Opening Endoscopic, Diagnostic (ICD-10-PCS; 2020-04-12)
PROC: 0DBH8ZX Excision of Cecum, Via Natural or Artificial Opening Endoscopic, Diagnostic (ICD-10-PCS; 2020-04-12)
PROC: 0DBN8ZX Excision of Sigmoid Colon, Via Natural or Artificial Opening Endoscopic, Diagnostic (ICD-10-PCS; 2020-04-12)
PROC: 0DBB8ZX Excision of Ileum, Via Natural or Artificial Opening Endoscopic, Diagnostic (ICD-10-PCS; 2020-04-12)
PROC: 0DB98ZX Excision of Duodenum, Via Natural or Artificial Opening Endoscopic, Diagnostic (ICD-10-PCS; 2020-04-12)
PROC: 0DB78ZX Excision of Stomach, Pylorus, Via Natural or Artificial Opening Endoscopic, Diagnostic (ICD-10-PCS; 2020-04-12)
PROC: 0DB58ZX Excision of Esophagus, Via Natural or Artificial Opening Endoscopic, Diagnostic (ICD-10-PCS; 2020-04-12)
DX: N17.9 Acute kidney failure, unspecified (principal); J96.01 Acute respiratory failure with hypoxia; E87.0 Hyperosmolality and hypernatremia; B37.81 Candidal esophagitis; I10 Essential (primary) hypertension; E78.5 Hyperlipidemia, unspecified; E11.9 Type 2 diabetes mellitus without complications; Z21 Asymptomatic human immunodeficiency virus [HIV] infection status; K21.9 Gastro-esophageal reflux disease without esophagitis; R63.0 Anorexia; Z68.24 Body mass index [BMI] 24.0-24.9, adult; F41.8 Other specified anxiety disorders; G47.00 Insomnia, unspecified; K76.0 Fatty (change of) liver, not elsewhere classified; D64.9 Anemia, unspecified; R50.9 Fever, unspecified; M79.10 Myalgia, unspecified site; J44.9 Chronic obstructive pulmonary disease, unspecified; Z88.1 Allergy status to other antibiotic agents; D70.9 Neutropenia, unspecified; R19.7 Diarrhea, unspecified; E86.0 Dehydration; G62.9 Polyneuropathy, unspecified; E87.6 Hypokalemia; K57.90 Diverticulosis of intestine, part unspecified, without perforation or abscess without bleeding; F43.10 Post-traumatic stress disorder, unspecified; K73.9 Chronic hepatitis, unspecified; K22.70 Barrett's esophagus without dysplasia; K62.1 Rectal polyp
CPT/HCPCS: 20225; 36415; 36600; 71045-TC-FY; 71250-TC; 71275-TC; 74176-TC; 80048; 80053; 82728; 82803; 82962; 83516; 83605; 83615; 83735; 84100; 84484; 85025; 85044; 85379; 85610; 85651; 85730; 86140; 87040; 87045; 87046; 87086; 87116; 87205; 87206; 87324; 87328; 87329; 87449; 88104; 88300-TC; 88305-TC; 88311-TC; 88313-TC; 93005; 93010; 93970-TC; 94640; 97116-GP; 97161-GP; 99285-25; J0131; Q9967; U0003

== ENCOUNTER 2020-10-20 17:22 | Inpatient (IN) | payer OTHER ==
[2020-10-20 18:03] VITALS: BMI 18.8
[2020-10-20] MEDS ORDERED: LACTATED RINGERS SOLUTION 1000 ML INFUS.BAG IV ONE (18:51)
[2020-10-20] MEDS ORDERED: SODIUM CHLORIDE 0.9% 1000 ML INFUS.BAG IV ONE ×2 (18:53→19:34)
[2020-10-20 19:31] LABS: BASO % 1.3 % (0-2.0); EOS % 0.8 % (0-4.5); HEMATOCRIT 36.4 % (32.4-45.2); LYMPH % 16.3 % (8-40); MCH 27.6 pg (25.7-33.7); MCHC 32.9 g/dl (32.0-36.0); MEAN CELL VOLUME 84.1 fl (80-96); MEAN PLT VOLUME 10.5 fl (7.5-11.1); MONO % 12.6 % (3.8-10.2); RBC 4.33 M/mm3 (3.60-5.2); RDW 15.4 % (11.6-15.6); WHITE BLOOD COUNT 3.7 K/mm3 (4.0-10.0)
[2020-10-20 19:41] LABS: INR 1.1 (0.83-1.09); PROTHROMBIN TIME (PATIENT) 13.3 SEC (9.7-13.0)
[2020-10-20 19:44] LABS: ACTIVATED PTT 39.1 SECONDS (25.2-36.5)
[2020-10-20 19:46] LABS: CHLORIDE 99 mmol/L (98-107); POTASSIUM 4.9 mmol/L (3.5-5.1); SODIUM 132 mmol/L (136-145)
[2020-10-20 19:48] LABS: CALCIUM 8.4 mg/dL (8.5-10.1)
[2020-10-20 19:49] LABS: ALBUMIN 3.5 g/dl (3.4-5.0); ANION GAP 7 MMOL/L (8-16); BLOOD UREA NITROGEN 18.2 mg/dL (7-18); CO2 27 mmol/L (21-32); GLUCOSE,RANDOM 83 mg/dL (74-106); MAGNESIUM 1.6 mg/dL (1.8-2.4)
[2020-10-20 19:52] LABS: CREATININE 1.1 mg/dL (0.55-1.3); SGOT/AST 330 U/L (15-37); SGPT/ALT 118 U/L (13-61)
[2020-10-20 19:54] LABS: BILIRUBIN,TOTAL 0.4 mg/dL (0.2-1); TOT PROT 8.6 g/dl (6.4-8.2)
[2020-10-20 19:55] LABS: ALK PHOS 124 U/L (45-117)
[2020-10-20 19:55] LABS: VENOUS BASE EXCESS -1.2 mmol/L (-2-2); VENOUS O2 SATURATION 40.5 % (70-80); VENOUS PCO2 41.5 mmHg (38-52); VENOUS PH 7.378 (7.310-7.410)
[2020-10-20] MEDS ORDERED: MAGNESIUM SULF 50% (8.12 MEQ/2 ML-1 GM VIAL) IVPB ONE (20:32)
[2020-10-20] MEDS ORDERED: MAGNESIUM 1GM/D5W - 1 GM/100 ML IVPB IVPB ONE (20:41)
[2020-10-20 20:58] LABS: POTASSIUM 4.9 mmol/L (3.5-5.1)
[2020-10-20 21:29] LABS: ANISOCYTOSIS 1+; MACROCYTOSIS 0; OVALOCYTE 1+; PLATELET ESTIMATE DECREASED
[2020-10-20 21:38] LABS: PLATELET COUNT 90 K/MM3 (134-434)
[2020-10-21] MEDS: SODIUM CHLORIDE 1,000 ML IV SCH (06:47)
[2020-10-21] MEDS: INSULIN SLIDING SCALE (NOVOLOG) 1 VIAL SQ SCH ×4 (07:59→22:00)
[2020-10-21 08:04] LABS: BASO % 0.7 % (0-2.0); HEMATOCRIT 31.8 % (32.4-45.2); HEMOGLOBIN 10.6 GM/dL (10.7-15.3); LYMPH % 17.7 % (8-40); MCH 27.3 pg (25.7-33.7); MCHC 33.4 g/dl (32.0-36.0); MEAN CELL VOLUME 81.8 fl (80-96); MEAN PLT VOLUME 10.4 fl (7.5-11.1); MONO % 15.7 % (3.8-10.2); NEUT % 65.9 % (42.8-82.8); PLATELET COUNT 68 K/MM3 (134-434); RBC 3.89 M/mm3 (3.60-5.2); RDW 15.2 % (11.6-15.6)
[2020-10-21 08:19] LABS: POTASSIUM 3.9 mmol/L (3.5-5.1)
[2020-10-21] MEDS ORDERED: ENOXAPARIN NA (PORCINE) 40 MG/0.4 ML DISP.SYRIN SQ ONE (08:19)
[2020-10-21 08:32] LABS: BLOOD UREA NITROGEN 16.3 mg/dL (7-18)
[2020-10-21 08:33] LABS: ALBUMIN 3.1 g/dl (3.4-5.0); MAGNESIUM 1.9 mg/dL (1.8-2.4)
[2020-10-21 08:34] LABS: WHITE BLOOD COUNT 1.8 K/mm3 (4.0-10.0)
[2020-10-21 08:35] LABS: CREATININE 0.8 mg/dL (0.55-1.3); PHOSPHOROUS 2.9 mg/dL (2.5-4.9)
[2020-10-21 08:36] LABS: BILIRUBIN,TOTAL 0.5 mg/dL (0.2-1); TOT PROT 7.6 g/dl (6.4-8.2)
[2020-10-21 08:43] LABS: EPI CELLS 6 /uL (0-25.1); HYALINE CASTS 3 /uL (0-3.1); PH,URINE 5.5 (5.0-8.0); URINE APPEARANCE CLOUDY; URINE BACTERIA 193 /uL (0-1359); URINE BILIRUBIN NEGATIVE (NEGATIVE); URINE COLOR YELLOW; URINE GLUCOSE (UA) NEGATIVE (NEGATIVE); URINE KETONE TRACE (NEGATIVE); URINE LEUK ESTERASE 1+ (NEGATIVE); URINE NITRITE NEGATIVE (NEGATIVE); URINE PROTEIN 1+ (NEGATIVE); URINE UROBILINOGEN 0.2 mg/dL (0.2-1.0); URINE WBC 191 /uL (0-25.8)
[2020-10-21 09:21] LABS: ANISOCYTOSIS 2+; MACROCYTOSIS 0; PLATELET ESTIMATE DECREASED
[2020-10-21] MEDS: ENOXAPARIN NA (PORCINE) 40 MG/0.4 ML DISP.SYRIN SQ SCH (10:00)
[2020-10-21 22:01] VITALS: BP 102/67; PULSE 105; TEMP 98
[2020-10-22] MEDS: INSULIN SLIDING SCALE (NOVOLOG) 1 VIAL SQ SCH ×2 (06:15→14:14)
[2020-10-22] MEDS: SODIUM CHLORIDE 1,000 ML IV SCH (06:15)
[2020-10-22] MEDS ORDERED: ACETAMINOPHEN 325 MG TABLET (FP) PO PRN (10:09)
[2020-10-22] MEDS ORDERED: ALBUTEROL SO4 HFA INHALER IH PRN (10:11)
[2020-10-22] MEDS ORDERED: PYRIDOXINE HCL (B-6) 50 MG TABLET (FP) PO SCH (10:15)
[2020-10-22] MEDS ORDERED: oxyCODONE HCL 5 MG TABLET PO PRN (10:39)
[2020-10-22] MEDS: ENOXAPARIN NA (PORCINE) 40 MG/0.4 ML DISP.SYRIN SQ SCH (11:00)
[2020-10-22] MEDS ORDERED: GABAPENTIN 100 MG CAPSULE ONE (11:37)
[2020-10-22] MEDS ORDERED: ENOXAPARIN NA (PORCINE) 40 MG/0.4 ML DISP.SYRIN SQ ONE (11:38)
[2020-10-22] MEDS ORDERED: INSULIN SLIDING SCALE (NOVOLOG) 1 VIAL SQ SCH (11:42)
[2020-10-22] MEDS ORDERED: PRAMIPEXOLE DIHYDROCHLORIDE 0.125 MG TABLET PO SCH (14:00)
[2020-10-22] MEDS ORDERED: GABAPENTIN 300 MG CAPSULE PO SCH (14:00)
[2020-10-22 19:07] LABS: HEP B CORE AB, TOT Negative (Negative)
== END 2020-10-22 16:49 | disposition left against medical advice (07) | DRG 975 ==
LOC: JER 17:22 → JERBED 22:44
PROVIDERS: ADMIT Internal Medicine
DX: J18.9 Pneumonia, unspecified organism (principal); F50.00 Anorexia nervosa, unspecified; B20 Human immunodeficiency virus [HIV] disease; Z68.1 Body mass index [BMI] 19.9 or less, adult; E87.1 Hypo-osmolality and hyponatremia; I10 Essential (primary) hypertension; E78.5 Hyperlipidemia, unspecified; E11.9 Type 2 diabetes mellitus without complications; K21.9 Gastro-esophageal reflux disease without esophagitis; F43.10 Post-traumatic stress disorder, unspecified; K76.0 Fatty (change of) liver, not elsewhere classified; G47.00 Insomnia, unspecified; I95.9 Hypotension, unspecified; F41.8 Other specified anxiety disorders; E86.0 Dehydration; E83.42 Hypomagnesemia; D72.819 Decreased white blood cell count, unspecified; D69.6 Thrombocytopenia, unspecified; R62.7 Adult failure to thrive; R94.5 Abnormal results of liver function studies; J44.9 Chronic obstructive pulmonary disease, unspecified; Z88.0 Allergy status to penicillin; Z91.14 Patient's other noncompliance with medication regimen
CPT/HCPCS: 36415; 71045-TC-FY; 71250-TC; 74176-TC; 80053; 81003; 82550; 82728; 82803; 82962; 83605; 83615; 83735; 84100; 84132; 84443; 84484; 85025; 85610; 85730; 86140; 86359; 86360; 86704; 86706; 86707; 86708; 86709; 86803; 87040; 87086; 87340; 87536; 87804; 87899; 93005; 93010; 99285-25; C9803; U0003

== ENCOUNTER 2020-10-25 10:30 | Inpatient (IN) | payer OTHER ==
[2020-10-25] MEDS ORDERED: SODIUM CHLORIDE 1,742 ML IV ONE (11:40)
[2020-10-25 13:23] LABS: BASO % 0.5 % (0-2.0); EOS % 0.2 % (0-4.5); HEMATOCRIT 30.8 % (32.4-45.2); HEMOGLOBIN 10.1 GM/dL (10.7-15.3); LYMPH % 41.2 % (8-40); MCH 27.2 pg (25.7-33.7); MCHC 32.6 g/dl (32.0-36.0); MEAN CELL VOLUME 83.4 fl (80-96); MEAN PLT VOLUME 10.9 fl (7.5-11.1); NEUT % 29.1 % (42.8-82.8); PLATELET COUNT 82 K/MM3 (134-434); RBC 3.69 M/mm3 (3.60-5.2); RDW 15.6 % (11.6-15.6)
[2020-10-25 13:30] LABS: VENOUS BASE EXCESS 0.5 mmol/L (-2-2); VENOUS O2 SATURATION 17.4 % (70-80); VENOUS PCO2 51.5 mmHg (38-52); VENOUS PH 7.336 (7.310-7.410)
[2020-10-25 13:34] LABS: INR 1.06 (0.83-1.09)
[2020-10-25 13:37] LABS: ACTIVATED PTT 37.5 SECONDS (25.2-36.5)
[2020-10-25 13:43] LABS: CHLORIDE 106 mmol/L (98-107); POTASSIUM 3.8 mmol/L (3.5-5.1); SODIUM 142 mmol/L (136-145)
[2020-10-25 13:46] LABS: CALCIUM 7.8 mg/dL (8.5-10.1)
[2020-10-25 13:47] LABS: ALBUMIN 3.2 g/dl (3.4-5.0); ANION GAP 10 MMOL/L (8-16); BLOOD UREA NITROGEN 13.8 mg/dL (7-18); CO2 26 mmol/L (21-32); GLUCOSE,RANDOM 71 mg/dL (74-106); MAGNESIUM 1.6 mg/dL (1.8-2.4)
[2020-10-25 13:50] LABS: BILIRUBIN,DIRECT 0.2 mg/dL (0.0-0.2); CREATININE 1.3 mg/dL (0.55-1.3); SGOT/AST 339 U/L (15-37); SGPT/ALT 131 U/L (13-61)
[2020-10-25 13:52] LABS: BILIRUBIN,TOTAL 0.7 mg/dL (0.2-1); TOT PROT 7.7 g/dl (6.4-8.2)
[2020-10-25 13:53] LABS: ALK PHOS 116 U/L (45-117); LDH 664 U/L (84-246)
[2020-10-25 14:52] LABS: ANISOCYTOSIS 1+; MACROCYTOSIS 0; OVALOCYTE 1+; PLATELET ESTIMATE DECREASED
[2020-10-25] MEDS ORDERED: NYSTATIN 500,000 UNITS/5 ML SUSPENSION PO ONE (16:30)
[2020-10-25] MEDS: SODIUM CHLORIDE 1,000 ML IV SCH (16:59)
[2020-10-25] MEDS ORDERED: ALBUTEROL SO4 HFA INHALER IH PRN (17:12)
[2020-10-25] MEDS: GABAPENTIN 300 MG CAPSULE PO SCH (22:48)
[2020-10-25] MEDS: valACYclovir HCL 500 MG TABLET (FP) PO SCH (22:48)
[2020-10-25] MEDS: PRAMIPEXOLE DIHYDROCHLORIDE 0.125 MG TABLET PO SCH (22:48)
[2020-10-25] MEDS: PYRIDOXINE HCL (B-6) 50 MG TABLET (FP) PO SCH (22:49)
[2020-10-25] MEDS ORDERED: PT OWN MED DRAWER 7, Y5N ONE (23:34)
[2020-10-26] MEDS ORDERED: MAGNESIUM SULF 50% (8.12 MEQ/2 ML-1 GM VIAL) IVPB ONE (05:02)
[2020-10-26] MEDS: SODIUM CHLORIDE 1,000 ML IV SCH (05:21)
[2020-10-26] MEDS ORDERED: PT OWN MED DRAWER 7, Y5N ONE ×4 (05:27→22:29)
[2020-10-26] MEDS: PRAMIPEXOLE DIHYDROCHLORIDE 0.125 MG TABLET PO SCH ×3 (05:34→22:31)
[2020-10-26] MEDS: GABAPENTIN 300 MG CAPSULE PO SCH ×3 (05:34→22:31)
[2020-10-26] MEDS ORDERED: FLU VACCINE (FLULAVAL) PF 60 MCG/0.5 ML SYRINGE 2020-2021 IM ONE (06:45)
[2020-10-26 08:18] LABS: POTASSIUM 3.5 mmol/L (3.5-5.1)
[2020-10-26 08:21] LABS: BLOOD UREA NITROGEN 9.2 mg/dL (7-18); CALCIUM 7.1 mg/dL (8.5-10.1); MAGNESIUM 1.6 mg/dL (1.8-2.4)
[2020-10-26 08:24] LABS: CREATININE 0.8 mg/dL (0.55-1.3); PHOSPHOROUS 2.8 mg/dL (2.5-4.9)
[2020-10-26 08:25] LABS: BILIRUBIN,TOTAL 0.6 mg/dL (0.2-1)
[2020-10-26 08:28] LABS: ALBUMIN 2.4 g/dl (3.4-5.0)
[2020-10-26 09:04] LABS: BASO % 0.7 % (0-2.0); EOS % 0.5 % (0-4.5); HEMATOCRIT 26.3 % (32.4-45.2); HEMOGLOBIN 8.8 GM/dL (10.7-15.3); LYMPH % 35.3 % (8-40); MCH 27.6 pg (25.7-33.7); MCHC 33.6 g/dl (32.0-36.0); MEAN CELL VOLUME 82.4 fl (80-96); MONO % 39.9 % (3.8-10.2); NEUT % 23.6 % (42.8-82.8); PLATELET COUNT 63 K/MM3 (134-434); RDW 15.4 % (11.6-15.6)
[2020-10-26 09:09] LABS: WHITE BLOOD COUNT 0.9 K/mm3 (4.0-10.0)
[2020-10-26] MEDS ORDERED: PATIENT'S OWN MEDICATION (NON-FORMULARY) (Abacavir Sulfate/Lamivudine [Abacavir-Lamivudine PO SCH (10:00)
[2020-10-26 10:46] LABS: ANISOCYTOSIS 1+; MACROCYTOSIS 0; OVALOCYTE 1+; PLATELET ESTIMATE DECREASED
[2020-10-26] MEDS ORDERED: CEFTRIAXONE 1 GM in DEXTROSE 5%-WATER - 50 ML IVPB SCH (11:00)
[2020-10-26] MEDS ORDERED: CEFEPIME HCL/D5W 1 GM/50 ML BAG IVPB SCH (11:00)
[2020-10-26] MEDS: PYRIDOXINE HCL (B-6) 50 MG TABLET (FP) PO SCH ×2 (11:36→22:30)
[2020-10-26] MEDS: CHOLECALCIFEROL (VIT D3) 1,000 UNIT (25 MCG) TABLET PO SCH (11:37)
[2020-10-26] MEDS: valACYclovir HCL 500 MG TABLET (FP) PO SCH ×2 (11:37→22:31)
[2020-10-26] MEDS: ENOXAPARIN NA (PORCINE) 40 MG/0.4 ML DISP.SYRIN SQ SCH ×2 (11:39→11:53)
[2020-10-26] MEDS ORDERED: CEFEPIME HCL 1 GM VIAL (RESTRICTED TO ID) ONE ×2 (14:10→15:20)
[2020-10-26] MEDS ORDERED: DEXTROSE 5%-WATER 100 ML IVPB ONE ×2 (14:10→15:20)
[2020-10-26] MEDS: DARUNAVIR 800 MG/COBICISTAT 150MG TABLET PO SCH (14:14)
[2020-10-26] MEDS: ATOVAQUONE 750 MG/5 ML (UNIT-DOSE PACKAGING) PO SCH (14:15)
[2020-10-26] MEDS: VITAMIN B COMPLEX W/C COMBO TABLET (FP) PO SCH (14:15)
[2020-10-26] MEDS: TIOTROPIUM BROMIDE 2.5 MCG (SPIRIVA) RESPIMAT INHALER IH SCH (14:16)
[2020-10-26] MEDS: ABACAVIR SULFATE 300 MG TABLET PO SCH (14:16)
[2020-10-26] MEDS: FLUCONAZOLE 100 MG TABLET (UD) PO SCH (14:17)
[2020-10-26] MEDS: CEFEPIME 1 GM in DEXTROSE 5%-WATER 1 GM/100 ML BAG IVPB SCH ×2 (14:17→17:20)
[2020-10-27] MEDS ORDERED: DEXTROSE 5%-WATER 100 ML IVPB ONE ×3 (01:43→18:11)
[2020-10-27] MEDS ORDERED: CEFEPIME HCL 1 GM VIAL (RESTRICTED TO ID) ONE ×3 (01:43→18:10)
[2020-10-27] MEDS: CEFEPIME 1 GM in DEXTROSE 5%-WATER 1 GM/100 ML BAG IVPB SCH ×3 (01:46→18:18)
[2020-10-27] MEDS: GABAPENTIN 300 MG CAPSULE PO SCH ×3 (05:25→22:11)
[2020-10-27] MEDS: PRAMIPEXOLE DIHYDROCHLORIDE 0.125 MG TABLET PO SCH ×3 (05:25→22:11)
[2020-10-27 08:08] LABS: BASO % 0.3 % (0-2.0); HEMATOCRIT 26.6 % (32.4-45.2); HEMOGLOBIN 8.7 GM/dL (10.7-15.3); MCH 27.2 pg (25.7-33.7); MCHC 32.8 g/dl (32.0-36.0); MEAN PLT VOLUME 9.4 fl (7.5-11.1); MONO % 33.5 % (3.8-10.2); NEUT % 27.2 % (42.8-82.8); PLATELET COUNT 74 K/MM3 (134-434)
[2020-10-27 08:17] LABS: POTASSIUM 3.3 mmol/L (3.5-5.1)
[2020-10-27 08:21] LABS: CALCIUM 7.7 mg/dL (8.5-10.1)
[2020-10-27 08:22] LABS: ALBUMIN 2.6 g/dl (3.4-5.0); BLOOD UREA NITROGEN 5.8 mg/dL (7-18)
[2020-10-27 08:25] LABS: CREATININE 0.9 mg/dL (0.55-1.3)
[2020-10-27 08:27] LABS: BILIRUBIN,TOTAL 0.5 mg/dL (0.2-1); TOT PROT 6.4 g/dl (6.4-8.2)
[2020-10-27] MEDS: SODIUM CHLORIDE 1,000 ML IV SCH (08:29)
[2020-10-27] MEDS ORDERED: POTASSIUM CHLORIDE TABS 20 MEQ TABLET.ER (FP) PO ONE (08:57)
[2020-10-27] MEDS: ENOXAPARIN NA (PORCINE) 40 MG/0.4 ML DISP.SYRIN SQ SCH (10:21)
[2020-10-27] MEDS: ATOVAQUONE 750 MG/5 ML (UNIT-DOSE PACKAGING) PO SCH (10:22)
[2020-10-27] MEDS: valACYclovir HCL 500 MG TABLET (FP) PO SCH ×2 (10:22→22:11)
[2020-10-27] MEDS: CHOLECALCIFEROL (VIT D3) 1,000 UNIT (25 MCG) TABLET PO SCH (10:22)
[2020-10-27] MEDS: PYRIDOXINE HCL (B-6) 50 MG TABLET (FP) PO SCH ×2 (10:22→22:11)
[2020-10-27] MEDS: VITAMIN B COMPLEX W/C COMBO TABLET (FP) PO SCH (10:22)
[2020-10-27] MEDS: FLUCONAZOLE 100 MG TABLET (UD) PO SCH (10:23)
[2020-10-27] MEDS: lamiVUDine 150 MG TABLET PO SCH (10:23)
[2020-10-27] MEDS: ABACAVIR SULFATE 300 MG TABLET PO SCH (10:23)
[2020-10-27] MEDS: DARUNAVIR 800 MG/COBICISTAT 150MG TABLET PO SCH (10:23)
[2020-10-27] MEDS: TIOTROPIUM BROMIDE 2.5 MCG (SPIRIVA) RESPIMAT INHALER IH SCH (10:29)
[2020-10-27] MEDS ORDERED: THIAMINE HCL 200 MG/2 ML VIAL IVPB ONE (12:30)
[2020-10-27 13:12] LABS: MAGNESIUM 1.5 mg/dL (1.8-2.4)
[2020-10-27] MEDS: TBO-FILGRASTIM 300 MCG/0.5 ML DISP.SYRINGE SQ SCH (13:41)
[2020-10-27 16:05] LABS: WHITE BLOOD COUNT 0.9 K/mm3 (4.0-10.0)
[2020-10-27 16:38] LABS: ANISOCYTOSIS 2+; MACROCYTOSIS 0; OVALOCYTE 1+
[2020-10-27] MEDS ORDERED: MAGNESIUM CL 64 MG TABLET.SA PO ONE (17:00)
[2020-10-27 17:15] VITALS: BMI 18.1
[2020-10-27] MEDS ORDERED: PT OWN MED DRAWER 7, Y5N ONE (20:22)
[2020-10-28] MEDS: CEFEPIME 1 GM in DEXTROSE 5%-WATER 1 GM/100 ML BAG IVPB SCH ×2 (05:08→10:35)
[2020-10-28] MEDS ORDERED: PT OWN MED DRAWER 7, Y5N ONE ×3 (06:14→21:02)
[2020-10-28] MEDS: GABAPENTIN 300 MG CAPSULE PO SCH ×2 (06:17→15:57)
[2020-10-28] MEDS: PRAMIPEXOLE DIHYDROCHLORIDE 0.125 MG TABLET PO SCH ×3 (06:17→21:28)
[2020-10-28] MEDS: FLUCONAZOLE 100 MG TABLET (UD) PO SCH (10:47)
[2020-10-28] MEDS: DARUNAVIR 800 MG/COBICISTAT 150MG TABLET PO SCH (10:47)
[2020-10-28] MEDS: ABACAVIR SULFATE 300 MG TABLET PO SCH (10:47)
[2020-10-28] MEDS: VITAMIN B COMPLEX W/C COMBO TABLET (FP) PO SCH (10:47)
[2020-10-28] MEDS: lamiVUDine 150 MG TABLET PO SCH (10:47)
[2020-10-28] MEDS: valACYclovir HCL 500 MG TABLET (FP) PO SCH ×2 (10:47→21:27)
[2020-10-28] MEDS: ATOVAQUONE 750 MG/5 ML (UNIT-DOSE PACKAGING) PO SCH (10:47)
[2020-10-28] MEDS: PYRIDOXINE HCL (B-6) 50 MG TABLET (FP) PO SCH ×2 (10:47→21:28)
[2020-10-28] MEDS: CHOLECALCIFEROL (VIT D3) 1,000 UNIT (25 MCG) TABLET PO SCH (10:48)
[2020-10-28] MEDS: ENOXAPARIN NA (PORCINE) 40 MG/0.4 ML DISP.SYRIN SQ SCH (10:49)
[2020-10-28] MEDS: TIOTROPIUM BROMIDE 2.5 MCG (SPIRIVA) RESPIMAT INHALER IH SCH (10:50)
[2020-10-28] MEDS: TBO-FILGRASTIM 300 MCG/0.5 ML DISP.SYRINGE SQ SCH (15:57)
[2020-10-28 18:33] LABS: POTASSIUM 3.6 mmol/L (3.5-5.1)
[2020-10-28 18:36] LABS: ALBUMIN 2.8 g/dl (3.4-5.0); CALCIUM 8.5 mg/dL (8.5-10.1)
[2020-10-28 18:37] LABS: BLOOD UREA NITROGEN 10.7 mg/dL (7-18)
[2020-10-28 18:39] LABS: CREATININE 0.8 mg/dL (0.55-1.3)
[2020-10-28 18:41] LABS: BILIRUBIN,TOTAL 0.4 mg/dL (0.2-1); TOT PROT 6.9 g/dl (6.4-8.2)
[2020-10-28 18:56] LABS: BASO % 0.3 % (0-2.0); EOS % 0.2 % (0-4.5); HEMATOCRIT 29.9 % (32.4-45.2); HEMOGLOBIN 9.6 GM/dL (10.7-15.3); LYMPH % 7.1 % (8-40); MCH 26.5 pg (25.7-33.7); MEAN CELL VOLUME 82.9 fl (80-96); MEAN PLT VOLUME 9.5 fl (7.5-11.1); NEUT % 86.4 % (42.8-82.8); PLATELET COUNT 85 K/MM3 (134-434); RBC 3.61 M/mm3 (3.60-5.2); RDW 15.2 % (11.6-15.6); WHITE BLOOD COUNT 11.1 K/mm3 (4.0-10.0)
[2020-10-28] MEDS ORDERED: PROCHLORPERAZINE MALEATE 5 MG TABLET PO ONE (20:57)
[2020-10-29] MEDS ORDERED: PT OWN MED DRAWER 7, Y5N ONE ×4 (05:32→22:03)
[2020-10-29] MEDS: PRAMIPEXOLE DIHYDROCHLORIDE 0.125 MG TABLET PO SCH ×3 (06:13→22:05)
[2020-10-29 08:49] LABS: HEMATOCRIT 28.9 % (32.4-45.2); HEMOGLOBIN 9.5 GM/dL (10.7-15.3); MCH 27.2 pg (25.7-33.7); MEAN CELL VOLUME 82.3 fl (80-96); MEAN PLT VOLUME 8.9 fl (7.5-11.1); PLATELET COUNT 96 K/MM3 (134-434); RBC 3.51 M/mm3 (3.60-5.2); RDW 15.5 % (11.6-15.6); WHITE BLOOD COUNT 17.8 K/mm3 (4.0-10.0)
[2020-10-29] MEDS: ATOVAQUONE 750 MG/5 ML (UNIT-DOSE PACKAGING) PO SCH (08:49)
[2020-10-29 09:01] LABS: POTASSIUM 3.6 mmol/L (3.5-5.1)
[2020-10-29 09:14] LABS: BLOOD UREA NITROGEN 11.3 mg/dL (7-18)
[2020-10-29 09:16] LABS: CALCIUM 8.8 mg/dL (8.5-10.1)
[2020-10-29] MEDS: lamiVUDine 150 MG TABLET PO SCH (09:16)
[2020-10-29] MEDS: FLUCONAZOLE 100 MG TABLET (UD) PO SCH (09:16)
[2020-10-29] MEDS: DARUNAVIR 800 MG/COBICISTAT 150MG TABLET PO SCH (09:17)
[2020-10-29] MEDS: CHOLECALCIFEROL (VIT D3) 1,000 UNIT (25 MCG) TABLET PO SCH (09:17)
[2020-10-29] MEDS: TIOTROPIUM BROMIDE 2.5 MCG (SPIRIVA) RESPIMAT INHALER IH SCH (09:17)
[2020-10-29] MEDS: GABAPENTIN 100 MG CAPSULE PO SCH ×2 (09:17→22:05)
[2020-10-29] MEDS: valACYclovir HCL 500 MG TABLET (FP) PO SCH ×2 (09:17→22:05)
[2020-10-29] MEDS: VITAMIN B COMPLEX W/C COMBO TABLET (FP) PO SCH (09:17)
[2020-10-29] MEDS: ENOXAPARIN NA (PORCINE) 40 MG/0.4 ML DISP.SYRIN SQ SCH (09:17)
[2020-10-29] MEDS: PYRIDOXINE HCL (B-6) 50 MG TABLET (FP) PO SCH ×2 (09:17→22:05)
[2020-10-29] MEDS: ABACAVIR SULFATE 300 MG TABLET PO SCH (09:17)
[2020-10-29] MEDS: TBO-FILGRASTIM 300 MCG/0.5 ML DISP.SYRINGE SQ SCH (12:23)
[2020-10-29] MEDS ORDERED: POTASSIUM CHLORIDE ORAL LIQUID 20 MEQ/15 ML PO ONE (18:22)
[2020-10-30] MEDS: PRAMIPEXOLE DIHYDROCHLORIDE 0.125 MG TABLET PO SCH ×2 (05:50→15:23)
[2020-10-30 08:48] LABS: BASO % 0.3 % (0-2.0); EOS % 0.3 % (0-4.5); HEMATOCRIT 27.1 % (32.4-45.2); HEMOGLOBIN 8.9 GM/dL (10.7-15.3); LYMPH % 8.9 % (8-40); MCH 26.9 pg (25.7-33.7); MCHC 32.7 g/dl (32.0-36.0); MEAN CELL VOLUME 82.2 fl (80-96); MEAN PLT VOLUME 8.6 fl (7.5-11.1); MONO % 7.8 % (3.8-10.2); NEUT % 82.7 % (42.8-82.8); PLATELET COUNT 110 K/MM3 (134-434); RDW 15.6 % (11.6-15.6); WHITE BLOOD COUNT 17.8 K/mm3 (4.0-10.0)
[2020-10-30 09:09] LABS: POTASSIUM 3.6 mmol/L (3.5-5.1)
[2020-10-30 09:13] LABS: BLOOD UREA NITROGEN 14.5 mg/dL (7-18)
[2020-10-30 09:14] LABS: CALCIUM 8.8 mg/dL (8.5-10.1); MAGNESIUM 1.5 mg/dL (1.8-2.4)
[2020-10-30 09:17] LABS: CREATININE 0.8 mg/dL (0.55-1.3)
[2020-10-30 09:18] LABS: BILIRUBIN,TOTAL 0.4 mg/dL (0.2-1); TOT PROT 7.2 g/dl (6.4-8.2)
[2020-10-30 09:29] VITALS: TEMP 98
[2020-10-30] MEDS: lamiVUDine 150 MG TABLET PO SCH (11:03)
[2020-10-30] MEDS: ATOVAQUONE 750 MG/5 ML (UNIT-DOSE PACKAGING) PO SCH (11:03)
[2020-10-30] MEDS: ABACAVIR SULFATE 300 MG TABLET PO SCH (11:03)
[2020-10-30] MEDS: DARUNAVIR 800 MG/COBICISTAT 150MG TABLET PO SCH (11:03)
[2020-10-30] MEDS: FLUCONAZOLE 100 MG TABLET (UD) PO SCH (11:04)
[2020-10-30] MEDS: PYRIDOXINE HCL (B-6) 50 MG TABLET (FP) PO SCH (11:04)
[2020-10-30] MEDS: VITAMIN B COMPLEX W/C COMBO TABLET (FP) PO SCH (11:05)
[2020-10-30] MEDS: TIOTROPIUM BROMIDE 2.5 MCG (SPIRIVA) RESPIMAT INHALER IH SCH (11:06)
[2020-10-30] MEDS: GABAPENTIN 100 MG CAPSULE PO SCH (11:06)
[2020-10-30] MEDS: valACYclovir HCL 500 MG TABLET (FP) PO SCH (11:06)
[2020-10-30] MEDS: ENOXAPARIN NA (PORCINE) 40 MG/0.4 ML DISP.SYRIN SQ SCH ×2 (11:06→11:41)
[2020-10-30] MEDS: CHOLECALCIFEROL (VIT D3) 1,000 UNIT (25 MCG) TABLET PO SCH (11:07)
[2020-10-30] MEDS ORDERED: MAGNESIUM OXIDE 400 MG TABLET (FP) GT ONE ×2 (14:25→14:31)
[2020-10-30 15:25] VITALS: BP 109/73; PULSE 91
== END 2020-10-30 18:30 | disposition home or self-care (01) | DRG 974 ==
LOC: JER 10:30 → JERBED 14:00 → J8W 20:14
PROVIDERS: ADMIT Internal Medicine; ATTEND Internal Medicine
DX: J18.9 Pneumonia, unspecified organism (principal); E43 Unspecified severe protein-calorie malnutrition; B20 Human immunodeficiency virus [HIV] disease; Z68.1 Body mass index [BMI] 19.9 or less, adult; R64 Cachexia; E87.2 Acidosis; B37.0 Candidal stomatitis; J44.9 Chronic obstructive pulmonary disease, unspecified; K21.9 Gastro-esophageal reflux disease without esophagitis; K76.0 Fatty (change of) liver, not elsewhere classified; F41.8 Other specified anxiety disorders; E78.5 Hyperlipidemia, unspecified; R62.7 Adult failure to thrive; I10 Essential (primary) hypertension; E83.42 Hypomagnesemia; G62.9 Polyneuropathy, unspecified; R94.5 Abnormal results of liver function studies; F50.9 Eating disorder, unspecified; G89.29 Other chronic pain; F39 Unspecified mood [affective] disorder; B37.9 Candidiasis, unspecified; Z88.0 Allergy status to penicillin; I95.9 Hypotension, unspecified
CPT/HCPCS: 36415; 71045-TC-FY; 80048; 80053; 82248; 82550; 82607; 82728; 82747; 82803; 83540; 83550; 83605; 83615; 83735; 84100; 84439; 84484; 85014; 85025; 85027; 85610; 85730; 86140; 87040; 87070; 87116; 87205; 87497; 87799; 87804; 93005; 93010; 97116-GP; 97161-GP; 99285-25; C9803; G0008; G0463-25; J1447; Q2036; U0003

== ENCOUNTER 2020-12-19 09:28 | Inpatient (IN) | payer OTHER ==
[2020-12-19] MEDS ORDERED: SODIUM CHLORIDE 1,497 ML IV ONE (10:54)
[2020-12-19] MEDS ORDERED: LIDOCAINE 5% TOPICAL PATCH TP ONE ×2 (11:05→23:30)
[2020-12-19] MEDS ORDERED: ACETAMINOPHEN 500 MG TABLET (FP) PO ONE ×2 (11:05→18:58)
[2020-12-19] MEDS ORDERED: ACETAMINOPHEN 325 MG TABLET (FP) ONE ×2 (11:21→19:04)
[2020-12-19] MEDS ORDERED: LIDOCAINE 5% TOPICAL PATCH ONE ×2 (11:21→23:18)
[2020-12-19] MEDS ORDERED: PIPERACILLIN/TAZOB 3.375 GM 3.375 GM in DEXTROSE 5%-WATER - 50 ML IVPB ONE (14:27)
[2020-12-19] MEDS ORDERED: valACYclovir HCL 1000 MG TABLET PO ONE (14:27)
[2020-12-19] MEDS ORDERED: VANCOMYCIN 1 GM PREMIX - 1 GM/200 ML BAG IVPB ONE (14:27)
[2020-12-19] MEDS ORDERED: CEFEPIME HCL/D5W 1 GM/50 ML BAG IVPB ONE (14:33)
[2020-12-19 14:42] LABS: BASO % 0.8 % (0-2.0); EOS % 0.9 % (0-4.5); HEMATOCRIT 25.4 % (32.4-45.2); HEMOGLOBIN 8.1 GM/dL (10.7-15.3); LYMPH % 20.4 % (8-40); MCH 25.4 pg (25.7-33.7); MCHC 31.9 g/dl (32.0-36.0); MEAN CELL VOLUME 79.7 fl (80-96); MEAN PLT VOLUME 9.2 fl (7.5-11.1); MONO % 19.9 % (3.8-10.2); PLATELET COUNT 86 K/MM3 (134-434); RBC 3.18 M/mm3 (3.60-5.2); RDW 16.7 % (11.6-15.6)
[2020-12-19 14:47] LABS: INR 0.93 (0.83-1.09); PROTHROMBIN TIME (PATIENT) 11.5 SEC (9.7-13.0); WHITE BLOOD COUNT 1.3 K/mm3 (4.0-10.0)
[2020-12-19 14:49] LABS: ACTIVATED PTT 37.2 SECONDS (25.2-36.5)
[2020-12-19 14:58] LABS: CHLORIDE 106 mmol/L (98-107); SODIUM 139 mmol/L (136-145)
[2020-12-19 14:59] LABS: MAGNESIUM 2.5 mg/dL (1.8-2.4)
[2020-12-19] MEDS ORDERED: CEFEPIME 2 GM/100 ML BAG IVPB ONE (15:00)
[2020-12-19] MEDS ORDERED: valACYclovir HCL 500 MG TABLET (FP) ONE (15:00)
[2020-12-19] MEDS ORDERED: VANCOMYCIN 1 GRAM (PRE-DOCKED) 1,000 MG/250 ML BAG IVPB ONE (15:01)
[2020-12-19 15:03] LABS: CALCIUM 7.5 mg/dL (8.5-10.1); PHOSPHOROUS 3.4 mg/dL (2.5-4.9)
[2020-12-19 15:04] LABS: ALBUMIN 2.8 g/dl (3.4-5.0); ANION GAP 10 MMOL/L (8-16); CO2 23 mmol/L (21-32); GLUCOSE,RANDOM 72 mg/dL (74-106)
[2020-12-19 15:07] LABS: CREATININE 1.3 mg/dL (0.55-1.3); SGOT/AST 295 U/L (15-37); SGPT/ALT 94 U/L (13-61)
[2020-12-19 15:08] LABS: BILIRUBIN,TOTAL 0.4 mg/dL (0.2-1)
[2020-12-19 15:10] LABS: ALK PHOS 94 U/L (45-117)
[2020-12-19 15:24] LABS: ANISOCYTOSIS 0; HELMET CELLS 0; HOWELL-JOLLY BODIES 0; MACROCYTOSIS 0; OVALOCYTE 0; PLATELET ESTIMATE DECREASED; ROULEAU 0; SICKELED CELLS 0; TARGET CELLS 0; TEAR DROP CELLS 0; TOXIC GRANULATION 0
[2020-12-19] MEDS ORDERED: ACYCLOVIR 1000 MG (50MG/ML) VIAL IVPB SCH ×2 (18:30→18:45)
[2020-12-19] MEDS ORDERED: ALBUTEROL SO4 2.5/IPRATROPIUM 0.5 INH SOL 3 ML VIAL.NEB. NEB PRN (18:45)
[2020-12-19] MEDS: SODIUM CHLORIDE 1,000 ML IV SCH (18:50)
[2020-12-19] MEDS: MULTIVITAMINS (DAILY MVI) TABLET (FP) PO SCH (18:51)
[2020-12-19] MEDS ORDERED: MULTIVITAMINS (DAILY MVI) TABLET (FP) ONE (18:53)
[2020-12-19] MEDS: ACYCLOVIR INJECTION 500 MG in SODIUM CHLORIDE 100 ML IVPB SCH (20:00)
[2020-12-19] MEDS ORDERED: GABAPENTIN 100 MG CAPSULE ONE (21:05)
[2020-12-19] MEDS: GABAPENTIN 300 MG CAPSULE PO SCH (21:13)
[2020-12-19] MEDS ORDERED: LIDOCAINE PATCH REMOVAL MC ONE (22:00)
[2020-12-19] MEDS ORDERED: LIDOCAINE PATCH REMOVAL MC SCH (22:00)
[2020-12-19] MEDS ORDERED: SODIUM CHLORIDE 250 ML IV STA (23:03)
[2020-12-19 23:58] LABS: EPI CELLS 11 /uL (0-25.1); HYALINE CASTS 2 /uL (0-3.1); PH,URINE 5.5 (5.0-8.0); URINE APPEARANCE CLOUDY; URINE BACTERIA 2080 /uL (0-1359); URINE BILIRUBIN NEGATIVE (NEGATIVE); URINE COLOR DK YELLOW; URINE GLUCOSE (UA) NEGATIVE (NEGATIVE); URINE KETONE TRACE (NEGATIVE); URINE LEUK ESTERASE 3+ (NEGATIVE); URINE NITRITE NEGATIVE (NEGATIVE); URINE PROTEIN 1+ (NEGATIVE); URINE WBC 194 /uL (0-25.8)
[2020-12-20] MEDS: ACYCLOVIR INJECTION 500 MG in SODIUM CHLORIDE 100 ML IVPB SCH (06:03)
[2020-12-20] MEDS: GABAPENTIN 300 MG CAPSULE PO SCH ×3 (06:03→21:01)
[2020-12-20 08:57] LABS: HEMATOCRIT 25.2 % (32.4-45.2); HEMOGLOBIN 8.3 GM/dL (10.7-15.3); MCH 26.2 pg (25.7-33.7); MCHC 33.1 g/dl (32.0-36.0); MEAN CELL VOLUME 79.3 fl (80-96); MEAN PLT VOLUME 9.5 fl (7.5-11.1); PLATELET COUNT 80 K/MM3 (134-434); RBC 3.18 M/mm3 (3.60-5.2); RDW 16.5 % (11.6-15.6)
[2020-12-20 09:06] LABS: WHITE BLOOD COUNT 1.7 K/mm3 (4.0-10.0)
[2020-12-20 09:07] LABS: ALBUMIN 2.7 g/dl (3.4-5.0); BLOOD UREA NITROGEN 31.4 mg/dL (7-18); CALCIUM 7.8 mg/dL (8.5-10.1); MAGNESIUM 2.4 mg/dL (1.8-2.4)
[2020-12-20 09:10] LABS: PHOSPHOROUS 3.1 mg/dL (2.5-4.9)
[2020-12-20 09:12] LABS: BILIRUBIN,TOTAL 0.4 mg/dL (0.2-1); TOT PROT 6.7 g/dl (6.4-8.2)
[2020-12-20] MEDS ORDERED: LIDOCAINE 5% TOPICAL PATCH TP SCH (10:00)
[2020-12-20] MEDS: CHOLECALCIFEROL (VIT D3) 1,000 UNIT (25 MCG) TABLET PO SCH (10:25)
[2020-12-20] MEDS: MULTIVITAMINS (DAILY MVI) TABLET (FP) PO SCH (10:25)
[2020-12-20] MEDS: PYRIDOXINE HCL (B-6) 100 MG TABLET PO SCH (10:25)
[2020-12-20] MEDS ORDERED: DOCUSATE SODIUM 100 MG CAPSULE (FP) PO PRN (10:27)
[2020-12-20] MEDS ORDERED: THIAMINE HCL 200 MG/2 ML VIAL IVPB ONE (10:30)
[2020-12-20] MEDS ORDERED: LIDOCAINE PATCH REMOVAL MC SCH ×2 (11:30→22:00)
[2020-12-20] MEDS: oxyCODONE HCL 5 MG TABLET PO PRN ×2 (11:34→21:02)
[2020-12-20] MEDS: HEPARIN NA (PORCINE) 5,000 UNITS/ML 1ML VIAL SQ SCH ×3 (14:19→21:06)
[2020-12-20] MEDS ORDERED: LORATADINE 10 MG TABLET PO ONE (16:33)
[2020-12-20] MEDS: ACYCLOVIR INJECTION 500 MG in DEXTROSE 5%-WATER - 100 ML IVPB SCH (17:23)
[2020-12-20] MEDS ORDERED: ACYCLOVIR INJECTION 500 MG in DEXTROSE 5%-WATER - 100 ML IVPB SCH (18:00)
[2020-12-20] MEDS: SODIUM CHLORIDE 1,000 ML IV SCH (19:07)
[2020-12-20] MEDS: LIDOCAINE 5% TOPICAL PATCH TP SCH (23:55)
[2020-12-21] MEDS: oxyCODONE HCL 5 MG TABLET PO PRN ×4 (05:04→21:04)
[2020-12-21] MEDS: GABAPENTIN 300 MG CAPSULE PO SCH ×3 (05:04→21:04)
[2020-12-21] MEDS: HEPARIN NA (PORCINE) 5,000 UNITS/ML 1ML VIAL SQ SCH ×3 (05:07→21:09)
[2020-12-21] MEDS: ACYCLOVIR INJECTION 500 MG in DEXTROSE 5%-WATER - 100 ML IVPB SCH ×2 (05:07→18:42)
[2020-12-21] MEDS: SODIUM CHLORIDE 1,000 ML IV SCH ×2 (07:00→23:37)
[2020-12-21 09:28] LABS: BASO % 0.8 % (0-2.0); EOS % 0.8 % (0-4.5); HEMATOCRIT 24.9 % (32.4-45.2); LYMPH % 14.8 % (8-40); MCHC 32.2 g/dl (32.0-36.0); MEAN CELL VOLUME 80.8 fl (80-96); MEAN PLT VOLUME 9.9 fl (7.5-11.1); MONO % 22.1 % (3.8-10.2); NEUT % 61.5 % (42.8-82.8); PLATELET COUNT 84 K/MM3 (134-434); RBC 3.08 M/mm3 (3.60-5.2); RDW 16.8 % (11.6-15.6); WHITE BLOOD COUNT 2.5 K/mm3 (4.0-10.0)
[2020-12-21] MEDS: LIDOCAINE 5% TOPICAL PATCH TP SCH (10:12)
[2020-12-21] MEDS: MULTIVITAMINS (DAILY MVI) TABLET (FP) PO SCH (10:13)
[2020-12-21] MEDS: CHOLECALCIFEROL (VIT D3) 1,000 UNIT (25 MCG) TABLET PO SCH (10:13)
[2020-12-21] MEDS: PYRIDOXINE HCL (B-6) 100 MG TABLET PO SCH (10:13)
[2020-12-21] MEDS: ATOVAQUONE 750 MG/5 ML (UNIT-DOSE PACKAGING) PO SCH (10:14)
[2020-12-21 10:21] LABS: ALBUMIN 2.5 g/dl (3.4-5.0); BILIRUBIN,TOTAL 0.3 mg/dL (0.2-1); BLOOD UREA NITROGEN 22.2 mg/dL (7-18); CALCIUM 8.2 mg/dL (8.5-10.1); CREATININE 0.8 mg/dL (0.55-1.3); MAGNESIUM 2.1 mg/dL (1.8-2.4); PHOSPHOROUS 2.9 mg/dL (2.5-4.9); TOT PROT 6.5 g/dl (6.4-8.2)
[2020-12-21 10:50] LABS: ANISOCYTOSIS 1+; MACROCYTOSIS 0; PLATELET ESTIMATE DECREASED
[2020-12-21] MEDS ORDERED: LORATADINE 10 MG TABLET PO ONE (15:41)
[2020-12-21] MEDS ORDERED: PT OWN MED DRAWER 7, Y5N ONE (17:25)
[2020-12-22] MEDS: ACYCLOVIR INJECTION 500 MG in DEXTROSE 5%-WATER - 100 ML IVPB SCH ×3 (05:41→21:49)
[2020-12-22] MEDS: GABAPENTIN 300 MG CAPSULE PO SCH ×3 (05:41→21:56)
[2020-12-22] MEDS: HEPARIN NA (PORCINE) 5,000 UNITS/ML 1ML VIAL SQ SCH ×4 (05:42→21:47)
[2020-12-22] MEDS: oxyCODONE HCL 5 MG TABLET PO PRN ×3 (06:28→19:55)
[2020-12-22] MEDS: PYRIDOXINE HCL (B-6) 100 MG TABLET PO SCH (09:25)
[2020-12-22] MEDS: ATOVAQUONE 750 MG/5 ML (UNIT-DOSE PACKAGING) PO SCH (09:25)
[2020-12-22] MEDS: CHOLECALCIFEROL (VIT D3) 1,000 UNIT (25 MCG) TABLET PO SCH (09:26)
[2020-12-22] MEDS: MULTIVITAMINS (DAILY MVI) TABLET (FP) PO SCH (09:26)
[2020-12-22 09:43] LABS: BASO % 0.5 % (0-2.0); EOS % 0.2 % (0-4.5); HEMATOCRIT 23.3 % (32.4-45.2); HEMOGLOBIN 7.3 GM/dL (10.7-15.3); LYMPH % 17.6 % (8-40); MCH 25.9 pg (25.7-33.7); MCHC 31.4 g/dl (32.0-36.0); MEAN CELL VOLUME 82.5 fl (80-96); MEAN PLT VOLUME 10.3 fl (7.5-11.1); MONO % 17.8 % (3.8-10.2); NEUT % 63.9 % (42.8-82.8); PLATELET COUNT 90 K/MM3 (134-434); RBC 2.82 M/mm3 (3.60-5.2); RDW 17.6 % (11.6-15.6); WHITE BLOOD COUNT 2.1 K/mm3 (4.0-10.0)
[2020-12-22 10:25] LABS: ALBUMIN 2.4 g/dl (3.4-5.0)
[2020-12-22 10:26] LABS: BLOOD UREA NITROGEN 15.8 mg/dL (7-18); CALCIUM 7.9 mg/dL (8.5-10.1); MAGNESIUM 1.8 mg/dL (1.8-2.4)
[2020-12-22 10:28] LABS: CREATININE 0.7 mg/dL (0.55-1.3); PHOSPHOROUS 2.9 mg/dL (2.5-4.9)
[2020-12-22 10:29] LABS: BILIRUBIN,TOTAL 0.4 mg/dL (0.2-1); TOT PROT 6.4 g/dl (6.4-8.2)
[2020-12-22] MEDS: SODIUM CHLORIDE 1,000 ML IV SCH (10:43)
[2020-12-22] MEDS: THIAMINE HCL 200 MG/2 ML VIAL IVPB SCH ×2 (10:55→18:30)
[2020-12-22 11:26] LABS: ANISOCYTOSIS 1+; MACROCYTOSIS 1+; OVALOCYTE 1+; PLATELET ESTIMATE DECREASED
[2020-12-22] MEDS: LIDOCAINE HCL/PF 1% SDV 5ML VIAL INF ONE ×2 (15:25→15:39)
[2020-12-22 17:26] LABS: CSF APPEARANCE CLEAR; CSF COLOR COLORLESS; CSF WBC 0
[2020-12-22 17:45] LABS: BF GLUCOSE (CSF ONLY) 55 mg/dL (40-70)
[2020-12-22] MEDS ORDERED: LORazepam 2 MG/ML SDV VIAL IVPUSH ONE (18:44)
[2020-12-22] MEDS: GABAPENTIN 100 MG CAPSULE PO SCH (21:58)
[2020-12-23] MEDS: THIAMINE HCL 200 MG/2 ML VIAL IVPB SCH ×2 (03:13→09:26)
[2020-12-23] MEDS: GABAPENTIN 100 MG CAPSULE PO SCH ×3 (05:27→23:11)
[2020-12-23] MEDS: HEPARIN NA (PORCINE) 5,000 UNITS/ML 1ML VIAL SQ SCH (05:27)
[2020-12-23] MEDS: ACYCLOVIR INJECTION 500 MG in DEXTROSE 5%-WATER - 100 ML IVPB SCH ×3 (05:28→23:11)
[2020-12-23 08:09] LABS: BASO % 0.4 % (0-2.0); EOS % 0.3 % (0-4.5); HEMATOCRIT 20.4 % (32.4-45.2); LYMPH % 12.9 % (8-40); MCH 25.8 pg (25.7-33.7); MCHC 31.8 g/dl (32.0-36.0); MEAN CELL VOLUME 81.2 fl (80-96); MEAN PLT VOLUME 10.6 fl (7.5-11.1); MONO % 25.7 % (3.8-10.2); NEUT % 60.7 % (42.8-82.8); PLATELET COUNT 64 K/MM3 (134-434); RBC 2.51 M/mm3 (3.60-5.2); RDW 16.9 % (11.6-15.6)
[2020-12-23 08:39] LABS: WHITE BLOOD COUNT 1.4 K/mm3 (4.0-10.0)
[2020-12-23 08:40] LABS: HEMOGLOBIN 6.5 GM/dL (10.7-15.3)
[2020-12-23] MEDS ORDERED: PT OWN MED DRAWER 7, Y5N ONE (09:02)
[2020-12-23] MEDS: MULTIVITAMINS (DAILY MVI) TABLET (FP) PO SCH (09:26)
[2020-12-23] MEDS: CHOLECALCIFEROL (VIT D3) 1,000 UNIT (25 MCG) TABLET PO SCH (09:26)
[2020-12-23] MEDS: PYRIDOXINE HCL (B-6) 50 MG TABLET (FP) PO SCH (09:26)
[2020-12-23] MEDS: oxyCODONE HCL 5 MG TABLET PO PRN (09:27)
[2020-12-23] MEDS ORDERED: SODIUM CHLORIDE 500 ML IV STA ×2 (09:28→12:06)
[2020-12-23 10:16] LABS: ANISOCYTOSIS 1+; MACROCYTOSIS 1+; OVALOCYTE 1+; PLATELET ESTIMATE DECREASED
[2020-12-23] MEDS: ATOVAQUONE 750 MG/5 ML (UNIT-DOSE PACKAGING) PO SCH (10:24)
[2020-12-23] MEDS: SODIUM CHLORIDE 1,000 ML IV SCH ×2 (10:24→14:31)
[2020-12-23] MEDS ORDERED: ACETAMINOPHEN 1000 MG/100 ML VIAL (NON FORMULARY) IVPB ONE (14:52)
[2020-12-23] MEDS ORDERED: SODIUM CHLORIDE 1,000 ML IV SCH ×2 (16:20→19:29)
[2020-12-23 16:39] LABS: INR 1.02 (0.83-1.09); PROTHROMBIN TIME (PATIENT) 12.5 SEC (9.7-13.0)
[2020-12-23 16:42] LABS: ACTIVATED PTT 63.9 SECONDS (25.2-36.5)
[2020-12-23 17:13] LABS: ALBUMIN 1.8 g/dl (3.4-5.0); ALK PHOS 132 U/L (45-117); ANION GAP 5 MMOL/L (8-16); BILIRUBIN,TOTAL 0.2 mg/dL (0.2-1); BLOOD UREA NITROGEN 23.1 mg/dL (7-18); CALCIUM 6.7 mg/dL (8.5-10.1); CHLORIDE 116 mmol/L (98-107); CO2 25 mmol/L (21-32); CREATININE 0.7 mg/dL (0.55-1.3); GLUCOSE,RANDOM 92 mg/dL (74-106); MAGNESIUM 1.5 mg/dL (1.8-2.4); PHOSPHOROUS 3.1 mg/dL (2.5-4.9); SGOT/AST 297 U/L (15-37); SGPT/ALT 73 U/L (13-61); SODIUM 146 mmol/L (136-145); TOT PROT 4.6 g/dl (6.4-8.2)
[2020-12-23] MEDS ORDERED: MAGNESIUM SULF 50% (8.12 MEQ/2 ML-1 GM VIAL) IVPB ONE (17:16)
[2020-12-23] MEDS ORDERED: CALCIUM GLUCONATE 10% - 1,000 MG/10 ML VIAL IVPB ONE (17:17)
[2020-12-23] MEDS: VANCOMYCIN 750 MG in DEXTROSE 5%-WATER - 250 ML IVPB SCH (17:42)
[2020-12-23 19:46] LABS: BASO % 0.3 % (0-2.0); EOS % 0.2 % (0-4.5); HEMATOCRIT 18.1 % (32.4-45.2); LYMPH % 18.4 % (8-40); MCH 26.7 pg (25.7-33.7); MCHC 32.7 g/dl (32.0-36.0); MEAN CELL VOLUME 81.6 fl (80-96); MEAN PLT VOLUME 10.2 fl (7.5-11.1); MONO % 17.4 % (3.8-10.2); NEUT % 63.7 % (42.8-82.8); PLATELET COUNT 44 K/MM3 (134-434); RBC 2.22 M/mm3 (3.60-5.2); RDW 16.5 % (11.6-15.6)
[2020-12-23 20:02] LABS: HEMOGLOBIN 5.9 GM/dL (10.7-15.3); WHITE BLOOD COUNT 1.2 K/mm3 (4.0-10.0)
[2020-12-23 21:09] LABS: ANISOCYTOSIS 1+; MACROCYTOSIS 1+; PLATELET ESTIMATE DECREASED
[2020-12-23] MEDS: MUPIROCIN 2% TOPICAL OINTMENT FOR DECOLONIZATION NS SCH (22:49)
[2020-12-23] MEDS: CHLORHEXIDINE GLUCONATE 4% CLEANSER FOR DECOLONIZATION TP SCH (22:49)
[2020-12-23] MEDS ORDERED: MAGNESIUM SULF 50% (8.12 MEQ/2 ML-1 GM VIAL) ONE (22:52)
[2020-12-23] MEDS: PANTOPRAZOLE SODIUM 40 MG VIAL IVPUSH SCH (23:11)
[2020-12-24] MEDS: THIAMINE HCL 200 MG/2 ML VIAL IVPB SCH ×4 (01:42→18:11)
[2020-12-24 01:45] LABS: BASO % 0.4 % (0-2.0); EOS % 0.1 % (0-4.5); HEMATOCRIT 24.9 % (32.4-45.2); HEMOGLOBIN 8.2 GM/dL (10.7-15.3); LYMPH % 18.1 % (8-40); MCHC 32.9 g/dl (32.0-36.0); MEAN CELL VOLUME 85.2 fl (80-96); MEAN PLT VOLUME 10.4 fl (7.5-11.1); NEUT % 68.4 % (42.8-82.8); PLATELET COUNT 40 K/MM3 (134-434); RBC 2.92 M/mm3 (3.60-5.2); RDW 16.3 % (11.6-15.6)
[2020-12-24 01:53] LABS: WHITE BLOOD COUNT 1.3 K/mm3 (4.0-10.0)
[2020-12-24 02:03] LABS: ALBUMIN 1.6 g/dl (3.4-5.0); BLOOD UREA NITROGEN 28.6 mg/dL (7-18); CALCIUM 7.4 mg/dL (8.5-10.1)
[2020-12-24] MEDS ORDERED: DEXTROSE 5%-WATER 100 ML IVPB ONE ×3 (02:03→18:02)
[2020-12-24] MEDS ORDERED: CEFEPIME HCL 1 GM VIAL (RESTRICTED TO ID) ONE ×3 (02:03→18:02)
[2020-12-24] MEDS: CEFEPIME 1 GM in DEXTROSE 5%-WATER 1 GM/100 ML BAG IVPB SCH ×3 (02:05→18:11)
[2020-12-24] MEDS: LACTATED RINGERS SOLUTION 1,000 ML/1,000 ML INFUS.BAG IV SCH (02:06)
[2020-12-24 02:07] LABS: CREATININE 0.8 mg/dL (0.55-1.3)
[2020-12-24 02:08] LABS: BILIRUBIN,TOTAL 0.2 mg/dL (0.2-1); TOT PROT 4.5 g/dl (6.4-8.2)
[2020-12-24] MEDS: GABAPENTIN 100 MG CAPSULE PO SCH ×3 (05:54→21:05)
[2020-12-24] MEDS: ACYCLOVIR INJECTION 500 MG in DEXTROSE 5%-WATER - 100 ML IVPB SCH ×3 (05:57→20:40)
[2020-12-24 06:52] LABS: CALCIUM 7.4 mg/dL (8.5-10.1)
[2020-12-24 06:56] LABS: CREATININE 0.7 mg/dL (0.55-1.3)
[2020-12-24 07:10] LABS: HEMATOCRIT 26.3 % (32.4-45.2); MCH 28.6 pg (25.7-33.7); MCHC 34.1 g/dl (32.0-36.0); MEAN CELL VOLUME 83.8 fl (80-96); MEAN PLT VOLUME 9.4 fl (7.5-11.1); PLATELET COUNT 48 K/MM3 (134-434); RBC 3.14 M/mm3 (3.60-5.2); RDW 16.1 % (11.6-15.6); RETICULOCYTES 0.85 % (0.5-1.5)
[2020-12-24 07:13] LABS: WHITE BLOOD COUNT 1.7 K/mm3 (4.0-10.0)
[2020-12-24] MEDS ORDERED: PT OWN MED DRAWER 7, Y5N ONE ×2 (09:41→12:49)
[2020-12-24] MEDS: PANTOPRAZOLE SODIUM 40 MG VIAL IVPUSH SCH ×2 (10:42→21:05)
[2020-12-24] MEDS: ATOVAQUONE 750 MG/5 ML (UNIT-DOSE PACKAGING) PO SCH (10:42)
[2020-12-24] MEDS: MULTIVITAMINS (DAILY MVI) TABLET (FP) PO SCH (10:44)
[2020-12-24] MEDS: CHOLECALCIFEROL (VIT D3) 1,000 UNIT (25 MCG) TABLET PO SCH (10:45)
[2020-12-24] MEDS: PYRIDOXINE HCL (B-6) 50 MG TABLET (FP) PO SCH (10:45)
[2020-12-24] MEDS: MUPIROCIN 2% TOPICAL OINTMENT FOR DECOLONIZATION NS SCH ×2 (10:46→21:06)
[2020-12-24] MEDS: CEFEPIME HCL/D5W 1 GM/50 ML BAG IVPB SCH (12:42)
[2020-12-24] MEDS: VANCOMYCIN 750 MG in DEXTROSE 5%-WATER - 250 ML IVPB SCH (14:59)
[2020-12-24 18:09] LABS: BASO % 0.6 % (0-2.0); EOS % 0.4 % (0-4.5); HEMATOCRIT 25.6 % (32.4-45.2); HEMOGLOBIN 8.5 GM/dL (10.7-15.3); LYMPH % 18.3 % (8-40); MCH 28.1 pg (25.7-33.7); MCHC 33.2 g/dl (32.0-36.0); MEAN CELL VOLUME 84.6 fl (80-96); MEAN PLT VOLUME 10.2 fl (7.5-11.1); MONO % 15.5 % (3.8-10.2); NEUT % 65.2 % (42.8-82.8); PLATELET COUNT 50 K/MM3 (134-434); RBC 3.02 M/mm3 (3.60-5.2)
[2020-12-24] MEDS ORDERED: ACETAMINOPHEN 325 MG TABLET (FP) PO ONE (18:30)
[2020-12-24] MEDS ORDERED: oxyCODONE HCL 5 MG TABLET PO ONE (18:30)
[2020-12-24 19:36] LABS: ANISOCYTOSIS 2+; MACROCYTOSIS 0; OVALOCYTE 1+; PLATELET ESTIMATE DECREASED
[2020-12-24] MEDS: CHLORHEXIDINE GLUCONATE 4% CLEANSER FOR DECOLONIZATION TP SCH (21:06)
[2020-12-25] MEDS ORDERED: DEXTROSE 5%-WATER 100 ML IVPB ONE ×3 (02:21→17:02)
[2020-12-25] MEDS ORDERED: CEFEPIME HCL 1 GM VIAL (RESTRICTED TO ID) ONE ×3 (02:21→17:02)
[2020-12-25] MEDS: CEFEPIME 1 GM in DEXTROSE 5%-WATER 1 GM/100 ML BAG IVPB SCH ×3 (02:22→17:17)
[2020-12-25] MEDS: THIAMINE HCL 200 MG/2 ML VIAL IVPB SCH ×3 (02:39→17:17)
[2020-12-25] MEDS ORDERED: PT OWN MED DRAWER 7, Y5N ONE ×5 (05:59→21:41)
[2020-12-25] MEDS: LACTATED RINGERS SOLUTION 1,000 ML/1,000 ML INFUS.BAG IV SCH (06:01)
[2020-12-25] MEDS: GABAPENTIN 100 MG CAPSULE PO SCH ×3 (06:24→21:43)
[2020-12-25] MEDS: ACYCLOVIR INJECTION 500 MG in DEXTROSE 5%-WATER - 100 ML IVPB SCH ×3 (06:24→21:45)
[2020-12-25 07:09] LABS: BASO % 0.6 % (0-2.0); EOS % 0.3 % (0-4.5); HEMATOCRIT 25.1 % (32.4-45.2); HEMOGLOBIN 8.6 GM/dL (10.7-15.3); LYMPH % 23.9 % (8-40); MCH 28.5 pg (25.7-33.7); MCHC 34.4 g/dl (32.0-36.0); MEAN CELL VOLUME 82.8 fl (80-96); MEAN PLT VOLUME 8.8 fl (7.5-11.1); MONO % 19.2 % (3.8-10.2); PLATELET COUNT 46 K/MM3 (134-434); RBC 3.03 M/mm3 (3.60-5.2); RDW 16.3 % (11.6-15.6)
[2020-12-25 07:16] LABS: INR 0.89 (0.83-1.09); PROTHROMBIN TIME (PATIENT) 10.8 SEC (9.7-13.0)
[2020-12-25 07:18] LABS: ACTIVATED PTT 39.6 SECONDS (25.2-36.5)
[2020-12-25 07:25] LABS: ALBUMIN 1.6 g/dl (3.4-5.0); BLOOD UREA NITROGEN 20.5 mg/dL (7-18); CALCIUM 7.1 mg/dL (8.5-10.1)
[2020-12-25 07:26] LABS: MAGNESIUM 1.7 mg/dL (1.8-2.4)
[2020-12-25 07:28] LABS: CREATININE 0.7 mg/dL (0.55-1.3)
[2020-12-25 07:30] LABS: BILIRUBIN,TOTAL 0.3 mg/dL (0.2-1); TOT PROT 4.6 g/dl (6.4-8.2); WHITE BLOOD COUNT 1.9 K/mm3 (4.0-10.0)
[2020-12-25] MEDS ORDERED: MAGNESIUM SULF 50% (8.12 MEQ/2 ML-1 GM VIAL) IVPB ONE (08:45)
[2020-12-25 08:53] LABS: ANISOCYTOSIS 0; HELMET CELLS 0; HOWELL-JOLLY BODIES 0; MACROCYTOSIS 0; OVALOCYTE 0; PLATELET ESTIMATE DECREASED; ROULEAU 0; SICKELED CELLS 0; TARGET CELLS 0; TEAR DROP CELLS 0; TOXIC GRANULATION 0
[2020-12-25] MEDS ORDERED: oxyCODONE HCL 5 MG TABLET PO ONE ×2 (09:34→22:45)
[2020-12-25] MEDS: MUPIROCIN 2% TOPICAL OINTMENT FOR DECOLONIZATION NS SCH ×2 (09:35→21:47)
[2020-12-25] MEDS: MULTIVITAMINS (DAILY MVI) TABLET (FP) PO SCH (09:36)
[2020-12-25] MEDS: ATOVAQUONE 750 MG/5 ML (UNIT-DOSE PACKAGING) PO SCH (09:36)
[2020-12-25] MEDS: CHOLECALCIFEROL (VIT D3) 1,000 UNIT (25 MCG) TABLET PO SCH (09:36)
[2020-12-25] MEDS: PANTOPRAZOLE SODIUM 40 MG VIAL IVPUSH SCH (09:36)
[2020-12-25] MEDS: PYRIDOXINE HCL (B-6) 50 MG TABLET (FP) PO SCH (09:47)
[2020-12-25] MEDS ORDERED: LACTATED RINGERS SOLUTION 1000 ML INFUS.BAG IV ONE (10:22)
[2020-12-25] MEDS: VANCOMYCIN 750 MG in DEXTROSE 5%-WATER - 250 ML IVPB SCH (14:18)
[2020-12-25] MEDS: oxyCODONE HCL 5 MG TABLET PO PRN (18:11)
[2020-12-25 18:19] LABS: WHITE BLOOD COUNT 1.9 K/mm3 (4.0-10.0)
[2020-12-25] MEDS: CHLORHEXIDINE GLUCONATE 4% CLEANSER FOR DECOLONIZATION TP SCH (21:47)
[2020-12-25] MEDS ORDERED: ACETAMINOPHEN 325 MG TABLET (FP) PO ONE (22:45)
[2020-12-26] MEDS ORDERED: CEFEPIME HCL 1 GM VIAL (RESTRICTED TO ID) ONE ×3 (02:31→15:51)
[2020-12-26] MEDS ORDERED: DEXTROSE 5%-WATER 100 ML IVPB ONE ×3 (02:31→15:52)
[2020-12-26] MEDS: CEFEPIME 1 GM in DEXTROSE 5%-WATER 1 GM/100 ML BAG IVPB SCH ×3 (02:34→17:15)
[2020-12-26] MEDS: THIAMINE HCL 200 MG/2 ML VIAL IVPB SCH ×3 (03:32→17:15)
[2020-12-26] MEDS: oxyCODONE HCL 5 MG TABLET PO PRN (04:27)
[2020-12-26] MEDS ORDERED: ACETAMINOPHEN 325 MG TABLET (FP) PO ONE (04:30)
[2020-12-26] MEDS: ACYCLOVIR INJECTION 500 MG in DEXTROSE 5%-WATER - 100 ML IVPB SCH ×3 (05:48→21:21)
[2020-12-26] MEDS: GABAPENTIN 100 MG CAPSULE PO SCH ×3 (06:19→21:21)
[2020-12-26 07:18] LABS: BASO % 0.2 % (0-2.0); EOS % 0.1 % (0-4.5); HEMATOCRIT 25.3 % (32.4-45.2); HEMOGLOBIN 8.6 GM/dL (10.7-15.3); LYMPH % 11.5 % (8-40); MCH 28.4 pg (25.7-33.7); MEAN CELL VOLUME 83.8 fl (80-96); MEAN PLT VOLUME 9.5 fl (7.5-11.1); MONO % 13.5 % (3.8-10.2); NEUT % 74.7 % (42.8-82.8); PLATELET COUNT 60 K/MM3 (134-434); RBC 3.02 M/mm3 (3.60-5.2); RDW 16.8 % (11.6-15.6)
[2020-12-26 07:40] LABS: ALBUMIN 1.6 g/dl (3.4-5.0); BLOOD UREA NITROGEN 15.6 mg/dL (7-18)
[2020-12-26 07:41] LABS: CALCIUM 7.4 mg/dL (8.5-10.1); MAGNESIUM 1.7 mg/dL (1.8-2.4)
[2020-12-26 07:42] LABS: BILIRUBIN,TOTAL 0.3 mg/dL (0.2-1); TOT PROT 4.7 g/dl (6.4-8.2)
[2020-12-26 07:43] LABS: CREATININE 0.8 mg/dL (0.55-1.3)
[2020-12-26 07:44] LABS: PHOSPHOROUS 2.5 mg/dL (2.5-4.9)
[2020-12-26] MEDS ORDERED: POTASSIUM CHLORIDE TABS 20 MEQ TABLET.ER (FP) PO ONE (08:30)
[2020-12-26] MEDS ORDERED: MAGNESIUM 2GM/50ML STERILE WATER IVPB IVPB ONE (08:30)
[2020-12-26] MEDS ORDERED: PT OWN MED DRAWER 7, Y5N ONE ×4 (09:06→21:18)
[2020-12-26] MEDS: CHOLECALCIFEROL (VIT D3) 1,000 UNIT (25 MCG) TABLET PO SCH (09:14)
[2020-12-26] MEDS: MULTIVITAMINS (DAILY MVI) TABLET (FP) PO SCH (09:14)
[2020-12-26] MEDS: MUPIROCIN 2% TOPICAL OINTMENT FOR DECOLONIZATION NS SCH ×2 (09:15→21:22)
[2020-12-26] MEDS: LACTATED RINGERS SOLUTION 1,000 ML/1,000 ML INFUS.BAG IV SCH (09:15)
[2020-12-26] MEDS: PYRIDOXINE HCL (B-6) 50 MG TABLET (FP) PO SCH (10:55)
[2020-12-26] MEDS: ATOVAQUONE 750 MG/5 ML (UNIT-DOSE PACKAGING) PO SCH (14:27)
[2020-12-26] MEDS ORDERED: oxyCODONE HCL 5 MG TABLET PO ONE (17:06)
[2020-12-26] MEDS ORDERED: METOPROLOL TARTRATE 5 MG/5 ML VIAL IVPUSH ONE ×2 (18:30→21:09)
[2020-12-26] MEDS ORDERED: METOPROLOL TARTRATE 5 MG/5 ML VIAL ONE (18:35)
[2020-12-26] MEDS ORDERED: LACTATED RINGERS SOLUTION 1,000 ML/1,000 ML INFUS.BAG IV SCH (19:22)
[2020-12-26] MEDS ORDERED: LACTATED RINGERS SOLUTION 1,000 ML/1,000 ML INFUS.BAG IV STA (21:09)
[2020-12-26] MEDS ORDERED: LACTATED RINGERS SOLUTION 1,000 ML/1,000 ML INFUS.BAG IV ONE (21:11)
[2020-12-26] MEDS: CHLORHEXIDINE GLUCONATE 4% CLEANSER FOR DECOLONIZATION TP SCH (21:22)
[2020-12-26] MEDS ORDERED: METOPROLOL TARTRATE 5 MG/5 ML VIAL IVPUSH PRN (23:17)
[2020-12-27] MEDS ORDERED: PT OWN MED DRAWER 7, Y5N ONE ×2 (00:54→17:16)
[2020-12-27] MEDS ORDERED: KETOROLAC TROMETHAMINE 30 MG/1 ML VIAL IM ONE (02:04)
[2020-12-27] MEDS ORDERED: IBUPROFEN 800 MG/8 ML IJ IVPB ONE (02:11)
[2020-12-27] MEDS: THIAMINE HCL 200 MG/2 ML VIAL IVPB SCH ×3 (02:41→19:11)
[2020-12-27] MEDS ORDERED: DEXTROSE 5%-WATER 100 ML IVPB ONE ×3 (02:49→17:16)
[2020-12-27] MEDS ORDERED: CEFEPIME HCL 1 GM VIAL (RESTRICTED TO ID) ONE ×3 (02:49→17:16)
[2020-12-27] MEDS: CEFEPIME 1 GM in DEXTROSE 5%-WATER 1 GM/100 ML BAG IVPB SCH ×3 (02:50→18:36)
[2020-12-27] MEDS: ACYCLOVIR INJECTION 500 MG in DEXTROSE 5%-WATER - 100 ML IVPB SCH ×2 (04:55→17:21)
[2020-12-27] MEDS: GABAPENTIN 100 MG CAPSULE PO SCH ×3 (05:28→23:46)
[2020-12-27 05:59] LABS: BASO % 0.5 % (0-2.0); HEMATOCRIT 22.6 % (32.4-45.2); HEMOGLOBIN 7.7 GM/dL (10.7-15.3); LYMPH % 9.5 % (8-40); MCH 28.6 pg (25.7-33.7); MCHC 33.9 g/dl (32.0-36.0); MEAN CELL VOLUME 84.4 fl (80-96); MEAN PLT VOLUME 9.5 fl (7.5-11.1); PLATELET COUNT 51 K/MM3 (134-434); RBC 2.68 M/mm3 (3.60-5.2); RDW 17.2 % (11.6-15.6); WHITE BLOOD COUNT 2.1 K/mm3 (4.0-10.0)
[2020-12-27 06:07] LABS: INR 0.92 (0.83-1.09); PROTHROMBIN TIME (PATIENT) 11.2 SEC (9.7-13.0)
[2020-12-27 06:09] LABS: ACTIVATED PTT 40.8 SECONDS (25.2-36.5)
[2020-12-27 06:17] LABS: CHLORIDE 110 mmol/L (98-107); SODIUM 140 mmol/L (136-145)
[2020-12-27 06:18] LABS: ALBUMIN 1.4 g/dl (3.4-5.0)
[2020-12-27 06:19] LABS: ANION GAP 7 MMOL/L (8-16); BLOOD UREA NITROGEN 16.7 mg/dL (7-18); CO2 24 mmol/L (21-32); GLUCOSE,RANDOM 90 mg/dL (74-106); MAGNESIUM 1.9 mg/dL (1.8-2.4)
[2020-12-27 06:22] LABS: CREATININE 1.2 mg/dL (0.55-1.3); SGOT/AST 493 U/L (15-37); SGPT/ALT 109 U/L (13-61)
[2020-12-27 06:23] LABS: PHOSPHOROUS 2.6 mg/dL (2.5-4.9)
[2020-12-27 06:24] LABS: BILIRUBIN,TOTAL 0.4 mg/dL (0.2-1); TOT PROT 4.3 g/dl (6.4-8.2)
[2020-12-27 06:32] LABS: ALK PHOS 364 U/L (45-117); CALCIUM 6.6 mg/dL (8.5-10.1)
[2020-12-27] MEDS ORDERED: LACTATED RINGERS SOLUTION 1,000 ML/1,000 ML INFUS.BAG IV STA (08:08)
[2020-12-27] MEDS ORDERED: METOPROLOL TARTRATE 5 MG/5 ML VIAL IVPUSH PRN (08:08)
[2020-12-27] MEDS: CHOLECALCIFEROL (VIT D3) 1,000 UNIT (25 MCG) TABLET PO SCH (10:00)
[2020-12-27] MEDS: PYRIDOXINE HCL (B-6) 50 MG TABLET (FP) PO SCH (10:00)
[2020-12-27] MEDS: MULTIVITAMINS (DAILY MVI) TABLET (FP) PO SCH (10:01)
[2020-12-27] MEDS: ATOVAQUONE 750 MG/5 ML (UNIT-DOSE PACKAGING) PO SCH ×2 (10:16→17:56)
[2020-12-27 12:04] LABS: LDH 673 U/L (84-246)
[2020-12-27] MEDS: LACTATED RINGERS SOLUTION 1,000 ML/1,000 ML INFUS.BAG IV SCH (12:54)
[2020-12-27] MEDS ORDERED: ACYCLOVIR INJECTION 500 MG in DEXTROSE 5%-WATER - 100 ML IVPB SCH (13:00)
[2020-12-27 16:51] LABS: LIPASE 224 U/L (73-393)
[2020-12-27] MEDS ORDERED: ACYCLOVIR 1000 MG (50MG/ML) VIAL IVPB SCH (17:00)
[2020-12-27 18:32] LABS: BASO % 0.5 % (0-2.0); EOS % 0.1 % (0-4.5); HEMATOCRIT 22.4 % (32.4-45.2); HEMOGLOBIN 7.4 GM/dL (10.7-15.3); LYMPH % 17.7 % (8-40); MEAN CELL VOLUME 84.8 fl (80-96); MEAN PLT VOLUME 10.5 fl (7.5-11.1); MONO % 10.9 % (3.8-10.2); NEUT % 70.8 % (42.8-82.8); PLATELET COUNT 43 K/MM3 (134-434); RBC 2.64 M/mm3 (3.60-5.2); RDW 17.5 % (11.6-15.6)
[2020-12-27 18:47] LABS: WHITE BLOOD COUNT 1.3 K/mm3 (4.0-10.0)
[2020-12-27 20:27] LABS: ANISOCYTOSIS 2+; MACROCYTOSIS 0; OVALOCYTE 1+; PLATELET ESTIMATE DECREASED
[2020-12-28] MEDS ORDERED: CEFEPIME HCL 1 GM VIAL (RESTRICTED TO ID) ONE ×3 (00:55→12:35)
[2020-12-28] MEDS ORDERED: DEXTROSE 5%-WATER 100 ML IVPB ONE ×3 (00:55→12:35)
[2020-12-28] MEDS: CEFEPIME 1 GM in DEXTROSE 5%-WATER 1 GM/100 ML BAG IVPB SCH ×3 (01:11→18:28)
[2020-12-28] MEDS: THIAMINE HCL 200 MG/2 ML VIAL IVPB SCH ×3 (03:21→18:28)
[2020-12-28] MEDS ORDERED: PT OWN MED DRAWER 7, Y5N ONE ×2 (06:34→16:30)
[2020-12-28] MEDS: GABAPENTIN 100 MG CAPSULE PO SCH ×3 (06:35→20:59)
[2020-12-28] MEDS: ACYCLOVIR INJECTION 500 MG in DEXTROSE 5%-WATER - 100 ML IVPB SCH ×2 (06:35→16:30)
[2020-12-28 07:55] LABS: BASO % 0.4 % (0-2.0); HEMATOCRIT 25.3 % (32.4-45.2); HEMOGLOBIN 8.6 GM/dL (10.7-15.3); LYMPH % 20.1 % (8-40); MCH 28.8 pg (25.7-33.7); MCHC 33.8 g/dl (32.0-36.0); MEAN CELL VOLUME 85.3 fl (80-96); MEAN PLT VOLUME 10.1 fl (7.5-11.1); MONO % 14.4 % (3.8-10.2); NEUT % 65.1 % (42.8-82.8); PLATELET COUNT 40 K/MM3 (134-434); RBC 2.97 M/mm3 (3.60-5.2)
[2020-12-28 07:57] LABS: INR 0.83 (0.83-1.09); PROTHROMBIN TIME (PATIENT) 10.3 SEC (9.7-13.0)
[2020-12-28 08:00] LABS: ACTIVATED PTT 37.7 SECONDS (25.2-36.5)
[2020-12-28] MEDS ORDERED: ATOVAQUONE 750 MG/5 ML (UNIT-DOSE PACKAGING) PO SCH (08:00)
[2020-12-28 08:11] LABS: CHLORIDE 114 mmol/L (98-107); SODIUM 143 mmol/L (136-145)
[2020-12-28 08:14] LABS: BLOOD UREA NITROGEN 25.7 mg/dL (7-18)
[2020-12-28 08:15] LABS: ALBUMIN 1.3 g/dl (3.4-5.0); ANION GAP 6 MMOL/L (8-16); CO2 24 mmol/L (21-32); GLUCOSE,RANDOM 73 mg/dL (74-106)
[2020-12-28 08:18] LABS: PHOSPHOROUS 2.7 mg/dL (2.5-4.9); SGOT/AST 719 U/L (15-37); SGPT/ALT 163 U/L (13-61)
[2020-12-28 08:19] LABS: BILIRUBIN,TOTAL 0.4 mg/dL (0.2-1); TOT PROT 4.3 g/dl (6.4-8.2)
[2020-12-28 08:22] LABS: ALK PHOS 432 U/L (45-117); CALCIUM 6.9 mg/dL (8.5-10.1)
[2020-12-28 08:43] LABS: WHITE BLOOD COUNT 1.7 K/mm3 (4.0-10.0)
[2020-12-28] MEDS: ATOVAQUONE 750 MG/5 ML (UNIT-DOSE PACKAGING) PO SCH ×2 (09:46→16:31)
[2020-12-28] MEDS: LACTATED RINGERS SOLUTION 1,000 ML/1,000 ML INFUS.BAG IV SCH (09:47)
[2020-12-28] MEDS: CHOLECALCIFEROL (VIT D3) 1,000 UNIT (25 MCG) TABLET PO SCH (09:57)
[2020-12-28] MEDS: PYRIDOXINE HCL (B-6) 50 MG TABLET (FP) PO SCH (09:57)
[2020-12-28] MEDS: MULTIVITAMINS (DAILY MVI) TABLET (FP) PO SCH (09:58)
[2020-12-28] MEDS ORDERED: guaiFENesin/D-METHORPHAN HB 10 ML UNIT-DOSE CUPS PO PRN (10:49)
[2020-12-28 11:39] LABS: ANISOCYTOSIS 1+; MACROCYTOSIS 0; PLATELET ESTIMATE DECREASED
[2020-12-28] MEDS: ALBUTEROL SO4 2.5/IPRATROPIUM 0.5 INH SOL 3 ML VIAL.NEB. NEB SCH ×2 (14:00→20:10)
[2020-12-29] MEDS ORDERED: PT OWN MED DRAWER 7, Y5N ONE (01:33)
[2020-12-29] MEDS ORDERED: CEFEPIME HCL 1 GM VIAL (RESTRICTED TO ID) ONE ×3 (01:34→14:08)
[2020-12-29] MEDS ORDERED: DEXTROSE 5%-WATER 100 ML IVPB ONE ×3 (01:34→14:08)
[2020-12-29] MEDS: CEFEPIME 1 GM in DEXTROSE 5%-WATER 1 GM/100 ML BAG IVPB SCH ×4 (01:53→17:08)
[2020-12-29] MEDS: THIAMINE HCL 200 MG/2 ML VIAL IVPB SCH ×3 (03:20→17:08)
[2020-12-29] MEDS: ACYCLOVIR INJECTION 500 MG in DEXTROSE 5%-WATER - 100 ML IVPB SCH ×2 (06:29→17:08)
[2020-12-29] MEDS: GABAPENTIN 100 MG CAPSULE PO SCH ×2 (06:29→14:24)
[2020-12-29 08:24] LABS: BASO % 0.4 % (0-2.0); HEMATOCRIT 18.9 % (32.4-45.2); LYMPH % 34.2 % (8-40); MCH 28.8 pg (25.7-33.7); MCHC 33.9 g/dl (32.0-36.0); MEAN CELL VOLUME 84.8 fl (80-96); MEAN PLT VOLUME 8.7 fl (7.5-11.1); MONO % 18.5 % (3.8-10.2); NEUT % 46.9 % (42.8-82.8); PLATELET COUNT 50 K/MM3 (134-434); RBC 2.22 M/mm3 (3.60-5.2); RDW 17.2 % (11.6-15.6)
[2020-12-29 08:31] LABS: INR 0.91 (0.83-1.09); PROTHROMBIN TIME (PATIENT) 11.2 SEC (9.7-13.0)
[2020-12-29 08:45] LABS: CHLORIDE 115 mmol/L (98-107); SODIUM 145 mmol/L (136-145)
[2020-12-29] MEDS: ALBUTEROL SO4 2.5/IPRATROPIUM 0.5 INH SOL 3 ML VIAL.NEB. NEB SCH ×2 (08:46→16:37)
[2020-12-29 08:57] LABS: ANION GAP 6 MMOL/L (8-16); BLOOD UREA NITROGEN 39.9 mg/dL (7-18); CO2 24 mmol/L (21-32); GLUCOSE,RANDOM 77 mg/dL (74-106); MAGNESIUM 1.9 mg/dL (1.8-2.4)
[2020-12-29 08:58] LABS: HEMOGLOBIN 6.4 GM/dL (10.7-15.3); WHITE BLOOD COUNT 1.3 K/mm3 (4.0-10.0)
[2020-12-29 09:00] LABS: ALBUMIN 1.2 g/dl (3.4-5.0); PHOSPHOROUS 2.8 mg/dL (2.5-4.9)
[2020-12-29 09:01] LABS: SGOT/AST 764 U/L (15-37)
[2020-12-29 09:02] LABS: ALK PHOS 405 U/L (45-117); TOT PROT 3.8 g/dl (6.4-8.2)
[2020-12-29 09:03] LABS: SGPT/ALT 185 U/L (13-61)
[2020-12-29 09:05] LABS: BILIRUBIN,TOTAL 0.2 mg/dL (0.2-1)
[2020-12-29 09:07] LABS: CALCIUM 6.9 mg/dL (8.5-10.1)
[2020-12-29] MEDS: ATOVAQUONE 750 MG/5 ML (UNIT-DOSE PACKAGING) PO SCH ×2 (09:33→17:08)
[2020-12-29] MEDS: LACTATED RINGERS SOLUTION 1,000 ML/1,000 ML INFUS.BAG IV SCH ×2 (09:37→21:10)
[2020-12-29] MEDS: CHOLECALCIFEROL (VIT D3) 1,000 UNIT (25 MCG) TABLET PO SCH (09:38)
[2020-12-29] MEDS: PYRIDOXINE HCL (B-6) 50 MG TABLET (FP) PO SCH (09:38)
[2020-12-29] MEDS: MULTIVITAMINS (DAILY MVI) TABLET (FP) PO SCH (09:38)
[2020-12-29] MEDS ORDERED: FUROSEMIDE 40 MG/4 ML INJECTABLE VIAL IVPUSH SCH ×2 (09:45→20:44)
[2020-12-29] MEDS ORDERED: LIDOCAINE HCL 2% JELLY (5 ML/TUBE) TP SCH (12:15)
[2020-12-29 12:46] LABS: ANISOCYTOSIS 1+; MACROCYTOSIS 1+; PLATELET ESTIMATE DECREASED
[2020-12-29] MEDS ORDERED: PANTOPRAZOLE SODIUM 80 MG in SODIUM CHLORIDE 100 ML IVPB SCH (17:00)
[2020-12-29 20:28] LABS: HEMATOCRIT 23.2 % (32.4-45.2); HEMOGLOBIN 7.8 GM/dL (10.7-15.3); MCH 29.2 pg (25.7-33.7); MCHC 33.7 g/dl (32.0-36.0); MEAN CELL VOLUME 86.6 fl (80-96); MEAN PLT VOLUME 9.2 fl (7.5-11.1); PLATELET COUNT 60 K/MM3 (134-434); RBC 2.68 M/mm3 (3.60-5.2); RDW 18.3 % (11.6-15.6); WHITE BLOOD COUNT 2.2 K/mm3 (4.0-10.0)
[2020-12-29] MEDS ORDERED: guaiFENesin/D-METHORPHAN HB 10 ML UNIT-DOSE CUPS PO PRN (20:44)
[2020-12-29] MEDS ORDERED: METOPROLOL TARTRATE 5 MG/5 ML VIAL IVPUSH PRN (20:44)
[2020-12-29] MEDS: MUPIROCIN 2% TOPICAL OINTMENT FOR DECOLONIZATION NS SCH (21:10)
[2020-12-29] MEDS: GABAPENTIN 300 MG CAPSULE PO SCH (21:10)
[2020-12-29] MEDS: CHLORHEXIDINE GLUCONATE 4% CLEANSER FOR DECOLONIZATION TP SCH (21:10)
[2020-12-29] MEDS ORDERED: CHLORHEXIDINE GLUCONATE 4% CLEANSER FOR DECOLONIZATION TP SCH (22:00)
[2020-12-29] MEDS ORDERED: MUPIROCIN 2% TOPICAL OINTMENT FOR DECOLONIZATION NS SCH (22:00)
[2020-12-30] MEDS ORDERED: DEXTROSE 5%-WATER 100 ML IVPB ONE ×3 (01:07→17:16)
[2020-12-30] MEDS ORDERED: CEFEPIME HCL 1 GM VIAL (RESTRICTED TO ID) ONE ×3 (01:07→17:16)
[2020-12-30] MEDS: CEFEPIME 1 GM in DEXTROSE 5%-WATER 1 GM/100 ML BAG IVPB SCH ×3 (01:16→17:33)
[2020-12-30] MEDS: THIAMINE HCL 200 MG/2 ML VIAL IVPB SCH ×3 (01:17→17:34)
[2020-12-30 01:19] LABS: HEMATOCRIT 20.5 % (32.4-45.2); MCH 29.2 pg (25.7-33.7); MEAN CELL VOLUME 85.9 fl (80-96); PLATELET COUNT 81 K/MM3 (134-434); RBC 2.38 M/mm3 (3.60-5.2); RDW 18.6 % (11.6-15.6); WHITE BLOOD COUNT 2.1 K/mm3 (4.0-10.0)
[2020-12-30] MEDS: PANTOPRAZOLE SODIUM 80 MG in SODIUM CHLORIDE 100 ML IVPB SCH ×2 (03:00→14:00)
[2020-12-30] MEDS: ACYCLOVIR INJECTION 500 MG in DEXTROSE 5%-WATER - 100 ML IVPB SCH ×2 (04:52→17:33)
[2020-12-30] MEDS: GABAPENTIN 300 MG CAPSULE PO SCH ×3 (05:00→21:16)
[2020-12-30 07:01] LABS: HEMATOCRIT 19.5 % (32.4-45.2); MCH 29.4 pg (25.7-33.7); MCHC 34.7 g/dl (32.0-36.0); MEAN CELL VOLUME 84.9 fl (80-96); MEAN PLT VOLUME 8.3 fl (7.5-11.1); PLATELET COUNT 70 K/MM3 (134-434); RBC 2.29 M/mm3 (3.60-5.2); RDW 18.8 % (11.6-15.6)
[2020-12-30 07:05] LABS: HEMOGLOBIN 6.7 GM/dL (10.7-15.3); INR 0.91 (0.83-1.09); PROTHROMBIN TIME (PATIENT) 11.2 SEC (9.7-13.0); WHITE BLOOD COUNT 1.8 K/mm3 (4.0-10.0)
[2020-12-30 07:07] LABS: ACTIVATED PTT 31.9 SECONDS (25.2-36.5)
[2020-12-30 07:15] LABS: ALBUMIN 1.4 g/dl (3.4-5.0); BLOOD UREA NITROGEN 41.8 mg/dL (7-18)
[2020-12-30 07:17] LABS: BILIRUBIN,DIRECT 0.2 mg/dL (0.0-0.2); CREATININE 1.1 mg/dL (0.55-1.3)
[2020-12-30 07:19] LABS: BILIRUBIN,TOTAL 0.4 mg/dL (0.2-1)
[2020-12-30] MEDS: ALBUTEROL SO4 2.5/IPRATROPIUM 0.5 INH SOL 3 ML VIAL.NEB. NEB SCH ×3 (07:55→20:49)
[2020-12-30] MEDS: ATOVAQUONE 750 MG/5 ML (UNIT-DOSE PACKAGING) PO SCH ×2 (09:04→17:33)
[2020-12-30] MEDS: MUPIROCIN 2% TOPICAL OINTMENT FOR DECOLONIZATION NS SCH ×2 (09:05→21:16)
[2020-12-30] MEDS: MULTIVITAMINS (DAILY MVI) TABLET (FP) PO SCH (09:07)
[2020-12-30] MEDS: PYRIDOXINE HCL (B-6) 50 MG TABLET (FP) PO SCH (09:08)
[2020-12-30] MEDS: CHOLECALCIFEROL (VIT D3) 1,000 UNIT (25 MCG) TABLET PO SCH (09:12)
[2020-12-30] MEDS ORDERED: HYDROmorphone HCl 2 MG/ML VIAL ONE (10:37)
[2020-12-30] MEDS: HYDROmorphone HCl 2 MG/ML VIAL IVPUSH PRN ×3 (10:40→18:34)
[2020-12-30 13:04] LABS: HEMATOCRIT 23.1 % (32.4-45.2); MCH 28.6 pg (25.7-33.7); MCHC 34.8 g/dl (32.0-36.0); MEAN CELL VOLUME 82.1 fl (80-96); MEAN PLT VOLUME 8.9 fl (7.5-11.1); PLATELET COUNT 69 K/MM3 (134-434); RBC 2.81 M/mm3 (3.60-5.2); RDW 20.7 % (11.6-15.6)
[2020-12-30] MEDS ORDERED: PT OWN MED DRAWER 7, Y5N ONE ×2 (13:29→17:18)
[2020-12-30] MEDS: LIDOCAINE HCL 2% JELLY (5 ML/TUBE) TP SCH (15:17)
[2020-12-30] MEDS: LACTATED RINGERS SOLUTION 1,000 ML/1,000 ML INFUS.BAG IV SCH ×2 (16:00→21:16)
[2020-12-30 21:15] LABS: BASO % 0.2 % (0-2.0); EOS % 0.1 % (0-4.5); HEMATOCRIT 23.9 % (32.4-45.2); LYMPH % 16.3 % (8-40); MCH 27.8 pg (25.7-33.7); MCHC 33.6 g/dl (32.0-36.0); MEAN CELL VOLUME 82.8 fl (80-96); MEAN PLT VOLUME 8.5 fl (7.5-11.1); MONO % 15.5 % (3.8-10.2); NEUT % 67.9 % (42.8-82.8); PLATELET COUNT 66 K/MM3 (134-434); RBC 2.88 M/mm3 (3.60-5.2); WHITE BLOOD COUNT 2.1 K/mm3 (4.0-10.0)
[2020-12-30] MEDS: CHLORHEXIDINE GLUCONATE 4% CLEANSER FOR DECOLONIZATION TP SCH (21:16)
[2020-12-30 22:01] LABS: ANISOCYTOSIS 2+; MACROCYTOSIS 1+; PLATELET ESTIMATE DECREASED
[2020-12-31] MEDS: PANTOPRAZOLE SODIUM 80 MG in SODIUM CHLORIDE 100 ML IVPB SCH ×3 (00:15→20:00)
[2020-12-31] MEDS ORDERED: CEFEPIME HCL 1 GM VIAL (RESTRICTED TO ID) ONE ×4 (00:21→23:38)
[2020-12-31] MEDS ORDERED: DEXTROSE 5%-WATER 100 ML IVPB ONE ×4 (00:21→23:38)
[2020-12-31] MEDS: CEFEPIME 1 GM in DEXTROSE 5%-WATER 1 GM/100 ML BAG IVPB SCH ×3 (01:18→17:52)
[2020-12-31] MEDS: THIAMINE HCL 200 MG/2 ML VIAL IVPB SCH ×3 (01:18→17:34)
[2020-12-31] MEDS: ACYCLOVIR INJECTION 500 MG in DEXTROSE 5%-WATER - 100 ML IVPB SCH ×2 (04:27→16:38)
[2020-12-31] MEDS: GABAPENTIN 300 MG CAPSULE PO SCH ×3 (05:10→21:30)
[2020-12-31 07:29] LABS: BASO % 0.4 % (0-2.0); HEMATOCRIT 23.1 % (32.4-45.2); HEMOGLOBIN 7.8 GM/dL (10.7-15.3); LYMPH % 13.4 % (8-40); MCH 28.2 pg (25.7-33.7); MCHC 33.8 g/dl (32.0-36.0); MEAN CELL VOLUME 83.4 fl (80-96); MEAN PLT VOLUME 8.8 fl (7.5-11.1); NEUT % 68.2 % (42.8-82.8); PLATELET COUNT 68 K/MM3 (134-434); RBC 2.77 M/mm3 (3.60-5.2); RDW 21.5 % (11.6-15.6); WHITE BLOOD COUNT 2.2 K/mm3 (4.0-10.0)
[2020-12-31] MEDS: ALBUTEROL SO4 2.5/IPRATROPIUM 0.5 INH SOL 3 ML VIAL.NEB. NEB SCH ×3 (07:45→20:22)
[2020-12-31 07:46] LABS: ALBUMIN 1.4 g/dl (3.4-5.0); BLOOD UREA NITROGEN 28.5 mg/dL (7-18)
[2020-12-31 07:47] LABS: CALCIUM 7.3 mg/dL (8.5-10.1); MAGNESIUM 1.8 mg/dL (1.8-2.4)
[2020-12-31 07:49] LABS: AMYLASE 158 U/L (25-115); LIPASE 258 U/L (73-393)
[2020-12-31 07:50] LABS: BILIRUBIN,DIRECT 0.2 mg/dL (0.0-0.2); CREATININE 1.1 mg/dL (0.55-1.3)
[2020-12-31 07:51] LABS: PHOSPHOROUS 2.7 mg/dL (2.5-4.9)
[2020-12-31 07:52] LABS: BILIRUBIN,TOTAL 0.4 mg/dL (0.2-1); TOT PROT 4.4 g/dl (6.4-8.2)
[2020-12-31] MEDS ORDERED: PT OWN MED DRAWER 7, Y5N ONE ×2 (08:47→09:15)
[2020-12-31] MEDS: ATOVAQUONE 750 MG/5 ML (UNIT-DOSE PACKAGING) PO SCH ×2 (10:42→17:52)
[2020-12-31] MEDS: MUPIROCIN 2% TOPICAL OINTMENT FOR DECOLONIZATION NS SCH ×2 (10:43→21:26)
[2020-12-31] MEDS: PYRIDOXINE HCL (B-6) 50 MG TABLET (FP) PO SCH (10:43)
[2020-12-31] MEDS: CHOLECALCIFEROL (VIT D3) 1,000 UNIT (25 MCG) TABLET PO SCH (10:43)
[2020-12-31] MEDS: MULTIVITAMINS (DAILY MVI) TABLET (FP) PO SCH (10:43)
[2020-12-31] MEDS: LIDOCAINE HCL 2% JELLY (5 ML/TUBE) TP SCH (13:38)
[2020-12-31 15:11] LABS: HEMATOCRIT 23.5 % (32.4-45.2); MCH 28.3 pg (25.7-33.7); MCHC 34.1 g/dl (32.0-36.0); MEAN CELL VOLUME 83.1 fl (80-96); MEAN PLT VOLUME 8.5 fl (7.5-11.1); PLATELET COUNT 70 K/MM3 (134-434); RBC 2.83 M/mm3 (3.60-5.2); RDW 21.2 % (11.6-15.6); WHITE BLOOD COUNT 2.2 K/mm3 (4.0-10.0)
[2020-12-31 21:12] LABS: BASO % 0.4 % (0-2.0); EOS % 0.1 % (0-4.5); HEMATOCRIT 22.6 % (32.4-45.2); HEMOGLOBIN 7.6 GM/dL (10.7-15.3); LYMPH % 17.3 % (8-40); MCHC 33.7 g/dl (32.0-36.0); MEAN CELL VOLUME 83.1 fl (80-96); MEAN PLT VOLUME 8.3 fl (7.5-11.1); NEUT % 61.2 % (42.8-82.8); PLATELET COUNT 75 K/MM3 (134-434); RBC 2.72 M/mm3 (3.60-5.2); RDW 21.7 % (11.6-15.6); WHITE BLOOD COUNT 2.2 K/mm3 (4.0-10.0)
[2020-12-31] MEDS: LACTATED RINGERS SOLUTION 1,000 ML/1,000 ML INFUS.BAG IV SCH (21:26)
[2020-12-31] MEDS: CHLORHEXIDINE GLUCONATE 4% CLEANSER FOR DECOLONIZATION TP SCH (21:26)
[2020-12-31] MEDS: HYDROmorphone HCl 2 MG/ML VIAL IVPUSH PRN (21:30)
[2020-12-31 22:46] LABS: ANISOCYTOSIS 3+; MACROCYTOSIS 0; OVALOCYTE 1+; PLATELET ESTIMATE DECREASED
[2021-01-01] MEDS: CEFEPIME 1 GM in DEXTROSE 5%-WATER 1 GM/100 ML BAG IVPB SCH ×3 (01:02→18:15)
[2021-01-01] MEDS: THIAMINE HCL 200 MG/2 ML VIAL IVPB SCH ×3 (01:03→18:15)
[2021-01-01] MEDS: ACYCLOVIR INJECTION 500 MG in DEXTROSE 5%-WATER - 100 ML IVPB SCH ×2 (06:04→18:15)
[2021-01-01] MEDS: GABAPENTIN 300 MG CAPSULE PO SCH ×3 (06:04→21:13)
[2021-01-01] MEDS: PANTOPRAZOLE SODIUM 80 MG in SODIUM CHLORIDE 100 ML IVPB SCH ×3 (06:05→19:00)
[2021-01-01 07:02] LABS: HEMATOCRIT 23.2 % (32.4-45.2); HEMOGLOBIN 7.9 GM/dL (10.7-15.3); MCH 28.4 pg (25.7-33.7); MCHC 33.9 g/dl (32.0-36.0); MEAN CELL VOLUME 83.7 fl (80-96); MEAN PLT VOLUME 8.6 fl (7.5-11.1); PLATELET COUNT 70 K/MM3 (134-434); RBC 2.78 M/mm3 (3.60-5.2); RDW 21.6 % (11.6-15.6)
[2021-01-01 07:09] LABS: WHITE BLOOD COUNT 1.7 K/mm3 (4.0-10.0)
[2021-01-01 07:25] LABS: CALCIUM 7.1 mg/dL (8.5-10.1)
[2021-01-01 07:26] LABS: ALBUMIN 1.5 g/dl (3.4-5.0); BLOOD UREA NITROGEN 20.4 mg/dL (7-18)
[2021-01-01 07:29] LABS: BILIRUBIN,DIRECT 0.2 mg/dL (0.0-0.2); CREATININE 0.9 mg/dL (0.55-1.3)
[2021-01-01 07:31] LABS: BILIRUBIN,TOTAL 0.4 mg/dL (0.2-1); TOT PROT 4.4 g/dl (6.4-8.2)
[2021-01-01] MEDS: ALBUTEROL SO4 2.5/IPRATROPIUM 0.5 INH SOL 3 ML VIAL.NEB. NEB SCH ×3 (07:55→20:25)
[2021-01-01] MEDS ORDERED: CEFEPIME HCL 1 GM VIAL (RESTRICTED TO ID) ONE ×2 (08:56→18:11)
[2021-01-01] MEDS ORDERED: PT OWN MED DRAWER 7, Y5N ONE ×4 (08:56→18:11)
[2021-01-01] MEDS ORDERED: DEXTROSE 5%-WATER 100 ML IVPB ONE ×2 (08:56→18:11)
[2021-01-01] MEDS: ATOVAQUONE 750 MG/5 ML (UNIT-DOSE PACKAGING) PO SCH ×2 (09:00→18:16)
[2021-01-01] MEDS: PYRIDOXINE HCL (B-6) 50 MG TABLET (FP) PO SCH (09:04)
[2021-01-01] MEDS: MULTIVITAMINS (DAILY MVI) TABLET (FP) PO SCH (09:04)
[2021-01-01] MEDS: CHOLECALCIFEROL (VIT D3) 1,000 UNIT (25 MCG) TABLET PO SCH (09:04)
[2021-01-01] MEDS: MUPIROCIN 2% TOPICAL OINTMENT FOR DECOLONIZATION NS SCH (09:05)
[2021-01-01] MEDS: LIDOCAINE HCL 2% JELLY (5 ML/TUBE) TP SCH (11:30)
[2021-01-01] MEDS ORDERED: LORazepam 2 MG/ML SDV VIAL IVPUSH ONE (13:48)
[2021-01-01] MEDS: HYDROmorphone HCl 2 MG/ML VIAL IVPUSH PRN (13:49)
[2021-01-01] MEDS ORDERED: LORazepam 2 MG/ML SDV VIAL ONE (13:54)
[2021-01-01] MEDS ORDERED: HYDROmorphone HCl 2 MG/ML VIAL IVPUSH PRN (19:40)
[2021-01-01] MEDS ORDERED: METOPROLOL TARTRATE 5 MG/5 ML VIAL IVPUSH PRN (19:40)
[2021-01-01] MEDS ORDERED: guaiFENesin/D-METHORPHAN HB 10 ML UNIT-DOSE CUPS PO PRN (19:40)
[2021-01-01] MEDS ORDERED: METOPROLOL TARTRATE 5 MG/5 ML VIAL IVPB PRN (19:58)
[2021-01-01] MEDS: LACTATED RINGERS SOLUTION 1,000 ML/1,000 ML INFUS.BAG IV SCH (20:00)
[2021-01-02] MEDS ORDERED: PANTOPRAZOLE SODIUM 80 MG in SODIUM CHLORIDE 100 ML IVPB SCH (01:00)
[2021-01-02] MEDS ORDERED: CEFEPIME HCL 1 GM VIAL (RESTRICTED TO ID) ONE ×3 (01:07→17:11)
[2021-01-02] MEDS ORDERED: DEXTROSE 5%-WATER 100 ML IVPB ONE ×3 (01:07→17:11)
[2021-01-02] MEDS: CEFEPIME 1 GM in DEXTROSE 5%-WATER 1 GM/100 ML BAG IVPB SCH ×3 (01:15→17:21)
[2021-01-02] MEDS: ACYCLOVIR INJECTION 500 MG in DEXTROSE 5%-WATER - 100 ML IVPB SCH ×3 (02:09→18:02)
[2021-01-02] MEDS: THIAMINE HCL 200 MG/2 ML VIAL IVPB SCH ×2 (02:21→13:41)
[2021-01-02] MEDS: GABAPENTIN 300 MG CAPSULE PO SCH ×3 (06:05→21:14)
[2021-01-02] MEDS: PANTOPRAZOLE SODIUM 80 MG in SODIUM CHLORIDE 100 ML IVPB SCH ×2 (06:05→17:21)
[2021-01-02 08:34] LABS: HEMOGLOBIN 7.8 GM/dL (10.7-15.3); MCH 28.3 pg (25.7-33.7); MCHC 33.8 g/dl (32.0-36.0); MEAN CELL VOLUME 83.9 fl (80-96); MEAN PLT VOLUME 8.5 fl (7.5-11.1); PLATELET COUNT 69 K/MM3 (134-434); RBC 2.74 M/mm3 (3.60-5.2); RDW 21.6 % (11.6-15.6)
[2021-01-02 08:39] LABS: INR 0.87 (0.83-1.09); PROTHROMBIN TIME (PATIENT) 10.8 SEC (9.7-13.0)
[2021-01-02 09:05] LABS: ALBUMIN 1.4 g/dl (3.4-5.0); BLOOD UREA NITROGEN 17.6 mg/dL (7-18); CALCIUM 7.5 mg/dL (8.5-10.1)
[2021-01-02 09:08] LABS: CREATININE 0.8 mg/dL (0.55-1.3)
[2021-01-02 09:10] LABS: BILIRUBIN,TOTAL 0.4 mg/dL (0.2-1); TOT PROT 4.3 g/dl (6.4-8.2)
[2021-01-02] MEDS: ATOVAQUONE 750 MG/5 ML (UNIT-DOSE PACKAGING) PO SCH ×2 (10:42→17:04)
[2021-01-02] MEDS: MULTIVITAMINS (DAILY MVI) TABLET (FP) PO SCH (10:42)
[2021-01-02] MEDS: CHOLECALCIFEROL (VIT D3) 1,000 UNIT (25 MCG) TABLET PO SCH (10:42)
[2021-01-02] MEDS: PYRIDOXINE HCL (B-6) 50 MG TABLET (FP) PO SCH (10:43)
[2021-01-02] MEDS: LIDOCAINE HCL 2% JELLY (5 ML/TUBE) TP SCH (13:42)
[2021-01-02] MEDS: ALBUTEROL SO4 2.5/IPRATROPIUM 0.5 INH SOL 3 ML VIAL.NEB. NEB SCH ×2 (14:29→20:35)
[2021-01-02] MEDS ORDERED: PT OWN MED DRAWER 7, Y5N ONE (17:11)
[2021-01-02] MEDS: LACTATED RINGERS SOLUTION 1,000 ML/1,000 ML INFUS.BAG IV SCH (19:50)
[2021-01-03] MEDS ORDERED: CEFEPIME HCL 1 GM VIAL (RESTRICTED TO ID) ONE ×3 (00:36→16:55)
[2021-01-03] MEDS ORDERED: DEXTROSE 5%-WATER 100 ML IVPB ONE ×3 (00:36→16:55)
[2021-01-03] MEDS ORDERED: PT OWN MED DRAWER 7, Y5N ONE ×4 (00:39→16:55)
[2021-01-03] MEDS: CEFEPIME 1 GM in DEXTROSE 5%-WATER 1 GM/100 ML BAG IVPB SCH ×3 (01:05→16:59)
[2021-01-03] MEDS: ACYCLOVIR INJECTION 500 MG in DEXTROSE 5%-WATER - 100 ML IVPB SCH ×3 (01:27→18:07)
[2021-01-03] MEDS: GABAPENTIN 300 MG CAPSULE PO SCH ×3 (06:16→21:26)
[2021-01-03] MEDS: ALBUTEROL SO4 2.5/IPRATROPIUM 0.5 INH SOL 3 ML VIAL.NEB. NEB SCH ×3 (07:40→19:55)
[2021-01-03 08:49] LABS: BASO % 0.3 % (0-2.0); HEMOGLOBIN 8.7 GM/dL (10.7-15.3); LYMPH % 18.9 % (8-40); MCH 28.1 pg (25.7-33.7); MCHC 33.2 g/dl (32.0-36.0); MEAN CELL VOLUME 84.4 fl (80-96); MEAN PLT VOLUME 8.5 fl (7.5-11.1); MONO % 25.5 % (3.8-10.2); NEUT % 55.3 % (42.8-82.8); PLATELET COUNT 85 K/MM3 (134-434); RBC 3.08 M/mm3 (3.60-5.2); RDW 22.5 % (11.6-15.6); WHITE BLOOD COUNT 2.4 K/mm3 (4.0-10.0)
[2021-01-03] MEDS: MULTIVITAMINS (DAILY MVI) TABLET (FP) PO SCH (09:16)
[2021-01-03] MEDS: THIAMINE HCL 100 MG TABLET (FP) PO SCH (09:16)
[2021-01-03] MEDS: CHOLECALCIFEROL (VIT D3) 1,000 UNIT (25 MCG) TABLET PO SCH (09:16)
[2021-01-03] MEDS: ATOVAQUONE 750 MG/5 ML (UNIT-DOSE PACKAGING) PO SCH ×2 (09:17→17:01)
[2021-01-03] MEDS: PYRIDOXINE HCL (B-6) 50 MG TABLET (FP) PO SCH (09:17)
[2021-01-03 09:53] LABS: CALCIUM 7.6 mg/dL (8.5-10.1)
[2021-01-03 09:54] LABS: ALBUMIN 1.6 g/dl (3.4-5.0); BLOOD UREA NITROGEN 15.3 mg/dL (7-18); MAGNESIUM 1.5 mg/dL (1.8-2.4)
[2021-01-03 09:57] LABS: BILIRUBIN,TOTAL 0.3 mg/dL (0.2-1); CREATININE 0.8 mg/dL (0.55-1.3); PHOSPHOROUS 2.2 mg/dL (2.5-4.9); TOT PROT 4.7 g/dl (6.4-8.2)
[2021-01-03] MEDS: LIDOCAINE HCL 2% JELLY (5 ML/TUBE) TP SCH (11:04)
[2021-01-03 11:20] LABS: ANISOCYTOSIS 1+; MACROCYTOSIS 1+; PLATELET ESTIMATE DECREASED
[2021-01-03] MEDS ORDERED: NAPH,MB-DB/K PH,MBDB POWDER PACKET PO ONE (13:39)
[2021-01-03] MEDS ORDERED: MAGNESIUM SULF 50% (8.12 MEQ/2 ML-1 GM VIAL) IVPB ONE (13:39)
[2021-01-03] MEDS ORDERED: ALBUTEROL SO4 HFA INHALER IH PRN (15:15)
[2021-01-03] MEDS: LACTATED RINGERS SOLUTION 1,000 ML/1,000 ML INFUS.BAG IV SCH ×2 (16:59→20:15)
[2021-01-04] MEDS ORDERED: DEXTROSE 5%-WATER 100 ML IVPB ONE ×3 (00:57→17:02)
[2021-01-04] MEDS ORDERED: CEFEPIME HCL 1 GM VIAL (RESTRICTED TO ID) ONE ×3 (00:57→17:02)
[2021-01-04] MEDS: CEFEPIME 1 GM in DEXTROSE 5%-WATER 1 GM/100 ML BAG IVPB SCH ×3 (01:00→17:21)
[2021-01-04 06:06] LABS: HEP B CORE AB, TOT Negative (Negative)
[2021-01-04] MEDS: GABAPENTIN 300 MG CAPSULE PO SCH ×3 (06:15→21:48)
[2021-01-04] MEDS: ALBUTEROL SO4 2.5/IPRATROPIUM 0.5 INH SOL 3 ML VIAL.NEB. NEB SCH ×3 (08:10→20:10)
[2021-01-04] MEDS ORDERED: PT OWN MED DRAWER 7, Y5N ONE ×3 (08:13→16:34)
[2021-01-04] MEDS: ATOVAQUONE 750 MG/5 ML (UNIT-DOSE PACKAGING) PO SCH ×2 (08:28→17:21)
[2021-01-04 08:40] LABS: BASO % 0.5 % (0-2.0); EOS % 0.1 % (0-4.5); HEMATOCRIT 26.2 % (32.4-45.2); HEMOGLOBIN 8.7 GM/dL (10.7-15.3); LYMPH % 18.3 % (8-40); MCH 28.2 pg (25.7-33.7); MCHC 33.4 g/dl (32.0-36.0); MEAN CELL VOLUME 84.5 fl (80-96); MEAN PLT VOLUME 8.6 fl (7.5-11.1); MONO % 24.8 % (3.8-10.2); NEUT % 56.3 % (42.8-82.8); PLATELET COUNT 85 K/MM3 (134-434); RDW 22.1 % (11.6-15.6); WHITE BLOOD COUNT 2.1 K/mm3 (4.0-10.0)
[2021-01-04 09:01] LABS: CALCIUM 7.3 mg/dL (8.5-10.1)
[2021-01-04 09:02] LABS: ALBUMIN 1.5 g/dl (3.4-5.0)
[2021-01-04 09:05] LABS: BLOOD UREA NITROGEN 10.7 mg/dL (7-18)
[2021-01-04 09:06] LABS: BILIRUBIN,TOTAL 0.3 mg/dL (0.2-1); CREATININE 0.7 mg/dL (0.55-1.3); PHOSPHOROUS 2.4 mg/dL (2.5-4.9); TOT PROT 4.8 g/dl (6.4-8.2)
[2021-01-04 09:55] LABS: ANISOCYTOSIS 1+; MACROCYTOSIS 0; PLATELET ESTIMATE DECREASED
[2021-01-04] MEDS: valACYclovir HCL 500 MG TABLET (FP) PO SCH ×2 (09:59→21:48)
[2021-01-04] MEDS: MULTIVITAMINS (DAILY MVI) TABLET (FP) PO SCH (09:59)
[2021-01-04] MEDS: CHOLECALCIFEROL (VIT D3) 1,000 UNIT (25 MCG) TABLET PO SCH (09:59)
[2021-01-04] MEDS: PYRIDOXINE HCL (B-6) 50 MG TABLET (FP) PO SCH (09:59)
[2021-01-04] MEDS: LIDOCAINE HCL 2% JELLY (5 ML/TUBE) TP SCH (10:00)
[2021-01-04] MEDS: THIAMINE HCL 100 MG TABLET (FP) PO SCH (10:00)
[2021-01-04] MEDS ORDERED: NAPH,MB-DB/K PH,MBDB POWDER PACKET PO ONE (11:51)
[2021-01-05] MEDS ORDERED: DEXTROSE 5%-WATER 100 ML IVPB ONE ×2 (02:34→09:37)
[2021-01-05] MEDS ORDERED: CEFEPIME HCL 1 GM VIAL (RESTRICTED TO ID) ONE ×2 (02:34→09:37)
[2021-01-05] MEDS: CEFEPIME 1 GM in DEXTROSE 5%-WATER 1 GM/100 ML BAG IVPB SCH ×2 (02:37→10:04)
[2021-01-05] MEDS: GABAPENTIN 300 MG CAPSULE PO SCH ×3 (05:36→23:01)
[2021-01-05] MEDS: ALBUTEROL SO4 2.5/IPRATROPIUM 0.5 INH SOL 3 ML VIAL.NEB. NEB SCH ×3 (07:40→20:40)
[2021-01-05 08:34] LABS: BASO % 0.7 % (0-2.0); EOS % 0.1 % (0-4.5); HEMATOCRIT 24.5 % (32.4-45.2); HEMOGLOBIN 8.3 GM/dL (10.7-15.3); LYMPH % 17.8 % (8-40); MCH 28.3 pg (25.7-33.7); MCHC 33.6 g/dl (32.0-36.0); MEAN CELL VOLUME 84.1 fl (80-96); MEAN PLT VOLUME 8.7 fl (7.5-11.1); MONO % 21.2 % (3.8-10.2); NEUT % 60.2 % (42.8-82.8); PLATELET COUNT 103 K/MM3 (134-434); RBC 2.92 M/mm3 (3.60-5.2); RDW 21.7 % (11.6-15.6); WHITE BLOOD COUNT 2.5 K/mm3 (4.0-10.0)
[2021-01-05 08:38] LABS: CHLORIDE 109 mmol/L (98-107); SODIUM 143 mmol/L (136-145)
[2021-01-05 08:49] LABS: ALBUMIN 1.5 g/dl (3.4-5.0); ANION GAP 4 MMOL/L (8-16); BLOOD UREA NITROGEN 11.4 mg/dL (7-18); CO2 30 mmol/L (21-32); GLUCOSE,RANDOM 86 mg/dL (74-106); MAGNESIUM 1.4 mg/dL (1.8-2.4)
[2021-01-05 08:52] LABS: CREATININE 0.7 mg/dL (0.55-1.3); PHOSPHOROUS 2.4 mg/dL (2.5-4.9); SGOT/AST 205 U/L (15-37); SGPT/ALT 87 U/L (13-61)
[2021-01-05 08:54] LABS: BILIRUBIN,TOTAL 0.4 mg/dL (0.2-1); TOT PROT 4.9 g/dl (6.4-8.2)
[2021-01-05 08:55] LABS: ALK PHOS 282 U/L (45-117)
[2021-01-05 08:57] LABS: CALCIUM 6.8 mg/dL (8.5-10.1)
[2021-01-05] MEDS ORDERED: PT OWN MED DRAWER 7, Y5N ONE ×2 (09:37→16:46)
[2021-01-05] MEDS: ATOVAQUONE 750 MG/5 ML (UNIT-DOSE PACKAGING) PO SCH ×2 (10:07→16:50)
[2021-01-05] MEDS: PYRIDOXINE HCL (B-6) 50 MG TABLET (FP) PO SCH (10:08)
[2021-01-05] MEDS: THIAMINE HCL 100 MG TABLET (FP) PO SCH (10:08)
[2021-01-05] MEDS: valACYclovir HCL 500 MG TABLET (FP) PO SCH ×2 (10:08→23:01)
[2021-01-05] MEDS: MULTIVITAMINS (DAILY MVI) TABLET (FP) PO SCH (10:09)
[2021-01-05] MEDS: CHOLECALCIFEROL (VIT D3) 1,000 UNIT (25 MCG) TABLET PO SCH (10:09)
[2021-01-05] MEDS ORDERED: POTASSIUM CHLORIDE TABS 20 MEQ TABLET.ER (FP) PO ONE (10:12)
[2021-01-05] MEDS ORDERED: NAPH,MB-DB/K PH,MBDB POWDER PACKET PO ONE (10:17)
[2021-01-05] MEDS ORDERED: MAGNESIUM SULF 50% (8.12 MEQ/2 ML-1 GM VIAL) IVPB ONE (10:17)
[2021-01-05] MEDS: guaiFENesin 600 MG TABLET.ER (FP) PO SCH ×2 (11:36→23:01)
[2021-01-05 11:56] LABS: ANISOCYTOSIS 2+; MACROCYTOSIS 0; PLATELET ESTIMATE DECREASED
[2021-01-05] MEDS: LIDOCAINE HCL 2% JELLY (5 ML/TUBE) TP SCH (15:10)
[2021-01-05 19:23] VITALS: BMI 20.2
[2021-01-05] MEDS: LACTOBACILLUS ACIDOPHILUS 1 TABLET PO SCH (23:01)
[2021-01-06] MEDS: GABAPENTIN 300 MG CAPSULE PO SCH ×3 (05:37→22:09)
[2021-01-06 06:10] LABS: BASO % 0.6 % (0-2.0); HEMATOCRIT 23.5 % (32.4-45.2); HEMOGLOBIN 7.9 GM/dL (10.7-15.3); LYMPH % 19.4 % (8-40); MCH 28.4 pg (25.7-33.7); MCHC 33.8 g/dl (32.0-36.0); MEAN CELL VOLUME 83.9 fl (80-96); MEAN PLT VOLUME 8.3 fl (7.5-11.1); MONO % 18.2 % (3.8-10.2); NEUT % 61.8 % (42.8-82.8); PLATELET COUNT 105 K/MM3 (134-434); RDW 21.9 % (11.6-15.6); WHITE BLOOD COUNT 2.6 K/mm3 (4.0-10.0)
[2021-01-06 06:49] LABS: ALBUMIN 1.6 g/dl (3.4-5.0); BILIRUBIN,TOTAL 0.2 mg/dL (0.2-1); BLOOD UREA NITROGEN 12.9 mg/dL (7-18); CALCIUM 7.1 mg/dL (8.5-10.1); CREATININE 0.7 mg/dL (0.55-1.3); MAGNESIUM 1.7 mg/dL (1.8-2.4); PHOSPHOROUS 2.5 mg/dL (2.5-4.9); TOT PROT 5.2 g/dl (6.4-8.2)
[2021-01-06] MEDS: ALBUTEROL SO4 2.5/IPRATROPIUM 0.5 INH SOL 3 ML VIAL.NEB. NEB SCH (08:25)
[2021-01-06 09:35] LABS: ANISOCYTOSIS 1+; MACROCYTOSIS 0; PLATELET ESTIMATE DECREASED
[2021-01-06] MEDS ORDERED: PT OWN MED DRAWER 7, Y5N ONE (10:31)
[2021-01-06] MEDS: guaiFENesin 600 MG TABLET.ER (FP) PO SCH ×2 (10:38→22:09)
[2021-01-06] MEDS: PYRIDOXINE HCL (B-6) 50 MG TABLET (FP) PO SCH (10:38)
[2021-01-06] MEDS: MULTIVITAMINS (DAILY MVI) TABLET (FP) PO SCH (10:38)
[2021-01-06] MEDS: ATOVAQUONE 750 MG/5 ML (UNIT-DOSE PACKAGING) PO SCH ×2 (10:38→16:33)
[2021-01-06] MEDS: LIDOCAINE HCL 2% JELLY (5 ML/TUBE) TP SCH (10:38)
[2021-01-06] MEDS: CHOLECALCIFEROL (VIT D3) 1,000 UNIT (25 MCG) TABLET PO SCH (10:38)
[2021-01-06] MEDS: THIAMINE HCL 100 MG TABLET (FP) PO SCH (10:38)
[2021-01-06] MEDS: LACTOBACILLUS ACIDOPHILUS 1 TABLET PO SCH ×2 (10:38→22:09)
[2021-01-06] MEDS: valACYclovir HCL 500 MG TABLET (FP) PO SCH ×2 (10:38→22:09)
[2021-01-06] MEDS: ASCORBIC ACID 500 MG TABLET (FP) PO SCH (10:38)
[2021-01-06] MEDS ORDERED: MAGNESIUM OXIDE 400 MG TABLET (FP) PO ONE (11:46)
[2021-01-07] MEDS: GABAPENTIN 300 MG CAPSULE PO SCH ×3 (06:49→21:32)
[2021-01-07 08:45] LABS: HEMATOCRIT 23.7 % (32.4-45.2); MCH 28.6 pg (25.7-33.7); MCHC 33.8 g/dl (32.0-36.0); MEAN CELL VOLUME 84.7 fl (80-96); MEAN PLT VOLUME 8.8 fl (7.5-11.1); PLATELET COUNT 120 K/MM3 (134-434); RBC 2.79 M/mm3 (3.60-5.2); WHITE BLOOD COUNT 2.9 K/mm3 (4.0-10.0)
[2021-01-07] MEDS ORDERED: PT OWN MED DRAWER 7, Y5N ONE ×2 (09:19→17:46)
[2021-01-07] MEDS: LACTOBACILLUS ACIDOPHILUS 1 TABLET PO SCH ×2 (09:54→21:32)
[2021-01-07] MEDS: THIAMINE HCL 100 MG TABLET (FP) PO SCH (09:54)
[2021-01-07] MEDS: ATOVAQUONE 750 MG/5 ML (UNIT-DOSE PACKAGING) PO SCH ×2 (09:54→17:48)
[2021-01-07] MEDS: CHOLECALCIFEROL (VIT D3) 1,000 UNIT (25 MCG) TABLET PO SCH (09:55)
[2021-01-07] MEDS: LIDOCAINE HCL 2% JELLY (5 ML/TUBE) TP SCH (09:55)
[2021-01-07] MEDS: valACYclovir HCL 500 MG TABLET (FP) PO SCH ×2 (09:55→21:32)
[2021-01-07] MEDS: ASCORBIC ACID 500 MG TABLET (FP) PO SCH (09:55)
[2021-01-07] MEDS: MULTIVITAMINS (DAILY MVI) TABLET (FP) PO SCH (09:55)
[2021-01-07] MEDS: guaiFENesin 600 MG TABLET.ER (FP) PO SCH ×2 (09:55→21:32)
[2021-01-07] MEDS: PYRIDOXINE HCL (B-6) 50 MG TABLET (FP) PO SCH (09:55)
[2021-01-07] MEDS: oxyCODONE HCL 5 MG TABLET PO PRN (09:55)
[2021-01-07] MEDS ORDERED: ALBUTEROL SO4 0.083% IH SOL 2.5 MG/3 ML VIAL.NEB. NEB PRN (10:23)
[2021-01-07 10:38] LABS: BLOOD UREA NITROGEN 11.4 mg/dL (7-18)
[2021-01-07 10:41] LABS: CREATININE 0.6 mg/dL (0.55-1.3)
[2021-01-07 10:43] LABS: CALCIUM 7.2 mg/dL (8.5-10.1); MAGNESIUM 1.4 mg/dL (1.8-2.4)
[2021-01-07 10:50] LABS: ALBUMIN 1.7 g/dl (3.4-5.0)
[2021-01-07 10:54] LABS: BILIRUBIN,DIRECT 0.1 mg/dL (0.0-0.2)
[2021-01-07 10:55] LABS: BILIRUBIN,TOTAL 0.4 mg/dL (0.2-1); TOT PROT 5.6 g/dl (6.4-8.2)
[2021-01-07] MEDS ORDERED: MAGNESIUM OXIDE 400 MG TABLET (FP) PO ONE (11:32)
[2021-01-07] MEDS: NYSTATIN 500,000 UNITS/5 ML SUSPENSION PO SCH ×2 (12:25→17:48)
[2021-01-07] MEDS: ALBUTEROL SO4 2.5/IPRATROPIUM 0.5 INH SOL 3 ML VIAL.NEB. NEB SCH ×3 (12:55→20:45)
[2021-01-07] MEDS ORDERED: METOPROLOL TARTRATE 25 MG TABLET (FP) PO ONE (13:55)
[2021-01-08] MEDS: NYSTATIN 500,000 UNITS/5 ML SUSPENSION PO SCH ×4 (00:05→18:52)
[2021-01-08] MEDS: oxyCODONE HCL 5 MG TABLET PO PRN (02:49)
[2021-01-08] MEDS: GABAPENTIN 300 MG CAPSULE PO SCH ×3 (06:37→21:01)
[2021-01-08] MEDS: ALBUTEROL SO4 2.5/IPRATROPIUM 0.5 INH SOL 3 ML VIAL.NEB. NEB SCH ×3 (08:15→20:05)
[2021-01-08 08:29] LABS: BASO % 0.6 % (0-2.0); HEMATOCRIT 23.3 % (32.4-45.2); HEMOGLOBIN 7.8 GM/dL (10.7-15.3); LYMPH % 26.3 % (8-40); MCH 28.5 pg (25.7-33.7); MCHC 33.4 g/dl (32.0-36.0); MEAN CELL VOLUME 85.5 fl (80-96); MEAN PLT VOLUME 8.9 fl (7.5-11.1); MONO % 15.1 % (3.8-10.2); PLATELET COUNT 119 K/MM3 (134-434); RBC 2.72 M/mm3 (3.60-5.2); RDW 21.6 % (11.6-15.6); WHITE BLOOD COUNT 2.5 K/mm3 (4.0-10.0)
[2021-01-08 08:46] LABS: ALBUMIN 1.8 g/dl (3.4-5.0)
[2021-01-08 08:47] LABS: BLOOD UREA NITROGEN 13.3 mg/dL (7-18); MAGNESIUM 1.4 mg/dL (1.8-2.4)
[2021-01-08 08:50] LABS: CREATININE 0.6 mg/dL (0.55-1.3); PHOSPHOROUS 3.4 mg/dL (2.5-4.9)
[2021-01-08 08:51] LABS: BILIRUBIN,TOTAL 0.3 mg/dL (0.2-1); TOT PROT 5.8 g/dl (6.4-8.2)
[2021-01-08] MEDS ORDERED: PT OWN MED DRAWER 7, Y5N ONE ×2 (09:47→18:51)
[2021-01-08] MEDS: PYRIDOXINE HCL (B-6) 50 MG TABLET (FP) PO SCH (09:50)
[2021-01-08] MEDS: valACYclovir HCL 500 MG TABLET (FP) PO SCH ×2 (09:50→21:01)
[2021-01-08] MEDS: THIAMINE HCL 100 MG TABLET (FP) PO SCH (09:50)
[2021-01-08] MEDS: LIDOCAINE HCL 2% JELLY (5 ML/TUBE) TP SCH (09:50)
[2021-01-08] MEDS: LACTOBACILLUS ACIDOPHILUS 1 TABLET PO SCH ×2 (09:50→21:01)
[2021-01-08] MEDS: ATOVAQUONE 750 MG/5 ML (UNIT-DOSE PACKAGING) PO SCH ×2 (09:50→18:52)
[2021-01-08] MEDS: guaiFENesin 600 MG TABLET.ER (FP) PO SCH ×2 (09:50→21:01)
[2021-01-08] MEDS: CHOLECALCIFEROL (VIT D3) 1,000 UNIT (25 MCG) TABLET PO SCH (09:50)
[2021-01-08] MEDS: ASCORBIC ACID 500 MG TABLET (FP) PO SCH (09:50)
[2021-01-08] MEDS: MULTIVITAMINS (DAILY MVI) TABLET (FP) PO SCH (09:50)
[2021-01-08] MEDS ORDERED: SODIUM CHLORIDE 250 ML IV STA (10:08)
[2021-01-08] MEDS ORDERED: SODIUM CHLORIDE 1,000 ML IV SCH (10:15)
[2021-01-08 10:36] LABS: ANISOCYTOSIS 1+; MACROCYTOSIS 0; PLATELET ESTIMATE DECREASED; ROULEAU 1+
[2021-01-08] MEDS ORDERED: oxyCODONE HCL 5 MG TABLET PO ONE (13:27)
[2021-01-09] MEDS: NYSTATIN 500,000 UNITS/5 ML SUSPENSION PO SCH ×4 (00:03→17:46)
[2021-01-09] MEDS ORDERED: IBUPROFEN 600 MG TABLET (FP) PO ONE (04:14)
[2021-01-09] MEDS: GABAPENTIN 300 MG CAPSULE PO SCH ×3 (05:44→22:24)
[2021-01-09] MEDS: ALBUTEROL SO4 2.5/IPRATROPIUM 0.5 INH SOL 3 ML VIAL.NEB. NEB SCH ×4 (08:00→20:56)
[2021-01-09] MEDS ORDERED: FUROSEMIDE 40 MG/4 ML INJECTABLE VIAL IVPUSH ONE (08:00)
[2021-01-09] MEDS ORDERED: PT OWN MED DRAWER 7, Y5N ONE ×2 (09:03→17:04)
[2021-01-09 09:21] LABS: BASO % 0.5 % (0-2.0); HEMATOCRIT 21.7 % (32.4-45.2); HEMOGLOBIN 7.2 GM/dL (10.7-15.3); LYMPH % 23.9 % (8-40); MCH 28.4 pg (25.7-33.7); MCHC 33.2 g/dl (32.0-36.0); MEAN CELL VOLUME 85.4 fl (80-96); MEAN PLT VOLUME 8.3 fl (7.5-11.1); MONO % 19.6 % (3.8-10.2); PLATELET COUNT 123 K/MM3 (134-434); RBC 2.54 M/mm3 (3.60-5.2); RDW 21.7 % (11.6-15.6)
[2021-01-09] MEDS: ATOVAQUONE 750 MG/5 ML (UNIT-DOSE PACKAGING) PO SCH ×2 (09:27→17:47)
[2021-01-09] MEDS: THIAMINE HCL 100 MG TABLET (FP) PO SCH (09:27)
[2021-01-09] MEDS: MULTIVITAMINS (DAILY MVI) TABLET (FP) PO SCH (09:27)
[2021-01-09] MEDS: LACTOBACILLUS ACIDOPHILUS 1 TABLET PO SCH ×2 (09:27→22:23)
[2021-01-09] MEDS: valACYclovir HCL 500 MG TABLET (FP) PO SCH ×2 (09:27→22:24)
[2021-01-09] MEDS: guaiFENesin 600 MG TABLET.ER (FP) PO SCH ×2 (09:27→22:24)
[2021-01-09] MEDS: CHOLECALCIFEROL (VIT D3) 1,000 UNIT (25 MCG) TABLET PO SCH (09:27)
[2021-01-09] MEDS: ASCORBIC ACID 500 MG TABLET (FP) PO SCH (09:27)
[2021-01-09] MEDS: DARUNAVIR 800 MG/COBICISTAT 150MG TABLET PO SCH (09:28)
[2021-01-09] MEDS: ABACAVIR SULFATE 300 MG TABLET PO SCH (09:29)
[2021-01-09] MEDS: LIDOCAINE HCL 2% JELLY (5 ML/TUBE) TP SCH (09:29)
[2021-01-09] MEDS: PYRIDOXINE HCL (B-6) 50 MG TABLET (FP) PO SCH (09:29)
[2021-01-09 09:49] LABS: CHLORIDE 107 mmol/L (98-107); SODIUM 142 mmol/L (136-145)
[2021-01-09 09:52] LABS: ALBUMIN 1.8 g/dl (3.4-5.0); ANION GAP 6 MMOL/L (8-16); BLOOD UREA NITROGEN 12.7 mg/dL (7-18); CO2 29 mmol/L (21-32); GLUCOSE,RANDOM 66 mg/dL (74-106)
[2021-01-09 09:54] LABS: MAGNESIUM 1.4 mg/dL (1.8-2.4)
[2021-01-09 09:55] LABS: CREATININE 0.7 mg/dL (0.55-1.3); PHOSPHOROUS 3.5 mg/dL (2.5-4.9); SGOT/AST 124 U/L (15-37); SGPT/ALT 55 U/L (13-61)
[2021-01-09 09:56] LABS: BILIRUBIN,TOTAL 0.4 mg/dL (0.2-1); TOT PROT 5.7 g/dl (6.4-8.2)
[2021-01-09 10:12] LABS: ALK PHOS 197 U/L (45-117); CALCIUM 6.8 mg/dL (8.5-10.1)
[2021-01-09 11:27] LABS: ANISOCYTOSIS 2+; MACROCYTOSIS 0; OVALOCYTE 1+; PLATELET ESTIMATE DECREASED
[2021-01-09] MEDS ORDERED: oxyCODONE HCL 5 MG TABLET PO ONE ×2 (13:21→22:12)
[2021-01-09] MEDS: FUROSEMIDE 40 MG/4 ML INJECTABLE VIAL IVPUSH SCH ×2 (17:47→22:24)
[2021-01-10] MEDS: GABAPENTIN 300 MG CAPSULE PO SCH ×2 (05:41→14:36)
[2021-01-10] MEDS: NYSTATIN 500,000 UNITS/5 ML SUSPENSION PO SCH ×4 (05:41→18:51)
[2021-01-10] MEDS: ALBUTEROL SO4 2.5/IPRATROPIUM 0.5 INH SOL 3 ML VIAL.NEB. NEB SCH ×4 (07:38→20:25)
[2021-01-10 08:25] LABS: BASO % 0.6 % (0-2.0); HEMATOCRIT 27.1 % (32.4-45.2); HEMOGLOBIN 9.3 GM/dL (10.7-15.3); LYMPH % 24.4 % (8-40); MCHC 34.2 g/dl (32.0-36.0); MEAN CELL VOLUME 84.7 fl (80-96); MEAN PLT VOLUME 8.7 fl (7.5-11.1); MONO % 21.2 % (3.8-10.2); NEUT % 53.8 % (42.8-82.8); PLATELET COUNT 148 K/MM3 (134-434); RDW 19.6 % (11.6-15.6); WHITE BLOOD COUNT 2.5 K/mm3 (4.0-10.0)
[2021-01-10 08:58] LABS: BLOOD UREA NITROGEN 14.6 mg/dL (7-18); MAGNESIUM 1.4 mg/dL (1.8-2.4)
[2021-01-10 09:00] LABS: PHOSPHOROUS 3.7 mg/dL (2.5-4.9)
[2021-01-10 09:01] LABS: CREATININE 0.8 mg/dL (0.55-1.3)
[2021-01-10 09:02] LABS: BILIRUBIN,TOTAL 0.4 mg/dL (0.2-1); TOT PROT 6.4 g/dl (6.4-8.2)
[2021-01-10] MEDS ORDERED: PT OWN MED DRAWER 7, Y5N ONE (09:49)
[2021-01-10] MEDS: ATOVAQUONE 750 MG/5 ML (UNIT-DOSE PACKAGING) PO SCH ×2 (10:13→18:51)
[2021-01-10] MEDS: valACYclovir HCL 500 MG TABLET (FP) PO SCH (10:14)
[2021-01-10] MEDS: DARUNAVIR 800 MG/COBICISTAT 150MG TABLET PO SCH (10:14)
[2021-01-10] MEDS: MULTIVITAMINS (DAILY MVI) TABLET (FP) PO SCH (10:14)
[2021-01-10] MEDS: LACTOBACILLUS ACIDOPHILUS 1 TABLET PO SCH (10:14)
[2021-01-10] MEDS: guaiFENesin 600 MG TABLET.ER (FP) PO SCH (10:14)
[2021-01-10] MEDS: ASCORBIC ACID 500 MG TABLET (FP) PO SCH (10:14)
[2021-01-10] MEDS: THIAMINE HCL 100 MG TABLET (FP) PO SCH (10:14)
[2021-01-10] MEDS: CHOLECALCIFEROL (VIT D3) 1,000 UNIT (25 MCG) TABLET PO SCH (10:14)
[2021-01-10] MEDS: ABACAVIR SULFATE 300 MG TABLET PO SCH (10:15)
[2021-01-10] MEDS: PYRIDOXINE HCL (B-6) 50 MG TABLET (FP) PO SCH (10:15)
[2021-01-10] MEDS: LIDOCAINE HCL 2% JELLY (5 ML/TUBE) TP SCH (10:15)
[2021-01-10 12:30] LABS: ANISOCYTOSIS 1+; MACROCYTOSIS 0; OVALOCYTE 1+; PLATELET ESTIMATE DECREASED
[2021-01-10 14:39] VITALS: BP 93/60; PULSE 138; TEMP 98.1
== END 2021-01-10 20:57 | DRG 97 ==
LOC: JER 09:28 → JERBED 16:33 → J7W 12-20 00:17 → J4S 12-23 11:30 → JICU 12-23 19:51 → J4W 12-27 04:00 → JICU 12-29 19:26 → J6S 01-02 00:53
PROVIDERS: ADMIT Internal Medicine; ATTEND Internal Medicine
PROC: 009U3ZX Drainage of Spinal Canal, Percutaneous Approach, Diagnostic (ICD-10-PCS; principal; 2020-12-22)
PROC: 05HM33Z Insertion of Infusion Device into Right Internal Jugular Vein, Percutaneous Approach (ICD-10-PCS; 2020-12-23)
PROC: B543ZZA Ultrasonography of Right Jugular Veins, Guidance (ICD-10-PCS; 2020-12-23)
PROC: 30233N1 Transfusion of Nonautologous Red Blood Cells into Peripheral Vein, Percutaneous Approach (ICD-10-PCS; 2020-12-23)
PROC: 30233R1 Transfusion of Nonautologous Platelets into Peripheral Vein, Percutaneous Approach (ICD-10-PCS; 2020-12-29)
PROC: 05HN33Z Insertion of Infusion Device into Left Internal Jugular Vein, Percutaneous Approach (ICD-10-PCS; 2021-01-01)
PROC: B544ZZA Ultrasonography of Left Jugular Veins, Guidance (ICD-10-PCS; 2021-01-01)
DX: B01.11 Varicella encephalitis and encephalomyelitis (principal); K85.90 Acute pancreatitis without necrosis or infection, unspecified; G93.41 Metabolic encephalopathy; E43 Unspecified severe protein-calorie malnutrition; J18.9 Pneumonia, unspecified organism; F50.00 Anorexia nervosa, unspecified; M62.82 Rhabdomyolysis; D62 Acute posthemorrhagic anemia; B20 Human immunodeficiency virus [HIV] disease; N17.9 Acute kidney failure, unspecified; R64 Cachexia; J44.9 Chronic obstructive pulmonary disease, unspecified; I10 Essential (primary) hypertension; E78.5 Hyperlipidemia, unspecified; K21.9 Gastro-esophageal reflux disease without esophagitis; F41.8 Other specified anxiety disorders; Z68.20 Body mass index [BMI] 20.0-20.9, adult; R74.01 Elevation of levels of liver transaminase levels; G47.00 Insomnia, unspecified; K76.0 Fatty (change of) liver, not elsewhere classified; R94.31 Abnormal electrocardiogram [ECG] [EKG]; G62.9 Polyneuropathy, unspecified; E86.0 Dehydration; D69.6 Thrombocytopenia, unspecified; R09.02 Hypoxemia; I95.9 Hypotension, unspecified; R00.0 Tachycardia, unspecified; F43.10 Post-traumatic stress disorder, unspecified; R94.5 Abnormal results of liver function studies; L89.142 Pressure ulcer of left lower back, stage 2; Z91.14 Patient's other noncompliance with medication regimen; E83.42 Hypomagnesemia; B37.9 Candidiasis, unspecified
CPT/HCPCS: 36415; 36430; 70450-TC; 70553-TC; 71045-TC-FY; 71250-TC; 71275-TC; 74176-TC; 74181-TC; 80048; 80053; 80076; 81003; 82140; 82150; 82272; 82533; 82550; 82553; 82607; 82728; 82746; 82945; 82962; 82977; 83010; 83540; 83550; 83605; 83615; 83690; 83735; 84100; 84157; 84443; 84484; 85025; 85027; 85045; 85379; 85384; 85397; 85610; 85730; 86022; 86140; 86359; 86360; 86480; 86704; 86706; 86707; 86708; 86709; 86803; 86850; 86880; 86900; 86901; 86922; 87040; 87070; 87086; 87116; 87205; 87340; 87449; 87497; 87529; 87798; 87799; 87899; 93005; 93010; 93306-TC; 93970-TC; 94010; 94640; 97116-GP; 97162-GP; 99285-25; A9579; C9803; J0131; J1644; P9034; P9058; Q9967; U0003; U0005

== ENCOUNTER 2021-04-16 18:23 | Inpatient (IN) | payer OTHER ==
[2021-04-16] MEDS ORDERED: SODIUM CHLORIDE 1,000 ML IV STA (19:33)
[2021-04-16] MEDS ORDERED: ACETAMINOPHEN 1000 MG/100 ML VIAL (NON FORMULARY) IVPB ONE (19:34)
[2021-04-16] MEDS ORDERED: ACETAMINOPHEN INJECTION 100 ML IVPB ONE (20:31)
[2021-04-16 21:05] LABS: ALBUMIN 3.6 g/dl (3.4-5.0); BLOOD UREA NITROGEN 11.1 mg/dL (7-18); CALCIUM 8.4 mg/dL (8.5-10.1); MAGNESIUM 1.9 mg/dL (1.8-2.4)
[2021-04-16 21:08] LABS: CREATININE 1.3 mg/dL (0.55-1.3); PHOSPHOROUS 3.3 mg/dL (2.5-4.9)
[2021-04-16 21:10] LABS: BILIRUBIN,TOTAL 0.2 mg/dL (0.2-1)
[2021-04-16] MEDS ORDERED: GABAPENTIN 300 MG CAPSULE PO ONE (22:02)
[2021-04-16] MEDS ORDERED: GABAPENTIN 100 MG CAPSULE ONE (22:04)
[2021-04-16 22:26] LABS: BASO % 1.2 % (0-2.0); EOS % 0.7 % (0-4.5); HEMATOCRIT 30.8 % (32.4-45.2); HEMOGLOBIN 10.5 GM/dL (10.7-15.3); LYMPH % 36.2 % (8-40); MCH 30.2 pg (25.7-33.7); MCHC 34.1 g/dl (32.0-36.0); MEAN CELL VOLUME 88.7 fl (80-96); MEAN PLT VOLUME 7.4 fl (7.5-11.1); NEUT % 40.9 % (42.8-82.8); PLATELET COUNT 177 10^3/uL (134-434); RBC 3.47 M/mm3 (3.60-5.2); RDW 13.2 % (11.6-15.6); WHITE BLOOD COUNT 3.1 K/mm3 (4.0-10.0)
[2021-04-16] MEDS ORDERED: morphine CARPU-JECT 4 MG/1 ML DISP.SYRIN IVPUSH ONE (23:22)
[2021-04-16] MEDS ORDERED: DEXTROSE 5%-0.45% SALINE 1,000 ML IV SCH (23:30)
[2021-04-16 23:38] LABS: PLATELET ESTIMATE ADEQUATE
[2021-04-16] MEDS ORDERED: morphine SULFATE 4 MG/ML VIAL ONE (23:43)
[2021-04-17] MEDS ORDERED: ACETAMINOPHEN 325 MG TABLET (FP) PO PRN ×2 (03:32→19:44)
[2021-04-17] MEDS: SODIUM CHLORIDE 1,000 ML IV SCH ×2 (04:39→22:25)
[2021-04-17 05:48] LABS: URINE APPEARANCE CLEAR; URINE BILIRUBIN NEGATIVE (NEGATIVE); URINE COLOR YELLOW; URINE GLUCOSE (UA) NEGATIVE (NEGATIVE); URINE KETONE NEGATIVE (NEGATIVE); URINE LEUK ESTERASE NEGATIVE (NEGATIVE); URINE NITRITE NEGATIVE (NEGATIVE); URINE PROTEIN TRACE (NEGATIVE); URINE UROBILINOGEN 0.2 mg/dL (0.2-1.0)
[2021-04-17] MEDS: INSULIN (NOVOLOG) ASPART 100 UNITS/ML 10ML VIAL SQ SCH ×3 (07:45→16:50)
[2021-04-17] MEDS ORDERED: ENOXAPARIN NA (PORCINE) 40 MG/0.4 ML DISP.SYRIN SQ ONE (11:32)
[2021-04-17] MEDS ORDERED: ACETAMINOPHEN 325 MG TABLET (FP) ONE ×2 (11:32→19:56)
[2021-04-17] MEDS: ENOXAPARIN NA (PORCINE) 40 MG/0.4 ML DISP.SYRIN SQ SCH ×2 (11:33→11:37)
[2021-04-17] MEDS ORDERED: ALBUTEROL SO4 0.083% IH SOL 2.5 MG/3 ML VIAL.NEB. NEB PRN (11:43)
[2021-04-17] MEDS ORDERED: ALBUTEROL SO4 HFA INHALER IH PRN (11:43)
[2021-04-17] MEDS ORDERED: [UNRECOGNIZED DRUG - OTHER] OU SCH (11:45)
[2021-04-17] MEDS ORDERED: PATIENT'S OWN MEDICATION (NON-FORMULARY) (Multivit-Min/Iron/Folic/Lutein [Centrum Silver W PO SCH (11:45)
[2021-04-17] MEDS ORDERED: GLYCERIN OU SCH (11:45)
[2021-04-17] MEDS ORDERED: PROPYLENE GLYCOL OU SCH (11:45)
[2021-04-17] MEDS: LIDOCAINE 5% TOPICAL PATCH TP SCH (11:52)
[2021-04-17] MEDS ORDERED: PATIENT'S OWN MEDICATION (NON-FORMULARY) (Abacavir Sulfate/Lamivudine [Abacavir-Lamivudine PO SCH (12:00)
[2021-04-17] MEDS ORDERED: GABAPENTIN 100 MG CAPSULE ONE (14:50)
[2021-04-17] MEDS ORDERED: PT OWN MED DRAWER 7, Y5N ONE (14:51)
[2021-04-17] MEDS: UMECLIDINIUM/VILANTEROL (ANORO) 62.5/25 MCG INHALER IH SCH (14:52)
[2021-04-17] MEDS: DARUNAVIR 800 MG/COBICISTAT 150MG TABLET PO SCH (14:53)
[2021-04-17] MEDS: VITAMIN B COMPLEX W/C COMBO TABLET (FP) PO SCH (14:53)
[2021-04-17] MEDS: GABAPENTIN 400 MG CAPSULE PO SCH ×2 (14:54→21:49)
[2021-04-17] MEDS: ABACAVIR SULFATE 300 MG TABLET PO SCH (14:54)
[2021-04-17] MEDS: MULTIVITAMINS (DAILY MVI) TABLET (FP) PO SCH (15:00)
[2021-04-17] MEDS ORDERED: MULTIVITAMINS (DAILY MVI) TABLET (FP) ONE (15:00)
[2021-04-17] MEDS: ATOVAQUONE 750 MG/5 ML (UNIT-DOSE PACKAGING) PO SCH (17:57)
[2021-04-17] MEDS: valACYclovir HCL 500 MG TABLET (FP) PO SCH (21:49)
[2021-04-17] MEDS: MIRTAZAPINE 15 MG TABLET (FP) PO SCH (21:49)
[2021-04-17] MEDS: rOPINIRole HCL 0.25 MG TABLET PO SCH (21:50)
[2021-04-17] MEDS: LACTOBACILLUS ACIDOPHILUS 1 TABLET PO SCH (21:50)
[2021-04-17] MEDS: LIDOCAINE PATCH REMOVAL MC SCH (22:03)
[2021-04-18] MEDS: SODIUM CHLORIDE 1,000 ML IV SCH ×2 (04:55→11:31)
[2021-04-18] MEDS: GABAPENTIN 400 MG CAPSULE PO SCH ×3 (05:57→22:20)
[2021-04-18] MEDS: INSULIN (NOVOLOG) ASPART 100 UNITS/ML 10ML VIAL SQ SCH ×3 (06:00→16:59)
[2021-04-18 07:46] LABS: BASO % 0.4 % (0-2.0); EOS % 0.6 % (0-4.5); HEMATOCRIT 33.2 % (32.4-45.2); HEMOGLOBIN 11.1 GM/dL (10.7-15.3); LYMPH % 42.3 % (8-40); MCH 29.8 pg (25.7-33.7); MCHC 33.4 g/dl (32.0-36.0); MEAN CELL VOLUME 89.3 fl (80-96); MEAN PLT VOLUME 7.9 fl (7.5-11.1); MONO % 17.2 % (3.8-10.2); NEUT % 39.5 % (42.8-82.8); PLATELET COUNT 155 10^3/uL (134-434); RBC 3.72 M/mm3 (3.60-5.2); RDW 13.5 % (11.6-15.6); WHITE BLOOD COUNT 2.9 K/mm3 (4.0-10.0)
[2021-04-18 08:13] LABS: BLOOD UREA NITROGEN 9.5 mg/dL (7-18)
[2021-04-18 08:14] LABS: CALCIUM 7.9 mg/dL (8.5-10.1); MAGNESIUM 1.9 mg/dL (1.8-2.4)
[2021-04-18 08:17] LABS: CREATININE 1.1 mg/dL (0.55-1.3); PHOSPHOROUS 4.1 mg/dL (2.5-4.9)
[2021-04-18 09:04] LABS: PLATELET ESTIMATE ADEQUATE
[2021-04-18] MEDS ORDERED: PT OWN MED DRAWER 7, Y5N ONE ×5 (11:18→18:24)
[2021-04-18] MEDS: lamiVUDine 150 MG TABLET PO SCH (11:23)
[2021-04-18] MEDS: valACYclovir HCL 500 MG TABLET (FP) PO SCH ×2 (11:24→22:21)
[2021-04-18] MEDS: DARUNAVIR 800 MG/COBICISTAT 150MG TABLET PO SCH (11:24)
[2021-04-18] MEDS: ABACAVIR SULFATE 300 MG TABLET PO SCH (11:24)
[2021-04-18] MEDS: MULTIVITAMINS (DAILY MVI) TABLET (FP) PO SCH (11:24)
[2021-04-18] MEDS: rOPINIRole HCL 0.25 MG TABLET PO SCH ×2 (11:25→22:20)
[2021-04-18] MEDS: LACTOBACILLUS ACIDOPHILUS 1 TABLET PO SCH ×2 (11:25→22:20)
[2021-04-18] MEDS: ENOXAPARIN NA (PORCINE) 40 MG/0.4 ML DISP.SYRIN SQ SCH (11:25)
[2021-04-18] MEDS: LIDOCAINE 5% TOPICAL PATCH TP SCH (11:25)
[2021-04-18] MEDS: VITAMIN B COMPLEX W/C COMBO TABLET (FP) PO SCH (11:25)
[2021-04-18] MEDS: ATOVAQUONE 750 MG/5 ML (UNIT-DOSE PACKAGING) PO SCH ×2 (11:26→18:25)
[2021-04-18] MEDS: UMECLIDINIUM/VILANTEROL (ANORO) 62.5/25 MCG INHALER IH SCH (11:35)
[2021-04-18 11:54] VITALS: BMI 18.6
[2021-04-18] MEDS: ONDANSETRON *ODT* 4 MG TABLET SL PRN ×2 (15:07→22:20)
[2021-04-18] MEDS: BANATROL PLUS POWDER PACKET PO SCH ×2 (15:09→22:19)
[2021-04-18] MEDS: MIRTAZAPINE 15 MG TABLET (FP) PO SCH (22:20)
[2021-04-18] MEDS: LIDOCAINE PATCH REMOVAL MC SCH (22:20)
[2021-04-19] MEDS: BANATROL PLUS POWDER PACKET PO SCH ×2 (06:04→14:09)
[2021-04-19] MEDS: GABAPENTIN 400 MG CAPSULE PO SCH ×2 (06:04→14:08)
[2021-04-19] MEDS: INSULIN (NOVOLOG) ASPART 100 UNITS/ML 10ML VIAL SQ SCH ×3 (06:09→17:32)
[2021-04-19] MEDS ORDERED: PT OWN MED DRAWER 7, Y5N ONE ×6 (08:43→14:02)
[2021-04-19 09:09] LABS: BASO % 0.6 % (0-2.0); EOS % 0.8 % (0-4.5); HEMATOCRIT 32.4 % (32.4-45.2); HEMOGLOBIN 10.9 GM/dL (10.7-15.3); LYMPH % 55.4 % (8-40); MCH 30.3 pg (25.7-33.7); MCHC 33.8 g/dl (32.0-36.0); MEAN CELL VOLUME 89.7 fl (80-96); MEAN PLT VOLUME 8.4 fl (7.5-11.1); NEUT % 29.2 % (42.8-82.8); PLATELET COUNT 156 10^3/uL (134-434); RBC 3.61 M/mm3 (3.60-5.2); RDW 13.7 % (11.6-15.6); WHITE BLOOD COUNT 2.2 K/mm3 (4.0-10.0)
[2021-04-19 09:31] LABS: CALCIUM 8.2 mg/dL (8.5-10.1)
[2021-04-19 09:32] LABS: ALBUMIN 3.1 g/dl (3.4-5.0); BLOOD UREA NITROGEN 4.8 mg/dL (7-18)
[2021-04-19 09:35] LABS: PHOSPHOROUS 3.7 mg/dL (2.5-4.9)
[2021-04-19 09:36] LABS: BILIRUBIN,TOTAL 0.2 mg/dL (0.2-1); TOT PROT 7.8 g/dl (6.4-8.2)
[2021-04-19] MEDS: ATOVAQUONE 750 MG/5 ML (UNIT-DOSE PACKAGING) PO SCH (09:41)
[2021-04-19] MEDS: LIDOCAINE 5% TOPICAL PATCH TP SCH (10:16)
[2021-04-19] MEDS: MULTIVITAMINS (DAILY MVI) TABLET (FP) PO SCH (10:16)
[2021-04-19] MEDS: valACYclovir HCL 500 MG TABLET (FP) PO SCH (10:16)
[2021-04-19] MEDS: LACTOBACILLUS ACIDOPHILUS 1 TABLET PO SCH (10:16)
[2021-04-19] MEDS ORDERED: LOPERAMIDE HCL 2 MG CAPSULE PO ONE (10:17)
[2021-04-19] MEDS: ABACAVIR SULFATE 300 MG TABLET PO SCH (10:17)
[2021-04-19] MEDS: DARUNAVIR 800 MG/COBICISTAT 150MG TABLET PO SCH (10:17)
[2021-04-19] MEDS: lamiVUDine 150 MG TABLET PO SCH (10:17)
[2021-04-19] MEDS: rOPINIRole HCL 0.25 MG TABLET PO SCH (10:18)
[2021-04-19] MEDS: VITAMIN B COMPLEX W/C COMBO TABLET (FP) PO SCH (10:18)
[2021-04-19] MEDS: ENOXAPARIN NA (PORCINE) 40 MG/0.4 ML DISP.SYRIN SQ SCH (10:18)
[2021-04-19] MEDS: UMECLIDINIUM/VILANTEROL (ANORO) 62.5/25 MCG INHALER IH SCH (10:19)
[2021-04-19 11:48] LABS: ANISOCYTOSIS 1+; MACROCYTOSIS 0; PLATELET ESTIMATE NORMAL; TEAR DROP CELLS 1+
[2021-04-19 15:38] VITALS: BP 108/63; PULSE 65; TEMP 97.8
== END 2021-04-19 17:05 | disposition home or self-care (01) | DRG 392 ==
LOC: JER 18:23 → JERBED 23:45 → J8W 04-17 20:37
PROVIDERS: ADMIT Internal Medicine; ATTEND Internal Medicine
DX: K52.9 Noninfective gastroenteritis and colitis, unspecified (principal); Z68.1 Body mass index [BMI] 19.9 or less, adult; F50.00 Anorexia nervosa, unspecified; I10 Essential (primary) hypertension; E78.5 Hyperlipidemia, unspecified; K21.9 Gastro-esophageal reflux disease without esophagitis; J44.9 Chronic obstructive pulmonary disease, unspecified; Z21 Asymptomatic human immunodeficiency virus [HIV] infection status; F43.10 Post-traumatic stress disorder, unspecified; E86.0 Dehydration; K76.0 Fatty (change of) liver, not elsewhere classified; F41.8 Other specified anxiety disorders; G47.00 Insomnia, unspecified; Z88.0 Allergy status to penicillin; G62.9 Polyneuropathy, unspecified; R63.4 Abnormal weight loss; Z99.81 Dependence on supplemental oxygen
CPT/HCPCS: 36415; 74177-TC; 80048; 80053; 81003; 82962; 83605; 83735; 84100; 84484; 85025; 86359; 86360; 87015; 87045; 87046; 87177; 87205; 87207; 87209; 87324; 87328; 87329; 87449; 93005; 93010; 99285-25; C9803; J0131; Q0162; Q9967; U0003; U0005

== ENCOUNTER 2021-06-24 13:52 | Inpatient (IN) | payer OTHER ==
[2021-06-24] MEDS ORDERED: MECLIZINE HCL 25 MG TABLET (FP) PO ONE (15:12)
[2021-06-24] MEDS ORDERED: SODIUM CHLORIDE 0.9% 1000 ML INFUS.BAG IV ONE (15:12)
[2021-06-24] MEDS ORDERED: ACETAMINOPHEN 1000 MG/100 ML VIAL IVPB ONE (15:18)
[2021-06-24] MEDS ORDERED: ACETAMINOPHEN INJECTION 100 ML IVPB ONE (15:37)
[2021-06-24] MEDS ORDERED: MECLIZINE HCL 25 MG TABLET (FP) ONE ×2 (15:37→22:18)
[2021-06-24] MEDS ORDERED: ACETAMINOPHEN 500 MG TABLET (FP) PO ONE ×2 (15:53→16:08)
[2021-06-24] MEDS ORDERED: ACETAMINOPHEN 325 MG TABLET (FP) ONE (15:54)
[2021-06-24 16:30] LABS: HEMATOCRIT 29.5 % (32.4-45.2); HEMOGLOBIN 9.8 GM/dL (10.7-15.3); MCH 27.7 pg (25.7-33.7); MCHC 33.4 g/dl (32.0-36.0); MEAN CELL VOLUME 82.9 fl (80-96); MEAN PLT VOLUME 8.5 fl (7.5-11.1); PLATELET COUNT 190 10^3/uL (134-434); RBC 3.55 M/mm3 (3.60-5.2); RDW 14.2 % (11.6-15.6); WHITE BLOOD COUNT 2.7 K/mm3 (4.0-10.0)
[2021-06-24 16:39] LABS: INR 1.09 (0.83-1.09); PROTHROMBIN TIME (PATIENT) 12.8 SEC (9.7-13.0)
[2021-06-24 16:41] LABS: ACTIVATED PTT 32.9 SECONDS (25.2-36.5)
[2021-06-24 17:00] LABS: CHLORIDE 103 mmol/L (98-107); SODIUM 136 mmol/L (136-145)
[2021-06-24 17:04] LABS: ALBUMIN 2.7 g/dl (3.4-5.0); ANION GAP 7 MMOL/L (8-16); BLOOD UREA NITROGEN 9.4 mg/dL (7-18); CALCIUM 8.2 mg/dL (8.5-10.1); CO2 26 mmol/L (21-32); GLUCOSE,RANDOM 91 mg/dL (74-106); LIPASE 162 U/L (73-393)
[2021-06-24 17:07] LABS: CREATININE 0.8 mg/dL (0.55-1.3); SGOT/AST 42 U/L (15-37); SGPT/ALT 19 U/L (13-61)
[2021-06-24 17:08] LABS: BILIRUBIN,TOTAL 0.4 mg/dL (0.2-1)
[2021-06-24 17:09] LABS: TOT PROT 8.2 g/dl (6.4-8.2)
[2021-06-24 17:10] LABS: ALK PHOS 79 U/L (45-117)
[2021-06-24 18:19] LABS: ANISOCYTOSIS 1+; MACROCYTOSIS 0; OVALOCYTE 1+; PLATELET ESTIMATE NORMAL
[2021-06-24] MEDS ORDERED: FAMOTIDINE 20 MG TABLET PO ONE (18:34)
[2021-06-24] MEDS ORDERED: MAG HYDROX/AL HYDROX/SIMETH -MYLANTA- ORAL SUSPENSION PO ONE (18:34)
[2021-06-24] MEDS ORDERED: MAG HYDROX/AL HYDROX/SIMETH 30 ML UNIT-DOSE CUP ONE (19:17)
[2021-06-24] MEDS ORDERED: FAMOTIDINE 20 MG TABLET ONE (19:17)
[2021-06-24 21:09] LABS: IRON SERUM 23 ug/dL (50-175)
[2021-06-24 21:10] LABS: TOTAL IRON BINDING CAPACITY 132 ug/dL (250-450)
[2021-06-24 21:19] LABS: RETICULOCYTES 0.82 % (0.5-1.5)
[2021-06-24] MEDS ORDERED: SODIUM CHLORIDE 1,000 ML IV SCH (21:30)
[2021-06-24 21:41] LABS: MAGNESIUM 1.7 mg/dL (1.8-2.4)
[2021-06-24 21:44] LABS: PHOSPHOROUS 3.3 mg/dL (2.5-4.9)
[2021-06-24] MEDS ORDERED: valACYclovir HCL 500 MG TABLET (FP) ONE (22:19)
[2021-06-24] MEDS ORDERED: MIRTAZAPINE 15 MG TABLET (FP) ONE (22:19)
[2021-06-24] MEDS: MIRTAZAPINE 15 MG TABLET (FP) PO SCH (22:23)
[2021-06-24] MEDS: MECLIZINE HCL 25 MG TABLET (FP) PO SCH (22:23)
[2021-06-24] MEDS: valACYclovir HCL 500 MG TABLET (FP) PO SCH (22:24)
[2021-06-24] MEDS: INSULIN SLIDING SCALE (NOVOLOG) 1 VIAL SQ SCH (23:27)
[2021-06-25] MEDS ORDERED: MAGNESIUM SULF 50% (8.12 MEQ/2 ML-1 GM VIAL) IVPB ONE (01:30)
[2021-06-25] MEDS: MECLIZINE HCL 25 MG TABLET (FP) PO SCH ×3 (06:45→21:42)
[2021-06-25] MEDS: INSULIN SLIDING SCALE (NOVOLOG) 1 VIAL SQ SCH ×4 (06:50→21:42)
[2021-06-25 09:11] LABS: HEMATOCRIT 28.9 % (32.4-45.2); HEMOGLOBIN 9.6 GM/dL (10.7-15.3); MCH 27.9 pg (25.7-33.7); MCHC 33.4 g/dl (32.0-36.0); MEAN CELL VOLUME 83.7 fl (80-96); MEAN PLT VOLUME 8.4 fl (7.5-11.1); PLATELET COUNT 166 10^3/uL (134-434); RBC 3.45 M/mm3 (3.60-5.2); RDW 14.2 % (11.6-15.6)
[2021-06-25] MEDS: valACYclovir HCL 500 MG TABLET (FP) PO SCH (09:25)
[2021-06-25 09:30] LABS: WHITE BLOOD COUNT 1.6 K/mm3 (4.0-10.0)
[2021-06-25 09:57] LABS: PHOSPHOROUS 3.4 mg/dL (2.5-4.9)
[2021-06-25] MEDS ORDERED: SULFAMETHOXAZOLE/TRIMETHOPRIM 800MG/160MG D.S. TABLET PO SCH (10:00)
[2021-06-25] MEDS ORDERED: ENOXAPARIN NA (PORCINE) 30 MG/0.3 ML DISP.SYRIN SQ SCH (10:00)
[2021-06-25 10:01] LABS: ALBUMIN 2.4 g/dl (3.4-5.0); BLOOD UREA NITROGEN 8.9 mg/dL (7-18); CALCIUM 8.3 mg/dL (8.5-10.1); MAGNESIUM 1.9 mg/dL (1.8-2.4)
[2021-06-25 10:04] LABS: CREATININE 0.8 mg/dL (0.55-1.3)
[2021-06-25 10:05] LABS: BILIRUBIN,TOTAL 0.3 mg/dL (0.2-1)
[2021-06-25 10:06] LABS: TOT PROT 7.4 g/dl (6.4-8.2)
[2021-06-25 11:53] LABS: ANISOCYTOSIS 0; MACROCYTOSIS 0; PLATELET ESTIMATE NORMAL
[2021-06-25 13:09] LABS: EPI CELLS 8 /uL (0-25.1); HYALINE CASTS 1 /uL (0-3.1); URINE APPEARANCE CLEAR; URINE BACTERIA 40 /uL (0-1359); URINE BILIRUBIN NEGATIVE (NEGATIVE); URINE COLOR YELLOW; URINE GLUCOSE (UA) NEGATIVE (NEGATIVE); URINE KETONE NEGATIVE (NEGATIVE); URINE LEUK ESTERASE TRACE (NEGATIVE); URINE NITRITE NEGATIVE (NEGATIVE); URINE PROTEIN 1+ (NEGATIVE); URINE RBC 17 /uL (0-23.9); URINE UROBILINOGEN 0.2 mg/dL (0.2-1.0); URINE WBC 65 /uL (0-25.8)
[2021-06-25] MEDS ORDERED: ACETAMINOPHEN 325 MG TABLET (FP) PO PRN (19:48)
[2021-06-25] MEDS ORDERED: valACYclovir HCL 500 MG TABLET (FP) ONE (21:35)
[2021-06-25] MEDS: NAPH,MB-DB/K PH,MBDB POWDER PACKET PO SCH (21:43)
[2021-06-25] MEDS: valACYclovir HCL 1000 MG TABLET PO SCH (21:43)
[2021-06-25] MEDS: MIRTAZAPINE 15 MG TABLET (FP) PO SCH (21:43)
[2021-06-26] MEDS: MECLIZINE HCL 25 MG TABLET (FP) PO SCH ×3 (06:15→21:35)
[2021-06-26] MEDS: INSULIN SLIDING SCALE (NOVOLOG) 1 VIAL SQ SCH ×4 (06:15→21:35)
[2021-06-26 08:40] LABS: HEMATOCRIT 26.2 % (32.4-45.2); HEMOGLOBIN 8.6 GM/dL (10.7-15.3); MCH 27.3 pg (25.7-33.7); MCHC 32.7 g/dl (32.0-36.0); MEAN CELL VOLUME 83.4 fl (80-96); MEAN PLT VOLUME 8.2 fl (7.5-11.1); PLATELET COUNT 168 10^3/uL (134-434); RBC 3.14 M/mm3 (3.60-5.2); RDW 14.6 % (11.6-15.6)
[2021-06-26 09:02] LABS: BLOOD UREA NITROGEN 9.9 mg/dL (7-18)
[2021-06-26 09:03] LABS: MAGNESIUM 1.5 mg/dL (1.8-2.4); WHITE BLOOD COUNT 1.4 K/mm3 (4.0-10.0)
[2021-06-26 09:05] LABS: CREATININE 0.8 mg/dL (0.55-1.3); PHOSPHOROUS 3.4 mg/dL (2.5-4.9)
[2021-06-26] MEDS ORDERED: valACYclovir HCL 500 MG TABLET (FP) ONE ×2 (10:04→21:29)
[2021-06-26] MEDS ORDERED: PT OWN MED DRAWER 7, Y5N ONE (10:04)
[2021-06-26] MEDS: NAPH,MB-DB/K PH,MBDB POWDER PACKET PO SCH (10:11)
[2021-06-26] MEDS: DARUNAVIR 800 MG/COBICISTAT 150MG TABLET PO SCH (10:12)
[2021-06-26] MEDS: valACYclovir HCL 1000 MG TABLET PO SCH ×2 (10:12→21:36)
[2021-06-26] MEDS: ABACAVIR SULFATE 300 MG TABLET PO SCH (10:13)
[2021-06-26] MEDS ORDERED: MAGNESIUM SULF 50% (8.12 MEQ/2 ML-1 GM VIAL) IVPB ONE (10:25)
[2021-06-26 18:42] VITALS: BMI 17.1
[2021-06-26] MEDS: MIRTAZAPINE 15 MG TABLET (FP) PO SCH (21:35)
[2021-06-27] MEDS: MECLIZINE HCL 25 MG TABLET (FP) PO SCH ×3 (06:44→22:25)
[2021-06-27] MEDS: INSULIN SLIDING SCALE (NOVOLOG) 1 VIAL SQ SCH ×4 (06:45→22:25)
[2021-06-27 08:42] LABS: HEMATOCRIT 26.3 % (32.4-45.2); HEMOGLOBIN 8.6 GM/dL (10.7-15.3); MCH 27.2 pg (25.7-33.7); MCHC 32.8 g/dl (32.0-36.0); MEAN CELL VOLUME 83.1 fl (80-96); MEAN PLT VOLUME 8.4 fl (7.5-11.1); PLATELET COUNT 178 10^3/uL (134-434); RBC 3.17 M/mm3 (3.60-5.2); RDW 14.5 % (11.6-15.6)
[2021-06-27 09:04] LABS: WHITE BLOOD COUNT 1.4 K/mm3 (4.0-10.0)
[2021-06-27 09:09] LABS: CALCIUM 8.1 mg/dL (8.5-10.1)
[2021-06-27 09:10] LABS: ALBUMIN 2.3 g/dl (3.4-5.0); BLOOD UREA NITROGEN 9.9 mg/dL (7-18)
[2021-06-27 09:11] LABS: BILIRUBIN,TOTAL 0.2 mg/dL (0.2-1)
[2021-06-27 09:13] LABS: CREATININE 0.8 mg/dL (0.55-1.3)
[2021-06-27] MEDS ORDERED: MULTIVITAMINS THER W-MINERALS COMBO TABLET (FP) PO SCH (10:00)
[2021-06-27] MEDS ORDERED: valACYclovir HCL 500 MG TABLET (FP) ONE ×2 (10:05→22:20)
[2021-06-27] MEDS ORDERED: PT OWN MED DRAWER 7, Y5N ONE (10:05)
[2021-06-27] MEDS: valACYclovir HCL 1000 MG TABLET PO SCH ×2 (10:09→22:24)
[2021-06-27] MEDS: MULTIVITAMINS THER W-MINERALS COMBO TABLET (FP) PO SCH (10:09)
[2021-06-27] MEDS: DARUNAVIR 800 MG/COBICISTAT 150MG TABLET PO SCH (11:34)
[2021-06-27] MEDS: ABACAVIR SULFATE 300 MG TABLET PO SCH (11:34)
[2021-06-27] MEDS: MIRTAZAPINE 15 MG TABLET (FP) PO SCH (22:25)
[2021-06-28] MEDS: MECLIZINE HCL 25 MG TABLET (FP) PO SCH ×2 (06:22→14:12)
[2021-06-28] MEDS: INSULIN SLIDING SCALE (NOVOLOG) 1 VIAL SQ SCH ×3 (06:24→16:31)
[2021-06-28] MEDS ORDERED: ATOVAQUONE 750 MG/5 ML (UNIT-DOSE PACKAGING) PO SCH (08:00)
[2021-06-28 08:34] LABS: HEMATOCRIT 25.7 % (32.4-45.2); HEMOGLOBIN 8.5 GM/dL (10.7-15.3); MCH 27.1 pg (25.7-33.7); MEAN CELL VOLUME 82.1 fl (80-96); MEAN PLT VOLUME 8.1 fl (7.5-11.1); PLATELET COUNT 170 10^3/uL (134-434); RBC 3.13 M/mm3 (3.60-5.2); RDW 14.3 % (11.6-15.6)
[2021-06-28] MEDS ORDERED: PT OWN MED DRAWER 7, Y5N ONE ×2 (08:34→09:28)
[2021-06-28 08:42] LABS: WHITE BLOOD COUNT 1.7 K/mm3 (4.0-10.0)
[2021-06-28 09:08] LABS: CALCIUM 8.5 mg/dL (8.5-10.1)
[2021-06-28 09:09] LABS: BLOOD UREA NITROGEN 15.5 mg/dL (7-18); MAGNESIUM 1.7 mg/dL (1.8-2.4)
[2021-06-28 09:11] LABS: CREATININE 0.8 mg/dL (0.55-1.3)
[2021-06-28 09:12] LABS: PHOSPHOROUS 3.4 mg/dL (2.5-4.9)
[2021-06-28] MEDS ORDERED: valACYclovir HCL 500 MG TABLET (FP) ONE (09:27)
[2021-06-28] MEDS: MULTIVITAMINS THER W-MINERALS COMBO TABLET (FP) PO SCH (09:33)
[2021-06-28] MEDS: ABACAVIR SULFATE 300 MG TABLET PO SCH (09:33)
[2021-06-28] MEDS: valACYclovir HCL 1000 MG TABLET PO SCH (09:33)
[2021-06-28] MEDS: DARUNAVIR 800 MG/COBICISTAT 150MG TABLET PO SCH (09:33)
[2021-06-28 10:00] VITALS: BP 100/57; PULSE 82; TEMP 98.4
[2021-06-28] MEDS ORDERED: SULFAMETHOXAZOLE/TRIMETHOPRIM 800MG/160MG D.S. TABLET PO SCH (10:00)
[2021-06-28] MEDS ORDERED: MAGNESIUM OXIDE 400 MG TABLET (FP) PO ONE (11:32)
[2021-06-28 12:01] LABS: ANISOCYTOSIS 1+; MACROCYTOSIS 0; OVALOCYTE 1+; PLATELET ESTIMATE NORMAL; TEAR DROP CELLS 1+
[2021-06-28] MEDS ORDERED: TBO-FILGRASTIM 300 MCG/0.5 ML DISP.SYRINGE SQ ONE (15:34)
[2021-06-28] MEDS ORDERED: DRONABINOL 2.5 MG CAPSULE PO SCH (17:00)
== END 2021-06-28 17:46 | disposition home or self-care (01) | DRG 974 ==
LOC: JER 13:52 → JERBED 19:27 → J6S 06-25 00:53
PROVIDERS: ADMIT Internal Medicine; ATTEND Internal Medicine
DX: J18.9 Pneumonia, unspecified organism (principal); E43 Unspecified severe protein-calorie malnutrition; B20 Human immunodeficiency virus [HIV] disease; Z68.1 Body mass index [BMI] 19.9 or less, adult; F50.00 Anorexia nervosa, unspecified; M87.859 Other osteonecrosis, unspecified femur; R64 Cachexia; D50.9 Iron deficiency anemia, unspecified; I10 Essential (primary) hypertension; F32.A Depression, unspecified; E78.5 Hyperlipidemia, unspecified; J44.9 Chronic obstructive pulmonary disease, unspecified; R29.6 Repeated falls; D72.829 Elevated white blood cell count, unspecified; M54.9 Dorsalgia, unspecified; E11.40 Type 2 diabetes mellitus with diabetic neuropathy, unspecified; R42 Dizziness and giddiness; K21.9 Gastro-esophageal reflux disease without esophagitis; F43.10 Post-traumatic stress disorder, unspecified; R00.0 Tachycardia, unspecified; Y92.098 Other place in other non-institutional residence as the place of occurrence of the external cause; K44.9 Diaphragmatic hernia without obstruction or gangrene; D63.8 Anemia in other chronic diseases classified elsewhere; M50.321 Other cervical disc degeneration at C4-C5 level; M54.12 Radiculopathy, cervical region; W17.89XA Other fall from one level to another, initial encounter; Z88.0 Allergy status to penicillin; Z91.14 Patient's other noncompliance with medication regimen
CPT/HCPCS: 36415; 70450-TC; 70551-TC; 71045-TC-FY; 72125-TC; 74177-TC; 80048; 80053; 81003; 82550; 82728; 82962; 83540; 83550; 83690; 83735; 84100; 84484; 85025; 85027; 85045; 85610; 85730; 86850; 86900; 86901; 87086; 87899; 93005; 93010; 97116-GP; 97162-GP; 99285-25; C9803; J1447; Q9967; U0003; U0005

== ENCOUNTER 2021-08-27 17:15 | Emergency (ER) | payer OTHER ==
[2021-08-27 18:06] VITALS: BP 111/70; PULSE 100; TEMP 97.2; BMI 16.2
[2021-08-27 20:33] LABS: LYMPH % 25.8 % (8-40); MCH 25.8 pg (25.7-33.7); MCHC 32.1 g/dl (32.0-36.0); MEAN CELL VOLUME 80.3 fl (80-96); MEAN PLT VOLUME 8.7 fl (7.5-11.1); NEUT % 48.2 % (42.8-82.8); PLATELET COUNT 105 10^3/uL (134-434); RBC 3.11 M/mm3 (3.60-5.2); RDW 16.8 % (11.6-15.6)
[2021-08-27 20:34] LABS: BASO % 0.3 % (0-2.0); EOS % 0.2 % (0-4.5); MONO % 25.5 % (3.8-10.2)
[2021-08-27 20:37] LABS: CALCIUM 7.9 mg/dL (8.5-10.1); PROTHROMBIN TIME (PATIENT) 11.2 SEC (9.7-13.0)
[2021-08-27 20:38] LABS: ALBUMIN 2.3 g/dl (3.4-5.0); BLOOD UREA NITROGEN 9.4 mg/dL (7-18); MAGNESIUM 1.8 mg/dL (1.8-2.4)
[2021-08-27 20:40] LABS: ACTIVATED PTT 30.8 SECONDS (25.2-36.5)
[2021-08-27 20:41] LABS: CREATININE 0.8 mg/dL (0.55-1.3)
[2021-08-27 20:43] LABS: BILIRUBIN,TOTAL 0.3 mg/dL (0.2-1); TOT PROT 6.8 g/dl (6.4-8.2)
[2021-08-27 20:54] LABS: WHITE BLOOD COUNT 1.8 K/mm3 (4.0-10.0)
[2021-08-27] MEDS ORDERED: POTASSIUM CHLORIDE TABS 20 MEQ TABLET.ER (FP) PO ONE ×2 (20:57→21:37)
[2021-08-27 21:46] LABS: ANISOCYTOSIS 2+; MACROCYTOSIS 0; OVALOCYTE 2+; PLATELET ESTIMATE DECREASED; TEAR DROP CELLS 1+
== END 2021-08-27 23:23 | disposition home or self-care (01) ==
LOC: JER 17:15
DX: D70.9 Neutropenia, unspecified (principal)
CPT/HCPCS: 36415; 71045-TC-FY; 80053; 82272; 82550; 83735; 84484; 85025; 85610; 85730; 86850; 86900; 86901; 93005; 93010; 99285-25; C9803; U0003; U0005

== ENCOUNTER 2021-10-31 21:41 | Inpatient (IN) | payer OTHER ==
[2021-10-31] MEDS ORDERED: SODIUM CHLORIDE 0.9% 500 ML INFUS.BAG IV ONE (22:33)
[2021-10-31 23:22] LABS: BASO % 0.3 % (0-2.0); HEMATOCRIT 26.2 % (32.4-45.2); HEMOGLOBIN 8.7 GM/dL (10.7-15.3); MCH 25.9 pg (25.7-33.7); MCHC 33.3 g/dl (32.0-36.0); MEAN CELL VOLUME 77.8 fl (80-96); MEAN PLT VOLUME 8.6 fl (7.5-11.1); MONO % 13.7 % (3.8-10.2); PLATELET COUNT 137 10^3/uL (134-434); RBC 3.37 M/mm3 (3.60-5.2); RDW 16.2 % (11.6-15.6); WHITE BLOOD COUNT 2.3 K/mm3 (4.0-10.0)
[2021-10-31 23:44] LABS: ALBUMIN 2.6 g/dl (3.4-5.0); BLOOD UREA NITROGEN 8.5 mg/dL (7-18); MAGNESIUM 2.1 mg/dL (1.8-2.4)
[2021-10-31 23:47] LABS: BILIRUBIN,TOTAL 0.5 mg/dL (0.2-1); CREATININE 0.8 mg/dL (0.55-1.3); PHOSPHOROUS 2.6 mg/dL (2.5-4.9); TOT PROT 8.1 g/dl (6.4-8.2)
[2021-11-01] MEDS ORDERED: POTASSIUM CHLORIDE ORAL LIQUID 20 MEQ/15 ML ONE (03:38)
[2021-11-01] MEDS: POTASSIUM CHLORIDE ORAL LIQUID 20 MEQ/15 ML PO SCH ×2 (03:49→15:33)
[2021-11-01] MEDS: SODIUM CHLORIDE 1,000 ML IV SCH ×2 (06:09→06:12)
[2021-11-01] MEDS: NYSTATIN 500,000 UNITS/5 ML SUSPENSION PO SCH ×2 (06:17→12:52)
[2021-11-01] MEDS: ENOXAPARIN NA (PORCINE) 40 MG/0.4 ML DISP.SYRIN SQ SCH (10:11)
[2021-11-01 12:42] LABS: HEMATOCRIT 25.9 % (32.4-45.2); HEMOGLOBIN 8.1 GM/dL (10.7-15.3); MCH 24.9 pg (25.7-33.7); MCHC 31.4 g/dl (32.0-36.0); MEAN CELL VOLUME 79.2 fl (80-96); MEAN PLT VOLUME 8.9 fl (7.5-11.1); PLATELET COUNT 100 10^3/uL (134-434); RBC 3.27 M/mm3 (3.60-5.2); RDW 16.2 % (11.6-15.6)
[2021-11-01 12:56] LABS: CALCIUM 8.1 mg/dL (8.5-10.1)
[2021-11-01 12:58] LABS: ALBUMIN 2.2 g/dl (3.4-5.0); BLOOD UREA NITROGEN 9.1 mg/dL (7-18); MAGNESIUM 1.8 mg/dL (1.8-2.4)
[2021-11-01 13:01] LABS: CREATININE 0.8 mg/dL (0.55-1.3); PHOSPHOROUS 1.9 mg/dL (2.5-4.9)
[2021-11-01 13:02] LABS: BILIRUBIN,TOTAL 0.2 mg/dL (0.2-1); TOT PROT 6.7 g/dl (6.4-8.2)
[2021-11-01] MEDS ORDERED: NAPH,MB-DB/K PH,MBDB POWDER PACKET PO ONE (13:35)
[2021-11-01] MEDS: GABAPENTIN 400 MG CAPSULE PO SCH ×2 (15:32→21:10)
[2021-11-01] MEDS: FLUCONAZOLE 100 MG TABLET (UD) PO SCH (16:20)
[2021-11-01] MEDS: valACYclovir HCL 500 MG TABLET (FP) PO SCH (21:10)
[2021-11-01] MEDS: ACETAMINOPHEN 325 MG TABLET (FP) PO PRN (21:10)
[2021-11-02] MEDS: GABAPENTIN 400 MG CAPSULE PO SCH ×3 (06:07→21:20)
[2021-11-02] MEDS: valACYclovir HCL 500 MG TABLET (FP) PO SCH (09:42)
[2021-11-02] MEDS: FLUCONAZOLE 100 MG TABLET (UD) PO SCH (09:43)
[2021-11-02] MEDS: CHOLESTYRAMINE/ASPARTAME 4 GM PACKET PO SCH (09:45)
[2021-11-02 10:00] LABS: HEMOGLOBIN 7.4 GM/dL (10.7-15.3); MCH 25.5 pg (25.7-33.7); MCHC 32.2 g/dl (32.0-36.0); MEAN CELL VOLUME 79.2 fl (80-96); MEAN PLT VOLUME 8.5 fl (7.5-11.1); PLATELET COUNT 93 10^3/uL (134-434); RDW 15.8 % (11.6-15.6); WHITE BLOOD COUNT 2.1 K/mm3 (4.0-10.0)
[2021-11-02] MEDS: ENOXAPARIN NA (PORCINE) 40 MG/0.4 ML DISP.SYRIN SQ SCH (10:02)
[2021-11-02 10:25] LABS: BLOOD UREA NITROGEN 15.4 mg/dL (7-18); CALCIUM 8.3 mg/dL (8.5-10.1)
[2021-11-02 10:26] LABS: ALBUMIN 2.2 g/dl (3.4-5.0); MAGNESIUM 1.7 mg/dL (1.8-2.4)
[2021-11-02 10:30] LABS: BILIRUBIN,TOTAL 0.2 mg/dL (0.2-1); CREATININE 0.8 mg/dL (0.55-1.3); PHOSPHOROUS 1.8 mg/dL (2.5-4.9); TOT PROT 6.4 g/dl (6.4-8.2)
[2021-11-02] MEDS: NYSTATIN 500,000 UNITS/5 ML SUSPENSION PO SCH ×3 (12:13→23:34)
[2021-11-02] MEDS: SODIUM CHLORIDE 1,000 ML IV SCH (17:10)
[2021-11-02] MEDS: SODIUM CHLORIDE IVPB SCH (17:11)
[2021-11-02] MEDS: ACETAMINOPHEN 325 MG TABLET (FP) PO PRN (17:11)
[2021-11-02] MEDS: ACYCLOVIR IVPB SCH (17:11)
[2021-11-02] MEDS ORDERED: CEFEPIME 1 GM in DEXTROSE 5%-WATER 100 ML IVPB SCH (19:00)
[2021-11-02] MEDS ORDERED: DEXTROSE 5%-WATER 100 ML IVPB ONE (19:28)
[2021-11-02] MEDS ORDERED: CEFEPIME HCL 1 GM VIAL (RESTRICTED TO ID) ONE (19:28)
[2021-11-02] MEDS ORDERED: SODIUM CHLORIDE 1,000 ML IV STA (22:39)
[2021-11-03] MEDS: SODIUM CHLORIDE IVPB SCH ×3 (01:57→17:02)
[2021-11-03] MEDS: ACYCLOVIR IVPB SCH ×3 (01:57→17:02)
[2021-11-03] MEDS ORDERED: SODIUM CHLORIDE 500 ML IV STA (02:18)
[2021-11-03] MEDS: SODIUM CHLORIDE 1,000 ML IV SCH (04:20)
[2021-11-03] MEDS ORDERED: DEXTROSE 5%-WATER 100 ML IVPB ONE ×3 (05:14→20:33)
[2021-11-03] MEDS ORDERED: CEFEPIME HCL 1 GM VIAL (RESTRICTED TO ID) ONE ×3 (05:14→20:33)
[2021-11-03] MEDS: CEFEPIME 1 GM in DEXTROSE 5%-WATER 100 ML IVPB SCH ×3 (05:26→22:04)
[2021-11-03] MEDS: GABAPENTIN 400 MG CAPSULE PO SCH ×4 (05:28→22:04)
[2021-11-03] MEDS: NYSTATIN 500,000 UNITS/5 ML SUSPENSION PO SCH ×3 (05:33→17:02)
[2021-11-03] MEDS: ATOVAQUONE 750 MG/5 ML (UNIT-DOSE PACKAGING) PO SCH (08:30)
[2021-11-03] MEDS: CHOLESTYRAMINE/ASPARTAME 4 GM PACKET PO SCH (09:48)
[2021-11-03] MEDS: ENOXAPARIN NA (PORCINE) 40 MG/0.4 ML DISP.SYRIN SQ SCH (09:48)
[2021-11-03] MEDS ORDERED: BENZOCAINE/MENTH/CETYLPYRD CL 1 EACH LOZENGE MM PRN (10:19)
[2021-11-03] MEDS: FLUCONAZOLE 100 MG/NS 50 ML IVPB SCH (12:08)
[2021-11-03 12:30] LABS: MCH 25.5 pg (25.7-33.7); MEAN CELL VOLUME 79.7 fl (80-96); MEAN PLT VOLUME 8.2 fl (7.5-11.1); PLATELET COUNT 80 10^3/uL (134-434); RBC 2.76 M/mm3 (3.60-5.2); WHITE BLOOD COUNT 2.1 K/mm3 (4.0-10.0)
[2021-11-03 12:48] LABS: CHLORIDE 104 mmol/L (98-107); SODIUM 139 mmol/L (136-145)
[2021-11-03 12:50] LABS: ANION GAP 3 MMOL/L (8-16); CALCIUM 7.8 mg/dL (8.5-10.1); CO2 32 mmol/L (21-32); GLUCOSE,RANDOM 91 mg/dL (74-106); MAGNESIUM 1.6 mg/dL (1.8-2.4)
[2021-11-03 12:53] LABS: CREATININE 0.6 mg/dL (0.55-1.3)
[2021-11-03 12:54] LABS: PHOSPHOROUS 0.8 mg/dL (2.5-4.9)
[2021-11-03] MEDS: NAPH,MB-DB/K PH,MBDB POWDER PACKET PO SCH ×2 (13:38→22:06)
[2021-11-03] MEDS ORDERED: SODIUM PHOSPHATE - 30 MM in DEXTROSE 5%-WATER - 500 ML IVPB ONE (14:00)
[2021-11-03] MEDS ORDERED: MAGNESIUM OXIDE 400 MG TABLET (FP) PO ONE ×2 (18:25→22:15)
[2021-11-03] MEDS: ACETAMINOPHEN 325 MG TABLET (FP) PO PRN (22:32)
[2021-11-04] MEDS: NYSTATIN 500,000 UNITS/5 ML SUSPENSION PO SCH ×4 (00:12→17:31)
[2021-11-04] MEDS: SODIUM CHLORIDE IVPB SCH ×3 (02:06→17:31)
[2021-11-04] MEDS: ACYCLOVIR IVPB SCH ×3 (02:06→17:31)
[2021-11-04] MEDS ORDERED: CEFEPIME HCL 1 GM VIAL (RESTRICTED TO ID) ONE ×3 (02:57→21:32)
[2021-11-04] MEDS ORDERED: DEXTROSE 5%-WATER 100 ML IVPB ONE ×3 (02:57→21:32)
[2021-11-04] MEDS: GABAPENTIN 400 MG CAPSULE PO SCH ×4 (03:56→21:34)
[2021-11-04] MEDS: CEFEPIME 1 GM in DEXTROSE 5%-WATER 100 ML IVPB SCH ×3 (05:11→21:35)
[2021-11-04] MEDS ORDERED: SODIUM CHLORIDE 1,000 ML IV STA (05:50)
[2021-11-04] MEDS: NAPH,MB-DB/K PH,MBDB POWDER PACKET PO SCH ×2 (05:59→15:30)
[2021-11-04] MEDS ORDERED: SODIUM CHLORIDE 500 ML IV STA (07:43)
[2021-11-04] MEDS: ATOVAQUONE 750 MG/5 ML (UNIT-DOSE PACKAGING) PO SCH (08:35)
[2021-11-04] MEDS: ENOXAPARIN NA (PORCINE) 40 MG/0.4 ML DISP.SYRIN SQ SCH (10:57)
[2021-11-04] MEDS: FLUCONAZOLE 100 MG/NS 50 ML IVPB SCH (10:59)
[2021-11-04 11:17] LABS: HEMATOCRIT 20.5 % (32.4-45.2); MCH 24.9 pg (25.7-33.7); MCHC 31.1 g/dl (32.0-36.0); MEAN CELL VOLUME 80.2 fl (80-96); MEAN PLT VOLUME 8.9 fl (7.5-11.1); PLATELET COUNT 96 10^3/uL (134-434); RBC 2.56 M/mm3 (3.60-5.2); RDW 15.9 % (11.6-15.6)
[2021-11-04 11:23] LABS: WHITE BLOOD COUNT 1.5 K/mm3 (4.0-10.0)
[2021-11-04 11:25] LABS: HEMOGLOBIN 6.4 GM/dL (10.7-15.3)
[2021-11-04 11:26] LABS: ALBUMIN 1.8 g/dl (3.4-5.0); BLOOD UREA NITROGEN 17.2 mg/dL (7-18); CALCIUM 7.3 mg/dL (8.5-10.1)
[2021-11-04 11:28] LABS: MAGNESIUM 1.7 mg/dL (1.8-2.4)
[2021-11-04 11:29] LABS: CREATININE 0.6 mg/dL (0.55-1.3); PHOSPHOROUS 2.9 mg/dL (2.5-4.9)
[2021-11-04 11:31] LABS: BILIRUBIN,TOTAL 0.2 mg/dL (0.2-1); TOT PROT 5.6 g/dl (6.4-8.2)
[2021-11-04] MEDS: SODIUM CHLORIDE 1,000 ML IV SCH (12:12)
[2021-11-04] MEDS ORDERED: SODIUM CHLORIDE 1,000 ML IV SCH ×3 (13:30→15:40)
[2021-11-04] MEDS ORDERED: MAGNESIUM OXIDE 400 MG TABLET (FP) PO ONE (15:34)
[2021-11-04 15:51] VITALS: BMI 14.2
[2021-11-04] MEDS: ACETAMINOPHEN 325 MG TABLET (FP) PO PRN (18:40)
[2021-11-05 00:20] LABS: HEMOGLOBIN 7.9 GM/dL (10.7-15.3); MCH 26.5 pg (25.7-33.7); MCHC 32.8 g/dl (32.0-36.0); MEAN CELL VOLUME 80.6 fl (80-96); MEAN PLT VOLUME 8.7 fl (7.5-11.1); PLATELET COUNT 105 10^3/uL (134-434); RBC 2.98 M/mm3 (3.60-5.2); RDW 16.2 % (11.6-15.6)
[2021-11-05] MEDS: NYSTATIN 500,000 UNITS/5 ML SUSPENSION PO SCH ×4 (00:23→18:00)
[2021-11-05] MEDS: SODIUM CHLORIDE IVPB SCH ×3 (01:25→18:00)
[2021-11-05] MEDS: ACYCLOVIR IVPB SCH ×3 (01:25→18:00)
[2021-11-05] MEDS ORDERED: CEFEPIME HCL 1 GM VIAL (RESTRICTED TO ID) ONE ×3 (05:14→21:20)
[2021-11-05] MEDS ORDERED: DEXTROSE 5%-WATER 100 ML IVPB ONE ×3 (05:14→21:20)
[2021-11-05] MEDS: GABAPENTIN 400 MG CAPSULE PO SCH ×3 (05:19→21:22)
[2021-11-05] MEDS: CEFEPIME 1 GM in DEXTROSE 5%-WATER 100 ML IVPB SCH ×3 (05:19→21:22)
[2021-11-05] MEDS: ATOVAQUONE 750 MG/5 ML (UNIT-DOSE PACKAGING) PO SCH (09:37)
[2021-11-05] MEDS: ENOXAPARIN NA (PORCINE) 40 MG/0.4 ML DISP.SYRIN SQ SCH (09:37)
[2021-11-05] MEDS: FLUCONAZOLE 100 MG/NS 50 ML IVPB SCH (09:38)
[2021-11-05 10:24] LABS: HEMATOCRIT 25.5 % (32.4-45.2); HEMOGLOBIN 8.2 GM/dL (10.7-15.3); MCH 26.1 pg (25.7-33.7); MCHC 32.1 g/dl (32.0-36.0); MEAN CELL VOLUME 81.3 fl (80-96); MEAN PLT VOLUME 8.4 fl (7.5-11.1); PLATELET COUNT 108 10^3/uL (134-434); RBC 3.13 M/mm3 (3.60-5.2); RDW 15.6 % (11.6-15.6)
[2021-11-05 10:33] LABS: WHITE BLOOD COUNT 1.6 K/mm3 (4.0-10.0)
[2021-11-05 10:41] LABS: CALCIUM 7.5 mg/dL (8.5-10.1)
[2021-11-05 10:42] LABS: BLOOD UREA NITROGEN 15.5 mg/dL (7-18)
[2021-11-05 10:45] LABS: CREATININE 0.6 mg/dL (0.55-1.3)
[2021-11-05 10:46] LABS: BILIRUBIN,TOTAL 0.2 mg/dL (0.2-1); TOT PROT 5.8 g/dl (6.4-8.2)
[2021-11-05] MEDS: SODIUM CHLORIDE 1,000 ML IV SCH (14:56)
[2021-11-05] MEDS: ABACAVIR SULFATE 300 MG TABLET PO SCH (21:36)
[2021-11-05] MEDS: DARUNAVIR 800 MG/COBICISTAT 150MG TABLET PO SCH (21:37)
[2021-11-06] MEDS: NYSTATIN 500,000 UNITS/5 ML SUSPENSION PO SCH ×5 (00:10→23:51)
[2021-11-06] MEDS: ACYCLOVIR IVPB SCH ×3 (01:03→19:17)
[2021-11-06] MEDS: SODIUM CHLORIDE IVPB SCH ×3 (01:03→19:17)
[2021-11-06] MEDS ORDERED: CEFEPIME HCL 1 GM VIAL (RESTRICTED TO ID) ONE ×3 (05:05→21:34)
[2021-11-06] MEDS ORDERED: DEXTROSE 5%-WATER 100 ML IVPB ONE ×3 (05:05→21:35)
[2021-11-06] MEDS: GABAPENTIN 400 MG CAPSULE PO SCH ×3 (05:09→21:43)
[2021-11-06] MEDS: CEFEPIME 1 GM in DEXTROSE 5%-WATER 100 ML IVPB SCH ×3 (05:09→21:43)
[2021-11-06 10:03] LABS: HEMATOCRIT 23.2 % (32.4-45.2); HEMOGLOBIN 7.5 GM/dL (10.7-15.3); MCH 26.5 pg (25.7-33.7); MCHC 32.5 g/dl (32.0-36.0); MEAN CELL VOLUME 81.5 fl (80-96); MEAN PLT VOLUME 7.9 fl (7.5-11.1); PLATELET COUNT 114 10^3/uL (134-434); RBC 2.84 M/mm3 (3.60-5.2); RDW 16.3 % (11.6-15.6)
[2021-11-06 10:08] LABS: WHITE BLOOD COUNT 1.4 K/mm3 (4.0-10.0)
[2021-11-06 11:02] LABS: BILIRUBIN,TOTAL 0.6 mg/dL (0.2-1)
[2021-11-06 11:04] LABS: ALBUMIN 1.8 g/dl (3.4-5.0); CALCIUM 7.3 mg/dL (8.5-10.1); CREATININE 0.6 mg/dL (0.55-1.3); MAGNESIUM 1.9 mg/dL (1.8-2.4); PHOSPHOROUS 2.9 mg/dL (2.5-4.9); TOT PROT 5.5 g/dl (6.4-8.2)
[2021-11-06] MEDS: ENOXAPARIN NA (PORCINE) 40 MG/0.4 ML DISP.SYRIN SQ SCH (11:07)
[2021-11-06] MEDS: ATOVAQUONE 750 MG/5 ML (UNIT-DOSE PACKAGING) PO SCH (12:07)
[2021-11-06] MEDS: lamiVUDine 150 MG TABLET PO SCH (12:08)
[2021-11-06] MEDS: DARUNAVIR 800 MG/COBICISTAT 150MG TABLET PO SCH (12:08)
[2021-11-06] MEDS: ABACAVIR SULFATE 300 MG TABLET PO SCH (12:08)
[2021-11-06] MEDS: FLUCONAZOLE 100 MG/NS 50 ML IVPB SCH (12:09)
[2021-11-06] MEDS: ACETAMINOPHEN 325 MG TABLET (FP) PO PRN (14:39)
[2021-11-06] MEDS: SODIUM CHLORIDE 1,000 ML IV SCH (14:43)
[2021-11-07] MEDS: ACYCLOVIR IVPB SCH ×3 (02:59→17:23)
[2021-11-07] MEDS: SODIUM CHLORIDE IVPB SCH ×3 (02:59→17:23)
[2021-11-07] MEDS: NYSTATIN 500,000 UNITS/5 ML SUSPENSION PO SCH ×3 (06:01→17:23)
[2021-11-07] MEDS: GABAPENTIN 400 MG CAPSULE PO SCH ×3 (06:01→21:11)
[2021-11-07] MEDS: DARUNAVIR 800 MG/COBICISTAT 150MG TABLET PO SCH (11:47)
[2021-11-07] MEDS: ATOVAQUONE 750 MG/5 ML (UNIT-DOSE PACKAGING) PO SCH (11:48)
[2021-11-07] MEDS: ABACAVIR SULFATE 300 MG TABLET PO SCH (11:48)
[2021-11-07] MEDS: lamiVUDine 150 MG TABLET PO SCH (11:50)
[2021-11-07] MEDS: ENOXAPARIN NA (PORCINE) 40 MG/0.4 ML DISP.SYRIN SQ SCH (11:55)
[2021-11-07 12:53] LABS: EPI CELLS 6 /uL (0-25.1); HYALINE CASTS 0 /uL (0-3.1); URINE APPEARANCE CLEAR; URINE BACTERIA 8 /uL (0-1359); URINE BILIRUBIN NEGATIVE (NEGATIVE); URINE COLOR YELLOW; URINE GLUCOSE (UA) NEGATIVE (NEGATIVE); URINE KETONE NEGATIVE (NEGATIVE); URINE LEUK ESTERASE NEGATIVE (NEGATIVE); URINE NITRITE NEGATIVE (NEGATIVE); URINE PROTEIN 1+ (NEGATIVE); URINE RBC 23 /uL (0-23.9); URINE UROBILINOGEN 0.2 mg/dL (0.2-1.0); URINE WBC 11 /uL (0-25.8)
[2021-11-07 13:12] LABS: HEMATOCRIT 22.9 % (32.4-45.2); HEMOGLOBIN 7.4 GM/dL (10.7-15.3); MCH 26.4 pg (25.7-33.7); MCHC 32.5 g/dl (32.0-36.0); MEAN CELL VOLUME 81.3 fl (80-96); MEAN PLT VOLUME 8.1 fl (7.5-11.1); PLATELET COUNT 124 10^3/uL (134-434); RBC 2.81 M/mm3 (3.60-5.2); RDW 16.6 % (11.6-15.6)
[2021-11-07 13:32] LABS: CALCIUM 7.6 mg/dL (8.5-10.1)
[2021-11-07 13:33] LABS: ALBUMIN 1.9 g/dl (3.4-5.0); BLOOD UREA NITROGEN 18.6 mg/dL (7-18); MAGNESIUM 1.9 mg/dL (1.8-2.4)
[2021-11-07 13:35] LABS: WHITE BLOOD COUNT 1.3 K/mm3 (4.0-10.0)
[2021-11-07 13:36] LABS: CREATININE 0.6 mg/dL (0.55-1.3); PHOSPHOROUS 2.8 mg/dL (2.5-4.9)
[2021-11-07 13:37] LABS: BILIRUBIN,TOTAL 0.2 mg/dL (0.2-1)
[2021-11-07 13:38] LABS: TOT PROT 5.9 g/dl (6.4-8.2)
[2021-11-07] MEDS ORDERED: CEFEPIME HCL 1 GM VIAL (RESTRICTED TO ID) ONE ×2 (14:10→21:03)
[2021-11-07] MEDS ORDERED: DEXTROSE 5%-WATER 100 ML IVPB ONE ×2 (14:10→21:03)
[2021-11-07] MEDS: ACETAMINOPHEN 325 MG TABLET (FP) PO PRN (14:14)
[2021-11-07] MEDS: CEFEPIME 1 GM in DEXTROSE 5%-WATER 100 ML IVPB SCH ×3 (14:16→21:24)
[2021-11-07] MEDS: SODIUM CHLORIDE 1,000 ML IV SCH (14:55)
[2021-11-07] MEDS: FLUCONAZOLE 100 MG/NS 50 ML IVPB SCH (16:20)
[2021-11-07 19:58] LABS: ANISOCYTOSIS 2+; MACROCYTOSIS 0; OVALOCYTE 2+; TEAR DROP CELLS 1+
[2021-11-08] MEDS: ACYCLOVIR IVPB SCH ×3 (01:00→17:23)
[2021-11-08] MEDS: NYSTATIN 500,000 UNITS/5 ML SUSPENSION PO SCH ×5 (01:00→23:31)
[2021-11-08] MEDS: SODIUM CHLORIDE IVPB SCH ×3 (01:00→17:23)
[2021-11-08] MEDS: GABAPENTIN 400 MG CAPSULE PO SCH ×3 (05:41→20:59)
[2021-11-08] MEDS ORDERED: CEFEPIME HCL 1 GM VIAL (RESTRICTED TO ID) ONE ×3 (06:11→20:32)
[2021-11-08] MEDS ORDERED: DEXTROSE 5%-WATER 100 ML IVPB ONE ×3 (06:12→20:32)
[2021-11-08] MEDS: CEFEPIME 1 GM in DEXTROSE 5%-WATER 100 ML IVPB SCH ×3 (06:15→20:59)
[2021-11-08] MEDS ORDERED: SODIUM CHLORIDE 500 ML IV STA (09:02)
[2021-11-08] MEDS: SODIUM CHLORIDE 1,000 ML IV SCH ×2 (09:26→13:53)
[2021-11-08] MEDS: ATOVAQUONE 750 MG/5 ML (UNIT-DOSE PACKAGING) PO SCH (09:39)
[2021-11-08] MEDS: DARUNAVIR 800 MG/COBICISTAT 150MG TABLET PO SCH (09:40)
[2021-11-08] MEDS: lamiVUDine 150 MG TABLET PO SCH (09:40)
[2021-11-08] MEDS: ABACAVIR SULFATE 300 MG TABLET PO SCH (09:41)
[2021-11-08 12:07] LABS: HEMATOCRIT 21.4 % (32.4-45.2); MCH 26.5 pg (25.7-33.7); MCHC 32.5 g/dl (32.0-36.0); MEAN CELL VOLUME 81.7 fl (80-96); RBC 2.62 M/mm3 (3.60-5.2); RDW 16.7 % (11.6-15.6)
[2021-11-08 12:08] LABS: MEAN PLT VOLUME 7.9 fl (7.5-11.1); PLATELET COUNT 124 10^3/uL (134-434)
[2021-11-08 12:29] LABS: ALBUMIN 1.9 g/dl (3.4-5.0)
[2021-11-08 12:30] LABS: CALCIUM 7.4 mg/dL (8.5-10.1); WHITE BLOOD COUNT 1.6 K/mm3 (4.0-10.0)
[2021-11-08 12:31] LABS: BLOOD UREA NITROGEN 21.8 mg/dL (7-18)
[2021-11-08 12:34] LABS: CREATININE 0.6 mg/dL (0.55-1.3)
[2021-11-08 12:35] LABS: BILIRUBIN,TOTAL 0.2 mg/dL (0.2-1); TOT PROT 5.6 g/dl (6.4-8.2)
[2021-11-08] MEDS: FLUCONAZOLE 100 MG/NS 50 ML IVPB SCH (12:42)
[2021-11-08 13:08] LABS: ANISOCYTOSIS 2+; MACROCYTOSIS 0
[2021-11-08] MEDS ORDERED: EPOETIN ALFA-EPBX 20,000 UNIT/ML VIAL SQ SCH (18:15)
[2021-11-08] MEDS: ACETAMINOPHEN 325 MG TABLET (FP) PO PRN (20:59)
[2021-11-08] MEDS: HEPARIN NA (PORCINE) 5,000 UNITS/ML 1ML VIAL SQ SCH (20:59)
[2021-11-09] MEDS: SODIUM CHLORIDE IVPB SCH ×2 (01:03→12:39)
[2021-11-09] MEDS: ACYCLOVIR IVPB SCH ×2 (01:03→12:39)
[2021-11-09] MEDS ORDERED: CEFEPIME HCL 1 GM VIAL (RESTRICTED TO ID) ONE ×3 (05:26→21:20)
[2021-11-09] MEDS ORDERED: DEXTROSE 5%-WATER 100 ML IVPB ONE ×3 (05:27→21:21)
[2021-11-09] MEDS: SODIUM CHLORIDE 1,000 ML IV SCH ×2 (05:29→13:58)
[2021-11-09] MEDS: GABAPENTIN 400 MG CAPSULE PO SCH ×3 (05:29→21:28)
[2021-11-09] MEDS: NYSTATIN 500,000 UNITS/5 ML SUSPENSION PO SCH ×3 (05:29→18:58)
[2021-11-09] MEDS: CEFEPIME 1 GM in DEXTROSE 5%-WATER 100 ML IVPB SCH ×3 (05:30→21:28)
[2021-11-09] MEDS: HEPARIN NA (PORCINE) 5,000 UNITS/ML 1ML VIAL SQ SCH ×3 (05:30→21:27)
[2021-11-09 09:00] LABS: HEMATOCRIT 22.6 % (32.4-45.2); HEMOGLOBIN 7.2 GM/dL (10.7-15.3); MCH 26.1 pg (25.7-33.7); MCHC 31.7 g/dl (32.0-36.0); MEAN CELL VOLUME 82.4 fl (80-96); PLATELET COUNT 151 10^3/uL (134-434); RBC 2.74 M/mm3 (3.60-5.2); RDW 16.7 % (11.6-15.6)
[2021-11-09 09:18] LABS: WHITE BLOOD COUNT 1.4 K/mm3 (4.0-10.0)
[2021-11-09 09:29] LABS: BLOOD UREA NITROGEN 23.1 mg/dL (7-18); CALCIUM 7.7 mg/dL (8.5-10.1); MAGNESIUM 2.1 mg/dL (1.8-2.4)
[2021-11-09 09:32] LABS: CREATININE 0.5 mg/dL (0.55-1.3); PHOSPHOROUS 3.6 mg/dL (2.5-4.9)
[2021-11-09 09:34] LABS: BILIRUBIN,TOTAL 0.2 mg/dL (0.2-1)
[2021-11-09 10:52] LABS: ANISOCYTOSIS 0; HELMET CELLS 0; HOWELL-JOLLY BODIES 0; MACROCYTOSIS 0; OVALOCYTE 0; ROULEAU 0; SICKELED CELLS 0; TARGET CELLS 0; TEAR DROP CELLS 0; TOXIC GRANULATION 0
[2021-11-09] MEDS: DARUNAVIR 800 MG/COBICISTAT 150MG TABLET PO SCH (11:38)
[2021-11-09] MEDS: lamiVUDine 150 MG TABLET PO SCH (11:38)
[2021-11-09] MEDS: ATOVAQUONE 750 MG/5 ML (UNIT-DOSE PACKAGING) PO SCH (11:38)
[2021-11-09] MEDS: ABACAVIR SULFATE 300 MG TABLET PO SCH (11:39)
[2021-11-09] MEDS: FLUCONAZOLE 100 MG/NS 50 ML IVPB SCH (12:38)
[2021-11-09] MEDS ORDERED: TBO-FILGRASTIM 300 MCG/0.5 ML DISP.SYRINGE SQ ONE (15:16)
[2021-11-09] MEDS: ACETAMINOPHEN 325 MG TABLET (FP) PO PRN (21:28)
[2021-11-10] MEDS: NYSTATIN 500,000 UNITS/5 ML SUSPENSION PO SCH ×5 (00:29→23:57)
[2021-11-10] MEDS: SODIUM CHLORIDE 1,000 ML IV SCH ×2 (03:36→21:38)
[2021-11-10] MEDS ORDERED: CEFEPIME HCL 1 GM VIAL (RESTRICTED TO ID) ONE ×3 (05:10→21:02)
[2021-11-10] MEDS ORDERED: DEXTROSE 5%-WATER 100 ML IVPB ONE ×3 (05:10→21:02)
[2021-11-10] MEDS: GABAPENTIN 400 MG CAPSULE PO SCH ×3 (05:23→21:38)
[2021-11-10] MEDS: CEFEPIME 1 GM in DEXTROSE 5%-WATER 100 ML IVPB SCH ×3 (05:23→23:34)
[2021-11-10] MEDS: HEPARIN NA (PORCINE) 5,000 UNITS/ML 1ML VIAL SQ SCH ×3 (05:23→21:37)
[2021-11-10 08:01] LABS: BASO % 0.2 % (0-2.0); HEMATOCRIT 22.8 % (32.4-45.2); HEMOGLOBIN 7.6 GM/dL (10.7-15.3); LYMPH % 9.3 % (8-40); MCH 27.3 pg (25.7-33.7); MCHC 33.6 g/dl (32.0-36.0); MEAN CELL VOLUME 81.2 fl (80-96); MEAN PLT VOLUME 8.2 fl (7.5-11.1); NEUT % 80.5 % (42.8-82.8); PLATELET COUNT 194 10^3/uL (134-434); RDW 17.1 % (11.6-15.6); WHITE BLOOD COUNT 9.6 K/mm3 (4.0-10.0)
[2021-11-10 08:46] LABS: ALBUMIN 2.1 g/dl (3.4-5.0); BLOOD UREA NITROGEN 21.1 mg/dL (7-18); MAGNESIUM 2.1 mg/dL (1.8-2.4)
[2021-11-10 08:49] LABS: CREATININE 0.5 mg/dL (0.55-1.3); PHOSPHOROUS 3.8 mg/dL (2.5-4.9)
[2021-11-10 08:51] LABS: BILIRUBIN,TOTAL 0.2 mg/dL (0.2-1); TOT PROT 6.5 g/dl (6.4-8.2)
[2021-11-10] MEDS: DARUNAVIR 800 MG/COBICISTAT 150MG TABLET PO SCH (09:36)
[2021-11-10] MEDS: ABACAVIR SULFATE 300 MG TABLET PO SCH (09:36)
[2021-11-10] MEDS: lamiVUDine 150 MG TABLET PO SCH (09:37)
[2021-11-10] MEDS: ATOVAQUONE 750 MG/5 ML (UNIT-DOSE PACKAGING) PO SCH (09:37)
[2021-11-10] MEDS: FLUCONAZOLE 100 MG/NS 50 ML IVPB SCH (11:39)
[2021-11-10] MEDS: LACTATED RINGERS SOLUTION 1,000 ML/1,000 ML INFUS.BAG IV SCH (17:12)
[2021-11-11] MEDS: CEFEPIME 1 GM in DEXTROSE 5%-WATER 100 ML IVPB SCH ×2 (05:47→13:32)
[2021-11-11] MEDS: HEPARIN NA (PORCINE) 5,000 UNITS/ML 1ML VIAL SQ SCH ×4 (05:47→23:14)
[2021-11-11] MEDS: GABAPENTIN 400 MG CAPSULE PO SCH ×3 (05:52→23:08)
[2021-11-11] MEDS: NYSTATIN 500,000 UNITS/5 ML SUSPENSION PO SCH ×3 (05:52→17:50)
[2021-11-11 09:33] LABS: BASO % 0.2 % (0-2.0); HEMATOCRIT 22.7 % (32.4-45.2); HEMOGLOBIN 7.3 GM/dL (10.7-15.3); LYMPH % 8.5 % (8-40); MCH 26.3 pg (25.7-33.7); MEAN CELL VOLUME 82.1 fl (80-96); MEAN PLT VOLUME 8.2 fl (7.5-11.1); MONO % 11.2 % (3.8-10.2); NEUT % 80.1 % (42.8-82.8); PLATELET COUNT 231 10^3/uL (134-434); RBC 2.76 M/mm3 (3.60-5.2); RDW 16.8 % (11.6-15.6); WHITE BLOOD COUNT 11.3 K/mm3 (4.0-10.0)
[2021-11-11 09:55] LABS: CALCIUM 8.1 mg/dL (8.5-10.1); CREATININE 0.6 mg/dL (0.55-1.3)
[2021-11-11 09:56] LABS: ALBUMIN 2.2 g/dl (3.4-5.0); BLOOD UREA NITROGEN 26.6 mg/dL (7-18)
[2021-11-11 09:57] LABS: BILIRUBIN,TOTAL 0.2 mg/dL (0.2-1); TOT PROT 6.7 g/dl (6.4-8.2)
[2021-11-11] MEDS: ABACAVIR SULFATE 300 MG TABLET PO SCH (10:38)
[2021-11-11] MEDS: DARUNAVIR 800 MG/COBICISTAT 150MG TABLET PO SCH (10:42)
[2021-11-11] MEDS: ATOVAQUONE 750 MG/5 ML (UNIT-DOSE PACKAGING) PO SCH (10:42)
[2021-11-11] MEDS: lamiVUDine 150 MG TABLET PO SCH (10:42)
[2021-11-11] MEDS: LACTATED RINGERS SOLUTION 1,000 ML/1,000 ML INFUS.BAG IV SCH (11:45)
[2021-11-11] MEDS: FLUCONAZOLE 100 MG/NS 50 ML IVPB SCH (11:46)
[2021-11-11] MEDS ORDERED: DEXTROSE 5%-WATER 100 ML IVPB ONE (13:16)
[2021-11-11] MEDS ORDERED: CEFEPIME HCL 1 GM VIAL (RESTRICTED TO ID) ONE (13:16)
[2021-11-11] MEDS: SODIUM ZIRCONIUM CYCLOSILICATE (LOKELMA) 5 GM PACKET PO SCH (13:33)
[2021-11-11] MEDS: SODIUM CHLORIDE 1,000 ML IV SCH (13:35)
[2021-11-11] MEDS: valACYclovir HCL 500 MG TABLET (FP) PO SCH (23:08)
[2021-11-12] MEDS: NYSTATIN 500,000 UNITS/5 ML SUSPENSION PO SCH ×3 (00:36→12:03)
[2021-11-12] MEDS: GABAPENTIN 400 MG CAPSULE PO SCH ×2 (07:06→15:28)
[2021-11-12] MEDS: HEPARIN NA (PORCINE) 5,000 UNITS/ML 1ML VIAL SQ SCH ×2 (07:06→15:28)
[2021-11-12] MEDS: SODIUM ZIRCONIUM CYCLOSILICATE (LOKELMA) 5 GM PACKET PO SCH ×2 (09:18→09:47)
[2021-11-12] MEDS: DARUNAVIR 800 MG/COBICISTAT 150MG TABLET PO SCH (09:19)
[2021-11-12] MEDS: valACYclovir HCL 500 MG TABLET (FP) PO SCH (09:19)
[2021-11-12] MEDS: ATOVAQUONE 750 MG/5 ML (UNIT-DOSE PACKAGING) PO SCH (09:19)
[2021-11-12] MEDS: lamiVUDine 150 MG TABLET PO SCH (09:20)
[2021-11-12] MEDS: ABACAVIR SULFATE 300 MG TABLET PO SCH (09:20)
[2021-11-12] MEDS ORDERED: FLUCONAZOLE 100 MG TABLET (UD) PO SCH (10:00)
[2021-11-12 10:19] LABS: HEMATOCRIT 21.1 % (32.4-45.2); HEMOGLOBIN 7.1 GM/dL (10.7-15.3); MCH 27.4 pg (25.7-33.7); MCHC 33.4 g/dl (32.0-36.0); MEAN CELL VOLUME 82.1 fl (80-96); MEAN PLT VOLUME 7.8 fl (7.5-11.1); PLATELET COUNT 247 10^3/uL (134-434); RBC 2.57 M/mm3 (3.60-5.2); RDW 16.7 % (11.6-15.6); WHITE BLOOD COUNT 9.7 K/mm3 (4.0-10.0)
[2021-11-12 10:26] LABS: INR 0.94 (0.83-1.09); PROTHROMBIN TIME (PATIENT) 10.8 SEC (9.7-13.0)
[2021-11-12 10:53] LABS: ALBUMIN 2.3 g/dl (3.4-5.0); BLOOD UREA NITROGEN 25.4 mg/dL (7-18); CALCIUM 7.9 mg/dL (8.5-10.1)
[2021-11-12 10:56] LABS: CREATININE 0.7 mg/dL (0.55-1.3)
[2021-11-12 10:57] LABS: BILIRUBIN,TOTAL 0.3 mg/dL (0.2-1); TOT PROT 6.8 g/dl (6.4-8.2)
[2021-11-12] MEDS: SODIUM CHLORIDE 1,000 ML IV SCH (12:04)
[2021-11-12 13:07] LABS: SARS-CoV-2 NAA Not Detected (Not Detected)
[2021-11-12 14:35] VITALS: BP 86/53; PULSE 110; TEMP 98.8
== END 2021-11-12 17:14 | DRG 974 ==
LOC: JER 21:41 → JERBED 22:29 → J5S 11-01 05:15
PROVIDERS: ADMIT Internal Medicine; ATTEND Internal Medicine
DX: B37.81 Candidal esophagitis (principal); E43 Unspecified severe protein-calorie malnutrition; B20 Human immunodeficiency virus [HIV] disease; Z68.1 Body mass index [BMI] 19.9 or less, adult; F50.00 Anorexia nervosa, unspecified; R64 Cachexia; R62.7 Adult failure to thrive; I10 Essential (primary) hypertension; E78.5 Hyperlipidemia, unspecified; E11.9 Type 2 diabetes mellitus without complications; J44.9 Chronic obstructive pulmonary disease, unspecified; K21.9 Gastro-esophageal reflux disease without esophagitis; D70.8 Other neutropenia; F17.210 Nicotine dependence, cigarettes, uncomplicated; R19.7 Diarrhea, unspecified; R50.81 Fever presenting with conditions classified elsewhere; D64.9 Anemia, unspecified; G62.9 Polyneuropathy, unspecified; K76.0 Fatty (change of) liver, not elsewhere classified; G47.00 Insomnia, unspecified; F41.8 Other specified anxiety disorders; K44.9 Diaphragmatic hernia without obstruction or gangrene; A60.00 Herpesviral infection of urogenital system, unspecified; R13.10 Dysphagia, unspecified; D35.00 Benign neoplasm of unspecified adrenal gland; R50.9 Fever, unspecified; F43.10 Post-traumatic stress disorder, unspecified; K57.90 Diverticulosis of intestine, part unspecified, without perforation or abscess without bleeding; E87.5 Hyperkalemia; Z91.14 Patient's other noncompliance with medication regimen; Z88.0 Allergy status to penicillin
CPT/HCPCS: 36415; 36430; 70553-TC; 71045-TC-FY; 74220-TC-FY; 80048; 80053; 81003; 82550; 82607; 82728; 83540; 83550; 83615; 83735; 84100; 84439; 84443; 84484; 85025; 85027; 85610; 86850; 86900; 86901; 86922; 87015; 87040; 87045; 87046; 87086; 87116; 87177; 87186; 87205; 87207; 87209; 87324; 87328; 87329; 87449; 87497; 87899; 93005; 93010; 97116-GP; 97161-GP; 99285-25; A9579; C9803; J1447; J1644; P9058; U0003; U0005

== ENCOUNTER 2022-03-04 18:39 | Inpatient (IN) | payer OTHER ==
[2022-03-04] MEDS ORDERED: SODIUM CHLORIDE 1,000 ML IV STA (22:06)
[2022-03-05 00:17] LABS: HEMATOCRIT 34.3 % (32.4-45.2); HEMOGLOBIN 11.2 GM/dL (10.7-15.3); MCH 29.5 pg (25.7-33.7); MCHC 32.6 g/dl (32.0-36.0); MEAN CELL VOLUME 90.4 fl (80-96); MEAN PLT VOLUME 8.3 fl (7.5-11.1); PLATELET COUNT 155 10^3/uL (134-434); RDW 16.1 % (11.6-15.6)
[2022-03-05 00:36] LABS: CHLORIDE 99 mmol/L (98-107); SODIUM 133 mmol/L (136-145)
[2022-03-05 00:38] LABS: CALCIUM 9.4 mg/dL (8.5-10.1)
[2022-03-05 00:39] LABS: ALBUMIN 3.6 g/dl (3.4-5.0); ANION GAP 11 MMOL/L (8-16); BLOOD UREA NITROGEN 36.5 mg/dL (7-18); CO2 24 mmol/L (21-32); GLUCOSE,RANDOM 78 mg/dL (74-106); INR 1.14 (0.83-1.09); PROTHROMBIN TIME (PATIENT) 13.1 SEC (9.7-13.0); WHITE BLOOD COUNT 1.6 K/mm3 (4.0-10.0)
[2022-03-05 00:42] LABS: ACTIVATED PTT 37.2 SECONDS (25.2-36.5); CREATININE 1.6 mg/dL (0.55-1.3); SGOT/AST 148 U/L (15-37); SGPT/ALT 83 U/L (13-61)
[2022-03-05 00:43] LABS: TOT PROT 9.9 g/dl (6.4-8.2)
[2022-03-05 00:44] LABS: BILIRUBIN,TOTAL 0.3 mg/dL (0.2-1)
[2022-03-05 00:45] LABS: ALK PHOS 142 U/L (45-117)
[2022-03-05 03:42] LABS: ANISOCYTOSIS 1+; MACROCYTOSIS 1+
[2022-03-05] MEDS: SODIUM CHLORIDE 1,000 ML IV SCH ×3 (06:49→21:59)
[2022-03-05] MEDS ORDERED: oxyCODONE HCL 5 MG TABLET ONE ×2 (07:44→15:07)
[2022-03-05] MEDS: oxyCODONE HCL 5 MG TABLET PO PRN ×3 (07:46→21:12)
[2022-03-05 08:42] LABS: ALBUMIN 3.2 g/dl (3.4-5.0); BLOOD UREA NITROGEN 31.7 mg/dL (7-18); MAGNESIUM 1.6 mg/dL (1.8-2.4)
[2022-03-05 08:45] LABS: CREATININE 1.3 mg/dL (0.55-1.3); PHOSPHOROUS 3.9 mg/dL (2.5-4.9)
[2022-03-05 08:46] LABS: TOT PROT 8.9 g/dl (6.4-8.2)
[2022-03-05 08:47] LABS: BILIRUBIN,TOTAL 0.3 mg/dL (0.2-1)
[2022-03-05] MEDS ORDERED: MAGNESIUM SULF 50% (8.12 MEQ/2 ML-1 GM VIAL) IVPB ONE (09:45)
[2022-03-05] MEDS ORDERED: VANCOMYCIN 1 GM in D5W (PRE-DOCKED) 1,000 MG/250 ML IVPB SCH (10:00)
[2022-03-05] MEDS ORDERED: VANCOMYCIN 1 GRAM (PRE-DOCKED) 1,000 MG/250 ML BAG IVPB SCH (10:00)
[2022-03-05] MEDS ORDERED: PATIENT'S OWN MEDICATION (NON-FORMULARY) (Abacavir Sulfate/Lamivudine [Abacavir-Lamivudine PO SCH (10:00)
[2022-03-05] MEDS ORDERED: VANCOMYCIN 1 GRAM (PRE-DOCKED) 1,000 MG/250 ML BAG IVPB ONE (10:14)
[2022-03-05] MEDS ORDERED: MAGNESIUM SULFATE IN WATER 2 GM/50 ML IVPB IVPB ONE ×2 (10:15→16:15)
[2022-03-05] MEDS: DARUNAVIR 800 MG/COBICISTAT 150MG TABLET PO SCH (10:30)
[2022-03-05] MEDS: ABACAVIR SULFATE 300 MG TABLET PO SCH (10:30)
[2022-03-05] MEDS: lamiVUDine 150 MG TABLET PO SCH (10:30)
[2022-03-05 11:26] LABS: EOS % 0.1 % (0-4.5); HEMATOCRIT 33.5 % (32.4-45.2); HEMOGLOBIN 10.8 GM/dL (10.7-15.3); LYMPH % 45.8 % (8-40); MCH 29.6 pg (25.7-33.7); MCHC 32.3 g/dl (32.0-36.0); MEAN CELL VOLUME 91.8 fl (80-96); MEAN PLT VOLUME 8.2 fl (7.5-11.1); MONO % 12.7 % (3.8-10.2); NEUT % 40.4 % (42.8-82.8); PLATELET COUNT 135 10^3/uL (134-434); RBC 3.64 M/mm3 (3.60-5.2); RDW 16.7 % (11.6-15.6)
[2022-03-05 11:30] LABS: WHITE BLOOD COUNT 1.3 K/mm3 (4.0-10.0)
[2022-03-05 11:32] LABS: INR 1.1 (0.83-1.09); PROTHROMBIN TIME (PATIENT) 12.7 SEC (9.7-13.0)
[2022-03-05 11:34] LABS: ACTIVATED PTT 39.8 SECONDS (25.2-36.5)
[2022-03-05] MEDS: VANCOMYCIN 1 GRAM (PRE-DOCKED) 1,000 MG/250 ML BAG IVPB SCH (11:36)
[2022-03-05 13:01] LABS: ANISOCYTOSIS 1+; MACROCYTOSIS 0
[2022-03-05] MEDS ORDERED: MAGNESIUM OXIDE 400 MG TABLET (FP) PO ONE (16:03)
[2022-03-05 16:53] VITALS: BMI 22.0
[2022-03-05] MEDS ORDERED: oxyCODONE HCL 5 MG TABLET PO ONE (20:20)
[2022-03-05] MEDS: MELATONIN 5 MG TABLETS PO SCH (21:14)
[2022-03-05] MEDS: MINERAL OIL/PET HY-PHL TOPICAL OINTMENT 454 GM JAR TP SCH (21:15)
[2022-03-06] MEDS ORDERED: ACETAMINOPHEN 500 MG TABLET (FP) PO ONE (00:28)
[2022-03-06] MEDS: oxyCODONE HCL 5 MG TABLET PO PRN ×3 (02:17→20:41)
[2022-03-06] MEDS: SODIUM CHLORIDE 1,000 ML IV SCH ×3 (07:55→11:39)
[2022-03-06 08:18] LABS: HEMATOCRIT 32.5 % (32.4-45.2); HEMOGLOBIN 10.4 GM/dL (10.7-15.3); MCH 29.3 pg (25.7-33.7); MCHC 32.1 g/dl (32.0-36.0); MEAN CELL VOLUME 91.3 fl (80-96); MEAN PLT VOLUME 8.3 fl (7.5-11.1); RBC 3.56 M/mm3 (3.60-5.2)
[2022-03-06 08:52] LABS: ALBUMIN 2.9 g/dl (3.4-5.0); BILIRUBIN,TOTAL 0.3 mg/dL (0.2-1); CALCIUM 8.5 mg/dL (8.5-10.1); CREATININE 1.3 mg/dL (0.55-1.3); MAGNESIUM 2.3 mg/dL (1.8-2.4); TOT PROT 7.9 g/dl (6.4-8.2)
[2022-03-06 08:57] LABS: WHITE BLOOD COUNT 1.8 K/mm3 (4.0-10.0)
[2022-03-06] MEDS: ABACAVIR SULFATE 300 MG TABLET PO SCH (10:03)
[2022-03-06] MEDS: DARUNAVIR 800 MG/COBICISTAT 150MG TABLET PO SCH (10:03)
[2022-03-06] MEDS: lamiVUDine 150 MG TABLET PO SCH (10:05)
[2022-03-06] MEDS: MINERAL OIL/PET HY-PHL TOPICAL OINTMENT 454 GM JAR TP SCH ×2 (10:07→22:09)
[2022-03-06] MEDS: VANCOMYCIN 1 GRAM (PRE-DOCKED) 1,000 MG/250 ML BAG IVPB SCH (11:32)
[2022-03-06 11:57] LABS: PLATELET COUNT 102 10^3/uL (134-434)
[2022-03-06 19:22] LABS: URIC ACID 11.2 mg/dL (2.6-7.2)
[2022-03-06] MEDS: MELATONIN 5 MG TABLETS PO SCH (22:08)
[2022-03-06] MEDS: HEPARIN NA (PORCINE) 5,000 UNITS/ML 1ML VIAL SQ SCH (22:09)
[2022-03-07] MEDS ORDERED: predniSONE 20 MG TABLET (UD) PO ONE (00:07)
[2022-03-07] MEDS: SODIUM CHLORIDE 1,000 ML IV SCH (01:12)
[2022-03-07] MEDS: oxyCODONE HCL 5 MG TABLET PO PRN ×3 (05:39→22:37)
[2022-03-07] MEDS: HEPARIN NA (PORCINE) 5,000 UNITS/ML 1ML VIAL SQ SCH ×4 (05:40→22:38)
[2022-03-07] MEDS: COD LIVER OIL/ZINC OXIDE PASTE 56 GM TUBE TP PRN (05:55)
[2022-03-07 07:16] LABS: HEMOGLOBIN 10.3 GM/dL (10.7-15.3); MCH 29.2 pg (25.7-33.7); MCHC 32.3 g/dl (32.0-36.0); MEAN CELL VOLUME 90.6 fl (80-96); MEAN PLT VOLUME 8.5 fl (7.5-11.1); PLATELET COUNT 112 10^3/uL (134-434); RBC 3.53 M/mm3 (3.60-5.2); RDW 16.5 % (11.6-15.6)
[2022-03-07 07:32] LABS: ALBUMIN 2.8 g/dl (3.4-5.0)
[2022-03-07 07:33] LABS: BLOOD UREA NITROGEN 23.8 mg/dL (7-18)
[2022-03-07 07:34] LABS: CALCIUM 8.2 mg/dL (8.5-10.1)
[2022-03-07 07:35] LABS: CREATININE 1.2 mg/dL (0.55-1.3)
[2022-03-07 07:37] LABS: BILIRUBIN,TOTAL 0.2 mg/dL (0.2-1)
[2022-03-07 07:43] LABS: WHITE BLOOD COUNT 1.4 K/mm3 (4.0-10.0)
[2022-03-07 10:16] LABS: ANISOCYTOSIS 1+; MACROCYTOSIS 0; OVALOCYTE 2+; TEAR DROP CELLS 1+
[2022-03-07] MEDS: MINERAL OIL/PET HY-PHL TOPICAL OINTMENT 454 GM JAR TP SCH ×2 (10:50→22:39)
[2022-03-07] MEDS: lamiVUDine 150 MG TABLET PO SCH (10:51)
[2022-03-07] MEDS: DARUNAVIR 800 MG/COBICISTAT 150MG TABLET PO SCH (10:51)
[2022-03-07] MEDS: ABACAVIR SULFATE 300 MG TABLET PO SCH (10:51)
[2022-03-07] MEDS: GABAPENTIN 400 MG CAPSULE PO SCH ×2 (14:03→22:37)
[2022-03-07] MEDS: VANCOMYCIN 1 GRAM (PRE-DOCKED) 1,000 MG/250 ML BAG IVPB SCH (14:03)
[2022-03-07] MEDS: MELATONIN 5 MG TABLETS PO SCH (22:38)
[2022-03-08] MEDS: COD LIVER OIL/ZINC OXIDE PASTE 56 GM TUBE TP PRN (01:20)
[2022-03-08] MEDS: GABAPENTIN 400 MG CAPSULE PO SCH ×4 (06:03→21:42)
[2022-03-08] MEDS: HEPARIN NA (PORCINE) 5,000 UNITS/ML 1ML VIAL SQ SCH ×3 (06:05→21:43)
[2022-03-08] MEDS ORDERED: TRIAMCINOLONE ACET 40MG/1ML VIAL IM ONE (06:56)
[2022-03-08] MEDS ORDERED: LIDOCAINE HCL 2% (20ML MULTI-DOSE VIAL) INF ONE (06:57)
[2022-03-08] MEDS: oxyCODONE HCL 5 MG TABLET PO PRN (07:14)
[2022-03-08 08:52] LABS: HEMATOCRIT 33.1 % (32.4-45.2); HEMOGLOBIN 10.8 GM/dL (10.7-15.3); MCHC 32.5 g/dl (32.0-36.0); MEAN CELL VOLUME 89.3 fl (80-96); MEAN PLT VOLUME 7.9 fl (7.5-11.1); PLATELET COUNT 133 10^3/uL (134-434); RBC 3.71 M/mm3 (3.60-5.2); RDW 16.6 % (11.6-15.6)
[2022-03-08 09:07] LABS: CALCIUM 8.9 mg/dL (8.5-10.1)
[2022-03-08 09:08] LABS: ALBUMIN 3.2 g/dl (3.4-5.0); BLOOD UREA NITROGEN 22.5 mg/dL (7-18)
[2022-03-08 09:12] LABS: BILIRUBIN,TOTAL 0.3 mg/dL (0.2-1); TOT PROT 8.7 g/dl (6.4-8.2)
[2022-03-08 09:17] LABS: WHITE BLOOD COUNT 1.5 K/mm3 (4.0-10.0)
[2022-03-08] MEDS: MINERAL OIL/PET HY-PHL TOPICAL OINTMENT 454 GM JAR TP SCH ×2 (09:57→21:43)
[2022-03-08] MEDS: lamiVUDine 150 MG TABLET PO SCH (09:57)
[2022-03-08] MEDS: DARUNAVIR 800 MG/COBICISTAT 150MG TABLET PO SCH (09:57)
[2022-03-08] MEDS: ABACAVIR SULFATE 300 MG TABLET PO SCH (09:57)
[2022-03-08 10:38] LABS: ANISOCYTOSIS 1+; MACROCYTOSIS 0; PLATELET ESTIMATE NORMAL
[2022-03-08] MEDS: VANCOMYCIN 1 GRAM (PRE-DOCKED) 1,000 MG/250 ML BAG IVPB SCH (13:22)
[2022-03-08 16:52] LABS: EPI CELLS 5 /uL (0-25.1); HYALINE CASTS 0 /uL (0-3.1); URINE APPEARANCE CLEAR; URINE BACTERIA 6 /uL (0-1359); URINE BILIRUBIN NEGATIVE (NEGATIVE); URINE COLOR YELLOW; URINE GLUCOSE (UA) NEGATIVE (NEGATIVE); URINE KETONE NEGATIVE (NEGATIVE); URINE LEUK ESTERASE NEGATIVE (NEGATIVE); URINE NITRITE NEGATIVE (NEGATIVE); URINE PROTEIN 1+ (NEGATIVE); URINE RBC 32 /uL (0-23.9); URINE UROBILINOGEN 0.2 mg/dL (0.2-1.0); URINE WBC 6 /uL (0-25.8)
[2022-03-08] MEDS: MELATONIN 5 MG TABLETS PO SCH (21:42)
[2022-03-09] MEDS: oxyCODONE HCL 5 MG TABLET PO PRN ×3 (01:38→21:15)
[2022-03-09] MEDS: GABAPENTIN 400 MG CAPSULE PO SCH ×3 (06:15→21:15)
[2022-03-09] MEDS: HEPARIN NA (PORCINE) 5,000 UNITS/ML 1ML VIAL SQ SCH ×3 (06:15→21:20)
[2022-03-09] MEDS: lamiVUDine 150 MG TABLET PO SCH (09:53)
[2022-03-09] MEDS: DARUNAVIR 800 MG/COBICISTAT 150MG TABLET PO SCH (09:54)
[2022-03-09] MEDS: ABACAVIR SULFATE 300 MG TABLET PO SCH (09:54)
[2022-03-09] MEDS: MINERAL OIL/PET HY-PHL TOPICAL OINTMENT 454 GM JAR TP SCH ×2 (09:55→21:16)
[2022-03-09 10:06] LABS: RBC 3.68 M/mm3 (3.60-5.2)
[2022-03-09 10:07] LABS: HEMOGLOBIN 10.8 GM/dL (10.7-15.3); MCH 29.5 pg (25.7-33.7); MCHC 32.8 g/dl (32.0-36.0); MEAN CELL VOLUME 89.8 fl (80-96); MEAN PLT VOLUME 8.6 fl (7.5-11.1); PLATELET COUNT 153 10^3/uL (134-434); RDW 16.6 % (11.6-15.6)
[2022-03-09 10:36] LABS: CALCIUM 9.3 mg/dL (8.5-10.1)
[2022-03-09 10:37] LABS: ALBUMIN 3.2 g/dl (3.4-5.0); BLOOD UREA NITROGEN 34.6 mg/dL (7-18)
[2022-03-09 10:42] LABS: BILIRUBIN,TOTAL 0.3 mg/dL (0.2-1); TOT PROT 8.8 g/dl (6.4-8.2)
[2022-03-09 10:57] LABS: WHITE BLOOD COUNT 1.7 K/mm3 (4.0-10.0)
[2022-03-09 11:24] LABS: ANISOCYTOSIS 1+; MACROCYTOSIS 0; PLATELET ESTIMATE DECREASED
[2022-03-09] MEDS: VANCOMYCIN 1 GRAM (PRE-DOCKED) 1,000 MG/250 ML BAG IVPB SCH (13:15)
[2022-03-09] MEDS: predniSONE 20 MG TABLET (UD) PO SCH (21:15)
[2022-03-09] MEDS: MELATONIN 5 MG TABLETS PO SCH (21:15)
[2022-03-10] MEDS: HEPARIN NA (PORCINE) 5,000 UNITS/ML 1ML VIAL SQ SCH ×3 (05:34→21:47)
[2022-03-10] MEDS: GABAPENTIN 400 MG CAPSULE PO SCH ×3 (05:35→21:45)
[2022-03-10] MEDS: oxyCODONE HCL 5 MG TABLET PO PRN ×3 (05:38→21:44)
[2022-03-10 09:46] LABS: HEMATOCRIT 32.9 % (32.4-45.2); HEMOGLOBIN 10.9 GM/dL (10.7-15.3); MCH 29.8 pg (25.7-33.7); MCHC 33.1 g/dl (32.0-36.0); MEAN CELL VOLUME 89.9 fl (80-96); MEAN PLT VOLUME 8.6 fl (7.5-11.1); PLATELET COUNT 191 10^3/uL (134-434); RBC 3.66 M/mm3 (3.60-5.2); RDW 16.6 % (11.6-15.6); WHITE BLOOD COUNT 2.8 K/mm3 (4.0-10.0)
[2022-03-10 10:11] LABS: CALCIUM 8.9 mg/dL (8.5-10.1)
[2022-03-10 10:12] LABS: ALBUMIN 3.2 g/dl (3.4-5.0); BLOOD UREA NITROGEN 40.6 mg/dL (7-18)
[2022-03-10 10:17] LABS: BILIRUBIN,TOTAL 0.4 mg/dL (0.2-1); TOT PROT 8.8 g/dl (6.4-8.2)
[2022-03-10] MEDS: MINERAL OIL/PET HY-PHL TOPICAL OINTMENT 454 GM JAR TP SCH ×2 (10:38→21:43)
[2022-03-10] MEDS: ABACAVIR SULFATE 300 MG TABLET PO SCH (10:39)
[2022-03-10] MEDS: predniSONE 20 MG TABLET (UD) PO SCH (10:39)
[2022-03-10] MEDS: DARUNAVIR 800 MG/COBICISTAT 150MG TABLET PO SCH (10:39)
[2022-03-10 11:17] LABS: ANISOCYTOSIS 0; HELMET CELLS 0; HOWELL-JOLLY BODIES 0; MACROCYTOSIS 0; OVALOCYTE 0; ROULEAU 0; SICKELED CELLS 0; TARGET CELLS 0; TEAR DROP CELLS 0; TOXIC GRANULATION 0
[2022-03-10] MEDS: lamiVUDine 150 MG TABLET PO SCH (12:32)
[2022-03-10] MEDS: VANCOMYCIN 1 GRAM (PRE-DOCKED) 1,000 MG/250 ML BAG IVPB SCH (12:32)
[2022-03-10] MEDS ORDERED: COLCHICINE 0.6 MG CAP PO ONE ×2 (16:50→18:00)
[2022-03-10] MEDS: MELATONIN 5 MG TABLETS PO SCH (21:44)
[2022-03-11] MEDS: GABAPENTIN 400 MG CAPSULE PO SCH ×2 (06:11→13:55)
[2022-03-11] MEDS: HEPARIN NA (PORCINE) 5,000 UNITS/ML 1ML VIAL SQ SCH ×3 (06:11→21:49)
[2022-03-11] MEDS: oxyCODONE HCL 5 MG TABLET PO PRN (06:18)
[2022-03-11] MEDS: lamiVUDine 150 MG TABLET PO SCH (11:32)
[2022-03-11] MEDS: DARUNAVIR 800 MG/COBICISTAT 150MG TABLET PO SCH (11:32)
[2022-03-11] MEDS: MINERAL OIL/PET HY-PHL TOPICAL OINTMENT 454 GM JAR TP SCH ×2 (11:33→21:49)
[2022-03-11] MEDS: ABACAVIR SULFATE 300 MG TABLET PO SCH (11:33)
[2022-03-11] MEDS: predniSONE 20 MG TABLET (UD) PO SCH (11:33)
[2022-03-11] MEDS: VANCOMYCIN 1 GRAM (PRE-DOCKED) 1,000 MG/250 ML BAG IVPB SCH ×2 (11:35→15:27)
[2022-03-11] MEDS: COD LIVER OIL/ZINC OXIDE PASTE 56 GM TUBE TP PRN (21:48)
[2022-03-11] MEDS: GABAPENTIN 300 MG CAPSULE PO SCH (21:49)
[2022-03-11] MEDS: MELATONIN 5 MG TABLETS PO SCH (21:49)
[2022-03-12] MEDS: oxyCODONE HCL 5 MG TABLET PO PRN ×2 (00:48→09:37)
[2022-03-12] MEDS: GABAPENTIN 300 MG CAPSULE PO SCH ×3 (06:19→22:01)
[2022-03-12] MEDS: HEPARIN NA (PORCINE) 5,000 UNITS/ML 1ML VIAL SQ SCH ×3 (06:19→22:02)
[2022-03-12 08:53] LABS: HEMATOCRIT 34.4 % (32.4-45.2); HEMOGLOBIN 11.3 GM/dL (10.7-15.3); MCH 29.5 pg (25.7-33.7); MCHC 32.7 g/dl (32.0-36.0); MEAN CELL VOLUME 90.1 fl (80-96); MEAN PLT VOLUME 8.4 fl (7.5-11.1); PLATELET COUNT 259 10^3/uL (134-434); RBC 3.82 M/mm3 (3.60-5.2); RDW 16.5 % (11.6-15.6); WHITE BLOOD COUNT 4.7 K/mm3 (4.0-10.0)
[2022-03-12 09:14] LABS: CALCIUM 8.4 mg/dL (8.5-10.1)
[2022-03-12 09:17] LABS: TOT PROT 8.4 g/dl (6.4-8.2)
[2022-03-12 09:19] LABS: BILIRUBIN,TOTAL 0.3 mg/dL (0.2-1)
[2022-03-12] MEDS: predniSONE 20 MG TABLET (UD) PO SCH (09:36)
[2022-03-12] MEDS: DARUNAVIR 800 MG/COBICISTAT 150MG TABLET PO SCH (09:36)
[2022-03-12] MEDS: lamiVUDine 150 MG TABLET PO SCH (09:36)
[2022-03-12] MEDS: MINERAL OIL/PET HY-PHL TOPICAL OINTMENT 454 GM JAR TP SCH ×2 (09:36→22:02)
[2022-03-12] MEDS: ABACAVIR SULFATE 300 MG TABLET PO SCH (16:59)
[2022-03-12] MEDS: MELATONIN 5 MG TABLETS PO SCH (22:01)
[2022-03-13] MEDS: oxyCODONE HCL 5 MG TABLET PO PRN ×3 (05:56→21:20)
[2022-03-13] MEDS: GABAPENTIN 300 MG CAPSULE PO SCH ×3 (05:57→21:19)
[2022-03-13] MEDS: HEPARIN NA (PORCINE) 5,000 UNITS/ML 1ML VIAL SQ SCH ×3 (05:58→21:19)
[2022-03-13 08:32] LABS: HEMATOCRIT 34.8 % (32.4-45.2); HEMOGLOBIN 11.4 GM/dL (10.7-15.3); MCH 29.6 pg (25.7-33.7); MCHC 32.9 g/dl (32.0-36.0); MEAN CELL VOLUME 89.9 fl (80-96); MEAN PLT VOLUME 8.1 fl (7.5-11.1); PLATELET COUNT 285 10^3/uL (134-434); RBC 3.87 M/mm3 (3.60-5.2); RDW 16.8 % (11.6-15.6); WHITE BLOOD COUNT 7.1 K/mm3 (4.0-10.0)
[2022-03-13 08:52] LABS: CALCIUM 8.8 mg/dL (8.5-10.1)
[2022-03-13 08:53] LABS: ALBUMIN 3.1 g/dl (3.4-5.0)
[2022-03-13 08:57] LABS: BILIRUBIN,TOTAL 0.3 mg/dL (0.2-1); TOT PROT 8.3 g/dl (6.4-8.2)
[2022-03-13] MEDS: DARUNAVIR 800 MG/COBICISTAT 150MG TABLET PO SCH (10:37)
[2022-03-13] MEDS: predniSONE 20 MG TABLET (UD) PO SCH (10:37)
[2022-03-13] MEDS: MINERAL OIL/PET HY-PHL TOPICAL OINTMENT 454 GM JAR TP SCH ×2 (10:37→21:18)
[2022-03-13] MEDS: lamiVUDine 150 MG TABLET PO SCH (10:38)
[2022-03-13] MEDS: ABACAVIR SULFATE 300 MG TABLET PO SCH (10:39)
[2022-03-13] MEDS: MELATONIN 5 MG TABLETS PO SCH (21:20)
[2022-03-14] MEDS: oxyCODONE HCL 5 MG TABLET PO PRN ×3 (01:58→21:53)
[2022-03-14] MEDS: HEPARIN NA (PORCINE) 5,000 UNITS/ML 1ML VIAL SQ SCH ×3 (05:49→21:53)
[2022-03-14] MEDS: GABAPENTIN 300 MG CAPSULE PO SCH ×3 (05:55→21:53)
[2022-03-14] MEDS: predniSONE 20 MG TABLET (UD) PO SCH (10:01)
[2022-03-14] MEDS: MINERAL OIL/PET HY-PHL TOPICAL OINTMENT 454 GM JAR TP SCH ×3 (10:01→21:57)
[2022-03-14] MEDS: DARUNAVIR 800 MG/COBICISTAT 150MG TABLET PO SCH (10:02)
[2022-03-14] MEDS: ABACAVIR SULFATE 300 MG TABLET PO SCH (10:02)
[2022-03-14] MEDS: lamiVUDine 150 MG TABLET PO SCH (10:02)
[2022-03-14 11:04] LABS: HEMATOCRIT 35.1 % (32.4-45.2); HEMOGLOBIN 11.5 GM/dL (10.7-15.3); MCH 29.5 pg (25.7-33.7); MCHC 32.6 g/dl (32.0-36.0); MEAN CELL VOLUME 90.5 fl (80-96); MEAN PLT VOLUME 8.3 fl (7.5-11.1); PLATELET COUNT 302 10^3/uL (134-434); RBC 3.88 M/mm3 (3.60-5.2); RDW 16.6 % (11.6-15.6); WHITE BLOOD COUNT 8.9 K/mm3 (4.0-10.0)
[2022-03-14 11:28] LABS: ALBUMIN 3.2 g/dl (3.4-5.0); BLOOD UREA NITROGEN 35.2 mg/dL (7-18); CALCIUM 8.8 mg/dL (8.5-10.1)
[2022-03-14 11:33] LABS: BILIRUBIN,TOTAL 0.2 mg/dL (0.2-1); TOT PROT 8.2 g/dl (6.4-8.2)
[2022-03-14] MEDS: MELATONIN 5 MG TABLETS PO SCH (21:53)
[2022-03-14] MEDS: NYSTATIN 500,000 UNITS/5 ML SUSPENSION PO SCH (23:13)
[2022-03-14] MEDS: BENZOCAINE/MENTH/CETYLPYRD CL 1 EACH LOZENGE MM PRN (23:13)
[2022-03-15] MEDS: HEPARIN NA (PORCINE) 5,000 UNITS/ML 1ML VIAL SQ SCH (05:50)
[2022-03-15] MEDS: GABAPENTIN 300 MG CAPSULE PO SCH (05:50)
[2022-03-15] MEDS: NYSTATIN 500,000 UNITS/5 ML SUSPENSION PO SCH (05:50)
[2022-03-15] MEDS: BENZOCAINE/MENTH/CETYLPYRD CL 1 EACH LOZENGE MM PRN ×2 (05:51→09:07)
[2022-03-15] MEDS: predniSONE 20 MG TABLET (UD) PO SCH (09:07)
[2022-03-15] MEDS: DARUNAVIR 800 MG/COBICISTAT 150MG TABLET PO SCH (09:07)
[2022-03-15] MEDS: oxyCODONE HCL 5 MG TABLET PO PRN (09:08)
[2022-03-15] MEDS: ABACAVIR SULFATE 300 MG TABLET PO SCH (09:08)
[2022-03-15] MEDS: lamiVUDine 150 MG TABLET PO SCH (09:08)
[2022-03-15] MEDS: MINERAL OIL/PET HY-PHL TOPICAL OINTMENT 454 GM JAR TP SCH (09:09)
[2022-03-15] MEDS: COD LIVER OIL/ZINC OXIDE PASTE 56 GM TUBE TP PRN (09:09)
[2022-03-15 09:13] VITALS: BP 136/80; PULSE 81; TEMP 98.1
== END 2022-03-15 09:20 | DRG 602 ==
LOC: JER 18:39 → JERBED 03-05 01:06 → J7W 03-05 15:34
PROVIDERS: ADMIT Hospitalist; ATTEND Internal Medicine
PROC: 0S9C3ZZ Drainage of Right Knee Joint, Percutaneous Approach (ICD-10-PCS; principal; 2022-03-08)
DX: L03.116 Cellulitis of left lower limb (principal); E43 Unspecified severe protein-calorie malnutrition; B20 Human immunodeficiency virus [HIV] disease; B37.0 Candidal stomatitis; F50.00 Anorexia nervosa, unspecified; N17.9 Acute kidney failure, unspecified; K92.1 Melena; M1A.9XX0 Chronic gout, unspecified, without tophus (tophi); I10 Essential (primary) hypertension; E78.5 Hyperlipidemia, unspecified; J44.9 Chronic obstructive pulmonary disease, unspecified; K21.9 Gastro-esophageal reflux disease without esophagitis; L89.322 Pressure ulcer of left buttock, stage 2; F19.10 Other psychoactive substance abuse, uncomplicated; G57.93 Unspecified mononeuropathy of bilateral lower limbs; L89.312 Pressure ulcer of right buttock, stage 2; Z68.22 Body mass index [BMI] 22.0-22.9, adult; R19.7 Diarrhea, unspecified; R74.01 Elevation of levels of liver transaminase levels; Z91.19 Patient's noncompliance with other medical treatment and regimen; D70.9 Neutropenia, unspecified; Z88.0 Allergy status to penicillin
CPT/HCPCS: 36415; 70450-TC; 71045-TC-FY; 73610-TC-LT-FY; 73630-TC-LT; 76705-TC; 80053; 80307; 81003; 82272; 82550; 82553; 83605; 83735; 84100; 84484; 84550; 85025; 85027; 85610; 85730; 86705; 86850; 86900; 86901; 87040; 87045; 87046; 87086; 87186; 87324; 87340; 87449; 87517; 93005; 93010; 97116-GP; 97162-GP; 99285-25; C9803-CS; G0480; J1644; U0003; U0005

== ENCOUNTER 2022-04-22 12:34 | Inpatient (IN) | payer OTHER ==
[2022-04-22] MEDS ORDERED: LACTATED RINGERS SOLUTION 1,000 ML/1,000 ML INFUS.BAG IV STA (13:24)
[2022-04-22] MEDS ORDERED: ACETAMINOPHEN 1000 MG/100 ML BAG IVPB ONE (13:24)
[2022-04-22] MEDS ORDERED: ONDANSETRON 4 MG/2 ML VIAL IVPUSH ONE (13:24)
[2022-04-22] MEDS ORDERED: ONDANSETRON 4 MG/2 ML VIAL ONE (13:41)
[2022-04-22 14:45] LABS: BASO % 1.2 % (0-2.0); EOS % 0.1 % (0-4.5); HEMATOCRIT 33.1 % (32.4-45.2); HEMOGLOBIN 10.9 GM/dL (10.7-15.3); LYMPH % 45.8 % (8-40); MCH 29.8 pg (25.7-33.7); MCHC 32.9 g/dl (32.0-36.0); MEAN CELL VOLUME 90.6 fl (80-96); MEAN PLT VOLUME 7.9 fl (7.5-11.1); MONO % 14.4 % (3.8-10.2); NEUT % 38.5 % (42.8-82.8); PLATELET COUNT 184 10^3/uL (134-434); RBC 3.65 M/mm3 (3.60-5.2); RDW 16.2 % (11.6-15.6); WHITE BLOOD COUNT 2.2 K/mm3 (4.0-10.0)
[2022-04-22 15:08] LABS: CHLORIDE 99 mmol/L (98-107); SODIUM 132 mmol/L (136-145)
[2022-04-22 15:11] LABS: ALBUMIN 2.7 g/dl (3.4-5.0); BLOOD UREA NITROGEN 10.4 mg/dL (7-18); CO2 27 mmol/L (21-32); GLUCOSE,RANDOM 68 mg/dL (74-106); LIPASE 172 U/L (73-393)
[2022-04-22 15:14] LABS: SGOT/AST 114 U/L (15-37)
[2022-04-22] MEDS ORDERED: CEFEPIME HCL/D5W 2 GM/50 ML BAG IVPB ONE (15:14)
[2022-04-22 15:15] LABS: BILIRUBIN,TOTAL 0.4 mg/dL (0.2-1); TOT PROT 8.1 g/dl (6.4-8.2)
[2022-04-22 15:18] LABS: ALK PHOS 93 U/L (45-117); ANION GAP 6 MMOL/L (8-16); CALCIUM 7.8 mg/dL (8.5-10.1); SGPT/ALT 25 U/L (13-61)
[2022-04-22] MEDS ORDERED: CEFEPIME 2 GM/100 ML BAG IVPB ONE (15:25)
[2022-04-22 18:36] LABS: EPI CELLS >36 /uL (0-25.1); HYALINE CASTS 6 /uL (0-3.1); PH,URINE 5.5 (5.0-8.0); URINE APPEARANCE CLOUDY; URINE BACTERIA 98 /uL (0-1359); URINE BILIRUBIN NEGATIVE (NEGATIVE); URINE COLOR DK YELLOW; URINE GLUCOSE (UA) NEGATIVE (NEGATIVE); URINE KETONE TRACE (NEGATIVE); URINE LEUK ESTERASE 1+ (NEGATIVE); URINE NITRITE NEGATIVE (NEGATIVE); URINE PROTEIN 2+ (NEGATIVE); URINE RBC 19 /uL (0-23.9); URINE UROBILINOGEN 0.2 mg/dL (0.2-1.0); URINE WBC 125 /uL (0-25.8)
[2022-04-22] MEDS ORDERED: MAG HYDROX/AL HYDROX/SIMETH 30 ML UNIT-DOSE CUP PO PRN (18:43)
[2022-04-22 19:49] LABS: CALCIUM 7.7 mg/dL (8.5-10.1)
[2022-04-22 19:50] LABS: BLOOD UREA NITROGEN 11.5 mg/dL (7-18)
[2022-04-22 19:53] LABS: CREATININE 0.9 mg/dL (0.55-1.3)
[2022-04-22] MEDS: GABAPENTIN 300 MG CAPSULE PO SCH (23:19)
[2022-04-22] MEDS: CEFEPIME 2 GM in DEXTROSE 5%-WATER 2 GM/100 ML BAG IVPB SCH (23:19)
[2022-04-22] MEDS: MIRTAZAPINE 15 MG TABLET (FP) PO SCH (23:19)
[2022-04-22] MEDS: SODIUM CHLORIDE 1,000 ML IV SCH (23:27)
[2022-04-23 01:54] VITALS: BMI 20.2
[2022-04-23] MEDS ORDERED: CEFEPIME HCL 1 GM VIAL (RESTRICTED TO ID) ONE ×2 (06:07→06:08)
[2022-04-23] MEDS: LEVOTHYROXINE NA 25 MCG TABLET (FP) PO SCH (06:50)
[2022-04-23] MEDS: GABAPENTIN 300 MG CAPSULE PO SCH ×3 (06:50→21:49)
[2022-04-23] MEDS ORDERED: CEFEPIME HCL 2 GM VIAL (RESTRICTED TO ID) ONE (06:54)
[2022-04-23] MEDS: CEFEPIME 2 GM in DEXTROSE 5%-WATER 2 GM/100 ML BAG IVPB SCH ×2 (06:59→13:50)
[2022-04-23 08:39] LABS: BASO % 0.5 % (0-2.0); EOS % 0.4 % (0-4.5); HEMATOCRIT 32.1 % (32.4-45.2); HEMOGLOBIN 10.4 GM/dL (10.7-15.3); LYMPH % 28.5 % (8-40); MCH 29.8 pg (25.7-33.7); MCHC 32.4 g/dl (32.0-36.0); MEAN CELL VOLUME 91.9 fl (80-96); MEAN PLT VOLUME 7.7 fl (7.5-11.1); MONO % 9.6 % (3.8-10.2); PLATELET COUNT 144 10^3/uL (134-434); RBC 3.49 M/mm3 (3.60-5.2); RDW 16.2 % (11.6-15.6); WHITE BLOOD COUNT 2.9 K/mm3 (4.0-10.0)
[2022-04-23 09:03] LABS: PHOSPHOROUS 2.8 mg/dL (2.5-4.9)
[2022-04-23 09:04] LABS: BILIRUBIN,TOTAL 0.3 mg/dL (0.2-1); TOT PROT 6.6 g/dl (6.4-8.2)
[2022-04-23 09:05] LABS: ALBUMIN 2.5 g/dl (3.4-5.0); BLOOD UREA NITROGEN 8.6 mg/dL (7-18)
[2022-04-23 09:06] LABS: CREATININE 0.7 mg/dL (0.55-1.3)
[2022-04-23 09:08] LABS: CALCIUM 7.4 mg/dL (8.5-10.1); MAGNESIUM 1.5 mg/dL (1.8-2.4)
[2022-04-23] MEDS ORDERED: PATIENT'S OWN MEDICATION (NON-FORMULARY) (Abacavir Sulfate/Lamivudine [Abacavir-Lamivudine PO SCH (10:00)
[2022-04-23] MEDS: PANTOPRAZOLE 40 MG TABLET PO SCH (11:01)
[2022-04-23] MEDS: ENOXAPARIN NA (PORCINE) 40 MG/0.4 ML DISP.SYRIN SQ SCH ×2 (11:01→11:08)
[2022-04-23] MEDS: VANCOMYCIN 250 MG/5 ML ORAL SOLUTION PO SCH ×2 (11:02→17:34)
[2022-04-23] MEDS: ABACAVIR SULFATE 300 MG TABLET PO SCH (13:52)
[2022-04-23] MEDS: DARUNAVIR 800 MG/COBICISTAT 150MG TABLET PO SCH (13:53)
[2022-04-23] MEDS: lamiVUDine 150 MG TABLET PO SCH (13:54)
[2022-04-23] MEDS: SODIUM CHLORIDE 1,000 ML IV SCH ×2 (13:58→21:57)
[2022-04-23] MEDS ORDERED: SODIUM CHLORIDE 500 ML IV STA (17:58)
[2022-04-23] MEDS ORDERED: MAGNESIUM SULF 50% (8.12 MEQ/2 ML-1 GM VIAL) IVPB ONE (18:09)
[2022-04-23] MEDS: MIRTAZAPINE 15 MG TABLET (FP) PO SCH (21:50)
[2022-04-24] MEDS: VANCOMYCIN 250 MG/5 ML ORAL SOLUTION PO SCH ×5 (00:05→23:41)
[2022-04-24] MEDS: GABAPENTIN 300 MG CAPSULE PO SCH ×3 (06:23→21:41)
[2022-04-24] MEDS: SODIUM CHLORIDE 1,000 ML IV SCH ×4 (06:23→23:19)
[2022-04-24] MEDS: LEVOTHYROXINE NA 25 MCG TABLET (FP) PO SCH (06:26)
[2022-04-24] MEDS: CEFEPIME HCL/D5W 2 GM/50 ML BAG IVPB SCH ×2 (07:12→07:50)
[2022-04-24 07:33] LABS: CHLORIDE 113 mmol/L (98-107); SODIUM 144 mmol/L (136-145)
[2022-04-24 07:41] LABS: ALBUMIN 2.2 g/dl (3.4-5.0); GLUCOSE,RANDOM 80 mg/dL (74-106)
[2022-04-24 07:42] LABS: ANION GAP 5 MMOL/L (8-16); BLOOD UREA NITROGEN 7.8 mg/dL (7-18); CO2 25 mmol/L (21-32); CREATININE 0.8 mg/dL (0.55-1.3); SGPT/ALT 21 U/L (13-61)
[2022-04-24 07:43] LABS: BILIRUBIN,TOTAL 0.2 mg/dL (0.2-1); TOT PROT 5.9 g/dl (6.4-8.2)
[2022-04-24 07:44] LABS: ALK PHOS 74 U/L (45-117); SGOT/AST 51 U/L (15-37)
[2022-04-24 08:03] LABS: BASO % 0.2 % (0-2.0); HEMATOCRIT 30.8 % (32.4-45.2); HEMOGLOBIN 10.1 GM/dL (10.7-15.3); LYMPH % 44.2 % (8-40); MCH 29.8 pg (25.7-33.7); MCHC 32.8 g/dl (32.0-36.0); MEAN CELL VOLUME 90.6 fl (80-96); MONO % 13.2 % (3.8-10.2); NEUT % 41.4 % (42.8-82.8); PLATELET COUNT 138 10^3/uL (134-434); RDW 16.1 % (11.6-15.6); WHITE BLOOD COUNT 2.2 K/mm3 (4.0-10.0)
[2022-04-24 08:09] LABS: CALCIUM 6.9 mg/dL (8.5-10.1)
[2022-04-24 09:48] LABS: ANISOCYTOSIS 0; MACROCYTOSIS 0
[2022-04-24] MEDS: PANTOPRAZOLE 40 MG TABLET PO SCH (11:08)
[2022-04-24] MEDS: ENOXAPARIN NA (PORCINE) 40 MG/0.4 ML DISP.SYRIN SQ SCH ×2 (11:08→11:46)
[2022-04-24] MEDS: ABACAVIR SULFATE 300 MG TABLET PO SCH (11:09)
[2022-04-24] MEDS: DARUNAVIR 800 MG/COBICISTAT 150MG TABLET PO SCH (11:09)
[2022-04-24] MEDS: lamiVUDine 150 MG TABLET PO SCH (11:10)
[2022-04-24] MEDS: CALCIUM (OYSTER SHELL) 500 MG TABLET (FP) PO SCH ×2 (11:13→21:41)
[2022-04-24] MEDS: BANATROL PLUS POWDER PACKET PO SCH ×2 (16:17→21:41)
[2022-04-24] MEDS: valACYclovir HCL 500 MG TABLET (FP) PO SCH (21:41)
[2022-04-24] MEDS: MIRTAZAPINE 15 MG TABLET (FP) PO SCH (21:41)
[2022-04-24] MEDS: ACETAMINOPHEN 325 MG TABLET (FP) PO PRN (23:40)
[2022-04-25] MEDS: VANCOMYCIN 250 MG/5 ML ORAL SOLUTION PO SCH ×4 (06:25→23:20)
[2022-04-25] MEDS: BANATROL PLUS POWDER PACKET PO SCH ×3 (06:25→23:15)
[2022-04-25] MEDS: GABAPENTIN 300 MG CAPSULE PO SCH ×3 (06:25→23:15)
[2022-04-25] MEDS: LEVOTHYROXINE NA 25 MCG TABLET (FP) PO SCH (06:25)
[2022-04-25 09:03] LABS: BASO % 0.8 % (0-2.0); EOS % 2.1 % (0-4.5); HEMATOCRIT 30.3 % (32.4-45.2); LYMPH % 59.9 % (8-40); MCH 29.6 pg (25.7-33.7); MEAN CELL VOLUME 89.8 fl (80-96); MEAN PLT VOLUME 7.7 fl (7.5-11.1); MONO % 14.9 % (3.8-10.2); NEUT % 22.3 % (42.8-82.8); PLATELET COUNT 156 10^3/uL (134-434); RBC 3.38 M/mm3 (3.60-5.2); RDW 16.4 % (11.6-15.6); WHITE BLOOD COUNT 2.1 K/mm3 (4.0-10.0)
[2022-04-25 09:20] LABS: ALBUMIN 2.3 g/dl (3.4-5.0); BLOOD UREA NITROGEN 5.5 mg/dL (7-18); CALCIUM 7.5 mg/dL (8.5-10.1); MAGNESIUM 1.6 mg/dL (1.8-2.4)
[2022-04-25 09:23] LABS: CREATININE 0.7 mg/dL (0.55-1.3)
[2022-04-25 09:24] LABS: BILIRUBIN,TOTAL 0.2 mg/dL (0.2-1); TOT PROT 6.2 g/dl (6.4-8.2)
[2022-04-25] MEDS: SODIUM CHLORIDE 1,000 ML IV SCH ×2 (09:41→20:50)
[2022-04-25] MEDS: PANTOPRAZOLE 40 MG TABLET PO SCH (09:43)
[2022-04-25] MEDS: DARUNAVIR 800 MG/COBICISTAT 150MG TABLET PO SCH (09:43)
[2022-04-25] MEDS: CALCIUM (OYSTER SHELL) 500 MG TABLET (FP) PO SCH ×2 (09:43→23:16)
[2022-04-25] MEDS: valACYclovir HCL 500 MG TABLET (FP) PO SCH ×2 (09:43→23:16)
[2022-04-25] MEDS: ENOXAPARIN NA (PORCINE) 40 MG/0.4 ML DISP.SYRIN SQ SCH ×2 (09:43→09:55)
[2022-04-25] MEDS: lamiVUDine 150 MG TABLET PO SCH (09:44)
[2022-04-25] MEDS: ABACAVIR SULFATE 300 MG TABLET PO SCH (09:45)
[2022-04-25] MEDS: MIRTAZAPINE 15 MG TABLET (FP) PO SCH (23:16)
[2022-04-26] MEDS: SODIUM CHLORIDE 1,000 ML IV SCH ×3 (06:46→19:23)
[2022-04-26] MEDS: BANATROL PLUS POWDER PACKET PO SCH ×6 (07:07→22:57)
[2022-04-26] MEDS: VANCOMYCIN 250 MG/5 ML ORAL SOLUTION PO SCH ×4 (07:07→23:06)
[2022-04-26] MEDS: GABAPENTIN 300 MG CAPSULE PO SCH ×3 (07:07→22:57)
[2022-04-26] MEDS: LEVOTHYROXINE NA 25 MCG TABLET (FP) PO SCH (07:07)
[2022-04-26 09:34] LABS: HEMATOCRIT 30.6 % (32.4-45.2); HEMOGLOBIN 9.9 GM/dL (10.7-15.3); MCH 29.5 pg (25.7-33.7); MCHC 32.3 g/dl (32.0-36.0); MEAN CELL VOLUME 91.2 fl (80-96); MEAN PLT VOLUME 7.7 fl (7.5-11.1); PLATELET COUNT 208 10^3/uL (134-434); RBC 3.35 M/mm3 (3.60-5.2); RDW 16.3 % (11.6-15.6); WHITE BLOOD COUNT 3.3 K/mm3 (4.0-10.0)
[2022-04-26 09:46] LABS: CHLORIDE 114 mmol/L (98-107); SODIUM 147 mmol/L (136-145)
[2022-04-26 09:52] LABS: ALBUMIN 2.4 g/dl (3.4-5.0); ANION GAP 5 MMOL/L (8-16); BLOOD UREA NITROGEN 5.4 mg/dL (7-18); CALCIUM 7.5 mg/dL (8.5-10.1); CO2 28 mmol/L (21-32); GLUCOSE,RANDOM 87 mg/dL (74-106); MAGNESIUM 1.3 mg/dL (1.8-2.4)
[2022-04-26 09:54] LABS: CREATININE 0.7 mg/dL (0.55-1.3); SGPT/ALT 23 U/L (13-61)
[2022-04-26 09:55] LABS: SGOT/AST 48 U/L (15-37)
[2022-04-26 09:56] LABS: BILIRUBIN,TOTAL 0.2 mg/dL (0.2-1); TOT PROT 6.4 g/dl (6.4-8.2)
[2022-04-26 09:57] LABS: ALK PHOS 82 U/L (45-117)
[2022-04-26] MEDS: ENOXAPARIN NA (PORCINE) 40 MG/0.4 ML DISP.SYRIN SQ SCH ×2 (10:51→19:20)
[2022-04-26] MEDS: CALCIUM (OYSTER SHELL) 500 MG TABLET (FP) PO SCH ×2 (10:51→22:57)
[2022-04-26] MEDS: PANTOPRAZOLE 40 MG TABLET PO SCH (10:51)
[2022-04-26] MEDS: valACYclovir HCL 500 MG TABLET (FP) PO SCH ×2 (10:51→22:57)
[2022-04-26] MEDS: DARUNAVIR 800 MG/COBICISTAT 150MG TABLET PO SCH (10:52)
[2022-04-26] MEDS: lamiVUDine 150 MG TABLET PO SCH (10:53)
[2022-04-26] MEDS: ABACAVIR SULFATE 300 MG TABLET PO SCH (10:53)
[2022-04-26 11:17] LABS: ANISOCYTOSIS 0; HELMET CELLS 0; HOWELL-JOLLY BODIES 0; MACROCYTOSIS 0; OVALOCYTE 0; ROULEAU 0; SICKELED CELLS 0; TARGET CELLS 0; TEAR DROP CELLS 0; TOXIC GRANULATION 0
[2022-04-26] MEDS ORDERED: POTASSIUM CHLORIDE TABS 20 MEQ TABLET.ER (FP) PO ONE (11:27)
[2022-04-26] MEDS: MIRTAZAPINE 15 MG TABLET (FP) PO SCH (22:57)
[2022-04-27] MEDS: BANATROL PLUS POWDER PACKET PO SCH ×3 (06:43→23:29)
[2022-04-27] MEDS: LEVOTHYROXINE NA 25 MCG TABLET (FP) PO SCH (06:43)
[2022-04-27] MEDS: VANCOMYCIN 250 MG/5 ML ORAL SOLUTION PO SCH ×4 (06:43→23:30)
[2022-04-27] MEDS: GABAPENTIN 300 MG CAPSULE PO SCH ×3 (06:43→23:30)
[2022-04-27] MEDS: SODIUM CHLORIDE 1,000 ML IV SCH ×3 (07:46→16:41)
[2022-04-27 08:31] LABS: BASO % 0.4 % (0-2.0); EOS % 1.2 % (0-4.5); HEMATOCRIT 30.3 % (32.4-45.2); LYMPH % 62.7 % (8-40); MCH 29.4 pg (25.7-33.7); MEAN CELL VOLUME 89.1 fl (80-96); MEAN PLT VOLUME 7.4 fl (7.5-11.1); MONO % 15.9 % (3.8-10.2); NEUT % 19.8 % (42.8-82.8); PLATELET COUNT 245 10^3/uL (134-434); RDW 16.2 % (11.6-15.6); WHITE BLOOD COUNT 3.1 K/mm3 (4.0-10.0)
[2022-04-27 08:46] LABS: CHLORIDE 111 mmol/L (98-107); SODIUM 146 mmol/L (136-145)
[2022-04-27 08:52] LABS: CALCIUM 7.4 mg/dL (8.5-10.1)
[2022-04-27 08:53] LABS: ALBUMIN 2.5 g/dl (3.4-5.0); ANION GAP 7 MMOL/L (8-16); BLOOD UREA NITROGEN 3.9 mg/dL (7-18); CO2 28 mmol/L (21-32); GLUCOSE,RANDOM 96 mg/dL (74-106); MAGNESIUM 1.2 mg/dL (1.8-2.4)
[2022-04-27 08:56] LABS: CREATININE 0.7 mg/dL (0.55-1.3); SGOT/AST 37 U/L (15-37); SGPT/ALT 22 U/L (13-61)
[2022-04-27 08:58] LABS: BILIRUBIN,TOTAL 0.3 mg/dL (0.2-1); TOT PROT 6.4 g/dl (6.4-8.2)
[2022-04-27 08:59] LABS: ALK PHOS 83 U/L (45-117)
[2022-04-27 10:21] LABS: ANISOCYTOSIS 0; HELMET CELLS 0; HOWELL-JOLLY BODIES 0; MACROCYTOSIS 0; OVALOCYTE 0; ROULEAU 0; SICKELED CELLS 0; TARGET CELLS 0; TEAR DROP CELLS 0; TOXIC GRANULATION 0
[2022-04-27] MEDS: ENOXAPARIN NA (PORCINE) 40 MG/0.4 ML DISP.SYRIN SQ SCH (11:13)
[2022-04-27] MEDS: ABACAVIR SULFATE 300 MG TABLET PO SCH (11:14)
[2022-04-27] MEDS: PANTOPRAZOLE 40 MG TABLET PO SCH (11:14)
[2022-04-27] MEDS: valACYclovir HCL 500 MG TABLET (FP) PO SCH ×2 (11:14→23:30)
[2022-04-27] MEDS: lamiVUDine 150 MG TABLET PO SCH (11:15)
[2022-04-27] MEDS: DARUNAVIR 800 MG/COBICISTAT 150MG TABLET PO SCH (11:15)
[2022-04-27] MEDS: CALCIUM (OYSTER SHELL) 500 MG TABLET (FP) PO SCH ×2 (11:16→23:30)
[2022-04-27] MEDS ORDERED: POTASSIUM CHLORIDE TABS 20 MEQ TABLET.ER (FP) PO ONE (12:12)
[2022-04-27] MEDS ORDERED: MAGNESIUM SULF 50% (8.12 MEQ/2 ML-1 GM VIAL) IVPB ONE (16:12)
[2022-04-27] MEDS: ACETAMINOPHEN 325 MG TABLET (FP) PO PRN (18:04)
[2022-04-27] MEDS: NYSTATIN 500,000 UNITS/5 ML SUSPENSION PO SCH ×2 (18:04→23:30)
[2022-04-27] MEDS: POTASSIUM CHLORIDE TABS 20 MEQ TABLET.ER (FP) PO SCH (23:30)
[2022-04-27] MEDS: MIRTAZAPINE 15 MG TABLET (FP) PO SCH (23:30)
[2022-04-28] MEDS: BANATROL PLUS POWDER PACKET PO SCH ×3 (06:44→22:33)
[2022-04-28] MEDS: VANCOMYCIN 250 MG/5 ML ORAL SOLUTION PO SCH ×4 (06:45→23:26)
[2022-04-28] MEDS: GABAPENTIN 300 MG CAPSULE PO SCH ×3 (06:45→22:33)
[2022-04-28] MEDS: NYSTATIN 500,000 UNITS/5 ML SUSPENSION PO SCH ×4 (06:45→23:26)
[2022-04-28] MEDS: LEVOTHYROXINE NA 25 MCG TABLET (FP) PO SCH (06:48)
[2022-04-28] MEDS: SODIUM CHLORIDE 1,000 ML IV SCH ×2 (07:09→19:40)
[2022-04-28 10:36] LABS: CHLORIDE 113 mmol/L (98-107); SODIUM 146 mmol/L (136-145)
[2022-04-28 10:42] LABS: CALCIUM 8.1 mg/dL (8.5-10.1)
[2022-04-28 10:43] LABS: ALBUMIN 2.6 g/dl (3.4-5.0); ANION GAP 4 MMOL/L (8-16); BLOOD UREA NITROGEN 8.1 mg/dL (7-18); CO2 30 mmol/L (21-32); GLUCOSE,RANDOM 97 mg/dL (74-106)
[2022-04-28 10:44] LABS: CREATININE 0.7 mg/dL (0.55-1.3); SGPT/ALT 22 U/L (13-61)
[2022-04-28 10:46] LABS: BILIRUBIN,TOTAL 0.2 mg/dL (0.2-1); SGOT/AST 36 U/L (15-37); TOT PROT 6.9 g/dl (6.4-8.2)
[2022-04-28 10:51] LABS: ALK PHOS 116 U/L (45-117)
[2022-04-28] MEDS: ENOXAPARIN NA (PORCINE) 40 MG/0.4 ML DISP.SYRIN SQ SCH (11:14)
[2022-04-28] MEDS: lamiVUDine 150 MG TABLET PO SCH (11:14)
[2022-04-28] MEDS: DARUNAVIR 800 MG/COBICISTAT 150MG TABLET PO SCH (11:14)
[2022-04-28] MEDS: valACYclovir HCL 500 MG TABLET (FP) PO SCH ×2 (11:15→22:33)
[2022-04-28] MEDS: CALCIUM (OYSTER SHELL) 500 MG TABLET (FP) PO SCH ×2 (11:15→22:33)
[2022-04-28] MEDS: POTASSIUM CHLORIDE TABS 20 MEQ TABLET.ER (FP) PO SCH ×2 (11:15→22:33)
[2022-04-28] MEDS: PANTOPRAZOLE 40 MG TABLET PO SCH (11:15)
[2022-04-28] MEDS: ABACAVIR SULFATE 300 MG TABLET PO SCH (11:16)
[2022-04-28] MEDS: MIRTAZAPINE 15 MG TABLET (FP) PO SCH (22:33)
[2022-04-29] MEDS: SODIUM CHLORIDE 1,000 ML IV SCH (00:52)
[2022-04-29] MEDS: VANCOMYCIN 250 MG/5 ML ORAL SOLUTION PO SCH ×4 (06:45→23:18)
[2022-04-29] MEDS: GABAPENTIN 300 MG CAPSULE PO SCH ×3 (06:45→23:17)
[2022-04-29] MEDS: BANATROL PLUS POWDER PACKET PO SCH ×3 (06:45→23:17)
[2022-04-29] MEDS: NYSTATIN 500,000 UNITS/5 ML SUSPENSION PO SCH ×4 (06:45→23:18)
[2022-04-29] MEDS: LEVOTHYROXINE NA 25 MCG TABLET (FP) PO SCH (06:46)
[2022-04-29 09:36] LABS: HEMATOCRIT 31.4 % (32.4-45.2); HEMOGLOBIN 10.3 GM/dL (10.7-15.3); MCH 29.8 pg (25.7-33.7); MCHC 32.7 g/dl (32.0-36.0); MEAN CELL VOLUME 91.3 fl (80-96); MEAN PLT VOLUME 7.7 fl (7.5-11.1); PLATELET COUNT 368 10^3/uL (134-434); RBC 3.44 M/mm3 (3.60-5.2); WHITE BLOOD COUNT 5.1 K/mm3 (4.0-10.0)
[2022-04-29 09:56] LABS: CHLORIDE 113 mmol/L (98-107); SODIUM 145 mmol/L (136-145)
[2022-04-29 10:00] LABS: ALBUMIN 2.6 g/dl (3.4-5.0); ANION GAP 1 MMOL/L (8-16); BLOOD UREA NITROGEN 8.6 mg/dL (7-18); CO2 30 mmol/L (21-32); GLUCOSE,RANDOM 85 mg/dL (74-106)
[2022-04-29 10:01] LABS: CALCIUM 8.5 mg/dL (8.5-10.1); MAGNESIUM 1.8 mg/dL (1.8-2.4)
[2022-04-29 10:03] LABS: CREATININE 0.6 mg/dL (0.55-1.3); SGPT/ALT 20 U/L (13-61)
[2022-04-29 10:04] LABS: SGOT/AST 25 U/L (15-37)
[2022-04-29 10:05] LABS: BILIRUBIN,TOTAL 0.3 mg/dL (0.2-1); TOT PROT 6.6 g/dl (6.4-8.2)
[2022-04-29 10:06] LABS: ALK PHOS 106 U/L (45-117)
[2022-04-29 10:51] LABS: ANISOCYTOSIS 0; HELMET CELLS 0; HOWELL-JOLLY BODIES 0; MACROCYTOSIS 0; OVALOCYTE 0; ROULEAU 0; SICKELED CELLS 0; TARGET CELLS 0; TEAR DROP CELLS 0; TOXIC GRANULATION 0
[2022-04-29] MEDS: valACYclovir HCL 500 MG TABLET (FP) PO SCH ×2 (11:27→23:17)
[2022-04-29] MEDS: PANTOPRAZOLE 40 MG TABLET PO SCH (11:27)
[2022-04-29] MEDS: CALCIUM (OYSTER SHELL) 500 MG TABLET (FP) PO SCH ×2 (11:27→23:17)
[2022-04-29] MEDS: ENOXAPARIN NA (PORCINE) 40 MG/0.4 ML DISP.SYRIN SQ SCH (11:27)
[2022-04-29] MEDS: POTASSIUM CHLORIDE TABS 20 MEQ TABLET.ER (FP) PO SCH ×3 (11:28→23:18)
[2022-04-29] MEDS: ABACAVIR SULFATE 300 MG TABLET PO SCH (11:29)
[2022-04-29] MEDS: lamiVUDine 150 MG TABLET PO SCH (11:29)
[2022-04-29] MEDS: DARUNAVIR 800 MG/COBICISTAT 150MG TABLET PO SCH (11:29)
[2022-04-29] MEDS: MIRTAZAPINE 15 MG TABLET (FP) PO SCH (23:17)
[2022-04-30] MEDS: BANATROL PLUS POWDER PACKET PO SCH (06:20)
[2022-04-30] MEDS: GABAPENTIN 300 MG CAPSULE PO SCH (06:20)
[2022-04-30] MEDS: NYSTATIN 500,000 UNITS/5 ML SUSPENSION PO SCH (06:20)
[2022-04-30] MEDS: VANCOMYCIN 250 MG/5 ML ORAL SOLUTION PO SCH (06:20)
[2022-04-30] MEDS: LEVOTHYROXINE NA 25 MCG TABLET (FP) PO SCH (06:20)
[2022-04-30 07:13] VITALS: TEMP 97.8
[2022-04-30 09:46] LABS: HEMATOCRIT 33.9 % (32.4-45.2); HEMOGLOBIN 10.8 GM/dL (10.7-15.3); MCH 29.2 pg (25.7-33.7); MCHC 31.7 g/dl (32.0-36.0); MEAN CELL VOLUME 92.1 fl (80-96); MEAN PLT VOLUME 7.7 fl (7.5-11.1); PLATELET COUNT 388 10^3/uL (134-434); RBC 3.68 M/mm3 (3.60-5.2); RDW 16.5 % (11.6-15.6); WHITE BLOOD COUNT 5.7 K/mm3 (4.0-10.0)
[2022-04-30 10:10] LABS: CHLORIDE 110 mmol/L (98-107); SODIUM 145 mmol/L (136-145)
[2022-04-30 10:15] LABS: ALBUMIN 2.7 g/dl (3.4-5.0); ANION GAP 5 MMOL/L (8-16); BLOOD UREA NITROGEN 10.2 mg/dL (7-18); CALCIUM 8.8 mg/dL (8.5-10.1); CO2 30 mmol/L (21-32); GLUCOSE,RANDOM 93 mg/dL (74-106)
[2022-04-30 10:18] LABS: CREATININE 0.7 mg/dL (0.55-1.3); SGOT/AST 25 U/L (15-37); SGPT/ALT 19 U/L (13-61)
[2022-04-30 10:20] LABS: BILIRUBIN,TOTAL 0.3 mg/dL (0.2-1)
[2022-04-30 10:21] LABS: ALK PHOS 110 U/L (45-117)
[2022-04-30] MEDS: ENOXAPARIN NA (PORCINE) 40 MG/0.4 ML DISP.SYRIN SQ SCH (10:21)
[2022-04-30] MEDS: DARUNAVIR 800 MG/COBICISTAT 150MG TABLET PO SCH (10:21)
[2022-04-30] MEDS: CALCIUM (OYSTER SHELL) 500 MG TABLET (FP) PO SCH (10:21)
[2022-04-30] MEDS: PANTOPRAZOLE 40 MG TABLET PO SCH (10:21)
[2022-04-30] MEDS: valACYclovir HCL 500 MG TABLET (FP) PO SCH (10:21)
[2022-04-30] MEDS: ABACAVIR SULFATE 300 MG TABLET PO SCH (10:22)
[2022-04-30] MEDS: lamiVUDine 150 MG TABLET PO SCH (10:22)
[2022-04-30 10:43] VITALS: BP 133/75; PULSE 93; RESP 16
[2022-04-30] MEDS: POTASSIUM CHLORIDE TABS 20 MEQ TABLET.ER (FP) PO SCH (10:43)
[2022-04-30 11:03] LABS: ANISOCYTOSIS 0; MACROCYTOSIS 0
== END 2022-04-30 11:20 | disposition home health service (06) | DRG 371 ==
LOC: JER 12:34 → JERBED 13:29 → J7W 22:02
PROVIDERS: ADMIT Internal Medicine; ATTEND Nurse Practitioner Acute Care
DX: A04.72 Enterocolitis due to Clostridium difficile, not specified as recurrent (principal); U07.1 COVID-19; B20 Human immunodeficiency virus [HIV] disease; F50.00 Anorexia nervosa, unspecified; B37.0 Candidal stomatitis; K21.9 Gastro-esophageal reflux disease without esophagitis; J44.9 Chronic obstructive pulmonary disease, unspecified; G62.9 Polyneuropathy, unspecified; M10.9 Gout, unspecified; Z68.20 Body mass index [BMI] 20.0-20.9, adult; F32.A Depression, unspecified; K76.0 Fatty (change of) liver, not elsewhere classified; F41.8 Other specified anxiety disorders; G47.00 Insomnia, unspecified; E87.5 Hyperkalemia; D70.9 Neutropenia, unspecified; E03.9 Hypothyroidism, unspecified; R91.8 Other nonspecific abnormal finding of lung field; A60.00 Herpesviral infection of urogenital system, unspecified
CPT/HCPCS: 36415; 71045-TC-FY; 74018-TC-FY; 80048; 80053; 81003; 82728; 82962; 83605; 83690; 83735; 84100; 84443; 84484; 85025; 86140; 87040; 87045; 87046; 87086; 87186; 87324; 87328; 87329; 87449; 93005; 93010; 97116-GP; 97161-GP; 99285-25; C9803-CS; U0003; U0005

== ENCOUNTER 2022-12-10 16:31 | Observation (INO) | payer OTHER ==
[2022-12-10 17:38] LABS: BASO % 0.4 % (0-2.0); EOS % 3.8 % (0-4.5); HEMATOCRIT 35.8 % (32.4-45.2); HEMOGLOBIN 11.9 GM/dL (10.7-15.3); LYMPH % 43.5 % (8-40); MCH 29.3 pg (25.7-33.7); MCHC 33.1 g/dl (32.0-36.0); MEAN CELL VOLUME 88.5 fl (80-96); MONO % 10.4 % (3.8-10.2); NEUT % 41.9 % (42.8-82.8); PLATELET COUNT 271 10^3/uL (134-434); RBC 4.04 M/mm3 (3.60-5.2); RDW 15.9 % (11.6-15.6); WHITE BLOOD COUNT 6.9 K/mm3 (4.0-10.0)
[2022-12-10 17:47] LABS: INR 1.07 (0.83-1.09); PROTHROMBIN TIME (PATIENT) 12.4 SEC (9.7-13.0)
[2022-12-10 17:50] LABS: ACTIVATED PTT 36.8 SECONDS (25.2-36.5)
[2022-12-10 18:04] LABS: ALBUMIN 3.7 g/dl (3.4-5.0); CALCIUM 9.5 mg/dL (8.5-10.1); MAGNESIUM 2.2 mg/dL (1.8-2.4)
[2022-12-10] MEDS ORDERED: ALBUTEROL SO4 2.5/IPRATROPIUM 0.5 INH SOL 3 ML VIAL.NEB. NEB ONE ×2 (18:07→18:43)
[2022-12-10] MEDS ORDERED: methylPREDNISolone NA SUCC 125 MG/2 ML VIAL IVPB ONE (18:07)
[2022-12-10 18:09] LABS: BILIRUBIN,TOTAL 0.4 mg/dL (0.2-1)
[2022-12-10] MEDS ORDERED: CEFTRIAXONE 1 GM in DEXTROSE 5%-WATER - 100 ML IVPB ONE (18:32)
[2022-12-10] MEDS ORDERED: CEFTRIAXONE 1 GM/50 ML BAG ONE (18:43)
[2022-12-10] MEDS ORDERED: methylPREDNISolone NA SUCC 125 MG/2 ML VIAL ONE (18:43)
[2022-12-10] MEDS ORDERED: ACETAMINOPHEN 325 MG TABLET (FP) PO PRN (20:05)
[2022-12-10] MEDS ORDERED: ALBUTEROL SO4 2.5/IPRATROPIUM 0.5 INH SOL 3 ML VIAL.NEB. NEB PRN (20:09)
[2022-12-10 20:42] LABS: EPI CELLS 25 /uL (0-25.1); HYALINE CASTS 0 /uL (0-3.1); PH,URINE 5.5 (5.0-8.0); URINE APPEARANCE CLEAR; URINE BACTERIA 82 /uL (0-1359); URINE BILIRUBIN NEGATIVE (NEGATIVE); URINE COLOR YELLOW; URINE GLUCOSE (UA) NEGATIVE (NEGATIVE); URINE KETONE NEGATIVE (NEGATIVE); URINE LEUK ESTERASE 2+ (NEGATIVE); URINE NITRITE NEGATIVE (NEGATIVE); URINE PROTEIN NEGATIVE (NEGATIVE); URINE RBC 76 /uL (0-23.9); URINE WBC 83 /uL (0-25.8)
[2022-12-11] MEDS ORDERED: LORATADINE 10 MG TABLET PO PRN (00:12)
[2022-12-11] MEDS ORDERED: guaiFENesin 200 MG/10 ML 10 ML UNIT-DOSE CUPS PO PRN (00:12)
[2022-12-11] MEDS ORDERED: ALBUTEROL SO4 0.083% IH SOL 2.5 MG/3 ML VIAL.NEB. NEB SCH (00:15)
[2022-12-11] MEDS ORDERED: GABAPENTIN 300 MG CAPSULE PO ONE (00:15)
[2022-12-11] MEDS ORDERED: valACYclovir HCL 500 MG TABLET (FP) PO ONE (00:16)
[2022-12-11] MEDS: oxyCODONE HCL 5 MG TABLET PO PRN ×3 (00:34→18:38)
[2022-12-11] MEDS ORDERED: MELATONIN 5 MG TABLETS PO PRN (01:02)
[2022-12-11] MEDS ORDERED: methylPREDNISolone NA SUCC 40 MG/1 ML VIAL ONE ×2 (01:07→09:39)
[2022-12-11] MEDS: methylPREDNISolone NA SUCC 40 MG/1 ML VIAL IVPUSH SCH ×3 (01:11→18:27)
[2022-12-11] MEDS ORDERED: GABAPENTIN 300 MG CAPSULE ONE ×3 (06:49→13:56)
[2022-12-11 07:27] LABS: BASO % 0.1 % (0-2.0); EOS % 0.1 % (0-4.5); HEMOGLOBIN 10.6 GM/dL (10.7-15.3); LYMPH % 19.4 % (8-40); MCH 29.2 pg (25.7-33.7); MCHC 33.2 g/dl (32.0-36.0); MEAN CELL VOLUME 88.1 fl (80-96); MEAN PLT VOLUME 8.1 fl (7.5-11.1); MONO % 1.9 % (3.8-10.2); NEUT % 78.5 % (42.8-82.8); PLATELET COUNT 244 10^3/uL (134-434); RBC 3.63 M/mm3 (3.60-5.2); RDW 15.5 % (11.6-15.6); WHITE BLOOD COUNT 4.8 K/mm3 (4.0-10.0)
[2022-12-11 07:46] LABS: CALCIUM 9.2 mg/dL (8.5-10.1)
[2022-12-11 07:47] LABS: BLOOD UREA NITROGEN 21.4 mg/dL (7-18)
[2022-12-11] MEDS ORDERED: CITALOPRAM HYDROBROMIDE 10 MG TABLET ONE (09:37)
[2022-12-11] MEDS ORDERED: ACETAMINOPHEN 325 MG TABLET (FP) ONE (09:37)
[2022-12-11] MEDS ORDERED: HEPARIN NA (PORCINE) 5,000 UNITS/ML 1ML VIAL ONE (09:38)
[2022-12-11] MEDS ORDERED: oxyCODONE HCL 5 MG TABLET ONE (09:38)
[2022-12-11] MEDS ORDERED: CEFTRIAXONE 1 GM/50 ML BAG ONE (09:39)
[2022-12-11] MEDS: GABAPENTIN 300 MG CAPSULE PO SCH ×3 (09:54→21:51)
[2022-12-11] MEDS: CITALOPRAM HYDROBROMIDE 20 MG TABLET PO SCH (09:54)
[2022-12-11] MEDS: HEPARIN NA (PORCINE) 5,000 UNITS/ML 1ML VIAL SQ SCH ×2 (09:54→21:52)
[2022-12-11] MEDS: DARUNAVIR 800 MG/COBICISTAT 150MG TABLET PO SCH (09:55)
[2022-12-11] MEDS: BUDESONIDE/FORMETEROL FUMARATE 80/4.5 mcg INHALER IH SCH ×2 (09:55→22:02)
[2022-12-11] MEDS: VITAMIN B COMPLEX W/C COMBO TABLET (FP) PO SCH (09:56)
[2022-12-11] MEDS ORDERED: PATIENT'S OWN MEDICATION (NON-FORMULARY) (Abacavir Sulfate/Lamivudine [Abacavir-Lamivudine PO SCH (10:00)
[2022-12-11] MEDS ORDERED: ERGOCALCIFEROL (VIT D2) 50,000 UNIT (1.25 MG) CAPSULE PO SCH (10:00)
[2022-12-11] MEDS ORDERED: ALBUTEROL SO4 2.5/IPRATROPIUM 0.5 INH SOL 3 ML VIAL.NEB. NEB ONE (11:18)
[2022-12-11] MEDS: valACYclovir HCL 500 MG TABLET (FP) PO SCH ×2 (11:25→21:51)
[2022-12-11] MEDS: CEFTRIAXONE 1 GM in DEXTROSE 5%-WATER - 50 ML IVPB SCH (13:50)
[2022-12-11] MEDS: ABACAVIR SULFATE 300 MG TABLET PO SCH (13:51)
[2022-12-11 15:17] VITALS: BMI 21.3
[2022-12-11 19:59] VITALS: RESP 18
[2022-12-12] MEDS: methylPREDNISolone NA SUCC 40 MG/1 ML VIAL IVPUSH SCH ×2 (01:12→14:37)
[2022-12-12] MEDS: oxyCODONE HCL 5 MG TABLET PO PRN ×2 (02:30→14:50)
[2022-12-12] MEDS: CITALOPRAM HYDROBROMIDE 20 MG TABLET PO SCH (06:26)
[2022-12-12] MEDS: GABAPENTIN 300 MG CAPSULE PO SCH ×2 (06:27→14:37)
[2022-12-12] MEDS ORDERED: INSULIN (LEVEMIR) 100 UNITS/ML UNITS SQ ONE (06:47)
[2022-12-12 08:54] VITALS: BP 98/65; PULSE 61; TEMP 97.8
[2022-12-12 09:09] LABS: CALCIUM 8.5 mg/dL (8.5-10.1)
[2022-12-12 09:10] LABS: MAGNESIUM 2.2 mg/dL (1.8-2.4)
[2022-12-12 09:13] LABS: CREATININE 1.3 mg/dL (0.55-1.3); PHOSPHOROUS 4.7 mg/dL (2.5-4.9)
[2022-12-12] MEDS ORDERED: REGADENOSON 0.4 MG/5 ML PRE-FILLED SYRINGE IVPUSH ONE ×2 (10:15→11:33)
[2022-12-12] MEDS: HEPARIN NA (PORCINE) 5,000 UNITS/ML 1ML VIAL SQ SCH ×2 (14:37→14:59)
[2022-12-12] MEDS: CEFTRIAXONE 1 GM in DEXTROSE 5%-WATER - 50 ML IVPB SCH (14:37)
[2022-12-12] MEDS: VITAMIN B COMPLEX W/C COMBO TABLET (FP) PO SCH (14:38)
[2022-12-12] MEDS: ABACAVIR SULFATE 300 MG TABLET PO SCH (14:38)
[2022-12-12] MEDS: DARUNAVIR 800 MG/COBICISTAT 150MG TABLET PO SCH (14:39)
[2022-12-12] MEDS: BUDESONIDE/FORMETEROL FUMARATE 80/4.5 mcg INHALER IH SCH (14:40)
== END 2022-12-12 16:16 | disposition home or self-care (01) ==
LOC: JER 16:31 → JERBED 18:30 → J4S 12-11 15:30
PROVIDERS: ADMIT Internal Medicine; ATTEND Internal Medicine
PROC: 3E0F7GC Introduction of Other Therapeutic Substance into Respiratory Tract, Via Natural or Artificial Opening (ICD-10-PCS; principal; 2022-12-10)
PROC: 3E03329 Introduction of Other Anti-infective into Peripheral Vein, Percutaneous Approach (ICD-10-PCS; 2022-12-10)
DX: J44.1 Chronic obstructive pulmonary disease with (acute) exacerbation (principal); K21.9 Gastro-esophageal reflux disease without esophagitis; R63.0 Anorexia; E78.5 Hyperlipidemia, unspecified; K76.0 Fatty (change of) liver, not elsewhere classified; F41.8 Other specified anxiety disorders; G47.00 Insomnia, unspecified; F51.05 Insomnia due to other mental disorder; Z88.0 Allergy status to penicillin
CPT/HCPCS: 0241U-QW; 36415; 71045-TC-FY; 71275-TC; 78452-TC; 80048; 80053; 81003; 83735; 83880; 84100; 84443; 84484; 85025; 85379; 85610; 85730; 86850; 86900; 86901; 87086; 93005; 93010; 93017; 93306-TC; 94640; 96361; 96365; 96375; 96376; 99285-25; A9502; G0378; J1644; J2785; Q9967

== ENCOUNTER 2023-01-12 08:34 | Inpatient (IN) | payer OTHER ==
[2023-01-12 08:53] VITALS: BMI 26.9
[2023-01-12] MEDS ORDERED: methylPREDNISolone NA SUCC 125 MG/2 ML VIAL IVPUSH ONE (09:18)
[2023-01-12] MEDS: ALBUTEROL SO4 2.5/IPRATROPIUM 0.5 INH SOL 3 ML VIAL.NEB. NEB SCH ×5 (09:26→20:10)
[2023-01-12] MEDS ORDERED: methylPREDNISolone NA SUCC 125 MG/2 ML VIAL ONE (09:30)
[2023-01-12] MEDS ORDERED: ALBUTEROL SO4 2.5/IPRATROPIUM 0.5 INH SOL 3 ML VIAL.NEB. NEB ONE (10:02)
[2023-01-12 11:39] LABS: VENOUS O2 SATURATION 29.9 % (70-80); VENOUS PCO2 56.7 mmHg (38-52); VENOUS PH 7.259 (7.310-7.410)
[2023-01-12 11:56] LABS: POTASSIUM 3.7 mmol/L (3.5-5.1)
[2023-01-12 12:00] LABS: ALBUMIN 3.2 g/dl (3.4-5.0); BLOOD UREA NITROGEN 24.7 mg/dL (7-18); CALCIUM 9.2 mg/dL (8.5-10.1); MAGNESIUM 2.1 mg/dL (1.8-2.4)
[2023-01-12 12:03] LABS: CREATININE 1.2 mg/dL (0.55-1.3)
[2023-01-12 12:04] LABS: TOT PROT 7.8 g/dl (6.4-8.2)
[2023-01-12 12:05] LABS: BILIRUBIN,TOTAL 0.6 mg/dL (0.2-1)
[2023-01-12 12:08] LABS: BASO % 0.1 % (0-2.0); EOS % 0.5 % (0-4.5); HEMATOCRIT 35.3 % (32.4-45.2); HEMOGLOBIN 11.5 GM/dL (10.7-15.3); LYMPH % 31.2 % (8-40); MCH 29.7 pg (25.7-33.7); MCHC 32.5 g/dl (32.0-36.0); MEAN CELL VOLUME 91.2 fl (80-96); MONO % 9.1 % (3.8-10.2); NEUT % 59.1 % (42.8-82.8); PLATELET COUNT 270 10^3/uL (134-434); RBC 3.87 M/mm3 (3.60-5.2); RDW 16.7 % (11.6-15.6); WHITE BLOOD COUNT 11.1 K/mm3 (4.0-10.0)
[2023-01-12] MEDS ORDERED: CEFTRIAXONE 1,000 MG in DEXTROSE 5%-WATER - 50 ML IVPB ONE (12:18)
[2023-01-12] MEDS ORDERED: CEFTRIAXONE 1 GM/50 ML BAG ONE (12:23)
[2023-01-12] MEDS ORDERED: ALBUTEROL SO4 HFA INHALER IH PRN (13:35)
[2023-01-12] MEDS ORDERED: ALBUTEROL SO4 2.5/IPRATROPIUM 0.5 INH SOL 3 ML VIAL.NEB. NEB PRN (13:38)
[2023-01-12] MEDS ORDERED: ACETAMINOPHEN 325 MG TABLET (FP) PO PRN (13:40)
[2023-01-12] MEDS ORDERED: MAGNESIUM SULF 50% (8.12 MEQ/2 ML-1 GM VIAL) IVPB ONE (13:43)
[2023-01-12] MEDS ORDERED: [UNRECOGNIZED DRUG - OTHER] MC SCH (13:45)
[2023-01-12] MEDS: GABAPENTIN 300 MG CAPSULE PO SCH ×2 (15:35→21:19)
[2023-01-12] MEDS ORDERED: MAGNESIUM SULFATE IN WATER 2 GM/50 ML IVPB IVPB ONE (15:38)
[2023-01-12] MEDS: methylPREDNISolone NA SUCC 40 MG/1 ML VIAL IVPUSH SCH ×2 (15:38→21:21)
[2023-01-12] MEDS ORDERED: GABAPENTIN 300 MG CAPSULE ONE (15:38)
[2023-01-12] MEDS: HEPARIN NA (PORCINE) 5,000 UNITS/ML 1ML VIAL SQ SCH (21:16)
[2023-01-12] MEDS: LIDOCAINE PATCH REMOVAL MC SCH (21:17)
[2023-01-12] MEDS: valACYclovir HCL 500 MG TABLET (FP) PO SCH (21:19)
[2023-01-12] MEDS: guaiFENesin 200 MG/10 ML 10 ML UNIT-DOSE CUPS PO PRN (21:21)
[2023-01-13] MEDS: methylPREDNISolone NA SUCC 40 MG/1 ML VIAL IVPUSH SCH ×3 (02:46→16:14)
[2023-01-13] MEDS: CITALOPRAM HYDROBROMIDE 20 MG TABLET PO SCH (06:20)
[2023-01-13] MEDS: GABAPENTIN 300 MG CAPSULE PO SCH ×3 (06:20→21:30)
[2023-01-13] MEDS: ALBUTEROL SO4 2.5/IPRATROPIUM 0.5 INH SOL 3 ML VIAL.NEB. NEB SCH ×4 (07:35→19:54)
[2023-01-13 08:41] LABS: BASO % 0.2 % (0-2.0); HEMATOCRIT 33.9 % (32.4-45.2); HEMOGLOBIN 11.2 GM/dL (10.7-15.3); LYMPH % 15.7 % (8-40); MCH 29.8 pg (25.7-33.7); MEAN CELL VOLUME 90.3 fl (80-96); MEAN PLT VOLUME 7.9 fl (7.5-11.1); MONO % 3.1 % (3.8-10.2); PLATELET COUNT 282 10^3/uL (134-434); RBC 3.76 M/mm3 (3.60-5.2); WHITE BLOOD COUNT 13.1 K/mm3 (4.0-10.0)
[2023-01-13 09:02] LABS: POTASSIUM 4.4 mmol/L (3.5-5.1)
[2023-01-13] MEDS: HEPARIN NA (PORCINE) 5,000 UNITS/ML 1ML VIAL SQ SCH ×3 (09:09→21:30)
[2023-01-13 09:12] LABS: BLOOD UREA NITROGEN 25.7 mg/dL (7-18)
[2023-01-13] MEDS: FAMOTIDINE 20 MG TABLET PO SCH (09:14)
[2023-01-13] MEDS: valACYclovir HCL 500 MG TABLET (FP) PO SCH ×2 (09:14→21:30)
[2023-01-13 09:15] LABS: CREATININE 1.3 mg/dL (0.55-1.3)
[2023-01-13] MEDS: LACTOBACILLUS ACIDOPHILUS 1 TABLET PO SCH (09:15)
[2023-01-13 09:16] LABS: BILIRUBIN,TOTAL 0.2 mg/dL (0.2-1); TOT PROT 7.3 g/dl (6.4-8.2)
[2023-01-13] MEDS: VITAMIN B COMPLEX W/C COMBO TABLET (FP) PO SCH (09:16)
[2023-01-13] MEDS: DARUNAVIR 800 MG/COBICISTAT 150MG TABLET PO SCH (09:17)
[2023-01-13] MEDS: ABACAVIR SULFATE 300 MG TABLET PO SCH (09:17)
[2023-01-13] MEDS: lamiVUDine 150 MG TABLET PO SCH (09:20)
[2023-01-13] MEDS: LORATADINE 10 MG TABLET PO SCH (09:30)
[2023-01-13] MEDS ORDERED: PATIENT'S OWN MEDICATION (NON-FORMULARY) (Abacavir Sulfate/Lamivudine [Abacavir-Lamivudine PO SCH (10:00)
[2023-01-13] MEDS ORDERED: methylPREDNISolone NA SUCC 40 MG/1 ML VIAL IVPUSH SCH (10:45)
[2023-01-13] MEDS: LIDOCAINE 5% TOPICAL PATCH TP SCH (13:34)
[2023-01-13] MEDS: guaiFENesin 200 MG/10 ML 10 ML UNIT-DOSE CUPS PO PRN (19:30)
[2023-01-13] MEDS: LIDOCAINE PATCH REMOVAL MC SCH (21:34)
[2023-01-14] MEDS: methylPREDNISolone NA SUCC 40 MG/1 ML VIAL IVPUSH SCH ×3 (01:21→17:25)
[2023-01-14] MEDS: CITALOPRAM HYDROBROMIDE 20 MG TABLET PO SCH (06:00)
[2023-01-14] MEDS: GABAPENTIN 300 MG CAPSULE PO SCH ×3 (06:00→21:20)
[2023-01-14] MEDS: ALBUTEROL SO4 2.5/IPRATROPIUM 0.5 INH SOL 3 ML VIAL.NEB. NEB SCH ×4 (07:33→19:59)
[2023-01-14] MEDS: guaiFENesin 200 MG/10 ML 10 ML UNIT-DOSE CUPS PO PRN (09:32)
[2023-01-14] MEDS: valACYclovir HCL 500 MG TABLET (FP) PO SCH ×2 (09:32→21:20)
[2023-01-14] MEDS: LORATADINE 10 MG TABLET PO SCH (09:32)
[2023-01-14] MEDS: LACTOBACILLUS ACIDOPHILUS 1 TABLET PO SCH (09:32)
[2023-01-14] MEDS: lamiVUDine 150 MG TABLET PO SCH (09:32)
[2023-01-14] MEDS: DARUNAVIR 800 MG/COBICISTAT 150MG TABLET PO SCH (09:32)
[2023-01-14] MEDS: FAMOTIDINE 20 MG TABLET PO SCH (09:32)
[2023-01-14] MEDS: VITAMIN B COMPLEX W/C COMBO TABLET (FP) PO SCH (09:32)
[2023-01-14] MEDS: HEPARIN NA (PORCINE) 5,000 UNITS/ML 1ML VIAL SQ SCH ×4 (09:32→21:27)
[2023-01-14] MEDS: ABACAVIR SULFATE 300 MG TABLET PO SCH (09:33)
[2023-01-14] MEDS: LIDOCAINE 5% TOPICAL PATCH TP SCH (09:33)
[2023-01-14 11:20] LABS: HEMATOCRIT 32.6 % (32.4-45.2); HEMOGLOBIN 10.5 GM/dL (10.7-15.3); MCH 29.3 pg (25.7-33.7); MCHC 32.3 g/dl (32.0-36.0); MEAN CELL VOLUME 90.7 fl (80-96); MEAN PLT VOLUME 7.5 fl (7.5-11.1); PLATELET COUNT 271 10^3/uL (134-434); RBC 3.59 M/mm3 (3.60-5.2); RDW 17.3 % (11.6-15.6); WHITE BLOOD COUNT 14.1 K/mm3 (4.0-10.0)
[2023-01-14 12:04] LABS: POTASSIUM 3.7 mmol/L (3.5-5.1)
[2023-01-14 12:09] LABS: CALCIUM 8.2 mg/dL (8.5-10.1)
[2023-01-14 12:10] LABS: BLOOD UREA NITROGEN 23.9 mg/dL (7-18); MAGNESIUM 1.9 mg/dL (1.8-2.4)
[2023-01-14 12:13] LABS: CREATININE 1.2 mg/dL (0.55-1.3)
[2023-01-14] MEDS: LIDOCAINE PATCH REMOVAL MC SCH (21:21)
[2023-01-15] MEDS: methylPREDNISolone NA SUCC 40 MG/1 ML VIAL IVPUSH SCH ×2 (00:55→09:07)
[2023-01-15] MEDS: GABAPENTIN 300 MG CAPSULE PO SCH (06:23)
[2023-01-15] MEDS: CITALOPRAM HYDROBROMIDE 20 MG TABLET PO SCH (06:23)
[2023-01-15] MEDS: ALBUTEROL SO4 2.5/IPRATROPIUM 0.5 INH SOL 3 ML VIAL.NEB. NEB SCH ×3 (07:25→16:33)
[2023-01-15 09:45] LABS: HEMATOCRIT 32.5 % (32.4-45.2); HEMOGLOBIN 10.5 GM/dL (10.7-15.3); MCH 29.7 pg (25.7-33.7); MCHC 32.4 g/dl (32.0-36.0); MEAN CELL VOLUME 91.7 fl (80-96); MEAN PLT VOLUME 8.1 fl (7.5-11.1); PLATELET COUNT 245 10^3/uL (134-434); RBC 3.54 M/mm3 (3.60-5.2); RDW 17.2 % (11.6-15.6); WHITE BLOOD COUNT 11.3 K/mm3 (4.0-10.0)
[2023-01-15 10:06] LABS: POTASSIUM 3.6 mmol/L (3.5-5.1)
[2023-01-15] MEDS: ABACAVIR SULFATE 300 MG TABLET PO SCH (10:07)
[2023-01-15] MEDS: FAMOTIDINE 20 MG TABLET PO SCH (10:07)
[2023-01-15] MEDS: LORATADINE 10 MG TABLET PO SCH (10:07)
[2023-01-15] MEDS: HEPARIN NA (PORCINE) 5,000 UNITS/ML 1ML VIAL SQ SCH (10:07)
[2023-01-15] MEDS: LACTOBACILLUS ACIDOPHILUS 1 TABLET PO SCH (10:07)
[2023-01-15] MEDS: valACYclovir HCL 500 MG TABLET (FP) PO SCH (10:07)
[2023-01-15] MEDS: LIDOCAINE 5% TOPICAL PATCH TP SCH (10:08)
[2023-01-15] MEDS: VITAMIN B COMPLEX W/C COMBO TABLET (FP) PO SCH (10:08)
[2023-01-15] MEDS: DARUNAVIR 800 MG/COBICISTAT 150MG TABLET PO SCH (10:08)
[2023-01-15] MEDS: lamiVUDine 150 MG TABLET PO SCH (10:08)
[2023-01-15 10:09] LABS: BLOOD UREA NITROGEN 30.9 mg/dL (7-18); MAGNESIUM 1.9 mg/dL (1.8-2.4)
[2023-01-15 10:13] LABS: CREATININE 1.4 mg/dL (0.55-1.3); PHOSPHOROUS 3.5 mg/dL (2.5-4.9)
[2023-01-15 13:03] VITALS: BP 128/88; PULSE 76; RESP 18; TEMP 98.9
== END 2023-01-15 16:00 | disposition home or self-care (01) | DRG 191 ==
LOC: JER 08:34 → JERBED 12:29 → OBSVTOIN 13:40 → J6S 15:58
PROVIDERS: ADMIT Internal Medicine; ATTEND Internal Medicine
DX: J44.1 Chronic obstructive pulmonary disease with (acute) exacerbation (principal); B20 Human immunodeficiency virus [HIV] disease; E78.5 Hyperlipidemia, unspecified; K21.9 Gastro-esophageal reflux disease without esophagitis; K44.9 Diaphragmatic hernia without obstruction or gangrene; G62.89 Other specified polyneuropathies; I10 Essential (primary) hypertension; D64.9 Anemia, unspecified; K22.70 Barrett's esophagus without dysplasia; F43.10 Post-traumatic stress disorder, unspecified; R63.0 Anorexia; Z68.26 Body mass index [BMI] 26.0-26.9, adult; R91.8 Other nonspecific abnormal finding of lung field; M54.12 Radiculopathy, cervical region; F32.A Depression, unspecified
CPT/HCPCS: 0241U-QW; 36415; 71046-TC-FY; 80048; 80053; 82803; 83735; 84100; 84484; 85025; 85027; 87633; 93005; 93010; 94010; 94640; 94761; 97010-GP; 97110-GP; 99285-25; G0378; J1644

== ENCOUNTER 2023-02-20 17:04 | Inpatient (IN) | payer OTHER ==
[2023-02-20] MEDS ORDERED: methylPREDNISolone NA SUCC 125 MG/2 ML VIAL IVPB ONE (17:52)
[2023-02-20] MEDS ORDERED: ALBUTEROL SO4 2.5/IPRATROPIUM 0.5 INH SOL 3 ML VIAL.NEB. NEB ONE (18:08)
[2023-02-20] MEDS: ALBUTEROL SO4 2.5/IPRATROPIUM 0.5 INH SOL 3 ML VIAL.NEB. NEB SCH ×3 (18:12→18:57)
[2023-02-20] MEDS ORDERED: methylPREDNISolone NA SUCC 125 MG/2 ML VIAL ONE (19:12)
[2023-02-20 20:02] LABS: VENOUS BASE EXCESS -5.7 mmol/L (-2-2); VENOUS PCO2 46.2 mmHg (38-52); VENOUS PH 7.277 (7.310-7.410)
[2023-02-20 20:09] LABS: HEMATOCRIT 33.6 % (32.4-45.2); HEMOGLOBIN 10.9 GM/dL (10.7-15.3); MCHC 32.5 g/dl (32.0-36.0); MEAN CELL VOLUME 92.3 fl (80-96); MEAN PLT VOLUME 9.2 fl (7.5-11.1); PLATELET COUNT 315 10^3/uL (134-434); RBC 3.64 M/mm3 (3.60-5.2); RDW 17.7 % (11.6-15.6); WHITE BLOOD COUNT 24.1 K/mm3 (4.0-10.0)
[2023-02-20 20:27] LABS: CHLORIDE 104 mmol/L (98-107); SODIUM 138 mmol/L (136-145)
[2023-02-20 20:29] LABS: CALCIUM 9.3 mg/dL (8.5-10.1)
[2023-02-20 20:30] LABS: ALBUMIN 3.1 g/dl (3.4-5.0); BLOOD UREA NITROGEN 35.7 mg/dL (7-18); CO2 22 mmol/L (21-32); GLUCOSE,RANDOM 123 mg/dL (74-106); MAGNESIUM 2.1 mg/dL (1.8-2.4)
[2023-02-20 20:33] LABS: SGOT/AST 74 U/L (15-37); SGPT/ALT 20 U/L (13-61)
[2023-02-20 20:34] LABS: BILIRUBIN,TOTAL 0.6 mg/dL (0.2-1)
[2023-02-20 20:35] LABS: TOT PROT 8.8 g/dl (6.4-8.2)
[2023-02-20 20:36] LABS: ALK PHOS 162 U/L (45-117)
[2023-02-20 20:37] LABS: ANION GAP 11 MMOL/L (8-16); POTASSIUM 6.9 mmol/L (3.5-5.1)
[2023-02-20 20:38] LABS: N-TERMINAL BNP 167.7 pg/ml (5-125)
[2023-02-20] MEDS ORDERED: SODIUM CHLORIDE 0.9% 500 ML INFUS.BAG IV ONE (20:55)
[2023-02-20] MEDS ORDERED: oxyCODONE HCL 5 MG TABLET PO ONE (22:28)
[2023-02-20] MEDS ORDERED: ACETAMINOPHEN 325 MG TABLET (FP) PO ONE (22:29)
[2023-02-20] MEDS ORDERED: BACLOFEN 10 MG TABLET (FP) PO ONE (22:30)
[2023-02-20] MEDS ORDERED: GABAPENTIN 300 MG CAPSULE PO ONE (22:30)
[2023-02-20] MEDS ORDERED: GABAPENTIN 300 MG CAPSULE ONE (22:39)
[2023-02-20] MEDS ORDERED: BACLOFEN 10 MG TABLET (FP) ONE (22:39)
[2023-02-20] MEDS ORDERED: oxyCODONE HCL 5 MG TABLET ONE (22:39)
[2023-02-20] MEDS ORDERED: ACETAMINOPHEN 325 MG TABLET (FP) ONE (22:39)
[2023-02-20] MEDS ORDERED: SODIUM CHLORIDE 1,000 ML IV SCH (23:15)
[2023-02-21] MEDS: methylPREDNISolone NA SUCC 40 MG/1 ML VIAL IVPUSH SCH ×3 (03:29→17:48)
[2023-02-21] MEDS ORDERED: methylPREDNISolone NA SUCC 40 MG/1 ML VIAL ONE ×2 (03:31→08:15)
[2023-02-21] MEDS ORDERED: HEPARIN NA (PORCINE) 5,000 UNITS/ML 1ML VIAL SQ SCH (06:00)
[2023-02-21] MEDS ORDERED: HEPARIN NA (PORCINE) 5,000 UNITS/ML 1ML VIAL ONE (06:17)
[2023-02-21 06:38] LABS: EPI CELLS 12 /uL (0-25.1); HYALINE CASTS 1 /uL (0-3.1); URINE APPEARANCE CLEAR; URINE BACTERIA 108 /uL (0-1359); URINE BILIRUBIN NEGATIVE (NEGATIVE); URINE COLOR YELLOW; URINE GLUCOSE (UA) NEGATIVE (NEGATIVE); URINE KETONE NEGATIVE (NEGATIVE); URINE LEUK ESTERASE TRACE (NEGATIVE); URINE NITRITE NEGATIVE (NEGATIVE); URINE PROTEIN 1+ (NEGATIVE); URINE UROBILINOGEN 0.2 mg/dL (0.2-1.0); URINE WBC 24 /uL (0-25.8)
[2023-02-21] MEDS ORDERED: ALBUTEROL SO4 2.5/IPRATROPIUM 0.5 INH SOL 3 ML VIAL.NEB. NEB ONE ×2 (07:46→10:46)
[2023-02-21 08:03] LABS: BASO % 0.3 % (0-2.0); HEMATOCRIT 31.9 % (32.4-45.2); HEMOGLOBIN 10.2 GM/dL (10.7-15.3); MCHC 31.8 g/dl (32.0-36.0); MEAN CELL VOLUME 94.2 fl (80-96); MEAN PLT VOLUME 8.5 fl (7.5-11.1); MONO % 3.6 % (3.8-10.2); NEUT % 88.1 % (42.8-82.8); PLATELET COUNT 275 10^3/uL (134-434); RBC 3.39 M/mm3 (3.60-5.2)
[2023-02-21] MEDS: INSULIN SLIDING SCALE (NOVOLOG) 1 VIAL SQ SCH ×4 (08:03→22:17)
[2023-02-21] MEDS: ALBUTEROL SO4 2.5/IPRATROPIUM 0.5 INH SOL 3 ML VIAL.NEB. NEB SCH ×5 (08:05→20:21)
[2023-02-21 08:22] LABS: POTASSIUM 5.1 mmol/L (3.5-5.1)
[2023-02-21 08:25] LABS: ALBUMIN 2.9 g/dl (3.4-5.0); BLOOD UREA NITROGEN 33.2 mg/dL (7-18); CALCIUM 9.1 mg/dL (8.5-10.1); MAGNESIUM 2.4 mg/dL (1.8-2.4)
[2023-02-21 08:27] LABS: PHOSPHOROUS 3.4 mg/dL (2.5-4.9)
[2023-02-21 08:28] LABS: CREATININE 1.6 mg/dL (0.55-1.3)
[2023-02-21 08:29] LABS: BILIRUBIN,TOTAL 0.2 mg/dL (0.2-1)
[2023-02-21] MEDS ORDERED: BACLOFEN 10 MG TABLET (FP) PO PRN (09:42)
[2023-02-21] MEDS ORDERED: PATIENT'S OWN MEDICATION (NON-FORMULARY) (Oxycodone Hcl/Acetaminophen [Oxycodone-Acetamino PO PRN (09:42)
[2023-02-21] MEDS ORDERED: BUDESONIDE/FORMETEROL FUMARATE 80/4.5 mcg INHALER IH SCH (10:00)
[2023-02-21] MEDS ORDERED: ACETAMINOPHEN 325 MG TABLET (FP) PO PRN (10:30)
[2023-02-21] MEDS ORDERED: oxyCODONE HCL 5 MG TABLET PO PRN (10:30)
[2023-02-21] MEDS ORDERED: CITALOPRAM HYDROBROMIDE 10 MG TABLET ONE (10:46)
[2023-02-21] MEDS: CITALOPRAM HYDROBROMIDE 20 MG TABLET PO SCH ×2 (11:06→11:13)
[2023-02-21] MEDS ORDERED: BACLOFEN 10 MG TABLET (FP) ONE (11:19)
[2023-02-21] MEDS ORDERED: oxyCODONE HCL 5 MG TABLET ONE (11:20)
[2023-02-21] MEDS ORDERED: DARUNAVIR 800 MG/COBICISTAT 150MG TABLET PO SCH ×2 (11:30→14:30)
[2023-02-21 14:42] VITALS: BMI 22.8
[2023-02-21] MEDS: ABACAVIR SULFATE 300 MG TABLET PO SCH (14:57)
[2023-02-21] MEDS: lamiVUDine 150 MG TABLET PO SCH (14:57)
[2023-02-21] MEDS: HEPARIN NA (PORCINE) 5,000 UNITS/ML 1ML VIAL SQ SCH ×2 (15:10→22:22)
[2023-02-21 16:06] LABS: URINE RBC 80.3 /uL (0-23.9)
[2023-02-21] MEDS: oxyCODONE HCL 5 MG TABLET PO PRN (22:21)
[2023-02-21] MEDS: BACLOFEN 10 MG TABLET (FP) PO PRN (22:22)
[2023-02-22] MEDS: BUDESONIDE/FORMETEROL FUMARATE 80/4.5 mcg INHALER IH SCH ×3 (00:10→22:02)
[2023-02-22] MEDS: methylPREDNISolone NA SUCC 40 MG/1 ML VIAL IVPUSH SCH ×3 (01:21→15:12)
[2023-02-22] MEDS: HEPARIN NA (PORCINE) 5,000 UNITS/ML 1ML VIAL SQ SCH ×3 (06:38→21:57)
[2023-02-22] MEDS: INSULIN SLIDING SCALE (NOVOLOG) 1 VIAL SQ SCH ×4 (06:48→22:01)
[2023-02-22] MEDS: oxyCODONE HCL 5 MG TABLET PO PRN ×2 (06:49→15:05)
[2023-02-22] MEDS ORDERED: INSULIN (NOVOLOG) ASPART 100 UNITS/ML 10ML VIAL ONE (06:56)
[2023-02-22] MEDS ORDERED: INSULIN (LEVEMIR) 100 UNITS/ML UNITS SQ ONE (06:57)
[2023-02-22] MEDS: ALBUTEROL SO4 2.5/IPRATROPIUM 0.5 INH SOL 3 ML VIAL.NEB. NEB SCH ×4 (07:34→20:21)
[2023-02-22 08:39] LABS: BASO % 0.2 % (0-2.0); HEMOGLOBIN 10.6 GM/dL (10.7-15.3); LYMPH % 9.2 % (8-40); MCH 30.5 pg (25.7-33.7); MCHC 33.1 g/dl (32.0-36.0); MEAN CELL VOLUME 92.4 fl (80-96); MEAN PLT VOLUME 7.8 fl (7.5-11.1); MONO % 7.7 % (3.8-10.2); NEUT % 82.9 % (42.8-82.8); PLATELET COUNT 283 10^3/uL (134-434); RBC 3.46 M/mm3 (3.60-5.2); RDW 17.2 % (11.6-15.6); WHITE BLOOD COUNT 14.8 K/mm3 (4.0-10.0)
[2023-02-22 08:55] LABS: POTASSIUM 4.9 mmol/L (3.5-5.1)
[2023-02-22 09:01] LABS: BLOOD UREA NITROGEN 46.4 mg/dL (7-18); CALCIUM 9.2 mg/dL (8.5-10.1)
[2023-02-22 09:04] LABS: CREATININE 1.7 mg/dL (0.55-1.3)
[2023-02-22] MEDS: DARUNAVIR 800 MG/COBICISTAT 150MG TABLET PO SCH (10:00)
[2023-02-22] MEDS: lamiVUDine 150 MG TABLET PO SCH (10:00)
[2023-02-22] MEDS: CITALOPRAM HYDROBROMIDE 20 MG TABLET PO SCH (10:00)
[2023-02-22] MEDS: ABACAVIR SULFATE 300 MG TABLET PO SCH (11:00)
[2023-02-22] MEDS ORDERED: oxyCODONE HCL 5 MG TABLET PO ONE (17:37)
[2023-02-22] MEDS: BACLOFEN 10 MG TABLET (FP) PO PRN (17:48)
[2023-02-22] MEDS: ACETAMINOPHEN 325 MG TABLET (FP) PO PRN (21:57)
[2023-02-22] MEDS: GABAPENTIN 300 MG CAPSULE PO SCH (22:01)
[2023-02-23] MEDS: methylPREDNISolone NA SUCC 40 MG/1 ML VIAL IVPUSH SCH (02:34)
[2023-02-23] MEDS: HEPARIN NA (PORCINE) 5,000 UNITS/ML 1ML VIAL SQ SCH ×3 (05:49→21:45)
[2023-02-23] MEDS: GABAPENTIN 300 MG CAPSULE PO SCH ×3 (05:49→21:48)
[2023-02-23] MEDS: INSULIN SLIDING SCALE (NOVOLOG) 1 VIAL SQ SCH ×4 (06:01→22:05)
[2023-02-23] MEDS: ALBUTEROL SO4 2.5/IPRATROPIUM 0.5 INH SOL 3 ML VIAL.NEB. NEB SCH ×4 (07:10→20:55)
[2023-02-23] MEDS: CITALOPRAM HYDROBROMIDE 20 MG TABLET PO SCH (10:24)
[2023-02-23] MEDS: DARUNAVIR 800 MG/COBICISTAT 150MG TABLET PO SCH (10:25)
[2023-02-23] MEDS: BUDESONIDE/FORMETEROL FUMARATE 80/4.5 mcg INHALER IH SCH ×2 (10:25→22:06)
[2023-02-23] MEDS: ABACAVIR SULFATE 300 MG TABLET PO SCH (10:26)
[2023-02-23] MEDS: lamiVUDine 150 MG TABLET PO SCH (11:32)
[2023-02-23 13:01] LABS: HEMATOCRIT 33.6 % (32.4-45.2); MCHC 32.6 g/dl (32.0-36.0); MEAN PLT VOLUME 8.4 fl (7.5-11.1); PLATELET COUNT 309 10^3/uL (134-434); RBC 3.66 M/mm3 (3.60-5.2); RDW 17.5 % (11.6-15.6); WHITE BLOOD COUNT 14.2 K/mm3 (4.0-10.0)
[2023-02-23 13:17] LABS: POTASSIUM 4.5 mmol/L (3.5-5.1)
[2023-02-23 13:20] LABS: CALCIUM 9.4 mg/dL (8.5-10.1)
[2023-02-23 13:21] LABS: ALBUMIN 3.2 g/dl (3.4-5.0); BLOOD UREA NITROGEN 45.8 mg/dL (7-18)
[2023-02-23 13:24] LABS: CREATININE 1.8 mg/dL (0.55-1.3)
[2023-02-23 13:25] LABS: BILIRUBIN,TOTAL 0.2 mg/dL (0.2-1); TOT PROT 8.4 g/dl (6.4-8.2)
[2023-02-23 13:44] LABS: ANISOCYTOSIS 1+; MACROCYTOSIS 0
[2023-02-23] MEDS: BACLOFEN 10 MG TABLET (FP) PO PRN ×2 (15:26→21:52)
[2023-02-23] MEDS ORDERED: INSULIN (NOVOLOG) ASPART 100 UNITS/ML 10ML VIAL ONE (21:13)
[2023-02-23] MEDS: oxyCODONE HCL 5 MG TABLET PO PRN (21:52)
[2023-02-24] MEDS: HEPARIN NA (PORCINE) 5,000 UNITS/ML 1ML VIAL SQ SCH ×3 (06:59→21:40)
[2023-02-24] MEDS: INSULIN SLIDING SCALE (NOVOLOG) 1 VIAL SQ SCH ×4 (07:01→21:43)
[2023-02-24] MEDS: GABAPENTIN 300 MG CAPSULE PO SCH ×3 (07:01→21:43)
[2023-02-24 08:46] LABS: HEMATOCRIT 31.5 % (32.4-45.2); HEMOGLOBIN 10.1 GM/dL (10.7-15.3); MCH 29.5 pg (25.7-33.7); MCHC 32.1 g/dl (32.0-36.0); MEAN CELL VOLUME 91.9 fl (80-96); MEAN PLT VOLUME 8.1 fl (7.5-11.1); PLATELET COUNT 270 10^3/uL (134-434); RBC 3.42 M/mm3 (3.60-5.2); RDW 17.1 % (11.6-15.6); WHITE BLOOD COUNT 13.7 K/mm3 (4.0-10.0)
[2023-02-24 09:03] LABS: POTASSIUM 4.9 mmol/L (3.5-5.1)
[2023-02-24 09:04] LABS: CALCIUM 8.6 mg/dL (8.5-10.1)
[2023-02-24 09:05] LABS: BLOOD UREA NITROGEN 40.7 mg/dL (7-18)
[2023-02-24 09:08] LABS: CREATININE 1.4 mg/dL (0.55-1.3)
[2023-02-24] MEDS: ALBUTEROL SO4 2.5/IPRATROPIUM 0.5 INH SOL 3 ML VIAL.NEB. NEB SCH ×4 (09:30→20:30)
[2023-02-24] MEDS: CITALOPRAM HYDROBROMIDE 20 MG TABLET PO SCH (10:00)
[2023-02-24] MEDS: DARUNAVIR 800 MG/COBICISTAT 150MG TABLET PO SCH (10:00)
[2023-02-24] MEDS: lamiVUDine 150 MG TABLET PO SCH (10:00)
[2023-02-24] MEDS: predniSONE 20 MG TABLET (UD) PO SCH (10:00)
[2023-02-24] MEDS: ABACAVIR SULFATE 300 MG TABLET PO SCH (10:01)
[2023-02-24] MEDS: BUDESONIDE/FORMETEROL FUMARATE 80/4.5 mcg INHALER IH SCH ×2 (10:42→22:02)
[2023-02-24] MEDS ORDERED: INSULIN (NOVOLOG) ASPART 100 UNITS/ML 10ML VIAL ONE ×2 (11:30→21:03)
[2023-02-24 14:12] VITALS: RESP 18
[2023-02-24] MEDS: ACETAMINOPHEN 325 MG TABLET (FP) PO PRN (22:02)
[2023-02-24] MEDS: oxyCODONE HCL 5 MG TABLET PO ONE ×2 (22:02→22:10)
[2023-02-24] MEDS: oxyCODONE HCL 5 MG TABLET PO PRN (22:13)
[2023-02-25] MEDS: HEPARIN NA (PORCINE) 5,000 UNITS/ML 1ML VIAL SQ SCH (05:41)
[2023-02-25] MEDS: GABAPENTIN 300 MG CAPSULE PO SCH (05:44)
[2023-02-25] MEDS: INSULIN SLIDING SCALE (NOVOLOG) 1 VIAL SQ SCH ×2 (06:12→10:35)
[2023-02-25] MEDS ORDERED: INSULIN (NOVOLOG) ASPART 100 UNITS/ML 10ML VIAL ONE (07:21)
[2023-02-25] MEDS ORDERED: INSULIN (LEVEMIR) 100 UNITS/ML UNITS SQ ONE (07:21)
[2023-02-25] MEDS: ALBUTEROL SO4 2.5/IPRATROPIUM 0.5 INH SOL 3 ML VIAL.NEB. NEB SCH ×2 (08:21→11:51)
[2023-02-25 08:46] VITALS: BP 135/83; TEMP 96.3
[2023-02-25] MEDS: lamiVUDine 150 MG TABLET PO SCH (09:11)
[2023-02-25] MEDS: CITALOPRAM HYDROBROMIDE 20 MG TABLET PO SCH (09:11)
[2023-02-25] MEDS: predniSONE 20 MG TABLET (UD) PO SCH (09:11)
[2023-02-25 09:12] LABS: HEMATOCRIT 30.9 % (32.4-45.2); HEMOGLOBIN 10.2 GM/dL (10.7-15.3); MCH 30.3 pg (25.7-33.7); MCHC 33.1 g/dl (32.0-36.0); MEAN CELL VOLUME 91.5 fl (80-96); MEAN PLT VOLUME 7.9 fl (7.5-11.1); PLATELET COUNT 257 10^3/uL (134-434); RBC 3.38 M/mm3 (3.60-5.2); WHITE BLOOD COUNT 12.8 K/mm3 (4.0-10.0)
[2023-02-25] MEDS: ABACAVIR SULFATE 300 MG TABLET PO SCH (09:12)
[2023-02-25] MEDS: DARUNAVIR 800 MG/COBICISTAT 150MG TABLET PO SCH (09:12)
[2023-02-25] MEDS: BUDESONIDE/FORMETEROL FUMARATE 80/4.5 mcg INHALER IH SCH (09:14)
[2023-02-25 09:27] LABS: POTASSIUM 4.5 mmol/L (3.5-5.1)
[2023-02-25 09:30] LABS: CALCIUM 8.4 mg/dL (8.5-10.1)
[2023-02-25 09:31] LABS: MAGNESIUM 2.2 mg/dL (1.8-2.4)
[2023-02-25 09:33] LABS: BLOOD UREA NITROGEN 34.4 mg/dL (7-18); PHOSPHOROUS 3.2 mg/dL (2.5-4.9)
[2023-02-25 09:36] LABS: CREATININE 1.3 mg/dL (0.55-1.3)
[2023-02-25 11:54] VITALS: PULSE 90
[2023-02-26 13:09] LABS: TOTAL PROTEIN, URINE 29.2 mg/dL (Not Estab.)
== END 2023-02-25 14:19 | disposition home or self-care (01) | DRG 974 ==
LOC: JER 17:04 → JERBED 20:47 → OBSVTOIN 23:12 → J6S 02-21 12:50
PROVIDERS: ADMIT Internal Medicine; ATTEND Internal Medicine
DX: A41.89 Other specified sepsis (principal); J96.01 Acute respiratory failure with hypoxia; B20 Human immunodeficiency virus [HIV] disease; J18.9 Pneumonia, unspecified organism; J44.0 Chronic obstructive pulmonary disease with (acute) lower respiratory infection; N17.9 Acute kidney failure, unspecified; J44.1 Chronic obstructive pulmonary disease with (acute) exacerbation; K21.9 Gastro-esophageal reflux disease without esophagitis; F41.8 Other specified anxiety disorders; G47.00 Insomnia, unspecified; F43.10 Post-traumatic stress disorder, unspecified; R00.0 Tachycardia, unspecified; E11.42 Type 2 diabetes mellitus with diabetic polyneuropathy; K44.9 Diaphragmatic hernia without obstruction or gangrene; R79.89 Other specified abnormal findings of blood chemistry; Z88.0 Allergy status to penicillin; I12.9 Hypertensive chronic kidney disease with stage 1 through stage 4 chronic kidney disease, or unspecified chronic kidney disease; E11.22 Type 2 diabetes mellitus with diabetic chronic kidney disease; N18.9 Chronic kidney disease, unspecified; E11.65 Type 2 diabetes mellitus with hyperglycemia; D72.829 Elevated white blood cell count, unspecified; G89.29 Other chronic pain; E11.51 Type 2 diabetes mellitus with diabetic peripheral angiopathy without gangrene; R63.0 Anorexia; Z68.22 Body mass index [BMI] 22.0-22.9, adult
CPT/HCPCS: 0241U-QW; 36415; 71046-TC-FY; 76700-TC; 76856-TC; 80048; 80053; 81003; 82043; 82272; 82550; 82570; 82607; 82728; 82746; 82803; 82962; 83036; 83540; 83550; 83735; 83880; 84100; 84132; 84156; 84157; 84484; 85025; 85027; 85045; 86704; 86803; 87040; 87070; 87077; 87205; 87340; 87517; 87899; 93005; 93010; 94640; 94761; 97010-GP; 97110-GP; 99285-25; G0378; G0463-25; J0475

== ENCOUNTER 2023-09-27 16:24 | Observation (INO) | payer OTHER ==
[2023-09-27 16:44] VITALS: BMI 21.4
[2023-09-27] MEDS ORDERED: BACLOFEN 10 MG TABLET (FP) PO ONE (17:18)
[2023-09-27] MEDS ORDERED: BACLOFEN 10 MG TABLET (FP) ONE (17:37)
[2023-09-27] MEDS ORDERED: SODIUM CHLORIDE 0.9% 500 ML INFUS.BAG IV ONE (19:01)
[2023-09-27] MEDS ORDERED: DEXAMETHASONE SOD PHOSPHATE 10 MG/1 ML VIAL IVPUSH ONE (19:06)
[2023-09-27] MEDS ORDERED: DEXAMETHASONE SOD PHOSPHATE 10 MG/1 ML VIAL ONE (20:42)
[2023-09-27 21:06] LABS: BASO % 0.7 % (0-2.0); EOS % 1.6 % (0-4.5); HEMATOCRIT 33.7 % (32.4-45.2); HEMOGLOBIN 10.8 GM/dL (10.7-15.3); LYMPH % 42.7 % (8-40); MCH 28.1 pg (25.7-33.7); MEAN CELL VOLUME 87.8 fl (80-96); MEAN PLT VOLUME 7.7 fl (7.5-11.1); MONO % 11.2 % (3.8-10.2); NEUT % 43.8 % (42.8-82.8); PLATELET COUNT 285 10^3/uL (134-434); RBC 3.84 M/mm3 (3.60-5.2); RDW 15.4 % (11.6-15.6)
[2023-09-27] MEDS ORDERED: LIDOCAINE 4% PATCH TP PRN ×2 (21:47→23:12)
[2023-09-27] MEDS ORDERED: PATIENT'S OWN MEDICATION (NON-FORMULARY) (Oxycodone Hcl/Acetaminophen [Oxycodone-Acetamino PO PRN (21:48)
[2023-09-27 21:59] LABS: POTASSIUM 5.3 mmol/L (3.5-5.1)
[2023-09-27 22:00] LABS: CALCIUM 8.7 mg/dL (8.5-10.1)
[2023-09-27] MEDS ORDERED: LIDOCAINE PATCH REMOVAL MC SCH (22:00)
[2023-09-27 22:04] LABS: CREATININE 1.1 mg/dL (0.55-1.3)
[2023-09-27] MEDS ORDERED: ACETAMINOPHEN 325 MG TABLET (FP) PO PRN (23:13)
[2023-09-28] MEDS ORDERED: GABAPENTIN 300 MG CAPSULE ONE ×2 (00:24→06:57)
[2023-09-28] MEDS ORDERED: valACYclovir HCL 500 MG TABLET (FP) ONE (00:24)
[2023-09-28] MEDS: GABAPENTIN 300 MG CAPSULE PO SCH ×3 (00:29→14:28)
[2023-09-28] MEDS: valACYclovir HCL 500 MG TABLET (FP) PO SCH ×2 (00:29→10:27)
[2023-09-28] MEDS: oxyCODONE HCL 5 MG TABLET PO PRN ×2 (00:30→10:34)
[2023-09-28] MEDS ORDERED: ACETAMINOPHEN 325 MG TABLET (FP) ONE (00:31)
[2023-09-28] MEDS ORDERED: oxyCODONE HCL 5 MG TABLET ONE ×2 (00:31→10:31)
[2023-09-28] MEDS ORDERED: ACETAMINOPHEN 325 MG TABLET (FP) PO PRN (03:11)
[2023-09-28 07:28] LABS: BASO % 0.5 % (0-2.0); HEMATOCRIT 32.8 % (32.4-45.2); HEMOGLOBIN 10.6 GM/dL (10.7-15.3); MCH 28.6 pg (25.7-33.7); MCHC 32.2 g/dl (32.0-36.0); MEAN CELL VOLUME 88.9 fl (80-96); MEAN PLT VOLUME 7.9 fl (7.5-11.1); MONO % 1.4 % (3.8-10.2); NEUT % 77.1 % (42.8-82.8); PLATELET COUNT 299 10^3/uL (134-434); RBC 3.69 M/mm3 (3.60-5.2); RDW 15.5 % (11.6-15.6); WHITE BLOOD COUNT 4.7 K/mm3 (4.0-10.0)
[2023-09-28] MEDS ORDERED: ACETAMINOPHEN 500 MG TABLET (FP) PO SCH (07:43)
[2023-09-28] MEDS ORDERED: DARUNAVIR 800 MG/COBICISTAT 150MG TABLET PO SCH (10:00)
[2023-09-28] MEDS ORDERED: ENOXAPARIN NA (PORCINE) 40 MG/0.4 ML DISP.SYRIN SQ SCH (10:00)
[2023-09-28] MEDS ORDERED: ABACAVIR SULFATE 300 MG TABLET PO SCH (10:00)
[2023-09-28] MEDS ORDERED: PATIENT'S OWN MEDICATION (NON-FORMULARY) (Abacavir Sulfate/Lamivudine [Abacavir-Lamivudine PO SCH (10:00)
[2023-09-28] MEDS ORDERED: lamiVUDine 150 MG TABLET PO SCH (10:00)
[2023-09-28] MEDS ORDERED: NICOTINE 7 MG/24 HOURS TOPICAL PATCH TD SCH (10:00)
[2023-09-28 10:21] LABS: MAGNESIUM 2.2 mg/dL (1.8-2.4)
[2023-09-28 10:24] LABS: PHOSPHOROUS 4.4 mg/dL (2.5-4.9)
[2023-09-28] MEDS ORDERED: ACETAMINOPHEN 500 MG TABLET (FP) ONE (14:22)
[2023-09-28 17:33] VITALS: BP 104/71; PULSE 68; RESP 19; TEMP 98.1
== END 2023-09-28 17:34 | disposition home or self-care (01) ==
LOC: JER 16:24 → JERBED 19:01
PROVIDERS: ADMIT Internal Medicine; ATTEND Nurse Practitioner Family
PROC: 3E033GC Introduction of Other Therapeutic Substance into Peripheral Vein, Percutaneous Approach (ICD-10-PCS; principal; 2023-09-27)
DX: M62.81 Muscle weakness (generalized) (principal); M54.50 Low back pain, unspecified; G89.29 Other chronic pain; D64.9 Anemia, unspecified; K76.0 Fatty (change of) liver, not elsewhere classified; B20 Human immunodeficiency virus [HIV] disease; J45.909 Unspecified asthma, uncomplicated; K21.9 Gastro-esophageal reflux disease without esophagitis; R63.0 Anorexia; E78.00 Pure hypercholesterolemia, unspecified; F41.8 Other specified anxiety disorders; Z88.0 Allergy status to penicillin
CPT/HCPCS: 36415; 72131-TC; 72192-TC; 73502-TC-LT-FY; 80048; 83735; 84100; 85025; 93005; 93010; 96374; 97116-GP; 97161-GP; 99285-25; G0378; J0475; J1100

== ENCOUNTER 2024-06-03 16:51 | Emergency (ER) | payer OTHER ==
[2024-06-03 16:58] VITALS: BP 158/94; PULSE 86; RESP 18; TEMP 98.3; BMI 23.8
[2024-06-03] MEDS ORDERED: ACETAMINOPHEN 500 MG TABLET (FP) ONE (17:40)
[2024-06-03] MEDS: ACETAMINOPHEN 500 MG TABLET (FP) PO ONE (18:02)
== END 2024-06-03 20:51 | disposition home or self-care (01) ==
LOC: JER 16:51 → JERFT 16:51
DX: M79.601 Pain in right arm (principal); M25.561 Pain in right knee; R51.9 Headache, unspecified; W18.30XA Fall on same level, unspecified, initial encounter
CPT/HCPCS: 70450-TC; 72125-TC; 72128-TC; 73060-TC-RT-FY; 73564-TC-RT-FY; 99284-25

== ENCOUNTER 2024-08-19 04:52 | Day surgery (SDC) | payer OTHER ==
[2024-08-17 09:47] VITALS: BMI 20.9
[2024-08-19] MEDS ORDERED: BUPIVACAINE HCL/PF 0.25% (2.5MG/ML) 10 ML VIAL ONE (07:26)
[2024-08-19] MEDS ORDERED: BUPIVACAINE HCL/PF 0.5% (5MG/ML) 10 ML VIAL ONE (07:26)
[2024-08-19] MEDS ORDERED: TRIAMCINOLONE ACET 40MG/1ML VIAL ONE (07:26)
[2024-08-19] MEDS ORDERED: LIDOCAINE HCL/PF 1% SDV 5ML VIAL ONE (07:26)
[2024-08-19] MEDS ORDERED: ACETAMINOPHEN 500 MG TABLET (FP) PO PRN (13:00)
[2024-08-19 15:14] VITALS: BP 131/80; PULSE 69; RESP 18; TEMP 97.3
== END 2024-08-19 15:20 | disposition home or self-care (01) ==
LOC: JASU-SURG 04:52
PROVIDERS: ATTEND Pain Medicine Pain Medicine
PROC: 3E0U3BZ Introduction of Anesthetic Agent into Joints, Percutaneous Approach (ICD-10-PCS; 2024-08-19)
PROC: 3E0U33Z Introduction of Anti-inflammatory into Joints, Percutaneous Approach (ICD-10-PCS; principal; 2024-08-19 14:33)
DX: M16.12 Unilateral primary osteoarthritis, left hip (principal)
CPT/HCPCS: 76000-TC-FY

== ENCOUNTER 2024-09-15 04:52 | Day surgery (SDC) | payer OTHER ==
[2024-09-12 13:48] VITALS: BMI 21.5
[2024-09-15] MEDS ORDERED: ACETAMINOPHEN 500 MG TABLET (FP) PO PRN (09:07)
[2024-09-15 14:26] VITALS: RESP 18; TEMP 97.8
[2024-09-15] MEDS: LIDOCAINE HCL 1% PRESERVATIVE FREE - 30ML VIAL IJ ONE (15:11)
[2024-09-15] MEDS: IOHEXOL 180 MG/1 ML ML IJ ONE (15:13)
[2024-09-15] MEDS: TRIAMCINOLONE ACET 40MG/1ML VIAL IJ ONE (15:16)
[2024-09-15] MEDS: BUPIVACAINE HCL/PF 0.5% (5MG/ML) 10 ML VIAL IJ ONE (15:16)
[2024-09-15 17:01] VITALS: BP 117/66; PULSE 73
== END 2024-09-15 16:30 | disposition home or self-care (01) ==
LOC: JASU-SURG 04:52
PROVIDERS: ATTEND Pain Medicine Pain Medicine
PROC: 3E0U3BZ Introduction of Anesthetic Agent into Joints, Percutaneous Approach (ICD-10-PCS; 2024-09-15)
PROC: 3E0U33Z Introduction of Anti-inflammatory into Joints, Percutaneous Approach (ICD-10-PCS; principal; 2024-09-15 15:15)
DX: M53.3 Sacrococcygeal disorders, not elsewhere classified (principal)
CPT/HCPCS: 76000-TC-FY